=== PATIENT | male | born 1955 | race Caucasian/White ===

== ENCOUNTER → 2017-01-14 | Outpatient (CLI) | payer BC ==
--- NOTE | 2017-01-14 11:40 | MR ---
MR lumbar spine wo/w con multiple myeloma , back pain MultiHance Multiplanar, multiecho imaging of the lumbar spine was obtained with and without intravenous administ ration of 15 cc of MultiHance on a 3 Kelly magnet. REFERENCE: Previous study dated 04/28/2016. FINDINGS: Prevertebral soft tissues are normal. There is a severe wedge compression fracture of T11, unchanged from previous. There is a wedge compre ssion fracture of L1 which is wedged by approximately 50% and unchanged from previous. There is an in ferior endplate infraction of L4 and this is also unchanged from previous. There is approximately 5.4 mm of retropulsion at T11. No other retropulsion is seen. There are mild retrograde listhesis of L1 on L2 and L4-L5. Alignment is otherwise maintained. Cord signal is maintained. The conus ends normally at the level of the L1-2 disc. At T12-L1, the intervertebral foramina are well maintained. There is no significant compressive disco michael. There is mild degenerative change in the facets. At L1-2, the intervertebral foramina are well maintained. There is a diffuse disc displacement. This hypertrophic change and capsulitis within the facets. At L2-3, there is a diffuse disc displacement. There is mild, bilateral intervertebral foraminal narr owing. There is hypertrophic change and capsulitis within the facets. There is mild trefoiling of the thecal sac. At L3-4, there is mild, bilateral intervertebral foraminal narrowing. There is a diffuse disc displac ement. There is hypertrophic change and capsulitis within the facets. There is mild trefoiling of the thecal sac. At L4-5, there is a broad-based disc protrusion extending into both intervertebral foramina causing m oderate intervertebral foraminal narrowing bilaterally. There is hypertrophic change in the facets. T here is moderate central canal compromise. At L5-S1, the intervertebral foramina appear well maintained. There is a diffuse disc displacement wi th a small central component mildly deforming the thecal sac without definite neural compression. The re is hypertrophic change and capsulitis within the facets. IMPRESSION: 1. STABLE WEDGE COMPRESSION FRACTURES DESCRIBED. THERE IS NO ABNORMAL ENHANCEMENT IN THESE VERTEBR AL BODIES. 2. DIFFUSE DEGENERATIVE DISC DISEASE AND FACET ARTHROPATHY. 3. VARYING DEGREES OF CENTRAL CANAL COMPROMISE MOST MARKED AT L4-5. 4. MULTILEVEL INTERVERTEBRAL FORAMINAL NARROWING.
== END | disposition home or self-care (01) ==
LOC: RADMRIMAIN 07:53
PROVIDERS: ATTEND Internal Medicine Hematology & Oncology
DX: S32.010A Wedge compression fracture of first lumbar vertebra, initial encounter for closed fracture (principal); C90.00 Multiple myeloma not having achieved remission; M51.36 Other intervertebral disc degeneration, lumbar region; M99.73 Connective tissue and disc stenosis of intervertebral foramina of lumbar region; M46.96 Unspecified inflammatory spondylopathy, lumbar region
CPT/HCPCS: 72158; A9577

== ENCOUNTER → 2017-02-24 | Outpatient (CLI) | payer BC ==
--- NOTE | 2017-03-04 15:19 | P.ARTDOP ---
Arterial Doppler LOWER EXTREMITY ARTERIAL DOPPLER: DATE OF SERVICE: 02/24/2017 Reason for study: Right leg pain. Doppler waveforms: Multiphasic bilaterally throughout. Pulse volume recording: Normal configuration. Pressure gradients: None significant. Ankle-brachial indices: Greater than 1 on the right and one on the left. Toe pressures: 83 on the right, 83 on the left Impression: Normal study.
== END | disposition home or self-care (01) ==
LOC: RADUSWWP 13:03
PROVIDERS: ATTEND Internal Medicine Infectious Disease
DX: M79.604 Pain in right leg (principal)
CPT/HCPCS: 93923

== ENCOUNTER → 2017-03-05 | Outpatient (CLI) | payer BC ==
--- NOTE | 2017-03-05 20:56 | MR ---
EXAMINATION TYPE: MR thoracic spine wo con DATE OF EXAM: 03/05/2017 5:58 PM COMPARISON: 04/28/2016 HISTORY: Multiple Myeloma 2015, Upper Back and Middle Back Pain 1 year Multiplanar MultiSpin echo imaging of the thoracic spine was performed. Vertebral segments: Severe T11 at the logic compression fracture is again noted and appears essentially unchanged. Loss o f vertebral body height is greater than 90%. Mild bony retropulsion is again seen and is stable at 4 mm. Mild superior endplate compression fracture of T7 is unchanged with loss of height less than and 15%. Stable moderate L1 compression fracture. No evidence of bony retropulsion identified. Bone marro w signal is heterogenous throughout. There are lesions in noted the largest of which is seen at the T 9 segment and appears unchanged. No definite disease progression is identified with certainty at this time. Disc spaces: Moderate decreased signal and loss of height at multiple levels. No disc herniation or p rotrusion. Mild scattered disc bulging. No evidence for spinal stenosis. Spinal canal: No evidence for canal stenosis. No intrinsic or extrinsic lesion. Thoracic spinal cord: Thoracic spinal cord is of normal caliber and signal. Paraspinal soft tissues: No evidence for paraspinal mass. No destructive lesions seen. IMPRESSION: 1. Stable pathologic compression fractures at T11, T7 and L1. 2. Stable scattered lesions compatible with the provided history of multiple myeloma.
== END | disposition home or self-care (01) ==
LOC: RADMRIMAIN 17:13
PROVIDERS: ATTEND Orthopaedic Surgery
DX: S22.060A Wedge compression fracture of T7-T8 vertebra, initial encounter for closed fracture (principal); S22.080A Wedge compression fracture of T11-T12 vertebra, initial encounter for closed fracture; M89.8X0 Other specified disorders of bone, multiple sites
CPT/HCPCS: 72146

== ENCOUNTER 2018-03-08 20:41 | Inpatient (IN) | payer BC ==
[2018-03-08] MEDS ORDERED: NITROGLYCERIN OINT 1 INCH/GM PACKET TOPICAL STA (21:05)
[2018-03-08] MEDS ORDERED: ASPIRIN 81 MG PO STA (21:05)
[2018-03-08] MEDS ORDERED: SODIUM CHLORIDE 0.9% 1,000 ML IV STA (21:05)
[2018-03-08] MEDS ORDERED: MAG HYDROX/AL HYDROX/SIMETH 30 ML, HYOSCYAMINE ELIXIR 10 ML, CIMETIDINE HCL 300 MG, LID... PO STA ×4 (21:06)
[2018-03-08 21:25] LABS: Basophils % (A) 1 %; Eosinophils # (A) 0.4 k/uL (0-0.7); Eosinophils % (A) 9 %; HCT 34.4 % (39.0-53.0); HGB 11.1 gm/dL (13.0-17.5); Lymphocytes # (A) 1.6 k/uL (1.0-4.8); Lymphocytes % (A) 42 %; MCH 28.3 pg (25.0-35.0); MCHC 32.3 g/dL (31.0-37.0); MCV 87.5 fL (80.0-100.0); Mean Platelet Volume 7.3; Monocytes # (A) 0.3 k/uL (0-1.0); Monocytes % (A) 8 %; Neutrophils # (A) 1.5 k/uL (1.3-7.7); Neutrophils % (A) 39 %; Platelet Count 126 k/uL (150-450); RBC 3.93 m/uL (4.30-5.90); RDW 15.8 % (11.5-15.5); WBC 3.9 k/uL (3.8-10.6)
--- NOTE | 2018-03-08 21:29 | XR ---
EXAMINATION TYPE: XR chest 2V DATE OF EXAM: 03/08/2018 COMPARISON: 07/15/2016 HISTORY: Chest pain TECHNIQUE: Frontal and lateral views of the chest are obtained. FINDINGS: Heart and mediastinum are within normal limits. Lungs are clear. Diaphragm is normal. Ther e is anterior wedging of T11 vertebra with 50% loss of height. IMPRESSION: No active cardiopulmonary disease. Old T11 compression fracture. No change.
[2018-03-08 21:34] LABS: ALT 45 U/L (21-72); AST 73 U/L (17-59); Albumin 3.2 g/dL (3.5-5.0); Alkaline Phosphatase 70 U/L (38-126); Amylase 47 U/L (30-110); Anion Gap 10 mmol/L; Blood Urea Nitrogen 15 mg/dL (9-20); Calcium 8.2 mg/dL (8.4-10.2); Carbon Dioxide 26 mmol/L (22-30); Chloride 103 mmol/L (98-107); Glucose 100 mg/dL (74-99); Lipase 115 U/L (23-300); Magnesium 1.9 mg/dL (1.6-2.3); Potassium 3.3 mmol/L (3.5-5.1); Sodium 139 mmol/L (137-145); Total Bilirubin 0.7 mg/dL (0.2-1.3); Total Protein 5.3 g/dL (6.3-8.2)
--- NOTE | 2018-03-08 21:37 | ED ---
Chest Pain HPI - General Chief Complaint: Chest Pain Stated Complaint: Chest Pain Time Seen by Provider: 03/08/18 20:56 Source: patient Mode of arrival: ambulatory Limitations: no limitations - History of Present Illness Initial Comments: This 61-year-old white male presents with a complaint of some lower sternal chest/upper abdominal pain. He states that it is pressure-like in nature. He states that it just came on shortly prior to arrival. He relates to the nurses that he had some difficulty in breathing but denies any to myself. He denies any cough or fever. He denies any leg pain or swelling. He denies any history of DVT or PE. He denies any history of cardiac disease or myocardial infarction. He does relate that he has a history of multiple myeloma which is currently in remission. He did have a bone marrow transplant in the past. He sees Dr. Browning for this. He denies any other complaints or modifying factors. There is no radiation of the pain. - Related Data Home Medications Medication Instructions Recorded Confirmed Aspirin 325 mg PO DAILY 04/03/16 03/08/18 Calcium Carbonate [Calcium] 600 mg PO DAILY 07/23/16 03/08/18 Lenalidomide [Revlimid] 5 mg PO DAILY 02/05/17 03/08/18 oxyCODONE HCL [Oxyir] 5 mg PO Q6H PRN 02/05/17 03/08/18 Potassium Bicarbonate/Cit AC 25 meq PO TID 03/08/18 03/08/18 [Klor-Con 25 (Effer. Tab)] Allergies Allergy/AdvReac Type Severity Reaction Status Date / Time sulfamethoxazole AdvReac Rash/Hives Verified 03/08/18 21:17 [From Bactrim] trimethoprim [From Bactrim] AdvReac Rash/Hives Verified 03/08/18 21:17 Review of Systems ROS Statement: Those systems with pertinent positive or pertinent negative responses have been documented in the HPI. ROS Other: All systems not noted in ROS Statement are negative. Past Medical History Past Medical History: Cancer, Hyperlipidemia Additional Past Medical History / Comment(s): Hx. vertebral stress fx. shingles 2013, multiple myeloma-dx. 2015 finished chem jul 2016, stem cell transplant 09/03, wound rt heel History of Any Multi-Drug Resistant Organisms: None Reported Past Surgical History: Orthopedic Surgery Additional Past Surgical History / Comment(s): excision of uvular lesion(benign ) 2010, colonoscopy, dave knee arthroscopy, rt rotator cuff sx, moles removed from back(benign) Past Anesthesia/Blood Transfusion Reactions: No Reported Reaction Past Psychological History: No Psychological Hx Reported Smoking Status: Former smoker Past Alcohol Use History: None Reported Past Drug Use History: None Reported - Past Family History Father Family Medical History: Renal Disease Additional Family Medical History / Comment(s): aaa, Mother Family Medical History: No Reported History Additional Family Medical History / Comment(s): mom is healthy General Exam - General Exam Comments Initial Comments: GENERAL: The patient is well nourished and well hydrated. VITAL SIGNS: Heart rate, blood pressure, respiratory rate reviewed as recorded in nurse's notes. EYES: Pupils are round and reactive. Extraocular movements are intact. No conjunctival / lid redness or swelling. ENT: No external evidence of injury, swelling, or ecchymosis. Airway is patent. Throat is clear. NECK: Nontender. No swelling or evidence of injury. No subcutaneous emphysema. Trachea is midline. No thyroid mass. HEART: Regular rate and rhythm. Good peripheral pulses. LUNGS/CHEST: Breath sounds clear and equal bilaterally. No rales, rhonchi, or wheezes. No ecchymosis, subcutaneous emphysema, or tenderness. ABDOMEN: There is mild tenderness noted into the midepigastric region. No palpable masses or organomegaly. No peritoneal signs. No abdominal wall swelling or ecchymosis. EXTREMITIES: No extremity tenderness. Normal muscle tone and function. No thoracolumbar tenderness. NEUROLOGIC: Sensation is grossly intact. Cranial nerve exam reveals face is symmetrical, tongue is midline, speech is clear. SKIN: No abrasions or ecchymosis is noted. No induration or masses noted. PSYCHIATRIC: Alert and oriented. Appropriate behavior and judgment. Limitations: no limitations Course Vital Signs 03/08/18 03/08/18 03/08/18 20:42 21:21 21:32 Temperature 98.1 F Pulse Rate 91 50 L Respiratory 20 18 18 Rate Blood Pressure 128/70 126/76 O2 Sat by Pulse 100 Oximetry 03/08/18 03/08/18 22:48 23:36 Temperature Pulse Rate 52 L 55 L Respiratory 18 18 Rate Blood Pressure 139/68 126/75 O2 Sat by Pulse 99 100 Oximetry Chest Pain MDM - MDM The patient was seen and examined. All diagnostics are reviewed. An IV is established. He does have an EKG completed which shows a sinus bradycardia at a rate of 56. There is no acute ST elevation. There is some nonspecific ST-T wave changes in the anterolateral leads. There is a MI interval of 220, QRS duration of 90, and QTc interval 465. He does receive aspirin as well as some Nitropaste. The laboratory showed a mild hypokalemia and elevation of the d- dimer. The chest x-ray did not show any acute processes. The patient had a computed tomography scan of the thorax which did show some atelectasis but no evidence of pulmonary embolism. Is felt as though his current pain symptoms are much improved on recheck. Nevertheless, it is felt as though he would require admission to the hospital for further evaluation to rule out the possibility of acute coronary syndrome. Case will be discussed with internal medicine shortly. He will be admitted to Dr. Ferro as he has been admitted to him several times in the past. Disposition Clinical Impression: Chest pain, Midepigastric pain, History of multiple myeloma, Unstable angina pectoris, Atelectasis, Hypokalemia Disposition: ADMITTED IP TO THIS HOSP Condition: Fair Is patient prescribed a controlled substance at d/c from ED?: No Time of Disposition: 23:50 Decision Date: 03/08/18 Decision Time: 23:50
[2018-03-08 21:44] LABS: Creatine Kinase 126 U/L (55-170)
[2018-03-08 21:45] LABS: Partial Thromboplastin Time 24.9 sec (22.0-30.0)
[2018-03-08 21:53] LABS: D-Dimer 1.12 mg/L FEU (<0.60)
[2018-03-08] MEDS ORDERED: RX INFO: IV CONTRAST WAS GIVEN 1 EACH MISC MISCELLANE PRN (21:55)
[2018-03-08 21:58] LABS: Creatine Kinase MB 1.6 ng/mL (0.0-2.4); Troponin I <0.012 ng/mL (0.000-0.034)
[2018-03-08] MEDS ORDERED: POTASSIUM CHLORIDE ER 20 MEQ TAB.ER PO STA (22:10)
--- NOTE | 2018-03-08 23:15 | CT ---
EXAMINATION TYPE: CT angio chest DATE OF EXAM: 03/08/2018 10:32 PM COMPARISON: NONE HISTORY: Chest pain and elevated D-dimer. CT DLP: 327.5 mGycm Automated exposure control for dose reduction was used. CONTRAST: CTA scan of the thorax is performed with IV Contrast, patient injected with 70ml mL of Isovue 370, pu lmonary embolism protocol. There are 3-D post processed images.. FINDINGS: There is some subpleural interstitial density at the posterior lung bases. There is no pleural effusi on. There is no pericardial effusion. There is normal contrast opacification of the pulmonary arteries. I see no filling defect. There is n o evidence of aortic aneurysm or dissection. There is no mediastinal adenopathy. Heart size is normal . IMPRESSION: SUBPLEURAL INTERSTITIAL DENSITY AT THE POSTERIOR LUNG BASES PROBABLY DUE TO ATELECTASIS. NO EVIDENCE OF PULMONARY EMBOLISM. OLD T11 COMPRESSION FRACTURE NOTED. OLD T7 COMPRESSION FRACTURE. THESE ARE STA BLE COMPARED TO OLD MR SCAN OF 04/28/2016.
[2018-03-08] MEDS ORDERED: HEPARIN SODIUM,PORCINE 5,000 UNIT/ML 1 ML VIAL IV ONE (23:52)
[2018-03-08] MEDS ORDERED: NITROGLYCERIN SL TABS 0.4 MG TAB SUBLINGUAL PRN (23:52)
[2018-03-08] MEDS ORDERED: HEPARIN SODIUM,PORCINE 5,000 UNIT/ML 1 ML VIAL IV PRN (23:52)
[2018-03-09] MEDS: NITROGLYCERIN OINT 1 INCH/GM PACKET TOPICAL SCH ×2 (00:24→06:57)
[2018-03-09] MEDS ORDERED: HEPARIN SODIUM,PORCINE/D5W PMX 25,000 UNIT in DEXTROSE/WATER 1 500ML.BAG IV SCH (00:30)
[2018-03-09 03:47] LABS: Cholesterol 131 mg/dL (<200); HDL Cholesterol 45 mg/dL (40-60); LDL Cholesterol,Calculated 80 mg/dL (0-99); Triglycerides 31 mg/dL (<150)
[2018-03-09 03:59] LABS: Creatine Kinase 104 U/L (55-170)
[2018-03-09 04:13] LABS: Creatine Kinase MB 1.3 ng/mL (0.0-2.4); Troponin I <0.012 ng/mL (0.000-0.034)
[2018-03-09] MEDS: POTASSIUM BICARBONATE/CIT AC 20 MEQ TABLET.EFF PO SCH ×3 (08:50→20:46)
[2018-03-09] MEDS: Lenalidomide [Revlimid] 5 MG PO SCH (08:51)
[2018-03-09] MEDS: CALCIUM CARBONATE 500 MG CHEWABLE PO SCH (08:51)
[2018-03-09] MEDS ORDERED: ASPIRIN 325 MG TAB PO SCH (09:00)
[2018-03-09 10:35] LABS: Creatine Kinase MB 1.6 ng/mL (0.0-2.4); Troponin I 0.014 ng/mL (0.000-0.034)
--- NOTE | 2018-03-09 11:25 | ECHOF ---
Referral Reason:cp MEASUREMENTS -------- HEIGHT: 162.6 cm WEIGHT: 68.0 kg BP: IVSd: 0.9 cm (0.6 - 1.1) LVIDd: 4.6 cm (3.9 - 5.3) LVPWd: 1.0 cm (0.6 - 1.1) IVSs: 1.0 cm LVIDs: 3.6 cm LVPWs: 1.1 cm Ao Diam: 3.8 cm (2.0 - 3.7) AV Cusp: 2.0 cm (1.5 - 2.6) LA Diam: 2.9 cm (2.7 - 3.8) MV EXCURSION: 19.176 mm (> 18.000) MV EF SLOPE: 107 mm/s (70 - 150) EPSS: 0.7 cm MV E Keven: 0.54 m/s MV DecT: 208 ms MV A Keven: 0.49 m/s MV E/A Ratio: 1.10 RAP: 5.00 mmHg RVSP: 12.14 mmHg FINDINGS -------- Sinus rhythm. This was a technically good study. LV size, wall thickness and systolic function are normal, with an EF greater than 55%. The left garcia tricular size is normal. The right ventricle is normal in size. The left atrial size is normal. The right atrial size is normal. The aortic valve is trileaflet, and appears structurally normal. No aortic stenosis or regurgitation. Mild mitral regurgitation is present. Mild tricuspid regurgitation present. There is no evidence of pulmonary hypertension. The right v entricular systolic pressure, as measured by Doppler, is 12.14mmHg. There is no pulmonic regurgitation present. The aortic root size is normal. There is no pericardial effusion. CONCLUSIONS -------- 1. LV size, wall thickness and systolic function are normal, with an EF greater than 55%. 2. The left ventricular size is normal. 3. The left atrial size is normal. 4. The right atrial size is normal. 5. The aortic valve is trileaflet, and appears structurally normal. No aortic stenosis or regurgitati on. 6. Mild mitral regurgitation is present. 7. Mild tricuspid regurgitation present. 8. There is no evidence of pulmonary hypertension. 9. The right ventricular systolic pressure, as measured by Doppler, is 12.14mmHg. 10. There is no pulmonic regurgitation present. 11. The aortic root size is normal. 12. There is no pericardial effusion. [employer]ER [employer]ER SCIENCE: Farnaz Sullivan RDCS
--- NOTE | 2018-03-09 15:27 | P.CRDCN ---
History of Present Illness History of present illness: Mr. Paul is a pleasant 62-year-old male past medical history significant for dyslipidemia and multiple myeloma s/p stem cell transplant and chemotherapy. He finished his treatments in July 2016 and has been maintained on Revlimid since. He denies history of coronary artery disease. We have been asked to see him in consultation for chest pain. He states yesterday after waking from a nap he felt a burning sensation in his chest in the mid- sternal region He states the discomfort radiates across his upper abdomen and is sometimes burning and sometimes tightness. Denies radiation to the arm, back , neck or jaw. Denies associated shortness of breath, nausea, vomiting, dizziness, palpitations or diaphoresis. The symptoms persisted for approximately an hour prior to coming to ED and seemed to subside after arriving here and receiving a GI cocktail, nitropaste and aspirin. He has had no further symptoms of chest pain. EKG reveals sinus bradycardia with first degree AVB with ST depression in anterior leads. This ST abnormality is seen on an EKG from 2016 as well. Chest xray negative for an acute cardiopulmonary process. CT angios chest reveals subpleural interstitial density at the posterior lung bases probably due to atelectasis and no evidence of pulmonary embolism. Laboratory data reviewed, hemoglobin 11.1, platelets 126, d-dimer 1.12, potassium 3.3, magnesium 1.9, creatinine 0.9, cardiac enzymes negative 3, LDL 80, HDL 45, triglycerides 31, total cholesterol 131. Current cardiac medications include aspirin 325 mg daily. Other medications include potassium supplementation, oxycodone, Revlimid and calcium. Most recent echocardiogram performed 2016 reveals preserved left ventricular systolic function with ejection fraction 55-60%, mild aortic valve sclerosis without stenosis, mild MR and mild TR. Review of Systems At the time of my exam: CONSTITUTIONAL: Denies fever. Denies chills. EYES: Denies blurred vision. Denies vision changes. Denies eye pain. EARS, NOSE, MOUTH & THROAT: Denies headache. Denies sore throat. Denies ear pain. CARDIOVASCULAR: Denies chest pain. Denies shortness of breath. Denies orthopnea. Denies PND. Denies palpitations. RESPIRATORY: Denies cough. GASTROINTESTINAL: Denies abdominal pain. Denies diarrhea. Denies constipation. Denies nausea. Denies vomiting. MUSCULOSKELETAL: Denies myalgias. INTEGUMENTARY: Denies pruitis. Denies rash. NEUROLOGIC: Denies numbness. Denies tingling. Denies weakness. PSYCHIATRIC: Denies anxiety. Denies depression. ENDOCRINE: Denies fatigue. Denies weight change. Denies polydipsia. Denies polyurina. GENITOURINARY: Denies burning, hematuria or urgency with micturation. HEMATOLOGIC: Denies history of anemia. Denies bleeding. Past Medical History Past Medical History: Cancer, Hyperlipidemia Additional Past Medical History / Comment(s): Hx. vertebral stress fx. shingles 2013, multiple myeloma-dx. 2015 finished chem jul 2016, stem cell transplant 09/03, wound rt heel History of Any Multi-Drug Resistant Organisms: None Reported Past Surgical History: Orthopedic Surgery Additional Past Surgical History / Comment(s): excision of uvular lesion(benign ) 2009, colonoscopy, dave knee arthroscopy, rt rotator cuff sx, moles removed from back(benign) Past Anesthesia/Blood Transfusion Reactions: No Reported Reaction Past Psychological History: No Psychological Hx Reported Smoking Status: Former smoker Past Alcohol Use History: None Reported Past Drug Use History: None Reported - Past Family History Father Family Medical History: Renal Disease Additional Family Medical History / Comment(s): aaa, Mother Family Medical History: No Reported History Additional Family Medical History / Comment(s): mom is healthy Medications and Allergies Home Medications Medication Instructions Recorded Confirmed Type Aspirin 325 mg PO DAILY 04/03/16 03/08/18 History Calcium Carbonate [Calcium] 600 mg PO DAILY 07/23/16 03/08/18 History Lenalidomide [Revlimid] 5 mg PO DAILY 02/05/17 03/08/18 History oxyCODONE HCL [Oxyir] 5 mg PO Q6H PRN 02/05/17 03/08/18 History Potassium Bicarbonate/Cit AC 25 meq PO TID 03/08/18 03/08/18 History [Klor-Con 25 (Effer. Tab)] Allergies Allergy/AdvReac Type Severity Reaction Status Date / Time sulfamethoxazole AdvReac Rash/Hives Verified 03/08/18 21:17 [From Bactrim] trimethoprim [From Bactrim] AdvReac Rash/Hives Verified 03/08/18 21:17 Physical Exam Vitals: Vital Signs Temp Pulse Resp BP Pulse Ox 03/09/18 13:08 60 18 94/63 100 03/09/18 11:20 63 16 85/58 100 03/09/18 08:54 55 L 16 94/55 100 03/09/18 07:00 62 16 91/55 98 03/09/18 06:26 73 18 82/58 97 03/09/18 04:13 62 18 92/57 100 03/09/18 03:22 53 L 18 99/62 100 03/09/18 01:44 53 L 18 104/63 100 03/09/18 00:30 50 L 18 126/75 99 03/08/18 23:36 55 L 18 126/75 100 03/08/18 22:48 52 L 18 139/68 99 03/08/18 21:32 50 L 18 126/76 100 03/08/18 21:21 18 03/08/18 20:42 98.1 F 91 20 128/70 Intake and Output 03/08/18 03/09/18 03/09/18 22:59 06:59 14:59 Other: Weight 68.039 kg Blood pressure 94/63 heart rate 60 afebrile maintaining oxygen saturation on room air GENERAL: This is a 62-year-old male in no apparent distress at the time of my examination. Frail appearance. HEENT: Head is atraumatic, normocephalic. Pupils are equal, round. Sclerae anicteric. Conjunctivae are clear. Mucous membranes of the mouth are moist. Neck is supple. There is no jugular venous distention. No carotid bruit is heard. LUNGS: Clear to auscultation no wheezes, rales or rhonchi. No chest wall tenderness is noted on palpation or with deep breathing. HEART: Regular rate and rhythm without murmurs, rubs or gallops. S1 and S2 heard. ABDOMEN: Soft, nontender. Bowel sounds are heard. No organomegaly noted. EXTREMITIES: No evidence of peripheral edema and no calf tenderness noted. VASCULAR: Radial and dorsalis pedis pulses palpated, no evidence of clubbing. NEUROLOGIC: Patient is awake, alert and oriented x3. Results 03/08/18 21:00 03/08/18 21:00 Cardiac Enzymes 03/08/18 03/08/18 03/09/18 Range/Units 21:00 21:00 02:57 AST 73 H (17-59) U/L CK-MB (CK-2) 1.6 1.3 (0.0-2.4) ng/mL Troponin I <0.012 <0.012 (0.000-0.034) ng/mL 03/09/18 Range/Units 09:23 AST (17-59) U/L CK-MB (CK-2) 1.6 (0.0-2.4) ng/mL Troponin I 0.014 (0.000-0.034) ng/mL Coagulation 18 03/09/18 Range/Units 21:00 06:39 PT 10.0 (9.0-12.0) sec APTT 24.9 62.6 H (22.0-30.0) sec Lipids 03/09/18 Range/Units 02:57 Triglycerides 31 (<150) mg/dL Cholesterol 131 (<200) mg/dL HDL Cholesterol 45 (40-60) mg/dL CBC 03/08/18 Range/Units 21:00 WBC 3.9 (3.8-10.6) k/uL RBC 3.93 L (4.30-5.90) m/uL Hgb 11.1 L (13.0-17.5) gm/dL Hct 34.4 L (39.0-53.0) % Plt Count 126 L (150-450) k/uL Comprehensive Metabolic Panel 03/08/18 Range/Units 21:00 Sodium 139 (137-145) mmol/L Potassium 3.3 L (3.5-5.1) mmol/L Chloride 103 (98-107) mmol/L Carbon Dioxide 26 (22-30) mmol/L BUN 15 (9-20) mg/dL Creatinine 0.90 (0.66-1.25) mg/dL Glucose 100 H (74-99) mg/dL Calcium 8.2 L (8.4-10.2) mg/dL AST 73 H (17-59) U/L ALT 45 (21-72) U/L Alkaline Phosphatase 70 (38-126) U/L Total Protein 5.3 L (6.3-8.2) g/dL Albumin 3.2 L (3.5-5.0) g/dL Current Medications Generic Name Dose Route Start Last Admin Trade Name Freq PRN Reason Stop Dose Admin Aspirin 325 mg 03/09/18 09:00 03/09/18 08:51 Aspirin PO 325 mg DAILY NNAMDI Administration Calcium Carbonate/Glycine 500 mg 03/09/18 09:00 03/09/18 08:51 Tums PO 500 mg DAILY NNADMI Administration Heparin Sodium (Porcine) 0 unit 03/08/18 23:52 Heparin IV Q6HR PRN Low PTT Protocol Heparin Sodium/Dextrose 25,000 500 mls @ 16.32 mls/hr 03/09/18 00:30 00:29 unit/ IV Solution IV 12 units/kg/hr .Q24H NNAMDI 16.32 mls/hr Protocol Administration 12 UNITS/KG/HR Miscellaneous Information 1 each 03/08/18 21:55 03/08/18 22:00 Rx Info: Iv Contrast Was Given MISCELLANE 03/10/18 21:55 1 each DAILY PRN Administration Per Protocol Nitroglycerin 1 inch 03/09/18 00:00 03/09/18 06:57 Nitro-Bid Oint TOPICAL 1 inch Q6HR NNAMDI Administration Nitroglycerin 0.4 mg 03/08/18 23:52 Nitrostat SUBLINGUAL Q5M PRN Chest Pain Lenalidomide [ 5 mg 03/09/18 09:00 03/09/18 08:51 Revlimid] 5 Mg PO Not Given DAILY NNAMDI Oxycodone HCl 5 mg 03/08/18 23:55 03/09/18 13:18 Oxyir PO 5 mg Q6H PRN Administration Pain Potassium Bicarbonate 20 meq 03/09/18 09:00 03/09/18 08:50 K-Lyte PO Not Given TID NNAMDI Intake and Output 03/08/18 03/09/18 03/09/18 22:59 06:59 14:59 Other: Weight 68.039 kg 03/08/18 21:00 03/08/18 21:00 Assessment and Plan Assessment: ASSESSMENT 1. Chest pain, atypical. An acute coronary event has been ruled out with negative cardiac enzymes and no EKG evidence of acute ischemia. 2. History of multiple myeloma, maintained on revlimid. s/p stem cell transplant 3. Elevated d-dimer with negative CT of chest for PE 4. Hypokalemia on daily supplementation PLAN 2D echocardiogram and doppler study have been obtained and reviewed. An acute coronary event has been ruled out. Discontinue heparin infusion and nitropaste for hypotension. NPO after midnight for possible stress testing in the am. Ongoing telemetry monitoring and SL nitroglycerin for chest pain. Thank you kindly for this consultation. Nurse Practitioner note has been reviewed, I agree with a documented findings and plan of care. Patient was seen and examined.
[2018-03-09] MEDS: ASPIRIN 81 MG PO SCH (18:03)
--- NOTE | 2018-03-09 18:53 | HP ---
HISTORY AND PHYSICAL DATE OF ADMISSION: 03/08/2018 DATE OF SERVICE: 03/09/2018 PRESENTING COMPLAINT: Chest pain. HISTORY OF PRESENTING COMPLAINT: This is a very pleasant 62-year-old patient who is here with his family. He was diagnosed with multiple myeloma in 2016. Patient did get treated with chemotherapy and that finished in July 2016. Patient is on Revlimid. Patient normally uses a walker to get about. Patient does have neuropathy from treatment as well as chronic low back pain and vertebral fracture. He also has hyperlipidemia. Patient started having pain in the lower chest, localized; felt like a tightness and dullness. It lasted for a good 2 to 3 hours and then it ebbed away. There was no shortness of breath, no dizziness, lightheadedness. No radiation. No perspiration. Because of concern about a cardiac cause, patient decided to come in. No prior cardiac history. REVIEW OF SYSTEMS: CONSTITUTIONAL: None. HEENT: None. RESPIRATORY: None. CARDIOVASCULAR: As above. GASTROINTESTINAL: Mild heartburn. GENITOURINARY: None. MUSCULOSKELETAL: Aches and pains in different joints, especially lower back. DERMATOLOGICAL: None. HEMATOLOGICAL: None. LYMPHATICS: None. PSYCHIATRY: None. NEUROLOGICAL: Numbness and tingling in the feet. PAST MEDICAL HISTORY: 1. Multiple myeloma. 2. Hyperlipidemia. 3. Vertebral fracture. 4. Peripheral neuropathy. PAST SURGICAL HISTORY: 1. Excision of uvula. 2. Bilateral knee arthroscopy. 3. Right rotator cuff surgery. 4. Mole removed from the back. 5. Stem cell transplant in 2016. SOCIAL HISTORY: Lives with his Blossom and 2 sons. 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 Patient smoked for 10 years, stopped at the age of 27. Did smoke marijuana in the '70s. FAMILY HISTORY: Renal disease and abdominal aortic aneurysm. HOME MEDICATIONS: 1. Potassium 20 mEq p.o. t.i.d. 2. Oxycodone 5 mg q.6 p.r.n. 3. Revlimid 5 mg p.o. daily. 4. Calcium 600 mg p.o. daily. 5. Aspirin 325 p.o. daily. ALLERGIES: BACTRIM. PHYSICAL EXAMINATION: Temperature 98.1, pulse 91, respiration 20, blood pressure 128/70, pulse ox 100% on 2 L. GENERAL APPEARANCE: Thin build. Sitting up on bed. Comfortable. EYES: Pupils equal. Conjunctivae normal. HEENT: External appearance of nose and ears normal. Oral cavity normal. NECK: JVD not raised. Mass not palpable. RESPIRATORY: Effort normal. Lungs are clear. CARDIOVASCULAR: First and second sounds normal. No edema. ABDOMEN: Soft, non-tender. Liver and spleen not palpable. LYMPHATIC: No lymph node palpable in neck or axillae. PSYCHIATRY: Alert and oriented x3. Mood and affect normal. NEUROLOGICAL: Pupils equal.. Cranial nerves grossly intact. Power and sensation grossly intact, though patient has some decreased sensation in the feet. Patient does use a walker at baseline. INVESTIGATIONS: White count 3.9, hemoglobin 11.1, platelets 126, potassium 3.3. BUN and creatinine are normal. Troponin x3 negative. EKG shows some slight ST-segment changes in V2 to V5 and some flipped T-waves in inferior leads. ASSESSMENT: 1. Anterior chest wall pain. Rule out a cardiac cause in a patient who is on Revlimid. 2. Multiple myeloma, currently in remission. 3. Hyperlipidemia. 4. Chronic gait dysfunction; uses a walker. 5. Peripheral neuropathy from side effect of medications. 6. Osteoarthritis. PLAN: Cardiology was consulted, who ordered a 2-D echocardiogram that showed EF of 55%. There was no wall motion abnormality. The plan is to proceed with a stress test tomorrow. Care was discussed with the patient and family at the bedside. MILTONL / TRINIDADN: [id number] /
[2018-03-10] MEDS ORDERED: REGADENOSON 0.4 MG/5 ML SYRINGE IV ONE (08:06)
[2018-03-10] MEDS ORDERED: AMINOPHYLLINE 500 MG/20 ML VIAL IV PRN (08:06)
--- NOTE | 2018-03-10 10:56 | P.PN ---
Subjective Mr. Paul is a pleasant 62-year-old male past medical history significant for dyslipidemia and multiple myeloma s/p stem cell transplant and chemotherapy. He finished his treatments in July 2016 and has been maintained on Revlimid since. He denies history of coronary artery disease. We have been asked to see him in consultation for chest pain. He states yesterday after waking from a nap he felt a burning sensation in his chest in the mid- sternal region He states the discomfort radiates across his upper abdomen and is sometimes burning and sometimes tightness. Denies radiation to the arm, back , neck or jaw. Denies associated shortness of breath, nausea, vomiting, dizziness, palpitations or diaphoresis. The symptoms persisted for approximately an hour prior to coming to ED and seemed to subside after arriving here and receiving a GI cocktail, nitropaste and aspirin. He has had no further symptoms of chest pain. EKG reveals sinus bradycardia with first degree AVB with ST depression in anterior leads. This ST abnormality is seen on an EKG from 2016 as well. Chest xray negative for an acute cardiopulmonary process. CT angios chest reveals subpleural interstitial density at the posterior lung bases probably due to atelectasis and no evidence of pulmonary embolism. Laboratory data reviewed, hemoglobin 11.1, platelets 126, d-dimer 1.12, potassium 3.3, magnesium 1.9, creatinine 0.9, cardiac enzymes negative 3, LDL 80, HDL 45, triglycerides 31, total cholesterol 131. Current cardiac medications include aspirin 325 mg daily. Other medications include potassium supplementation, oxycodone, Revlimid and calcium. Most recent echocardiogram performed 2016 reveals preserved left ventricular systolic function with ejection fraction 55-60%, mild aortic valve sclerosis without stenosis, mild MR and mild TR. 03/10/2018 Mr. Paul is seen and examined in no acute distress. He denies any further symptoms of chest discomfort. Blood pressure 118/69 heart rate 71 afebrile and maintaining oxygen saturation on room air. An acute coronary event has been ruled out. Objective - Vital Signs Vital signs: Vital Signs Temp 98.4 F 03/10/18 08:00 Pulse 71 03/10/18 08:00 Resp 18 03/10/18 08:00 BP 118/69 03/10/18 08:00 Pulse Ox 96 03/10/18 08:00 Intake & Output 03/09/18 03/10/18 03/10/18 18:59 06:59 18:59 Weight 73 kg Other: Voiding Method Toilet Toilet # Voids 2 1 - Exam GENERAL: Well-appearing, well-nourished and in no acute distress. NECK: Supple without JVD or thyromegaly. LUNGS: Breath sounds clear to auscultation bilaterally. Respiration equal and unlabored. No wheezes, rales or rhonchi. HEART: Regular rate and rhythm without murmurs, rubs or gallops. S1 and S2 heard. EXTREMITIES: Normal range of motion, no edema. No clubbing or cyanosis. Peripheral pulses intact and strong. - Labs CBC & Chem 7: 03/08/18 21:00 03/08/18 21:00 Assessment and Plan Assessment: ASSESSMENT 1. Chest pain, atypical. An acute coronary event has been ruled out with negative cardiac enzymes and no EKG evidence of acute ischemia. 2. History of multiple myeloma, maintained on revlimid. s/p stem cell transplant 3. Elevated d-dimer with negative CT of chest for PE 4. Hypokalemia on daily supplementation PLAN Perform Lexiscan stress test to assess for reversible cardiac ischemia. If this is negative he is stable from a cardiac perspective. Follow up with Dr. Ellis in 2-3 weeks. Nurse Practitioner note has been reviewed, I agree with a documented findings and plan of care. Patient was seen and examined.
[2018-03-10] MEDS: ASPIRIN 81 MG PO SCH (11:01)
[2018-03-10] MEDS: POTASSIUM BICARBONATE/CIT AC 20 MEQ TABLET.EFF PO SCH ×3 (11:01→21:27)
[2018-03-10] MEDS: CALCIUM CARBONATE 500 MG CHEWABLE PO SCH (11:01)
[2018-03-10] MEDS: Lenalidomide [Revlimid] 5 MG PO SCH (11:16)
--- NOTE | 2018-03-10 11:47 | NM ---
EXAMINATION TYPE: NM stress lexiscan cardiolite DATE OF EXAM: 03/10/2018 COMPARISON: NONE HISTORY: Chest pain TECHNIQUE: After the intravenous administration of 10.3 mCi Tc 99m Sestamibi - Cardiolite resting SP ECT images acquired 45 minutes post injection. The patient received 0.4mg Lexiscan, 26.7 mCi Tc 99m Sestamibi - Stress images obtained [address] injection FINDINGS: Review of stress and rest SPECT images demonstrates decreased radio pharmaceutical uptake on stress a nd rest images along the inferolateral left ventricle, the lateral ventricles show some decreased rad iopharmaceutical uptake on stress as compared to rest images. Gated analysis shows normal wall motion with an estimated left ventricular ejection fraction of 68 %. IMPRESSION: Findings suggest pharmacologically induced left ventricular myocardial ischemia, possible prior infar ct as described. Consider echocardiographic correlation for elevated ejection fraction.
[2018-03-10] MEDS ORDERED: ALPRAZolam 0.25 MG TAB PO PRN (12:16)
[2018-03-10] MEDS ORDERED: SODIUM CHLORIDE 0.9% 1,000 ML in EMPTY BAG 1 BAG IV ONE (12:16)
[2018-03-10] MEDS ORDERED: ALPRAZolam 0.5 MG TAB PO PRN (12:16)
--- NOTE | 2018-03-10 12:40 | EST ---
EXERCISE STRESS DATE OF SERVICE: 03/10/2018 AGE: 62 SEX: Male HT: 5'11" WT: 155 pounds PROTOCOL: Lexiscan Cardiolite STAGE: DURATION OF EXERCISE: HEART RATE REST: 59 BLOOD PRESSURE REST: 107/82 MAXIMUM HEART RATE ACHIEVED: 84 MAXIMUM BLOOD PRESSURE: 119/77 85% MPHR: 133 100% MPHR: 157 METS: INDICATION: Chest pain. CLINICAL INFORMATION: STRESS DATA: Pretesting physical examination showed a heart rate of 59, pressure is 107/82 mmHg. Baseline EKG showed sinus mechanism. A 0.4 mg of Lexiscan was given to the patient over 15 seconds per protocol. Max heart rate was 84 beats per minute and maximum pressure was 119/77 mmHg. Clinically the patient did not have symptoms of any chest pain or discomfort and the EKG did not show any ischemic changes. CONCLUSION: 1. Nondiagnostic electrocardiogram stress testing in response to Lexiscan. 2. Please follow up on the Cardiolite portion on separate report from radiology department. MMODL / IJN: [id number] /
--- NOTE | 2018-03-10 14:31 | P.PN ---
Subjective Lexiscan stress was positive for possible reversible cardiac ischemia. We recommend cardiac catheterization be performed to further evaluate. I have discussed the risks, benefits and alternative therapies for the above-mentioned procedure and for both sedation/analgesia as well as necessary blood product administration, if indicated, as they pertain to this patient. The patient has indicated understanding and acceptance of the risks and procedures discussed. Questions have been answered appropriately and he is agreeable to move forward with above stated procedure. Case has been boarded and he will be NPO after midnight. Objective - Vital Signs Vital signs: Vital Signs Temp 97.8 F 03/10/18 12:00 Pulse 57 L 03/10/18 12:00 Resp 16 03/10/18 12:00 BP 108/74 03/10/18 12:00 Pulse Ox 100 03/10/18 12:00 Intake & Output 03/09/18 03/10/18 03/10/18 18:59 06:59 18:59 Weight 73 kg Other: Voiding Method Toilet Toilet # Voids 2 1 - Labs CBC & Chem 7: 03/08/18 21:00 03/10/18 11:43
--- NOTE | 2018-03-11 05:37 | PN ---
PROGRESS NOTE DATE OF SERVICE: 03/10/2018 PRESENTING COMPLAINT: Chest pain. INTERVAL HISTORY: This patient presented with chest pain. Today had a stress test that has come back positive. No further chest pain. Awaiting a cardiac cath. Comfortable. at the bedside. REVIEW OF SYSTEMS: Review of system done for constitutional, cardiovascular, GI, pulmonary; relevant findings as above. CURRENT MEDICATIONS: Current medications are reviewed that include aspirin, Lipitor. PHYSICAL EXAMINATION: On examination, temperature 97.9, pulse 63, respiratory 18, blood pressure 112/71, pulse ox 100% on room air. GENERAL APPEARANCE: Sitting up, comfortable. EYES: Pupils equal. Conjunctivae normal. HEENT: External appearance of the nose and ears normal. Oral cavity normal. NECK: JVD not raised. Mass not palpable. RESPIRATORY: Effort normal. LUNGS: Clear. CARDIOVASCULAR: First and second sounds normal. No edema. ABDOMEN: Soft, nontender. Liver and spleen not palpable. PSYCHIATRY: Alert and oriented x3. Mood and affect normal. INVESTIGATIONS: LDL 80. Nuclear stress test positive. ASSESSMENT: 1. Anterior chest wall pain with a positive nuclear stress test. 2. Multiple myeloma, currently in remission. 3. Hyperlipidemia. 4. Chronic gait dysfunction, uses a walker. 5. Peripheral neuropathy from side effects of medications. 6. Osteoarthritis. PLAN: Await cardiac catheterization. Care was discussed with the patient and . MMODL / IJN: [id number] /
[2018-03-11] MEDS ORDERED: ASPIRIN 325 MG TAB PO ONE (06:00)
[2018-03-11] MEDS ORDERED: ATORVASTATIN 80 MG TAB PO ONE (06:00)
[2018-03-11 07:59] LABS: Anion Gap 9 mmol/L; Blood Urea Nitrogen 10 mg/dL (9-20); Calcium 8.3 mg/dL (8.4-10.2); Carbon Dioxide 24 mmol/L (22-30); Chloride 104 mmol/L (98-107); Glucose 79 mg/dL (74-99); Potassium 4.4 mmol/L (3.5-5.1); Sodium 137 mmol/L (137-145)
[2018-03-11] MEDS ORDERED: MIDAZOLAM 2 MG/2 ML VIAL ONE (11:45)
[2018-03-11] MEDS ORDERED: HEPARIN SODIUM 1,000 UN/ML (10ML VL) ONE (11:45)
[2018-03-11] MEDS ORDERED: LIDOCAINE 2% INJ 20 MG/ML (20 ML MDV) ONE (11:45)
[2018-03-11] MEDS ORDERED: VERAPAMIL 2.5 MG/ML 2 ML AMP ONE (11:45)
[2018-03-11] MEDS ORDERED: IV FLUID CONTINUATION 1,000 ML IV ONE (12:15)
[2018-03-11] MEDS ORDERED: MIDAZOLAM 2 MG/2 ML VIAL IV ONE (12:20)
[2018-03-11] MEDS ORDERED: LIDOCAINE 2% INJ 20 MG/ML SQ ONE (12:26)
[2018-03-11] MEDS: VERAPAMIL SYRINGE (5 MG/10 ML) INTRAARTER ONE ×2 (12:27→12:34)
[2018-03-11] MEDS ORDERED: HEPARIN SODIUM 1,000 UN/ML (10ML VL) IV ONE (12:29)
[2018-03-11] MEDS ORDERED: IOPAMIDOL-370 125ML BTL INJ ONE (12:34)
[2018-03-11] MEDS ORDERED: RX INFO: IV CONTRAST WAS GIVEN 1 EACH MISC MISCELLANE PRN (12:38)
[2018-03-11] MEDS ORDERED: SODIUM CHLORIDE 0.9% 1,000 ML IV SCH (12:45)
[2018-03-11 12:52] VITALS: RESP 16; TEMP 97.7
[2018-03-11] MEDS: POTASSIUM BICARBONATE/CIT AC 20 MEQ TABLET.EFF PO SCH ×2 (12:59→17:22)
[2018-03-11] MEDS: Lenalidomide [Revlimid] 5 MG PO SCH (12:59)
--- NOTE | 2018-03-11 13:11 | CC ---
CARDIAC CATHETERIZATION REPORT DATE OF SERVICE: 03/11/2018 PERFORMING PHYSICIAN: Keith Ellis MD, apartment groundskeeper. PROCEDURE PERFORMED: 1. Selective right and left coronary angiogram. 2. Left heart catheterization. INDICATION: This is a pleasant 62-year-old gentleman who was admitted to the hospital with chest discomfort and underwent myocardial perfusion imaging stress test and that showed inferolateral ischemia. Because of that, a heart catheterization was recommended. APPROACH: Right radial artery. COMPLICATION: None. LEVEL OF SEDATION: Moderate sedation with length of 10 minutes. PROCEDURE DESCRIPTION: After obtaining an informed consent, the patient was brought to cardiac center medical and lab director. The right radial artery was cannulated using micropuncture technique and a micropuncture wire passed easily then I placed a 6-Korean sheath in the right radial artery. After that, I did selective right and left coronary angiogram using JR4 and JL3.5 catheters. Left heart catheterization was performed using the JR4 catheter, which flipped into the LV then I did pullback across aortic valve. The procedure was completed without any complication. SELECTIVE CORONARY ANGIOGRAM: 1. The RCA is a large caliber vessel and it is a dominant vessel and it is angiographically normal. 2. The left main is angiographically normal. It bifurcates into the left circumflex and left anterior descending artery. 3. The circumflex is a large caliber vessel and it is a nondominant vessel. The left circumflex is angiographically normal. 4. The LAD; the proximal LAD appeared to have eccentric lesion in the range of 30%. The mid LAD has mild disease only and the LAD distally is angiographically normal. HEMODYNAMICS: The left ventricular end-diastolic pressure was 10 mmHg and no gradient was identified across the aortic valve. CONCLUSION: 1. Mild disease involving the proximal left anterior descending artery, appeared to be in the range of 30%. 2. Normal left ventricular end-diastolic pressure. POSTPROCEDURE MANAGEMENT: Medical treatment and follow up with the patient. MMODL / IJN: [id number] /
[2018-03-11] MEDS: CALCIUM CARBONATE 500 MG CHEWABLE PO SCH (14:00)
[2018-03-11 16:01] VITALS: BP 95/59; PULSE 61
--- NOTE | 2018-03-11 22:50 | DS ---
DISCHARGE SUMMARY DATE OF ADMISSION: 03/10/2018. DATE OF DISCHARGE: 03/11/2018 FINAL DIAGNOSES: 1. Anterior chest wall pain, possibly musculoskeletal. 2. Multiple myeloma, currently in remission. 3. Hyperlipidemia. 4. Chronic gait dysfunction uses a walker. 5. Peripheral neuropathy from the side effects of medications. 6. Secondary/primary osteoarthritis. HOSPITAL COURSE: This patient with multiple myeloma on Revlimid presented with chest pain, did have a stress test that showed some reversibility; hence, a cardiac catheterization was done that showed mild coronary artery disease with 30% lesions. The patient is already on aspirin. EXAM: Lungs are clear. CARDIOVASCULAR: First and second sounds normal. CONSULTATIONS: Dr. Ellis from Cardiology. DISCHARGE MEDICATIONS: 1. Aspirin 325 mg a day. 2. Calcium 600 mg a day. 3. Revlimid 5 mg p.o. daily. 4. Oxycodone 5 mg every 6 hours p.r.n. 5. Klor-Con 25 mg p.o. t.i.d. FOLLOW UP: With Dr. Ellis on 03/25/2018. Follow up with Dr. Browning in 1 week. Care was discussed the patient. MMODL / IJN: [id number] /
== END 2018-03-11 17:55 | disposition home or self-care (01) | DRG 287 ==
LOC: EC 20:41 → 3OBS 23:55 → OBSVTOIN 03-10 13:45
PROVIDERS: ADMIT Hospitalist; ATTEND Hospitalist
PROC: B211YZZ Fluoroscopy of Multiple Coronary Arteries using Other Contrast (ICD-10-PCS; 2018-03-11)
PROC: 4A023N7 Measurement of Cardiac Sampling and Pressure, Left Heart, Percutaneous Approach (ICD-10-PCS; principal; 2018-03-11 12:00)
DX: R07.89 Other chest pain (principal); C90.01 Multiple myeloma in remission; Z94.84 Stem cells transplant status; J98.11 Atelectasis; I08.3 Combined rheumatic disorders of mitral, aortic and tricuspid valves; G62.0 Drug-induced polyneuropathy; T50.905A Adverse effect of unspecified drugs, medicaments and biological substances, initial encounter; E87.6 Hypokalemia; E78.5 Hyperlipidemia, unspecified; R26.9 Unspecified abnormalities of gait and mobility; M19.91 Primary osteoarthritis, unspecified site; I44.0 Atrioventricular block, first degree; I25.10 Atherosclerotic heart disease of native coronary artery without angina pectoris; G89.29 Other chronic pain; M54.5 Low back pain; Z79.82 Long term (current) use of aspirin; Z79.899 Other long term (current) drug therapy; Z92.21 Personal history of antineoplastic chemotherapy; Z86.19 Personal history of other infectious and parasitic diseases; Z87.312 Personal history of (healed) stress fracture; Z87.891 Personal history of nicotine dependence; Z88.2 Allergy status to sulfonamides; Z84.1 Family history of disorders of kidney and ureter; Z82.49 Family history of ischemic heart disease and other diseases of the circulatory system
CPT/HCPCS: 36415; 71046; 71275; 78452; 80048; 80053; 80061; 82150; 82550; 82553; 83690; 83735; 84132; 84484; 85025; 85379; 85610; 85730; 93005; 93017; 93306; 93458; 96361; 96374; 99285

== ENCOUNTER 2019-01-11 21:38 | Observation (INO) | payer MEDICARE ==
[2019-01-11 22:19] LABS: Basophils % (A) 1 %; Eosinophils # (A) 0.4 k/uL (0-0.7); Eosinophils % (A) 13 %; HCT 40.2 % (39.0-53.0); HGB 13.1 gm/dL (13.0-17.5); Hypochromasia Slight; Lymphocytes # (A) 1.6 k/uL (1.0-4.8); Lymphocytes % (A) 56 %; MCH 29.3 pg (25.0-35.0); MCHC 32.5 g/dL (31.0-37.0); MCV 90.2 fL (80.0-100.0); Mean Platelet Volume 7.6; Monocytes # (A) 0.2 k/uL (0-1.0); Monocytes % (A) 7 %; Neutrophils # (A) 0.6 k/uL (1.3-7.7); Neutrophils % (A) 20 %; Platelet Count 144 k/uL (150-450); RBC 4.45 m/uL (4.30-5.90); RDW 15.5 % (11.5-15.5); WBC 2.8 k/uL (3.8-10.6)
--- NOTE | 2019-01-11 22:20 | XR ---
EXAM: XR Chest, 2 Views CLINICAL HISTORY: Chest pain TECHNIQUE: Frontal and lateral views of the chest. COMPARISON: Chest x-ray dated 03/08/2018 FINDINGS: Lungs: Unremarkable. No consolidation. Pleural space: Unremarkable. No pneumothorax. Heart: Unremarkable. No cardiomegaly. Mediastinum: Unremarkable. Bones/joints: Unremarkable. IMPRESSION: Normal chest x-rays.
--- NOTE | 2019-01-11 22:23 | ED ---
Chest Pain HPI - General Chief Complaint: Chest Pain Stated Complaint: Chest pain Time Seen by Provider: 01/11/19 22:04 Source: patient Mode of arrival: wheelchair Limitations: no limitations - History of Present Illness Initial Comments: Hernan is a 63-year-old gentleman with a past medical history of multiple myeloma who presents the emergency department today for evaluation of sudden onset of retrosternal chest pressure lightheadedness and diaphoresis. Patient reports that around 8:30 PM he developed this chest pressure a be related to his heart so he chewed on to full dose aspirin the discomfort persisted for approximately 90 minutes which prompted him come to the ER for evaluation. Patient reports that the discomfort improved slightly with aspirin however it is persistent. Patient was admitted last February 2018 for cardiac evaluation which time he had multiple tests including a cardiac catheterization which revealed 20% blockage of some of his vessels but nothing significant and he d did not get any stents placed. Patient is on daily aspirin. The patient has no history of hypertension or hyperlipidemia he has not diabetic. He is not aware of any significant family cardiac history. - Related Data Home Medications Medication Instructions Recorded Confirmed Aspirin 325 mg PO DAILY 04/03/16 01/11/19 Calcium Carbonate [Calcium] 600 mg PO DAILY 07/23/16 01/11/19 Lenalidomide [Revlimid] 5 mg PO DAILY 02/05/17 01/11/19 oxyCODONE HCL [OxyIR] 5 mg PO Q6H PRN 02/05/17 01/11/19 Potassium Bicarbonate/Cit AC 25 meq PO DAILY 03/08/18 01/11/19 [Klor-Con 25 (Effer. Tab)] Allergies Allergy/AdvReac Type Severity Reaction Status Date / Time sulfamethoxazole AdvReac Rash/Hives Verified 01/11/19 22:20 [From Bactrim] trimethoprim [From Bactrim] AdvReac Rash/Hives Verified 01/11/19 22:20 Review of Systems ROS Statement: Those systems with pertinent positive or pertinent negative responses have been documented in the HPI. ROS Other: All systems not noted in ROS Statement are negative. EKG Findings - EKG Comments: EKG Findings:: KG obtained at 2154, rate is 55 there is a P-wave before each QRS, rhythm is sinus bradycardia, there is a normal axis, there are normal intervals IN 200, QRS 100, QTC 434 there are no acute ST elevations or depressions no evidence of acute ischemia or infarction Past Medical History Past Medical History: Cancer, Hyperlipidemia Additional Past Medical History / Comment(s): Hx. vertebral stress fx. shingles 2013, multiple myeloma-dx. 2015 finished chem jul 2016, stem cell transplant 09/03, wound rt heel- healed, neuropathy, chronic back, knee and lt hip pain, History of Any Multi-Drug Resistant Organisms: None Reported Past Surgical History: Orthopedic Surgery Additional Past Surgical History / Comment(s): excision of uvular lesion(benign) 2009, colonoscopy, dave knee arthroscopy, rt rotator cuff sx, moles removed from back(benign)bone maroow aspiration/bx,stem cell transplant 2015, Past Anesthesia/Blood Transfusion Reactions: No Reported Reaction Past Psychological History: No Psychological Hx Reported Smoking Status: Former smoker Past Alcohol Use History: None Reported Past Drug Use History: None Reported - Past Family History Father Family Medical History: Renal Disease Additional Family Medical History / Comment(s): aaa, Mother Family Medical History: No Reported History Additional Family Medical History / Comment(s): mom is healthy General Exam - General Exam Comments Initial Comments: Physical Exam GENERAL: Patient is well-developed and well-nourished. Patient is nontoxic and well- hydrated and is in no distress. HENT: Normocephalic, Atraumatic. EYES: PERRL, EOMI PULMONARY: Unlabored respirations. No audible rales rhonchi or wheezing was noted. CARDIOVASCULAR: There is a regular rate and rhythm without any murmurs gallops or rubs. ABDOMEN: Soft and nontender with normal bowel sounds. SKIN: Skin is clear with no lesions or rashes and otherwise unremarkable. : Deferred NEUROLOGIC: Patient is alert and oriented x3. Moving all extremities spontaneously MUSCULOSKELETAL: Normal extremities with adequate strength and full range of motion. No lower extremity swelling or edema. No calf tenderness. PSYCHIATRIC: Normal psychiatric evaluation. Limitations: no limitations Limitations: no limitations Course Vital Signs 01/11/19 01/11/19 01/11/19 21:46 22:14 23:03 Temperature 98.2 F Pulse Rate 56 L 58 L Pulse Rate [ 56 L Clerk Entry Level ] Respiratory 18 19 Rate Blood Pressure 132/79 124/80 O2 Sat by Pulse 100 11 L Oximetry Chest Pain MDM - Core Measures AMI Core Measures Followed: Yes - MDM Patient was seen and evaluated history was obtained from patient and at bedside This 63-year-old gentleman with a history of multiple myeloma presenting with chest pain that sounds suspicious for cardiac etiology EKG is nonischemic with bradycardia Labs were unremarkable HEART score 3 - suspicious history and age Patient with persistent chest pain after an initial dose of nitro, nitro paste was ordered Given the patient's age and the suspicious nature of the chest pain I do feel he would warrant further evaluation by cardiology. Patient is agreeable to plan for remaining in the hospital observation unit for further cardiology evalu ation. Admission orders repeat trending tropes and a consult cardiology were ordered. Disposition Clinical Impression: Chest pain Disposition: ADMITTED IP TO THIS HOSP Condition: Stable Referrals: Elkin Pierson MD [Primary Care Provider] - 1-2 days
[2019-01-11 22:32] LABS: Albumin 3.5 g/dL (3.5-5.0); Calcium 8.7 mg/dL (8.4-10.2); Magnesium 2.2 mg/dL (1.6-2.3); Potassium 3.7 mmol/L (3.5-5.1); Total Bilirubin 0.4 mg/dL (0.2-1.3); Total Protein 6.6 g/dL (6.3-8.2)
[2019-01-11 22:38] LABS: INR 0.8 (<1.2); Prothrombin Time 9.3 sec (9.0-12.0)
[2019-01-11 22:44] LABS: Partial Thromboplastin Time 21.5 sec (22.0-30.0)
[2019-01-11] MEDS ORDERED: NITROGLYCERIN SL TABS 0.4 MG TAB SUBLINGUAL STA (23:00)
[2019-01-11] MEDS ORDERED: MORPHINE SULFATE 4 MG/ML SYRINGE IVP STA (23:16)
[2019-01-11] MEDS ORDERED: NITROGLYCERIN OINT 1 INCH/GM PACKET TOPICAL STA (23:16)
[2019-01-11] MEDS ORDERED: NITROGLYCERIN SL TABS 0.4 MG TAB SUBLINGUAL PRN (23:26)
[2019-01-12] MEDS: NITROGLYCERIN OINT 1 INCH/GM PACKET TOPICAL SCH ×2 (01:17→05:58)
[2019-01-12 03:00] LABS: Cholesterol 148 mg/dL (<200); HDL Cholesterol 54 mg/dL (40-60); LDL Cholesterol,Calculated 74 mg/dL (0-99); Triglycerides 102 mg/dL (<150)
[2019-01-12 07:50] VITALS: RESP 18
[2019-01-12] MEDS ORDERED: ASPIRIN 325 MG TAB PO SCH (09:00)
[2019-01-12] MEDS ORDERED: ATORVASTATIN 40 MG TAB PO SCH (10:00)
--- NOTE | 2019-01-12 10:46 | US ---
EXAMINATION TYPE: US gallbladder DATE OF EXAM: 01/12/2019 COMPARISON: NONE CLINICAL HISTORY: epi pain. Epigastric pain x 1 day. EXAM MEASUREMENTS: Liver Length: 15.1 cm Gallbladder Wall: 0.26 cm CBD: 0.33 cm Right Kidney: 8.8 x 4.8 x 4.4 cm Pt gassy. Pancreas: Limited by overlying bowel gas Liver: wnl Gallbladder: Limited due to gas. Internal echoes visualized; ?sludge vs artifact. Echogenic areas seen near wall, larger: 0.4 x 0.4 x 0.2 cm Evidence for sonographic Francisco's sign: No CBD: wnl Right Kidney: No hydronephrosis or masses seen IMPRESSION: Limited exam is suggestive of gallbladder sludge and probable tiny gallbladder polyp.
--- NOTE | 2019-01-12 12:22 | P.CRDCN ---
History of Present Illness History of present illness: This is a pleasant 63-year-old male past medical history significant for multiple myeloma status post stem cell transplant, mild nonobstructive coronary artery disease as seen by cath performed in February 2018 and dyslipidemia. He follows in the office with Dr. Ellis. We've been asked to see him in consultation secondary to chest pain. He states last evening while he was sitting down on the couch watching television he started feeling a pressure sensation in the epigastric midsternal region as he describes as a balloon pumping up. There is no radiation through to the back, into the left precordial region, down the arm, into the neck or jaw. He denies associated shortness of breath, dizziness, nausea, vomiting or diaphoresis. He denies having palpitations, PND or orthopnea. He states the intensity of his discomfort has subsided but he continues to feel vague discomfort in the epigastric region that is not reproducible on palpation. EKG reveals sinus bradycardia heart rate of [address] or T wave abnormalities noted. Chest x-ray is negative for an acute cardiopulmonary process. Laboratory data reviewed, WBC 2.8, hemoglobin 13.1, platelets 144, sodium 137, potassium 3.7, creatinine 1.02, magnesium 2.2, cardiac enzymes negative 3, proBNP 286, LDL 74. He takes no daily cardiac medications. Most recent cardiac catheterization performed in February 2018 revealed a mild 30% plaque noted in the mid LAD otherwise normal coronary arteries. At the time of my exam: CONSTITUTIONAL: Denies fever. Denies chills. EYES: Denies blurred vision. Denies vision changes. Denies eye pain. EARS, NOSE, MOUTH & THROAT: Denies headache. Denies sore throat. Denies ear pain. CARDIOVASCULAR: Denies chest pain. Denies shortness of breath. Denies orthopnea. Denies PND. Denies palpitations. RESPIRATORY: Denies cough. GASTROINTESTINAL: Complains of epigastric discomfort. Denies abdominal pain. Denies diarrhea. Denies constipation. Denies nausea. Denies vomiting. MUSCULOSKELETAL: Denies myalgias. INTEGUMENTARY: Denies pruitis. Denies rash. NEUROLOGIC: Denies numbness. Denies tingling. Denies weakness. PSYCHIATRIC: Denies anxiety. Denies depression. ENDOCRINE: Denies fatigue. Denies weight change. Denies polydipsia. Denies polyurina. GENITOURINARY: Denies burning, hematuria or urgency with micturation. HEMATOLOGIC: Denies history of anemia. Denies bleeding. Blood pressure 104/68 heart rate 52 afebrile maintaining oxygen saturation on nasal cannula GENERAL: This is a 63-year-old male in no apparent distress at the time of my examination. HEENT: Head is atraumatic, normocephalic. Pupils are equal, round. Sclerae anicteric. Conjunctivae are clear. Mucous membranes of the mouth are moist. Neck is supple. There is no jugular venous distention. No carotid bruit is heard. LUNGS: Clear to auscultation no wheezes, rales or rhonchi. No chest wall tenderness is noted on palpation or with deep breathing. HEART: Regular rate and rhythm without murmurs, rubs or gallops. S1 and S2 heard. ABDOMEN: Soft, nontender. Bowel sounds are heard. No organomegaly noted. EXTREMITIES: No evidence of peripheral edema and no calf tenderness noted. VASCULAR: Radial and dorsalis pedis pulses palpated, no evidence of clubbing. NEUROLOGIC: Patient is awake, alert and oriented x3. ASSESSMENT Epigastric pain History of multiple myeloma status post stem cell transplant History of mild nonobstructive coronary artery disease PLAN An acute coronary event has been ruled out with no EKG evidence of ischemia and negative cardiac enzymes. Obtain ultrasound of the gallbladder. Recommend he undergo exercise stress echocardiogram to assess for stress-induced ischemia. Initiate on atorvastatin 40 mg daily. If stress test is normal he is stable from a cardiac perspective. Thank you kindly for this consultation. Nurse Practitioner note has been reviewed, I agree with a documented findings and plan of care. Patient was seen and examined. Past Medical History Past Medical History: Cancer, Hyperlipidemia Additional Past Medical History / Comment(s): Hx. vertebral stress fx. shingles 2013, multiple myeloma-dx. 2015 finished chem jul 2016, stem cell transplant 09/03, wound rt heel- healed, neuropathy, chronic back, knee and lt hip pain,. Currently on oral chemo- 3 weeks on, 2 off. Just finished 3 week cycle. 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 Smoking Status: Former smoker Past Alcohol Use History: None Reported Additional Past Alcohol Use History / Comment(s): started smoking age 17 and ivonne t age 27, smoked 1ppd Past Drug Use History: None Reported, Marijuana Additional Drug Use History / Comment(s): Pt states that he occasionally smokes marijuana to help with pain - Past Family History Father Family Medical History: Renal Disease Additional Family Medical History / Comment(s): aaa, Mother Family Medical History: No Reported History Additional Family Medical History / Comment(s): mom is healthy Medications and Allergies Home Medications Medication Instructions Recorded Confirmed Type Aspirin 325 mg PO DAILY 04/03/16 01/11/19 History Calcium Carbonate [Calcium] 600 mg PO DAILY 07/23/16 01/11/19 History Lenalidomide [Revlimid] 5 mg PO DAILY 02/05/17 01/11/19 History oxyCODONE HCL [OxyIR] 5 mg PO Q6H PRN 02/05/17 01/11/19 History Potassium Bicarbonate/Cit AC 25 meq PO DAILY 03/08/18 01/11/19 History [Klor-Con 25 (Effer. Tab)] Allergies Allergy/AdvReac Type Severity Reaction Status Date / Time sulfamethoxazole AdvReac Rash/Hives Verified 01/11/19 22:20 [From Bactrim] trimethoprim [From Bactrim] AdvReac Rash/Hives Verified 01/11/19 22:20 Physical Exam Vitals: Vital Signs Temp Pulse Pulse Pulse Resp BP BP 01/12/19 07:20 97.6 F 57 L 18 90/53 01/12/19 04:00 97.8 F 61 16 88/54 01/12/19 03:41 16 01/12/19 01:18 61 16 01/12/19 00:48 98.3 F 57 L 16 90/55 01/12/19 00:24 19 01/11/19 23:03 58 L 19 124/80 01/11/19 22:14 56 L 01/11/19 21:46 98.2 F 56 L 18 132/79 Pulse Ox 01/12/19 07:20 99 01/12/19 04:00 99 01/12/19 03:41 01/12/19 01:18 01/12/19 00:48 100 01/12/19 00:24 01/11/19 23:03 11 L 01/11/19 22:14 01/11/19 21:46 100 Intake and Output 01/11/19 01/12/19 01/12/19 22:59 06:59 14:59 Other: Voiding Method Toilet Weight 77.111 kg Results 01/11/19 22:05 01/11/19 22:05 Cardiac Enzymes 01/11/19 01/11/19 01/12/19 Range/Units 22:05 22:05 04:08 AST 65 H (17-59) U/L Troponin I <0.012 <0.012 (0.000-0.034) ng/mL Coagulation 01/11/19 Range/Units 22:05 PT 9.3 (9.0-12.0) sec APTT 21.5 L (22.0-30.0) sec Lipids 01/11/19 Range/Units 22:05 Triglycerides 102 (<150) mg/dL Cholesterol 148 (<200) mg/dL HDL Cholesterol 54 (40-60) mg/dL CBC 01/11/19 Range/Units 22:05 WBC 2.8 L (3.8-10.6) k/uL RBC 4.45 (4.30-5.90) m/uL Hgb 13.1 (13.0-17.5) gm/dL Hct 40.2 (39.0-53.0) % Plt Count 144 L (150-450) k/uL Comprehensive Metabolic Panel 01/11/19 Range/Units 22:05 Sodium 137 (137-145) mmol/L Potassium 3.7 (3.5-5.1) mmol/L Chloride 102 (98-107) mmol/L Carbon Dioxide 28 (22-30) mmol/L BUN 24 H (9-20) mg/dL Creatinine 1.02 (0.66-1.25) mg/dL Glucose 123 H (74-99) mg/dL Calcium 8.7 (8.4-10.2) mg/dL AST 65 H (17-59) U/L ALT 42 (21-72) U/L Alkaline Phosphatase 61 (38-126) U/L Total Protein 6.6 (6.3-8.2) g/dL Albumin 3.5 (3.5-5.0) g/dL Current Medications Generic Name Dose Route Start Last Admin Trade Name Freq PRN Reason Stop Dose Admin Aspirin 325 mg 01/12/19 09:00 Aspirin PO DAILY NNAMDI Nitroglycerin 0.4 mg 01/11/19 23:26 Nitrostat SUBLINGUAL Q5M PRN Chest Pain Intake and Output 01/11/19 01/12/19 01/12/19 22:59 06:59 14:59 Other: Voiding Method Toilet Weight 77.111 kg 01/11/19 22:05 01/11/19 22:05
--- NOTE | 2019-01-12 12:22 | ECHOF ---
Referral Reason:chest pain MEASUREMENTS -------- HEIGHT: 180.3 cm WEIGHT: 77.1 kg BP: 88/54 RVIDd: 3.2 cm (< 3.3) IVSd: 1.1 cm (0.6 - 1.1) LVIDd: 3.7 cm (3.9 - 5.3) LVPWd: 1.1 cm (0.6 - 1.1) IVSs: 1.4 cm LVIDs: 2.6 cm LVPWs: 1.5 cm LA Diam: 3.4 cm (2.7 - 3.8) LAESV Index (A-L): 30.85 ml/m Ao Diam: 3.9 cm (2.0 - 3.7) AV Cusp: 2.6 cm (1.5 - 2.6) MV EXCURSION: 11.714 mm (> 18.000) MV EF SLOPE: 69 mm/s (70 - 150) EPSS: 0.6 cm MV E Keven: 0.70 m/s MV DecT: 243 ms MV A Keven: 0.53 m/s MV E/A Ratio: 1.30 FINDINGS -------- Resting bradycardia (HR<60bpm). This was a technically adequate study. The left ventricular size is normal. There is borderline concentric left ventricular hypertrophy. Overall left ventricular systolic function is normal with, an EF between 60 - 65 %. The right ventricle is normal in size. LA is midly dilated 29-33ml/m2. The right atrium is normal in size. The aortic valve is trileaflet and appears structurally normal. The mitral valve is normal. There is trace mitral regurgitation. The tricuspid valve appears structurally normal. The pulmonic valve was not well visualized. The aortic root is dilated measuring 3.9cm. Normal inferior vena cava with normal inspiratory collapse consistent with estimated right atrial pre ssure of 5 mmHg. There is no pericardial effusion. CONCLUSIONS -------- 1. Resting bradycardia (HR<60bpm). 2. This was a technically adequate study. 3. The left ventricular size is normal. 4. There is borderline concentric left ventricular hypertrophy. 5. Overall left ventricular systolic function is normal with, an EF between 60 - 65 %. 6. The right ventricle is normal in size. 7. LA is midly dilated 29-33ml/m2. 8. The right atrium is normal in size. 9. The aortic valve is trileaflet and appears structurally normal. 10. The mitral valve is normal. 11. There is trace mitral regurgitation. 12. The tricuspid valve appears structurally normal. 13. The pulmonic valve was not well visualized. 14. The aortic root is dilated measuring 3.9cm. 15. Normal inferior vena cava with normal inspiratory collapse consistent with estimated right atrial pressure of 5 mmHg. 16. There is no pericardial effusion. SET UP MECHANIC AUTOMATIC LINE: Marya Ávlarez RDCS
[2019-01-12] MEDS ORDERED: DOBUTamine DRIP for NUC MED 500 MG in DEXTROSE/WATER 1 250ML.BAG IV ONE (12:45)
--- NOTE | 2019-01-12 14:30 | ECHOS ---
STRESS ECHOCARDIOGRAM INDICATIONS: Chest pressure. BASELINE HEART RATE: 53 BASELINE BLOOD PRESSURE: 103/65 MAXIMUM HEART RATE: 137 MAXIMUM BLOOD PRESSURE: 125/71 85% MPHR: 133 100% MPHR: 156 MAXIMUM STAGE REACHED: IV TOTAL EXERCISE TIME: 10:45 CLINICAL INFORMATION: A dobutamine echocardiographic study was performed. Peak heart rate of 137 was achieved. Maximum blood pressure of 125/71 mmHg was noted. Resting EKG shows normal sinus rhythm with normal MT interval and QRS duration and normal ST-T waves. Occasional PVCs were noted. During dobutamine infusion J-point depression with upsloping ST segments are noted. The baseline echocardiographic images reveal normal left ventricular chamber size with normal left ventricular systolic function. At the peak dose of dobutamine infusion, normal increase in the wall thickness and contractility is noted. FINAL IMPRESSION: 1. This dobutamine stress echocardiographic study is negative for stress-induced ischemia. 2. EKG portion of the stress test is not suggestive of ischemia. 3. Occasional premature ventricular contractions were noted. MMODL / IJN: [id number] /
[2019-01-12 15:56] VITALS: BP 115/76; PULSE 63; TEMP 98.1
[2019-01-12] MEDS ORDERED: PATIENT'S OWN MED (Lenalidomide [Revlimid] 5 MG) PO SCH (16:00)
--- NOTE | 2019-01-12 16:34 | P.CONS ---
History of Present Illness - Reason for Consult Consult date: 01/12/19 multiple myeloma - Chief Complaint chest pain - History of Present Illness We are actually not consulted on pt but, I saw him and figured a brief note is applicable Pt admitted for substernal chest pain, < 1 day, feels like an "inflated balloon", currently he is not having any chest pain, SOB, diaphoresis, nausea, he is boing worked up by Cardiology and being checked for possible choleycystitis. Pt has multiple myeloma diagnosed back in 2015. 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 He was treated with Revlimid, dexamethasone and velcade 01/11/16. He underwent autologous stem cell transplant on 08/27/16. He started maintenance revlimid 5 mg/day end of December 2016. He has had adjustments in his cycles (currently he is 3 weeks on, completed cycle Thursday, and 2 weeks off) but continues to do well on it, no significant SE. Review of Systems 10 point ROS is as stated in HPI Past Medical History Past Medical History: Cancer, Hyperlipidemia Additional Past Medical History / Comment(s): Hx. vertebral stress fx. shingles 2013, multiple myeloma-dx. 2015 finished chem jul 2016, stem cell transplant 09/03, wound rt heel- healed, neuropathy, chronic back, knee and lt hip pain,. Currently on oral chemo- 3 weeks on, 2 off. Just finished 3 week cycle. 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 Smoking Status: Former smoker Past Alcohol Use History: None Reported Additional Past Alcohol Use History / Comment(s): started smoking age 17 and quit age 27, smoked 1ppd Past Drug Use History: None Reported, Marijuana Additional Drug Use History / Comment(s): Pt states that he occasionally smokes marijuana to help with pain - Past Family History Father Family Medical History: Renal Disease Additional Family Medical History / Comment(s): aaa, Mother Family Medical History: No Reported History Additional Family Medical History / Comment(s): mom is healthy Medications and Allergies Home Medications Medication Instructions Recorded Confirmed Type Calcium Carbonate [Calcium] 600 mg PO DAILY 07/23/16 01/11/19 History Lenalidomide [Revlimid] 5 mg PO DAILY 02/05/17 01/11/19 History oxyCODONE HCL [OxyIR] 5 mg PO Q6H PRN 02/05/17 01/11/19 History Potassium Bicarbonate/Cit AC 25 meq PO DAILY 03/08/18 01/11/19 History [Klor-Con 25 (Effer. Tab)] Aspirin 81 mg PO DAILY #1 chewable 01/12/19 Rx Atorvastatin [Lipitor] 40 mg PO DAILY #90 tab 01/12/19 Rx Famotidine [Pepcid] 20 mg PO BID #60 tablet 01/12/19 Rx Allergies Allergy/AdvReac Type Severity Reaction Status Date / Time sulfamethoxazole AdvReac Rash/Hives Verified 01/11/19 22:20 [From Bactrim] trimethoprim [From Bactrim] AdvReac Rash/Hives Verified 01/11/19 22:20 Physical Exam Vitals: Vital Signs Temp Pulse Pulse Pulse Resp BP BP 01/12/19 11:25 98.2 F 52 L 18 104/68 01/12/19 07:20 97.6 F 57 L 18 90/53 01/12/19 04:00 97.8 F 61 16 88/54 01/12/19 03:41 16 01/12/19 01:18 61 16 01/12/19 00:48 98.3 F 57 L 16 90/55 01/12/19 00:24 19 01/11/19 23:03 58 L 19 124/80 01/11/19 22:14 56 L 01/11/19 21:46 98.2 F 56 L 18 132/79 Pulse Ox 01/12/19 11:25 100 01/12/19 07:20 99 01/12/19 04:00 99 01/12/19 03:41 01/12/19 01:18 01/12/19 00:48 100 01/12/19 00:24 01/11/19 23:03 11 L 01/11/19 22:14 01/11/19 21:46 100 Intake and Output 01/11/19 01/12/19 01/12/19 22:59 06:59 14:59 Other: Voiding Method Toilet Weight 77.111 kg 77.111 kg - Constitutional General appearance: average body habitus, cooperative, no acute distress - EENT Eyes: anicteric sclerae, EOMI ENT: hearing grossly normal, normal oropharynx - Neck Neck: no lymphadenopathy - Respiratory Respiratory: bilateral: CTA - Cardiovascular Heart sounds: normal: S1, S2 leg Peripheral Edema: bilateral: None - Gastrointestinal General gastrointestinal: normal bowel sounds, soft - Integumentary Integumentary: pale - Neurologic Neurologic: CNII-XII intact - Musculoskeletal Musculoskeletal: strength equal bilaterally - Psychiatric Psychiatric: A&O x's 3, appropriate affect, intact judgment & insight Results CBC & Chem 7: 01/11/19 22:05 01/11/19 22:05 Labs: Abnormal Lab Results - Last 24 Hours (Table) 01/11/19 01/11/19 01/11/19 Range/Units 22:05 22:05 22:05 WBC 2.8 L (3.8-10.6) k/uL Plt Count 144 L (150-450) k/uL Neutrophils # 0.6 L (1.3-7.7) k/uL APTT 21.5 L (22.0-30.0) sec BUN 24 H (9-20) mg/dL Glucose 123 H (74-99) mg/dL AST 65 H (17-59) U/L Assessment and Plan (1) History of multiple myeloma Narrative/Plan: Pt is currently on his 2 weeks off of revlimid. His myeloma is controlled on his regimen. He follows with Dr. Browning regularly Revlimid is a mild VEGF antagonist but, surgery is not contraindicated on maintenance revlimid, per pkg insert. Current Visit: No Status: Chronic Priority: Medium Code(s): Z85.79 - PRSNL HX OF MALIG NEOPLM OF LYMPHOID, HEMATPOETC & REL TISS SNOMED Code(s): 1204 [id number]
--- NOTE | 2019-01-12 17:15 | DS ---
DISCHARGE SUMMARY HISTORY AND PHYSICAL AND DISCHARGE SUMMARY: DATE OF ADMISSION: 01/11/2019 DATE OF DISCHARGE: 01/12/2019 PRESENTING COMPLAINT: Chest pressure. HISTORY OF PRESENTING COMPLAINT: This is a pleasant 63-year-old patient who was diagnosed with multiple myeloma back in 2016, was given chemotherapy same time. Patient was also on Revlimid. The patient has neuropathy from the treatment of chronic low back pain from vertebral fractures as well as hyperlipidemia. The patient had [employer] yesterday and consumed a taco with cheese; after 2 hours felt a really bloating sensation in the lower part of the chest. He became more uncomfortable. There was no sweating, no dizziness, no lightheadedness. He decided to come in. In February of last year patient did have a cardiac catheterization that did not show any significant disease. REVIEW OF SYSTEMS: CONSTITUTIONAL: None. HEENT: None. RESPIRATORY: None. CARDIOVASCULAR: As above. GASTROINTESTINAL: As above, with heartburn. GENITOURINARY: None. MUSCULOSKELETAL: Aches and pains in different joints and lower back. DERMATOLOGICAL: None. HEMATOLOGICAL: None. LYMPHATICS: None. PSYCHIATRY: None. NEUROLOGICAL: Numbness and tingling in the feet. PAST MEDICAL HISTORY: 1. Multiple myeloma. 2. Hyperlipidemia. 3. Vertebral fracture. 4. Peripheral neuropathy. PAST SURGICAL HISTORY: 1. Uvula excision. 2. Bilateral knee arthroscopy. 3. Right rotator cuff surgery. 4. Mole removed from the back. 5. Stem cell transplant in 2015. 6. Cardiac catheterization in February of last year that showed mild disease showing about 30%. SOCIAL HISTORY: Lives with Blossom and 2 sons. 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 Patient smoked for 10 years, stopped at the age of 27. Did smoke marijuana in the remote past. FAMILY HISTORY: Renal disease, abdominal aortic aneurysm. HOME MEDICATIONS: 1. Revlimid 5 mg p.o. daily. 2. Oxycodone immediate-release 5 mg q.6 p.r.n. 3. Potassium 25 mEq p.o. daily. 4. Calcium 600 mg p.o. daily. 5. Aspirin 325 p.o. daily. 6. Lipitor 40 mg p.o. daily. ALLERGIES: BACTRIM. PHYSICAL EXAMINATION: Temperature 98.1, pulse 53, respiration 18, blood pressure 115/76, pulse ox 100% on 2 L. GENERAL APPEARANCE: Average build. Lying in bed, comfortable. EYES: Pupils equal. Conjunctivae normal. HEENT: External appearance of nose and ears normal. Oral cavity normal. NECK: JVD not raised. Mass not palpable. RESPIRATORY: Effort normal. Lungs are clear. CARDIOVASCULAR: First and second sounds normal. No edema. ABDOMEN: Soft, non-tender. Liver and spleen not palpable. LYMPHATIC: No lymph node palpable in neck or axillae. PSYCHIATRY: Alert and oriented x3. Mood and affect normal. NEUROLOGICAL: Pupils equal. Cranial nerves grossly intact. Power and sensation grossly intact. INVESTIGATIONS: White count 2.8, hemoglobin 13.1, platelets 144, potassium 3.7, BUN 24, creatinine 1.02. Troponin x3 negative. LDL 74. EKG tracing, personally reviewed by me, shows normal sinus rhythm. Chest x-ray film, personally reviewed by me, shows normal x-ray. Gallbladder ultrasound is limited, showing some gallbladder sludge. Troponin is negative. ASSESSMENT: 1. Low anterior chest wall pain and bloating sensation, likely from esophageal spasm in a patient who has reflux. 2. Multiple myeloma, currently in remission, on Revlimid. 3. Hyperlipidemia. 4. Chronic gait dysfunction. Uses a walker. 5. Peripheral neuropathy from side effects of medications. 6. Minimal coronary artery disease per prior cardiac catheterization last year showing 30% disease. PLAN: Patient did undergo a stress dobutamine echocardiogram. Nurse called to tell me that per Cardiology patient is okay to be discharged. The patient was told these are most likely from reflux symptoms. We will put the patient on Pepcid. If symptoms recur, then patient will have to have gallbladder disease further evaluated. CONSULTATION: Dr. Hayden Jenkins from Cardiology. DISCHARGE MEDICATIONS: 1. Will reduce the dose of aspirin to 81 mg a day. 2. Lipitor was added by Cardiology. 3. Pepcid 20 mg twice a day is being added. Follow up with Dr. Pierson in 3 days. Follow up with Dr. Ellis in 2 weeks. MMODL / IJN: [id number] /
== END 2019-01-12 16:54 | disposition home or self-care (01) ==
LOC: EC 21:38 → 1SOBS 23:26
PROVIDERS: ADMIT Hospitalist; ATTEND Hospitalist
DX: R07.89 Other chest pain (principal); C90.01 Multiple myeloma in remission; G62.9 Polyneuropathy, unspecified; E78.5 Hyperlipidemia, unspecified; Z94.84 Stem cells transplant status; I25.10 Atherosclerotic heart disease of native coronary artery without angina pectoris; K21.9 Gastro-esophageal reflux disease without esophagitis; M80.00XA Age-related osteoporosis with current pathological fracture, unspecified site, initial encounter for fracture; Z87.891 Personal history of nicotine dependence; Z79.82 Long term (current) use of aspirin; Z79.899 Other long term (current) drug therapy; Z88.2 Allergy status to sulfonamides; Z82.49 Family history of ischemic heart disease and other diseases of the circulatory system; R26.9 Unspecified abnormalities of gait and mobility
CPT/HCPCS: 96374; 99285; 36415; 93005; 93306; 93351; 83880; 80061; 80053; 83735; 84484 ×2; 85025; 85610; 85730; 71046; 76705; G0378 ×2; J1250; J2270

== ENCOUNTER → 2019-03-08 | Outpatient (CLI) | payer MEDICARE ==
--- NOTE | 2019-03-08 14:17 | XR ---
EXAMINATION TYPE: XR bone survey complete DATE OF EXAM: 03/08/2019 Correlation to prior chest x-ray 01/11/2019, prior bone survey 07/15/2016 HISTORY: C 90.00, M 54.5, D 70.2, G3 89.3 Frontal view of the chest, frontal and lateral views of the spine, frontal views of the proximal uppe r and lower extremities, 2 views of the calvarium, frontal view of the pelvis are submitted. Multiple lytic lucencies are again noted within the calvarium, proximal upper and lower extremities. Bones are osteopenic. Compression deformities are again noted in the spine and lumbar region as well as near-complete collapse of T11. Some lytic foci are stable within the ischium bilaterally. IMPRESSION: Findings compatible with multiple myeloma are stable compared to prior exam.
== END | disposition home or self-care (01) ==
LOC: RADXRMAIN 13:19
PROVIDERS: ATTEND Internal Medicine Hematology & Oncology
DX: C90.00 Multiple myeloma not having achieved remission (principal); G89.3 Neoplasm related pain (acute) (chronic); M54.5 Low back pain; D70.2 Other drug-induced agranulocytosis
CPT/HCPCS: 77075

== ENCOUNTER 2019-04-15 14:53 | Inpatient (IN) | payer MEDICARE, BC ==
[2019-04-15] MEDS ORDERED: ACETAMINOPHEN TAB 500 MG TAB PO STA (15:59)
[2019-04-15] MEDS ORDERED: FLUORESCEIN STRIPS 1 MG STRIP LEFT EYE ONE (17:16)
[2019-04-15 17:42] LABS: ALT 29 U/L (21-72); AST 36 U/L (17-59); African American GFR (CKD) >90 (>60 ml/min/1.73 sqM); Albumin 3.3 g/dL (3.5-5.0); Alkaline Phosphatase 45 U/L (38-126); Anion Gap 8 mmol/L; Blood Urea Nitrogen 26 mg/dL (9-20); Calcium 7.9 mg/dL (8.4-10.2); Carbon Dioxide 25 mmol/L (22-30); Chloride 100 mmol/L (98-107); Glucose 93 mg/dL (74-99); Potassium 4.2 mmol/L (3.5-5.1); Sodium 133 mmol/L (137-145); Total Bilirubin 0.6 mg/dL (0.2-1.3); Total Protein 6.7 g/dL (6.3-8.2)
[2019-04-15 17:44] LABS: Anisocytosis Slight; Basophils % (A) 0 %; Eosinophils # (A) 0.1 k/uL (0-0.7); Eosinophils % (A) 3 %; HCT 32.9 % (39.0-53.0); HGB 11.2 gm/dL (13.0-17.5); Lymphocytes # (A) 0.1 k/uL (1.0-4.8); Lymphocytes % (A) 3 %; MCH 30.7 pg (25.0-35.0); MCHC 33.9 g/dL (31.0-37.0); MCV 90.5 fL (80.0-100.0); Mean Platelet Volume 8.1; Monocytes # (A) 0.2 k/uL (0-1.0); Monocytes % (A) 5 %; Neutrophils # (A) 2.8 k/uL (1.3-7.7); Neutrophils % (A) 87 %; RBC 3.64 m/uL (4.30-5.90); RDW 18.4 % (11.5-15.5); WBC 3.2 k/uL (3.8-10.6)
[2019-04-15] MEDS ORDERED: ACYCLOVIR SODIUM 800 MG in SODIUM CHLORIDE 0.9% 250 ML IV ONE (18:00)
[2019-04-15] MEDS ORDERED: VANCOMYCIN IV PER PHARMACY 1 EACH MISC MISCELLANE PRN (18:00)
--- NOTE | 2019-04-15 18:06 | ED ---
General Adult HPI - General Chief complaint: Skin/Abscess/Foreign Body Stated complaint: Possible shingles on face, CA PT Time Seen by Provider: 04/15/19 16:36 Source: patient Mode of arrival: ambulatory Limitations: no limitations - History of Present Illness Initial comments: C4-year-old male with history of multiple myeloma currently undergoing infusions presenting with rash to his left groin and face. Patient states yesterday we'll getting an infusion they notices rash. He was started on acyclovir. He woke this morning and had lesions on his face as well as a feeling of his subjective fevers. He denies any eye pain, cough, chest pain, shortness of breath, abdominal pain. He does admit to a sore throat. Patient states he called Dr. Mensah, his oncologist, and was instructed to come to the emergency department. - Related Data Home Medications Medication Instructions Recorded Confirmed oxyCODONE HCL [OxyIR] 5 mg PO Q6H 02/05/17 04/15/19 Potassium Bicarbonate/Cit AC 25 meq PO DAILY 03/08/18 04/15/19 [Klor-Con 25 (Effer. Tab)] Dexamethasone 20 mg PO WE 04/15/19 04/15/19 Famotidine [Pepcid] 20 mg PO BID PRN 04/15/19 04/15/19 Gabapentin [Neurontin] 300 mg PO TID 04/15/19 04/15/19 Nitroglycerin 0.3mg Sl Tab 0.3 mg SL Q5M PRN 04/15/19 04/15/19 Ondansetron HCl [Zofran] 4 mg PO Q4H PRN 04/15/19 04/15/19 Pomalyst 4mg Cap 4 mg PO HS 04/15/19 04/15/19 valACYclovir [Valtrex] 1,000 mg PO TID 04/15/19 04/15/19 Allergies Allergy/AdvReac Type Severity Reaction Status Date / Time sulfamethoxazole AdvReac Rash/Hives Verified 04/15/19 18:07 [From Bactrim] trimethoprim [From Bactrim] AdvReac Rash/Hives Verified 04/15/19 18:07 Review of Systems ROS Statement: Those systems with pertinent positive or pertinent negative responses have been documented in the HPI. Review of Systems Constitutional: Positive fever, chills Eyes: Denies change in vision, Denies pain Ears, nose, mouth, throat: Denies headaches, Denies sore throat Cardiovascular: Denies chest pain. Denies palpitations Respiratory: Denies shortness of breath, Denies cough Gastrointestinal: Denies abdominal pain. Denies nausea, vomiting, diarrhea. Genitourinary: Denies hematuria, Denies infections Musculoskeletal: Denies pain, Denies swelling Integumentary: Positive rash Neurological: Denies headache, focal weakness, focal numbness Psychiatric: Denies anxiety, Denies depression Hematologic/Lymphatic: Denies easy bleeding or bruising ROS Other: All systems not noted in ROS Statement are negative. Past Medical History Past Medical History: Cancer, Hyperlipidemia Additional Past Medical History / Comment(s): Hx. vertebral stress fx. shingles 2013, multiple myeloma-dx. 2015 finished chem jul 2016, stem cell transplant 09/03, wound rt heel- healed, neuropathy, chronic back, knee and lt hip pain,. Currently on oral chemo- 3 weeks on, 2 off. Just finished 3 week cycle. History of Any Multi-Drug Resistant Organisms: None Reported Past Surgical History: Orthopedic Surgery Additional Past Surgical History / Comment(s): excision of uvular lesion(benign) 2009, colonoscopy, dave knee arthroscopy, rt rotator cuff sx, moles removed from back(benign)bone maroow aspiration/bx,stem cell transplant 2015, Past Anesthesia/Blood Transfusion Reactions: No Reported Reaction Past Psychological History: No Psychological Hx Reported Smoking Status: Former smoker Past Alcohol Use History: None Reported Past Drug Use History: None Reported, Marijuana - Past Family History Father Family Medical History: Renal Disease Additional Family Medical History / Comment(s): aaa, Mother Family Medical History: No Reported History Additional Family Medical History / Comment(s): mom is healthy General Exam - General Exam Comments Initial Comments: General: Awake, alert, No acute Distress HENT: Normocephalic. Atraumatic. No oropharyngeal lesions. Eyes: PERRL. EOMI. No scleral icterus. No injected conjunctiva. Dendritic lesion of left eye with staining. Right eye showed no lesions. Neck: Full ROM Chest/Lungs: Clear to auscultation bilaterally. No wheezing, rhonchi, or rales Cardiac: Regular rate, rhythm. No murmurs or rubs Abdomen/GI: Soft, nontender, nondistended. No rebound, guarding, or rigidity. Musculoskeletal: Full ROM Skin: Warm, dry.. Shingles present in V1 dermatome on the left with positive Marrero sign. Shingles also present and L1 dermatome on the left. Neurologic: A/Ox3, no weakness, no sensory deficit, no abnormal gait, no coordination deficit Limitations: no limitations Course Vital Signs 04/15/19 04/15/19 15:52 18:38 Temperature 102.9 F H 99.2 F Pulse Rate 78 63 Respiratory 18 18 Rate Blood Pressure 122/83 122/79 O2 Sat by Pulse 98 99 Oximetry Medical Decision Making - Medical Decision Making 64-year-old male presenting with shingles. Initial exam the patient is febrile but his vital signs are otherwise stable. Patient found to be septic secondary to disseminated herpes zoster. He has no mental status changes or headache to warrant an LP. He was started on acyclovir IV as well as vancomycin for secondary bacterial infection. Patient placed on neutropenic precautions. He was found to have left eye involvement of his zoster. There are optic drops as well as erythromycin were ordered. I spoke with Dr. Ferro was agreeable to admission with ophthalmology and infectious disease on consult. - Lab Data Result diagrams: 04/15/19 17:10 04/15/19 17:10 Lab Results 04/15/19 04/15/19 04/15/19 Range/Units 17:10 17:10 17:10 WBC 3.2 L (3.8-10.6) k/uL RBC 3.64 L (4.30-5.90) m/uL Hgb 11.2 L (13.0-17.5) gm/dL Hct 32.9 L (39.0-53.0) % MCV 90.5 (80.0-100.0) fL MCH 30.7 (25.0-35.0) pg MCHC 33.9 (31.0-37.0) g/dL RDW 18.4 H (11.5-15.5) % Plt Count 56 L (150-450) k/uL Neutrophils % 87 % Lymphocytes % 3 % Monocytes % 5 % Eosinophils % 3 % Basophils % 0 % Neutrophils # 2.8 (1.3-7.7) k/uL Lymphocytes # 0.1 L (1.0-4.8) k/uL Monocytes # 0.2 (0-1.0) k/uL Eosinophils # 0.1 (0-0.7) k/uL Basophils # 0.0 (0-0.2) k/uL Manual Slide Review Performed Large Platelets Present Polychromasia Present Anisocytosis Slight Sodium 133 L (137-145) mmol/L Potassium 4.2 (3.5-5.1) mmol/L Chloride 100 (98-107) mmol/L Carbon Dioxide 25 (22-30) mmol/L Anion Gap 8 mmol/L BUN 26 H (9-20) mg/dL Creatinine 0.88 (0.66-1.25) mg/dL Est GFR (CKD-EPI)AfAm >90 (>60 ml/min/1.73 sqM) Est GFR (CKD-EPI)NonAf >90 (>60 ml/min/1.73 sqM) Glucose 93 (74-99) mg/dL Plasma Lactic Acid Jeromy 1.8 (0.7-2.0) mmol/L Calcium 7.9 L (8.4-10.2) mg/dL Total Bilirubin 0.6 (0.2-1.3) mg/dL AST 36 (17-59) U/L ALT 29 (21-72) U/L Alkaline Phosphatase 45 (38-126) U/L Total Protein 6.7 (6.3-8.2) g/dL Albumin 3.3 L (3.5-5.0) g/dL Disposition Clinical Impression: Disseminated herpes zoster, Sepsis, Cellulitis, Neutropenic fever, Multiple myeloma, Herpes zoster ophthalmicus of left eye Disposition: ADMITTED IP TO THIS [facility] Referrals: Elkin Pierson MD [Primary Care Provider] - 1-2 days Decision to Admit Reason: Admit from EC Decision Date: 04/15/19 Decision Time: 18:46
[2019-04-15] MEDS ORDERED: VANCOMYCIN 1,500 MG in SODIUM CHLORIDE 0.9% 250 ML IVPB STA (18:09)
--- NOTE | 2019-04-15 18:15 | XR ---
EXAMINATION: XR chest 2V DATE AND TIME: 04/15/2019 6:11 PM CLINICAL INDICATION: PHH; Pain TECHNIQUE: Departmental protocol COMPARISON: 01/11/2019 FINDINGS: The lungs are clear. The pleural spaces are negative. The cardiac silhouette is not enlarged. Aortic tortuosity redemonstrated. The skeletal structures and soft tissues are negative for acute findings. IMPRESSION: NO ACUTE PROCESS.
[2019-04-15 18:35] LABS: Large Platelets Present; Platelet Count 56 k/uL (150-450); Polychromasia Present
[2019-04-15] MEDS ORDERED: ONDANSETRON 4 MG/2 ML VIAL IVP PRN (18:38)
[2019-04-15] MEDS ORDERED: NALOXONE 0.4 MG/ML 1 ML VIAL IV PRN (18:38)
[2019-04-15] MEDS ORDERED: NITROGLYCERIN SL TABS 0.4 MG TAB SUBLINGUAL PRN (18:45)
[2019-04-15 18:50] LABS: Appearance,Urine Clear (Clear); Bilirubin,Urine Negative (Negative); Blood,Urine Small (Negative); Color,Urine Yellow; Glucose,Urine (UA) Negative (Negative); Ketones,Urine Negative (Negative); Leukocyte Esterase,Urine Negative (Negative); Mucus,Urine Rare /hpf; Nitrite,Urine Negative (Negative); Protein,Urine 1+ (Negative); RBC,Urine 15 /hpf (0-5); Specific Gravity,Urine 1.024 (1.001-1.035); Urobilinogen,Urine <2.0 mg/dL (<2.0)
[2019-04-15] MEDS: SODIUM CHLORIDE 0.9% 1,000 ML IV SCH (19:43)
[2019-04-15] MEDS: GABAPENTIN 300 MG CAP PO SCH (20:20)
[2019-04-15] MEDS ORDERED: POMALYST PO SCH (21:00)
[2019-04-15] MEDS ORDERED: GABAPENTIN 300 MG CAP PO SCH (22:00)
[2019-04-15] MEDS: ERYTHROMYCIN 5 MG/GM OPHTH OINT 3.5 GM TUBE LEFT EYE SCH (23:15)
[2019-04-15] MEDS: TRIFLURIDINE 1% OPHTH DROPS 7.5 ML BTL LEFT EYE SCH (23:15)
[2019-04-16] MEDS: TRIFLURIDINE 1% OPHTH DROPS 7.5 ML BTL LEFT EYE SCH ×13 (00:15→22:11)
[2019-04-16] MEDS: ACYCLOVIR SODIUM 800 MG in SODIUM CHLORIDE 0.9% 250 ML IV SCH ×3 (01:00→16:32)
[2019-04-16] MEDS: ERYTHROMYCIN 5 MG/GM OPHTH OINT 3.5 GM TUBE LEFT EYE SCH ×6 (01:01→20:24)
[2019-04-16] MEDS: ACETAMINOPHEN TAB 325 MG TAB PO PRN ×2 (02:04→20:34)
[2019-04-16 05:47] VITALS: BMI 25.8
[2019-04-16] MEDS: VANCOMYCIN 1,500 MG in SODIUM CHLORIDE 0.9% 250 ML IVPB SCH ×2 (06:56→18:21)
[2019-04-16 07:48] LABS: Anisocytosis Slight; Basophils % (A) 0 %; Eosinophils # (A) 0.1 k/uL (0-0.7); Eosinophils % (A) 5 %; Lymphocytes # (A) 0.1 k/uL (1.0-4.8); Lymphocytes % (A) 6 %; MCH 29.4 pg (25.0-35.0); MCHC 31.1 g/dL (31.0-37.0); MCV 94.5 fL (80.0-100.0); Mean Platelet Volume 7.6; Monocytes # (A) 0.1 k/uL (0-1.0); Monocytes % (A) 5 %; Neutrophils # (A) 1.5 k/uL (1.3-7.7); Neutrophils % (A) 82 %; RBC 3.39 m/uL (4.30-5.90); RDW 17.9 % (11.5-15.5); WBC 1.8 k/uL (3.8-10.6)
[2019-04-16 08:16] LABS: Platelet Count 37 k/uL (150-450)
[2019-04-16 08:17] LABS: African American GFR (CKD) >90 (>60 ml/min/1.73 sqM)
[2019-04-16] MEDS: POTASSIUM CHLORIDE ER 10 MEQ TAB.ER.PRT PO SCH (08:20)
[2019-04-16] MEDS: FAMOTIDINE 20 MG TAB PO PRN (08:20)
[2019-04-16] MEDS: GABAPENTIN 300 MG CAP PO SCH ×3 (08:21→20:22)
[2019-04-16] MEDS: SODIUM CHLORIDE 0.9% 1,000 ML IV SCH ×2 (14:49→20:25)
--- NOTE | 2019-04-16 18:07 | P.HPIM ---
History of Present Illness H&P Date: 04/16/19 Chief Complaint: Painful rash History of presenting complaint: This is a very pleasant 64-year-old patient of Dr. Pierson. Patient's chronic stable medical conditions include hyperlipidemia, kidney dysfunction is a walker, peripheral neuropathy, minimal coronary artery disease per headache catheterization 30%. Patient had his first dose of chemotherapy a week ago. Second was given 2 days ago. Patient started out with a rash that started in the groin area went to the back and a little scattered all over the body but predominantly in that dermatome in the left groin area.'s painful itchy red. Patient had some fever and chills. Decreased appetite. Rundown and tired. Clinical picture was compatible with herpes zoster and patient started on IV acyclovir. For secondary infection also on vancomycin. Admitted for the same and put him contact precautions. Patient's is at the bedside. Review of systems: GEN.: Tired fever chills EYES: None HEENT: None NECK: None RESPIRATORY: None CARDIOVASCULAR: None GASTROINTESTINAL: None GENITOURINARY: None MUSCULOSKELETAL: None LYMPHATICS: None HEMATOLOGICAL: None PSYCHIATRY: None NEUROLOGICAL: None Past medical history: Multiple myeloma, hyperlipidemia, chronic kidney dysfunction uses a walker, peripheral neuropathy, minimal coronary artery disease 30% disease, vertebral stress fracture patient had shingles in 2013. I will stem cell transplant in 2059 patient's was diagnosed with multiple myeloma in November 2015 Social history: Visit his Blossom and 2 sons. 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 Smoked for 10 years and stopped at the age of 27. Did smoke marijuana in the remote past. Family history: renal disease, abdominal aortic aneurysm Physical examination: VITAL SIGNS: 102.9, 78, 18, 122/83, 98% room air GENERAL: Average built, sitting up on a chair uncomfortable,. EYES: Pupils equal. Conjunctiva normal. HEENT: External appearance of nose and ears normal, oral cavity grossly normal. NECK: JVD not raised; masses not palpable. HEART: First and second heart sounds are normal; no edema. LUNGS: Respiratory rate normal; clear to auscultation. ABDOMEN: Soft, nontender, liver spleen not palpable, no masses palpable. PSYCH: [Alert and oriented x3; mood and affect anxious l. DERMATOLOGICAL: There is reddish patches with a raised center green color with some papules, in the lumbar distribution. Also's somebody's as his rashes are present in the torso and the forehead also in the limbs NEUROLOGICAL: Cranial nerves grossly intact; no facial asymmetry, power and sensation grossly intact. LYMPHATICS: No lymph nodes palpable in the axilla and neck Investigations reviewed in the clinical context: White count 3.2, repeat 1.8 hemoglobin 11.2 platelets 56, repeat 37 potassium 4.22 and 26 creatinine 0.88 Assessment: -Generalized herpes zoster, in a patient who is immunosuppressed getting treatment for his multiple myeloma with secondary fever could be from secondary infection or could be from the herpes zoster infection itself -Multiple myeloma getting chemotherapy plan -hyperlipidemia -chronic gait dysfunction uses a walker and even -peripheral neuropathy side effect of chemotherapy -Minimal coronary artery disease per cardiac catheterization 30% disease in - Plan: Patient started on IV acyclovir. Also in IV vancomycin. Home medications were resumed. We'll consult on oncology to determine some of his other medications can be given or not. Also ID was consulted for the same. Care was discussed the patient his and questions were answered Past Medical History Past Medical History: Cancer, Hyperlipidemia Additional Past Medical History / Comment(s): Hx. vertebral stress fx. shingles 2013, multiple myeloma-dx. 2015 finished chem jul 2016, stem cell transplant 09/03, wound rt heel- healed, neuropathy, chronic back, knee and lt hip pain,. Currently on oral chemo- 3 weeks on, 2 off. 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 Smoking Status: Former smoker Past Alcohol Use History: None Reported Additional Past Alcohol Use History / Comment(s): started smoking age 17 and quit age 27, smoked 1ppd Past Drug Use History: None Reported, Marijuana Additional Drug Use History / Comment(s): Pt states that he occasionally smokes marijuana to help with pain - Past Family History Father Family Medical History: Renal Disease Additional Family Medical History / Comment(s): aaa, Mother Family Medical History: No Reported History Additional Family Medical History / Comment(s): mom is healthy Medications and Allergies Home Medications Medication Instructions Recorded Confirmed Type oxyCODONE HCL [OxyIR] 5 mg PO Q6H 02/05/17 04/15/19 History Potassium Bicarbonate/Cit AC 25 meq PO DAILY 03/08/18 04/15/19 History [Klor-Con 25 (Effer. Tab)] Dexamethasone 20 mg PO WE 04/15/19 04/15/19 History Famotidine [Pepcid] 20 mg PO BID PRN 04/15/19 04/15/19 History Gabapentin [Neurontin] 300 mg PO TID 04/15/19 04/15/19 History Nitroglycerin 0.3mg Sl Tab 0.3 mg SL Q5M PRN 04/15/19 04/15/19 History Ondansetron HCl [Zofran] 4 mg PO Q4H PRN 04/15/19 04/15/19 History Pomalyst 4mg Cap 4 mg PO HS 04/15/19 04/15/19 History valACYclovir [Valtrex] 1,000 mg PO TID 04/15/19 04/15/19 History Allergies Allergy/AdvReac Type Severity Reaction Status Date / Time sulfamethoxazole AdvReac Rash/Hives Verified 04/15/19 18:07 [From Bactrim] trimethoprim [From Bactrim] AdvReac Rash/Hives Verified 04/15/19 18:07 Physical Exam Vitals: Vital Signs Temp Pulse Pulse Resp BP BP Pulse Ox 04/16/19 07:33 16 04/16/19 05:38 99.3 F 70 16 118/86 96 04/15/19 23:00 99.2 F 76 20 125/70 95 04/15/19 21:33 98.9 F 74 18 108/72 99 04/15/19 19:35 77 18 129/82 99 04/15/19 18:38 99.2 F 63 18 122/79 99 04/15/19 15:52 102.9 F H 78 18 122/83 98 Intake and Output 06/28/19 06/29/19 06/29/19 22:59 06:59 14:59 Intake Total 1220 Balance 1220 Intake: Intake, IV Titration 1100 Amount Acyclovir Sodium 800 mg 250 In Sodium Chloride 0.9% 250 ml @ 266 mls/hr IV ONCE ONE Rx#:[id number] Sodium Chloride 0.9% 1, 600 000 ml @ 75 mls/hr IV . [id number] Rx#:[id number] Vancomycin 1,500 mg In 250 Sodium Chloride 0.9% 250 ml @ 125 mls/hr IVPB ONCE STA Rx#:[id number] Oral 120 Other: Voiding Method Toilet # Voids 3 3 Weight 81.647 kg Results CBC & Chem 7: 04/16/19 07:04 04/16/19 07:04 Labs: Abnormal Lab Results - Last 24 Hours (Table) 04/15/19 04/15/19 04/15/19 Range/Units 17:10 17:10 18:35 WBC 3.2 L (3.8-10.6) k/uL RBC 3.64 L (4.30-5.90) m/uL Hgb 11.2 L (13.0-17.5) gm/dL Hct 32.9 L (39.0-53.0) % RDW 18.4 H (11.5-15.5) % Plt Count 56 L (150-450) k/uL Lymphocytes # 0.1 L (1.0-4.8) k/uL Sodium 133 L (137-145) mmol/L BUN 26 H (9-20) mg/dL Calcium 7.9 L (8.4-10.2) mg/dL Albumin 3.3 L (3.5-5.0) g/dL Urine Protein 1+ H (Negative) Urine Blood Small H (Negative) Urine RBC 15 H (0-5) /hpf Urine Mucus Rare H (None) /hpf 04/16/19 Range/Units 07:04 WBC 1.8 L (3.8-10.6) k/uL RBC 3.39 L (4.30-5.90) m/uL Hgb 10.0 L (13.0-17.5) gm/dL Hct 32.0 L (39.0-53.0) % RDW 17.9 H (11.5-15.5) % Plt Count 37 L (150-450) k/uL Lymphocytes # 0.1 L (1.0-4.8) k/uL Sodium (137-145) mmol/L BUN (9-20) mg/dL Calcium (8.4-10.2) mg/dL Albumin (3.5-5.0) g/dL Urine Protein (Negative) Urine Blood (Negative) Urine RBC (0-5) /hpf Urine Mucus (None) /hpf Thrombosis Risk Factor Assmnt - Choose All That Apply Any of the Below Risk Factors Present?: Yes Each Factor Represents 1 point: Sepsis (< 1month) Other Risk Factors: Yes Each Risk Factor Represents 2 Points: Age 61-74 years, Malignancy Other congenital or acquired thrombophilia - If yes, enter type in comment: No Thrombosis Risk Factor Assessment Total Risk Factor Score: 5 Thrombosis Risk Factor Assessment Level: High Risk
--- NOTE | 2019-04-17 00:22 | P.CONS ---
History of Present Illness - Reason for Consult Consult date: 04/16/19 - Chief Complaint Painful rash - History of Present Illness Pleasant 64-year-old male Pt has multiple myeloma diagnosed back in 2016. 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 He was treated with Revlimid, dexamethasone and velcade 01/11/16. He underwent autologous stem cell transplant on 08/27/16. He started maintenance revlimid 5 mg/day end of December 2016. He has had adjustments in his cycles (currently he is 3 weeks on, completed cycle Thursday, and 2 weeks off) but continues to do well on it, no significant side effects. Relates that he has developed a significant painful rash to his left groin area he developed some fever and noticed that there were some lesions in other parts including his face and arms because he presented to Hospital. There is evidence of disseminated zoster because the patient was brought in the hospital started IV antiviral therapy given his immunocompromised status and placed in a [facility] negative pressure room. Patient is really quite uncomfortable with pain medication has been helping. He had a fever which is now improving. He does not have serious headache, visual change or confusion. Review of Systems HEENT:Denies headache or acute visual change. Denies sinus or mouth discomforts. Denies neck stiffness or pain. Denies significant oral cavity pain. Denies difficulty on swallowing. Lungs: Denies significant shortness of breath, cough, sputum production, or hemoptysis. Cardiovascular: Denies significant shortness of breath, chest pain, chest wall pain, orthopnea, dyspnea on exertion, syncope Gastrointestinal:Denies nausea, vomiting, diarrhea, constipation, hematemesis, melena, hematochezia. No no significant change of bowel habit noticed. Musculoskeletal: denies significant myalgias or arthralgias. No new joint swelling. Denies new back pain. Skin: Very painful rash left groin area as well as other areas including face s calp upper arms and leg Neuro: Denies headache or visual change. Denies any new onset weakness or difficulty with ambulation. Denies falls or seizures. Psychiatric:Denies anxiety or depression. Endocrine: Routinely has fatigue but has been able to gain some weight after his last significant illness Past Medical History Past Medical History: Cancer, Hyperlipidemia Additional Past Medical History / Comment(s): Hx. vertebral stress fx. shingles 2013, multiple myeloma-dx. 2015 finished chem jul 2016, stem cell transpla nt 09/03, wound rt heel- healed, neuropathy, chronic back, knee and lt hip pain,. Currently on oral chemo- 3 weeks on, 2 off. 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 Smoking Status: Former smoker Past Alcohol Use History: None Reported Additional Past Alcohol Use History / Comment(s): started smoking age 17 and quit age 27, smoked 1ppd Past Drug Use History: None Reported, Marijuana Additional Drug Use History / Comment(s): Pt states that he occasionally smokes marijuana to help with pain - Past Family History Father Family Medical History: Renal Disease Additional Family Medical History / Comment(s): aaa, Mother Family Medical History: No Reported History Additional Family Medical History / Comment(s): mom is healthy Medications and Allergies Home Medications and Allergies Comment(s): Current Medications Acetaminophen (Tylenol Tab) 650 mg PO Q6HR PRN PRN Reason: Mild Pain or Fever > 100.5 Last Admin: 04/16/19 20:34 Dose: 650 mg Documented by: Erythromycin (Romycin Ophth Oint) 1 applic LEFT EYE Q4HR NNAMDI Last Admin: 04/16/19 20:24 Dose: 1 applic Documented by: Famotidine (Pepcid) 20 mg PO BID PRN PRN Reason: Heartburn Last Admin: 04/16/19 08:20 Dose: 20 mg Documented by: Gabapentin (Neurontin) 300 mg PO TID [facility] Last Admin: 04/16/19 20:22 Dose: 300 mg Documented by: Acyclovir Sodium 800 mg/ (Sodium Chloride) 266 mls @ 266 mls/hr IV Q8HR [facility] Last Admin: 04/16/19 16:32 Dose: 266 mls/hr Documented by: Vancomycin HCl 1,500 mg/ (Sodium Chloride) 250 mls @ 125 mls/hr IVPB Q12H [facility] Last Admin: 04/16/19 18:21 Dose: 125 mls/hr Documented by: Sodium Chloride (Saline 0.9%) 1,000 mls @ 75 mls/hr IV .[id number] [facility] Last Admin: 04/16/19 20:25 Dose: 75 mls/hr Documented by: Ibuprofen (Motrin) 400 mg PO Q6HR PRN PRN Reason: Mild Pain or Fever > 100.5 Miscellaneous Information (Vancomycin Trough Due) 1 each MISCELLANE ONCE ONE Stop: 04/17/19 06:01 Naloxone HCl (Narcan) 0.2 mg IV Q2M PRN PRN Reason: Opioid Reversal Nitroglycerin (Nitrostat) 0.4 mg SUBLINGUAL Q5M PRN PRN Reason: Chest Pain Ondansetron HCl (Zofran) 4 mg IVP Q8HR PRN PRN Reason: Nausea And Vomiting Oxycodone HCl (Oxyir) 5 mg PO Q6H PRN PRN Reason: Pain Last Admin: 04/16/19 20:22 Dose: 5 mg Documented by: Potassium Chloride (K-Dur 10) 25 meq PO DAILY [facility] Last Admin: 04/16/19 08:20 Dose: 25 meq Documented by: Trifluridine (Viroptic) 1 drops LEFT EYE Q2HR [facility] Last Admin: 04/16/19 22:11 Dose: 1 drops Documented by: Home Medications Medication Instructions Recorded Confirmed Type oxyCODONE HCL [OxyIR] 5 mg PO Q6H 02/05/17 04/15/19 History Potassium Bicarbonate/Cit AC 25 meq PO DAILY 03/08/18 04/15/19 History [Klor-Con 25 (Effer. Tab)] Dexamethasone 20 mg PO WE 04/15/19 04/15/19 History Famotidine [Pepcid] 20 mg PO BID PRN 04/15/19 04/15/19 History Gabapentin [Neurontin] 300 mg PO TID 04/15/19 04/15/19 History Nitroglycerin 0.3mg Sl Tab 0.3 mg SL Q5M PRN 04/15/19 04/15/19 History Ondansetron HCl [Zofran] 4 mg PO Q4H PRN 04/15/19 04/15/19 History Pomalyst 4mg Cap 4 mg PO HS 04/15/19 04/15/19 History valACYclovir [Valtrex] 1,000 mg PO TID 04/15/19 04/15/19 History Allergies Allergy/AdvReac Type Severity Reaction Status Date / Time sulfamethoxazole AdvReac Rash/Hives Verified 04/15/19 18:07 [From Bactrim] trimethoprim [From Bactrim] AdvReac Rash/Hives Verified 04/15/19 18:07 Physical Exam Vitals: Vital Signs Temp Pulse Resp BP Pulse Ox 04/16/19 21:30 99.9 F H 04/16/19 20:33 102.1 F H 76 16 117/67 04/16/19 16:22 16 04/16/19 07:33 16 04/16/19 05:38 99.3 F 70 16 118/86 96 Intake and Output 04/16/19 04/16/19 04/17/19 14:59 22:59 06:59 Intake Total 1750 Balance 1750 Intake: Intake, IV Titration 1300 Amount Acyclovir Sodium 800 mg 200 In Sodium Chloride 0.9% 250 ml @ 266 mls/hr IV ONCE ONE Rx#:[id number] Sodium Chloride 0.9% 1, 850 000 ml @ 75 mls/hr IV . [id number] [facility] Rx#:[id number] Vancomycin 1,500 mg In 250 Sodium Chloride 0.9% 250 ml @ 125 mls/hr IVPB Q12H [facility] Rx#:[id number] Oral 450 Other: Voiding Method Toilet Toilet # Voids 3 1 Pleasant 64-year-old male quite uncomfortable HEENT: Anicteric conjunctiva are pink and moist nasal mucosa grossly intact without significant lesions, there is no thrush. No significant oral lesions are visualized yet at this time Neck: The neck is supple without significant lymphadenopathy or thyromegaly. Lungs: Good bilateral air entry without significant crackles or wheezing. There is no significant bronchial sounds. There is no egophony or dullness. Heart: Regular rate and rhythm with an audible S1-S2, no S3 no S4. There is no significant murmur click or rub, PMI was nondisplaced. Abdomen: Positive bowel sounds soft and nontender without palpable masses or organomegaly. There was no guarding or rebound. Extremities: The upper extremities have excellent pulses they are symmetric, no significant petechiae or telangiectasia. No splinter hemorrhages were noted. The lower extremities are free from significant edema. The peripheral pulses were 2+ and symmetric. Neuro: Awake alert oriented to person place and time. There are no acute new gross focal sensory motor deficits. Skin: Evidence of the extensive blistering rash to the left groin area with dense erythema is quite confluent with scattered vesicles on the face scalp upper arms and upper legs, palms and soles are spared at this time. Believes he may be having a lesion starting on the roof of his mouth. Results CBC & Chem 7: 04/16/19 07:04 04/16/19 07:04 Labs: Abnormal Lab Results - Last 24 Hours (Table) 04/16/19 Range/Units 07:04 WBC 1.8 L (3.8-10.6) k/uL RBC 3.39 L (4.30-5.90) m/uL Hgb 10.0 L (13.0-17.5) gm/dL Hct 32.0 L (39.0-53.0) % RDW 17.9 H (11.5-15.5) % Plt Count 37 L (150-450) k/uL Lymphocytes # 0.1 L (1.0-4.8) k/uL Microbiology - Last 24 Hours (Table) 04/15/19 17:10 Blood Culture - Preliminary Blood No Growth after 24 hours Laboratory Results WBC 1.8 k/uL (3.8-10.6) L 04/16/19 07:04 RBC 3.39 m/uL (4.30-5.90) L 04/16/19 07:04 Hgb 10.0 gm/dL (13.0-17.5) L 04/16/19 07:04 Hct 32.0 % (39.0-53.0) L 04/16/19 07:04 MCV 94.5 fL (80.0-100.0) 04/16/19 07:04 MCH 29.4 pg (25.0-35.0) 04/16/19 07:04 MCHC 31.1 g/dL (31.0-37.0) 04/16/19 07:04 RDW 17.9 % (11.5-15.5) H 04/16/19 07:04 Plt Count 37 k/uL (150-450) L 04/16/19 07:04 Neutrophils % 82 % 04/16/19 07:04 Lymphocytes % 6 % 04/16/19 07:04 Monocytes % 5 % 04/16/19 07:04 Eosinophils % 5 % 04/16/19 07:04 Basophils % 0 % 04/16/19 07:04 Neutrophils # 1.5 k/uL (1.3-7.7) 04/16/19 07:04 Lymphocytes # 0.1 k/uL (1.0-4.8) L 04/16/19 07:04 Monocytes # 0.1 k/uL (0-1.0) 04/16/19 07:04 Eosinophils # 0.1 k/uL (0-0.7) 04/16/19 07:04 Basophils # 0.0 k/uL (0-0.2) 04/16/19 07:04 Manual Slide Review Performed 04/15/19 17:10 Large Platelets Present 04/15/19 17:10 Polychromasia Present 04/15/19 17:10 Anisocytosis Slight 04/16/19 07:04 Sodium 133 mmol/L (137-145) L 04/15/19 17:10 Potassium 4.2 mmol/L (3.5-5.1) 04/15/19 17:10 Chloride 100 mmol/L (98-107) 04/15/19 17:10 Carbon Dioxide 25 mmol/L (22-30) 04/15/19 17:10 Anion Gap 8 mmol/L 04/15/19 17:10 BUN 26 mg/dL (9-20) H 04/15/19 17:10 Creatinine 0.86 mg/dL (0.66-1.25) 04/16/19 07:04 Est GFR (CKD-EPI)AfAm >90 (>60 ml/min/1.73 sqM) 04/16/19 07:04 Est GFR (CKD-EPI)NonAf >90 (>60 ml/min/1.73 sqM) 04/16/19 07:04 Glucose 93 mg/dL (74-99) 04/15/19 17:10 Plasma Lactic Acid [place] 1.8 mmol/L (0.7-2.0) 04/15/19 17:10 Calcium 7.9 mg/dL (8.4-10.2) L 04/15/19 17:10 Phosphorus 3.0 mg/dL (2.5-4.5) 04/16/19 07:04 Total Bilirubin 0.6 mg/dL (0.2-1.3) 04/15/19 17:10 AST 36 U/L (17-59) 04/15/19 17:10 ALT 29 U/L (21-72) 04/15/19 17:10 Alkaline Phosphatase 45 U/L (38-126) 04/15/19 17:10 Total Protein 6.7 g/dL (6.3-8.2) 04/15/19 17:10 Albumin 3.3 g/dL (3.5-5.0) L 04/15/19 17:10 Urine Color Yellow 04/15/19 18:35 Urine Appearance Clear (Clear) 04/15/19 18:35 Urine pH 7.0 (5.0-8.0) 04/15/19 18:35 Ur Specific [place] 1.024 (1.001-1.035) 04/15/19 18:35 Urine Protein 1+ (Negative) H 04/15/19 18:35 Urine Glucose (UA) Negative (Negative) 04/15/19 18:35 Urine Ketones Negative (Negative) 04/15/19 18:35 Urine Blood Small (Negative) H 04/15/19 18:35 Urine Nitrite Negative (Negative) 04/15/19 18:35 Urine Bilirubin Negative (Negative) 04/15/19 18:35 Urine Urobilinogen <2.0 mg/dL (<2.0) 04/15/19 18:35 Ur Leukocyte Esterase Negative (Negative) 04/15/19 18:35 Urine RBC 15 /hpf (0-5) H 04/15/19 18:35 Urine WBC 2 /hpf (0-5) 04/15/19 18:35 Urine Mucus Rare /hpf (None) H 04/15/19 18:35 Microbiology 04/15/19 17:10 Blood Blood Culture - Preliminary No Growth after 24 hours Assessment and Plan (1) Disseminated herpes zoster Narrative/Plan: 64-year-old male presents to Hospital feeling poorly has evidence of a fever at the time of his admission 102.9 with chills in the distinct fascicular rash becoming confluent in the left groin area with scattered vesicles on the face scalp arms and legs CONSISTENT with disseminated zoster in this immunocompromised host. He is appropriate negative pressure therapy room. Patient is acyclovir has been initiated 800 mg every 8 hours. With the immunocompromised status in the extensive involvement vancomycin therapy has been initiated and will be monitored while he is in hospital. Some topical Silvadene to be applied to the area see if this cannot improve how the groin is feeling. Some calamine can be applied to the lesions on the face and scalp to help the discomfort. Oral chemotherapy is on hold until he has recovered from this viral infection. Current Visit: Yes Status: Acute Code(s): B02.7 - DISSEMINATED ZOSTER SNOMED Code(s): 52650302 (2) Herpes zoster ophthalmicus of left eye Current Visit: Yes Status: Acute Code(s): B02.30 - ZOSTER OCULAR DISEASE, UNSPECIFIED SNOMED Code(s): 71713571 (3) Multiple myeloma Current Visit: Yes Status: Acute Code(s): C90.00 - MULTIPLE MYELOMA NOT HAVING ACHIEVED REMISSION SNOMED Code(s): 489613653 (4) Fever Current Visit: Yes Status: Acute Code(s): R50.9 - FEVER, UNSPECIFIED SNOMED Code(s): 926601165
[2019-04-17] MEDS: ERYTHROMYCIN 5 MG/GM OPHTH OINT 3.5 GM TUBE LEFT EYE SCH ×4 (00:27→14:06)
[2019-04-17] MEDS: ACYCLOVIR SODIUM 800 MG in SODIUM CHLORIDE 0.9% 250 ML IV SCH ×4 (00:27→23:20)
[2019-04-17] MEDS: TRIFLURIDINE 1% OPHTH DROPS 7.5 ML BTL LEFT EYE SCH ×7 (00:27→14:06)
[2019-04-17] MEDS ORDERED: CALAMINE/ZINC OXIDE LOTION 177 ML BTL TOPICAL PRN (00:30)
[2019-04-17] MEDS ORDERED: VANCOMYCIN TROUGH DUE 1 EACH MISC MISCELLANE ONE (06:00)
[2019-04-17 08:09] LABS: African American GFR (CKD) >90 (>60 ml/min/1.73 sqM)
[2019-04-17] MEDS: POTASSIUM CHLORIDE ER 10 MEQ TAB.ER.PRT PO SCH (08:14)
[2019-04-17] MEDS: FAMOTIDINE 20 MG TAB PO PRN (08:14)
[2019-04-17] MEDS: GABAPENTIN 300 MG CAP PO SCH ×3 (08:14→21:01)
[2019-04-17] MEDS: SODIUM CHLORIDE 0.9% 1,000 ML IV SCH (08:27)
[2019-04-17] MEDS: VANCOMYCIN 1,500 MG in SODIUM CHLORIDE 0.9% 250 ML IVPB SCH (10:12)
--- NOTE | 2019-04-17 10:28 | P.CONS ---
History of Present Illness - Reason for Consult Consult date: 04/16/19 MM Requesting physician: Devon Ferro - Chief Complaint Groin/back rash - History of Present Illness Mr. Paul is a very pleasant 64 yo male with history of MM, recently started on darzalex/pomalyst/dex due to recent disease progression, who is here for groin and low back rash. Associated fevers. Also with some lesions on his face and arms. Rash felt to be due to shingles with superimposed cellulitis. On IV acyclovir and vancomycin, with ID following. CBC with pancytopenia from underlying MM and chemotherapy. Cancer History: He follows with Dr. Browning This is a very nice patient who presented with progressive back pain,started around ,he was evaluated by orthopedic,had XR of the spine which revealed compression fracture. On 11/28/2015,limited bone scan revealed osteoporotic compression fracture at L1-L2. On 12/17/2015,CMP revealed significantly elevated total protein (11.4dm/dl),calcium level 10.2,creatinine 1.18,CBC revealed hemoglobin of 9.4gm/dl,PSA 0.5,SPEP and immunofixation revealed IgG lambda monoclonal protein,M-protein of 6.8gm/d,serum lambda level 4.14mg/dl,kappa/lambda ratio 0.04. On 12/27/2015,CT scan of lumbar spine revealed demineralization and compression fracture at L1. On 12/29/2015,MRI of thoracic and lumbar spine multiple lytic lesions,compression at L1,no soft tissue component or mass effects (It was reviewed by myself and Dr Jackson in radiology). He was admitted to [facility] on 12/27/2015,for back pain and discharged with supportive brace,he also received a dose of pamidronate. On 01/01/2016,SPEP and immunofixation revealed IgG Lambda M-protein of 4.8gm/dl,IgG 7191mg/dl,CMP revealed normal calcium and creatinine,normal Ashmore/lambda ratio,B2 microglobin level 2.8,serum albumin 2.6. 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 He started RVD on 01/11/2016. On 01/31/2016,M-spike was 0.88gm/dl,IgG level 1410 mg/dl.Normal calcium and creatinine. On 02/20/2016,M-spike was down to 0.4,IgG 692mg/dl,normal calcium and creatinine. He completed 4 cycles on 03/28/2016. Repeat bone marrow biopsy on 05/04/2016 revealed no evidence of myeloma mor phologically,however,flowcytometry revealed minimal residual disease. He was in process of proceeding with autologous stem cell transplant,however,he developed numbness in his feet,then significant weakness in both legs,right worse than left,he was [facility] on 04/[facility]/2016 due to hyponatremia,which resolved. Repeat MRI of thoracic and lumbar spine on 04/28/2016 revealed new compression fracture at T11,he was seen by Dr Oneil on 04/29/2016 and physical therapy was recommended. On 04/28/2016,M-protein was 0.3gm/dl,sodium was 137. On 06/03/2016,M-protein was 0.27gm/dl. On 06/09/2016,EGD/Colonoscopy revealed mild gastritis. Subsequently,he underwent autologous stem cell transplant on 08/27/2016. On 11/04/2016,M-protein was 0.2gm/dl On 01/02/2017,SPEP and immunofixation revealed no M-protein,normal kappa/lambda ratio and normal CBC,CMP. On 01/14/2017,repeat MRI of spine revealed old compression fracture and arthrtic changes. He started maintenance revlimid 5 mg/day by the end of . On 01/28/2017,SPEP and immunofixation did not reveal any obvious monoclonal protein, On 03/12/2017,SPEP and immunofixation revealed 0.3gm/dl M protein,normal CMP (except for slightly low K),normal kappa/lambda ratio. On 06/03/2017,SPEP,immunofixation did not reveal any obvious monoclonal protein,kappa/lambda ratio was normal. On 06/02/2017,maintenance revlimid was held due to progressing pancytopenia On 07/30/2017,SPEP and immunofixation did not reveal any monoclonal protein,normal CMP and normal kappa/lambda. On 09/01/2017,SPEP and immunofixation revealed small IgG kappa monoclonal protein (M-spike 0.06 and 0.09gm/dl) On 09/01/2017,he resumed revlimid at 5 mg po daily day1-21 every 28 days cycle. On 10/26/2017,SPEP and immunofixation did not reveal any obvious monoclonal protein,normal kappa/lambda ratio,normal CMP On 12/15/2017,SPEP revealed M-protein of 0.19gm/dl,CMP unremarkable except for slightly low K+ On 03/16/2018,SPEP,immunofixation revealed no obvious monoclonal protein,normal kappa/lambda ratio and normal CMP. On 03/16/2018,SPEP and immunofixation did not reveal any obvious monoclonal protein,IgG was 736mg/dl,normal Ashmore/lambda ratio,unremarkable CMP On 03/16/2018,revlimid was held due to neutropenia which then improved and was r esumed on 04/12/2018 (5mg/day,3 weeks on/2 weeks off) On 09/09/2019,myeloma work up revealed a very small M-protein of 0.1,normal kappa/lambda ratio,CMP and CBC. On 12/14/2018,SPEP and immunofixation revealed very small M-protein,normal kappa/lambda ratio,CMP He started to have worsening back pain in January/2019,he was referred to have MRI of his lumbar spine,which was done on 03/10/2019 which revealed progressing soft tissue mass at L2 causing compression of the thecal sac and L3 nerve root and new paraspinal soft tissue mass at L4-L5. On 03/08/2019,M-protein was up to 2.2gm/dl,Ig level up to 3-19mg/dl,free lambda level 148.9mg/L,ratio of 0.04,normal creatinine and calcium,repeat skeletal bone survey revealed no changes. 03/15/19: He continues to have back pain,radiating to right leg,no change in bowel habits or urinary symptoms,he was started on neurontin by Dr Arciniega,,he is taking double the dose of his oxycodon,he saw rad/onc earlier today and plan to start XRT on Thursday/.he is ambulating okay,no constipation,has his stable mild neuropathy. Due to progression on maintenance revlimid, plan to start darzalex/pomalyst/dex combination after completing palliative XRT to L spine. 04/07/19: C1D1 of darzalex/pomalyst/dex Review of Systems All systems: negative Constitutional: Reports as per HPI Past Medical History Past Medical History: Cancer, Hyperlipidemia Additional Past Medical History / Comment(s): Hx. vertebral stress fx. shingles 2013, multiple myeloma-dx. 2015 finished chem jul 2016, stem cell transplant 09/03, wound rt heel- healed, neuropathy, chronic back, knee and lt hip pain,. Currently on oral chemo- 3 weeks on, 2 off. 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 Smoking Status: Former smoker Past Alcohol Use History: None Reported Additional Past Alcohol Use History / Comment(s): started smoking age 17 and quit age 27, smoked 1ppd Past Drug Use History: None Reported, Marijuana Additional Drug Use History / Comment(s): Pt states that he occasionally smokes marijuana to help with pain - Past Family History Father Family Medical History: Renal Disease Additional Family Medical History / Comment(s): aaa, Mother Family Medical History: No Reported History Additional Family Medical History / Comment(s): mom is healthy Medications and Allergies Home Medications Medication Instructions Recorded Confirmed Type oxyCODONE HCL [OxyIR] 5 mg PO Q6H 02/05/17 04/15/19 History Potassium Bicarbonate/Cit AC 25 meq PO DAILY 03/08/18 04/15/19 History [Klor-Con 25 (Effer. Tab)] Dexamethasone 20 mg PO WE 04/15/19 04/15/19 History Famotidine [Pepcid] 20 mg PO BID PRN 04/15/19 04/15/19 History Gabapentin [Neurontin] 300 mg PO TID 04/15/19 04/15/19 History Nitroglycerin 0.3mg Sl Tab 0.3 mg SL Q5M PRN 04/15/19 04/15/19 History Ondansetron HCl [Zofran] 4 mg PO Q4H PRN 04/15/19 04/15/19 History Pomalyst 4mg Cap 4 mg PO HS 04/15/19 04/15/19 History valACYclovir [Valtrex] 1,000 mg PO TID 04/15/19 04/15/19 History Allergies Allergy/AdvReac Type Severity Reaction Status Date / Time sulfamethoxazole AdvReac Rash/Hives Verified 04/15/19 18:07 [From Bactrim] trimethoprim [From Bactrim] AdvReac Rash/Hives Verified 04/15/19 18:07 Physical Exam Vitals: Vital Signs Temp Pulse Pulse Resp BP BP Pulse Ox 04/16/19 16:22 16 04/16/19 07:33 16 04/16/19 05:38 99.3 F 70 16 118/86 96 04/15/19 23:00 99.2 F 76 20 125/70 95 04/15/19 21:33 98.9 F 74 18 108/72 99 04/15/19 19:35 77 18 129/82 99 Intake and Output 04/16/19 04/16/19 04/16/19 06:59 14:59 22:59 Intake Total 1220 1750 Balance 1220 1750 Intake: Intake, IV Titration 1100 1300 Amount Acyclovir Sodium 800 mg 250 200 In Sodium Chloride 0.9% 250 ml @ 266 mls/hr IV ONCE ONE Rx#:[id number] Sodium Chloride 0.9% 1, 600 850 000 ml @ 75 mls/hr IV . [id number] NNAMDI Rx#:[id number] Vancomycin 1,500 mg In 250 Sodium Chloride 0.9% 250 ml @ 125 mls/hr IVPB ONCE STA Rx#:[id number] Vancomycin 1,500 mg In 250 Sodium Chloride 0.9% 250 ml @ 125 mls/hr IVPB Q12H NNAMDI Rx#:[id number] Oral 120 450 Other: Voiding Method Toilet Toilet # Voids 3 3 1 General: In no acute distress. HEENT: Mucosa moist. Neck: Neck supple. Lungs: CTA-B Heart:Regular rate. Abdomen: Soft. MSK: 4/4 strength in all 4 extremities. Neuro: Alert and oriented 3. No obvious gross neurologic deficits. Skin: No jaundice. Psych: Appropriate affect. Results CBC & Chem 7: 04/16/19 07:04 04/17/19 07:25 Labs: Abnormal Lab Results - Last 24 Hours (Table) 04/16/19 Range/Units 07:04 WBC 1.8 L (3.8-10.6) k/uL RBC 3.39 L (4.30-5.90) m/uL Hgb 10.0 L (13.0-17.5) gm/dL Hct 32.0 L (39.0-53.0) % RDW 17.9 H (11.5-15.5) % Plt Count 37 L (150-450) k/uL Lymphocytes # 0.1 L (1.0-4.8) k/uL Microbiology - Last 24 Hours (Table) 04/15/19 17:10 Blood Culture - Preliminary Blood No Growth after 24 hours Chest x-ray: report reviewed Assessment and Plan Assessment: 1. Shingles affecting > 1 dermatome 2. Possible superimposed cellulitis 3. MM 4. Pancytopenia, due to MM and chemotherapy Plan: Mr. Paul is a very pleasant 64 yo male with history of recently progressed MM, started on darzalex/pomalyst/decadron, who is here for disseminated shingles with superimposed infection. Shingles and cellulitis being managed by ID with IV acyclovir and Vancomycin. For now, will hold pomalyst until infection improves. Likely will need to hold next dose of darzalex due as well, however will monitor pt's progress and determine this when infusion due. He also has pancytopenia due to MM and infe ction. For now, recommend supportive transfusion with pRBC and plt for Hgb <7 or plt <15. No neutropenic and no need for G-CSF at this time. Will continue to monitor CBCD. Discussed with pt and family at bedside and they are agreeable to the plan. All questions answered.
[2019-04-17] MEDS ORDERED: PROPARACAINE 0.5% OPHTH DROPS 15 ML BTL BOTH EYES STA (11:46)
[2019-04-17] MEDS ORDERED: TROPICAMIDE 1% OPHTH DROPS 2 ML BTL BOTH EYES ONE (11:55)
[2019-04-17] MEDS ORDERED: ARTIFICIAL TEARS-HYPROMELLOSE DROPS 15 ML BTL BOTH EYES PRN (13:15)
[2019-04-17] MEDS: PHENYLEPHRINE 2.5% OPHTH DRP 2ML BOTH EYES SCH (13:21)
--- NOTE | 2019-04-17 13:58 | P.CON ---
Consult Note - . Consult date: 04/17/19 Assessment/Plan:: 64 y/o male with recent history of recurrence of multiple myeloma who is presenting with disseminated HZV for the last 3 days. He has been admitted for aggressive systemic treatment. There is a concern of ophthalmic involvement and therefore an ophthalmology consultation has been placed. Discussion with patient reveals no specific complaints of involvement of the eyes. He denies photophobia, physical irritation or pain of the eye, blurring of the vision or other specific eye complaints. He states his last eye exam was approximately 2 years ago, and he currently only uses reading glasses for near vision. He has had no previous known herpes involvement of the eyes or trauma. He also denies any previous surgery or eye problems, e.g., glaucoma. He is currently on erythromycin ointment and Viroptic drops for the eyes. PE: Va w/o nick: 20/30 OD, 20/30 OS CF: full OU Pupils: -APD IOP TP @ 1255: 12 mm Hg OD, 10 mm Hg OS EXT: no open lesions on eyelid or adnexa Conj: white and quiet, no staining Coats: clear without herpetic staining, some mild SPK OU AC: deep & quiet OU Iris: no lesions or increased vascularity Dilated Jaden/trop @ 1300 Lens: trace NS OD>OS, 1-2+ CS OD Vitreous: clear, normal syneresis Optic nerve: sharp, flat, pink OU: C:D 0.25 OU Mac: quiet, normal foveolar light reflex, Vasc: normal 0.67 throughout Periph: retina intact 360, single heme aneurysm inferior, OS. A: 1) recurrent multiple myeloma with new onset disseminated HZV withOUT ophthalmic involvement OU 2) early cataract OU P: recommend artificial tears alone for the eyes continue with planned systemic treatment as dictated by ID I have stopped the Viroptic & erythromycin ointment for the eyes and started artificial tears as lubricating drops Would like to see in a few weeks after discharge for follow up after release, recommend at least annual exam. Thank you for consultation and will return on your request while still in-house, as needed.
[2019-04-17] MEDS: ACETAMINOPHEN TAB 325 MG TAB PO PRN (14:42)
[2019-04-17] MEDS: VANCOMYCIN 1,250 MG in SODIUM CHLORIDE 0.9% 250 ML IVPB SCH (19:37)
--- NOTE | 2019-04-17 23:06 | P.PN ---
Progress Note - Text Progress Note Date: 04/17/19 Chief Complaint: Painful rash Interval history: This is a very pleasant 64-year-old patient of Dr. Pierson. Patient's chronic stable medical conditions include hyperlipidemia, kidney dysfunction is a walker, peripheral neuropathy, minimal coronary artery disease per headache catheterization 30%. Patient had his first dose of chemotherapy a week ago. Second was given 2 days ago. Patient started out with a rash that started in the groin area went to the back and a little scattered all over the body but predominantly in that dermatome in the left groin area.'s painful itchy red. Patient had some fever and chills. Decreased appetite. Rundown and tired. Clinical picture was compatible with herpes zoster and patient started on IV acyclovir. For secondary infection also on vancomycin. Admitted for the same and put him contact precautions. Patient's is at the bedside. Today-feels a bit better.. Despite fever this morning,. Appetite is better. The herpes rash is more prominent. Less painful though. Review of systems: Was done for constitutional, cardiovascular, GI, pulmonary. relevant finding as above Current medications reviewed that included: IV acyclovir, vancomycin, calamine lotion Physical examination: VITAL SIGNS: 102.6, 76, 16, 117/67, GENERAL: sitting up on a chair looks issued better EYES: Pupils equal. Conjunctiva normal. HEENT: External appearance of nose and ears normal, oral cavity grossly normal. NECK: JVD not raised; masses not palpable. HEART: First and second heart sounds are normal; no edema. LUNGS: Respiratory rate normal; clear to auscultation. ABDOMEN: Soft, nontender, liver spleen not palpable, no masses palpable. PSYCH: [Alert and oriented x3; mood and affect anxious l. DERMATOLOGICAL: There is reddish patches with a raised center green color with some papules, in the lumbar distribution. Also's somebody's as his rashes are present in the torso and the forehead also in the limbs Investigations reviewed in the clinical context: Creatinine 0.87 Assessment: -Generalized herpes zoster, in a patient who is immunosuppressed getting treatment for his multiple myeloma with secondary fever could be from secondary infection or could be from the herpes zoster infection itself, since spiking fevers -Multiple myeloma getting chemotherapy -hyperlipidemia -chronic gait dysfunction uses a walker -peripheral neuropathy side effect of chemotherapy -Minimal coronary artery disease per cardiac catheterization 30% disease -Pancytopenia from chemotherapy - Plan: Continue with IV acyclovir and IV vancomycin. Care was discussed with the patient. Clinically appears to be a bit better. Appetite is picking up. Repeat labs in the morning.
[2019-04-18] MEDS: SODIUM CHLORIDE 0.9% 1,000 ML IV SCH ×2 (00:13→15:56)
[2019-04-18] MEDS: ACETAMINOPHEN TAB 325 MG TAB PO PRN (00:14)
[2019-04-18] MEDS: VANCOMYCIN 1,250 MG in SODIUM CHLORIDE 0.9% 250 ML IVPB SCH ×4 (02:06→18:33)
[2019-04-18] MEDS: IBUPROFEN 400 MG TAB PO PRN ×2 (05:07→20:28)
[2019-04-18] MEDS: ACYCLOVIR SODIUM 800 MG in SODIUM CHLORIDE 0.9% 250 ML IV SCH ×2 (08:43→17:38)
[2019-04-18] MEDS: POTASSIUM CHLORIDE ER 10 MEQ TAB.ER.PRT PO SCH (08:44)
[2019-04-18] MEDS: GABAPENTIN 300 MG CAP PO SCH ×2 (08:45→17:25)
[2019-04-18] MEDS: PHENYLEPHRINE 2.5% OPHTH DRP 2ML BOTH EYES SCH ×2 (10:36→15:45)
[2019-04-18 11:07] LABS: Anisocytosis Slight; HCT 29.1 % (39.0-53.0); HGB 9.5 gm/dL (13.0-17.5); MCH 30.7 pg (25.0-35.0); MCHC 32.7 g/dL (31.0-37.0); MCV 93.7 fL (80.0-100.0); Platelet Count 30 k/uL (150-450); RDW 17.7 % (11.5-15.5)
[2019-04-18 11:15] LABS: WBC 1.3 k/uL (3.8-10.6)
[2019-04-18 11:28] LABS: African American GFR (CKD) >90 (>60 ml/min/1.73 sqM); Anion Gap 7 mmol/L; Blood Urea Nitrogen 15 mg/dL (9-20); Calcium 6.7 mg/dL (8.4-10.2); Carbon Dioxide 20 mmol/L (22-30); Chloride 106 mmol/L (98-107); Glucose 103 mg/dL (74-99); Potassium 3.3 mmol/L (3.5-5.1); Sodium 133 mmol/L (137-145)
[2019-04-18 13:27] LABS: Band Neutrophils % 1 %; Eosinophils # (M) 0.05 k/uL (0-0.7); Lymphocytes # (M) 0.38 k/uL (1.0-4.8); Monocytes # (M) 0.05 k/uL (0-1.0); Neutrophils % (M) 62 %; Nucleated Red Blood Cells 0 /100 WBC (0-0); Total Cells Counted 100
[2019-04-18 13:28] LABS: Poikilocytosis (M) Present
--- NOTE | 2019-04-18 13:55 | P.PN ---
Subjective Progress Note Date: 04/18/19 Principal diagnosis: Disseminated Shingles and Pancytopenia Neutrophils have dropped will initiate GCSF. 102 t max yesterday. Objective - Vital Signs Vital signs: Vital Signs Temp 98.6 F 04/18/19 12:14 Pulse 78 04/18/19 12:14 Resp 18 04/18/19 12:14 BP 90/53 04/17/19 23:00 Pulse Ox 99 04/18/19 12:14 Intake & Output 04/17/19 04/18/19 04/18/19 18:59 06:59 18:59 Intake Total 600 1575 Balance 600 1575 Intake: Intake, IV Titration 500 1575 Amount Acyclovir Sodium 800 mg 250 In Sodium Chloride 0.9% 250 ml @ 266 mls/hr IV Q8HR NNAMDI Rx#:[id number] Sodium Chloride 0.9% 1, 825 000 ml @ 75 mls/hr IV . [id number] NNAMDI Rx#:[id number] Vancomycin 1,250 mg In 250 250 Sodium Chloride 0.9% 250 ml @ 125 mls/hr IVPB Q8H NNAMDI Rx#:[id number] Vancomycin 1,500 mg In 500 Sodium Chloride 0.9% 250 ml @ 125 mls/hr IVPB Q12H NNAMDI Rx#:[id number] Oral 100 Other: Voiding Method Toilet Toilet Urinal # Voids 2 1 - Exam General: Alert and Oriented x3, No Acute Distress Head: Normocytic, Atraumatic Neck: Supple Mouth: No Lesions, No Thrush Eyes: Non-sclerotic No Palpable cervical, supraclavicular, axillary adenopathy Heart: Regular Rate, Regular Rhythm Lungs: Clear to Ausculations, No Wheeze, No Rhonchi, Diminishe bilateral lower lobes, No increased respiratory effort noted Abdomen: Soft, Non-Distended, Non-Tended, BSx4 Extremities: No Edema, Equal Strength Neurological: No Focal Defects: No sensory or motor deficits noted Psych: Calm and cooperative Skin lesions groin area went to the back mainly left side, associated erythema and evidence of probable secondary infection - Labs CBC & Chem 7: 04/18/19 10:29 04/18/19 09:57 Labs: Abnormal Lab Results - Last 24 Hours (Table) 04/18/19 04/18/19 Range/Units 09:57 10:29 WBC 1.3 L* (3.8-10.6) k/uL RBC 3.10 L (4.30-5.90) m/uL Hgb 9.5 L (13.0-17.5) gm/dL Hct 29.1 L (39.0-53.0) % RDW 17.7 H (11.5-15.5) % Plt Count 30 L (150-450) k/uL Neutrophils # (Manual) 0.80 L (1.3-7.7) k/uL Lymphocytes # (Manual) 0.38 L (1.0-4.8) k/uL Sodium 133 L (137-145) mmol/L Potassium 3.3 L (3.5-5.1) mmol/L Carbon Dioxide 20 L (22-30) mmol/L Glucose 103 H (74-99) mg/dL Calcium 6.7 L (8.4-10.2) mg/dL Microbiology - Last 24 Hours (Table) 04/15/19 17:10 Blood Culture - Preliminary Blood No Growth after 48 hours Assessment and Plan Plan: Assessment and recommendations: Multiple Myeloma: - Treatment with Darzalex, Zometa, dex - On hold until acute infectious process improves Fevers with Hypotension: - Secondary to Viral and secondary bacterial infection Disseminated Shingles with Secondary Cellulitis Features: - Agree with Antiviral and anti-bacterial - Infectious disease following Pancytopenia with Neutropenia: - Initiate GCSF today. Fever and Neutrophils 0.80 - Daily CBC - Continue Supportive Care
[2019-04-18 15:22] LABS: Partial Thromboplastin Time 26.2 sec (22.0-30.0); Prothrombin Time 10.6 sec (9.0-12.0)
[2019-04-18] MEDS: FILGRASTIM-SNDZ 480 MCG/0.8 ML SYRINGE SQ SCH (17:24)
--- NOTE | 2019-04-18 18:20 | P.PN ---
Subjective very pleasant 64 gentleman with history significant for multiple myeloma. Patient is on chemotherapy for multiple myeloma. He finished his second chemotherapy session. 2 days after he developed painful rash in the left groin area and lesions in the face arms. He does comes to the hospital. He was diagnosed with dizziness is zoster. He was started on IV Cipro and IV vancomycin. Patient is in isolation. Patient says that the lesions are healing but still painful . He does not otherwise complain of any new lesions, no fever no chills, No abdominal pain, nausea and vomiting, or diarrhea constipation,. He does not complain of any visual changes or confusion. No chest pain or racing heart Objective - Vital Signs Vital signs: Vital Signs Temp 98.6 F 04/18/19 12:14 Pulse 80 04/18/19 12:14 Resp 18 04/18/19 12:14 BP 94/60 04/18/19 12:14 Pulse Ox 99 04/18/19 12:14 Intake & Output 04/17/19 04/18/19 04/18/19 18:59 06:59 18:59 Intake Total 600 1575 590 Balance 600 1575 590 Intake: Intake, IV Titration 500 1575 Amount Acyclovir Sodium 800 mg 250 In Sodium Chloride 0.9% 250 ml @ 266 mls/hr IV Q8HR NNAMDI Rx#:[id number] Sodium Chloride 0.9% 1, 825 000 ml @ 75 mls/hr IV . [id number] NNAMDI Rx#:[id number] Vancomycin 1,250 mg In 250 250 Sodium Chloride 0.9% 250 ml @ 125 mls/hr IVPB Q8H NNAMDI Rx#:[id number] Vancomycin 1,500 mg In 500 Sodium Chloride 0.9% 250 ml @ 125 mls/hr IVPB Q12H NNAMDI Rx#:[id number] Oral 100 590 Other: Voiding Method Toilet Toilet Urinal # Voids 2 1 3 - Exam On exam, alert and oriented x3. HEENT: Conjunctivae normal. eyes normal. NECK: No JVD. No thyroid enlargement. No LNs CARDIOVASCULAR: S1-S2 positive RESPIRATION: Breath sounds diminished in the bases. No rhonchi or crackles. No bronchial breathing. ABDOMEN: Soft, nontender . No guarding. no masses palpable. No ascites, No hepatosplenomegaly.Bowel sounds heard. LEGS: No edema. no swelling NERVOUS SYSTEM: Cranial N 2-12 grossly normal. Moves all 4 limbs. No focal deficits. No sensory deficit. No signs of cerebellar dysfucntion. Skin: patient has rash in his left groin which is blistering with dense erythema. Patient is also having cycles. He also has a rash in the face upper arms and upper legs. - Labs CBC & Chem 7: 04/18/19 10:29 04/18/19 09:57 Labs: Abnormal Lab Results - Last 24 Hours (Table) 04/18/19 04/18/19 Range/Units 09:57 10:29 WBC 1.3 L* (3.8-10.6) k/uL RBC 3.10 L (4.30-5.90) m/uL Hgb 9.5 L (13.0-17.5) gm/dL Hct 29.1 L (39.0-53.0) % RDW 17.7 H (11.5-15.5) % Plt Count 30 L (150-450) k/uL Neutrophils # (Manual) 0.80 L (1.3-7.7) k/uL Lymphocytes # (Manual) 0.38 L (1.0-4.8) k/uL Sodium 133 L (137-145) mmol/L Potassium 3.3 L (3.5-5.1) mmol/L Carbon Dioxide 20 L (22-30) mmol/L Glucose 103 H (74-99) mg/dL Calcium 6.7 L (8.4-10.2) mg/dL Microbiology - Last 24 Hours (Table) 04/15/19 17:10 Blood Culture - Preliminary Blood No Growth after 48 hours Assessment and Plan Plan: - disseminated zoster - Multiple myeloma on chemo - Leukopenia - Hyperlipidemia - Peripheral neuropathy - Mild CAD Plan - Continue antibiotics and antivirals as per ID recommendations - patient was givenGCSF FOR NEUTROPENIA - We'll continue rest of the medical care - Continue isolation protocol - We'll follow the patient
[2019-04-19] MEDS: ACETAMINOPHEN TAB 325 MG TAB PO PRN (00:01)
[2019-04-19] MEDS: GABAPENTIN 300 MG CAP PO SCH ×4 (00:02→22:09)
[2019-04-19] MEDS: ACYCLOVIR SODIUM 800 MG in SODIUM CHLORIDE 0.9% 250 ML IV SCH ×3 (00:02→17:09)
[2019-04-19] MEDS: SODIUM CHLORIDE 0.9% 1,000 ML IV SCH ×2 (00:07→17:09)
[2019-04-19] MEDS: VANCOMYCIN 1,250 MG in SODIUM CHLORIDE 0.9% 250 ML IVPB SCH ×3 (01:31→17:10)
[2019-04-19] MEDS: POTASSIUM CHLORIDE ER 10 MEQ TAB.ER.PRT PO SCH (08:48)
[2019-04-19 08:59] LABS: Anisocytosis Slight; HCT 30.8 % (39.0-53.0); HGB 9.9 gm/dL (13.0-17.5); MCH 30.3 pg (25.0-35.0); MCHC 32.1 g/dL (31.0-37.0); MCV 94.4 fL (80.0-100.0); Mean Platelet Volume 8.3; RBC 3.26 m/uL (4.30-5.90); RDW 17.9 % (11.5-15.5)
[2019-04-19 09:06] LABS: Platelet Count 25 k/uL (150-450)
[2019-04-19 09:34] LABS: ALT 32 U/L (21-72); AST 28 U/L (17-59); African American GFR (CKD) >90 (>60 ml/min/1.73 sqM); Albumin 2.4 g/dL (3.5-5.0); Alkaline Phosphatase 65 U/L (38-126); Anion Gap 8 mmol/L; Blood Urea Nitrogen 12 mg/dL (9-20); Carbon Dioxide 19 mmol/L (22-30); Chloride 110 mmol/L (98-107); Glucose 83 mg/dL (74-99); Potassium 3.6 mmol/L (3.5-5.1); Sodium 137 mmol/L (137-145); Total Bilirubin 0.8 mg/dL (0.2-1.3)
[2019-04-19 09:39] LABS: Neutrophils % (M) 48 %
[2019-04-19 09:40] LABS: Band Neutrophils % 5 %; Eosinophils # (M) 0.02 k/uL (0-0.7); Monocytes # (M) 0.05 k/uL (0-1.0); Nucleated Red Blood Cells 0 /100 WBC (0-0); Poikilocytosis (M) Present; Total Cells Counted 100
--- NOTE | 2019-04-19 14:11 | P.PN ---
Subjective Progress Note Date: 04/19/19 Principal diagnosis: Disseminated Shingles and Pancytopenia Still febrile Neutropenia on Vancomycin and Acyclovir. Infectious Disease is following. He is scheduled to receive weekly Dexamethasone 40mg, PO today or tomorrow. In his current state it is resonable to hold as he is already immunosuppressed. Objective - Vital Signs Vital signs: Vital Signs Temp 98.4 F 04/19/19 12:18 Pulse 74 04/19/19 12:18 Resp 16 04/19/19 12:18 BP 103/67 04/19/19 12:18 Pulse Ox 98 04/19/19 12:18 Intake & Output 04/18/19 04/19/19 04/19/19 18:59 06:59 18:59 Intake Total 590 800 Balance 590 800 Intake: Intake, IV Titration 800 Amount Acyclovir Sodium 800 mg 250 In Sodium Chloride 0.9% 250 ml @ 266 mls/hr IV Q8HR [facility] Rx#:[id number] Sodium Chloride 0.9% 1, 300 000 ml @ 75 mls/hr IV . [id number] [facility] Rx#:[id number] Vancomycin 1,250 mg In 250 Sodium Chloride 0.9% 250 ml @ 125 mls/hr IVPB Q8H [facility] Rx#:[id number] Oral 590 Other: Voiding Method Toilet Urinal # Voids 3 2 - Exam General: Alert and Oriented x3, No Acute Distress Head: Normocytic, Atraumatic Neck: Supple Mouth: No Lesions, No Thrush Eyes: Non-sclerotic No Palpable cervical, supraclavicular, axillary adenopathy Heart: Regular Rate, Regular Rhythm Lungs: Clear to Ausculations, No Wheeze, No Rhonchi, Diminishe bilateral lower lobes, No increased respiratory effort noted Abdomen: Soft, Non-Distended, Non-Tended, BSx4 Extremities: No Edema, Equal Strength Neurological: No Focal Defects: No sensory or motor deficits noted Psych: Calm and cooperative Skin lesions groin area went to the back mainly left side, associated erythema and evidence of probable secondary infection - Labs CBC & Chem 7: 04/19/19 08:26 04/19/19 08:26 Labs: Abnormal Lab Results - Last 24 Hours (Table) 04/19/19 04/19/19 Range/Units 08:26 08:26 WBC 1.0 L* (3.8-10.6) k/uL RBC 3.26 L (4.30-5.90) m/uL Hgb 9.9 L (13.0-17.5) gm/dL Hct 30.8 L (39.0-53.0) % RDW 17.9 H (11.5-15.5) % Plt Count 25 L (150-450) k/uL Neutrophils # (Manual) 0.50 L (1.3-7.7) k/uL Lymphocytes # (Manual) 0.40 L (1.0-4.8) k/uL Chloride 110 H (98-107) mmol/L Carbon Dioxide 19 L (22-30) mmol/L Calcium 7.0 L (8.4-10.2) mg/dL Total Protein 5.0 L (6.3-8.2) g/dL Albumin 2.4 L (3.5-5.0) g/dL Microbiology - Last 24 Hours (Table) 04/15/19 17:10 Blood Culture - Preliminary Blood No Growth after 72 hours Assessment and Plan Plan: Assessment and recommendations: Multiple Myeloma: - Treatment with Darzalex, Zometa, dex - On hold until acute infectious process improves Fevers with Hypotension: - Secondary to Viral and secondary bacterial infection Disseminated Shingles with Secondary Cellulitis Features: - Agree with Antiviral and anti-bacterial - Infectious disease following Pancytopenia with Neutropenia: - Continue Fever and Neutrophils 0.50 - Daily CBC - Continue Supportive Care Plan: - Discussed with Primary Team and will hold his weekly dexamethasone until his overall fevers and immunosuppression improves - With now appearing febrile neutropenic, will discuss with Infectious disease related to adding additional gram negative coverage (i.e. zosyn or Cefepime), defer to ID. - Continue GSCF and Aggressive supportive care Nicolasa BARRIENTOS
--- NOTE | 2019-04-19 15:46 | P.PN ---
Subjective very pleasant 64 gentleman with history significant for multiple myeloma. Patient is on chemotherapy for multiple myeloma. He finished his second chemotherapy session. 2 days after he developed painful rash in the left groin area and lesions in the face arms. He does comes to the hospital. He was diagnosed with dizziness is zoster. He was started on IV Cipro and IV vancomycin. 04/18/2019 Patient is in isolation. Patient says that the lesions are healing but still painful . He does not otherwise complain of any new lesions, no fever no chills, No abdominal pain, nausea and vomiting, or diarrhea constipation,. He does not complain of any visual changes or confusion. No chest pain or racing heart 04/19/2019 Patient says that he still has pain in the left groin due to lesions He has fevers on and off still No chest pain or racing heart no visual changes no confusion Objective - Vital Signs Vital signs: Vital Signs Temp 98.4 F 04/19/19 12:18 Pulse 74 04/19/19 12:18 Resp 16 04/19/19 12:18 BP 103/67 04/19/19 12:18 Pulse Ox 98 04/19/19 12:18 Intake & Output 04/18/19 04/19/19 04/19/19 18:59 06:59 18:59 Intake Total 590 800 Balance 590 800 Intake: Intake, IV Titration 800 Amount Acyclovir Sodium 800 mg 250 In Sodium Chloride 0.9% 250 ml @ 266 mls/hr IV Q8HR [facility] Rx#:[id number] Sodium Chloride 0.9% 1, 300 000 ml @ 75 mls/hr IV . [id number] [facility] Rx#:[id number] Vancomycin 1,250 mg In 250 Sodium Chloride 0.9% 250 ml @ 125 mls/hr IVPB Q8H [facility] Rx#:[id number] Oral 590 Other: Voiding Method Toilet Urinal # Voids 3 2 - Exam On exam, alert and oriented x3. HEENT: Conjunctivae normal. eyes normal. NECK: No JVD. No thyroid enlargement. No LNs CARDIOVASCULAR: S1-S2 positive RESPIRATION: Breath sounds diminished in the bases. No rhonchi or crackles. No bronchial breathing. ABDOMEN: Soft, nontender . No guarding. no masses palpable. No ascites, No hepatosplenomegaly.Bowel sounds heard. LEGS: No edema. no swelling NERVOUS SYSTEM: Cranial N 2-12 grossly normal. Moves all 4 limbs. No focal deficits. No sensory deficit. No signs of cerebellar dysfucntion. Skin: patient has rash in his left groin which is blistering with dense erythema. Patient is also having cycles. He also has a rash in the face upper arms and upper legs. - Labs CBC & Chem 7: 04/19/19 08:26 04/19/19 08:26 Labs: Abnormal Lab Results - Last 24 Hours (Table) 04/19/19 04/19/19 Range/Units 08:26 08:26 WBC 1.0 L* (3.8-10.6) k/uL RBC 3.26 L (4.30-5.90) m/uL Hgb 9.9 L (13.0-17.5) gm/dL Hct 30.8 L (39.0-53.0) % RDW 17.9 H (11.5-15.5) % Plt Count 25 L (150-450) k/uL Neutrophils # (Manual) 0.50 L (1.3-7.7) k/uL Lymphocytes # (Manual) 0.40 L (1.0-4.8) k/uL Chloride 110 H (98-107) mmol/L Carbon Dioxide 19 L (22-30) mmol/L Calcium 7.0 L (8.4-10.2) mg/dL Total Protein 5.0 L (6.3-8.2) g/dL Albumin 2.4 L (3.5-5.0) g/dL Microbiology - Last 24 Hours (Table) 04/15/19 17:10 Blood Culture - Preliminary Blood No Growth after 72 hours Assessment and Plan Plan: - disseminated zoster - Multiple myeloma on chemo - Leukopenia - Hyperlipidemia - Peripheral neuropathy - Mild CAD Plan 04/18/2019 - Continue antibiotics and antivirals as per ID recommendations - patient was givenGCSF FOR NEUTROPENIA - We'll continue rest of the medical care - Continue isolation protocol - We'll follow the patient 04/19/2019- - Continue antivirals as per ID recommendations. We'll discuss with infectious disease if he needs gram-negative coverage as he is neutropenic - Discussed with hematology oncology. We'll hold off on the patient's dexamethasone tomorrow as he is immunosuppressed - Continue rest of the medical care - Continue isolation protocol - We'll follow the patient
[2019-04-19] MEDS: FILGRASTIM-SNDZ 480 MCG/0.8 ML SYRINGE SQ SCH (17:08)
[2019-04-20] MEDS: ACYCLOVIR SODIUM 800 MG in SODIUM CHLORIDE 0.9% 250 ML IV SCH ×4 (00:06→23:47)
[2019-04-20] MEDS: SODIUM CHLORIDE 0.9% 1,000 ML IV SCH ×2 (00:07→18:49)
[2019-04-20] MEDS: VANCOMYCIN 1,250 MG in SODIUM CHLORIDE 0.9% 250 ML IVPB SCH ×2 (02:23→18:49)
[2019-04-20] MEDS: GABAPENTIN 300 MG CAP PO SCH ×3 (08:06→21:34)
[2019-04-20] MEDS: POTASSIUM CHLORIDE ER 10 MEQ TAB.ER.PRT PO SCH (08:06)
[2019-04-20] MEDS ORDERED: VANCOMYCIN TROUGH DUE 1 EACH MISC MISCELLANE ONE (09:00)
[2019-04-20 09:48] LABS: Anisocytosis Slight; HCT 29.9 % (39.0-53.0); HGB 9.5 gm/dL (13.0-17.5); MCH 29.8 pg (25.0-35.0); MCHC 31.8 g/dL (31.0-37.0); MCV 93.8 fL (80.0-100.0); Mean Platelet Volume 9.2; RBC 3.19 m/uL (4.30-5.90); RDW 17.9 % (11.5-15.5)
[2019-04-20 09:52] LABS: Platelet Count 53 k/uL (150-450)
[2019-04-20 09:57] LABS: African American GFR (CKD) >90 (>60 ml/min/1.73 sqM); Anion Gap 9 mmol/L; Blood Urea Nitrogen 10 mg/dL (9-20); Calcium 7.2 mg/dL (8.4-10.2); Carbon Dioxide 19 mmol/L (22-30); Chloride 107 mmol/L (98-107); Glucose 107 mg/dL (74-99); Sodium 135 mmol/L (137-145)
[2019-04-20 10:02] LABS: Potassium 3.6 mmol/L (3.5-5.1)
--- NOTE | 2019-04-20 13:40 | P.PN ---
Subjective very pleasant 64 gentleman with history significant for multiple myeloma. Patient is on chemotherapy for multiple myeloma. He finished his second chemotherapy session. 2 days after he developed painful rash in the left groin area and lesions in the face arms. He does comes to the hospital. He was diagnosed with dizziness is zoster. He was started on IV Cipro and IV vancomycin. 04/18/2019 Patient is in isolation. Patient says that the lesions are healing but still painful . He does not otherwise complain of any new lesions, no fever no chills, No abdominal pain, nausea and vomiting, or diarrhea constipation,. He does not complain of any visual changes or confusion. No chest pain or racing heart 04/19/2019 Patient says that he still has pain in the left groin due to lesions He has fevers on and off still No chest pain or racing heart no visual changes no confusion 04/20/2019 Patient was sitting in the chair. Says that he's feeling better No fever since yesterday No chest pain racing heart Still has some pain in the left groin due to lesions Objective - Vital Signs Vital signs: Vital Signs Temp 99.3 F 04/20/19 05:00 Pulse 67 04/20/19 05:00 Resp 16 04/20/19 05:00 BP 95/69 04/20/19 05:00 Pulse Ox 94 L 04/20/19 05:00 Intake & Output 04/19/19 04/20/19 04/20/19 18:59 06:59 18:59 Intake Total 1170 1020 Output Total 200 Balance 1170 820 Intake: Intake, IV Titration 250 300 Amount Sodium Chloride 0.9% 1, 300 000 ml @ 75 mls/hr IV . [id number] [facility] Rx#:[id number] Vancomycin 1,250 mg In 250 Sodium Chloride 0.9% 250 ml @ 125 mls/hr IVPB Q8H [facility] Rx#:[id number] Oral 920 720 Output: Urine 200 Other: Voiding Method Toilet Toilet Urinal Urinal # Voids 5 1 - Exam On exam, alert and oriented x3. HEENT: Conjunctivae normal. eyes normal. NECK: No JVD. No thyroid enlargement. No LNs CARDIOVASCULAR: S1-S2 positive RESPIRATION: Breath sounds diminished in the bases. No rhonchi or crackles. No bronchial breathing. ABDOMEN: Soft, nontender . No guarding. no masses palpable. No ascites, No hepatosplenomegaly.Bowel sounds heard. LEGS: No edema. no swelling NERVOUS SYSTEM: Cranial N 2-12 grossly normal. Moves all 4 limbs. No focal deficits. No sensory deficit. No signs of cerebellar dysfucntion. Skin: patient has rash in his left groin which is blistering with dense erythema. Patient is also having cycles. He also has a rash in the face upper arms and upper legs. - Labs CBC & Chem 7: 04/20/19 09:29 04/20/19 09:29 Labs: Abnormal Lab Results - Last 24 Hours (Table) 04/20/19 04/20/19 Range/Units 09:29 09:29 WBC 1.0 L* (3.8-10.6) k/uL RBC 3.19 L (4.30-5.90) m/uL Hgb 9.5 L (13.0-17.5) gm/dL Hct 29.9 L (39.0-53.0) % RDW 17.9 H (11.5-15.5) % Plt Count 53 L D (150-450) k/uL Sodium 135 L (137-145) mmol/L Carbon Dioxide 19 L (22-30) mmol/L Glucose 107 H (74-99) mg/dL Calcium 7.2 L (8.4-10.2) mg/dL Microbiology - Last 24 Hours (Table) 04/15/19 17:10 Blood Culture - Preliminary Blood No Growth after 96 hours Assessment and Plan Plan: - disseminated zoster - Multiple myeloma on chemo - Leukopenia - Hyperlipidemia - Peripheral neuropathy - Mild CAD Plan 04/18/2019 - Continue antibiotics and antivirals as per ID recommendations - patient was givenGCSF FOR NEUTROPENIA - We'll continue rest of the medical care - Continue isolation protocol - We'll follow the patient 04/19/2019- - Continue antivirals as per ID recommendations. We'll discuss with infectious disease if he needs gram-negative coverage as he is neutropenic - Discussed with hematology oncology. We'll hold off on the patient's dexamethasone tomorrow as he is immunosuppressed - Continue rest of the medical care - Continue isolation protocol - We'll follow the patient 04/20/2019 - Discussed with Dr. Miranda regarding antibiotics. He was to continue the current antibiotics vancomycin and antiviral acyclovir for now and see how he does. - Spoke with hematology oncology. The plan is to hold off on the dexamethasone for now - Continue isolation protocol - Continue current antibiotics as per ID recommendations - We'll follow up with the patient
[2019-04-20] MEDS: FILGRASTIM-SNDZ 480 MCG/0.8 ML SYRINGE SQ SCH (16:23)
[2019-04-20] MEDS: SILVER sulfADIAZINE Cream 400 GM 1 APPLIC APPLIC TOPICAL SCH (21:35)
[2019-04-21] MEDS: VANCOMYCIN 1,250 MG in SODIUM CHLORIDE 0.9% 250 ML IVPB SCH ×2 (05:53→18:35)
[2019-04-21] MEDS: POTASSIUM CHLORIDE ER 10 MEQ TAB.ER.PRT PO SCH (09:49)
[2019-04-21] MEDS: GABAPENTIN 300 MG CAP PO SCH ×3 (09:50→21:40)
[2019-04-21] MEDS: ACYCLOVIR SODIUM 800 MG in SODIUM CHLORIDE 0.9% 250 ML IV SCH ×2 (09:50→17:18)
[2019-04-21] MEDS: SODIUM CHLORIDE 0.9% 1,000 ML IV SCH (09:57)
[2019-04-21] MEDS: SILVER sulfADIAZINE Cream 400 GM 1 APPLIC APPLIC TOPICAL SCH ×2 (10:15→21:39)
[2019-04-21 10:17] LABS: Anisocytosis Slight; HCT 25.5 % (39.0-53.0); HGB 8.2 gm/dL (13.0-17.5); MCH 29.9 pg (25.0-35.0); MCHC 32.2 g/dL (31.0-37.0); MCV 92.9 fL (80.0-100.0); Mean Platelet Volume 9.5; RBC 2.75 m/uL (4.30-5.90); RDW 17.9 % (11.5-15.5)
[2019-04-21 10:32] LABS: WBC 0.8 k/uL (3.8-10.6)
[2019-04-21 10:44] LABS: African American GFR (CKD) >90 (>60 ml/min/1.73 sqM); Anion Gap 5 mmol/L; Blood Urea Nitrogen 9 mg/dL (9-20); Calcium 7.3 mg/dL (8.4-10.2); Carbon Dioxide 23 mmol/L (22-30); Chloride 108 mmol/L (98-107); Glucose 90 mg/dL (74-99); Potassium 3.5 mmol/L (3.5-5.1); Sodium 136 mmol/L (137-145)
[2019-04-21 10:55] LABS: Platelet Count 23 k/uL (150-450)
[2019-04-21] MEDS ORDERED: SENNOSIDES-DOCUSATE SODIUM 1 EACH TAB PO PRN (11:11)
--- NOTE | 2019-04-21 11:28 | PN ---
PROGRESS NOTE DATE OF SERVICE: April 21, 2019. CHIEF COMPLAINT: Tired. Hernan is seen today as followup. He feels a little tired but overall doing well. No nausea or vomiting. He has some pain in his left groin from his shingle, but no fever or chills and overall is doing better. MEDICATION: Reviewed in his electronic medical record. PHYSICAL EXAMINATION: Alert and oriented x3. He does not appear to be in acute distress. Vital signs: Temperature 98, afebrile, pulse 61 regular, respirations 16, blood pressure 104/59. HEENT: Normocephalic, atraumatic. NECK: Supple. CHEST equal expansion bilaterally. LUNGS: Clear to auscultation. HEART is regular rate and rhythm. ABDOMEN: Soft. No tenderness. EXTREMITIES: No edema. SKIN: There are multiple areas in the left groin extending toward his back consistent with shingles, but the lesions have dried up. LABORATORY DATA: WBC are 0.8, hemoglobin 8.2, hematocrit 25.5. Sodium 136, potassium 3.5, chloride 23, BUN is 9, creatinine 0.8. IMPRESSION: 1. Disseminated zoster. The patient clinically is doing much better. 2. Multiple relapse multiple myeloma. He was recently started on treatment with Darzalex and Pomalyst and Decadron. 3. Pancytopenia likely related to Pomalyst. RECOMMENDATIONS: 1. Overall, the patient's shingles, disseminated Zosyn have improved. 2. We will await ID recommendation in regard to antiviral therapy. 3. Monitor blood count for now. 4. Systemic treatment from relapse multiple myeloma is on hold now until the patient and his blood counts improve. MMODL / IJN: [id number] /
--- NOTE | 2019-04-21 15:17 | P.PN ---
Subjective very pleasant 64 gentleman with history significant for multiple myeloma. Patient is on chemotherapy for multiple myeloma. He finished his second chemotherapy session. 2 days after he developed painful rash in the left groin area and lesions in the face arms. He does comes to the hospital. He was diagnosed with dizziness is zoster. He was started on IV Cipro and IV vancomycin. 04/18/2019 Patient is in isolation. Patient says that the lesions are healing but still painful . He does not otherwise complain of any new lesions, no fever no chills, No abdominal pain, nausea and vomiting, or diarrhea constipation,. He does not complain of any visual changes or confusion. No chest pain or racing heart 04/19/2019 Patient says that he still has pain in the left groin due to lesions He has fevers on and off still No chest pain or racing heart no visual changes no confusion 04/20/2019 Patient was sitting in the chair. Says that he's feeling better No fever since yesterday No chest pain racing heart Still has some pain in the left groin due to lesions 04/21/2019 Patient still complaining of pain in the left groin due to the lesions No fevers still No chest pain racing heart No cough no shortness of breath. No blurry vision Objective - Vital Signs Vital signs: Vital Signs Temp 98 F 04/21/19 05:00 Pulse 61 04/21/19 05:00 Resp 16 04/21/19 05:00 BP 104/59 04/21/19 05:00 Pulse Ox 97 04/21/19 05:00 Intake & Output 04/20/19 04/21/19 04/21/19 18:59 06:59 18:59 Intake Total 1490 1840 Balance 1490 1840 Intake: Intake, IV Titration 890 1300 Amount Acyclovir Sodium 800 mg 250 In Sodium Chloride 0.9% 250 ml @ 266 mls/hr IV Q8HR [facility] Rx#:[id number] Sodium Chloride 0.9% 1, 640 1050 000 ml @ 75 mls/hr IV . [id number] [facility] Rx#:[id number] Vancomycin 1,250 mg In 250 Sodium Chloride 0.9% 250 ml @ 125 mls/hr IVPB Q12HR@0600,1800 [facility] Rx#: [id number] Oral 600 540 Other: Voiding Method Toilet Toilet Toilet Urinal Urinal Urinal # Voids 2 1 - Exam On exam, alert and oriented x3. HEENT: Conjunctivae normal. eyes normal. NECK: No JVD. No thyroid enlargement. No LNs CARDIOVASCULAR: S1-S2 positive RESPIRATION: Breath sounds diminished in the bases. No rhonchi or crackles. No bronchial breathing. ABDOMEN: Soft, nontender . No guarding. no masses palpable. No ascites, No hepatosplenomegaly.Bowel sounds heard. LEGS: No edema. no swelling NERVOUS SYSTEM: Cranial N 2-12 grossly normal. Moves all 4 limbs. No focal deficits. No sensory deficit. No signs of cerebellar dysfucntion. Skin: patient has rash in his left groin which is blistering with dense erythema. Patient is also having cycles. He also has a rash in the face upper arms and upper legs. - Labs CBC & Chem 7: 04/21/19 10:05 04/21/19 10:05 Labs: Abnormal Lab Results - Last 24 Hours (Table) 04/21/19 04/21/19 Range/Units 10:05 10:05 WBC 0.8 L* (3.8-10.6) k/uL RBC 2.75 L (4.30-5.90) m/uL Hgb 8.2 L (13.0-17.5) gm/dL Hct 25.5 L (39.0-53.0) % RDW 17.9 H (11.5-15.5) % Plt Count 23 L D (150-450) k/uL Sodium 136 L (137-145) mmol/L Chloride 108 H (98-107) mmol/L Calcium 7.3 L (8.4-10.2) mg/dL Microbiology - Last 24 Hours (Table) 04/15/19 17:10 Blood Culture - Preliminary Blood No Growth after 120 hours Assessment and Plan Plan: - disseminated zoster - Multiple myeloma on chemo - Leukopenia - Hyperlipidemia - Peripheral neuropathy - Mild CAD Plan 04/18/2019 - Continue antibiotics and antivirals as per ID recommendations - patient was givenGCSF FOR NEUTROPENIA - We'll continue rest of the medical care - Continue isolation protocol - We'll follow the patient 04/19/2019- - Continue antivirals as per ID recommendations. We'll discuss with infectious disease if he needs gram-negative coverage as he is neutropenic - Discussed with hematology oncology. We'll hold off on the patient's dexamethasone tomorrow as he is immunosuppressed - Continue rest of the medical care - Continue isolation protocol - We'll follow the patient 04/20/2019 - Discussed with Dr. Miranda regarding antibiotics. He was to continue the current antibiotics vancomycin and antiviral acyclovir for now and see how he does. - Spoke with hematology oncology. The plan is to hold off on the dexamethasone for now - Continue isolation protocol - Continue current antibiotics as per ID recommendations - We'll follow up with the patient 04/21/2019 - Continue IV antibiotics as per ID recommendations - Patient's WBC is still low. - Continue isolation protocol - Possible discharge in the next 24-48 hours depending upon how he does
[2019-04-21] MEDS: FILGRASTIM-SNDZ 480 MCG/0.8 ML SYRINGE SQ SCH (17:17)
--- NOTE | 2019-04-22 | P.PN ---
Subjective Progress Note Date: 04/21/19 Principal diagnosis: Left L1 dermatome shingles and question of possible disseminated shingles Patient is a 64-year-old male with a past medical history significant for multiple myeloma status post bone marrow transplant and chemo patient has been admitted to the hospital with a painful rash mostly to his left groin area and has been diagnosed with shingles, apparently the patient also has some rash to the periorbital area with concern for possible disseminated shingles in this patient also have fever with concern for possible cellulitis patient currently be treated with IV acyclovir and IV vancomycin. I was asked to see the patient today for recommendations regarding discharge antibiotics/antibiotics On today's evaluation that is 04/21/2019, patient has been afebrile for the last few days, patient currently with no rash or the face or the periorbital area the rash to the left groin he is currently crusting up did have some burning pain to the area but no worsening no surrounding redness no chest pain shortness of breath or cough no abdominal pain no diarrhea ROS: Positive points has been mentioned in HPI. Rest of the systems negative Past medical and surgical history reviewed Medication reviewed Objective - Vital Signs Vital signs: Vital Signs Temp 98.2 F 04/21/19 12:35 Pulse 86 04/21/19 12:35 Resp 14 04/21/19 12:35 BP 112/72 04/21/19 12:35 Pulse Ox 96 04/21/19 12:35 Intake & Output 04/21/19 04/21/19 04/22/19 06:59 18:59 06:59 Intake Total 1840 875 250 Output Total 600 Balance 1840 275 250 Intake: Intake, IV Titration 1300 875 250 Amount Acyclovir Sodium 800 mg 250 250 In Sodium Chloride 0.9% 250 ml @ 266 mls/hr IV Q8HR [facility] Rx#:[id number] Sodium Chloride 0.9% 1, 1050 375 000 ml @ 75 mls/hr IV . [id number] [facility] Rx#:[id number] Vancomycin 1,250 mg In 250 250 Sodium Chloride 0.9% 250 ml @ 125 mls/hr IVPB Q12HR@0600,1800 [facility] Rx#: [id number] Oral 540 Output: Urine 600 Other: Voiding Method Toilet Toilet Urinal Urinal # Voids 1 - Exam GENERAL DESCRIPTION:[ Patient is awake and alert in no distress] HEENT: [Oral mucosa is dry and no pharyngeal erythema] EYES : [No pallor or scleral icterus] RESPIRATORY SYSTEM: [Unlabored breathing clear to auscultation] CARDIA VASCULAR SYSTEM: [S1-S2 regular rate and rhythm no murmur] GI: [Abdominal soft there's no tenderness no organomegaly] EXTREMITIES: [No edema feet] SKIN: Rash to the left groin area crusting out no rash on the face or the part of the body - Labs CBC & Chem 7: 04/21/19 10:05 04/21/19 10:05 Labs: Abnormal Lab Results - Last 24 Hours (Table) 04/21/19 04/21/19 Range/Units 10:05 10:05 WBC 0.8 L* (3.8-10.6) k/uL RBC 2.75 L (4.30-5.90) m/uL Hgb 8.2 L (13.0-17.5) gm/dL Hct 25.5 L (39.0-53.0) % RDW 17.9 H (11.5-15.5) % Plt Count 23 L D (150-450) k/uL Sodium 136 L (137-145) mmol/L Chloride 108 H (98-107) mmol/L Calcium 7.3 L (8.4-10.2) mg/dL Microbiology - Last 24 Hours (Table) 04/15/19 17:10 Blood Culture - Final Blood No Growth after 144 hours Assessment and Plan Assessment: 1-patient and the hospital predominantly at rash to the left groin following the distribution off the L1 dermatome also of some rash to the periorbital facial area which is currently completely resolved and concern for possible disseminated shingles, and concern for possible secondary cellulitis patient currently fever has resolved with no evidence of any redness or induration diarrhea and the patient rash to the L1 dermatome on the left side is crusting out and no evidence of any new rash Plan: 1-patient is currently on IV acyclovir and vancomycin to continue while inpat ient 2-recommend to switch him over to Valtrex 1 g 3 times a day for [id number] days to finish course of therapy on discharge 3-no need for systemic antibiotic therapy on discharge the patient currently with no evidence of any cellulitis and cultures has been negative Time with Patient: Greater than 30
[2019-04-22] MEDS: ACYCLOVIR SODIUM 800 MG in SODIUM CHLORIDE 0.9% 250 ML IV SCH ×3 (00:08→16:42)
[2019-04-22 01:57] VITALS: RESP 18
[2019-04-22 05:39] VITALS: BP 106/63; TEMP 97.2
[2019-04-22] MEDS: SODIUM CHLORIDE 0.9% 1,000 ML IV SCH ×2 (05:49→08:00)
[2019-04-22] MEDS: VANCOMYCIN 1,250 MG in SODIUM CHLORIDE 0.9% 250 ML IVPB SCH (05:49)
[2019-04-22] MEDS: GABAPENTIN 300 MG CAP PO SCH ×2 (08:00→17:22)
[2019-04-22] MEDS: POTASSIUM CHLORIDE ER 10 MEQ TAB.ER.PRT PO SCH (08:00)
[2019-04-22 10:40] VITALS: PULSE 70
[2019-04-22 10:56] LABS: Anisocytosis Slight; HCT 28.3 % (39.0-53.0); HGB 8.9 gm/dL (13.0-17.5); MCH 29.3 pg (25.0-35.0); MCHC 31.5 g/dL (31.0-37.0); MCV 93.1 fL (80.0-100.0); RBC 3.04 m/uL (4.30-5.90); RDW 18.6 % (11.5-15.5)
[2019-04-22] MEDS: SILVER sulfADIAZINE Cream 400 GM 1 APPLIC APPLIC TOPICAL SCH (11:00)
[2019-04-22 11:03] LABS: Platelet Count 28 k/uL (150-450)
[2019-04-22 11:05] LABS: WBC 1.1 k/uL (3.8-10.6)
--- NOTE | 2019-04-22 13:33 | P.PN ---
Subjective Feels Ok Pain well controlled with MS-IR No fever or chills Maintaining good oral intake Objective - Vital Signs Vital signs: Vital Signs Temp 97.2 F L 04/22/19 05:00 Pulse 70 04/22/19 08:00 Resp 18 04/22/19 08:00 BP 106/63 04/22/19 05:00 Pulse Ox 97 04/22/19 05:00 Intake & Output 04/21/19 04/22/19 04/22/19 18:59 06:59 18:59 Intake Total 875 1040 Output Total 600 Balance 275 1040 Intake: Intake, IV Titration 875 500 Amount Acyclovir Sodium 800 mg 250 250 In Sodium Chloride 0.9% 250 ml @ 266 mls/hr IV Q8HR [facility] Rx#:[id number] Sodium Chloride 0.9% 1, 375 000 ml @ 75 mls/hr IV . [id number] [facility] Rx#:[id number] Vancomycin 1,250 mg In 250 250 Sodium Chloride 0.9% 250 ml @ 125 mls/hr IVPB Q12HR@0600,1800 [facility] Rx#: [id number] Oral 540 Output: Urine 600 Other: Voiding Method Toilet Toilet Toilet Urinal Urinal Urinal # Voids 1 - EENT Eyes: Present: EOMI, PERRLA - Respiratory Respiratory: bilateral: CTA - Cardiovascular Rhythm: regular Heart sounds: normal: S1, S2 - Gastrointestinal General gastrointestinal: Present: soft - Musculoskeletal Musculoskeletal Comment(s): All skin lesions healing well, no new lesions seen Musculoskeletal: Present: gait normal - Psychiatric Psychiatric: Present: A&O x's 3 - Labs CBC & Chem 7: 04/22/19 09:47 04/21/19 10:05 Labs: Abnormal Lab Results - Last 24 Hours (Table) 04/22/19 Range/Units 09:47 WBC 1.1 L* (3.8-10.6) k/uL RBC 3.04 L (4.30-5.90) m/uL Hgb 8.9 L (13.0-17.5) gm/dL Hct 28.3 L (39.0-53.0) % RDW 18.6 H (11.5-15.5) % Plt Count 28 L (150-450) k/uL Microbiology - Last 24 Hours (Table) 04/15/19 17:10 Blood Culture - Final Blood No Growth after 144 hours Assessment and Plan (1) Pancytopenia due to antineoplastic chemotherapy Current Visit: Yes Status: Acute Code(s): D61.810 - ANTINEOPLASTIC CHEMOTHERAPY INDUCED PANCYTOPENIA; T45.1X5A - ADVERSE EFFECT OF ANTINEOPLASTIC AND IMMUNOSUP DRUGS, INIT SNOMED Code(s): 326805841773756 (2) Disseminated herpes zoster Current Visit: Yes Status: Acute Code(s): B02.7 - DISSEMINATED ZOSTER SNOMED Code(s): 71450956 (3) Fever Current Visit: Yes Status: Acute Code(s): R50.9 - FEVER, UNSPECIFIED SNOMED Code(s): 860833806 (4) Multiple myeloma Current Visit: Yes Status: Acute Code(s): C90.00 - MULTIPLE MYELOMA NOT HAVING ACHIEVED REMISSION SNOMED Code(s): 403012313 (5) Neutropenic fever Current Visit: Yes Status: Acute Code(s): D70.9 - NEUTROPENIA, UNSPECIFIED; R50.81 - FEVER PRESENTING WITH CONDITIONS CLASSIFIED ELSEWHERE SNOMED Code(s): 803496508 Plan: 1- Reviewed CBC results with patient & > stable Pancytopenia 2- Discussed stable zoster lesions 3- Ok to discharge home from Hematology/Oncology stand point 4- Anti-viral therapy course per ID 5- Re-evaluate in office in 1 weeks Answered all questions/concerns D/W nursing staff and Internal medicine attending
--- NOTE | 2019-04-22 15:03 | P.DS ---
Providers Date of admission: 04/15/19 18:38 Expected date of discharge: 04/22/19 Attending physician: Devon Ferro Consults: 04/15/19 18:39 Consult Physician Routine Consulting Provider: Abner Hull Consult Reason/Comments: Zoster ophtho Do you want consulting provider notified?: Yes 04/15/19 18:43 Consult Physician Routine Consulting Provider: Jean Carlos Meehan Consult Reason/Comments: Disseminated zoster Do you want consulting provider notified?: Yes 04/16/19 12:44 Consult Physician Routine Consulting Provider: Luis A Mcgowan Consult Reason/Comments: multiple myeloma decreased immunity Do you want consulting provider notified?: Yes Primary care physician: Denton Pierson Plan - Discharge Summary New Discharge Prescriptions: New Acetaminophen Tab [Tylenol] 650 mg PO Q6HR PRN #30 tab PRN Reason: Mild Pain Or Fever > 100.5 Continue oxyCODONE HCL [OxyIR] 5 mg PO Q6H Potassium Bicarbonate/Cit AC [Klor-Con 25 (Effer. Tab)] 25 meq PO DAILY Famotidine [Pepcid] 20 mg PO BID PRN PRN Reason: Heartburn valACYclovir [Valtrex] 1,000 mg PO TID Pomalyst 4mg Cap 4 mg PO HS Ondansetron HCl [Zofran] 4 mg PO Q4H PRN PRN Reason: Nausea Nitroglycerin 0.3mg Sl Tab 0.3 mg SL Q5M PRN PRN Reason: Chest Pain Gabapentin [Neurontin] 300 mg PO TID Dexamethasone 20 mg PO WE Discharge Medication List oxyCODONE HCL [OxyIR] 5 mg PO Q6H 02/05/17 [History] Potassium Bicarbonate/Cit AC [Klor-Con 25 (Effer. Tab)] 25 meq PO DAILY 03/08/18 [History] Dexamethasone 20 mg PO WE 04/15/19 [History] Famotidine [Pepcid] 20 mg PO BID PRN 04/15/19 [History] Gabapentin [Neurontin] 300 mg PO TID 04/15/19 [History] Nitroglycerin 0.3mg Sl Tab 0.3 mg SL Q5M PRN 04/15/19 [History] Ondansetron HCl [Zofran] 4 mg PO Q4H PRN 04/15/19 [History] Pomalyst 4mg Cap 4 mg PO HS 04/15/19 [History] valACYclovir [Valtrex] 1,000 mg PO TID 04/15/19 [History] Acetaminophen Tab [Tylenol] 650 mg PO Q6HR PRN #30 tab 04/22/19 [Rx] Follow up Appointment(s)/Referral(s): Elkin Pierson MD [Primary Care Provider] - 1-2 days
--- NOTE | 2019-04-22 15:07 | P.DS ---
Providers Date of admission: 04/15/19 18:38 Expected date of discharge: 04/22/19 Attending physician: Devon Ferro Consults: 04/15/19 18:39 Consult Physician Routine Consulting Provider: Abner Hull Consult Reason/Comments: Zoster ophtho Do you want consulting provider notified?: Yes 04/15/19 18:43 Consult Physician Routine Consulting Provider: Jean Carlos Meehan Consult Reason/Comments: Disseminated zoster Do you want consulting provider notified?: Yes 04/16/19 12:44 Consult Physician Routine Consulting Provider: Luis A Mcgowan Consult Reason/Comments: multiple myeloma decreased immunity Do you want consulting provider notified?: Yes Primary care physician: [facility] Course: very pleasant 64 gentleman with history significant for multiple myeloma. Patient is on chemotherapy for multiple myeloma. He finished his second chemotherapy session. 2 days after he developed painful rash in the left groin area and lesions in the face arms. He does comes to the hospital. He was diagnosed with dizziness is zoster. He was started on IV Cipro and IV vancomycin. Patient's lesions started to crust and his pain was also controlled better. His WBC counts were low so he was given G-CSF to stimulate WBCs. He was followed by infectious disease and hematology oncology group. Patient was initially having fevers but later on his fever subsided. He was continued on vancomycin and acyclovir IV. On 04/22/2019 Patient still was not complaining of any fever or chills, he was complaining of better pain control in his left groin on narcotics, gabapentin and Tylenol. On exam, alert and oriented x3. HEENT: Conjunctivae normal. eyes normal. NECK: No JVD. No thyroid enlargement. No LNs CARDIOVASCULAR: S1-S2 positive RESPIRATION: Breath sounds diminished in the bases. No rhonchi or crackles. No bronchial breathing. ABDOMEN: Soft, nontender . No guarding. no masses palpable. No ascites, No hepatosplenomegaly.Bowel sounds heard. LEGS: No edema. no swelling NERVOUS SYSTEM: Cranial N 2-12 grossly normal. Moves all 4 limbs. No focal deficits. No sensory deficit. No signs of cerebellar dysfucntion. Skin: patient has rash in his left groin which is blistering with dense erythema. Patient is also having cycles. He also has a rash in the face upper arms and upper legs. Patient was cleared by infectious disease to be discharged and continue the Valtrex for the duration of 45 days patient was also cleared by hematology oncology to be discharged and follow up in the clinic in 1 week. Patient Condition at Discharge: Stable Plan - Discharge Summary New Discharge Prescriptions: New Acetaminophen Tab [Tylenol] 650 mg PO Q6HR PRN #30 tab PRN Reason: Mild Pain Or Fever > 100.5 Continue oxyCODONE HCL [OxyIR] 5 mg PO Q6H Potassium Bicarbonate/Cit AC [Klor-Con 25 (Effer. Tab)] 25 meq PO DAILY Famotidine [Pepcid] 20 mg PO BID PRN PRN Reason: Heartburn valACYclovir [Valtrex] 1,000 mg PO TID Pomalyst 4mg Cap 4 mg PO HS Ondansetron HCl [Zofran] 4 mg PO Q4H PRN PRN Reason: Nausea Nitroglycerin 0.3mg Sl Tab 0.3 mg SL Q5M PRN PRN Reason: Chest Pain Gabapentin [Neurontin] 300 mg PO TID Dexamethasone 20 mg PO WE Discharge Medication List oxyCODONE HCL [OxyIR] 5 mg PO Q6H 02/05/17 [History] Potassium Bicarbonate/Cit AC [Klor-Con 25 (Effer. Tab)] 25 meq PO DAILY 03/08/18 [History] Dexamethasone 20 mg PO WE 04/15/19 [History] Famotidine [Pepcid] 20 mg PO BID PRN 04/15/19 [History] Gabapentin [Neurontin] 300 mg PO TID 04/15/19 [History] Nitroglycerin 0.3mg Sl Tab 0.3 mg SL Q5M PRN 04/15/19 [History] Ondansetron HCl [Zofran] 4 mg PO Q4H PRN 04/15/19 [History] Pomalyst 4mg Cap 4 mg PO HS 04/15/19 [History] valACYclovir [Valtrex] 1,000 mg PO TID 04/15/19 [History] Acetaminophen Tab [Tylenol] 650 mg PO Q6HR PRN #30 tab 04/22/19 [Rx] Follow up Appointment(s)/Referral(s): Elkin Pierson MD [Primary Care Provider] - 1-2 days
[2019-04-22] MEDS: FILGRASTIM-SNDZ 480 MCG/0.8 ML SYRINGE SQ SCH (17:22)
[2019-04-23] MEDS ORDERED: VANCOMYCIN TROUGH DUE 1 EACH MISC MISCELLANE ONE (05:00)
== END 2019-04-22 18:25 | disposition home or self-care (01) | DRG 865 ==
LOC: EC 14:53 → 3NMEDONC 18:38
PROVIDERS: ADMIT Hospitalist; ATTEND Hospitalist
DX: B02.7 Disseminated zoster (principal); D61.810 Antineoplastic chemotherapy induced pancytopenia; C90.00 Multiple myeloma not having achieved remission; L03.90 Cellulitis, unspecified; M80.00XA Age-related osteoporosis with current pathological fracture, unspecified site, initial encounter for fracture; Z94.81 Bone marrow transplant status; Z94.84 Stem cells transplant status; E78.5 Hyperlipidemia, unspecified; G62.9 Polyneuropathy, unspecified; H26.9 Unspecified cataract; N28.9 Disorder of kidney and ureter, unspecified; R50.81 Fever presenting with conditions classified elsewhere; T45.1X5A Adverse effect of antineoplastic and immunosuppressive drugs, initial encounter; Z79.899 Other long term (current) drug therapy; Z87.310 Personal history of (healed) osteoporosis fracture; Z87.891 Personal history of nicotine dependence; Z88.2 Allergy status to sulfonamides; G89.29 Other chronic pain; M54.9 Dorsalgia, unspecified
CPT/HCPCS: 36415; 71046; 80048; 80053; 80202; 81001; 82565; 83605; 84100; 85025; 85027; 85610; 85730; 87040; 96365; 96366; 96367; 99284

== ENCOUNTER 2019-08-24 17:17 | Inpatient (IN) | payer MEDICARE, BC ==
[2019-08-24] MEDS ORDERED: ACETAMINOPHEN TAB 500 MG TAB PO STA (17:58)
[2019-08-24] MEDS ORDERED: SODIUM CHLORIDE 0.9% 500 ML 500 ML IV STA (17:58)
--- NOTE | 2019-08-24 18:02 | ED ---
General Adult HPI - General Chief complaint: Fever Stated complaint: Fever Time Seen by Provider: 08/24/19 17:40 Source: patient, family, RN notes reviewed Mode of arrival: wheelchair Limitations: no limitations - History of Present Illness Initial comments: Patient is a pleasant 64-year-old male presenting to the emergency department with concerns for fever. Onset of symptoms was this morning. Patient does have history of multiple myeloma, last chemotherapy was just over 1 week ago. Patient saw his doctor today and urine was concerning for infection in the office and patient was advised come the emergency department. Patient states he has had some symptoms since yesterday. Patient feels fatigued and generally achy. Patient took Tylenol, 325 mg at 10:30 AM. Patient states he does have some discomfort right lateral lower ribs. No significant cough. Patient denies abdominal pain. - Related Data Home Medications Medication Instructions Recorded Confirmed oxyCODONE HCL [OxyIR] 5 mg PO QID PRN 02/05/17 08/24/19 Dexamethasone 20 mg PO WE 04/15/19 08/24/19 Famotidine [Pepcid] 20 mg PO DAILY PRN 04/15/19 08/24/19 Gabapentin [Neurontin] 300 mg PO TID@0900,1830,2330 04/15/19 08/24/19 Nitroglycerin 0.3mg Sl Tab 0.3 mg SL Q5M PRN 04/15/19 08/24/19 Ondansetron HCl [Zofran] 4 mg PO Q4H PRN 04/15/19 08/24/19 Acyclovir 400 mg PO BID 08/24/19 08/24/19 Aspirin EC [Ecotrin] 325 mg PO DAILY 08/24/19 08/24/19 Calcium Carbonate [Calcium] 600 mg PO BID 08/24/19 08/24/19 Pomalyst 3mg 3 mg PO HS 08/24/19 08/24/19 Potassium Bicarbonate/Cit AC 25 meq PO AC-LUNCH 08/24/19 08/24/19 [Potassium 25 Meq Tablet Eff] Previous Rx's Medication Instructions Recorded Acetaminophen Tab [Tylenol] 650 mg PO Q6HR PRN #30 tab 04/22/19 Allergies Allergy/AdvReac Type Severity Reaction Status Date / Time sulfamethoxazole Allergy Rash/Hives Verified 08/24/19 18:32 [From Bactrim] trimethoprim [From Bactrim] Allergy Rash/Hives Verified 08/24/19 18:32 Review of Systems ROS Statement: Those systems with pertinent positive or pertinent negative responses have been documented in the HPI. ROS Other: All systems not noted in ROS Statement are negative. Constitutional: Reports: fever Eyes: Denies: eye pain ENT: Denies: ear pain Respiratory: Denies: cough Cardiovascular: Reports: as per HPI Endocrine: Reports: fatigue Gastrointestinal: Denies: abdominal pain Genitourinary: Reports: as per HPI Musculoskeletal: Denies: back pain Skin: Denies: rash Neurological: Denies: weakness Past Medical History Past Medical History: Cancer, Hyperlipidemia Additional Past Medical History / Comment(s): Hx. vertebral stress fx. shingles 2013, multiple myeloma-dx. 2015 finished chem jul 2016, stem cell transplant 09/03, wound rt heel- healed, neuropathy, chronic back, knee and lt hip pain,. Currently on oral chemo- 3 weeks on, 2 off. History of Any Multi-Drug Resistant Organisms: None Reported Past Surgical History: Orthopedic Surgery Additional Past Surgical History / Comment(s): excision of uvular lesion(benign) 2009, colonoscopy, dave knee arthroscopy, rt rotator cuff sx, moles removed from back(benign)bone marrow aspiration/bx,stem cell transplant 2015, Past Anesthesia/Blood Transfusion Reactions: No Reported Reaction Past Psychological History: No Psychological Hx Reported Smoking Status: Former smoker Past Alcohol Use History: None Reported Past Drug Use History: None Reported - Past Family History Father Family Medical History: Renal Disease Additional Family Medical History / Comment(s): aaa, Mother Family Medical History: No Reported History Additional Family Medical History / Comment(s): mom is healthy General Exam Limitations: no limitations General appearance: alert, in no apparent distress Head exam: Present: normocephalic Eye exam: Present: normal appearance, PERRL ENT exam: Present: normal oropharynx Neck exam: Present: normal inspection Respiratory exam: Present: chest wall tenderness (Mild tenderness right lateral lower ribs.) Cardiovascular Exam: Present: regular rate, normal rhythm GI/Abdominal exam: Present: soft. Absent: distended, tenderness, guarding Extremities exam: Present: normal inspection. Absent: pedal edema, calf tenderness Neurological exam: Present: alert Psychiatric exam: Present: normal affect, normal mood Skin exam: Present: normal color Course Vital Signs 08/24/19 17:28 Temperature 102.6 F H Pulse Rate 93 Respiratory 22 Rate Blood Pressure 99/61 O2 Sat by Pulse 97 Oximetry Medical Decision Making - Medical Decision Making Patient reevaluated and updated. Case was discussed with Dr. carter Mcgowan. - Lab Data Result diagrams: 08/24/19 18:35 08/24/19 18:35 Lab Results 08/24/19 08/24/19 08/24/19 Range/Units 18:35 18:35 18:35 WBC 2.8 L (3.8-10.6) k/uL RBC 3.55 L (4.30-5.90) m/uL Hgb 11.4 L (13.0-17.5) gm/dL Hct 34.6 L (39.0-53.0) % MCV 97.7 (80.0-100.0) fL MCH 32.1 (25.0-35.0) pg MCHC 32.8 (31.0-37.0) g/dL RDW 16.5 H (11.5-15.5) % Plt Count 170 (150-450) k/uL Neutrophils % (Manual) 49 % Band Neutrophils % 1 % Lymphocytes % (Manual) 25 % Monocytes % (Manual) 17 % Eosinophils % (Manual) 8 % Neutrophils # (Manual) 1.40 (1.3-7.7) k/uL Lymphocytes # (Manual) 0.70 L (1.0-4.8) k/uL Monocytes # (Manual) 0.48 (0-1.0) k/uL Eosinophils # (Manual) 0.22 (0-0.7) k/uL Nucleated RBCs 0 (0-0) /100 WBC Manual Slide Review Performed Anisocytosis Slight Macrocytosis Slight PT (9.0-12.0) sec INR (<1.2) APTT (22.0-30.0) sec Sodium 132 L (137-145) mmol/L Potassium 3.7 (3.5-5.1) mmol/L Chloride 98 (98-107) mmol/L Carbon Dioxide 27 (22-30) mmol/L Anion Gap 7 mmol/L BUN 20 (9-20) mg/dL Creatinine 0.97 (0.66-1.25) mg/dL Est GFR (CKD-EPI)AfAm >90 (>60 ml/min/1.73 sqM) Est GFR (CKD-EPI)NonAf 82 (>60 ml/min/1.73 sqM) Glucose 148 H (74-99) mg/dL Plasma Lactic Acid Jeromy 2.6 H* (0.7-2.0) mmol/L Calcium 8.5 (8.4-10.2) mg/dL Total Bilirubin 0.6 (0.2-1.3) mg/dL AST 21 (17-59) U/L ALT 25 (21-72) U/L Alkaline Phosphatase 54 (38-126) U/L Total Protein 5.3 L (6.3-8.2) g/dL Albumin 3.1 L (3.5-5.0) g/dL Urine Color Urine Appearance (Clear) Urine pH (5.0-8.0) Ur Specific [place] (1.001-1.035) Urine Protein (Negative) Urine Glucose (UA) (Negative) Urine Ketones (Negative) Urine Blood (Negative) Urine Nitrite (Negative) Urine Bilirubin (Negative) Urine Urobilinogen (<2.0) mg/dL Ur Leukocyte Esterase (Negative) Urine RBC (0-5) /hpf Urine WBC (0-5) /hpf Urine Bacteria (None) /hpf Urine Mucus (None) /hpf Urine Yeast (Budding) (None) /hpf 08/24/19 08/24/19 Range/Units 18:35 19:05 WBC (3.8-10.6) k/uL RBC (4.30-5.90) m/uL Hgb (13.0-17.5) gm/dL Hct (39.0-53.0) % MCV (80.0-100.0) fL MCH (25.0-35.0) pg MCHC (31.0-37.0) g/dL RDW (11.5-15.5) % Plt Count (150-450) k/uL Neutrophils % (Manual) % Band Neutrophils % % Lymphocytes % (Manual) % Monocytes % (Manual) % Eosinophils % (Manual) % Neutrophils # (Manual) (1.3-7.7) k/uL Lymphocytes # (Manual) (1.0-4.8) k/uL Monocytes # (Manual) (0-1.0) k/uL Eosinophils # (Manual) (0-0.7) k/uL Nucleated RBCs (0-0) /100 WBC Manual Slide Review Anisocytosis Macrocytosis PT 9.6 (9.0-12.0) sec INR 0.9 (<1.2) APTT 25.5 (22.0-30.0) sec Sodium (137-145) mmol/L Potassium (3.5-5.1) mmol/L Chloride (98-107) mmol/L Carbon Dioxide (22-30) mmol/L Anion Gap mmol/L BUN (9-20) mg/dL Creatinine (0.66-1.25) mg/dL Est GFR (CKD-EPI)AfAm (>60 ml/min/1.73 sqM) Est GFR (CKD-EPI)NonAf (>60 ml/min/1.73 sqM) Glucose (74-99) mg/dL Plasma Lactic Acid Jeromy (0.7-2.0) mmol/L Calcium (8.4-10.2) mg/dL Total Bilirubin (0.2-1.3) mg/dL AST (17-59) U/L ALT (21-72) U/L Alkaline Phosphatase (38-126) U/L Total Protein (6.3-8.2) g/dL Albumin (3.5-5.0) g/dL Urine Color Yellow Urine Appearance Cloudy (Clear) Urine pH 7.0 (5.0-8.0) Ur Specific [place] 1.020 (1.001-1.035) Urine Protein Trace H (Negative) Urine Glucose (UA) Trace H (Negative) Urine Ketones Negative (Negative) Urine Blood Negative (Negative) Urine Nitrite Negative (Negative) Urine Bilirubin Negative (Negative) Urine Urobilinogen <2.0 (<2.0) mg/dL Ur Leukocyte Esterase Negative (Negative) Urine RBC 4 (0-5) /hpf Urine WBC 2 (0-5) /hpf Urine Bacteria Rare H (None) /hpf Urine Mucus Occasional H (None) /hpf Urine Yeast (Budding) Few H (None) /hpf - Radiology Data Radiology results: report reviewed (As discussed with radiologist there is concern for pulmonary embolism right lower lobe.) Disposition Clinical Impression: Pulmonary embolism Disposition: ADMITTED IP TO THIS HOSP Is patient prescribed a controlled substance at d/c from ED?: No Referrals: Elkin Pierson MD [Primary Care Provider] - 1-2 days Decision Time: 21:19
[2019-08-24 19:01] LABS: ALT 25 U/L (21-72); AST 21 U/L (17-59); African American GFR (CKD) >90 (>60 ml/min/1.73 sqM); Albumin 3.1 g/dL (3.5-5.0); Alkaline Phosphatase 54 U/L (38-126); Anion Gap 7 mmol/L; Blood Urea Nitrogen 20 mg/dL (9-20); Calcium 8.5 mg/dL (8.4-10.2); Carbon Dioxide 27 mmol/L (22-30); Chloride 98 mmol/L (98-107); Glucose 148 mg/dL (74-99); INR 0.9 (<1.2); Partial Thromboplastin Time 25.5 sec (22.0-30.0); Potassium 3.7 mmol/L (3.5-5.1); Prothrombin Time 9.6 sec (9.0-12.0); Sodium 132 mmol/L (137-145); Total Bilirubin 0.6 mg/dL (0.2-1.3); Total Protein 5.3 g/dL (6.3-8.2)
[2019-08-24] MEDS: SODIUM CHLORIDE 0.9% 1,000 ML IV SCH (19:03)
--- NOTE | 2019-08-24 19:09 | XR ---
EXAMINATION TYPE: XR chest 2V DATE OF EXAM: 08/24/2019 COMPARISON: 04/15/2019 INDICATION: Fever TECHNIQUE: Frontal and lateral views of the chest are obtained. FINDINGS: The heart size is normal. The pulmonary vasculature is normal. There is some mild posterior linear opacities which could be some mild plate atelectasis. Lungs are o therwise clear. IMPRESSION: 1. Suggestion of minimal posterior plate atelectasis.
[2019-08-24 19:14] LABS: Anisocytosis Slight; HCT 34.6 % (39.0-53.0); HGB 11.4 gm/dL (13.0-17.5); MCH 32.1 pg (25.0-35.0); MCHC 32.8 g/dL (31.0-37.0); MCV 97.7 fL (80.0-100.0); Macrocytosis Slight; Mean Platelet Volume 7.2; Platelet Count 170 k/uL (150-450); RBC 3.55 m/uL (4.30-5.90); RDW 16.5 % (11.5-15.5); WBC 2.8 k/uL (3.8-10.6)
[2019-08-24 19:24] LABS: Appearance,Urine Cloudy (Clear); Bacteria,Urine Rare /hpf; Bilirubin,Urine Negative (Negative); Blood,Urine Negative (Negative); Budding Yeast,Urine Few /hpf; Color,Urine Yellow; Glucose,Urine (UA) Trace (Negative); Ketones,Urine Negative (Negative); Leukocyte Esterase,Urine Negative (Negative); Mucus,Urine Occasional /hpf; Nitrite,Urine Negative (Negative); Protein,Urine Trace (Negative); RBC,Urine 4 /hpf (0-5); Urobilinogen,Urine <2.0 mg/dL (<2.0); WBC,Urine 2 /hpf (0-5)
[2019-08-24 19:26] LABS: Band Neutrophils % 1 %; Eosinophils # (M) 0.22 k/uL (0-0.7); Monocytes # (M) 0.48 k/uL (0-1.0); Neutrophils % (M) 49 %; Nucleated Red Blood Cells 0 /100 WBC (0-0); Total Cells Counted 100
--- NOTE | 2019-08-24 21:05 | CT ---
CT CHEST FOR PULMONARY EMBOLISM. EXAMINATION TYPE: CT angio chest DATE OF EXAM: 08/24/2019 INDICATION: chest pain, fever CT DLP: 644.1 mGycm, Automated exposure control for dose reduction was used. CONTRAST: Patient injected with 83cc mL of Isovue 370. COMPARISON: 03/08/2018 TECHNIQUE: CT of the chest is performed on a spiral scan at 2 mm thick sections. Study is performed with intravenous contrast timed for evaluation for pulmonary embolism. This will limit additional po rtions of the evaluation. 3-D MIP images reconstructed by the technologist are reviewed on the compu ter in the coronal and sagittal planes. FINDINGS: There is a large filling defect within the right lower lobe arterial branches. No mediastinal or hilar adenopathy enlarged by CT criteria is evident. The ascending aorta diameter at the level of the main pulmonary artery is 3.3 cm. The main pulmonary artery diameter at the bifur cation is 2.8 cm. There is a 0.6 cm density within the right midlung. Series 401 image 75 lung windows posterior right lower lobe consolidation is present. This could be associated with the pulmonary embolism, atelectasi s or pneumonia. Minimal right pleural effusion is present. Limited CT section through the upper abdomen are unremarkable. IMPRESSIONS: 1. Right lower lobe pulmonary embolism. 2. Right lower lobe consolidation, pneumonia, atelectasis, or associated with the patient's pulmonary embolism. 3. Small nodule within the right lower lung field. 4. Report was called to Dr. Wong by Dr. Ruiz by telephone [phone] hours 08/24/2019.
[2019-08-24] MEDS ORDERED: HEPARIN SODIUM,PORCINE 5,000 UNIT/ML 1 ML VIAL IV PRN (21:17)
[2019-08-24] MEDS ORDERED: HEPARIN SODIUM,PORCINE 10,000 UNIT/ML 1 ML VIAL IV ONE (21:17)
[2019-08-24] MEDS ORDERED: NALOXONE 0.4 MG/ML 1 ML VIAL IV PRN (21:19)
[2019-08-24] MEDS ORDERED: ACETAMINOPHEN TAB 325 MG TAB PO PRN (21:19)
[2019-08-24] MEDS: HEPARIN SOD,PORK IN 0.45% NACL 25,000 UNIT in 0.45% NACL 1 250ML.BAG IV SCH (21:49)
[2019-08-24] MEDS ORDERED: ONDANSETRON 4 MG TAB PO PRN (23:21)
[2019-08-24] MEDS ORDERED: FAMOTIDINE 20 MG TAB PO PRN (23:21)
[2019-08-25] MEDS: GABAPENTIN 300 MG CAP PO SCH ×3 (00:14→20:25)
[2019-08-25] MEDS: ACYCLOVIR 200 MG CAP PO SCH ×3 (00:14→20:25)
[2019-08-25] MEDS: PANTOPRAZOLE 40 MG/10 ML VIAL IV SCH ×2 (00:16→09:26)
[2019-08-25] MEDS: SODIUM CHLORIDE 0.9% 1,000 ML IV SCH ×3 (01:51→21:44)
[2019-08-25 03:23] LABS: Anisocytosis Slight; HCT 34.1 % (39.0-53.0); Hypochromasia Slight; MCH 32.1 pg (25.0-35.0); MCHC 32.3 g/dL (31.0-37.0); MCV 99.3 fL (80.0-100.0); Macrocytosis Slight; Mean Platelet Volume 6.2; Platelet Count 166 k/uL (150-450); RBC 3.44 m/uL (4.30-5.90); RDW 16.3 % (11.5-15.5); WBC 3.6 k/uL (3.8-10.6)
[2019-08-25 04:40] LABS: Eosinophils # (M) 0.25 k/uL (0-0.7); Lymphocytes # (M) 0.76 k/uL (1.0-4.8); Neutrophils % (M) 36 %; Nucleated Red Blood Cells 0 /100 WBC (0-0); Total Cells Counted 100
[2019-08-25] MEDS ORDERED: ACYCLOVIR 200 MG CAP PO SCH (09:00)
[2019-08-25] MEDS: ASPIRIN 325 MG TAB PO SCH (09:01)
[2019-08-25] MEDS: CALCIUM CARBONATE 500 MG CHEWABLE PO SCH ×2 (09:01→20:23)
[2019-08-25] MEDS ORDERED: ACETAMINOPHEN TAB 325 MG TAB PO PRN (10:58)
--- NOTE | 2019-08-25 14:08 | US ---
EXAMINATION TYPE: US venous doppler duplex LE DATE OF EXAM: 08/25/2019 1:50 PM COMPARISON: US 2016 CLINICAL HISTORY: PE. PE, bilateral leg swelling with left greater than right, exam done portable. SIDE PERFORMED: Bilateral TECHNIQUE: The lower extremity deep venous system is examined utilizing real time linear array sonog lisseth with graded compression, doppler sonography and color-flow sonography. VESSELS IMAGED: External Iliac Vein (EIV) Common Femoral Vein Deep Femoral Vein Greater Saphenous Vein * Femoral Vein Popliteal Vein Small Saphenous Vein * Proximal Calf Veins (* superficial vessels) There is normal flow, compressibility, vascular waveforms. Right Leg: Appears negative for DVT Left Leg: Appears negative for DVT IMPRESSION: No evident deep venous thrombosis at or above the knees.
[2019-08-25] MEDS ORDERED: DEXAMETHASONE 4 MG TAB PO SCH (14:30)
--- NOTE | 2019-08-25 15:39 | P.CNPUL ---
History of Present Illness Consult date: 08/25/19 Reason for consult: chest pain Chief complaint: Right-sided chest wall pain History of present illness: This is a 64-year-old white male patient of Dr. Pierson, with past medical history of multiple myeloma with last chemotherapy treatment was just over one week ago. Patient follows with Dr. Browning and is currently on P omalyst/Dexamethasone. Patient is also on a cyclic urine for episode of disseminated herpes zoster. Patient was seen in Dr. Browning's office yesterday on 08/24/2019, where he went for evaluation of right-sided chest wall discomfort in the morning, patient states he woke up with the soreness in his right lower chest anterior and lateral segment, and then experienced some fever. But no hemoptysis, no lightheadedness dizziness or syncopal episodes. Patient was evaluated by Dr. Browning, and sent to the emergency department, chest x-ray showed minimal posterior plate atelectasis. Lab work showed white blood cell count of 2.8, hemoglobin was 11.4, serum sodium was 132, dressing electrolytes and renal profile were within normal limits, plasma lactic acid was 2.6, urinalysis was negative for leuks, negative for white blood cell count, rare bacteria, and a few budding yeast. She was febrile with a temp of 102.6F. Oxygenation was stable on room air, with a pulse ox of 96-100%, patient was complaining of being short of breath on exertion. She did have some mild swelling and warmth to touch in his left lower extremity, CT chest was completed showing right lower lobe pulmonary embolism, and right lower lobe consolidation, small nodule within the right lower lung field. Patient was started on heparin infusion for anticoagulation. No signs of hypotension or tachycardia. Review of Systems All systems: negative Constitutional: Denies chills, Denies fever Eyes: denies blurred vision, denies pain Ears, nose, mouth and throat: Denies headache, Denies sore throat Cardiovascular: Reports chest pain, Denies shortness of breath Respiratory: Denies cough Gastrointestinal: Denies abdominal pain, Denies diarrhea, Denies nausea, Denies vomiting Musculoskeletal: Denies myalgias Integumentary: Denies pruritus, Denies rash Neurological: Denies numbness, Denies weakness Psychiatric: Denies anxiety, Denies depression Endocrine: Denies fatigue, Denies weight change Past Medical History Past Medical History: Cancer, Hyperlipidemia Additional Past Medical History / Comment(s): Hx. vertebral stress fx. shingles 2013, multiple myeloma-dx. 2015 finished chem jul 2016, stem cell transplant 09/03, wound rt heel- healed, neuropathy, chronic back, knee and lt hip pain,. Currently on oral chemo- 3 weeks on, 2 off. 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 Smoking Status: Former smoker Past Alcohol Use History: None Reported Additional Past Alcohol Use History / Comment(s): started smoking age 17 and quit age 27, smoked 1ppd Past Drug Use History: None Reported Additional Drug Use History / Comment(s): Pt states that he occasionally smokes marijuana to help with pain - Past Family History Father Family Medical History: Renal Disease Additional Family Medical History / Comment(s): aaa, Mother Family Medical History: No Reported History Additional Family Medical History / Comment(s): mom is healthy Medications and Allergies Home Medications Medication Instructions Recorded Confirmed Type oxyCODONE HCL [OxyIR] 5 mg PO QID PRN 02/05/17 08/24/19 History Dexamethasone 20 mg PO WE 04/15/19 08/24/19 History Famotidine [Pepcid] 20 mg PO DAILY PRN 04/15/19 08/24/19 History Gabapentin [Neurontin] 300 mg PO TID@0900,1830,2330 04/15/19 08/24/19 History Nitroglycerin 0.3mg Sl Tab 0.3 mg SL Q5M PRN 04/15/19 08/24/19 History Ondansetron HCl [Zofran] 4 mg PO Q4H PRN 04/15/19 08/24/19 History Acetaminophen Tab [Tylenol] 650 mg PO Q6HR PRN #30 tab 04/22/19 08/24/19 Rx Acyclovir 400 mg PO BID 08/24/19 08/24/19 History Aspirin EC [Ecotrin] 325 mg PO DAILY 08/24/19 08/24/19 History Calcium Carbonate [Calcium] 600 mg PO BID 08/24/19 08/24/19 History Pomalyst 3mg 3 mg PO HS 08/24/19 08/24/19 History Potassium Bicarbonate/Cit AC 25 meq PO AC-LUNCH 08/24/19 08/24/19 History [Potassium 25 Meq Tablet Eff] Allergies Allergy/AdvReac Type Severity Reaction Status Date / Time sulfamethoxazole Allergy Rash/Hives Verified 08/24/19 18:32 [From Bactrim] trimethoprim [From Bactrim] Allergy Rash/Hives Verified 08/24/19 18:32 Physical Exam Vitals: Vital Signs Temp Pulse Pulse Resp BP BP Pulse Ox 08/25/19 11:55 91 20 08/25/19 11:23 99.3 F 91 20 89/54 100 08/25/19 08:00 20 08/25/19 07:41 100.4 F H 82 17 121/70 93 L 08/25/19 04:00 99.1 F 65 16 121/79 96 08/25/19 00:00 98.9 F 74 18 126/75 98 08/24/19 22:00 74 20 94/64 100 08/24/19 21:51 98.8 F 75 18 94/64 100 08/24/19 21:00 77 22 132/82 99 08/24/19 20:00 80 10 L 132/82 100 08/24/19 17:28 102.6 F H 93 22 99/61 97 Intake and Output 08/25/19 08/25/19 08/25/19 06:59 14:59 22:59 Intake Total 108.316 200 Balance 108.316 200 Intake: Intake, IV Titration 108.316 Amount Heparin Sod,Pork in 0.45% 108.316 NaCl 25,000 unit In 0.45 % NaCl 1 250ml.bag @ 18 UNITS/KG/HR 16.329 mls/hr IV .[id number] [facility] Rx#: [id number] Oral 200 Other: Voiding Method Urinal Urinal # Voids 1 1 Weight 91 kg GENERAL EXAM: Alert, pleasant, 64-year-old white male patient on room air, with a pulse ox of 100% comfortable in no apparent distress. HEAD: Normocephalic/atraumatic. EYES: Normal reaction of pupils, equal size. Conjunctiva pink, sclera white. NOSE: Clear with pink turbinates. THROAT: No erythema or exudates. NECK: No masses, no JVD, no thyroid enlargement, no adenopathy. CHEST: No chest wall deformity. Symmetrical expansion. LUNGS: Equal air entry with a few bibasilar crackles, wheeze, rhonchi or dullness. CVS: Regular rate and rhythm, normal S1 and S2, no gallops, no murmurs, no rubs ABDOMEN: Soft, nontender. No hepatosplenomegaly, normal bowel sounds, no guarding or rigidity. EXTREMITIES: No clubbing, no edema, no cyanosis, 2+ pulses and upper and lower extremities. MUSCULOSKELETAL: Muscle strength and tone normal. SPINE: No scoliosis or deformity SKIN: No rashes CENTRAL NERVOUS SYSTEM: Alert and oriented -3. No focal deficits, tone is normal in all 4 extremities. PSYCHIATRIC: Alert and oriented -3. Appropriate affect. Intact judgment and insight. Results - Laboratory Findings CBC and BMP: 08/25/19 03:10 08/24/19 18:35 PT/INR, D-dimer PT 9.6 sec (9.0-12.0) 08/24/19 18:35 INR 0.9 (<1.2) 08/24/19 18:35 Abnormal lab findings: Abnormal Labs 08/24/19 08/24/19 08/24/19 18:35 18:35 18:35 WBC 2.8 L RBC 3.55 L Hgb 11.4 L Hct 34.6 L RDW 16.5 H Lymphocytes # (Manual) 0.70 L Monocytes # (Manual) APTT Sodium 132 L Glucose 148 H Plasma Lactic Acid Jeromy 2.6 H* Total Protein 5.3 L Albumin 3.1 L Urine Protein Urine Glucose (UA) Urine Bacteria Urine Mucus Urine Yeast (Budding) 08/24/19 08/24/19 08/25/19 19:05 22:26 03:10 WBC RBC Hgb Hct RDW Lymphocytes # (Manual) Monocytes # (Manual) APTT 131.0 H* Sodium Glucose Plasma Lactic Acid Jeromy 0.6 L Total Protein Albumin Urine Protein Trace H Urine Glucose (UA) Trace H Urine Bacteria Rare H Urine Mucus Occasional H Urine Yeast (Budding) Few H 08/25/19 03:10 WBC 3.6 L RBC 3.44 L Hgb 11.0 L Hct 34.1 L RDW 16.3 H Lymphocytes # (Manual) 0.76 L Monocytes # (Manual) 1.30 H APTT Sodium Glucose Plasma Lactic Acid Jeromy Total Protein Albumin Urine Protein Urine Glucose (UA) Urine Bacteria Urine Mucus Urine Yeast (Budding) - Diagnostic Findings Chest x-ray: report reviewed, image reviewed CT scan - chest: report reviewed, image reviewed Assessment and Plan Plan: Assessment: #1. Pleuritic right-sided chest pain related to acute pulmonary embolism, CTA chest showed right lower lobe pulmonary embolism and right lower lobe consolidation likely related to pulmonary infarction #2. Mild lactic acidosis improved with IV hydration #3. History of multiple myeloma diagnosed in November 2015, status post patrizia motherapy and stem cell transplant in August 2016 with multiple relapses, currently on chemotherapy, and Pomelyst and dexamethasone #4. History of shingles, currently on acyclovir #5. Chronic pain syndrome #6. Hyperlipidemia #7. Former smoker #8. Compression deformities of the lumbar spine Plan: Continue with heparin infusion, check patient's eligibility for Xarelto or Eliquis, we'll probably switch the IV anticoagulation to oral tomorrow. Check echocardiogram Ultrasound of lower extremities did not reveal any evidence of DVT. Hemodynamically patient is stable, oxygenation is stable, chest x-ray and CTA chest have been reviewed. Right lower lobe consolidation likely related to pulmonary infarction, rather than pneumonia. Currently afebrile, no cough, no hemoptysis. Clinically stable, continue to monitor I performed a history & physical examination of the patient and discussed their management with my nurse practitioner, Gail Dai. I reviewed the nurse practitioner's note and agree with the documented findings and plan of care. Lung sounds are positive for diminished breath sounds at the bases. The findings and the impression was discussed with the patient. I attest to the documentation by the nurse practitioner. Time with Patient: Greater than 30
[2019-08-25] MEDS: HEPARIN SOD,PORK IN 0.45% NACL 25,000 UNIT in 0.45% NACL 1 250ML.BAG IV SCH (20:17)
--- NOTE | 2019-08-25 21:08 | P.HPIM ---
History of Present Illness H&P Date: 08/25/19 Chief Complaint: Right lower chest abdomen pain History of presenting complaint: This is a very pleasant 64-year-old patient of Dr. Pierson. Patient's chronic stable medical conditions include hyperlipidemia, multiple myeloma, gait dysfunction uses a walker, peripheral neuropathy, minimal coronary artery disease per cardiac catheterization 30%. Patient had a prior to presentation's started out with pain in the right part of the abdomen no chest pressure was progressively getting much worse. Patient also has some fever. No cough. No urinary symptoms. Presented to ER. Computed tomography scan of the chest revealed a acute pulmonary embolism and possibly acute pulmonary infarction.. Pain started on IV heparin. Patient feels better this morning. Appetite is fair. Slight shortness of breath. Pain was worse with deep breathing. Review of systems: GEN.: Fever EYES: None HEENT: None NECK: None RESPIRATORY: As above CARDIOVASCULAR: None GASTROINTESTINAL: None GENITOURINARY: None MUSCULOSKELETAL: None LYMPHATICS: None HEMATOLOGICAL: None PSYCHIATRY: None NEUROLOGICAL: None Past medical history: Multiple myeloma, hyperlipidemia, chronic gait dysfunction uses a walker, peripheral neuropathy, minimal coronary artery disease 30% disease, vertebral stress fracture patient had shingles in 2013. 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 Smoked for 10 years and stopped at the age of 27. Did smoke marijuana in the remote past. Family history: renal disease, abdominal aortic aneurysm Physical examination: VITAL SIGNS: 102.6, 93, 22, 99/61, 97% on 2 L GENERAL: BMI 28., Laying in bed not in distress EYES: Pupils equal. Conjunctiva normal. HEENT: External appearance of nose and ears normal, oral cavity grossly normal. NECK: JVD not raised; masses not palpable. HEART: First and second heart sounds are normal; no edema. LUNGS: Respiratory rate normal; clear to auscultation. ABDOMEN: Soft, nontender, liver spleen not palpable, no masses palpable. PSYCH: [Alert and oriented x3; mood and affect anxious l. NEUROLOGICAL: Cranial nerves grossly intact; no facial asymmetry, power and sensation grossly intact. LYMPHATICS: No lymph nodes palpable in the axilla and neck Investigations reviewed in the clinical context: White count 0.8 hemoglobin 11.4 platelets 170 depression. 04/18/2015 0.97 Lactic acid 2. 6 repeat 0.6 Venous Doppler-negative for DVT CT chest-right lower lobe pulmonary embolism with associated area of consolidation Chest x-ray film personally reviewed by me-right lower lobe area of infiltrate Assessment: -Acute right pulmonary embolism -Acute right pulmonary infarction secondary pulmonary embolism possibly responsible for the fever. No other source of infection. -Multiple myeloma -hyperlipidemia -chronic gait dysfunction uses a walker -peripheral neuropathy side effect of chemotherapy -Minimal coronary artery disease per cardiac catheterization 30% disease -IV heparin monitoring - Plan: Care was discussed with the patient. Question were also. Pulmonary was consulted. So was oncology. Patient was switched over to normal anticoagulant some the morning. Coverage will be checked. Home medications will be resumed. Past Medical History Past Medical History: Cancer, Hyperlipidemia Additional Past Medical History / Comment(s): Hx. vertebral stress fx. shingles 2013, multiple myeloma-dx. 2015 finished chem jul 2016, stem cell transplant 09/03, wound rt heel- healed, neuropathy, chronic back, knee and lt hip pain,. Currently on oral chemo- 3 weeks on, 2 off. 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 Smoking Status: Former smoker Past Alcohol Use History: None Reported Additional Past Alcohol Use History / Comment(s): started smoking age 17 and quit age 27, smoked 1ppd Past Drug Use History: None Reported Additional Drug Use History / Comment(s): Pt states that he occasionally smokes marijuana to help with pain - Past Family History Father Family Medical History: Renal Disease Additional Family Medical History / Comment(s): aaa, Mother Family Medical History: No Reported History Additional Family Medical History / Comment(s): mom is healthy Medications and Allergies Home Medications Medication Instructions Recorded Confirmed Type oxyCODONE HCL [OxyIR] 5 mg PO QID PRN 02/05/17 08/24/19 History Dexamethasone 20 mg PO WE 04/15/19 08/24/19 History Famotidine [Pepcid] 20 mg PO DAILY PRN 04/15/19 08/24/19 History Gabapentin [Neurontin] 300 mg PO TID@0900,1830,2330 04/15/19 08/24/19 History Nitroglycerin 0.3mg Sl Tab 0.3 mg SL Q5M PRN 04/15/19 08/24/19 History Ondansetron HCl [Zofran] 4 mg PO Q4H PRN 04/15/19 08/24/19 History Acetaminophen Tab [Tylenol] 650 mg PO Q6HR PRN #30 tab 04/22/19 08/24/19 Rx Acyclovir 400 mg PO BID 08/24/19 08/24/19 History Aspirin EC [Ecotrin] 325 mg PO DAILY 08/24/19 08/24/19 History Calcium Carbonate [Calcium] 600 mg PO BID 08/24/19 08/24/19 History Pomalyst 3mg 3 mg PO HS 08/24/19 08/24/19 History Potassium Bicarbonate/Cit AC 25 meq PO AC-LUNCH 08/24/19 08/24/19 History [Potassium 25 Meq Tablet Eff] Apixaban [Eliquis Starter Pack 1 mg PO DIRECTED 30 Days #1 pack 08/25/19 Rx (for VTE)] Allergies Allergy/AdvReac Type Severity Reaction Status Date / Time sulfamethoxazole Allergy Rash/Hives Verified 08/24/19 18:32 [From Bactrim] trimethoprim [From Bactrim] Allergy Rash/Hives Verified 08/24/19 18:32 Physical Exam Vitals: Vital Signs Temp Pulse Pulse Resp BP BP Pulse Ox 08/25/19 07:41 100.4 F H 82 17 121/70 93 L 08/25/19 04:00 99.1 F 65 16 121/79 96 08/25/19 00:00 98.9 F 74 18 126/75 98 08/24/19 22:00 74 20 94/64 100 08/24/19 21:51 98.8 F 75 18 94/64 100 08/24/19 21:00 77 22 132/82 99 08/24/19 20:00 80 10 L 132/82 100 08/24/19 17:28 102.6 F H 93 22 99/61 97 Intake and Output 08/24/19 08/25/19 08/25/19 22:59 06:59 14:59 Intake Total 1100 108.316 Balance 1100 108.316 Intake: Amount of Fluid Infused ( 1100 ml) Intake, IV Titration 108.316 Amount Heparin Sod,Pork in 0.45% 108.316 NaCl 25,000 unit In 0.45 % NaCl 1 250ml.bag @ 18 UNITS/KG/HR 16.329 mls/hr IV .[id number] [facility] Rx#: [id number] Other: Voiding Method Urinal # Voids 1 Weight 90.718 kg 91 kg Results CBC & Chem 7: 08/25/19 03:10 08/24/19 18:35 Labs: Abnormal Lab Results - Last 24 Hours (Table) 08/24/19 08/24/19 08/24/19 Range/Units 18:35 18:35 18:35 WBC 2.8 L (3.8-10.6) k/uL RBC 3.55 L (4.30-5.90) m/uL Hgb 11.4 L (13.0-17.5) gm/dL Hct 34.6 L (39.0-53.0) % RDW 16.5 H (11.5-15.5) % Lymphocytes # (Manual) 0.70 L (1.0-4.8) k/uL Monocytes # (Manual) (0-1.0) k/uL APTT (22.0-30.0) sec Sodium 132 L (137-145) mmol/L Glucose 148 H (74-99) mg/dL Plasma Lactic Acid Jeromy 2.6 H* (0.7-2.0) mmol/L Total Protein 5.3 L (6.3-8.2) g/dL Albumin 3.1 L (3.5-5.0) g/dL Urine Protein (Negative) Urine Glucose (UA) (Negative) Urine Bacteria (None) /hpf Urine Mucus (None) /hpf Urine Yeast (Budding) (None) /hpf 08/24/19 08/24/19 08/25/19 Range/Units 19:05 22:26 03:10 WBC (3.8-10.6) k/uL RBC (4.30-5.90) m/uL Hgb (13.0-17.5) gm/dL Hct (39.0-53.0) % RDW (11.5-15.5) % Lymphocytes # (Manual) (1.0-4.8) k/uL Monocytes # (Manual) (0-1.0) k/uL APTT 131.0 H* (22.0-30.0) sec Sodium (137-145) mmol/L Glucose (74-99) mg/dL Plasma Lactic Acid Jeromy 0.6 L (0.7-2.0) mmol/L Total Protein (6.3-8.2) g/dL Albumin (3.5-5.0) g/dL Urine Protein Trace H (Negative) Urine Glucose (UA) Trace H (Negative) Urine Bacteria Rare H (None) /hpf Urine Mucus Occasional H (None) /hpf Urine Yeast (Budding) Few H (None) /hpf 08/25/19 Range/Units 03:10 WBC 3.6 L (3.8-10.6) k/uL RBC 3.44 L (4.30-5.90) m/uL Hgb 11.0 L (13.0-17.5) gm/dL Hct 34.1 L (39.0-53.0) % RDW 16.3 H (11.5-15.5) % Lymphocytes # (Manual) 0.76 L (1.0-4.8) k/uL Monocytes # (Manual) 1.30 H (0-1.0) k/uL APTT (22.0-30.0) sec Sodium (137-145) mmol/L Glucose (74-99) mg/dL Plasma Lactic Acid Jeromy (0.7-2.0) mmol/L Total Protein (6.3-8.2) g/dL Albumin (3.5-5.0) g/dL Urine Protein (Negative) Urine Glucose (UA) (Negative) Urine Bacteria (None) /hpf Urine Mucus (None) /hpf Urine Yeast (Budding) (None) /hpf Microbiology - Last 24 Hours (Table) 08/24/19 19:05 Urine Culture - Preliminary Urine,Voided Thrombosis Risk Factor Assmnt - Choose All That Apply Other Risk Factors: Yes Each Risk Factor Represents 2 Points: Age 61-74 years Each Risk Factor Represents 3 Points: History of DVT/PE Thrombosis Risk Factor Assessment Total Risk Factor Score: 5 Thrombosis Risk Factor Assessment Level: High Risk
[2019-08-26] MEDS: SODIUM CHLORIDE 0.9% 1,000 ML IV SCH ×2 (03:20→07:12)
[2019-08-26] MEDS: HEPARIN SOD,PORK IN 0.45% NACL 25,000 UNIT in 0.45% NACL 1 250ML.BAG IV SCH (04:24)
[2019-08-26] MEDS: GABAPENTIN 300 MG CAP PO SCH ×2 (04:24→09:59)
[2019-08-26 07:15] LABS: Anisocytosis Slight; Basophils % (A) 0 %; Eosinophils % (A) 0 %; HCT 33.3 % (39.0-53.0); HGB 10.7 gm/dL (13.0-17.5); Hypochromasia Slight; Lymphocytes # (A) 0.3 k/uL (1.0-4.8); Lymphocytes % (A) 9 %; MCH 31.8 pg (25.0-35.0); MCHC 32.2 g/dL (31.0-37.0); MCV 98.7 fL (80.0-100.0); Macrocytosis Slight; Mean Platelet Volume 6.7; Monocytes # (A) 0.2 k/uL (0-1.0); Monocytes % (A) 8 %; Neutrophils # (A) 2.2 k/uL (1.3-7.7); Neutrophils % (A) 81 %; Platelet Count 179 k/uL (150-450); RBC 3.37 m/uL (4.30-5.90); RDW 16.1 % (11.5-15.5); WBC 2.7 k/uL (3.8-10.6)
[2019-08-26] MEDS ORDERED: RIVAROXABAN 15 MG TAB PO SCH (07:30)
[2019-08-26] MEDS ORDERED: PANTOPRAZOLE 40 MG TABLET PO SCH (09:00)
[2019-08-26] MEDS: ASPIRIN 325 MG TAB PO SCH (09:51)
[2019-08-26] MEDS: CALCIUM CARBONATE 500 MG CHEWABLE PO SCH (09:51)
[2019-08-26] MEDS: ACYCLOVIR 200 MG CAP PO SCH (09:52)
[2019-08-26 11:31] VITALS: BP 121/71; PULSE 67; RESP 16; TEMP 96.8
--- NOTE | 2019-08-26 12:00 | ECHOF ---
Referral Reason:acute PE MEASUREMENTS -------- HEIGHT: 177.8 cm WEIGHT: 90.7 kg BP: 89/54 RVIDd: 3.2 cm (< 3.3) IVSd: 1.2 cm (0.6 - 1.1) LVIDd: 4.7 cm (3.9 - 5.3) LVPWd: 1.3 cm (0.6 - 1.1) IVSs: 2.1 cm LVIDs: 2.9 cm LVPWs: 1.7 cm LA Diam: 3.5 cm (2.7 - 3.8) LAESV Index (A-L): 20.66 ml/m Ao Diam: 3.8 cm (2.0 - 3.7) AV Cusp: 2.6 cm (1.5 - 2.6) MV EXCURSION: 13.883 mm (> 18.000) MV EF SLOPE: 44 mm/s (70 - 150) EPSS: 0.6 cm MV E Keven: 0.63 m/s MV DecT: 229 ms MV A Keven: 0.83 m/s MV E/A Ratio: 0.75 RAP: 5.00 mmHg RVSP: 27.98 mmHg TAPSE: 20.65 mm FINDINGS -------- Sinus rhythm. This was a technically adequate study. The left ventricular size is normal. There is mild concentric left ventricular hypertrophy. Overa ll left ventricular systolic function is normal with, an EF between 60 - 65 %. The diastolic fillin g pattern is normal for the age of the patient 8.44. The right ventricle is normal in size. Normal LA size by volume 22+/-6 ml/m2. The right atrium is normal in size. Interatrial and interventricular septum intact. The aortic valve is trileaflet and appears structurally normal. The mitral valve is normal. Mild tricuspid regurgitation present. Right ventricular systolic pressure is normal at < 35 mmHg. The pulmonic valve was not well visualized. The aortic root is dilated measuring 3.8cm. IVC Not well visulized. There is no pericardial effusion. CONCLUSIONS -------- 1. Sinus rhythm. 2. This was a technically adequate study. 3. The left ventricular size is normal. 4. There is mild concentric left ventricular hypertrophy. 5. Overall left ventricular systolic function is normal with, an EF between 60 - 65 %. 6. The diastolic filling pattern is normal for the age of the patient 8.44 7. The right ventricle is normal in size. 8. Normal LA size by volume 22+/-6 ml/m2. 9. The right atrium is normal in size. 10. Interatrial and interventricular septum intact. 11. The aortic valve is trileaflet and appears structurally normal. 12. The mitral valve is normal. 13. Mild tricuspid regurgitation present. 14. Right ventricular systolic pressure is normal at < 35 mmHg. 15. The pulmonic valve was not well visualized. 16. The aortic root is dilated measuring 3.8cm. 17. IVC Not well visulized. 18. There is no pericardial effusion. RAILROAD SIGNAL TECHNICIAN: Marya Álvarez RDCS
--- NOTE | 2019-08-26 13:51 | P.PN ---
Subjective Progress Note Date: 08/26/19 Principal diagnosis: Right-sided pleuritic chest pain secondary to right lower lobe pulmonary emboli with right lower lobe consolidation suspect pulmonary infarction This is a 64-year-old white male patient of Dr. Pierson, with past medical history of multiple myeloma with last chemotherapy treatment was just over one week ago. Patient follows with Dr. Browning and is currently on Pomalyst/Dexamethasone. Patient is also on a cyclic urine for episode of disseminated herpes zoster. Patient was seen in Dr. Browning's office yesterday on 08/24/2019, where he went for evaluation of right-sided chest wall discomfort in the morning, patient states he woke up with the soreness in his right lower chest anterior and lateral segment, and then experienced some fever. But no hemoptysis, no lightheadedness dizziness or syncopal episodes. Patient was evaluated by Dr. Browning, and sent to the emergency department, chest x-ray showed minimal posterior plate atelectasis. Lab work showed white blood cell count of 2.8, hemoglobin was 11.4, serum sodium was 132, dressing electrolytes and renal profile were within normal limits, plasma lactic acid was 2.6, urinalysis was negative for leuks, negative for white blood cell count, rare bacteria, and a few budding yeast. She was febrile with a temp of 102.6F. Oxygenation was stable on room air, with a pulse ox of 96-100%, patient was complaining of being short of breath on exertion. She did have some mild swelling and warmth to t ouch in his left lower extremity, CT chest was completed showing right lower lobe pulmonary embolism, and right lower lobe consolidation, small nodule within the right lower lung field. Patient was started on heparin infusion for anticoagulation. No signs of hypotension or tachycardia. The patient is seen today 08/26/2019 in follow-up on the selective care unit. He is awake and alert in no acute distress. His right-sided chest discomfort has improved. He denies any worsening shortness of breath, cough or congestion. No hemoptysis. Maintaining good O2 saturations in the upper 90s on room air. He is afebrile. Hemodynamically stable. Dopplers of the lower extremities were negative. Blood culture reveals no growth. Urine culture reveals no growth. White count 2.7. Hemoglobin 10.7. He has been transitioned to Xarelto. Objective - Vital Signs Vital signs: Vital Signs Temp 96.8 F L 08/26/19 11:25 Pulse 67 08/26/19 11:25 Resp 16 08/26/19 11:25 BP 121/71 08/26/19 11:25 Pulse Ox 99 08/26/19 11:25 Intake & Output 08/25/19 08/26/19 08/26/19 18:59 06:59 18:59 Intake Total 200 1110 Output Total 200 Balance 200 910 Weight 91 kg Intake: Intake, IV Titration 0 990 Amount Heparin Sod,Pork in 0.45% 0 NaCl 25,000 unit In 0.45 % NaCl 1 250ml.bag @ 18 UNITS/KG/HR 16.329 mls/hr IV .[id number] NNAMDI Rx#: [id number] Sodium Chloride 0.9% 1, 990 000 ml @ 130 mls/hr IV . [id number] NNAMDI Rx#:[id number] Oral 200 120 Output: Urine 200 Other: Voiding Method Urinal Urinal # Voids 1 - Exam GENERAL EXAM: Alert, pleasant, 64-year-old male patient on room air, with a pulse ox of 99% comfortable in no apparent distress. HEAD: Normocephalic/atraumatic. EYES: Normal reaction of pupils, equal size. Conjunctiva pink, sclera white. NOSE: Clear with pink turbinates. THROAT: No erythema or exudates. NECK: No masses, no JVD, no thyroid enlargement, no adenopathy. CHEST: No chest wall deformity. Symmetrical expansion. LUNGS: Equal air entry with a few crackles in the right base. CVS: Regular rate and rhythm, normal S1 and S2, no gallops, no murmurs, no rubs ABDOMEN: Soft, nontender. No hepatosplenomegaly, normal bowel sounds, no guardi ng or rigidity. EXTREMITIES: No clubbing, no edema, no cyanosis, 2+ pulses and upper and lower extremities. MUSCULOSKELETAL: Muscle strength and tone normal. SPINE: No scoliosis or deformity SKIN: No rashes CENTRAL NERVOUS SYSTEM: No focal deficits, tone is normal in all 4 extremities. PSYCHIATRIC: Alert and oriented -3. Appropriate affect. Intact judgment and insight. - Labs CBC & Chem 7: 08/26/19 06:36 08/24/19 18:35 Labs: Abnormal Lab Results - Last 24 Hours (Table) 08/25/19 08/26/19 08/26/19 Range/Units 15:45 06:36 06:36 WBC 2.7 L (3.8-10.6) k/uL RBC 3.37 L (4.30-5.90) m/uL Hgb 10.7 L (13.0-17.5) gm/dL Hct 33.3 L (39.0-53.0) % RDW 16.1 H (11.5-15.5) % Lymphocytes # 0.3 L (1.0-4.8) k/uL APTT 61.5 H 85.5 H (22.0-30.0) sec Microbiology - Last 24 Hours (Table) 08/24/19 19:05 Urine Culture - Final Urine,Voided 08/24/19 18:35 Blood Culture - Preliminary Blood No Growth after 24 hours Assessment and Plan Assessment: #1. Pleuritic right-sided chest pain related to acute pulmonary embolism, CTA chest showed right lower lobe pulmonary embolism and right lower lobe conso lidation likely related to pulmonary infarction #2. Mild lactic acidosis improved with IV hydration #3. History of multiple myeloma diagnosed in November 2015, status post chemotherapy and stem cell transplant in August 2016 with multiple relapses, currently on chemotherapy, and Pomelyst and dexamethasone #4. History of shingles, currently on acyclovir #5. Chronic pain syndrome #6. Hyperlipidemia #7. 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 Alvarez. He has been transitioned to relto. Cleared for discharge from the pulmonary standpoint. He will follow- up in our office in 1-2 weeks' time. He is encouraged to call sooner with any recurrence of symptoms or other questions or concerns. I, the cosigning physician, performed a history & physical examination of the patient. Lungs sounds with faint crackles in the right base. Maintaining good O2 saturations in the 90s on room air. I discussed the assessment and plan of care with my nurse practitioner, Barbara Monroy. I attest to the above note as dictated by her.
--- NOTE | 2019-08-26 18:08 | P.DS ---
Providers Date of admission: 08/24/19 21:19 Expected date of discharge: 08/26/19 Attending physician: Devon Ferro Consults: 08/24/19 21:20 Consult Physician Urgent Consulting Provider: Lisa Alvarez Consult Reason/Comments: PE Do you want consulting provider notified?: Yes Consult Physician Urgent Consulting Provider: Luis A Mcgowan Consult Reason/Comments: Oncological Do you want consulting provider notified?: Already Contacted Primary care physician: Denton Pierson [facility] Course: Chief Complaint: Right lower chest abdomen pain History of presenting complaint: This is a very pleasant 64-year-old patient of Dr. Pierson. Patient's chronic stable medical conditions include hyperlipidemia, multiple myeloma, gait dysfunction uses a walker, peripheral neuropathy, minimal coronary artery disease per cardiac catheterization 30%. Patient had a prior to presentation's started out with pain in the right part of the abdomen no chest pressure was progressively getting much worse. Patient also has some fever. No cough. No urinary symptoms. Presented to ER. Computed tomography scan of the chest revealed a acute pulmonary embolism and possibly acute pulmonary infarction.. Pain started on IV heparin. Patient feels better this morning. Appetite is fair. Slight shortness of breath. Pain was worse with deep breathing. Today-patient doing better. Switched over to [facility] to go home. Patient was okayed by pulmonary to be discharged. Questions were answered. Patient's venous Doppler was negative for DVT. 2-D echo showed to right heart pressure to be normal Consultation: Dr. Alvarez from pulmonary Physical examination: VITAL SIGNS: 96.8, 67, 16, 121/71, platelet percent room air GENERAL: Laying in bed, comfortable EYES: Pupils equal. Conjunctiva normal. HEENT: External appearance of nose and ears normal, oral cavity grossly normal. NECK: JVD not raised; masses not palpable. HEART: First and second heart sounds are normal; no edema. LUNGS: Respiratory rate normal; clear to auscultation. ABDOMEN: Soft, nontender, liver spleen not palpable, no masses palpable. PSYCH: [Alert and oriented x3; mood and affect anxious l. Investigations reviewed in the clinical context: White count 2.7 hemoglobin 10.7 White count 0.8 hemoglobin 11.4 platelets 170 Lactic acid 2. 6 repeat 0.6 Venous Doppler-negative for DVT CT chest-right lower lobe pulmonary embolism with associated area of consolidation Chest x-ray film personally reviewed by me-right lower lobe area of infiltrate Assessment: -Acute right pulmonary embolism -Acute right pulmonary infarction secondary pulmonary embolism possibly responsible for the fever. No other source of infection. -Multiple myeloma -hyperlipidemia -chronic gait dysfunction uses a walker -peripheral neuropathy side effect of chemotherapy -Minimal coronary artery disease per cardiac catheterization 30% disease -IV heparin monitoring - Disposition: Home Patient Condition at Discharge: Stable Plan - Discharge Summary New Discharge Prescriptions: New Apixaban [Eliquis Starter Pack (for VTE)] 1 mg PO DIRECTED 30 Days #1 pack Aspirin 81 mg PO DAILY #30 chewable Continue oxyCODONE HCL [OxyIR] 5 mg PO QID PRN PRN Reason: Pain Famotidine [Pepcid] 20 mg PO DAILY PRN PRN Reason: Heartburn Ondansetron HCl [Zofran] 4 mg PO Q4H PRN PRN Reason: Nausea Nitroglycerin 0.3mg Sl Tab 0.3 mg SL Q5M PRN PRN Reason: Chest Pain Gabapentin [Neurontin] 300 mg PO TID@0900,1830,2330 Dexamethasone 20 mg PO WE Acetaminophen Tab [Tylenol] 650 mg PO Q6HR PRN #30 tab PRN Reason: Mild Pain Or Fever > 100.5 Acyclovir 400 mg PO BID Calcium Carbonate [Calcium] 600 mg PO BID Pomalyst 3mg 3 mg PO HS Potassium Bicarbonate/Cit AC [Potassium 25 Meq Tablet Eff] 25 meq PO AC-LUNCH Discontinued Aspirin EC [Ecotrin] 325 mg PO DAILY Discharge Medication List oxyCODONE HCL [OxyIR] 5 mg PO QID PRN 02/05/17 [History] Dexamethasone 20 mg PO WE 04/15/19 [History] Famotidine [Pepcid] 20 mg PO DAILY PRN 04/15/19 [History] Gabapentin [Neurontin] 300 mg PO TID@0900,1830,2330 04/15/19 [History] Nitroglycerin 0.3mg Sl Tab 0.3 mg SL Q5M PRN 04/15/19 [History] Ondansetron HCl [Zofran] 4 mg PO Q4H PRN 04/15/19 [History] Acetaminophen Tab [Tylenol] 650 mg PO Q6HR PRN #30 tab 04/22/19 [Rx] Acyclovir 400 mg PO BID 08/24/19 [History] Calcium Carbonate [Calcium] 600 mg PO BID 08/24/19 [History] Pomalyst 3mg 3 mg PO HS 08/24/19 [History] Potassium Bicarbonate/Cit AC [Potassium 25 Meq Tablet Eff] 25 meq PO AC-LUNCH 08/24/19 [History] Apixaban [Eliquis Starter Pack (for VTE)] 1 mg PO DIRECTED 30 Days #1 pack 08/25/19 [Rx] Aspirin 81 mg PO DAILY #30 chewable 08/26/19 [Rx] Follow up Appointment(s)/Referral(s): Elkin Pierson MD [Primary Care Provider] - 1 Week (Office will call with follow up appointment. ) Lisa Alvarez MD [STAFF PHYSICIAN] - 09/09/19 2:30 pm (With Barbara FALK.) Patient Instructions/Handouts: Pulmonary Embolism (DC), Safe Use of Anticoagulants (DC) Activity/Diet/Wound Care/Special Instructions: pts Eliquis starter pack is filled in [facility] pharmacy (it was pulled from ). Free coupon applied. Pts 30 day copay would be $27/mo thereafter Discharge Disposition: HOME SELF-CARE
[2019-08-31] MEDS ORDERED: DEXAMETHASONE 4 MG TAB PO SCH (09:00)
== END 2019-08-26 13:50 | disposition home or self-care (01) | DRG 176 ==
LOC: EC 17:17 → 3SCARD 21:19
PROVIDERS: ADMIT Hospitalist; ATTEND Hospitalist
DX: I26.99 Other pulmonary embolism without acute cor pulmonale (principal); C90.00 Multiple myeloma not having achieved remission; Z94.84 Stem cells transplant status; E87.2 Acidosis; G62.0 Drug-induced polyneuropathy; T45.1X5A Adverse effect of antineoplastic and immunosuppressive drugs, initial encounter; E78.5 Hyperlipidemia, unspecified; G89.4 Chronic pain syndrome; M25.552 Pain in left hip; I25.10 Atherosclerotic heart disease of native coronary artery without angina pectoris; M54.9 Dorsalgia, unspecified; M25.569 Pain in unspecified knee; R26.9 Unspecified abnormalities of gait and mobility; Z79.82 Long term (current) use of aspirin; Z79.52 Long term (current) use of systemic steroids; Z79.899 Other long term (current) drug therapy; Z87.891 Personal history of nicotine dependence; Z86.19 Personal history of other infectious and parasitic diseases; Z98.890 Other specified postprocedural states; Z87.312 Personal history of (healed) stress fracture; Z88.2 Allergy status to sulfonamides; Z82.49 Family history of ischemic heart disease and other diseases of the circulatory system; Z84.1 Family history of disorders of kidney and ureter
CPT/HCPCS: 36415; 71046; 71275; 80053; 81001; 83605; 85025; 85610; 85730; 87040; 87086; 93306; 93970; 96361; 96365; 96376; 99285

== ENCOUNTER 2019-10-03 21:20 | Inpatient (IN) | payer MEDICARE, BC ==
[2019-10-03] MEDS ORDERED: SODIUM CHLORIDE 0.9% 1,000 ML IV ONE (21:55)
[2019-10-03] MEDS ORDERED: ALBUTEROL NEBULIZED 2.5 MG/3 ML INHALATION STA (22:01)
--- NOTE | 2019-10-03 22:11 | ED ---
General Adult HPI - General Chief complaint: Upper Respiratory Infection Stated complaint: Fever,Cough-CA Pt Time Seen by Provider: 10/03/19 21:48 Source: patient, RN notes reviewed, old records reviewed Mode of arrival: ambulatory Limitations: no limitations - History of Present Illness Initial comments: 64-year-old male history of multiple myelomacurrently on chemotherapy presenting with cough and fever. Patient has had productive cough for the past 24 hours. He's had fever at home. He does report some URI symptoms and sick contact in his with similar symptoms. His last chemotherapy was one week ago. Denies significant abdominal pain. Denies dysuria or hematuria. Denies rash. No history of COPD. No associated chest pain. Recent diagnosis of PE currently anticoagulated on oral anticoagulants. - Related Data Home Medications Medication Instructions Recorded Confirmed oxyCODONE HCL [OxyIR] 5 mg PO QID PRN 02/05/17 10/03/19 Dexamethasone 20 mg PO WE 04/15/19 10/03/19 Famotidine [Pepcid] 20 mg PO DAILY PRN 04/15/19 10/03/19 Gabapentin [Neurontin] 300 mg PO TID@0900,1830,2330 04/15/19 10/03/19 Ondansetron HCl [Zofran] 4 mg PO Q4H PRN 04/15/19 10/03/19 Acyclovir 400 mg PO BID 08/24/19 10/03/19 Calcium Carbonate [Calcium] 600 mg PO BID 08/24/19 10/03/19 Pomalyst 3mg 3 mg PO HS 08/24/19 10/03/19 Potassium Bicarbonate/Cit AC 25 meq PO AC-LUNCH 08/24/19 10/03/19 [Potassium 25 Meq Tablet Eff] Apixaban [Eliquis] 5 mg PO BID 10/03/19 10/03/19 Nitroglycerin Sl Tabs [Nitrostat] 0.4 mg SUBLINGUAL Q5M PRN 10/03/19 10/03/19 Previous Rx's Medication Instructions Recorded Aspirin 81 mg PO DAILY #30 chewable 08/26/19 Allergies Allergy/AdvReac Type Severity Reaction Status Date / Time sulfamethoxazole Allergy Rash/Hives Verified 10/03/19 23:40 [From Bactrim] trimethoprim [From Bactrim] Allergy Rash/Hives Verified 10/03/19 23:40 Review of Systems ROS Statement: Those systems with pertinent positive or pertinent negative responses have been documented in the HPI. ROS Other: All systems not noted in ROS Statement are negative. Past Medical History Past Medical History: Cancer, Hyperlipidemia Additional Past Medical History / Comment(s): Hx. vertebral stress fx. shingles 2013, multiple myeloma-dx. 2015 finished chem jul 2016, stem cell transpla nt 09/03, wound rt heel- healed, neuropathy, chronic back, knee and lt hip pain,. Currently on oral chemo- 3 weeks on, 2 off. History of Any Multi-Drug Resistant Organisms: None Reported Past Surgical History: Orthopedic Surgery Additional Past Surgical History / Comment(s): excision of uvular lesion(benign) 2009, colonoscopy, dave knee arthroscopy, rt rotator cuff sx, moles removed from back(benign)bone marrow aspiration/bx,stem cell transplant 2015, Past Anesthesia/Blood Transfusion Reactions: No Reported Reaction Past Psychological History: No Psychological Hx Reported Smoking Status: Former smoker Past Alcohol Use History: None Reported Past Drug Use History: None Reported - Past Family History Father Family Medical History: Renal Disease Additional Family Medical History / Comment(s): aaa, Mother Family Medical History: No Reported History Additional Family Medical History / Comment(s): mom is healthy General Exam Limitations: no limitations General appearance: alert, in no apparent distress Head exam: Present: atraumatic, normocephalic Eye exam: Present: normal appearance, PERRL ENT exam: Present: mucous membranes dry, other (mild pharyngeal erythema) Neck exam: Present: normal inspection. Absent: tenderness, meningismus Respiratory exam: Present: wheezes, rhonchi. Absent: respiratory distress Cardiovascular Exam: Present: regular rate, normal rhythm GI/Abdominal exam: Present: soft. Absent: distended, tenderness Extremities exam: Present: normal inspection, normal capillary refill. Absent: pedal edema, calf tenderness Neurological exam: Present: alert, oriented X3 Psychiatric exam: Present: normal affect, normal mood Skin exam: Present: warm, dry, intact. Absent: cyanosis, diaphoretic Course Vital Signs 10/03/19 10/03/19 10/03/19 21:29 23:00 23:10 Temperature 102.1 F H Pulse Rate 59 L 82 82 Respiratory 16 17 14 Rate Blood Pressure 88/56 84/62 86/60 O2 Sat by Pulse 88 L 100 99 Oximetry 10/03/19 10/03/19 10/03/19 23:25 23:33 23:40 Temperature Pulse Rate 75 81 80 Respiratory 22 Rate Blood Pressure 98/62 O2 Sat by Pulse 99 Oximetry EKG Findings - EKG Comments: EKG Findings:: EKG: Normal sinus rhythm, rate 92, CT interval 154, QRS duration 90, QTC 440, no ST segment elevation Medical Decision Making - Medical Decision Making 64-year-old male history of multiple myeloma on chemotherapy presents for evaluation of cough, URI symptoms, fever. Patient is initially tachycardic with a low blood pressure in the 80s systolic. He is febrile to 102. Fever workup is initiated. Patient has chest x-ray which is negative for focal pneumonia. He has a CBC showing a normal white blood cell count 5.0, stable hemoglobin at 12. Has a normal CMP. Influenza is negative. Urinalysis and urine culture are pending. Blood culture has been obtained. Lactic acid is normal 1.5. Patient's given IV hydration with improvement in blood pressure. He will be a dmitted for close monitoring, IV antibiotics with concern for bacteremia or developing sepsis. Case is discussed with admitting physician. - Lab Data Result diagrams: 10/03/19 21:50 10/03/19 21:50 Lab Results 10/03/19 10/03/19 10/03/19 Range/Units 21:50 21:50 21:50 WBC 5.0 (3.8-10.6) k/uL RBC 3.77 L (4.30-5.90) m/uL Hgb 12.0 L (13.0-17.5) gm/dL Hct 36.5 L (39.0-53.0) % MCV 97.0 (80.0-100.0) fL MCH 31.8 (25.0-35.0) pg MCHC 32.8 (31.0-37.0) g/dL RDW 16.7 H (11.5-15.5) % Plt Count 276 (150-450) k/uL Neutrophils % 81 % Lymphocytes % 8 % Monocytes % 6 % Eosinophils % 2 % Basophils % 2 % Neutrophils # 4.1 (1.3-7.7) k/uL Lymphocytes # 0.4 L (1.0-4.8) k/uL Monocytes # 0.3 (0-1.0) k/uL Eosinophils # 0.1 (0-0.7) k/uL Basophils # 0.1 (0-0.2) k/uL Hypochromasia Slight Anisocytosis Slight Macrocytosis Slight PT (9.0-12.0) sec INR (<1.2) APTT (22.0-30.0) sec Sodium 131 L (137-145) mmol/L Potassium 4.2 (3.5-5.1) mmol/L Chloride 99 (98-107) mmol/L Carbon Dioxide 25 (22-30) mmol/L Anion Gap 7 mmol/L BUN 20 (9-20) mg/dL Creatinine 1.09 (0.66-1.25) mg/dL Est GFR (CKD-EPI)AfAm 82 (>60 ml/min/1.73 sqM) Est GFR (CKD-EPI)NonAf 71 (>60 ml/min/1.73 sqM) Glucose 110 H (74-99) mg/dL Plasma Lactic Acid Jeromy 1.5 (0.7-2.0) mmol/L Calcium 8.5 (8.4-10.2) mg/dL Total Bilirubin 1.1 (0.2-1.3) mg/dL AST 24 (17-59) U/L ALT 18 (4-49) U/L Alkaline Phosphatase 50 (38-126) U/L Total Protein 5.5 L (6.3-8.2) g/dL Albumin 3.3 L (3.5-5.0) g/dL Influenza Type A RNA (Not Detectd) Influenza Type B (PCR) (Not Detectd) 10/03/19 10/03/19 Range/Units 21:50 22:50 WBC (3.8-10.6) k/uL RBC (4.30-5.90) m/uL Hgb (13.0-17.5) gm/dL Hct (39.0-53.0) % MCV (80.0-100.0) fL MCH (25.0-35.0) pg MCHC (31.0-37.0) g/dL RDW (11.5-15.5) % Plt Count (150-450) k/uL Neutrophils % % Lymphocytes % % Monocytes % % Eosinophils % % Basophils % % Neutrophils # (1.3-7.7) k/uL Lymphocytes # (1.0-4.8) k/uL Monocytes # (0-1.0) k/uL Eosinophils # (0-0.7) k/uL Basophils # (0-0.2) k/uL Hypochromasia Anisocytosis Macrocytosis PT 10.0 (9.0-12.0) sec INR 0.9 (<1.2) APTT 25.3 (22.0-30.0) sec Sodium (137-145) mmol/L Potassium (3.5-5.1) mmol/L Chloride (98-107) mmol/L Carbon Dioxide (22-30) mmol/L Anion Gap mmol/L BUN (9-20) mg/dL Creatinine (0.66-1.25) mg/dL Est GFR (CKD-EPI)AfAm (>60 ml/min/1.73 sqM) Est GFR (CKD-EPI)NonAf (>60 ml/min/1.73 sqM) Glucose (74-99) mg/dL Plasma Lactic Acid Jeromy (0.7-2.0) mmol/L Calcium (8.4-10.2) mg/dL Total Bilirubin (0.2-1.3) mg/dL AST (17-59) U/L ALT (4-49) U/L Alkaline Phosphatase (38-126) U/L Total Protein (6.3-8.2) g/dL Albumin (3.5-5.0) g/dL Influenza Type A RNA Not Detected (Not Detectd) Influenza Type B (PCR) Not Detected (Not Detectd) Disposition Clinical Impression: Sepsis, Fever, Dehydration, Multiple myeloma Disposition: ADMITTED IP TO THIS HOSP Condition: Stable Is patient prescribed a controlled substance at d/c from ED?: No Referrals: Elkin Pierson MD [Primary Care Provider] - 1-2 days Decision to Admit Reason: Admit from EC Decision Date: 10/04/19 Decision Time: 00:13
[2019-10-03 22:39] LABS: Anisocytosis Slight; Basophils # (A) 0.1 k/uL (0-0.2); Basophils % (A) 2 %; Eosinophils # (A) 0.1 k/uL (0-0.7); Eosinophils % (A) 2 %; HCT 36.5 % (39.0-53.0); Hypochromasia Slight; Lymphocytes # (A) 0.4 k/uL (1.0-4.8); Lymphocytes % (A) 8 %; MCH 31.8 pg (25.0-35.0); MCHC 32.8 g/dL (31.0-37.0); Macrocytosis Slight; Mean Platelet Volume 7.5; Monocytes # (A) 0.3 k/uL (0-1.0); Monocytes % (A) 6 %; Neutrophils # (A) 4.1 k/uL (1.3-7.7); Neutrophils % (A) 81 %; Platelet Count 276 k/uL (150-450); RBC 3.77 m/uL (4.30-5.90); RDW 16.7 % (11.5-15.5)
[2019-10-03 22:46] LABS: Albumin 3.3 g/dL (3.5-5.0); Calcium 8.5 mg/dL (8.4-10.2); Potassium 4.2 mmol/L (3.5-5.1); Total Bilirubin 1.1 mg/dL (0.2-1.3); Total Protein 5.5 g/dL (6.3-8.2)
[2019-10-03] MEDS ORDERED: APIXABAN 5 MG TAB PO STA (22:57)
[2019-10-03 22:58] LABS: INR 0.9 (<1.2)
[2019-10-03 22:59] LABS: Partial Thromboplastin Time 25.3 sec (22.0-30.0)
--- NOTE | 2019-10-03 23:00 | XR ---
EXAMINATION TYPE: XR chest 2V DATE OF EXAM: 10/03/2019 COMPARISON: 08/24/2019 HISTORY: Fever TECHNIQUE: 2 views FINDINGS: Heart is normal. Lungs are clear of infiltrate. Thoracic aorta is atheromatous. There is no pleural effusion. Bony thorax is intact. IMPRESSION: No definite active cardiopulmonary disease. There is clearing of the minimal atelectasis left lung base compared to last exam.
[2019-10-03] MEDS ORDERED: SODIUM CHLORIDE 0.9% 500 ML 500 ML IV ONE (23:43)
[2019-10-03] MEDS ORDERED: VANCOMYCIN IV PER PHARMACY 1 EACH MISC MISCELLANE PRN (23:43)
[2019-10-03] MEDS ORDERED: CEFEPIME 2 GM in SODIUM CHLORIDE 0.9% 100 ML IVPB STA (23:43)
[2019-10-03] MEDS ORDERED: VANCOMYCIN 1,500 MG in SODIUM CHLORIDE 0.9% 250 ML IVPB STA (23:44)
[2019-10-04] MEDS: SODIUM CHLORIDE 0.9% 1,000 ML IV SCH ×3 (00:06→22:38)
[2019-10-04] MEDS ORDERED: NALOXONE 0.4 MG/ML 1 ML VIAL IV PRN (00:09)
[2019-10-04] MEDS ORDERED: HYDROmorphone 0.5 MG/0.5 ML SYRINGE IVP PRN (00:09)
[2019-10-04] MEDS ORDERED: ACETAMINOPHEN TAB 325 MG TAB PO PRN (00:09)
[2019-10-04] MEDS ORDERED: SODIUM CHLORIDE 0.9% 500 ML 500 ML IV ONE ×2 (00:13→15:00)
[2019-10-04 00:28] LABS: Appearance,Urine Clear (Clear); Bilirubin,Urine Negative (Negative); Blood,Urine Negative (Negative); Color,Urine Light Yellow; Glucose,Urine (UA) Negative (Negative); Ketones,Urine Negative (Negative); Leukocyte Esterase,Urine Negative (Negative); Nitrite,Urine Negative (Negative); PH, Urine 6.5 (5.0-8.0); Protein,Urine Negative (Negative); Specific Gravity,Urine 1.006 (1.001-1.035); Urobilinogen,Urine <2.0 mg/dL (<2.0)
[2019-10-04 01:42] LABS: Glucose,Whole Blood 117 mg/dL (75-99)
[2019-10-04] MEDS: GABAPENTIN 300 MG CAP PO SCH ×3 (08:58→22:37)
[2019-10-04] MEDS: CEFEPIME 2 GM in SODIUM CHLORIDE 0.9% 100 ML IVPB SCH ×2 (08:59→15:56)
[2019-10-04] MEDS: ACYCLOVIR 200 MG CAP PO SCH ×2 (08:59→22:37)
[2019-10-04] MEDS ORDERED: GABAPENTIN 400 MG CAP PO SCH (09:00)
[2019-10-04] MEDS ORDERED: ONDANSETRON 4 MG TAB PO PRN (10:10)
[2019-10-04] MEDS: VANCOMYCIN 1,500 MG in SODIUM CHLORIDE 0.9% 250 ML IVPB SCH ×2 (10:21→22:38)
[2019-10-04] MEDS: APIXABAN 5 MG TAB PO SCH ×2 (10:21→22:37)
[2019-10-04] MEDS: ASPIRIN 81 MG PO SCH (10:22)
[2019-10-04] MEDS: CALCIUM CARBONATE 500 MG CHEWABLE PO SCH ×2 (10:22→22:38)
[2019-10-04] MEDS: POTASSIUM BICARBONATE/CIT AC 20 MEQ TABLET.EFF PO SCH (10:23)
[2019-10-04] MEDS: oxyCODONE-APAP 5-325MG 1 EACH TAB PO PRN ×3 (10:56→22:36)
[2019-10-04] MEDS ORDERED: VANCOMYCIN 1,500 MG in SODIUM CHLORIDE 0.9% 250 ML IVPB SCH (13:00)
--- NOTE | 2019-10-04 15:51 | P.CONS ---
History of Present Illness - Reason for Consult Consult date: 10/04/19 multiple myeloma Requesting physician: Zacarias Villarreal - Chief Complaint fever, cough - History of Present Illness Mr. Paul is a very pleasant 64-year-old male patient of Dr. Browning with a long history of multiple myeloma. He initially presented with pr ogressive back pain that started in August 2015. Workup ultimately revealed elevated calcium, protein, creatinine, decreased hemoglobin, IgG lambda monoclonal protein, M protein 6.8 g/dL normal kappa lambda ratio. He also had osteoporotic compression fractures. 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 Started RVD 01/11/16, completed 4 cycles, repeat bone marrow revealed minimal residual disease. Underwent autologous stem cell transplant 08/27/16. Started maintenance revlimid end of December 2016, withg doses held and reduced for pancytopenia over the years he was on. He started to have worsening back pain in January 2019, MRI of his lumbar spine 03/10/19 revealed progressing soft tissue mass at L2 causing compression of the thecal sac and L3 nerve root and new paraspinal soft tissue mass at L4-L5, M-protein was up to 2.2gm/dl, Ig level up to 3019mg/dl, free lambda level 148.9mg/L, ratio of 0.04, normal creatinine and calcium, repeat skeletal bone survey revealed no changes. 04/07/19 he started darzalex/pomalyst/decadron. April 2019 he ad disseminated zoster. Most recent myeloma labs 07/05/19, SPEP and immunofixation revealed IgG monoclonal protein, M-spike 0.04gm/dl, serum IgG 362mg/dl, serum free lambda 0.9 mg/dl. He was admitted early Aug 2019 for shortness of breath, chest pain, hypotension and mild tachycardia. CT of the chest was performed revealing pulmonary embolism, he continues on eliquis. Patient is currently admitted for fever, symptoms of upper respiratory tract infection. Patient states shortness of breath, cough, scant amount of thick, yellowish sputum, he had fever, greater than 102F at home, hypotensive on arri mikaela. He is in the ICU when seen. Patient feels much better than he did on admit. He denied ear pain, sore throat, sinus symptoms, pleuritic type chest pain, palpitations, nausea, vomiting, diarrhea or pain. Review of Systems 14 point ROS is negative except as stated in HPI Past Medical History Past Medical History: Cancer, Hyperlipidemia Additional Past Medical History / Comment(s): Hx. vertebral stress fx. shingles 2013, multiple myeloma-dx. 2015 finished chem jul 2016, stem cell transplant 09/03, wound rt heel- healed, neuropathy, chronic back, knee and lt hip pain,. Currently on oral chemo- 3 weeks on, 2 off. 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 Smoking Status: Former smoker Past Alcohol Use History: None Reported Additional Past Alcohol Use History / Comment(s): started smoking age 17 and quit age 27, smoked 1ppd Past Drug Use History: None Reported Additional Drug Use History / Comment(s): Pt states that he occasionally smokes marijuana to help with pain - Past Family History Father Family Medical History: Renal Disease Additional Family Medical History / Comment(s): aaa, Mother Family Medical History: No Reported History Additional Family Medical History / Comment(s): mom is healthy Medications and Allergies Home Medications Medication Instructions Recorded Confirmed Type oxyCODONE HCL [OxyIR] 5 mg PO QID PRN 02/05/17 10/03/19 History Dexamethasone 20 mg PO WE 04/15/19 10/03/19 History Famotidine [Pepcid] 20 mg PO DAILY PRN 04/15/19 10/03/19 History Gabapentin [Neurontin] 300 mg PO TID@0900,1830,2330 04/15/19 10/03/19 History Ondansetron HCl [Zofran] 4 mg PO Q4H PRN 04/15/19 10/03/19 History Acyclovir 400 mg PO BID 08/24/19 10/03/19 History Calcium Carbonate [Calcium] 600 mg PO BID 08/24/19 10/03/19 History Pomalyst 3mg 3 mg PO HS 08/24/19 10/03/19 History Potassium Bicarbonate/Cit AC 25 meq PO AC-LUNCH 08/24/19 10/03/19 History [Potassium 25 Meq Tablet Eff] Aspirin 81 mg PO DAILY #30 chewable 08/26/19 10/03/19 Rx Apixaban [Eliquis] 5 mg PO BID 10/03/19 10/03/19 History Nitroglycerin Sl Tabs [Nitrostat] 0.4 mg SUBLINGUAL Q5M PRN 10/03/19 10/03/19 History Allergies Allergy/AdvReac Type Severity Reaction Status Date / Time sulfamethoxazole Allergy Rash/Hives Verified 10/03/19 23:40 [From Bactrim] trimethoprim [From Bactrim] Allergy Rash/Hives Verified 10/03/19 23:40 Physical Exam Vitals: Vital Signs Temp Pulse Pulse Resp BP BP Pulse Ox 10/04/19 12:10 81 26 H 87/55 10/04/19 12:05 80 13 87/55 10/04/19 12:00 78 84 19 92/76 10/04/19 11:55 85 25 H 92/76 10/04/19 11:50 77 14 92/76 10/04/19 11:45 77 14 92/76 10/04/19 11:40 78 10 L 92/76 10/04/19 11:35 79 8 L 92/76 10/04/19 11:30 78 19 92/76 10/04/19 11:25 79 20 92/76 10/04/19 11:20 79 22 92/76 10/04/19 11:15 77 21 92/76 10/04/19 11:10 75 24 92/76 10/04/19 11:05 81 10 L 92/76 10/04/19 11:00 76 14 92/76 95 10/04/19 10:40 72 20 95 10/04/19 10:20 64 20 99 10/04/19 10:10 70 20 112/71 99 10/04/19 09:10 72 21 110/69 99 10/04/19 08:10 78 22 109/63 95 10/04/19 08:00 65 14 10/04/19 04:00 98.2 F 65 16 93/64 99 10/04/19 02:07 98 10/04/19 01:12 98.5 F 76 13 95/76 97 10/04/19 00:10 99.7 F H 87 17 108/68 97 10/03/19 23:40 80 22 98/62 99 10/03/19 23:33 81 10/03/19 23:25 75 10/03/19 23:10 82 14 86/60 99 10/03/19 23:00 82 17 84/62 100 10/03/19 21:29 102.1 F H 59 L 16 88/56 88 L Intake and Output 10/03/19 10/04/19 10/04/19 22:59 06:59 14:59 Intake Total 450 Output Total 450 Balance 0 Intake: IV 450 Sodium Chloride 0.9% 1, 200 000 ml @ 100 mls/hr IV . Q10H [facility] Rx#:[id number] Vancomycin 1,500 mg In 250 Sodium Chloride 0.9% 250 ml @ 125 mls/hr IVPB ONCE STA Rx#:[id number] Output: Urine 450 Other: Voiding Method Urinal Urinal # Voids 11 Weight 95.254 kg 96.1 kg - Constitutional General appearance: average body habitus, cooperative, no acute distress - EENT Eyes: anicteric sclerae, EOMI ENT: hearing grossly normal, normal oropharynx - Neck Neck: no lymphadenopathy - Respiratory Respiratory: bilateral: CTA - Cardiovascular Rhythm: regular Heart sounds: normal: S1, S2 Abnormal Heart Sounds: no systolic murmur, no diastolic murmur, no rub, no S3 Gallop, no S4 Gallop, no click, no other leg Peripheral Edema: bilateral: 2+, Pitting - Gastrointestinal General gastrointestinal: no absent bowel sounds, no decreased bowel sounds, no distended, no hepatomegaly, no hyperactive bowel sounds, normal bowel sounds, no organomegaly, no rigid, no scaphoid, soft, no splenomegaly, no tenderness, no umbilical hernia, no ventral hernia - Neurologic Neurologic: CNII-XII intact - Musculoskeletal Musculoskeletal: strength equal bilaterally - Psychiatric Psychiatric: A&O x's 3, appropriate affect, intact judgment & insight Results CBC & Chem 7: 10/03/19 21:50 10/03/19 21:50 Labs: Abnormal Lab Results - Last 24 Hours (Table) 10/03/19 10/03/19 10/04/19 Range/Units 21:50 21:50 01:40 RBC 3.77 L (4.30-5.90) m/uL Hgb 12.0 L (13.0-17.5) gm/dL Hct 36.5 L (39.0-53.0) % RDW 16.7 H (11.5-15.5) % Lymphocytes # 0.4 L (1.0-4.8) k/uL Sodium 131 L (137-145) mmol/L Glucose 110 H (74-99) mg/dL POC Glucose (mg/dL) 117 H (75-99) mg/dL Total Protein 5.5 L (6.3-8.2) g/dL Albumin 3.3 L (3.5-5.0) g/dL Chest x-ray: report reviewed Assessment and Plan (1) Fever Narrative/Plan: Flu negative. CXR no impression of pneumonia, UA is not suspicious. Symptoms most likely r/t bronchitis/upper resp viral infection. Pt is on antiviral and antibiotics. Pt has been on prophylactic bactrim for increased risk of PCP pneumonia. Making mention of this in case pt does not improve with treatment. Cultures pending Current Visit: Yes Status: Acute Priority: High Code(s): R50.9 - FEVER, UNSPECIFIED SNOMED Code(s): 869587023 (2) Multiple myeloma Narrative/Plan: Pt is on oral pomalyst and dex, he has completed part 2 of darzalex and will move forward with part 3 on discharge. Reviewed pt case with Dr. Browning, pt to continue on meds as prescribed Current Visit: Yes Status: Chronic Priority: Medium Code(s): C90.00 - MULTIPLE MYELOMA NOT HAVING ACHIEVED REMISSION SNOMED Code(s): 583272033
[2019-10-04] MEDS: LACTATED RINGERS 500 ML IV SCH ×5 (15:54→20:36)
[2019-10-04] MEDS: FAMOTIDINE 20 MG TAB PO SCH (15:56)
[2019-10-04] MEDS: POMALYST 3 MG PO SCH (22:36)
--- NOTE | 2019-10-05 00:07 | P.HPIM ---
History of Present Illness H&P Date: 10/04/19 Chief Complaint: Fever History of presenting complaint: This is a very pleasant 64-year-old patient of Dr. Pierson. Patient's chronic stable medical conditions include hyperlipidemia, multiple myeloma, gait dysfunction uses a walker, peripheral neuropathy, minimal coronary artery disease per cardiac catheterization 30%. A month ago was admitted with acute pulmonary embolism was sent home with rakeshannie. On this occasion patient presents with getting congested, but the wet cough bringing up some yellow mucousy phlegm. No fever. No diarrhea. No urinary symptoms. Given the history of multiple myeloma patient was empirically started on antibiotics in the ER. Admitted. Appetite had gone down. Feeling tired and rundown. at the bedside. Review of systems: GEN.: Fever EYES: None HEENT: None NECK: None RESPIRATORY: As above CARDIOVASCULAR: None GASTROINTESTINAL: None GENITOURINARY: None MUSCULOSKELETAL: None LYMPHATICS: None HEMATOLOGICAL: None PSYCHIATRY: None NEUROLOGICAL: None Past medical history: Multiple myeloma, hyperlipidemia, chronic gait dysfunction uses a walker, peripheral neuropathy, minimal coronary artery disease 30% disease, vertebral stress fracture patient had shingles in 2013. I will stem cell transplant in 2059 patient's was diagnosed with multiple myeloma in November 2015, pulmonary embolism August 2019 Social history: Used to work as a [employer] and served with the [employer] Sm[employer] k[employer] for 10 years and stopped at the age of 27. Did smoke marijuana in the remote past. Family history: renal disease, abdominal aortic aneurysm Physical examination: VITAL SIGNS: On and 2.1, 59, 16, 88/56, 88% room air GENERAL: Propped up in bed, tired EYES: Pupils equal. Conjunctiva normal. HEENT: External appearance of nose and ears normal, oral cavity grossly normal. NECK: JVD not raised; masses not palpable. HEART: First and second heart sounds are normal; no edema. LUNGS: Decreased breath sounds some mild wheezing ABDOMEN: Soft, nontender, liver spleen not palpable, no masses palpable. PSYCH: [Alert and oriented x3; mood and affect anxious l. Investigations reviewed in the clinical context: White count 5 hemoglobin 12 potassium 4.2 creatinine 1.09 UA negative. Influenza both a and B both negative EKG tracing personally reviewed by me-no sinus rhythm Chest x-ray film personally reviewed by me-interstitial pattern prominence and a normal vascular pattern Assessment: -Acute pneumonitis likely viral, given immunosuppression cannot rule out a secondary bacterial infection -Recent right pulmonary embolism August 2019,, on eliquis -Multiple myeloma -hyperlipidemia -chronic gait dysfunction uses a walker -peripheral neuropathy side effect of chemotherapy -Minimal coronary artery disease per cardiac catheterization 30% disease Plan: Patient started empirically on IV cefepime and vancomycin. Home medications resumed. Care was discussed with the patient and the . Questions were answered. Also also bronchodilators. Past Medical History Past Medical History: Cancer, Hyperlipidemia Additional Past Medical History / Comment(s): Hx. vertebral stress fx. shingles 2013, multiple myeloma-dx. 2015 finished chem jul 2016, stem cell transplant 09/03, wound rt heel- healed, neuropathy, chronic back, knee and lt hip pain,. Currently on oral chemo- 3 weeks on, 2 off. 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 Smoking Status: Former smoker Past Alcohol Use History: None Reported Additional Past Alcohol Use History / Comment(s): started smoking age 17 and quit age 27, smoked 1ppd Past Drug Use History: None Reported Additional Drug Use History / Comment(s): Pt states that he occasionally smokes marijuana to help with pain - Past Family History Father Family Medical History: Renal Disease Additional Family Medical History / Comment(s): aaa, Mother Family Medical History: No Reported History Additional Family Medical History / Comment(s): mom is healthy Medications and Allergies Home Medications Medication Instructions Recorded Confirmed Type oxyCODONE HCL [OxyIR] 5 mg PO QID PRN 02/05/17 10/03/19 History Dexamethasone 20 mg PO WE 04/15/19 10/03/19 History Famotidine [Pepcid] 20 mg PO DAILY PRN 04/15/19 10/03/19 History Gabapentin [Neurontin] 300 mg PO TID@0900,1830,2330 04/15/19 10/03/19 History Ondansetron HCl [Zofran] 4 mg PO Q4H PRN 04/15/19 10/03/19 History Acyclovir 400 mg PO BID 08/24/19 10/03/19 History Calcium Carbonate [Calcium] 600 mg PO BID 08/24/19 10/03/19 History Pomalyst 3mg 3 mg PO HS 08/24/19 10/03/19 History Potassium Bicarbonate/Cit AC 25 meq PO AC-LUNCH 08/24/19 10/03/19 History [Potassium 25 Meq Tablet Eff] Aspirin 81 mg PO DAILY #30 chewable 08/26/19 10/03/19 Rx Apixaban [Eliquis] 5 mg PO BID 10/03/19 10/03/19 History Nitroglycerin Sl Tabs [Nitrostat] 0.4 mg SUBLINGUAL Q5M PRN 10/03/19 10/03/19 History Allergies Allergy/AdvReac Type Severity Reaction Status Date / Time sulfamethoxazole Allergy Rash/Hives Verified 10/03/19 23:40 [From Bactrim] trimethoprim [From Bactrim] Allergy Rash/Hives Verified 10/03/19 23:40 Physical Exam Vitals: Vital Signs Temp Pulse Pulse Resp BP BP Pulse Ox 10/04/19 11:00 76 14 92/76 95 10/04/19 10:40 72 20 95 10/04/19 10:20 64 20 99 10/04/19 10:10 70 20 112/71 99 10/04/19 09:10 72 21 110/69 99 10/04/19 08:10 78 22 109/63 95 10/04/19 04:00 98.2 F 65 16 93/64 99 10/04/19 02:07 98 10/04/19 01:12 98.5 F 76 13 95/76 97 10/04/19 00:10 99.7 F H 87 17 108/68 97 10/03/19 23:40 80 22 98/62 99 10/03/19 23:33 81 10/03/19 23:25 75 10/03/19 23:10 82 14 86/60 99 10/03/19 23:00 82 17 84/62 100 10/03/19 21:29 102.1 F H 59 L 16 88/56 88 L Intake and Output 10/03/19 10/04/19 10/04/19 22:59 06:59 14:59 Intake Total 450 Output Total 450 Balance 0 Intake: IV 450 Sodium Chloride 0.9% 1, 200 000 ml @ 100 mls/hr IV . Q10H [facility] Rx#:[id number] Vancomycin 1,500 mg In 250 Sodium Chloride 0.9% 250 ml @ 125 mls/hr IVPB ONCE STA Rx#:[id number] Output: Urine 450 Other: Voiding Method Urinal # Voids 11 Weight 95.254 kg 96.1 kg Results CBC & Chem 7: 10/03/19 21:50 10/03/19 21:50 Labs: Abnormal Lab Results - Last 24 Hours (Table) 10/03/19 10/03/19 10/04/19 Range/Units 21:50 21:50 01:40 RBC 3.77 L (4.30-5.90) m/uL Hgb 12.0 L (13.0-17.5) gm/dL Hct 36.5 L (39.0-53.0) % RDW 16.7 H (11.5-15.5) % Lymphocytes # 0.4 L (1.0-4.8) k/uL Sodium 131 L (137-145) mmol/L Glucose 110 H (74-99) mg/dL POC Glucose (mg/dL) 117 H (75-99) mg/dL Total Protein 5.5 L (6.3-8.2) g/dL Albumin 3.3 L (3.5-5.0) g/dL Thrombosis Risk Factor Assmnt - Choose All That Apply Each Risk Factor Represents 2 Points: Age 61-74 years, Malignancy Each Risk Factor Represents 3 Points: History of DVT/PE Thrombosis Risk Factor Assessment Total Risk Factor Score: 7 Thrombosis Risk Factor Assessment Level: High Risk
[2019-10-05] MEDS: CEFEPIME 2 GM in SODIUM CHLORIDE 0.9% 100 ML IVPB SCH ×3 (01:41→16:44)
[2019-10-05 05:12] LABS: Anisocytosis Slight; Basophils % (A) 2 %; Eosinophils # (A) 0.2 k/uL (0-0.7); Eosinophils % (A) 7 %; HCT 29.4 % (39.0-53.0); Hypochromasia Moderate; Lymphocytes # (A) 0.2 k/uL (1.0-4.8); Lymphocytes % (A) 10 %; MCH 31.3 pg (25.0-35.0); MCHC 31.5 g/dL (31.0-37.0); MCV 99.4 fL (80.0-100.0); Macrocytosis Slight; Mean Platelet Volume 7.8; Monocytes # (A) 0.2 k/uL (0-1.0); Monocytes % (A) 10 %; Neutrophils # (A) 1.6 k/uL (1.3-7.7); Neutrophils % (A) 70 %; Platelet Count 217 k/uL (150-450); RBC 2.96 m/uL (4.30-5.90); RDW 16.9 % (11.5-15.5); WBC 2.2 k/uL (3.8-10.6)
[2019-10-05 05:22] LABS: African American GFR (CKD) >90 (>60 ml/min/1.73 sqM); Anion Gap 3 mmol/L; Blood Urea Nitrogen 11 mg/dL (9-20); Calcium 7.3 mg/dL (8.4-10.2); Carbon Dioxide 22 mmol/L (22-30); Chloride 109 mmol/L (98-107); Glucose 86 mg/dL (74-99); Non-African American GFR(CKD) >90 (>60 ml/min/1.73 sqM); Potassium 3.6 mmol/L (3.5-5.1); Sodium 134 mmol/L (137-145)
[2019-10-05 05:25] LABS: HGB 9.3 gm/dL (13.0-17.5)
[2019-10-05] MEDS: SODIUM CHLORIDE 0.9% 1,000 ML IV SCH ×2 (06:31→09:30)
[2019-10-05] MEDS ORDERED: Potassium Replacement Protocol 1 EACH MISC MISCELLANE PRN ×2 (06:54→07:08)
[2019-10-05] MEDS ORDERED: POTASSIUM CHLORIDE ER 20 MEQ TAB.ER PO SCH (07:00)
[2019-10-05] MEDS: IPRATROPIUM-ALBUTEROL 3 ML NEB INHALATION SCH ×4 (08:30→19:28)
[2019-10-05] MEDS ORDERED: DEXAMETHASONE 4 MG TAB PO SCH (09:00)
[2019-10-05] MEDS: VANCOMYCIN 1,500 MG in SODIUM CHLORIDE 0.9% 250 ML IVPB SCH ×2 (09:30→22:47)
[2019-10-05] MEDS: POTASSIUM BICARBONATE/CIT AC 20 MEQ TABLET.EFF NG-TUBE SCH ×2 (09:31→10:30)
[2019-10-05] MEDS: FAMOTIDINE 20 MG TAB PO SCH (09:31)
[2019-10-05] MEDS: GABAPENTIN 300 MG CAP PO SCH ×3 (09:31→22:47)
[2019-10-05] MEDS: APIXABAN 5 MG TAB PO SCH ×2 (09:31→21:32)
[2019-10-05] MEDS: ASPIRIN 81 MG PO SCH (09:31)
[2019-10-05] MEDS: ACYCLOVIR 200 MG CAP PO SCH ×2 (09:31→21:33)
[2019-10-05] MEDS: CALCIUM CARBONATE 500 MG CHEWABLE PO SCH ×2 (09:31→21:32)
[2019-10-05] MEDS: oxyCODONE-APAP 5-325MG 1 EACH TAB PO PRN ×3 (09:37→22:47)
[2019-10-05] MEDS: POTASSIUM BICARBONATE/CIT AC 20 MEQ TABLET.EFF PO SCH (15:19)
[2019-10-05] MEDS ORDERED: VANCOMYCIN TROUGH DUE 1 EACH MISC MISCELLANE ONE (21:00)
[2019-10-05] MEDS: POMALYST 3 MG PO SCH (22:47)
--- NOTE | 2019-10-05 22:55 | P.PN ---
Progress Note - Text Progress Note Date: 10/05/19 Chief Complaint: Fever History of presenting complaint: This is a very pleasant 64-year-old patient of Dr. Pierson. Patient's chronic stable medical conditions include hyperlipidemia, multiple myeloma, gait dysfunction uses a walker, peripheral neuropathy, minimal coronary artery disease per cardiac catheterization 30%. A month ago was admitted with acute pulmonary embolism was sent home with greg. On this occasion patient presents with getting congested, but the wet cough bringing up some yellow mucousy phlegm. No fever. No diarrhea. No urinary symptoms. Given the history of multiple myeloma patient was empirically started on antibiotics in the ER. Admitted. Appetite had gone down. Feeling tired and rundown. at the bedside. admitted with acute pneumonitis, could be viral with possible secondary bacterial infection though less likely. Today-feeling better. Less congested. Appetite is getting better. Fevers are down. Up to the bathroom. Progress review of systems Active Medications Acetaminophen (Tylenol Tab) 650 mg PO Q6HR PRN PRN Reason: Mild Pain or Fever > 100.5 Acyclovir (Zovirax) 400 mg PO BID [facility] Last Admin: 10/05/19 21:33 Dose: 400 mg Documented by: Albuterol/Ipratropium (Duoneb 0.5 Mg-3 Mg/3 Ml Soln) 3 ml INHALATION QID [facility] Last Admin: 10/05/19 19:28 Dose: 3 ml Documented by: Apixaban (Eliquis) 5 mg PO BID [facility] Last Admin: 10/05/19 21:32 Dose: 5 mg Documented by: Aspirin (Aspirin) 81 mg PO DAILY [facility] Last Admin: 10/05/19 09:31 Dose: 81 mg Documented by: Calcium Carbonate/Glycine (Tums) 500 mg PO BID [facility] Last Admin: 10/05/19 21:32 Dose: 500 mg Documented by: Dexamethasone (Hexadrol) 20 mg PO WE [facility] Last Admin: 10/05/19 09:31 Dose: 20 mg Documented by: Famotidine (Pepcid) 20 mg PO DAILY [facility] Last Admin: 10/05/19 09:31 Dose: 20 mg Documented by: Gabapentin (Neurontin) 300 mg PO TID [facility] Last Admin: 10/05/19 22:47 Dose: 300 mg Documented by: Hydromorphone HCl (Dilaudid) 0.5 mg IVP Q3HR PRN PRN Reason: Moderate Pain Last Admin: 10/04/19 02:37 Dose: 0.5 mg Documented by: Cefepime HCl 2 gm/ Sodium (Chloride) 100 mls @ 200 mls/hr IVPB Q8H [facility] Last Admin: 10/05/19 16:44 Dose: 200 mls/hr Documented by: Sodium Chloride (Saline 0.9%) 1,000 mls @ 100 mls/hr IV .Q10H [facility] Last Admin: 10/05/19 09:30 Dose: 100 mls/hr Documented by: Vancomycin HCl 1,500 mg/ (Sodium Chloride) 250 mls @ 125 mls/hr IVPB Q12H [facility] Last Admin: 10/05/19 22:47 Dose: 125 mls/hr Documented by: Miscellaneous Information (Potassium Per Protocol) 1 each MISCELLANE DAILY PRN; Protocol PRN Reason: Per Protocol Naloxone HCl (Narcan) 0.2 mg IV Q2M PRN PRN Reason: Opioid Reversal Pomalyst 3mg Capsule 3 mg PO 0 [facility] Stop: 10/16/19 22:31 Last Admin: 10/05/19 22:47 Dose: 3 mg Documented by: Ondansetron HCl (Zofran) 4 mg PO Q4H PRN PRN Reason: Nausea Oxycodone/Acetaminophen (Percocet 5-325) 1 each PO Q6HR PRN PRN Reason: Pain Last Admin: 10/05/19 22:47 Dose: 1 each Documented by: Potassium Bicarbonate (K-Lyte) 20 meq PO AC-LUNCH [facility] Last Admin: 10/05/19 15:19 Dose: Not Given Documented by: Physical examination: VITAL SIGNS: 97.9, 80, 20, 103/67, 95% room air GENERAL: Propped up in bed, appears better EYES: Pupils equal. Conjunctiva normal. HEENT: External appearance of nose and ears normal, oral cavity grossly normal. NECK: JVD not raised; masses not palpable. HEART: First and second heart sounds are normal; no edema. LUNGS: Decreased breath sounds some improvedwheezing ABDOMEN: Soft, nontender, liver spleen not palpable, no masses palpable. PSYCH: [Alert and oriented x3; mood and affect anxious l. Investigations reviewed in the clinical context: White count 2.2 hemoglobin 9.3 creatinine 0.84 pro calcitonin 0.12 blood cultures negative Previous testing White count 5 hemoglobin 12 potassium 4.2 creatinine 1.09 UA negative. Influenza both a and B both negative EKG tracing personally reviewed by me-no sinus rhythm Chest x-ray film personally reviewed by me-interstitial pattern prominence and a normal vascular pattern Assessment: -Acute pneumonitis likely viral, given immunosuppression cannot rule out a secondary bacterial infection, clinical improvement -Bicytopenia likely secondary to infection in the setting of multiple myeloma -Recent right pulmonary embolism August 2019,, on eliquis -Multiple myeloma -hyperlipidemia -chronic gait dysfunction uses a walker -peripheral neuropathy side effect of chemotherapy -Minimal coronary artery disease per cardiac catheterization 30% disease Plan: patient clinically looking better. Still some congestion. We'll add Claritin- D. Patient has been afebrile. Continue with other the day of IV antibiotic. Oral looking muchbetter.
[2019-10-06 00:01] VITALS: RESP 16
[2019-10-06] MEDS: CEFEPIME 2 GM in SODIUM CHLORIDE 0.9% 100 ML IVPB SCH ×2 (01:44→09:14)
[2019-10-06] MEDS: SODIUM CHLORIDE 0.9% 1,000 ML IV SCH ×2 (01:44→15:26)
[2019-10-06 05:27] LABS: Anisocytosis Slight; Basophils % (A) 0 %; Eosinophils % (A) 0 %; HCT 31.1 % (39.0-53.0); HGB 9.6 gm/dL (13.0-17.5); Hypochromasia Slight; Lymphocytes # (A) 0.3 k/uL (1.0-4.8); Lymphocytes % (A) 8 %; MCH 30.3 pg (25.0-35.0); MCHC 30.8 g/dL (31.0-37.0); MCV 98.5 fL (80.0-100.0); Macrocytosis Slight; Mean Platelet Volume 8.4; Monocytes # (A) 0.2 k/uL (0-1.0); Monocytes % (A) 4 %; Neutrophils # (A) 3.2 k/uL (1.3-7.7); Neutrophils % (A) 87 %; Platelet Count 203 k/uL (150-450); RBC 3.15 m/uL (4.30-5.90); RDW 16.7 % (11.5-15.5); WBC 3.7 k/uL (3.8-10.6)
[2019-10-06 05:43] LABS: African American GFR (CKD) >90 (>60 ml/min/1.73 sqM); Anion Gap 5 mmol/L; Blood Urea Nitrogen 10 mg/dL (9-20); Calcium 7.9 mg/dL (8.4-10.2); Carbon Dioxide 20 mmol/L (22-30); Chloride 112 mmol/L (98-107); Glucose 144 mg/dL (74-99); Non-African American GFR(CKD) >90 (>60 ml/min/1.73 sqM); Potassium 3.7 mmol/L (3.5-5.1); Sodium 137 mmol/L (137-145)
[2019-10-06] MEDS ORDERED: Potassium Replacement Protocol 1 EACH MISC MISCELLANE PRN (06:25)
[2019-10-06] MEDS ORDERED: POTASSIUM BICARBONATE/CIT AC 20 MEQ TABLET.EFF NG-TUBE SCH (07:00)
[2019-10-06] MEDS: IPRATROPIUM-ALBUTEROL 3 ML NEB INHALATION SCH ×3 (08:53→15:08)
[2019-10-06] MEDS: APIXABAN 5 MG TAB PO SCH (09:22)
[2019-10-06] MEDS: ACYCLOVIR 200 MG CAP PO SCH (09:22)
[2019-10-06] MEDS: GABAPENTIN 300 MG CAP PO SCH (09:22)
[2019-10-06] MEDS: CALCIUM CARBONATE 500 MG CHEWABLE PO SCH (09:22)
[2019-10-06] MEDS: ASPIRIN 81 MG PO SCH (09:22)
[2019-10-06] MEDS: FAMOTIDINE 20 MG TAB PO SCH (09:23)
[2019-10-06] MEDS: oxyCODONE-APAP 5-325MG 1 EACH TAB PO PRN (09:50)
[2019-10-06] MEDS: VANCOMYCIN 1,500 MG in SODIUM CHLORIDE 0.9% 250 ML IVPB SCH (11:45)
[2019-10-06] MEDS ORDERED: LORATADINE-PSEUDOEPH 5-120 MG 1 EACH TAB.ER.12H PO SCH (12:00)
[2019-10-06 13:03] VITALS: BP 112/68; TEMP 98.2
[2019-10-06 15:19] VITALS: PULSE 74
--- NOTE | 2019-10-09 23:22 | P.DS ---
Providers Date of admission: 10/04/19 00:09 Expected date of discharge: 10/06/19 Attending physician: Devon Ferro Consults: 10/04/19 00:10 Consult Physician Routine Consulting Provider: Shawn Browning Consult Reason/Comments: Multiple myeloma on chemotherapy febrile illness Do you want consulting provider notified?: Yes Primary care physician: Denton [facility] Course: Chief Complaint: Fever History of presenting complaint: This is a very pleasant 64-year-old patient of Dr. Pierson. Patient's chronic stable medical conditions include hyperlipidemia, multiple myeloma, gait dysfunction uses a walker, peripheral neuropathy, minimal coronary artery disease per cardiac catheterization 30%. A month ago was admitted with acute pulmonary embolism was sent home with greg. On this occasion patient presents with getting congested, but the wet cough bringing up some yellow mucousy phlegm. No fever. No diarrhea. No urinary symptoms. Given the history of multiple myeloma patient was empirically started on antibiotics in the ER. Admitted. Appetite had gone down. Feeling tired and rundown. at the bedside Hospital course: admitted with acute pneumonitis, could be viral with possible secondary bacterial infection though less likely.was empirically given IV cefepime, vancomycin, decongestants. Responded well. Today-feeling much better. Symptoms greatly improved. Eating well. Ambulatory Physical examination: VITAL SIGNS: 98.2, 90, 16, 122/68, 96% room air GENERAL: Propped up in bed, comfortable EYES: Pupils equal. Conjunctiva normal. HEENT: External appearance of nose and ears normal, oral cavity grossly normal. NECK: JVD not raised; masses not palpable. HEART: First and second heart sounds are normal; no edema. LUNGS: Decreased breath sounds , improved air entry ABDOMEN: Soft, nontender, liver spleen not palpable, no masses palpable. PSYCH: [Alert and oriented x3; mood and affect anxious l. Investigations reviewed in the clinical context: white count 3.7 hemoglobin 9.6 potassium 3.7 creatinine 0.7 blood cultures negative Previous testing White count 5 hemoglobin 12 potassium 4.2 creatinine 1.09 UA negative. Influenza both a and B both negative EKG tracing personally reviewed by me-no sinus rhythm Chest x-ray film personally reviewed by me-interstitial pattern prominence and a normal vascular pattern Assessment: -Acute pneumonitis likely viral, given immunosuppression cannot rule out a secondary bacterial infection, improved -Bicytopenia likely secondary to infection in the setting of multiple myeloma -Recent right pulmonary embolism August 2019,, on eliquis -Multiple myeloma -hyperlipidemia -chronic gait dysfunction uses a walker -peripheral neuropathy side effect of chemotherapy -Minimal coronary artery disease per cardiac catheterization 30% disease disposition: Home Patient Condition at Discharge: Stable Plan - Discharge Summary Discharge Rx Participant: No New Discharge Prescriptions: New Cefuroxime Axetil [Ceftin] 500 mg PO BID 3 Days #6 tab Loratadine-Pseudoeph 5-120 mg [Claritin-D 12 Hour] 1 each PO Q12HR #10 tab.er.12h Continue oxyCODONE HCL [OxyIR] 5 mg PO QID PRN PRN Reason: Pain Famotidine [Pepcid] 20 mg PO DAILY PRN PRN Reason: Heartburn Ondansetron HCl [Zofran] 4 mg PO Q4H PRN PRN Reason: Nausea Gabapentin [Neurontin] 300 mg PO TID@0900,1830,2330 Dexamethasone 20 mg PO WE Acyclovir 400 mg PO BID Calcium Carbonate [Calcium] 600 mg PO BID Pomalyst 3mg 3 mg PO HS Potassium Bicarbonate/Cit AC [Potassium 25 Meq Tablet Eff] 25 meq PO AC-LUNCH Aspirin 81 mg PO DAILY #30 chewable Apixaban [Eliquis] 5 mg PO BID Nitroglycerin Sl Tabs [Nitrostat] 0.4 mg SUBLINGUAL Q5M PRN PRN Reason: Chest Pain Discharge Medication List oxyCODONE HCL [OxyIR] 5 mg PO QID PRN 02/05/17 [History] Dexamethasone 20 mg PO WE 04/15/19 [History] Famotidine [Pepcid] 20 mg PO DAILY PRN 04/15/19 [History] Gabapentin [Neurontin] 300 mg PO TID@0900,1830,2330 04/15/19 [History] Ondansetron HCl [Zofran] 4 mg PO Q4H PRN 04/15/19 [History] Acyclovir 400 mg PO BID 08/24/19 [History] Calcium Carbonate [Calcium] 600 mg PO BID 08/24/19 [History] Pomalyst 3mg 3 mg PO HS 08/24/19 [History] Potassium Bicarbonate/Cit AC [Potassium 25 Meq Tablet Eff] 25 meq PO AC-LUNCH 08/24/19 [History] Aspirin 81 mg PO DAILY #30 chewable 08/26/19 [Rx] Apixaban [Eliquis] 5 mg PO BID 10/03/19 [History] Nitroglycerin Sl Tabs [Nitrostat] 0.4 mg SUBLINGUAL Q5M PRN 10/03/19 [History] Cefuroxime Axetil [Ceftin] 500 mg PO BID 3 Days #6 tab 10/06/19 [Rx] Loratadine-Pseudoeph 5-120 mg [Claritin-D 12 Hour] 1 each PO Q12HR #10 tab.er.12h 10/06/19 [Rx] Follow up Appointment(s)/Referral(s): Elkin Pierson MD [Primary Care Provider] - 10/31/19 2:40 pm Shawn Browning MD [STAFF PHYSICIAN] - 10/10/19 1:30 pm (This is for chemo. Dr. Browning said ok to continue on schedule) Ambulatory/Diagnostic Orders: Complete Blood Count w/diff [LAB.AMB] Time Frame: 10/10/19, Location: None Selected Discharge Disposition: HOME SELF-CARE
== END 2019-10-06 17:00 | disposition home or self-care (01) | DRG 194 ==
LOC: EC 21:20 → 3SCARD 10-04 00:09 → 2SICU 10-04 01:01 → 5NMEDONC 10-06 12:45
PROVIDERS: ADMIT Hospitalist; ATTEND Hospitalist
DX: J12.9 Viral pneumonia, unspecified (principal); Z94.84 Stem cells transplant status; C90.00 Multiple myeloma not having achieved remission; G62.0 Drug-induced polyneuropathy; T45.1X5A Adverse effect of antineoplastic and immunosuppressive drugs, initial encounter; E78.5 Hyperlipidemia, unspecified; R26.9 Unspecified abnormalities of gait and mobility; I25.10 Atherosclerotic heart disease of native coronary artery without angina pectoris; E86.0 Dehydration; Z79.01 Long term (current) use of anticoagulants; Z79.52 Long term (current) use of systemic steroids; Z79.82 Long term (current) use of aspirin; Z79.899 Other long term (current) drug therapy; Z87.310 Personal history of (healed) osteoporosis fracture; Z86.19 Personal history of other infectious and parasitic diseases; Z87.891 Personal history of nicotine dependence; Z86.711 Personal history of pulmonary embolism; Z88.2 Allergy status to sulfonamides; Z82.49 Family history of ischemic heart disease and other diseases of the circulatory system; Z84.1 Family history of disorders of kidney and ureter
CPT/HCPCS: 36415; 71046; 80048; 80053; 80202; 81003; 83605; 84145; 85025; 85610; 85730; 87040; 87086; 87502; 93005; 94640; 96361; 96365; 99285

== ENCOUNTER 2020-01-10 05:55 | Inpatient (IN) | payer MEDICARE, BC ==
[2020-01-10 06:22] LABS: Glucose,Whole Blood 132 mg/dL (75-99)
[2020-01-10] MEDS ORDERED: ACETAMINOPHEN TAB 500 MG TAB PO STA (06:24)
[2020-01-10] MEDS ORDERED: SODIUM CHLORIDE 0.9% 1,000 ML IV STA (06:24)
--- NOTE | 2020-01-10 06:29 | ED ---
Fever HPI <Ganga Wong - Last Filed: 01/10/20 08:55> - General Source: patient, family, RN notes reviewed Mode of arrival: ambulatory Limitations: no limitations <Rj Dickinson - Last Filed: 01/10/20 09:04> - General Chief Complaint: Fever Stated Complaint: fever Time Seen by Provider: 01/10/20 06:04 - History of Present Illness Initial Comments: This a 64-year-old male presents emergency Department chief complaint of nausea vomiting diarrhea fever. Patient states symptoms started around 2 AM this morning. Patient states that he feels slightly better at this time states he felt very miserable earlier. He states that he had extensive diarrhea and vomiting. Patient does complain of mild diffuse abdominal discomfort. Denies any sick contacts. Patient does admit that he has multiple myeloma does take chemotherapy infusions a daily immunologic's. Patient denies any current chest pain, URI symptoms including cough, sore throat, ear pain, headache or dizziness. He has no dysuria no hematuria. (Rj Dickinson) - Related Data Home Medications Medication Instructions Recorded Confirmed oxyCODONE HCL [OxyIR] 5 mg PO QID PRN 02/05/17 01/10/20 Dexamethasone 20 mg PO WE 04/15/19 01/10/20 Famotidine [Pepcid] 20 mg PO DAILY PRN 04/15/19 01/10/20 Gabapentin [Neurontin] 300 mg PO TID@0900,1830,2330 04/15/19 01/10/20 Acyclovir 400 mg PO BID 08/24/19 01/10/20 Pomalyst 3mg 3 mg PO HS 08/24/19 01/10/20 Apixaban [Eliquis] 5 mg PO BID 10/03/19 01/10/20 Nitroglycerin Sl Tabs [Nitrostat] 0.4 mg SUBLINGUAL Q5M PRN 10/03/19 01/10/20 Calcium Carbonate/Vitamin D3 2 cap PO BID 01/10/20 01/10/20 [Calcium 600-Vit D3 800 Caplet] Potassium Chloride ER [K-Dur 20] 20 meq PO DAILY 01/10/20 01/10/20 Previous Rx's Medication Instructions Recorded Aspirin 81 mg PO DAILY #30 chewable 08/26/19 Allergies Allergy/AdvReac Type Severity Reaction Status Date / Time sulfamethoxazole Allergy Rash/Hives Verified 01/10/20 08:48 [From Bactrim] trimethoprim [From Bactrim] Allergy Rash/Hives Verified 01/10/20 08:48 Review of Systems ROS Other: All systems not noted in ROS Statement are negative. <Ganga Wong - Last Filed: 01/10/20 08:55> ROS Other: All systems not noted in ROS Statement are negative. <Rj Dickinson - Last Filed: 01/10/20 09:04> ROS Statement: Those systems with pertinent positive or pertinent negative responses have been documented in the HPI. Past Medical History Past Medical History: Cancer, Hyperlipidemia Additional Past Medical History / Comment(s): Hx. vertebral stress fx. shingles 2013, multiple myeloma-dx. 2015 finished chem jul 2016, stem cell transplant 09/03, wound rt heel- healed, neuropathy, chronic back, knee and lt h ip pain,. Currently on oral chemo- 3 weeks on, 2 off. History of Any Multi-Drug Resistant Organisms: None Reported Past Surgical History: Orthopedic Surgery Additional Past Surgical History / Comment(s): excision of uvular lesion(benign) 2009, colonoscopy, dave knee arthroscopy, rt rotator cuff sx, moles removed from back(benign)bone marrow aspiration/bx,stem cell transplant 2015, Past Anesthesia/Blood Transfusion Reactions: No Reported Reaction Past Psychological History: No Psychological Hx Reported Smoking Status: Former smoker Past Alcohol Use History: None Reported Past Drug Use History: None Reported - Past Family History Father Family Medical History: Renal Disease Additional Family Medical History / Comment(s): aaa, Mother Family Medical History: No Reported History Additional Family Medical History / Comment(s): mom is healthy <Rj Dickinson - Last Filed: 01/10/20 09:04> General Exam Limitations: no limitations General appearance: alert, in no apparent distress Head exam: Present: atraumatic, normocephalic, normal inspection Eye exam: Present: normal appearance, PERRL, EOMI. Absent: scleral icterus, conjunctival injection, periorbital swelling ENT exam: Present: normal exam, normal oropharynx, mucous membranes moist, TM's normal bilaterally Neck exam: Present: normal inspection, full ROM. Absent: tenderness, meningismus, lymphadenopathy Respiratory exam: Present: normal lung sounds bilaterally. Absent: respiratory distress, wheezes, rales, rhonchi, stridor Cardiovascular Exam: Present: normal rhythm, tachycardia, normal heart sounds. Absent: systolic murmur, diastolic murmur, rubs, gallop, clicks GI/Abdominal exam: Present: soft, tenderness, normal bowel sounds. Absent: distended, guarding, rebound, rigid Back exam: Absent: CVA tenderness (R), CVA tenderness (L) Neurological exam: Present: alert, oriented X3 Skin exam: Present: warm, dry, intact, normal color. Absent: rash <Rj Dickinson - Last Filed: 01/10/20 09:04> Course <Ganga Wong - Last Filed: 01/10/20 08:55> Vital Signs 01/10/20 01/10/20 01/10/20 05:59 06:14 07:20 Temperature 103 F H Pulse Rate 104 H 89 Respiratory 20 22 18 Rate Blood Pressure 117/80 102/56 O2 Sat by Pulse 96 95 Oximetry 01/10/20 08:26 Temperature 101.2 F H Pulse Rate Respiratory Rate Blood Pressure O2 Sat by Pulse Oximetry - Reevaluation(s) Reevaluation #1: 01/10/20 08:55 Patient reevaluated and reexamined by myself, Dr. Wong. Patient resting comfortably in bed. Abdomen soft with mild tenderness on the right side. Patient states he is feeling much better at this time. Onset of symptoms was 2 AM. Patient had fever nausea vomiting diarrhea. Patient has history of multiple myeloma on chemotherapy. Case discussed in detail with Dr. Mcgowan who recommends admission and will consult. He recommends flu swab and treatment with cefepime. He also requests clear liquids only and cultures. Case also discussed with Dr. Ferro, who will admit covering for Dr. Pierson. He also requests infectious disease consult. (Ganga Wong) Procedures - Sepsis Sepsis Focused Exam #1 Time Sepsis Criteria Met: 08:45 Sepsis Focused Exam Date: 01/10/20 Sepsis Focused Exam Time: 09:10 Sepsis Focused Exam Complete: Yes Vital Signs & RN Notes Reviewed: Yes Capillary Refill: < 2 Seconds: Fingers, Toes Peripheral Pulses: Normal: Radial (R), Radial (L), Posterior Tibialis (R), Posterior Tibialis (L), Dorsalis Pedis (R), Dorsalis Pedis (L) Skin Color: Normal for Patient Respiratory Exam: normal lung sounds Cardiovascular Exam: regular rate <Rj Dickinson - Last Filed: 01/10/20 09:04> Medical Decision Making - Lab Data Result diagrams: 01/10/20 06:19 01/10/20 06:19 <WongGanga - Last Filed: 01/10/20 08:55> - Lab Data Result diagrams: 01/10/20 06:19 01/10/20 06:19 - EKG Data -: EKG Interpreted by Me <Rj Dickinson - Last Filed: 01/10/20 09:04> - Medical Decision Making Patient was found have neutropenic fever, associated nausea vomiting diarrhea. Patient is improved at this time. Patient's case discussed with Dr. Ferro, Dr. erazo. Patient will be admitted with IV antiemetics and IV fluids and further evaluation. (Rj Dickinson) - Lab Data Lab Results 01/10/20 01/10/20 01/10/20 Range/Units 06:18 06:19 06:19 WBC 1.5 L (3.8-10.6) k/uL RBC 4.08 L (4.30-5.90) m/uL Hgb 12.4 L (13.0-17.5) gm/dL Hct 38.3 L (39.0-53.0) % MCV 93.8 (80.0-100.0) fL MCH 30.4 (25.0-35.0) pg MCHC 32.4 (31.0-37.0) g/dL RDW 17.5 H (11.5-15.5) % Plt Count 184 (150-450) k/uL Neutrophils % 52 % Lymphocytes % 19 % Monocytes % 16 % Eosinophils % 9 % Basophils % 0 % Neutrophils # 0.8 L (1.3-7.7) k/uL Lymphocytes # 0.3 L (1.0-4.8) k/uL Monocytes # 0.3 (0-1.0) k/uL Eosinophils # 0.1 (0-0.7) k/uL Basophils # 0.0 (0-0.2) k/uL Manual Slide Review Performed Poikilocytosis (manual Present Anisocytosis Slight Sodium 132 L (137-145) mmol/L Potassium 3.5 (3.5-5.1) mmol/L Chloride 100 (98-107) mmol/L Carbon Dioxide 23 (22-30) mmol/L Anion Gap 9 mmol/L BUN 17 (9-20) mg/dL Creatinine 0.77 (0.66-1.25) mg/dL Est GFR (CKD-EPI)AfAm >90 (>60 ml/min/1.73 sqM) Est GFR (CKD-EPI)NonAf >90 (>60 ml/min/1.73 sqM) Glucose 122 H (74-99) mg/dL POC Glucose (mg/dL) 132 H (75-99) mg/dL POC Glu Financial Intern ID Vazquez, Dia Plasma Lactic Acid Jeromy (0.7-2.0) mmol/L Calcium 8.4 (8.4-10.2) mg/dL Total Bilirubin 0.8 (0.2-1.3) mg/dL AST 27 (17-59) U/L ALT 25 (4-49) U/L Alkaline Phosphatase 51 (38-126) U/L Total Protein 5.5 L (6.3-8.2) g/dL Albumin 3.3 L (3.5-5.0) g/dL Lipase 105 (23-300) U/L Urine Color Urine Appearance (Clear) Urine pH (5.0-8.0) Ur Specific [place] (1.001-1.035) Urine Protein (Negative) Urine Glucose (UA) (Negative) Urine Ketones (Negative) Urine Blood (Negative) Urine Nitrite (Negative) Urine Bilirubin (Negative) Urine Urobilinogen (<2.0) mg/dL Ur Leukocyte Esterase (Negative) 01/10/20 01/10/20 Range/Units 06:19 08:16 WBC (3.8-10.6) k/uL RBC (4.30-5.90) m/uL Hgb (13.0-17.5) gm/dL Hct (39.0-53.0) % MCV (80.0-100.0) fL MCH (25.0-35.0) pg MCHC (31.0-37.0) g/dL RDW (11.5-15.5) % Plt Count (150-450) k/uL Neutrophils % % Lymphocytes % % Monocytes % % Eosinophils % % Basophils % % Neutrophils # (1.3-7.7) k/uL Lymphocytes # (1.0-4.8) k/uL Monocytes # (0-1.0) k/uL Eosinophils # (0-0.7) k/uL Basophils # (0-0.2) k/uL Manual Slide Review Poikilocytosis (manual Anisocytosis Sodium (137-145) mmol/L Potassium (3.5-5.1) mmol/L Chloride (98-107) mmol/L Carbon Dioxide (22-30) mmol/L Anion Gap mmol/L BUN (9-20) mg/dL Creatinine (0.66-1.25) mg/dL Est GFR (CKD-EPI)AfAm (>60 ml/min/1.73 sqM) Est GFR (CKD-EPI)NonAf (>60 ml/min/1.73 sqM) Glucose (74-99) mg/dL POC Glucose (mg/dL) (75-99) mg/dL POC Glu Financial Intern ID Plasma Lactic Acid Jeromy 4.2 H* (0.7-2.0) mmol/L Calcium (8.4-10.2) mg/dL Total Bilirubin (0.2-1.3) mg/dL AST (17-59) U/L ALT (4-49) U/L Alkaline Phosphatase (38-126) U/L Total Protein (6.3-8.2) g/dL Albumin (3.5-5.0) g/dL Lipase (23-300) U/L Urine Color Light Yellow Urine Appearance Clear (Clear) Urine pH 8.0 (5.0-8.0) Ur Specific [place] 1.027 (1.001-1.035) Urine Protein Negative (Negative) Urine Glucose (UA) Negative (Negative) Urine Ketones Negative (Negative) Urine Blood Negative (Negative) Urine Nitrite Negative (Negative) Urine Bilirubin Negative (Negative) Urine Urobilinogen <2.0 (<2.0) mg/dL Ur Leukocyte Esterase Negative (Negative) - EKG Data EKG Comments: EKG performed at 6:10 normal sinus rhythm rate of 98 [place] 150 QRS 90 QT/QTC 346/441 (Rj Dickinson) Critical Care Time Critical Care Time: Yes Total Critical Care Time: 35 <Rj Dickinson - Last Filed: 01/10/20 09:04> Critical Care Time: Total of 35 minutes of critical care time were used to initially evaluated the patient, reviewed past medical history, according of labs and imaging. Patient's found to have neutropenic fever with a leukopenia 1.5, neutrophil 0.8. Patient's lactic is elevated at 4.2. Patient was given fluid bolus based on his ideal body weight of 75 kg. Patient's case discussed with oncology Dr. caldwell who recommended influenza swab, IV fluids, cefepime, clear liquid diet. Patient will be admitted to Dr. Tate case discussed with Dr. Ferro patient will have consult to infectious disease. (Rj Dickinson) Disposition <Gagna Wong - Last Filed: 01/10/20 08:55> Time of Disposition: 09:04 <Rj Dickinson - Last Filed: 01/10/20 09:04> Clinical Impression: Neutropenic fever, Nausea vomiting and diarrhea, Sepsis, Multiple myeloma Disposition: ADMITTED IP TO THIS HOSP Condition: Serious Referrals: Elkin Pierson MD [Primary Care Provider] - 1-2 days
--- NOTE | 2020-01-10 06:44 | XR ---
EXAMINATION TYPE: XR chest 2V DATE OF EXAM: 01/10/2020 COMPARISON: Chest x-ray October 03, 2019. HISTORY: Fever. TECHNIQUE: Frontal and lateral views of the chest are obtained. FINDINGS: There are low lung volumes with elevated left hemidiaphragm. There is no suspicious new fo eliecer air space opacity, pleural effusion, or pneumothorax seen. The cardiac silhouette size is stable and upper limits of normal. The osseous structures are intact. IMPRESSION: Low lung volumes without definitive new acute pulmonary process.
[2020-01-10 06:45] LABS: African American GFR (CKD) >90 (>60 ml/min/1.73 sqM); Albumin 3.3 g/dL (3.5-5.0); Anion Gap 9 mmol/L; Blood Urea Nitrogen 17 mg/dL (9-20); Carbon Dioxide 23 mmol/L (22-30); Chloride 100 mmol/L (98-107); Glucose 122 mg/dL (74-99); Non-African American GFR(CKD) >90 (>60 ml/min/1.73 sqM); Potassium 3.5 mmol/L (3.5-5.1); Sodium 132 mmol/L (137-145); Total Protein 5.5 g/dL (6.3-8.2)
[2020-01-10 06:46] LABS: AST 27 U/L (17-59); Alkaline Phosphatase 51 U/L (38-126); Calcium 8.4 mg/dL (8.4-10.2); Total Bilirubin 0.8 mg/dL (0.2-1.3)
[2020-01-10 06:53] LABS: ALT 25 U/L (4-49)
[2020-01-10 06:58] LABS: Anisocytosis Slight; Basophils % (A) 0 %; Eosinophils # (A) 0.1 k/uL (0-0.7); Eosinophils % (A) 9 %; HCT 38.3 % (39.0-53.0); HGB 12.4 gm/dL (13.0-17.5); Lymphocytes # (A) 0.3 k/uL (1.0-4.8); Lymphocytes % (A) 19 %; MCH 30.4 pg (25.0-35.0); MCHC 32.4 g/dL (31.0-37.0); MCV 93.8 fL (80.0-100.0); Mean Platelet Volume 7.9; Monocytes # (A) 0.3 k/uL (0-1.0); Monocytes % (A) 16 %; Neutrophils # (A) 0.8 k/uL (1.3-7.7); Neutrophils % (A) 52 %; Platelet Count 184 k/uL (150-450); RBC 4.08 m/uL (4.30-5.90); RDW 17.5 % (11.5-15.5); WBC 1.5 k/uL (3.8-10.6)
--- NOTE | 2020-01-10 07:42 | CT ---
EXAMINATION TYPE: CT abdomen pelvis w con DATE OF EXAM: 01/10/2020 COMPARISON: None. HISTORY: Fever, diarrhea, and vomiting. History of multiple myeloma completed chemotherapy last week. CT DLP: 1648.1 mGycm, Automated Exposure Control for Dose Reduction was Utilized. CONTRAST: CT scan of the abdomen and pelvis is performed without oral but with IV Contrast, patient injected wi th 100 mL of Isovue 300. FINDINGS: LUNG BASES: No significant abnormality is appreciated. LIVER/GB: Tiny dependent calcified gallstones axial image 21. PANCREAS: No significant abnormality is seen. SPLEEN: No significant abnormality is seen. ADRENALS: No significant abnormality is seen. KIDNEYS: No significant abnormality is seen. BOWEL: Suboptimal evaluation of bowel without enteric contrast. No suspicious small or large bowel di latation. Mild wall thickening is present in the colon from the distal left colon through the rectum. Findings could reflect products of poor distention versus a mild uncomplicated acute colitis, correl ate clinically. PROSTATE/SEMINAL VESICLES:. Scattered pelvic phleboliths. Prostate gland noted nonenlarged. LYMPH NODES: No greater than 1cm abdominal or pelvic lymph nodes are appreciated. OSSEOUS STRUCTURES: Osseous structures are demineralized. There is sclerotic mild to moderate chronic compression L5 level. Prominent Schmorl node inferior L2 level. Mild to moderate chronic compression fracture L1 level. Severe chronic compression T11 level. Areas of lucency throughout the osseous str uctures could reflect myeloma deposits involving the pelvis and visualized spine. Correlate clinicall y. OTHER: Moderate calcified plaque infrarenal abdominal aorta. Moderate sized fat-containing left ingui nal hernia. IMPRESSION: 1. Suboptimal study. No bowel obstruction. Perhaps mild uncomplicated acute distal colitis versus pro duct of poor distention. Correlate clinically.
[2020-01-10] MEDS ORDERED: SODIUM CHLORIDE 0.9% 500 ML 500 ML IV ONE (08:00)
[2020-01-10 08:07] LABS: Poikilocytosis (M) Present
[2020-01-10 08:23] LABS: Appearance,Urine Clear (Clear); Bilirubin,Urine Negative (Negative); Blood,Urine Negative (Negative); Color,Urine Light Yellow; Glucose,Urine (UA) Negative (Negative); Ketones,Urine Negative (Negative); Leukocyte Esterase,Urine Negative (Negative); Nitrite,Urine Negative (Negative); Protein,Urine Negative (Negative); Specific Gravity,Urine 1.027 (1.001-1.035); Urobilinogen,Urine <2.0 mg/dL (<2.0)
[2020-01-10] MEDS ORDERED: CEFEPIME 2 GM in SODIUM CHLORIDE 0.9% 100 ML IVPB STA (08:48)
[2020-01-10] MEDS ORDERED: ACETAMINOPHEN TAB 325 MG TAB PO PRN (08:51)
[2020-01-10] MEDS ORDERED: IBUPROFEN 400 MG TAB PO PRN (08:51)
[2020-01-10] MEDS ORDERED: NALOXONE 0.4 MG/ML 1 ML VIAL IV PRN (08:51)
[2020-01-10] MEDS ORDERED: ONDANSETRON 4 MG/2 ML VIAL IVP PRN (08:51)
[2020-01-10] MEDS: SODIUM CHLORIDE 0.9% 1,000 ML IV SCH ×2 (09:44→23:40)
[2020-01-10] MEDS ORDERED: FAMOTIDINE 20 MG TAB PO PRN (11:20)
[2020-01-10] MEDS ORDERED: NITROGLYCERIN SL TABS 0.4 MG TAB SUBLINGUAL PRN (11:20)
[2020-01-10] MEDS: GABAPENTIN 300 MG CAP PO SCH ×3 (12:50→21:13)
[2020-01-10] MEDS: ACYCLOVIR 200 MG CAP PO SCH ×2 (12:50→21:13)
[2020-01-10] MEDS: APIXABAN 5 MG TAB PO SCH ×2 (12:51→21:13)
[2020-01-10] MEDS: ASPIRIN 81 MG PO SCH (12:51)
--- NOTE | 2020-01-10 13:31 | P.CONS ---
History of Present Illness - Reason for Consult Consult date: 01/10/20 fever Requesting physician: Rj Dickinson - Chief Complaint fever - History of Present Illness This is a very nice patient who presented with progressive back pain,started around ,he was evaluated by orthopedic,had XR of the spine which revealed compression fracture. On 11/28/2015,limited bone scan revealed osteoporotic compression fracture at L1-L2. On 12/17/2015,CMP revealed significantly elevated total protein (11.4dm/dl),calcium level 10.2,creatinine 1.18,CBC revealed hemoglobin of 9.4gm/dl,PSA 0.5,SPEP and immunofixation revealed IgG lambda monoclonal protein,M-protein of 6.8gm/d,serum lambda level 4.14mg/dl,kappa/lambda ratio 0.04. On 12/27/2015,CT scan of lumbar spine revealed demineralization and compression fracture at L1. On 12/29/2015,MRI of thoracic and lumbar spine multiple lytic lesions,compression at L1,no soft tissue component or mass effects (It was reviewed by myself and Dr Jackson in radiology). He was admitted to [facility] on 12/27/2015,for back pain and discharged with supportive brace,he also received a dose of pamidronate. On 01/01/2016,SPEP and immunofixation revealed IgG Lambda M-protein of 4.8gm/dl,IgG 7191mg/dl,CMP revealed normal calcium and creatinine,normal Dickey/lambda ratio,B2 microglobin level 2.8,serum albumin 2.6. 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 He started RVD on 01/11/2016. On 01/31/2016,M-spike was 0.88gm/dl,IgG level 1410 mg/dl.Normal calcium and creatinine. On 02/20/2016,M-spike was down to 0.4,IgG 692mg/dl,normal calcium and creatinine. He completed 4 cycles on 03/28/2016. Repeat bone marrow biopsy on 05/04/2016 revealed no evidence of myeloma morphologically,however,flowcytometry revealed minimal residual disease. He was in process of proceeding with autologous stem cell transplant,however,he developed numbness in his feet,then significant weakness in both legs,right worse than left,he was admitted to [facility] on 04/20/2016 due to hyponatremia,which resolved. Repeat MRI of thoracic and lumbar spine on 04/28/2016 revealed new compression fracture at T11,he was seen by Dr Oneil on 04/29/2016 and physical therapy was recommended. On 04/28/2016,M-protein was 0.3gm/dl,sodium was 137. On 06/03/2016,M-protein was 0.27gm/dl. On 06/09/2016,EGD/Colonoscopy revealed mild gastritis. Subsequently,he underwent autologous stem cell transplant on 08/27/2016. On 11/04/2016,M-protein was 0.2gm/dl On 01/02/2017,SPEP and immunofixation revealed no M-protein,normal kappa/lambda ratio and normal CBC,CMP. On 01/14/2017,repeat MRI of spine revealed old compression fracture and arthrtic changes. He started maintenance revlimid 5 mg/day by the end of . He started to have worsening back pain in January/2019,he was referred to have MRI of his lumbar spine,which was done on 03/10/2019 which revealed progressing soft tissue mass at L2 causing compression of the thecal sac and L3 nerve root and new paraspinal soft tissue mass at L4-L5 for which he had palliative XRT On 03/08/2019,M-protein was up to 2.2gm/dl,Ig level up to 3019mg/dl,free lambda level 148.9mg/L,ratio of 0.04,normal creatinine and calcium,repeat skeletal bone survey revealed no changes. On 04/07/2019,he started darzalex/pomalyst/decadron However,he was admitted to hospital in early April/2019,for disseminated zoster On 10/25/2019,SPEP and immunofixation revealed 2 small spike,M-protein was 0.09 gm/dl,serum IgG 282mg/dl.serum free lambda 0.65,kappa/lambda ratio 0.04 He continues to have back pain but controlled and stable,ambulating well,he is tired,has mild stable peripheral neuropathy,active and gained weight,had swelli ng in his feet,no diarrhea or rash ,he is tolerating eliquis well. He has now presented to emergency with s/s fever, nausea, vomiting, and diarrhea. Fever. His last Darzalex was 01/02/20. He is also oon dex 40mg weekly and pomalyst. With the current picture of febrile neutropenia, hold pomalyst at this time. This is his week off. He states in the middle of the night he felt nauseated and had simultaneous vomiting and diarrhea. He has not had any episodes since early this morning and feeling much better today. 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, gait dysfunction-uses walker, bilateral pedal/ankle edema, PE 08/2019, chronic low back pain, past vertebral fractures, minimal CAD, shingelles twice, past R heel wound, elevated lipids in the past, History of Any Multi-Drug Resistant Organisms: None Reported Past Surgical History: Heart Catheterization, Orthopedic Surgery Additional Past Surgical History / Comment(s): excision of uvular lesion(benign) 2009, colonoscopy, dave knee arthroscopy, rt rotator cuff sx, moles removed from back(benign), bone marrow aspiration/bx, stem cell transplant 2015, Past Anesthesia/Blood Transfusion Reactions: No Reported Reaction Smoking Status: Former smoker - Past Family History Father Family Medical History: Renal Disease, Vascular Disorder Additional Family Medical History / Comment(s): aaa. Father is . Mother Family Medical History: No Reported History Additional Family Medical History / Comment(s): mom is healthy Medications and Allergies Home Medications Medication Instructions Recorded Confirmed Type oxyCODONE HCL [OxyIR] 5 mg PO QID PRN 02/05/17 01/10/20 History Dexamethasone 20 mg PO WE 04/15/19 01/10/20 History Famotidine [Pepcid] 20 mg PO DAILY PRN 04/15/19 01/10/20 History Gabapentin [Neurontin] 300 mg PO TID@0900,1830,2330 04/15/19 01/10/20 History Acyclovir 400 mg PO BID 08/24/19 01/10/20 History Pomalyst 3mg 3 mg PO HS 08/24/19 01/10/20 History Aspirin 81 mg PO DAILY #30 chewable 08/26/19 01/10/20 Rx Apixaban [Eliquis] 5 mg PO BID 10/03/19 01/10/20 History Nitroglycerin Sl Tabs [Nitrostat] 0.4 mg SUBLINGUAL Q5M PRN 10/03/19 01/10/20 History Calcium Carbonate/Vitamin D3 2 cap PO BID 01/10/20 01/10/20 History [Calcium 600-Vit D3 800 Caplet] Potassium Chloride ER [K-Dur 20] 20 meq PO DAILY 01/10/20 01/10/20 History Allergies Allergy/AdvReac Type Severity Reaction Status Date / Time sulfamethoxazole Allergy Rash/Hives Verified 01/10/20 08:48 [From Bactrim] trimethoprim [From Bactrim] Allergy Rash/Hives Verified 01/10/20 08:48 Physical Exam Vitals: Vital Signs Temp Pulse Pulse Resp BP BP Pulse Ox 01/10/20 10:38 98.7 F 75 18 98/72 98 01/10/20 09:59 98.9 F 82 18 101/60 96 01/10/20 08:26 101.2 F H 01/10/20 07:20 89 18 102/56 95 01/10/20 06:14 22 01/10/20 05:59 103 F H 104 H 20 117/80 96 Intake and Output 01/09/20 01/10/20 01/10/20 22:59 06:59 14:59 Other: Weight 99.79 kg 99.79 kg Gen: Alert and oriented, NAD HEad: NCAT Neck: Supple Lungs: Diminished bibasilar, no wheezes Heart: tachycardia Abdomen: Tender, non distended Ext: Pedal edema or rash Neuro: non-focal Results CBC & Chem 7: 01/10/20 06:19 01/10/20 06:19 Labs: Abnormal Lab Results - Last 24 Hours (Table) 01/10/20 01/10/20 01/10/20 Range/Units 06:18 06:19 06:19 WBC 1.5 L (3.8-10.6) k/uL RBC 4.08 L (4.30-5.90) m/uL Hgb 12.4 L (13.0-17.5) gm/dL Hct 38.3 L (39.0-53.0) % RDW 17.5 H (11.5-15.5) % Neutrophils # 0.8 L (1.3-7.7) k/uL Lymphocytes # 0.3 L (1.0-4.8) k/uL Sodium 132 L (137-145) mmol/L Glucose 122 H (74-99) mg/dL POC Glucose (mg/dL) 132 H (75-99) mg/dL Plasma Lactic Acid Jeromy (0.7-2.0) mmol/L Total Protein 5.5 L (6.3-8.2) g/dL Albumin 3.3 L (3.5-5.0) g/dL 01/10/20 Range/Units 06:19 WBC (3.8-10.6) k/uL RBC (4.30-5.90) m/uL Hgb (13.0-17.5) gm/dL Hct (39.0-53.0) % RDW (11.5-15.5) % Neutrophils # (1.3-7.7) k/uL Lymphocytes # (1.0-4.8) k/uL Sodium (137-145) mmol/L Glucose (74-99) mg/dL POC Glucose (mg/dL) (75-99) mg/dL Plasma Lactic Acid Jeromy 4.2 H* (0.7-2.0) mmol/L Total Protein (6.3-8.2) g/dL Albumin (3.5-5.0) g/dL Chest x-ray: report reviewed Assessment and Plan Plan: Assessment and Recommendations: 1. Neutropenic Fever: - Conley Cultures in progress - Cdiff and Stool - IV antibiotics ordered and ID following - Will add growth factor at this time with neutrophils less than 1000 2. Multiple Myeloma: - Darzalex phase 3 q28 days, pomalyst and Dex - Hold chemotherapy at his time until infectious process resolves and Neutrophils are increased 3. Nausea, Vomting, Diarrhea: - Continue supportive care - Monitor electrolytes - IV Hydration Thank you for allowing us to participate in the care of this patient we will follow along with you. Nicolasa GARCIAP
[2020-01-10] MEDS: FILGRASTIM-SNDZ 480 MCG/0.8 ML SYRINGE SQ SCH (13:52)
--- NOTE | 2020-01-10 15:15 | P.HPIM ---
History of Present Illness H&P Date: 01/10/20 Chief Complaint: Nausea vomiting diarrhea Chief Complaint: Fever History of presenting complaint: This is a very pleasant 64-year-old patient of Dr. Pierson. Patient's chronic stable medical conditions include hyperlipidemia, multiple myeloma, gait dysfunction uses a walker, peripheral neuropathy, minimal coronary artery disease per cardiac catheterization 30%, pulmonary embolism on eliquis. Yesterday evening patient started of with profuse nausea vomiting diarrhea. Fever. Slight abdominal pain. At eating home cooked food. did not get sick. Was started on cefepime in the ER. Feeling somewhat better this morning. Review of systems: GEN.: Fever EYES: None HEENT: None NECK: None RESPIRATORY: None CARDIOVASCULAR: None GASTROINTESTINAL: As above GENITOURINARY: None MUSCULOSKELETAL: None LYMPHATICS: None HEMATOLOGICAL: None PSYCHIATRY: None NEUROLOGICAL: None Past medical history: Multiple myeloma, hyperlipidemia, chronic gait dysfunction uses a walker, peripheral neuropathy, minimal coronary artery disease 30% disease, vertebral stress fracture patient had shingles in 2013. 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 Smoked for 10 years and stopped at the age of 27. Did smoke marijuana in the remote past. Family history: renal disease, abdominal aortic aneurysm Physical examination: VITAL SIGNS: 103, 104, 20, 117/80, 96% on room air GENERAL: Propped up in bed, tired EYES: Pupils equal. Conjunctiva normal. HEENT: External appearance of nose and ears normal, oral cavity grossly normal. NECK: JVD not raised; masses not palpable. HEART: First and second heart sounds are normal; no edema. LUNGS: Decreased breath sounds some mild wheezing ABDOMEN: Soft, nontender, liver spleen not palpable, no masses palpable. PSYCH: [Alert and oriented x3; mood and affect anxious l. NEUROLOGICAL: Cranial nerves grossly intact. Power sensation grossly intact. Investigations reviewed in the clinical context: White count 1.5 hemoglobin 12.4 platelets 184 potassium 3.5 creatinine 0.77 Influenza type A and type B both negative Assessment: -Likely acute bacterial gastroenteritis. Patient does denies any respiratory urinary symptoms. -Chronic pulmonary embolism August 2019,, on eliquis -Multiple myeloma -hyperlipidemia -chronic gait dysfunction uses a walker -peripheral neuropathy side effect of chemotherapy -Minimal coronary artery disease per cardiac catheterization 30% disease Plan: We'll DC IV cefepime. We'll start the patient on Cipro and Flagyl. Other medications to continue. Patient is put on a clear liquid diet. 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, gait dysfunction-uses walker, bilateral pedal/ankle edema, PE 08/2019, chronic low back pain, past vertebral fractures, minimal CAD, shingelles twice, past R heel wound, elevated lipids in the past, History of Any Multi-Drug Resistant Organisms: None Reported Past Surgical History: Heart Catheterization, Orthopedic Surgery Additional Past Surgical History / Comment(s): excision of uvular lesion(benign) 2009, colonoscopy, dave knee arthroscopy, rt rotator cuff sx, moles removed from back(benign), bone marrow aspiration/bx, stem cell transplant 2015, Past Anesthesia/Blood Transfusion Reactions: No Reported Reaction Smoking Status: Former smoker - Past Family History Father Family Medical History: Renal Disease, Vascular Disorder Additional Family Medical History / Comment(s): aaa. Father is . Mother Family Medical History: No Reported History Additional Family Medical History / Comment(s): mom is healthy Medications and Allergies Home Medications Medication Instructions Recorded Confirmed Type oxyCODONE HCL [OxyIR] 5 mg PO QID PRN 02/05/17 01/10/20 History Dexamethasone 20 mg PO WE 04/15/19 01/10/20 History Famotidine [Pepcid] 20 mg PO DAILY PRN 04/15/19 01/10/20 History Gabapentin [Neurontin] 300 mg PO TID@0900,1830,2330 04/15/19 01/10/20 History Acyclovir 400 mg PO BID 08/24/19 01/10/20 History Pomalyst 3mg 3 mg PO HS 08/24/19 01/10/20 History Aspirin 81 mg PO DAILY #30 chewable 08/26/19 01/10/20 Rx Apixaban [Eliquis] 5 mg PO BID 10/03/19 01/10/20 History Nitroglycerin Sl Tabs [Nitrostat] 0.4 mg SUBLINGUAL Q5M PRN 10/03/19 01/10/20 History Calcium Carbonate/Vitamin D3 2 cap PO BID 01/10/20 01/10/20 History [Calcium 600-Vit D3 800 Caplet] Potassium Chloride ER [K-Dur ] 20 meq PO DAILY 01/10/20 01/10/20 History Allergies Allergy/AdvReac Type Severity Reaction Status Date / Time sulfamethoxazole Allergy Rash/Hives Verified 01/10/20 08:48 [From Bactrim] trimethoprim [From Bactrim] Allergy Rash/Hives Verified 01/10/20 08:48 Physical Exam Vitals: Vital Signs Temp Pulse Pulse Resp BP BP Pulse Ox 01/10/20 10:38 98.7 F 75 18 98/72 98 01/10/20 09:59 98.9 F 82 18 101/60 96 01/10/20 08:26 101.2 F H 01/10/20 07:20 89 18 102/56 95 01/10/20 06:14 22 01/10/20 05:59 103 F H 104 H 20 117/80 96 Intake and Output 01/09/20 01/10/20 01/10/20 22:59 06:59 14:59 Other: Weight 99.79 kg 99.79 kg Results CBC & Chem 7: 01/10/20 06:19 01/10/20 06:19 Labs: Abnormal Lab Results - Last 24 Hours (Table) 01/10/20 01/10/20 01/10/20 Range/Units 06:18 06:19 06:19 WBC 1.5 L (3.8-10.6) k/uL RBC 4.08 L (4.30-5.90) m/uL Hgb 12.4 L (13.0-17.5) gm/dL Hct 38.3 L (39.0-53.0) % RDW 17.5 H (11.5-15.5) % Neutrophils # 0.8 L (1.3-7.7) k/uL Lymphocytes # 0.3 L (1.0-4.8) k/uL Sodium 132 L (137-145) mmol/L Glucose 122 H (74-99) mg/dL POC Glucose (mg/dL) 132 H (75-99) mg/dL Plasma Lactic Acid Jeromy (0.7-2.0) mmol/L Total Protein 5.5 L (6.3-8.2) g/dL Albumin 3.3 L (3.5-5.0) g/dL 01/10/20 Range/Units 06:19 WBC (3.8-10.6) k/uL RBC (4.30-5.90) m/uL Hgb (13.0-17.5) gm/dL Hct (39.0-53.0) % RDW (11.5-15.5) % Neutrophils # (1.3-7.7) k/uL Lymphocytes # (1.0-4.8) k/uL Sodium (137-145) mmol/L Glucose (74-99) mg/dL POC Glucose (mg/dL) (75-99) mg/dL Plasma Lactic Acid Jeromy 4.2 H* (0.7-2.0) mmol/L Total Protein (6.3-8.2) g/dL Albumin (3.5-5.0) g/dL Thrombosis Risk Factor Assmnt - Choose All That Apply Any of the Below Risk Factors Present?: Yes Each Factor Represents 1 point: Obesity (BMI >25), Swollen legs (current) Other Risk Factors: Yes Each Risk Factor Represents 2 Points: Age 61-74 years, Malignancy Each Risk Factor Represents 3 Points: History of DVT/PE Other congenital or acquired thrombophilia - If yes, enter type in comment: No Thrombosis Risk Factor Assessment Total Risk Factor Score: 9 Thrombosis Risk Factor Assessment Level: High Risk
[2020-01-10] MEDS: CEFEPIME 2 GM in SODIUM CHLORIDE 0.9% 100 ML IVPB SCH ×2 (16:57→23:41)
[2020-01-10] MEDS: metroNIDAZOLE-NS PMX 500 MG in SALINE 1 100ML.BAG IVPB SCH (17:57)
[2020-01-10] MEDS ORDERED: POMALYST 3 MG PO SCH (21:00)
--- NOTE | 2020-01-10 21:43 | P.CONS ---
History of Present Illness - Reason for Consult Consult date: 01/10/20 Fever Requesting physician: Devon Ferro - Chief Complaint vomiting and diarrhea since 2 am - History of Present Illness Patient is a 64-year-old male with a past medical history significant for multiple myeloma for the patient is currently on oral chemotherapy patient presenting to the ER early this morning with a chief complaints of acute nausea vomiting and diarrhea that started around 2 in the morning patient started with the vomiting and subsequently started having diarrhea with multiple loose stools and throwing up the patient also complaining of some lower abdominal discomfort more for diffuse a dull aching pain at some colicky characteristic patient denies anybody else sick at home on arrival to the ER the patient did have a fever of 103 F patient was tachycardic with heart rate of 104 white count 1.5 lactic acid 4.2 UA negative influenza PCR was negative patient did have a chest x-ray low lung volumes and no acute definite process patient did have a CT of abdominal pelvis completed suboptimal study mild uncomplicated acute distal colitis versus poor distention patient was admitted to hospital he was started on cefepime and Flagyl he was consulted for further recommendation regarding antibiotic therapy. 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, gait dysfunction-uses walker, bilateral pedal/ankle edema, PE 08/2019, chronic low back pain, past vertebral fractures, minimal CAD, shingelles twice, past R heel wound, elevated lipids in the past, History of Any Multi-Drug Resistant Organisms: None Reported Past Surgical History: Heart Catheterization, Orthopedic Surgery Additional Past Surgical History / Comment(s): excision of uvular lesion(benign) 2009, colonoscopy, dave knee arthroscopy, rt rotator cuff sx, moles removed from back(benign), bone marrow aspiration/bx, stem cell transplant 2015, Past Anesthesia/Blood Transfusion Reactions: No Reported Reaction Smoking Status: Former smoker - Past Family History Father Family Medical History: Renal Disease, Vascular Disorder Additional Family Medical History / Comment(s): aaa. Father is . Mother Family Medical History: No Reported History Additional Family Medical History / Comment(s): mom is healthy Medications and Allergies Home Medications Medication Instructions Recorded Confirmed Type oxyCODONE HCL [OxyIR] 5 mg PO QID PRN 02/05/17 01/10/20 History Dexamethasone 20 mg PO WE 04/15/19 01/10/20 History Famotidine [Pepcid] 20 mg PO DAILY PRN 04/15/19 01/10/20 History Gabapentin [Neurontin] 300 mg PO TID@0900,1830,2330 04/15/19 01/10/20 History Acyclovir 400 mg PO BID 08/24/19 01/10/20 History Pomalyst 3mg 3 mg PO HS 08/24/19 01/10/20 History Aspirin 81 mg PO DAILY #30 chewable 08/26/19 01/10/20 Rx Apixaban [Eliquis] 5 mg PO BID 10/03/19 01/10/20 History Nitroglycerin Sl Tabs [Nitrostat] 0.4 mg SUBLINGUAL Q5M PRN 10/03/19 01/10/20 History Calcium Carbonate/Vitamin D3 2 cap PO BID 01/10/20 01/10/20 History [Calcium 600-Vit D3 800 Caplet] Potassium Chloride ER [K-Dur 20] 20 meq PO DAILY 01/10/20 01/10/20 History Allergies Allergy/AdvReac Type Severity Reaction Status Date / Time sulfamethoxazole Allergy Rash/Hives Verified 01/10/20 08:48 [From Bactrim] trimethoprim [From Bactrim] Allergy Rash/Hives Verified 01/10/20 08:48 Physical Exam Vitals: Vital Signs Temp Pulse Pulse Resp BP BP Pulse Ox 01/10/20 10:38 98.7 F 75 18 98/72 98 01/10/20 09:59 98.9 F 82 18 101/60 96 01/10/20 08:26 101.2 F H 01/10/20 07:20 89 18 102/56 95 01/10/20 06:14 22 01/10/20 05:59 103 F H 104 H 20 117/80 96 Intake and Output 01/09/20 01/10/20 01/10/20 22:59 06:59 14:59 Other: Weight 99.79 kg 99.79 kg GENERAL DESCRIPTION: Elderly male lying in bed, no distress. No tachypnea or accessory muscle of respiration use. HEENT: Shows Pallor , no scleral icterus. Oral mucous membrane is dry. NECK: Trachea central, no thyromegaly. LUNGS: Unlabored breathing. Clear to auscultation anteriorly. No wheeze or crackle. HEART: S1, S2, regular rate and rhythm. ABDOMEN: Soft, no tenderness , guarding or rigidity EXTREMITIES: No edema of feet. SKIN: No rash, no masses palpable. NEUROLOGICAL: The patient is awake, alert, oriented x3, mood and affect normal Results CBC & Chem 7: 01/10/20 06:19 01/10/20 06:19 Labs: Abnormal Lab Results - Last 24 Hours (Table) 01/10/20 01/10/20 01/10/20 Range/Units 06:18 06:19 06:19 WBC 1.5 L (3.8-10.6) k/uL RBC 4.08 L (4.30-5.90) m/uL Hgb 12.4 L (13.0-17.5) gm/dL Hct 38.3 L (39.0-53.0) % RDW 17.5 H (11.5-15.5) % Neutrophils # 0.8 L (1.3-7.7) k/uL Lymphocytes # 0.3 L (1.0-4.8) k/uL Sodium 132 L (137-145) mmol/L Glucose 122 H (74-99) mg/dL POC Glucose (mg/dL) 132 H (75-99) mg/dL Plasma Lactic Acid Jeromy (0.7-2.0) mmol/L Total Protein 5.5 L (6.3-8.2) g/dL Albumin 3.3 L (3.5-5.0) g/dL 01/10/20 Range/Units 06:19 WBC (3.8-10.6) k/uL RBC (4.30-5.90) m/uL Hgb (13.0-17.5) gm/dL Hct (39.0-53.0) % RDW (11.5-15.5) % Neutrophils # (1.3-7.7) k/uL Lymphocytes # (1.0-4.8) k/uL Sodium (137-145) mmol/L Glucose (74-99) mg/dL POC Glucose (mg/dL) (75-99) mg/dL Plasma Lactic Acid Jeromy 4.2 H* (0.7-2.0) mmol/L Total Protein (6.3-8.2) g/dL Albumin (3.5-5.0) g/dL Assessment and Plan Assessment: Patient presented to the hospital with sepsis in this patient who did have fever leukocytosis leukopenia the patient with a history of her multiple myeloma on chemotherapy with predominantly GI symptom concern for possible viral versus bacterial gastroenteritis with a CT did shows evidence of some distal colitis, will need to cover for enteric gram-negative with a likely pathogen at this point (1) Gastroenteritis Current Visit: Yes Status: Acute Code(s): K52.9 - NONINFECTIVE GASTROENTERITIS AND COLITIS, UNSPECIFIED SNOMED Code(s): 57072836 (2) Sepsis Current Visit: Yes Status: Acute Code(s): A41.9 - SEPSIS, UNSPECIFIED ORGANISM SNOMED Code(s): 38156729 Plan: 1-cefepime 2 g every 12 hours 2-we will add Flagyl 500 every 8 hour 3-stool for C. difficile and stool culture 4- IV fluids We will follow on clinical condition and cultures to further adjust medication if needed Thank you for this consultation we will follow the patient along with you Time with Patient: Greater than 30
[2020-01-11] MEDS: metroNIDAZOLE-NS PMX 500 MG in SALINE 1 100ML.BAG IVPB SCH ×3 (00:33→19:09)
[2020-01-11 08:14] LABS: Anisocytosis Slight; HCT 33.4 % (39.0-53.0); HGB 10.6 gm/dL (13.0-17.5); Hypochromasia Slight; MCH 30.7 pg (25.0-35.0); MCHC 31.7 g/dL (31.0-37.0); MCV 96.7 fL (80.0-100.0); Macrocytosis Slight; Mean Platelet Volume 8.3; Platelet Count 154 k/uL (150-450); RBC 3.45 m/uL (4.30-5.90); RDW 17.5 % (11.5-15.5); WBC 3.5 k/uL (3.8-10.6)
[2020-01-11] MEDS: ACYCLOVIR 200 MG CAP PO SCH ×2 (08:38→20:42)
[2020-01-11] MEDS: ASPIRIN 81 MG PO SCH (08:38)
[2020-01-11] MEDS: APIXABAN 5 MG TAB PO SCH ×2 (08:38→20:42)
[2020-01-11] MEDS: GABAPENTIN 300 MG CAP PO SCH ×3 (08:38→23:22)
[2020-01-11] MEDS: FILGRASTIM-SNDZ 480 MCG/0.8 ML SYRINGE SQ SCH (08:39)
[2020-01-11] MEDS: CEFEPIME 2 GM in SODIUM CHLORIDE 0.9% 100 ML IVPB SCH ×3 (08:41→23:27)
[2020-01-11 08:59] LABS: Band Neutrophils % 4 %; Basophils # (M) 0.04 k/uL (0-0.2); Eosinophils # (M) 0.32 k/uL (0-0.7); Lymphocytes # (M) 0.18 k/uL (1.0-4.8); Monocytes # (M) 0.63 k/uL (0-1.0); Neutrophils % (M) 63 %; Nucleated Red Blood Cells 0 /100 WBC (0-0); Total Cells Counted 100
[2020-01-11] MEDS ORDERED: DEXAMETHASONE 4 MG TAB PO SCH (09:00)
[2020-01-11 09:01] LABS: Anisocytosis (M) Present; Poikilocytosis (M) Present
[2020-01-11] MEDS: SODIUM CHLORIDE 0.9% 1,000 ML IV SCH (12:06)
--- NOTE | 2020-01-11 13:35 | P.PN ---
Subjective Progress Note Date: 01/11/20 Principal diagnosis: nausea, Vomiting, Diarrhea, Febrile Neutropenia no further episodes of diarrhea or fevers. CBC is improved. Objective - Vital Signs Vital signs: Vital Signs Temp 99 F 01/11/20 11:43 Pulse 77 01/11/20 11:43 Resp 17 01/11/20 11:43 BP 98/61 01/11/20 11:43 Pulse Ox 94 L 01/11/20 11:43 Intake & Output 01/10/20 01/11/20 01/11/20 18:59 06:59 18:59 Intake Total 400 1850 Balance 400 1850 Weight 99.79 kg Intake: Intake, IV Titration 400 900 Amount Cefepime 2 gm In Sodium 100 Chloride 0.9% 100 ml @ 200 mls/hr IVPB Q8HR [facility] Rx#:[id number] Sodium Chloride 0.9% 1, 300 900 000 ml @ 75 mls/hr IV . [id number] [facility] Rx#:[id number] Oral 950 Other: Voiding Method Toilet # Voids 1 2 - Exam Gen: Alert and oriented, NAD HEad: NCAT Neck: Supple Lungs: Diminished bibasilar, no wheezes Heart: tachycardia Abdomen: Tender, non distended Ext: Pedal edema or rash Neuro: non-focal - Labs CBC & Chem 7: 01/11/20 07:29 01/10/20 06:19 Labs: Abnormal Lab Results - Last 24 Hours (Table) 01/11/20 Range/Units 07:29 WBC 3.5 L (3.8-10.6) k/uL RBC 3.45 L (4.30-5.90) m/uL Hgb 10.6 L (13.0-17.5) gm/dL Hct 33.4 L (39.0-53.0) % RDW 17.5 H (11.5-15.5) % Lymphocytes # (Manual) 0.18 L (1.0-4.8) k/uL Microbiology - Last 24 Hours (Table) 01/10/20 06:50 Blood Culture - Preliminary Blood No Growth after 24 hours Assessment and Plan Plan: Assessment and Recommendations: 1. Neutropenic Fever:Resolved - Conley Cultures in progress - Cdiff and Stool - IV antibiotics ordered and ID following - Will add growth factor at this time with neutrophils less than 1000 2. Multiple Myeloma: - Darzalex phase 3 q28 days, pomalyst and Dex - Hold chemotherapy at his time until infectious process resolves and Neutrophils are increased 3. Nausea, Vomting, Diarrhea:resolved - Continue supportive care - Monitor electrolytes - IV Hydration Follow-up: - I patient is discharged he can be set up for CBC outpatient and Follow-up - he can plan to restart pomalyst as expected next week if continues to improve and cultures and stool studies negative. - Go forward with growth factor today, likely discontinue tomorrow Nicolasa BARRIENTOS Physician Attestation: I have performed the full physical examination and reviewed the full history of this patient, as well as pertinent findings. I have created the compled impression and recommendations. I agree with the above dictation by ILIANA Spencer. This dictation has been written as a scribe.
--- NOTE | 2020-01-11 15:35 | P.PN ---
Progress Note - Text Progress Note Date: 01/11/20 Chief Complaint: Fever History of presenting complaint: This is a very pleasant 64-year-old patient of Dr. Pierson. Patient's chronic stable medical conditions include hyperlipidemia, multiple myeloma, gait dysfunction uses a walker, peripheral neuropathy, minimal coronary artery disease per cardiac catheterization 30%, pulmonary embolism on eliquis. Yesterday evening patient started of with profuse nausea vomiting diarrhea. Fever. Slight abdominal pain. At eating home cooked food. did not get sick. Was started on cefepime in the ER. Feeling somewhat better this morning. Admitted with acute gastroenteritis possible bacterial. Sepsis picture. Put on IV cefepime and IV Flagyl. Today-feeling better. Did tolerate a clear liquid diet. No fever. Diarrhea settled down. A bit tired. Review of systems: Was done for constitutional, cardiovascular, GI, pulmonary. relevant finding as above Active Medications Acetaminophen (Tylenol Tab) 650 mg PO Q6HR PRN PRN Reason: Mild Pain or Fever > 100.5 Acyclovir (Zovirax) 400 mg PO BID [facility] Last Admin: 01/11/20 08:38 Dose: 400 mg Documented by: Apixaban (Eliquis) 5 mg PO BID [facility] Last Admin: 01/11/20 08:38 Dose: 5 mg Documented by: Aspirin (Aspirin) 81 mg PO DAILY [facility] Last Admin: 01/11/20 08:38 Dose: 81 mg Documented by: Dexamethasone (Hexadrol) 20 mg PO WE [facility] Last Admin: 01/11/20 08:38 Dose: 20 mg Documented by: Famotidine (Pepcid) 20 mg PO DAILY PRN PRN Reason: Heartburn Filgrastim (Zarxio) 480 mcg SQ DAILY [facility] Last Admin: 01/11/20 08:39 Dose: 480 mcg Documented by: Gabapentin (Neurontin) 300 mg PO TID@0900,1830,2330 [facility] Last Admin: 01/11/20 08:38 Dose: 300 mg Documented by: Cefepime HCl 2 gm/ Sodium (Chloride) 100 mls @ 200 mls/hr IVPB Q8HR [facility] Last Admin: 01/11/20 08:41 Dose: 200 mls/hr Documented by: Sodium Chloride (Saline 0.9%) 1,000 mls @ 75 mls/hr IV .[id number] [facility] Last Admin: 01/11/20 12:06 Dose: Not Given Documented by: Metronidazole 500 mg/ IV (Solution) 100 mls @ 100 mls/hr IVPB Q8HR [facility] Last Admin: 01/11/20 09:25 Dose: 100 mls/hr Documented by: Ibuprofen (Motrin) 400 mg PO Q6HR PRN PRN Reason: Mild Pain or Fever > 100.5 Naloxone HCl (Narcan) 0.2 mg IV Q2M PRN PRN Reason: Opioid Reversal Nitroglycerin (Nitrostat) 0.4 mg SUBLINGUAL Q5M PRN PRN Reason: Chest Pain Ondansetron HCl (Zofran) 4 mg IVP Q8HR PRN PRN Reason: Nausea And Vomiting Oxycodone HCl (Oxyir) 5 mg PO QID PRN PRN Reason: Pain Last Admin: 01/11/20 08:53 Dose: 5 mg Documented by: Physical examination: VITAL SIGNS: 97.3, 76, 16, 104/65, 94% on room air GENERAL: Sitting up, comfortable EYES: Pupils equal. Conjunctiva normal. HEENT: External appearance of nose and ears normal, oral cavity grossly normal. NECK: JVD not raised; masses not palpable. HEART: First and second heart sounds are normal; no edema. LUNGS: Decreased breath sounds some mild wheezing ABDOMEN: Soft, nontender, liver spleen not palpable, no masses palpable. PSYCH: [Alert and oriented x3; mood and affect anxious l. NEUROLOGICAL: Cranial nerves grossly intact. Power sensation grossly intact. Investigations reviewed in the clinical context: White count 3.5 hemoglobin 10.6 platelets 154 Blood culture pending Previous testing White count 1.5 hemoglobin 12.4 platelets 184 potassium 3.5 creatinine 0.77 Influenza type A and type B both negative EKG tracing personally reviewed by me-essential Computedtomographyscanabdomenandpelvis-unremarkable Assessment: -Likely acute bacterial gastroenteritis causing sepsis.. -Improving. -Chronic pulmonary embolism August 2019,, on eliquis -Multiple myeloma -hyperlipidemia -chronic gait dysfunction uses a walker -peripheral neuropathy side effect of chemotherapy -Minimal coronary artery disease per cardiac catheterization 30% disease Plan: Continue with IV cefepime and Flagyl. Clinically patient much improved. Advance diet to full liquids and a soft palate this evening. No further diarrhea. Blood culture pending. Discussed with patient.
--- NOTE | 2020-01-11 17:20 | PN ---
PROGRESS NOTE DATE OF SERVICE: 01/11/2020 REASON FOR FOLLOWUP: Sepsis and gastroenteritis. INTERVAL HISTORY: The patient is currently afebrile. The patient has been breathing comfortably. The patient denies having any chest pain or shortness of breath or cough. No further nausea or vomiting. He has been tolerating his diet. No diarrhea. PHYSICAL EXAMINATION: Blood pressure is 98/61, pulse of 77, temperature 99. He is 94% on room air. General description is an elderly male lying in bed in no distress. RESPIRATORY SYSTEM: Unlabored breathing. Clear to auscultation anteriorly. HEART: S1, S2. Regular rate and rhythm. ABDOMEN: Soft. No tenderness. LABS: Hemoglobin is 10.3, white count 3.5. Blood culture negative. Stool studies were not collected. DIAGNOSTIC IMPRESSION AND PLAN: Patient admitted to hospital with sepsis in this patient who did have a fever, tachycardia, leukopenia with predominantly gastrointestinal symptoms. Concern for gastroenteritis; question viral versus bacterial. The patient is clinically responding to cefepime and Flagyl. If he continues to improve, he may finish with a short course of oral antibiotics. Continue with supportive care. MMODL / IJN: [id number] /
[2020-01-12] MEDS: metroNIDAZOLE-NS PMX 500 MG in SALINE 1 100ML.BAG IVPB SCH ×2 (00:25→11:23)
[2020-01-12 04:50] VITALS: RESP 16
[2020-01-12 09:21] LABS: Anisocytosis Slight; Basophils % (A) 0 %; Eosinophils % (A) 0 %; HCT 36.3 % (39.0-53.0); HGB 11.8 gm/dL (13.0-17.5); Hypochromasia Moderate; Lymphocytes # (A) 0.3 k/uL (1.0-4.8); Lymphocytes % (A) 4 %; MCH 31.5 pg (25.0-35.0); MCHC 32.5 g/dL (31.0-37.0); MCV 97.1 fL (80.0-100.0); Macrocytosis Slight; Mean Platelet Volume 7.9; Monocytes # (A) 0.6 k/uL (0-1.0); Monocytes % (A) 9 %; Neutrophils # (A) 6.1 k/uL (1.3-7.7); Neutrophils % (A) 86 %; Platelet Count 210 k/uL (150-450); RBC 3.74 m/uL (4.30-5.90); RDW 17.6 % (11.5-15.5); WBC 7.1 k/uL (3.8-10.6)
[2020-01-12] MEDS: SODIUM CHLORIDE 0.9% 1,000 ML IV SCH (10:29)
[2020-01-12] MEDS: APIXABAN 5 MG TAB PO SCH (10:35)
[2020-01-12] MEDS: GABAPENTIN 300 MG CAP PO SCH (10:35)
[2020-01-12] MEDS: ACYCLOVIR 200 MG CAP PO SCH (10:35)
[2020-01-12] MEDS: ASPIRIN 81 MG PO SCH (10:35)
[2020-01-12] MEDS: CEFEPIME 2 GM in SODIUM CHLORIDE 0.9% 100 ML IVPB SCH (10:35)
--- NOTE | 2020-01-12 11:18 | P.PN ---
Subjective Progress Note Date: 01/12/20 Principal diagnosis: nausea, Vomiting, Diarrhea, Febrile Neutropenia CBC is safe range and stable. Objective - Vital Signs Vital signs: Vital Signs Temp 97.3 F L 01/12/20 04:49 Pulse 51 L 01/12/20 04:49 Resp 16 01/12/20 04:49 BP 109/64 01/12/20 04:49 Pulse Ox 97 01/12/20 04:49 Intake & Output 01/11/20 01/12/20 01/12/20 18:59 06:59 18:59 Intake Total 1880 1550 Balance 1880 1550 Intake: Intake, IV Titration 800 950 Amount Cefepime 2 gm In Sodium 100 100 Chloride 0.9% 100 ml @ 200 mls/hr IVPB Q8HR [facility] Rx#:[id number] Sodium Chloride 0.9% 1, 600 750 000 ml @ 75 mls/hr IV . [id number] [facility] Rx#:[id number] metroNIDAZOLE-NS PMX 500 100 100 mg In Saline 1 100ml.bag @ 100 mls/hr IVPB Q8HR [facility] Rx#:[id number] Oral 1080 600 Other: Voiding Method Toilet Toilet Toilet # Voids 4 1 - Exam Gen: Alert and oriented, NAD HEad: NCAT Neck: Supple Lungs: Diminished bibasilar, no wheezes Heart: tachycardia Abdomen: Tender, non distended Ext: Pedal edema or rash Neuro: non-focal - Labs CBC & Chem 7: 01/12/20 08:39 01/10/20 06:19 Labs: Abnormal Lab Results - Last 24 Hours (Table) 01/12/20 Range/Units 08:39 RBC 3.74 L (4.30-5.90) m/uL Hgb 11.8 L (13.0-17.5) gm/dL Hct 36.3 L (39.0-53.0) % RDW 17.6 H (11.5-15.5) % Lymphocytes # 0.3 L (1.0-4.8) k/uL Microbiology - Last 24 Hours (Table) 01/10/20 06:50 Blood Culture - Preliminary Blood No Growth after 48 hours Assessment and Plan Plan: Assessment and Recommendations: 1. Neutropenic Fever:Resolved - Conley Cultures in progress - Cdiff and Stool - IV antibiotics ordered and ID following - Will add growth factor at this time with neutrophils less than 1000 2. Multiple Myeloma: - Darzalex phase 3 q28 days, pomalyst and Dex - Hold chemotherapy at his time until infectious process resolves and Ne utrophils are increased 3. Nausea, Vomting, Diarrhea:resolved - Continue supportive care - Monitor electrolytes - IV Hydration Follow-up: - I patient is discharged he can be set up for CBC outpatient and Follow-up - he can plan to restart pomalyst as expected next week if continues to improve and cultures and stool studies negative. -Discontinue growth factor as counts recovered - Follow-up after discharge Nicolasa Hendricks AOP
[2020-01-12] MEDS: FILGRASTIM-SNDZ 480 MCG/0.8 ML SYRINGE SQ SCH (11:30)
[2020-01-12 11:44] VITALS: BP 138/80; PULSE 72; TEMP 97.7
--- NOTE | 2020-01-12 14:25 | PN ---
PROGRESS NOTE DATE OF SERVICE: 01/12/2020. REASON FOR FOLLOWUP: Acute gastroenteritis. INTERVAL HISTORY: The patient is currently afebrile. The patient is breathing comfortably. Denies having any further nausea. No vomiting. No abdominal pain. No diarrhea. PHYSICAL EXAMINATION: Blood pressure 132/80 with a pulse of 72, temperature 97.7. He is 98% on room air. General description is an elderly male lying in bed in no distress. RESPIRATORY SYSTEM: Unlabored breathing. Clear to auscultation anteriorly. HEART: S1, S2. Regular rate and rhythm. ABDOMEN: Soft. No tenderness. LABS: Hemoglobin is 11.8, white count 7.1. Blood culture has been negative. DIAGNOSTIC IMPRESSION AND PLAN: Patient admitted to the hospital with sepsis, predominantly gastrointestinal symptoms with concern for gastroenteritis, possibly bacterial. Clinically responding to cefepime and Flagyl. Finish therapy with oral Levaquin and Flagyl for about a week. This has been discussed in detail with the admitting team. Work on discharge. Continue with supportive care. MMODL / IJN: [id number] /
--- NOTE | 2020-01-12 18:28 | P.DS ---
Providers Date of admission: 01/10/20 08:49 Expected date of discharge: 01/12/20 Attending physician: Devon Ferro Consults: 01/10/20 08:52 Consult Physician Urgent Consulting Provider: Luis A Mcgowan Consult Reason/Comments: Neutropenic fever Do you want consulting provider notified?: Already Contacted Consult Physician Urgent Consulting Provider: Francois Miranda Consult Reason/Comments: Neutropenic fever Do you want consulting provider notified?: Yes Primary care physician: Denton Championernst [facility] Course: Chief Complaint: Fever History of presenting complaint: This is a very pleasant 64-year-old patient of Dr. Pierson. Patient's chronic stable medical conditions include hyperlipidemia, multiple myeloma, gait dysfunction uses a walker, peripheral neuropathy, minimal coronary artery disease per cardiac catheterization 30%, pulmonary embolism on eliquis. Yesterday evening patient started of with profuse nausea vomiting diarrhea. Fever. Slight abdominal pain. At eating home cooked food. did not get sick. Was started on cefepime in the ER. Feeling somewhat better this morning. Admitted with acute gastroenteritis possible bacterial. Sepsis picture. Put on IV cefepime and IV Flagyl. Today-doing well. Diuretics completely resolved. Tolerating diet. Up and about. No fever no chills. Care was discussed with the patient. Discussed with Dr. De Santiago from [place] to [place]. Oral-Levaquin and Flagyl Discussion and discharge planning more than 35 minutes Consultation: Dr. Kushal Miranda from ID Dr. Mcgowan from oncology Physical examination: VITAL SIGNS: 97.7, 72, 16, 138/80, 98% on room air GENERAL: Sitting up, comfortable EYES: Pupils equal. Conjunctiva normal. HEENT: External appearance of nose and ears normal, oral cavity grossly normal. NECK: JVD not raised; masses not palpable. HEART: First and second heart sounds are normal; no edema. LUNGS: Decreased breath sounds some mild wheezing ABDOMEN: Soft, nontender, liver spleen not palpable, no masses palpable. PSYCH: [Alert and oriented x3; mood and affect anxious l. NEUROLOGICAL: Cranial nerves grossly intact. Power sensation grossly intact. Investigations reviewed in the clinical context: White count 7.1 hemoglobin 11.8 Blood culture negative Previous testing White count 1.5 hemoglobin 12.4 platelets 184 potassium 3.5 creatinine 0.77 Influenza type A and type B both negative EKG tracing personally reviewed by me-essential Computedtomographyscanabdomenandpelvis-unremarkable Assessment: -Likely acute bacterial gastroenteritis causing sepsis., POA. -Chronic pulmonary embolism August 2019,, on eliquis -Multiple myeloma -hyperlipidemia -chronic gait dysfunction uses a walker -peripheral neuropathy side effect of chemotherapy -Minimal coronary artery disease per cardiac catheterization 30% disease Disposition: Home Patient Condition at Discharge: Stable Plan - Discharge Summary Discharge Rx Participant: No New Discharge Prescriptions: New metroNIDAZOLE [Flagyl] 500 mg PO TID #15 tab Levofloxacin [Levaquin] 500 mg PO DAILY #5 tab Continue oxyCODONE HCL [OxyIR] 5 mg PO QID PRN PRN Reason: Pain Famotidine [Pepcid] 20 mg PO DAILY PRN PRN Reason: Heartburn Gabapentin [Neurontin] 300 mg PO TID@0900,1830,2330 Dexamethasone 20 mg PO WE Acyclovir 400 mg PO BID Pomalyst 3mg 3 mg PO HS Aspirin 81 mg PO DAILY #30 chewable Apixaban [Eliquis] 5 mg PO BID Nitroglycerin Sl Tabs [Nitrostat] 0.4 mg SUBLINGUAL Q5M PRN PRN Reason: Chest Pain Potassium Chloride ER [K-Dur 20] 20 meq PO DAILY Calcium Carbonate/Vitamin D3 [Calcium 600-Vit D3 800 Caplet] 2 cap PO BID Discharge Medication List oxyCODONE HCL [OxyIR] 5 mg PO QID PRN 02/05/17 [History] Dexamethasone 20 mg PO WE 04/15/19 [History] Famotidine [Pepcid] 20 mg PO DAILY PRN 04/15/19 [History] Gabapentin [Neurontin] 300 mg PO TID@0900,1830,2330 04/15/19 [History] Acyclovir 400 mg PO BID 08/24/19 [History] Pomalyst 3mg 3 mg PO HS 08/24/19 [History] Aspirin 81 mg PO DAILY #30 chewable 08/26/19 [Rx] Apixaban [Eliquis] 5 mg PO BID 10/03/19 [History] Nitroglycerin Sl Tabs [Nitrostat] 0.4 mg SUBLINGUAL Q5M PRN 10/03/19 [History] Calcium Carbonate/Vitamin D3 [Calcium 600-Vit D3 800 Caplet] 2 cap PO BID 01/10/20 [History] Potassium Chloride ER [K-Dur 20] 20 meq PO DAILY 01/10/20 [History] Levofloxacin [Levaquin] 500 mg PO DAILY #5 tab 01/12/20 [Rx] metroNIDAZOLE [Flagyl] 500 mg PO TID #15 tab 01/12/20 [Rx] Follow up Appointment(s)/Referral(s): Elkin Pierson MD [Primary Care Provider] - 01/16/20 2:40 pm () Patient Instructions/Handouts: Metronidazole (By mouth), Levofloxacin (By mouth), Neutropenia (DC) Discharge Disposition: HOME SELF-CARE
== END 2020-01-12 13:50 | disposition home or self-care (01) | DRG 872 ==
LOC: EC 05:55 → 5NMEDONC 08:49
PROVIDERS: ADMIT Hospitalist; ATTEND Hospitalist
DX: A41.9 Sepsis, unspecified organism (principal); A04.9 Bacterial intestinal infection, unspecified; C90.00 Multiple myeloma not having achieved remission; Z94.84 Stem cells transplant status; E78.5 Hyperlipidemia, unspecified; G62.9 Polyneuropathy, unspecified; I25.10 Atherosclerotic heart disease of native coronary artery without angina pectoris; T45.1X5A Adverse effect of antineoplastic and immunosuppressive drugs, initial encounter; Z79.01 Long term (current) use of anticoagulants; Z79.82 Long term (current) use of aspirin; Z79.899 Other long term (current) drug therapy; Z86.711 Personal history of pulmonary embolism; Z87.310 Personal history of (healed) osteoporosis fracture; Z87.891 Personal history of nicotine dependence
CPT/HCPCS: 36415; 71046; 74177; 80053; 81003; 83605; 83690; 85025; 87040; 87502; 93005; 96361; 96365; 99291

== ENCOUNTER 2021-05-31 21:08 | Inpatient (IN) | payer MEDICARE, BC ==
[2021-05-31] MEDS ORDERED: ONDANSETRON 4 MG/2 ML VIAL IVP STA (21:35)
[2021-05-31] MEDS ORDERED: SODIUM CHLORIDE 0.9% 1,000 ML IV STA ×2 (21:35)
[2021-05-31] MEDS ORDERED: MORPHINE SULFATE 4 MG/ML SYRINGE IVP STA (21:47)
--- NOTE | 2021-05-31 22:01 | ED ---
Nausea/Vomiting/Diarrhea HPI - General Chief complaint: Nausea/Vomiting/Diarrhea Stated complaint: Chills,diarrhea Time Seen by Provider: 05/31/21 21:35 Source: patient, RN notes reviewed, old records reviewed Mode of arrival: ambulatory Limitations: no limitations - History of Present Illness Initial comments: This is a 66-year-old male DF for evaluation patient has history of multiple myeloma coming in with abdominal pain nausea vomiting diarrhea. No blood in either. Patient has history of same. Patient has no recent travel history or sick contacts. Patient does have improvement just not feeling well. No sick contacts no travel history no fevers MD complaint: nausea, vomiting, diarrhea, abdominal pain -: days(s) Description of Vomiting: watery Description of Diarrhea: water, mucous Associated Abdominal Pain: Yes Location: diffuse Radiation: none Severity: moderate Severity scale (1-10): 5 Quality: cramping, aching Consistency: constant Improves with: none Worsens with: none Context: other (none) Associated Symptoms: myalgias, loss of appetite, nausea/vomiting, weakness - Related Data Home Medications Medication Instructions Recorded Confirmed oxyCODONE HCL [OxyIR] 5 mg PO QID PRN 02/05/17 05/31/21 Famotidine [Pepcid] 20 mg PO DAILY PRN 04/15/19 05/31/21 Gabapentin [Neurontin] 300 mg PO TID@0900,1830,2330 04/15/19 05/31/21 dexAMETHasone [Dexamethasone] 8 mg PO DIRECTED 04/15/19 05/31/21 Acyclovir 400 mg PO BID 08/24/19 05/31/21 Pomalyst 3mg 3 mg PO DIRECTED 08/24/19 05/31/21 Apixaban [Eliquis] 5 mg PO BID 10/03/19 05/31/21 Nitroglycerin Sl Tabs [Nitrostat] 0.4 mg SUBLINGUAL Q5M PRN 10/03/19 05/31/21 Calcium Carbonate/Vitamin D3 1 cap PO DAILY 01/10/20 05/31/21 [Calcium 600-Vit D3 20 Mcg (800 Iu)] Potassium Chloride ER [K-Dur 20] 20 meq PO DAILY 01/10/20 05/31/21 Furosemide [Lasix] 20 mg PO DAILY PRN 05/31/21 05/31/21 Ondansetron [Zofran] 4 mg PO Q4H PRN 05/31/21 05/31/21 Previous Rx's Medication Instructions Recorded Aspirin 81 mg PO DAILY #30 chewable 08/26/19 Allergies Allergy/AdvReac Type Severity Reaction Status Date / Time sulfamethoxazole Allergy Rash/Hives Verified 05/31/21 21:21 [From Bactrim] trimethoprim [From Bactrim] Allergy Rash/Hives Verified 05/31/21 21:21 Review of Systems ROS Statement: Those systems with pertinent positive or pertinent negative responses have been documented in the HPI. ROS Other: All systems not noted in ROS Statement are negative. 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, gait dysfunction-uses walker, bilateral pedal/ankle edema, PE 08/2019, chronic low back pain, past vertebral fractures, minimal CAD, shingelles twice, past R heel wound, elevated lipids in the past, History of Any Multi-Drug Resistant Organisms: None Reported Past Surgical History: Heart Catheterization, Orthopedic Surgery Additional Past Surgical History / Comment(s): excision of uvular lesion(benign) 2009, colonoscopy, dave knee arthroscopy, rt rotator cuff sx, moles removed from back(benign), bone marrow aspiration/bx, stem cell transplant 2015, Past Anesthesia/Blood Transfusion Reactions: No Reported Reaction Past Psychological History: No Psychological Hx Reported Smoking Status: Never smoker Past Alcohol Use History: None Reported Past Drug Use History: None Reported - Past Family History Father Family Medical History: Renal Disease, Vascular Disorder Additional Family Medical History / Comment(s): aaa. Father is . Mother Family Medical History: No Reported History Additional Family Medical History / Comment(s): mom is healthy General Exam Limitations: no limitations General appearance: alert, in no apparent distress Head exam: Present: atraumatic, normocephalic, normal inspection Eye exam: Present: normal appearance, PERRL, EOMI. Absent: scleral icterus, conjunctival injection, periorbital swelling ENT exam: Present: normal exam, mucous membranes moist Neck exam: Present: normal inspection. Absent: tenderness, meningismus, lymphadenopathy Respiratory exam: Present: normal lung sounds bilaterally. Absent: respiratory distress, wheezes, rales, rhonchi, stridor Cardiovascular Exam: Present: regular rate, normal rhythm, normal heart sounds. Absent: systolic murmur, diastolic murmur, rubs, gallop, clicks GI/Abdominal exam: Present: soft, normal bowel sounds. Absent: distended, tenderness, guarding, rebound, rigid Extremities exam: Present: normal inspection, full ROM, normal capillary refill. Absent: tenderness, pedal edema, joint swelling, calf tenderness Back exam: Present: normal inspection Neurological exam: Present: alert, oriented X3, CN II-XII intact Psychiatric exam: Present: normal affect, normal mood Skin exam: Present: warm, dry, intact, normal color. Absent: rash Course Vital Signs 05/31/21 05/31/21 21:15 23:00 Temperature 99.5 F Pulse Rate 98 87 Respiratory 20 18 Rate Blood Pressure 132/78 128/86 O2 Sat by Pulse 98 97 Oximetry - Reevaluation(s) Reevaluation #1: 05/31/21 23:14 Medical record is reviewed Reevaluation #2: 06/01/21 00:18 Patient does not feel any better currently. Feels weak and chills all symptoms mildly improved - Consultations Consultation #1: Spoke with patient's oncologist who agrees to obstipation Medical Decision Making - Medical Decision Making 83 male to the ER F for evaluation of weakness and chills abdominal pain nausea vomiting and diarrhea. Patient is leukopenic with chills, patient be admitted rule out bacteremia - Lab Data Result diagrams: 05/31/21 21:39 05/31/21 21:39 Lab Results 05/31/21 05/31/21 05/31/21 Range/Units 21:39 21:39 21:39 WBC 1.4 L* (3.8-10.6) k/uL RBC 4.46 (4.30-5.90) m/uL Hgb 13.8 (13.0-17.5) gm/dL Hct 41.8 (39.0-53.0) % MCV 93.6 (80.0-100.0) fL MCH 31.0 (25.0-35.0) pg MCHC 33.1 (31.0-37.0) g/dL RDW 17.1 H (11.5-15.5) % Plt Count 243 (150-450) k/uL MPV 7.3 Neutrophils % (Manual) 25 % Band Neuts % (Manual) 2 % Lymphocytes % (Manual) 57 % Monocytes % (Manual) 14 % Eosinophils % (Manual) 2 % Neutrophils # (Manual) 0.30 L* (1.3-7.7) k/uL Lymphocytes # (Manual) 0.80 L (1.0-4.8) k/uL Monocytes # (Manual) 0.20 (0-1.0) k/uL Eosinophils # (Manual) 0.03 (0-0.7) k/uL Nucleated RBCs 0 (0-0) /100 WBC Manual Slide Review Performed Anisocytosis Slight PT 10.0 (9.0-12.0) sec INR 0.9 (<1.2) APTT 22.0 (22.0-30.0) sec Sodium (137-145) mmol/L Potassium (3.5-5.1) mmol/L Chloride (98-107) mmol/L Carbon Dioxide (22-30) mmol/L Anion Gap mmol/L BUN (9-20) mg/dL Creatinine (0.66-1.25) mg/dL Est GFR (CKD-EPI)AfAm (>60 ml/min/1.73 sqM) Est GFR (CKD-EPI)NonAf (>60 ml/min/1.73 sqM) Glucose (74-99) mg/dL Plasma Lactic Acid Jeromy (0.7-2.0) mmol/L Calcium (8.4-10.2) mg/dL Phosphorus (2.5-4.5) mg/dL Magnesium (1.6-2.3) mg/dL Total Bilirubin (0.2-1.3) mg/dL AST (17-59) U/L ALT (4-49) U/L Alkaline Phosphatase (38-126) U/L Creatine Kinase (55-170) U/L Troponin I (0.000-0.034) ng/mL Total Protein (6.3-8.2) g/dL Albumin (3.5-5.0) g/dL Lipase (23-300) U/L Urine Color Yellow Urine Appearance Clear (Clear) Urine pH 6.0 (5.0-8.0) Ur Specific Brule 1.024 (1.001-1.035) Urine Protein Trace H (Negative) Urine Glucose (UA) Negative (Negative) Urine Ketones Negative (Negative) Urine Blood Trace H (Negative) Urine Nitrite Negative (Negative) Urine Bilirubin Negative (Negative) Urine Urobilinogen <2.0 (<2.0) mg/dL Ur Leukocyte Esterase Negative (Negative) Urine RBC 2 (0-5) /hpf Urine WBC 2 (0-5) /hpf Urine Mucus Occasional H (None) /hpf 05/31/21 05/31/21 05/31/21 Range/Units 21:39 21:39 21:39 WBC (3.8-10.6) k/uL RBC (4.30-5.90) m/uL Hgb (13.0-17.5) gm/dL Hct (39.0-53.0) % MCV (80.0-100.0) fL MCH (25.0-35.0) pg MCHC (31.0-37.0) g/dL RDW (11.5-15.5) % Plt Count (150-450) k/uL MPV Neutrophils % (Manual) % Band Neuts % (Manual) % Lymphocytes % (Manual) % Monocytes % (Manual) % Eosinophils % (Manual) % Neutrophils # (Manual) (1.3-7.7) k/uL Lymphocytes # (Manual) (1.0-4.8) k/uL Monocytes # (Manual) (0-1.0) k/uL Eosinophils # (Manual) (0-0.7) k/uL Nucleated RBCs (0-0) /100 WBC Manual Slide Review Anisocytosis PT (9.0-12.0) sec INR (<1.2) APTT (22.0-30.0) sec Sodium 135 L (137-145) mmol/L Potassium 3.7 (3.5-5.1) mmol/L Chloride 109 H (98-107) mmol/L Carbon Dioxide 18 L (22-30) mmol/L Anion Gap 8 mmol/L BUN 24 H (9-20) mg/dL Creatinine 0.85 (0.66-1.25) mg/dL Est GFR (CKD-EPI)AfAm >90 (>60 ml/min/1.73 sqM) Est GFR (CKD-EPI)NonAf >90 (>60 ml/min/1.73 sqM) Glucose 122 H (74-99) mg/dL Plasma Lactic Acid Jeromy 2.4 H* (0.7-2.0) mmol/L Calcium 8.2 L (8.4-10.2) mg/dL Phosphorus 2.2 L (2.5-4.5) mg/dL Magnesium 1.8 (1.6-2.3) mg/dL Total Bilirubin 0.4 (0.2-1.3) mg/dL AST 23 (17-59) U/L ALT 14 (4-49) U/L Alkaline Phosphatase 49 (38-126) U/L Creatine Kinase 27 L (55-170) U/L Troponin I <0.012 (0.000-0.034) ng/mL Total Protein 5.4 L (6.3-8.2) g/dL Albumin 3.3 L (3.5-5.0) g/dL Lipase 77 (23-300) U/L Urine Color Urine Appearance (Clear) Urine pH (5.0-8.0) Ur Specific Brule (1.001-1.035) Urine Protein (Negative) Urine Glucose (UA) (Negative) Urine Ketones (Negative) Urine Blood (Negative) Urine Nitrite (Negative) Urine Bilirubin (Negative) Urine Urobilinogen (<2.0) mg/dL Ur Leukocyte Esterase (Negative) Urine RBC (0-5) /hpf Urine WBC (0-5) /hpf Urine Mucus (None) /hpf - EKG Data -: EKG Interpreted by Me (EKG shows sinus rhythm 78 OH 164 QRS 84 QTc 437) - Radiology Data Radiology results: report reviewed (CT abdomen and pelvis negative for acute disease chest x-ray is pending), image reviewed Disposition Clinical Impression: Dehydration, History of multiple myeloma, Leukopenia Disposition: ADMITTED IP TO THIS HOSP Condition: Fair Is patient prescribed a controlled substance at d/c from ED?: No Referrals: Elkin Pierson MD [Primary Care Provider] - 1-2 days
[2021-05-31 22:17] LABS: Anisocytosis Slight; HCT 41.8 % (39.0-53.0); HGB 13.8 gm/dL (13.0-17.5); MCHC 33.1 g/dL (31.0-37.0); MCV 93.6 fL (80.0-100.0); Mean Platelet Volume 7.3; Platelet Count 243 k/uL (150-450); RBC 4.46 m/uL (4.30-5.90); RDW 17.1 % (11.5-15.5)
[2021-05-31 22:20] LABS: INR 0.9 (<1.2); WBC 1.4 k/uL (3.8-10.6)
[2021-05-31 22:22] LABS: ALT 14 U/L (4-49); AST 23 U/L (17-59); African American GFR (CKD) >90 (>60 ml/min/1.73 sqM); Albumin 3.3 g/dL (3.5-5.0); Alkaline Phosphatase 49 U/L (38-126); Anion Gap 8 mmol/L; Blood Urea Nitrogen 24 mg/dL (9-20); Calcium 8.2 mg/dL (8.4-10.2); Carbon Dioxide 18 mmol/L (22-30); Chloride 109 mmol/L (98-107); Creatine Kinase 27 U/L (55-170); Glucose 122 mg/dL (74-99); Lipase 77 U/L (23-300); Magnesium 1.8 mg/dL (1.6-2.3); Non-African American GFR(CKD) >90 (>60 ml/min/1.73 sqM); Phosphorus 2.2 mg/dL (2.5-4.5); Potassium 3.7 mmol/L (3.5-5.1); Sodium 135 mmol/L (137-145); Total Bilirubin 0.4 mg/dL (0.2-1.3); Total Protein 5.4 g/dL (6.3-8.2)
[2021-05-31 22:39] LABS: Neutrophils % (M) 25 %
[2021-05-31 22:41] LABS: Band Neutrophils % 2 %; Eosinophils # (M) 0.03 k/uL (0-0.7); Nucleated Red Blood Cells 0 /100 WBC (0-0); Total Cells Counted 100
[2021-05-31 22:53] LABS: Appearance,Urine Clear (Clear); Bilirubin,Urine Negative (Negative); Blood,Urine Trace (Negative); Color,Urine Yellow; Glucose,Urine (UA) Negative (Negative); Ketones,Urine Negative (Negative); Leukocyte Esterase,Urine Negative (Negative); Mucus,Urine Occasional /hpf; Nitrite,Urine Negative (Negative); Protein,Urine Trace (Negative); RBC,Urine 2 /hpf (0-5); Specific Gravity,Urine 1.024 (1.001-1.035); Urobilinogen,Urine <2.0 mg/dL (<2.0); WBC,Urine 2 /hpf (0-5)
--- NOTE | 2021-05-31 23:23 | CT ---
EXAMINATION TYPE: CT abdomen pelvis w con DATE OF EXAM: 05/31/2021 COMPARISON: 01/10/2020 HISTORY: pain CT DLP: 1413.2 mGycm Automated exposure control for dose reduction was used. CONTRAST: Performed with IV Contrast, patient injected with 100 mL of Isovue 300. Images obtained from the diaphragm to the floor the pelvis with IV contrast. There is some mild atelectasis at the lung bases. Heart size is normal. There is no pericardial effus ion. Liver and spleen appear intact. Bile ducts are not dilated. There is no pancreatic mass. Stomach is i ntact. Gallbladder shows a single small calcified gallstone. There is no adrenal mass. Kidneys show satisfactory contrast opacification. There is no hydronephrosi s. Delayed images show normal renal excretion. There is 1 cm cortical cyst posterior left kidney. The re is no retroperitoneal adenopathy. Ureters are not dilated. Bladder distends smoothly. There is no inguinal hernia. There is no free fluid in the pelvis. The appendix is posterior and appears normal. There is no mesenteric edema. There is no ascites or fr ee air. There is no bowel obstruction. There is osteopenia with compression deformity of numerous lumbar and thoracic vertebra. Lumbar verte bra show compression of 235%. There is 70% compression deformity of T11. There is some osteosclerosis in the right ilium near the acetabulum. There are some osteolytic areas in the medial left acetabula r region. There is lucency also in the medial left acetabular region. IMPRESSION: There is some mild subsegmental atelectasis at the lung bases not significantly different than old ex am. Small calcified gallstone unchanged. No acute abnormality within the abdomen pelvis. There are multiple compression fractures and osteolytic changes in the bony pelvis that are consisten t with multiple myeloma. This appears not significantly different than old exam.
[2021-06-01] MEDS ORDERED: NALOXONE 0.4 MG/ML 1 ML VIAL IV PRN (00:12)
[2021-06-01] MEDS ORDERED: MORPHINE SULFATE 4 MG/ML SYRINGE IV PRN (00:12)
[2021-06-01] MEDS ORDERED: IBUPROFEN 400 MG TAB PO PRN (00:12)
[2021-06-01] MEDS ORDERED: ONDANSETRON 4 MG/2 ML VIAL IVP PRN (00:12)
[2021-06-01] MEDS ORDERED: ACETAMINOPHEN TAB 325 MG TAB PO PRN (00:12)
[2021-06-01] MEDS ORDERED: FAMOTIDINE 20 MG TAB PO PRN (00:20)
[2021-06-01] MEDS ORDERED: NITROGLYCERIN SL TABS 0.4 MG TAB SUBLINGUAL PRN (00:20)
[2021-06-01] MEDS ORDERED: ONDANSETRON 4 MG TAB PO PRN (00:20)
[2021-06-01] MEDS ORDERED: FUROSEMIDE 20 MG TAB PO PRN (00:20)
[2021-06-01] MEDS: SODIUM CHLORIDE 0.9% 1,000 ML IV SCH ×3 (00:26→15:17)
--- NOTE | 2021-06-01 00:43 | XR ---
EXAMINATION TYPE: XR chest 1V portable DATE OF EXAM: 06/01/2021 COMPARISON: 01/10/2020 HISTORY: Fever TECHNIQUE: Single view FINDINGS: Heart and mediastinum are normal. Lungs are clear. Diaphragm is normal. Bony thorax is inta ct. IMPRESSION: Normal chest. No change.
[2021-06-01] MEDS: APIXABAN 5 MG TAB PO SCH ×3 (02:15→21:40)
[2021-06-01] MEDS: ACYCLOVIR 200 MG CAP PO SCH ×3 (02:15→21:40)
[2021-06-01] MEDS: ASPIRIN 81 MG PO SCH (08:28)
[2021-06-01] MEDS: GABAPENTIN 300 MG CAP PO SCH ×3 (08:29→23:43)
[2021-06-01] MEDS: PANTOPRAZOLE 40 MG/10 ML VIAL IV SCH (08:30)
[2021-06-01] MEDS ORDERED: dexAMETHasone 4 MG TAB PO PRN (09:00)
[2021-06-01] MEDS ORDERED: CALCIUM CARB-VIT D 500 MG-5 MCG TAB PO SCH (09:00)
[2021-06-01] MEDS ORDERED: POTASSIUM CHLORIDE ER 20 MEQ TAB.ER PO SCH (09:00)
[2021-06-01] MEDS: CEFEPIME 2 GM in SODIUM CHLORIDE 0.9% 100 ML IVPB SCH ×2 (10:40→17:53)
[2021-06-01 12:04] LABS: Anisocytosis Slight; Basophils % (A) 1 %; Eosinophils # (A) 0.1 k/uL (0-0.7); Eosinophils % (A) 7 %; HCT 34.1 % (39.0-53.0); Hypochromasia Slight; Lymphocytes # (A) 0.2 k/uL (1.0-4.8); Lymphocytes % (A) 14 %; MCH 31.1 pg (25.0-35.0); MCHC 32.2 g/dL (31.0-37.0); MCV 96.6 fL (80.0-100.0); Macrocytosis Slight; Mean Platelet Volume 7.9; Monocytes # (A) 0.4 k/uL (0-1.0); Monocytes % (A) 26 %; Neutrophils # (A) 0.7 k/uL (1.3-7.7); Neutrophils % (A) 46 %; Platelet Count 202 k/uL (150-450); RBC 3.54 m/uL (4.30-5.90); RDW 17.3 % (11.5-15.5); WBC 1.6 k/uL (3.8-10.6)
[2021-06-01 12:04] LABS: ALT 11 U/L (4-49); AST 16 U/L (17-59); African American GFR (CKD) >90 (>60 ml/min/1.73 sqM); Albumin 2.4 g/dL (3.5-5.0); Albumin/Globulin Ratio 1.2; Alkaline Phosphatase 33 U/L (38-126); Anion Gap 2 mmol/L; Blood Urea Nitrogen 22 mg/dL (9-20); Carbon Dioxide 21 mmol/L (22-30); Chloride 113 mmol/L (98-107); Glucose 90 mg/dL (74-99); Magnesium 1.9 mg/dL (1.6-2.3); Non-African American GFR(CKD) >90 (>60 ml/min/1.73 sqM); Potassium 3.6 mmol/L (3.5-5.1); Sodium 136 mmol/L (137-145); Total Bilirubin 0.1 mg/dL (0.2-1.3); Total Protein 4.4 g/dL (6.3-8.2)
[2021-06-01 12:59] LABS: Band Neutrophils % 4 %; Eosinophils # (M) 0.08 k/uL (0-0.7); Lymphocytes # (M) 0.51 k/uL (1.0-4.8); Monocytes # (M) 0.13 k/uL (0-1.0); Neutrophils % (M) 51 %; Nucleated Red Blood Cells 0 /100 WBC (0-0); Polychromasia Present; Total Cells Counted 100
--- NOTE | 2021-06-01 13:02 | P.CONS ---
<Nicolasa Hendricks - Last Filed: 06/01/21 15:01> History of Present Illness - Reason for Consult Consult date: 06/01/21 Multiple Myeloma Requesting physician: Elkin Nuñez - Chief Complaint N/V - History of Present Illness This is a very nice patient who presented with progressive back pain,started around ,he was evaluated by orthopedic,had XR of the spine which revealed compression fracture. On 11/28/2015,limited bone scan revealed osteoporotic compression fracture at L1-L2. On 12/17/2015,CMP revealed significantly elevated total protein (11.4dm/dl),calcium level 10.2,creatinine 1.18,CBC revealed hemoglobin of 9.4gm/dl,PSA 0.5,SPEP and immunofixation revealed IgG lambda monoclonal protein,M-protein of 6.8gm/d,serum lambda level 4.14mg/dl,kappa/lambda ratio 0.04. On 12/27/2015,CT scan of lumbar spine revealed demineralization and compression fracture at L1. On 12/29/2015,MRI of thoracic and lumbar spine multiple lytic lesions,compression at L1,no soft tissue component or mass effects (It was reviewed by myself and Dr Jackson in radiology). He was admitted to [facility] on 12/27/2015,for back pain and discharged with supportive brace,he also received a dose of pamidronate. On 01/01/2016,SPEP and immunofixation revealed IgG Lambda M-protein of 4.8gm/dl,IgG 7191mg/dl,CMP revealed normal calcium and creatinine,normal [place]/lambda ratio,B2 microglobin level 2.8,serum albumin 2.6. 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 He started RVD on 01/11/2016. On 01/31/2016,M-spike was 0.88gm/dl,IgG level 1410 mg/dl.Normal calcium and creatinine. On 02/20/2016,M-spike was down to 0.4,IgG 692mg/dl,normal calcium and creatinine. He completed 4 cycles on 03/28/2016. Repeat bone marrow biopsy on 05/04/2016 revealed no evidence of myeloma morphologically,however,flowcytometry revealed minimal residual disease. He was in process of proceeding with autologous stem cell transplant,however,he developed numbness in his feet,then significant weakness in both legs,right worse than left,he was admitted [facility] on 04/20/2016 due to hyponatremia,which resolved. Repeat MRI of thoracic and lumbar spine on 04/28/2016 revealed new compression fracture at T11,he was seen by Dr Oneil on 04/29/2016 and physical therapy was recommended. On 04/28/2016,M-protein was 0.3gm/dl,sodium was 137. On 06/03/2016,M-protein was 0.27gm/dl. On 06/09/2016,EGD/Colonoscopy revealed mild gastritis. Subsequently,he underwent autologous stem cell transplant on 08/27/2016. On 11/04/2016,M-protein was 0.2gm/dl On 01/02/2017,SPEP and immunofixation revealed no M-protein,normal kappa/lambda ratio and normal CBC,CMP. On 01/14/2017,repeat MRI of spine revealed old compression fracture and arthrtic changes. He started maintenance revlimid 5 mg/day by the end of . He started to have worsening back pain in January/2019,he was referred to have MRI of his lumbar spine,which was done on 03/10/2019 which revealed progressing soft tissue mass at L2 causing compression of the thecal sac and L3 nerve root and new paraspinal soft tissue mass at L4-L5 for which he had palliative XRT On 03/08/2019,M-protein was up to 2.2gm/dl,Ig level up to 3019mg/dl,free lambda level 148.9mg/L,ratio of 0.04,normal creatinine and calcium,repeat skeletal bone survey revealed no changes. On 04/07/2019,he started darzalex/pomalyst/decadron However,he was admitted to hospital in early April/2019,for disseminated zoster On 10/25/2019,SPEP and immunofixation revealed 2 small spike,M-protein was 0.09 gm/dl,serum IgG 282mg/dl.serum free lambda 0.65,kappa/lambda ratio 0.04 He continues to have back pain but controlled and stable,ambulating well,he is tired,has mild stable peripheral neuropathy,active and gained weight,had swelling in Unfortunetly I am unable to connect to our office chart to find the most recent treatment and clinical status of Mr. Paul. He is on Pomalyst, and with his current neutropenia we will hold at this time. 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, gait dysfunction-uses walker, bilateral pedal/ankle edema, PE 08/2019, chronic low back pain, past vertebral fractures, minimal CAD, shingelles twice, past R heel wound, elevated lipids in the past, History of Any Multi-Drug Resistant Organisms: None Reported Past Surgical History: Heart Catheterization, Orthopedic Surgery Additional Past Surgical History / Comment(s): excision of uvular lesion(benign) 2009, colonoscopy, dave knee arthroscopy, rt rotator cuff sx, moles removed from back(benign), bone marrow aspiration/bx, stem cell transplant 2015, Past Anesthesia/Blood Transfusion Reactions: No Reported Reaction Past Psychological History: No Psychological Hx Reported Additional Psychological History / Comment(s): lives at home with his Blossom and 1 adult son. 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 He has a rollator walker. Smoking Status: Never smoker Past Alcohol Use History: None Reported Additional Past Alcohol Use History / Comment(s): started smoking age 17 and quit age 27, smoked 1ppd Past Drug Use History: None Reported Additional Drug Use History / Comment(s): Pt states that he occasionally smokes marijuana to help with pain - Past Family History Father Family Medical History: Renal Disease, Vascular Disorder Additional Family Medical History / Comment(s): aaa. Father is . Mother Family Medical History: No Reported History Additional Family Medical History / Comment(s): mom is healthy Medications and Allergies Home Medications Medication Instructions Recorded Confirmed Type oxyCODONE HCL [OxyIR] 5 mg PO QID PRN 02/05/17 05/31/21 History Famotidine [Pepcid] 20 mg PO DAILY PRN 04/15/19 05/31/21 History Gabapentin [Neurontin] 300 mg PO TID@0900,1830,2330 04/15/19 05/31/21 History dexAMETHasone [Dexamethasone] 8 mg PO DIRECTED 04/15/19 05/31/21 History Acyclovir 400 mg PO BID 08/24/19 05/31/21 History Pomalyst 3mg 3 mg PO DIRECTED 08/24/19 05/31/21 History Aspirin 81 mg PO DAILY #30 chewable 08/26/19 05/31/21 Rx Apixaban [Eliquis] 5 mg PO BID 10/03/19 05/31/21 History Nitroglycerin Sl Tabs [Nitrostat] 0.4 mg SUBLINGUAL Q5M PRN 10/03/19 05/31/21 History Calcium Carbonate/Vitamin D3 1 cap PO DAILY 01/10/20 05/31/21 History [Calcium 600-Vit D3 20 Mcg (800 Iu)] Potassium Chloride ER [K-Dur 20] 20 meq PO DAILY 01/10/20 05/31/21 History Furosemide [Lasix] 20 mg PO DAILY PRN 05/31/21 05/31/21 History Ondansetron [Zofran] 4 mg PO Q4H PRN 05/31/21 05/31/21 History Allergies Allergy/AdvReac Type Severity Reaction Status Date / Time sulfamethoxazole Allergy Rash/Hives Verified 05/31/21 21:21 [From Bactrim] trimethoprim [From Bactrim] Allergy Rash/Hives Verified 05/31/21 21:21 Physical Exam Vitals: Vital Signs Temp Pulse Pulse Resp BP BP BP 06/01/21 05:39 98 F 61 20 91/53 06/01/21 01:55 98.3 F 66 20 113/75 06/01/21 01:15 86 18 118/76 05/31/21 23:00 87 18 128/86 05/31/21 21:15 99.5 F 98 20 132/78 Pulse Ox 06/01/21 05:39 96 06/01/21 01:55 95 06/01/21 01:15 97 05/31/21 23:00 97 05/31/21 21:15 98 Intake and Output 05/31/21 06/01/21 06/01/21 22:59 06:59 14:59 Intake Total 100 Balance 100 Intake: Oral 100 Other: # Voids 1 Weight 102.058 kg 102.058 kg Gen: Alert and oriented, NAD HEad: NCAT Neck: Supple Lungs: Diminished bibasilar, no wheezes Heart: tachycardia Abdomen: Tender, non distended Ext: Pedal edema or rash Neuro: non-focal Results CBC & Chem 7: 06/01/21 11:17 06/01/21 11:22 Labs: Abnormal Lab Results - Last 24 Hours (Table) 05/31/21 05/31/21 05/31/21 Range/Units 21:39 21:39 21:39 WBC 1.4 L* (3.8-10.6) k/uL RDW 17.1 H (11.5-15.5) % Neutrophils # (Manual) 0.30 L* (1.3-7.7) k/uL Lymphocytes # (Manual) 0.80 L (1.0-4.8) k/uL Sodium 135 L (137-145) mmol/L Chloride 109 H (98-107) mmol/L Carbon Dioxide 18 L (22-30) mmol/L BUN 24 H (9-20) mg/dL Glucose 122 H (74-99) mg/dL Plasma Lactic Acid Jeromy (0.7-2.0) mmol/L Calcium 8.2 L (8.4-10.2) mg/dL Phosphorus 2.2 L (2.5-4.5) mg/dL Creatine Kinase 27 L (55-170) U/L Total Protein 5.4 L (6.3-8.2) g/dL Albumin 3.3 L (3.5-5.0) g/dL Urine Protein Trace H (Negative) Urine Blood Trace H (Negative) Urine Mucus Occasional H (None) /hpf 05/31/21 Range/Units 21:39 WBC (3.8-10.6) k/uL RDW (11.5-15.5) % Neutrophils # (Manual) (1.3-7.7) k/uL Lymphocytes # (Manual) (1.0-4.8) k/uL Sodium (137-145) mmol/L Chloride (98-107) mmol/L Carbon Dioxide (22-30) mmol/L BUN (9-20) mg/dL Glucose (74-99) mg/dL Plasma Lactic Acid Jeromy 2.4 H* (0.7-2.0) mmol/L Calcium (8.4-10.2) mg/dL Phosphorus (2.5-4.5) mg/dL Creatine Kinase (55-170) U/L Total Protein (6.3-8.2) g/dL Albumin (3.5-5.0) g/dL Urine Protein (Negative) Urine Blood (Negative) Urine Mucus (None) /hpf Assessment and Plan (1) Multiple myeloma Current Visit: Yes Status: Acute Code(s): C90.00 - MULTIPLE MYELOMA NOT HAVING ACHIEVED REMISSION SNOMED Code(s): 246224006 (2) Leukopenia Current Visit: Yes Status: Acute Code(s): D72.819 - DECREASED WHITE BLOOD CELL COUNT, UNSPECIFIED SNOMED Code(s): 53284021 (3) Anemia Current Visit: No Status: Acute Priority: High Code(s): D64.9 - ANEMIA, UNSPECIFIED SNOMED Code(s): 304882860 Plan: Assessment and Recommendations: Neutropenia: - Secondary to treatment of Myeloma and likely exacerbated with infectious or inflammatory acute event - Hold Pomalyst until recovery of counts and treatment of underlying acute hospitalizatized concern - Full Patino Cultures Pending Multiple Myeloma: - Hold Treatment at this time until blood counts and clinical improvements seen Normocytic Anemia: - Secondary to myeloma and Chemotherapy Await full patino cultures (Blood cultures ordered today, therefore since he likely received antibiotics first may not provide additional information) ID consultation Unable confirm current status in office MAR (Unable to access the system is undergoing updates this weekend), I did speak with his primary oncologist Dr. Browning and ok to move forward with growth factor and agrees to hold POmalyst. <Jackie Gilbert - Last Filed: 06/01/21 15:52> History of Present Illness - History of Present Illness Pt comes into ED for chills and fatigue. Work up with neutropenia, ANC 0.3, hemoglobin 13 which is above his baseline. No fevers in ED. Hydrated and admitted for monitoring. Cultures obtained and he was started on broad-spectrum antibiotics. Infectious disease consulted. He is feeling better since being on hydration today. He has been having diarrhea and having increased weakness for the past week or so. Under Darzalex as well as, listed and Decadron. Last her Darzalex was around Thursday05/20/21. Physical Exam Vitals: Vital Signs Temp Pulse Pulse Resp BP BP BP 06/01/21 12:16 98.3 F 57 L 17 108/72 06/01/21 05:39 98 F 61 20 91/53 06/01/21 01:55 98.3 F 66 20 113/75 06/01/21 01:15 86 18 118/76 05/31/21 23:00 87 18 128/86 05/31/21 21:15 99.5 F 98 20 132/78 Pulse Ox 06/01/21 12:16 99 06/01/21 05:39 96 06/01/21 01:55 95 06/01/21 01:15 97 05/31/21 23:00 97 05/31/21 21:15 98 Intake and Output 05/31/21 06/01/21 06/01/21 22:59 06:59 14:59 Intake Total 100 Balance 100 Intake: Oral 100 Other: # Voids 1 Weight 102.058 kg 102.058 kg Gen: Alert and oriented, NAD Head: NCAT Neck: Supple Lungs: No respiratory distress. Heart: normal rate. Abdomen: Soft, non distended Ext: Pedal edema Neuro: non-focal, alert/oriented Psych: appropriate affect Results CBC & Chem 7: 06/01/21 11:17 06/01/21 11:22 Labs: Abnormal Lab Results - Last 24 Hours (Table) 05/31/21 05/31/21 05/31/21 Range/Units 21:39 21:39 21:39 WBC 1.4 L* (3.8-10.6) k/uL RBC (4.30-5.90) m/uL Hgb (13.0-17.5) gm/dL Hct (39.0-53.0) % RDW 17.1 H (11.5-15.5) % Neutrophils # (1.3-7.7) k/uL Neutrophils # (Manual) 0.30 L* (1.3-7.7) k/uL Lymphocytes # (1.0-4.8) k/uL Lymphocytes # (Manual) 0.80 L (1.0-4.8) k/uL Sodium 135 L (137-145) mmol/L Chloride 109 H (98-107) mmol/L Carbon Dioxide 18 L (22-30) mmol/L BUN 24 H (9-20) mg/dL Glucose 122 H (74-99) mg/dL Plasma Lactic Acid Jeromy (0.7-2.0) mmol/L Calcium 8.2 L (8.4-10.2) mg/dL Phosphorus 2.2 L (2.5-4.5) mg/dL Total Bilirubin (0.2-1.3) mg/dL AST (17-59) U/L Alkaline Phosphatase (38-126) U/L Creatine Kinase 27 L (55-170) U/L Total Protein 5.4 L (6.3-8.2) g/dL Albumin 3.3 L (3.5-5.0) g/dL Urine Protein Trace H (Negative) Urine Blood Trace H (Negative) Urine Mucus Occasional H (None) /hpf 05/31/21 06/01/21 06/01/21 Range/Units 21:39 11:17 11:22 WBC 1.6 L (3.8-10.6) k/uL RBC 3.54 L (4.30-5.90) m/uL Hgb 11.0 L (13.0-17.5) gm/dL Hct 34.1 L (39.0-53.0) % RDW 17.3 H (11.5-15.5) % Neutrophils # 0.7 L (1.3-7.7) k/uL Neutrophils # (Manual) 0.80 L (1.3-7.7) k/uL Lymphocytes # 0.2 L (1.0-4.8) k/uL Lymphocytes # (Manual) 0.51 L (1.0-4.8) k/uL Sodium 136 L (137-145) mmol/L Chloride 113 H (98-107) mmol/L Carbon Dioxide 21 L (22-30) mmol/L BUN 22 H (9-20) mg/dL Glucose (74-99) mg/dL Plasma Lactic Acid Jeromy 2.4 H* (0.7-2.0) mmol/L Calcium 7.0 L (8.4-10.2) mg/dL Phosphorus (2.5-4.5) mg/dL Total Bilirubin 0.1 L (0.2-1.3) mg/dL AST 16 L (17-59) U/L Alkaline Phosphatase 33 L (38-126) U/L Creatine Kinase (55-170) U/L Total Protein 4.4 L (6.3-8.2) g/dL Albumin 2.4 L (3.5-5.0) g/dL Urine Protein (Negative) Urine Blood (Negative) Urine Mucus (None) /hpf Chest x-ray: report reviewed CT scan - abdomen: report reviewed CT scan - pelvis: report reviewed Assessment and Plan Assessment: 1. Neutropenia due to chemotherapy 2. Chills 3. MM 4. Stable anemia Plan: Mr. Paul is a very pleasant 66 yo male with history of MM on treatment with pomalyst/dex who is here for chills and lethargy, found to be dehydrated and with ANC 0.3. Hgb 13 on presentation, decreased to what appears to be his baseline of 11's after hydration. No fevers since presentation, however with his symptoms and severe neutropenia, needs to be treated for febrile neutropenia with broad spectrum antibiotics abd ID consultation. Patino culture pending. Although no fevers he did have rigors at home prior to presenation. No G-CSF for now as his ANC is improved today as compared to yesterday. Hold pomalyst until cytopenia's improve. Discussed with pt and family at [facility] and they are agreeable to the plan.
[2021-06-01] MEDS: MULTIVITAMINS, THERA 1 EACH TAB PO SCH (13:30)
[2021-06-01] MEDS: POTASSIUM CHLORIDE ER 20 MEQ TAB.ER PO SCH (13:30)
[2021-06-01] MEDS: CALCIUM CARB-VIT D 500 MG-5 MCG TAB PO SCH (13:30)
--- NOTE | 2021-06-01 15:40 | HP ---
HISTORY AND PHYSICAL DATE OF SERVICE: 06/01/2021 CHIEF COMPLAINTS: Weakness, abdominal pain, leukopenia and diarrhea. HISTORY OF PRESENT ILLNESS: This 66-year-old gentleman with a past medical history of CAD, history of hyperlipidemia, history of pulmonary embolism, recently diagnosed multiple myeloma, was treated with chemotherapy and immunotherapy. The patient had a stem cell transplant in 2016. Last chemo was on 05/20/2021. The patient also has bilateral peripheral neuropathy. The patient is followed by Dr. Avelar as well as Dr. Pierson in the outpatient setting. Patient had abdominal discomfort, some diarrhea, pain, weakness. The patient [facility] and was admitted for evaluation and treatment. The patient had leukopenia. Abdominal and pelvis CT scan was done which I reviewed personally which showed evidence of subsegmental atelectasis as well as calcified gallstones and multiple compression fractures, osteolytic changes in the bone suggestive of multiple myeloma. No other acute findings are noted. There is no history of any fever, rigors or chills. No history of headache, loss of consciousness, seizures. PAST MEDICAL HISTORY: History of CAD, history of multiple myeloma, pulmonary embolism, history of cardiac catheterization. HOME MEDICATIONS: Home medications are Oxy-IR 5 mg q.i.d. p.r.n., dexamethasone, potassium chloride, Pomalyst, Zofran, Nitrostat, Neurontin, Lasix, Pepcid, calcium carbonate, aspirin, Eliquis, acyclovir. Doses are reviewed. ALLERGIES: BACTRIM. FAMILY HISTORY: History of renal disease, vascular disease, abdominal aortic aneurysm. SOCIAL HISTORY: Previous history of smoking. No history of alcohol intake. REVIEW OF SYSTEMS: ENT: No diminished hearing. No diminished vision. CARDIOVASCULAR SYSTEM: No angina, palpitations. RESPIRATORY SYSTEM: As mentioned earlier. GI: As mentioned earlier. : As mentioned earlier. NERVOUS SYSTEM: No numbness, weakness. ALLERGY/IMMUNOLOGY: No asthma or hay fever. MUSCULOSKELETAL: As mentioned earlier. HEMATOLOGY/ONCOLOGY: As mentioned earlier. ENDOCRINE: No history of diabetes or hypothyroidism. CONSTITUTIONAL: As mentioned earlier. DERMATOLOGY: Negative. RHEUMATOLOGY: Negative. PSYCHIATRY: As mentioned earlier. PHYSICAL EXAMINATION: Patient is alert and oriented x3. Pulse is 57, blood pressure 108/72, respiration 17, temperature 98.3, pulse ox 99% on room air. HEENT: Conjunctivae normal. Oral mucosa moist. NECK: No jugular venous distention. No carotid bruit. No lymph node enlargement. CARDIOVASCULAR SYSTEM: S1, S2 muffled. No S3. No S4. RESPIRATORY: Breath sounds diminished at the bases. A few rhonchi. No crackles. ABDOMEN: Soft, obese. Mild diffuse discomfort. No mass palpable. No guarding. No rigidity. LEGS: No edema. No swelling. NERVOUS SYSTEM: Higher functions as mentioned earlier. Moves all 4 limbs. No focal motor or sensory deficit. LYMPHATICS: No lymph node palpable in neck, axillae or groin. SKIN: No ulcer, rash, bleeding. JOINTS: No active deforming arthropathy. LABS: WBC was 1.4, currently 1.6. Hemoglobin is 11 and plasma lactic acid is 2.4. Sodium 135. ASSESSMENT: 1. Abdominal pain and diarrhea; possible acute neutropenic sepsis, present on admission. 2. Multiple myeloma, on chemotherapy. 3. Neutropenia and anemia secondary to malignancy or chemotherapy. 4. Hyponatremia. 5. Decreased carbon dioxide. 6. Elevated lactic acid, possibly secondary to sepsis, present on admission. 7. History of coronary artery disease. 8. History of pulmonary embolism. 9. Hyperlipidemia. 10.History of stem cell transplant. 11.History of bilateral peripheral neuropathy. 12.History of gait dysfunction. 13.History of degenerative joint disease and chronic low back pain. 14.Obesity with body mass index of 36.9. 15.FULL CODE. RECOMMENDATIONS AND DISCUSSION: In this 66-year-old gentleman who presented with multiple complex medical issues, we will monitor the patient closely, continue the current medications, continue with symptomatic treatment. Will initiate broad-spectrum IV antibiotics. Obtain cultures. Resume the home medications. Hematology/oncology evaluation. IV fluids cautiously. Guarded prognosis because of multiple complex medical issues. Further recommendations to follow. MMODL / IJN: [id number] /
[2021-06-01] MEDS ORDERED: FILGRASTIM-SNDZ 480 MCG/0.8 ML SYRINGE SQ SCH (18:00)
--- NOTE | 2021-06-01 23:30 | P.CONS ---
History of Present Illness - Reason for Consult Consult date: 06/01/21 febrile neutropenia Requesting physician: Nicolasa Hendricks - Chief Complaint vomiting and diarrhea x few days - History of Present Illness History of present illness : Patient is 66-year-old male with a past medical history significant for multiple myeloma patient presenting to the ER last night for evaluation of nausea vomiting and diarrhea the symptom has been going on for for 2 days before presentation to the hospital patient did have a multiple episodes of loose stools no blood or mucus in the stools he did have some crampy abdominal pain and did have nausea and vomiting patient did not recall eating anything unusual and none of the other family member having similar symptoms on presentation to the hospital the patient did have low-grade fever of 99.5 F patient did have a leukopenia with a white count of 1.4 and neutropenia kidney function was normal he did have elevated lactic acid level exams are normal urine was negative sutton PCR was negative patient did have a CT of abdominal pelvis no acute abnormality patient has been admitted to the hospital he was started on cefepime infectious disease was consulted for further management Review of system: Positive point has been mentioned in HPI rest of the systems are negative Past medical history : Reviewed, documented below Past surgical history : Reviewed, documented below Social history: Reviewed, documented below Medications: Reviewed, as documented below GENERAL DESCRIPTION: Elderly male lying in bed, no distress. No tachypnea or accessory muscle of respiration use. HEENT: Shows Pallor , no scleral icterus. Oral mucous membrane is dry. NECK: Trachea central, no thyromegaly. LUNGS: Unlabored breathing. Clear to auscultation anteriorly. No wheeze or crackle. HEART: S1, S2, regular rate and rhythm. ABDOMEN: Soft, no tenderness , guarding or rigidity EXTREMITIES: No edema of feet. SKIN: No rash, no masses palpable. NEUROLOGICAL: The patient is awake, alert, oriented x3, mood and affect normal. LABS AND RADIOLOGY: Reviewed results see below Assessment : Patient presented to hospital with intractable diarrhea vomiting as of gastric upset in this patient who did have underlying multiple myeloma with evidence of leukopenia and did have low-grade fever likely from enteric gram- negative pathogen, CT was negative for any intra-abdominal abscess or significant colitis Plan: 1-we will wait for stool culture and stool for C. difficile 2-patient to continue with the cefepime while waiting for the culture to finalize 3-Questran for symptomatic relief and avoid antimotility agent We will follow on clinical condition and cultures to further adjust medication if needed Thank you for this consultation we will follow the patient along with you 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, gait dysfunction-uses walker, bilateral pedal/ankle edema, PE 08/2019, chronic low back pain, past vertebral fractures, minimal CAD, shingelles twice, past R heel wound, elevated lipids in the past, History of Any Multi-Drug Resistant Organisms: None Reported Past Surgical History: Heart Catheterization, Orthopedic Surgery Additional Past Surgical History / Comment(s): excision of uvular lesion(benign) 2009, colonoscopy, dave knee arthroscopy, rt rotator cuff sx, moles removed from back(benign), bone marrow aspiration/bx, stem cell transplant 2015, Past Anesthesia/Blood Transfusion Reactions: No Reported Reaction Past Psychological History: No Psychological Hx Reported Additional Psychological History / Comment(s): lives at home with his Blossom and 1 adult son. 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 He has a rollator walker. Smoking Status: Never smoker Past Alcohol Use History: None Reported Additional Past Alcohol Use History / Comment(s): started smoking age 17 and quit age 27, smoked 1ppd Past Drug Use History: None Reported Additional Drug Use History / Comment(s): Pt states that he occasionally smokes marijuana to help with pain - Past Family History Father Family Medical History: Renal Disease, Vascular Disorder Additional Family Medical History / Comment(s): aaa. Father is . Mother Family Medical History: No Reported History Additional Family Medical History / Comment(s): mom is healthy Medications and Allergies Home Medications Medication Instructions Recorded Confirmed Type oxyCODONE HCL [OxyIR] 5 mg PO QID PRN 02/05/17 05/31/21 History Famotidine [Pepcid] 20 mg PO DAILY PRN 04/15/19 05/31/21 History Gabapentin [Neurontin] 300 mg PO TID@0900,1830,2330 04/15/19 05/31/21 History dexAMETHasone [Dexamethasone] 8 mg PO DIRECTED 04/15/19 05/31/21 History Acyclovir 400 mg PO BID 08/24/19 05/31/21 History Pomalyst 3mg 3 mg PO DIRECTED 08/24/19 05/31/21 History Aspirin 81 mg PO DAILY #30 chewable 08/26/19 05/31/21 Rx Apixaban [Eliquis] 5 mg PO BID 10/03/19 05/31/21 History Nitroglycerin Sl Tabs [Nitrostat] 0.4 mg SUBLINGUAL Q5M PRN 10/03/19 05/31/21 History Calcium Carbonate/Vitamin D3 1 cap PO DAILY 01/10/20 05/31/21 History [Calcium 600-Vit D3 20 Mcg (800 Iu)] Potassium Chloride ER [K-Dur 20] 20 meq PO DAILY 01/10/20 05/31/21 History Furosemide [Lasix] 20 mg PO DAILY PRN 05/31/21 05/31/21 History Ondansetron [Zofran] 4 mg PO Q4H PRN 05/31/21 05/31/21 History Allergies Allergy/AdvReac Type Severity Reaction Status Date / Time sulfamethoxazole Allergy Rash/Hives Verified 05/31/21 21:21 [From Bactrim] trimethoprim [From Bactrim] Allergy Rash/Hives Verified 05/31/21 21:21 Physical Exam Vitals: Vital Signs Temp Pulse Pulse Resp BP BP BP 06/01/21 12:16 98.3 F 57 L 17 108/72 06/01/21 05:39 98 F 61 20 91/53 06/01/21 01:55 98.3 F 66 20 113/75 06/01/21 01:15 86 18 118/76 05/31/21 23:00 87 18 128/86 05/31/21 21:15 99.5 F 98 20 132/78 Pulse Ox 06/01/21 12:16 99 06/01/21 05:39 96 06/01/21 01:55 95 06/01/21 01:15 97 05/31/21 23:00 97 05/31/21 21:15 98 Intake and Output 05/31/21 06/01/21 06/01/21 22:59 06:59 14:59 Intake Total 100 Balance 100 Intake: Oral 100 Other: # Voids 1 Weight 102.058 kg 102.058 kg Results CBC & Chem 7: 06/01/21 11:17 06/01/21 11:22 Labs: Abnormal Lab Results - Last 24 Hours (Table) 05/31/21 05/31/21 05/31/21 Range/Units 21:39 21:39 21:39 WBC 1.4 L* (3.8-10.6) k/uL RBC (4.30-5.90) m/uL Hgb (13.0-17.5) gm/dL Hct (39.0-53.0) % RDW 17.1 H (11.5-15.5) % Neutrophils # (1.3-7.7) k/uL Neutrophils # (Manual) 0.30 L* (1.3-7.7) k/uL Lymphocytes # (1.0-4.8) k/uL Lymphocytes # (Manual) 0.80 L (1.0-4.8) k/uL Sodium 135 L (137-145) mmol/L Chloride 109 H (98-107) mmol/L Carbon Dioxide 18 L (22-30) mmol/L BUN 24 H (9-20) mg/dL Glucose 122 H (74-99) mg/dL Plasma Lactic Acid Jeromy (0.7-2.0) mmol/L Calcium 8.2 L (8.4-10.2) mg/dL Phosphorus 2.2 L (2.5-4.5) mg/dL Total Bilirubin (0.2-1.3) mg/dL AST (17-59) U/L Alkaline Phosphatase (38-126) U/L Creatine Kinase 27 L (55-170) U/L Total Protein 5.4 L (6.3-8.2) g/dL Albumin 3.3 L (3.5-5.0) g/dL Urine Protein Trace H (Negative) Urine Blood Trace H (Negative) Urine Mucus Occasional H (None) /hpf 05/31/21 06/01/21 06/01/21 Range/Units 21:39 11:17 11:22 WBC 1.6 L (3.8-10.6) k/uL RBC 3.54 L (4.30-5.90) m/uL Hgb 11.0 L (13.0-17.5) gm/dL Hct 34.1 L (39.0-53.0) % RDW 17.3 H (11.5-15.5) % Neutrophils # 0.7 L (1.3-7.7) k/uL Neutrophils # (Manual) 0.80 L (1.3-7.7) k/uL Lymphocytes # 0.2 L (1.0-4.8) k/uL Lymphocytes # (Manual) 0.51 L (1.0-4.8) k/uL Sodium 136 L (137-145) mmol/L Chloride 113 H (98-107) mmol/L Carbon Dioxide 21 L (22-30) mmol/L BUN 22 H (9-20) mg/dL Glucose (74-99) mg/dL Plasma Lactic Acid Jeromy 2.4 H* (0.7-2.0) mmol/L Calcium 7.0 L (8.4-10.2) mg/dL Phosphorus (2.5-4.5) mg/dL Total Bilirubin 0.1 L (0.2-1.3) mg/dL AST 16 L (17-59) U/L Alkaline Phosphatase 33 L (38-126) U/L Creatine Kinase (55-170) U/L Total Protein 4.4 L (6.3-8.2) g/dL Albumin 2.4 L (3.5-5.0) g/dL Urine Protein (Negative) Urine Blood (Negative) Urine Mucus (None) /hpf
[2021-06-02 00:58] LABS: Appearance,Urine Clear (Clear); Bilirubin,Urine Negative (Negative); Blood,Urine Negative (Negative); Color,Urine Yellow; Glucose,Urine (UA) Negative (Negative); Ketones,Urine Negative (Negative); Leukocyte Esterase,Urine Negative (Negative); Nitrite,Urine Negative (Negative); Protein,Urine Trace (Negative); Urobilinogen,Urine <2.0 mg/dL (<2.0)
[2021-06-02] MEDS: CEFEPIME 2 GM in SODIUM CHLORIDE 0.9% 100 ML IVPB SCH ×3 (02:04→17:04)
[2021-06-02] MEDS: ACYCLOVIR 200 MG CAP PO SCH ×2 (08:37→20:05)
[2021-06-02] MEDS: APIXABAN 5 MG TAB PO SCH ×2 (08:37→20:05)
[2021-06-02] MEDS: ASPIRIN 81 MG PO SCH (08:38)
[2021-06-02] MEDS: GABAPENTIN 300 MG CAP PO SCH ×3 (08:38→23:05)
[2021-06-02] MEDS: PANTOPRAZOLE 40 MG/10 ML VIAL IV SCH (08:38)
[2021-06-02] MEDS: SODIUM CHLORIDE 0.9% 1,000 ML IV SCH ×2 (08:49→17:05)
[2021-06-02 09:08] LABS: Anisocytosis Slight; HCT 36.2 % (39.0-53.0); HGB 11.7 gm/dL (13.0-17.5); Hypochromasia Slight; MCH 31.1 pg (25.0-35.0); MCHC 32.3 g/dL (31.0-37.0); MCV 96.2 fL (80.0-100.0); Macrocytosis Slight; Mean Platelet Volume 7.9; Platelet Count 223 k/uL (150-450); RBC 3.76 m/uL (4.30-5.90); RDW 17.2 % (11.5-15.5)
[2021-06-02 09:48] LABS: Band Neutrophils % 1 %; Lymphocytes # (M) 0.46 k/uL (1.0-4.8); Metamyelocytes # (M) 0.02 k/uL (0); Metamyelocytes % 1 %; Monocytes # (M) 0.18 k/uL (0-1.0); Neutrophils % (M) 56 %; Nucleated Red Blood Cells 0 /100 WBC (0-0); Poikilocytosis (M) Present; Polychromasia Present; Total Cells Counted 100
[2021-06-02 13:02] LABS: African American GFR (CKD) 102.1 (60.0-200.0); Albumin 3.3 g/dL (3.80-4.90); Albumin/Globulin Ratio 2.54 (1.60-3.17); Anion Gap 4.8 mmol/L (4.00-12.00); BUN/Creat Ratio 13.33 Ratio (12.00-20.00); Calcium 6.9 mg/dL (8.7-10.3); Carbon Dioxide 26.2 mmol/L (21.6-31.8); Globulin 1.3 g/dL (1.6-3.3); Magnesium 1.9 mg/dL (1.5-2.4); Non-African American GFR(CKD) 88.1 (60.0-200.0); Phosphorus 1.8 mg/dL (2.4-5.1); Potassium 3.6 mmol/L (3.5-5.5); Total Bilirubin 0.3 mg/dL (0.3-1.2); Total Protein 4.6 g/dL (6.2-8.2)
--- NOTE | 2021-06-02 13:58 | PN ---
PROGRESS NOTE DATE OF SERVICE: 06/02/2021 This 66-year-old gentleman admitted with weakness and abdominal pain also had possibly neutropenic sepsis. The patient is feeling better today. The patient was started on empiric antibiotics. No chest pain. No palpitations. No fever. Infectious Disease is evaluating. Cultures are negative so far. Past medical history reviewed. REVIEW OF SYSTEMS: CARDIOVASCULAR SYSTEM: No angina, palpitations. RESPIRATORY SYSTEM: As mentioned earlier. GI: As mentioned earlier. : No dysuria. NERVOUS SYSTEM: No numbness, weakness. CURRENT MEDICATIONS: Current medications are reviewed and include Tylenol,, Eliquis, aspirin, Os-Khanh with vitamin D, cefepime, Pepcid. Doses are reviewed. PHYSICAL EXAMINATION: Patient is alert and oriented x3. Pulse is 57, blood pressure 99/62, respiration 20, temperature 97.9, pulse ox 97% on room air. HEENT: Conjunctivae normal. Oral mucosa moist. NECK: No jugular venous distention. CARDIOVASCULAR SYSTEM: S1, S2 muffled. RESPIRATORY: Breath sounds diminished at the bases. ABDOMEN: Soft, obese. Minimal tenderness and discomfort in the right upper quadrant present. LEGS: No edema. No swelling. NERVOUS SYSTEM: No focal deficit. LABS: WBC 2, hemoglobin 11.7. Sodium 135. Other labs are noted. Abdominal and pelvis CT scan reviewed; shows mainly bony abnormalities. ASSESSMENT: 1. Abdominal pain and diarrhea; possible acute neutropenic sepsis, present on admission. On empiric IV antibiotics. 2. Rule out cholecystitis, cholelithiasis. 3. Multiple myeloma. On chemotherapy. 4. Neutropenia and anemia secondary to malignancy and chemotherapy. 5. Hyponatremia. 6. Decreased carbon dioxide. 7. Elevated lactic acid, possibly secondary to sepsis, present on admission. 8. History of coronary artery disease. 9. History of pulmonary embolism. 10.Hyperlipidemia. 11.History of stem cell transplant. 12.History of bilateral peripheral neuropathy. 13.History of gait dysfunction. 14.History of degenerative joint disease as well as chronic low back pain. 15.Obesity with body mass index of 36.9. 16.FULL CODE. RECOMMENDATIONS AND DISCUSSION: I recommend to continue current medications, continue with symptomatic treatment. Continue with empiric antibiotics. Ultrasound of the gallbladder to rule out the possibility of cholelithiasis and cholecystitis in this immunosuppressed individual. Otherwise, closely monitor. Repeat labs will be ordered. Prognosis is guarded because of the multiple complex medical issues. Further recommendations to follow. MMODL / IJN: [id number] / MTDTameka
[2021-06-02] MEDS: CALCIUM CARB-VIT D 500 MG-5 MCG TAB PO SCH (16:30)
[2021-06-02] MEDS: POTASSIUM CHLORIDE ER 20 MEQ TAB.ER PO SCH (16:30)
[2021-06-02] MEDS: MULTIVITAMINS, THERA 1 EACH TAB PO SCH (16:30)
--- NOTE | 2021-06-02 17:05 | US ---
EXAMINATION TYPE: US gallbladder DATE OF EXAM: 06/02/2021 COMPARISON: NONE CLINICAL HISTORY: Abdominal pain. RUQ tenderness when you touch EXAM MEASUREMENTS: Liver Length: 15.4 cm Gallbladder Wall: 0.2 cm CBD: 0.4 cm Right Kidney: 9.1 x 4.1 x 4.9 cm Pancreas: bowel gas mostly obscures Liver: intercostal imaging due to bowel gas Gallbladder: small GB stones noted on CT were not appreciated by US, no wall thickening Evidence for sonographic Francisco's sign: no CBD: wnl Right Kidney: wnl IMPRESSION: No gallstones seen. No dilated ducts.
--- NOTE | 2021-06-02 19:10 | PN ---
PROGRESS NOTE DATE OF SERVICE: 06/02/2021 REASON FOR FOLLOWUP: Fever, ? gallbladder disease. INTERVAL HISTORY: Patient is afebrile. The patient is feeling better. No further nausea or vomiting and diarrhea seems to have resolved as well. Complaints of some pain in the right upper quadrant area. No chest pain, shortness of breath or cough. PHYSICAL EXAMINATION: Blood pressure 116/80 with a pulse of 71, temperature 98.3. He is 99% on room air. General description is an elderly male lying in bed in no distress. Respiratory system: Unlabored breathing, clear to auscultation anteriorly. Heart S1, S2. Regular rate and rhythm. Abdomen: Soft, no tenderness. LABS: Hemoglobin 11.7, white count 2.0, BUN of 12, creatinine 0.9. Blood cultures negative. Stool cultures currently pending. DIAGNOSTIC IMPRESSION AND PLAN: Patient with fever, leukopenia, in this patient, with history of multiple myeloma. Patient responding to cefepime to continue. Gallbladder ultrasound was negative for any stones. Continue supportive care. MMODL / IJN: [id number] / MTDD
[2021-06-03] MEDS: CEFEPIME 2 GM in SODIUM CHLORIDE 0.9% 100 ML IVPB SCH ×2 (02:38→09:59)
[2021-06-03 04:51] VITALS: RESP 16
[2021-06-03 07:02] LABS: Anisocytosis Slight; HGB 12.4 gm/dL (13.0-17.5); Hypochromasia Slight; MCH 30.9 pg (25.0-35.0); MCHC 32.7 g/dL (31.0-37.0); MCV 94.5 fL (80.0-100.0); Mean Platelet Volume 7.4; Platelet Count 278 k/uL (150-450); RBC 4.02 m/uL (4.30-5.90); RDW 17.3 % (11.5-15.5); WBC 2.3 k/uL (3.8-10.6)
[2021-06-03 07:13] LABS: Band Neutrophils % 1 %; Basophils # (M) 0.02 k/uL (0-0.2); Eosinophils # (M) 0.21 k/uL (0-0.7); Lymphocytes # (M) 0.44 k/uL (1.0-4.8); Monocytes # (M) 0.51 k/uL (0-1.0); Neutrophils % (M) 48 %; Nucleated Red Blood Cells 0 /100 WBC (0-0); Total Cells Counted 100
[2021-06-03] MEDS: PANTOPRAZOLE 40 MG/10 ML VIAL IV SCH (07:55)
[2021-06-03] MEDS: ASPIRIN 81 MG PO SCH (07:56)
[2021-06-03] MEDS: ACYCLOVIR 200 MG CAP PO SCH (07:56)
[2021-06-03] MEDS: APIXABAN 5 MG TAB PO SCH (07:57)
[2021-06-03] MEDS: SODIUM CHLORIDE 0.9% 1,000 ML IV SCH (07:57)
[2021-06-03] MEDS: GABAPENTIN 300 MG CAP PO SCH (07:57)
[2021-06-03 09:43] LABS: African American GFR (CKD) 102.1 (60.0-200.0); Albumin 3.4 g/dL (3.80-4.90); Albumin/Globulin Ratio 2.62 (1.60-3.17); Anion Gap 5.9 mmol/L (4.00-12.00); BUN/Creat Ratio 8.89 Ratio (12.00-20.00); Calcium 6.9 mg/dL (8.7-10.3); Carbon Dioxide 26.1 mmol/L (21.6-31.8); Globulin 1.3 g/dL (1.6-3.3); Magnesium 1.8 mg/dL (1.5-2.4); Non-African American GFR(CKD) 88.1 (60.0-200.0); Potassium 3.6 mmol/L (3.5-5.5); Total Bilirubin 0.3 mg/dL (0.3-1.2); Total Protein 4.7 g/dL (6.2-8.2)
[2021-06-03] MEDS: CALCIUM CARB-VIT D 500 MG-5 MCG TAB PO SCH (11:13)
[2021-06-03] MEDS: POTASSIUM CHLORIDE ER 20 MEQ TAB.ER PO SCH (11:13)
[2021-06-03] MEDS: MULTIVITAMINS, THERA 1 EACH TAB PO SCH (11:13)
[2021-06-03 12:38] VITALS: BP 103/67; PULSE 64; TEMP 98.2
--- NOTE | 2021-06-03 12:48 | P.PN ---
Subjective Progress Note Date: 06/03/21 No further diarrhea or subjective fevers. Planning for discharge today. He will hold his pomalyst one week and see RESOURCE RECOVERY ENGINEER in office Thursday prior to restarting to ensure blood count recovery Objective - Vital Signs Vital signs: Vital Signs Temp 98.2 F 06/03/21 11:28 Pulse 64 06/03/21 11:28 Resp 16 06/03/21 11:28 BP 103/67 06/03/21 11:28 Pulse Ox 98 06/03/21 11:28 Intake & Output 06/02/21 06/03/21 06/03/21 18:59 06:59 18:59 Intake Total 1820 Balance 1820 Intake: Intake, IV Titration 1100 Amount Cefepime 2 gm In Sodium 200 Chloride 0.9% 100 ml @ 25 mls/hr IVPB Q8H NNAMDI Rx#: [id number] Sodium Chloride 0.9% 1, 900 000 ml @ 75 mls/hr IV . [id number] NNAMDI Rx#:[id number] Oral 720 Other: # Voids 4 2 - Exam Gen: Alert and oriented, NAD HEad: NCAT Neck: Supple Lungs: Diminished bibasilar, no wheezes Heart: tachycardia Abdomen: Tender, non distended Ext: Pedal edema or rash Neuro: non-focal - Labs CBC & Chem 7: 06/03/21 06:14 06/03/21 06:14 Labs: Abnormal Lab Results - Last 24 Hours (Table) 06/01/21 06/02/21 06/03/21 Range/Units 16:48 07:46 06:14 WBC (3.8-10.6) k/uL RBC (4.30-5.90) m/uL Hgb (13.0-17.5) gm/dL Hct (39.0-53.0) % RDW (11.5-15.5) % Neutrophils # (Manual) (1.3-7.7) k/uL Lymphocytes # (Manual) (1.0-4.8) k/uL Sodium 147 H (135-145) mmol/L Chloride 116 H 112 H (96-109) mmol/L BUN 8.0 L (9.0-27.0) mg/dL BUN/Creatinine Ratio 8.89 L (12.00-20.00) Ratio Calcium 6.9 L 6.9 L (8.7-10.3) mg/dL Phosphorus 1.8 L (2.4-5.1) mg/dL Total Protein 4.6 L 4.7 L (6.2-8.2) g/dL Albumin 3.30 L 3.40 L (3.80-4.90) g/dL Globulin 1.3 L 1.3 L (1.6-3.3) g/dL Stool Lactoferrin POSITIVE A (NEGATIVE) 06/03/21 Range/Units 06:14 WBC 2.3 L (3.8-10.6) k/uL RBC 4.02 L (4.30-5.90) m/uL Hgb 12.4 L (13.0-17.5) gm/dL Hct 38.0 L (39.0-53.0) % RDW 17.3 H (11.5-15.5) % Neutrophils # (Manual) 1.10 L (1.3-7.7) k/uL Lymphocytes # (Manual) 0.44 L (1.0-4.8) k/uL Sodium (135-145) mmol/L Chloride (96-109) mmol/L BUN (9.0-27.0) mg/dL BUN/Creatinine Ratio (12.00-20.00) Ratio Calcium (8.7-10.3) mg/dL Phosphorus (2.4-5.1) mg/dL Total Protein (6.2-8.2) g/dL Albumin (3.80-4.90) g/dL Globulin (1.6-3.3) g/dL Stool Lactoferrin (NEGATIVE) Microbiology - Last 24 Hours (Table) 06/01/21 13:30 Blood Culture - Preliminary Blood No Growth after 24 hours 06/01/21 13:30 Blood Culture - Preliminary Blood No Growth after 24 hours Assessment and Plan (1) Multiple myeloma Status: Acute Code(s): C90.00 - MULTIPLE MYELOMA NOT HAVING ACHIEVED REMISSION SNOMED Code(s): 636168066 (2) Leukopenia Status: Acute Code(s): D72.819 - DECREASED WHITE BLOOD CELL COUNT, UNSPECIFIED SNOMED Code(s): 89989284 (3) Anemia Status: Acute Priority: High Code(s): D64.9 - ANEMIA, UNSPECIFIED SNOMED Code(s): 402521870 Plan: Assessment and Recommendations: Neutropenia: - Secondary to treatment of Myeloma and likely exacerbated with infectious or inflammatory acute event - Hold Pomalyst until recovery of counts and treatment of underlying acute hospitalizatized concern - Full Conley Cultures Pending Multiple Myeloma: - Hold Treatment at this time until blood counts and clinical improvements seen Normocytic Anemia: - Secondary to myeloma and Chemotherapy Blood counts stable today Stool Positive for underlying inflammatory process If diarrhea continues may add questran No further diarrhea or subjective fevers. Planning for discharge today. He will hold his pomalyst one week and see RESOURCE RECOVERY ENGINEER in office Thursday prior to restarting to ensure blood count recovery. Discussed with patient, and primary team
--- NOTE | 2021-06-03 17:09 | P.PN ---
Progress Note - Text Progress Note Date: 06/03/21 REASON FOR FOLLOWUP: Fever, ? Gastroenteritis INTERVAL HISTORY: Patient remains to be afebrile. The patient is feeling better. No further nausea or vomiting and diarrhea has resolved the patient right upper quadrant pain has improved as well. Denies any chest pain shortness of breath or cough overall feeling better PHYSICAL EXAMINATION: Blood pressure 110/82 with a pulse of 70, temperature 98.3. He is 99% on room air. General description is an elderly male lying in bed in no distress. Respiratory system: Unlabored breathing, clear to auscultation anteriorly. Heart S1, S2. Regular rate and rhythm. Abdomen: Soft, no tenderness. LABS:Blood cultures negative. Stool cultures currently pending. DIAGNOSTIC IMPRESSION AND PLAN: Patient with fever, leukopenia, in this patient predominant symptom has been diarrhea no vomiting patient diarrhea has resolved and gallbladder ultrasound was negative with overall improvement on cefepime plan to finish therapy short course of oral Ceftin to close outpatient follow-up discussed with nurse potential for admitting team
[2021-06-03] MEDS ORDERED: POMALYST 3 MG PO SCH (21:00)
--- NOTE | 2021-06-03 22:22 | DS ---
DISCHARGE SUMMARY DATE OF SERVICE: 06/03/2021 FINAL DIAGNOSES: 1. Abdominal pain, diarrhea, possibly acute neutropenic sepsis, possible acute colitis, improved with empiric IV antibiotics. 2. No evidence of cholecystitis, cholelithiasis in the ultrasound of the abdomen. 3. Multiple myeloma on chemotherapy. 4. Neutropenia anemia secondary to malignancy and chemotherapy. 5. Hyponatremia. 6. Decreased CO2. 7. Elevated lactic acid, possibly secondary to sepsis, present on admission. 8. History of coronary artery disease. 9. History of pulmonary embolism. 10.Hyperlipidemia. 11.History of stem cell transplant. 12.History of bilateral peripheral neuropathy. 13.History of gait dysfunction. 14.History of degenerative joint disease as well as chronic back pain. 15.Chest pain. 16.Obesity with body mass index of 36.9. 17.FULL CODE. DISCHARGE DISPOSITION: The patient will be discharged in stable condition with guarded prognosis. Discharge cleared by Dr. Miranda and Hematology/Oncology. HISTORY OF PRESENT ILLNESS: This 66-year-old gentleman with past medical history of multiple medical problems admitted with possibly neutropenic sepsis and features of possible colitis. Treated empirically with IV antibiotics. Patient improved significantly. Cultures are negative. On exam, vitals stable. Cardiovascular: S1, S2. Abdomen soft. Nervous system: No focal deficit. Dr. Miranda recommended complete the outpatient course of antibiotic. Discharge diet is cardiac diet. Activity limited until followup. DISCHARGE MEDICATIONS: 1. Acyclovir 400 mg p.o. b.i.d. 2. Calcium 1 p.o. daily. 3. Dexamethasone 8 mg p.r.n. 4. Eliquis 5 mg p.o. b.i.d. 5. K-Dur 20 mEq p.o. daily. 6. Lasix 20 mg daily p.r.n. 7. Neurontin 300 mg p.o. t.i.d. 8. Nitrostat p.r.n. 9. Oxy IR 5 mg p.o. q.i.d. p.r.n. 10.Pepcid 20 mg p.o. daily. 11.Zofran 4 mg q.4h p.r.n. 12.Aspirin 81 mg p.o. daily. 13.Ceftin 500 mg p.o. b.i.d. for 1 week. 14.Multivitamins 1 p.o. daily. 15.Tylenol 650 q.6h p.r.n. Follow up with Dr. Pierson in 2-3 days. Follow up with Hematology/oncology and as recommended. MMODL / IJN: [id number] / MTDD
== END 2021-06-03 14:57 | disposition home or self-care (01) | DRG 872 ==
LOC: EC 21:08 → 5NMEDONC 06-01 00:14
PROVIDERS: ADMIT Hospitalist; ATTEND Hospitalist
DX: A41.9 Sepsis, unspecified organism (principal); C90.00 Multiple myeloma not having achieved remission; E87.1 Hypo-osmolality and hyponatremia; Z94.84 Stem cells transplant status; D63.0 Anemia in neoplastic disease; D64.81 Anemia due to antineoplastic chemotherapy; D70.1 Agranulocytosis secondary to cancer chemotherapy; E66.9 Obesity, unspecified; E78.5 Hyperlipidemia, unspecified; E86.0 Dehydration; I25.10 Atherosclerotic heart disease of native coronary artery without angina pectoris; K52.9 Noninfective gastroenteritis and colitis, unspecified; K80.20 Calculus of gallbladder without cholecystitis without obstruction; R50.81 Fever presenting with conditions classified elsewhere; T45.1X5A Adverse effect of antineoplastic and immunosuppressive drugs, initial encounter; Z68.36 Body mass index [BMI] 36.0-36.9, adult; Z79.01 Long term (current) use of anticoagulants; Z79.82 Long term (current) use of aspirin; Z79.899 Other long term (current) drug therapy; Z86.711 Personal history of pulmonary embolism; Z87.891 Personal history of nicotine dependence; G89.29 Other chronic pain; K29.70 Gastritis, unspecified, without bleeding
CPT/HCPCS: 36415; 71045; 74177; 76705; 80053; 81001; 81003; 82550; 83605; 83630; 83690; 83735; 84100; 84484; 85025; 85610; 85730; 87040; 87045; 87046; 87635; 93005

== ENCOUNTER 2021-12-16 16:57 | Emergency (ER) | payer MEDICARE, BC ==
--- NOTE | 2021-12-16 17:37 | ED ---
Chest Pain HPI - General Chief Complaint: Chest Pain Stated Complaint: Right Sided Chest Pain Time Seen by Provider: 12/16/21 17:33 Source: patient, family Mode of arrival: wheelchair Limitations: no limitations - History of Present Illness Initial Comments: 66-year-old male with past medical history of PE, multiple myeloma presents emergency room with reported right chest wall pain. States that symptoms started approximately 2 hours prior to hospital arrival. He felt a pop in his right lateral chest wall and began having excruciating pain. Symptoms are worse with palpation and movement. States he can't take a deep breath without it being painful. He feels as this pain is consistent with when he was diagnosed with pulmonary embolism. He is on [place] has been taking the medications as directed. Patient currently on chemotherapy for his multiple myeloma. No lower extremity swelling. No fevers. Denies productive cough. Denies any chest pressure. No history of coronary disease. Had a heart cath 3 years ago. Patient believes that his pain may be attributed to him participitating in yoga today. No other alleviating, precipitating or modifying factors - Related Data Home Medications Medication Instructions Recorded Confirmed oxyCODONE HCL [OxyIR] 5 mg PO QID PRN 02/05/17 12/16/21 Famotidine [Pepcid] 20 mg PO DAILY PRN 04/15/19 12/16/21 Gabapentin [Neurontin] 300 mg PO TID 04/15/19 12/16/21 dexAMETHasone 8 mg PO WE 04/15/19 12/16/21 Acyclovir 400 mg PO BID 08/24/19 12/16/21 Pomalyst 3mg 3 mg PO DIRECTED 08/24/19 12/16/21 Apixaban [Eliquis] 5 mg PO BID 10/03/19 12/16/21 Nitroglycerin Sl Tabs [Nitrostat] 0.4 mg SUBLINGUAL Q5M PRN 10/03/19 12/16/21 Calcium Carbonate/Vitamin D3 1 cap PO DAILY@1200 01/10/20 12/16/21 [Calcium 600-Vit D3 20 Mcg (800 Iu)] Potassium Chloride ER [K-Dur 20] 20 meq PO DAILY@1200 01/10/20 12/16/21 Furosemide [Lasix] 20 mg PO DAILY PRN 05/31/21 12/16/21 Multivitamins, Thera [Multivitamin 1 tab PO DAILY 12/16/21 12/16/21 (formulary)] Previous Rx's Medication Instructions Recorded Aspirin 81 mg PO DAILY #30 chewable 08/26/19 Acetaminophen Tab [Tylenol] 650 mg PO Q6HR PRN tab 06/03/21 Lidocaine [Lidoderm 5% Patch] 1 patch TRANSDERM DAILY #25 patch 12/16/21 Allergies Allergy/AdvReac Type Severity Reaction Status Date / Time sulfamethoxazole Allergy Rash/Hives Verified 12/16/21 19:19 [From Bactrim] trimethoprim [From Bactrim] Allergy Rash/Hives Verified 12/16/21 19:19 Review of Systems ROS Statement: Those systems with pertinent positive or pertinent negative responses have been documented in the HPI. ROS Other: All systems not noted in ROS Statement are negative. EKG Findings - EKG Comments: EKG Findings:: EKG demonstrates sinus rhythm with a rate of 66. MO interval 186. QRS 101. QTC of 422. 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, gait dysfunction-uses walker, bilateral pedal/ankle edema, PE 08/2019, chronic low back pain, past vertebral fractures, minimal CAD, shingelles twice, past R heel wound, elevated lipids in the past, History of Any Multi-Drug Resistant Organisms: None Reported Past Surgical History: Heart Catheterization, Orthopedic Surgery Additional Past Surgical History / Comment(s): excision of uvular lesion(benign) 2009, colonoscopy, dave knee arthroscopy, rt rotator cuff sx, moles removed from back(benign), bone marrow aspiration/bx, stem cell transplant 2015, Past Anesthesia/Blood Transfusion Reactions: No Reported Reaction Past Psychological History: No Psychological Hx Reported Smoking Status: Never smoker Past Alcohol Use History: None Reported Past Drug Use History: None Reported - Past Family History Father Family Medical History: Renal Disease, Vascular Disorder Additional Family Medical History / Comment(s): aaa. Father is . Mother Family Medical History: No Reported History Additional Family Medical History / Comment(s): mom is healthy General Exam Limitations: no limitations Course Vital Signs 12/16/21 12/16/21 12/16/21 17:01 17:50 18:02 Temperature 98.8 F Pulse Rate 77 74 Respiratory 16 22 22 Rate Blood Pressure 142/91 138/88 O2 Sat by Pulse 96 98 Oximetry 12/16/21 21:03 Temperature 98.1 F Pulse Rate 62 Respiratory 16 Rate Blood Pressure 146/99 O2 Sat by Pulse 99 Oximetry Chest Pain MDM - MDM Upon arrival patient is placed into room 16. A thorough history and physical exam was performed. 12-lead EKG is obtained. IV access established and the patient is a given 1 mg of Dilaudid for pain control. Laboratory studies are reviewed. Creatinine 1.5 which is near the patient's baseline. Troponin is negative. Patient is sent for a CT of his chest because of his reported history of PE. CT L-spine demonstrate any acute process. The results are discussed the patient. Concern for possible strain. Patient will be discharged home. He is in a pain contract and therefore he will take his home pain medications as needed. I will write the patient prescription for Lidoderm patches. Follow-up with primary care doctor in 2-4 days and return for any worsening symptoms. Patient was discharged home in stable condition Disposition Clinical Impression: Chest wall pain Disposition: HOME SELF-CARE Condition: Stable Instructions (If sedation given, give patient instructions): Chest Wall Pain (ED) Additional Instructions: Take your home medications as described. May additionally use the Lidoderm patches. Follow-up with the primary care doctor. Return for any new or worsening symptoms Prescriptions: Lidocaine [Lidoderm 5% Patch] 1 patch TRANSDERM DAILY #25 patch Is patient prescribed a controlled substance at d/c from ED?: No Referrals: Elkin Pierson MD [Primary Care Provider] - 1-2 days Time of Disposition: 20:23
[2021-12-16 17:57] LABS: Anisocytosis Slight; Basophils # (A) 0.1 k/uL (0-0.2); Basophils % (A) 1 %; Eosinophils # (A) 0.4 k/uL (0-0.7); Eosinophils % (A) 8 %; HCT 38.6 % (39.0-53.0); HGB 12.4 gm/dL (13.0-17.5); Hypochromasia Slight; Lymphocytes # (A) 0.4 k/uL (1.0-4.8); Lymphocytes % (A) 7 %; MCHC 32.1 g/dL (31.0-37.0); MCV 96.6 fL (80.0-100.0); Mean Platelet Volume 7.9; Monocytes # (A) 0.6 k/uL (0-1.0); Monocytes % (A) 11 %; Neutrophils # (A) 3.5 k/uL (1.3-7.7); Neutrophils % (A) 71 %; Platelet Count 223 k/uL (150-450); RDW 16.4 % (11.5-15.5)
[2021-12-16 18:06] LABS: Albumin 3.5 g/dL (3.5-5.0); Calcium 8.7 mg/dL (8.4-10.2); Potassium 3.8 mmol/L (3.5-5.1); Total Bilirubin 0.5 mg/dL (0.2-1.3); Total Protein 5.9 g/dL (6.3-8.2)
[2021-12-16 18:11] LABS: INR 0.9 (<1.2); Prothrombin Time 10.3 sec (9.0-12.0)
[2021-12-16 18:12] LABS: Partial Thromboplastin Time 25.2 sec (22.0-30.0)
[2021-12-16] MEDS ORDERED: HYDROmorphone 1 MG/ML 1 ML SYRINGE IVP STA (19:16)
--- NOTE | 2021-12-16 19:34 | CT ---
EXAMINATION TYPE: CT chest angio for PE DATE OF EXAM: 12/16/2021 COMPARISON: 08/24/2019 HISTORY: Chest pain, RT side pain. Hx PE. CT DLP: 485.4 mGycm Automated exposure control for dose reduction was used. CONTRAST: Performed with IV Contrast, patient injected with 80 mL of Isovue 370. Images obtained from the thoracic inlet to the diaphragm with IV contrast. There are Three-D postproc essed images. There is some mild pleural thickening and atelectasis at the lung bases. There is no mediastinal antony opathy. There are no hilar masses. Heart size is normal. Thoracic aorta is atheromatous. There is no aneurysm or dissection. There is no pericardial effusion. There is no evidence of filling defect in the pulmonary arteries. There are spondylotic mild changes in the thoracic spine. There is 75% compression deformity of T11. There is 50% wedging of L1. There is wedging of T7 30%. Unchanged. IMPRESSION: No evidence of pulmonary embolism. Scarring or atelectasis at the lung bases with improvement compare d to old exam. No suspicious pulmonary mass. There is clearing of the right-sided pulmonary emboli co mpared to old exam.
[2021-12-16 21:04] VITALS: BP 146/99; PULSE 62; RESP 16; TEMP 98.1
== END 2021-12-16 21:03 | disposition home or self-care (01) ==
LOC: EC 16:57
DX: R07.89 Other chest pain (principal); I25.10 Atherosclerotic heart disease of native coronary artery without angina pectoris; E78.5 Hyperlipidemia, unspecified; Z79.01 Long term (current) use of anticoagulants; Z79.82 Long term (current) use of aspirin; Z88.1 Allergy status to other antibiotic agents; Z88.2 Allergy status to sulfonamides; Z86.711 Personal history of pulmonary embolism
CPT/HCPCS: 99285; 96374; 36415; 93005; 85379; 83880; 80053; 83690; 83735; 84484; 85025; 85610; 85730; 71275; J1170; Q9967

== ENCOUNTER → 2022-01-20 | Outpatient (CLI) | payer MEDICARE, BC ==
--- NOTE | 2022-01-20 11:34 | US ---
EXAMINATION TYPE: US kidneys/renal and bladder DATE OF EXAM: 01/20/2022 COMPARISON: NONE CLINICAL HISTORY: 66-year-old male R94.4 Abnormal Renal Function Test. TECHNIQUE: Multiple sonographic images of the kidneys and bladder are obtained. FINDINGS: EXAM MEASUREMENTS: Right Kidney: 10.0 x 5.1 x 5.1 cm Left Kidney: 10.3 x 5.6 x 5.1 cm Medical Technologist Chemistry notes: Patient of large body habitus. Right Kidney: No hydronephrosis or masses seen Left Kidney: No hydronephrosis or masses seen Bladder: wnl IMPRESSION: Limitations due to large patient body habitus. No hydronephrosis seen.
== END | disposition home or self-care (01) ==
LOC: RADUSWWP 07:25
PROVIDERS: ATTEND Internal Medicine Hematology & Oncology
DX: R94.4 Abnormal results of kidney function studies (principal)
CPT/HCPCS: 76770

== ENCOUNTER 2022-02-10 15:07 | Emergency (ER) | payer MEDICARE, BC ==
[2022-02-10 16:51] LABS: Anisocytosis Slight; Basophils % (A) 1 %; Eosinophils # (A) 0.4 k/uL (0-0.7); Eosinophils % (A) 10 %; Hypochromasia Slight; Lymphocytes # (A) 0.4 k/uL (1.0-4.8); Lymphocytes % (A) 9 %; MCH 29.7 pg (25.0-35.0); MCHC 31.6 g/dL (31.0-37.0); Mean Platelet Volume 7.6; Monocytes # (A) 0.6 k/uL (0-1.0); Monocytes % (A) 15 %; Neutrophils # (A) 2.7 k/uL (1.3-7.7); Neutrophils % (A) 64 %; Platelet Count 219 k/uL (150-450); RBC 4.04 m/uL (4.30-5.90); RDW 16.4 % (11.5-15.5); WBC 4.2 k/uL (3.8-10.6)
[2022-02-10 17:01] LABS: Albumin 3.4 g/dL (3.5-5.0); Calcium 8.7 mg/dL (8.4-10.2); Potassium 3.9 mmol/L (3.5-5.1); Total Bilirubin 0.6 mg/dL (0.2-1.3)
[2022-02-10 17:12] LABS: Appearance,Urine Clear (Clear); Bilirubin,Urine Negative (Negative); Blood,Urine Trace (Negative); Color,Urine Light Yellow; Glucose,Urine (UA) Negative (Negative); Ketones,Urine Negative (Negative); Leukocyte Esterase,Urine Negative (Negative); Nitrite,Urine Negative (Negative); PH, Urine 6.5 (5.0-8.0); Protein,Urine 1+ (Negative); RBC,Urine 2 /hpf (0-5); Specific Gravity,Urine 1.009 (1.001-1.035); Squamous Epithelial Cell,Urine <1 /hpf (0-4); Urobilinogen,Urine <2.0 mg/dL (<2.0); WBC,Urine 2 /hpf (0-5)
[2022-02-11] MEDS ORDERED: ONDANSETRON 4 MG/2 ML VIAL IVP STA (00:17)
[2022-02-11] MEDS ORDERED: HYDROmorphone 0.5 MG/0.5 ML SYRINGE IVP STA ×2 (00:17→05:30)
[2022-02-11] MEDS ORDERED: APIXABAN 5 MG TAB PO STA (00:18)
[2022-02-11 02:57] VITALS: RESP 16
--- NOTE | 2022-02-11 02:59 | ED ---
General Adult HPI <SamEmma P - Last Filed: 02/11/22 07:17> - General Source: patient, RN notes reviewed Mode of arrival: ambulatory Limitations: no limitations <BhaktiEsha - Last Filed: 02/11/22 21:54> - General Chief complaint: Abdominal Pain Stated complaint: Abdominal pain Time Seen by Provider: 02/10/22 23:45 - History of Present Illness Initial comments: 66-year-old male presents to the emergency department for evaluation of right lower abdominal pain, onset this morning. Patient states he has had intermittent ongoing right-sided flank pain for the past few weeks but states th at this discomfort is more persistent today. Patient states he has to brace himself on his walker while weightbearing or upright due to the right-sided pain. Pain is also worsened with palpation. Patient states he does know that he has some kidney problems that he acquired after having a CT scan with contrast. States he is supposed to see a roof painter in early March, though is uncertain why. Patient reports a history of multiple myeloma for which he follows with his oncologist regularly; denies any recent medication changes. No fever, chills, headache, chest pain, shortness of breath, nausea, vomiting, constipation, diarrhea, dysuria, or hematuria. (Esha Ya) - Related Data Home Medications Medication Instructions Recorded Confirmed oxyCODONE HCL [OxyIR] 5 mg PO QID PRN 02/05/17 12/16/21 Famotidine [Pepcid] 20 mg PO DAILY PRN 04/15/19 12/16/21 Gabapentin [Neurontin] 300 mg PO TID 04/15/19 12/16/21 dexAMETHasone 8 mg PO WE 04/15/19 12/16/21 Acyclovir 400 mg PO BID 08/24/19 12/16/21 Pomalyst 3mg 3 mg PO DIRECTED 08/24/19 12/16/21 Apixaban [Eliquis] 5 mg PO BID 10/03/19 12/16/21 Nitroglycerin Sl Tabs [Nitrostat] 0.4 mg SUBLINGUAL Q5M PRN 10/03/19 12/16/21 Calcium Carbonate/Vitamin D3 1 cap PO DAILY@1200 01/10/20 12/16/21 [Calcium 600-Vit D3 20 Mcg (800 Iu)] Potassium Chloride ER [K-Dur 20] 20 meq PO DAILY@1200 01/10/20 12/16/21 Furosemide [Lasix] 20 mg PO DAILY PRN 05/31/21 12/16/21 Multivitamins, Thera [Multivitamin 1 tab PO DAILY 12/16/21 12/16/21 (formulary)] Previous Rx's Medication Instructions Recorded Aspirin 81 mg PO DAILY #30 chewable 08/26/19 Acetaminophen Tab [Tylenol] 650 mg PO Q6HR PRN tab 06/03/21 Lidocaine [Lidoderm 5% Patch] 1 patch TRANSDERM DAILY #25 patch 12/16/21 Allergies Allergy/AdvReac Type Severity Reaction Status Date / Time sulfamethoxazole Allergy Rash/Hives Verified 02/10/22 16:14 [From Bactrim] trimethoprim [From Bactrim] Allergy Rash/Hives Verified 02/10/22 16:14 Review of Systems ROS Other: All systems not noted in ROS Statement are negative. <Emma Vargas - Last Filed: 02/11/22 07:17> ROS Other: All systems not noted in ROS Statement are negative. <Esha Ya - Last Filed: 02/11/22 21:54> ROS Statement: Those systems with pertinent positive or pertinent negative responses have been documented in the HPI. 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, gait dysfunction-uses walker, bilateral pedal/ankle edema, PE 08/2019, chronic low back pain, past vertebral f ractures, minimal CAD, shingelles twice, past R heel wound, elevated lipids in the past, History of Any Multi-Drug Resistant Organisms: None Reported Past Surgical History: Heart Catheterization, Orthopedic Surgery Additional Past Surgical History / Comment(s): excision of uvular lesion(benign) 2009, colonoscopy, dave knee arthroscopy, rt rotator cuff sx, moles removed from back(benign), bone marrow aspiration/bx, stem cell transplant 2015, Past Anesthesia/Blood Transfusion Reactions: No Reported Reaction Past Psychological History: No Psychological Hx Reported Smoking Status: Never smoker Past Alcohol Use History: None Reported Past Drug Use History: None Reported - Past Family History Father Family Medical History: Renal Disease, Vascular Disorder Additional Family Medical History / Comment(s): aaa. Father is . Mother Family Medical History: No Reported History Additional Family Medical History / Comment(s): mom is healthy <Esha Ya - Last Filed: 02/11/22 21:54> General Exam Limitations: physical limitation (Ambulates with a wheeled walker) General appearance: alert, in no apparent distress ENT exam: Present: normal exam, normal oropharynx, mucous membranes moist Respiratory exam: Present: normal lung sounds bilaterally. Absent: respiratory distress, wheezes, rales, rhonchi, stridor, chest wall tenderness Cardiovascular Exam: Present: regular rate, normal rhythm, normal heart sounds. Absent: systolic murmur, diastolic murmur, rubs, gallop, clicks GI/Abdominal exam: Present: soft, tenderness (Right lower quadrant abdominal tenderness upon palpation), normal bowel sounds, other (protuberant abdomen). Absent: distended, guarding, rebound, rigid Extremities exam: Present: normal inspection, normal capillary refill. Absent: pedal edema Back exam: Present: normal inspection. Absent: CVA tenderness (R), CVA tenderness (L) Neurological exam: Present: alert, oriented X3 Psychiatric exam: Present: normal affect, normal mood Skin exam: Present: warm, dry, intact <Esha Ya - Last Filed: 02/11/22 21:54> Course <Esha Ya - Last Filed: 02/11/22 21:54> Vital Signs 02/10/22 02/11/22 02/11/22 16:14 00:18 05:28 Temperature 98.4 F 98.1 F 97.8 F Pulse Rate 79 60 55 L Respiratory 18 16 16 Rate Blood Pressure 132/87 138/79 136/74 O2 Sat by Pulse 96 97 98 Oximetry 02/11/22 07:04 Temperature 97.8 F Pulse Rate 56 L Respiratory 16 Rate Blood Pressure 134/80 O2 Sat by Pulse 95 Oximetry - Reevaluation(s) Reevaluation #1: 02/11/22 03:00 Patient's pain level improved and he is moving freely. Spoke with Dr. Tomlinson regarding diagnostic imaging for RLQ pain and concerns with IV contrast/ renal function; he suggests CT abdomen and pelvis with oral contrast only. 02/11/22 04:30 Patient is resting comfortably at this time. Tolerating oral intake (contrast) without difficulty. Awaiting CT. (Esha Ya) Medical Decision Making - Lab Data Result diagrams: 02/10/22 16:25 02/10/22 16:25 <Emma Vargas - Last Filed: 02/11/22 07:17> - Lab Data Result diagrams: 02/10/22 16:25 02/10/22 16:25 - Radiology Data Radiology results: report reviewed, image reviewed <Esha Ya - Last Filed: 02/11/22 21:54> - Medical Decision Making This is a 66-year-old male with a past medical history of multiple myeloma and prostate cancer who presents to the emergency department for evaluation of right lower quadrant abdominal pain and right flank pain. Upon exam, patient appears to be resting comfortably but does have mild to moderate tenderness upon palpation of the right lower quadrant. States ambulation worsens pain significantly. Pain improved with IV medication. Patient has a recent history of impaired renal function. Current laboratory studies were reviewed; BUN 30, creatinine 2, GFR 34. CRP 8. Due to patient's decreased GFR, he did not receive IV contrast for CT, however was given oral contrast for CT of the abdomen and pelvis which had no acute findings. Patient was discharged home to follow up with his PCP. Encouraged to keep all scheduled appointments. Return parameters discussed in detail. Patient verbalizes understanding and agrees with this plan. This patient's care was provided along with my supervising physician, Dr. Vargas. (Esha Ya) - Lab Data Lab Results 02/10/22 02/10/22 02/10/22 Range/Units 16:25 16:25 16:28 WBC 4.2 (3.8-10.6) k/uL RBC 4.04 L (4.30-5.90) m/uL Hgb 12.0 L (13.0-17.5) gm/dL Hct 38.0 L (39.0-53.0) % MCV 94.0 (80.0-100.0) fL MCH 29.7 (25.0-35.0) pg MCHC 31.6 (31.0-37.0) g/dL RDW 16.4 H (11.5-15.5) % Plt Count 219 (150-450) k/uL MPV 7.6 Neutrophils % 64 % Lymphocytes % 9 % Monocytes % 15 % Eosinophils % 10 % Basophils % 1 % Neutrophils # 2.7 (1.3-7.7) k/uL Lymphocytes # 0.4 L (1.0-4.8) k/uL Monocytes # 0.6 (0-1.0) k/uL Eosinophils # 0.4 (0-0.7) k/uL Basophils # 0.0 (0-0.2) k/uL Hypochromasia Slight Anisocytosis Slight Sodium 137 (137-145) mmol/L Potassium 3.9 (3.5-5.1) mmol/L Chloride 103 (98-107) mmol/L Carbon Dioxide 25 (22-30) mmol/L Anion Gap 9 mmol/L BUN 30 H (9-20) mg/dL Creatinine 2.00 H (0.66-1.25) mg/dL Est GFR (CKD-EPI)AfAm 39 (>60 ml/min/1.73 sqM) Est GFR (CKD-EPI)NonAf 34 (>60 ml/min/1.73 sqM) Glucose 91 (74-99) mg/dL Calcium 8.7 (8.4-10.2) mg/dL Total Bilirubin 0.6 (0.2-1.3) mg/dL AST 24 (17-59) U/L ALT 12 (4-49) U/L Alkaline Phosphatase 69 (38-126) U/L C-Reactive Protein (<1.0) mg/dL Total Protein 6.0 L (6.3-8.2) g/dL Albumin 3.4 L (3.5-5.0) g/dL Amylase 80 (30-110) U/L Lipase 146 (23-300) U/L Urine Color Light Yellow Urine Appearance Clear (Clear) Urine pH 6.5 (5.0-8.0) Ur Specific [place] 1.009 (1.001-1.035) Urine Protein 1+ H (Negative) Urine Glucose (UA) Negative (Negative) Urine Ketones Negative (Negative) Urine Blood Trace H (Negative) Urine Nitrite Negative (Negative) Urine Bilirubin Negative (Negative) Urine Urobilinogen <2.0 (<2.0) mg/dL Ur Leukocyte Esterase Negative (Negative) Urine RBC 2 (0-5) /hpf Urine WBC 2 (0-5) /hpf Ur Squamous Epith Cells <1 (0-4) /hpf 02/11/22 Range/Units 00:00 WBC (3.8-10.6) k/uL RBC (4.30-5.90) m/uL Hgb (13.0-17.5) gm/dL Hct (39.0-53.0) % MCV (80.0-100.0) fL MCH (25.0-35.0) pg MCHC (31.0-37.0) g/dL RDW (11.5-15.5) % Plt Count (150-450) k/uL MPV Neutrophils % % Lymphocytes % % Monocytes % % Eosinophils % % Basophils % % Neutrophils # (1.3-7.7) k/uL Lymphocytes # (1.0-4.8) k/uL Monocytes # (0-1.0) k/uL Eosinophils # (0-0.7) k/uL Basophils # (0-0.2) k/uL Hypochromasia Anisocytosis Sodium (137-145) mmol/L Potassium (3.5-5.1) mmol/L Chloride (98-107) mmol/L Carbon Dioxide (22-30) mmol/L Anion Gap mmol/L BUN (9-20) mg/dL Creatinine (0.66-1.25) mg/dL Est GFR (CKD-EPI)AfAm (>60 ml/min/1.73 sqM) Est GFR (CKD-EPI)NonAf (>60 ml/min/1.73 sqM) Glucose (74-99) mg/dL Calcium (8.4-10.2) mg/dL Total Bilirubin (0.2-1.3) mg/dL AST (17-59) U/L ALT (4-49) U/L Alkaline Phosphatase (38-126) U/L C-Reactive Protein 8.0 H (<1.0) mg/dL Total Protein (6.3-8.2) g/dL Albumin (3.5-5.0) g/dL Amylase (30-110) U/L Lipase (23-300) U/L Urine Color Urine Appearance (Clear) Urine pH (5.0-8.0) Ur Specific [place] (1.001-1.035) Urine Protein (Negative) Urine Glucose (UA) (Negative) Urine Ketones (Negative) Urine Blood (Negative) Urine Nitrite (Negative) Urine Bilirubin (Negative) Urine Urobilinogen (<2.0) mg/dL Ur Leukocyte Esterase (Negative) Urine RBC (0-5) /hpf Urine WBC (0-5) /hpf Ur Squamous Epith Cells (0-4) /hpf - Radiology Data CT of the abdomen and pelvis with oral contrast was obtained. Report was reviewed in its entirety. Impression per Dr. Galvin is mild scarring or subsegmental atelectasis at the lung bases. Osteolytic areas of the spine and pelvis consistent with myeloma. Compression fracture similar to old exam. No acute abnormality within the abdomen and pelvis. Normal appendix. (Esha Rogel) Disposition Is patient prescribed a controlled substance at d/c from ED?: No <Emma Vargas - Last Filed: 02/11/22 07:17> Is patient prescribed a controlled substance at d/c from ED?: No <Esha Ya - Last Filed: 02/11/22 21:54> Clinical Impression: Muscular abdominal pain in right lower quadrant Disposition: HOME SELF-CARE Instructions (If sedation given, give patient instructions): Abdominal Pain (ED) Referrals: Elkin Pierson MD [Primary Care Provider] - 1-2 days
[2022-02-11] MEDS ORDERED: IOPAMIDOL CONTRAST (ORAL USE) VIAL PO PRN (03:18)
[2022-02-11 05:29] VITALS: TEMP 97.8
--- NOTE | 2022-02-11 06:17 | CT ---
EXAMINATION TYPE: CT abdomen pelvis wo con DATE OF EXAM: 02/11/2022 COMPARISON: 05/31/2021 HISTORY: RLQ pain CT DLP: 807.8 mGycm Automated exposure control for dose reduction was used. Images obtained from the diaphragm to the floor the pelvis without contrast. There is oral contrast only. There is some mild subsegmental atelectasis at the lung bases. Heart size is normal. No pericardial e ffusion. Liver spleen pancreas and gallbladder appear intact. The stomach is intact. The bile ducts are not di lated. There is no retroperitoneal adenopathy. There is no adrenal mass. Kidneys show normal size. Th ere is no hydronephrosis. Ureters are not dilated. Abdominal aorta is atheromatous. Bladder distends smoothly. There is no inguinal hernia. There is no mesenteric edema. No ascites or free air. No bowel obstruction. There are a few large bow el diverticula. No diverticulitis. Appendix is posterior and appears normal. There is multilevel lumbar spondylotic changes. There is multilevel thoracic and lumbar compression f ractures. There is compression deformities up to 75%. There is osteopenia. There are multiple osteoly tic foci in the bony pelvis. There are lytic areas in the thoracic and lumbar vertebral bodies. No pe lvic fracture. The proximal femurs are intact. IMPRESSION: Mild scarring or subsegmental atelectasis at the lung bases. Osteolytic areas in the spine and pelvis consistent with myeloma. Compression fracture similar to old exam. No acute abnormality within the abdomen and pelvis. Normal appendix.
[2022-02-11 07:05] VITALS: BP 134/80; PULSE 56
== END 2022-02-11 07:42 | disposition home or self-care (01) ==
LOC: EC 15:07
DX: R10.31 Right lower quadrant pain (principal); Z88.2 Allergy status to sulfonamides; Z88.1 Allergy status to other antibiotic agents
CPT/HCPCS: 36415 ×2; 80053; 82150; 83690; 85025; 86140; 81001; 74176; 99284; 96375; 96376; 96374; J2405; J1170

== ENCOUNTER → 2022-02-19 | Outpatient (CLI) | payer MEDICARE, BC ==
--- NOTE | 2022-02-20 02:08 | MR ---
EXAMINATION TYPE: MR lumbar spine wo/w con DATE OF EXAM: 02/19/2022 COMPARISON: 01/14/2017 HISTORY: LBP radiates into buttocks, wedge compression fx T11-T12. Hx multiple myeloma. CONTRAST: Standard multiplanar, multisequence MRI departmental protocol images were obtained without contrast a nd with 10 mL intravenous Gadavist gadolinium contrast. Lumbar vertebrae have normal alignment. There is biconcave compression fracture of L5 vertebra with u p to 50% loss of height. There is similar change at L4 and L3 with up to 40% loss of height. There is depression of the inferior endplate of L2 vertebra with 25% loss of height. There is anterior wedgin g of L1 vertebra with 70% loss of height. There is severe anterior wedging of T11 vertebra with 85% l oss of height. There is significant enhancement on the contrast images in the T12 and L1 vertebral lisa dies. The enhancement extends into the right-sided pedicle of T12. There is no lumbar paraspinal mass. The sacroiliac joints appear intact. There is overall not a signi ficant lumbar spinal stenosis. IMPRESSION: Numerous compression fractures as above. There is pathologic enhancement at T12 and L1. Metastatic di sease is likely. There is progression of the L2 fracture compared to old exam. There is mild progress ion of the L5 fracture.
== END | disposition home or self-care (01) ==
LOC: RADMRIMAIN 19:26
PROVIDERS: ATTEND Internal Medicine Hematology & Oncology
DX: M48.56XA Collapsed vertebra, not elsewhere classified, lumbar region, initial encounter for fracture (principal)
CPT/HCPCS: 72158; A9585

== ENCOUNTER → 2022-02-28 | Outpatient (CLI) | payer MEDICARE, BC ==
--- NOTE | 2022-03-03 06:35 | PE ---
EXAMINATION TYPE: PET CT fusion skull to thigh DATE OF EXAM: 02/28/2022 COMPARISON: CT abdomen and pelvis February 11, 2022 HISTORY: Multiple myeloma. TECHNIQUE: Following the intravenous administration of 10.67 mCi of F-18 FDG, whole body images are performed from the skull base to the midthigh. Images are reviewed on the computer in the coronal, a xial, and sagittal planes. Reconstructed rotating images are created on independent workstation and reviewed on the computer. A localization and attenuation correction CT is performed in conjunction with the PET scan. Blood glucose level was 96 SCAN: Initial Scan FINDINGS: SKULL BASE AND NECK: Increased uptake in the inferior tongue base presumed physiologic. No suspiciou s hypermetabolic soft tissue masses or lymph nodes. CHEST, MEDIASTINUM, AND HILAR REGION: No areas of abnormal hypermetabolic uptake. ABDOMEN AND PELVIS: No areas of abnormal hypermetabolic uptake. OSSEOUS STRUCTURES: Increased hypermetabolic uptake involving the lytic right T12 lesion axial image 154, max SUV is 10.9. Mild Increased uptake involving posterior right sixth rib axial image 116 corre sponding to healing fracture favored posttraumatic. Multiple additional scattered lytic and sclerotic lesions do not show definitive abnormal hypermetabolic uptake, lytic lesions however are much smalle r in size versus the right T12 vertebra lesion Lower extremities: No areas of abnormal hypermetabolic uptake. OTHER CT: Mild calcified plaque carotid bulb level. Low lung volumes. Moderate to large sized fat-con taining left inguinal hernia. IMPRESSION: Abnormal hypermetabolic uptake in the lytic T12 lesion. Additional smaller lytic lesions show no definitive abnormal hypermetabolic uptake. No hypermetabolic nodules or masses.
== END | disposition home or self-care (01) ==
LOC: RADPETMAIN 16:30
PROVIDERS: ATTEND Internal Medicine Hematology & Oncology
DX: C90.00 Multiple myeloma not having achieved remission (principal)
CPT/HCPCS: 78815; A9552

== ENCOUNTER → 2022-03-18 | Outpatient (CLI) | payer MEDICARE, BC ==
--- NOTE | 2022-03-18 10:23 | US ---
EXAMINATION TYPE: US venous doppler duplex LE LT DATE OF EXAM: 03/18/2022 9:21 AM COMPARISON: 08/25/2019 CLINICAL HISTORY: 66-year-old male R60.0 LOCALIZED EDEMA. SIDE PERFORMED: Left TECHNIQUE: The lower extremity deep venous system is examined utilizing real time linear array sonog lisseth with graded compression, doppler sonography and color-flow sonography. FINDINGS: VESSELS IMAGED: Common Femoral Vein Deep Femoral Vein Greater Saphenous Vein * Femoral Vein Popliteal Vein Small Saphenous Vein * Proximal Calf Veins (* superficial vessels) Left Leg: Negative for DVT IMPRESSION: No evidence for DVT within the left lower extremity imaged from the groin to the upper calf.
== END | disposition home or self-care (01) ==
LOC: RADUSWWP 09:18
PROVIDERS: ATTEND Radiology Radiation Oncology
DX: R60.0 Localized edema (principal)

== ENCOUNTER 2022-03-24 22:47 | Inpatient (IN) | payer MEDICARE, BC ==
--- NOTE | 2022-03-24 23:29 | ED ---
General Adult HPI - General Source: patient, family Mode of arrival: wheelchair Limitations: no limitations <Trung Marquez - Last Filed: 03/25/22 00:35> <Elkin Nuñez - Last Filed: 03/25/22 02:46> - General Chief complaint: Fever Stated complaint: Fever, Weakness, Cancer patient Time Seen by Provider: 03/24/22 23:07 - History of Present Illness Initial comments: Dictation was produced using [employer] dictation software. please excuse any grammatical, word or spelling errors. Chief Complaint: 66-year-old male with past medical history of multiple myeloma presents to the emergency department for generalized weakness, worsening thrush symptoms and persistent left lower extremity cellulitis History of Present Illness: 66-year-old male is accompanied by and son. Patient was switched to new chemotherapy today. He went for his new chemotherapy infusion with Dr. Hill. After the infusion patient started to show signs of lethargy, malaise. 10 days ago he was diagnosed with oral thrush and no started on fluconazole. Patient was also recently diagnosed with left lower extremity cellulitis. He completed a 5 day course of antibiotics. Patient complains oral pain. He states that his symptoms are not improving with antifungal medications. Patient also with a left lower extremity pain that did not improve after course of antibiotics. seems to think that patient's symptoms are from the new chemotherapy and patient has been getting hemotherapy infusions weekly since 2016. Denies any constitutional symptoms. No abdominal pain. No chest pain. The ROS documented in this emergency department record has been reviewed and confirmed by me. Those systems with pertinent positive or negative responses have been documented in the HPI. All other systems are other negative and/or noncontributory. PHYSICAL EXAM: General Impression: Alert and oriented x3, not in acute distress HEENT: Normocephalic atraumatic, extra-ocular movements intact, pupils equal and reactive to light bilaterally, mucous membranes moist, oral thrush affecting the tongue, buccal mucosa and posterior oropharynx Cardiovascular: Heart regular rate and rhythm Chest: Able to complete full sentences, no retractions, no tachypnea Abdomen: abdomen soft, non-tender, non-distended, no organomegaly Musculoskeletal: Pulses present and equal in all extremities, no peripheral edema Motor: no focal deficits noted Neurological: CN II-XII grossly intact, no focal motor or sensory deficits noted Skin: Warm, edema and erythema to the left lower extremity Psych: Normal affect and mood ED course: 6-3-kumm-old multiple myeloma patient presents to the emergency department for worsening malaise, persistent thrush and cellulitis resistant to outpatient treatment. Vital signs upon arrival are within acceptable limits. Patient care is signed out to Dr. Nuñez ([facility]) - Related Data Home Medications Medication Instructions Recorded Confirmed oxyCODONE HCL [OxyIR] 5 mg PO QID PRN 02/05/17 12/16/21 Famotidine [Pepcid] 20 mg PO DAILY PRN 04/15/19 12/16/21 Gabapentin [Neurontin] 300 mg PO TID 04/15/19 12/16/21 dexAMETHasone 8 mg PO WE 04/15/19 12/16/21 Acyclovir 400 mg PO BID 08/24/19 12/16/21 Pomalyst 3mg 3 mg PO DIRECTED 08/24/19 12/16/21 Apixaban [Eliquis] 5 mg PO BID 10/03/19 12/16/21 Nitroglycerin Sl Tabs [Nitrostat] 0.4 mg SUBLINGUAL Q5M PRN 10/03/19 12/16/21 Calcium Carbonate/Vitamin D3 1 cap PO DAILY@1200 01/10/20 12/16/21 [Calcium 600-Vit D3 20 Mcg (800 Iu)] Potassium Chloride ER [K-Dur 20] 20 meq PO DAILY@1200 01/10/20 12/16/21 Furosemide [Lasix] 20 mg PO DAILY PRN 05/31/21 12/16/21 Multivitamins, Thera [Multivitamin 1 tab PO DAILY 12/16/21 12/16/21 (formulary)] Previous Rx's Medication Instructions Recorded Aspirin 81 mg PO DAILY #30 chewable 08/26/19 Acetaminophen Tab [Tylenol] 650 mg PO Q6HR PRN tab 06/03/21 Lidocaine [Lidoderm 5% Patch] 1 patch TRANSDERM DAILY #25 patch 12/16/21 Allergies Allergy/AdvReac Type Severity Reaction Status Date / Time sulfamethoxazole Allergy Rash/Hives Verified 03/24/22 23:01 [From Bactrim] trimethoprim [From Bactrim] Allergy Rash/Hives Verified 03/24/22 23:01 Review of Systems ROS Other: All systems not noted in ROS Statement are negative. <Trung Marquez - Last Filed: 03/25/22 00:35> ROS Other: All systems not noted in ROS Statement are negative. <Elkin Nuñez - Last Filed: 03/25/22 02:46> ROS Statement: Those systems with pertinent positive or pertinent negative responses have been documented in the HPI. 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, gait dysfunction-uses walker, bilateral pedal/ankle edema, PE 08/2019, chronic low back pain, past vertebral fractures, minimal CAD, shingelles twice, past R heel wound, elevated lipids in the past, History of Any Multi-Drug Resistant Organisms: None Reported Past Surgical History: Heart Catheterization, Orthopedic Surgery Additional Past Surgical History / Comment(s): excision of uvular lesion(benign) 2009, colonoscopy, dave knee arthroscopy, rt rotator cuff sx, moles removed from back(benign), bone marrow aspiration/bx, stem cell transplant 2015, Past Anesthesia/Blood Transfusion Reactions: No Reported Reaction Past Psychological History: No Psychological Hx Reported Smoking Status: Never smoker Past Alcohol Use History: None Reported Past Drug Use History: None Reported - Past Family History Father Family Medical History: Renal Disease, Vascular Disorder Additional Family Medical History / Comment(s): aaa. Father is . Mother Family Medical History: No Reported History Additional Family Medical History / Comment(s): mom is healthy <Trung Marquez - Last Filed: 03/25/22 00:35> General Exam Limitations: no limitations <Trung Marquez - Last Filed: 03/25/22 00:35> Course <Elkin Nuñez - Last Filed: 03/25/22 02:46> Vital Signs 03/24/22 03/25/22 22:55 02:35 Temperature 98.3 F Pulse Rate 102 H 70 Respiratory 22 18 Rate Blood Pressure 129/88 157/94 O2 Sat by Pulse 100 99 Oximetry - Reevaluation(s) Reevaluation #1: 03/25/22 02:45 medical record is reviewed (Elkin Nuñez) Reevaluation #2: 03/25/22 02:45 patient has no new complaints 03/25/22 02:45 still with occasional pain (Elkin Nuñez) Reevaluation #3: 03/25/22 02:45 A patient and nd family informed of results, questions have been answered (Elkin Nuñez) - Consultations Consultation #1: Spoke with sound regarding admission there agreeable (Elkin Nuñez) Medical Decision Making - Lab Data Result diagrams: 03/25/22 00:44 03/25/22 00:44 - Radiology Data Radiology results: report reviewed (Chest x-rays negative for acute disease), image reviewed <Elkin Nuñez - Last Filed: 03/25/22 02:46> - Medical Decision Making 66 male to the ER for evaluation patient will be admitted for dehydration uremia medication reaction and cancer pain. Pain control. Patient also has oral thrush. (Elkin Nuñez) - Lab Data Lab Results 03/25/22 03/25/22 03/25/22 Range/Units 00:15 00:15 00:44 WBC 7.2 (3.8-10.6) k/uL RBC 4.37 (4.30-5.90) m/uL Hgb 13.4 (13.0-17.5) gm/dL Hct 42.3 (39.0-53.0) % MCV 96.8 (80.0-100.0) fL MCH 30.6 (25.0-35.0) pg MCHC 31.6 (31.0-37.0) g/dL RDW 19.5 H (11.5-15.5) % Plt Count 136 L (150-450) k/uL MPV 10.0 Neutrophils % (Manual) 86 % Band Neuts % (Manual) 9 % Lymphocytes % (Manual) 2 % Monocytes % (Manual) 3 % Neutrophils # (Manual) 6.80 (1.3-7.7) k/uL Lymphocytes # (Manual) 0.14 L (1.0-4.8) k/uL Monocytes # (Manual) 0.22 (0-1.0) k/uL Nucleated RBCs 2 H (0-0) /100 WBC Manual Slide Review Performed Hypochromasia Slight Anisocytosis Slight Macrocytosis Slight PT (9.0-12.0) sec INR (<1.2) APTT (22.0-30.0) sec Sodium (137-145) mmol/L Potassium (3.5-5.1) mmol/L Chloride (98-107) mmol/L Carbon Dioxide (22-30) mmol/L Anion Gap mmol/L BUN (9-20) mg/dL Creatinine (0.66-1.25) mg/dL Est GFR (CKD-EPI)AfAm (>60 ml/min/1.73 sqM) Est GFR (CKD-EPI)NonAf (>60 ml/min/1.73 sqM) Glucose (74-99) mg/dL Plasma Lactic Acid Jeromy (0.7-2.0) mmol/L Calcium (8.4-10.2) mg/dL Magnesium (1.6-2.3) mg/dL Total Bilirubin (0.2-1.3) mg/dL AST (17-59) U/L ALT (4-49) U/L Alkaline Phosphatase (38-126) U/L Total Protein (6.3-8.2) g/dL Albumin (3.5-5.0) g/dL Influenza Type A (PCR) Not Detected (Not Detectd) Influenza Type B (PCR) Not Detected (Not Detectd) RSV (PCR) Not Detected (Not Detectd) SARS-CoV-2 (PCR) Not Detected (Not Detectd) Blood Type Recheck No Previous Record Bld Type Recheck Status CABO Indicated Spec Expiration Date 03/28/2022 - 6 03/25/22 03/25/22 03/25/22 Range/Units 00:44 00:44 00:44 WBC (3.8-10.6) k/uL RBC (4.30-5.90) m/uL Hgb (13.0-17.5) gm/dL Hct (39.0-53.0) % MCV (80.0-100.0) fL MCH (25.0-35.0) pg MCHC (31.0-37.0) g/dL RDW (11.5-15.5) % Plt Count (150-450) k/uL MPV Neutrophils % (Manual) % Band Neuts % (Manual) % Lymphocytes % (Manual) % Monocytes % (Manual) % Neutrophils # (Manual) (1.3-7.7) k/uL Lymphocytes # (Manual) (1.0-4.8) k/uL Monocytes # (Manual) (0-1.0) k/uL Nucleated RBCs (0-0) /100 WBC Manual Slide Review Hypochromasia Anisocytosis Macrocytosis PT 9.9 (9.0-12.0) sec INR 0.9 (<1.2) APTT 20.6 L (22.0-30.0) sec Sodium 138 (137-145) mmol/L Potassium 4.3 (3.5-5.1) mmol/L Chloride 101 (98-107) mmol/L Carbon Dioxide 27 (22-30) mmol/L Anion Gap 10 mmol/L BUN 61 H (9-20) mg/dL Creatinine 1.66 H (0.66-1.25) mg/dL Est GFR (CKD-EPI)AfAm 49 (>60 ml/min/1.73 sqM) Est GFR (CKD-EPI)NonAf 42 (>60 ml/min/1.73 sqM) Glucose 144 H (74-99) mg/dL Plasma Lactic Acid Jeromy 3.8 H* (0.7-2.0) mmol/L Calcium 9.2 (8.4-10.2) mg/dL Magnesium 2.1 (1.6-2.3) mg/dL Total Bilirubin 0.6 (0.2-1.3) mg/dL AST 28 (17-59) U/L ALT 30 (4-49) U/L Alkaline Phosphatase 71 (38-126) U/L Total Protein 5.4 L (6.3-8.2) g/dL Albumin 3.0 L (3.5-5.0) g/dL Influenza Type A (PCR) (Not Detectd) Influenza Type B (PCR) (Not Detectd) RSV (PCR) (Not Detectd) SARS-CoV-2 (PCR) (Not Detectd) Blood Type Recheck Bld Type Recheck Status Spec Expiration Date Disposition <Bayudan,Trung D - Last Filed: 03/25/22 00:35> Is patient prescribed a controlled substance at d/c from ED?: No <Elkin Nuñez - Last Filed: 03/25/22 02:46> Clinical Impression: Dehydration, Uremia, DUNCAN (acute kidney injury), Medication reaction, Oral thrush, Myalgia, Protein calorie malnutrition Disposition: ADMITTED IP TO THIS HOSP Condition: Fair Referrals: Elkin Pierson MD [Primary Care Provider] - 1-2 days
[2022-03-25] MEDS ORDERED: FLUCONAZOLE 100 MG TAB PO ONE (00:36)
[2022-03-25] MEDS ORDERED: VANCOMYCIN IV PER PHARMACY 1 EACH MISC MISCELLANE PRN (00:37)
[2022-03-25] MEDS ORDERED: VANCOMYCIN 1,750 MG in SODIUM CHLORIDE 0.9% 500 ML 500 ML IVPB STA (00:44)
[2022-03-25 00:55] LABS: Anisocytosis Slight; HCT 42.3 % (39.0-53.0); HGB 13.4 gm/dL (13.0-17.5); Hypochromasia Slight; MCH 30.6 pg (25.0-35.0); MCHC 31.6 g/dL (31.0-37.0); MCV 96.8 fL (80.0-100.0); Macrocytosis Slight; Platelet Count 136 k/uL (150-450); RBC 4.37 m/uL (4.30-5.90); RDW 19.5 % (11.5-15.5)
[2022-03-25 01:06] LABS: Calcium 9.2 mg/dL (8.4-10.2); Magnesium 2.1 mg/dL (1.6-2.3); Potassium 4.3 mmol/L (3.5-5.1); Total Bilirubin 0.6 mg/dL (0.2-1.3); Total Protein 5.4 g/dL (6.3-8.2)
[2022-03-25 01:10] LABS: INR 0.9 (<1.2); Partial Thromboplastin Time 20.6 sec (22.0-30.0); Prothrombin Time 9.9 sec (9.0-12.0)
--- NOTE | 2022-03-25 01:40 | XR ---
EXAMINATION TYPE: XR chest 1V DATE OF EXAM: 03/25/2022 COMPARISON: 06/01/2021 HISTORY: Fever TECHNIQUE: Single view FINDINGS: Heart is normal. Lungs are clear of infiltrate. No heart failure. There are no hilar masses . IMPRESSION: No active cardiopulmonary disease. Normal heart. No change.
[2022-03-25 01:55] LABS: Band Neutrophils % 9 %; Lymphocytes # (M) 0.14 k/uL (1.0-4.8); Monocytes # (M) 0.22 k/uL (0-1.0); Neutrophils % (M) 86 %; Nucleated Red Blood Cells 2 /100 WBC (0-0); Total Cells Counted 100; WBC 7.2 k/uL (3.8-10.6)
[2022-03-25] MEDS ORDERED: LORazepam 2 MG/ML INJ IV PRN (02:43)
[2022-03-25] MEDS ORDERED: ONDANSETRON 4 MG/2 ML VIAL IVP PRN (02:43)
[2022-03-25] MEDS ORDERED: NALOXONE 0.4 MG/ML 1 ML VIAL IV PRN ×2 (02:43→15:17)
[2022-03-25] MEDS: SODIUM CHLORIDE 0.9% 1,000 ML IV SCH ×3 (03:34→15:28)
--- NOTE | 2022-03-25 04:47 | P.HPIM ---
History of Present Illness H&P Date: 03/25/22 Patient is a 66-year-old male with a PMH of multiple myeloma currently undergoing chemotherapy who presented to the emergency room with complaints of lethargy and left lower extremity cellulitis. Patient reports that he recently started a new chemotherapeutic agent which the first dose he received yesterday with Dr. Mensah. He reports developing lethargy shortly after the infusion. Reports being diagnosed with oral thrush 10 days ago and currently taking fluconazole. Also reports completing a 5 day course of oral antibiotics for left lower extremity cellulitis. Notes however that despite the antibiotics, he continues to have left lower extremity pain and swelling. The patient and his w leonardo are adamant that his symptoms are likely caused by his new chemotherapeutic agent. The patient denied experiencing chest discomfort or shortness of breath. Also denied focal weakness, fever, chills, abdominal pain, nausea, vomiting, diarrhea. Chest x-ray in the emergency room was unremarkable. Laboratory evaluation was remarkable for lactic acid 3.8, BUN 61, creatinine 1.6 (similar to baseline) and platelet count 136 (down from 219 in 01/2022). Review of systems: Pertinent positives and negatives as discussed in HPI, a complete review of systems was performed and all other systems are negative. Physical examination: General: non toxic, no distress, appears at stated age, obese Derm: no unusual ecchymoses, warm, dry Head: atraumatic, normocephalic, symmetric Eyes: EOMI, no lid lag, anicteric sclera, pupils equal round reactive to light ENT: Nose and ears atraumatic, thrush noted, no pharyngeal erythema Neck: No thyromegaly, no cervical lymphadenopathy, trachea midline, supple Mouth: no lip lesion, mucus membranes moist Cardiovascular: S1S2 reg, no murmur, positive posterior tibial pulse bilateral, left lower extremity 2+ pitting edema with erythema of the foot extending to mention, right lower extremity 1+ pitting edema without erythema or tenderness, capillary refill less than 2 seconds Lungs: CTA bilateral, no rhonchi, no rales , no accessory muscle use Abdominal: soft, nontender to palpation, no guarding, no appreciable organomegaly, normal bowel sounds Ext: no gross muscle atrophy, muscle strength 5 out of 5 in all 4 extremities grossly, no contractures, Neuro: CN II-XI grossly intact, light touch intact all 4 extremities, finger to nose within normal limits, Psych: Alert, oriented, appropriate affect Assessment/plan Left lower extremities cellulitis with significant edema -Obtain Doppler -Continue with IV vancomycin -F/u cultures Lethargy in setting of new chemotherapeutic agent for multiple myeloma -Hematology consult Lactic acidosis -Monitor for resolution Thrush -Continue Diflucan Thrombocytopenia, may be due to new chemotherapeutic agent -Monitor for now -Hematology consulted DVT prophylaxis -Damaris The patient is admitted with an anticipated less than 2 midnight stay for evaluation of LLE cellulitis CODE STATUS: Full Code Discussed with: Patient Anticipated discharge date: in am Anticipated discharge place: Home 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, gait dysfunction-uses walker, bilateral pedal/ankle edema, PE 08/2019, chronic low back pain, past vertebral fractures, minimal CAD, shingelles twice, past R heel wound, elevated lipids in the past, History of Any Multi-Drug Resistant Organisms: None Reported Past Surgical History: Heart Catheterization, Orthopedic Surgery Additional Past Surgical History / Comment(s): excision of uvular lesion(benign) 2009, colonoscopy, dave knee arthroscopy, rt rotator cuff sx, moles removed from back(benign), bone marrow aspiration/bx, stem cell transplant 2015, Past Anesthesia/Blood Transfusion Reactions: No Reported Reaction Past Psychological History: No Psychological Hx Reported Smoking Status: Never smoker Past Alcohol Use History: None Reported Past Drug Use History: None Reported - Past Family History Father Family Medical History: Renal Disease, Vascular Disorder Additional Family Medical History / Comment(s): aaa. Father is . Mother Family Medical History: No Reported History Additional Family Medical History / Comment(s): mom is healthy Medications and Allergies Home Medications Medication Instructions Recorded Confirmed Type oxyCODONE HCL [OxyIR] 5 mg PO QID PRN 02/05/17 12/16/21 History Famotidine [Pepcid] 20 mg PO DAILY PRN 04/15/19 12/16/21 History Gabapentin [Neurontin] 300 mg PO TID 04/15/19 12/16/21 History dexAMETHasone 8 mg PO WE 04/15/19 12/16/21 History Acyclovir 400 mg PO BID 08/24/19 12/16/21 History Pomalyst 3mg 3 mg PO DIRECTED 08/24/19 12/16/21 History Aspirin 81 mg PO DAILY #30 chewable 08/26/19 12/16/21 Rx Apixaban [Eliquis] 5 mg PO BID 10/03/19 12/16/21 History Nitroglycerin Sl Tabs [Nitrostat] 0.4 mg SUBLINGUAL Q5M PRN 10/03/19 12/16/21 History Calcium Carbonate/Vitamin D3 1 cap PO DAILY@1200 01/10/20 12/16/21 History [Calcium 600-Vit D3 20 Mcg (800 Iu)] Potassium Chloride ER [K-Dur 20] 20 meq PO DAILY@1200 01/10/20 12/16/21 History Furosemide [Lasix] 20 mg PO DAILY PRN 05/31/21 12/16/21 History Acetaminophen Tab [Tylenol] 650 mg PO Q6HR PRN tab 06/03/21 12/16/21 Rx Lidocaine [Lidoderm 5% Patch] 1 patch TRANSDERM DAILY #25 patch 12/16/21 Rx Multivitamins, Thera [Multivitamin 1 tab PO DAILY 12/16/21 12/16/21 History (formulary)] Allergies Allergy/AdvReac Type Severity Reaction Status Date / Time sulfamethoxazole Allergy Rash/Hives Verified 03/24/22 23:01 [From Bactrim] trimethoprim [From Bactrim] Allergy Rash/Hives Verified 03/24/22 23:01 Physical Exam Vitals: Vital Signs Temp Pulse Resp BP Pulse Ox 03/25/22 02:35 70 18 157/94 99 03/24/22 22:55 98.3 F 102 H 22 129/88 100 Intake and Output 03/24/22 03/24/22 03/25/22 14:59 22:59 06:59 Other: Weight 99.79 kg Results CBC & Chem 7: 03/25/22 00:44 03/25/22 00:44 Labs: Abnormal Lab Results - Last 24 Hours (Table) 03/25/22 03/25/22 03/25/22 Range/Units 00:44 00:44 00:44 RDW 19.5 H (11.5-15.5) % Plt Count 136 L (150-450) k/uL Lymphocytes # (Manual) 0.14 L (1.0-4.8) k/uL Nucleated RBCs 2 H (0-0) /100 WBC APTT 20.6 L (22.0-30.0) sec BUN 61 H (9-20) mg/dL Creatinine 1.66 H (0.66-1.25) mg/dL Glucose 144 H (74-99) mg/dL Plasma Lactic Acid Jeromy (0.7-2.0) mmol/L Total Protein 5.4 L (6.3-8.2) g/dL Albumin 3.0 L (3.5-5.0) g/dL 03/25/22 Range/Units 00:44 RDW (11.5-15.5) % Plt Count (150-450) k/uL Lymphocytes # (Manual) (1.0-4.8) k/uL Nucleated RBCs (0-0) /100 WBC APTT (22.0-30.0) sec BUN (9-20) mg/dL Creatinine (0.66-1.25) mg/dL Glucose (74-99) mg/dL Plasma Lactic Acid Jeromy 3.8 H* (0.7-2.0) mmol/L Total Protein (6.3-8.2) g/dL Albumin (3.5-5.0) g/dL
[2022-03-25 06:40] LABS: Appearance,Urine Clear (Clear); Bilirubin,Urine Negative (Negative); Blood,Urine Negative (Negative); Color,Urine Light Yellow; Glucose,Urine (UA) Negative (Negative); Ketones,Urine Negative (Negative); Leukocyte Esterase,Urine Negative (Negative); Nitrite,Urine Negative (Negative); PH, Urine 6.5 (5.0-8.0); Protein,Urine Trace (Negative); Urobilinogen,Urine <2.0 mg/dL (<2.0)
--- NOTE | 2022-03-25 08:00 | US ---
EXAMINATION TYPE: US venous doppler duplex LE LT DATE OF EXAM: 03/25/2022 7:43 AM COMPARISON: US 2021 CLINICAL HISTORY: DVT. Left leg swelling, patient on blood thinners SIDE PERFORMED: Left TECHNIQUE: The lower extremity deep venous system is examined utilizing real time linear array sonog lisseth with graded compression, doppler sonography and color-flow sonography. VESSELS IMAGED: Common Femoral Vein Deep Femoral Vein Greater Saphenous Vein * Femoral Vein Popliteal Vein Small Saphenous Vein * Proximal Calf Veins (* superficial vessels) Left Leg: Appears negative for DVT IMPRESSION: Grayscale, color doppler, spectral doppler imaging performed of the deep veins of the lo wer extremities. There is normal flow, compressibility, vascular waveforms.
[2022-03-25] MEDS: FLUCONAZOLE 100 MG TAB PO SCH (09:56)
[2022-03-25] MEDS: MORPHINE SULFATE 4 MG/ML SYRINGE IV PRN ×2 (11:36→15:35)
[2022-03-25] MEDS ORDERED: FUROSEMIDE 20 MG TAB PO PRN (15:03)
[2022-03-25] MEDS ORDERED: CHEMO INFUSION IV SCH (15:15)
[2022-03-25] MEDS ORDERED: LOPERAMIDE 2 MG CAP PO PRN (15:17)
[2022-03-25] MEDS ORDERED: ACETAMINOPHEN TAB 325 MG TAB PO PRN (15:17)
[2022-03-25] MEDS: ASPIRIN 81 MG PO SCH (15:27)
[2022-03-25] MEDS: GABAPENTIN 300 MG CAP PO SCH ×2 (15:27→20:35)
[2022-03-25] MEDS ORDERED: SODIUM CHLORIDE 0.9% 1,000 ML IV ONE (18:07)
[2022-03-25] MEDS: APIXABAN 5 MG TAB PO SCH (20:35)
[2022-03-25] MEDS: ACYCLOVIR 200 MG CAP PO SCH (20:44)
[2022-03-25] MEDS: VANCOMYCIN 1,750 MG in SODIUM CHLORIDE 0.9% 500 ML 500 ML IVPB SCH (21:13)
[2022-03-25] MEDS: FAMOTIDINE 20 MG TAB PO PRN (22:36)
[2022-03-26] MEDS: SODIUM CHLORIDE 0.9% 1,000 ML IV SCH ×3 (04:42→23:39)
[2022-03-26] MEDS: APIXABAN 5 MG TAB PO SCH ×2 (08:38→19:49)
[2022-03-26] MEDS: GABAPENTIN 300 MG CAP PO SCH ×3 (08:38→20:49)
[2022-03-26] MEDS: ASPIRIN 81 MG PO SCH (08:38)
[2022-03-26] MEDS: MORPHINE SULFATE 4 MG/ML SYRINGE IV PRN (08:38)
[2022-03-26] MEDS: FLUCONAZOLE 100 MG TAB PO SCH (08:38)
[2022-03-26] MEDS: ACYCLOVIR 200 MG CAP PO SCH ×2 (08:42→19:48)
[2022-03-26] MEDS ORDERED: dexAMETHasone 4 MG TAB PO SCH (09:00)
[2022-03-26 10:17] LABS: Albumin 2.3 g/dL (3.5-5.0); Calcium 7.2 mg/dL (8.4-10.2); Magnesium 1.9 mg/dL (1.6-2.3); Phosphorus 3.1 mg/dL (2.5-4.5); Potassium 3.9 mmol/L (3.5-5.1); Total Bilirubin 0.5 mg/dL (0.2-1.3); Total Protein 4.5 g/dL (6.3-8.2)
[2022-03-26 10:23] LABS: Anisocytosis Slight; Basophils # (A) 0.1 k/uL (0-0.2); Basophils % (A) 1 %; Eosinophils % (A) 0 %; HCT 38.4 % (39.0-53.0); HGB 11.8 gm/dL (13.0-17.5); Hypochromasia Marked; Lymphocytes # (A) 0.1 k/uL (1.0-4.8); Lymphocytes % (A) 1 %; MCH 30.8 pg (25.0-35.0); MCHC 30.7 g/dL (31.0-37.0); MCV 100.5 fL (80.0-100.0); Macrocytosis Moderate; Mean Platelet Volume 11.1; Monocytes # (A) 0.2 k/uL (0-1.0); Monocytes % (A) 2 %; Neutrophils % (A) 95 %; RBC 3.82 m/uL (4.30-5.90); RDW 19.4 % (11.5-15.5); WBC 8.3 k/uL (3.8-10.6)
--- NOTE | 2022-03-26 11:42 | P.PN ---
Subjective Progress Note Date: 03/26/22 Patient is a 66-year-old male with a PMH of multiple myeloma currently undergoing chemotherapy who presented to the emergency room with complaints of lethargy and left lower extremity cellulitis. Patient reports that he recently started a new chemotherapeutic agent which the first dose he received yesterday with Dr. Mensah. He reports developing lethargy shortly after the infusion. Reports being diagnosed with oral thrush 10 days ago and currently taking fluconazole. Also reports completing a 5 day course of oral antibiotics for left lower extremity cellulitis. Notes however that despite the antibiotics, he continues to have left lower extremity pain and swelling. The patient and his are adamant that his symptoms are likely caused by his new chemotherapeutic agent. The patient denied experiencing chest discomfort or shortness of breath. Also denied focal weakness, fever, chills, abdominal pain, nausea, vomiting, diarrhea. Chest x-ray in the emergency room was unremarkable. Laboratory evaluation was remarkable for lactic acid 3.8, BUN 61, creatinine 1.6 (similar to baseline) and platelet count 136 (down from 219 in 01/2022). Review of systems: Pertinent positives and negatives as discussed in HPI, a complete review of systems was performed and all other systems are negative. Physical examination: General: non toxic, no distress, appears at stated age, obese Derm: no unusual ecchymoses, warm, dry Head: atraumatic, normocephalic, symmetric Eyes: EOMI, no lid lag, anicteric sclera, pupils equal round reactive to light ENT: Nose and ears atraumatic, thrush noted, no pharyngeal erythema Neck: No thyromegaly, no cervical lymphadenopathy, trachea midline, supple Mouth: no lip lesion, mucus membranes moist Cardiovascular: S1S2 reg, no murmur, positive posterior tibial pulse bilateral, left lower extremity 2+ pitting edema with erythema of the foot extending to mention, right lower extremity 1+ pitting edema without erythema or tenderness, capillary refill less than 2 seconds Lungs: CTA bilateral, no rhonchi, no rales , no accessory muscle use Abdominal: soft, nontender to palpation, no guarding, no appreciable organomegaly, normal bowel sounds Ext: no gross muscle atrophy, muscle strength 5 out of 5 in all 4 extremities grossly, no contractures, Neuro: CN II-XI grossly intact, light touch intact all 4 extremities, finger to nose within normal limits, Psych: Alert, oriented, appropriate affect Assessment/plan Patient is likely septic from cellulitis we will add cefepime and continue patient on vancomycin and monitor closely Left lower extremities cellulitis with significant edema -Obtain Doppler -Continue with IV vancomycin -F/u cultures Lethargy in setting of new chemotherapeutic agent for multiple myeloma -Hematology consult Lactic acidosis -Monitor for resolution Thrush -Continue Diflucan Thrombocytopenia, may be due to new chemotherapeutic agent -Monitor for now -Hematology consulted DVT prophylaxis -Damaris The patient is admitted with an anticipated less than 2 midnight stay for evaluation of LLE cellulitis CODE STATUS: Full Code Discussed with: Patient Anticipated discharge date: in am Anticipated discharge place: Home Objective - Vital Signs Vital signs: Vital Signs Temp 98.0 F 03/26/22 08:17 Pulse 70 03/26/22 08:17 Resp 18 03/26/22 08:17 BP 149/97 03/26/22 08:17 Pulse Ox 97 03/26/22 08:17 FiO2 Intake & Output 03/25/22 03/26/22 03/26/22 18:59 06:59 18:59 Intake Total 240 240 Balance 240 240 Weight 99.79 kg Intake: Oral 240 240 Other: Voiding Method Urinal Urinal # Voids 3 - Labs CBC & Chem 7: 03/26/22 08:58 03/26/22 08:58 Labs: Abnormal Lab Results - Last 24 Hours (Table) 03/25/22 03/25/22 03/25/22 Range/Units 03:20 11:38 15:27 RBC (4.30-5.90) m/uL Hgb (13.0-17.5) gm/dL Hct (39.0-53.0) % MCV (80.0-100.0) fL MCHC (31.0-37.0) g/dL RDW (11.5-15.5) % Chloride (98-107) mmol/L Carbon Dioxide (22-30) mmol/L BUN (9-20) mg/dL Creatinine (0.66-1.25) mg/dL Plasma Lactic Acid Jeromy 5.9 H* 5.0 H* (0.7-2.0) mmol/L Calcium (8.4-10.2) mg/dL Total Protein (6.3-8.2) g/dL Albumin (3.5-5.0) g/dL Blood Bank Comment Sent to [facility] A Reference Lab Result See [facility] REF Reports A 03/25/22 03/25/22 03/26/22 Range/Units 18:21 21:53 00:40 RBC (4.30-5.90) m/uL Hgb (13.0-17.5) gm/dL Hct (39.0-53.0) % MCV (80.0-100.0) fL MCHC (31.0-37.0) g/dL RDW (11.5-15.5) % Chloride (98-107) mmol/L Carbon Dioxide (22-30) mmol/L BUN (9-20) mg/dL Creatinine (0.66-1.25) mg/dL Plasma Lactic Acid Jeromy 2.6 H* 2.2 H* 2.3 H* (0.7-2.0) mmol/L Calcium (8.4-10.2) mg/dL Total Protein (6.3-8.2) g/dL Albumin (3.5-5.0) g/dL Blood Bank Comment Reference Lab Result 03/26/22 03/26/22 03/26/22 Range/Units 08:29 08:58 08:58 RBC 3.82 L (4.30-5.90) m/uL Hgb 11.8 L (13.0-17.5) gm/dL Hct 38.4 L (39.0-53.0) % MCV 100.5 H (80.0-100.0) fL MCHC 30.7 L (31.0-37.0) g/dL RDW 19.4 H (11.5-15.5) % Chloride 111 H (98-107) mmol/L Carbon Dioxide 19 L (22-30) mmol/L BUN 44 H (9-20) mg/dL Creatinine 1.56 H (0.66-1.25) mg/dL Plasma Lactic Acid Jeromy 3.6 H* (0.7-2.0) mmol/L Calcium 7.2 L (8.4-10.2) mg/dL Total Protein 4.5 L (6.3-8.2) g/dL Albumin 2.3 L (3.5-5.0) g/dL Blood Bank Comment Reference Lab Result Microbiology - Last 24 Hours (Table) 03/25/22 00:15 Blood Culture - Preliminary Blood No Growth after 24 hours
[2022-03-26] MEDS: CEFEPIME 2 GM in SODIUM CHLORIDE 0.9% 100 ML IVPB SCH ×2 (12:24→19:49)
[2022-03-26 13:28] LABS: Platelet Count 90 k/uL (150-450)
[2022-03-26 13:29] LABS: Toxic Granulation Present
--- NOTE | 2022-03-26 14:15 | P.PN ---
Subjective Progress Note Date: 03/26/22 Principal diagnosis: Patient feels okay continues to be weak did have an episode of hypotension last night Patient is a 66-year-old male with a PMH of multiple myeloma currently und ergoing chemotherapy who presented to the emergency room with complaints of lethargy and left lower extremity cellulitis. Patient reports that he recently started a new chemotherapeutic agent which the first dose he received yesterday with Dr. Mensah. He reports developing lethargy shortly after the infusion. Reports being diagnosed with oral thrush 10 days ago and currently taking fluconazole. Also reports completing a 5 day course of oral antibiotics for left lower extremity cellulitis. Notes however that despite the antibiotics, he continues to have left lower extremity pain and swelling. The patient and his are adamant that his symptoms are likely caused by his new chemotherapeutic agent. The patient denied experiencing chest discomfort or shortness of breath. Also denied focal weakness, fever, chills, abdominal pain, nausea, vomiting, diarrhea. Chest x-ray in the emergency room was unremarkable. Laboratory evaluation was remarkable for lactic acid 3.8, BUN 61, creatinine 1.6 (similar to baseline) and platelet count 136 (down from 219 in 01/2022). Review of systems: Pertinent positives and negatives as discussed in HPI, a complete review of systems was performed and all other systems are negative. Physical examination: General: non toxic, no distress, appears at stated age, obese Derm: no unusual ecchymoses, warm, dry Head: atraumatic, normocephalic, symmetric Eyes: EOMI, no lid lag, anicteric sclera, pupils equal round reactive to light ENT: Nose and ears atraumatic, thrush noted, no pharyngeal erythema Neck: No thyromegaly, no cervical lymphadenopathy, trachea midline, supple Mouth: no lip lesion, mucus membranes moist Cardiovascular: S1S2 reg, no murmur, positive posterior tibial pulse bilateral, left lower extremity 2+ pitting edema with erythema of the foot extending to mention, right lower extremity 1+ pitting edema without erythema or tenderness, capillary refill less than 2 seconds Lungs: CTA bilateral, no rhonchi, no rales , no accessory muscle use Abdominal: soft, nontender to palpation, no guarding, no appreciable organomegaly, normal bowel sounds Ext: no gross muscle atrophy, muscle strength 5 out of 5 in all 4 extremities grossly, no contractures, Neuro: CN II-XI grossly intact, light touch intact all 4 extremities, finger to nose within normal limits, Psych: Alert, oriented, appropriate affect Assessment/plan Sepsis due to cellulitis overall slowly improving patient is on Vanco and cefepime monitor closely Left lower extremities cellulitis with significant edema -Obtain Doppler -Continue with IV vancomycin -F/u cultures Lethargy in setting of new chemotherapeutic agent for multiple myeloma -Hematology consult Lactic acidosis -Monitor for resolution Thrush -Continue Diflucan Thrombocytopenia, may be due to new chemotherapeutic agent -Monitor for now -Hematology consulted DVT prophylaxis -Eliquis The patient is admitted with an anticipated less than 2 midnight stay for evaluation of LLE cellulitis CODE STATUS: Full Code Discussed with: Patient Anticipated discharge date: in am Anticipated discharge place: Home 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, gait dysfunction-uses walker, bilateral pedal/ankle edema, PE 08/2019, chronic low back pain, past vertebral fractures, minimal CAD, shingelles twice, past R heel wound, elevated lipids in the past, History of Any Multi-Drug Resistant Organisms: None Reported Past Surgical History: Heart Catheterization, Orthopedic Surgery Additional Past Surgical History / Comment(s): excision of uvular lesion(benign) 2009, colonoscopy, dave knee arthroscopy, rt rotator cuff sx, moles removed from back(benign), bone marrow aspiration/bx, stem cell transplant 2015, Past Anesthesia/Blood Transfusion Reactions: No Reported Reaction Past Psychological History: No Psychological Hx Reported Smoking Status: Never smoker Past Alcohol Use History: None Reported Past Drug Use History: None Reported - Past Family History Father Family Medical History: Renal Disease, Vascular Disorder Additional Family Medical History / Comment(s): aaa. Father is . Mother Family Medical History: No Reported History Additional Family Medical History / Comment(s): mom is healthy Objective - Vital Signs Vital signs: Vital Signs Temp 98.0 F 03/26/22 08:17 Pulse 70 03/26/22 08:17 Resp 18 03/26/22 08:17 BP 149/97 03/26/22 08:17 Pulse Ox 97 03/26/22 08:17 FiO2 Intake & Output 03/25/22 03/26/22 03/26/22 18:59 06:59 18:59 Intake Total 240 240 Balance 240 240 Weight 99.79 kg Intake: Oral 240 240 Other: Voiding Method Urinal Urinal # Voids 3 - Labs CBC & Chem 7: 03/26/22 08:58 03/26/22 08:58 Labs: Abnormal Lab Results - Last 24 Hours (Table) 03/25/22 03/25/22 03/25/22 Range/Units 03:20 15:27 18:21 RBC (4.30-5.90) m/uL Hgb (13.0-17.5) gm/dL Hct (39.0-53.0) % MCV (80.0-100.0) fL MCHC (31.0-37.0) g/dL RDW (11.5-15.5) % Plt Count (150-450) k/uL Neutrophils # (1.3-7.7) k/uL Lymphocytes # (1.0-4.8) k/uL Chloride (98-107) mmol/L Carbon Dioxide (22-30) mmol/L BUN (9-20) mg/dL Creatinine (0.66-1.25) mg/dL Plasma Lactic Acid Jeromy 5.0 H* 2.6 H* (0.7-2.0) mmol/L Calcium (8.4-10.2) mg/dL Total Protein (6.3-8.2) g/dL Albumin (3.5-5.0) g/dL Blood Bank Comment Sent to [facility] A Reference Lab Result See [facility] REF Reports A 03/25/22 03/26/22 03/26/22 Range/Units 21:53 00:40 08:29 RBC (4.30-5.90) m/uL Hgb (13.0-17.5) gm/dL Hct (39.0-53.0) % MCV (80.0-100.0) fL MCHC (31.0-37.0) g/dL RDW (11.5-15.5) % Plt Count (150-450) k/uL Neutrophils # (1.3-7.7) k/uL Lymphocytes # (1.0-4.8) k/uL Chloride (98-107) mmol/L Carbon Dioxide (22-30) mmol/L BUN (9-20) mg/dL Creatinine (0.66-1.25) mg/dL Plasma Lactic Acid Jeromy 2.2 H* 2.3 H* 3.6 H* (0.7-2.0) mmol/L Calcium (8.4-10.2) mg/dL Total Protein (6.3-8.2) g/dL Albumin (3.5-5.0) g/dL Blood Bank Comment Reference Lab Result 03/26/22 03/26/22 Range/Units 08:58 08:58 RBC 3.82 L (4.30-5.90) m/uL Hgb 11.8 L (13.0-17.5) gm/dL Hct 38.4 L (39.0-53.0) % MCV 100.5 H (80.0-100.0) fL MCHC 30.7 L (31.0-37.0) g/dL RDW 19.4 H (11.5-15.5) % Plt Count 90 L (150-450) k/uL Neutrophils # 8.0 H (1.3-7.7) k/uL Lymphocytes # 0.1 L (1.0-4.8) k/uL Chloride 111 H (98-107) mmol/L Carbon Dioxide 19 L (22-30) mmol/L BUN 44 H (9-20) mg/dL Creatinine 1.56 H (0.66-1.25) mg/dL Plasma Lactic Acid Jeromy (0.7-2.0) mmol/L Calcium 7.2 L (8.4-10.2) mg/dL Total Protein 4.5 L (6.3-8.2) g/dL Albumin 2.3 L (3.5-5.0) g/dL Blood Bank Comment Reference Lab Result Microbiology - Last 24 Hours (Table) 03/25/22 00:15 Blood Culture - Preliminary Blood No Growth after 24 hours
--- NOTE | 2022-03-26 16:51 | P.CONS ---
History of Present Illness - Reason for Consult Consult date: 03/26/22 multiple myeloma Requesting physician: Rui Coronel - Chief Complaint lower extremity swelling, lethargy - History of Present Illness Mr Paul is a very pleasant patient of Dr. Browning, well-known to the practice, he presents to ER with c/o persistent lethargy and progressive LLE pain, swelling, redness. Lethargy started shortly after receiving his first kyprolils infusion. He was on oral antibiotics for the LLE cellulitis, no alleviation of symptoms. He was diagnosed with oral thrush 10 days ago, on fluconazole. Pt denies fever, chills, oral irritation and thrush persist, no nausea, vomiting, chest pain, cough, sore throat, abd pain, diarrhea, or constipation. He has chronic low back pain 2/2 myeloma lesion on spine, not progressive, no other c/o. Chest x-ray unremarkable. Lactic acid elevated, pt is on abx. Baseline renal function. CBC mostly normal, no concerning values requiring intervention. Malignancy history: Mr. Paul has a long history of treatment for multiple myeloma. Initially presented with progressive back pain that started in August 2015. Workup ultimately revealed elevated calcium, protein, creatinine, decreased hemoglobin, IgG lambda monoclonal protein, M protein 6.8 g/dL normal kappa lambda ratio. He also had osteoporotic compression fractures. 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 Started RVD 01/11/16, completed 4 cycles, repeat bone marrow revealed minimal residual disease. Underwent autologous stem cell transplant 08/27/16. Started maintenance revlimid end of December 2016, with doses held and reduced for pancytopenia over the years he was on it. He started to have worsening back pain in January 2019, MRI of his lumbar spine 03/10/19 revealed progressing soft tissue mass at L2 c ausing compression of the thecal sac and L3 nerve root and new paraspinal soft tissue mass at L4-L5, M-protein was up to 2.2gm/dl, Ig level up to 3019mg/dl, free lambda level 148.9mg/L, ratio of 0.04, normal creatinine and calcium, repeat skeletal bone survey revealed no changes. 04/07/19 he started darzalex/pomalyst/decadron. April 2019 he had disseminated zoster and requires viral prophylaxis/suppression medication on active MM treatment. He was admitted early Aug 2019 for shortness of breath, chest pain, hypotension and mild tachycardia. CT of the chest was performed revealing pulmonary embolism, he continues on eliquis to current. Patient followed up with Dr. Browning in early March, c/o progressive back pain, imaging revealed some progression in vertebral bony lesions. IV regimen changed to kyrpolis, cont on pomalyst and dex as prescribed. S/P C1 D1. 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, gait dysfunction-uses walker, bilateral pedal/ankle edema, PE 08/2019, chronic low back pain, past vertebral fractures, minimal CAD, shingelles twice, past R heel wound, elevated lipids in the past, History of Any Multi-Drug Resistant Organisms: None Reported Past Surgical History: Heart Catheterization, Orthopedic Surgery Additional Past Surgical History / Comment(s): excision of uvular lesion(benign) 2009, colonoscopy, dave knee arthroscopy, rt rotator cuff sx, moles removed from back(benign), bone marrow aspiration/bx, stem cell transplant 2015, Past Anesthesia/Blood Transfusion Reactions: No Reported Reaction Smoking Status: Never smoker - Past Family History Father Family Medical History: Renal Disease, Vascular Disorder Additional Family Medical History / Comment(s): aaa. Father is . Mother Family Medical History: No Reported History Additional Family Medical History / Comment(s): mom is healthy Medications and Allergies Home Medications Medication Instructions Recorded Confirmed Type Famotidine [Pepcid] 20 mg PO DAILY PRN 04/15/19 03/25/22 History Gabapentin [Neurontin] 300 mg PO TID 04/15/19 03/25/22 History dexAMETHasone 8 mg PO WE 04/15/19 03/25/22 History Acyclovir 400 mg PO BID 08/24/19 03/25/22 History Pomalyst 3mg 3 mg PO DIRECTED 08/24/19 03/25/22 History Aspirin 81 mg PO DAILY #30 chewable 08/26/19 03/25/22 Rx Apixaban [Eliquis] 5 mg PO BID 10/03/19 03/25/22 History Nitroglycerin Sl Tabs [Nitrostat] 0.4 mg SUBLINGUAL Q5M PRN 10/03/19 03/25/22 History Calcium Carbonate/Vitamin D3 1 cap PO DAILY 01/10/20 03/25/22 History [Calcium 600-Vit D3 20 Mcg (800 Iu)] Potassium Chloride ER [K-Dur 20] 20 meq PO DAILY 01/10/20 03/25/22 History Furosemide [Lasix] 20 mg PO DAILY PRN 05/31/21 03/25/22 History Acetaminophen Tab [Tylenol] 650 mg PO Q6HR PRN tab 06/03/21 03/25/22 Rx Multivitamins, Thera [Multivitamin 1 tab PO DAILY 12/16/21 03/25/22 History (formulary)] Chemo Infusion (Unknown) 1 dose IV DIRECTED 03/25/22 03/25/22 History oxyCODONE HCL [oxyCODONE HCL (IR)] 10 - 20 mg PO Q4H PRN 03/25/22 03/25/22 History Allergies Allergy/AdvReac Type Severity Reaction Status Date / Time sulfamethoxazole Allergy Rash/Hives Verified 03/25/22 07:10 [From Bactrim] trimethoprim [From Bactrim] Allergy Rash/Hives Verified 03/25/22 07:10 Physical Exam Vitals: Vital Signs Temp Pulse Pulse Resp BP BP Pulse Ox 03/26/22 04:20 97.8 F 72 18 130/79 99 03/25/22 23:25 98.1 F 80 17 109/70 94 L 03/25/22 20:30 98.2 F 89 18 105/72 98 03/25/22 18:06 98.5 F 94 16 76/42 97 03/25/22 17:01 99 F 03/25/22 15:09 100 F H 104 H 103/60 98 03/25/22 13:34 98.4 F 75 19 138/84 100 03/25/22 11:00 98.8 F 81 16 114/76 95 03/25/22 09:00 88 18 168/87 97 Intake and Output 03/25/22 03/26/22 03/26/22 22:59 06:59 14:59 Intake Total 240 240 Balance 240 240 Intake: Oral 240 240 Other: Voiding Method Urinal Urinal # Voids 3 Weight 99.79 kg - Constitutional General appearance: average body habitus, cooperative, no acute distress - EENT Eyes: anicteric sclerae, EOMI ENT: hearing grossly normal, thrush - Neck Neck: no lymphadenopathy - Respiratory Respiratory: bilateral: CTA - Cardiovascular Rhythm: regular Heart sounds: normal: S1, S2 Abnormal Heart Sounds: no systolic murmur, no diastolic murmur, no rub, no S3 Gallop, no S4 Gallop, no click, no other leg Peripheral Edema: right: Trace, left: 2+ dorsalis pedis Peripheral Pulses: bilateral: Normal - Gastrointestinal General gastrointestinal: no absent bowel sounds, no decreased bowel sounds, no distended, no hepatomegaly, no hyperactive bowel sounds, normal bowel sounds, no organomegaly, no rigid, no scaphoid, soft, no splenomegaly, no tenderness, no umbilical hernia, no ventral hernia - Integumentary left lower extremity redness, warm to the touch, painful to the touch,there are 3 lesions on the lower extremity, about a half a centimeter each, look bruised, no blisters, no weeping - Neurologic Neurologic: CNII-XII intact - Musculoskeletal Musculoskeletal: generalized weakness, strength equal bilaterally - Psychiatric Psychiatric: A&O x's 3, appropriate affect, intact judgment & insight Results CBC & Chem 7: 03/26/22 08:58 03/26/22 08:58 Labs: Abnormal Lab Results - Last 24 Hours (Table) 03/25/22 03/25/22 03/25/22 Range/Units 08:30 11:38 15:27 Plasma Lactic Acid Jeromy 2.6 H* 5.9 H* 5.0 H* (0.7-2.0) mmol/L 03/25/22 03/25/22 03/26/22 Range/Units 18:21 21:53 00:40 Plasma Lactic Acid Jeromy 2.6 H* 2.2 H* 2.3 H* (0.7-2.0) mmol/L Microbiology - Last 24 Hours (Table) 03/25/22 00:15 Blood Culture - Preliminary Blood No Growth after 24 hours Chest x-ray: report reviewed Venous US: report reviewed Assessment and Plan (1) Cellulitis Current Visit: Yes Status: Acute Code(s): L03.90 - CELLULITIS, UNSPECIFIED SNOMED Code(s): 266222335 (2) Oral thrush Current Visit: Yes Status: Acute Priority: High Code(s): B37.0 - CANDIDAL STOMATITIS SNOMED Code(s): 09730611 (3) Multiple myeloma Current Visit: No Status: Chronic Priority: Medium Code(s): C90.00 - MULTIPLE MYELOMA NOT HAVING ACHIEVED REMISSION SNOMED Code(s): 350662473 Plan: left lower extremity cellulitis. Lactic acid elevated on admission.Doppler of the left lower he was negative for DVT. Blood cultures are currently negative at 24 hours. Chest x-ray negative. patient is receiving IV antibiotics. Continue to monitor the leg closely. Oral thrush persists. Patient is on antifungal medication. Patient had cycle 1, day 1 of IV Kyprolis. This will be on hold until his infection has cleared. Hold oral Pomalyst and dexamethasone
[2022-03-26] MEDS: FAMOTIDINE 20 MG TAB PO PRN (19:49)
[2022-03-26] MEDS: VANCOMYCIN 1,750 MG in SODIUM CHLORIDE 0.9% 500 ML 500 ML IVPB SCH (20:49)
[2022-03-27] MEDS: SODIUM CHLORIDE 0.9% 1,000 ML IV SCH ×2 (01:16→12:38)
[2022-03-27 04:52] VITALS: TEMP 98.2
[2022-03-27] MEDS: ACYCLOVIR 200 MG CAP PO SCH (08:44)
[2022-03-27] MEDS: CEFEPIME 2 GM in SODIUM CHLORIDE 0.9% 100 ML IVPB SCH (08:45)
[2022-03-27] MEDS: APIXABAN 5 MG TAB PO SCH (08:45)
[2022-03-27] MEDS: FLUCONAZOLE 100 MG TAB PO SCH (08:45)
[2022-03-27] MEDS: ASPIRIN 81 MG PO SCH (08:45)
[2022-03-27] MEDS: GABAPENTIN 300 MG CAP PO SCH (08:45)
[2022-03-27] MEDS: FAMOTIDINE 20 MG TAB PO PRN (08:55)
[2022-03-27 09:04] VITALS: RESP 16
[2022-03-27 11:43] LABS: Albumin 2.2 g/dL (3.5-5.0); Calcium 6.8 mg/dL (8.4-10.2); Potassium 3.7 mmol/L (3.5-5.1); Total Bilirubin 0.3 mg/dL (0.2-1.3); Total Protein 4.3 g/dL (6.3-8.2)
[2022-03-27 12:50] VITALS: BP 159/98; PULSE 68
--- NOTE | 2022-03-27 13:51 | P.DS ---
Providers Date of admission: 03/26/22 12:30 Expected date of discharge: 03/27/22 Attending physician: Day Choudhury MD Consults: 03/25/22 15:06 Consult Physician Routine Consulting Provider: Luis A Mcgowan Consult Reason/Comments: MM Do you want consulting provider notified?: Yes Primary care physician: [facility] Course: Sepsis due to cellulitis overall slowly improving patient is on Vanco and cefepime monitor closely Left lower extremities cellulitis with significant edema Lethargy in setting of new chemotherapeutic agent for multiple myeloma Lactic acidosis Thrush Thrombocytopenia, may be due to new chemotherapeutic agent Patient is a 66-year-old male with a PMH of multiple myeloma currently undergoing chemotherapy who presented to the emergency room with complaints of lethargy and left lower extremity cellulitis. Chest x-ray in the emergency room was unremarkable. Laboratory evaluation was remarkable for lactic acid 3.8, BUN 61, creatinine 1.6 (similar to baseline) and platelet count 136 (down from 219 in 01/2022). Venous doppler ruled out DVT. Pt was treated with vanc/cefepime, and blood cultures were followed. Noted that they were NGTD at 48 hours, and patient's cellulitis and pain profile had improved. Pt was subsequently discharged on oral clindamycin 300mg q6h for a total 10 day course with instructions to f/u with PCP early next week for cellulitis and hospital follow up. Pt was counseled on alarm symptoms to return to the ER such as: worsening pain, erythema; new fevers, chills, sweats, or any other concerning symptoms such as profuse diarrhea or other. I spent 36 minutes coordinating this discharge, dated 03/27. Gen: awake, alert HEENT: normocephalic, atraumatic, good hearing acuity, moist mucous membranes Resp: good air exchange, breathing comfortably with no accessory muscle use CVS: good distal perfusion x 4, GI: soft, NTTP, ND : no SPT, no CVAT, hernandez catheter not present MSK: Left leg pitting edema and nonpitting edema, no clubbing, area of erythema on the dorsal aspect of left foot Neuro: non-focal, moving all extremities Psych: cooperative, euthymic mood Patient Condition at Discharge: Good Plan - Discharge Summary New Discharge Prescriptions: New clindamycin HCL 300 mg PO Q6H #24 capsule Terbinafine 1% Cream [LamISIL] 1 applic TOPICAL TID 90 Days #15 gm Fluconazole [Diflucan] 100 mg PO DAILY #14 tab Continue Famotidine [Pepcid] 20 mg PO DAILY PRN PRN Reason: Heartburn Gabapentin [Neurontin] 300 mg PO TID dexAMETHasone 8 mg PO WE Acyclovir 400 mg PO BID Pomalyst 3mg 3 mg PO DIRECTED Aspirin 81 mg PO DAILY #30 chewable Apixaban [Eliquis] 5 mg PO BID Nitroglycerin Sl Tabs [Nitrostat] 0.4 mg SUBLINGUAL Q5M PRN PRN Reason: Chest Pain Potassium Chloride ER [K-Dur 20] 20 meq PO DAILY Calcium Carbonate/Vitamin D3 [Calcium 600-Vit D3 20 Mcg (800 Iu)] 1 cap PO DAILY Acetaminophen Tab [Tylenol] 650 mg PO Q6HR PRN tab PRN Reason: Mild Pain Or Fever > 100.5 Furosemide [Lasix] 20 mg PO DAILY PRN PRN Reason: Edema Multivitamins, Thera [Multivitamin (formulary)] 1 tab PO DAILY oxyCODONE HCL [oxyCODONE HCL (IR)] 10 - 20 mg PO Q4H PRN PRN Reason: Pain Chemo Infusion (Unknown) 1 dose IV DIRECTED Discharge Medication List Famotidine [Pepcid] 20 mg PO DAILY PRN 04/15/19 [History] Gabapentin [Neurontin] 300 mg PO TID 04/15/19 [History] dexAMETHasone 8 mg PO WE 04/15/19 [History] Acyclovir 400 mg PO BID 08/24/19 [History] Pomalyst 3mg 3 mg PO DIRECTED 08/24/19 [History] Aspirin 81 mg PO DAILY #30 chewable 08/26/19 [Rx] Apixaban [Eliquis] 5 mg PO BID 10/03/19 [History] Nitroglycerin Sl Tabs [Nitrostat] 0.4 mg SUBLINGUAL Q5M PRN 10/03/19 [History] Calcium Carbonate/Vitamin D3 [Calcium 600-Vit D3 20 Mcg (800 Iu)] 1 cap PO DAILY 01/10/20 [History] Potassium Chloride ER [K-Dur 20] 20 meq PO DAILY 01/10/20 [History] Furosemide [Lasix] 20 mg PO DAILY PRN 05/31/21 [History] Acetaminophen Tab [Tylenol] 650 mg PO Q6HR PRN tab 06/03/21 [Rx] Multivitamins, Thera [Multivitamin (formulary)] 1 tab PO DAILY 12/16/21 [History] Chemo Infusion (Unknown) 1 dose IV DIRECTED 03/25/22 [History] oxyCODONE HCL [oxyCODONE HCL (IR)] 10 - 20 mg PO Q4H PRN 03/25/22 [History] Fluconazole [Diflucan] 100 mg PO DAILY #14 tab 03/27/22 [Rx] Terbinafine 1% Cream [LamISIL] 1 applic TOPICAL TID 90 Days #15 gm 03/27/22 [Rx] clindamycin HCL 300 mg PO Q6H #24 capsule 03/27/22 [Rx] Follow up Appointment(s)/Referral(s): Elkin Pierson MD [Primary Care Provider] - 1-2 days Activity/Diet/Wound Care/Special Instructions: Per Dr. Browning, hold oral Pomalyst and dexamethasone until further notice. Oncology office will contact patient to resume pomalyst and dexamethasone and the Oncology office will reschedule IV kyprolis. Discharge Disposition: HOME SELF-CARE
[2022-03-27 13:55] LABS: Anisocytosis Slight; Basophils # (A) 0.1 k/uL (0-0.2); Basophils % (A) 1 %; Eosinophils % (A) 0 %; HCT 33.8 % (39.0-53.0); Hypochromasia Marked; Lymphocytes # (A) 0.1 k/uL (1.0-4.8); Lymphocytes % (A) 1 %; MCH 29.8 pg (25.0-35.0); MCHC 29.6 g/dL (31.0-37.0); MCV 100.4 fL (80.0-100.0); Macrocytosis Moderate; Mean Platelet Volume 11.8; Monocytes # (A) 0.2 k/uL (0-1.0); Monocytes % (A) 3 %; Neutrophils # (A) 7.3 k/uL (1.3-7.7); Neutrophils % (A) 95 %; RBC 3.37 m/uL (4.30-5.90); RDW 18.9 % (11.5-15.5); WBC 7.7 k/uL (3.8-10.6)
[2022-03-27 13:56] LABS: Platelet Count 79 k/uL (150-450)
[2022-03-27 14:46] LABS: Large Platelets Present; Poikilocytosis (M) Present; Toxic Granulation Present
--- NOTE | 2022-03-27 17:01 | P.PN ---
Subjective Progress Note Date: 03/27/22 Principal diagnosis: multiple myeloma, LLE cellulitis Pt is doing well today, his leg is less tender, red, no fevers. Objective - Vital Signs Vital signs: Vital Signs Temp 98.2 F 03/27/22 04:00 Pulse 68 03/27/22 12:00 Resp 16 03/27/22 12:00 BP 159/98 03/27/22 12:00 Pulse Ox 100 03/27/22 12:00 FiO2 Intake & Output 03/26/22 03/27/22 03/27/22 18:59 06:59 18:59 Intake Total 490 870 240 Balance 490 870 240 Intake: Intake, IV Titration 750 Amount Cefepime 2 gm In Sodium 100 Chloride 0.9% 100 ml @ 25 mls/hr IVPB Q12HR [facility] Rx #:[id number] Sodium Chloride 0.9% 1, 150 000 ml @ 75 mls/hr IV . [id number] [facility] Rx#:[id number] Vancomycin 1,750 mg In 500 Sodium Chloride 0.9% 500 ml 500 ml @ 167 mls/hr IVPB Q24H [facility] Rx#: [id number] Oral 490 120 240 Other: Voiding Method Urinal Urinal Urinal # Voids 1 # Bowel Movements 1 - Constitutional General appearance: Present: average body habitus, cooperative, no acute distress - EENT Eyes: Present: anicteric sclerae, EOMI ENT: Present: hearing grossly normal, thrush (slightly improved) - Respiratory Details: resp even and unlabored at rest - Integumentary Integumentary Comment(s): LLE swelling is less, redness and heat are gone, there are still 2 lesions on the medial and lateral aspect of the lower leg, purple, about1-1.5 cm, no nodularity palpated - Neurologic Neurologic: Present: CNII-XII intact - Musculoskeletal Musculoskeletal: Present: generalized weakness - Psychiatric Psychiatric: Present: A&O x's 3, appropriate affect, intact judgment & insight - Labs CBC & Chem 7: 03/27/22 10:43 03/27/22 10:43 Labs: Abnormal Lab Results - Last 24 Hours (Table) 03/27/22 03/27/22 Range/Units 10:43 10:43 RBC 3.37 L (4.30-5.90) m/uL Hgb 10.0 L D (13.0-17.5) gm/dL Hct 33.8 L (39.0-53.0) % MCV 100.4 H (80.0-100.0) fL MCHC 29.6 L (31.0-37.0) g/dL RDW 18.9 H (11.5-15.5) % Plt Count 79 L (150-450) k/uL Lymphocytes # 0.1 L (1.0-4.8) k/uL Sodium 135 L (137-145) mmol/L Carbon Dioxide 20 L (22-30) mmol/L BUN 38 H (9-20) mg/dL Creatinine 1.46 H (0.66-1.25) mg/dL Glucose 137 H (74-99) mg/dL Calcium 6.8 L (8.4-10.2) mg/dL Total Protein 4.3 L (6.3-8.2) g/dL Albumin 2.2 L (3.5-5.0) g/dL Microbiology - Last 24 Hours (Table) 03/25/22 00:15 Blood Culture - Preliminary Blood No Growth after 48 hours Assessment and Plan (1) Cellulitis Status: Acute Code(s): L03.90 - CELLULITIS, UNSPECIFIED SNOMED Code(s): 378368731 (2) Oral thrush Status: Acute Priority: High Code(s): B37.0 - CANDIDAL STOMATITIS SNOMED Code(s): 34877646 (3) Multiple myeloma Status: Chronic Priority: Medium Code(s): C90.00 - MULTIPLE MYELOMA NOT HAVING ACHIEVED REMISSION SNOMED Code(s): 899981733 Plan: Left lower extremity cellulitis. Lactic acid elevated on admission. Doppler of the left lower he was negative for DVT. Blood cultures negative. Chest x-ray negative. Patient received IV antibiotics, transition to oral. Continue to monitor the leg closely. Oral thrush, on antifungal medication. Patient had cycle 1, day 1 of IV Kyprolis. This will be on hold until his infection has cleared. Hold oral Pomalyst and dexamethasone. Ofc will contact pt with appts.
[2022-03-27] MEDS ORDERED: VANCOMYCIN TROUGH DUE 1 EACH MISC MISCELLANE ONE (20:00)
== END 2022-03-27 14:56 | disposition home or self-care (01) | DRG 872 ==
LOC: EC 22:47 → 6NMEDSUR 03-25 02:43 → 5NMEDONC 03-25 02:53 → 3SCARD 03-25 17:40 → OBSVTOIN 03-26 12:30
PROVIDERS: ADMIT Internal Medicine; ATTEND Internal Medicine
DX: A41.9 Sepsis, unspecified organism (principal); N17.9 Acute kidney failure, unspecified; C90.00 Multiple myeloma not having achieved remission; D61.818 Other pancytopenia; E87.2 Acidosis; B37.0 Candidal stomatitis; L03.116 Cellulitis of left lower limb; M80.00XA Age-related osteoporosis with current pathological fracture, unspecified site, initial encounter for fracture; Z94.84 Stem cells transplant status; G62.0 Drug-induced polyneuropathy; T45.1X5A Adverse effect of antineoplastic and immunosuppressive drugs, initial encounter; E78.5 Hyperlipidemia, unspecified; E86.0 Dehydration; Z20.822 Contact with and (suspected) exposure to COVID-19; G89.3 Neoplasm related pain (acute) (chronic); I25.10 Atherosclerotic heart disease of native coronary artery without angina pectoris; Z79.01 Long term (current) use of anticoagulants; Z79.82 Long term (current) use of aspirin; Z79.899 Other long term (current) drug therapy; Z88.2 Allergy status to sulfonamides; Z86.711 Personal history of pulmonary embolism
CPT/HCPCS: 36415; 71045; 80053; 81003; 83605; 83735; 84100; 85025; 85610; 85730; 86850; 86870; 86880; 86900; 86901; 86902; 87040; 87636; 93005; 96361; 96365; 96366; 99285

== ENCOUNTER 2022-03-30 04:17 | Inpatient (IN) | payer MEDICARE, BC ==
--- NOTE | 2022-03-30 04:31 | ED ---
Recheck HPI - General Stated Complaint: Left Leg Infection, Back Pain Time Seen by Provider: 03/30/22 04:25 Source: RN notes reviewed, old records reviewed, Caregiver Limitations: altered mental status, physical limitation - History of Present Illness Initial Comments: This is a 59-year-old male who is known to our facility patient is multiple myeloma not currently going to treatment. He does present with left lower extremity significant cellulitis generalized body aches and pains back pain from his myeloma significant history of multiple myeloma again with cancer associated pain. Significant increase in swelling and edema of his left lower extremity as well as redness and warmth. Patient does have recent hospital admission where he was improving on IV antibiotics with since his been GETTING worse. His also lhas had his alertness this is decreasing MD Complaint: wound re-check, needs IV antibiotics -: days(s) Returns Today for: wound recheck, needs IV antibiotics Symptoms Since Prior Visit: worsening pain Context: planned re-check Associated Symptoms: chills, rash, nausea Treatments Prior to Arrival: Given Antibiotics on, Given Pain Meds on - Related Data Home Medications Medication Instructions Recorded Confirmed Famotidine [Pepcid] 20 mg PO DAILY PRN 04/15/19 03/25/22 Gabapentin [Neurontin] 300 mg PO TID 04/15/19 03/25/22 dexAMETHasone 8 mg PO WE 04/15/19 03/25/22 Acyclovir 400 mg PO BID 08/24/19 03/25/22 Pomalyst 3mg 3 mg PO DIRECTED 08/24/19 03/25/22 Apixaban [Eliquis] 5 mg PO BID 10/03/19 03/25/22 Nitroglycerin Sl Tabs [Nitrostat] 0.4 mg SUBLINGUAL Q5M PRN 10/03/19 03/25/22 Calcium Carbonate/Vitamin D3 1 cap PO DAILY 01/10/20 03/25/22 [Calcium 600-Vit D3 20 Mcg (800 Iu)] Potassium Chloride ER [K-Dur 20] 20 meq PO DAILY 01/10/20 03/25/22 Furosemide [Lasix] 20 mg PO DAILY PRN 05/31/21 03/25/22 Multivitamins, Thera [Multivitamin 1 tab PO DAILY 12/16/21 03/25/22 (formulary)] Chemo Infusion (Unknown) 1 dose IV DIRECTED 03/25/22 03/25/22 oxyCODONE HCL [oxyCODONE HCL (IR)] 10 - 20 mg PO Q4H PRN 03/25/22 03/25/22 Previous Rx's Medication Instructions Recorded Aspirin 81 mg PO DAILY #30 chewable 08/26/19 Acetaminophen Tab [Tylenol] 650 mg PO Q6HR PRN tab 06/03/21 Fluconazole [Diflucan] 100 mg PO DAILY #14 tab 03/27/22 Terbinafine 1% Cream [LamISIL] 1 applic TOPICAL TID 90 Days #15 gm 03/27/22 clindamycin HCL 300 mg PO Q6H #24 capsule 03/27/22 Allergies Allergy/AdvReac Type Severity Reaction Status Date / Time sulfamethoxazole Allergy Rash/Hives Verified 03/25/22 07:10 [From Bactrim] trimethoprim [From Bactrim] Allergy Rash/Hives Verified 03/25/22 07:10 Review of Systems ROS Statement: Those systems with pertinent positive or pertinent negative responses have been documented in the HPI. ROS Other: All systems not noted in ROS Statement are negative. 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, gait dysfunction-uses walker, bilateral pedal/ankle edema, PE 08/2019, chronic low back pain, past vertebral fractures, minimal CAD, shingelles twice, past R heel wound, elevated lipids in the past, History of Any Multi-Drug Resistant Organisms: None Reported Past Surgical History: Heart Catheterization, Orthopedic Surgery Additional Past Surgical History / Comment(s): excision of uvular lesion(benign) 2009, colonoscopy, dave knee arthroscopy, rt rotator cuff sx, moles removed from back(benign), bone marrow aspiration/bx, stem cell transplant 2015, Past Anesthesia/Blood Transfusion Reactions: No Reported Reaction Smoking Status: Never smoker - Past Family History Father Family Medical History: Renal Disease, Vascular Disorder Additional Family Medical History / Comment(s): aaa. Father is . Mother Family Medical History: No Reported History Additional Family Medical History / Comment(s): mom is healthy General Exam General appearance: alert, in no apparent distress Head exam: Present: atraumatic, normocephalic, normal inspection Eye exam: Present: normal appearance, PERRL, EOMI. Absent: scleral icterus, conjunctival injection, periorbital swelling ENT exam: Present: normal exam, mucous membranes moist Neck exam: Present: normal inspection. Absent: tenderness, meningismus, lymphadenopathy Respiratory exam: Present: normal lung sounds bilaterally. Absent: respiratory distress, wheezes, rales, rhonchi, stridor Cardiovascular Exam: Present: regular rate, normal rhythm, normal heart sounds. Absent: systolic murmur, diastolic murmur, rubs, gallop, clicks GI/Abdominal exam: Present: soft, normal bowel sounds. Absent: distended, tenderness, guarding, rebound, rigid Extremities exam: Present: tenderness, other (Generalized erythema edema and swelling of left lower extremity with redness and warmth significant). Absent: normal capillary refill, pedal edema, joint swelling, calf tenderness Back exam: Present: normal inspection Neurological exam: Present: alert, oriented X3, CN II-XII intact Psychiatric exam: Present: normal affect, normal mood Skin exam: Present: warm, dry, intact, normal color. Absent: rash Course Vital Signs 03/30/22 03/30/22 04:26 06:00 Temperature 98.2 F Pulse Rate 100 85 Respiratory 18 18 Rate Blood Pressure 113/92 135/86 O2 Sat by Pulse 98 99 Oximetry - Reevaluation(s) Reevaluation #1: 03/30/22 04:31 medical record is reviewed Reevaluation #2: 03/30/22 05:08 Patient has symptom improvement Reevaluation #3: 03/30/22 06:35 Patient family informed of results and questions answered - Consultations Consultation #1: spoke w Sound ok for admission Medical Decision Making - Medical Decision Making 67 male the emergency department for evaluation of weakness recurrent left lower extremity sialitis worsen before. Patient be admitted for IV antibiotics, evaluation of malnutrition, pain control for cancer pain. - Lab Data Result diagrams: 03/30/22 05:40 03/30/22 05:40 - EKG Data -: EKG Interpreted by Me (EKG sinus rhythm 89 NM 158 QRS 92 QTC 374) - Radiology Data Radiology results: report reviewed (Chest x-ray and x-ray of left leg is negative for acute disease), image reviewed Disposition Clinical Impression: Weakness of both legs, Dehydration, History of multiple myeloma, Intractable back pain, Myalgia, Cellulitis, Left leg cellulitis, DUNCAN (acute kidney injury), Severe protein-calorie malnutrition Disposition: ADMITTED IP TO THIS HOSP Condition: Fair Is patient prescribed a controlled substance at d/c from ED?: No Time of Disposition: 06:40
[2022-03-30] MEDS ORDERED: HYDROmorphone 1 MG/ML 1 ML SYRINGE IVP STA (04:43)
[2022-03-30] MEDS ORDERED: VANCOMYCIN IV PER PHARMACY 1 EACH MISC MISCELLANE PRN (05:01)
[2022-03-30] MEDS ORDERED: ACETAMINOPHEN IV (For NPO) 1,000 MG in EMPTY BAG 1 BAG IVPB STA (05:01)
[2022-03-30] MEDS ORDERED: ACETAMINOPHEN TAB 325 MG TAB PO PRN (05:04)
[2022-03-30] MEDS ORDERED: NALOXONE 0.4 MG/ML 1 ML VIAL IV PRN (05:04)
[2022-03-30] MEDS ORDERED: ONDANSETRON 4 MG/2 ML VIAL IVP PRN (05:04)
[2022-03-30] MEDS ORDERED: LORazepam 2 MG/ML INJ IV PRN (05:04)
[2022-03-30] MEDS ORDERED: VANCOMYCIN 1,750 MG in SODIUM CHLORIDE 0.9% 500 ML 500 ML IVPB STA (05:07)
--- NOTE | 2022-03-30 05:42 | XR ---
EXAMINATION TYPE: XR chest 1V DATE OF EXAM: 03/30/2022 COMPARISON: 03/25/2022 HISTORY: Weakness TECHNIQUE: Single view FINDINGS: Heart and mediastinum are normal. Lungs are clear. Diaphragm is normal. Bony thorax is inta ct. IMPRESSION: No active cardiopulmonary disease. No change.
--- NOTE | 2022-03-30 05:47 | XR ---
EXAMINATION TYPE: XR tibia fibula LT DATE OF EXAM: 03/30/2022 COMPARISON: NONE HISTORY: Pain TECHNIQUE: 4 views FINDINGS: Tibia and fibula appear intact. There is Achilles calcaneal spurring. No fracture seen. Kne e joint is intact. IMPRESSION: Calcaneal spurring. No fracture seen.
[2022-03-30] MEDS: SODIUM CHLORIDE 0.9% 1,000 ML IV SCH ×2 (06:24→15:16)
[2022-03-30 06:31] LABS: Albumin 3.2 g/dL (3.5-5.0); Calcium 9.1 mg/dL (8.4-10.2); Potassium 3.9 mmol/L (3.5-5.1); Total Bilirubin 0.5 mg/dL (0.2-1.3); Total Protein 5.7 g/dL (6.3-8.2)
[2022-03-30 06:43] LABS: Appearance,Urine Clear (Clear); Bilirubin,Urine Negative (Negative); Blood,Urine Negative (Negative); Color,Urine Light Yellow; Glucose,Urine (UA) Negative (Negative); Ketones,Urine Negative (Negative); Leukocyte Esterase,Urine Negative (Negative); Nitrite,Urine Negative (Negative); PH, Urine 6.5 (5.0-8.0); Protein,Urine Trace (Negative); Specific Gravity,Urine 1.007 (1.001-1.035); Urobilinogen,Urine <2.0 mg/dL (<2.0)
[2022-03-30 06:45] LABS: INR 0.9 (<1.2); Partial Thromboplastin Time 22.5 sec (22.0-30.0); Prothrombin Time 9.9 sec (9.0-12.0)
[2022-03-30 06:52] LABS: Anisocytosis Slight; Basophils % (A) 1 %; Eosinophils % (A) 1 %; HCT 38.7 % (39.0-53.0); HGB 12.5 gm/dL (13.0-17.5); Hypochromasia Slight; Lymphocytes # (A) 0.2 k/uL (1.0-4.8); Lymphocytes % (A) 4 %; MCHC 32.4 g/dL (31.0-37.0); MCV 95.7 fL (80.0-100.0); Macrocytosis Slight; Mean Platelet Volume 10.7; Monocytes # (A) 0.1 k/uL (0-1.0); Monocytes % (A) 3 %; Neutrophils % (A) 92 %; Platelet Count 107 k/uL (150-450); RBC 4.04 m/uL (4.30-5.90); RDW 19.7 % (11.5-15.5); WBC 4.4 k/uL (3.8-10.6)
[2022-03-30 07:28] LABS: Erythrocyte Sedimentation Rate 60 mm/hr (0-15)
[2022-03-30] MEDS: DEXAMETHASONE SOD PHOSPHATE 4 MG/ML 1 ML VIAL IVP SCH ×2 (12:00→20:17)
[2022-03-30] MEDS ORDERED: FAMOTIDINE 20 MG TAB PO PRN (12:08)
[2022-03-30] MEDS ORDERED: NITROGLYCERIN SL TABS 0.4 MG TAB SUBLINGUAL PRN (12:08)
--- NOTE | 2022-03-30 12:13 | P.HPIM ---
History of Present Illness H&P Date: 03/30/22 History of Presenting Illness: Patient is a 66-year-old male with a past medical history of CAD, hyperlipidemia, history of pulmonary emboli on anticoagulation with Eliquis, and multiple myeloma currently undergoing chemotherapy receiving last dose 03/24/22. He presented to the emergency department for evaluation of left lower extremity wound/cellulitis. Patient recently underwent hospitalization for left lower extremity cellulitis after failing outpatient antibiotic course 5 days and experiencing worsening left lower extremity pain and swelling patient underwent three-day hospitalization receiving vancomycin and cefepime and was discharged home on 03/27/22 with oral clindamycin for an additional 6 days. Patient returned to the emergency department today secondary to continued left lower extremity pain and swelling despite taking antibiotic as directed. Patient reports pain has been so severe he is unable to put any pressure on his left leg and because of this it is now accompanied by uncontrolled cancer pain in his back. Patient denies having any recent fevers, chills, diaphoresis, chest pain, palpitations, shortness of breath or experiencing any numbness/tingling in his extremities. Patient underwent full evaluation in the emergency department. CBC revealing normocytic normochromic anemia with hemoglobin of 12.5 and thrombocytopenia with platelet count of 107. BMP revealing a sodium of 130 and an acute kidney injury with BUN 38, creatinine 2.06 and GFR of 32 with baseline creatinine of 1.4. Liver profile unremarkable. Troponin -0.022. Urinalysis positive for protein and negative for blood or infection. CRP elevated 9.0. Covid 19 PCR, influenza A and influenza B were all negative. Patient has been admitted under our services with consultation to infectious disease and oncology. Review of systems: Pertinent positives and negatives as discussed in HPI, a complete review of systems was performed and all other systems are negative. Physical exam: Vital signs reviewed and stable. General: Nontoxic, no distress and appears stated age. Derm: Skin warm and dry, normal coloration for ethnicity. Head: Atraumatic, normocephalic and symmetric. Eyes: EOMs intact, no lid lag, and anicteric sclera Mouth: no lip lesions, mucus membranes moist Cardiovascular: regular rate and rhythm with normal S1S2, no murmur, positive posterior tibial pulses bilaterally, and cap refill < 2 seconds. Lungs: Respirations even, regular, and unlabored on room air. Lungs CTA bilaterally, no rhonchi, no rales, no wheezing, and no accessory muscle usage. Abdominal: soft, nontender to palpation, no guarding, no appreciable organomegaly Ext: ROM intact. No gross muscle atrophy, left lower extremity 3+ pitting edema, right lower extremity 1+ no contractures. Left lower extremity with significant edema (3+ pitting), erythema, and increased warmth throughout left foot extending up to pts thigh. Neuro: Speech clear, face symmetrical and CN II-XII grossly intact with no noted focal neuro deficits Psych: Alert and oriented to person, place, time, and situation. Appropriate and pleasant affect. Assessment and Plan of Care: Left lower extremity cellulitis, failed outpatient treatment 2 rounds currently undergoing chemotherapy. -Infectious disease consulted. -IV antibiotics vancomycin and Rocephin -X-ray tib/fib: Negative for acute process -CT of Left lower extremity to be completed. -Left lower extremity venous Doppler to be completed -Follow up on blood cultures -IV antibiotics: vancomycin and Rocephin -Symptomatic care and pain management -Fall precautions Multiple myeloma currently undergoing chemotherapy with last treatment 03/24/22 -Oncology consulted History of Pulmonary emboli -Continue anticoagulation with Eliquis, The patient is admitted with an anticipated greater than 2 midnight stay for evaluation of left lower extremity cellulitis after failing outpatient treatment 2 rounds CODE STATUS: Full code DVT prophylaxis: Eliquis Discussed with: Patient and RN Anticipated discharge date: Clinical course to determine Anticipated discharge place: Home versus SNF to receive IV antibiotics A total of 45 minutes was spent on the care of this complex patient more than 50% of the time was spent in counseling and care coordination. I reviewed the documentation as provided by the [place] above, who is the original author of this note. 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, gait dysfunction-uses walker, bilateral pedal/ankle edema, PE 08/2019, chronic low back pain, past vertebral fractures, minimal CAD, shingelles twice, past R heel wound, elevated lipids in the past, History of Any Multi-Drug Resistant Organisms: None Reported Past Surgical History: Heart Catheterization, Orthopedic Surgery Additional Past Surgical History / Comment(s): excision of uvular lesion(benign) 2009, colonoscopy, dave knee arthroscopy, rt rotator cuff sx, moles removed from back(benign), bone marrow aspiration/bx, stem cell transplant 2016, Past Anesthesia/Blood Transfusion Reactions: No Reported Reaction Smoking Status: Never smoker - Past Family History Father Family Medical History: Renal Disease, Vascular Disorder Additional Family Medical History / Comment(s): aaa. Father is . Mother Family Medical History: No Reported History Additional Family Medical History / Comment(s): mom is healthy Medications and Allergies Home Medications Medication Instructions Recorded Confirmed Type Famotidine [Pepcid] 20 mg PO DAILY PRN 04/15/19 03/30/22 History Gabapentin [Neurontin] 300 mg PO TID 04/15/19 03/30/22 History dexAMETHasone 8 mg PO DIRECTED 04/15/19 03/30/22 History Acyclovir 400 mg PO BID 08/24/19 03/30/22 History Pomalyst 3mg 3 mg PO DIRECTED 08/24/19 03/30/22 History Aspirin 81 mg PO DAILY #30 chewable 08/26/19 03/30/22 Rx Apixaban [Eliquis] 5 mg PO BID 10/03/19 03/30/22 History Nitroglycerin Sl Tabs [Nitrostat] 0.4 mg SUBLINGUAL Q5M PRN 10/03/19 03/30/22 History Calcium Carbonate/Vitamin D3 1 cap PO DAILY 01/10/20 03/30/22 History [Calcium 600-Vit D3 20 Mcg (800 Iu)] Potassium Chloride ER [K-Dur 20] 20 meq PO DAILY 01/10/20 03/30/22 History Furosemide [Lasix] 20 mg PO DAILY PRN 05/31/21 03/30/22 History Acetaminophen Tab [Tylenol] 650 mg PO Q6HR PRN tab 06/03/21 03/30/22 Rx Multivitamins, Thera [Multivitamin 1 tab PO DAILY 12/16/21 03/30/22 History (formulary)] oxyCODONE HCL [oxyCODONE HCL (IR)] 10 - 20 mg PO Q4H PRN 03/25/22 03/30/22 History Fluconazole [Diflucan] 100 mg PO DAILY #14 tab 03/27/22 03/30/22 Rx Terbinafine 1% Cream [LamISIL] 1 applic TOPICAL TID 90 Days #15 gm 03/27/22 03/30/22 Rx clindamycin HCL 300 mg PO Q6H #24 capsule 03/27/22 03/30/22 Rx Carfilzomib [Kyprolis] 1 dose IV DIRECTED 03/30/22 03/30/22 History Allergies Allergy/AdvReac Type Severity Reaction Status Date / Time sulfamethoxazole Allergy Rash/Hives Verified 03/30/22 11:35 [From Bactrim] trimethoprim [From Bactrim] Allergy Rash/Hives Verified 03/30/22 11:35 Physical Exam Osteopathic Statement: *. No significant issues noted on an osteopathic structural exam other than those noted in the History and Physical/Consult. Vitals: Vital Signs Temp Pulse Resp BP Pulse Ox 03/30/22 06:00 85 18 135/86 99 03/30/22 04:26 98.2 F 100 18 113/92 98 Intake and Output 03/29/22 03/30/22 03/30/22 22:59 06:59 14:59 Other: Weight 99.79 kg Results CBC & Chem 7: 03/30/22 05:40 03/31/22 05:44 Labs: Abnormal Lab Results - Last 24 Hours (Table) 03/30/22 03/30/22 03/30/22 Range/Units 05:40 05:40 05:40 RBC 4.04 L (4.30-5.90) m/uL Hgb 12.5 L (13.0-17.5) gm/dL Hct 38.7 L (39.0-53.0) % RDW 19.7 H (11.5-15.5) % Plt Count 107 L (150-450) k/uL Lymphocytes # 0.2 L (1.0-4.8) k/uL ESR 60 H (0-15) mm/hr Sodium 130 L (137-145) mmol/L BUN 38 H (9-20) mg/dL Creatinine 2.06 H (0.66-1.25) mg/dL Creatine Kinase 36 L (55-170) U/L C-Reactive Protein 9.0 H (<1.0) mg/dL Total Protein 5.7 L (6.3-8.2) g/dL Albumin 3.2 L (3.5-5.0) g/dL Urine Protein (Negative) 03/30/22 Range/Units 06:10 RBC (4.30-5.90) m/uL Hgb (13.0-17.5) gm/dL Hct (39.0-53.0) % RDW (11.5-15.5) % Plt Count (150-450) k/uL Lymphocytes # (1.0-4.8) k/uL ESR (0-15) mm/hr Sodium (137-145) mmol/L BUN (9-20) mg/dL Creatinine (0.66-1.25) mg/dL Creatine Kinase (55-170) U/L C-Reactive Protein (<1.0) mg/dL Total Protein (6.3-8.2) g/dL Albumin (3.5-5.0) g/dL Urine Protein Trace H (Negative)
--- NOTE | 2022-03-30 12:29 | CT ---
EXAMINATION TYPE: CT lower extremity LT wo con DATE OF EXAM: 03/30/2022 COMPARISON: None HISTORY: Suspected necrotizing fascitiis CT DLP: 1293.00 mGycm Automated exposure control for dose reduction was used. FINDINGS: There is marked diffuse thickening of the deep muscle fascial planes and superficial fascial planes f rom the distal thigh to the foot. There is also marked abnormal subcutaneous soft tissue density like ly reflecting marked diffuse edema. Soft tissue gas is not identified however findings could still re present necrotizing fasciitis. The underlying osseous structures are intact without cortical disruption or periosteal reaction. IMPRESSION: MARKED DIFFUSE SOFT TISSUE ABNORMALITY CONSISTENT WITH SUBCUTANEOUS AND DEEP FASCIAL PLANE EDEMA/INFL AMMATION. THE FINDINGS ARE SUSPICIOUS FOR NECROTIZING FASCIITIS.
--- NOTE | 2022-03-30 12:57 | US ---
EXAMINATION TYPE: US venous doppler duplex LE LT DATE OF EXAM: 03/30/2022 11:35 AM COMPARISON: NONE CLINICAL HISTORY: Swelling LLE. Swelling in left leg SIDE PERFORMED: Left TECHNIQUE: The lower extremity deep venous system is examined utilizing real time linear array sonog lisseth with graded compression, doppler sonography and color-flow sonography. VESSELS IMAGED: Common Femoral Vein Deep Femoral Vein Greater Saphenous Vein * Femoral Vein Popliteal Vein Small Saphenous Vein * Proximal Calf Veins (* superficial vessels) Left Leg: Negative for DVT Deep venous system of the left lower extremity from the proximal calf veins. The common femoral vein is patent and compressible with augmentable flow throughout. IMPRESSION: There is no evidence of left lower extremity DVT in the visualized portion of the deep ve nous system.
--- NOTE | 2022-03-30 14:29 | P.PN ---
Progress Note - Text Progress Note Date: 03/30/[address] Ramirez from [facility] regarding transfer for Necrotizing fasciitis, but the transfer was refused.
[2022-03-30] MEDS: CLINDAMYCIN 900 MG in DEXTROSE 5% IN WATER 50 ML IVPB SCH ×4 (15:16→22:04)
[2022-03-30] MEDS: HYDROmorphone 1 MG/ML 1 ML SYRINGE IVP PRN ×2 (15:21→20:16)
[2022-03-30] MEDS: GABAPENTIN 300 MG CAP PO SCH ×2 (15:21→22:04)
--- NOTE | 2022-03-30 16:26 | P.CON ---
Consult Note - . Consult date: 03/30/22 Assessment/Plan:: Kushal Becerra is a 67M with PMH of MM on chemotherapy who has had a recent history of cellulitis of the left lower leg for the past couple of weeks. He was recently hospitalized for IV ABX and discharged several days ago. Since then, the swelling has gotten worse and a blister formed on the back of his calf. They returned because he is having difficulty ambulating from the pain in his leg paired with the lesions in his back. No fever, chills, or other SOB. Since his admission, the patient and his both agree that his leg looks a lot better. The erythema and swelling have improved. O - AVSS WBC - 4.4, CRP - 9, Hb 12.5, glucose 85, Na 130 LLE - two areas of erythema, one over the dorsum of the foot, another along the anterior aspect of the tibia. No open wounds. Blister on the calf seems to have ruptured but without any deepithelialization. There is pitting edema to midcalf but no crepitus on palpation. Sensation intact to planter/dorsal foot. Able to wiggle toes, Cap refill brisk. XR - no fracture, soft tissue edema CT - soft tissue edema, no gas AP - 1. Left leg cellulitis - there is low clinical suspicion for necrotizing fasciitis. Agree with continued ABX per primary team. - No surgical intervention needed at this point - Will continue to follow closely - edema control with heidi wrap and elevation - NPO p Midnight in case condition deteriorates
[2022-03-30 17:54] LABS: Immunoglobulin A <50.0 mg/dL (60.0-350.0); Immunoglobulin M <25.0 mg/dL (40.0-280.0)
[2022-03-30 18:21] LABS: Protein, Total 5.4 g/dL (6.2-8.2)
[2022-03-30] MEDS: APIXABAN 5 MG TAB PO SCH (20:17)
[2022-03-30] MEDS: ACYCLOVIR 200 MG CAP PO SCH (20:17)
--- NOTE | 2022-03-30 22:40 | P.CONS ---
History of Present Illness - Reason for Consult Consult date: 03/30/22 - History of Present Illness Patient is a 67-year male who was recently admitted to this hospital for acute left lower extremity cellulitis with sepsis, Patient was treated by hospitalist service from 03/25/2022 and was discharged on 03/27/2022 patient apparently was treated with vancomycin and cefepime subsequent discharged home on oral clindamycin 3 mg every 8 hour for 10 days patient presented back to the hospital early this morning for evaluation of continued left lower extremity pain and swelling despite taking oral clindamycin that was prescribed to him patient described the pain to be sharp especially when he stands or walks moderate intensity is almost 8-9 out of 10 and no radiation patient did have associated swelling redness but no open wound or any drainage, patient on presentation to the hospital was afebrile and no fever have been recorded subsequently patient did have a normal white count BUN and creatinine has been elevated liver enzymes are normal urine has been negative sutton influenza PCR was negative patient did have a chest x-ray no active cardiopulmonary disease did have a lower extremity CT concerning for mild diffuse soft tissue abnormality consistent with subcutaneous and deep fascial plane edema and inflammation suspicious for necrotizing fasciitis lower extremity Doppler was negative for DVT patient currently being treated with Rocephin and vancomycin infectious disease was consulted for further management of antibiotic therapy 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, gait dysfunction-uses walker, bilateral pedal/ankle edema, PE 08/2019, chronic low back pain, past vertebral fractures, minimal CAD, shingelles twice, past R heel wound, elevated lipids in the past, History of Any Multi-Drug Resistant Organisms: None Reported Past Surgical History: Heart Catheterization, Orthopedic Surgery Additional Past Surgical History / Comment(s): excision of uvular lesion(benign) 2009, colonoscopy, dave knee arthroscopy, rt rotator cuff sx, moles removed from back(benign), bone marrow aspiration/bx, stem cell transplant 2015, Past Anesthesia/Blood Transfusion Reactions: No Reported Reaction Past Psychological History: No Psychological Hx Reported Additional Psychological History / Comment(s): lives at home with his Blossom and 1 adult son. 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 He has a rollator walker. Smoking Status: Former smoker Past Alcohol Use History: None Reported Additional Past Alcohol Use History / Comment(s): started smoking age 17 and quit age 27, smoked 1ppd Past Drug Use History: None Reported Additional Drug Use History / Comment(s): Pt states that he occasionally smokes marijuana to help with pain - Past Family History Father Family Medical History: Renal Disease, Vascular Disorder Additional Family Medical History / Comment(s): aaa. Father is . Mother Family Medical History: No Reported History Additional Family Medical History / Comment(s): mom is healthy Medications and Allergies Home Medications Medication Instructions Recorded Confirmed Type Famotidine [Pepcid] 20 mg PO DAILY PRN 04/15/19 03/30/22 History Gabapentin [Neurontin] 300 mg PO TID 04/15/19 03/30/22 History dexAMETHasone 8 mg PO DIRECTED 04/15/19 03/30/22 History Acyclovir 400 mg PO BID 08/24/19 03/30/22 History Pomalyst 3mg 3 mg PO DIRECTED 08/24/19 03/30/22 History Aspirin 81 mg PO DAILY #30 chewable 08/26/19 03/30/22 Rx Apixaban [Eliquis] 5 mg PO BID 10/03/19 03/30/22 History Nitroglycerin Sl Tabs [Nitrostat] 0.4 mg SUBLINGUAL Q5M PRN 10/03/19 03/30/22 History Calcium Carbonate/Vitamin D3 1 cap PO DAILY 01/10/20 03/30/22 History [Calcium 600-Vit D3 20 Mcg (800 Iu)] Potassium Chloride ER [K-Dur 20] 20 meq PO DAILY 01/10/20 03/30/22 History Furosemide [Lasix] 20 mg PO DAILY PRN 05/31/21 03/30/22 History Acetaminophen Tab [Tylenol] 650 mg PO Q6HR PRN tab 06/03/21 03/30/22 Rx Multivitamins, Thera [Multivitamin 1 tab PO DAILY 12/16/21 03/30/22 History (formulary)] oxyCODONE HCL [oxyCODONE HCL (IR)] 10 - 20 mg PO Q4H PRN 03/25/22 03/30/22 History Fluconazole [Diflucan] 100 mg PO DAILY #14 tab 03/27/22 03/30/22 Rx Terbinafine 1% Cream [LamISIL] 1 applic TOPICAL TID 90 Days #15 gm 03/27/22 03/30/22 Rx clindamycin HCL 300 mg PO Q6H #24 capsule 03/27/22 03/30/22 Rx Carfilzomib [Kyprolis] 1 dose IV DIRECTED 03/30/22 03/30/22 History Allergies Allergy/AdvReac Type Severity Reaction Status Date / Time sulfamethoxazole Allergy Rash/Hives Verified 03/30/22 11:35 [From Bactrim] trimethoprim [From Bactrim] Allergy Rash/Hives Verified 03/30/22 11:35 Physical Exam Vitals: Vital Signs Temp Pulse Resp BP Pulse Ox 03/30/22 08:00 77 16 110/67 97 03/30/22 06:00 85 18 135/86 99 03/30/22 04:26 98.2 F 100 18 113/92 98 Intake and Output 03/29/22 03/30/22 03/30/22 22:59 06:59 14:59 Other: Voiding Method Urinal Weight 99.79 kg 94.5 kg Results CBC & Chem 7: 03/30/22 05:40 03/30/22 05:40 Labs: Abnormal Lab Results - Last 24 Hours (Table) 03/30/22 03/30/22 03/30/22 Range/Units 05:40 05:40 05:40 RBC 4.04 L (4.30-5.90) m/uL Hgb 12.5 L (13.0-17.5) gm/dL Hct 38.7 L (39.0-53.0) % RDW 19.7 H (11.5-15.5) % Plt Count 107 L (150-450) k/uL Lymphocytes # 0.2 L (1.0-4.8) k/uL ESR 60 H (0-15) mm/hr Sodium 130 L (137-145) mmol/L BUN 38 H (9-20) mg/dL Creatinine 2.06 H (0.66-1.25) mg/dL Creatine Kinase 36 L (55-170) U/L C-Reactive Protein 9.0 H (<1.0) mg/dL Total Protein 5.7 L (6.3-8.2) g/dL Albumin 3.2 L (3.5-5.0) g/dL Urine Protein (Negative) 03/30/22 Range/Units 06:10 RBC (4.30-5.90) m/uL Hgb (13.0-17.5) gm/dL Hct (39.0-53.0) % RDW (11.5-15.5) % Plt Count (150-450) k/uL Lymphocytes # (1.0-4.8) k/uL ESR (0-15) mm/hr Sodium (137-145) mmol/L BUN (9-20) mg/dL Creatinine (0.66-1.25) mg/dL Creatine Kinase (55-170) U/L C-Reactive Protein (<1.0) mg/dL Total Protein (6.3-8.2) g/dL Albumin (3.5-5.0) g/dL Urine Protein Trace H (Negative) Assessment and Plan Plan: 1patient presented to hospital with left lower extremity pain swelling redness in this patient who was recently treated at this facility and discharged about 3 days ago on oral clindamycin presenting with worsening pain and swelling and concern for left lower extremity cellulitis and concern for possible necrotizing infection however the patient declined not behaving as such with no fever no white count and no significant tenderness on local examination. 2patient with a borderline kidney function high risk of nephrotoxicity from vancomycin. 3discontinue vancomycin and Rocephin. 4cefazolin 2 g every 8 hours and clindamycin. 5orthopedics evaluation as per discussion with admitting physician. We will follow on clinical condition and cultures to further adjust medication if needed Thank you for this consultation will follow this patient along with you Time with Patient: Greater than 30
--- NOTE | 2022-03-31 00:22 | P.CONS ---
History of Present Illness - Reason for Consult Consult date: 03/30/22 LLE and back pain, Multiple myeloma - History of Present Illness This is a 67 yr old [facility] patient of Dr. Browning, well-known to the practice. He was admitted last week with c/o persistent lethargy and progressive LLE pain, swelling, redness. Lethargy started shortly after receiving his first kyprolils infusion. He was on oral antibiotics for the LLE cellulitis, no alleviation of symptoms. He was treated with IV antibiotics, with improvement and then discharged home on oral antibiotics. The patient states that he developed progressive swelling and pain in the LLE, which was quite severe to the point where he was unable to bear weight on the left leg. Yesterday he also developed increased back pain in the mid back area, described as a bandlike sensation. He reports associated feeling of some leg weakness and numbness. He denied any loss of control or retention of bowels or urine. He therefore came back to the emergency room, where he was found to have increased lower extremity swelling. X-ray of the tibia and fibula were negative. Chest x-ray was negative. CBC was fairly stable with only mild anemia. Renal function was however worse compared to baseline. He was admitted for further management. Pt denied fever, chills, nausea, vomiting, chest pain, cough, sore throat, abd pain, diarrhea, or constipation. He has chronic low back pain 2/2 myeloma lesion on spine.. CBC mostly normal Malignancy history: Mr. Paul has a long history of treatment for multiple myeloma. Initially presented with progressive back pain that started in August 2015. Workup ultimately revealed elevated calcium, protein, creatinine, decreased hemoglobin, IgG lambda monoclonal protein, M protein 6.8 g/dL normal kappa lambda ratio. He also had osteoporotic compression fractures. 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 Started RVD 01/11/16, completed 4 cycles, repeat bone marrow revealed minimal residual disease. Underwent autologous stem cell transplant 08/27/16. Started maintenance revlimid end of December 2016, with doses held and reduced for pancytopenia over the years he was on it. He started to have worsening back pain in January 2019, MRI of his lumbar spine 03/10/19 revealed progressing soft tissue mass at L2 causing compression of the thecal sac and L3 nerve root and new paraspinal soft tissue mass at L4-L5, M-protein was up to 2.2gm/dl, Ig level up to 3019mg/dl, free lambda level 148.9mg/L, ratio of 0.04, normal creatinine and calcium, repeat skeletal bone survey revealed no changes. 04/07/19 he started darzalex/pomalyst/decadron. April 2019 he had disseminated zoster and requires viral prophylaxis/suppression medication on active MM treatment. He was admitted early Aug 2019 for shortness of breath, chest pain, hypotension and mild tachycardia. CT of the chest was performed revealing pulmonary embolism, he continues on eliquis to current. Patient followed up with Dr. Browning in early March, c/o progressive back pain, imaging revealed some progression in vertebral bony lesions. IV regimen changed to kyrpolis, cont on pomalyst and dex as pre scribed. S/P C1 D1. Review of Systems Constitutional: Reports chronic pain, Reports fatigue, Reports weakness Eyes: denies blurred vision, denies pain Ears: deny: decreased hearing, ear discharge, earache, tinnitus Ears, nose, mouth and throat: Denies headache, Denies sore throat Cardiovascular: Reports decreased exercise tolerance Respiratory: Denies cough Gastrointestinal: Denies abdominal pain, Denies diarrhea, Denies nausea, Denies vomiting Genitourinary: Reports as per HPI Musculoskeletal: Reports as per HPI, Reports shooting leg pain Integumentary: Reports as per HPI, Reports color changes Neurological: Reports weakness Psychiatric: Denies anxiety, Denies depression Endocrine: Reports fatigue Hematologic/Lymphatic: Reports as per HPI 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, gait dysfunction-uses walker, bilateral pedal/ankle edema, PE 08/2019, chronic low back pain, past vertebral fractures, minimal CAD, shingelles twice, past R heel wound, elevated lipids in the past, History of Any Multi-Drug Resistant Organisms: None Reported Past Surgical History: Heart Catheterization, Orthopedic Surgery Additional Past Surgical History / Comment(s): excision of uvular lesion(benign) 2009, colonoscopy, dave knee arthroscopy, rt rotator cuff sx, moles removed from back(benign), bone marrow aspiration/bx, stem cell transplant 2016, Past Anesthesia/Blood Transfusion Reactions: No Reported Reaction Past Psychological History: No Psychological Hx Reported Additional Psychological History / Comment(s): lives at home with his Blossom and 1 adult son. 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 He has a rollator walker. Smoking Status: Former smoker Past Alcohol Use History: None Reported Additional Past Alcohol Use History / Comment(s): started smoking age 17 and quit age 27, smoked 1ppd Past Drug Use History: None Reported Additional Drug Use History / Comment(s): Pt states that he occasionally smokes marijuana to help with pain - Past Family History Father Family Medical History: Renal Disease, Vascular Disorder Additional Family Medical History / Comment(s): aaa. Father is . Mother Family Medical History: No Reported History Additional Family Medical History / Comment(s): mom is healthy Medications and Allergies Home Medications Medication Instructions Recorded Confirmed Type Famotidine [Pepcid] 20 mg PO DAILY PRN 04/15/19 03/30/22 History Gabapentin [Neurontin] 300 mg PO TID 04/15/19 03/30/22 History dexAMETHasone 8 mg PO DIRECTED 04/15/19 03/30/22 History Acyclovir 400 mg PO BID 08/24/19 03/30/22 History Pomalyst 3mg 3 mg PO DIRECTED 08/24/19 03/30/22 History Aspirin 81 mg PO DAILY #30 chewable 08/26/19 03/30/22 Rx Apixaban [Eliquis] 5 mg PO BID 10/03/19 03/30/22 History Nitroglycerin Sl Tabs [Nitrostat] 0.4 mg SUBLINGUAL Q5M PRN 10/03/19 03/30/22 History Calcium Carbonate/Vitamin D3 1 cap PO DAILY 01/10/20 03/30/22 History [Calcium 600-Vit D3 20 Mcg (800 Iu)] Potassium Chloride ER [K-Dur 20] 20 meq PO DAILY 01/10/20 03/30/22 History Furosemide [Lasix] 20 mg PO DAILY PRN 05/31/21 03/30/22 History Acetaminophen Tab [Tylenol] 650 mg PO Q6HR PRN tab 06/03/21 03/30/22 Rx Multivitamins, Thera [Multivitamin 1 tab PO DAILY 12/16/21 03/30/22 History (formulary)] oxyCODONE HCL [oxyCODONE HCL (IR)] 10 - 20 mg PO Q4H PRN 03/25/22 03/30/22 History Fluconazole [Diflucan] 100 mg PO DAILY #14 tab 03/27/22 03/30/22 Rx Terbinafine 1% Cream [LamISIL] 1 applic TOPICAL TID 90 Days #15 gm 03/27/2210/09 Rx clindamycin HCL 300 mg PO Q6H #24 capsule 03/27/22 03/30/22 Rx Carfilzomib [Kyprolis] 1 dose IV DIRECTED 03/30/22 03/30/22 History Allergies Allergy/AdvReac Type Severity Reaction Status Date / Time sulfamethoxazole Allergy Rash/Hives Verified 03/30/22 11:35 [From Bactrim] trimethoprim [From Bactrim] Allergy Rash/Hives Verified 03/30/22 11:35 Physical Exam Vitals: Vital Signs Temp Pulse Pulse Resp BP BP Pulse Ox 03/30/22 11:27 98.5 F 74 20 128/77 96 03/30/22 08:00 77 16 110/67 97 03/30/22 06:00 85 18 135/86 99 03/30/22 04:26 98.2 F 100 18 113/92 98 Intake and Output 03/29/22 03/30/22 03/30/22 22:59 06:59 14:59 Other: Voiding Method Urinal Weight 99.79 kg 94.5 kg - Constitutional General appearance: no acute distress - EENT Eyes: EOMI, PERRLA ENT: hearing grossly normal, normal oropharynx - Neck Neck: no lymphadenopathy Thyroid: bilateral: normal size - Respiratory Respiratory: bilateral: CTA - Cardiovascular Rhythm: regular Heart sounds: normal: S1, S2 - Gastrointestinal General gastrointestinal: normal bowel sounds, soft - Integumentary left lower extremity swelling below knee, with patchy diffuse erythema. One lesion medially, but we between knee and ankle, in 2-3 other lesions posteriorly, slightly raised, hyperpigmented, slightly puffy. Significant tenderness on palpation in these areas Integumentary: calor, cellulitis - Neurologic Neurologic: CNII-XII intact, focal deficits (questionable lower extremity mild weakness) - Musculoskeletal Musculoskeletal: generalized weakness, strength equal bilaterally Results CBC & Chem 7: 03/30/22 05:40 03/30/22 05:40 Labs: Abnormal Lab Results - Last 24 Hours (Table) 03/30/22 03/30/22 03/30/22 Range/Units 05:40 05:40 05:40 RBC 4.04 L (4.30-5.90) m/uL Hgb 12.5 L (13.0-17.5) gm/dL Hct 38.7 L (39.0-53.0) % RDW 19.7 H (11.5-15.5) % Plt Count 107 L (150-450) k/uL Lymphocytes # 0.2 L (1.0-4.8) k/uL ESR 60 H (0-15) mm/hr Sodium 130 L (137-145) mmol/L BUN 38 H (9-20) mg/dL Creatinine 2.06 H (0.66-1.25) mg/dL Creatine Kinase 36 L (55-170) U/L C-Reactive Protein 9.0 H (<1.0) mg/dL Total Protein 5.7 L (6.3-8.2) g/dL Albumin 3.2 L (3.5-5.0) g/dL Urine Protein (Negative) 03/30/22 Range/Units 06:10 RBC (4.30-5.90) m/uL Hgb (13.0-17.5) gm/dL Hct (39.0-53.0) % RDW (11.5-15.5) % Plt Count (150-450) k/uL Lymphocytes # (1.0-4.8) k/uL ESR (0-15) mm/hr Sodium (137-145) mmol/L BUN (9-20) mg/dL Creatinine (0.66-1.25) mg/dL Creatine Kinase (55-170) U/L C-Reactive Protein (<1.0) mg/dL Total Protein (6.3-8.2) g/dL Albumin (3.5-5.0) g/dL Urine Protein Trace H (Negative) Comments: X ray tib/fib reviewed Assessment and Plan (1) Left leg cellulitis Narrative/Plan: the patient had improved at the time of his recent discharge. However, there has been worsening with increased swelling, and pain, despite continuing oral antibiotics. On examination there appeared to be focal areas of markedly increased tenderness. Given the patient's significantly immunocompromise state, CT of the lower extremity. We'll be ordered to check for deeper soft tissue infection including necrotizing fasciitis. I'll also repeat Dopplers Current Visit: Yes Status: Acute Code(s): L03.116 - CELLULITIS OF LEFT LOWER LIMB SNOMED Code(s): 682208582 (2) Intractable back pain Narrative/Plan: the patient reports increase in back pain, and possibly some lower extremity weakness. MRI of the thoracic and lumbar spine will be ordered, and the patient started on Decadron. This can be discontinued if there is no evidence of cord compression. Current Visit: Yes Status: Acute Code(s): M54.9 - DORSALGIA, UNSPECIFIED SNOMED Code(s): 110472277 (3) Multiple myeloma Narrative/Plan: the patient has recently been started on a new regimen. This is currently on hold. This can be resumed, once acute condition resolves in a satisfactory manner. Current Visit: No Status: Chronic Priority: Medium Code(s): C90.00 - MULTIPLE MYELOMA NOT HAVING ACHIEVED REMISSION SNOMED Code(s): 715063577
[2022-03-31] MEDS: HYDROmorphone 1 MG/ML 1 ML SYRINGE IVP PRN ×5 (00:42→23:50)
[2022-03-31] MEDS: CLINDAMYCIN 900 MG in DEXTROSE 5% IN WATER 50 ML IVPB SCH ×8 (03:42→23:10)
[2022-03-31] MEDS: SODIUM CHLORIDE 0.9% 1,000 ML IV SCH ×2 (03:43→20:01)
[2022-03-31] MEDS: DEXAMETHASONE SOD PHOSPHATE 4 MG/ML 1 ML VIAL IVP SCH ×3 (03:43→20:01)
[2022-03-31] MEDS ORDERED: VANCOMYCIN 1,750 MG in SODIUM CHLORIDE 0.9% 500 ML 500 ML IVPB ONE (06:00)
[2022-03-31] MEDS ORDERED: VANCOMYCIN 1,750 MG in SODIUM CHLORIDE 0.9% 500 ML 500 ML IVPB SCH (06:00)
[2022-03-31 06:40] LABS: ALT 20 U/L (4-49); AST 26 U/L (17-59); African American GFR (CKD) 46 (>60 ml/min/1.73 sqM); Albumin 2.2 g/dL (3.5-5.0); Albumin/Globulin Ratio 1.2; Alkaline Phosphatase 57 U/L (38-126); Anion Gap 3 mmol/L; Blood Urea Nitrogen 32 mg/dL (9-20); Calcium 7.5 mg/dL (8.4-10.2); Carbon Dioxide 28 mmol/L (22-30); Chloride 103 mmol/L (98-107); Creatine Kinase 22 U/L (55-170); Globulin 1.8 g/dL; Glucose 159 mg/dL (74-99); Non-African American GFR(CKD) 40 (>60 ml/min/1.73 sqM); Potassium 3.9 mmol/L (3.5-5.1); Sodium 134 mmol/L (137-145); Total Bilirubin 0.1 mg/dL (0.2-1.3)
[2022-03-31 06:56] LABS: C Reactive Protein 14.2 mg/dL (<1.0)
[2022-03-31] MEDS: GABAPENTIN 300 MG CAP PO SCH ×3 (08:07→20:01)
[2022-03-31 10:58] LABS: Basophils # (A) 0.01 X 10*3/uL (0.00-0.10); Basophils % (A) 0.3 %; Eosinophils # (A) 0 X 10*3/uL (0.04-0.35); Eosinophils % (A) 0 %; HCT 26.2 % (39.6-50.0); HGB 8.3 g/dL (13.0-17.0); Immature Grans, Automated 2.5 %; Lymphocytes # (A) 0.03 X 10*3/uL (0.90-5.00); Lymphocytes % (A) 0.8 %; MCH 29.6 pg (27.0-32.0); MCHC 31.7 g/dL (32.0-37.0); MCV 93.6 fL (80.0-97.0); Mean Platelet Volume 13.8 fL (9.5-12.2); Monocytes # (A) 0.05 X 10*3/uL (0.20-1.00); Monocytes % (A) 1.4 %; NRBC Per 100 WBC 0.5 /100 WBCS (0.0-0.0); Neutrophils # (A) 3.47 X 10*3/uL (1.80-7.70); Platelet Count 70 X 10*3/uL (140-440); RDW 20.1 % (11.5-14.5); WBC 3.65 X 10*3/uL (4.50-10.00)
[2022-03-31 10:59] LABS: Immature Platelet Fraction 12.4 % (1.1-6.1)
[2022-03-31] MEDS: MULTIVITAMINS, THERA 1 EACH TAB PO SCH (11:51)
[2022-03-31] MEDS: CALCIUM CARB-VIT D 500 MG-5 MCG TAB PO SCH (11:51)
[2022-03-31] MEDS: ACYCLOVIR 200 MG CAP PO SCH ×2 (11:51→20:01)
[2022-03-31] MEDS: APIXABAN 5 MG TAB PO SCH ×2 (11:51→20:01)
[2022-03-31] MEDS: FLUCONAZOLE 100 MG TAB PO SCH (11:51)
[2022-03-31] MEDS: ASPIRIN 81 MG PO SCH (11:51)
[2022-03-31] MEDS: PANTOPRAZOLE 40 MG/10 ML VIAL IVP SCH (11:51)
--- NOTE | 2022-03-31 12:05 | P.PN ---
Subjective Progress Note Date: 03/31/22 Principal diagnosis: Left lower leg cellulitis The patient is a 67 y/o male that was admitted for left lower leg cellulitis, weakness, and pain. He states his leg is feeling much better than when he was admitted. He denies fever and chills. The patient is currently on IV cefazolin and clindamycin. Objective - Vital Signs Vital signs: Vital Signs Temp 97.6 F 03/31/22 05:00 Pulse 66 03/31/22 05:00 Resp 16 03/31/22 05:00 BP 125/76 03/31/22 05:00 Pulse Ox 97 03/31/22 05:00 FiO2 Intake & Output 03/30/22 03/31/22 03/31/22 18:59 06:59 18:59 Intake Total 400 2390 Balance 400 2390 Weight 94.5 kg Intake: Intake, IV Titration 400 1650 Amount Clindamycin 900 mg In 100 Dextrose 5% in Water 50 ml @ 50 mls/hr IVPB Q6H NNAMDI Rx#:[id number] Sodium Chloride 0.9% 1, 400 1500 000 ml @ 100 mls/hr IV . Q10H NNAMDI Rx#:[id number] ceFAZolin 2 gm In Sodium 50 Chloride 0.9% 50 ml @ 100 mls/hr IVPB Q8HR NNAMDI Rx# :[id number] Oral 740 Other: Voiding Method Urinal Urinal # Voids 2 4 - Exam The patient is a 67 y/o male in no acute distress. He is alert and oriented x3. Exam of the left lower extremity reveals improved swelling and erythema to the lower leg. There is receding of erythema to the marked areas. He is able to wiggle his toes and move his ankle without much difficulty. No area of tenderness today. Circulatory and neurological status is intact. - Labs CBC & Chem 7: 03/31/22 05:44 03/31/22 05:44 Labs: Abnormal Lab Results - Last 24 Hours (Table) 03/30/22 03/31/22 03/31/22 Range/Units 05:40 05:44 05:44 WBC 3.65 L (4.50-10.00) X 10*3/uL RBC 2.80 L (4.40-5.60) X 10*6/uL Hgb 8.3 L (13.0-17.0) g/dL Hct 26.2 L (39.6-50.0) % MCHC 31.7 L (32.0-37.0) g/dL RDW 20.1 H (11.5-14.5) % Plt Count 70 L (140-440) X 10*3/uL MPV 13.8 H (9.5-12.2) fL Absolute Nucleated RBC 0.02 H (0.00-0.00) X 10*3/uL Immature Gran # 0.09 H (0.00-0.04) X 10*3/uL Lymphocytes # 0.03 L (0.90-5.00) X 10*3/uL Monocytes # 0.05 L (0.20-1.00) X 10*3/uL Eosinophils # 0 L (0.04-0.35) X 10*3/uL NRBC/100 WBC Diff 0.5 H (0.0-0.0) /100 WBCS Immature Plt Fraction 12.4 H (1.1-6.1) % Sodium 134 L (137-145) mmol/L BUN 32 H (9-20) mg/dL Creatinine 1.73 H (0.66-1.25) mg/dL Glucose 159 H (74-99) mg/dL Calcium 7.5 L (8.4-10.2) mg/dL Total Bilirubin 0.1 L (0.2-1.3) mg/dL Creatine Kinase 22 L (55-170) U/L C-Reactive Protein 14.2 H (<1.0) mg/dL Total Protein 4.0 L (6.3-8.2) g/dL Total Protein (PEP) 5.4 L (6.2-8.2) g/dL Albumin 2.2 L (3.5-5.0) g/dL IgG 312.0 L (700.0-1600.0) mg/dL IgA <50.0 L (60.0-350.0) mg/dL IgM <25.0 L (40.0-280.0) mg/dL Microbiology - Last 24 Hours (Table) 03/30/22 05:40 Blood Culture - Preliminary Blood No Growth after 24 hours Assessment and Plan (1) Left leg cellulitis Current Visit: Yes Status: Acute Code(s): L03.116 - CELLULITIS OF LEFT LOWER LIMB SNOMED Code(s): 876750755 (2) History of multiple myeloma Current Visit: Yes Status: Chronic Priority: Medium Code(s): Z85.79 - PRSNL HX OF MALIG NEOPLM OF LYMPHOID, HEMATPOETC & REL TISS SNOMED Code(s): 854368231586962 Plan: The clinical findings were discussed with the patient and his . The case was discussed at length with Dr. Valencia. There is much improvement of his cellulitis. Clinical doubt necrotizing fasciitis at this time. No surgical intervention is planned due to clinical improvement of his infection. Continue antibiotics per infectious disease. Continue elevation of the left leg above the heart. The patient is orthopedically stable and we will sign off at this time.
--- NOTE | 2022-03-31 14:09 | P.PN ---
Subjective Progress Note Date: 03/31/22 Hospital course: Patient is a 66-year-old male with a past medical history of CAD, hyperlipidemia, history of pulmonary emboli on anticoagulation with Eliquis, and multiple myeloma currently undergoing chemotherapy receiving last dose 03/24/22. He presented to the emergency department for evaluation of left lower extremity wound/cellulitis. Patient recently underwent hospitalization for left lower extremity cellulitis after failing outpatient antibiotic course 5 days and experiencing worsening left lower extremity pain and swelling patient underwent three-day hospitalization receiving vancomycin and cefepime and was discharged home on 03/27/22 with oral clindamycin for an additional 6 days. Patient returned to the emergency department today secondary to continued left lower extremity pain and swelling despite taking antibiotic as directed. Patient reports pain has been so severe he is unable to put any pressure on his left leg and because of this it is now accompanied by uncontrolled cancer pain in his back. Patient denies having any recent fevers, chills, diaphoresis, chest pain, palpitations, shortness of breath or experiencing any numbness/tingling in his extremities. Patient underwent full evaluation in the emergency department. CBC revealing normocytic normochromic anemia with hemoglobin of 12.5 and thrombocytopenia with platelet count of 107. BMP reveal ing a sodium of 130 and an acute kidney injury with BUN 38, creatinine 2.06 and GFR of 32 with baseline creatinine of 1.4. Liver profile unremarkable. Troponin -0.022. Urinalysis positive for protein and negative for blood or infection. CRP elevated 9.0. Covid 19 PCR, influenza A and influenza B were all negative. Patient has been admitted under our services with consultation to infectious disease and oncology. CT left lower extremity was completed concerning for necrotizing fasciitis. Page sent to orthopedic surgeon, Dr. Galvan whom evaluated CT as well as patient had bedside. Clinically there is doubt that current infection of cellulitis is secondary to necrotizing fasciitis as patient is already showing improvement with IV antibiotics. Physical exam: Patient was seen and fully evaluated at bedside this morning. Left lower extremity cellulitis showing significant improvement with current IV antibiotic regimen. Erythema and edema significantly improved. Patient's condition remained stable. Patient denies having any fevers, chills, diaphoresis, dizziness, lightheadedness or chest. Nausea or vomiting. Morning labs revealed pancytopenia with WBC count of 3.65, hemoglobin 8.3, and platelet count of 70. Repeat CBC to be drawn this afternoon as this is a reported 4.2 g drop in hemoglobin over 24 hour timeframe with no noted signs or symptoms of bleeding. Vital signs reviewed and stable. General: Nontoxic, no distress and appears stated age. Derm: Skin warm and dry, normal coloration for ethnicity. Head: Atraumatic, normocephalic and symmetric. Eyes: EOMs intact, no lid lag, and anicteric sclera Mouth: no lip lesions, mucus membranes moist Cardiovascular: regular rate and rhythm with normal S1S2, no murmur, positive posterior tibial pulses bilaterally, and cap refill < 2 seconds. Lungs: Respirations even, regular, and unlabored on room air. Lungs CTA bilaterally, no rhonchi, no rales, no wheezing, and no accessory muscle usage. Abdominal: soft, nontender to palpation, no guarding, no appreciable organomegaly Ext: ROM intact. No gross muscle atrophy, left lower extremity 2+ pitting edema, right lower extremity 1+ no contractures. Left lower extremity with edema (2+ pitting), 2 small areas of erythema, and increased warmth throughout left foot extending up to pts knee Neuro: Speech clear, face symmetrical and CN II-XII grossly intact with no noted focal neuro deficits Psych: Alert and oriented to person, place, time, and situation. Appropriate and pleasant affect. Assessment and Plan of Care: Left lower extremity cellulitis, failed outpatient treatment 2 rounds currently undergoing chemotherapy. -Infectious disease consulted. -X-ray tib/fib: Negative for acute process -CT of Left lower extremity reported concerns of necrotizing fasciitis -Orthopedic surgeon consulted, she reported that she reviewed CT films personally as well as evaluated patient at bedside and currently doubtful that patient's cellulitis is necrotizing fasciitis. -Left lower extremity venous Doppler was negative for DVT. -Blood cultures negative to date -Continue with IV antibiotics: Cefazolin and clindamycin -Symptomatic care and pain management -Fall precautions -ESR 60 and CRP 14.2. Acute kidney injury, improving with gentle IV fluid hydration. -Improving with gentle IV hydration. -Continue to hold nephrotoxic medications including furosemide. -Continued close monitoring with repeat a.m. labs. Hyponatremia, improving with gentle IV fluid hydration. Multiple myeloma currently undergoing chemotherapy with last treatment 03/24/22 -Oncology consulted History of Pulmonary emboli -Continue anticoagulation with Eliquis, CODE STATUS: Full code DVT prophylaxis: Eliquis Discussed with: Patient and RN Anticipated discharge date: Clinical course to determine Anticipated discharge place: Home versus SNF to receive IV antibiotics A total of 35 minutes was spent on the care of this complex patient more than 50% of the time was spent in counseling and care coordination. I reviewed the documentation as provided by the [place] above, who is the original author of this note. I agree with the documented assessment and plan, with the following changes: none Objective - Vital Signs Vital signs: Vital Signs Temp 97.6 F 03/31/22 05:00 Pulse 66 03/31/22 05:00 Resp 16 03/31/22 05:00 BP 125/76 03/31/22 05:00 Pulse Ox 97 03/31/22 05:00 FiO2 Intake & Output 03/30/22 03/31/22 03/31/22 18:59 06:59 18:59 Intake Total 400 2390 Balance 400 2390 Weight 94.5 kg Intake: Intake, IV Titration 400 1650 Amount Clindamycin 900 mg In 100 Dextrose 5% in Water 50 ml @ 50 mls/hr IVPB Q6H NNAMDI Rx#:[id number] Sodium Chloride 0.9% 1, 400 1500 000 ml @ 100 mls/hr IV . Q10H NNAMDI Rx#:[id number] ceFAZolin 2 gm In Sodium 50 Chloride 0.9% 50 ml @ 100 mls/hr IVPB Q8HR NNAMDI Rx# :[id number] Oral 740 Other: Voiding Method Urinal Urinal # Voids 2 4 - Labs CBC & Chem 7: 03/31/22 05:44 03/31/22 05:44 Labs: Abnormal Lab Results - Last 24 Hours (Table) 03/30/22 03/31/22 Range/Units 05:40 05:44 Sodium 134 L (137-145) mmol/L BUN 32 H (9-20) mg/dL Creatinine 1.73 H (0.66-1.25) mg/dL Glucose 159 H (74-99) mg/dL Calcium 7.5 L (8.4-10.2) mg/dL Total Bilirubin 0.1 L (0.2-1.3) mg/dL Creatine Kinase 22 L (55-170) U/L C-Reactive Protein 14.2 H (<1.0) mg/dL Total Protein 4.0 L (6.3-8.2) g/dL Total Protein (PEP) 5.4 L (6.2-8.2) g/dL Albumin 2.2 L (3.5-5.0) g/dL IgG 312.0 L (700.0-1600.0) mg/dL IgA <50.0 L (60.0-350.0) mg/dL IgM <25.0 L (40.0-280.0) mg/dL Microbiology - Last 24 Hours (Table) 03/30/22 05:40 Blood Culture - Preliminary Blood No Growth after 24 hours
--- NOTE | 2022-03-31 15:46 | P.PN ---
Subjective Progress Note Date: 03/31/22 Principal diagnosis: LLE Abscess IgG low <400 Add PPI with Dex Lower extremity is improved Objective - Vital Signs Vital signs: Vital Signs Temp 97.6 F 03/31/22 05:00 Pulse 66 03/31/22 05:00 Resp 16 03/31/22 05:00 BP 125/76 03/31/22 05:00 Pulse Ox 97 03/31/22 05:00 FiO2 Intake & Output 03/30/22 03/31/22 03/31/22 18:59 06:59 18:59 Intake Total 400 2390 Balance 400 2390 Weight 94.5 kg Intake: Intake, IV Titration 400 1650 Amount Clindamycin 900 mg In 100 Dextrose 5% in Water 50 ml @ 50 mls/hr IVPB Q6H [facility] Rx#:[id number] Sodium Chloride 0.9% 1, 400 1500 000 ml @ 100 mls/hr IV . Q10H [facility] Rx#:[id number] ceFAZolin 2 gm In Sodium 50 Chloride 0.9% 50 ml @ 100 mls/hr IVPB Q8HR [facility] Rx# :[id number] Oral 740 Other: Voiding Method Urinal Urinal # Voids 2 4 - Exam - Constitutional General appearance: no acute distress - EENT Eyes: EOMI, PERRLA ENT: hearing grossly normal, normal oropharynx - Neck Neck: no lymphadenopathy Thyroid: bilateral: normal size - Respiratory Respiratory: bilateral: CTA - Cardiovascular Rhythm: regular Heart sounds: normal: S1, S2 - Gastrointestinal General gastrointestinal: normal bowel sounds, soft - Integumentary left lower extremity swelling below knee, with patchy diffuse erythema. One lesion medially, but we between knee and ankle, in 2-3 other lesions posteriorly, slightly raised, hyperpigmented, slightly puffy. Significant te nderness on palpation in these areas Integumentary: calor, cellulitis - Neurologic Neurologic: CNII-XII intact, focal deficits (questionable lower extremity mild weakness) - Musculoskeletal Musculoskeletal: generalized weakness, strength equal bilaterally - Labs CBC & Chem 7: 03/31/22 05:44 03/31/22 05:44 Labs: Abnormal Lab Results - Last 24 Hours (Table) 03/30/22 03/31/22 Range/Units 05:40 05:44 Sodium 134 L (137-145) mmol/L BUN 32 H (9-20) mg/dL Creatinine 1.73 H (0.66-1.25) mg/dL Glucose 159 H (74-99) mg/dL Calcium 7.5 L (8.4-10.2) mg/dL Total Bilirubin 0.1 L (0.2-1.3) mg/dL Creatine Kinase 22 L (55-170) U/L C-Reactive Protein 14.2 H (<1.0) mg/dL Total Protein 4.0 L (6.3-8.2) g/dL Total Protein (PEP) 5.4 L (6.2-8.2) g/dL Albumin 2.2 L (3.5-5.0) g/dL IgG 312.0 L (700.0-1600.0) mg/dL IgA <50.0 L (60.0-350.0) mg/dL IgM <25.0 L (40.0-280.0) mg/dL Microbiology - Last 24 Hours (Table) 03/30/22 05:40 Blood Culture - Preliminary Blood No Growth after 24 hours Assessment and Plan Plan: Comments: X ray tib/fib reviewed Assessment and Plan (1) Left leg cellulitis Narrative/Plan: the patient had improved at the time of his recent discharge. However, there has been worsening with increased swelling, and pain, despite continuing oral antibiotics. On examination there appeared to be focal areas of markedly increased tenderness. Given the patient's significantly immunocompromise state, CT of the lower extremity. We'll be ordered to check for deeper soft tissue infection including necrotizing fasciitis. I'll also repeat Dopplers Current Visit: Yes Status: Acute Code(s): L03.116 - CELLULITIS OF LEFT LOWER LIMB SNOMED Code(s): 876067082 (2) Intractable back pain Narrative/Plan: the patient reports increase in back pain, and possibly some lower extremity weakness. MRI of the thoracic and lumbar spine will be ordered, and the patient started on Decadron. This can be discontinued if there is no evidence of cord compression. Current Visit: Yes Status: Acute Code(s): M54.9 - DORSALGIA, UNSPECIFIED SNOMED Code(s): 278734084 (3) Multiple myeloma Narrative/Plan: the patient has recently been started on a new regimen. This is currently on hold. This can be resumed, once acute condition resolves in a satisfactory manner. Current Visit: No Status: Chronic Priority: Medium Code(s): C90.00 - MULTIPLE MYELOMA NOT HAVING ACHIEVED REMISSION SNOMED Code(s): 929268124 PLAN: - Await MRU - COntinue Dex and PPI - Continue IV Abx Dr. Dave: I have completed the full history an physical and developed the abov e impression and plan, agree with dictation, dictated as a scribe.
--- NOTE | 2022-03-31 15:50 | MR ---
EXAMINATION TYPE: MR tspine/lspine wo con DATE OF EXAM: 03/31/2022 COMPARISON: Nuclear medicine PET/CT 02/28/2022, MR 02/19/2022 HISTORY: impending cord compression. TECHNIQUE: Multiplanar, multisequence imaging of the right second and and lumbar spine is performed w ithout IV contrast. FINDINGS: Thoracic and lumbar spine MRI: Compression deformity with loss of height of greater than 75% present at T11, there is mild retropulsion similar to prior exam, no significant spinal stenosis is evident. There is facet arthropathy especially in the lower lumbar spine. No sizable disc herniation. T12 show s abnormal signal likely due to marrow replacement, associated lytic lesion is present extending to t he posterior elements, the right pedicle. Inferior endplate of T9 shows possible microtrabecular frac ture or Schmorl's node, small focus of abnormal signal noted within the T8 vertebral body, there is m ild anterior wedging at T7. Multilevel spondylosis noted. Disc spaces are maintained. There is a mild spinal curvature. Posterior rib on the right shows marrow placement correlating with patient's PET/C T, sixth rib, additional rib irregularity noted of the second rib on the right posteriorly. Thoracic cord signal is maintained. Compression deformities in the lumbar spine are again noted, marrow replacement with lytic lesions jean spected at L1, there is similar appearance to the lower spine. No significant spinal stenosis. L5-S1 shows posterior extension endplate disc complex causing anterior mass effect on the thecal sac, there is some associated facet arthropathy, trefoil appearance of the thecal sac is present. Facet a rthropathy encroaches on the lateral recesses. Circumferential extension endplate disc complex encroa ches on the neural foramina bilaterally. Irregularity the L5 vertebral body shows a similar appearance, inferior abnormal appearance of L2 is again seen, compression deformity of L1 shows a similar appearance. Circumferential extension of endp late disc complex L5-S1 encroaches somewhat on the left neural foramen greater than right IMPRESSION: Findings consistent with multiple myeloma as described. No significant progression of pat ient's retropulsion at T11. There are underlying degenerative disc changes, foraminal encroachment.
[2022-03-31 16:06] LABS: Anisocytosis Slight; HCT 29.4 % (39.0-53.0); HGB 9.4 gm/dL (13.0-17.5); Hypochromasia Slight; MCHC 32.1 g/dL (31.0-37.0); MCV 96.7 fL (80.0-100.0); Macrocytosis Slight; Mean Platelet Volume 11.1; Platelet Count 84 k/uL (150-450); RBC 3.04 m/uL (4.30-5.90); RDW 19.8 % (11.5-15.5); WBC 5.1 k/uL (3.8-10.6)
--- NOTE | 2022-03-31 22:30 | P.PN ---
Subjective Progress Note Date: 03/31/22 Principal diagnosis: Left lower extremity cellulitis Patient is a 67-year-old male recently admitted and treated for cellulitis was subsequently readmitted to the hospital with worsening swelling and redness has been diagnosed with left leg cellulitis failing outpatient oral antibiotics patient did have a CT of the leg suspicious for possible necrotizing infection. On today's evaluation that is 03/31/2022, the patient denies having any fever or any chills, patient is feeling much better. Discomfort in the left leg has decreased denies having any open wound or any drainage, denies any chest pain or shortness of breath or cough no abdominal pain or diarrhea Objective - Vital Signs Vital signs: Vital Signs Temp 97.6 F 03/31/22 05:00 Pulse 66 03/31/22 05:00 Resp 16 03/31/22 05:00 BP 125/76 03/31/22 05:00 Pulse Ox 97 03/31/22 05:00 FiO2 Intake & Output 03/30/22 03/31/22 03/31/22 18:59 06:59 18:59 Intake Total 400 2390 Balance 400 2390 Weight 94.5 kg Intake: Intake, IV Titration 400 1650 Amount Clindamycin 900 mg In 100 Dextrose 5% in Water 50 ml @ 50 mls/hr IVPB Q6H [facility] Rx#:[id number] Sodium Chloride 0.9% 1, 400 1500 000 ml @ 100 mls/hr IV . Q10H [facility] Rx#:[id number] ceFAZolin 2 gm In Sodium 50 Chloride 0.9% 50 ml @ 100 mls/hr IVPB Q8HR [facility] Rx# :[id number] Oral 740 Other: Voiding Method Urinal Urinal # Voids 2 4 - Exam GENERAL DESCRIPTION: An elderly male lying in bed in no distress RESPIRATORY SYSTEM: Unlabored breathing , decreased breath sounds at bases HEART: S1 S2 regular rate and rhythm , ABDOMEN: Soft , no tenderness EXTREMITIES: Left leg swelling and redness has decreased no tenderness or drainage - Labs CBC & Chem 7: 03/31/22 15:15 03/31/22 05:44 Labs: Abnormal Lab Results - Last 24 Hours (Table) 03/30/22 03/31/22 03/31/22 Range/Units 05:40 05:44 05:44 WBC 3.65 L (4.50-10.00) X 10*3/uL RBC 2.80 L (4.40-5.60) X 10*6/uL Hgb 8.3 L (13.0-17.0) g/dL Hct 26.2 L (39.6-50.0) % MCHC 31.7 L (32.0-37.0) g/dL RDW 20.1 H (11.5-14.5) % Plt Count 70 L (140-440) X 10*3/uL MPV 13.8 H (9.5-12.2) fL Absolute Nucleated RBC 0.02 H (0.00-0.00) X 10*3/uL Immature Gran # 0.09 H (0.00-0.04) X 10*3/uL Lymphocytes # 0.03 L (0.90-5.00) X 10*3/uL Monocytes # 0.05 L (0.20-1.00) X 10*3/uL Eosinophils # 0 L (0.04-0.35) X 10*3/uL NRBC/100 WBC Diff 0.5 H (0.0-0.0) /100 WBCS Immature Plt Fraction 12.4 H (1.1-6.1) % Sodium 134 L (137-145) mmol/L BUN 32 H (9-20) mg/dL Creatinine 1.73 H (0.66-1.25) mg/dL Glucose 159 H (74-99) mg/dL Calcium 7.5 L (8.4-10.2) mg/dL Total Bilirubin 0.1 L (0.2-1.3) mg/dL Creatine Kinase 22 L (55-170) U/L C-Reactive Protein 14.2 H (<1.0) mg/dL Total Protein 4.0 L (6.3-8.2) g/dL Total Protein (PEP) 5.4 L (6.2-8.2) g/dL Albumin 2.2 L (3.5-5.0) g/dL IgG 312.0 L (700.0-1600.0) mg/dL IgA <50.0 L (60.0-350.0) mg/dL IgM <25.0 L (40.0-280.0) mg/dL Microbiology - Last 24 Hours (Table) 03/30/22 05:40 Blood Culture - Preliminary Blood No Growth after 24 hours Assessment and Plan (1) Left leg cellulitis Current Visit: Yes Status: Acute Code(s): L03.116 - CELLULITIS OF LEFT LOWER LIMB SNOMED Code(s): 225897758 Plan: 1patient presented to hospital with left lower extremity pain swelling redness in this patient who was recently treated at this facility and discharged about 3 days ago on oral clindamycin presenting with worsening pain and swelling and concern for left lower extremity cellulitis and concern for possible necrotizing infection however the patient clinically not behaving as such with no fever no white count and no significant tenderness on local examination. 2 patient to continue cefazolin 2 g every 8 hours and clindamycin in view of clinical response and monitor clinical course closely. Time with Patient: Less than 30
[2022-04-01] MEDS: CLINDAMYCIN 900 MG in DEXTROSE 5% IN WATER 50 ML IVPB SCH ×8 (03:34→21:29)
[2022-04-01] MEDS: DEXAMETHASONE SOD PHOSPHATE 4 MG/ML 1 ML VIAL IVP SCH ×3 (03:34→21:29)
[2022-04-01 06:43] LABS: ALT 10 U/L (4-49); AST 22 U/L (17-59); African American GFR (CKD) 44 (>60 ml/min/1.73 sqM); Albumin 2.2 g/dL (3.5-5.0); Albumin/Globulin Ratio 1.1; Alkaline Phosphatase 50 U/L (38-126); Anion Gap 5 mmol/L; Blood Urea Nitrogen 38 mg/dL (9-20); Calcium 6.8 mg/dL (8.4-10.2); Carbon Dioxide 26 mmol/L (22-30); Chloride 104 mmol/L (98-107); Glucose 122 mg/dL (74-99); Magnesium 1.9 mg/dL (1.6-2.3); Non-African American GFR(CKD) 38 (>60 ml/min/1.73 sqM); Potassium 3.7 mmol/L (3.5-5.1); Sodium 135 mmol/L (137-145); Total Bilirubin 0.2 mg/dL (0.2-1.3); Total Protein 4.2 g/dL (6.3-8.2)
[2022-04-01] MEDS: SODIUM CHLORIDE 0.9% 1,000 ML IV SCH ×2 (08:13→21:28)
[2022-04-01] MEDS: GABAPENTIN 300 MG CAP PO SCH ×3 (08:16→21:29)
[2022-04-01] MEDS: FLUCONAZOLE 100 MG TAB PO SCH (08:16)
[2022-04-01] MEDS: ACYCLOVIR 200 MG CAP PO SCH ×2 (08:16→21:29)
[2022-04-01] MEDS: MULTIVITAMINS, THERA 1 EACH TAB PO SCH (08:16)
[2022-04-01] MEDS: ASPIRIN 81 MG PO SCH (08:16)
[2022-04-01] MEDS: APIXABAN 5 MG TAB PO SCH ×2 (08:16→21:29)
[2022-04-01] MEDS: CALCIUM CARB-VIT D 500 MG-5 MCG TAB PO SCH (08:16)
[2022-04-01] MEDS: PANTOPRAZOLE 40 MG/10 ML VIAL IVP SCH (08:16)
[2022-04-01] MEDS: HYDROmorphone 1 MG/ML 1 ML SYRINGE IVP PRN ×2 (08:25→21:31)
[2022-04-01 09:03] LABS: Vancomycin,Random 11.2 ug/mL
[2022-04-01 10:19] LABS: Basophils # (A) 0 X 10*3/uL (0.00-0.10); Basophils % (A) 0 %; Eosinophils # (A) 0 X 10*3/uL (0.04-0.35); Eosinophils % (A) 0 %; HCT 27.4 % (39.6-50.0); HGB 8.8 g/dL (13.0-17.0); Immature Grans, Automated 1.5 %; Lymphocytes # (A) 0.08 X 10*3/uL (0.90-5.00); Lymphocytes % (A) 1.7 %; MCH 29.5 pg (27.0-32.0); MCHC 32.1 g/dL (32.0-37.0); MCV 91.9 fL (80.0-97.0); Monocytes # (A) 0.16 X 10*3/uL (0.20-1.00); Monocytes % (A) 3.4 %; NRBC Per 100 WBC 0 /100 WBCS (0.0-0.0); Neutrophils # (A) 4.37 X 10*3/uL (1.80-7.70); Neutrophils % (A) 93.4 %; Platelet Count 74 X 10*3/uL (140-440); RBC 2.98 X 10*6/uL (4.40-5.60); RDW 20.2 % (11.5-14.5); WBC 4.68 X 10*3/uL (4.50-10.00)
[2022-04-01 10:38] LABS: Immature Platelet Fraction 14.1 % (1.1-6.1)
--- NOTE | 2022-04-01 11:29 | P.PN ---
Subjective Progress Note Date: 04/01/22 Hospital course: Patient is a 66-year-old male with a past medical history of CAD, hyperlipidemia, history of pulmonary emboli on anticoagulation with Eliquis, and multiple myeloma currently undergoing chemotherapy receiving last dose 03/24/22. He presented to the emergency department for evaluation of left lower extremity wound/cellulitis. Patient recently underwent hospitalization for left lower extremity cellulitis after failing outpatient antibiotic course 5 days and experiencing worsening left lower extremity pain and swelling patient underwent three-day hospitalization receiving vancomycin and cefepime and was discharged home on 03/27/22 with oral clindamycin for an additional 6 days. Patient returned to the emergency department today secondary to continued left lower extremity pain and swelling despite taking antibiotic as directed. Patient reports pain has been so severe he is unable to put any pressure on his left leg and because of this it is now accompanied by uncontrolled cancer pain in his back. Patient denies having any recent fevers, chills, diaphoresis, chest pain, palpitations, shortness of breath or experiencing any numbness/tingling in his extremities. Patient underwent full evaluation in the emergency department. CBC revealing normocytic normochromic anemia with hemoglobin of 12.5 and thrombocytopenia with platelet count of 107. BMP reveal ing a sodium of 130 and an acute kidney injury with BUN 38, creatinine 2.06 and GFR of 32 with baseline creatinine of 1.4. Liver profile unremarkable. Troponin -0.022. Urinalysis positive for protein and negative for blood or infection. CRP elevated 9.0. Covid 19 PCR, influenza A and influenza B were all negative. Patient has been admitted under our services with consultation to infectious disease and oncology. CT left lower extremity was completed concerning for necrotizing fasciitis. Page sent to orthopedic surgeon, Dr. Galvan whom evaluated CT as well as patient had bedside. Clinically there is doubt that current infection of cellulitis is secondary to necrotizing fasciitis as patient is already showing improvement with IV antibiotics. Physical exam: Patient was seen and fully evaluated at bedside this morning. Left lower extremity cellulitis continues to show significant improvement with current IV antibiotic regimen. Erythema and edema significantly improved. Patient's condition stable. He has remained afebrile and denies having any chills, diaphoresis, dizziness, lightheadedness , chest pain, palpitations, SOB, nausea/vomiting, or diarrhea. Hemoglobin stable 8.8. Renal function revealing BUN 38, creatinine 1.80, GFR of 38. Patient to continue with gentle IV fluid hydration and IV antibiotic cefazolin and clindamycin. Likely discharge home on oral antibiotics in the next 24-48 hours. Vital signs reviewed and stable. General: Nontoxic, no distress and appears stated age. Derm: Skin warm and dry, normal coloration for ethnicity. Head: Atraumatic, normocephalic and symmetric. Eyes: EOMs intact, no lid lag, and anicteric sclera Mouth: no lip lesions, mucus membranes moist Cardiovascular: regular rate and rhythm with normal S1S2, no murmur, positive posterior tibial pulses bilaterally, and cap refill < 2 seconds. Lungs: Respirations even, regular, and unlabored on room air. Lungs CTA bilaterally, no rhonchi, no rales, no wheezing, and no accessory muscle usage. Abdominal: soft, nontender to palpation, no guarding, no appreciable organomeg tavon Ext: ROM intact. No gross muscle atrophy, left lower extremity 2+ pitting edema, right lower extremity 1+ no contractures. Left lower extremity with edema (2+ pitting), 2 small areas of erythema siginificantly improving Neuro: Speech clear, face symmetrical and CN II-XII grossly intact with no noted focal neuro deficits Psych: Alert and oriented to person, place, time, and situation. Appropriate and pleasant affect. Assessment and Plan of Care: Left lower extremity cellulitis, failed outpatient treatment 2 rounds currently undergoing chemotherapy. -Infectious disease consulted. -X-ray tib/fib: Negative for acute process -CT of Left lower extremity reported concerns of necrotizing fasciitis -Orthopedic surgeon consulted, she reported that she reviewed CT films personally as well as evaluated patient at bedside and currently doubtful that patient's cellulitis is necrotizing fasciitis. -Left lower extremity venous Doppler was negative for DVT. -Blood cultures negative to date -Continue with IV antibiotics: Cefazolin and clindamycin -Symptomatic care and pain management -Fall precautions -ESR 60 and CRP 14.2. Acute kidney injury, improved with gentle IV fluid hydration. -Improved with gentle IV hydration. -Continue to hold nephrotoxic medications including furosemide. -Continued close monitoring with repeat a.m. labs. Hyponatremia, improving with gentle IV fluid hydration. Multiple myeloma currently undergoing chemotherapy with last treatment 03/24/22 Pancytopenia secondary to above -CBC stable with the RBC count of 4.68, hemoglobin 8.8, and platelet count of 74. -Oncology consulted History of Pulmonary emboli -Continue anticoagulation with Eliquis. CODE STATUS: Full code DVT prophylaxis: Eliquis Discussed with: Patient and RN Anticipated discharge date: Likely tomorrow Anticipated discharge place: Home A total of 35 minutes was spent on the care of this complex patient more than 50% of the time was spent in counseling and care coordination. I reviewed the documentation as provided by the [place] above, who is the original author of this note. I agree with the documented assessment and plan, with the following changes: none Objective - Vital Signs Vital signs: Vital Signs Temp 98.0 F 04/01/22 05:00 Pulse 56 L 04/01/22 05:00 Resp 16 04/01/22 05:00 BP 147/84 04/01/22 05:00 Pulse Ox 97 04/01/22 05:00 FiO2 Intake & Output 03/31/22 04/01/22 04/01/22 18:59 06:59 18:59 Intake Total 200 1070 Output Total 300 Balance 200 770 Intake: Intake, IV Titration 200 Amount Clindamycin 900 mg In 100 Dextrose 5% in Water 50 ml @ 50 mls/hr IVPB Q6H [facility] Rx#:[id number] ceFAZolin 2 gm In Sodium 100 Chloride 0.9% 50 ml @ 100 mls/hr IVPB Q8HR [facility] Rx# :[id number] Oral 1070 Output: Urine 300 Other: Voiding Method Urinal - Labs CBC & Chem 7: 04/01/22 06:01 04/01/22 06:01 Labs: Abnormal Lab Results - Last 24 Hours (Table) 03/31/22 03/31/22 04/01/22 Range/Units 05:44 15:15 06:01 WBC 3.65 L (4.50-10.00) X 10*3/uL RBC 2.80 L 3.04 L (4.40-5.60) X 10*6/uL Hgb 8.3 L 9.4 L D (13.0-17.0) g/dL Hct 26.2 L 29.4 L (39.6-50.0) % MCHC 31.7 L (32.0-37.0) g/dL RDW 20.1 H 19.8 H (11.5-14.5) % Plt Count 70 L 84 L (140-440) X 10*3/uL MPV 13.8 H (9.5-12.2) fL Absolute Nucleated RBC 0.02 H (0.00-0.00) X 10*3/uL Immature Gran # 0.09 H (0.00-0.04) X 10*3/uL Lymphocytes # 0.03 L (0.90-5.00) X 10*3/uL Monocytes # 0.05 L (0.20-1.00) X 10*3/uL Eosinophils # 0 L (0.04-0.35) X 10*3/uL NRBC/100 WBC Diff 0.5 H (0.0-0.0) /100 WBCS Immature Plt Fraction 12.4 H (1.1-6.1) % Sodium 135 L (137-145) mmol/L BUN 38 H (9-20) mg/dL Creatinine 1.80 H (0.66-1.25) mg/dL Glucose 122 H (74-99) mg/dL Calcium 6.8 L (8.4-10.2) mg/dL Total Protein 4.2 L (6.3-8.2) g/dL Albumin 2.2 L (3.5-5.0) g/dL Microbiology - Last 24 Hours (Table) 03/30/22 05:40 Blood Culture - Preliminary Blood No Growth after 48 hours
[2022-04-01 13:07] LABS: Albumin 2.67 g/dL (3.80-4.90); Gamma Globulin 0.28 g/dL (0.70-1.50)
--- NOTE | 2022-04-01 19:45 | P.PN ---
Subjective Progress Note Date: 04/01/22 Principal diagnosis: weakness bilateral lower extremities In follow-up today patient is denying any progression of lower extremity weakness. Maintains bowel and bladder control. Objective - Vital Signs Vital signs: Vital Signs Temp 98.0 F 04/01/22 05:00 Pulse 56 L 04/01/22 05:00 Resp 16 04/01/22 05:00 BP 147/84 04/01/22 05:00 Pulse Ox 97 04/01/22 05:00 FiO2 Intake & Output 03/31/22 04/01/22 04/01/22 18:59 06:59 18:59 Intake Total 200 1070 Output Total 300 Balance 200 770 Intake: Intake, IV Titration 200 Amount Clindamycin 900 mg In 100 Dextrose 5% in Water 50 ml @ 50 mls/hr IVPB Q6H [facility] Rx#:[id number] ceFAZolin 2 gm In Sodium 100 Chloride 0.9% 50 ml @ 100 mls/hr IVPB Q8HR [facility] Rx# :[id number] Oral 1070 Output: Urine 300 Other: Voiding Method Urinal - Constitutional General appearance: Present: average body habitus, cooperative, no acute distress - EENT Eyes: Present: anicteric sclerae, EOMI ENT: Present: hearing grossly normal - Respiratory Respiratory: bilateral: CTA - Cardiovascular Rhythm: regular Heart sounds: normal: S1, S2 Abnormal Heart Sounds: Absent: systolic murmur, diastolic murmur, rub, S3 Gallop, S4 Gallop, click, other - Peripheral edema leg Peripheral Edema: bilateral: Trace - Integumentary Integumentary Comment(s): Dorsal surface of the lt foot, 3cm red, raised lesion, tender to the touch, some peeling of the skin. There is also a 2 cm purplish raised lesion on the medial aspect of the left pineda, tender to the touch. All of the redness and swelling of the lower extremity has otherwise improved - Neurologic Neurologic: Present: CNII-XII intact - Musculoskeletal Musculoskeletal Comment(s): patient is able to move bilateral lower extremity spontaneously. He does need help setting up and standing up currently Musculoskeletal: Present: generalized weakness - Psychiatric Psychiatric: Present: A&O x's 3, appropriate affect, intact judgment & insight - Labs CBC & Chem 7: 04/01/22 06:01 04/01/22 06:01 Labs: Abnormal Lab Results - Last 24 Hours (Table) 03/31/22 04/01/22 04/01/22 Range/Units 15:15 06:01 06:01 RBC 3.04 L 2.98 L (4.30-5.90) m/uL Hgb 9.4 L D 8.8 L (13.0-17.5) gm/dL Hct 29.4 L 27.4 L (39.0-53.0) % RDW 19.8 H 20.2 H (11.5-15.5) % Plt Count 84 L 74 L (150-450) k/uL Plt Count Comment DECREASED A Immature Gran # 0.07 H (0.00-0.04) X 10*3/uL Lymphocytes # 0.08 L (0.90-5.00) X 10*3/uL Monocytes # 0.16 L (0.20-1.00) X 10*3/uL Eosinophils # 0 L (0.04-0.35) X 10*3/uL Immature Plt Fraction 14.1 H (1.1-6.1) % Sodium 135 L (137-145) mmol/L BUN 38 H (9-20) mg/dL Creatinine 1.80 H (0.66-1.25) mg/dL Glucose 122 H (74-99) mg/dL Calcium 6.8 L (8.4-10.2) mg/dL Total Protein 4.2 L (6.3-8.2) g/dL Albumin 2.2 L (3.5-5.0) g/dL Microbiology - Last 24 Hours (Table) 03/30/22 05:40 Blood Culture - Preliminary Blood No Growth after 48 hours - Imaging and Cardiology thoracic and lumbar spine MRI report reviewed Assessment and Plan (1) Weakness of both legs Current Visit: Yes Status: Acute Priority: High Code(s): M62.81 - MUSCLE WEAKNESS (GENERALIZED) SNOMED Code(s): 3408079 (2) Left leg cellulitis Current Visit: Yes Status: Acute Priority: Medium Code(s): L03.116 - CELLU LITIS OF LEFT LOWER LIMB SNOMED Code(s): 434810276 Plan: MRI of the T and L-spine negative for cord compression. We will ask Radiation Oncologist to review report and make recommendations. Continue treatment of cellulitis per Internal Medicine Hold myeloma treatment for now attests: I have seen and examined patient, performed H&P, developed impression and plan of care. Discussed with dictator. Agree with dictation documented as a scribe
[2022-04-02] MEDS: SODIUM CHLORIDE 0.9% 1,000 ML IV SCH ×3 (01:00→22:31)
[2022-04-02] MEDS: DEXAMETHASONE SOD PHOSPHATE 4 MG/ML 1 ML VIAL IVP SCH ×3 (04:40→20:25)
[2022-04-02] MEDS: CLINDAMYCIN 900 MG in DEXTROSE 5% IN WATER 50 ML IVPB SCH ×8 (04:40→21:05)
[2022-04-02 07:10] LABS: ALT 10 U/L (4-49); AST 22 U/L (17-59); African American GFR (CKD) 42 (>60 ml/min/1.73 sqM); Albumin 2.2 g/dL (3.5-5.0); Albumin/Globulin Ratio 1.2; Alkaline Phosphatase 59 U/L (38-126); Anion Gap 7 mmol/L; Blood Urea Nitrogen 36 mg/dL (9-20); Calcium 6.6 mg/dL (8.4-10.2); Carbon Dioxide 22 mmol/L (22-30); Chloride 107 mmol/L (98-107); Globulin 1.9 g/dL; Glucose 114 mg/dL (74-99); Non-African American GFR(CKD) 37 (>60 ml/min/1.73 sqM); Potassium 3.9 mmol/L (3.5-5.1); Sodium 136 mmol/L (137-145); Total Bilirubin <0.1 mg/dL (0.2-1.3); Total Protein 4.1 g/dL (6.3-8.2)
[2022-04-02] MEDS: MULTIVITAMINS, THERA 1 EACH TAB PO SCH (08:31)
[2022-04-02] MEDS: FLUCONAZOLE 100 MG TAB PO SCH (08:31)
[2022-04-02] MEDS: ACYCLOVIR 200 MG CAP PO SCH ×2 (08:31→21:05)
[2022-04-02] MEDS: CALCIUM CARB-VIT D 500 MG-5 MCG TAB PO SCH (08:31)
[2022-04-02] MEDS: APIXABAN 5 MG TAB PO SCH ×2 (08:31→21:05)
[2022-04-02] MEDS: ASPIRIN 81 MG PO SCH (08:31)
[2022-04-02] MEDS: GABAPENTIN 300 MG CAP PO SCH ×3 (08:31→21:05)
[2022-04-02] MEDS: PANTOPRAZOLE 40 MG/10 ML VIAL IVP SCH (08:31)
--- NOTE | 2022-04-02 12:27 | P.PN ---
Subjective Progress Note Date: 04/02/22 Principal diagnosis: LLE Abscess Discussed with Dr. Hill who did see patient yesterday. Overall patients pain is somewhat improved, although with movement he is struggling. Objective - Vital Signs Vital signs: Vital Signs Temp 97.4 F L 04/02/22 05:00 Pulse 62 04/02/22 05:00 Resp 16 04/02/22 05:00 BP 145/87 04/02/22 05:00 Pulse Ox 97 04/02/22 05:00 FiO2 Intake & Output 04/01/22 04/02/22 04/02/22 18:59 06:59 18:59 Intake Total 1350 Balance 1350 Intake: Intake, IV Titration 1350 Amount Clindamycin 900 mg In 50 Dextrose 5% in Water 50 ml @ 50 mls/hr IVPB Q6H [facility] Rx#:[id number] Sodium Chloride 0.9% 1, 1200 000 ml @ 100 mls/hr IV . Q10H [facility] Rx#:[id number] ceFAZolin 2 gm In Sodium 100 Chloride 0.9% 50 ml @ 100 mls/hr IVPB Q8HR [facility] Rx# :[id number] Other: # Voids 2 - Exam - Constitutional General appearance: no acute distress - EENT Eyes: EOMI, PERRLA ENT: hearing grossly normal, normal oropharynx - Neck Neck: no lymphadenopathy Thyroid: bilateral: normal size - Respiratory Respiratory: bilateral: CTA - Cardiovascular Rhythm: regular Heart sounds: normal: S1, S2 - Gastrointestinal General gastrointestinal: normal bowel sounds, soft - Integumentary left lower extremity swelling below knee, with patchy diffuse erythema. One lesion medially, but we between knee and ankle, in 2-3 other lesions posteriorly, slightly raised, hyperpigmented, slightly puffy. Significant tenderness on palpation in these areas Integumentary: calor, cellulitis - Neurologic Neurologic: CNII-XII intact, focal deficits (questionable lower extremity mild weakness) - Musculoskeletal Musculoskeletal: generalized weakness, strength equal bilaterally - Labs CBC & Chem 7: 04/01/22 06:01 04/02/22 05:36 Labs: Abnormal Lab Results - Last 24 Hours (Table) 03/30/22 04/02/22 Range/Units 05:40 05:36 Sodium 136 L (137-145) mmol/L BUN 36 H (9-20) mg/dL Creatinine 1.86 H (0.66-1.25) mg/dL Glucose 114 H (74-99) mg/dL Calcium 6.6 L (8.4-10.2) mg/dL Total Bilirubin <0.1 L (0.2-1.3) mg/dL Total Protein 4.1 L (6.3-8.2) g/dL Albumin 2.2 L (3.5-5.0) g/dL Albumin (PEP) 2.67 L (3.80-4.90) g/dL Bhdhq-1-Xetsdtcrh 0.53 H (0.10-0.40) g/dL Yaygm-9-Zmedristu 1.14 H (0.60-1.00) g/dL Gamma Globulins 0.28 L (0.70-1.50) g/dL Microbiology - Last 24 Hours (Table) 03/30/22 05:40 Blood Culture - Preliminary Blood No Growth after 72 hours Assessment and Plan Plan: Comments: X ray tib/fib reviewed Assessment and Plan (1) Left leg cellulitis Narrative/Plan: the patient had improved at the time of his recent discharge. However, there has been worsening with increased swelling, and pain, despite continuing oral antibiotics. On examination there appeared to be focal areas of markedly incr eased tenderness. Given the patient's significantly immunocompromise state, CT of the lower extremity. We'll be ordered to check for deeper soft tissue infection including necrotizing fasciitis. I'll also repeat Dopplers Current Visit: Yes Status: Acute Code(s): L03.116 - CELLULITIS OF LEFT LOWER LIMB SNOMED Code(s): 509942250 (2) Intractable back pain Narrative/Plan: the patient reports increase in back pain, and possibly some lower extremity weakness. MRI of the thoracic and lumbar spine will be ordered, and the patient started on Decadron. This can be discontinued if there is no evidence of cord compression. Current Visit: Yes Status: Acute Code(s): M54.9 - DORSALGIA, UNSPECIFIED SNOMED Code(s): 924169085 (3) Multiple myeloma Narrative/Plan: the patient has recently been started on a new regimen. This is currently on hold. This can be resumed, once acute condition resolves in a satisfactory manner. Current Visit: No Status: Chronic Priority: Medium Code(s): C90.00 - M ULTIPLE MYELOMA NOT HAVING ACHIEVED REMISSION SNOMED Code(s): 446981089 PLAN: - Await Recommendations from Radiation Oncology, Spoke with Dr. hill who confirmed he did see patient yesterday, confirms no cord compression and dex stopped. Difficult to determine if further radiation would be beneficial and given that he recently completely pallaiitive radiation to low T spine a couple weeks ago this may not haave had time to take full effect. Overall his comfort l evel has improved. - D/C Dex
[2022-04-02 12:44] LABS: HGB 8.4 g/dL (13.0-17.0); MCH 28.9 pg (27.0-32.0); MCHC 31.1 g/dL (32.0-37.0); MCV 92.8 fL (80.0-97.0); NRBC Per 100 WBC 0.7 /100 WBCS (0.0-0.0); Platelet Count 85 X 10*3/uL (140-440); RBC 2.91 X 10*6/uL (4.40-5.60); RDW 20.2 % (11.5-14.5); WBC 4.18 X 10*3/uL (4.50-10.00)
--- NOTE | 2022-04-02 14:09 | P.PN ---
Subjective Progress Note Date: 04/02/22 Hospital course: Patient is a 66-year-old male with a past medical history of CAD, hyperlipidemia, history of pulmonary emboli on anticoagulation with Eliquis, and multiple myeloma currently undergoing chemotherapy receiving last dose 03/24/22. He presented to the emergency department for evaluation of left lower extremity wound/cellulitis. Patient recently underwent hospitalization for left lower extremity cellulitis after failing outpatient antibiotic course 5 days and experiencing worsening left lower extremity pain and swelling patient underwent three-day hospitalization receiving vancomycin and cefepime and was discharged home on 03/27/22 with oral clindamycin for an additional 6 days. Patient returned to the emergency department today secondary to continued left lower extremity pain and swelling despite taking antibiotic as directed. Patient reports pain has been so severe he is unable to put any pressure on his left leg and because of this it is now accompanied by uncontrolled cancer pain in his back. Patient denies having any recent fevers, chills, diaphoresis, chest pain, palpitations, shortness of breath or experiencing any numbness/tingling in his extremities. Patient underwent full evaluation in the emergency department. CBC revealing normocytic normochromic anemia with hemoglobin of 12.5 and thrombocytopenia with platelet count of 107. BMP revea ling a sodium of 130 and an acute kidney injury with BUN 38, creatinine 2.06 and GFR of 32 with baseline creatinine of 1.4. Liver profile unremarkable. Troponin -0.022. Urinalysis positive for protein and negative for blood or infection. CRP elevated 9.0. Covid 19 PCR, influenza A and influenza B were all negative. Patient has been admitted under our services with consultation to infectious disease and oncology. CT left lower extremity was completed concerning for necrotizing fasciitis. Page sent to orthopedic surgeon, Dr. Galvan whom evaluated CT as well as patient had bedside. Clinically there is doubt that current infection of cellulitis is secondary to necrotizing fasciitis as patient is already showing improvement with IV antibiotics. Interval history Patient was seen and fully evaluated at bedside this morning. Left lower extremity cellulitis continues to show significant improvement with current IV antibiotic regimen. Erythema and edema significantly improved. Patient's condition stable. Physical exam: Vital signs reviewed and stable. General: Nontoxic, no distress and appears stated age. Derm: Skin warm and dry, normal coloration for ethnicity. Head: Atraumatic, normocephalic and symmetric. Eyes: EOMs intact, no lid lag, and anicteric sclera Mouth: no lip lesions, mucus membranes moist Cardiovascular: regular rate and rhythm with normal S1S2, no murmur, positive posterior tibial pulses bilaterally, and cap refill < 2 seconds. Lungs: Respirations even, regular, and unlabored on room air. Lungs CTA bilaterally, no rhonchi, no rales, no wheezing, and no accessory muscle usage. Abdominal: soft, nontender to palpation, no guarding, no appreciable organomegaly Ext: ROM intact. No gross muscle atrophy, left lower extremity 2+ pitting edema, right lower extremity 1+ no contractures. Left lower extremity with edema (2+ pitting), 2 small areas of erythema siginificantly improving Neuro: Speech clear, face symmetrical and CN II-XII grossly intact with no noted focal neuro deficits Psych: Alert and oriented to person, place, time, and situation. Appropriate and pleasant affect. Assessment and Plan of Care: Left lower extremity cellulitis, failed outpatient treatment 2 rounds currently undergoing chemotherapy. -Infectious disease consulted. -X-ray tib/fib: Negative for acute process -CT of Left lower extremity reported concerns of necrotizing fasciitis -Orthopedic surgeon consulted, she reported that she reviewed CT films personally as well as evaluated patient at bedside and currently doubtful that patient's cellulitis is necrotizing fasciitis. -Left lower extremity venous Doppler was negative for DVT. -Blood cultures negative to date -Continue with IV antibiotics: Cefazolin and clindamycin -Symptomatic care and pain management -Fall precautions -ESR 60 and CRP 14.2. Acute kidney injury Chronic kidney stage III -Consult nephrology -Improved with gentle IV hydration. -Continue to hold nephrotoxic medications including furosemide. -Continued close monitoring with repeat a.m. labs. Hyponatremia, improving with gentle IV fluid hydration. Multiple myeloma currently undergoing chemotherapy with last treatment 03/24/22 Pancytopenia secondary to above -CBC stable with the RBC count of 4.68, hemoglobin 8.8, and platelet count of 74. -Oncology consulted History of Pulmonary emboli -Continue anticoagulation with Eliquis. CODE STATUS: Full code DVT prophylaxis: Eliquis Discussed with: Patient and RN Anticipated discharge date: Likely tomorrow Anticipated discharge place: Home A total of 35 minutes was spent on the care of this complex patient more than 50% of the time was spent in counseling and care coordination. I reviewed the documentation as provided by the [place] above, who is the original author of this note. I agree with the documented assessment and plan, with the following changes: none Objective - Vital Signs Vital signs: Vital Signs Temp 98.4 F 04/02/22 11:16 Pulse 61 04/02/22 11:16 Resp 18 04/02/22 11:16 BP 157/91 04/02/22 11:16 Pulse Ox 97 04/02/22 11:16 FiO2 Intake & Output 04/01/22 04/02/22 04/02/22 18:59 06:59 18:59 Intake Total 1350 Balance 1350 Intake: Intake, IV Titration 1350 Amount Clindamycin 900 mg In 50 Dextrose 5% in Water 50 ml @ 50 mls/hr IVPB Q6H [facility] Rx#:[id number] Sodium Chloride 0.9% 1, 1200 000 ml @ 100 mls/hr IV . Q10H [facility] Rx#:[id number] ceFAZolin 2 gm In Sodium 100 Chloride 0.9% 50 ml @ 100 mls/hr IVPB Q8HR [facility] Rx# :[id number] Other: # Voids 2 - Labs CBC & Chem 7: 04/02/22 05:36 04/02/22 05:36 Labs: Abnormal Lab Results - Last 24 Hours (Table) 04/02/22 04/02/22 Range/Units 05:36 05:36 WBC 4.18 L (4.50-10.00) X 10*3/uL RBC 2.91 L (4.40-5.60) X 10*6/uL Hgb 8.4 L (13.0-17.0) g/dL Hct 27.0 L (39.6-50.0) % MCHC 31.1 L (32.0-37.0) g/dL RDW 20.2 H (11.5-14.5) % Plt Count 85 L (140-440) X 10*3/uL Absolute Nucleated RBC 0.03 H (0.00-0.00) X 10*3/uL NRBC/100 WBC Diff 0.7 H (0.0-0.0) /100 WBCS Sodium 136 L (137-145) mmol/L BUN 36 H (9-20) mg/dL Creatinine 1.86 H (0.66-1.25) mg/dL Glucose 114 H (74-99) mg/dL Calcium 6.6 L (8.4-10.2) mg/dL Total Bilirubin <0.1 L (0.2-1.3) mg/dL Total Protein 4.1 L (6.3-8.2) g/dL Albumin 2.2 L (3.5-5.0) g/dL Microbiology - Last 24 Hours (Table) 03/30/22 05:40 Blood Culture - Preliminary Blood No Growth after 72 hours
--- NOTE | 2022-04-02 15:16 | US ---
EXAMINATION TYPE: US kidneys/renal and bladder DATE OF EXAM: 04/02/2022 COMPARISON: US dated 01/20/[address] & [address] 2021 CLINICAL HISTORY: [place]. Exam done portable EXAM MEASUREMENTS: Right Kidney: 10.0 x 4.5 x 4.6 cm Left Kidney: 9.1 x 4.5 x 4.5 cm Right Kidney: wnl Left Kidney: inferior pole obscured by overlying bowel gas Bladder: wnl Bilateral Jets seen: no There is no evidence for hydronephrosis at this point in time. Corticomedullary differentiation is ma intained. No nephrolithiasis is seen. No masses are identified. The urinary bladder is anechoic. IMPRESSION: Findings are similar to prior exam. There are some limitations.
[2022-04-02] MEDS ORDERED: TERBINAFINE 1% CREAM 15 GM TUBE TOPICAL SCH (17:30)
[2022-04-02] MEDS: TERBINAFINE 1% CREAM 15 GM TUBE TOPICAL SCH (18:05)
[2022-04-02] MEDS: HYDROmorphone 1 MG/ML 1 ML SYRINGE IVP PRN (23:11)
[2022-04-03] MEDS: DEXAMETHASONE SOD PHOSPHATE 4 MG/ML 1 ML VIAL IVP SCH ×2 (03:41→12:30)
[2022-04-03] MEDS: CLINDAMYCIN 900 MG in DEXTROSE 5% IN WATER 50 ML IVPB SCH ×4 (03:41→12:31)
[2022-04-03] MEDS: ASPIRIN 81 MG PO SCH (08:20)
[2022-04-03] MEDS: ACYCLOVIR 200 MG CAP PO SCH (08:20)
[2022-04-03] MEDS: MULTIVITAMINS, THERA 1 EACH TAB PO SCH (08:20)
[2022-04-03] MEDS: APIXABAN 5 MG TAB PO SCH (08:20)
[2022-04-03] MEDS: CALCIUM CARB-VIT D 500 MG-5 MCG TAB PO SCH (08:20)
[2022-04-03] MEDS: GABAPENTIN 300 MG CAP PO SCH (08:20)
[2022-04-03] MEDS: SODIUM CHLORIDE 0.9% 1,000 ML IV SCH (08:21)
[2022-04-03] MEDS: HYDROmorphone 1 MG/ML 1 ML SYRINGE IVP PRN ×2 (08:21→12:44)
--- NOTE | 2022-04-03 08:22 | P.PN ---
Subjective Progress Note Date: 04/01/22 Principal diagnosis: Left lower extremity cellulitis Patient is a 67-year-old male recently admitted and treated for cellulitis was subsequently readmitted to the hospital with worsening swelling and redness has been diagnosed with left leg cellulitis failing outpatient oral antibiotics patient did have a CT of the leg suspicious for possible necrotizing infection. On today's evaluation that is 04/02/2022, the patient remains to be afebrile, patient is breathing comfortably on room air, the patient pain to left leg has decreased denies having any open wound or any drainage, the patient denies any chest pain or shortness of breath or cough no abdominal pain or diarrhea Objective - Vital Signs Vital signs: Vital Signs Temp 98.0 F 04/01/22 05:00 Pulse 56 L 04/01/22 05:00 Resp 16 04/01/22 05:00 BP 147/84 04/01/22 05:00 Pulse Ox 97 04/01/22 05:00 FiO2 Intake & Output 03/31/22 04/01/22 04/01/22 18:59 06:59 18:59 Intake Total 200 1070 Output Total 300 Balance 200 770 Intake: Intake, IV Titration 200 Amount Clindamycin 900 mg In 100 Dextrose 5% in Water 50 ml @ 50 mls/hr IVPB Q6H [facility] Rx#:[id number] ceFAZolin 2 gm In Sodium 100 Chloride 0.9% 50 ml @ 100 mls/hr IVPB Q8HR [facility] Rx# :[id number] Oral 1070 Output: Urine 300 Other: Voiding Method Urinal - Exam GENERAL DESCRIPTION: An elderly male lying in bed in no distress RESPIRATORY SYSTEM: Unlabored breathing , decreased breath sounds at bases HEART: S1 S2 regular rate and rhythm , ABDOMEN: Soft , no tenderness EXTREMITIES: Left leg swelling and redness has decreased no tenderness or drainage - Labs CBC & Chem 7: 04/02/22 05:36 04/02/22 05:36 Labs: Abnormal Lab Results - Last 24 Hours (Table) 03/31/22 03/31/22 04/01/22 Range/Units 05:44 15:15 06:01 WBC 3.65 L (4.50-10.00) X 10*3/uL RBC 2.80 L 3.04 L (4.40-5.60) X 10*6/uL Hgb 8.3 L 9.4 L D (13.0-17.0) g/dL Hct 26.2 L 29.4 L (39.6-50.0) % MCHC 31.7 L (32.0-37.0) g/dL RDW 20.1 H 19.8 H (11.5-14.5) % Plt Count 70 L 84 L (140-440) X 10*3/uL MPV 13.8 H (9.5-12.2) fL Absolute Nucleated RBC 0.02 H (0.00-0.00) X 10*3/uL Immature Gran # 0.09 H (0.00-0.04) X 10*3/uL Lymphocytes # 0.03 L (0.90-5.00) X 10*3/uL Monocytes # 0.05 L (0.20-1.00) X 10*3/uL Eosinophils # 0 L (0.04-0.35) X 10*3/uL NRBC/100 WBC Diff 0.5 H (0.0-0.0) /100 WBCS Immature Plt Fraction 12.4 H (1.1-6.1) % Sodium 135 L (137-145) mmol/L BUN 38 H (9-20) mg/dL Creatinine 1.80 H (0.66-1.25) mg/dL Glucose 122 H (74-99) mg/dL Calcium 6.8 L (8.4-10.2) mg/dL Total Protein 4.2 L (6.3-8.2) g/dL Albumin 2.2 L (3.5-5.0) g/dL Microbiology - Last 24 Hours (Table) 03/30/22 05:40 Blood Culture - Preliminary Blood No Growth after 48 hours Assessment and Plan (1) Left leg cellulitis Current Visit: Yes Status: Acute Priority: Medium Code(s): L03.116 - CELLULITIS OF LEFT LOWER LIMB SNOMED Code(s): 777971606 Plan: 1patient presented to hospital with left lower extremity pain swelling redness in this patient who was recently treated at this facility and discharged about 3 days ago on oral clindamycin presenting with worsening pain and swelling and concern for left lower extremity cellulitis and concern for possible necrotizing infection however the patient clinically not behaving as such with no fever no white count and no significant tenderness on local examination. 2 patient has had clinical improvement and will continue cefazolin 2 g every 8 hours and clindamycin and monitor clinical course closely Time with Patient: Less than 30
--- NOTE | 2022-04-03 08:23 | P.PN ---
Subjective Progress Note Date: 04/02/22 Principal diagnosis: Left lower extremity cellulitis Patient is a 67-year-old male recently admitted and treated for cellulitis was subsequently readmitted to the hospital with worsening swelling and redness has been diagnosed with left leg cellulitis failing outpatient oral antibiotics patient did have a CT of the leg suspicious for possible necrotizing infection. On today's evaluation that is 04/02/2022, the patient continues to be afebrile, patient is breathing comfortably on room air, the patient denies pain to left leg, the patient denies any chest pain or shortness of breath or cough no abdominal pain or diarrhea Objective - Vital Signs Vital signs: Vital Signs Temp 97.4 F L 04/02/22 05:00 Pulse 62 04/02/22 05:00 Resp 16 04/02/22 05:00 BP 145/87 04/02/22 05:00 Pulse Ox 97 04/02/22 05:00 FiO2 Intake & Output 04/01/22 04/02/22 04/02/22 18:59 06:59 18:59 Intake Total 1350 Balance 1350 Intake: Intake, IV Titration 1350 Amount Clindamycin 900 mg In 50 Dextrose 5% in Water 50 ml @ 50 mls/hr IVPB Q6H [facility] Rx#:[id number] Sodium Chloride 0.9% 1, 1200 000 ml @ 100 mls/hr IV . Q10H [facility] Rx#:[id number] ceFAZolin 2 gm In Sodium 100 Chloride 0.9% 50 ml @ 100 mls/hr IVPB Q8HR [facility] Rx# :[id number] Other: # Voids 2 - Exam GENERAL DESCRIPTION: An elderly male lying in bed in no distress RESPIRATORY SYSTEM: Unlabored breathing , decreased breath sounds at bases HEART: S1 S2 regular rate and rhythm , ABDOMEN: Soft , no tenderness EXTREMITIES: Left leg swelling and redness has significantly improved - Labs CBC & Chem 7: 04/02/22 05:36 04/02/22 05:36 Labs: Abnormal Lab Results - Last 24 Hours (Table) 03/30/22 04/02/22 Range/Units 05:40 05:36 Sodium 136 L (137-145) mmol/L BUN 36 H (9-20) mg/dL Creatinine 1.86 H (0.66-1.25) mg/dL Glucose 114 H (74-99) mg/dL Calcium 6.6 L (8.4-10.2) mg/dL Total Bilirubin <0.1 L (0.2-1.3) mg/dL Total Protein 4.1 L (6.3-8.2) g/dL Albumin 2.2 L (3.5-5.0) g/dL Albumin (PEP) 2.67 L (3.80-4.90) g/dL Uxgfs-5-Fapgyybjq 0.53 H (0.10-0.40) g/dL Mhbrn-8-Apxbacrmb 1.14 H (0.60-1.00) g/dL Gamma Globulins 0.28 L (0.70-1.50) g/dL Microbiology - Last 24 Hours (Table) 03/30/22 05:40 Blood Culture - Preliminary Blood No Growth after 72 hours Assessment and Plan (1) Left leg cellulitis Current Visit: Yes Status: Acute Priority: Medium Code(s): L03.116 - CELLULITIS OF LEFT LOWER LIMB SNOMED Code(s): 782634811 Plan: 1patient presented to hospital with left lower extremity pain swelling redness in this patient who was recently treated at this facility and discharged about 3 days ago on oral clindamycin presenting with worsening pain and swelling and concern for left lower extremity cellulitis and concern for possible necrotizing infection however the patient clinically not behaving as such with no fever no white count and no significant tenderness on local examination. 2 patient has shown clinical improvement on cefazolin 2 g every 8 hours and clindamycin which will be continued for another 24 hour before transitioning to oral antibiotic Time with Patient: Less than 30
[2022-04-03] MEDS: FLUCONAZOLE 100 MG TAB PO SCH (08:44)
[2022-04-03 09:42] LABS: Magnesium 1.8 mg/dL (1.5-2.4)
[2022-04-03 09:49] LABS: ALT 8 U/L (10-49); AST 18 U/L (14-35); African American GFR (CKD) 38.6 (60.0-200.0); Albumin 2.5 g/dL (3.8-4.9); Albumin/Globulin Ratio 1.67 (1.60-3.17); Alkaline Phosphatase 54 U/L (41-126); Blood Urea Nitrogen 30.2 mg/dL (9.0-27.0); Calcium 6.7 mg/dL (8.7-10.3); Chloride 106 mmol/L (96-109); Globulin 1.5 g/dL (1.6-3.3); Glucose 85 mg/dL (70-110); Non-African American GFR(CKD) 33.3 (60.0-200.0); Sodium 140 mmol/L (135-145); Total Bilirubin <0.15 mg/dL (0.30-1.20)
[2022-04-03 10:25] LABS: Basophils # (A) 0 X 10*3/uL (0.00-0.10); Basophils % (A) 0 %; Eosinophils # (A) 0 X 10*3/uL (0.04-0.35); Eosinophils % (A) 0 %; HGB 8.6 g/dL (13.0-17.0); Immature Grans, Automated 0.8 %; Lymphocytes # (A) 0.05 X 10*3/uL (0.90-5.00); Lymphocytes % (A) 0.7 %; MCH 29.5 pg (27.0-32.0); MCHC 31.9 g/dL (32.0-37.0); MCV 92.5 fL (80.0-97.0); Mean Platelet Volume 12.2 fL (9.5-12.2); Monocytes # (A) 0.28 X 10*3/uL (0.20-1.00); Monocytes % (A) 3.9 %; NRBC Per 100 WBC 0.8 /100 WBCS (0.0-0.0); Neutrophils # (A) 6.73 X 10*3/uL (1.80-7.70); Neutrophils % (A) 94.6 %; Platelet Count 72 X 10*3/uL (140-440); RBC 2.92 X 10*6/uL (4.40-5.60); RDW 20.7 % (11.5-14.5); WBC 7.12 X 10*3/uL (4.50-10.00)
[2022-04-03 10:26] LABS: Acanthocytes 2+; Immature Platelet Fraction 12.9 % (1.1-6.1)
[2022-04-03] MEDS: PANTOPRAZOLE 40 MG/10 ML VIAL IVP SCH (11:08)
[2022-04-03] MEDS: TERBINAFINE 1% CREAM 15 GM TUBE TOPICAL SCH (11:08)
[2022-04-03 12:10] VITALS: BP 132/83; PULSE 89; RESP 14; TEMP 98.7
--- NOTE | 2022-04-03 12:24 | P.PN ---
Subjective Progress Note Date: 04/03/22 Principal diagnosis: LLE Abscess Overall feeling a bit better. Renal function has worsened slowly since hospitalization. Objective - Vital Signs Vital signs: Vital Signs Temp 98.7 F 04/03/22 12:09 Pulse 89 04/03/22 12:09 Resp 14 04/03/22 12:09 BP 132/83 04/03/22 12:09 Pulse Ox 96 04/03/22 12:09 FiO2 Intake & Output 04/02/22 04/03/22 04/03/22 18:59 06:59 18:59 Intake Total 1100 2830 Balance 1100 2830 Intake: Intake, IV Titration 1100 1250 Amount Clindamycin 900 mg In 100 100 Dextrose 5% in Water 50 ml @ 50 mls/hr IVPB Q6H [facility] Rx#:[id number] Sodium Chloride 0.9% 1, 900 1100 000 ml @ 100 mls/hr IV . Q10H [facility] Rx#:[id number] ceFAZolin 2 gm In Sodium 100 50 Chloride 0.9% 50 ml @ 100 mls/hr IVPB Q8HR [facility] Rx# :[id number] Oral 1580 Other: Voiding Method Urinal Urinal # Voids 1 - Exam - Constitutional General appearance: no acute distress - EENT Eyes: EOMI, PERRLA ENT: hearing grossly normal, normal oropharynx - Neck Neck: no lymphadenopathy Thyroid: bilateral: normal size - Respiratory Respiratory: bilateral: CTA - Cardiovascular Rhythm: regular Heart sounds: normal: S1, S2 - Gastrointestinal General gastrointestinal: normal bowel sounds, soft - Integumentary left lower extremity swelling below knee, with patchy diffuse erythema. One lesion medially, but we between knee and ankle, in 2-3 other lesions posteriorly, slightly raised, hyperpigmented, slightly puffy. Significant tenderness on palpation in these areas Integumentary: calor, cellulitis - Neurologic Neurologic: CNII-XII intact, focal deficits (questionable lower extremity mild weakness) - Musculoskeletal Musculoskeletal: generalized weakness, strength equal bilaterally - Labs CBC & Chem 7: 04/03/22 06:00 04/03/22 06:00 Labs: Abnormal Lab Results - Last 24 Hours (Table) 04/02/22 04/03/22 04/03/22 Range/Units 05:36 06:00 06:00 WBC 4.18 L (4.50-10.00) X 10*3/uL RBC 2.91 L 2.92 L (4.40-5.60) X 10*6/uL Hgb 8.4 L 8.6 L (13.0-17.0) g/dL Hct 27.0 L 27.0 L (39.6-50.0) % MCHC 31.1 L 31.9 L (32.0-37.0) g/dL RDW 20.2 H 20.7 H (11.5-14.5) % Plt Count 85 L 72 L (140-440) X 10*3/uL Plt Count Comment DECREASED A Absolute Nucleated RBC 0.03 H 0.06 H (0.00-0.00) X 10*3/uL Immature Gran # 0.06 H (0.00-0.04) X 10*3/uL Lymphocytes # 0.05 L (0.90-5.00) X 10*3/uL Eosinophils # 0 L (0.04-0.35) X 10*3/uL NRBC/100 WBC Diff 0.7 H 0.8 H (0.0-0.0) /100 WBCS Immature Plt Fraction 12.9 H (1.1-6.1) % BUN 30.2 H (9.0-27.0) mg/dL Creatinine 2.0 H (0.6-1.5) mg/dL Est GFR (CKD-EPI)AfAm 38.6 L (60.0-200.0) Est GFR (CKD-EPI)NonAf 33.3 L (60.0-200.0) Calcium 6.7 L (8.7-10.3) mg/dL Total Bilirubin <0.15 L (0.30-1.20) mg/dL ALT 8 L (10-49) U/L Total Protein 4.0 L (6.2-8.2) g/dL Albumin 2.5 L (3.8-4.9) g/dL Globulin 1.5 L (1.6-3.3) g/dL Microbiology - Last 24 Hours (Table) 03/30/22 05:40 Blood Culture - Preliminary Blood No Growth after 96 hours Assessment and Plan Plan: Comments: X ray tib/fib reviewed Assessment and Plan (1) Left leg cellulitis Narrative/Plan: the patient had improved at the time of his recent discharge. However, there has been worsening with increased swelling, and pain, despite continuing oral antibiotics. On examination there appeared to be focal areas of markedly increased tenderness. Given the patient's significantly immunocompromise state, CT of the lower extremity. We'll be ordered to check for deeper soft tissue infection including necrotizing fasciitis. I'll also repeat Dopplers Current Visit: Yes Status: Acute Code(s): L03.116 - CELLULITIS OF LEFT LOWER LIMB SNOMED Code(s): 231702194 (2) Intractable back pain Narrative/Plan: Work-up for Cord compression neg and dex discontinued Current Visit: Yes Status: Acute Code(s): M54.9 - DORSALGIA, UNSPECIFIED SNOMED Code(s): 726227074 (3) Multiple myeloma Narrative/Plan: the patient has recently been started on a new regimen. This is currently on hold. This can be resumed, once acute condition resolves in a satisfactory manner. Current Visit: No Status: Chronic Priority: Medium Code(s): C90.00 - MULTIPLE MYELOMA NOT HAVING ACHIEVED REMISSION SNOMED Code(s): 472372695 PLAN: -Monitor renal function - COntinue supportive care and PT/OT Dr. Dave: I have completed the full history and physical and adeveloped the above impression and plan, agree with dictation, dictated as a scribe
--- NOTE | 2022-04-03 12:33 | P.DS ---
Providers Date of admission: 03/30/22 14:06 Expected date of discharge: 04/03/22 Attending physician: Day Choudhury MD Consults: 03/30/22 05:04 Consult Physician Routine Consulting Provider: Shawn Browning Consult Reason/Comments: known Do you want consulting provider notified?: Yes Consult Physician Routine Consulting Provider: Francois Miranda Consult Reason/Comments: cellulitis Do you want consulting provider notified?: Yes 03/30/22 14:55 Consult Physician Stat Consulting Provider: Maria Luz Valencia Consult Reason/Comments: Necrotizing fascitis Do you want consulting provider notified?: Already Contacted 04/01/22 09:36 Consult Physician Routine Consulting Provider: Gagan Hill Consult Reason/Comments: lytic lesions T/L spine, increased pain Do you want consulting provider notified?: Yes 04/02/22 11:15 Consult Physician Routine Consulting Provider: Sienna Aguilar Consult Reason/Comments: DUNCAN Do you want consulting provider notified?: Yes [facility] Course: Hospital course: Patient is a 66-year-old male with a past medical history of CAD, hyperlipidemia, history of pulmonary emboli on anticoagulation with Eliquis, and multiple myeloma currently undergoing chemotherapy receiving last dose 03/24/22. He presented to the emergency department for evaluation of left lower extremity wound/cellulitis. Patient recently underwent hospitalization for left lower extremity cellulitis after failing outpatient antibiotic course 5 days and experiencing worsening left lower extremity pain and swelling patient underwent three-day hospitalization receiving vancomycin and cefepime and was discharged home on 03/27/22 with oral clindamycin for an additional 6 days. Patient returned to the emergency department today secondary to continued left lower extremity pain and swelling despite taking antibiotic as directed. Patient reports pain has been so severe he is unable to put any pressure on his left leg and because of this it is now accompanied by uncontrolled cancer pain in his back. Patient denies having any recent fevers, chills, diaphoresis, chest pain, palpitations, shortness of breath or experiencing any numbness/tingling in his extremities. Patient underwent full evaluation in the emergency department. CBC revealing normocytic normochromic anemia with hemoglobin of 12.5 and thrombocytopenia with platelet count of 107. BMP revealing a sodium of 130 and an acute kidney injury with BUN 38, creatinine 2.06 and GFR of 32 with baseline creatinine of 1.4. Liver profile unremarkable. Troponin -0.022. Urinalysis positive for protein and negative for blood or infection. CRP elevated 9.0. Covid 19 PCR, influenza A and influenza B were all negative. Patient has been admitted under our services with consultation to infectious disease and oncology. CT left lower extremity was completed concerning for necrotizing fasciitis. Page sent to orthopedic surgeon, Dr. Galvan whom evaluated CT as well as patient had bedside. Clinically there is doubt that current infection of cellulitis is secondary to necrotizing fasciitis as patient is already showing improvement with IV antibiotics. Detailed the problem list: Left lower extremity cellulitis, failed outpatient treatment 2 rounds currently undergoing chemotherapy. -Infectious disease cleared the patient for discharge with by mouth Keflex 500 mg every 6 hours for 10 days -X-ray tib/fib: Negative for acute process -CT of Left lower extremity reported concerns of necrotizing fasciitis -Orthopedic surgeon consulted, she reported that she reviewed CT films personally as well as evaluated patient at bedside and currently doubtful that patient's cellulitis is necrotizing fasciitis. -Left lower extremity venous Doppler was negative for DVT. -Blood cultures negative to date -Patient was initiated on IV antibiotics: Cefazolin and clindamycin -Symptomatic care and pain management -ESR 60 and CRP 14.2. 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 Hyponatremia, improving with gentle IV fluid hydration. Multiple myeloma currently undergoing chemotherapy with last treatment 03/24/22 Pancytopenia secondary to above Oncology following History of Pulmonary emboli -Continue anticoagulation with Eliquis. Tinea pedis -Resume antifungal cream Onychomycosis -Patient was advised to follow-up with dermatology as an outpatient Physical examination on discharge: Vital signs reviewed and stable. General: No acute distress. Derm: Skin warm and dry, normal coloration for ethnicity. Head: Atraumatic, normocephalic and symmetric. Eyes: EOMs intact, no lid lag, and anicteric sclera Mouth: no lip lesions, mucus membranes moist Cardiovascular: regular rate and rhythm with normal S1S2, no murmur, positive posterior tibial pulses bilaterally, and cap refill < 2 seconds. Lungs: Respirations even, regular, and unlabored on room air. Lungs CTA bilaterally, no rhonchi, no rales, no wheezing, and no accessory muscle usage. Abdominal: soft, nontender to palpation, no guarding, no appreciable organomegaly Ext: ROM intact. No gross muscle atrophy, left lower extremity 2+ pitting edema, right lower extremity 1+ no contractures. Left lower extremity with edema (2+ pitting), 2 small areas of erythema siginificantly improving Neuro: Speech clear, face symmetrical and CN II-XII grossly intact with no noted focal neuro deficits Psych: Alert and oriented to person, place, time, and situation. Appropriate and pleasant affect. Patient Condition at Discharge: Stable Plan - Discharge Summary Discharge Rx Participant: Yes New Discharge Prescriptions: New Cephalexin [Keflex] 500 mg PO Q6HR 1 Days #40 cap Continue Famotidine [Pepcid] 20 mg PO DAILY PRN PRN Reason: Heartburn Gabapentin [Neurontin] 300 mg PO TID dexAMETHasone 8 mg PO DIRECTED Acyclovir 400 mg PO BID Pomalyst 3mg 3 mg PO DIRECTED Aspirin 81 mg PO DAILY #30 chewable Apixaban [Eliquis] 5 mg PO BID Nitroglycerin Sl Tabs [Nitrostat] 0.4 mg SUBLINGUAL Q5M PRN PRN Reason: Chest Pain Potassium Chloride ER [K-Dur 20] 20 meq PO DAILY Calcium Carbonate/Vitamin D3 [Calcium 600-Vit D3 20 Mcg (800 Iu)] 1 cap PO DAILY Acetaminophen Tab [Tylenol] 650 mg PO Q6HR PRN tab PRN Reason: Mild Pain Or Fever > 100.5 Furosemide [Lasix] 20 mg PO DAILY PRN PRN Reason: Edema Multivitamins, Thera [Multivitamin (formulary)] 1 tab PO DAILY oxyCODONE HCL [oxyCODONE HCL (IR)] 10 - 20 mg PO Q4H PRN PRN Reason: Pain Terbinafine 1% Cream [LamISIL] 1 applic TOPICAL TID 90 Days #15 gm Discontinued clindamycin HCL 300 mg PO Q6H #24 capsule Carfilzomib [Kyprolis] 1 dose IV DIRECTED Fluconazole [Diflucan] 100 mg PO DAILY #14 tab Discharge Medication List Famotidine [Pepcid] 20 mg PO DAILY PRN 04/15/19 [History] Gabapentin [Neurontin] 300 mg PO TID 04/15/19 [History] dexAMETHasone 8 mg PO DIRECTED 04/15/19 [History] Acyclovir 400 mg PO BID 08/24/19 [History] Pomalyst 3mg 3 mg PO DIRECTED 08/24/19 [History] Aspirin 81 mg PO DAILY #30 chewable 08/26/19 [Rx] Apixaban [Eliquis] 5 mg PO BID 10/03/19 [History] Nitroglycerin Sl Tabs [Nitrostat] 0.4 mg SUBLINGUAL Q5M PRN 10/03/19 [History] Calcium Carbonate/Vitamin D3 [Calcium 600-Vit D3 20 Mcg (800 Iu)] 1 cap PO DAILY 01/10/20 [History] Potassium Chloride ER [K-Dur 20] 20 meq PO DAILY 01/10/20 [History] Furosemide [Lasix] 20 mg PO DAILY PRN 05/31/21 [History] Acetaminophen Tab [Tylenol] 650 mg PO Q6HR PRN tab 06/03/21 [Rx] Multivitamins, Thera [Multivitamin (formulary)] 1 tab PO DAILY 12/16/21 [History] oxyCODONE HCL [oxyCODONE HCL (IR)] 10 - 20 mg PO Q4H PRN 03/25/22 [History] Cephalexin [Keflex] 500 mg PO Q6HR 1 Days #40 cap 04/03/22 [Rx] Terbinafine 1% Cream [LamISIL] 1 applic TOPICAL TID 90 Days #15 gm 04/03/22 [Rx] Follow up Appointment(s)/Referral(s): Elkin Pierson MD [Primary Care Provider] - 1-2 days (The office will call you with an appointment time and date.) Patient Instructions/Handouts: Cephalexin (By mouth), Terbinafine (On the skin), Dehydration (DC) Activity/Diet/Wound Care/Special Instructions: Diet as tolerated Activity Limited until seen by the Dr. Discharge Disposition: HOME SELF-CARE
--- NOTE | 2022-04-03 14:23 | P.NPCON ---
History of Present Illness - Reason for Consult acute renal failure - History of Present Illness Patient is a 67-year-old male with history of multiple myeloma status post stem cell transplant in 2014. Patient had been in remission however he had recurrence of the multiple myeloma and is currently maintained on chemotherapy. He does have a spinal lesion and has had chronic back pain. Agent was recently evaluated at our office as outpatient for worsening renal function. There was concern for possible multiple myeloma affecting the kidney. 24 hour urine workup was ordered. Patient also is noted to have cellulitis of his left lower extremity. Concern for possible necrotizing fasciitis. This has progressively worsened over the last few days. Patient has been maintained on antibiotics and he states that it appears to be improved post hospitalization. Serum creatinine was 2.0 on initial admission and did go down to around 1.8 yesterday and it is back up to 2.0 today. Previous creatinine noted at 1.4 and 1.5 on 67 and 03/27/2022. Blood pressure is not low Patient denies use of any nonsteroidal anti-inflammatory agents He was maintained on low dose of Lasix at home on a when necessary basis. No nephrotoxic agents administered during this hospitalization. No obstruction noted on ultrasound. 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, gait dysfunction-uses walker, bilateral pedal/ankle edema, PE 08/2019, chronic low back pain, past vertebral fractures, minimal CAD, shingelles twice, past R heel wound, elevated lipids in the past, History of Any Multi-Drug Resistant Organisms: None Reported Past Surgical History: Heart Catheterization, Orthopedic Surgery Additional Past Surgical History / Comment(s): excision of uvular lesion(benign) 2009, colonoscopy, dave knee arthroscopy, rt rotator cuff sx, moles removed from back(benign), bone marrow aspiration/bx, stem cell transplant 2015, Past Anesthesia/Blood Transfusion Reactions: No Reported Reaction Smoking Status: Never smoker - Past Family History Father Family Medical History: Renal Disease, Vascular Disorder Additional Family Medical History / Comment(s): aaa. Father is . Mother Family Medical History: No Reported History Additional Family Medical History / Comment(s): mom is healthy Medications and Allergies Home Medications Medication Instructions Recorded Confirmed Type Famotidine [Pepcid] 20 mg PO DAILY PRN 04/15/19 03/30/22 History Gabapentin [Neurontin] 300 mg PO TID 04/15/19 03/30/22 History dexAMETHasone 8 mg PO DIRECTED 04/15/19 03/30/22 History Acyclovir 400 mg PO BID 08/24/19 03/30/22 History Pomalyst 3mg 3 mg PO DIRECTED 08/24/19 03/30/22 History Aspirin 81 mg PO DAILY #30 chewable 08/26/19 03/30/22 Rx Apixaban [Eliquis] 5 mg PO BID 10/03/19 03/30/22 History Nitroglycerin Sl Tabs [Nitrostat] 0.4 mg SUBLINGUAL Q5M PRN 10/03/19 03/30/22 History Calcium Carbonate/Vitamin D3 1 cap PO DAILY 01/10/20 03/30/22 History [Calcium 600-Vit D3 20 Mcg (800 Iu)] Potassium Chloride ER [K-Dur 20] 20 meq PO DAILY 01/10/20 03/30/22 History Furosemide [Lasix] 20 mg PO DAILY PRN 05/31/21 03/30/22 History Acetaminophen Tab [Tylenol] 650 mg PO Q6HR PRN tab 06/03/21 03/30/22 Rx Multivitamins, Thera [Multivitamin 1 tab PO DAILY 12/16/21 03/30/22 History (formulary)] oxyCODONE HCL [oxyCODONE HCL (IR)] 10 - 20 mg PO Q4H PRN 03/25/22 03/30/22 History Cephalexin [Keflex] 500 mg PO Q6HR 1 Days #40 cap 04/03/22 Rx Terbinafine 1% Cream [LamISIL] 1 applic TOPICAL TID 90 Days #15 gm 04/03/22 Rx Allergies Allergy/AdvReac Type Severity Reaction Status Date / Time sulfamethoxazole Allergy Rash/Hives Verified 03/30/22 11:35 [From Bactrim] trimethoprim [From Bactrim] Allergy Rash/Hives Verified 03/30/22 11:35 Physical Exam Vitals: Vital Signs Temp Pulse Resp BP Pulse Ox 04/03/22 12:09 98.7 F 89 14 132/83 96 04/03/22 09:04 98.2 F 70 18 150/86 04/03/22 08:40 70 18 04/03/22 04:39 97.3 F L 65 18 160/87 98 04/02/22 21:00 97.9 F 58 L 18 152/95 97 Intake and Output 04/02/22 04/03/22 04/03/22 22:59 06:59 14:59 Intake Total 1700 2230 Balance 1700 2230 Intake: Intake, IV Titration 1100 1250 Amount Clindamycin 900 mg In 100 100 Dextrose 5% in Water 50 ml @ 50 mls/hr IVPB Q6H NNAMDI Rx#:[id number] Sodium Chloride 0.9% 1, 900 1100 000 ml @ 100 mls/hr IV . Q10H NNAMDI Rx#:[id number] ceFAZolin 2 gm In Sodium 100 50 Chloride 0.9% 50 ml @ 100 mls/hr IVPB Q8HR NNAMDI Rx# :[id number] Oral 600 980 Other: Voiding Method Urinal Urinal # Voids 1 Patient is awake, comfortable, not in any acute distress Examination of the heart S1 and S2 Examination lungs bilateral breath sounds are heard Abdomen is soft nontender Examination lower extremity shows no significant edema right leg. Patient has erythema office left lower leg and edema is also noted. MANAGER FRAUD exam grossly intact Results - Lab Results Most recent lab results Calcium 6.7 mg/dL (8.7-10.3) L 04/03/22 06:00 Phosphorus 3.0 mg/dL (2.5-4.5) 03/30/22 05:40 Magnesium 1.8 mg/dL (1.5-2.4) 04/03/22 06:00 04/03/22 06:00 04/03/22 06:00 Assessment and Plan Assessment: 1. Acute kidney injury, ATN, nonoliguric. Rule out urine retention. UA is ivonne te benign with trace protein. Etiology likely underlying infection. There is concern for multiple myeloma possibly affecting the kidney. 24 hour urine for light chains was ordered as outpatient. 2. Chronic kidney disease secondary to nephrosclerosis versus myeloma kidney 3. Cellulitis left lower extremity with concern for necrotizing fasciitis maintained on IV antibiotics, failed outpatient oral antibiotics. Currently improving 4. Multiple myeloma with history of stem cell transplantation in 2014. Patient was in remission but has had relapse and was recently maintained on chemotherapy prior to admission. 5. Anemia and thrombocytopenia associated with underlying myeloma/chemotherapy, being followed by endocrinology Plan: Check bladder scan and rule out urine retention Continue IV antibiotics Continue IV fluids Avoid any other nephrotoxic agents Repeat labs in a.m. Follow-up on results of 24-hour urine done as outpatient.
== END 2022-04-03 14:54 | disposition home or self-care (01) | DRG 602 ==
LOC: EC 04:17 → 5NMEDONC 05:04 → OBSVTOIN 14:06
PROVIDERS: ADMIT Internal Medicine; ATTEND Internal Medicine
DX: L03.116 Cellulitis of left lower limb (principal); D61.810 Antineoplastic chemotherapy induced pancytopenia; N17.0 Acute kidney failure with tubular necrosis; N17.9 Acute kidney failure, unspecified; Z94.84 Stem cells transplant status; C90.00 Multiple myeloma not having achieved remission; E87.1 Hypo-osmolality and hyponatremia; E46 Unspecified protein-calorie malnutrition; T38.6X5A Adverse effect of antigonadotrophins, antiestrogens, antiandrogens, not elsewhere classified, initial encounter; B35.1 Tinea unguium; B35.3 Tinea pedis; D69.59 Other secondary thrombocytopenia; Z20.822 Contact with and (suspected) exposure to COVID-19; E78.5 Hyperlipidemia, unspecified; R53.1 Weakness; N18.30 Chronic kidney disease, stage 3 unspecified; G62.9 Polyneuropathy, unspecified; K11.20 Sialoadenitis, unspecified; Z68.29 Body mass index [BMI] 29.0-29.9, adult; I25.10 Atherosclerotic heart disease of native coronary artery without angina pectoris; G89.3 Neoplasm related pain (acute) (chronic); E86.0 Dehydration; Z87.11 Personal history of peptic ulcer disease; Z87.891 Personal history of nicotine dependence; Z79.01 Long term (current) use of anticoagulants; Z79.82 Long term (current) use of aspirin; Z79.899 Other long term (current) drug therapy; Z86.711 Personal history of pulmonary embolism; Z88.8 Allergy status to other drugs, medicaments and biological substances; Z87.81 Personal history of (healed) traumatic fracture; Z88.2 Allergy status to sulfonamides
CPT/HCPCS: 36415; 71045; 72146; 72148; 76770; 80053; 80202; 81003; 82550; 82784; 83605; 83735; 83880; 84100; 84165; 84484; 85025; 85027; 85610; 85652; 85730; 86140; 87040; 87502; 87635; 93005; 96365; 96366; 96367; 96368; 96375; 99285

== ENCOUNTER 2022-04-05 18:56 | Inpatient (IN) | payer MEDICARE, BC ==
[2022-04-05] MEDS ORDERED: ACETAMINOPHEN TAB 500 MG TAB PO STA (21:39)
[2022-04-05] MEDS ORDERED: HYDROmorphone 1 MG/ML 1 ML SYRINGE IVP STA (21:40)
[2022-04-05] MEDS ORDERED: SODIUM CHLORIDE 0.9% 1,000 ML IV STA (21:40)
--- NOTE | 2022-04-05 23:15 | XR ---
EXAMINATION TYPE: XR chest 2V DATE OF EXAM: 04/05/2022 COMPARISON: 03/30/2022 HISTORY: Cough TECHNIQUE: FINDINGS: Heart and mediastinum are normal. Lungs are clear of infiltrate. No heart failure. There ar e no hilar masses. Bony thorax is intact. IMPRESSION: No active cardiopulmonary disease. No change.
[2022-04-06 00:17] LABS: Anisocytosis Moderate; Basophils % (A) 0 %; Eosinophils # (A) 0.1 k/uL (0-0.7); Eosinophils % (A) 2 %; HCT 31.1 % (39.0-53.0); HGB 10.1 gm/dL (13.0-17.5); Hypochromasia Slight; Lymphocytes # (A) 0.1 k/uL (1.0-4.8); Lymphocytes % (A) 3 %; MCH 31.2 pg (25.0-35.0); MCHC 32.6 g/dL (31.0-37.0); MCV 95.9 fL (80.0-100.0); Macrocytosis Slight; Mean Platelet Volume 10.4; Monocytes # (A) 0.2 k/uL (0-1.0); Monocytes % (A) 4 %; Neutrophils # (A) 4.6 k/uL (1.3-7.7); Neutrophils % (A) 91 %; RBC 3.24 m/uL (4.30-5.90); RDW 20.3 % (11.5-15.5); WBC 5.1 k/uL (3.8-10.6)
[2022-04-06 00:20] LABS: Albumin 2.9 g/dL (3.5-5.0); Calcium 8.7 mg/dL (8.4-10.2); Potassium 5.2 mmol/L (3.5-5.1); Total Bilirubin 0.8 mg/dL (0.2-1.3); Total Protein 5.4 g/dL (6.3-8.2)
[2022-04-06 00:35] LABS: C Reactive Protein 20.9 mg/dL (<1.0)
[2022-04-06 00:41] LABS: Anisocytosis (M) Present; Large Platelets Present; Platelet Count 88 k/uL (150-450); Polychromasia Present
[2022-04-06 00:43] LABS: Appearance,Urine Clear (Clear); Bacteria,Urine Rare /hpf; Bilirubin,Urine Negative (Negative); Blood,Urine Trace (Negative); Color,Urine Light Yellow; Glucose,Urine (UA) Negative (Negative); Ketones,Urine Negative (Negative); Leukocyte Esterase,Urine Negative (Negative); Nitrite,Urine Negative (Negative); PH, Urine 6.5 (5.0-8.0); Protein,Urine 1+ (Negative); RBC,Urine <1 /hpf (0-5); Specific Gravity,Urine 1.007 (1.001-1.035); Urobilinogen,Urine <2.0 mg/dL (<2.0); WBC,Urine 1 /hpf (0-5)
[2022-04-06] MEDS ORDERED: CEFEPIME 2 GM in SODIUM CHLORIDE 0.9% 100 ML IVPB STA (00:55)
--- NOTE | 2022-04-06 00:55 | ED ---
General Adult HPI - General Chief complaint: Fever Stated complaint: Not feeling Well/uncontrolled pain Time Seen by Provider: 04/05/22 21:30 Source: patient Mode of arrival: wheelchair Limitations: no limitations - History of Present Illness Initial comments: 67-year-old male with past history of multiple myeloma on chemotherapy (last 03/24), hyperlipidemia, PE presents to the emergency department with general malaise. He has been recently hospitalized 2 for lower extremity infection. Patient does well on IV antibiotics. Originally was discharged home on clindamycin and failed. After this was recent hospitalization he was discharged home on Keflex. Has been taking the medications as instructed however continues to feel ill. Patient has a fever. Denies cough, abdominal pain, nausea, vomiting. Does admit that his left lower extremity wound has become more swollen and red. Area warm to the touch. Patient has chronic back pain from osseous lesions denies any weakness in his lower extremities or saddle anesthesia. No other alleviating, precipitating or modifying factors - Related Data Home Medications Medication Instructions Recorded Confirmed Famotidine [Pepcid] 20 mg PO DAILY PRN 04/15/19 04/05/22 Gabapentin [Neurontin] 300 mg PO TID 04/15/19 04/05/22 dexAMETHasone 8 mg PO DIRECTED 04/15/19 04/05/22 Acyclovir 400 mg PO BID 08/24/19 04/05/22 Pomalyst 3mg 3 mg PO DIRECTED 08/24/19 04/05/22 Apixaban [Eliquis] 5 mg PO BID 10/03/19 04/05/22 Nitroglycerin Sl Tabs [Nitrostat] 0.4 mg SUBLINGUAL Q5M PRN 10/03/19 04/05/22 Calcium Carbonate/Vitamin D3 1 cap PO DAILY 01/10/20 04/05/22 [Calcium 600-Vit D3 20 Mcg (800 Iu)] Potassium Chloride ER [K-Dur 20] 20 meq PO DAILY 01/10/20 04/05/22 Furosemide [Lasix] 20 mg PO DAILY PRN 05/31/21 04/05/22 Multivitamins, Thera [Multivitamin 1 tab PO DAILY 12/16/21 04/05/22 (formulary)] oxyCODONE HCL [oxyCODONE HCL (IR)] 10 - 20 mg PO Q4H PRN 03/25/22 04/05/22 Previous Rx's Medication Instructions Recorded Aspirin 81 mg PO DAILY #30 chewable 08/26/19 Acetaminophen Tab [Tylenol] 650 mg PO Q6HR PRN tab 06/03/21 Cephalexin [Keflex] 500 mg PO Q6HR 1 Days #40 cap 04/03/22 Terbinafine 1% Cream [LamISIL] 1 applic TOPICAL TID 90 Days #15 gm 04/03/22 Allergies Allergy/AdvReac Type Severity Reaction Status Date / Time sulfamethoxazole Allergy Rash/Hives Verified 04/05/22 21:45 [From Bactrim] trimethoprim [From Bactrim] Allergy Rash/Hives Verified 04/05/22 21:45 Review of Systems ROS Statement: Those systems with pertinent positive or pertinent negative responses have been documented in the HPI. ROS Other: All systems not noted in ROS Statement are negative. 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, gait dysfunction-uses walker, bilateral pedal/ankle edema, PE 08/2019, chronic low back pain, past vertebral fractures, minimal CAD, shingelles twice, past R heel wound, elevated lipids in the past, History of Any Multi-Drug Resistant Organisms: None Reported Past Surgical History: Heart Catheterization, Orthopedic Surgery Additional Past Surgical History / Comment(s): excision of uvular lesion(benign) 2009, colonoscopy, dave knee arthroscopy, rt rotator cuff sx, moles removed from back(benign), bone marrow aspiration/bx, stem cell transplant 2015, Past Anesthesia/Blood Transfusion Reactions: No Reported Reaction Past Psychological History: No Psychological Hx Reported Smoking Status: Never smoker Past Alcohol Use History: None Reported Past Drug Use History: None Reported - Past Family History Father Family Medical History: Renal Disease, Vascular Disorder Additional Family Medical History / Comment(s): aaa. Father is . Mother Family Medical History: No Reported History Additional Family Medical History / Comment(s): mom is healthy General Exam Limitations: no limitations General appearance: alert, in no apparent distress Head exam: Present: atraumatic, normocephalic, normal inspection Eye exam: Present: normal appearance, PERRL, EOMI. Absent: scleral icterus, conjunctival injection, periorbital swelling ENT exam: Present: normal exam, mucous membranes moist Neck exam: Present: normal inspection. Absent: tenderness, meningismus, lymphadenopathy Respiratory exam: Present: normal lung sounds bilaterally. Absent: respiratory distress, wheezes, rales, rhonchi, stridor Cardiovascular Exam: Present: regular rate, normal rhythm, normal heart sounds. Absent: systolic murmur, diastolic murmur, rubs, gallop, clicks GI/Abdominal exam: Present: soft, normal bowel sounds. Absent: distended, tenderness, guarding, rebound, rigid Extremities exam: Present: full ROM, tenderness, normal capillary refill, other (b/l le erythema with chronic wounds, right > left. warmth to lle). Absent: pedal edema, joint swelling, calf tenderness Back exam: Present: normal inspection Neurological exam: Present: alert, oriented X3, CN II-XII intact Psychiatric exam: Present: normal affect, normal mood Skin exam: Present: warm, dry, intact, normal color. Absent: rash Course Vital Signs 04/05/22 04/06/22 04/06/22 19:47 00:14 03:14 Temperature 100.8 F H 99 F Pulse Rate 113 H 99 Respiratory 20 18 19 Rate Blood Pressure 105/75 145/87 132/84 O2 Sat by Pulse 94 L 98 Oximetry 04/06/22 04/06/22 04/06/22 06:25 08:13 12:00 Temperature 98.4 F Pulse Rate 84 91 Respiratory 16 18 18 Rate Blood Pressure 148/75 170/91 178/90 O2 Sat by Pulse 98 98 Oximetry 04/06/22 04/06/22 15:00 18:43 Temperature Pulse Rate 87 89 Respiratory 18 18 Rate Blood Pressure 161/96 136/86 O2 Sat by Pulse 98 98 Oximetry Medical Decision Making - Medical Decision Making Upon arrival the patient is placed into room 8. Thorough history and physical exam is performed. Patient given Tylenol, Dilaudid. Labs are conducted. Chest x-ray performed. Patient was checked for alternative source of infection as feels as if his lower extremity wounds look improved. No additional source of infection found therefore will treat for persistent cellulitis. Patient started on Unasyn and cefepime. Recommended admission for failed outpatient treatment of lower trauma extremity for which the patient did agree to. Spoke with Dr. Devlin who agreed to admit the patient. - Lab Data Result diagrams: 04/16/22 05:26 04/16/22 05:26 Lab Results 04/05/22 04/05/22 04/05/22 Range/Units 22:00 22:00 22:00 WBC 5.1 (3.8-10.6) k/uL RBC 3.24 L (4.30-5.90) m/uL Hgb 10.1 L (13.0-17.5) gm/dL Hct 31.1 L (39.0-53.0) % MCV 95.9 (80.0-100.0) fL MCH 31.2 (25.0-35.0) pg MCHC 32.6 (31.0-37.0) g/dL RDW 20.3 H (11.5-15.5) % Plt Count 88 L (150-450) k/uL MPV 10.4 Neutrophils % 91 % Lymphocytes % 3 % Monocytes % 4 % Eosinophils % 2 % Basophils % 0 % Neutrophils # 4.6 (1.3-7.7) k/uL Lymphocytes # 0.1 L (1.0-4.8) k/uL Monocytes # 0.2 (0-1.0) k/uL Eosinophils # 0.1 (0-0.7) k/uL Basophils # 0.0 (0-0.2) k/uL Manual Slide Review Performed Large Platelets Present Polychromasia Present Hypochromasia Slight Anisocytosis Moderate Anisocytosis (manual) Present Macrocytosis Slight Sodium 133 L (137-145) mmol/L Potassium 5.2 H (3.5-5.1) mmol/L Chloride 104 (98-107) mmol/L Carbon Dioxide 25 (22-30) mmol/L Anion Gap 4 mmol/L BUN 21 H (9-20) mg/dL Creatinine 1.83 H (0.66-1.25) mg/dL Est GFR (CKD-EPI)AfAm 43 (>60 ml/min/1.73 sqM) Est GFR (CKD-EPI)NonAf 37 (>60 ml/min/1.73 sqM) Glucose 88 (74-99) mg/dL Plasma Lactic Acid Jeromy 2.0 (0.7-2.0) mmol/L Calcium 8.7 (8.4-10.2) mg/dL Total Bilirubin 0.8 (0.2-1.3) mg/dL AST 39 (17-59) U/L ALT 6 (4-49) U/L Alkaline Phosphatase 56 (38-126) U/L C-Reactive Protein 20.9 H (<1.0) mg/dL Total Protein 5.4 L (6.3-8.2) g/dL Albumin 2.9 L (3.5-5.0) g/dL Urine Color Urine Appearance (Clear) Urine pH (5.0-8.0) Ur Specific [place] (1.001-1.035) Urine Protein (Negative) Urine Glucose (UA) (Negative) Urine Ketones (Negative) Urine Blood (Negative) Urine Nitrite (Negative) Urine Bilirubin (Negative) Urine Urobilinogen (<2.0) mg/dL Ur Leukocyte Esterase (Negative) Urine RBC (0-5) /hpf Urine WBC (0-5) /hpf Urine Bacteria (None) /hpf Coronavirus (PCR) (Not Detectd) Influenza Type A RNA (Not Detectd) Influenza Type B (PCR) (Not Detectd) 04/06/22 04/06/22 04/06/22 Range/Units 00:30 00:30 00:30 WBC (3.8-10.6) k/uL RBC (4.30-5.90) m/uL Hgb (13.0-17.5) gm/dL Hct (39.0-53.0) % MCV (80.0-100.0) fL MCH (25.0-35.0) pg MCHC (31.0-37.0) g/dL RDW (11.5-15.5) % Plt Count (150-450) k/uL MPV Neutrophils % % Lymphocytes % % Monocytes % % Eosinophils % % Basophils % % Neutrophils # (1.3-7.7) k/uL Lymphocytes # (1.0-4.8) k/uL Monocytes # (0-1.0) k/uL Eosinophils # (0-0.7) k/uL Basophils # (0-0.2) k/uL Manual Slide Review Large Platelets Polychromasia Hypochromasia Anisocytosis Anisocytosis (manual) Macrocytosis Sodium (137-145) mmol/L Potassium (3.5-5.1) mmol/L Chloride (98-107) mmol/L Carbon Dioxide (22-30) mmol/L Anion Gap mmol/L BUN (9-20) mg/dL Creatinine (0.66-1.25) mg/dL Est GFR (CKD-EPI)AfAm (>60 ml/min/1.73 sqM) Est GFR (CKD-EPI)NonAf (>60 ml/min/1.73 sqM) Glucose (74-99) mg/dL Plasma Lactic Acid Jeromy (0.7-2.0) mmol/L Calcium (8.4-10.2) mg/dL Total Bilirubin (0.2-1.3) mg/dL AST (17-59) U/L ALT (4-49) U/L Alkaline Phosphatase (38-126) U/L C-Reactive Protein (<1.0) mg/dL Total Protein (6.3-8.2) g/dL Albumin (3.5-5.0) g/dL Urine Color Light Yellow Urine Appearance Clear (Clear) Urine pH 6.5 (5.0-8.0) Ur Specific [place] 1.007 (1.001-1.035) Urine Protein 1+ H (Negative) Urine Glucose (UA) Negative (Negative) Urine Ketones Negative (Negative) Urine Blood Trace H (Negative) Urine Nitrite Negative (Negative) Urine Bilirubin Negative (Negative) Urine Urobilinogen <2.0 (<2.0) mg/dL Ur Leukocyte Esterase Negative (Negative) Urine RBC <1 (0-5) /hpf Urine WBC 1 (0-5) /hpf Urine Bacteria Rare H (None) /hpf Coronavirus (PCR) Not Detected (Not Detectd) Influenza Type A RNA Not Detected (Not Detectd) Influenza Type B (PCR) Not Detected (Not Detectd) Disposition Clinical Impression: Cellulitis, Neutropenic fever, History of multiple myeloma Disposition: ADMITTED IP TO THIS HOSP Condition: Serious Is patient prescribed a controlled substance at d/c from ED?: No Time of Disposition: 00:55 Decision to Admit Reason: Admit from EC Decision Date: 04/06/22 Decision Time: 00:55
[2022-04-06] MEDS ORDERED: VANCOMYCIN IV PER PHARMACY 1 EACH MISC MISCELLANE PRN (00:56)
[2022-04-06] MEDS ORDERED: VANCOMYCIN 1,500 MG in SODIUM CHLORIDE 0.9% 250 ML IVPB STA (01:00)
[2022-04-06] MEDS ORDERED: APIXABAN 5 MG TAB PO SCH (03:00)
[2022-04-06] MEDS: HYDROmorphone 1 MG/ML 1 ML SYRINGE IVP PRN ×2 (03:03→08:16)
--- NOTE | 2022-04-06 03:11 | P.HPIM ---
History of Present Illness H&P Date: 04/06/22 The patient is a 67-year-old male with a PMH of multiple myeloma following with Dr. Mensah (currently undergoing chemotherapy), history of pulmonary embolism on , and persistent left lower extremity cellulitis with multiple failures of outpatient therapy who presents to the emergency room due to worsening left lower extremity pain, erythema, and swelling. The patient was discharged from the hospital on 04/03 with oral Keflex after a four-day hospital stay for left lower extremity cellulitis. Patient reports that roughly 24-48 hours after arrival at home, he noticed that his left leg began getting increasingly red, swollen, and painful again. He also developed fevers which prompted him to come to the emergency room. Reports that his pain in the left leg is 3 out of 10, and is similar to when he was previously admitted on 03/30. The patient had previously been prescribed oral clindamycin which it also felt. Denied experiencing chest discomfort, shortness of breath, nausea, vomiting, pain, diarrhea. Upon presentation in the ED, the patient's T-max was 100.8F with laboratory evaluation remarkable for CRP of 20.9 (previously 14.2 on 03/31). Chest x-ray was unremarkable. Review of systems: Pertinent positives and negatives as discussed in HPI, a complete review of syst ems was performed and all other systems are negative. Physical examination: General: Chronically ill-appearing male, no distress, appears at stated age, obese Derm: Left lower extremity dorsum scab with surrounding erythema extending to just below the knee, warm Head: atraumatic, normocephalic, symmetric Eyes: EOMI, no lid lag, anicteric sclera, pupils equal round reactive to light ENT: Nose and ears atraumatic Neck: No cervical lymphadenopathy, trachea midline, supple Mouth: no lip lesion, mucus membranes moist Cardiovascular: S1S2 reg, no murmur, positive dorsalis pedis pulse bilateral, 1+ right lower extremity pitting edema, 2+ left lower extremity pitting edema Lungs: CTA bilateral, no rhonchi, no rales, no accessory muscle use Abdominal: soft, nontender to palpation, no guarding Ext: muscle strength 4 out of 5 in all 4 extremities grossly, no gross muscle atrophy, no contractures, Neuro: CN II-XI grossly intact, no gross focal neuro deficits Psych: Alert, oriented, appropriate affect Assessment/plan Left lower extremity cellulitis in setting of chemotherapy for multiple myeloma with failure of outpatient oral treatment 3 -Patient previously responded to cefepime and vancomycin -Continue for now -Infectious disease and oncology consulted -Follow up blood cultures Chronic conditions: History of PE, multiple myeloma currently undergoing chemotherapy -Oncology consulted -Continue with home Eliquis dosing Pancytopenia -At baseline in setting of chemotherapy Chronic kidney disease -At baseline DVT prophylaxis -Eliquis The patient is admitted with an anticipated greater than 2 midnight stay for evaluation of LLE cellulitis CODE STATUS: Full Code Discussed with: Patient Anticipated discharge date: 2-[address]: Home 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, gait dysfunction-uses walker, bilateral pedal/ankle edema, PE 08/2019, chronic low back pain, past vertebral fractures, minimal CAD, shingelles twice, past R heel wound, elevated lipids in the past, History of Any Multi-Drug Resistant Organisms: None Reported Past Surgical History: Heart Catheterization, Orthopedic Surgery Additional Past Surgical History / Comment(s): excision of uvular lesion(benign) 2009, colonoscopy, dave knee arthroscopy, rt rotator cuff sx, moles removed from back(benign), bone marrow aspiration/bx, stem cell transplant 2015, Past Anesthesia/Blood Transfusion Reactions: No Reported Reaction Past Psychological History: No Psychological Hx Reported Smoking Status: Never smoker Past Alcohol Use History: None Reported Past Drug Use History: None Reported - Past Family History Father Family Medical History: Renal Disease, Vascular Disorder Additional Family Medical History / Comment(s): aaa. Father is . Mother Family Medical History: Hypertension Additional Family Medical History / Comment(s): mom is healthy Medications and Allergies Home Medications Medication Instructions Recorded Confirmed Type Famotidine [Pepcid] 20 mg PO DAILY PRN 04/15/19 04/05/22 History Gabapentin [Neurontin] 300 mg PO TID 04/15/19 04/05/22 History dexAMETHasone 8 mg PO DIRECTED 04/15/19 04/05/22 History Acyclovir 400 mg PO BID 08/24/19 04/05/22 History Pomalyst 3mg 3 mg PO DIRECTED 08/24/19 04/05/22 History Aspirin 81 mg PO DAILY #30 chewable 08/26/19 04/05/22 Rx Apixaban [Eliquis] 5 mg PO BID 10/03/19 04/05/22 History Nitroglycerin Sl Tabs [Nitrostat] 0.4 mg SUBLINGUAL Q5M PRN 10/03/19 04/05/22 History Calcium Carbonate/Vitamin D3 1 cap PO DAILY 01/10/20 04/05/22 History [Calcium 600-Vit D3 20 Mcg (800 Iu)] Potassium Chloride ER [K-Dur 20] 20 meq PO DAILY 01/10/20 04/05/22 History Furosemide [Lasix] 20 mg PO DAILY PRN 05/31/21 04/05/22 History Acetaminophen Tab [Tylenol] 650 mg PO Q6HR PRN tab 06/03/21 04/05/22 Rx Multivitamins, Thera [Multivitamin 1 tab PO DAILY 12/16/21 04/05/22 History (formulary)] oxyCODONE HCL [oxyCODONE HCL (IR)] 10 - 20 mg PO Q4H PRN 03/25/22 04/05/22 History Cephalexin [Keflex] 500 mg PO Q6HR 1 Days #40 cap 04/03/22 04/05/22 Rx Terbinafine 1% Cream [LamISIL] 1 applic TOPICAL TID 90 Days #15 gm 04/03/22 04/05/22 Rx Allergies Allergy/AdvReac Type Severity Reaction Status Date / Time sulfamethoxazole Allergy Rash/Hives Verified 04/05/22 21:45 [From Bactrim] trimethoprim [From Bactrim] Allergy Rash/Hives Verified 04/05/22 21:45 Physical Exam Vitals: Vital Signs Temp Pulse Resp BP Pulse Ox 04/06/22 00:14 18 145/87 04/05/22 19:47 100.8 F H 113 H 20 105/75 94 L Intake and Output 04/05/22 04/05/22 04/06/22 14:59 22:59 06:59 Other: Weight 97.522 kg Results CBC & Chem 7: 04/05/22 22:00 04/05/22 22:00 Labs: Abnormal Lab Results - Last 24 Hours (Table) 04/05/22 04/05/22 04/06/22 Range/Units 22:00 22:00 00:30 RBC 3.24 L (4.30-5.90) m/uL Hgb 10.1 L (13.0-17.5) gm/dL Hct 31.1 L (39.0-53.0) % RDW 20.3 H (11.5-15.5) % Plt Count 88 L (150-450) k/uL Lymphocytes # 0.1 L (1.0-4.8) k/uL Sodium 133 L (137-145) mmol/L Potassium 5.2 H (3.5-5.1) mmol/L BUN 21 H (9-20) mg/dL Creatinine 1.83 H (0.66-1.25) mg/dL C-Reactive Protein 20.9 H (<1.0) mg/dL Total Protein 5.4 L (6.3-8.2) g/dL Albumin 2.9 L (3.5-5.0) g/dL Urine Protein 1+ H (Negative) Urine Blood Trace H (Negative) Urine Bacteria Rare H (None) /hpf
[2022-04-06] MEDS: GABAPENTIN 300 MG CAP PO SCH ×4 (03:14→20:32)
[2022-04-06] MEDS ORDERED: ASPIRIN 81 MG PO SCH (09:00)
[2022-04-06] MEDS: ACYCLOVIR 200 MG CAP PO SCH ×2 (09:03→20:32)
[2022-04-06] MEDS: HYDROmorphone 0.5 MG/0.5 ML SYRINGE IVP PRN ×2 (15:52→20:31)
[2022-04-06] MEDS: CEFEPIME 2 GM in SODIUM CHLORIDE 0.9% 100 ML IVPB SCH (15:55)
--- NOTE | 2022-04-06 16:54 | P.PN ---
Subjective This is a 67-year-old male history of multiple myeloma, pulmonary embolism who is admitted for evaluation of left foot cellulitis. Patient was discharged from our institution 3 days ago on antibiotic therapy. However he returns due to worsening swelling and redness in the right foot and lower part of his left leg. Dorsal part of the left foot with swelling and erythema and possibly forming abscesses. Otherwise denies any fever or chills. Has some tenderness over his ankle Objective - Vital Signs Vital signs: Vital Signs Temp 98.4 F 04/06/22 06:25 Pulse 87 04/06/22 15:00 Resp 18 04/06/22 15:00 BP 161/96 04/06/22 15:00 Pulse Ox 98 04/06/22 15:00 FiO2 Intake & Output 04/05/22 04/06/22 04/06/22 18:59 06:59 18:59 Weight 97.522 kg - Exam Awake alert oriented 3, no acute distress Head and neck: Anicteric sclera, extraocular movements intact, no facial asymmetry, oropharyngeal mucosa is moist without any lesions, neck is supple without rigidity, no neck masses or neck vein distention Heart: Regular rhythm and rate, S1, S2; no murmurs rubs or gallops Lungs: Breath sounds present bilateral, no wheezing, rhonchi or crackles Abdomen: Bowel sounds present throughout, abdomen is soft, nontender, nondistended, no involuntary guarding, no hernias or organomegaly, no flank t enderness Extremities: Right lower extremity appears normal with trace edema no erythema or tenderness Left lower extremity: Left foot is swollen, mostly dorsally with circular erythema and central area with complemental fluctuation; there is some tenderness with range of motion over the left ankle, there is a 1+ edema over the [place] area with possibility of abscess forming. - Labs CBC & Chem 7: 04/05/22 22:00 04/06/22 11:14 Labs: Abnormal Lab Results - Last 24 Hours (Table) 04/05/22 04/05/22 04/06/22 Range/Units 22:00 22:00 00:30 RBC 3.24 L (4.30-5.90) m/uL Hgb 10.1 L (13.0-17.5) gm/dL Hct 31.1 L (39.0-53.0) % RDW 20.3 H (11.5-15.5) % Plt Count 88 L (150-450) k/uL Lymphocytes # 0.1 L (1.0-4.8) k/uL Sodium 133 L (137-145) mmol/L Potassium 5.2 H (3.5-5.1) mmol/L BUN 21 H (9-20) mg/dL Creatinine 1.83 H (0.66-1.25) mg/dL C-Reactive Protein 20.9 H (<1.0) mg/dL Total Protein 5.4 L (6.3-8.2) g/dL Albumin 2.9 L (3.5-5.0) g/dL Urine Protein 1+ H (Negative) Urine Blood Trace H (Negative) Urine Bacteria Rare H (None) /hpf Assessment and Plan Assessment: #Left foot cellulitis and abscess In immunocompromised patient Limb threatening infection Continue antibiotics per infectious disease, vancomycin and cefepime CT on the left lower extremity ordered; due to CKD, without contrast We will consult podiatry, likely will need incision and drainage ESR, CRP, blood culture Attention to the left ankle, will discuss with podiatry I will hold his Eliquis for today and put patient on subcu heparin in case he needs incision and drainage #Multiple myeloma Following with hematology Currently undergoing chemotherapy Monitor blood counts, hematology consultation Continue prophylaxis with Acyclovir #CKD stage III Creatinine in the basilar range Avoid nephrotoxins Consultation with nephrology #History of pulmonary embolism Chronically on Eliquis Hold Eliquis today, start subcu heparin May need surgical intervention Venous Doppler 03/30: Negative for DVT #Chronic pain syndrome On oxycodone and gabapentin This was confirmed with the patient and [facility] This can be continued DVT prophylaxis: Will switch to subcu Lovenox, eventually will go back to his Eliquis Plan of care was discussed with the patient and patient's
--- NOTE | 2022-04-06 19:03 | CT ---
EXAMINATION TYPE: CT lower leg LT wo con DATE OF EXAM: 04/06/2022 COMPARISON: None HISTORY: left foot abscess CT DLP: 801.8 mGycm Automated exposure control for dose reduction was used. Images obtained from the proximal tibia to the bottom of the foot with no contrast. There is muscle atrophy with some fatty infiltration of the calf muscles. There is subcutaneous diffu se edema of the lower leg. There is subcutaneous edema around the ankle and the hindfoot. There is a 2.3 x 1.5 cm focal area of fluid over the dorsum of the midfoot. This could be an abscess. I see no bony destructive process. The metatarsals are intact. Hindfoot is intact. The tibia and fibu la show no evidence of a fracture. IMPRESSION: Diffuse subcutaneous edema of the entire lower leg. There is a focal area of fluid on the dorsum of t he midfoot over the second metatarsal that could be an abscess.
[2022-04-06] MEDS: ACETAMINOPHEN TAB 325 MG TAB PO PRN (20:31)
--- NOTE | 2022-04-06 23:06 | P.CONS ---
History of Present Illness - Reason for Consult Consult date: 04/06/22 Lower extremity cellulitis Requesting physician: Ce Pitt - Chief Complaint Weakness and fever 1 day - History of Present Illness Patient is a 67-year male with recent admission to this facility in this patient who did have a left foot and lower extremity cellulitis patient did have a CT that was suspicious for necrotizing infection however the patient was evaluated by orthopedic surgery recommending no surgical intervention patient was treated with cefazolin and clindamycin and did have significant improvement subsequent discharged home on oral Keflex patient mention he was doing okay however since yesterday started having increasing weakness and noticed the left foot becoming more swollen and red and painful patient describing pain to the left foot to be more of a throbbing 7-8 out of 10 and radiation he did have more swelling however no open wound or any drainage denies having any nausea no vomiting or any diarrhea patient on presentation to the hospital did have a fever 100.8 F patient did have a normal white count during her has been mildly elevated CRP was elevated, influenza PCR was negative patient did have a chest x-ray no active cardiopulmonary disease patient was started on cefepime and vancomycin infectious disease was consulted for further management of antibiotic therapy Review of Systems Positive point has been mentioned in the HPI rest of the systems are negative 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, gait dysfunction-uses walker, bilateral pedal/ankle edema, PE 08/2019, chronic low back pain, past vertebral fractures, minimal CAD, shingelles twice, past R heel wound, elevated lipids in the past, History of Any Multi-Drug Resistant Organisms: None Reported Past Surgical History: Heart Catheterization, Orthopedic Surgery Additional Past Surgical History / Comment(s): excision of uvular lesion(benign) 2009, colonoscopy, dave knee arthroscopy, rt rotator cuff sx, moles removed from back(benign), bone marrow aspiration/bx, stem cell transplant 2015, Past Anesthesia/Blood Transfusion Reactions: No Reported Reaction Past Psychological History: No Psychological Hx Reported Smoking Status: Never smoker Past Alcohol Use History: None Reported Past Drug Use History: None Reported - Past Family History Father Family Medical History: Renal Disease, Vascular Disorder Additional Family Medical History / Comment(s): aaa. Father is . Mother Family Medical History: Hypertension Additional Family Medical History / Comment(s): mom is healthy Medications and Allergies Home Medications Medication Instructions Recorded Confirmed Type Famotidine [Pepcid] 20 mg PO DAILY PRN 04/15/19 04/05/22 History Gabapentin [Neurontin] 300 mg PO TID 04/15/19 04/05/22 History dexAMETHasone 8 mg PO DIRECTED 04/15/19 04/05/22 History Acyclovir 400 mg PO BID 08/24/19 04/05/22 History Pomalyst 3mg 3 mg PO DIRECTED 08/24/19 04/05/22 History Aspirin 81 mg PO DAILY #30 chewable 08/26/19 04/05/22 Rx Apixaban [Eliquis] 5 mg PO BID 10/03/19 04/05/22 History Nitroglycerin Sl Tabs [Nitrostat] 0.4 mg SUBLINGUAL Q5M PRN 10/03/19 04/05/22 Hi story Calcium Carbonate/Vitamin D3 1 cap PO DAILY 01/10/20 04/05/22 History [Calcium 600-Vit D3 20 Mcg (800 Iu)] Potassium Chloride ER [K-Dur 20] 20 meq PO DAILY 01/10/20 04/05/22 History Furosemide [Lasix] 20 mg PO DAILY PRN 05/31/21 04/05/22 History Acetaminophen Tab [Tylenol] 650 mg PO Q6HR PRN tab 06/03/21 04/05/22 Rx Multivitamins, Thera [Multivitamin 1 tab PO DAILY 12/16/21 04/05/22 History (formulary)] oxyCODONE HCL [oxyCODONE HCL (IR)] 10 - 20 mg PO Q4H PRN 03/25/22 04/05/22 History Cephalexin [Keflex] 500 mg PO Q6HR 1 Days #40 cap 04/03/22 04/05/22 Rx Terbinafine 1% Cream [LamISIL] 1 applic TOPICAL TID 90 Days #15 gm 04/03/22 04/05/22 Rx Allergies Allergy/AdvReac Type Severity Reaction Status Date / Time sulfamethoxazole Allergy Rash/Hives Verified 04/05/22 21:45 [From Bactrim] trimethoprim [From Bactrim] Allergy Rash/Hives Verified 04/05/22 21:45 Physical Exam Vitals: Vital Signs Temp Pulse Resp BP Pulse Ox 04/06/22 12:00 91 18 178/90 98 04/06/22 08:13 18 170/91 04/06/22 06:25 98.4 F 84 16 148/75 98 04/06/22 03:14 99 F 99 19 132/84 98 04/06/22 00:14 18 145/87 04/05/22 19:47 100.8 F H 113 H 20 105/75 94 L GENERAL DESCRIPTION: And daily male lying in bed, no distress. No tachypnea or accessory muscle of respiration use. HEENT: Shows Pallor , no scleral icterus. Oral mucous membrane is dry. No p haryngeal erythema or thrush NECK: Trachea central, no thyromegaly. LUNGS: Unlabored breathing. Clear to auscultation anteriorly. No wheeze or crackle. HEART: S1, S2, regular rate and rhythm. No loud murmur ABDOMEN: Soft, no tenderness , guarding or rigidity, no organomegaly EXTREMITIES: Swelling and redness to the left leg on the dorsum of the left foot with swelling and fluctuant area SKIN: No rash, no masses palpable. NEUROLOGICAL: The patient is awake, alert, oriented x3, mood and affect normal. Results CBC & Chem 7: 04/05/22 22:00 04/06/22 11:14 Labs: Abnormal Lab Results - Last 24 Hours (Table) 04/05/22 04/05/22 04/06/22 Range/Units 22:00 22:00 00:30 RBC 3.24 L (4.30-5.90) m/uL Hgb 10.1 L (13.0-17.5) gm/dL Hct 31.1 L (39.0-53.0) % RDW 20.3 H (11.5-15.5) % Plt Count 88 L (150-450) k/uL Lymphocytes # 0.1 L (1.0-4.8) k/uL Sodium 133 L (137-145) mmol/L Potassium 5.2 H (3.5-5.1) mmol/L BUN 21 H (9-20) mg/dL Creatinine 1.83 H (0.66-1.25) mg/dL C-Reactive Protein 20.9 H (<1.0) mg/dL Total Protein 5.4 L (6.3-8.2) g/dL Albumin 2.9 L (3.5-5.0) g/dL Urine Protein 1+ H (Negative) Urine Blood Trace H (Negative) Urine Bacteria Rare H (None) /hpf Assessment and Plan (1) Cellulitis Current Visit: Yes Status: Acute Code(s): L03.90 - CELLULITIS, UNSPECIFIED SNOMED Code(s): 838608827 Plan: 1patient presented to hospital with fever weakness increasing pain and swelling to the left foot in this patient recently treated for cellulitis CT at that time did not show any abscess and there is a question of a necrotizing infection however the patient was evaluated by orthopedic and recommended no surgical intervention patient now clinically has evidence of left foot abscess could be responsible for his recurrent symptoms. 2we will obtain a CT of the left foot to confirm the finding and if positive will get vascular surgery evaluation for drainage of this abscess. 3continue with the vancomycin and cefepime however monitor his kidney function closely. We will follow on clinical condition and cultures to further adjust medication if needed Thank you for this consultation will follow this patient along with you Time with Patient: Greater than 30
[2022-04-06] MEDS: HEPARIN SODIUM,PORCINE/PF 5,000 UNIT/0.5 ML SYRINGE SQ SCH (23:13)
[2022-04-07] MEDS: CEFEPIME 2 GM in SODIUM CHLORIDE 0.9% 100 ML IVPB SCH ×2 (03:56→16:44)
[2022-04-07] MEDS ORDERED: VANCOMYCIN 1,500 MG in SODIUM CHLORIDE 0.9% 250 ML IVPB ONE (06:00)
[2022-04-07] MEDS ORDERED: FUROSEMIDE 10 MG/ML 2 ML VIAL IV ONE (08:02)
--- NOTE | 2022-04-07 08:04 | P.NPCON ---
History of Present Illness - Reason for Consult acute renal failure, chronic renal failure - History of Present Illness Reason for consultation: Acute kidney injury on chronic kidney disease History of present illness: Patient is a 67-year-old male seen in renal consultation for acute kidney injury on chronic kidney disease. Patient has chronic kidney disease stage IIIB with baseline creatinine near 1.5. Patient has long-standing history of multiple myeloma and follows with oncology outpatient. Patient presented to the hospital due to feeling weak and worsening swelling in his lower extremity. He is currently being treated for left lower extremity cellulitis with IV antibiotics. No vomiting or diarrhea. Oral intake has been fair. Denies use of nonsteroidals. No history of diabetes. Denies chest pain or shortness of breath. CT of the lower extremity showed diffuse subcutaneous edema of the entire left lower leg with possible abscess. Vascular surgery has been consulted. Vital signs are stable. General: No acute distress. HEENT: Head exam is unremarkable. LUNGS: Breath sounds decreased. HEART: Rate and Rhythm are regular. ABDOMEN: Soft, no distention. EXTREMITITES: 2+ edema lower extremities. 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, gait dysfunction-uses walker, bilateral pedal/ankle edema, PE 08/2019, chronic low back pain, past vertebral fractures, minimal CAD, shingelles twice, past R heel wound, elevated lipids in the past, History of Any Multi-Drug Resistant Organisms: None Reported Past Surgical History: Heart Catheterization, Orthopedic Surgery Additional Past Surgical History / Comment(s): excision of uvular lesion(benign) 2009, colonoscopy, dave knee arthroscopy, rt rotator cuff sx, moles removed from back(benign), bone marrow aspiration/bx, stem cell transplant 2015, Past Anesthesia/Blood Transfusion Reactions: No Reported Reaction Past Psychological History: No Psychological Hx Reported Smoking Status: Never smoker Past Alcohol Use History: None Reported Past Drug Use History: None Reported - Past Family History Father Family Medical History: Renal Disease, Vascular Disorder Additional Family Medical History / Comment(s): aaa. Father is . Mother Family Medical History: Hypertension Additional Family Medical History / Comment(s): mom is healthy Medications and Allergies Home Medications Medication Instructions Recorded Confirmed Type Famotidine [Pepcid] 20 mg PO DAILY PRN 04/15/19 04/05/22 History Gabapentin [Neurontin] 300 mg PO TID 04/15/19 04/05/22 History dexAMETHasone 8 mg PO DIRECTED 04/15/19 04/05/22 History Acyclovir 400 mg PO BID 08/24/19 04/05/22 History Pomalyst 3mg 3 mg PO DIRECTED 08/24/19 04/05/22 History Aspirin 81 mg PO DAILY #30 chewable 08/26/19 04/05/22 Rx Apixaban [Eliquis] 5 mg PO BID 10/03/19 04/05/22 History Nitroglycerin Sl Tabs [Nitrostat] 0.4 mg SUBLINGUAL Q5M PRN 10/03/19 04/05/22 History Calcium Carbonate/Vitamin D3 1 cap PO DAILY 01/10/20 04/05/22 History [Calcium 600-Vit D3 20 Mcg (800 Iu)] Potassium Chloride ER [K-Dur 20] 20 meq PO DAILY 01/10/20 04/05/22 History Furosemide [Lasix] 20 mg PO DAILY PRN 05/31/21 04/05/22 History Acetaminophen Tab [Tylenol] 650 mg PO Q6HR PRN tab 06/03/21 04/05/22 Rx Multivitamins, Thera [Multivitamin 1 tab PO DAILY 12/16/21 04/05/22 History (formulary)] oxyCODONE HCL [oxyCODONE HCL (IR)] 10 - 20 mg PO Q4H PRN 03/25/22 04/05/22 History Cephalexin [Keflex] 500 mg PO Q6HR 1 Days #40 cap 04/03/22 04/05/22 Rx Terbinafine 1% Cream [LamISIL] 1 applic TOPICAL TID 90 Days #15 gm 04/03/22 04/05/22 Rx Allergies Allergy/AdvReac Type Severity Reaction Status Date / Time sulfamethoxazole Allergy Rash/Hives Verified 04/05/22 21:45 [From Bactrim] trimethoprim [From Bactrim] Allergy Rash/Hives Verified 04/05/22 21:45 Physical Exam Vitals: Vital Signs Temp Pulse Pulse Resp BP BP Pulse Ox 04/07/22 04:00 98.3 F 82 16 116/78 98 04/06/22 20:32 100.4 F H 98 18 125/80 97 04/06/22 18:43 89 18 136/86 98 04/06/22 15:00 87 18 161/96 98 04/06/22 12:00 91 18 178/90 98 04/06/22 08:13 18 170/91 Intake and Output 04/06/22 04/07/22 04/07/22 22:59 06:59 14:59 Other: Voiding Method Toilet # Voids 2 Weight 97.522 kg Results - Lab Results Most recent lab results Calcium 8.7 mg/dL (8.4-10.2) 04/05/22 22:00 04/05/22 22:00 04/06/22 11:14 Assessment and Plan Plan: Assessment: 1. Acute kidney injury secondary to ATN secondary to infection. Creatinine 1.83 on admission. Kidney ultrasound from earlier this month showed no evidence of hydronephrosis. 2. Chronic kidney disease stage IIIB with baseline creatinine near 1.5. 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 3. Left lower extremity cellulitis with possible abscess on antibiotics. 4. Multiple myeloma maintained on chemotherapy outpatient. 5. Anemia of chronic kidney disease. Rule out iron deficiency. Also with thrombocytopenia possibly related to therapy for myeloma. 6. Lower extremity edema. Plan: Lasix 20 mg IV once today. Quantify proteinuria. Check serologies. Check iron studies. Avoid nephrotoxins. Monitor vancomycin levels. Dose to be adjusted for renal function. Thank you for the consultation. I will continue to follow the patient with you during his hospital stay.
[2022-04-07] MEDS: HYDROmorphone 0.5 MG/0.5 ML SYRINGE IVP PRN ×3 (08:26→18:45)
[2022-04-07] MEDS: HEPARIN SODIUM,PORCINE/PF 5,000 UNIT/0.5 ML SYRINGE SQ SCH ×3 (08:27→23:22)
[2022-04-07] MEDS: GABAPENTIN 300 MG CAP PO SCH ×3 (08:27→21:24)
[2022-04-07] MEDS: ACYCLOVIR 200 MG CAP PO SCH ×2 (08:27→21:24)
[2022-04-07] MEDS: MULTIVITAMINS, THERA 1 EACH TAB PO SCH (08:27)
[2022-04-07 09:08] LABS: African American GFR (CKD) 41.1 (60.0-200.0); Anion Gap 11.3 mmol/L (10.00-18.00); BUN/Creat Ratio 8.42 Ratio (12.00-20.00); C Reactive Protein 23.8 mg/dL (0.00-0.80); Calcium 8.2 mg/dL (8.7-10.3); Carbon Dioxide 24.7 mmol/L (20.0-27.5); Non-African American GFR(CKD) 35.4 (60.0-200.0); Potassium 3.7 mmol/L (3.5-5.5)
--- NOTE | 2022-04-07 09:39 | P.CONS ---
History of Present Illness - Reason for Consult Consult date: 04/07/22 MM - Chief Complaint Fever - History of Present Illness This is a 67 yr old [facility] patient of Dr. Browning, well-known to the practice. He was admitted last week with c/o persistent lethargy and progressive LLE pain, swelling, redness. Lethargy started shortly after receiving his first kyprolils infusion. He was on oral antibiotics for the LLE cellulitis, no alleviation of symptoms. He was treated with IV antibiotics, with improvement and then discharged home on oral antibiotics. The patient states that he developed progressive swelling and pain in the LLE, which was quite severe to the point where he was unable to bear weight on the left leg. Yesterday he also developed increased back pain in the mid back area, described as a bandlike sensation. He reports associated feeling of some leg weakness and numbness. He denied any loss of control or retention of bowels or urine. He therefore came back to the emergency room, where he was found to have increased lower extremity swelling. X-ray of the tibia and fibula were negative. Chest x-ray was negative. CBC was fairly stable with only mild anemia. Renal function was however worse compared to baseline. He was admitted for further management. Pt denied fever, chills, nausea, vomiting, chest pain, cough, sore throat, abd pain, diarrhea, or constipation. He has chronic low back pain 2/2 myeloma lesion on spine.. CBC mostly normal Malignancy history: Mr. Paul has a long history of treatment for multiple myeloma. Initially presented with progressive back pain that started in August 2015. Workup ultimately revealed elevated calcium, protein, creatinine, decreased hemoglobin, IgG lambda monoclonal protein, M protein 6.8 g/dL normal kappa lambda ratio. He also had osteoporotic compression fractures. 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 Started RVD 01/11/16, completed 4 cycles, repeat bone marrow revealed minimal residual disease. Underwent autologous stem cell transplant 08/27/16. Started maintenance revlimid end of December 2016, with doses held and reduced for pancytopenia over the years he was on it. He started to have worsening back pain in January 2019, MRI of his lumbar spine 03/10/19 revealed progressing soft tissue mass at L2 causing compression of the thecal sac and L3 nerve root and new paraspinal soft tissue mass at L4-L5, M-protein was up to 2.2gm/dl, Ig level up to 3019mg/dl, free lambda level 148.9mg/L, ratio of 0.04, normal creatinine and calcium, re peat skeletal bone survey revealed no changes. 04/07/19 he started darzalex/pomalyst/decadron. April 2019 he had disseminated zoster and requires viral prophylaxis/suppression medication on active MM treatment. He was admitted early Aug 2019 for shortness of breath, chest pain, hypotension and mild tachycardia. CT of the chest was performed revealing pulmonary embolism, he continues on eliquis to current. Patient followed up with Dr. Browning in early March, c/o progressive back pain, imaging revealed some progression in vertebral bony lesions. IV regimen changed to kyrpolis, cont on pomalyst and dex as prescribed. S/P C1 D1. He was recently discharged from hospital after being admitted with LE pain and weakness two weeks post palliaitive radition to spine. 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, gait dysfunction-uses walker, bilateral pedal/ankle edema, PE 08/2019, chronic low back pain, past vertebral fractures, minimal CAD, shingelles twice, past R heel wound, elevated lipids in the past, History of Any Multi-Drug Resistant Organisms: None Reported Past Surgical History: Heart Catheterization, Orthopedic Surgery Additional Past Surgical History / Comment(s): excision of uvular lesion(benign) 2009, colonoscopy, dave knee arthroscopy, rt rotator cuff sx, moles removed from back(benign), bone marrow aspiration/bx, stem cell transplant 2016, Past Anesthesia/Blood Transfusion Reactions: No Reported Reaction Past Psychological History: No Psychological Hx Reported Smoking Status: Never smoker Past Alcohol Use History: None Reported Past Drug Use History: None Reported - Past Family History Father Family Medical History: Renal Disease, Vascular Disorder Additional Family Medical History / Comment(s): aaa. Father is . Mother Family Medical History: Hypertension Additional Family Medical History / Comment(s): mom is healthy Medications and Allergies Home Medications Medication Instructions Recorded Confirmed Type Famotidine [Pepcid] 20 mg PO DAILY PRN 04/15/19 04/05/22 History Gabapentin [Neurontin] 300 mg PO TID 04/15/19 04/05/22 History dexAMETHasone 8 mg PO DIRECTED 04/15/19 04/05/22 History Acyclovir 400 mg PO BID 08/24/19 04/05/22 History Pomalyst 3mg 3 mg PO DIRECTED 08/24/19 04/05/22 History Aspirin 81 mg PO DAILY #30 chewable 08/26/19 04/05/22 Rx Apixaban [Eliquis] 5 mg PO BID 10/03/19 04/05/22 History Nitroglycerin Sl Tabs [Nitrostat] 0.4 mg SUBLINGUAL Q5M PRN 10/03/19 04/05/22 History Calcium Carbonate/Vitamin D3 1 cap PO DAILY 01/10/20 04/05/22 History [Calcium 600-Vit D3 20 Mcg (800 Iu)] Potassium Chloride ER [K-Dur 20] 20 meq PO DAILY 01/10/20 04/05/22 History Furosemide [Lasix] 20 mg PO DAILY PRN 05/31/21 04/05/22 History Acetaminophen Tab [Tylenol] 650 mg PO Q6HR PRN tab 06/03/21 04/05/22 Rx Multivitamins, Thera [Multivitamin 1 tab PO DAILY 12/16/21 04/05/22 History (formulary)] oxyCODONE HCL [oxyCODONE HCL (IR)] 10 - 20 mg PO Q4H PRN 03/25/22 04/05/22 History Cephalexin [Keflex] 500 mg PO Q6HR 1 Days #40 cap 04/03/22 04/05/22 Rx Terbinafine 1% Cream [LamISIL] 1 applic TOPICAL TID 90 Days #15 gm 04/03/22 04/05/22 Rx Allergies Allergy/AdvReac Type Severity Reaction Status Date / Time sulfamethoxazole Allergy Rash/Hives Verified 04/05/22 21:45 [From Bactrim] trimethoprim [From Bactrim] Allergy Rash/Hives Verified 04/05/22 21:45 Physical Exam Vitals: Vital Signs Temp Pulse Pulse Resp BP BP Pulse Ox 04/07/22 04:00 98.3 F 82 16 116/78 98 04/06/22 20:32 100.4 F H 98 18 125/80 97 04/06/22 18:43 89 18 136/86 98 04/06/22 15:00 87 18 161/96 98 04/06/22 12:00 91 18 178/90 98 Intake and Output 04/06/22 04/07/22 04/07/22 22:59 06:59 14:59 Other: Voiding Method Toilet # Voids 2 Weight 97.522 kg - Constitutional General appearance: no acute distress - EENT Eyes: EOMI, PERRLA ENT: hearing grossly normal, normal oropharynx - Neck Neck: no lymphadenopathy Thyroid: bilateral: normal size - Respiratory Respiratory: bilateral: CTA - Cardiovascular Rhythm: regular Heart sounds: normal: S1, S2 - Gastrointestinal General gastrointestinal: normal bowel sounds, soft - Integumentary left lower extremity swelling below knee, with patchy diffuse erythema. One lesion medially, but we between knee and ankle, in 2-3 other lesions poste riorly, slightly raised, hyperpigmented, slightly puffy. Significant tenderness on palpation in these areas Integumentary: calor, cellulitis - Neurologic Neurologic: CNII-XII intact, focal deficits (questionable lower extremity mild w eakness) - Musculoskeletal Musculoskeletal: generalized weakness, strength equal bilaterally Results CBC & Chem 7: 04/07/22 09:49 04/07/22 05:59 Labs: Abnormal Lab Results - Last 24 Hours (Table) 04/07/22 Range/Units 05:59 Creatinine 1.9 H (0.6-1.5) mg/dL Est GFR (CKD-EPI)AfAm 41.1 L (60.0-200.0) Est GFR (CKD-EPI)NonAf 35.4 L (60.0-200.0) BUN/Creatinine Ratio 8.42 L (12.00-20.00) Ratio Calcium 8.2 L (8.7-10.3) mg/dL Creatine Kinase 18 L (35-257) U/L C-Reactive Protein 23.80 H (0.00-0.80) mg/dL Microbiology - Last 24 Hours (Table) 04/05/22 22:00 Blood Culture - Preliminary Blood No Growth after 24 hours 04/05/22 22:40 Blood Culture - Preliminary Blood No Growth after 24 hours Assessment and Plan Plan: Comments: X ray tib/fib reviewed Assessment and Plan (1) Left leg cellulitis Narrative/Plan: The patient had improved at the time of his recent discharge. However, there is still evidence of ongoing issue On examination there appeared to be focal areas of markedly increased tenderness. Last admission a CT of the lower extremity was ordered to check for deeper soft tissue infection including necrotizing fasciitis. as well as repeat Dopplers Current Visit: Yes Status: Acute Code(s): L03.116 - CELLULITIS OF LEFT LOWER LIMB SNOMED Code(s): 482946797 (2) Intractable back pain Narrative/Plan: - Last admission pain improved prior to discharge, was felt radiation was needing more time to kick in - Cord compression was ruled out with MRI Current Visit: Yes Status: Acute Code(s): M54.9 - DORSALGIA, UNSPECIFIED SNOMED Code(s): 038526459 (3) Multiple myeloma Narrative/Plan: the patient has recently been started on a new regimen. This is currently on hold. This can be resumed, once acute condition resolves in a satisfactory manner. Current Visit: No Status: Chronic Priority: Medium Code(s): C90.00 - MULTIPLE MYELOMA NOT HAVING ACHIEVED REMISSION SNOMED Code(s): 724045376 Infectious work-up ordered ID ifollowing labs ordered for am
--- NOTE | 2022-04-07 09:46 | P.GSCN ---
History of Present Illness Consult date: 04/07/22 Reason for Consult: Left foot abscess Requesting physician: Francois Miranda History of present illness: This is a pleasant 67-year-old male with a past medical history including multiple myeloma, history of pulmonary embolism, coronary artery disease, hyperlipidemia, peripheral neuropathy and chronic cellulitis of the left lower extremity. Patient states he's been treated for cellulitis for the last 2 weeks. He has been admitted to the hospital on IV antibiotics and then discharged. His most recent hospitalization was March 30 through April 03, 2022. During that hospitalization he had a CT of the left lower extremity that showed marked diffuse soft tissue abnormality consistent with cutaneous and deep fascial plane edema/inflammation findings are suspicious for necrotizing fasciitis. At that time orthopedics was consulted who reported low clinical suspicion for necrotizing fasciitis recommended continued antibiotics and no surgical intervention. During this admission patient underwent another CT of the left lower extremity without contrast reporting diffuse subcutaneous edema the entire lower leg. There is a focal area of fluid on the dorsum of the midfoot or the second metatarsal that could be an abscess. Vascular surgery was consulted for the above-mentioned. Patient states he has pain in the left lower calf as well as pineda and dorsal aspect of his foot. The redness has been there for the last 2-1/2 weeks. He does not recall any injury to the foot. He states he had hit his bed with his left pineda perhaps during this time. He had a max temp of 100.8 on admission with a temp of 100.4 yesterday evening. He is currently afebrile. He denies any shortness of breath, chest pain, abdominal pain, nausea or vomiting. He is currently on IV cefepime and vancomycin. Infectious disease is following. Review of Systems A 14 point review systems was completed all pertinent positives and negatives as stated in the HPI. 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, gait dysfunction-uses walker, bilateral pedal/ankle edema, PE 08/2019, chronic low back pain, past vertebral fractures, minimal CAD, shingelles twice, past R heel wound, elevated lipids in the past, History of Any Multi-Drug Resistant Organisms: None Reported Past Surgical History: Heart Catheterization, Orthopedic Surgery Additional Past Surgical History / Comment(s): excision of uvular lesion(benign) 2009, colonoscopy, dave knee arthroscopy, rt rotator cuff sx, moles removed from back(benign), bone marrow aspiration/bx, stem cell transplant 2016, Past Anesthesia/Blood Transfusion Reactions: No Reported Reaction Past Psychological History: No Psychological Hx Reported Smoking Status: Never smoker Past Alcohol Use History: None Reported Past Drug Use History: None Reported - Past Family History Father Family Medical History: Renal Disease, Vascular Disorder Additional Family Medical History / Comment(s): aaa. Father is . Mother Family Medical History: Hypertension Additional Family Medical History / Comment(s): mom is healthy Medications and Allergies Home Medications Medication Instructions Recorded Confirmed Type Famotidine [Pepcid] 20 mg PO DAILY PRN 04/15/19 04/05/22 History Gabapentin [Neurontin] 300 mg PO TID 04/15/19 04/05/22 History dexAMETHasone 8 mg PO DIRECTED 04/15/19 04/05/22 History Acyclovir 400 mg PO BID 08/24/19 04/05/22 History Pomalyst 3mg 3 mg PO DIRECTED 08/24/19 04/05/22 History Aspirin 81 mg PO DAILY #30 chewable 08/26/19 04/05/22 Rx Apixaban [Eliquis] 5 mg PO BID 10/03/19 04/05/22 History Nitroglycerin Sl Tabs [Nitrostat] 0.4 mg SUBLINGUAL Q5M PRN 10/03/19 04/05/22 History Calcium Carbonate/Vitamin D3 1 cap PO DAILY 01/10/20 04/05/22 History [Calcium 600-Vit D3 20 Mcg (800 Iu)] Potassium Chloride ER [K-Dur 20] 20 meq PO DAILY 01/10/20 04/05/22 History Furosemide [Lasix] 20 mg PO DAILY PRN 05/31/21 04/05/22 History Acetaminophen Tab [Tylenol] 650 mg PO Q6HR PRN tab 06/03/21 04/05/22 Rx Multivitamins, Thera [Multivitamin 1 tab PO DAILY 12/16/21 04/05/22 History (formulary)] oxyCODONE HCL [oxyCODONE HCL (IR)] 10 - 20 mg PO Q4H PRN 03/25/22 04/05/22 History Cephalexin [Keflex] 500 mg PO Q6HR 1 Days #40 cap 04/03/22 04/05/22 Rx Terbinafine 1% Cream [LamISIL] 1 applic TOPICAL TID 90 Days #15 gm 04/03/22 04/05/22 Rx Allergies Allergy/AdvReac Type Severity Reaction Status Date / Time sulfamethoxazole Allergy Rash/Hives Verified 04/05/22 21:45 [From Bactrim] trimethoprim [From Bactrim] Allergy Rash/Hives Verified 04/05/22 21:45 Surgical - Exam Vital Signs Temp Pulse Resp BP Pulse Ox 100.8 F H 113 H 20 105/75 94 L 04/05/22 19:47 04/05/22 19:47 04/05/22 19:47 04/05/22 19:47 04/05/22 19:47 General appearance: The patient is alert, oriented, appears in no acute distress. HET: Head is normocephalic and atraumatic. Pupils are equal and reactive. Neck: Supple without lymphadenopathy. Trachea midline. Heart: S1 S2. Regular rate and rhythm. Lungs: Clear to auscultation bilaterally. Abdomen: Soft, nontender, nondistended. Extremities: Bilateral lower extremity +1 pitting edema. Left lower extremity with erythema along the dorsal aspect of left foot with induration, erythema extends to just below the knee. Palpable bilateral DP pulses. Neurological: No focal deficits. Alert and oriented 3 Results - Labs 04/07/22 09:49 04/07/22 05:59 Microbiology - Last 24 Hours (Table) 04/05/22 22:00 Blood Culture - Preliminary Blood No Growth after 24 hours 04/05/22 22:40 Blood Culture - Preliminary Blood No Growth after 24 hours Diabetes panel 04/06/22 Range/Units 11:14 Potassium 3.6 (3.5-5.1) mmol/L Pituitary panel 04/06/22 Range/Units 11:14 Potassium 3.6 (3.5-5.1) mmol/L Adrenal panel 04/06/22 Range/Units 11:14 Potassium 3.6 (3.5-5.1) mmol/L - Imaging Comments: CT of the left lower extremity without contrast reporting diffuse subcutaneous edema the entire lower leg. There is a focal area of fluid on the dorsum of the midfoot or the second metatarsal that could be an abscess. Assessment and Plan Assessment: 1. Left foot abscess 2. Cellulitis of the left lower extremity 3. Multiple myeloma 4. History of pulmonary embolism on Eliquis 5. Peripheral neuropathy 6. History of coronary artery disease status post stent 7. History hypertension 8. History hyperlipidemia 9. Obesity Plan: 1. Continue IV antibiotics per recommendations from infectious disease 2. Patient scheduled for incision and drainage with deep tissue cultures this afternoon. Procedure was discussed with patient and his who is at the bedside. They're willing to proceed. 3. Patient may have heart healthy diet 4. Hold Damaris Thank you for this consultation, we will continue to follow. The impression and plan of care has been dictated as directed. Dr. Ryder I performed a history and examination of this patient, discussed the same with the dictator. I agree with the dictator's note ,documented as a scribe. Any additional findings or plans will be noted.
[2022-04-07 09:57] LABS: HGB 8.8 g/dL (13.0-17.0); MCH 29.3 pg (27.0-32.0); MCHC 30.3 g/dL (32.0-37.0); MCV 96.7 fL (80.0-97.0); NRBC Per 100 WBC 0.7 /100 WBCS (0.0-0.0); Platelet Count 75 X 10*3/uL (140-440); RDW 21.4 % (11.5-14.5); WBC 2.87 X 10*3/uL (4.50-10.00)
[2022-04-07 10:28] LABS: Anisocytosis Slight; Basophils % (A) 0 %; Eosinophils # (A) 0.1 k/uL (0-0.7); Eosinophils % (A) 3 %; HCT 30.8 % (39.0-53.0); Hypochromasia Slight; Lymphocytes # (A) 0.1 k/uL (1.0-4.8); Lymphocytes % (A) 4 %; MCH 31.7 pg (25.0-35.0); MCHC 32.5 g/dL (31.0-37.0); MCV 97.6 fL (80.0-100.0); Macrocytosis Slight; Mean Platelet Volume 11.1; Monocytes # (A) 0.1 k/uL (0-1.0); Monocytes % (A) 3 %; Neutrophils # (A) 2.8 k/uL (1.3-7.7); Neutrophils % (A) 89 %; Platelet Count 104 k/uL (150-450); RBC 3.16 m/uL (4.30-5.90); RDW 19.6 % (11.5-15.5); WBC 3.1 k/uL (3.8-10.6)
[2022-04-07 10:37] LABS: Erythrocyte Sedimentation Rate 92 mm/Hr (0-20)
[2022-04-07 11:02] LABS: Prothrombin Time 10.8 sec (9.0-12.0)
[2022-04-07 11:02] LABS: Creatinine,Urine Random 5.2 mg/dL; Protein/Creatinine Ratio,Urine 3.269
--- NOTE | 2022-04-07 11:23 | P.PN ---
Subjective Principal diagnosis: Left foot abscess and cellulitis This is a 67-year-old male history of multiple myeloma, pulmonary embolism who is admitted for evaluation of left foot cellulitis. Patient was discharged from our institution 3 days ago on antibiotic therapy. However he returns due to worsening swelling and redness in the left foot and lower part of his left leg. CT of the left lower extremity showing some swelling and likely abscess in the dorsum of the left foot. Started on vancomycin and cefepime with consultation to infectious diseases and podiatry. Interval history: He is feeling significantly better today. Swelling and redness improved in the left leg and he has been afebrile and feeling more energetic. He is planned for incision and drainage with podiatry Objective - Vital Signs Vital signs: Vital Signs Temp 98.3 F 04/07/22 04:00 Pulse 82 04/07/22 04:00 Resp 16 04/07/22 04:00 BP 116/78 04/07/22 04:00 Pulse Ox 98 04/07/22 04:00 FiO2 Intake & Output 04/06/22 04/07/22 04/07/22 18:59 06:59 18:59 Weight 97.522 kg Other: Voiding Method Toilet # Voids 2 - Exam Awake alert oriented 3, no acute distress Head and neck: Anicteric sclera, extraocular movements intact, no facial asymmetry, oropharyngeal mucosa is moist without any lesions, neck is supple without rigidity, no neck masses or neck vein distention Heart: Regular rhythm and rate, S1, S2; no murmurs rubs or gallops Lungs: Breath sounds present bilateral, no wheezing, rhonchi or crackles Abdomen: Bowel sounds present throughout, abdomen is soft, nontender, non distended, no involuntary guarding, no hernias or organomegaly, no flank tenderness Extremities: Right lower extremity appears normal with trace edema no erythema or tenderness Left lower extremity: Left foot is swollen, mostly dorsally with circular erythema and central area with complemental fluctuation; there is some tenderness with range of motion over the left ankle, there is a 1+ edema over the pineda area with possibility of abscess forming. - Labs CBC & Chem 7: 04/07/22 09:49 04/07/22 05:59 Labs: Abnormal Lab Results - Last 24 Hours (Table) 04/07/22 04/07/22 04/07/22 Range/Units 05:59 05:59 09:49 WBC 2.87 L 3.1 L (4.50-10.00) X 10*3/uL RBC 3.00 L 3.16 L (4.40-5.60) X 10*6/uL Hgb 8.8 L 10.0 L (13.0-17.0) g/dL Hct 29.0 L 30.8 L (39.6-50.0) % MCHC 30.3 L (32.0-37.0) g/dL RDW 21.4 H 19.6 H (11.5-14.5) % Plt Count 75 L 104 L (140-440) X 10*3/uL Absolute Nucleated RBC 0.02 H (0.00-0.00) X 10*3/uL Lymphocytes # 0.1 L (1.0-4.8) k/uL NRBC/100 WBC Diff 0.7 H (0.0-0.0) /100 WBCS Immature Plt Fraction 13.0 H (1.1-6.1) % ESR 92 H (0-20) mm/Hr Creatinine 1.9 H (0.6-1.5) mg/dL Est GFR (CKD-EPI)AfAm 41.1 L (60.0-200.0) Est GFR (CKD-EPI)NonAf 35.4 L (60.0-200.0) BUN/Creatinine Ratio 8.42 L (12.00-20.00) Ratio Calcium 8.2 L (8.7-10.3) mg/dL Creatine Kinase 18 L (35-257) U/L C-Reactive Protein 23.80 H (0.00-0.80) mg/dL Microbiology - Last 24 Hours (Table) 04/05/22 22:00 Blood Culture - Preliminary Blood No Growth after 24 hours 04/05/22 22:40 Blood Culture - Preliminary Blood No Growth after 24 hours Assessment and Plan Assessment: #Left foot cellulitis and abscess In immunocompromised patient Continue antibiotics per infectious disease, vancomycin and cefepime CT on the left lower extremity : Likely abscess in the left foot Incision and drainage with podiatry on 04/08/22 Continue to hold Eliquis #Multiple myeloma Following with hematology Currently undergoing chemotherapy Monitor blood counts, hematology consultation Continue prophylaxis with Acyclovir #CKD stage III Creatinine in the basilar range Avoid nephrotoxins Consultation with nephrology Needs diuresis #History of pulmonary embolism Chronically on Eliquis Hold Eliquis for incision and drainage of 04/08/22 Placed on subcu heparin Venous Doppler 03/30: Negative for DVT #Chronic pain syndrome On oxycodone and gabapentin This was confirmed with the patient and MAPS Continued and tolerating well DVT prophylaxis: Sq Heparin and eventually will go back to his Eliquis Plan of care was discussed with the patient and patient's
[2022-04-07 11:56] LABS: Reticulocyte % 1.8 % (0.5-2.0)
[2022-04-07] MEDS ORDERED: IV FLUID CONTINUATION 990 ML IV ONE (13:53)
--- NOTE | 2022-04-07 14:19 | CDI ---
Documentation Clarification Form Date: 04/07/2022 02:07:30 PM From: Judy Go CCS, CCDS Admit Date: 04/06/2022 02:41:00 AM Patient Name: Hernan Paul Visit Number: [id number] Discharge Date: ATTENTION: The Clinical Documentation Specialists (CDI) and [facility] Coding Staff appreciate your assistance in clarifying documentation. Please respond to the clarification below the line at the bottom and electronically sign. The CDI & [facility] Coding staff will review the response and follow-up if needed. Please note: Queries are made part of the Legal Health Record. If you have any questions, please contact the author of this message via ITS. Dr. Gregor Greene The patient presented with the following clinical indicators: Fever, Uncontrolled pain, recently admit for lower extremity infection twice and discharged home on antibiotics: Clindamycin & Keflex. Would is swollen and red, warm to the touch.. Additional clarification regarding the etiology/cause of the clinical indicators is requested. History/Risk Factors per the 04/06 H/P: CAD, Multiple Myeloma status post Chemotherapy & immunologics and Stem Cell Transplant, Hyperlipidemia, PE, Neuropathy bilateral feet from chemotherapy, Gait dysfunction, Bilateral pedal & ankle edema, Chronic low back pain, Past Vertebral fractures, Shingles twice. Clinical Indicators: Presented to the ED on 04/06 with Fever and uncontrolled pain with chronic lower extremity infection. Admit with Cellulitis, Neutropenic fever with history of Multiple Myeloma. 04/05 VS: T 100.8, P 113, R 20, BP 105/75, PO 94 RA 04/05 LAB: WBC 5.1, RBC 3.24, Hgb 10.1, hct 31.1, Pl Ct 88.1, Lymphocytes 0.1; Na 133, K 5.2, BUN 21, Creatinine 1.83, CRP 20.9, Total Protein 5.4, Albumin 2.9 04/07 LAB: WBC 2.87, RBC 3.00, Hgb 8.8, Hct 29.0, Pl Ct 75, Absolute nucleated RBC 0.02, ESR 92 Treatment 04/05: Blood cultures, IV Dil[place]i 1 mg x1, IV Na Chl 1,000 mls @ 999 mls/hr q1H. 6/19: IV Cefepime 100 mls @ 200 mls/hr x1, IV Dilaudid 1 mg q3H/prn, IV Vancomycin 250 mls @ 125 mls/hr x1 In your professional opinion, please clarify if these findings signify one of the following conditions: [ ] Sepsis POA, please specify cause: [ X] Sepsis, Not POA, please specify cause: [ ] Severe Sepsis with organ failure [ ] Other, please specify Local infection [ ] Unable to determine (Template Last Reviewed: November 2020) MTDD
[2022-04-07] MEDS ORDERED: KETAMINE 10 MG/ML 20 ML VIAL ONE (14:26)
[2022-04-07] MEDS ORDERED: fentaNYL (PF) 50 MCG/ML 2 ML AMP ONE ×2 (14:26)
[2022-04-07] MEDS ORDERED: MIDAZOLAM 2 MG/2 ML VIAL ONE (14:26)
[2022-04-07] MEDS ORDERED: PROPOFOL 10 MG/ML 20 ML VIAL IV ONE (14:26)
[2022-04-07 14:58] LABS: Hepatitis A Antibody IgM Nonreactive (Nonreactive); Hepatitis B Core IgM Nonreactive (Nonreactive); Hepatitis B Surface Antigen Nonreactive (Nonreactive); Hepatitis C IgG Antibody Nonreactive (Nonreactive)
[2022-04-07] MEDS ORDERED: HYDROmorphone 0.5 MG/0.5 ML SYRINGE SQ ONE (15:34)
[2022-04-07] MEDS ORDERED: HYDROmorphone 0.5 MG/0.5 ML SYRINGE IVP ONE ×2 (15:34→15:44)
[2022-04-07 15:49] LABS: Anti-DNA, DS unit <1.0 IU/mL; DNA Double-Stranded NEGATIVE (NEGATIVE)
[2022-04-07 17:36] LABS: Protein, Total 5.3 g/dL (6.2-8.2)
[2022-04-08] MEDS: HYDROmorphone 0.5 MG/0.5 ML SYRINGE IVP PRN ×5 (01:48→21:46)
[2022-04-08] MEDS: CEFEPIME 2 GM in SODIUM CHLORIDE 0.9% 100 ML IVPB SCH ×2 (03:56→14:21)
[2022-04-08 06:49] LABS: ALT <6 U/L (4-49); AST 23 U/L (17-59); African American GFR (CKD) 38 (>60 ml/min/1.73 sqM); Albumin 2.4 g/dL (3.5-5.0); Albumin/Globulin Ratio 1.2; Alkaline Phosphatase 57 U/L (38-126); Anion Gap 5 mmol/L; Blood Urea Nitrogen 17 mg/dL (9-20); Calcium 7.7 mg/dL (8.4-10.2); Carbon Dioxide 29 mmol/L (22-30); Chloride 100 mmol/L (98-107); Glucose 97 mg/dL (74-99); Magnesium 1.6 mg/dL (1.6-2.3); Non-African American GFR(CKD) 33 (>60 ml/min/1.73 sqM); Potassium 3.3 mmol/L (3.5-5.1); Sodium 134 mmol/L (137-145); Total Bilirubin 0.5 mg/dL (0.2-1.3); Total Protein 4.4 g/dL (6.3-8.2)
--- NOTE | 2022-04-08 08:18 | P.PN ---
Subjective Progress Note Date: 04/07/22 Principal diagnosis: Left foot abscess and cellulitis Patient is a 67-year-old male presenting to the hospital with a fever and chills and left foot and leg pain swelling and redness has been diagnosed with a left foot abscess and cellulitis. On today's evaluation that is 04/07/2022, the patient is afebrile the patient pain to the left foot slightly decreased intensity, patient denies having any chest pain or shortness of breath or cough no abdominal pain or diarrhea Objective - Vital Signs Vital signs: Vital Signs Temp 98.3 F 04/07/22 04:00 Pulse 82 04/07/22 04:00 Resp 16 04/07/22 04:00 BP 116/78 04/07/22 04:00 Pulse Ox 98 04/07/22 04:00 FiO2 Intake & Output 04/06/22 04/07/22 04/07/22 18:59 06:59 18:59 Weight 97.522 kg Other: Voiding Method Toilet # Voids 2 - Exam GENERAL DESCRIPTION: An elderly male lying in bed in no distress RESPIRATORY SYSTEM: Unlabored breathing , decreased breath sounds at bases HEART: S1 S2 regular rate and rhythm , ABDOMEN: Soft , no tenderness EXTREMITIES: Left leg swelling however and redness has decreased left foot swelling and redness no drainage - Labs CBC & Chem 7: 04/07/22 09:49 04/08/22 05:42 Labs: Abnormal Lab Results - Last 24 Hours (Table) 04/07/22 04/07/22 Range/Units 05:59 05:59 WBC 2.87 L (4.50-10.00) X 10*3/uL RBC 3.00 L (4.40-5.60) X 10*6/uL Hgb 8.8 L (13.0-17.0) g/dL Hct 29.0 L (39.6-50.0) % MCHC 30.3 L (32.0-37.0) g/dL RDW 21.4 H (11.5-14.5) % Plt Count 75 L (140-440) X 10*3/uL Absolute Nucleated RBC 0.02 H (0.00-0.00) X 10*3/uL NRBC/100 WBC Diff 0.7 H (0.0-0.0) /100 WBCS Immature Plt Fraction 13.0 H (1.1-6.1) % Creatinine 1.9 H (0.6-1.5) mg/dL Est GFR (CKD-EPI)AfAm 41.1 L (60.0-200.0) Est GFR (CKD-EPI)NonAf 35.4 L (60.0-200.0) BUN/Creatinine Ratio 8.42 L (12.00-20.00) Ratio Calcium 8.2 L (8.7-10.3) mg/dL Creatine Kinase 18 L (35-257) U/L C-Reactive Protein 23.80 H (0.00-0.80) mg/dL Microbiology - Last 24 Hours (Table) 04/05/22 22:00 Blood Culture - Preliminary Blood No Growth after 24 hours 04/05/22 22:40 Blood Culture - Preliminary Blood No Growth after 24 hours Assessment and Plan (1) Cellulitis Current Visit: Yes Status: Acute Code(s): L03.90 - CELLULITIS, UNSPECIFIED SNOMED Code(s): 781920117 Plan: 1patient presented to hospital with fever weakness increasing pain and swelling to the left foot in this patient recently treated for cellulitis CT at that time did not show any abscess and there is a question of a necrotizing infection however the patient was evaluated by orthopedic and recommended no surgical intervention patient now clinically has evidence of left foot abscess could be responsible for his recurrent symptoms. 2 CT of the left foot did shows evidence of abscess and vascular surgery has evaluated patient and plan for for drainage of this abscess tomorrow morning. 3patient to continue with the vancomycin and cefepime however monitor his kidney function closely. Time with Patient: Less than 30
[2022-04-08] MEDS: GABAPENTIN 300 MG CAP PO SCH ×3 (08:30→21:46)
[2022-04-08] MEDS: ACYCLOVIR 200 MG CAP PO SCH ×2 (08:30→21:46)
[2022-04-08] MEDS: HEPARIN SODIUM,PORCINE/PF 5,000 UNIT/0.5 ML SYRINGE SQ SCH (08:30)
[2022-04-08] MEDS: MULTIVITAMINS, THERA 1 EACH TAB PO SCH (08:30)
[2022-04-08 08:40] LABS: Vancomycin,Random 18.3 ug/mL
[2022-04-08] MEDS: VANCOMYCIN 1,500 MG in SODIUM CHLORIDE 0.9% 250 ML IVPB SCH (09:58)
[2022-04-08] MEDS ORDERED: MAGNESIUM SULFATE-D5W PMX 1 GM in DEXTROSE/WATER 1 100ML.BAG IVPB ONE (10:02)
[2022-04-08] MEDS ORDERED: POTASSIUM CHLORIDE ER 20 MEQ TAB.ER PO STA (10:02)
--- NOTE | 2022-04-08 10:24 | P.PN ---
Subjective Patient is seen in follow-up for acute kidney injury and chronic kidney disease. Creatinine 2.02 today. On IV Lasix. Edema improved. Hemodynamically stable. No vomiting or diarrhea. Vital signs are stable. General: No acute distress. HEENT: Head exam is unremarkable. LUNGS: Breath sounds decreased. HEART: Rate and Rhythm are regular. ABDOMEN: Soft, no distention. EXTREMITITES: Trace edema right lower extremity. Left lower extremity wrapped. Objective - Vital Signs Vital signs: Vital Signs Temp 98.1 F 04/08/22 04:01 Pulse 86 04/08/22 04:01 Resp 18 04/08/22 04:01 BP 108/67 04/08/22 04:01 Pulse Ox 96 04/08/22 04:01 FiO2 Intake & Output 04/07/22 04/08/22 04/08/22 18:59 06:59 18:59 Intake Total 440 100 Output Total 210 Balance 230 100 Intake: IV 440 Intake, IV Titration 100 Amount Cefepime 2 gm In Sodium 100 Chloride 0.9% 100 ml @ 25 mls/hr IVPB Q12H [facility] Rx# :[id number] Output: Urine 200 Estimated Blood Loss 10 Other: Voiding Method Toilet Toilet # Voids 3 3 - Labs CBC & Chem 7: 04/07/22 09:49 04/08/22 05:42 Labs: Abnormal Lab Results - Last 24 Hours (Table) 04/07/22 04/07/22 04/07/22 Range/Units 05:59 09:43 09:43 WBC (3.8-10.6) k/uL RBC (4.30-5.90) m/uL Hgb (13.0-17.5) gm/dL Hct (39.0-53.0) % RDW (11.5-15.5) % Plt Count (150-450) k/uL Lymphocytes # (1.0-4.8) k/uL ESR 92 H (0-20) mm/Hr Sodium (137-145) mmol/L Potassium (3.5-5.1) mmol/L Creatinine (0.66-1.25) mg/dL Calcium (8.4-10.2) mg/dL Lactate Dehydrogenase 449 H (120-246) U/L Total Protein (6.3-8.2) g/dL Total Protein (PEP) 5.3 L (6.2-8.2) g/dL Albumin (3.5-5.0) g/dL Vitamin B12 1029.0 H (200.0-944.0) pg/mL IgG (700.0-1600.0) mg/dL Complement C3 224.0 H (80.0-207.0) mg/dL 04/07/22 04/07/22 04/08/22 Range/Units 09:43 09:49 05:42 WBC 3.1 L (3.8-10.6) k/uL RBC 3.16 L (4.30-5.90) m/uL Hgb 10.0 L (13.0-17.5) gm/dL Hct 30.8 L (39.0-53.0) % RDW 19.6 H (11.5-15.5) % Plt Count 104 L (150-450) k/uL Lymphocytes # 0.1 L (1.0-4.8) k/uL ESR (0-20) mm/Hr Sodium 134 L (137-145) mmol/L Potassium 3.3 L (3.5-5.1) mmol/L Creatinine 2.02 H (0.66-1.25) mg/dL Calcium 7.7 L (8.4-10.2) mg/dL Lactate Dehydrogenase (120-246) U/L Total Protein 4.4 L (6.3-8.2) g/dL Total Protein (PEP) (6.2-8.2) g/dL Albumin 2.4 L (3.5-5.0) g/dL Vitamin B12 (200.0-944.0) pg/mL IgG 274.0 L (700.0-1600.0) mg/dL Complement C3 (80.0-207.0) mg/dL Microbiology - Last 24 Hours (Table) 04/05/22 22:00 Blood Culture - Preliminary Blood No Growth after 48 hours 04/05/22 22:40 Blood Culture - Preliminary Blood No Growth after 48 hours Assessment and Plan Plan: Assessment: 1. Acute kidney injury secondary to ATN secondary to infection and diuresis. Creatinine 1.83 on admission - 2.02 today. Kidney ultrasound from earlier this month showed no evidence of hydronephrosis. 2. Chronic kidney disease stage IIIB with baseline creatinine near 1.5. 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 UPC 3.2 g. 3. Left lower extremity cellulitis with possible abscess on antibiotics. Scheduled for incision and drainage today. 4. Multiple myeloma maintained on chemotherapy outpatient. 5. Anemia of chronic kidney disease. Rule out iron deficiency. Also with thrombocytopenia possibly related to therapy for myeloma. 6. Lower extremity edema. Improved with diuresis. 7. Hypokalemia secondary to diuresis. 8. Hypomagnesemia secondary to diuresis. Plan: Hold off on diuretics today. Potassium and magnesium being replaced. Follow-up serologies. Negative so far. Follow-up iron studies. Avoid nephrotoxins. Monitor vancomycin levels. Dose to be adjusted for renal function. Discussed with the patient that he may need kidney biopsy for definitive d iagnosis.
--- NOTE | 2022-04-08 10:59 | P.PN ---
Subjective Progress Note Date: 04/08/22 Principal diagnosis: Left foot abscess 59-year-old male who has had cellulitis over the last 2-1/2 weeks in and out of the hospital with IV antibiotics presented back with increased redness pain and swelling to the top of his left foot. He had a CT of the foot with findings sug gestive of abscess. Yesterday he underwent an incision and drainage with deep wound cultures done by Dr. Ryder. Today he states he does have some pain he has an William wrap to the left lower extremity. He denies any other acute changes. He has been afebrile throughout the night. Cultures are currently pending. Objective - Vital Signs Vital signs: Vital Signs Temp 98.1 F 04/08/22 04:01 Pulse 86 04/08/22 04:01 Resp 18 04/08/22 04:01 BP 108/67 04/08/22 04:01 Pulse Ox 96 04/08/22 04:01 FiO2 Intake & Output 04/07/22 04/08/22 04/08/22 18:59 06:59 18:59 Intake Total 440 100 Output Total 210 Balance 230 100 Intake: IV 440 Intake, IV Titration 100 Amount Cefepime 2 gm In Sodium 100 Chloride 0.9% 100 ml @ 25 mls/hr IVPB Q12H [facility] Rx# :[id number] Output: Urine 200 Estimated Blood Loss 10 Other: Voiding Method Toilet Toilet Toilet # Voids 3 3 - Exam General appearance: The patient is alert, oriented, appears in no acute distress. HET: Head is normocephalic and atraumatic. Pupils are equal and reactive. Neck: Supple without lymphadenopathy. Trachea midline. Extremities: Bilateral lower extremities with edema. Left lower extremity with William wrap in place. Good capillary refill. Neurological: No focal deficits. Strength and sensation are grossly intact. - Labs CBC & Chem 7: 04/07/22 09:49 04/08/22 05:42 Labs: Abnormal Lab Results - Last 24 Hours (Table) 04/07/22 04/07/22 04/07/22 Range/Units 09:43 09:43 09:43 Sodium (137-145) mmol/L Potassium (3.5-5.1) mmol/L Creatinine (0.66-1.25) mg/dL Calcium (8.4-10.2) mg/dL Lactate Dehydrogenase 449 H (120-246) U/L Total Protein (6.3-8.2) g/dL Total Protein (PEP) 5.3 L (6.2-8.2) g/dL Albumin (3.5-5.0) g/dL Vitamin B12 1029.0 H (200.0-944.0) pg/mL IgG 274.0 L (700.0-1600.0) mg/dL Complement C3 224.0 H (80.0-207.0) mg/dL 04/08/22 Range/Units 05:42 Sodium 134 L (137-145) mmol/L Potassium 3.3 L (3.5-5.1) mmol/L Creatinine 2.02 H (0.66-1.25) mg/dL Calcium 7.7 L (8.4-10.2) mg/dL Lactate Dehydrogenase (120-246) U/L Total Protein 4.4 L (6.3-8.2) g/dL Total Protein (PEP) (6.2-8.2) g/dL Albumin 2.4 L (3.5-5.0) g/dL Vitamin B12 (200.0-944.0) pg/mL IgG (700.0-1600.0) mg/dL Complement C3 (80.0-207.0) mg/dL Microbiology - Last 24 Hours (Table) 04/05/22 22:00 Blood Culture - Preliminary Blood No Growth after 48 hours 04/05/22 22:40 Blood Culture - Preliminary Blood No Growth after 48 hours Assessment and Plan Assessment: 1. Left foot abscess status post incision and drainage 2. Cellulitis of the left lower extremity 3. Multiple myeloma 4. History of pulmonary embolism on Eliquis 5. Peripheral neuropathy 6. History of coronary artery disease status post stent 7. History hypertension 8. History hyperlipidemia 9. Obesity Plan: 1. Continue IV antibiotics per recommendations from infectious disease 2. Patient is status post I&D with deep tissue cultures pending. 3. Patient may have heart healthy diet 4. May resume Eliquis 5. Daily dressing changes with iodoform, 4 x 4 and Kerlix Thank you for this consultation, we will sign off at this time. The impression and plan of care has been dictated as directed. Dr. Cuppari I performed a history and examination of this patient, discussed the same with the dictator. I agree with the dictator's note ,documented as a scribe. Any additional findings or plans will be noted.
[2022-04-08 11:24] LABS: Basophils # (A) 0.01 X 10*3/uL (0.00-0.10); Basophils % (A) 0.4 %; Eosinophils # (A) 0.09 X 10*3/uL (0.04-0.35); Eosinophils % (A) 3.6 %; HCT 25.5 % (39.6-50.0); HGB 7.7 g/dL (13.0-17.0); Lymphocytes # (A) 0.06 X 10*3/uL (0.90-5.00); Lymphocytes % (A) 2.4 %; MCH 29.1 pg (27.0-32.0); MCHC 30.2 g/dL (32.0-37.0); MCV 96.2 fL (80.0-97.0); Mean Platelet Volume 12.7 fL (9.5-12.2); Monocytes # (A) 0.36 X 10*3/uL (0.20-1.00); Monocytes % (A) 14.2 %; NRBC Per 100 WBC 0.8 /100 WBCS (0.0-0.0); Neutrophils # (A) 1.96 X 10*3/uL (1.80-7.70); Neutrophils % (A) 77.4 %; Platelet Count 73 X 10*3/uL (140-440); RBC 2.65 X 10*6/uL (4.40-5.60); RDW 20.8 % (11.5-14.5); WBC 2.53 X 10*3/uL (4.50-10.00)
[2022-04-08 11:57] LABS: Immature Platelet Fraction 12.6 % (1.1-6.1)
[2022-04-08] MEDS: APIXABAN 5 MG TAB PO SCH ×2 (11:58→21:46)
--- NOTE | 2022-04-08 12:21 | P.PN ---
Subjective Principal diagnosis: Left foot abscess and cellulitis This is a 67-year-old male history of multiple myeloma, pulmonary embolism who is admitted for evaluation of left foot cellulitis. Patient was discharged from our institution 3 days ago on antibiotic therapy. However he returns due to worsening swelling and redness in the left foot and lower part of his left leg. CT of the left lower extremity showing some swelling and likely abscess in the dorsum of the left foot. Started on vancomycin and cefepime with consultation to infectious diseases and podiatry. Interval history: Patient underwent incision and drainage on 04/08/22. Admitted postoperatively he is doing well he has no respiratory or GI complaints. Next and discussed with the patient and patient's son in the room, he is being having some long-standing lower back pain has been getting worse recently. No leg weakness no radiation to the legs. Received radiation to T12 without improvement. Objective - Vital Signs Vital signs: Vital Signs Temp 98.1 F 04/08/22 04:01 Pulse 86 04/08/22 04:01 Resp 18 04/08/22 04:01 BP 108/67 04/08/22 04:01 Pulse Ox 96 04/08/22 04:01 FiO2 Intake & Output 04/07/22 04/08/22 04/08/22 18:59 06:59 18:59 Intake Total 440 100 Output Total 210 Balance 230 100 Intake: IV 440 Intake, IV Titration 100 Amount Cefepime 2 gm In Sodium 100 Chloride 0.9% 100 ml @ 25 mls/hr IVPB Q12H [facility] Rx# :[id number] Output: Urine 200 Estimated Blood Loss 10 Other: Voiding Method Toilet Toilet Toilet # Voids 3 3 - Exam Awake alert oriented 3, no acute distress Head and neck: Anicteric sclera, extraocular movements intact, no facial asymmetry, oropharyngeal mucosa is moist without any lesions, neck is supple without rigidity, no neck masses or neck vein distention Heart: Regular rhythm and rate, S1, S2; no murmurs rubs or gallops Lungs: Breath sounds present bilateral, no wheezing, rhonchi or crackles Abdomen: Bowel sounds present throughout, abdomen is soft, nontender, nondistended, no involuntary guarding, no hernias or organomegaly, no flank tenderness Extremities: Right lower extremity appears normal with trace edema no erythema or tenderness Left lower extremity: Left foot is swollen, mostly dorsally with circular erythema and central area with complemental fluctuation; there is some tenderness with range of motion over the left ankle, there is a 1+ edema over the pineda area with possibility of abscess forming. - Labs CBC & Chem 7: 04/08/22 05:42 04/08/22 05:42 Labs: Abnormal Lab Results - Last 24 Hours (Table) 04/07/22 04/07/22 04/07/22 Range/Units 09:43 09:43 09:43 WBC (4.50-10.00) X 10*3/uL RBC (4.40-5.60) X 10*6/uL Hgb (13.0-17.0) g/dL Hct (39.6-50.0) % MCHC (32.0-37.0) g/dL RDW (11.5-14.5) % Plt Count (140-440) X 10*3/uL MPV (9.5-12.2) fL Absolute Nucleated RBC (0.00-0.00) X 10*3/uL Immature Gran # (0.00-0.04) X 10*3/uL Lymphocytes # (0.90-5.00) X 10*3/uL NRBC/100 WBC Diff (0.0-0.0) /100 WBCS Immature Plt Fraction (1.1-6.1) % Sodium (137-145) mmol/L Potassium (3.5-5.1) mmol/L Creatinine (0.66-1.25) mg/dL Calcium (8.4-10.2) mg/dL Lactate Dehydrogenase 449 H (120-246) U/L Total Protein (6.3-8.2) g/dL Total Protein (PEP) 5.3 L (6.2-8.2) g/dL Albumin (3.5-5.0) g/dL Vitamin B12 1029.0 H (200.0-944.0) pg/mL IgG 274.0 L (700.0-1600.0) mg/dL Complement C3 224.0 H (80.0-207.0) mg/dL 04/08/22 04/08/22 Range/Units 05:42 05:42 WBC 2.53 L (4.50-10.00) X 10*3/uL RBC 2.65 L (4.40-5.60) X 10*6/uL Hgb 7.7 L (13.0-17.0) g/dL Hct 25.5 L (39.6-50.0) % MCHC 30.2 L (32.0-37.0) g/dL RDW 20.8 H (11.5-14.5) % Plt Count 73 L (140-440) X 10*3/uL MPV 12.7 H (9.5-12.2) fL Absolute Nucleated RBC 0.02 H (0.00-0.00) X 10*3/uL Immature Gran # 0.05 H (0.00-0.04) X 10*3/uL Lymphocytes # 0.06 L (0.90-5.00) X 10*3/uL NRBC/100 WBC Diff 0.8 H (0.0-0.0) /100 WBCS Immature Plt Fraction 12.6 H (1.1-6.1) % Sodium 134 L (137-145) mmol/L Potassium 3.3 L (3.5-5.1) mmol/L Creatinine 2.02 H (0.66-1.25) mg/dL Calcium 7.7 L (8.4-10.2) mg/dL Lactate Dehydrogenase (120-246) U/L Total Protein 4.4 L (6.3-8.2) g/dL Total Protein (PEP) (6.2-8.2) g/dL Albumin 2.4 L (3.5-5.0) g/dL Vitamin B12 (200.0-944.0) pg/mL IgG (700.0-1600.0) mg/dL Complement C3 (80.0-207.0) mg/dL Microbiology - Last 24 Hours (Table) 04/05/22 22:00 Blood Culture - Preliminary Blood No Growth after 48 hours 04/05/22 22:40 Blood Culture - Preliminary Blood No Growth after 48 hours Assessment and Plan Assessment: #Left foot cellulitis and abscess In immunocompromised patient Localized infection, nonseptic nontoxic appearing Continue antibiotics per infectious disease, vancomycin and cefepime CT on the left lower extremity : Likely abscess in the left foot Incision and drainage with podiatry on 04/08/22 Wound cultures pending Blood cultures no growth to date #Multiple myeloma Following with hematology Currently undergoing chemotherapy Monitor blood counts, hematology consultation Continue prophylaxis with Acyclovir #CKD stage III Creatinine in the basilar range Avoid nephrotoxins Consultation with nephrology Needs diuresis when necessary #History of pulmonary embolism Chronically on Eliquis Venous Doppler 03/30: Negative for DVT Eliquis restarted postoperatively #Chronic pain syndrome On oxycodone and gabapentin This was confirmed with the patient and MAPS Continued and tolerating well #Acute on chronic anemia Postoperative Repeat hemoglobin this afternoon DVT prophylaxis: Sq Heparin and eventually will go back to his Eliquis Plan of care was discussed with the patient and patient's
[2022-04-08 14:07] LABS: Free Kappa Lt Chain Qnt, Serum 0.38 mg/dL (0.33-1.94); Free Lambda Lt Chain Qnt, Seru 1.14 mg/dL (0.57-2.63)
[2022-04-08 14:11] LABS: Albumin 2.52 g/dL (3.80-4.90); Gamma Globulin 0.24 g/dL (0.70-1.50)
[2022-04-08 14:48] LABS: C-ANCA <1:20 Titer (<1:20)
[2022-04-08 15:39] LABS: Anisocytosis Slight; HCT 25.6 % (39.0-53.0); Hypochromasia Slight; MCH 30.9 pg (25.0-35.0); MCHC 31.8 g/dL (31.0-37.0); MCV 96.9 fL (80.0-100.0); Macrocytosis Slight; Mean Platelet Volume 10.7; RBC 2.64 m/uL (4.30-5.90); RDW 19.3 % (11.5-15.5); WBC 2.1 k/uL (3.8-10.6)
[2022-04-08 16:06] LABS: HGB 8.1 gm/dL (13.0-17.5); Platelet Count 75 k/uL (150-450)
[2022-04-08 16:28] LABS: % Iron Saturation 21.43 (15.00-50.00)
--- NOTE | 2022-04-08 16:59 | P.PN ---
Subjective Progress Note Date: 04/08/22 Principal diagnosis: abscess drainage. Multiple myeloma on treatment. In follow-up today patient has had incision and drainage, lt lower extremity is wrapped, he is on antibiotics. He denies any current fever, no nausea or vomiting. He is interested in seeing if he is a candidate for kyphoplasty for low back pain for compression fractures. Immunoglobulin levels reviewed, rajat limon is a candidate for IVIG. Objective - Vital Signs Vital signs: Vital Signs Temp 98.4 F 04/08/22 12:50 Pulse 82 04/08/22 12:50 Resp 16 04/08/22 12:50 BP 114/76 04/08/22 12:50 Pulse Ox 99 04/08/22 12:50 FiO2 Intake & Output 04/07/22 04/08/22 04/08/22 18:59 06:59 18:59 Intake Total 440 100 Output Total 210 Balance 230 100 Intake: IV 440 Intake, IV Titration 100 Amount Cefepime 2 gm In Sodium 100 Chloride 0.9% 100 ml @ 25 mls/hr IVPB Q12H [facility] Rx# :[id number] Output: Urine 200 Estimated Blood Loss 10 Other: Voiding Method Toilet Toilet Toilet # Voids 3 3 - Constitutional General appearance: Present: average body habitus, cooperative, no acute distress - EENT Eyes: Present: anicteric sclerae, EOMI ENT: Present: hearing grossly normal - Respiratory Respiratory: bilateral: CTA - Cardiovascular Rhythm: regular Heart sounds: normal: S1, S2 Abnormal Heart Sounds: Absent: systolic murmur, diastolic murmur, rub, S3 Gallop, S4 Gallop, click, other - Peripheral edema leg Peripheral Edema: right: None, left: 1+ - Gastrointestinal General gastrointestinal: Present: normal bowel sounds, soft. Absent: absent bowel sounds, decreased bowel sounds, distended, hepatomegaly, hyperactive bowel sounds, organomegaly, rigid, scaphoid, splenomegaly, tenderness, umbilical hernia, ventral hernia - Neurologic Neurologic: Present: CNII-XII intact - Psychiatric Psychiatric: Present: A&O x's 3, appropriate affect, intact judgment & insight - Labs CBC & Chem 7: 04/08/22 14:56 04/08/22 05:42 Labs: Abnormal Lab Results - Last 24 Hours (Table) 04/07/22 04/08/22 04/08/22 Range/Units 09:43 05:42 05:42 WBC 2.53 L (4.50-10.00) X 10*3/uL RBC 2.65 L (4.40-5.60) X 10*6/uL Hgb 7.7 L (13.0-17.0) g/dL Hct 25.5 L (39.6-50.0) % MCHC 30.2 L (32.0-37.0) g/dL RDW 20.8 H (11.5-14.5) % Plt Count 73 L (140-440) X 10*3/uL MPV 12.7 H (9.5-12.2) fL Absolute Nucleated RBC 0.02 H (0.00-0.00) X 10*3/uL Immature Gran # 0.05 H (0.00-0.04) X 10*3/uL Lymphocytes # 0.06 L (0.90-5.00) X 10*3/uL NRBC/100 WBC Diff 0.8 H (0.0-0.0) /100 WBCS Immature Plt Fraction 12.6 H (1.1-6.1) % Sodium 134 L (137-145) mmol/L Potassium 3.3 L (3.5-5.1) mmol/L Creatinine 2.02 H (0.66-1.25) mg/dL Calcium 7.7 L (8.4-10.2) mg/dL Iron (65-175) ug/dL TIBC (228-460) ug/dL Transferrin (204.0-354.0) mg/dL Ferritin (22.0-322.0) ng/mL Total Protein 4.4 L (6.3-8.2) g/dL Total Protein (PEP) 5.3 L (6.2-8.2) g/dL Albumin 2.4 L (3.5-5.0) g/dL Albumin (PEP) 2.52 L (3.80-4.90) g/dL Pdedd-1-Wektyluit 0.61 H (0.10-0.40) g/dL Fjnpt-5-Ndwkwnzcz 1.10 H (0.60-1.00) g/dL Gamma Globulins 0.24 L (0.70-1.50) g/dL 04/08/22 04/08/22 Range/Units 05:42 14:56 WBC 2.1 L (4.50-10.00) X 10*3/uL RBC 2.64 L (4.40-5.60) X 10*6/uL Hgb 8.1 L D (13.0-17.0) g/dL Hct 25.6 L (39.6-50.0) % MCHC (32.0-37.0) g/dL RDW 19.3 H (11.5-14.5) % Plt Count 75 L (140-440) X 10*3/uL MPV (9.5-12.2) fL Absolute Nucleated RBC (0.00-0.00) X 10*3/uL Immature Gran # (0.00-0.04) X 10*3/uL Lymphocytes # (0.90-5.00) X 10*3/uL NRBC/100 WBC Diff (0.0-0.0) /100 WBCS Immature Plt Fraction (1.1-6.1) % Sodium (137-145) mmol/L Potassium (3.5-5.1) mmol/L Creatinine (0.66-1.25) mg/dL Calcium (8.4-10.2) mg/dL Iron 43 L (65-175) ug/dL TIBC 202 L (228-460) ug/dL Transferrin 144.0 L (204.0-354.0) mg/dL Ferritin 688.0 H (22.0-322.0) ng/mL Total Protein (6.3-8.2) g/dL Total Protein (PEP) (6.2-8.2) g/dL Albumin (3.5-5.0) g/dL Albumin (PEP) (3.80-4.90) g/dL Wmzwn-3-Evowhidpc (0.10-0.40) g/dL Vdals-5-Fwiozblgi (0.60-1.00) g/dL Gamma Globulins (0.70-1.50) g/dL Microbiology - Last 24 Hours (Table) 04/07/22 14:51 Anaerobic Culture - Preliminary Foot - Left 04/07/22 14:51 Gram Stain - Preliminary Foot - Left Wound Culture - Preliminary 04/07/22 14:52 Anaerobic Culture - Preliminary Leg - Left 04/07/22 14:52 Gram Stain - Preliminary Leg - Left Wound Culture - Preliminary 04/05/22 22:00 Blood Culture - Preliminary Blood No Growth after 48 hours 04/05/22 22:40 Blood Culture - Preliminary Blood No Growth after 48 hours Assessment and Plan (1) Cellulitis Current Visit: Yes Status: Acute Priority: High Code(s): L03.90 - CELLULITIS, UNSPECIFIED SNOMED Code(s): 231435151 (2) Multiple myeloma Current Visit: No Status: Chronic Priority: Medium Code(s): C90.00 - MULTIPLE MYELOMA NOT HAVING ACHIEVED REMISSION SNOMED Code(s): 728925174 Plan: Patient has had drainage of 2 abscess on the left lower extremity. He is on antibiotics. Defer management of the same. Hypogammaglobulinemia-did speak with Pharm.D. IVIG has been ordered. Discussed case with Radiation Oncologist. Radiation not felt to be modality that can be utilized for the patient's low back pain at this time since the area has been treated before and this last time there was no significant pain relief. Patient and family have inquired about kyphoplasty. I will send a message to the Primary Oncologist regarding the same. If it is an option we will consult Orthopedic Spine Surgeon.
[2022-04-08 22:10] LABS: Glucose,Whole Blood 123 mg/dL (70-110)
[2022-04-09] MEDS: HYDROmorphone 0.5 MG/0.5 ML SYRINGE IVP PRN ×3 (04:59→23:59)
[2022-04-09] MEDS: CEFEPIME 2 GM in SODIUM CHLORIDE 0.9% 100 ML IVPB SCH ×2 (04:59→17:18)
[2022-04-09 07:00] LABS: African American GFR (CKD) 35 (>60 ml/min/1.73 sqM); Anion Gap 6 mmol/L; Blood Urea Nitrogen 15 mg/dL (9-20); Calcium 8.1 mg/dL (8.4-10.2); Carbon Dioxide 26 mmol/L (22-30); Chloride 101 mmol/L (98-107); Glucose 101 mg/dL (74-99); Non-African American GFR(CKD) 30 (>60 ml/min/1.73 sqM); Potassium 3.1 mmol/L (3.5-5.1); Sodium 133 mmol/L (137-145)
--- NOTE | 2022-04-09 07:20 | P.PN ---
Subjective Progress Note Date: 04/08/22 Principal diagnosis: Left foot abscess and cellulitis Patient is a 67-year-old male presenting to the hospital with a fever and chills and left foot and leg pain swelling and redness has been diagnosed with a left foot abscess and cellulitis. Patient is status post surgical drainage of the abscess completed on 04/07/2022 On today's evaluation that is 04/08/2022, the patient remains to be afebrile, the patient pain to the left foot has decreased in intensity, patient denies having any chest pain or shortness of breath or cough no abdominal pain or diarrhea Objective - Vital Signs Vital signs: Vital Signs Temp 98.1 F 04/08/22 04:01 Pulse 86 04/08/22 04:01 Resp 18 04/08/22 04:01 BP 108/67 04/08/22 04:01 Pulse Ox 96 04/08/22 04:01 FiO2 Intake & Output 04/07/22 04/08/22 04/08/22 18:59 06:59 18:59 Intake Total 440 100 Output Total 210 Balance 230 100 Intake: IV 440 Intake, IV Titration 100 Amount Cefepime 2 gm In Sodium 100 Chloride 0.9% 100 ml @ 25 mls/hr IVPB Q12H [facility] Rx# :[id number] Output: Urine 200 Estimated Blood Loss 10 Other: Voiding Method Toilet Toilet # Voids 3 3 - Exam GENERAL DESCRIPTION: An elderly male lying in bed in no distress RESPIRATORY SYSTEM: Unlabored breathing , decreased breath sounds at bases HEART: S1 S2 regular rate and rhythm , ABDOMEN: Soft , no tenderness EXTREMITIES: Left leg and foot is currently No drainage on the dressing - Labs CBC & Chem 7: 04/08/22 14:56 04/09/22 05:54 Labs: Abnormal Lab Results - Last 24 Hours (Table) 04/07/22 04/07/22 04/07/22 Range/Units 05:59 09:43 09:43 WBC (3.8-10.6) k/uL RBC (4.30-5.90) m/uL Hgb (13.0-17.5) gm/dL Hct (39.0-53.0) % RDW (11.5-15.5) % Plt Count (150-450) k/uL Lymphocytes # (1.0-4.8) k/uL ESR 92 H (0-20) mm/Hr Sodium (137-145) mmol/L Potassium (3.5-5.1) mmol/L Creatinine (0.66-1.25) mg/dL Calcium (8.4-10.2) mg/dL Lactate Dehydrogenase 449 H (120-246) U/L Total Protein (6.3-8.2) g/dL Total Protein (PEP) 5.3 L (6.2-8.2) g/dL Albumin (3.5-5.0) g/dL Vitamin B12 1029.0 H (200.0-944.0) pg/mL IgG (700.0-1600.0) mg/dL Complement C3 224.0 H (80.0-207.0) mg/dL 04/07/22 04/07/22 04/08/22 Range/Units 09:43 09:49 05:42 WBC 3.1 L (3.8-10.6) k/uL RBC 3.16 L (4.30-5.90) m/uL Hgb 10.0 L (13.0-17.5) gm/dL Hct 30.8 L (39.0-53.0) % RDW 19.6 H (11.5-15.5) % Plt Count 104 L (150-450) k/uL Lymphocytes # 0.1 L (1.0-4.8) k/uL ESR (0-20) mm/Hr Sodium 134 L (137-145) mmol/L Potassium 3.3 L (3.5-5.1) mmol/L Creatinine 2.02 H (0.66-1.25) mg/dL Calcium 7.7 L (8.4-10.2) mg/dL Lactate Dehydrogenase (120-246) U/L Total Protein 4.4 L (6.3-8.2) g/dL Total Protein (PEP) (6.2-8.2) g/dL Albumin 2.4 L (3.5-5.0) g/dL Vitamin B12 (200.0-944.0) pg/mL IgG 274.0 L (700.0-1600.0) mg/dL Complement C3 (80.0-207.0) mg/dL Microbiology - Last 24 Hours (Table) 04/05/22 22:00 Blood Culture - Preliminary Blood No Growth after 48 hours 04/05/22 22:40 Blood Culture - Preliminary Blood No Growth after 48 hours Assessment and Plan (1) Cellulitis Current Visit: Yes Status: Acute Priority: High Code(s): L03.90 - CELLULITIS, UNSPECIFIED SNOMED Code(s): 483801000 Plan: 1patient presented to hospital with fever weakness increasing pain and swelling to the left foot in this patient recently treated for cellulitis CT at that time did not show any abscess and there is a question of a necrotizing infection however the patient was evaluated by orthopedic and recommended no surgical intervention patient now clinically has evidence of left foot abscess could be responsible for his recurrent symptoms. 2 CT of the left foot did shows evidence of abscess and vascular surgery has evaluated patient and status post drainage of the abscess on 04/07/2022 3patient to continue with the vancomycin and cefepime while waiting for the culture finalized and monitor clinical course closely Time with Patient: Less than 30
--- NOTE | 2022-04-09 08:04 | P.OP ---
Date of Procedure: 04/07/22 Preoperative Diagnosis: Left foot and lower leg abscess Left lower extremity cellulitis Postoperative Diagnosis: same Procedure(s) Performed: Incision and drainage of the left foot and lower leg abscess Anesthesia: MAC Surgeon: Toñito Ryder Estimated Blood Loss (ml): 10 Pathology: other (abscess cultures) Condition: stable Disposition: PACU Indications for Procedure: 67 year old male with history of left lower extremity cellulitis currently on antibiotics for left foot and lower leg abscess presents to the OR for incision and drainage. Operative Findings: large purulence from the dorsal foot and lower leg Description of Procedure: After written and informed consent was obtained and all risks, benefits and complications were described the patient was brought to the operative suite and laid in a supine position. The area of the left lower extremity and foot were prepped and draped in the usual sterile fashion after appropriate anesthetic was performed. A timeout was performed in usual fashion. An incision was created overlying the dorsal aspect of the foot with a 15 blade scalpel and large amount of purulence was expressed. Cultures were obtained. The loculations were fractured with a stat and wound was irrigated. Another small incision was created overlying the lower leg lateral abscess and again purulence was expressed. This was also cultured. The areas were then packed with Iodoform gauze and leg was wrapped. The patient tolerated the procedure well.
[2022-04-09 09:13] LABS: HGB 8.1 g/dL (13.0-17.0); MCH 29.5 pg (27.0-32.0); MCHC 31.2 g/dL (32.0-37.0); MCV 94.5 fL (80.0-97.0); Mean Platelet Volume 12.1 fL (9.5-12.2); Platelet Count 87 X 10*3/uL (140-440); RBC 2.75 X 10*6/uL (4.40-5.60); RDW 20.6 % (11.5-14.5); WBC 2.55 X 10*3/uL (4.50-10.00)
[2022-04-09] MEDS: MULTIVITAMINS, THERA 1 EACH TAB PO SCH (09:18)
[2022-04-09] MEDS: GABAPENTIN 300 MG CAP PO SCH ×4 (09:18→20:20)
[2022-04-09] MEDS: VANCOMYCIN 1,500 MG in SODIUM CHLORIDE 0.9% 250 ML IVPB SCH (09:18)
[2022-04-09] MEDS: APIXABAN 5 MG TAB PO SCH ×2 (09:18→20:20)
[2022-04-09] MEDS: ACYCLOVIR 200 MG CAP PO SCH ×2 (09:18→20:20)
[2022-04-09] MEDS ORDERED: SODIUM FERRIC GLUCONAT-SUCROSE 125 MG in SODIUM CHLORIDE 0.9% 100 ML IVPB ONE (10:48)
[2022-04-09] MEDS ORDERED: POTASSIUM CHLORIDE ER 20 MEQ TAB.ER PO STA (10:48)
--- NOTE | 2022-04-09 10:52 | P.PN ---
Subjective Patient is seen in follow-up for acute kidney injury and chronic kidney disease. Renal function slightly worse. Creatinine 2.19 today. Off diuretics. Edema improved. Hemodynamically stable. No vomiting or diarrhea. Admits to good urine output. Vital signs are stable. General: No acute distress. HEENT: Head exam is unremarkable. LUNGS: Breath sounds decreased. HEART: Rate and Rhythm are regular. ABDOMEN: Soft, no distention. EXTREMITITES: Trace edema right lower extremity. Left lower extremity wrapped. Objective - Vital Signs Vital signs: Vital Signs Temp 99 F 04/09/22 04:57 Pulse 91 04/09/22 04:57 Resp 16 04/09/22 04:57 BP 110/70 04/09/22 04:57 Pulse Ox 96 04/09/22 04:57 FiO2 Intake & Output 04/08/22 04/09/22 04/09/22 18:59 06:59 18:59 Intake Total 100 Balance 100 Intake: Intake, IV Titration 100 Amount Cefepime 2 gm In Sodium 100 Chloride 0.9% 100 ml @ 25 mls/hr IVPB Q12H [facility] Rx# :[id number] Other: Voiding Method Toilet Toilet Urinal # Voids 2 - Labs CBC & Chem 7: 04/09/22 05:54 04/09/22 05:54 Labs: Abnormal Lab Results - Last 24 Hours (Table) 04/07/22 04/08/22 04/08/22 Range/Units 09:43 05:42 05:42 WBC 2.53 L (4.50-10.00) X 10*3/uL RBC 2.65 L (4.40-5.60) X 10*6/uL Hgb 7.7 L (13.0-17.0) g/dL Hct 25.5 L (39.6-50.0) % MCHC 30.2 L (32.0-37.0) g/dL RDW 20.8 H (11.5-14.5) % Plt Count 73 L (140-440) X 10*3/uL MPV 12.7 H (9.5-12.2) fL Absolute Nucleated RBC 0.02 H (0.00-0.00) X 10*3/uL Immature Gran # 0.05 H (0.00-0.04) X 10*3/uL Lymphocytes # 0.06 L (0.90-5.00) X 10*3/uL NRBC/100 WBC Diff 0.8 H (0.0-0.0) /100 WBCS Immature Plt Fraction 12.6 H (1.1-6.1) % Sodium (137-145) mmol/L Potassium (3.5-5.1) mmol/L Creatinine (0.66-1.25) mg/dL Glucose (74-99) mg/dL POC Glucose (mg/dL) (70-110) mg/dL Calcium (8.4-10.2) mg/dL Iron 43 L (65-175) ug/dL TIBC 202 L (228-460) ug/dL Transferrin 144.0 L (204.0-354.0) mg/dL Ferritin 688.0 H (22.0-322.0) ng/mL Albumin (PEP) 2.52 L (3.80-4.90) g/dL Hdffz-9-Msvchamji 0.61 H (0.10-0.40) g/dL Qnvjl-6-Lykydrauc 1.10 H (0.60-1.00) g/dL Gamma Globulins 0.24 L (0.70-1.50) g/dL 04/08/22 04/08/22 04/09/22 Range/Units 14:56 22:09 05:54 WBC 2.1 L 2.55 L (4.50-10.00) X 10*3/uL RBC 2.64 L 2.75 L (4.40-5.60) X 10*6/uL Hgb 8.1 L D 8.1 L (13.0-17.0) g/dL Hct 25.6 L 26.0 L (39.6-50.0) % MCHC 31.2 L (32.0-37.0) g/dL RDW 19.3 H 20.6 H (11.5-14.5) % Plt Count 75 L 87 L (140-440) X 10*3/uL MPV (9.5-12.2) fL Absolute Nucleated RBC 0.05 H (0.00-0.00) X 10*3/uL Immature Gran # (0.00-0.04) X 10*3/uL Lymphocytes # (0.90-5.00) X 10*3/uL NRBC/100 WBC Diff 2.0 H (0.0-0.0) /100 WBCS Immature Plt Fraction (1.1-6.1) % Sodium (137-145) mmol/L Potassium (3.5-5.1) mmol/L Creatinine (0.66-1.25) mg/dL Glucose (74-99) mg/dL POC Glucose (mg/dL) 123 H (70-110) mg/dL Calcium (8.4-10.2) mg/dL Iron (65-175) ug/dL TIBC (228-460) ug/dL Transferrin (204.0-354.0) mg/dL Ferritin (22.0-322.0) ng/mL Albumin (PEP) (3.80-4.90) g/dL Xynxa-1-Hdwyqolxz (0.10-0.40) g/dL Pcdjh-3-Pvpwhdhfa (0.60-1.00) g/dL Gamma Globulins (0.70-1.50) g/dL 04/09/22 Range/Units 05:54 WBC (4.50-10.00) X 10*3/uL RBC (4.40-5.60) X 10*6/uL Hgb (13.0-17.0) g/dL Hct (39.6-50.0) % MCHC (32.0-37.0) g/dL RDW (11.5-14.5) % Plt Count (140-440) X 10*3/uL MPV (9.5-12.2) fL Absolute Nucleated RBC (0.00-0.00) X 10*3/uL Immature Gran # (0.00-0.04) X 10*3/uL Lymphocytes # (0.90-5.00) X 10*3/uL NRBC/100 WBC Diff (0.0-0.0) /100 WBCS Immature Plt Fraction (1.1-6.1) % Sodium 133 L (137-145) mmol/L Potassium 3.1 L (3.5-5.1) mmol/L Creatinine 2.19 H (0.66-1.25) mg/dL Glucose 101 H (74-99) mg/dL POC Glucose (mg/dL) (70-110) mg/dL Calcium 8.1 L (8.4-10.2) mg/dL Iron (65-175) ug/dL TIBC (228-460) ug/dL Transferrin (204.0-354.0) mg/dL Ferritin (22.0-322.0) ng/mL Albumin (PEP) (3.80-4.90) g/dL Syjso-0-Iurntdghu (0.10-0.40) g/dL Dmrap-9-Sslsgxbxm (0.60-1.00) g/dL Gamma Globulins (0.70-1.50) g/dL Microbiology - Last 24 Hours (Table) 04/05/22 22:40 Blood Culture - Preliminary Blood No Growth after 72 hours 04/05/22 22:00 Blood Culture - Preliminary Blood No Growth after 72 hours 04/07/22 14:51 Anaerobic Culture - Preliminary Foot - Left 04/07/22 14:51 Gram Stain - Preliminary Foot - Left Wound Culture - Preliminary 04/07/22 14:52 Anaerobic Culture - Preliminary Leg - Left 04/07/22 14:52 Gram Stain - Preliminary Leg - Left Wound Culture - Preliminary Assessment and Plan Plan: Assessment: 1. Acute kidney injury secondary to ATN secondary to infection and diuresis. Creatinine 1.83 on admission - 2.19 today. Kidney ultrasound from earlier this month showed no evidence of hydronephrosis. 2. Chronic kidney disease stage IIIB with baseline creatinine near 1.5. 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 UPC 3.2 g. 3. Left lower extremity cellulitis with possible abscess on antibiotics. Scheduled for incision and drainage 04/07/2022. 4. Multiple myeloma maintained on chemotherapy outpatient. 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 5. Anemia of chronic kidney disease. Mild iron deficiency noted. Also with thrombocytopenia possibly related to therapy for myeloma. 6. Lower extremity edema. Improved with diuresis. 7. Hypokalemia secondary to diuresis and poor intake. 8. Hypomagnesemia secondary to diuresis. Replaced. Better. Plan: Encouraged oral intake. Continue to hold diuretics. Replace potassium. Follow-up serologies. Negative so far except kappa/lambda ratio 0.33. I will give him a dose of IV iron today. Avoid nephrotoxins. Monitor vancomycin levels. Dose to be adjusted for renal function. Discussed with the patient that he may need kidney biopsy for definitive diagnosis.
--- NOTE | 2022-04-09 11:03 | P.CNOR ---
History of Present Illness - [facility] Consult date: 04/09/22 Requesting physician: Celestina Moreno Consult reason: other (evaluate to see if pt candidate for kyphoplasty) History of present illness: Patient is a 67 -year-old male with a past medical history of multiple myeloma, hypertension, hyperlipidemia, PE who presented to the emergency department at [facility] on 04/06 with worsening left lower extremity pain, swelling and erythema. Patient was in the hospital about 2 weeks ago and was discharged home with Keflex after being admitted for cellulitis of the left lower leg. Patient says once he got home after being discharged on 04/03 for a couple day, he began to develop fevers and increased left lower extremity pain/redness. Pat rodolfo currently rates the pain the leg as 2/10. Patient did have surgery for incisiona and drainage of abscess on left foot and on the left lower extremity by Dr. Ryder on 04/07. Patient was seen at bedside this morning with William bandage/dressing on left lower extremity extending from proximal calf to digits in left foot. Patient says he feels that the swelling has decreased significantly since the surgery was performed on his left lower extremity. Patient also notes decreased pain in the left leg since surgery. Orthopedics has been consulted for possibility of kyphoplasty. Patient was seen at bedside this morning resting comfortably in the semirecumbent position with at bedside throughout the encounter. Patient says he has been having low back pain for several years now. Patient feels that his low back pain has progressed over the past year or so. Patient denies any falls/traumas recently. Patient says he usually ambulates using a walker. Patient says he is not really use a back brace before. Patient denies any radiation of his low back pain. He says it stays localized to low back. Patient notes that the pain does increase in intensity when he changes positions especially from sitting to standing. Patient says he has had previous orthopedic surgery in the form of right rotator cuff surgery and bilateral knee arthroscopies. MRI of thoracic and lumbar spine performed on 03/31 does show multiple vertebra with compression fractures as well as potential lytic lesions at T12 and L1. There is also evident areas of neuroforaminal stenosis and degenerative disc disease throughout the spine. Patient denies any previous orthopedic spine surgery. Patient was diagnosed with multiple myeloma in 2015 and does follow with Dr. Browning. Patient's last chemotherapy treatment was 03/24. Patient denies any saddle anesthesia/loss of bowel/bladder control. Patient denies chest pain, fever, shortness breath, nausea, vomiting, change in vision. 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, gait dysfunction-uses walker, bilateral pedal/ankle edema, PE 08/2019, chronic low back pain, past vertebral fractures, minimal CAD, shingelles twice, past R heel wound, elevated lipids in the past, History of Any Multi-Drug Resistant Organisms: None Reported Past Surgical History: Heart Catheterization, Orthopedic Surgery Additional Past Surgical History / Comment(s): excision of uvular lesion(benign) 2009, colonoscopy, dave knee arthroscopy, rt rotator cuff sx, moles removed from back(benign), bone marrow aspiration/bx, stem cell transplant 2015, Past Anesthesia/Blood Transfusion Reactions: No Reported Reaction Past Psychological History: No Psychological Hx Reported Smoking Status: Never smoker Past Alcohol Use History: None Reported Past Drug Use History: None Reported - Past Family History Father Family Medical History: Renal Disease, Vascular Disorder Additional Family Medical History / Comment(s): aaa. Father is . Mother Family Medical History: Hypertension Additional Family Medical History / Comment(s): mom is healthy Medications and Allergies Home Medications Medication Instructions Recorded Confirmed Type Famotidine [Pepcid] 20 mg PO DAILY PRN 04/15/19 04/05/22 History Gabapentin [Neurontin] 300 mg PO TID 04/15/19 04/05/22 History dexAMETHasone 8 mg PO DIRECTED 04/15/19 04/05/22 History Acyclovir 400 mg PO BID 08/24/19 04/05/22 History Pomalyst 3mg 3 mg PO DIRECTED 08/24/19 04/05/22 History Aspirin 81 mg PO DAILY #30 chewable 08/26/19 04/05/22 Rx Apixaban [Eliquis] 5 mg PO BID 10/03/19 04/05/22 History Nitroglycerin Sl Tabs [Nitrostat] 0.4 mg SUBLINGUAL Q5M PRN 10/03/19 04/05/22 History Calcium Carbonate/Vitamin D3 1 cap PO DAILY 01/10/20 04/05/22 History [Calcium 600-Vit D3 20 Mcg (800 Iu)] Potassium Chloride ER [K-Dur 20] 20 meq PO DAILY 01/10/20 04/05/22 History Furosemide [Lasix] 20 mg PO DAILY PRN 05/31/21 04/05/22 History Acetaminophen Tab [Tylenol] 650 mg PO Q6HR PRN tab 06/03/21 04/05/22 Rx Multivitamins, Thera [Multivitamin 1 tab PO DAILY 12/16/21 04/05/22 History (formulary)] oxyCODONE HCL [oxyCODONE HCL (IR)] 10 - 20 mg PO Q4H PRN 03/25/22 04/05/22 History Cephalexin [Keflex] 500 mg PO Q6HR 1 Days #40 cap 04/03/22 04/05/22 Rx Terbinafine 1% Cream [LamISIL] 1 applic TOPICAL TID 90 Days #15 gm 04/03/22 04/05/22 Rx Allergies Allergy/AdvReac Type Severity Reaction Status Date / Time sulfamethoxazole Allergy Rash/Hives Verified 04/05/22 21:45 [From Bactrim] trimethoprim [From Bactrim] Allergy Rash/Hives Verified 04/05/22 21:45 Physical Examination Inspection: William bandage/dressing present on left lower extremity extending from proximal calf to digits in left foot. Minimal swelling along the left lower extremity. Negative for any open fractures, significant ecchymosis/nodules. Sensation: Sensation is equal, symmetric, by intact throughout the upper and lower extremities. Palpation: Moderate TTP throughout the lumbar spine especially in the midline and paravertebral region. Nontender to palpation throughout rest exam Range of motion: Patient has full range of motion bilateral upper extremities. Patient has full range of motion and right lower extremity and also in left lower extremity hip flexion/extension and knee flexion/extension. Limited range of motion in left ankle dorsi/plantar flexion due to his bandage/dressing on LLE Motor: 5/5 in all major motor groups in bilateral upper extremities. 4+/5 in all motor groups in bilateral lower extremities. Neurovascular: Dorsalis pedis pulse intact, 2+ on the right foot. Radial pulses intact, 2+ bilaterally. Cap refill under 3 seconds in digits of the upper extremities. Special tests: Negative Homans; Negative clonus bilaterally; negative Caterina's bilaterally Results - Labs Labs: Abnormal Lab Results - Last 24 Hours (Table) 04/07/22 04/08/22 04/08/22 Range/Units 09:43 05:42 05:42 WBC 2.53 L (4.50-10.00) X 10*3/uL RBC 2.65 L (4.40-5.60) X 10*6/uL Hgb 7.7 L (13.0-17.0) g/dL Hct 25.5 L (39.6-50.0) % MCHC 30.2 L (32.0-37.0) g/dL RDW 20.8 H (11.5-14.5) % Plt Count 73 L (140-440) X 10*3/uL MPV 12.7 H (9.5-12.2) fL Absolute Nucleated RBC 0.02 H (0.00-0.00) X 10*3/uL Immature Gran # 0.05 H (0.00-0.04) X 10*3/uL Lymphocytes # 0.06 L (0.90-5.00) X 10*3/uL NRBC/100 WBC Diff 0.8 H (0.0-0.0) /100 WBCS Immature Plt Fraction 12.6 H (1.1-6.1) % Sodium (137-145) mmol/L Potassium (3.5-5.1) mmol/L Creatinine (0.66-1.25) mg/dL Glucose (74-99) mg/dL POC Glucose (mg/dL) (70-110) mg/dL Calcium (8.4-10.2) mg/dL Iron 43 L (65-175) ug/dL TIBC 202 L (228-460) ug/dL Transferrin 144.0 L (204.0-354.0) mg/dL Ferritin 688.0 H (22.0-322.0) ng/mL Albumin (PEP) 2.52 L (3.80-4.90) g/dL Cdjhw-9-Aiicorqdp 0.61 H (0.10-0.40) g/dL Ucsom-1-Ozthstjmk 1.10 H (0.60-1.00) g/dL Gamma Globulins 0.24 L (0.70-1.50) g/dL 04/08/22 04/08/22 04/09/22 Range/Units 14:56 22:09 05:54 WBC 2.1 L 2.55 L (4.50-10.00) X 10*3/uL RBC 2.64 L 2.75 L (4.40-5.60) X 10*6/uL Hgb 8.1 L D 8.1 L (13.0-17.0) g/dL Hct 25.6 L 26.0 L (39.6-50.0) % MCHC 31.2 L (32.0-37.0) g/dL RDW 19.3 H 20.6 H (11.5-14.5) % Plt Count 75 L 87 L (140-440) X 10*3/uL MPV (9.5-12.2) fL Absolute Nucleated RBC 0.05 H (0.00-0.00) X 10*3/uL Immature Gran # (0.00-0.04) X 10*3/uL Lymphocytes # (0.90-5.00) X 10*3/uL NRBC/100 WBC Diff 2.0 H (0.0-0.0) /100 WBCS Immature Plt Fraction (1.1-6.1) % Sodium (137-145) mmol/L Potassium (3.5-5.1) mmol/L Creatinine (0.66-1.25) mg/dL Glucose (74-99) mg/dL POC Glucose (mg/dL) 123 H (70-110) mg/dL Calcium (8.4-10.2) mg/dL Iron (65-175) ug/dL TIBC (228-460) ug/dL Transferrin (204.0-354.0) mg/dL Ferritin (22.0-322.0) ng/mL Albumin (PEP) (3.80-4.90) g/dL Waovc-1-Orrewbvcv (0.10-0.40) g/dL Pmyfi-6-Orklyhyen (0.60-1.00) g/dL Gamma Globulins (0.70-1.50) g/dL 04/09/22 Range/Units 05:54 WBC (4.50-10.00) X 10*3/uL RBC (4.40-5.60) X 10*6/uL Hgb (13.0-17.0) g/dL Hct (39.6-50.0) % MCHC (32.0-37.0) g/dL RDW (11.5-14.5) % Plt Count (140-440) X 10*3/uL MPV (9.5-12.2) fL Absolute Nucleated RBC (0.00-0.00) X 10*3/uL Immature Gran # (0.00-0.04) X 10*3/uL Lymphocytes # (0.90-5.00) X 10*3/uL NRBC/100 WBC Diff (0.0-0.0) /100 WBCS Immature Plt Fraction (1.1-6.1) % Sodium 133 L (137-145) mmol/L Potassium 3.1 L (3.5-5.1) mmol/L Creatinine 2.19 H (0.66-1.25) mg/dL Glucose 101 H (74-99) mg/dL POC Glucose (mg/dL) (70-110) mg/dL Calcium 8.1 L (8.4-10.2) mg/dL Iron (65-175) ug/dL TIBC (228-460) ug/dL Transferrin (204.0-354.0) mg/dL Ferritin (22.0-322.0) ng/mL Albumin (PEP) (3.80-4.90) g/dL Ydqur-1-Njmjudxcj (0.10-0.40) g/dL Xejco-3-Tkgtybmvy (0.60-1.00) g/dL Gamma Globulins (0.70-1.50) g/dL Microbiology - Last 24 Hours (Table) 04/05/22 22:40 Blood Culture - Preliminary Blood No Growth after 72 hours 04/05/22 22:00 Blood Culture - Preliminary Blood No Growth after 72 hours 04/07/22 14:51 Anaerobic Culture - Preliminary Foot - Left 04/07/22 14:51 Gram Stain - Preliminary Foot - Left Wound Culture - Preliminary 04/07/22 14:52 Anaerobic Culture - Preliminary Leg - Left 04/07/22 14:52 Gram Stain - Preliminary Leg - Left Wound Culture - Preliminary H & H 04/05/22 04/07/22 04/07/22 Range/Units 22:00 05:59 09:49 Hgb 10.1 L 8.8 L 10.0 L (13.0-17.5) gm/dL Hct 31.1 L 29.0 L 30.8 L (39.0-53.0) % 04/08/22 04/08/22 04/09/22 Range/Units 05:42 14:56 05:54 Hgb 7.7 L 8.1 L D 8.1 L (13.0-17.5) gm/dL Hct 25.5 L 25.6 L 26.0 L (39.0-53.0) % Coagulation 04/07/22 Range/Units 10:10 INR 1.0 (<1.2) Result Diagrams: 04/09/22 05:54 04/09/22 05:54 Assessment and Plan Assessment: 1. Degenerative disc disease; lumbar spine neuroforaminal stenosis; multiple vertebral compression fractures; vertebral body mass/lesion 2. Multiple myeloma 3. Multiple medical comorbidities Plan: 1. Degenerative disc disease; lumbar spine neuroforaminal stenosis; multiple vertebral compression fractures; vertebral body mass/lesion(s) - patient was seen at bedside this morning. I did discuss the findings of previous MRIs with my attending, Dr. Rubio. I then did discuss previous MRI findings with the patient and his at bedside. There are multiple vertebral compression fractures throughout the lower spine and these are chronic in nature. There is also suspicion for lytic lesions at T12 and L1. At this time we are not recomme nding any emergent orthopedic surgical intervention. We are recommending further intervention with dedicated CT scans of the thoracic and lumbar spine as well as lumbar spine MRI for further evaluation. We are recommending continued management of low back pain with pain medicine at this time. We will await results of computed tomography scan of thoracic and lumbar spine before proceeding with any potential orthopedic intervention. We will continue to follow patient while in hospital 2. Multiple myeloma - oncology following 3. Appreciate medical, nephrology, oncology, ID management 4. Pain management - oxycodone; Tylenol; gabapentin; Dilaudid only if necessary 5. DVT prophylaxis - Eliquis 6. GI ppx - Pepcid 7. PT/OT - WBAT w/walker and TLSO brace 8. Appreciate consult Time with Patient: Less than 30
[2022-04-09] MEDS ORDERED: IMMUNE GLOBULIN (GAMMAGARD) 30 GM in EMPTY BAG 1 BAG IV ONE (12:00)
--- NOTE | 2022-04-09 12:35 | CT ---
EXAMINATION TYPE: CT thor lumbar spine wo con DATE OF EXAM: 04/09/2022 COMPARISON: CT dated 02/11/2022 HISTORY: Fracture CT DLP: 1635.9 mGycm Automated exposure control for dose reduction was used. TECHNIQUE: Multiplanar CT scan of the thoracic and lumbar spine without IV contrast administration. FINDINGS: Diffuse osteopenia. Multiple variable-sized lucencies within the visualized bones, likely related to the known multiple myeloma. Vertebral body collapse and fractures as follows: -T7 upper endplate depression without significant retropulsion into the spinal canal, stable. -Complete collapse with sclerotic changes of T11 vertebral body with prominence of the posterior aspe ct into the spinal canal without significant bony spinal canal stenosis, stable. -Multiple fracture lines are seen within T12 vertebral body without significant height reduction or r etropulsion into the spinal canal, likely due to underlying multiple myeloma lesion. This is seen ext ending into the right pedicle of T12. The fractures are more apparent compared to January [address] scan. Surrounding paraspinal fat stranding/hematoma suggestive of acute fractures. -T1 vertebral body collapse with central high reduction without significant retropulsion into the spi nal canal, stable. -L2 lower endplate depression with central height reduction and minimal retropulsion inferiorly into the spinal canal, stable. -Minimal L3 upper endplate depression without retropulsion into the spinal canal, stable. -Mild anterior wedging of L4 vertebral body without retropulsion into the spinal canal, stable. -L5 vertebral body collapse with central height reduction and sclerotic changes without significant r etropulsion into the spinal canal, stable. Mild degenerative changes of the thoracic spine with opposing endplate osteophytosis. No significant thoracic central spinal canal stenosis or significant neuroforaminal stenosis. Multilevel lumbar disc disease, central spinal canal stenosis and neural foraminal stenosis are noted, most evident at L4-5 level. Scattered arterial atherosclerotic calcifications. No paraspinal lesion. IMPRESSION: Known multiple myeloma. Diffuse osteopenia. Multiple vertebral body collapse with suspected acute fra ctures of T12 vertebral body likely secondary to underlying multiple myeloma lesion as detailed above .
--- NOTE | 2022-04-09 19:24 | P.PN ---
Subjective Progress Note Date: 04/09/22 Status post incision and drainage, lt lower extremity is wrapped, he is on antibiotics. He denies any current fever, no nausea or vomiting. He is interested in seeing if he is a candidate for kyphoplasty for low back pain for compression fractures. Immunoglobulin levels reviewed, IVIG ordered Objective - Vital Signs Vital signs: Vital Signs Temp 98.1 F 04/09/22 12:30 Pulse 77 04/09/22 12:30 Resp 16 04/09/22 12:30 BP 132/77 04/09/22 12:30 Pulse Ox 98 04/09/22 12:30 FiO2 Intake & Output 04/09/22 04/09/22 04/10/22 06:59 18:59 06:59 Intake Total 100 148.167 Balance 100 148.167 Intake: Intake, IV Titration 100 148.167 Amount Cefepime 2 gm In Sodium 100 Chloride 0.9% 100 ml @ 25 mls/hr IVPB Q12H [facility] Rx# :[id number] Immune Globulin ( 148.167 Gammagard) 30 gm In Empty Bag 1 bag @ Per Protocol 35 mls/hr IV .Q8H35M ONE Rx#:[id number] Other: Voiding Method Toilet Toilet Urinal Urinal # Voids 3 - Exam - Constitutional General appearance: Present: average body habitus, cooperative, no acute distress - EENT Eyes: Present: anicteric sclerae, EOMI ENT: Present: hearing grossly normal - Respiratory Respiratory: bilateral: CTA - Cardiovascular Rhythm: regular Heart sounds: normal: S1, S2 Abnormal Heart Sounds: Absent: systolic murmur, diastolic murmur, rub, S3 Gallop, S4 Gallop, click, other - Peripheral edema leg Peripheral Edema: right: None, left: 1+ - Gastrointestinal General gastrointestinal: Present: normal bowel sounds, soft. Absent: absent bowel sounds, decreased bowel sounds, distended, hepatomegaly, hyperactive bowel sounds, organomegaly, rigid, scaphoid, splenomegaly, tenderness, umbilical hernia, ventral hernia - Neurologic Neurologic: Present: CNII-XII intact - Psychiatric Psychiatric: Present: A&O x's 3, appropriate affect, intact judgment & insight - Labs CBC & Chem 7: 04/09/22 05:54 04/09/22 05:54 Labs: Abnormal Lab Results - Last 24 Hours (Table) 04/08/22 04/09/22 04/09/22 Range/Units 22:09 05:54 05:54 WBC 2.55 L (4.50-10.00) X 10*3/uL RBC 2.75 L (4.40-5.60) X 10*6/uL Hgb 8.1 L (13.0-17.0) g/dL Hct 26.0 L (39.6-50.0) % MCHC 31.2 L (32.0-37.0) g/dL RDW 20.6 H (11.5-14.5) % Plt Count 87 L (140-440) X 10*3/uL Absolute Nucleated RBC 0.05 H (0.00-0.00) X 10*3/uL NRBC/100 WBC Diff 2.0 H (0.0-0.0) /100 WBCS Sodium 133 L (137-145) mmol/L Potassium 3.1 L (3.5-5.1) mmol/L Creatinine 2.19 H (0.66-1.25) mg/dL Glucose 101 H (74-99) mg/dL POC Glucose (mg/dL) 123 H (70-110) mg/dL Calcium 8.1 L (8.4-10.2) mg/dL Microbiology - Last 24 Hours (Table) 04/05/22 22:40 Blood Culture - Preliminary Blood No Growth after 72 hours 04/05/22 22:00 Blood Culture - Preliminary Blood No Growth after 72 hours Assessment and Plan Plan: Comments: X ray tib/fib reviewed Assessment and Plan (1) Left leg cellulitis Narrative/Plan: The patient had improved at the time of his recent discharge. However, there is still evidence of ongoing issue On examination there appeared to be focal areas of markedly increased tenderness. Last admission a CT of the lower extremity was ordered to check for deeper soft tissue infection including necrotizing fasciitis. as well as repeat Dopplers Current Visit: Yes Status: Acute Code(s): L03.116 - CELLULITIS OF LEFT LOWER LIMB SNOMED Code(s): 418985488 (2) Intractable back pain Narrative/Plan: - Last admission pain improved prior to discharge, was felt radiation was needing more time to kick in - Cord compression was ruled out with MRI Current Visit: Yes Status: Acute Code(s): M54.9 - DORSALGIA, UNSPECIFIED SNOMED Code(s): 120594337 (3) Multiple myeloma Narrative/Plan: the patient has recently been started on a new regimen. This is currently on hold. This can be resumed, once acute condition resolves in a satisfactory man ner. Current Visit: No Status: Chronic Priority: Medium Code(s): C90.00 - MULTIPLE MYELOMA NOT HAVING ACHIEVED REMISSION SNOMED Code(s): 352525895 Infectious work-up ordered ID ifollowing Status post I and D Ortho spine seen and recommended CT scans of the thoracic and lumbar spine as well as lumbar spine MRI for further evaluation. prior to surgical decision
--- NOTE | 2022-04-09 20:45 | P.PN ---
Subjective Progress Note Date: 04/09/22 (delayed charting seen at 1030) Patient is 67-year-old male with multiple myeloma currently undergoing chemotherapy with Dr. Mensah, prior pulmonary embolism, cellulitis, coronary artery disease, and dyslipidemia who presented to the ER with complaints of left lower extremity erythema and pain. Patient had been recently seen at the hospital and discharged on 04/03 with oral Keflex. On arrival to the ER he was febrile to 100.8, CRP was elevated at 20.9. He was admitted for treatment of left lower extremity cellulitis in the setting of chemotherapy and outpatient failure. He was started on cefepime and vancomycin. Infectious disease was consulted. Patient undewent I adn D of left foot abscess on 04/07 with vascular surgery. Nephrology was conuslted due to DUNCAN on CKD 3. Ortho spine was consulted due to worsening back pain. Imaging: Chest x-ray-no acute process CT left lower leg: Diffuse subcutaneous edema entire leg, focal area of fluid on the dorsum of the midfoot over the second metatarsal that could be an abscess Ct thorasic and lumbar spine: known MM, diffuse osteopenia, acute T12 vertebral body fracture likelt due to MM Patient seen and examined at bedside with family present. He complains of back pain, some involuntary muscle jerking his upper extremities, denies any nausea, vomiting, diarrhea. Pain is well-controlled on his foot. General: nontoxic, no distress, appears at stated age Derm: warm, dry, dressing in place over left foot Head: atraumatic, normocephalic, symmetric Eyes: EOMI, no lid lag, anicteric sclera Mouth: no lip lesion, mucus membranes moist Cardiovascular: S1S2 reg, no murmur, positive posterior tibial pulse bilateral, Lungs: CTA bilateral, no rhonchi, no rales , no accessory muscle use Abdominal: soft, nontender to palpation, no guarding, no appreciable organomegaly Ext: no gross muscle atrophy, no edema, no contractures Neuro: CN II-XI grossly intact, no focal neuro deficits, jerking movements noted of bilateral upper extremities Psych: Alert, oriented, appropriate affect Assessment/plan: Left lower extremity cellulitis with abscess - s/p I and D 04/07 - vanco/cefepime - wound care per vascular - ID recs - Await cultures Multiple myeloma Pancytopenia - oncology recs - CBC stable, continue to monitor DUNCAN on CKD 3 due to ATN Hyponatremia - nephro recs apprecaited: may need renal biopsy for definitive diagnosis - hold diuretics - monitor vanco levels closely. Chronic pain - continue on gabapentin, oxy, and Dilaudid. Chronic: Prior pulmonary embolism on Dilantin Dyslipidemia Gait dysfunction Chronic low back pain Coronary artery disease DVT prophylaxis: eliquis Discussed with: patient, family, nursing Anticipated discharge: pending clinical course Anticipated discharge place: home A total of 35 minutes was spent on the care of this complex patient more than 50% of the time was spent in counseling and care coordination. Objective - Vital Signs Vital signs: Vital Signs Temp 98.9 F 04/09/22 20:02 Pulse 86 04/09/22 20:02 Resp 16 04/09/22 20:02 BP 116/71 04/09/22 20:02 Pulse Ox 96 04/09/22 20:02 FiO2 Intake & Output 04/09/22 04/09/22 04/10/22 06:59 18:59 06:59 Intake Total 100 148.167 Balance 100 148.167 Intake: Intake, IV Titration 100 148.167 Amount Cefepime 2 gm In Sodium 100 Chloride 0.9% 100 ml @ 25 mls/hr IVPB Q12H [facility] Rx# :[id number] Immune Globulin ( 148.167 Gammagard) 30 gm In Empty Bag 1 bag @ Per Protocol 35 mls/hr IV .Q8H35M [facility] Rx#:[id number] Other: Voiding Method Toilet Toilet Urinal Urinal # Voids 3 - Labs CBC & Chem 7: 04/09/22 05:54 04/09/22 05:54 Labs: Abnormal Lab Results - Last 24 Hours (Table) 04/08/22 04/09/22 04/09/22 Range/Units 22:09 05:54 05:54 WBC 2.55 L (4.50-10.00) X 10*3/uL RBC 2.75 L (4.40-5.60) X 10*6/uL Hgb 8.1 L (13.0-17.0) g/dL Hct 26.0 L (39.6-50.0) % MCHC 31.2 L (32.0-37.0) g/dL RDW 20.6 H (11.5-14.5) % Plt Count 87 L (140-440) X 10*3/uL Absolute Nucleated RBC 0.05 H (0.00-0.00) X 10*3/uL NRBC/100 WBC Diff 2.0 H (0.0-0.0) /100 WBCS Sodium 133 L (137-145) mmol/L Potassium 3.1 L (3.5-5.1) mmol/L Creatinine 2.19 H (0.66-1.25) mg/dL Glucose 101 H (74-99) mg/dL POC Glucose (mg/dL) 123 H (70-110) mg/dL Calcium 8.1 L (8.4-10.2) mg/dL Microbiology - Last 24 Hours (Table) 04/05/22 22:40 Blood Culture - Preliminary Blood No Growth after 72 hours 04/05/22 22:00 Blood Culture - Preliminary Blood No Growth after 72 hours
[2022-04-10] MEDS: CEFEPIME 2 GM in SODIUM CHLORIDE 0.9% 100 ML IVPB SCH ×2 (04:45→15:39)
[2022-04-10] MEDS: HYDROmorphone 0.5 MG/0.5 ML SYRINGE IVP PRN ×2 (04:45→19:54)
[2022-04-10] MEDS: MULTIVITAMINS, THERA 1 EACH TAB PO SCH (07:58)
[2022-04-10] MEDS: ACYCLOVIR 200 MG CAP PO SCH ×2 (07:58→19:54)
[2022-04-10] MEDS: APIXABAN 5 MG TAB PO SCH ×2 (07:58→19:54)
[2022-04-10] MEDS: GABAPENTIN 300 MG CAP PO SCH ×3 (07:58→19:54)
--- NOTE | 2022-04-10 08:39 | P.PN ---
Subjective Patient is seen in follow-up for acute kidney injury and chronic kidney disease. Morning labs pending. Remains off diuretics. No vomiting or diarrhea. Admits to good urine output. Blood pressure stable. Vital signs are stable. General: No acute distress. HEENT: Head exam is unremarkable. LUNGS: Breath sounds decreased. HEART: Rate and Rhythm are regular. ABDOMEN: Soft, no distention. EXTREMITITES: No edema. Left lower extremity wrapped. Objective - Vital Signs Vital signs: Vital Signs Temp 98.7 F 04/10/22 08:25 Pulse 89 04/10/22 08:25 Resp 16 04/10/22 08:25 BP 110/73 04/10/22 04:51 Pulse Ox 96 04/10/22 08:25 FiO2 Intake & Output 04/09/22 04/10/22 04/10/22 18:59 06:59 18:59 Intake Total 148.167 100 Balance 148.167 100 Intake: Intake, IV Titration 148.167 100 Amount Cefepime 2 gm In Sodium 100 Chloride 0.9% 100 ml @ 25 mls/hr IVPB Q12H [facility] Rx# :[id number] Immune Globulin ( 148.167 Gammagard) 30 gm In Empty Bag 1 bag @ Per Protocol 35 mls/hr IV .Q8H35M [facility] Rx#:[id number] Other: Voiding Method Toilet Toilet Urinal Urinal # Voids 3 - Labs CBC & Chem 7: 04/09/22 05:54 04/09/22 05:54 Labs: Abnormal Lab Results - Last 24 Hours (Table) 04/09/22 Range/Units 05:54 WBC 2.55 L (4.50-10.00) X 10*3/uL RBC 2.75 L (4.40-5.60) X 10*6/uL Hgb 8.1 L (13.0-17.0) g/dL Hct 26.0 L (39.6-50.0) % MCHC 31.2 L (32.0-37.0) g/dL RDW 20.6 H (11.5-14.5) % Plt Count 87 L (140-440) X 10*3/uL Absolute Nucleated RBC 0.05 H (0.00-0.00) X 10*3/uL NRBC/100 WBC Diff 2.0 H (0.0-0.0) /100 WBCS Microbiology - Last 24 Hours (Table) 04/05/22 22:00 Blood Culture - Preliminary Blood No Growth after 96 hours 04/05/22 22:40 Blood Culture - Preliminary Blood No Growth after 96 hours Assessment and Plan Plan: Assessment: 1. Acute kidney injury secondary to ATN secondary to infection and diuresis. Creatinine 1.83 on admission - 2.19 yesterday. Kidney ultrasound from earlier this month showed no evidence of hydronephrosis. 2. Chronic kidney disease stage IIIB with baseline creatinine near 1.5. 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 UPC 3.2 g. 3. Left lower extremity cellulitis with possible abscess on antibiotics. S/p incision and drainage 04/07/2022. 4. Multiple myeloma maintained on chemotherapy outpatient. 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 5. Anemia of chronic kidney disease. Mild iron deficiency noted. Also with thrombocytopenia possibly related to therapy for myeloma. 6. Lower extremity edema. Improved with diuresis. 7. Hypokalemia secondary to diuresis and poor intake. Replaced. 8. Hypomagnesemia secondary to diuresis. Replaced. Better. Plan: Encouraged oral intake. Continue to hold diuretics. Follow-up serologies. Negative so far except kappa/lambda ratio 0.33; Serum IF - IgG lambda paraprotein. I will give him another dose of IV iron today. Avoid nephrotoxins. Monitor vancomycin levels. Dose to be adjusted for renal function. Discussed with the patient that he may need kidney biopsy for definitive diagnosis. F/u AM labs.
[2022-04-10] MEDS ORDERED: VANCOMYCIN TROUGH DUE 1 EACH MISC MISCELLANE ONE (09:00)
[2022-04-10 09:14] LABS: Anisocytosis Slight; HCT 26.7 % (39.0-53.0); HGB 8.6 gm/dL (13.0-17.5); Hypochromasia Moderate; MCH 31.6 pg (25.0-35.0); MCHC 32.1 g/dL (31.0-37.0); MCV 98.5 fL (80.0-100.0); Macrocytosis Moderate; RBC 2.71 m/uL (4.30-5.90); WBC 2.2 k/uL (3.8-10.6)
--- NOTE | 2022-04-10 10:18 | P.PN ---
Subjective Progress Note Date: 04/10/22 Principal diagnosis: Left foot abscess 59-year-old male who has had cellulitis over the last 2-1/2 weeks in and out of the hospital with IV antibiotics presented back with increased redness pain and swelling to the top of his left foot. He is postop day #3 for incision and drai nage of the left foot and left lower extremity. He is been afebrile. States he does have some discomfort in his left lower leg at the I&D site however his foot is feeling well. He has been up and ambulating. Infectious disease is following. Bone cultures are currently pending. Objective - Vital Signs Vital signs: Vital Signs Temp 98.7 F 04/10/22 08:25 Pulse 89 04/10/22 08:25 Resp 16 04/10/22 08:25 BP 110/73 04/10/22 04:51 Pulse Ox 96 04/10/22 08:25 FiO2 Intake & Output 04/09/22 04/10/22 04/10/22 18:59 06:59 18:59 Intake Total 148.167 100 118 Balance 148.167 100 118 Intake: Intake, IV Titration 148.167 100 Amount Cefepime 2 gm In Sodium 100 Chloride 0.9% 100 ml @ 25 mls/hr IVPB Q12H [facility] Rx# :[id number] Immune Globulin ( 148.167 Gammagard) 30 gm In Empty Bag 1 bag @ Per Protocol 35 mls/hr IV .Q8H35M [facility] Rx#:[id number] Oral 118 Other: Voiding Method Toilet Toilet Urinal Urinal # Voids 3 - Exam General appearance: The patient is alert, oriented, appears in no acute distress. HET: Head is normocephalic and atraumatic. Neck: Supple without lymphadenopathy. Trachea midline. Extremities: Bilateral lower extremities with edema. Left lower extremity incision site without any surrounding erythema with bloody drainage, packed with iodoform. Left foot redness improved, incision packed with iodoform. Neurological: No focal deficits. Alert and oriented 3. - Labs CBC & Chem 7: 04/10/22 09:01 04/09/22 05:54 Labs: Abnormal Lab Results - Last 24 Hours (Table) 04/10/22 Range/Units 09:01 WBC 2.2 L (3.8-10.6) k/uL RBC 2.71 L (4.30-5.90) m/uL Hgb 8.6 L (13.0-17.5) gm/dL Hct 26.7 L (39.0-53.0) % RDW 20.0 H (11.5-15.5) % Microbiology - Last 24 Hours (Table) 04/05/22 22:00 Blood Culture - Preliminary Blood No Growth after 96 hours 04/05/22 22:40 Blood Culture - Preliminary Blood No Growth after 96 hours Assessment and Plan Assessment: 1. Left foot abscess status post incision and drainage 2. Cellulitis of the left lower extremity 3. Multiple myeloma 4. History of pulmonary embolism on Eliquis 5. Peripheral neuropathy 6. History of coronary artery disease status post stent 7. History hypertension 8. History hyperlipidemia 9. Obesity Plan: 1. Continue IV antibiotics per recommendations from infectious disease 2. Patient is status post I&D with deep tissue cultures pending. 3. Patient may have heart healthy diet 4. May resume Eliquis 5. Daily dressing changes with iodoform, 4 x 4 and Kerlix Thank you for this consultation. The impression and plan of care has been dictated as directed. Dr. Cobb I performed a history and examination of this patient, discussed the same with the dictator. I agree with the dictator's note ,documented as a scribe. Any additional findings or plans will be noted.
[2022-04-10] MEDS: VANCOMYCIN 1,500 MG in SODIUM CHLORIDE 0.9% 250 ML IVPB SCH (10:22)
[2022-04-10 11:52] LABS: Platelet Count 92 k/uL (150-450)
--- NOTE | 2022-04-10 11:52 | MR ---
EXAMINATION TYPE: MR lumbar spine wo con DATE OF EXAM: 04/10/2022 COMPARISON: 04/09/2022 CT scan HISTORY: Fracture, pathological, Hx multiple myeloma. TECHNIQUE: T1 and T2 axial and sagittal images of the lumbar spine are submitted. FINDINGS: There is no abnormal signal seen within the visualized spinal cord or paraspinal soft tissu es. Simple appearing cyst within the left kidney. There is a complete compression fracture with retropulsion T11 only partially included in the field-o f-view on the axial images. Degree of retropulsion therefore is difficult to assess. Finding likely s ubacute to chronic. Diffuse marrow signal alteration is seen most likely on the basis of osteopenia. Posttherapeutic changes less likely but in the differential diagnosis. At T12 there is diffuse abnormal marrow alteration compatible suspected large intraosseous lesion ext ending into the right pedicle compatible with multiple myeloma or metastasis. Deformity of the right posterior paracentral region spinal canal may represent a degree of retropulsion versus disc material . This could be evaluated with postcontrast imaging. At L1-2 there is compression fractures of moderate degree involving L1 and L2 with a intraosseous les ion of L1 also suggestive of metastasis or multiple myeloma. No canal stenosis. Neural foramina remai n patent At L2-3 there is degenerative disc disease with diffuse disc bulging and mild effacement of thecal sa c. Facet arthropathy and ligamentum flavum result in borderline canal stenosis and bilateral foramina l protrusion. Chronic appearing anterior compression fracture of L2. Mild superior endplate compressi on fracture L3. At L3-4 there is degenerative disc disease with facet arthropathy and circumferential disc bulging wi th bilateral foraminal encroachment. Compression fracture appears chronic of L4 and mild superior end plate compression fracture of L3 appears chronic. At L4-5 there is diffuse disc bulging with facet arthropathy and ligamentum flavum hypertrophy. Moder ate to severe canal stenosis and bilateral foraminal encroachment. Endplate compression fracture of L 4 appears chronic and there is a chronic appearing moderate to severe compression fracture of L5. At L5-S1 there is as noted above without significant compression fracture of L5 with central disc bul ging and mild effacement of thecal sac. Mild bilateral foraminal protrusion. Hypertrophic facet arthr opathy noted. IMPRESSION: 1. Numerous compression fractures throughout the vertebral column as noted by CT scan. Large destruct savana lytic lesion suspected of T12. Cortical step-off posteriorly likely represents an initial finding s of pathologic fracture. This appears to be likely related to metastasis or multiple myeloma. 2. Numerous additional compression fractures most severe at T11. Also likely pathologic.
[2022-04-10] MEDS ORDERED: VANCOMYCIN 1,250 MG in SODIUM CHLORIDE 0.9% 250 ML IVPB SCH (12:00)
[2022-04-10 13:30] LABS: ALT 19 U/L (4-49); AST 25 U/L (17-59); African American GFR (CKD) 39 (>60 ml/min/1.73 sqM); Albumin 2.6 g/dL (3.5-5.0); Albumin/Globulin Ratio 0.9; Alkaline Phosphatase 66 U/L (38-126); Anion Gap 9 mmol/L; Blood Urea Nitrogen 14 mg/dL (9-20); Calcium 8.2 mg/dL (8.4-10.2); Carbon Dioxide 21 mmol/L (22-30); Chloride 106 mmol/L (98-107); Globulin 2.8 g/dL; Glucose 136 mg/dL (74-99); Non-African American GFR(CKD) 34 (>60 ml/min/1.73 sqM); Potassium 3.7 mmol/L (3.5-5.1); Sodium 136 mmol/L (137-145); Total Bilirubin 0.4 mg/dL (0.2-1.3); Total Protein 5.4 g/dL (6.3-8.2)
--- NOTE | 2022-04-10 13:32 | P.PN ---
Subjective Progress Note Date: 04/10/22 Principal diagnosis: Degenerative disc disease; lumbar spine neuroforaminal stenosis; multiple vertebral compression fractures; vertebral body mass/lesion Patient was seen at bedside this afternoon with son. Patient just got back from MRI of lumbar spine. He says he is still having increase in low back pain especially when he goes from sitting to standing. Patient denies increasing chest pain, shortness breath, nausea, vomiting, change in vision, loss of bowel/bladder control. Objective - Vital Signs Vital signs: Vital Signs Temp 98.7 F 04/10/22 12:56 Pulse 79 04/10/22 12:56 Resp 18 04/10/22 12:56 BP 142/89 04/10/22 12:56 Pulse Ox 98 04/10/22 12:56 FiO2 Intake & Output 04/09/22 04/10/22 04/10/22 18:59 06:59 18:59 Intake Total 148.167 100 118 Balance 148.167 100 118 Intake: Intake, IV Titration 148.167 100 Amount Cefepime 2 gm In Sodium 100 Chloride 0.9% 100 ml @ 25 mls/hr IVPB Q12H [facility] Rx# :[id number] Immune Globulin ( 148.167 Gammagard) 30 gm In Empty Bag 1 bag @ Per Protocol 35 mls/hr IV .Q8H35M [facility] Rx#:[id number] Oral 118 Other: Voiding Method Toilet Toilet Toilet Urinal Urinal Urinal # Voids 3 1 - Exam Inspection: William bandage/dressing present on left lower extremity extending from proximal calf to digits in left foot. Minimal swelling along the left lower extremity. Negative for any open fractures, significant ecchymosis/nodules. Sensation: Sensation is equal, symmetric, by intact throughout the upper and lower extremities. Palpation: Moderate TTP throughout the lumbar spine especially in the midline and paravertebral region. Nontender to palpation throughout rest exam Range of motion: Patient has full range of motion bilateral upper extremities. Patient has full range of motion and right lower extremity and also in left lower extremity hip flexion/extension and knee flexion/extension. Limited range of motion in left ankle dorsi/plantar flexion due to his bandage/dressing on LLE Motor: 5/5 in all major motor groups in bilateral upper extremities. 4+/5 in all motor groups in bilateral lower extremities. Neurovascular: Dorsalis pedis pulse intact, 2+ on the right foot. Radial pulses intact, 2+ bilaterally. Cap refill under 3 seconds in digits of the upper extremities. Special tests: Negative Homans; Negative clonus bilaterally; negative Caterina's bilaterally - Labs CBC & Chem 7: 04/10/22 09:01 04/09/22 05:54 Labs: Abnormal Lab Results - Last 24 Hours (Table) 04/10/22 Range/Units 09:01 WBC 2.2 L (3.8-10.6) k/uL RBC 2.71 L (4.30-5.90) m/uL Hgb 8.6 L (13.0-17.5) gm/dL Hct 26.7 L (39.0-53.0) % RDW 20.0 H (11.5-15.5) % Plt Count 92 L (150-450) k/uL Microbiology - Last 24 Hours (Table) 04/05/22 22:00 Blood Culture - Preliminary Blood No Growth after 96 hours 04/05/22 22:40 Blood Culture - Preliminary Blood No Growth after 96 hours Assessment and Plan Assessment: 1. Degenerative disc disease; lumbar spine neuroforaminal stenosis; multiple vertebral compression fractures; vertebral body mass/lesion 2. Multiple myeloma 3. Multiple medical comorbidities Plan: 1. Degenerative disc disease; lumbar spine neuroforaminal stenosis; multiple vertebral compression fractures; vertebral body mass/lesion(s) - patient was seen at bedside this afternoon. I did discuss the findings of spine CTs and MRI with my attending, Dr. Rubio. I then did discuss MRI findings with the patient and his son at bedside. There are multiple vertebral compression fractures throughout the lower spine and these are chronic in nature. There are lytic lesions at T12 and L1. At this time we are not recommending any emergent orthopedic surgical intervention. We are recommending continued management of low back pain with pain medicine at this time as well as TLSO brace. TLSO brace ordered. We will continue to follow patient while in hospital 2. Multiple myeloma - oncology following 3. Appreciate medical, nephrology, oncology, ID management 4. Pain management - oxycodone; Tylenol; gabapentin; Dilaudid only if necessary 5. DVT prophylaxis - Eliquis 6. GI ppx - Pepcid 7. PT/OT - WBAT w/walker and TLSO brace 8. Appreciate consult Time with Patient: Less than 30
--- NOTE | 2022-04-10 15:47 | P.PN ---
Subjective Progress Note Date: 04/10/22 (delayed charting seen at 0845) Patient is 67-year-old male with multiple myeloma currently undergoing chem otherapy with Dr. Mensah, prior pulmonary embolism, cellulitis, coronary artery disease, and dyslipidemia who presented to the ER with complaints of left lower extremity erythema and pain. Patient had been recently seen at the hospital and discharged on 04/03 with oral Keflex. On arrival to the ER he was febrile to 100.8, CRP was elevated at 20.9. He was admitted for treatment of left lower extremity cellulitis in the setting of chemotherapy and outpatient failure. He was started on cefepime and vancomycin. Infectious disease was consulted. Patient undewent I adn D of left foot abscess on 04/07 with vascular surgery. Nephrology was conuslted due to DUNCAN on CKD 3. Ortho spine was consulted due to worsening back pain. He was Degenerative disc disease, lumbar spine neuroforaminal stenosis and multiple vertebral compression fractures with worst one at T 12 Imaging: Chest x-ray-no acute process CT left lower leg: Diffuse subcutaneous edema entire leg, focal area of fluid on the dorsum of the midfoot over the second metatarsal that could be an abscess Ct thorasic and lumbar spine: known MM, diffuse osteopenia, acute T12 vertebral body fracture likelt due to MM Lumbar spine MRI: T12 pathologic fracture. Patient seen and examined at bedside with family present. He continues to have some jerking of bilateral upper extremities. He denies any weakness, numbness or tingling. Denies any nausea or vomiting. Pain is well-controlled on his foot. General: nontoxic, no distress, appears at stated age Derm: warm, dry, dressing in place over left foot Head: atraumatic, normocephalic, symmetric Eyes: EOMI, no lid lag, anicteric sclera Mouth: no lip lesion, mucus membranes moist Cardiovascular: S1S2 reg, no murmur, positive posterior tibial pulse bilateral, Lungs: CTA bilateral, no rhonchi, no rales , no accessory muscle use Abdominal: soft, nontender to palpation, no guarding, no appreciable organomegaly Ext: no gross muscle atrophy, no edema, no contractures Neuro: CN II-XI grossly intact, no focal neuro deficits, jerking movements noted of bilateral upper extremities Psych: Alert, oriented, appropriate affect Assessment/plan:ct Left lower extremity cellulitis with abscess - s/p I and D 04/07 - vanco/cefepime - wound care per vascular - ID recs - Await cultures Multiple myeloma Pancytopenia - oncology recs - CBC stable, continue to monitor T 12 fracture, multiple vertebral fractures due to MM, lumbar spine neuroforaminal stenosis - D/W Dr. Rubio plan at this time due to infection is LSO brace and pain control. D/W Dr. Miranda will need 2 weeks of IV ABX. DUNCAN on CKD 3 due to ATN Hyponatremia - nephro recs appreciated: may need renal biopsy for definitive diagnosis - hold diuretics - monitor vanco levels closely. Chronic pain - continue on gabapentin, oxy, and Dilaudid. Chronic: Prior pulmonary embolism on Dilantin Dyslipidemia Gait dysfunction Chronic low back pain Coronary artery disease DVT prophylaxis: ra[place]ale Discussed with: patient, family, nursing Anticipated discharge: pending clinical course Anticipated discharge place: home A total of 35 minutes was spent on the care of this complex patient more than 50% of the time was spent in counseling and care coordination. Active Medications Acetaminophen (Acetaminophen Tab 325 Mg Tab) 650 mg PO Q6HR PRN PRN Reason: Mild Pain or Fever > 100.5 Last Admin: 04/06/22 20:31 Dose: 650 mg Acyclovir (Acyclovir 200 Mg Cap) 400 mg PO BID [facility] Last Admin: 04/10/22 07:58 Dose: 400 mg Apixaban (Apixaban 5 Mg Tab) 5 mg PO BID [facility]; Protocol Last Admin: 04/10/22 07:58 Dose: 5 mg Famotidine (Famotidine 20 Mg Tab) 20 mg PO DAILY PRN PRN Reason: Heartburn Gabapentin (Gabapentin 300 Mg Cap) 300 mg PO TID [facility] Last Admin: 04/10/22 07:58 Dose: 300 mg Hydromorphone HCl (Hydromorphone 0.5 Mg/0.5 Ml Syringe) 0.5 mg IVP Q4HR PRN PRN Reason: Pain Scale 8 to 10 Last Admin: 04/10/22 04:45 Dose: 0.5 mg Cefepime HCl 2 gm/ Sodium (Chloride) 100 mls @ 25 mls/hr IVPB Q12H [facility]; Protocol Last Admin: 04/10/22 04:45 Dose: 25 mls/hr Vancomycin HCl 1,250 mg/ (Sodium Chloride) 250 mls @ 125 mls/hr IVPB Q24H [facility] Last Admin: 04/10/22 12:54 Dose: 125 mls/hr Multivitamins (Multivitamins, Thera 1 Each Tab) 1 each PO DAILY [facility] Last Admin: 04/10/22 07:58 Dose: 1 each Oxycodone HCl (Oxycodone Hcl 5 Mg Tab) 5 mg PO Q6H PRN PRN Reason: Pain Scale 8 to 10 Last Admin: 04/09/22 12:17 Dose: 5 mg Objective - Vital Signs Vital signs: Vital Signs Temp 98.7 F 04/10/22 12:56 Pulse 79 04/10/22 12:56 Resp 18 04/10/22 12:56 BP 142/89 04/10/22 12:56 Pulse Ox 98 04/10/22 12:56 FiO2 Intake & Output 04/09/22 04/10/22 04/10/22 18:59 06:59 18:59 Intake Total 148.167 100 118 Balance 148.167 100 118 Intake: Intake, IV Titration 148.167 100 Amount Cefepime 2 gm In Sodium 100 Chloride 0.9% 100 ml @ 25 mls/hr IVPB Q12H [facility] Rx# :[id number] Immune Globulin ( 148.167 Gammagard) 30 gm In Empty Bag 1 bag @ Per Protocol 35 mls/hr IV .Q8H35M ONE Rx#:[id number] Oral 118 Other: Voiding Method Toilet Toilet Toilet Urinal Urinal Urinal # Voids 3 1 - Labs CBC & Chem 7: 04/10/22 09:01 04/10/22 09:01 Labs: Abnormal Lab Results - Last 24 Hours (Table) 04/10/22 04/10/22 Range/Units 09:01 09:01 WBC 2.2 L (3.8-10.6) k/uL RBC 2.71 L (4.30-5.90) m/uL Hgb 8.6 L (13.0-17.5) gm/dL Hct 26.7 L (39.0-53.0) % RDW 20.0 H (11.5-15.5) % Plt Count 92 L (150-450) k/uL Sodium 136 L (137-145) mmol/L Carbon Dioxide 21 L (22-30) mmol/L Creatinine 1.98 H (0.66-1.25) mg/dL Glucose 136 H (74-99) mg/dL Calcium 8.2 L (8.4-10.2) mg/dL Total Protein 5.4 L (6.3-8.2) g/dL Albumin 2.6 L (3.5-5.0) g/dL Microbiology - Last 24 Hours (Table) 04/05/22 22:00 Blood Culture - Preliminary Blood No Growth after 96 hours 04/05/22 22:40 Blood Culture - Preliminary Blood No Growth after 96 hours
[2022-04-10 20:27] LABS: Glucose,Whole Blood 161 mg/dL (70-110)
--- NOTE | 2022-04-10 21:33 | P.PN ---
Subjective Progress Note Date: 04/10/22 MRI no cord, siliar to prior with marked spinal disease Objective - Vital Signs Vital signs: Vital Signs Temp 98.7 F 04/10/22 08:25 Pulse 89 04/10/22 08:25 Resp 16 04/10/22 08:25 BP 110/73 04/10/22 04:51 Pulse Ox 96 04/10/22 08:25 FiO2 Intake & Output 04/09/22 04/10/22 04/10/22 18:59 06:59 18:59 Intake Total 148.167 100 118 Balance 148.167 100 118 Intake: Intake, IV Titration 148.167 100 Amount Cefepime 2 gm In Sodium 100 Chloride 0.9% 100 ml @ 25 mls/hr IVPB Q12H [facility] Rx# :[id number] Immune Globulin ( 148.167 Gammagard) 30 gm In Empty Bag 1 bag @ Per Protocol 35 mls/hr IV .Q8H35M ONE Rx#:[id number] Oral 118 Other: Voiding Method Toilet Toilet Toilet Urinal Urinal Urinal # Voids 3 1 - Exam - Constitutional General appearance: Present: average body habitus, cooperative, no acute distress - EENT Eyes: Present: anicteric sclerae, EOMI ENT: Present: hearing grossly normal - Respiratory Respiratory: bilateral: CTA - Cardiovascular Rhythm: regular Heart sounds: normal: S1, S2 Abnormal Heart Sounds: Absent: systolic murmur, diastolic murmur, rub, S3 Gallop, S4 Gallop, click, other - Peripheral edema leg Peripheral Edema: right: None, left: 1+ - Gastrointestinal General gastrointestinal: Present: normal bowel sounds, soft. Absent: absent bowel sounds, decreased bowel sounds, distended, hepatomegaly, hyperactive bowel sounds, organomegaly, rigid, scaphoid, splenomegaly, tenderness, umbilical hernia, ventral hernia - Neurologic Neurologic: Present: CNII-XII intact - Psychiatric Psychiatric: Present: A&O x's 3, appropriate affect, intact judgment & insight - Labs CBC & Chem 7: 04/10/22 09:01 04/10/22 09:01 Labs: Abnormal Lab Results - Last 24 Hours (Table) 04/10/22 Range/Units 09:01 WBC 2.2 L (3.8-10.6) k/uL RBC 2.71 L (4.30-5.90) m/uL Hgb 8.6 L (13.0-17.5) gm/dL Hct 26.7 L (39.0-53.0) % RDW 20.0 H (11.5-15.5) % Plt Count 92 L (150-450) k/uL Microbiology - Last 24 Hours (Table) 04/05/22 22:00 Blood Culture - Preliminary Blood No Growth after 96 hours 04/05/22 22:40 Blood Culture - Preliminary Blood No Growth after 96 hours Assessment and Plan Plan: Comments: X ray tib/fib reviewed Assessment and Plan (1) Left leg cellulitis Narrative/Plan: The patient had improved at the time of his recent discharge. However, there is still evidence of ongoing issue On examination there appeared to be focal areas of markedly increased tenderness. Last admission a CT of the lower extremity was ordered to check for deeper soft tissue infection including necrotizing fasciitis. as well as repeat Dopplers Current Visit: Yes Status: Acute Code(s): L03.116 - CELLULITIS OF LEFT LOWER LIMB SNOMED Code(s): 892870235 (2) Intractable back pain Narrative/Plan: - Last admission pain improved prior to discharge, was felt radiation was needing more time to kick in - Cord compression was ruled out with MRI Current Visit: Yes Status: Acute Code(s): M54.9 - DORSALGIA, UNSPECIFIED SNOMED Code(s): 454554246 (3) Multiple myeloma Narrative/Plan: the patient has recently been started on a new regimen. This is currently on hold. This can be resumed, once acute condition resolves in a satisfactory manner. Current Visit: No Status: Chronic Priority: Medium Code(s): C90.00 - MULTIPLE MYELOMA NOT HAVING ACHIEVED REMISSION SNOMED Code(s): 662466270 Infectious work-up ordered ID ifollowing Status post I and D Ortho spine seen and recommended CT scans of the thoracic and lumbar spine as well as lumbar spine MRI for further evaluation. prior to surgical decision Discussed with primary team and plan for treatment and clearance of infection prior to surgical intervention
--- NOTE | 2022-04-10 23:35 | P.PN ---
Subjective Progress Note Date: 04/09/22 Principal diagnosis: Left foot abscess and cellulitis Patient is a 67-year-old male presenting to the hospital with a fever and chills and left foot and leg pain swelling and redness has been diagnosed with a left foot abscess and cellulitis. Patient is status post surgical drainage of the abscess completed on 04/07/2022 On today's evaluation that is 04/09/2022, the patient continues to be afebrile, the patient pain to the left foot has decreased in intensity, patient denies chest pain or shortness of breath or cough no abdominal pain or diarrhea Objective - Vital Signs Vital signs: Vital Signs Temp 98.1 F 04/09/22 12:30 Pulse 77 04/09/22 12:30 Resp 16 04/09/22 12:30 BP 132/77 04/09/22 12:30 Pulse Ox 98 04/09/22 12:30 FiO2 Intake & Output 04/08/22 04/09/22 04/09/22 18:59 06:59 18:59 Intake Total 100 Balance 100 Intake: Intake, IV Titration 100 Amount Cefepime 2 gm In Sodium 100 Chloride 0.9% 100 ml @ 25 mls/hr IVPB Q12H [facility] Rx# :[id number] Other: Voiding Method Toilet Toilet Toilet Urinal Urinal # Voids 2 - Exam GENERAL DESCRIPTION: An elderly male lying in bed in no distress RESPIRATORY SYSTEM: Unlabored breathing , decreased breath sounds at bases HEART: S1 S2 regular rate and rhythm , ABDOMEN: Soft , no tenderness EXTREMITIES: Left leg and foot is currently No drainage on the dressing - Labs CBC & Chem 7: 04/10/22 09:01 04/10/22 09:01 Labs: Abnormal Lab Results - Last 24 Hours (Table) 04/07/22 04/08/22 04/08/22 Range/Units 09:43 05:42 14:56 WBC 2.1 L (3.8-10.6) k/uL RBC 2.64 L (4.30-5.90) m/uL Hgb 8.1 L D (13.0-17.5) gm/dL Hct 25.6 L (39.0-53.0) % MCHC (32.0-37.0) g/dL RDW 19.3 H (11.5-15.5) % Plt Count 75 L (150-450) k/uL Absolute Nucleated RBC (0.00-0.00) X 10*3/uL NRBC/100 WBC Diff (0.0-0.0) /100 WBCS Sodium (137-145) mmol/L Potassium (3.5-5.1) mmol/L Creatinine (0.66-1.25) mg/dL Glucose (74-99) mg/dL POC Glucose (mg/dL) (70-110) mg/dL Calcium (8.4-10.2) mg/dL Iron 43 L (65-175) ug/dL TIBC 202 L (228-460) ug/dL Transferrin 144.0 L (204.0-354.0) mg/dL Ferritin 688.0 H (22.0-322.0) ng/mL Albumin (PEP) 2.52 L (3.80-4.90) g/dL Vehkb-9-Hjvsmapbw 0.61 H (0.10-0.40) g/dL Zoutm-7-Zvlslepkc 1.10 H (0.60-1.00) g/dL Gamma Globulins 0.24 L (0.70-1.50) g/dL 04/08/22 04/09/22 04/09/22 Range/Units 22:09 05:54 05:54 WBC 2.55 L (3.8-10.6) k/uL RBC 2.75 L (4.30-5.90) m/uL Hgb 8.1 L (13.0-17.5) gm/dL Hct 26.0 L (39.0-53.0) % MCHC 31.2 L (32.0-37.0) g/dL RDW 20.6 H (11.5-15.5) % Plt Count 87 L (150-450) k/uL Absolute Nucleated RBC 0.05 H (0.00-0.00) X 10*3/uL NRBC/100 WBC Diff 2.0 H (0.0-0.0) /100 WBCS Sodium 133 L (137-145) mmol/L Potassium 3.1 L (3.5-5.1) mmol/L Creatinine 2.19 H (0.66-1.25) mg/dL Glucose 101 H (74-99) mg/dL POC Glucose (mg/dL) 123 H (70-110) mg/dL Calcium 8.1 L (8.4-10.2) mg/dL Iron (65-175) ug/dL TIBC (228-460) ug/dL Transferrin (204.0-354.0) mg/dL Ferritin (22.0-322.0) ng/mL Albumin (PEP) (3.80-4.90) g/dL Wpudi-9-Nkfniarol (0.10-0.40) g/dL Gbowb-4-Ixrnbtloq (0.60-1.00) g/dL Gamma Globulins (0.70-1.50) g/dL Microbiology - Last 24 Hours (Table) 04/05/22 22:40 Blood Culture - Preliminary Blood No Growth after 72 hours 04/05/22 22:00 Blood Culture - Preliminary Blood No Growth after 72 hours 04/07/22 14:51 Anaerobic Culture - Preliminary Foot - Left 04/07/22 14:51 Gram Stain - Preliminary Foot - Left Wound Culture - Preliminary 04/07/22 14:52 Anaerobic Culture - Preliminary Leg - Left 04/07/22 14:52 Gram Stain - Preliminary Leg - Left Wound Culture - Preliminary Assessment and Plan (1) Cellulitis Current Visit: Yes Status: Acute Priority: High Code(s): L03.90 - CELLU LITIS, UNSPECIFIED SNOMED Code(s): 921866701 Plan: 1patient presented to hospital with fever weakness increasing pain and swelling to the left foot in this patient recently treated for cellulitis CT at that time did not show any abscess and there is a question of a necrotizing infection however the patient was evaluated by orthopedic and recommended no surgical intervention patient now clinically has evidence of left foot abscess could be responsible for his recurrent symptoms. 2 CT of the left foot did shows evidence of abscess and vascular surgery has evaluated patient and status post drainage of the abscess on 04/07/2022 with a culture is currently pending 3patient to continue with the vancomycin and cefepime while waiting for the culture finalized and continue supportive care Time with Patient: Less than 30
--- NOTE | 2022-04-10 23:37 | P.PN ---
Subjective Progress Note Date: 04/10/22 Principal diagnosis: Left foot abscess and cellulitis Patient is a 67-year-old male presenting to the hospital with a fever and chills and left foot and leg pain swelling and redness has been diagnosed with a left foot abscess and cellulitis. Patient is status post surgical drainage of the abscess completed on 04/07/2022 On today's evaluation that is 04/10/2022, the patient denies any fever or chills, the patient denies any worsening pain to the left foot or left leg, patient denies chest pain or shortness of breath or cough no abdominal pain or diarrhea Objective - Vital Signs Vital signs: Vital Signs Temp 98.7 F 04/10/22 12:56 Pulse 79 04/10/22 12:56 Resp 18 04/10/22 12:56 BP 142/89 04/10/22 12:56 Pulse Ox 98 04/10/22 12:56 FiO2 Intake & Output 04/09/22 04/10/22 04/10/22 18:59 06:59 18:59 Intake Total 148.167 100 118 Balance 148.167 100 118 Intake: Intake, IV Titration 148.167 100 Amount Cefepime 2 gm In Sodium 100 Chloride 0.9% 100 ml @ 25 mls/hr IVPB Q12H [facility] Rx# :[id number] Immune Globulin ( 148.167 Gammagard) 30 gm In Empty Bag 1 bag @ Per Protocol 35 mls/hr IV .Q8H35M ONE Rx#:[id number] Oral 118 Other: Voiding Method Toilet Toilet Toilet Urinal Urinal Urinal # Voids 3 1 - Exam GENERAL DESCRIPTION: An elderly male lying in bed in no distress RESPIRATORY SYSTEM: Unlabored breathing , decreased breath sounds at bases HEART: S1 S2 regular rate and rhythm , ABDOMEN: Soft , no tenderness EXTREMITIES: Left leg and foot is currently No drainage on the dressing - Labs CBC & Chem 7: 04/10/22 09:01 04/10/22 09:01 Labs: Abnormal Lab Results - Last 24 Hours (Table) 04/10/22 04/10/22 Range/Units 09:01 09:01 WBC 2.2 L (3.8-10.6) k/uL RBC 2.71 L (4.30-5.90) m/uL Hgb 8.6 L (13.0-17.5) gm/dL Hct 26.7 L (39.0-53.0) % RDW 20.0 H (11.5-15.5) % Plt Count 92 L (150-450) k/uL Sodium 136 L (137-145) mmol/L Carbon Dioxide 21 L (22-30) mmol/L Creatinine 1.98 H (0.66-1.25) mg/dL Glucose 136 H (74-99) mg/dL Calcium 8.2 L (8.4-10.2) mg/dL Total Protein 5.4 L (6.3-8.2) g/dL Albumin 2.6 L (3.5-5.0) g/dL Microbiology - Last 24 Hours (Table) 04/05/22 22:00 Blood Culture - Preliminary Blood No Growth after 96 hours 04/05/22 22:40 Blood Culture - Preliminary Blood No Growth after 96 hours Assessment and Plan (1) Cellulitis Current Visit: Yes Status: Acute Priority: High Code(s): L03.90 - CELLULITIS, UNSPECIFIED SNOMED Code(s): 933846309 Plan: 1patient presented to hospital with fever weakness increasing pain and swelling to the left foot in this patient recently treated for cellulitis CT at that time did not show any abscess and there is a question of a necrotizing infection however the patient was evaluated by orthopedic and recommended no surgical intervention patient now clinically has evidence of left foot abscess could be responsible for his recurrent symptoms. 2 CT of the left foot did shows evidence of abscess and the patient is status post drainage of the abscess on 04/07/2022 however culture are still pending 3patient is currently being treated with the vancomycin and cefepime with the discharge antibiotics on the basis of culture and at least 2 weeks of IV antibiotic therapy this was discussed with the admitting physician Time with Patient: Less than 30
[2022-04-11] MEDS: CEFEPIME 2 GM in SODIUM CHLORIDE 0.9% 100 ML IVPB SCH (05:06)
[2022-04-11 09:04] LABS: Basophils # (A) 0.01 X 10*3/uL (0.00-0.10); Basophils % (A) 0.4 %; Eosinophils # (A) 0.07 X 10*3/uL (0.04-0.35); Eosinophils % (A) 2.9 %; HCT 25.7 % (39.6-50.0); HGB 7.9 g/dL (13.0-17.0); Immature Grans, Automated 4.5 %; Lymphocytes # (A) 0.12 X 10*3/uL (0.90-5.00); Lymphocytes % (A) 4.9 %; MCH 29.6 pg (27.0-32.0); MCHC 30.7 g/dL (32.0-37.0); MCV 96.3 fL (80.0-97.0); Mean Platelet Volume 11.4 fL (9.5-12.2); Monocytes # (A) 0.51 X 10*3/uL (0.20-1.00); Monocytes % (A) 20.9 %; NRBC Per 100 WBC 3.3 /100 WBCS (0.0-0.0); Neutrophils # (A) 1.62 X 10*3/uL (1.80-7.70); Neutrophils % (A) 66.4 %; Platelet Count 86 X 10*3/uL (140-440); RBC 2.67 X 10*6/uL (4.40-5.60); RDW 20.4 % (11.5-14.5); WBC 2.44 X 10*3/uL (4.50-10.00)
--- NOTE | 2022-04-11 09:15 | P.PN ---
Subjective Patient is seen in follow-up for acute kidney injury and chronic kidney disease. Creatinine 1.98 yesterday. Remains off diuretics. No vomiting or diarrhea. Admits to good urine output. Blood pressure stable. No active complaints except feels weak. MRI done yesterday showed multiple compression fractures as well as a large destructive lytic lesion at T12. Vital signs are stable. General: No acute distress. HEENT: Head exam is unremarkable. LUNGS: Breath sounds decreased. HEART: Rate and Rhythm are regular. ABDOMEN: Soft, no distention. EXTREMITITES: No edema. Left lower extremity wrapped. Objective - Vital Signs Vital signs: Vital Signs Temp 98.5 F 04/11/22 04:38 Pulse 78 04/11/22 04:38 Resp 18 04/11/22 04:38 BP 143/84 04/11/22 04:38 Pulse Ox 96 04/11/22 04:38 FiO2 Intake & Output 04/10/22 04/11/22 04/11/22 18:59 06:59 18:59 Intake Total 118 100 Balance 118 100 Intake: Intake, IV Titration 100 Amount Cefepime 2 gm In Sodium 100 Chloride 0.9% 100 ml @ 25 mls/hr IVPB Q12H [facility] Rx# :[id number] Oral 118 Other: Voiding Method Toilet Urinal Urinal # Voids 1 - Labs CBC & Chem 7: 04/11/22 06:38 04/10/22 09:01 Labs: Abnormal Lab Results - Last 24 Hours (Table) 04/10/22 04/10/22 04/10/22 Range/Units 09:01 09:01 20:25 WBC 2.2 L (3.8-10.6) k/uL RBC 2.71 L (4.30-5.90) m/uL Hgb 8.6 L (13.0-17.5) gm/dL Hct 26.7 L (39.0-53.0) % MCHC (32.0-37.0) g/dL RDW 20.0 H (11.5-15.5) % Plt Count 92 L (150-450) k/uL Absolute Nucleated RBC (0.00-0.00) X 10*3/uL Immature Gran # (0.00-0.04) X 10*3/uL Neutrophils # (1.80-7.70) X 10*3/uL Lymphocytes # (0.90-5.00) X 10*3/uL NRBC/100 WBC Diff (0.0-0.0) /100 WBCS Sodium 136 L (137-145) mmol/L Carbon Dioxide 21 L (22-30) mmol/L Creatinine 1.98 H (0.66-1.25) mg/dL Glucose 136 H (74-99) mg/dL POC Glucose (mg/dL) 161 H (70-110) mg/dL Calcium 8.2 L (8.4-10.2) mg/dL Total Protein 5.4 L (6.3-8.2) g/dL Albumin 2.6 L (3.5-5.0) g/dL 04/11/22 Range/Units 06:38 WBC 2.44 L (3.8-10.6) k/uL RBC 2.67 L (4.30-5.90) m/uL Hgb 7.9 L (13.0-17.5) gm/dL Hct 25.7 L (39.0-53.0) % MCHC 30.7 L (32.0-37.0) g/dL RDW 20.4 H (11.5-15.5) % Plt Count 86 L (150-450) k/uL Absolute Nucleated RBC 0.08 H (0.00-0.00) X 10*3/uL Immature Gran # 0.11 H (0.00-0.04) X 10*3/uL Neutrophils # 1.62 L (1.80-7.70) X 10*3/uL Lymphocytes # 0.12 L (0.90-5.00) X 10*3/uL NRBC/100 WBC Diff 3.3 H (0.0-0.0) /100 WBCS Sodium (137-145) mmol/L Carbon Dioxide (22-30) mmol/L Creatinine (0.66-1.25) mg/dL Glucose (74-99) mg/dL POC Glucose (mg/dL) (70-110) mg/dL Calcium (8.4-10.2) mg/dL Total Protein (6.3-8.2) g/dL Albumin (3.5-5.0) g/dL Microbiology - Last 24 Hours (Table) 06/18/22 22:40 Blood Culture - Preliminary Blood No Growth after 120 hours 04/05/22 22:00 Blood Culture - Preliminary Blood No Growth after 120 hours Assessment and Plan Plan: Assessment: 1. Acute kidney injury secondary to ATN secondary to infection and diuresis. Creatinine 1.98 yesterday. Kidney ultrasound from earlier this month showed no evidence of hydronephrosis. 2. Chronic kidney disease stage IIIB with baseline creatinine near 1.5. Etiology is myeloma kidney. UPC 3.2 g. 3. Left lower extremity cellulitis with possible abscess on antibiotics. S/p incision and drainage 04/07/2022. 4. Multiple myeloma maintained on chemotherapy outpatient. 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 Computed tomography scan showed multiple compression fr actures as well as large destructive lytic lesion at level of T12. 5. Anemia of chronic kidney disease. Mild iron deficiency noted - status post IV iron. Also with thrombocytopenia possibly related to therapy for myeloma. 6. Lower extremity edema. Status post diuresis. Improved. 7. Hypokalemia secondary to diuresis and poor intake. Replaced. 8. Hypomagnesemia secondary to diuresis. Replaced. Better. Plan: Encouraged oral intake. Continue to hold diuretics. 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 Avoid nephrotoxins. Monitor vancomycin levels. Dose to be adjusted for renal function. Discussed with the patient that he may need kidney biopsy for definitive diagnosis in future. F/u AM labs.
[2022-04-11] MEDS: ACYCLOVIR 200 MG CAP PO SCH ×2 (09:43→22:12)
[2022-04-11] MEDS: GABAPENTIN 300 MG CAP PO SCH ×3 (09:43→22:12)
[2022-04-11] MEDS: MULTIVITAMINS, THERA 1 EACH TAB PO SCH (09:43)
[2022-04-11] MEDS: APIXABAN 5 MG TAB PO SCH ×2 (09:43→22:12)
[2022-04-11] MEDS ORDERED: ACETAMINOPHEN IV (For NPO) 1,000 MG in EMPTY BAG 1 BAG IVPB ONE (10:19)
--- NOTE | 2022-04-11 10:25 | P.PN ---
Subjective Progress Note Date: 04/11/22 Principal diagnosis: Degenerative disc disease; lumbar spine neuroforaminal stenosis; multiple vertebral compression fractures; vertebral body mass/lesion -abscess LLE Patient was seen at bedside this morning with at bedside during encounter. Patient is very lethargic/drowsy throughout encounter and gives most of updates. Patient says he is still having low back pain. Patient's says he has not had anything to eat yet today and has not been up out of bed. Patient denies increasing chest pain, shortness breath, nausea, vomiting, change in vision, loss of bowel/bladder control. Objective - Vital Signs Vital signs: Vital Signs Temp 98.5 F 04/11/22 04:38 Pulse 78 04/11/22 04:38 Resp 18 04/11/22 04:38 BP 143/84 04/11/22 04:38 Pulse Ox 96 04/11/22 04:38 FiO2 Intake & Output 04/10/22 04/11/22 04/11/22 18:59 06:59 18:59 Intake Total 118 100 Balance 118 100 Intake: Intake, IV Titration 100 Amount Cefepime 2 gm In Sodium 100 Chloride 0.9% 100 ml @ 25 mls/hr IVPB Q12H [facility] Rx# :[id number] Oral 118 Other: Voiding Method Toilet Urinal Urinal # Voids 1 - Exam Inspection: William bandage/dressing present on left lower extremity extending from proximal calf to digits in left foot. Minimal swelling along the left lower extremity. Negative for any open fractures, significant ecchymosis/nodules. Sensation: Sensation is equal, symmetric, by intact throughout the upper and lower extremities. Palpation: Moderate TTP throughout the lumbar spine especially in the midline and paravertebral region. Nontender to palpation throughout rest exam Range of motion: Patient has full range of motion bilateral upper extremities. Patient has full range of motion and right lower extremity and also in left lower extremity hip flexion/extension and knee flexion/extension. Limited range of motion in left ankle dorsi/plantar flexion due to his bandage/dressing on LLE Motor: 5/5 in all major motor groups in bilateral upper extremities. 4+/5 in al l motor groups in bilateral lower extremities. Neurovascular: Dorsalis pedis pulse intact, 2+ on the right foot. Radial pulses intact, 2+ bilaterally. Cap refill under 3 seconds in digits of the upper extremities. Special tests: Negative Homans; Negative clonus bilaterally; negative Caterina's bilaterally - Labs CBC & Chem 7: 04/11/22 06:38 04/10/22 09:01 Labs: Abnormal Lab Results - Last 24 Hours (Table) 04/10/22 04/10/22 04/10/22 Range/Units 09:01 09:01 20:25 WBC (4.50-10.00) X 10*3/uL RBC (4.40-5.60) X 10*6/uL Hgb (13.0-17.0) g/dL Hct (39.6-50.0) % MCHC (32.0-37.0) g/dL RDW (11.5-14.5) % Plt Count 92 L (150-450) k/uL Absolute Nucleated RBC (0.00-0.00) X 10*3/uL Immature Gran # (0.00-0.04) X 10*3/uL Neutrophils # (1.80-7.70) X 10*3/uL Lymphocytes # (0.90-5.00) X 10*3/uL NRBC/100 WBC Diff (0.0-0.0) /100 WBCS Sodium 136 L (137-145) mmol/L Carbon Dioxide 21 L (22-30) mmol/L Creatinine 1.98 H (0.66-1.25) mg/dL Glucose 136 H (74-99) mg/dL POC Glucose (mg/dL) 161 H (70-110) mg/dL Calcium 8.2 L (8.4-10.2) mg/dL Total Protein 5.4 L (6.3-8.2) g/dL Albumin 2.6 L (3.5-5.0) g/dL 04/11/22 Range/Units 06:38 WBC 2.44 L (4.50-10.00) X 10*3/uL RBC 2.67 L (4.40-5.60) X 10*6/uL Hgb 7.9 L (13.0-17.0) g/dL Hct 25.7 L (39.6-50.0) % MCHC 30.7 L (32.0-37.0) g/dL RDW 20.4 H (11.5-14.5) % Plt Count 86 L (150-450) k/uL Absolute Nucleated RBC 0.08 H (0.00-0.00) X 10*3/uL Immature Gran # 0.11 H (0.00-0.04) X 10*3/uL Neutrophils # 1.62 L (1.80-7.70) X 10*3/uL Lymphocytes # 0.12 L (0.90-5.00) X 10*3/uL NRBC/100 WBC Diff 3.3 H (0.0-0.0) /100 WBCS Sodium (137-145) mmol/L Carbon Dioxide (22-30) mmol/L Creatinine (0.66-1.25) mg/dL Glucose (74-99) mg/dL POC Glucose (mg/dL) (70-110) mg/dL Calcium (8.4-10.2) mg/dL Total Protein (6.3-8.2) g/dL Albumin (3.5-5.0) g/dL Microbiology - Last 24 Hours (Table) 04/05/22 22:40 Blood Culture - Preliminary Blood No Growth after 120 hours 04/05/22 22:00 Blood Culture - Preliminary Blood No Growth after 120 hours Assessment and Plan Assessment: 1. Degenerative disc disease; lumbar spine neuroforaminal stenosis; multiple vertebral compression fractures; vertebral body mass/lesion 2. Multiple myeloma 3. Abscess LLE 4. Multiple medical comorbidities Plan: 1. Degenerative disc disease; lumbar spine neuroforaminal stenosis; multiple vertebral compression fractures; vertebral body mass/lesion(s) - patient was seen at bedside this morning. There are multiple vertebral compression fractures throughout the lower spine and these are chronic in nature. There are lytic lesions at T12 and L1. At this time we are not recommending any emergent orthopedic surgical intervention. Patient does need abscess/LLE to heal before proceeding/discussing any potential orthopedic surgical intervention. We are recommending continued management of low back pain with pain medicine at this time as well as TLSO brace. TLSO brace ordered. We will continue to follow patient while in hospital. We recommend patient to follow up in the outpatient setting with Dr. Rubio for further evaluation. 2. Multiple myeloma - oncology following 3. Appreciate medical, nephrology, oncology, ID management 4. Pain management - oxycodone; Tylenol; gabapentin; Dilaudid only if necessary 5. DVT prophylaxis - Eliquis 6. GI ppx - Pepcid 7. PT/OT - WBAT w/walker and TLSO brace 8. Appreciate consult Time with Patient: Less than 30
--- NOTE | 2022-04-11 11:21 | P.PN ---
Subjective Progress Note Date: 04/11/22 Principal diagnosis: Left foot abscess 59-year-old male who has had cellulitis over the last 2-1/2 weeks in and out of the hospital with IV antibiotics presented back with increased redness pain and swelling to the top of his left foot. He is status post incision and drainage o f the left foot and leg. Overall he is doing well other than chronic pain. Today he seems a little more lethargic. No fevers. Objective - Vital Signs Vital signs: Vital Signs Temp 98.5 F 04/11/22 04:38 Pulse 78 04/11/22 04:38 Resp 18 04/11/22 04:38 BP 143/84 04/11/22 04:38 Pulse Ox 96 04/11/22 04:38 FiO2 Intake & Output 04/10/22 04/11/22 04/11/22 18:59 06:59 18:59 Intake Total 118 100 Balance 118 100 Intake: Intake, IV Titration 100 Amount Cefepime 2 gm In Sodium 100 Chloride 0.9% 100 ml @ 25 mls/hr IVPB Q12H [facility] Rx# :[id number] Oral 118 Other: Voiding Method Toilet Urinal Urinal # Voids 1 - Exam General appearance: The patient is alert, oriented, appears in no acute distress. HET: Head is normocephalic and atraumatic. Neck: Supple without lymphadenopathy. Trachea midline. Extremities: Bilateral lower extremities with edema. Left lower extremity with William wrap intact. Neurological: No focal deficits. Alert and oriented 3. - Labs CBC & Chem 7: 04/11/22 06:38 04/10/22 09:01 Labs: Abnormal Lab Results - Last 24 Hours (Table) 04/10/22 04/10/22 04/10/22 Range/Units 09:01 09:01 20:25 WBC (4.50-10.00) X 10*3/uL RBC (4.40-5.60) X 10*6/uL Hgb (13.0-17.0) g/dL Hct (39.6-50.0) % MCHC (32.0-37.0) g/dL RDW (11.5-14.5) % Plt Count 92 L (150-450) k/uL Absolute Nucleated RBC (0.00-0.00) X 10*3/uL Immature Gran # (0.00-0.04) X 10*3/uL Neutrophils # (1.80-7.70) X 10*3/uL Lymphocytes # (0.90-5.00) X 10*3/uL NRBC/100 WBC Diff (0.0-0.0) /100 WBCS Sodium 136 L (137-145) mmol/L Carbon Dioxide 21 L (22-30) mmol/L Creatinine 1.98 H (0.66-1.25) mg/dL Glucose 136 H (74-99) mg/dL POC Glucose (mg/dL) 161 H (70-110) mg/dL Calcium 8.2 L (8.4-10.2) mg/dL Total Protein 5.4 L (6.3-8.2) g/dL Albumin 2.6 L (3.5-5.0) g/dL 04/11/22 Range/Units 06:38 WBC 2.44 L (4.50-10.00) X 10*3/uL RBC 2.67 L (4.40-5.60) X 10*6/uL Hgb 7.9 L (13.0-17.0) g/dL Hct 25.7 L (39.6-50.0) % MCHC 30.7 L (32.0-37.0) g/dL RDW 20.4 H (11.5-14.5) % Plt Count 86 L (150-450) k/uL Absolute Nucleated RBC 0.08 H (0.00-0.00) X 10*3/uL Immature Gran # 0.11 H (0.00-0.04) X 10*3/uL Neutrophils # 1.62 L (1.80-7.70) X 10*3/uL Lymphocytes # 0.12 L (0.90-5.00) X 10*3/uL NRBC/100 WBC Diff 3.3 H (0.0-0.0) /100 WBCS Sodium (137-145) mmol/L Carbon Dioxide (22-30) mmol/L Creatinine (0.66-1.25) mg/dL Glucose (74-99) mg/dL POC Glucose (mg/dL) (70-110) mg/dL Calcium (8.4-10.2) mg/dL Total Protein (6.3-8.2) g/dL Albumin (3.5-5.0) g/dL Microbiology - Last 24 Hours (Table) 04/05/22 22:40 Blood Culture - Preliminary Blood No Growth after 120 hours 04/05/22 22:00 Blood Culture - Preliminary Blood No Growth after 120 hours Assessment and Plan Assessment: 1. Left foot abscess status post incision and drainage 2. Cellulitis of the left lower extremity 3. Multiple myeloma 4. History of pulmonary embolism on Eliquis 5. Peripheral neuropathy 6. History of coronary artery disease status post stent 7. History hypertension 8. History hyperlipidemia 9. Obesity Plan: 1. Continue IV antibiotics per recommendations from infectious disease 2. Patient is status post I&D with deep tissue cultures pending. 3. Patient may have heart healthy diet 4. May resume Eliquis 5. Daily dressing changes with iodoform, 4 x 4 and Kerlix Thank you for this consultation. We will sign off at this time. The impression and plan of care has been dictated as directed. Dr. Lee I performed a history and examination of this patient, discussed the same with the dictator. I agree with the dictator's note ,documented as a scribe. Any additional findings or plans will be noted.
[2022-04-11 11:40] LABS: Magnesium 1.9 mg/dL (1.5-2.4)
--- NOTE | 2022-04-11 11:41 | CT ---
EXAMINATION TYPE: CT brain wo con DATE OF EXAM: 04/11/2022 COMPARISON: None HISTORY: ams, increased confusion CT DLP: 1110.[address] of the brain was performed. The ventricles, basal cisterns and sulci overlying the cerebral convexities demonstrate mild enlargem ent. There is no evidence for intracranial hemorrhage or sulcal effacement. There is decreased attenuation about the periventricular white matter and deep white matter of both c erebral hemispheres, compatible with chronic small vessel ischemia. Differential diagnosis does inclu de demyelination. No mass effects are seen.No midline shift. Osseous calvarium is intact. If symptoms persist consider MRI. IMPRESSION: 1. Age related atrophic and chronic small vessel ischemic change without acute intracranial process s een at this time.
[2022-04-11 11:54] LABS: African American GFR (CKD) 38.6 (60.0-200.0); Albumin 2.7 g/dL (3.8-4.9); Albumin/Globulin Ratio 1.08 (1.60-3.17); Anion Gap 12.1 mmol/L (10.00-18.00); BUN/Creat Ratio 5.7 Ratio (12.00-20.00); Blood Urea Nitrogen 11.4 mg/dL (9.0-27.0); Calcium 8.4 mg/dL (8.7-10.3); Carbon Dioxide 22.9 mmol/L (20.0-27.5); Globulin 2.5 g/dL (1.6-3.3); Non-African American GFR(CKD) 33.3 (60.0-200.0); Total Bilirubin 0.3 mg/dL (0.30-1.20); Total Protein 5.2 g/dL (6.2-8.2)
[2022-04-11] MEDS ORDERED: POTASSIUM CHLORIDE ER 20 MEQ TAB.ER PO STA (13:18)
--- NOTE | 2022-04-11 15:31 | P.CONS ---
History of Present Illness - Reason for Consult Consult date: 04/11/22 lower back pain, myeloma Requesting physician: Nicolasa Hendricks - Chief Complaint low back pain, leg cellulitis - History of Present Illness The patient is a 66-year-old male with a history of multiple myeloma, initially diagnosed in 2015. He initially underwent RVD chemotherapy followed by ASCT in August 2016. He unfortunately developed progressive disease in 2018, and underwent palliative radiotherapy to a lumbosacral mass by Dr. Williamson. He recently developed painful progression within the lower thoracic spine, and underwent a palliative course of radiation finishing T10-L1 on March 20, 2022. He has subsequently been hospitalized secondary to lower extremity cellulitis/abscess. The patient required incision and drainage on April 07 for abscess involving the left lower extremity. He states that the left leg is no longer painful, and seems to be improving. He has continued however to complain of lower back pain. He underwent repeat CT scan of the thoracic and lumbar spine on April 09. Multiple compression fractures were appreciated, however these were all felt to largely be stable over the past several months. There were some new fracture lines appreciated at T12, and some surrounding fat stranding suggestive of acute fracture. The patient underwent an MRI of the lumbar spine on April 10, this was largely stable compared to his prior exams but is worrisome for developing pathologic fracture at T12. The patient is very tired today. According to his , he slept most of the previous day. This may be secondary to his current pain regimen. He was evaluated by Dr. Rubio and was recommended to use a back brace. He has not yet started this. The patient reports that he does not have significant pain when lying in bed, but the pain can be up to 5 out of 10 with any movement and worse with weightbearing. Review of Systems Constitutional: Denies chills, Denies fever Eyes: denies blurred vision Ears: deny: decreased hearing Ears, nose, mouth and throat: Denies headache Cardiovascular: Denies chest pain, Denies edema Respiratory: Denies cough Gastrointestinal: Denies change in bowel habits Genitourinary: Denies flank pain Musculoskeletal: Reports low back pain Integumentary: Denies rash Neurological: Denies aphasia Psychiatric: Reports hypersomnia 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, gait dysfunction-uses walker, bilateral pedal/ankle edema, PE 08/2019, chronic low back pain, past vertebral fractures, minimal CAD, shingelles twice, past R heel wound, elevated lipids in the past, History of Any Multi-Drug Resistant Organisms: None Reported Past Surgical History: Heart Catheterization, Orthopedic Surgery Additional Past Surgical History / Comment(s): excision of uvular lesion(benign) 2009, colonoscopy, dave knee arthroscopy, rt rotator cuff sx, moles removed from back(benign), bone marrow aspiration/bx, stem cell transplant 2015, Past Anesthesia/Blood Transfusion Reactions: No Reported Reaction Past Psychological History: No Psychological Hx Reported Smoking Status: Never smoker Past Alcohol Use History: None Reported Past Drug Use History: None Reported - Past Family History Father Family Medical History: Renal Disease, Vascular Disorder Additional Family Medical History / Comment(s): aaa. Father is . Mother Family Medical History: Hypertension Additional Family Medical History / Comment(s): mom is healthy Medications and Allergies Home Medications Medication Instructions Recorded Confirmed Type Famotidine [Pepcid] 20 mg PO DAILY PRN 04/15/19 04/05/22 History Gabapentin [Neurontin] 300 mg PO TID 04/15/19 04/05/22 History dexAMETHasone 8 mg PO DIRECTED 04/15/19 04/05/22 History Acyclovir 400 mg PO BID 08/24/19 04/05/22 History Pomalyst 3mg 3 mg PO DIRECTED 08/24/19 04/05/22 History Aspirin 81 mg PO DAILY #30 chewable 08/26/19 04/05/22 Rx Apixaban [Eliquis] 5 mg PO BID 10/03/19 04/05/22 History Nitroglycerin Sl Tabs [Nitrostat] 0.4 mg SUBLINGUAL Q5M PRN 10/03/19 04/05/22 History Calcium Carbonate/Vitamin D3 1 cap PO DAILY 01/10/20 04/05/22 History [Calcium 600-Vit D3 20 Mcg (800 Iu)] Potassium Chloride ER [K-Dur 20] 20 meq PO DAILY 01/10/20 04/05/22 History Furosemide [Lasix] 20 mg PO DAILY PRN 05/31/21 04/05/22 History Acetaminophen Tab [Tylenol] 650 mg PO Q6HR PRN tab 06/03/21 04/05/22 Rx Multivitamins, Thera [Multivitamin 1 tab PO DAILY 12/16/21 04/05/22 History (formulary)] oxyCODONE HCL [oxyCODONE HCL (IR)] 10 - 20 mg PO Q4H PRN 03/25/22 04/05/22 History Cephalexin [Keflex] 500 mg PO Q6HR 1 Days #40 cap 04/03/22 04/05/22 Rx Terbinafine 1% Cream [LamISIL] 1 applic TOPICAL TID 90 Days #15 gm 04/03/22 04/05/22 Rx Allergies Allergy/AdvReac Type Severity Reaction Status Date / Time sulfamethoxazole Allergy Rash/Hives Verified 04/05/22 21:45 [From Bactrim] trimethoprim [From Bactrim] Allergy Rash/Hives Verified 04/05/22 21:45 Physical Exam Vitals: Vital Signs Temp Pulse Pulse Resp BP Pulse Ox 04/11/22 13:00 98.4 F 84 16 152/89 98 04/11/22 04:38 98.5 F 78 18 143/84 96 04/10/22 21:00 98.8 F 93 20 155/92 96 04/10/22 19:52 93 20 Intake and Output 04/11/22 04/11/22 04/11/22 06:59 14:59 22:59 Intake Total 100 Balance 100 Intake: Intake, IV Titration 100 Amount Cefepime 2 gm In Sodium 100 Chloride 0.9% 100 ml @ 25 mls/hr IVPB Q12H [facility] Rx# :[id number] - Constitutional General appearance: no acute distress - EENT Eyes: EOMI, PERRLA ENT: hearing grossly normal - Neck Neck: no lymphadenopathy - Respiratory Respiratory: bilateral: CTA - Cardiovascular Rhythm: regular - Gastrointestinal General gastrointestinal: no distended, no tenderness - Integumentary Integumentary: no calor - Neurologic Neurologic: CNII-XII intact - Musculoskeletal Musculoskeletal: strength equal bilaterally - Psychiatric Psychiatric: A&O x's 3, appropriate affect Results CBC & Chem 7: 04/11/22 06:38 04/11/22 06:38 Labs: Abnormal Lab Results - Last 24 Hours (Table) 04/10/22 04/11/22 04/11/22 Range/Units 20:25 06:38 06:38 WBC 2.44 L (4.50-10.00) X 10*3/uL RBC 2.67 L (4.40-5.60) X 10*6/uL Hgb 7.9 L (13.0-17.0) g/dL Hct 25.7 L (39.6-50.0) % MCHC 30.7 L (32.0-37.0) g/dL RDW 20.4 H (11.5-14.5) % Plt Count 86 L (140-440) X 10*3/uL Absolute Nucleated RBC 0.08 H (0.00-0.00) X 10*3/uL Immature Gran # 0.11 H (0.00-0.04) X 10*3/uL Neutrophils # 1.62 L (1.80-7.70) X 10*3/uL Lymphocytes # 0.12 L (0.90-5.00) X 10*3/uL NRBC/100 WBC Diff 3.3 H (0.0-0.0) /100 WBCS Potassium 3.0 L (3.5-5.5) mmol/L Creatinine 2.0 H (0.6-1.5) mg/dL Est GFR (CKD-EPI)AfAm 38.6 L (60.0-200.0) Est GFR (CKD-EPI)NonAf 33.3 L (60.0-200.0) BUN/Creatinine Ratio 5.70 L (12.00-20.00) Ratio POC Glucose (mg/dL) 161 H (70-110) mg/dL Calcium 8.4 L (8.7-10.3) mg/dL Total Protein 5.2 L (6.2-8.2) g/dL Albumin 2.7 L (3.8-4.9) g/dL Albumin/Globulin Ratio 1.08 L (1.60-3.17) g/dL Microbiology - Last 24 Hours (Table) 04/05/22 22:40 Blood Culture - Preliminary Blood No Growth after 120 hours 04/05/22 22:00 Blood Culture - Preliminary Blood No Growth after 120 hours Assessment and Plan Assessment: The patient is a 66-year-old male with a history of multiple myeloma, initially diagnosed in 2015. He initially underwent RVD chemotherapy followed by ASCT in August 2016. He unfortunately developed progressive disease in 2018, and underwent palliative radiotherapy to a lumbosacral mass by Dr. Williamson. He recently developed painful progression within the lower thoracic spine, and underwent a palliative course of radiation finishing T10-L1 on March 20, 2022. He has subsequently been hospitalized secondary to lower extremity cellulitis/absc ess. Plan: 1. Lower back pain: The patient just completed a course of palliative radiotherapy to the lower back less than one month prior. His MRI and CT imaging does not reveal any other areas of progression. I did not feel he would benefit from additional radiation to this area. I am concerned that his pain is more mechanical, and he may benefit from the back brace recommended by orthopedics. No acute surgical intervention was recommended at this time. 2. Myeloma: The patient has had outpatient chemotherapy with Dr. Browning, but is on hold at this time secondary to his hospitalization and recurrent cellulitis. Time with Patient: Greater than 30
--- NOTE | 2022-04-11 16:02 | P.PN ---
Subjective Progress Note Date: 04/11/22 (delayed charting seen at 0855) Patient is 67-year-old male with multiple myeloma currently undergoing chem otherapy with Dr. Mensah, prior pulmonary embolism, cellulitis, coronary artery disease, and dyslipidemia who presented to the ER with complaints of left lower extremity erythema and pain. Patient had been recently seen at the hospital and discharged on 04/03 with oral Keflex. On arrival to the ER he was febrile to 100.8, CRP was elevated at 20.9. He was admitted for treatment of left lower extremity cellulitis in the setting of chemotherapy and outpatient failure. He was started on cefepime and vancomycin. Infectious disease was consulted. Patient undewent I adn D of left foot abscess on 04/07 with vascular surgery. Nephrology was conuslted due to DUNCAN on CKD 3. Ortho spine was consulted due to worsening back pain. He was Degenerative disc disease, lumbar spine neuroforaminal stenosis and multiple vertebral compression fractures with worst one at T 12 Imaging: Chest x-ray-no acute process CT left lower leg: Diffuse subcutaneous edema entire leg, focal area of fluid on the dorsum of the midfoot over the second metatarsal that could be an abscess Ct thorasic and lumbar spine: known MM, diffuse osteopenia, acute T12 vertebral body fracture likelt due to MM Lumbar spine MRI: T12 pathologic fracture. Patient seen and examined at bedside with family present. is concerned that he is not eating and is sleeping more, we discussed that he required more pain medications yesterday and that those and pain can make you more comfortable. General: nontoxic, no distress, appears at stated age Derm: warm, dry, dressing in place over left foot Head: atraumatic, normocephalic, symmetric Eyes: EOMI, no lid lag, anicteric sclera Mouth: no lip lesion, mucus membranes moist Cardiovascular: S1S2 reg, no murmur, positive posterior tibial pulse bilateral, Lungs: CTA bilateral, no rhonchi, no rales , no accessory muscle use Abdominal: soft, nontender to palpation, no guarding, no appreciable organomegaly Ext: no gross muscle atrophy, no edema, no contractures Neuro: CN II-XI grossly intact, no focal neuro deficits, jerking movements noted of bilateral upper extremities Psych: lethargic, oriented X 3 when awake, appropriate affect Assessment/plan:ct Left lower extremity cellulitis with abscess - s/p I and D 04/07 - vanco/cefepime - wound care per vascular - ID recs - Await cultures Multiple myeloma Pancytopenia - oncology recs - CBC stable, continue to monitor Acute toxic metabolic encephalopathy - check head CT - check stat ammonia level - supportive care T 12 fracture, multiple vertebral fractures due to MM, lumbar spine neuroforaminal stenosis, intractable - start fentanyl patch in hopes to better control pain - D/W Dr. Rubio plan at this time due to infection is LSO brace and pain control. D/W Dr. Miranda will need 2 weeks of IV ABX. - D/W Dr. Hill no indication for repeat radiation. DUNCAN on CKD 3 due to ATN Hyponatremia, resolved - nephro recs appreciated: may need renal biopsy for definitive diagnosis - hold diuretics - monitor vanco levels closely. Chronic pain - continue on gabapentin, oxy, and Dilaudid. Chronic: Prior pulmonary embolism on Dilantin Dyslipidemia Gait dysfunction Chronic low back pain Coronary artery disease DVT prophylaxis: ra[place] Discussed with: patient, family, nursing Anticipated discharge: pending clinical course Anticipated discharge place: home A total of 30 minutes was spent on the care of this complex patient more than 50% of the time was spent in counseling and care coordination. Active Medications Generic Name Dose Route Start Last Admin Trade Name Freq PRN Reason Stop Dose Admin Acetaminophen 650 mg 04/06/22 00:57 04/06/22 20:31 Acetaminophen Tab 325 Mg Tab PO 650 mg Q6HR PRN Administration Mild Pain or Fever > 100.5 Acyclovir 400 mg 04/06/22 09:00 04/11/22 09:43 Acyclovir 200 Mg Cap PO 400 mg BID NNAMDI Administration Apixaban 5 mg 04/08/22 10:30 04/11/22 09:43 Apixaban 5 Mg Tab PO 5 mg BID NNAMDI Administration Protocol Famotidine 20 mg 04/06/22 16:51 Famotidine 20 Mg Tab PO DAILY PRN Heartburn Fentanyl 1 patch 04/11/22 09:00 04/11/22 09:42 Fentanyl 12mcg/Hr Patch TRANSDERM 1 patch Q72H NNAMDI Administration Protocol Gabapentin 300 mg 04/06/22 01:00 04/11/22 15:38 Gabapentin 300 Mg Cap PO 300 mg TID NNAMDI Administration Hydromorphone HCl 0.5 mg 04/06/22 09:23 04/10/22 19:54 Hydromorphone 0.5 Mg/0.5 Ml Syringe IVP 0.5 mg Q4HR PRN Administration Pain Scale 8 to 10 Cefazolin Sodium 2 gm/ Sodium 50 mls @ 100 mls/hr 04/11/22 16:00 Chloride IVPB Q8HR [facility] Protocol Multivitamins 1 each 04/07/22 09:00 04/11/22 09:43 Multivitamins, Thera 1 Each Tab PO 1 each DAILY [facility] Administration Oxycodone HCl 5 mg 04/08/22 18:31 04/09/22 12:17 Oxycodone Hcl 5 Mg Tab PO 5 mg Q6H PRN Administration Pain Scale 8 to 10 Objective - Vital Signs Vital signs: Vital Signs Temp 98.4 F 04/11/22 13:00 Pulse 84 04/11/22 13:00 Resp 16 04/11/22 13:00 BP 152/89 04/11/22 13:00 Pulse Ox 98 04/11/22 13:00 FiO2 Intake & Output 04/10/22 04/11/22 04/11/22 18:59 06:59 18:59 Intake Total 118 100 Balance 118 100 Intake: Intake, IV Titration 100 Amount Cefepime 2 gm In Sodium 100 Chloride 0.9% 100 ml @ 25 mls/hr IVPB Q12H [facility] Rx# :[id number] Oral 118 Other: Voiding Method Toilet Urinal Urinal # Voids 1 - Labs CBC & Chem 7: 04/11/22 06:38 04/11/22 06:38 Labs: Abnormal Lab Results - Last 24 Hours (Table) 04/10/22 04/11/22 04/11/22 Range/Units 20:25 06:38 06:38 WBC 2.44 L (4.50-10.00) X 10*3/uL RBC 2.67 L (4.40-5.60) X 10*6/uL Hgb 7.9 L (13.0-17.0) g/dL Hct 25.7 L (39.6-50.0) % MCHC 30.7 L (32.0-37.0) g/dL RDW 20.4 H (11.5-14.5) % Plt Count 86 L (140-440) X 10*3/uL Absolute Nucleated RBC 0.08 H (0.00-0.00) X 10*3/uL Immature Gran # 0.11 H (0.00-0.04) X 10*3/uL Neutrophils # 1.62 L (1.80-7.70) X 10*3/uL Lymphocytes # 0.12 L (0.90-5.00) X 10*3/uL NRBC/100 WBC Diff 3.3 H (0.0-0.0) /100 WBCS Potassium 3.0 L (3.5-5.5) mmol/L Creatinine 2.0 H (0.6-1.5) mg/dL Est GFR (CKD-EPI)AfAm 38.6 L (60.0-200.0) Est GFR (CKD-EPI)NonAf 33.3 L (60.0-200.0) BUN/Creatinine Ratio 5.70 L (12.00-20.00) Ratio POC Glucose (mg/dL) 161 H (70-110) mg/dL Calcium 8.4 L (8.7-10.3) mg/dL Total Protein 5.2 L (6.2-8.2) g/dL Albumin 2.7 L (3.8-4.9) g/dL Albumin/Globulin Ratio 1.08 L (1.60-3.17) g/dL Microbiology - Last 24 Hours (Table) 04/05/22 22:40 Blood Culture - Preliminary Blood No Growth after 120 hours 04/05/22 22:00 Blood Culture - Preliminary Blood No Growth after 120 hours
--- NOTE | 2022-04-11 20:59 | P.PN ---
Subjective Progress Note Date: 04/11/22 Principal diagnosis: LLE Cellulitits and pathological comfression spine Ortho spine will await recovery of infection prior to invasive intervention, therefore be seen as outpatient. patient understands. Objective - Vital Signs Vital signs: Vital Signs Temp 98.4 F 04/11/22 13:00 Pulse 84 04/11/22 13:00 Resp 16 04/11/22 13:00 BP 152/89 04/11/22 13:00 Pulse Ox 98 04/11/22 13:00 FiO2 Intake & Output 04/10/22 04/11/22 04/11/22 18:59 06:59 18:59 Intake Total 118 100 Balance 118 100 Intake: Intake, IV Titration 100 Amount Cefepime 2 gm In Sodium 100 Chloride 0.9% 100 ml @ 25 mls/hr IVPB Q12H [facility] Rx# :[id number] Oral 118 Other: Voiding Method Toilet Urinal Urinal # Voids 1 - Exam - Constitutional General appearance: Present: average body habitus, cooperative, no acute distress - EENT Eyes: Present: anicteric sclerae, EOMI ENT: Present: hearing grossly normal - Respiratory Respiratory: bilateral: CTA - Cardiovascular Rhythm: regular Heart sounds: normal: S1, S2 Abnormal Heart Sounds: Absent: systolic murmur, diastolic murmur, rub, S3 Gallop, S4 Gallop, click, other - Peripheral edema leg Peripheral Edema: right: None, left: 1+ - Gastrointestinal General gastrointestinal: Present: normal bowel sounds, soft. Absent: absent bowel sounds, decreased bowel sounds, distended, hepatomegaly, hyperactive bowel sounds, organomegaly, rigid, scaphoid, splenomegaly, tenderness, umbilical hernia, ventral hernia - Neurologic Neurologic: Present: CNII-XII intact - Psychiatric Psychiatric: Present: A&O x's 3, appropriate affect, intact judgment & insight - Labs CBC & Chem 7: 04/11/22 06:38 04/11/22 06:38 Labs: Abnormal Lab Results - Last 24 Hours (Table) 04/10/22 04/10/22 04/11/22 Range/Units 09:01 20:25 06:38 WBC (4.50-10.00) X 10*3/uL RBC (4.40-5.60) X 10*6/uL Hgb (13.0-17.0) g/dL Hct (39.6-50.0) % MCHC (32.0-37.0) g/dL RDW (11.5-14.5) % Plt Count (140-440) X 10*3/uL Absolute Nucleated RBC (0.00-0.00) X 10*3/uL Immature Gran # (0.00-0.04) X 10*3/uL Neutrophils # (1.80-7.70) X 10*3/uL Lymphocytes # (0.90-5.00) X 10*3/uL NRBC/100 WBC Diff (0.0-0.0) /100 WBCS Sodium 136 L (137-145) mmol/L Potassium 3.0 L (3.5-5.5) mmol/L Carbon Dioxide 21 L (22-30) mmol/L Creatinine 1.98 H 2.0 H (0.66-1.25) mg/dL Est GFR (CKD-EPI)AfAm 38.6 L (60.0-200.0) Est GFR (CKD-EPI)NonAf 33.3 L (60.0-200.0) BUN/Creatinine Ratio 5.70 L (12.00-20.00) Ratio Glucose 136 H (74-99) mg/dL POC Glucose (mg/dL) 161 H (70-110) mg/dL Calcium 8.2 L 8.4 L (8.4-10.2) mg/dL Total Protein 5.4 L 5.2 L (6.3-8.2) g/dL Albumin 2.6 L 2.7 L (3.5-5.0) g/dL Albumin/Globulin Ratio 1.08 L (1.60-3.17) g/dL 04/11/22 Range/Units 06:38 WBC 2.44 L (4.50-10.00) X 10*3/uL RBC 2.67 L (4.40-5.60) X 10*6/uL Hgb 7.9 L (13.0-17.0) g/dL Hct 25.7 L (39.6-50.0) % MCHC 30.7 L (32.0-37.0) g/dL RDW 20.4 H (11.5-14.5) % Plt Count 86 L (140-440) X 10*3/uL Absolute Nucleated RBC 0.08 H (0.00-0.00) X 10*3/uL Immature Gran # 0.11 H (0.00-0.04) X 10*3/uL Neutrophils # 1.62 L (1.80-7.70) X 10*3/uL Lymphocytes # 0.12 L (0.90-5.00) X 10*3/uL NRBC/100 WBC Diff 3.3 H (0.0-0.0) /100 WBCS Sodium (137-145) mmol/L Potassium (3.5-5.5) mmol/L Carbon Dioxide (22-30) mmol/L Creatinine (0.66-1.25) mg/dL Est GFR (CKD-EPI)AfAm (60.0-200.0) Est GFR (CKD-EPI)NonAf (60.0-200.0) BUN/Creatinine Ratio (12.00-20.00) Ratio Glucose (74-99) mg/dL POC Glucose (mg/dL) (70-110) mg/dL Calcium (8.4-10.2) mg/dL Total Protein (6.3-8.2) g/dL Albumin (3.5-5.0) g/dL Albumin/Globulin Ratio (1.60-3.17) g/dL Microbiology - Last 24 Hours (Table) 04/05/22 22:40 Blood Culture - Preliminary Blood No Growth after 120 hours 04/05/22 22:00 Blood Culture - Preliminary Blood No Growth after 120 hours Assessment and Plan Plan: Comments: X ray tib/fib reviewed Assessment and Plan (1) Left leg cellulitis Narrative/Plan: The patient had improved at the time of his recent discharge. However, there is still evidence of ongoing issue On examination there appeared to be focal areas of markedly increased tenderness. Last admission a CT of the lower extremity was ordered to check for deeper soft tissue infection including necrotizing fasciitis. as well as repeat Dopplers Current Visit: Yes Status: Acute Code(s): L03.116 - CELLULITIS OF LEFT LOWER LIMB SNOMED Code(s): 899939807 (2) Intractable back pain Narrative/Plan: - Last admission pain improved prior to discharge, was felt radiation was needing more time to kick in - Cord compression was ruled out with MRI Current Visit: Yes Status: Acute Code(s): M54.9 - DORSALGIA, UNSPECIFIED SNOMED Code(s): 281283859 (3) Multiple myeloma Narrative/Plan: the patient has recently been started on a new regimen. This is currently on hold. This can be resumed, once acute condition resolves in a [facility]. Current Visit: No Status: Chronic Priority: Medium Code(s): C90.00 - MULTIPLE MYELOMA NOT HAVING ACHIEVED REMISSION SNOMED Code(s): 289444214 Infectious work-up ordered ID ifollowing Status post I and D Ortho spine seen and recommended CT scans of the thoracic and lumbar spine as well as lumbar spine MRI for further evaluation. prior to surgical decision PLAN: FOLLOW up with ortho spine after cellulitis is resolved Discussed with primary team and plan for treatment and clearance of infection prior to surgical intervention
[2022-04-12] MEDS: FAMOTIDINE 20 MG TAB PO PRN (00:07)
[2022-04-12 06:43] LABS: Anisocytosis Slight; HCT 27.9 % (39.0-53.0); HGB 9.1 gm/dL (13.0-17.5); Hypochromasia Moderate; MCH 31.6 pg (25.0-35.0); MCHC 32.4 g/dL (31.0-37.0); MCV 97.4 fL (80.0-100.0); Macrocytosis Slight; Poikilocytosis Slight; RBC 2.87 m/uL (4.30-5.90); RDW 19.7 % (11.5-15.5); WBC 2.8 k/uL (3.8-10.6)
[2022-04-12 06:44] LABS: Platelet Count 93 k/uL (150-450)
[2022-04-12 06:54] LABS: ALT 8 U/L (4-49); AST 38 U/L (17-59); African American GFR (CKD) 46 (>60 ml/min/1.73 sqM); Albumin 2.7 g/dL (3.5-5.0); Albumin/Globulin Ratio 0.9; Alkaline Phosphatase 72 U/L (38-126); Anion Gap 8 mmol/L; Blood Urea Nitrogen 13 mg/dL (9-20); Calcium 8.5 mg/dL (8.4-10.2); Carbon Dioxide 22 mmol/L (22-30); Chloride 108 mmol/L (98-107); Globulin 2.9 g/dL; Glucose 83 mg/dL (74-99); Magnesium 1.7 mg/dL (1.6-2.3); Non-African American GFR(CKD) 39 (>60 ml/min/1.73 sqM); Potassium 3.6 mmol/L (3.5-5.1); Sodium 138 mmol/L (137-145); Total Bilirubin 0.5 mg/dL (0.2-1.3); Total Protein 5.6 g/dL (6.3-8.2)
[2022-04-12] MEDS: GABAPENTIN 300 MG CAP PO SCH (08:09)
[2022-04-12] MEDS: ACYCLOVIR 200 MG CAP PO SCH ×2 (08:09→21:17)
[2022-04-12] MEDS: MULTIVITAMINS, THERA 1 EACH TAB PO SCH (08:10)
[2022-04-12] MEDS: APIXABAN 5 MG TAB PO SCH ×2 (08:10→21:18)
--- NOTE | 2022-04-12 09:17 | P.PN ---
Subjective Progress Note Date: 04/12/22 Principal diagnosis: Degenerative disc disease; lumbar spine neuroforaminal stenosis; multiple vertebral compression fractures; vertebral body mass/lesion -abscess LLE Patient was seen at bedside this morning with at bedside during encounter. Patient is very lethargic/drowsy throughout encounter and gives most of updates. Patient says he is still having low back pain. Patient's says he has not been up out of bed. yet this morning. TLSO brace is at bedisde. Patient denies increasing chest pain, shortness breath, nausea, vomiting, change in vision, loss of bowel/bladder control. Objective - Vital Signs Vital signs: Vital Signs Temp 99.6 F 04/12/22 05:00 Pulse 90 04/12/22 05:00 Resp 16 04/12/22 05:00 BP 124/53 04/12/22 05:00 Pulse Ox 94 L 04/12/22 05:00 FiO2 Intake & Output 04/11/22 04/12/22 04/12/22 18:59 06:59 18:59 Intake Total 200 Balance 200 Intake: Oral 200 Other: Voiding Method Diaper # Voids 2 3 - Exam Inspection: William bandage/dressing present on left lower extremity extending from proximal calf to digits in left foot. Minimal swelling along the left lower extremity. Negative for any open fractures, significant ecchymosis/nodules. Sensation: Sensation is equal, symmetric, by intact throughout the upper and lower extremities. Palpation: Moderate TTP throughout the lumbar spine especially in the midline and paravertebral region. Nontender to palpation throughout rest exam Range of motion: Patient has full range of motion bilateral upper extremities. Patient has full range of motion and right lower extremity and also in left lower extremity hip flexion/extension and knee flexion/extension. Limited range of motion in left ankle dorsi/plantar flexion due to his bandage/dressing on LLE Motor: 5/5 in all major motor groups in bilateral upper extremities. 4+/5 in all motor groups in bilateral lower extremities. Neurovascular: Dorsalis pedis pulse intact, 2+ on the right foot. Radial pulses intact, 2+ bilaterally. Cap refill under 3 seconds in digits of the upper extremities. Special tests: Negative Homans; Negative clonus bilaterally; negative Caterina's bilaterally - Labs CBC & Chem 7: 04/12/22 06:05 04/12/22 06:05 Labs: Abnormal Lab Results - Last 24 Hours (Table) 04/11/22 04/11/22 04/12/22 Range/Units 06:38 06:38 06:05 WBC 2.44 L 2.8 L (4.50-10.00) X 10*3/uL RBC 2.67 L 2.87 L (4.40-5.60) X 10*6/uL Hgb 7.9 L 9.1 L (13.0-17.0) g/dL Hct 25.7 L 27.9 L (39.6-50.0) % MCHC 30.7 L (32.0-37.0) g/dL RDW 20.4 H 19.7 H (11.5-14.5) % Plt Count 86 L 93 L (140-440) X 10*3/uL Absolute Nucleated RBC 0.08 H (0.00-0.00) X 10*3/uL Immature Gran # 0.11 H (0.00-0.04) X 10*3/uL Neutrophils # 1.62 L (1.80-7.70) X 10*3/uL Lymphocytes # 0.12 L (0.90-5.00) X 10*3/uL NRBC/100 WBC Diff 3.3 H (0.0-0.0) /100 WBCS Potassium 3.0 L (3.5-5.5) mmol/L Chloride (98-107) mmol/L Creatinine 2.0 H (0.6-1.5) mg/dL Est GFR (CKD-EPI)AfAm 38.6 L (60.0-200.0) Est GFR (CKD-EPI)NonAf 33.3 L (60.0-200.0) BUN/Creatinine Ratio 5.70 L (12.00-20.00) Ratio Calcium 8.4 L (8.7-10.3) mg/dL Total Protein 5.2 L (6.2-8.2) g/dL Albumin 2.7 L (3.8-4.9) g/dL Albumin/Globulin Ratio 1.08 L (1.60-3.17) g/dL 04/12/22 Range/Units 06:05 WBC (4.50-10.00) X 10*3/uL RBC (4.40-5.60) X 10*6/uL Hgb (13.0-17.0) g/dL Hct (39.6-50.0) % MCHC (32.0-37.0) g/dL RDW (11.5-14.5) % Plt Count (140-440) X 10*3/uL Absolute Nucleated RBC (0.00-0.00) X 10*3/uL Immature Gran # (0.00-0.04) X 10*3/uL Neutrophils # (1.80-7.70) X 10*3/uL Lymphocytes # (0.90-5.00) X 10*3/uL NRBC/100 WBC Diff (0.0-0.0) /100 WBCS Potassium (3.5-5.5) mmol/L Chloride 108 H (98-107) mmol/L Creatinine 1.74 H (0.6-1.5) mg/dL Est GFR (CKD-EPI)AfAm (60.0-200.0) Est GFR (CKD-EPI)NonAf (60.0-200.0) BUN/Creatinine Ratio (12.00-20.00) Ratio Calcium (8.7-10.3) mg/dL Total Protein 5.6 L (6.2-8.2) g/dL Albumin 2.7 L (3.8-4.9) g/dL Albumin/Globulin Ratio (1.60-3.17) g/dL Microbiology - Last 24 Hours (Table) 04/05/22 22:00 Blood Culture - Final Blood No Growth after 144 hours 04/05/22 22:40 Blood Culture - Final Blood No Growth after 144 hours Assessment and Plan Assessment: 1. Degenerative disc disease; lumbar spine neuroforaminal stenosis; multiple vertebral compression fractures; vertebral body mass/lesion 2. Multiple myeloma 3. Abscess LLE 4. Multiple medical comorbidities Plan: 1. Degenerative disc disease; lumbar spine neuroforaminal stenosis; multiple vertebral compression fractures; vertebral body mass/lesion(s) - patient was see n at bedside this morning. There are multiple vertebral compression fractures throughout the lower spine and these are chronic in nature. There are lytic lesions at T12 and L1. At this time we are not recommending any emergent orthopedic surgical intervention. Patient does need abscess/LLE to heal before proceeding/discussing any potential orthopedic surgical intervention. We are recommending continued management of low back pain with pain medicine at this time as well as TLSO brace. TLSO brace in room at bedside. Patient is orthopedically stable for discharge. We recommend patient to follow up in the outpatient setting with Dr. Rubio for further evaluation. Orthopedics is signing off at this time. Please do not hesitate to contact us for any further questions. 2. Multiple myeloma - oncology following 3. Appreciate medical, nephrology, oncology, ID management 4. Pain management - oxycodone; Tylenol; gabapentin; Dilaudid only if necessary 5. DVT prophylaxis - Eliquis 6. GI ppx - Pepcid 7. PT/OT - WBAT w/walker and TLSO brace 8. Appreciate consult Time with Patient: Less than 30
[2022-04-12] MEDS ORDERED: DEXTROSE 5%-0.45% NACL 1,000 ML IV SCH (09:30)
[2022-04-12] MEDS: ACETAMINOPHEN IV (For NPO) 1,000 MG in EMPTY BAG 1 BAG IVPB SCH ×3 (09:37→21:18)
--- NOTE | 2022-04-12 11:10 | P.PN ---
Subjective Progress Note Date: 04/12/22 Principal diagnosis: 67-year-old male seen in consultation because of chronic kidney disease secondary to myeloma, acute kidney injury secondary to sepsis. He came in because of infected left leg cellulitis with abscess status post I&D. This morning is somewhat confused. Although his creatinine is improved. His and son were there he was able to recognize his he was following all commands but was having difficulty verbalizing. While signs are stable blood pressure 124/53 heart rate 90 temp is slightly high 99.6 Re: Intake is not well documented nor the output. On examination He is awake alert follows commands but is having difficulty verbalizing but he is able to recognize his and speak. HEENT exam no JVP neck is supple no facial asymmetry Lungs clear to auscultation good air entry bilaterally Heart sounds unremarkable no murmur rub gallop Abdomen soft nontender Extreme exam was trace edema on the left where he had the cellulitis the right leg has no edema Neurologically as mentioned about awake alert and follows all commands but has difficulty verbalizing. Moves all his extreme it is Impression 1. Acute kidney injury secondary to sepsis improved creatinine is down to 1.74 from 2 yesterday 2. Chronic kidney disease secondary to multiple myeloma and a baseline 1.5 3. Multiple myeloma 4. Admitted with abscess and cellulitis of the left leg status post IND. 5. Anemia hemoglobin is 9.1. Commendations 1. Change IV fluids from D5 half normal saline to lactated Ringer's at 75 an hour 2. Will continue to monitor labs Objective - Vital Signs Vital signs: Vital Signs Temp 99.6 F 04/12/22 05:00 Pulse 90 04/12/22 05:00 Resp 16 04/12/22 05:00 BP 124/53 04/12/22 05:00 Pulse Ox 94 L 04/12/22 05:00 FiO2 Intake & Output 04/11/22 04/12/22 04/12/22 18:59 06:59 18:59 Intake Total 200 Balance 200 Intake: Oral 200 Other: Voiding Method Diaper # Voids 2 3 1 # Bowel Movements 1 - Labs CBC & Chem 7: 04/12/22 06:05 04/12/22 06:05 Labs: Abnormal Lab Results - Last 24 Hours (Table) 04/11/22 04/12/22 04/12/22 Range/Units 06:38 06:05 06:05 WBC 2.8 L (3.8-10.6) k/uL RBC 2.87 L (4.30-5.90) m/uL Hgb 9.1 L (13.0-17.5) gm/dL Hct 27.9 L (39.0-53.0) % RDW 19.7 H (11.5-15.5) % Plt Count 93 L (150-450) k/uL Potassium 3.0 L (3.5-5.5) mmol/L Chloride 108 H (98-107) mmol/L Creatinine 2.0 H 1.74 H (0.6-1.5) mg/dL Est GFR (CKD-EPI)AfAm 38.6 L (60.0-200.0) Est GFR (CKD-EPI)NonAf 33.3 L (60.0-200.0) BUN/Creatinine Ratio 5.70 L (12.00-20.00) Ratio Calcium 8.4 L (8.7-10.3) mg/dL Total Protein 5.2 L 5.6 L (6.2-8.2) g/dL Albumin 2.7 L 2.7 L (3.8-4.9) g/dL Albumin/Globulin Ratio 1.08 L (1.60-3.17) g/dL Microbiology - Last 24 Hours (Table) 04/05/22 22:00 Blood Culture - Final Blood No Growth after 144 hours 04/05/22 22:40 Blood Culture - Final Blood No Growth after 144 hours
[2022-04-12] MEDS: LACTATED RINGERS 1,000 ML IV SCH ×2 (12:36→23:48)
--- NOTE | 2022-04-12 13:56 | P.CNNES ---
History of Present Illness Consult date: 04/12/22 Requesting physician: Esperanza Lynn Reason for Consult: myoclonic jerks History of Present Illness: This is a 67-year-old gentleman with history of multiple myeloma undergoing chemotherapy, pulmonary embolism, coronary artery disease, dyslipidemia, cellulitis, chronic kidney insufficiency who presented to the emergency department complaining of left lower extremity erythema and pain at. Neurology is consulted for myoclonic jerk. Some of the history is obtained from the patient primary attending. Per the primary attending the patient's having myoclonic jerks but the patient has acute kidney injury on chronic kidney insufficiency and kidney function is improving but has these jerks. She had a CT of the head which was unremarkable. Patient is on home medication of gabapentin 300 mg a tablet 3 times a day and was decreased to 200 mg 1 tablet 3 times a day during his hospital visit. Also was felt the patient had the altered mental status due to metabolic encephalopathy. Patient has left lower extremity cellulitis with abscess patient had I&D on 04/07/2022. ID is on board patient was being treated with vancomycin and cefepime Of note also seems that the patient is a having back pain and has lumbar spinal neuroforaminal stenosis at multiple vertebral compression fracture worse at that T12. So orthopedic team was consulted. I also spoke with patient's son and he stated patient is usually oriented X3 and has normal conversation. But his confusion started this past Thursday. It seems patient was on fentanyl patch. He did not see any jerks but felt patient was restless and moving his feet. Also stated patient was on so many medication recently such IV medication but does not know names. Some of the work-up during this hospital visit consisted of: Patient has pancytopenia Sodium is 133 and most current is 138. Most recent calcium is 8.5. Ammonia is less than 9. Vitamin B12 is 1029 Folate is more than 20. Larios virus PCR was not detected that. Hepatitis panel so far is non-reactive. Patient had CT of the head on 04/11/2022 2 reported as age-related atrophy and chronic small vessel ischemic changes without acute intracranial process seen at this time. I personally reviewed the CT of the head and I agree with the impression. Patient also had MRI lumbar spine which is reported as numerous compression fraction throughout the vertebral column is noted on the computed tomography scan. Large disruptive lytic lesion suspected on T12. Cortical step-off posteriorly likely represent initial finding of pathological fracture. This appears to be likely related to metastatic or multiple myeloma. Numerous additional compression fraction most severe at T11 also likely pathological. CT thoracic and lumbar is reported as known multiple myeloma. Diffuse osteopenia. Multiple vertebral body collapse with suspected acute fracture of T12 vertebral body likely secondary due to underlying multiple myeloma lesion. Review of Systems Review of system: The 12 point system was reviewed and apparent positive and negative per HPI. 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, gait dysfunction-uses walker, bilateral pedal/ankle edema, PE 08/2019, chronic low back pain, past vertebral fractures, minimal CAD, shingelles twice, past R heel wound, elevated lipids in the past, History of Any Multi-Drug Resistant Organisms: None Reported Past Surgical History: Heart Catheterization, Orthopedic Surgery Additional Past Surgical History / Comment(s): excision of uvular lesion(benign) 2009, colonoscopy, dave knee arthroscopy, rt rotator cuff sx, moles removed from back(benign), bone marrow aspiration/bx, stem cell transplant 2015, Past Anesthesia/Blood Transfusion Reactions: No Reported Reaction Past Psychological History: No Psychological Hx Reported Smoking Status: Never smoker Past Alcohol Use History: None Reported Past Drug Use History: None Reported - Past Family History Father Family Medical History: Renal Disease, Vascular Disorder Additional Family Medical History / Comment(s): aaa. Father is . Mother Family Medical History: Hypertension Additional Family Medical History / Comment(s): mom is healthy Medications and Allergies Home Medications Medication Instructions Recorded Confirmed Type Famotidine [Pepcid] 20 mg PO DAILY PRN 04/15/19 04/05/22 History Gabapentin [Neurontin] 300 mg PO TID 04/15/19 04/05/22 History dexAMETHasone 8 mg PO DIRECTED 04/15/19 04/05/22 History Acyclovir 400 mg PO BID 08/24/19 04/05/22 History Pomalyst 3mg 3 mg PO DIRECTED 08/24/19 04/05/22 History Aspirin 81 mg PO DAILY #30 chewable 08/26/19 04/05/22 Rx Apixaban [Eliquis] 5 mg PO BID 10/03/19 04/05/22 History Nitroglycerin Sl Tabs [Nitrostat] 0.4 mg SUBLINGUAL Q5M PRN 10/03/19 04/05/22 History Calcium Carbonate/Vitamin D3 1 cap PO DAILY 01/10/20 04/05/22 History [Calcium 600-Vit D3 20 Mcg (800 Iu)] Potassium Chloride ER [K-Dur 20] 20 meq PO DAILY 01/10/20 04/05/22 History Furosemide [Lasix] 20 mg PO DAILY PRN 05/31/21 04/05/22 History Acetaminophen Tab [Tylenol] 650 mg PO Q6HR PRN tab 06/03/21 04/05/22 Rx Multivitamins, Thera [Multivitamin 1 tab PO DAILY 12/16/21 04/05/22 History (formulary)] oxyCODONE HCL [oxyCODONE HCL (IR)] 10 - 20 mg PO Q4H PRN 03/25/22 04/05/22 History Cephalexin [Keflex] 500 mg PO Q6HR 1 Days #40 cap 04/03/22 04/05/22 Rx Terbinafine 1% Cream [LamISIL] 1 applic TOPICAL TID 90 Days #15 gm 04/03/2203/19 Rx Allergies Allergy/AdvReac Type Severity Reaction Status Date / Time sulfamethoxazole Allergy Rash/Hives Verified 04/05/22 21:45 [From Bactrim] trimethoprim [From Bactrim] Allergy Rash/Hives Verified 04/05/22 21:45 Physical Examination - Vital Signs Vital Signs: Vital Signs Temp Pulse Pulse Resp BP Pulse Ox 04/12/22 12:23 98.6 F 92 137/90 96 04/12/22 05:00 99.6 F 90 16 124/53 94 L 04/11/22 21:00 98.3 F 60 16 141/88 94 L Intake and Output 04/11/22 04/12/22 04/12/22 22:59 06:59 14:59 Intake Total 200 Balance 200 Intake: Oral 200 Other: Voiding Method Diaper Diaper # Voids 2 3 1 # Bowel Movements 1 GENERAL: The patient is lying in bed and does not seem in acute distress. CHEST: The heart rate is regular rate rhythm. No murmurs to auscultation. LUNG: Clear to auscultation bilaterally no wheezing noted throughout. Not labored breathing. ABDOMEN/GI: Bowel sounds present in all 4 quadrants. No tenderness to palpation throughout. NEUROLOGICAL: Limited because of his condition/cooperation. Higher mental function: The patient is drowsy but is awakeable to voice. Is oriented to self. Did not respond to place or time. He is able to name objects (pen and watch) but slow in responding. Patient is following simple commands but again slow in performing tasks. Could not assess language. No neglect. , Cranial nerves: The pupils are round, equal and reactive to light. Visual acevedo are full to confrontation throughout. No facial weakness. No dysarthria. Rest limited. Motor: The strength is limited assessment of individual muscles because of cooperations. But moving all uppers and lowers above gravity. Normal tone and bulk. Cerebellum: Unable to assess. Sensation: Unable to assess. Results - Laboratory Findings CBC and BMP: 04/12/22 06:05 04/12/22 06:05 Abnormal Lab Findings: Abnormal Labs 04/05/22 04/05/22 04/06/22 22:00 22:00 00:30 WBC RBC 3.24 L Hgb 10.1 L Hct 31.1 L MCHC RDW 20.3 H Plt Count 88 L MPV Absolute Nucleated RBC Immature Gran # Neutrophils # Lymphocytes # 0.1 L NRBC/100 WBC Diff Immature Plt Fraction ESR Sodium 133 L Potassium 5.2 H Chloride Carbon Dioxide BUN 21 H Creatinine 1.83 H Est GFR (CKD-EPI)AfAm Est GFR (CKD-EPI)NonAf BUN/Creatinine Ratio Glucose POC Glucose (mg/dL) Calcium Iron TIBC Transferrin Ferritin Lactate Dehydrogenase Creatine Kinase C-Reactive Protein 20.9 H Total Protein 5.4 L Total Protein (PEP) Albumin 2.9 L Albumin (PEP) Albumin/Globulin Ratio Clduh-0-Mqxlaovpd Elzmm-2-Frkzgqhku Gamma Globulins Vitamin B12 Urine Protein 1+ H Urine Blood Trace H Urine Bacteria Rare H IgG Complement C3 04/07/22 04/07/22 04/07/22 05:59 05:59 09:43 WBC 2.87 L RBC 3.00 L Hgb 8.8 L Hct 29.0 L MCHC 30.3 L RDW 21.4 H Plt Count 75 L MPV Absolute Nucleated RBC 0.02 H Immature Gran # Neutrophils # Lymphocytes # NRBC/100 WBC Diff 0.7 H Immature Plt Fraction 13.0 H ESR 92 H Sodium Potassium Chloride Carbon Dioxide BUN Creatinine 1.9 H Est GFR (CKD-EPI)AfAm 41.1 L Est GFR (CKD-EPI)NonAf 35.4 L BUN/Creatinine Ratio 8.42 L Glucose POC Glucose (mg/dL) Calcium 8.2 L Iron TIBC Transferrin Ferritin Lactate Dehydrogenase 449 H Creatine Kinase 18 L C-Reactive Protein 23.80 H Total Protein Total Protein (PEP) Albumin Albumin (PEP) Albumin/Globulin Ratio Imgwc-2-Cfvppliic Cypfd-6-Ukmutiaas Gamma Globulins Vitamin B12 1029.0 H Urine Protein Urine Blood Urine Bacteria IgG Complement C3 224.0 H 04/07/22 04/07/22 04/07/22 09:43 09:43 09:49 WBC 3.1 L RBC 3.16 L Hgb 10.0 L Hct 30.8 L MCHC RDW 19.6 H Plt Count 104 L MPV Absolute Nucleated RBC Immature Gran # Neutrophils # Lymphocytes # 0.1 L NRBC/100 WBC Diff Immature Plt Fraction ESR Sodium Potassium Chloride Carbon Dioxide BUN Creatinine Est GFR (CKD-EPI)AfAm Est GFR (CKD-EPI)NonAf BUN/Creatinine Ratio Glucose POC Glucose (mg/dL) Calcium Iron TIBC Transferrin Ferritin Lactate Dehydrogenase Creatine Kinase C-Reactive Protein Total Protein Total Protein (PEP) 5.3 L Albumin Albumin (PEP) 2.52 L Albumin/Globulin Ratio Wmkzw-8-Qtemjpdht 0.61 H Shial-6-Anromelln 1.10 H Gamma Globulins 0.24 L Vitamin B12 Urine Protein Urine Blood Urine Bacteria IgG 274.0 L Complement C3 04/08/22 04/08/22 04/08/22 05:42 05:42 05:42 WBC 2.53 L RBC 2.65 L Hgb 7.7 L Hct 25.5 L MCHC 30.2 L RDW 20.8 H Plt Count 73 L MPV 12.7 H Absolute Nucleated RBC 0.02 H Immature Gran # 0.05 H Neutrophils # Lymphocytes # 0.06 L NRBC/100 WBC Diff 0.8 H Immature Plt Fraction 12.6 H ESR Sodium 134 L Potassium 3.3 L Chloride Carbon Dioxide BUN Creatinine 2.02 H Est GFR (CKD-EPI)AfAm Est GFR (CKD-EPI)NonAf BUN/Creatinine Ratio Glucose POC Glucose (mg/dL) Calcium 7.7 L Iron 43 L TIBC 202 L Transferrin 144.0 L Ferritin 688.0 H Lactate Dehydrogenase Creatine Kinase C-Reactive Protein Total Protein 4.4 L Total Protein (PEP) Albumin 2.4 L Albumin (PEP) Albumin/Globulin Ratio Munes-9-Yhkjyssfl Qrxlk-5-Hintggnsf Gamma Globulins Vitamin B12 Urine Protein Urine Blood Urine Bacteria IgG Complement C3 04/08/22 04/08/22 04/09/22 14:56 22:09 05:54 WBC 2.1 L 2.55 L RBC 2.64 L 2.75 L Hgb 8.1 L D 8.1 L Hct 25.6 L 26.0 L MCHC 31.2 L RDW 19.3 H 20.6 H Plt Count 75 L 87 L MPV Absolute Nucleated RBC 0.05 H Immature Gran # Neutrophils # Lymphocytes # NRBC/100 WBC Diff 2.0 H Immature Plt Fraction ESR Sodium Potassium Chloride Carbon Dioxide BUN Creatinine Est GFR (CKD-EPI)AfAm Est GFR (CKD-EPI)NonAf BUN/Creatinine Ratio Glucose POC Glucose (mg/dL) 123 H Calcium Iron TIBC Transferrin Ferritin Lactate Dehydrogenase Creatine Kinase C-Reactive Protein Total Protein Total Protein (PEP) Albumin Albumin (PEP) Albumin/Globulin Ratio Auwpd-4-Crpqbkojg Kbrfn-4-Jxqqobpex Gamma Globulins Vitamin B12 Urine Protein Urine Blood Urine Bacteria IgG Complement C3 04/09/22 04/10/22 04/10/22 05:54 09:01 09:01 WBC 2.2 L RBC 2.71 L Hgb 8.6 L Hct 26.7 L MCHC RDW 20.0 H Plt Count 92 L MPV Absolute Nucleated RBC Immature Gran # Neutrophils # Lymphocytes # NRBC/100 WBC Diff Immature Plt Fraction ESR Sodium 133 L 136 L Potassium 3.1 L Chloride Carbon Dioxide 21 L BUN Creatinine 2.19 H 1.98 H Est GFR (CKD-EPI)AfAm Est GFR (CKD-EPI)NonAf BUN/Creatinine Ratio Glucose 101 H 136 H POC Glucose (mg/dL) Calcium 8.1 L 8.2 L Iron TIBC Transferrin Ferritin Lactate Dehydrogenase Creatine Kinase C-Reactive Protein Total Protein 5.4 L Total Protein (PEP) Albumin 2.6 L Albumin (PEP) Albumin/Globulin Ratio Tapyn-7-Xkvktbmvu Cslar-5-Gnhqsgece Gamma Globulins Vitamin B12 Urine Protein Urine Blood Urine Bacteria IgG Complement C3 04/10/22 04/11/22 04/11/22 20:25 06:38 06:38 WBC 2.44 L RBC 2.67 L Hgb 7.9 L Hct 25.7 L MCHC 30.7 L RDW 20.4 H Plt Count 86 L MPV Absolute Nucleated RBC 0.08 H Immature Gran # 0.11 H Neutrophils # 1.62 L Lymphocytes # 0.12 L NRBC/100 WBC Diff 3.3 H Immature Plt Fraction ESR Sodium Potassium 3.0 L Chloride Carbon Dioxide BUN Creatinine 2.0 H Est GFR (CKD-EPI)AfAm 38.6 L Est GFR (CKD-EPI)NonAf 33.3 L BUN/Creatinine Ratio 5.70 L Glucose POC Glucose (mg/dL) 161 H Calcium 8.4 L Iron TIBC Transferrin Ferritin Lactate Dehydrogenase Creatine Kinase C-Reactive Protein Total Protein 5.2 L Total Protein (PEP) Albumin 2.7 L Albumin (PEP) Albumin/Globulin Ratio 1.08 L Kvwam-4-Epzibldgn Gvghb-1-Fkijqixqa Gamma Globulins Vitamin B12 Urine Protein Urine Blood Urine Bacteria IgG Complement C3 04/12/22 04/12/22 06:05 06:05 WBC 2.8 L RBC 2.87 L Hgb 9.1 L Hct 27.9 L MCHC RDW 19.7 H Plt Count 93 L MPV Absolute Nucleated RBC Immature Gran # Neutrophils # Lymphocytes # NRBC/100 WBC Diff Immature Plt Fraction ESR Sodium Potassium Chloride 108 H Carbon Dioxide BUN Creatinine 1.74 H Est GFR (CKD-EPI)AfAm Est GFR (CKD-EPI)NonAf BUN/Creatinine Ratio Glucose POC Glucose (mg/dL) Calcium Iron TIBC Transferrin Ferritin Lactate Dehydrogenase Creatine Kinase C-Reactive Protein Total Protein 5.6 L Total Protein (PEP) Albumin 2.7 L Albumin (PEP) Albumin/Globulin Ratio Bwypm-2-Etyhwmmbc Mrcvl-8-Bmzknbmiq Gamma Globulins Vitamin B12 Urine Protein Urine Blood Urine Bacteria IgG Complement C3 Assessment and Plan Assessment: Myoclonic jerk likely due to metabolic abnormality with Gabapentin effect. Rule out true epileptic in nature Metabolic encephalopathy. Also due to underlying cellulitis and medication effect (was recently on fentanyl patch) Multiple myeloma undergoing chemotherapy and has pancytopenia Left lower extremity cellulitis with abscess Acute on chronic kidney insufficiency T12 fracture with multiple vertebral fracture due to multiple myeloma. Lumbar Spondylosis with multiple neuroformainal stenosis. History of pulmonary embolism on eliquis history of coronary artery disease dyslipidemia Plan: I ordered an EEG which will not be performed until this Thursday. Ordered MRI of the brain with and without to rule out any intracranial process. MRI will likely be performed this Thursday but if he improves by Thursday then can discontinue MRI. Ordered TSH. If possible to go down on gabapentin from 200 mg 1 tablet twice a day to 100 mg 1 tablet 3 times a day ID is on board Orthopedic team is on board We'll defer the rest of the medical management to primary team The plan is discussed with the patient's son (who is at bedside) and primary te am. Thank you for the consultation. Harsha Kern M.D. Urologist was Time with Patient: Greater than 30
--- NOTE | 2022-04-12 15:18 | P.PN ---
Subjective Progress Note Date: 04/12/22 (delayed charting seen 0845) Patient is 67-year-old male with multiple myeloma currently undergoing chemoth erapy with Dr. Mensah, prior pulmonary embolism, cellulitis, coronary artery disease, and dyslipidemia who presented to the ER with complaints of left lower extremity erythema and pain. Patient had been recently seen at the hospital and discharged on 04/03 with oral Keflex. On arrival to the ER he was febrile to 100.8, CRP was elevated at 20.9. He was admitted for treatment of left lower extremity cellulitis in the setting of chemotherapy and outpatient failure. He was started on cefepime and vancomycin. Infectious disease was consulted. Patient undewent I adn D of left foot abscess on 04/07 with vascular surgery. Nephrology was conuslted due to DUNCAN on CKD 3. Ortho spine was consulted due to worsening back pain. He was Degenerative disc disease, lumbar spine neuroforaminal stenosis and multiple vertebral compression fractures with worst one at T12. Orthospine recommends bracing at this time. Plan is for 2 weeks of IV ABX Imaging: Chest x-ray-no acute process CT left lower leg: Diffuse subcutaneous edema entire leg, focal area of fluid on the dorsum of the midfoot over the second metatarsal that could be an abscess Ct thorasic and lumbar spine: known MM, diffuse osteopenia, acute T12 vertebral body fracture likelt due to MM Lumbar spine MRI: T12 pathologic fracture. Patient seen and examined at bedside with family present. Very lethargic, not answering questions appropriately at home. General: nontoxic, no distress, appears at stated age Derm: warm, dry, dressing in place over left foot Head: atraumatic, normocephalic, symmetric Eyes: EOMI, no lid lag, anicteric sclera Mouth: no lip lesion, mucus membranes moist Cardiovascular: S1S2 reg, no murmur, positive posterior tibial pulse bilateral, Lungs: CTA bilateral, no rhonchi, no rales , no accessory muscle use Abdominal: soft, nontender to palpation, no guarding, no appreciable organomegaly Ext: no gross muscle atrophy, no edema, no contractures Neuro: CN II-XI grossly intact, no focal neuro deficits, jerking movements noted of bilateral upper extremities Psych: lethargic, oriented X 3 when awake, appropriate affect Assessment/plan:ct Left lower extremity cellulitis with abscess - s/p I and D 04/07 - vanco/cefepime discontinued and stared on cefazolin by ID - Midline ordered, plan is for 2 weeks of IV abx. - wound care per vascular - ID recs - Await final cultures Multiple myeloma Pancytopenia - oncology recs - CBC stable, continue to monitor Acute toxic metabolic encephalopathy - Head CT negative - Ammonia level normal - stop fentanyl, stop oxy, start scheduled IV acetaminophen - decrease gabapentin - consult neurology given monoclonic jerking - supportive care T 12 fracture, multiple vertebral fractures due to MM, lumbar spine neuroforaminal stenosis, intractable pain on chronic pain - medication changes as above. - Dr. Rubio plan at this time due to infection is LSO brace and pain control. D/W Dr. Miranda will need 2 weeks of IV ABX. - Dr. Hill no indication for repeat radiation. DUNCAN on CKD 3 due to ATN Hyponatremia, resolved - nephro recs appreciated: may need renal biopsy for definitive diagnosis - hold diuretics - monitor vanco levels closely. Chronic: Prior pulmonary embolism on Dilantin Dyslipidemia Gait dysfunction Chronic low back pain Coronary artery disease DVT prophylaxis: eliquis Discussed with: patient, family, nursing, Dr. Kern Anticipated discharge: pending clinical course Anticipated discharge place: home A total of 30 minutes was spent on the care of this complex patient more than 50% of the time was spent in counseling and care coordination. Active Medications Acetaminophen (Acetaminophen Tab 325 Mg Tab) 650 mg PO Q6HR PRN PRN Reason: Mild Pain or Fever > 100.5 Last Admin: 04/06/22 20:31 Dose: 650 mg Acyclovir (Acyclovir 200 Mg Cap) 400 mg PO BID [facility] Last Admin: 04/12/22 08:09 Dose: 400 mg Apixaban (Apixaban 5 Mg Tab) 5 mg PO BID [facility]; Protocol Last Admin: 04/12/22 08:10 Dose: 5 mg Famotidine (Famotidine 20 Mg Tab) 20 mg PO DAILY PRN PRN Reason: Heartburn Last Admin: 04/12/22 00:07 Dose: 20 mg Gabapentin (Gabapentin 100 Mg Cap) 200 mg PO TID [facility] Cefazolin Sodium 2 gm/ Sodium (Chloride) 50 mls @ 100 mls/hr IVPB Q8HR [facility]; Protocol Last Admin: 04/12/22 08:10 Dose: 100 mls/hr Acetaminophen 1,000 mg/ IV (Solution) 100 mls @ 400 mls/hr IVPB Q6H [facility] Stop: 04/13/22 04:14 Last Admin: 04/12/22 09:37 Dose: 400 mls/hr Lactated Ringer's (Lactated Ringers) 1,000 mls @ 75 mls/hr IV .[id number] [facility] Last Admin: 04/12/22 12:36 Dose: 75 mls/hr Multivitamins (Multivitamins, Thera 1 Each Tab) 1 each PO DAILY [facility] Last Admin: 04/12/22 08:10 Dose: 1 each Objective - Vital Signs Vital signs: Vital Signs Temp 98.6 F 04/12/22 12:23 Pulse 92 04/12/22 12:23 Resp 16 04/12/22 05:00 BP 137/90 04/12/22 12:23 Pulse Ox 96 04/12/22 12:23 FiO2 Intake & Output 04/11/22 04/12/22 04/12/22 18:59 06:59 18:59 Intake Total 200 Balance 200 Intake: Oral 200 Other: Voiding Method Diaper Diaper # Voids 2 3 1 # Bowel Movements 1 - Labs CBC & Chem 7: 04/12/22 06:05 04/12/22 06:05 Labs: Abnormal Lab Results - Last 24 Hours (Table) 04/12/22 04/12/22 Range/Units 06:05 06:05 WBC 2.8 L (3.8-10.6) k/uL RBC 2.87 L (4.30-5.90) m/uL Hgb 9.1 L (13.0-17.5) gm/dL Hct 27.9 L (39.0-53.0) % RDW 19.7 H (11.5-15.5) % Plt Count 93 L (150-450) k/uL Chloride 108 H (98-107) mmol/L Creatinine 1.74 H (0.66-1.25) mg/dL Total Protein 5.6 L (6.3-8.2) g/dL Albumin 2.7 L (3.5-5.0) g/dL Microbiology - Last 24 Hours (Table) 04/05/22 22:00 Blood Culture - Final Blood No Growth after 144 hours 04/05/22 22:40 Blood Culture - Final Blood No Growth after 144 hours
[2022-04-12] MEDS: GABAPENTIN 100 MG CAP PO SCH ×2 (15:39→21:18)
[2022-04-12 16:49] VITALS: BMI 30.8
[2022-04-12 21:09] LABS: T4, Free (Free Thyroxine) 2.63 ng/dL (0.78-2.19)
--- NOTE | 2022-04-13 00:27 | P.PN ---
Subjective Progress Note Date: 04/11/22 Principal diagnosis: Left foot abscess and cellulitis Patient is a 67-year-old male presenting to the hospital with a fever and chills and left foot and leg pain swelling and redness has been diagnosed with a left foot abscess and cellulitis. Patient is status post surgical drainage of the abscess completed on 04/07/2022 On today's evaluation that is 04/11/2022, the patient remains to be afebrile, the patient pain to the left foot or left leg is currently controlled, patient denies chest pain or shortness of breath or cough no abdominal pain or diarrhea Objective - Vital Signs Vital signs: Vital Signs Temp 98.5 F 04/11/22 04:38 Pulse 78 04/11/22 04:38 Resp 18 04/11/22 04:38 BP 143/84 04/11/22 04:38 Pulse Ox 96 04/11/22 04:38 FiO2 Intake & Output 04/10/22 04/11/22 04/11/22 18:59 06:59 18:59 Intake Total 118 100 Balance 118 100 Intake: Intake, IV Titration 100 Amount Cefepime 2 gm In Sodium 100 Chloride 0.9% 100 ml @ 25 mls/hr IVPB Q12H [facility] Rx# :[id number] Oral 118 Other: Voiding Method Toilet Urinal Urinal # Voids 1 - Exam GENERAL DESCRIPTION: An elderly male lying in bed in no distress RESPIRATORY SYSTEM: Unlabored breathing , decreased breath sounds at bases HEART: S1 S2 regular rate and rhythm , ABDOMEN: Soft , no tenderness EXTREMITIES: Left leg and foot is currently No drainage on the dressing - Labs CBC & Chem 7: 04/12/22 06:05 04/12/22 06:05 Labs: Abnormal Lab Results - Last 24 Hours (Table) 04/10/22 04/10/22 04/10/22 Range/Units 09:01 09:01 20:25 WBC (4.50-10.00) X 10*3/uL RBC (4.40-5.60) X 10*6/uL Hgb (13.0-17.0) g/dL Hct (39.6-50.0) % MCHC (32.0-37.0) g/dL RDW (11.5-14.5) % Plt Count 92 L (150-450) k/uL Absolute Nucleated RBC (0.00-0.00) X 10*3/uL Immature Gran # (0.00-0.04) X 10*3/uL Neutrophils # (1.80-7.70) X 10*3/uL Lymphocytes # (0.90-5.00) X 10*3/uL NRBC/100 WBC Diff (0.0-0.0) /100 WBCS Sodium 136 L (137-145) mmol/L Carbon Dioxide 21 L (22-30) mmol/L Creatinine 1.98 H (0.66-1.25) mg/dL Glucose 136 H (74-99) mg/dL POC Glucose (mg/dL) 161 H (70-110) mg/dL Calcium 8.2 L (8.4-10.2) mg/dL Total Protein 5.4 L (6.3-8.2) g/dL Albumin 2.6 L (3.5-5.0) g/dL 04/11/22 Range/Units 06:38 WBC 2.44 L (4.50-10.00) X 10*3/uL RBC 2.67 L (4.40-5.60) X 10*6/uL Hgb 7.9 L (13.0-17.0) g/dL Hct 25.7 L (39.6-50.0) % MCHC 30.7 L (32.0-37.0) g/dL RDW 20.4 H (11.5-14.5) % Plt Count 86 L (150-450) k/uL Absolute Nucleated RBC 0.08 H (0.00-0.00) X 10*3/uL Immature Gran # 0.11 H (0.00-0.04) X 10*3/uL Neutrophils # 1.62 L (1.80-7.70) X 10*3/uL Lymphocytes # 0.12 L (0.90-5.00) X 10*3/uL NRBC/100 WBC Diff 3.3 H (0.0-0.0) /100 WBCS Sodium (137-145) mmol/L Carbon Dioxide (22-30) mmol/L Creatinine (0.66-1.25) mg/dL Glucose (74-99) mg/dL POC Glucose (mg/dL) (70-110) mg/dL Calcium (8.4-10.2) mg/dL Total Protein (6.3-8.2) g/dL Albumin (3.5-5.0) g/dL Microbiology - Last 24 Hours (Table) 04/05/22 22:40 Blood Culture - Preliminary Blood No Growth after 120 hours 04/05/22 22:00 Blood Culture - Preliminary Blood No Growth after 120 hours Assessment and Plan (1) Cellulitis Current Visit: Yes Status: Acute Priority: High Code(s): L03.90 - CELLULITIS, UNSPECIFIED SNOMED Code(s): 536399176 Plan: 1patient presented to hospital with fever weakness increasing pain and swelling to the left foot in this patient recently treated for cellulitis CT at that time did not show any abscess and there is a question of a necrotizing infection however the patient was evaluated by orthopedic and recommended no surgical intervention patient now clinically has evidence of left foot abscess could be responsible for his recurrent symptoms. 2 CT of the left foot did shows evidence of abscess and the patient is status post drainage of the abscess on 04/07/2022 however culture are so far negative for any resistant pathogen 3we will discontinue vancomycin and cefepime and switch antibiotic therapy to cefazolin 2 g every 8 hours Time with Patient: Less than 30
--- NOTE | 2022-04-13 00:28 | P.PN ---
Subjective Progress Note Date: 04/12/22 Principal diagnosis: Left foot abscess and cellulitis Patient is a 67-year-old male presenting to the hospital with a fever and chills and left foot and leg pain swelling and redness has been diagnosed with a left foot abscess and cellulitis. Patient is status post surgical drainage of the abscess completed on 04/07/2022 On today's evaluation that is 04/12/2022, the patient denies any fever or chills, the patient is complaining of more pain to the back area and pain to the left foot or left leg is currently controlled, patient denies chest pain or shortness of breath or cough no abdominal pain or diarrhea Objective - Vital Signs Vital signs: Vital Signs Temp 98.6 F 04/12/22 12:23 Pulse 92 04/12/22 12:23 Resp 16 04/12/22 05:00 BP 137/90 04/12/22 12:23 Pulse Ox 96 04/12/22 12:23 FiO2 Intake & Output 04/12/22 04/12/22 04/13/22 06:59 18:59 06:59 Weight 97.522 kg Other: Voiding Method Diaper Diaper # Voids 3 4 # Bowel Movements 1 - Exam GENERAL DESCRIPTION: An elderly male lying in bed in no distress RESPIRATORY SYSTEM: Unlabored breathing , decreased breath sounds at bases HEART: S1 S2 regular rate and rhythm , ABDOMEN: Soft , no tenderness EXTREMITIES: Left leg and foot is currently No drainage on the dressing - Labs CBC & Chem 7: 04/12/22 06:05 04/12/22 06:05 Labs: Abnormal Lab Results - Last 24 Hours (Table) 04/12/22 04/12/22 04/12/22 Range/Units 06:05 06:05 13:57 WBC 2.8 L (3.8-10.6) k/uL RBC 2.87 L (4.30-5.90) m/uL Hgb 9.1 L (13.0-17.5) gm/dL Hct 27.9 L (39.0-53.0) % RDW 19.7 H (11.5-15.5) % Plt Count 93 L (150-450) k/uL Chloride 108 H (98-107) mmol/L Creatinine 1.74 H (0.66-1.25) mg/dL Total Protein 5.6 L (6.3-8.2) g/dL Albumin 2.7 L (3.5-5.0) g/dL TSH 7.510 H (0.465-4.680) mIU/L Free T4 2.63 H (0.78-2.19) ng/dL Microbiology - Last 24 Hours (Table) 04/05/22 22:00 Blood Culture - Final Blood No Growth after 144 hours 04/05/22 22:40 Blood Culture - Final Blood No Growth after 144 hours Assessment and Plan (1) Cellulitis Current Visit: Yes Status: Acute Priority: High Code(s): L03.90 - CELLULITIS, UNSPECIFIED SNOMED Code(s): 715803593 Plan: 1patient presented to hospital with fever weakness increasing pain and swelling to the left foot in this patient recently treated for cellulitis CT at that time did not show any abscess and there is a question of a necrotizing infection however the patient was evaluated by orthopedic and recommended no surgical intervention patient now clinically has evidence of left foot abscess could be responsible for his recurrent symptoms. 2 CT of the left foot did shows evidence of abscess and the patient is status post drainage of the abscess on 04/07/2022 however culture are so far negative for any resistant pathogen 3patient to continue with cefazolin 2 g every 8 hours and local wound care to the leg as often Time with Patient: Less than 30
[2022-04-13] MEDS: ACETAMINOPHEN IV (For NPO) 1,000 MG in EMPTY BAG 1 BAG IVPB SCH (04:21)
[2022-04-13 06:57] LABS: Anisocytosis Moderate; HCT 27.3 % (39.0-53.0); HGB 8.7 gm/dL (13.0-17.5); Hypochromasia Moderate; MCH 31.1 pg (25.0-35.0); MCHC 31.9 g/dL (31.0-37.0); MCV 97.4 fL (80.0-100.0); Macrocytosis Slight; Mean Platelet Volume 10.1; Poikilocytosis Slight; RDW 20.4 % (11.5-15.5); WBC 2.3 k/uL (3.8-10.6)
[2022-04-13 07:01] LABS: Platelet Count 94 k/uL (150-450)
[2022-04-13 07:05] LABS: African American GFR (CKD) 43 (>60 ml/min/1.73 sqM); Anion Gap 8 mmol/L; Blood Urea Nitrogen 12 mg/dL (9-20); Calcium 8.4 mg/dL (8.4-10.2); Carbon Dioxide 24 mmol/L (22-30); Chloride 105 mmol/L (98-107); Glucose 80 mg/dL (74-99); Non-African American GFR(CKD) 38 (>60 ml/min/1.73 sqM); Sodium 137 mmol/L (137-145)
[2022-04-13] MEDS ORDERED: Potassium Replacement Protocol 1 EACH MISC MISCELLANE PRN (07:18)
--- NOTE | 2022-04-13 08:21 | P.PN ---
Subjective Progress Note Date: 04/13/22 Saw the patient at bedside and he is accompanied by his . There is somewhat of a language barrier on standing the about clear history but she states that that the patient is showing some improvement compared to initial presentation. She stated she had some right hand upper extremity tremor but m ostly it was distal but no jerk in of his body but she stated that she drastically improved now. She stated that when the patient wasn't home he was on his regular dose of oxycodone for his multiple myeloma. He did not have his patch for pain. Patient is on a chemotherapy for his multiple myeloma. She stated that in the past the patient was on a different chemotherapy as well as steroids and had confusion. It seems that the patient had an episode similar to this years back and he was told he had delirium. Objective - Vital Signs Vital signs: Vital Signs Temp 97.9 F 04/13/22 04:22 Pulse 68 04/13/22 04:22 Resp 16 04/13/22 04:22 BP 150/86 04/13/22 04:22 Pulse Ox 94 L 04/13/22 04:22 FiO2 Intake & Output 04/12/22 04/13/22 04/13/22 18:59 06:59 18:59 Intake Total 1100 Balance 1100 Weight 97.522 kg Intake: Intake, IV Titration 1100 Amount ACETAMINOPHEN IV (For NPO 200 ) 1,000 mg In Empty Bag 1 bag @ 400 mls/hr IVPB Q6H [facility] Rx#:[id number] Lactated Ringers 1,000 ml 900 @ 75 mls/hr IV .[id number] [facility] Rx#:[id number] Other: Voiding Method Diaper Diaper # Voids 4 # Bowel Movements 1 1 - Exam GENERAL: The patient is lying in bed and does not seem in acute distress. INTEGUMENTARY: Has guage wrapped on the left lower extremity distally for his lower extremity cellulitis. NEUROLOGICAL: Limited because of his condition/cooperation. Higher mental function: The patient is drowsy but is awakeable to voice. Is oriented to self, place, stated the year is 2021 but would the repeat answer for the month. He is slow to respond. He is able to name objects correctly (watch and phone). He is able to follow simple commands. No neglect. , Cranial nerves: The pupils are round, equal and reactive to light. Visual acevedo are full to confrontation throughout. No facial weakness. No dysarthria. Rest limited. Motor: The strength is limited assessment of individual muscles because of cooperations. But moving all uppers and lowers above gravity and there does not appear any focality. Normal tone and bulk. No spontaneous movement. No jerks of body. Cerebellum: Normal to finger bilaterally. Sensation: Unable to assess. Some of the work-up during this hospital visit consisted of: Patient has pancytopenia Sodium is 133 and most current is 138. Most recent calcium is 8.5. Ammonia is less than 9. Vitamin B12 is 1029 Folate is more than 20. Larios virus PCR was not detected that. Hepatitis panel so far is non-reactive. Patient had CT of the head on 04/11/2022 2 reported as age-related atrophy and chronic small vessel ischemic changes without acute intracranial process seen at this time. I personally reviewed the CT of the head and I agree with the impression. Patient also had MRI lumbar spine which is reported as numerous compression fraction throughout the vertebral column is noted on the computed tomography scan. Large disruptive lytic lesion suspected on T12. Cortical step-off posteriorly likely represent initial finding of pathological fracture. This appears to be likely related to metastatic or multiple myeloma. Numerous additional compression fraction most severe at T11 also likely pathological. CT thoracic and lumbar is reported as known multiple myeloma. Diffuse osteopenia. Multiple vertebral body collapse with suspected acute fracture of T12 vertebral body likely secondary due to underlying multiple myeloma lesion. TSH: 7.510 and free T4: 2.63 - Labs CBC & Chem 7: 04/13/22 06:16 04/13/22 06:16 Labs: Abnormal Lab Results - Last 24 Hours (Table) 04/12/22 04/13/22 04/13/22 Range/Units 13:57 06:16 06:16 WBC 2.3 L (3.8-10.6) k/uL RBC 2.80 L (4.30-5.90) m/uL Hgb 8.7 L (13.0-17.5) gm/dL Hct 27.3 L (39.0-53.0) % RDW 20.4 H (11.5-15.5) % Plt Count 94 L (150-450) k/uL Potassium (3.5-5.1) mmol/L Creatinine 1.81 H (0.66-1.25) mg/dL TSH 7.510 H (0.465-4.680) mIU/L Free T4 2.63 H (0.78-2.19) ng/dL 04/13/22 Range/Units 06:16 WBC (3.8-10.6) k/uL RBC (4.30-5.90) m/uL Hgb (13.0-17.5) gm/dL Hct (39.0-53.0) % RDW (11.5-15.5) % Plt Count (150-450) k/uL Potassium 3.0 L (3.5-5.1) mmol/L Creatinine 1.81 H (0.66-1.25) mg/dL TSH (0.465-4.680) mIU/L Free T4 (0.78-2.19) ng/dL Assessment and Plan Assessment: Reported Myoclonic jerks (per had tremors of hands)----resolved likely due to metabolic abnormality with Gabapentin effect. Seems less likely seizure Metabolic encephalopathy. Also due to underlying cellulitis and medication effect (pain medication, Abx, and possibly chemotherapy)---improving but not back to baseline Delerium due to above. Multiple myeloma undergoing chemotherapy and has pancytopenia Left lower extremity cellulitis with abscess Acute on chronic kidney insufficiency T12 fracture with multiple vertebral fracture due to multiple myeloma. Lumbar Spondylosis with multiple neuroformainal stenosis. History of pulmonary embolism on eliquis history of coronary artery disease dyslipidemia Plan: Pending EEG which will not be performed until this Thursday. Ordered MRI of the brain with and without to rule out any intracranial process. MRI will likely be performed this Thursday. If possible to go down on gabapentin from 200 mg 1 tablet twice a day to 100 mg 1 tablet 3 times a day if patient condition worsens. If possible try to avoid narcoits, opiates or sedation which can affect patient mentation/neurological examination. Will defer thryorid management to primary team. ID is on board Orthopedic team is on board We'll defer the rest of the medical management to primary team The plan is discussed with the patient's (who is at bedside). Dr. Rivera will start neurology service tomorrow AM. Harsha Kern M.D. Urologist was Time with Patient: Less than 30
[2022-04-13] MEDS: ACYCLOVIR 200 MG CAP PO SCH ×2 (08:22→21:30)
[2022-04-13] MEDS: APIXABAN 5 MG TAB PO SCH ×2 (08:22→21:30)
[2022-04-13] MEDS: GABAPENTIN 100 MG CAP PO SCH ×3 (08:22→21:30)
[2022-04-13] MEDS: POTASSIUM CHLORIDE ER 20 MEQ TAB.ER PO SCH ×3 (08:22→11:35)
[2022-04-13] MEDS: MULTIVITAMINS, THERA 1 EACH TAB PO SCH (08:24)
--- NOTE | 2022-04-13 11:18 | P.PN ---
Subjective Progress Note Date: 04/13/22 Principal diagnosis: 67-year-old male seen in consultation because of chronic kidney disease secondary to myeloma, acute kidney injury secondary to sepsis. He came in because of infected left leg cellulitis with abscess status post I&D. He was confused yesterday but this morning is much better able to eat. No nausea vomiting diarrhea no fever chills. He is able to answer questions and cooperative examined this morning. While signs are stable blood pressure 124/53 heart rate 90 temp is slightly high 99.6 Re: Intake is not well documented nor the output. Creatinine stable 1.8, was 1.74 yesterday On examination He is awake alert follows . HEENT exam no JVP neck is supple no facial asymmetry Lungs clear to auscultation good air entry bilaterally Heart sounds unremarkable no murmur rub gallop Abdomen soft nontender Extreme exam was trace edema on the left where he had the cellulitis the right leg has no edema Neurologically as mentioned about awake alert and follows all commands but has difficulty verbalizing. Moves all his extreme it is Impression 1. Acute kidney injury secondary to sepsis improved creatinine is down to 1.74 and 1.8 2. Chronic kidney disease secondary to multiple myeloma and a baseline 1.5 3. Hypokalemia secondary to low intake 4. Multiple myeloma 4. Admitted with abscess and cellulitis of the left leg status post I and D 5. Anemia hemoglobin is 9.1, down a bit to 8.7. Commendations 1. KCl 20 mEq per hour for 4 doses. 2. Continue lactated Ringer's at 75 an hour 2. Will continue to monitor labs Objective - Vital Signs Vital signs: Vital Signs Temp 97.9 F 04/13/22 04:22 Pulse 68 04/13/22 04:22 Resp 16 04/13/22 04:22 BP 150/86 04/13/22 04:22 Pulse Ox 94 L 04/13/22 04:22 FiO2 Intake & Output 04/12/22 04/13/22 04/13/22 18:59 06:59 18:59 Intake Total 1100 Balance 1100 Weight 97.522 kg Intake: Intake, IV Titration 1100 Amount ACETAMINOPHEN IV (For NPO 200 ) 1,000 mg In Empty Bag 1 bag @ 400 mls/hr IVPB Q6H [facility] Rx#:[id number] Lactated Ringers 1,000 ml 900 @ 75 mls/hr IV .[id number] [facility] Rx#:[id number] Other: Voiding Method Diaper Diaper Diaper # Voids 4 # Bowel Movements 1 1 - Labs CBC & Chem 7: 04/13/22 06:16 04/13/22 06:16 Labs: Abnormal Lab Results - Last 24 Hours (Table) 04/12/22 04/13/22 04/13/22 Range/Units 13:57 06:16 06:16 WBC 2.3 L (3.8-10.6) k/uL RBC 2.80 L (4.30-5.90) m/uL Hgb 8.7 L (13.0-17.5) gm/dL Hct 27.3 L (39.0-53.0) % RDW 20.4 H (11.5-15.5) % Plt Count 94 L (150-450) k/uL Potassium (3.5-5.1) mmol/L Creatinine 1.81 H (0.66-1.25) mg/dL TSH 7.510 H (0.465-4.680) mIU/L Free T4 2.63 H (0.78-2.19) ng/dL 04/13/22 Range/Units 06:16 WBC (3.8-10.6) k/uL RBC (4.30-5.90) m/uL Hgb (13.0-17.5) gm/dL Hct (39.0-53.0) % RDW (11.5-15.5) % Plt Count (150-450) k/uL Potassium 3.0 L (3.5-5.1) mmol/L Creatinine 1.81 H (0.66-1.25) mg/dL TSH (0.465-4.680) mIU/L Free T4 (0.78-2.19) ng/dL
--- NOTE | 2022-04-13 15:03 | P.PN ---
Subjective Progress Note Date: 04/13/22 Principal diagnosis: LLE cellulitis Patient's mentation has significantly improved compared to the last few days. His right leg is still ''bouncing'' if he gets up to the edge of the bed. No fevers. No pain. Appetite is down, not eating much. Objective - Vital Signs Vital signs: Vital Signs Temp 98.7 F 04/13/22 13:00 Pulse 87 04/13/22 13:00 Resp 16 04/13/22 13:00 BP 155/98 04/13/22 13:00 Pulse Ox 98 04/13/22 13:00 FiO2 Intake & Output 04/12/22 04/13/22 04/13/22 18:59 06:59 18:59 Intake Total 1100 Balance 1100 Weight 97.522 kg Intake: Intake, IV Titration 1100 Amount ACETAMINOPHEN IV (For NPO 200 ) 1,000 mg In Empty Bag 1 bag @ 400 mls/hr IVPB Q6H [facility] Rx#:[id number] Lactated Ringers 1,000 ml 900 @ 75 mls/hr IV .[id number] [facility] Rx#:[id number] Other: Voiding Method Diaper Diaper Diaper # Voids 4 # Bowel Movements 1 1 - Labs CBC & Chem 7: 04/13/22 06:16 04/13/22 06:16 Labs: Abnormal Lab Results - Last 24 Hours (Table) 04/12/22 04/13/22 04/13/22 Range/Units 13:57 06:16 06:16 WBC 2.3 L (3.8-10.6) k/uL RBC 2.80 L (4.30-5.90) m/uL Hgb 8.7 L (13.0-17.5) gm/dL Hct 27.3 L (39.0-53.0) % RDW 20.4 H (11.5-15.5) % Plt Count 94 L (150-450) k/uL Potassium (3.5-5.1) mmol/L Creatinine 1.81 H (0.66-1.25) mg/dL TSH 7.510 H (0.465-4.680) mIU/L Free T4 2.63 H (0.78-2.19) ng/dL 04/13/22 Range/Units 06:16 WBC (3.8-10.6) k/uL RBC (4.30-5.90) m/uL Hgb (13.0-17.5) gm/dL Hct (39.0-53.0) % RDW (11.5-15.5) % Plt Count (150-450) k/uL Potassium 3.0 L (3.5-5.1) mmol/L Creatinine 1.81 H (0.66-1.25) mg/dL TSH (0.465-4.680) mIU/L Free T4 (0.78-2.19) ng/dL Assessment and Plan Plan: Left lower extremity cellulitis with abscess - s/p I and D 04/07 - vanco/cefepime discontinued and stared on cefazolin by ID - Midline ordered, plan is for 2 weeks of IV abx. - wound care per vascular - ID following - Await final cultures Multiple myeloma Pancytopenia - oncology recs - CBC stable, continue to monitor Acute toxic metabolic encephalopathy now improved. RLE jerking - Head CT negative - Ammonia level normal - stopped opitates and kept on IV acetaminophen - decrease gabapentin - Neurology following, getting MRI brain and EEG T 12 fracture, multiple vertebral fractures due to MM, lumbar spine neuroforaminal stenosis, intractable pain on chronic pain - medication changes as above. - Dr. Rubio plan at this time due to infection is LSO brace and pain control. D/W Dr. Miranda will need 2 weeks of IV ABX. - Dr. Hill no indication for repeat radiation. DUNCAN on CKD 3 due to ATN Hyponatremia, resolved - On IV fluids per nephro, cr improved, baseline around 1.5 Chronic: Prior pulmonary embolism on Dilantin Dyslipidemia Gait dysfunction Chronic low back pain Coronary artery disease General weakness PT OT DVT prophylaxis: eliquis Discussed with: patient, family, nursing, Dr. Kern Anticipated discharge: pending clinical course Anticipated discharge place: home A total of 30 minutes was spent on the care of this complex patient more than 50% of the time was spent in counseling and care coordination.
[2022-04-13] MEDS: LACTATED RINGERS 1,000 ML IV SCH (15:28)
[2022-04-13] MEDS: ACETAMINOPHEN TAB 325 MG TAB PO PRN (15:28)
[2022-04-13] MEDS: FAMOTIDINE 20 MG TAB PO PRN (17:51)
[2022-04-14] MEDS: LACTATED RINGERS 1,000 ML IV SCH ×2 (03:10→21:36)
[2022-04-14 06:37] LABS: Magnesium 1.6 mg/dL (1.6-2.3); Potassium 3.3 mmol/L (3.5-5.1)
[2022-04-14] MEDS: ACYCLOVIR 200 MG CAP PO SCH ×2 (08:22→20:17)
[2022-04-14] MEDS: APIXABAN 5 MG TAB PO SCH ×2 (08:22→20:17)
[2022-04-14] MEDS: MULTIVITAMINS, THERA 1 EACH TAB PO SCH (08:22)
[2022-04-14] MEDS: GABAPENTIN 100 MG CAP PO SCH ×3 (08:22→21:34)
--- NOTE | 2022-04-14 09:44 | P.PN ---
Subjective Patient is seen for follow-up for acute kidney injury secondary to sepsis and history of chronic kidney disease associated with myeloma Renal function has been stable with creatinine staying at about 1.8 mg/dL. Urine output not accurately charted next No significant complaints today Potassium 3.3, creatinine 1.8 Objective - Vital Signs Vital signs: Vital Signs Temp 97.6 F 04/14/22 05:00 Pulse 92 04/14/22 05:00 Resp 16 04/14/22 05:00 BP 135/81 04/14/22 05:00 Pulse Ox 97 04/14/22 05:00 FiO2 Intake & Output 04/13/22 04/14/22 04/14/22 18:59 06:59 18:59 Output Total 150 Balance -150 Output: Emesis 150 Other: Voiding Method Diaper Diaper # Voids 3 - Exam Awake, comfortable, not in any acute distress Examination of the heart S1 and S2 Examination lungs bilateral breath sounds are heard Abdomen is soft nontender Examination lower extremities shows left lower leg to be wrapped No edema noted in the right leg. - Labs CBC & Chem 7: 04/13/22 06:16 04/14/22 05:37 Labs: Abnormal Lab Results - Last 24 Hours (Table) 04/14/22 Range/Units 05:37 Potassium 3.3 L (3.5-5.1) mmol/L Creatinine 1.83 H (0.66-1.25) mg/dL Assessment and Plan Assessment: 1. Acute kidney injury secondary to sepsis serum creatinine currently staying at about 1.8 mg/dL. Patient is nonoliguric. UA was positive for 1+ blood and protein. Serologies were ordered which were all negative. Urine protein creatinine ratio was 3.2. 2. Chronic kidney disease stage IIIB with baseline creatinine 1.5. Etiology mostly underlying myeloma kidney 3. Multiple myeloma maintained on chemotherapy 4. Anemia of chronic disease and associated with multiple myeloma, multifa ctorial. 5. Thrombocytopenia associated with multiple myeloma/treatment 6. Left lower extremity cellulitis with possible abscess formation, maintained on antibiotics Plan: Continue IV fluids Continue antibiotics Replace potassium
[2022-04-14] MEDS ORDERED: POTASSIUM CHLORIDE ER 20 MEQ TAB.ER PO STA ×2 (09:45→10:04)
[2022-04-14] MEDS ORDERED: Magnesium Replacement Protocol 1 EACH MISC MISCELLANE PRN (09:55)
[2022-04-14] MEDS ORDERED: POTASSIUM CHLORIDE 10 MEQ in WATER FOR INJECTION 1 100ML.BAG IVPB STA (10:04)
--- NOTE | 2022-04-14 11:11 | MR ---
EXAMINATION TYPE: MR brain wo con DATE OF EXAM: 04/14/2022 COMPARISON: CT scan 04/11/2022 HISTORY: Altered mental status TECHNIQUE: T1-weighted sagittal, T2, FLAIR, and diffusion axial, and T2 coronal coronal views of the brain are submitted. FINDINGS: There is no evidence of acute ischemia. There is mild to moderate generalized degenerative change. No nspecific signal in the white matter is most typical of remote ischemia. There is no mass effect. Craniocervical junction maintained. Partially empty sella turcica noted. Orbits are symmetric. Sinuse s are clear. Changes of mild right mastoiditis.. IMPRESSION: 1. No acute ischemia. 2. Degenerative and remote ischemic change as discussed above. 3. Mild right mastoiditis.
[2022-04-14] MEDS: MAGNESIUM SULFATE-D5W PMX 1 GM in DEXTROSE/WATER 1 100ML.BAG IVPB SCH ×2 (12:04→15:16)
--- NOTE | 2022-04-14 14:51 | EEG ---
ELECTROENCEPHALOGRAM REPORT DATE OF SERVICE: 04/14/2022 PREAMBLE: 67-year-old male with altered mental status. Rule out seizure. EEG FINDINGS: A 21 channel digital EEG recorded with video component, utilizing 10/20 international system with referential and bipolar montages. Background consists of well developed, well regulated moderate voltage activity in mixed frequencies of 4-6 hertz theta intermixed with some theta activity seen in bihemispheric region. Background does not seem to be reactive to eye opening or closing. Photic stimulation was not performed. Different stages of sleep were not seen. No focal or generalized epileptiform activity was seen. CONCLUSIONS: Abnormal EEG due to background slowing of mild to moderate degree. This is suggestive of generalized cerebral dysfunction as can be seen with toxic metabolic encephalopathy or due to diffuse structural brain abnormality. Clinical correlation is recommended. No epileptiform activity was seen. MMODL / IJN: [id number] /
--- NOTE | 2022-04-14 15:59 | P.PN ---
Subjective Progress Note Date: 04/14/22 Principal diagnosis: LLE cellulitis 67-year-old male with multiple myeloma currently undergoing chemotherapy with Dr. Mensah, prior pulmonary embolism, cellulitis, coronary artery disease, and dyslipidemia who presented to the ER with complaints of left lower extremity erythema and pain. Patient had been recently seen at the hospital and discharged on 04/03 with oral Keflex. On arrival to the ER he was febrile to 100.8, CRP was elevated at 20.9. He was admitted for treatment of left lower extremity cellulitis in the setting of chemotherapy and outpatient failure. He was started on cefepime and vancomycin. Infectious disease was consulted. Patient undewent I adn D of left foot abscess on 04/07 with vascular surgery. Nephrology was conuslted due to DUNCAN on CKD 3. Ortho spine was consulted due to worsening back pain. He was Degenerative disc disease, lumbar spine neur oforaminal stenosis and multiple vertebral compression fractures with worst one at T12. [facility]ospine recommends bracing at this time. Plan is for 2 weeks of IV ABX Imaging: Chest x-ray-no acute process CT left lower leg: Diffuse subcutaneous edema entire leg, focal area of fluid on the dorsum of the midfoot over the second metatarsal that could be an abscess Ct thorasic and lumbar spine: known MM, diffuse osteopenia, acute T12 vertebral body fracture likelt due to MM Lumbar spine MRI: T12 pathologic fracture. 04/14 Patient's mentation has significantly improved compared to the last few days. Still having jerks in the right leg. No fevers. Still having pain in the back. Objective - Vital Signs Vital signs: Vital Signs Temp 97.6 F 04/14/22 12:00 Pulse 87 04/14/22 12:00 Resp 16 04/14/22 12:00 BP 145/97 04/14/22 12:00 Pulse Ox 98 04/14/22 12:00 FiO2 Intake & Output 04/13/22 04/14/22 04/14/22 18:59 06:59 18:59 Output Total 150 Balance -150 Output: Emesis 150 Other: Voiding Method Diaper Diaper Diaper Incontinent # Voids 3 - Exam General: nontoxic, no distress, appears at stated age Derm: warm, dry, dressing in place over left foot Head: atraumatic, normocephalic, symmetric Eyes: EOMI, no lid lag, anicteric sclera Mouth: no lip lesion, mucus membranes moist Cardiovascular: S1S2 reg, no murmur, positive posterior tibial pulse bilateral, Lungs: CTA bilateral, no rhonchi, no rales , no accessory muscle use Abdominal: soft, nontender to palpation, no guarding, no appreciable organomegaly Ext: no gross muscle atrophy, no edema, no contractures Neuro: CN II-XI grossly intact, no focal neuro deficits, jerking movements noted of bilateral upper extremities Psych: lethargic, oriented X 3 when awake, appropriate affect - Labs CBC & Chem 7: 04/13/22 06:16 04/14/22 05:37 Labs: Abnormal Lab Results - Last 24 Hours (Table) 04/14/22 Range/Units 05:37 Potassium 3.3 L (3.5-5.1) mmol/L Creatinine 1.83 H (0.66-1.25) mg/dL Microbiology - Last 24 Hours (Table) 04/07/22 14:52 Gram Stain - Final Leg - Left Wound Culture - Final Pseudomonas aeruginosa 04/07/22 14:51 Gram Stain - Final Foot - Left Wound Culture - Final Pseudomonas aeruginosa 04/07/22 14:52 Anaerobic Culture - Final Leg - Left 04/07/22 14:51 Anaerobic Culture - Final Foot - Left Assessment and Plan Plan: Left lower extremity cellulitis with abscess - s/p I and D 04/07 - vanco/cefepime discontinued and stared on cefazolin by ID - Midline ordered, plan is for 2 weeks of IV abx. - wound care per vascular - ID following - Growing pseudomonas from wound cx, abx changed to cefepime on 04/14 Multiple myeloma Pancytopenia - oncology recs - CBC stable, continue to monitor Acute toxic metabolic encephalopathy now improved. RLE jerking - Head CT negative - Ammonia level normal - stopped opitates and kept on IV acetaminophen - decrease gabapentin - Neurology following, had brain MRI which was ok, EEG shwoing generalized slowing consistent with toxic metabolic encephalopathy T 12 fracture, multiple vertebral fractures due to MM, lumbar spine neuroforaminal stenosis, intractable pain on chronic pain - medication changes as above. - Dr. Rubio plan at this time due to infection is LSO brace and pain control. - Dr. Hill no indication for repeat radiation. DUNCAN on CKD 3 due to ATN Hyponatremia, resolved - On IV fluids per nephro, cr improved, baseline around 1.5 Chronic: Prior pulmonary embolism on Dilantin Dyslipidemia Gait dysfunction Chronic low back pain Coronary artery disease General weakness PT OT DVT prophylaxis: eliquis Discussed with: patient, family, nursing, Dr. Kern Anticipated discharge: pending clinical course Anticipated discharge place: rehab A total of 30 minutes was spent on the care of this complex patient more than 50% of the time was spent in counseling and care coordination.
[2022-04-14] MEDS ORDERED: CEFEPIME 2 GM in SODIUM CHLORIDE 0.9% 100 ML IVPB SCH (16:00)
[2022-04-14] MEDS: CEFEPIME 2 GM in SODIUM CHLORIDE 0.9% 100 ML IVPB SCH (16:28)
--- NOTE | 2022-04-14 16:57 | P.PN ---
Subjective Progress Note Date: 04/14/22 Principal diagnosis: abscess drainage. Multiple myeloma on treatment. In follow-up today patient going for MRI head and EEG. His reports some improvement in mentation over the last 2 days. Objective - Vital Signs Vital signs: Vital Signs Temp 97.6 F 04/14/22 12:00 Pulse 87 04/14/22 12:00 Resp 16 04/14/22 12:00 BP 145/97 04/14/22 12:00 Pulse Ox 98 04/14/22 12:00 FiO2 Intake & Output 04/13/22 04/14/22 04/14/22 18:59 06:59 18:59 Output Total 150 Balance -150 Output: Emesis 150 Other: Voiding Method Diaper Diaper Diaper Incontinent # Voids 3 - Constitutional General appearance: Present: average body habitus, cooperative, no acute distress - EENT Eyes: Present: anicteric sclerae, EOMI ENT: Present: hearing grossly normal - Musculoskeletal Musculoskeletal: Present: generalized weakness - Labs CBC & Chem 7: 04/13/22 06:16 04/14/22 05:37 Labs: Abnormal Lab Results - Last 24 Hours (Table) 04/14/22 Range/Units 05:37 Potassium 3.3 L (3.5-5.1) mmol/L Creatinine 1.83 H (0.66-1.25) mg/dL Microbiology - Last 24 Hours (Table) 04/07/22 14:52 Gram Stain - Final Leg - Left Wound Culture - Final Pseudomonas aeruginosa 04/07/22 14:51 Gram Stain - Final Foot - Left Wound Culture - Final Pseudomonas aeruginosa 04/07/22 14:52 Anaerobic Culture - Final Leg - Left 04/07/22 14:51 Anaerobic Culture - Final Foot - Left Assessment and Plan (1) Cellulitis Current Visit: Yes Status: Acute Priority: High Code(s): L03.90 - CELLULITIS, UNSPECIFIED SNOMED Code(s): 652555586 (2) Multiple myeloma Current Visit: No Status: Chronic Priority: Medium Code(s): C90.00 - MULTIPLE MYELOMA NOT HAVING ACHIEVED REMISSION SNOMED Code(s): 024897522 Plan: Patient undergoing care of LLE abscess. He is on antibiotics. Defer management of the same. Hypogammaglobulinemia. IVIG given. For back pain, per Rad Onc, Radiation not felt to be modality that can be utilized for the patient's low back pain at this time since the area has been treated before and this last time there was no significant pain relief. Appreciate Ortho Spine eval of pt, TSLO brace recommended. Cont pt pain meds as he tolerates. Hold Myeloma treatment with acute infection. Kyprolis infusion, oral pomalyst and Dex. Will resume treatment once current condition managed
[2022-04-14] MEDS: FAMOTIDINE 20 MG TAB PO PRN (21:34)
[2022-04-15] MEDS: CEFEPIME 2 GM in SODIUM CHLORIDE 0.9% 100 ML IVPB SCH ×2 (04:17→15:41)
--- NOTE | 2022-04-15 07:18 | P.PN ---
Subjective Progress Note Date: 04/13/22 Principal diagnosis: Left foot abscess and cellulitis Patient is a 67-year-old male presenting to the hospital with a fever and chills and left foot and leg pain swelling and redness has been diagnosed with a left foot abscess and cellulitis. Patient is status post surgical drainage of the abscess completed on 04/07/2022 On today's evaluation that is 04/13/2022, the patient continues to be afebrile, the patient pain to the left foot or left leg is currently controlled, patient denies chest pain or shortness of breath or cough no abdominal pain or diarrhea Objective - Vital Signs Vital signs: Vital Signs Temp 98.7 F 04/13/22 13:00 Pulse 87 04/13/22 13:00 Resp 16 04/13/22 13:00 BP 155/98 04/13/22 13:00 Pulse Ox 98 04/13/22 13:00 FiO2 Intake & Output 04/12/22 04/13/22 04/13/22 18:59 06:59 18:59 Intake Total 1100 Balance 1100 Weight 97.522 kg Intake: Intake, IV Titration 1100 Amount ACETAMINOPHEN IV (For NPO 200 ) 1,000 mg In Empty Bag 1 bag @ 400 mls/hr IVPB Q6H NNAMDI Rx#:[id number] Lactated Ringers 1,000 ml 900 @ 75 mls/hr IV .[id number] NNAMDI Rx#:[id number] Other: Voiding Method Diaper Diaper Diaper # Voids 4 # Bowel Movements 1 1 - Exam GENERAL DESCRIPTION: An elderly male lying in bed in no distress RESPIRATORY SYSTEM: Unlabored breathing , decreased breath sounds at bases HEART: S1 S2 regular rate and rhythm , ABDOMEN: Soft , no tenderness EXTREMITIES: Left leg and foot is currently No drainage on the dressing - Labs CBC & Chem 7: 04/13/22 06:16 04/14/22 05:37 Labs: Abnormal Lab Results - Last 24 Hours (Table) 04/12/22 04/13/22 04/13/22 Range/Units 13:57 06:16 06:16 WBC 2.3 L (3.8-10.6) k/uL RBC 2.80 L (4.30-5.90) m/uL Hgb 8.7 L (13.0-17.5) gm/dL Hct 27.3 L (39.0-53.0) % RDW 20.4 H (11.5-15.5) % Plt Count 94 L (150-450) k/uL Potassium (3.5-5.1) mmol/L Creatinine 1.81 H (0.66-1.25) mg/dL TSH 7.510 H (0.465-4.680) mIU/L Free T4 2.63 H (0.78-2.19) ng/dL 04/13/22 Range/Units 06:16 WBC (3.8-10.6) k/uL RBC (4.30-5.90) m/uL Hgb (13.0-17.5) gm/dL Hct (39.0-53.0) % RDW (11.5-15.5) % Plt Count (150-450) k/uL Potassium 3.0 L (3.5-5.1) mmol/L Creatinine 1.81 H (0.66-1.25) mg/dL TSH (0.465-4.680) mIU/L Free T4 (0.78-2.19) ng/dL Assessment and Plan (1) Cellulitis Current Visit: Yes Status: Acute Priority: High Code(s): L03.90 - CELLULITIS, UNSPECIFIED SNOMED Code(s): 543494538 Plan: 1patient presented to hospital with fever weakness increasing pain and swelling to the left foot in this patient recently treated for cellulitis CT at that time did not show any abscess and there is a question of a necrotizing infection however the patient was evaluated by orthopedic and recommended no surgical intervention patient now clinically has evidence of left foot abscess could be responsible for his recurrent symptoms. 2 CT of the left foot did shows evidence of abscess and the patient is status p ost drainage of the abscess on 04/07/2022 however culture are so far negative for any resistant pathogen 3patient is currently being treated with cefazolin 2 g every 8 hours and local wound care to the leg and foot continue with iodoform packing Time with Patient: Less than 30
--- NOTE | 2022-04-15 07:20 | P.PN ---
Subjective Progress Note Date: 04/14/22 Principal diagnosis: Left foot abscess and cellulitis Patient is a 67-year-old male presenting to the hospital with a fever and chills and left foot and leg pain swelling and redness has been diagnosed with a left foot abscess and cellulitis. Patient is status post surgical drainage of the abscess completed on 04/07/2022 On today's evaluation that is 04/14/2022, the patient remains to be afebrile, the patient is more awake and alert today, the patient pain to the left foot or left leg is currently controlled, patient denies chest pain or shortness of breath or cough no abdominal pain or diarrhea Objective - Vital Signs Vital signs: Vital Signs Temp 97.6 F 04/14/22 05:00 Pulse 92 04/14/22 05:00 Resp 16 04/14/22 05:00 BP 135/81 04/14/22 05:00 Pulse Ox 97 04/14/22 05:00 FiO2 Intake & Output 04/13/22 04/14/22 04/14/22 18:59 06:59 18:59 Output Total 150 Balance -150 Output: Emesis 150 Other: Voiding Method Diaper Diaper Diaper Incontinent # Voids 3 - Exam GENERAL DESCRIPTION: An elderly male lying in bed in no distress RESPIRATORY SYSTEM: Unlabored breathing , decreased breath sounds at bases HEART: S1 S2 regular rate and rhythm , ABDOMEN: Soft , no tenderness EXTREMITIES: Left leg and foot is currently No drainage on the dressing - Labs CBC & Chem 7: 04/13/22 06:16 04/14/22 05:37 Labs: Abnormal Lab Results - Last 24 Hours (Table) 04/14/22 Range/Units 05:37 Potassium 3.3 L (3.5-5.1) mmol/L Creatinine 1.83 H (0.66-1.25) mg/dL Microbiology - Last 24 Hours (Table) 04/07/22 14:52 Gram Stain - Final Leg - Left Wound Culture - Final Pseudomonas aeruginosa 04/07/22 14:51 Gram Stain - Final Foot - Left Wound Culture - Final Pseudomonas aeruginosa 04/07/22 14:52 Anaerobic Culture - Final Leg - Left 04/07/22 14:51 Anaerobic Culture - Final Foot - Left Assessment and Plan (1) Cellulitis Current Visit: Yes Status: Acute Priority: High Code(s): L03.90 - CELLULITIS, UNSPECIFIED SNOMED Code(s): 753835043 Plan: 1patient presented to hospital with fever weakness increasing pain and swelling to the left foot in this patient recently treated for cellulitis CT at that time did not show any abscess and there is a question of a necrotizing infection however the patient was evaluated by orthopedic and recommended no surgical inte rvention patient now clinically has evidence of left foot abscess could be responsible for his recurrent symptoms. 2 CT of the left foot did shows evidence of abscess and the patient is status post drainage of the abscess on 04/07/2022 and the cultures were finalized with Pseudomonas after 7 days and reported this morning on 04/14/2022 3we will discontinue cefazolin and start the patient cefepime 2 g every 8 hours local wound care with the iodoform packing of the wound Time with Patient: Less than 30
[2022-04-15] MEDS: APIXABAN 5 MG TAB PO SCH ×2 (09:13→20:15)
[2022-04-15] MEDS: MULTIVITAMINS, THERA 1 EACH TAB PO SCH (09:13)
[2022-04-15] MEDS: ACYCLOVIR 200 MG CAP PO SCH ×2 (09:13→20:15)
[2022-04-15] MEDS: GABAPENTIN 100 MG CAP PO SCH (09:13)
--- NOTE | 2022-04-15 10:52 | P.PN ---
Subjective Progress Note Date: 04/14/22 Patient was seen for a follow-up. Patient initially seen by Dr. Harsha Kern. Please refer to his note for details. Patient is a 67-year-old male with altered mental status. Patient has history of multiple myeloma. He had recent left lower extremity cellulitis. Patient's one of the relative was present. Patient is doing better. No new concerns. Objective - Vital Signs Vital signs: Vital Signs Temp 99.0 F 04/14/22 20:21 Pulse 92 04/14/22 20:21 Resp 20 04/14/22 20:21 BP 147/86 04/14/22 20:21 Pulse Ox 99 04/14/22 20:21 FiO2 Intake & Output 04/14/22 04/14/22 04/15/22 06:59 18:59 06:59 Other: Voiding Method Diaper Diaper Incontinent # Voids 3 - Exam On examination patient is alert and awake, appears encephalopathic. Speech and language functions are normal. He is somewhat slow mentation. Patient knows it is March and the year is 2021. He could not tell what city he is in, although he knows that he lives in [place] in [place]. On cranial nerve examination, pupils are equal, round and reacting, visual acevedo are full on confrontation. Extraocular muscles are intact. Face is symmetric and tongue protrudes the midline. Muscle strength is normal in the upper limbs. There is no pronator drift. Patient does have significant myoclonic jerking of his upper extremities consistent with encephalopathy. - Labs CBC & Chem 7: 04/13/22 06:16 04/14/22 05:37 Labs: Abnormal Lab Results - Last 24 Hours (Table) 04/14/22 Range/Units 05:37 Potassium 3.3 L (3.5-5.1) mmol/L Creatinine 1.83 H (0.66-1.25) mg/dL Microbiology - Last 24 Hours (Table) 04/07/22 14:52 Gram Stain - Final Leg - Left Wound Culture - Final Pseudomonas aeruginosa 04/07/22 14:51 Gram Stain - Final Foot - Left Wound Culture - Final Pseudomonas aeruginosa 04/07/22 14:52 Anaerobic Culture - Final Leg - Left 04/07/22 14:51 Anaerobic Culture - Final Foot - Left Assessment and Plan Assessment: * Altered mental status, likely due to metabolic encephalopathy. Patient's slow mentation, myoclonic jerks of outstretched hands are consistent with encephalopathy. * Cellulitis * Possible medication effect * Multiple myeloma undergoing chemotherapy and has pancytopenia. * Acute on chronic renal insufficiency, improved. * T12 fracture with multiple vertebral fracture due to multiple myeloma. * Lumbar spondylosis with multiple neural foraminal stenosis. * History of pulmonary embolism on Eliquis * History of coronary artery disease * Dyslipidemia Plan: * EEG was performed, which was abnormal due to background slowing of mild to moderate degree, consistent with encephalopathy. No epileptiform activity was seen. * MRI of the brain revealed no acute ischemia. Degenerative and remote ischemic change. Mild right mastoiditis. I personally reviewed MRI of the brain and agree with the findings. * Patient currently on gabapentin 200 mg 3 times a day as recommended by Dr. Kern. * If possible try to avoid narcoits, opiates or sedation which can affect patient mentation/neurological examination. * Will defer thryorid management to primary team. * ID is on board * Orthopedic team is on board * We'll defer the rest of the medical management to primary team * Neurologically, no other workup indicated.
[2022-04-15 11:16] LABS: Magnesium 2.3 mg/dL (1.5-2.4); Potassium 3.6 mmol/L (3.5-5.5)
--- NOTE | 2022-04-15 11:52 | P.PN ---
Subjective Patient is seen for follow-up for acute kidney injury secondary to sepsis and history of chronic kidney disease associated with myeloma Renal function has been stable with creatinine staying at about 1.8 mg/dL. Urine output not accurately charted next No significant complaints today Trying to walk with physical therapy. Mentation is back to baseline. Objective - Vital Signs Vital signs: Vital Signs Temp 98.0 F 04/15/22 04:59 Pulse 85 04/15/22 04:59 Resp 18 04/15/22 04:59 BP 110/71 04/15/22 04:59 Pulse Ox 95 04/15/22 04:59 FiO2 Intake & Output 04/14/22 04/15/22 04/15/22 18:59 06:59 18:59 Intake Total 440 Balance 440 Intake: Oral 440 Other: Voiding Method Diaper Diaper Incontinent Incontinent # Voids 3 - Exam Awake, comfortable, not in any acute distress Examination of the heart S1 and S2 Examination lungs bilateral breath sounds are heard Abdomen is soft nontender Examination lower extremities shows left lower leg to be wrapped No edema noted in the right leg. - Labs CBC & Chem 7: 04/13/22 06:16 04/15/22 07:01 Labs: Microbiology - Last 24 Hours (Table) 04/07/22 14:52 Gram Stain - Final Leg - Left Wound Culture - Final Pseudomonas aeruginosa 04/07/22 14:51 Gram Stain - Final Foot - Left Wound Culture - Final Pseudomonas aeruginosa 04/07/22 14:52 Anaerobic Culture - Final Leg - Left 04/07/22 14:51 Anaerobic Culture - Final Foot - Left Assessment and Plan Assessment: 1. Acute kidney injury secondary to sepsis serum creatinine currently staying at about 1.8 mg/dL. Patient is nonoliguric. UA was positive for 1+ blood and protein. Serologies were ordered which were all negative. Urine protein creatinine ratio was 3.2. 2. Chronic kidney disease stage IIIB with baseline creatinine 1.5. Etiology mostly underlying myeloma kidney 3. Multiple myeloma maintained on chemotherapy 4. Anemia of chronic disease and associated with multiple myeloma, multifactorial. 5. Thrombocytopenia associated with multiple myeloma/treatment 6. Left lower extremity cellulitis with possible abscess formation, maintained on antibiotics Plan: Continue IV fluids Continue antibiotics Replace potassium Check bladder scan and rule out urine retention
--- NOTE | 2022-04-15 15:24 | P.PN ---
Subjective Progress Note Date: 04/15/22 Principal diagnosis: abscess drainage. Multiple myeloma on treatment. In follow-up today patient is difficult to arouse, his reports that he participated with physical therapy earlier today but, this afternoon he is been sleeping heavily, snoring, barely able to keep his eyes open. Objective - Vital Signs Vital signs: Vital Signs Temp 98.3 F 04/15/22 11:44 Pulse 98 04/15/22 11:44 Resp 14 04/15/22 11:44 BP 118/86 04/15/22 11:44 Pulse Ox 96 04/15/22 11:44 FiO2 Intake & Output 04/14/22 04/15/22 04/15/22 18:59 06:59 18:59 Intake Total 440 Balance 440 Intake: Oral 440 Other: Voiding Method Diaper Diaper Diaper Incontinent Incontinent Incontinent # Voids 3 - Constitutional General appearance: Present: average body habitus, no acute distress - EENT Eyes: Present: anicteric sclerae - Respiratory Respiratory: bilateral: diminished, rales - Cardiovascular Rhythm: regular Heart sounds: normal: S1, S2 Abnormal Heart Sounds: Absent: systolic murmur, diastolic murmur, rub, S3 Gallop, S4 Gallop, click, other - Peripheral edema leg Peripheral Edema: bilateral: None - Gastrointestinal General gastrointestinal: Present: normal bowel sounds, soft - Musculoskeletal Musculoskeletal: Present: generalized weakness - Psychiatric Psychiatric: Absent: A&O x's 3, appropriate affect, intact judgment & insight - Labs CBC & Chem 7: 04/13/22 06:16 04/15/22 07:01 Labs: Microbiology - Last 24 Hours (Table) 04/07/22 14:52 Gram Stain - Final Leg - Left Wound Culture - Final Pseudomonas aeruginosa 04/07/22 14:51 Gram Stain - Final Foot - Left Wound Culture - Final Pseudomonas aeruginosa 04/07/22 14:52 Anaerobic Culture - Final Leg - Left 04/07/22 14:51 Anaerobic Culture - Final Foot - Left - Imaging and Cardiology MRI - head: report reviewed EEG-Neurology report reviewed Assessment and Plan (1) Cellulitis Current Visit: Yes Status: Acute Priority: High Code(s): L03.90 - CELLULITIS, UNSPECIFIED SNOMED Code(s): 202171816 (2) Multiple myeloma Current Visit: No Status: Chronic Priority: Medium Code(s): C90.00 - MULTIPLE MYELOMA NOT HAVING ACHIEVED REMISSION SNOMED Code(s): 732520040 Plan: Patient undergoing care of LLE abscess/infection. He is on antibiotics. Defer management of the same. Hypogammaglobulinemia. IVIG given. For back pain, per Rad Onc, Radiation not felt to be modality that can be utilized for the patient's low back pain at this time since the area has been treated before and this last time there was no significant pain relief. Appreciate Ortho Spine eval of pt, TSLO brace recommended. Cont pt pain meds as he tolerates. Hold Myeloma treatment with acute infection. Kyprolis infusion, oral pomalyst and Dex. Will resume treatment once current condition managed. Neurology reports of metabolic encephalopathy, multifactorial underlying causes may be infection, medications, antibiotics, additional stress (3 recent hospit alizations). Patient's neuro condition declined, then seemed to improve but has now declined again. Causes unclear at this time. Patient's medication list has been minimized by internal medicine. Order a chest x-ray for the morning. Spoke with nursing, if any signs or symptoms of infection-fever, tachycardia, hypotension, riders-have asked for patino cultures to be drawn immediately. Encouraged no visitors to allow the patient time to rest. We will reassess in the a.m. Further recommendations/testing to follow.
[2022-04-15] MEDS: LACTATED RINGERS 1,000 ML IV SCH (15:39)
--- NOTE | 2022-04-15 15:51 | P.PN ---
Subjective Progress Note Date: 04/15/22 Principal diagnosis: Lower extremity cellulitis and toxo metabolic encephalopathy Patient this morning was very somnolent. He was difficult to arouse. He did open his eyes with sternal rub. is at bedside. She states that he is likely tired because he worked with physical therapy this morning. She states that they made him stand up and sit in bed 5 times. still still concerned that his mental status is not back to baseline. I discontinue patient's gabapentin Objective - Vital Signs Vital signs: Vital Signs Temp 98.3 F 04/15/22 11:44 Pulse 98 04/15/22 11:44 Resp 14 04/15/22 11:44 BP 118/86 04/15/22 11:44 Pulse Ox 96 04/15/22 11:44 FiO2 Intake & Output 04/14/22 04/15/22 04/15/22 18:59 06:59 18:59 Intake Total 440 Balance 440 Intake: Oral 440 Other: Voiding Method Diaper Diaper Diaper Incontinent Incontinent Incontinent # Voids 3 - Exam General examination -patient difficult to arouse. 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 - wound care per vascular - ID following - Growing pseudomonas from wound cx, abx changed to cefepime on 04/14 Multiple myeloma Pancytopenia - oncology recs - CBC stable, continue to monitor Acute toxic metabolic encephalopathy now improved. RLE jerking - Head CT negative - Ammonia level normal - stopped opitates and gabapentin and resume acetaminophen - Neurology following, had brain MRI which was ok, EEG shwoing generalized slowing consistent with toxic metabolic encephalopathy T 12 fracture, multiple vertebral fractures due to MM, lumbar spine neuroforaminal stenosis, intractable pain on chronic pain - medication changes as above. - Dr. Rubio plan at this time due to infection is LSO brace and pain control. - Dr. Hill no indication for repeat radiation. DUNCAN on CKD 3 due to ATN -Patient currently is stable around 1.8 -Nephrology following Hyponatremia, resolved - On IV fluids per nephro, cr improved, baseline around 1.8 Chronic: Prior pulmonary embolism on Dilantin Dyslipidemia Gait dysfunction Chronic low back pain Coronary artery disease General weakness PT OT -> will likely need rehab DVT prophylaxis: [place] Discussed with: patient, family, nursing, Dr. Kern Anticipated discharge: Patient medically stable for discharge tomorrow if he is more awake and alert. Awaiting placement Anticipated discharge place: rehab
[2022-04-15] MEDS: FAMOTIDINE 20 MG TAB PO PRN (20:15)
[2022-04-15 21:31] LABS: ABG Base Excess 0.9 mmol/L; ABG HCO3 24 mmol/L (21-25); ABG PCO2 33 mmHg (35-45); ABG PH 7.48 (7.35-7.45); ABG PO2 81 mmHg (83-108); ABG TCO2 25 mmol/L (19-24); Allen Test Performed? Yes
[2022-04-16] MEDS: LACTATED RINGERS 1,000 ML IV SCH ×2 (04:31→11:36)
[2022-04-16] MEDS: CEFEPIME 2 GM in SODIUM CHLORIDE 0.9% 100 ML IVPB SCH ×2 (04:32→16:59)
[2022-04-16] MEDS: ACYCLOVIR 200 MG CAP PO SCH ×2 (07:47→20:26)
[2022-04-16] MEDS: MULTIVITAMINS, THERA 1 EACH TAB PO SCH (07:47)
[2022-04-16] MEDS: APIXABAN 5 MG TAB PO SCH ×2 (07:47→20:26)
[2022-04-16] MEDS ORDERED: GABAPENTIN 100 MG CAP PO SCH (09:00)
[2022-04-16 09:15] LABS: African American GFR (CKD) 41.1 (60.0-200.0); Anion Gap 10.7 mmol/L (10.00-18.00); BUN/Creat Ratio 5.26 Ratio (12.00-20.00); Calcium 8.5 mg/dL (8.7-10.3); Carbon Dioxide 21.3 mmol/L (20.0-27.5); Magnesium 1.8 mg/dL (1.5-2.4); Non-African American GFR(CKD) 35.4 (60.0-200.0); Potassium 3.3 mmol/L (3.5-5.5)
--- NOTE | 2022-04-16 10:08 | XR ---
EXAMINATION TYPE: XR chest 2V DATE OF EXAM: 04/16/2022 COMPARISON: 04/05/2022 TECHNIQUE: PA and lateral views submitted. HISTORY: Altered mental status FINDINGS: Limited inspiration with bibasilar subsegmental consolidation. No overt failure or pneumothorax. Hear t size normal. Severe compression deformity thoracolumbar junction appears stable. Suggestion of prev ious rib deformity on the right. IMPRESSION: 1. Basilar atelectasis favored over pneumonia. 2. Complete compression fracture T12 indeterminate age..
[2022-04-16 11:05] LABS: Basophils # (A) 0.01 X 10*3/uL (0.00-0.10); Basophils % (A) 0.4 %; Eosinophils # (A) 0.07 X 10*3/uL (0.04-0.35); HCT 25.6 % (39.6-50.0); HGB 7.8 g/dL (13.0-17.0); Immature Grans, Automated 0.8 %; Lymphocytes # (A) 0.21 X 10*3/uL (0.90-5.00); Lymphocytes % (A) 8.9 %; MCH 30.4 pg (27.0-32.0); MCHC 30.5 g/dL (32.0-37.0); MCV 99.6 fL (80.0-97.0); Monocytes # (A) 0.67 X 10*3/uL (0.20-1.00); Monocytes % (A) 28.4 %; NRBC Per 100 WBC 0.8 /100 WBCS (0.0-0.0); Neutrophils # (A) 1.38 X 10*3/uL (1.80-7.70); Neutrophils % (A) 58.5 %; Platelet Count 72 X 10*3/uL (140-440); RBC 2.57 X 10*6/uL (4.40-5.60); RDW 22.9 % (11.5-14.5); WBC 2.36 X 10*3/uL (4.50-10.00)
[2022-04-16 11:22] LABS: Immature Platelet Fraction 14.3 % (1.1-6.1)
[2022-04-16] MEDS ORDERED: Potassium Replacement Protocol 1 EACH MISC MISCELLANE PRN (11:56)
--- NOTE | 2022-04-16 12:07 | P.PN ---
Subjective Progress Note Date: 04/15/22 04/15/2022: Patient was seen for a follow-up. Patient's was present today. She believes that he is very tired, slept a lot. He has 8 little breakfast. Now more awake. PT has worked with him. They asked him to do stand ups 5 times which he did. 04/14/2022: Patient was seen for a follow-up. Patient initially seen by Dr. Harsha Kern. Please refer to his note for details. Patient is a 67-year-old male with altered mental status. Patient has history of multiple myeloma. He had recent left lower extremity cellulitis. Patient's one of the relative was present. Patient is doing better. No new concerns. Objective - Vital Signs Vital signs: Vital Signs Temp 99.4 F 04/16/22 04:57 Pulse 77 04/16/22 08:00 Resp 16 04/16/22 08:00 BP 143/85 04/16/22 04:57 Pulse Ox 96 04/16/22 04:57 FiO2 Intake & Output 04/15/22 04/16/22 04/16/22 18:59 06:59 18:59 Intake Total 1000 Balance 1000 Intake: Intake, IV Titration 800 Amount Cefepime 2 gm In Sodium 200 Chloride 0.9% 100 ml @ 25 mls/hr IVPB Q12H [facility] Rx# :[id number] Lactated Ringers 1,000 ml 600 @ 75 mls/hr IV .[id number] [facility] Rx#:[id number] Oral 200 Other: Voiding Method Diaper Diaper Diaper Incontinent Incontinent Incontinent # Voids 2 1 # Bowel Movements 1 - Exam On examination patient is alert and awake, appears encephalopathic. Speech and language functions are normal. He is somewhat slow mentation. Patient knows it is March and the year is 2021. He could not tell what city he is in, although he knows that he lives in [place] in [place]. On cranial nerve examination, pupils are equal, round and reacting, visual acevedo are full on confrontation. Extraocular muscles are intact. Face is symmetric and tongue protrudes the midline. Muscle strength is normal in the upper limbs. There is no pronator drift. Patient does have significant myoclonic jerking of his upper extremities consistent with encephalopathy. No changes compared to the examination yesterday. - Labs CBC & Chem 7: 04/16/22 05:26 04/16/22 05:26 Labs: Abnormal Lab Results - Last 24 Hours (Table) 04/15/22 04/16/22 04/16/22 Range/Units 21:25 05:26 05:26 WBC 2.36 L (4.50-10.00) X 10*3/uL RBC 2.57 L (4.40-5.60) X 10*6/uL Hgb 7.8 L (13.0-17.0) g/dL Hct 25.6 L (39.6-50.0) % MCV 99.6 H (80.0-97.0) fL MCHC 30.5 L (32.0-37.0) g/dL RDW 22.9 H (11.5-14.5) % Plt Count 72 L (140-440) X 10*3/uL Plt Count Comment DECREASED A Absolute Nucleated RBC 0.02 H (0.00-0.00) X 10*3/uL Neutrophils # 1.38 L (1.80-7.70) X 10*3/uL Lymphocytes # 0.21 L (0.90-5.00) X 10*3/uL NRBC/100 WBC Diff 0.8 H (0.0-0.0) /100 WBCS Immature Plt Fraction 14.3 H (1.1-6.1) % ABG pH 7.48 H (7.35-7.45) ABG pCO2 33 L (35-45) mmHg ABG pO2 81 L (83-108) mmHg ABG Total CO2 25 H (19-24) mmol/L ABG O2 Saturation 98.0 H (94-97) % Potassium 3.3 L (3.5-5.5) mmol/L Creatinine 1.9 H (0.6-1.5) mg/dL Est GFR (CKD-EPI)AfAm 41.1 L (60.0-200.0) Est GFR (CKD-EPI)NonAf 35.4 L (60.0-200.0) BUN/Creatinine Ratio 5.26 L (12.00-20.00) Ratio Calcium 8.5 L (8.7-10.3) mg/dL Assessment and Plan Assessment: * Altered mental status, likely due to metabolic encephalopathy. Patient's slow mentation, myoclonic jerks of outstretched hands are consistent with encephalopathy. * Cellulitis * Possible medication effect * Multiple myeloma undergoing chemotherapy and has pancytopenia. * Acute on chronic renal insufficiency, improved. * T12 fracture with multiple vertebral fracture due to multiple myeloma. * Lumbar spondylosis with multiple neural foraminal stenosis. * History of pulmonary embolism on Eliquis * History of coronary artery disease * Dyslipidemia Plan: * Patient has been neurologically stable. He has metabolic encephalopathy. * EEG was performed, which was abnormal due to background slowing of mild to moderate degree, consistent with encephalopathy. No epileptiform activity was seen. * MRI of the brain revealed no acute ischemia. Degenerative and remote ischemic change. Mild right mastoiditis. I personally reviewed MRI of the brain and agree with the findings. * Patient currently on gabapentin 200 mg 3 times a day as recommended by Dr. Kern. * If possible try to avoid narcoits, opiates or sedation which can affect patient mentation/neurological examination. * Will defer thryorid management to primary team. * ID is on board * Orthopedic team is on board * We'll defer the rest of the medical management to primary team * Neurologically, no other workup indicated. Neurology will sign off. Please reconsult neurology if any concerns.
[2022-04-16] MEDS: POTASSIUM CHLORIDE ER 20 MEQ TAB.ER PO SCH ×2 (13:03→14:03)
--- NOTE | 2022-04-16 14:10 | P.PN ---
Subjective Progress Note Date: 04/16/22 Principal diagnosis: Lower extremity cellulitis and toxo metabolic encephalopathy Patient mental status was waxing and waning when I went to go see him. At one moment he is able to tell me his name and where he was and also following simple commands. And then a short period later he would not respond. at bedside was concerned. She states that similar event happen at [facility]. Objective - Vital Signs Vital signs: Vital Signs Temp 98.4 F 04/16/22 13:00 Pulse 89 04/16/22 13:00 Resp 13 04/16/22 13:00 BP 143/92 04/16/22 13:00 Pulse Ox 96 04/16/22 13:00 FiO2 Intake & Output 04/15/22 04/16/22 04/16/22 18:59 06:59 18:59 Intake Total 1000 Balance 1000 Intake: Intake, IV Titration 800 Amount Cefepime 2 gm In Sodium 200 Chloride 0.9% 100 ml @ 25 mls/hr IVPB Q12H [facility] Rx# :[id number] Lactated Ringers 1,000 ml 600 @ 75 mls/hr IV .[id number] [facility] Rx#:[id number] Oral 200 Other: Voiding Method Diaper Diaper Diaper Incontinent Incontinent Incontinent # Voids 2 1 # Bowel Movements 1 - Exam General examination -patient somnolent but easily arousable. 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, at times patient is following simple commands Psych -lethargic and somnolent, waxing and waning - Labs CBC & Chem 7: 04/16/22 05:26 04/16/22 05:26 Labs: Abnormal Lab Results - Last 24 Hours (Table) 04/15/22 04/16/22 04/16/22 Range/Units 21:25 05:26 05:26 WBC 2.36 L (4.50-10.00) X 10*3/uL RBC 2.57 L (4.40-5.60) X 10*6/uL Hgb 7.8 L (13.0-17.0) g/dL Hct 25.6 L (39.6-50.0) % MCV 99.6 H (80.0-97.0) fL MCHC 30.5 L (32.0-37.0) g/dL RDW 22.9 H (11.5-14.5) % Plt Count 72 L (140-440) X 10*3/uL Plt Count Comment DECREASED A Absolute Nucleated RBC 0.02 H (0.00-0.00) X 10*3/uL Neutrophils # 1.38 L (1.80-7.70) X 10*3/uL Lymphocytes # 0.21 L (0.90-5.00) X 10*3/uL NRBC/100 WBC Diff 0.8 H (0.0-0.0) /100 WBCS Immature Plt Fraction 14.3 H (1.1-6.1) % ABG pH 7.48 H (7.35-7.45) ABG pCO2 33 L (35-45) mmHg ABG pO2 81 L (83-108) mmHg ABG Total CO2 25 H (19-24) mmol/L ABG O2 Saturation 98.0 H (94-97) % Potassium 3.3 L (3.5-5.5) mmol/L Creatinine 1.9 H (0.6-1.5) mg/dL Est GFR (CKD-EPI)AfAm 41.1 L (60.0-200.0) Est GFR (CKD-EPI)NonAf 35.4 L (60.0-200.0) BUN/Creatinine Ratio 5.26 L (12.00-20.00) Ratio Calcium 8.5 L (8.7-10.3) mg/dL Assessment and Plan Assessment: Left lower extremity cellulitis with abscess - s/p I and D 04/07 - vanco/cefepime discontinued and stared on cefazolin by ID - Midline ordered, plan is for 2 weeks of IV abx. - wound care per vascular - ID following - Growing pseudomonas from wound cx, abx changed to cefepime on 04/14 Multiple myeloma Pancytopenia - oncology recs - CBC stable, continue to monitor Acute toxic metabolic encephalopathy likely due to opioids and gabapentin - Head CT negative - Ammonia level normal - stopped opitates and gabapentin and resume acetaminophen - Neurology following, had brain MRI which was ok, EEG shwoing generalized slowing consistent with toxic metabolic encephalopathy Elevated TSH and free T4 -Likely due to acute illness. Will need repeat labs in 6 weeks T 12 fracture, multiple vertebral fractures due to MM, lumbar spine neuroforaminal stenosis, intractable pain on chronic pain - medication changes as above. - Dr. Rubio plan at this time due to infection is LSO brace and pain control. - Dr. Hill no indication for repeat radiation. DUNCAN on CKD 3 due to ATN -Patient currently is stable around 1.8 -Nephrology following Hyponatremia, resolved - On IV fluids per nephro, cr improved, baseline around 1.8 Chronic: Prior pulmonary embolism on Dilantin Dyslipidemia Gait dysfunction Chronic low back pain Coronary artery disease General weakness PT OT -> will likely need rehab DVT prophylaxis: greg Discussed with: patient, family, nursing, Dr. Kern Anticipated discharge: Patient medically stable for discharge tomorrow if he is more awake and alert. Awaiting placement Anticipated discharge place: rehab
--- NOTE | 2022-04-16 16:20 | P.PN ---
Subjective Progress Note Date: 04/16/22 Principal diagnosis: abscess drainage. Multiple myeloma on treatment. In follow-up today patient is awake, left eye not staying open, twitching at corners of mouth noted, he is non-verbal, when I asked him to raise his left hand he did. Objective - Vital Signs Vital signs: Vital Signs Temp 98.4 F 04/16/22 13:00 Pulse 89 04/16/22 13:00 Resp 13 04/16/22 13:00 BP 143/92 04/16/22 13:00 Pulse Ox 96 04/16/22 13:00 FiO2 Intake & Output 04/15/22 04/16/22 04/16/22 18:59 06:59 18:59 Intake Total 1000 Balance 1000 Intake: Intake, IV Titration 800 Amount Cefepime 2 gm In Sodium 200 Chloride 0.9% 100 ml @ 25 mls/hr IVPB Q12H [facility] Rx# :[id number] Lactated Ringers 1,000 ml 600 @ 75 mls/hr IV .[id number] [facility] Rx#:[id number] Oral 200 Other: Voiding Method Diaper Diaper Diaper Incontinent Incontinent Incontinent # Voids 2 1 # Bowel Movements 1 - Constitutional General appearance: Present: average body habitus, cooperative, no acute distress - EENT Eyes: Present: anicteric sclerae - Respiratory Respiratory: bilateral: CTA - Cardiovascular Rhythm: regular Heart sounds: normal: S1, S2 - Gastrointestinal General gastrointestinal: Present: normal bowel sounds, soft - Neurologic Neurologic Comment(s): facial twitching, left eye tightly closed, non-verbal Neurologic: Present: focal deficits - Psychiatric Psychiatric Comment(s): Non-verbal - Labs CBC & Chem 7: 04/16/22 05:26 04/16/22 05:26 Labs: Abnormal Lab Results - Last 24 Hours (Table) 04/15/22 04/16/22 04/16/22 Range/Units 21:25 05:26 05:26 WBC 2.36 L (4.50-10.00) X 10*3/uL RBC 2.57 L (4.40-5.60) X 10*6/uL Hgb 7.8 L (13.0-17.0) g/dL Hct 25.6 L (39.6-50.0) % MCV 99.6 H (80.0-97.0) fL MCHC 30.5 L (32.0-37.0) g/dL RDW 22.9 H (11.5-14.5) % Plt Count 72 L (140-440) X 10*3/uL Plt Count Comment DECREASED A Absolute Nucleated RBC 0.02 H (0.00-0.00) X 10*3/uL Neutrophils # 1.38 L (1.80-7.70) X 10*3/uL Lymphocytes # 0.21 L (0.90-5.00) X 10*3/uL NRBC/100 WBC Diff 0.8 H (0.0-0.0) /100 WBCS Immature Plt Fraction 14.3 H (1.1-6.1) % ABG pH 7.48 H (7.35-7.45) ABG pCO2 33 L (35-45) mmHg ABG pO2 81 L (83-108) mmHg ABG Total CO2 25 H (19-24) mmol/L ABG O2 Saturation 98.0 H (94-97) % Potassium 3.3 L (3.5-5.5) mmol/L Creatinine 1.9 H (0.6-1.5) mg/dL Est GFR (CKD-EPI)AfAm 41.1 L (60.0-200.0) Est GFR (CKD-EPI)NonAf 35.4 L (60.0-200.0) BUN/Creatinine Ratio 5.26 L (12.00-20.00) Ratio Calcium 8.5 L (8.7-10.3) mg/dL - Imaging and Cardiology Chest x-ray: report reviewed Assessment and Plan (1) Cellulitis Current Visit: Yes Status: Acute Priority: High Code(s): L03.90 - CELLULITIS, UNSPECIFIED SNOMED Code(s): 399533304 (2) Multiple myeloma Current Visit: No Status: Chronic Priority: Medium Code(s): C90.00 - MULTIPLE MYELOMA NOT HAVING ACHIEVED REMISSION SNOMED Code(s): 931127551 Plan: Patient undergoing care of LLE abscess/infection. He is on antibiotics. Defer management of the same. Hypogammaglobulinemia. IVIG given. Will recheck IgG level For back pain, per Rad Onc, Radiation not felt to be modality that can be utilized for the patient's low back pain at this time since the area has been treated before and this last time there was no significant pain relief. Appreciate Ortho Spine eval of pt, TSLO brace recommended. Cont pt pain meds as he tolerates. Hold Myeloma treatment with acute infection. Kyprolis infusion, oral pomalyst and Dex. If pt goes to rehab will hold treatment until discharged and seen by Oncologist for evaluation prior to resuming any treatment. Neurology reports of metabolic encephalopathy, multifactorial underlying causes may be infection, medications, antibiotics, additional stress (3 recent hospitalizations). He is more alert today, is non-verbal and twitching of the face is noted. Patient's medication list has been minimized by Internal Medicine. Chest x-ray report reviewed, atelectasis, from bed rest, lack of activity. IS ordered. Brief discussion with Neuro, no further work up at this time. Daily f/u Labs already ordered for AM Time with Patient: Greater than 30
--- NOTE | 2022-04-16 20:34 | PN ---
PROGRESS NOTE Patient is seen for followup for acute kidney injury. Renal function has been stable with serum creatinine staying at about 1.8 mg/dL. This morning patient is sitting up. Family is trying to feed him. No significant complaints. On examination today, blood pressure was 143/85, heart rate 85 per minute. Patient is afebrile. Examination of the heart S1, S2. Examination of the lungs, bilateral breath sounds are heard. Abdomen is soft, nontender. Examination of lower extremities shows the left lower extremity with an ulcer which seems to be deep on the medial aspect of the left leg. No significant edema noted in his right leg. TRANSPLANT RN exam shows patient does answer simple questions but does not communicate much. LAB: Show hemoglobin 7.8, sodium of 140, potassium 3.3, BUN 10.0, creatinine 1.9. ASSESSMENT: 1. Acute kidney injury, nonoliguric, currently stable. 2. Chronic kidney disease NKF stage 3B with baseline creatinine 1.5. 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 3. Multiple myeloma maintained on chemotherapy. 4. Left lower extremity cellulitis with possible abscess formation, maintained on antibiotics. 5. Anemia of chronic disease and associated with multiple myeloma. 6. Mental status changes seems to have improved. 7. Hypokalemia associated with decreased oral intake. This will be replaced. PLAN: Continue IV fluids. Continue to encourage increased oral intake. Repeat labs in a.m. MMODL / IJN: [id number] /
[2022-04-17] MEDS: LACTATED RINGERS 1,000 ML IV SCH ×3 (02:52→23:55)
[2022-04-17] MEDS: CEFEPIME 2 GM in SODIUM CHLORIDE 0.9% 100 ML IVPB SCH (04:14)
[2022-04-17] MEDS: ACYCLOVIR 200 MG CAP PO SCH ×3 (09:38→20:34)
[2022-04-17] MEDS: MULTIVITAMINS, THERA 1 EACH TAB PO SCH ×2 (09:38→14:22)
[2022-04-17] MEDS: APIXABAN 5 MG TAB PO SCH ×3 (09:38→20:34)
[2022-04-17 10:51] LABS: African American GFR (CKD) 41.1 (60.0-200.0); Anion Gap 9.4 mmol/L (10.00-18.00); BUN/Creat Ratio 5.26 Ratio (12.00-20.00); Calcium 9.1 mg/dL (8.7-10.3); Carbon Dioxide 24.6 mmol/L (20.0-27.5); Non-African American GFR(CKD) 35.4 (60.0-200.0); Potassium 3.3 mmol/L (3.5-5.5)
--- NOTE | 2022-04-17 13:13 | P.GSCN ---
History of Present Illness Consult date: 04/17/22 Reason for Consult: Leg abscess Requesting physician: Francois Miranda History of present illness: This is a pleasant 67-year-old male with a past medical history including multiple myeloma, history of pulmonary embolism, coronary artery disease, hyperlipidemia, peripheral neuropathy and chronic cellulitis of the left lower extremity. Patient states he's been treated for cellulitis for the last 2 weeks. He has been admitted to the hospital on IV antibiotics and then discharged. His most recent hospitalization was March 30 through April 03, 2022. During that hospitalization he had a CT of the left lower extremity that showed marked diffuse soft tissue abnormality consistent with cutaneous and deep fascial plane edema/inflammation findings are suspicious for necrotizing fasciitis. At that time orthopedics was consulted who reported low clinical suspicion for necrotizing fasciitis recommended continued antibiotics and no surgical intervention. During this admission patient underwent another CT of the left lower extremity without contrast reporting diffuse subcutaneous edema the entire lower leg. There is a focal area of fluid on the dorsum of the midfoot or the second metatarsal that could be an abscess. Vascular surgery was consulted for the above-mentioned. He underwent I&D with Dr. Ryder on 0 04/07/2022 of the left foot and lower leg abscess. Apparently the patient has developed another abscess on the posterior aspect of his left lower extremity and vascular surgery was re-consulted by infectious disease to evaluate and treat. His last wound culture came back as Pseudomonas aeruginosa. Patient remains on Zosyn. 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, gait dysfunction-uses walker, bilateral pedal/ankle edema, PE 08/2019, chronic low back pain, past vertebral fractures, minimal CAD, shingelles twice, past R heel wound, elevated lipids in the past, History of Any Multi-Drug Resistant Organisms: None Reported Past Surgical History: Heart Catheterization, Orthopedic Surgery Additional Past Surgical History / Comment(s): excision of uvular lesion(benign) 2009, colonoscopy, dave knee arthroscopy, rt rotator cuff sx, moles removed from back(benign), bone marrow aspiration/bx, stem cell transplant 2016, Past Anesthesia/Blood Transfusion Reactions: No Reported Reaction Past Psychological History: No Psychological Hx Reported Smoking Status: Never smoker Past Alcohol Use History: None Reported Past Drug Use History: None Reported - Past Family History Father Family Medical History: Renal Disease, Vascular Disorder Additional Family Medical History / Comment(s): aaa. Father is . Mother Family Medical History: No Reported History Additional Family Medical History / Comment(s): mom is healthy Medications and Allergies Home Medications Medication Instructions Recorded Confirmed Type Famotidine [Pepcid] 20 mg PO DAILY PRN 04/15/19 04/05/22 History Gabapentin [Neurontin] 300 mg PO TID 04/15/19 04/05/22 History dexAMETHasone 8 mg PO DIRECTED 04/15/19 04/05/22 History Acyclovir 400 mg PO BID 08/24/19 04/05/22 History Pomalyst 3mg 3 mg PO DIRECTED 08/24/19 04/05/22 History Aspirin 81 mg PO DAILY #30 chewable 08/26/19 04/05/22 Rx Apixaban [Eliquis] 5 mg PO BID 10/03/19 04/05/22 History Nitroglycerin Sl Tabs [Nitrostat] 0.4 mg SUBLINGUAL Q5M PRN 10/03/19 04/05/22 History Calcium Carbonate/Vitamin D3 1 cap PO DAILY 01/10/20 04/05/22 History [Calcium 600-Vit D3 20 Mcg (800 Iu)] Potassium Chloride ER [K-Dur 20] 20 meq PO DAILY 01/10/20 04/05/22 History Furosemide [Lasix] 20 mg PO DAILY PRN 05/31/21 04/05/22 History Acetaminophen Tab [Tylenol] 650 mg PO Q6HR PRN tab 06/03/21 04/05/22 Rx Multivitamins, Thera [Multivitamin 1 tab PO DAILY 12/16/21 04/05/22 History (formulary)] oxyCODONE HCL [oxyCODONE HCL (IR)] 10 - 20 mg PO Q4H PRN 03/25/22 04/05/22 History Cephalexin [Keflex] 500 mg PO Q6HR 1 Days #40 cap 04/03/22 04/05/22 Rx Terbinafine 1% Cream [LamISIL] 1 applic TOPICAL TID 90 Days #15 gm 04/03/22 04/05/22 Rx Allergies Allergy/AdvReac Type Severity Reaction Status Date / Time sulfamethoxazole Allergy Rash/Hives Verified 04/05/22 21:45 [From Bactrim] trimethoprim [From Bactrim] Allergy Rash/Hives Verified 04/05/22 21:45 Surgical - Exam Vital Signs Temp Pulse Resp BP Pulse Ox 100.8 F H 113 H 20 105/75 94 L 04/05/22 19:47 04/05/22 19:47 04/05/22 19:47 04/05/22 19:47 04/05/22 19:47 General appearance: The patient is alert, nonverbal, appears in no acute distress. HET: Head is normocephalic and atraumatic. Neck: Supple without lymphadenopathy. Trachea midline. Extremities: Bilateral lower extremities with edema. Left lower extremity I&D site to left foot and left medial lower extremity with iodoform packing. There is a abscess on the posterior aspect of his lower left leg. Neurological: Awake and alert. Results - Labs 04/16/22 05:26 04/17/22 06:58 Abnormal Lab Results - Last 24 Hours (Table) 04/17/22 Range/Units 06:58 Potassium 3.3 L (3.5-5.5) mmol/L Anion Gap 9.40 L (10.00-18.00) mmol/L Creatinine 1.9 H (0.6-1.5) mg/dL Est GFR (CKD-EPI)AfAm 41.1 L (60.0-200.0) Est GFR (CKD-EPI)NonAf 35.4 L (60.0-200.0) BUN/Creatinine Ratio 5.26 L (12.00-20.00) Ratio Diabetes panel 04/17/22 Range/Units 06:58 Sodium 142 (135-145) mmol/L Potassium 3.3 L (3.5-5.5) mmol/L Chloride 108 (96-109) mmol/L Carbon Dioxide 24.6 (20.0-27.5) mmol/L BUN 10.0 (9.0-27.0) mg/dL Creatinine 1.9 H (0.6-1.5) mg/dL Glucose 104 (70-110) mg/dL Calcium 9.1 (8.7-10.3) mg/dL Calcium panel 04/17/22 Range/Units 06:58 Calcium 9.1 (8.7-10.3) mg/dL Pituitary panel 04/17/22 Range/Units 06:58 Sodium 142 (135-145) mmol/L Potassium 3.3 L (3.5-5.5) mmol/L Chloride 108 (96-109) mmol/L Carbon Dioxide 24.6 (20.0-27.5) mmol/L BUN 10.0 (9.0-27.0) mg/dL Creatinine 1.9 H (0.6-1.5) mg/dL Glucose 104 (70-110) mg/dL Calcium 9.1 (8.7-10.3) mg/dL Adrenal panel 04/17/22 Range/Units 06:58 Sodium 142 (135-145) mmol/L Potassium 3.3 L (3.5-5.5) mmol/L Chloride 108 (96-109) mmol/L Carbon Dioxide 24.6 (20.0-27.5) mmol/L BUN 10.0 (9.0-27.0) mg/dL Creatinine 1.9 H (0.6-1.5) mg/dL Glucose 104 (70-110) mg/dL Calcium 9.1 (8.7-10.3) mg/dL Assessment and Plan Assessment: 1. Left lower extremity abscess 2. Left foot/leg abscess status post incision and drainage 3. Positive wound cultures for Pseudomonas aeruginosa 4. Cellulitis of the left lower extremity 5. Multiple myeloma 6. Altered mental status changes 5. History of pulmonary embolism on Eliquis 6. Peripheral neuropathy 7. History of coronary artery disease status post stent 8. History hypertension 9. History hyperlipidemia 10. Obesity Plan: 1. Continue IV antibiotics per recommendations from infectious disease 2. Plan for bedside incision and drainage with cultures, please obtain consent from patient's 3. Daily dressing changes with iodoform, 4 x 4 and Kerlix Thank you for this consultation. The impression and plan of care has been dictated as directed. Dr. Lee I performed a history and examination of this patient, discussed the same with the dictator. I agree with the dictator's note ,documented as a scribe. Any additional findings or plans will be noted.
[2022-04-17] MEDS: PIPERACILLIN-TAZOBACTAM 3.375 GM in SODIUM CHLORIDE 0.9% 100 ML IVPB SCH ×2 (13:14→20:50)
[2022-04-17] MEDS ORDERED: POTASSIUM CHLORIDE ER 20 MEQ TAB.ER PO STA (13:49)
--- NOTE | 2022-04-17 13:51 | P.PN ---
Subjective Patient is seen for follow-up for acute kidney injury secondary to sepsis and history of chronic kidney disease associated with myeloma Renal function has been stable with creatinine staying at about 1.8 mg/dL. Urine output not accurately charted. No urine retention No significant complaints today Mentation is decreased again. Patient is not eating much. Objective - Vital Signs Vital signs: Vital Signs Temp 98.4 F 04/17/22 12:02 Pulse 97 04/17/22 12:02 Resp 18 04/17/22 12:02 BP 158/97 04/17/22 12:02 Pulse Ox 98 04/17/22 12:02 FiO2 Intake & Output 04/16/22 04/17/22 04/17/22 18:59 06:59 18:59 Weight 97.522 kg Other: Voiding Method Diaper Diaper Incontinent Incontinent # Voids 3 2 1 # Bowel Movements 2 1 - Exam Sleeping but arousable comfortable, not in any acute distress Examination of the heart S1 and S2 Examination lungs bilateral breath sounds are heard Abdomen is soft nontender Examination lower extremities shows left lower leg to be wrapped No edema noted in the right leg. - Labs CBC & Chem 7: 04/16/22 05:26 04/17/22 06:58 Labs: Abnormal Lab Results - Last 24 Hours (Table) 04/17/22 Range/Units 06:58 Potassium 3.3 L (3.5-5.5) mmol/L Anion Gap 9.40 L (10.00-18.00) mmol/L Creatinine 1.9 H (0.6-1.5) mg/dL Est GFR (CKD-EPI)AfAm 41.1 L (60.0-200.0) Est GFR (CKD-EPI)NonAf 35.4 L (60.0-200.0) BUN/Creatinine Ratio 5.26 L (12.00-20.00) Ratio Assessment and Plan Assessment: 1. Acute kidney injury secondary to sepsis serum creatinine currently staying at about 1.8 mg/dL. Patient is nonoliguric. UA was positive for 1+ blood and protein. Serologies were ordered which were all negative. Urine protein creatinine ratio was 3.2. 2. Chronic kidney disease stage IIIB with baseline creatinine 1.5. Etiology mostly underlying myeloma kidney 3. Multiple myeloma maintained on chemotherapy 4. Anemia of chronic disease and associated with multiple myeloma, multifactorial. 5. Thrombocytopenia associated with multiple myeloma/treatment 6. Left lower extremity cellulitis with possible abscess formation, maintained on antibiotics 7. Hypokalemia, being replaced Plan: Continue IV fluids Continue antibiotics Replace potassium
--- NOTE | 2022-04-17 13:53 | P.PN ---
Subjective Progress Note Date: 04/17/22 Principal diagnosis: abscess drainage. Multiple myeloma on treatment. In follow-up today patient is agitated, he is not responding to commands today, he is nonverbal. Objective - Vital Signs Vital signs: Vital Signs Temp 98.8 F 04/17/22 04:52 Pulse 90 04/17/22 04:52 Resp 16 04/17/22 04:52 BP 153/87 04/17/22 04:52 Pulse Ox 96 04/17/22 04:52 FiO2 Intake & Output 04/16/22 04/17/22 04/17/22 18:59 06:59 18:59 Weight 97.522 kg Other: Voiding Method Diaper Diaper Incontinent Incontinent # Voids 3 2 1 # Bowel Movements 2 1 - Constitutional General appearance: Present: average body habitus, no acute distress - EENT EENT Comment(s): Patient holding left eye closed, some twitching is noted. Eyes: Present: anicteric sclerae - Respiratory Respiratory: bilateral: CTA - Cardiovascular Rhythm: regular Heart sounds: normal: S1, S2 Abnormal Heart Sounds: Absent: systolic murmur, diastolic murmur, rub, S3 [place] p, S4 Gallop, click, other - Peripheral edema leg Peripheral Edema: bilateral: None - Gastrointestinal General gastrointestinal: Present: normal bowel sounds, soft - Integumentary Integumentary Comment(s): Left lower extremity wounds, leg is currently wrapped Integumentary: Present: pale - Neurologic Neurologic: Present: focal deficits - Psychiatric Psychiatric: Absent: A&O x's 3, appropriate affect, intact judgment & insight - Labs CBC & Chem 7: 04/16/22 05:26 04/17/22 06:58 Labs: Abnormal Lab Results - Last 24 Hours (Table) 04/16/22 04/17/22 Range/Units 05:26 06:58 Immature Plt Fraction 14.3 H (1.1-6.1) % Potassium 3.3 L (3.5-5.5) mmol/L Anion Gap 9.40 L (10.00-18.00) mmol/L Creatinine 1.9 H (0.6-1.5) mg/dL Est GFR (CKD-EPI)AfAm 41.1 L (60.0-200.0) Est GFR (CKD-EPI)NonAf 35.4 L (60.0-200.0) BUN/Creatinine Ratio 5.26 L (12.00-20.00) Ratio Assessment and Plan (1) Cellulitis Current Visit: Yes Status: Acute Priority: High Code(s): L03.90 - CELLULITIS, UNSPECIFIED SNOMED Code(s): 011527382 (2) Multiple myeloma Current Visit: No Status: Chronic Priority: Medium Code(s): C90.00 - MULTIPLE MYELOMA NOT HAVING ACHIEVED REMISSION SNOMED Code(s): 193275769 Plan: Patient undergoing care of LLE abscess/infection. He is on antibiotics. Posterior lt calf lesion is going to be assessed for drainage. Defer management of the same. Hypogammaglobulinemia. IVIG given. Recheck IgG->700, adequate For back pain, per Rad Onc, Radiation not felt to be modality that can be utilized for the patient's low back pain at this time since the area has been treated before and this last time there was no significant pain relief. Appreciate Ortho Spine eval of pt, TSLO brace recommended. Cont pt pain meds as he tolerates. Hold Myeloma treatment with acute infection. Kyprolis infusion, oral pomalyst and Dex. If pt goes to rehab will hold treatment until discharged and seen by Oncologist for evaluation prior to resuming any treatment. Neurology reports of metabolic encephalopathy, multifactorial underlying causes may be infection, medications, antibiotics, additional stress (3 recent hospitalizations). Mental status has declined since Thursday. Patient continues to be non-verbal and twitching of the face is noted. Patient's medication list has been minimized by Internal Medicine. Did review the patient's case with Infectious Disease today, antibiotics adjusted. Chest x-ray report reviewed, atelectasis, from bed rest, lack of activity. IS ordered-unfortunately patient is not alert and cooperative enough to do the same. Daily f/u Labs already ordered for AM Continue supportive care. Spoke with about persistent altered mental status. Encephalopathy may take some time to recuperate from. Continue with supportive care.
--- NOTE | 2022-04-17 14:58 | P.PN ---
Subjective Progress Note Date: 04/17/22 Principal diagnosis: Lower extremity cellulitis and toxo metabolic encephalopathy Patient still remains delirious. He is opening his eyes and moving around in bed. However not responding to any commands. I discussed the case with neurology who said it is toxic metabolic encephalopathy and also likely due to sedation medication. I stop patient gabapentin 2 days ago. Objective - Vital Signs Vital signs: Vital Signs Temp 98.4 F 04/17/22 12:02 Pulse 97 04/17/22 12:02 Resp 18 04/17/22 12:02 BP 158/97 04/17/22 12:02 Pulse Ox 98 04/17/22 12:02 FiO2 Intake & Output 04/16/22 04/17/22 04/17/22 18:59 06:59 18:59 Weight 97.522 kg Other: Voiding Method Diaper Diaper Incontinent Incontinent # Voids 3 2 1 # Bowel Movements 2 1 - Exam General examination -patient somnolent but easily arousable. 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, at times patient is following simple commands Psych -lethargic and somnolent, waxing and waning - Labs CBC & Chem 7: 04/16/22 05:26 04/17/22 06:58 Labs: Abnormal Lab Results - Last 24 Hours (Table) 04/17/22 Range/Units 06:58 Potassium 3.3 L (3.5-5.5) mmol/L Anion Gap 9.40 L (10.00-18.00) mmol/L Creatinine 1.9 H (0.6-1.5) mg/dL Est GFR (CKD-EPI)AfAm 41.1 L (60.0-200.0) Est GFR (CKD-EPI)NonAf 35.4 L (60.0-200.0) BUN/Creatinine Ratio 5.26 L (12.00-20.00) Ratio Assessment and Plan Assessment: Left lower extremity cellulitis with abscess - s/p I and D 04/07 - vanco/cefepime discontinued and stared on cefazolin by ID. Cefazolin discontinued and patient started on IV Zosyn on 04/17/2022 - Midline ordered, plan is for 2 weeks of IV abx. - wound care per vascular - ID following - Growing pseudomonas from wound cx, abx changed to cefepime on 04/14 Multiple myeloma Pancytopenia - oncology recs - CBC stable, continue to monitor Acute toxic metabolic encephalopathy likely due to opioids and gabapentin - Head CT negative - Ammonia level normal - stopped opitates and gabapentin and resume acetaminophen - Neurology following, had brain MRI which was ok, EEG shwoing generalized slowing consistent with toxic metabolic encephalopathy -I'm hoping that with the treatment of the infection about and holding his sedation medicine his mental status will improve soon. -I spoke with the other provider who was taking care of the patient at the beginning of his hospital course who said patient was awake and alert and responding. This is clearly not patient's baseline. Elevated TSH and free T4 -Likely due to acute illness. Will need repeat labs in 6 weeks T 12 fracture, multiple vertebral fractures due to MM, lumbar spine neuroforaminal stenosis, intractable pain on chronic pain - medication changes as above. - Dr. Rubio plan at this time due to infection is LSO brace and pain control. - Dr. Hill no indication for repeat radiation. DUNCAN on CKD 3 due to ATN -Patient currently is stable around 1.8 -Nephrology following Hyponatremia, resolved - On IV fluids per nephro, cr improved, baseline around 1.8 Chronic: Prior pulmonary embolism on Dilantin Dyslipidemia Gait dysfunction Chronic low back pain Coronary artery disease General weakness PT OT -> will likely need rehab DVT prophylaxis: greg Discussed with: patient, family, nursing, Dr. Kern Anticipated discharge: Patient medically stable for discharge tomorrow if he is more awake and alert. Awaiting placement Anticipated discharge place: rehab
--- NOTE | 2022-04-17 15:15 | P.OP ---
Date of Procedure: 04/17/22 Description of Procedure: Preoperative diagnosis: Left lower extremity bullae Postoperative diagnosis: Same, old hematoma versus areas of infection. No obvious significant purulent drainage Procedure: Incision and drainage of multiple fluctuant areas of the left lower extremity Surgeon: Rea Lee D.O EBL: 5 mL IV fluids: None Urine output: None Drains: None Complications: None immediately apparent Condition: Patient tolerated procedure well Operative indication and findings: Patient is a 67-year-old male with neutropenia who has recently had cellulitis and debridement of areas on his left lower extremity. He was started to have more of these areas therefore we are be contacted regarding drainage. He previously had Pseudomonas growing from the wound cultures risks and benefits were discussed with the at the bedside. She seemingly C it is willing to proceed with incision and drainage. Procedure in detail: Areas of fluctuance or prepped with iodine. Drapes were utilized. 1% lidocaine was infiltrated into the superficial tissue and 11 blade scalpel was used to incise the areas. There was thickened material exuded from these wounds, partially apparently old hematoma however some minimal purulence appear to need areas as well. They were irrigated. There were approximate 5 a nd total they were all packed with iodoform gauze. A wrap was placed.
[2022-04-17] MEDS: POTASSIUM CHLORIDE 10 MEQ in WATER FOR INJECTION 1 100ML.BAG IVPB SCH ×4 (17:20→22:00)
[2022-04-18] MEDS: LACTATED RINGERS 1,000 ML IV SCH (00:04)
[2022-04-18] MEDS: PIPERACILLIN-TAZOBACTAM 3.375 GM in SODIUM CHLORIDE 0.9% 100 ML IVPB SCH ×3 (03:16→21:11)
[2022-04-18] MEDS: ACYCLOVIR 200 MG CAP PO SCH ×3 (08:24→21:28)
[2022-04-18] MEDS: MULTIVITAMINS, THERA 1 EACH TAB PO SCH (08:25)
[2022-04-18] MEDS: APIXABAN 5 MG TAB PO SCH ×3 (08:25→21:29)
[2022-04-18 08:53] LABS: African American GFR (CKD) 40.6 (60.0-200.0); Anion Gap 15.2 mmol/L (10.00-18.00); BUN/Creat Ratio 5.83 Ratio (12.00-20.00); Blood Urea Nitrogen 11.2 mg/dL (9.0-27.0); Calcium 8.8 mg/dL (8.7-10.3); Carbon Dioxide 20.4 mmol/L (20.0-27.5)
--- NOTE | 2022-04-18 09:27 | P.PN ---
Subjective Progress Note Date: 04/15/22 Principal diagnosis: Left foot abscess and cellulitis Patient is a 67-year-old male presenting to the hospital with a fever and chills and left foot and leg pain swelling and redness has been diagnosed with a left foot abscess and cellulitis. Patient is status post surgical drainage of the abscess completed on 04/07/2022 On today's evaluation that is 04/15/2022, the patient continues to be afebrile, the patient is breathing comfortably on oxygen, the patient pain to the left foot or left leg is currently controlled, patient denies chest pain or shortness of breath or cough no abdominal pain or diarrhea Objective - Vital Signs Vital signs: Vital Signs Temp 98.3 F 04/15/22 11:44 Pulse 98 04/15/22 11:44 Resp 14 04/15/22 11:44 BP 118/86 04/15/22 11:44 Pulse Ox 96 04/15/22 11:44 FiO2 Intake & Output 04/14/22 04/15/22 04/15/22 18:59 06:59 18:59 Intake Total 440 Balance 440 Intake: Oral 440 Other: Voiding Method Diaper Diaper Incontinent Incontinent # Voids 3 - Exam GENERAL DESCRIPTION: An elderly male lying in bed in no distress RESPIRATORY SYSTEM: Unlabored breathing , decreased breath sounds at bases HEART: S1 S2 regular rate and rhythm , ABDOMEN: Soft , no tenderness EXTREMITIES: Left leg and foot is currently No drainage on the dressing - Labs CBC & Chem 7: 04/16/22 05:26 04/18/22 06:44 Labs: Microbiology - Last 24 Hours (Table) 04/07/22 14:52 Gram Stain - Final Leg - Left Wound Culture - Final Pseudomonas aeruginosa 04/07/22 14:51 Gram Stain - Final Foot - Left Wound Culture - Final Pseudomonas aeruginosa 04/07/22 14:52 Anaerobic Culture - Final Leg - Left 04/07/22 14:51 Anaerobic Culture - Final Foot - Left Assessment and Plan (1) Cellulitis Current Visit: Yes Status: Acute Priority: High Code(s): L03.90 - CELLULITIS, UNSPECIFIED SNOMED Code(s): 671492468 Plan: 1patient presented to hospital with fever weakness increasing pain and swelling to the left foot in this patient recently treated for cellulitis CT at that time did not show any abscess and there is a question of a necrotizing infection however the patient was evaluated by orthopedic and recommended no surgical intervention patient now clinically has evidence of left foot abscess could be responsible for his recurrent symptoms. 2 CT of the left foot did shows evidence of abscess and the patient is status post drainage of the abscess on 04/07/2022 and the cultures were finalized with Pseudomonas 3patient to continue with cefepime 2 g every 8 hours local wound care with the iodoform packing of the wound Time with Patient: Less than 30
[2022-04-18 09:29] LABS: Basophils # (A) 0.01 X 10*3/uL (0.00-0.10); Basophils % (A) 0.3 %; Eosinophils # (A) 0.06 X 10*3/uL (0.04-0.35); Eosinophils % (A) 1.5 %; HCT 31.2 % (39.6-50.0); HGB 9.6 g/dL (13.0-17.0); Immature Grans, Automated 0.8 %; Lymphocytes # (A) 0.29 X 10*3/uL (0.90-5.00); Lymphocytes % (A) 7.3 %; MCH 30.6 pg (27.0-32.0); MCHC 30.8 g/dL (32.0-37.0); MCV 99.4 fL (80.0-97.0); Monocytes # (A) 1.02 X 10*3/uL (0.20-1.00); Monocytes % (A) 25.7 %; NRBC Per 100 WBC 0.5 /100 WBCS (0.0-0.0); Neutrophils # (A) 2.56 X 10*3/uL (1.80-7.70); Neutrophils % (A) 64.4 %; Platelet Count 93 X 10*3/uL (140-440); RBC 3.14 X 10*6/uL (4.40-5.60); RDW 23.3 % (11.5-14.5); WBC 3.97 X 10*3/uL (4.50-10.00)
--- NOTE | 2022-04-18 09:29 | P.PN ---
Subjective Progress Note Date: 04/16/22 Principal diagnosis: Left foot abscess and cellulitis Patient is a 67-year-old male presenting to the hospital with a fever and chills and left foot and leg pain swelling and redness has been diagnosed with a left foot abscess and cellulitis. Patient is status post surgical drainage of the abscess completed on 04/07/2022 On today's evaluation that is 04/16/2022, the patient remains to be afebrile, the patient is breathing comfortably on oxygen, the patient pain to the left foot or left leg is currently controlled, patient noticed small area of swelling to the right posterior leg patient denies any worsening pain to the area though, continue to have problem with some mentation Objective - Vital Signs Vital signs: Vital Signs Temp 98.4 F 04/16/22 13:00 Pulse 89 04/16/22 13:00 Resp 13 04/16/22 13:00 BP 143/92 04/16/22 13:00 Pulse Ox 96 04/16/22 13:00 FiO2 Intake & Output 04/15/22 04/16/22 04/16/22 18:59 06:59 18:59 Intake Total 1000 Balance 1000 Intake: Intake, IV Titration 800 Amount Cefepime 2 gm In Sodium 200 Chloride 0.9% 100 ml @ 25 mls/hr IVPB Q12H NNAMDI Rx# :[id number] Lactated Ringers 1,000 ml 600 @ 75 mls/hr IV .[id number] NNAMDI Rx#:[id number] Oral 200 Other: Voiding Method Diaper Diaper Diaper Incontinent Incontinent Incontinent # Voids 2 1 # Bowel Movements 1 - Exam GENERAL DESCRIPTION: An elderly male lying in bed in no distress RESPIRATORY SYSTEM: Unlabored breathing , decreased breath sounds at bases HEART: S1 S2 regular rate and rhythm , ABDOMEN: Soft , no tenderness EXTREMITIES: Left leg and foot is currently No drainage on the dressing - Labs CBC & Chem 7: 04/16/22 05:26 04/18/22 06:44 Labs: Abnormal Lab Results - Last 24 Hours (Table) 04/15/22 04/16/22 04/16/22 Range/Units 21:25 05:26 05:26 WBC 2.36 L (4.50-10.00) X 10*3/uL RBC 2.57 L (4.40-5.60) X 10*6/uL Hgb 7.8 L (13.0-17.0) g/dL Hct 25.6 L (39.6-50.0) % MCV 99.6 H (80.0-97.0) fL MCHC 30.5 L (32.0-37.0) g/dL RDW 22.9 H (11.5-14.5) % Plt Count 72 L (140-440) X 10*3/uL Plt Count Comment DECREASED A Absolute Nucleated RBC 0.02 H (0.00-0.00) X 10*3/uL Neutrophils # 1.38 L (1.80-7.70) X 10*3/uL Lymphocytes # 0.21 L (0.90-5.00) X 10*3/uL NRBC/100 WBC Diff 0.8 H (0.0-0.0) /100 WBCS Immature Plt Fraction 14.3 H (1.1-6.1) % ABG pH 7.48 H (7.35-7.45) ABG pCO2 33 L (35-45) mmHg ABG pO2 81 L (83-108) mmHg ABG Total CO2 25 H (19-24) mmol/L ABG O2 Saturation 98.0 H (94-97) % Potassium 3.3 L (3.5-5.5) mmol/L Creatinine 1.9 H (0.6-1.5) mg/dL Est GFR (CKD-EPI)AfAm 41.1 L (60.0-200.0) Est GFR (CKD-EPI)NonAf 35.4 L (60.0-200.0) BUN/Creatinine Ratio 5.26 L (12.00-20.00) Ratio Calcium 8.5 L (8.7-10.3) mg/dL Assessment and Plan (1) Cellulitis Current Visit: Yes Status: Acute Priority: High Code(s): L03.90 - CELLULITIS, UNSPECIFIED SNOMED Code(s): 960351263 Plan: 1patient presented to hospital with fever weakness increasing pain and swelling to the left foot in this patient recently treated for cellulitis CT at that time did not show any abscess and there is a question of a necrotizing infection however the patient was evaluated by orthopedic and recommended no surgical intervention patient now clinically has evidence of left foot abscess could be responsible for his recurrent symptoms. 2 CT of the left foot did shows evidence of abscess and the patient is status post drainage of the abscess on 04/07/2022 and the cultures were finalized with Pseudomonas , patient did have another fluctuant area to the right posterior leg which need to be drained discussed with the nursing staff 3patient to continue with cefepime 2 g every 8 hours local wound care with the iodoform packing of the wound Time with Patient: Less than 30
--- NOTE | 2022-04-18 09:31 | P.PN ---
Subjective Progress Note Date: 04/17/22 Principal diagnosis: Left foot abscess and cellulitis Patient is a 67-year-old male presenting to the hospital with a fever and chills and left foot and leg pain swelling and redness has been diagnosed with a left foot abscess and cellulitis. Patient is status post surgical drainage of the abscess completed on 04/07/2022 On today's evaluation that is 04/17/2022, the patient continues to be afebrile, the patient is breathing comfortably on nasal cannula oxygen, the patient pain to the left foot or left leg is currently controlled, patient did have small area of swelling to the right posterior leg patient , patient seemed to have worsening problem with his mentation despite being off the fentanyl patch Objective - Vital Signs Vital signs: Vital Signs Temp 98.4 F 04/17/22 12:02 Pulse 97 04/17/22 12:02 Resp 18 04/17/22 12:02 BP 158/97 04/17/22 12:02 Pulse Ox 98 04/17/22 12:02 FiO2 Intake & Output 04/16/22 04/17/22 04/17/22 18:59 06:59 18:59 Weight 97.522 kg Other: Voiding Method Diaper Diaper Incontinent Incontinent # Voids 3 2 1 # Bowel Movements 2 1 - Exam GENERAL DESCRIPTION: An elderly male lying in bed in no distress RESPIRATORY SYSTEM: Unlabored breathing , decreased breath sounds at bases HEART: S1 S2 regular rate and rhythm , ABDOMEN: Soft , no tenderness EXTREMITIES: Left leg and foot is currently No drainage on the dressing - Labs CBC & Chem 7: 04/18/22 06:52 04/18/22 06:44 Labs: Abnormal Lab Results - Last 24 Hours (Table) 04/17/22 Range/Units 06:58 Potassium 3.3 L (3.5-5.5) mmol/L Anion Gap 9.40 L (10.00-18.00) mmol/L Creatinine 1.9 H (0.6-1.5) mg/dL Est GFR (CKD-EPI)AfAm 41.1 L (60.0-200.0) Est GFR (CKD-EPI)NonAf 35.4 L (60.0-200.0) BUN/Creatinine Ratio 5.26 L (12.00-20.00) Ratio Assessment and Plan (1) Cellulitis Current Visit: Yes Status: Acute Priority: High Code(s): L03.90 - CELLULITIS, UNSPECIFIED SNOMED Code(s): 412140704 Plan: 1patient presented to hospital with fever weakness increasing pain and swelling to the left foot in this patient recently treated for cellulitis CT at that time did not show any abscess and there is a question of a necrotizing infection however the patient was evaluated by orthopedic and recommended no surgical int ervention patient now clinically has evidence of left foot abscess could be responsible for his recurrent symptoms. 2 CT of the left foot did shows evidence of abscess and the patient is status post drainage of the abscess on 04/07/2022 and the cultures were finalized with Pseudomonas , patient did have another fluctuant area to the right posterior leg which need to be drained, vascular surgery to reevaluate the patient 3patient did have significant encephalopathy which could be related to cef epime, cefepime has been discontinued, will start patient on Zosyn and monitor clinical course closely discussed with the SUPERINTENDENT LOCAL for oncology team Time with Patient: Less than 30
--- NOTE | 2022-04-18 10:23 | P.PN ---
Subjective Progress Note Date: 04/18/22 Principal diagnosis: Left foot abscess Patient is seen and examined today as a follow-up. Vascular surgery was read consulted regarding possible abscesses on his left lower extremity. Yesterday he underwent incision and drainage on multiple left lower extremity bullae. There was no obvious significant purulent drainage, old hematoma versus areas of infection. Cultures were taken. He did have some bleeding overnight, which was redressed. The patient continues to be lethargic, nonverbal. He does not appear to be in any pain or distress. He's been afebrile. Objective - Vital Signs Vital signs: Vital Signs Temp 99 F 04/18/22 04:37 Pulse 90 04/18/22 04:37 Resp 16 04/18/22 04:37 BP 116/74 04/18/22 04:37 Pulse Ox 91 L 04/18/22 04:37 FiO2 Intake & Output 04/17/22 04/18/22 04/18/22 18:59 06:59 18:59 Intake Total 0 Balance 0 Intake: Oral 0 Other: Voiding Method Diaper Diaper Diaper Incontinent Incontinent Incontinent # Voids 1 3 # Bowel Movements 1 - Exam General appearance: The patient is alert, oriented, appears in no acute distress. HET: Head is normocephalic and atraumatic. Neck: Supple without lymphadenopathy. Trachea midline. Extremities: Bilateral lower extremities with edema. Left lower extremity with 5 areas that were incised and drained, with iodoform packing in place. Serosanguineous drainage. Neurological: No focal deficits. Alert and oriented 3. - Labs CBC & Chem 7: 04/18/22 06:52 04/18/22 06:44 Labs: Abnormal Lab Results - Last 24 Hours (Table) 04/17/22 04/18/22 04/18/22 Range/Units 06:58 06:44 06:52 WBC 3.97 L (4.50-10.00) X 10*3/uL RBC 3.14 L (4.40-5.60) X 10*6/uL Hgb 9.6 L (13.0-17.0) g/dL Hct 31.2 L (39.6-50.0) % MCV 99.4 H (80.0-97.0) fL MCHC 30.8 L (32.0-37.0) g/dL RDW 23.3 H (11.5-14.5) % Plt Count 93 L (140-440) X 10*3/uL Absolute Nucleated RBC 0.02 H (0.00-0.00) X 10*3/uL Lymphocytes # 0.29 L (0.90-5.00) X 10*3/uL Monocytes # 1.02 H (0.20-1.00) X 10*3/uL NRBC/100 WBC Diff 0.5 H (0.0-0.0) /100 WBCS Potassium 3.3 L (3.5-5.5) mmol/L Anion Gap 9.40 L (10.00-18.00) mmol/L Creatinine 1.9 H 1.9 H (0.6-1.5) mg/dL Est GFR (CKD-EPI)AfAm 41.1 L 40.6 L (60.0-200.0) Est GFR (CKD-EPI)NonAf 35.4 L 35.0 L (60.0-200.0) BUN/Creatinine Ratio 5.26 L 5.83 L (12.00-20.00) Ratio Microbiology - Last 24 Hours (Table) 04/17/22 15:39 Anaerobic Culture - Preliminary Leg - Left Assessment and Plan Assessment: 1. Multiple Left lower extremity bullae status post incision and drainage 2. Left foot/leg abscess status post incision and drainage 3. Positive wound cultures for Pseudomonas aeruginosa 4. Cellulitis of the left lower extremity 5. Multiple myeloma 6. Metabolic encephalopathy 5. History of pulmonary embolism on Eliquis 6. Peripheral neuropathy 7. History of coronary artery disease status post stent 8. History hypertension 9. History hyperlipidemia 10. Obesity Plan: 1. Continue IV antibiotics per recommendations from infectious disease 2. Daily dressing changes with iodoform, 4 x 4 and Kerlix 3. Wound cultures pending Thank you for this consultation, we will be on standby. Please do not hesitate to contact us for any further needs. The impression and plan of care has been dictated as directed. Dr. Lee I performed a history and examination of this patient, discussed the same with the dictator. I agree with the dictator's note ,documented as a scribe. Any additional findings or plans will be noted.
--- NOTE | 2022-04-18 11:33 | P.PN ---
Subjective Progress Note Date: 04/18/22 Principal diagnosis: Lower extremity cellulitis and toxo metabolic encephalopathy Patient unfortunately is still delirious. He is not following any commands. Patient had a poor baseline for the past few days. I feel his mental status is slightly worse today as patient is barely even opening his eyes. Patient was seen by vascular surgery yesterday and had further debridement of his left lower extremity. Infectious disease also adjusted as his antibiotics and cefepime can also cause some encephalopathy. Patient is afebrile. Objective - Vital Signs Vital signs: Vital Signs Temp 99 F 04/18/22 04:37 Pulse 90 04/18/22 04:37 Resp 16 04/18/22 04:37 BP 116/74 04/18/22 04:37 Pulse Ox 91 L 04/18/22 04:37 FiO2 Intake & Output 04/17/22 04/18/22 04/18/22 18:59 06:59 18:59 Intake Total 0 Balance 0 Intake: Oral 0 Other: Voiding Method Diaper Diaper Diaper Incontinent Incontinent Incontinent # Voids 1 3 # Bowel Movements 1 - Exam General examination -patient somnolent and difficult to arouse HEENT: Bilateral pupils dilated Heart - + S1S2 no murmurs Lungs -diminished breath sounds bilaterally Abdomen soft NT ND +ve BS Extremities -+1 pitting edema bilateral lower extremities [employer] -patient moving all 4 extremities spontaneously, patient was not following any commands Psych -lethargic and somnolent, waxing and waning - Labs CBC & Chem 7: 04/18/22 06:52 04/18/22 06:44 Labs: Abnormal Lab Results - Last 24 Hours (Table) 04/18/22 04/18/22 Range/Units 06:44 06:52 WBC 3.97 L (4.50-10.00) X 10*3/uL RBC 3.14 L (4.40-5.60) X 10*6/uL Hgb 9.6 L (13.0-17.0) g/dL Hct 31.2 L (39.6-50.0) % MCV 99.4 H (80.0-97.0) fL MCHC 30.8 L (32.0-37.0) g/dL RDW 23.3 H (11.5-14.5) % Plt Count 93 L (140-440) X 10*3/uL Absolute Nucleated RBC 0.02 H (0.00-0.00) X 10*3/uL Lymphocytes # 0.29 L (0.90-5.00) X 10*3/uL Monocytes # 1.02 H (0.20-1.00) X 10*3/uL NRBC/100 WBC Diff 0.5 H (0.0-0.0) /100 WBCS Creatinine 1.9 H (0.6-1.5) mg/dL Est GFR (CKD-EPI)AfAm 40.6 L (60.0-200.0) Est GFR (CKD-EPI)NonAf 35.0 L (60.0-200.0) BUN/Creatinine Ratio 5.83 L (12.00-20.00) Ratio Microbiology - Last 24 Hours (Table) 04/17/22 15:39 Wound Culture - Preliminary Leg - Left 04/17/22 15:39 Anaerobic Culture - Preliminary Leg - Left Assessment and Plan Assessment: Left lower extremity cellulitis with abscess - s/p I and D 04/07. Patient had further debridement done on 04/17/2020 - vanco/cefepime discontinued and stared on cefepime by ID. cefepime discontinued and patient started on IV Zosyn on 04/17/2022 as it was thought that the cefepime could be contributing to his encephalopathy - Midline ordered, plan is for 2 weeks of IV abx. - wound care per vascular - ID following - Growing pseudomonas from wound cx. Follow-up will repeat wound cultures done on 04/17/2022 Multiple myeloma Pancytopenia - oncology recs - CBC stable, continue to monitor Acute toxic metabolic encephalopathy likely due to opioids and gabapentin -We'll repeat CT had this morning - Ammonia level normal - stopped opitates and gabapentin and resume acetaminophen for pain - Neurology following, had brain MRI which was ok, EEG shwoing generalized slowing consistent with toxic metabolic encephalopathy -I'm hoping that with the treatment of the infection and holding his sedation medicine his mental status will improve soon. -I spoke with the other provider who was taking care of the patient at the beginning of his hospital course who said patient was awake and alert and responding. This is clearly not patient's baseline. Elevated TSH and free T4 -Likely due to acute illness. Will need repeat labs in 6 weeks T 12 fracture, multiple vertebral fractures due to MM, lumbar spine neuroforaminal stenosis, intractable pain on chronic pain - medication changes as above. - Dr. Rubio plan at this time due to infection is LSO brace and pain control. - Dr. Hill no indication for repeat radiation. DUNCAN on CKD 3 due to ATN -Patient currently is stable around 1.8 -Nephrology following Hyponatremia, resolved - On IV fluids per nephro, cr improved, baseline around 1.8 Chronic: Prior pulmonary embolism on Dilantin Dyslipidemia Gait dysfunction Chronic low back pain Coronary artery disease General weakness PT OT -> will likely need rehab DVT prophylaxis: greg Discussed with: patient, family, nursing, Dr. Kern Anticipated discharge: Patient medically stable for discharge tomorrow if he is more awake and alert. Awaiting placement Anticipated discharge place: rehab
--- NOTE | 2022-04-18 12:27 | P.PN ---
Subjective Progress Note Date: 04/18/22 Principal diagnosis: abscess drainage. Multiple myeloma on treatment. In follow-up today patient is not responding to commands, he is nonverbal, slightly less agitation noted today. Objective - Vital Signs Vital signs: Vital Signs Temp 99 F 04/18/22 04:37 Pulse 90 04/18/22 04:37 Resp 16 04/18/22 04:37 BP 116/74 04/18/22 04:37 Pulse Ox 91 L 04/18/22 04:37 FiO2 Intake & Output 04/17/22 04/18/22 04/18/22 18:59 06:59 18:59 Intake Total 0 Balance 0 Intake: Oral 0 Other: Voiding Method Diaper Diaper Diaper Incontinent Incontinent Incontinent # Voids 1 3 # Bowel Movements 1 - Constitutional General appearance: Present: thin - EENT Eyes: Present: anicteric sclerae - Respiratory Respiratory: bilateral: CTA, diminished - Cardiovascular Rhythm: regular Heart sounds: normal: S1, S2 - Musculoskeletal Musculoskeletal: Present: generalized weakness - Psychiatric Psychiatric: Absent: A&O x's 3, appropriate affect, intact judgment & insight - Labs CBC & Chem 7: 04/18/22 06:52 04/18/22 06:44 Labs: Abnormal Lab Results - Last 24 Hours (Table) 04/18/22 04/18/22 Range/Units 06:44 06:52 WBC 3.97 L (4.50-10.00) X 10*3/uL RBC 3.14 L (4.40-5.60) X 10*6/uL Hgb 9.6 L (13.0-17.0) g/dL Hct 31.2 L (39.6-50.0) % MCV 99.4 H (80.0-97.0) fL MCHC 30.8 L (32.0-37.0) g/dL RDW 23.3 H (11.5-14.5) % Plt Count 93 L (140-440) X 10*3/uL Absolute Nucleated RBC 0.02 H (0.00-0.00) X 10*3/uL Lymphocytes # 0.29 L (0.90-5.00) X 10*3/uL Monocytes # 1.02 H (0.20-1.00) X 10*3/uL NRBC/100 WBC Diff 0.5 H (0.0-0.0) /100 WBCS Creatinine 1.9 H (0.6-1.5) mg/dL Est GFR (CKD-EPI)AfAm 40.6 L (60.0-200.0) Est GFR (CKD-EPI)NonAf 35.0 L (60.0-200.0) BUN/Creatinine Ratio 5.83 L (12.00-20.00) Ratio Microbiology - Last 24 Hours (Table) 04/17/22 15:39 Wound Culture - Preliminary Leg - Left 04/17/22 15:39 Anaerobic Culture - Preliminary Leg - Left Assessment and Plan (1) Cellulitis Current Visit: Yes Status: Acute Priority: High Code(s): L03.90 - CELLULITIS, UNSPECIFIED SNOMED Code(s): 613164605 (2) Multiple myeloma Current Visit: No Status: Chronic Priority: Medium Code(s): C90.00 - MULTI PLE MYELOMA NOT HAVING ACHIEVED REMISSION SNOMED Code(s): 587599429 Plan: Patient undergoing care of LLE abscess/infection. Posterior lt calf lesion I&D yesterday. Defer management of the same. Hypogammaglobulinemia. IVIG given. Recheck IgG->700, adequate For back pain, per Rad Onc, Radiation not felt to be modality that can be utili zed for the patient's low back pain at this time since the area has been treated before and this last time there was no significant pain relief. Appreciate Ortho Spine eval of pt, TSLO brace recommended. Cont pt pain meds as he tolerates. Hold Myeloma treatment with acute infection. Kyprolis infusion, oral pomalyst and Dex. If pt goes to rehab will hold treatment until discharged and seen by Oncologist for evaluation prior to resuming any treatment. Neurology reports of metabolic encephalopathy, multifactorial underlying causes may be infection, medications, antibiotics, additional stress (3 recent hospitalizations). Mental status declined since Thursday. Patient continues to be non-verbal but, less twitching of the face today. Patient's medication list has been minimized by Internal Medicine. Antibiotics adjusted 04/17. CBC showed a little improvement today. IS ordered-unfortunately patient is not alert and cooperative enough to do the same. Daily f/u Labs already ordered for AM Continue supportive care. Spoke with about persistent altered mental status. Encephalopathy may take some time to recuperate from. Continue with supportive care.
--- NOTE | 2022-04-18 12:34 | P.PN ---
Subjective Progress Note Date: 04/17/22 04/17/2022: Patient was seen for a follow-up. Patient's was present today. She states patient is not eating, hard to swallow, sometimes chokes. He is moving legs a lot, sometimes stretching, moving arms as well. He is not much communicating. 04/15/2022: Patient was seen for a follow-up. Patient's was present today. She believes that he is very tired, slept a lot. He has 8 little breakfast. Now more awake. PT has worked with him. They asked him to do stand ups 5 times which he did. 04/14/2022: Patient was seen for a follow-up. Patient initially seen by Dr. Harsha Kern. Please refer to his note for details. Patient is a 67-year-old male with altered mental status. Patient has history of multiple myeloma. He had recent left lower extremity cellulitis. Patient's one of the relative was present. Patient is doing better. No new concerns. Objective - Vital Signs Vital signs: Vital Signs Temp 98.4 F 04/17/22 12:02 Pulse 97 04/17/22 12:02 Resp 18 04/17/22 12:02 BP 158/97 04/17/22 12:02 Pulse Ox 98 04/17/22 12:02 FiO2 Intake & Output 04/16/22 04/17/22 04/17/22 18:59 06:59 18:59 Weight 97.522 kg Other: Voiding Method Diaper Diaper Incontinent Incontinent # Voids 3 2 1 # Bowel Movements 2 1 - Exam On examination patient is encephalopathic, slightly groggy but does wake up. Patient did not speak much worse today despite asking multiple times. He is s omewhat slow mentation. On cranial nerve examination, pupils are equal, round and reacting, visual could not be tested. Extraocular muscles are intact. Face is symmetric and he did not protrude his tongue. Patient did not cooperate with muscle strength testing. It appears the myoclonic jerks have much improved. Occasional twitching of the left facial region. - Labs CBC & Chem 7: 04/18/22 06:52 04/18/22 06:44 Labs: Abnormal Lab Results - Last 24 Hours (Table) 04/17/22 Range/Units 06:58 Potassium 3.3 L (3.5-5.5) mmol/L Anion Gap 9.40 L (10.00-18.00) mmol/L Creatinine 1.9 H (0.6-1.5) mg/dL Est GFR (CKD-EPI)AfAm 41.1 L (60.0-200.0) Est GFR (CKD-EPI)NonAf 35.4 L (60.0-200.0) BUN/Creatinine Ratio 5.26 L (12.00-20.00) Ratio Assessment and Plan Assessment: * Altered mental status, likely due to metabolic encephalopathy. Patient con tinues to be encephalopathic. His myoclonic jerks have improved, but mentation has not improved, slightly worse. * Anemia, worse yesterday, with hemoglobin 7.8 * Cellulitis with abscess. * Possible medication effect * Multiple myeloma undergoing chemotherapy and has pancytopenia. * Acute on chronic renal insufficiency, stable. * T12 fracture with multiple vertebral fracture due to multiple myeloma. * Lumbar spondylosis with multiple neural foraminal stenosis. * History of pulmonary embolism on Eliquis * History of coronary artery disease * Dyslipidemia Plan: * Patient continues to be encephalopathic. His mentation has slightly got worse, despite improvement in the metabolic tremors/myoclonic jerks. * Recheck CT head, EEG. Discussed with patient's . * EEG 04/14/2022 was abnormal due to background slowing of mild to moderate degree, consistent with encephalopathy. No epileptiform activity was seen. * MRI of the brain revealed no acute ischemia. Degenerative and remote ischemic change. Mild right mastoiditis. I personally reviewed MRI of the brain and agree with the findings. * Gabapentin has been discontinued, therefore myoclonic jerks have improved. * If possible try to avoid narcoits, opiates or sedation which can affect patient mentation/neurological examination. * Will defer thryorid management to primary team. * ID is on board, patient on Zosyn. * Orthopedic team is on board * We'll defer the rest of the medical management to primary team.
--- NOTE | 2022-04-18 13:18 | CT ---
EXAMINATION TYPE: CT brain wo con DATE OF EXAM: 04/18/2022 COMPARISON: 04/11/2022 HISTORY: 67-year-old male marked confusion, severe Altered mental status TECHNIQUE: Examination was done in axial plane without intravenous contrast. Coronal and sagittal r econstructions performed. The dairy technologist notes that the patient was scanned 3 times due the hilda ent not cooperating. CT DLP: 2191.2 mGycm Automated exposure control for dose reduction was used. FINDINGS: Limited due to motion. Allowing for this limitation, there is no evidence of acute intracranial hemo rrhage, acute ischemic changes, mass, mass-effect, or extra-axial fluid collection. There is no effa cement of cerebral sulci or basal subarachnoid cisterns. There is no hydrocephalus. There is no mid line shift. Hernandez-white matter distinction is preserved. Slight rightward nasal septal deviation. Mild mucosal thickening left maxillary sinus. Mastoid air ce lls well pneumatized. IMPRESSION: Patient was scanned 3 times; they were not cooperating for the scan. Motion limits the exam. No defin ite acute intracranial abnormality seen.
--- NOTE | 2022-04-18 13:37 | P.CONS ---
History of Present Illness - Reason for Consult Consult date: 04/18/22 Goals of care Requesting physician: Rajeev Burnette - Chief Complaint malaise, fever, left foot pain - History of Present Illness The patient is a 67-year-old male with a PMH of multiple myeloma following with Dr. Mensah (currently undergoing chemotherapy), history of pulmonary embolism on Eliquis, and persistent left lower extremity cellulitis with failed outpatient t herapy. He presented to the emergency room on 04/06/22 with worsening left lower extremity pain, erythema, and swelling. The patient was discharged from the hospital on 04/03 with oral Keflex after a four-day hospital stay for left lower extremity cellulitis. Patient reports that roughly 24-48 hours after arrival at home, he noticed that his left leg began getting increasingly red, swollen, and painful again. He also developed fevers which prompted him to come to the emergency room. Reports that his pain in the left leg is 3 out of 10, and is similar to when he was previously admitted on 03/30. The patient had previously been prescribed oral clindamycin which also failed. Denied experiencing chest discomfort, shortness of breath, nausea, vomiting, pain, diarrhea. Upon presentation in the ED, the patient's T-max was 100.8F with laboratory evaluation remarkable for CRP of 20.9 (previously 14.2 on 03/31). Chest x-ray was unremarkable. Mr. Paul has a long history of treatment for multiple myeloma. Initially presented with progressive back pain that started in August 2015. Workup ultimately revealed elevated calcium, protein, creatinine, decreased hemoglobin, IgG lambda monoclonal protein, M protein 6.8 g/dL normal kappa lambda ratio. He also had osteoporotic compression fractures. 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 Started RVD 01/11/16 , completed 4 cycles, repeat bone marrow revealed minimal residual disease. Underwent autologous stem cell transplant 08/27/16. Started maintenance revlimid end of December 2016, with doses held and reduced for pancytopenia over the years he was on it. He started to have worsening back pain in January 2019, MRI of his lumbar spine 03/10/19 revealed progressing soft tissue mass at L2 causing compression of the thecal sac and L3 nerve root and new paraspinal soft tissue mass at L4-L5, M-protein was up to 2.2gm/dl, Ig level up to 3019mg/dl, free lambda level 148.9mg/L, ratio of 0.04, normal creatinine and calcium, repeat skeletal bone survey revealed no changes. 04/07/19 he started darzalex/pomalyst /decadron. April 2019 he had disseminated zoster and requires viral prophylaxis/suppression medication on active MM treatment. He was admitted early Aug 2019 for shortness of breath, chest pain, hypotension and mild tachycardia. CT of the chest was performed revealing pulmonary embolism, he continues on Eliquis to current. Patient followed up with Dr. Browning in early March, c/o progressive back pain, imaging revealed some progression in vertebral bony lesions. IV regimen changed to kyrpolis, cont on pomalyst and dex as prescribed. S/P C1 D1. Patient underwent an I&D with vascular surgery for left foot abscess. Wound cultures positive for pseudomonas. The patient developed another abscess to the posterior aspect of the LLE which required another I&D. Infectious disease following for appropriate antibiotic coverage. Orthopedic team was consulted due to worsening back pain. Imaging showed multiple vertebral compression fractures and body mass/lesions. They recommend pain magagement with medications and use of TLSO brace. The infections to clear and the wounds to heal before any discussion of potential surgical interventions. Patient to follow up as outpatient. Patient was A&O x 3 upon admission. His mental status declined significantly for past [address] of the head on 04/11/2022 that reported age-related atrophy and chronic small vessel ischemic changes without acute intracranial process seen at this time. Neurology reports of metabolic encephalopathy, multifactorial underlying causes may be infection, medications, antibiotics, additional stress (3 recent hospitalizations). Patient continues to be encephalopathic. EEG 04/14/2022 was abnormal due to background slowing of mild to moderate degree, consistent with encephalopathy. No epileptiform activity was seen. MRI of the brain revealed no acute ischemia. Gabapentin has been discontinued. His mentation has slightly got worse, despite improvement in the metabolic tremors/myoclonic jerks. Antibiotics adjusted 04/17. 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, gait dysfunction-uses walker, bilateral pedal/ankle edema, PE 08/2019, chronic low back pain, past vertebral fractures, minimal CAD, shingelles twice, past R heel wound, elevated lipids in the past, History of Any Multi-Drug Resistant Organisms: None Reported Past Surgical History: Heart Catheterization, Orthopedic Surgery Additional Past Surgical History / Comment(s): excision of uvular lesion(benign) 2009, colonoscopy, dave knee arthroscopy, rt rotator cuff sx, moles removed from back(benign), bone marrow aspiration/bx, stem cell transplant 2015, Past Anesthesia/Blood Transfusion Reactions: No Reported Reaction Past Psychological History: No Psychological Hx Reported Smoking Status: Never smoker Past Alcohol Use History: None Reported Past Drug Use History: None Reported - Past Family History Father Family Medical History: Renal Disease, Vascular Disorder Additional Family Medical History / Comment(s): aaa. Father is . Mother Family Medical History: No Reported History Additional Family Medical History / Comment(s): mom is healthy Medications and Allergies Home Medications Medication Instructions Recorded Confirmed Type Famotidine [Pepcid] 20 mg PO DAILY PRN 04/15/19 04/05/22 History Gabapentin [Neurontin] 300 mg PO TID 04/15/19 04/05/22 History dexAMETHasone 8 mg PO DIRECTED 04/15/19 04/05/22 History Acyclovir 400 mg PO BID 08/24/19 04/05/22 History Pomalyst 3mg 3 mg PO DIRECTED 08/24/19 04/05/22 History Aspirin 81 mg PO DAILY #30 chewable 08/26/19 04/05/22 Rx Apixaban [Eliquis] 5 mg PO BID 10/03/19 04/05/22 History Nitroglycerin Sl Tabs [Nitrostat] 0.4 mg SUBLINGUAL Q5M PRN 10/03/19 04/05/22 History Calcium Carbonate/Vitamin D3 1 cap PO DAILY 01/10/20 04/05/22 History [Calcium 600-Vit D3 20 Mcg (800 Iu)] Potassium Chloride ER [K-Dur 20] 20 meq PO DAILY 01/10/20 04/05/22 History Furosemide [Lasix] 20 mg PO DAILY PRN 05/31/21 04/05/22 History Acetaminophen Tab [Tylenol] 650 mg PO Q6HR PRN tab 06/03/21 04/05/22 Rx Multivitamins, Thera [Multivitamin 1 tab PO DAILY 12/16/21 04/05/22 History (formulary)] oxyCODONE HCL [oxyCODONE HCL (IR)] 10 - 20 mg PO Q4H PRN 03/25/22 04/05/22 History Cephalexin [Keflex] 500 mg PO Q6HR 1 Days #40 cap 04/03/22 04/05/22 Rx Terbinafine 1% Cream [LamISIL] 1 applic TOPICAL TID 90 Days #15 gm 04/03/22 04/05/22 Rx Allergies Allergy/AdvReac Type Severity Reaction Status Date / Time sulfamethoxazole Allergy Rash/Hives Verified 04/05/22 21:45 [From Bactrim] trimethoprim [From Bactrim] Allergy Rash/Hives Verified 04/05/22 21:45 Physical Exam Vitals: Vital Signs Temp Pulse Resp BP Pulse Ox 04/18/22 04:37 99 F 90 16 116/74 91 L 04/17/22 20:00 16 04/17/22 19:53 98.2 F 97 16 146/96 92 L Intake and Output 04/17/22 04/18/22 04/18/22 22:59 06:59 14:59 Intake Total 0 0 Balance 0 0 Intake: Oral 0 0 Other: Voiding Method Diaper Diaper Incontinent Incontinent # Voids 1 3 General: Patient restless and difficult to arouse HEENT: Head is atraumatic, normocephalic Sclerae are clear. Pupils equal, round and reactive to light bilaterally. CV: Heart regular in rate and rhythm positive S1 and S2. No clicks, rubs or murmurs. Peripheral pulses equal. 2/4 Lungs: Diminished bases. No wheezes rales or rhonchi. Respirations even and nonlabored. No intercostal retractions. on RA Abdomen/GI: Soft. Bowel sounds present in all 4 quadrants. Bowel sounds normoactive. No abdominal tenderness. : Lee catheter Musculoskeletal/ Extremities: [place], does not follow commands Vascular: Radial pulses equal. 2/4. 1+ pitting edema bilateral LE edema Skin: No rash. multiple bruises to bilateral arms noted Neurologic: Somnolent, barely opens eyes with physical and verbal stimulation. Psychiatric: Unable to assess. Results CBC & Chem 7: 04/18/22 06:52 04/18/22 06:44 Labs: Abnormal Lab Results - Last 24 Hours (Table) 04/18/22 04/18/22 Range/Units 06:44 06:52 WBC 3.97 L (4.50-10.00) X 10*3/uL RBC 3.14 L (4.40-5.60) X 10*6/uL Hgb 9.6 L (13.0-17.0) g/dL Hct 31.2 L (39.6-50.0) % MCV 99.4 H (80.0-97.0) fL MCHC 30.8 L (32.0-37.0) g/dL RDW 23.3 H (11.5-14.5) % Plt Count 93 L (140-440) X 10*3/uL Absolute Nucleated RBC 0.02 H (0.00-0.00) X 10*3/uL Lymphocytes # 0.29 L (0.90-5.00) X 10*3/uL Monocytes # 1.02 H (0.20-1.00) X 10*3/uL NRBC/100 WBC Diff 0.5 H (0.0-0.0) /100 WBCS Creatinine 1.9 H (0.6-1.5) mg/dL Est GFR (CKD-EPI)AfAm 40.6 L (60.0-200.0) Est GFR (CKD-EPI)NonAf 35.0 L (60.0-200.0) BUN/Creatinine Ratio 5.83 L (12.00-20.00) Ratio Microbiology - Last 24 Hours (Table) 04/17/22 15:39 Wound Culture - Preliminary Leg - Left 04/17/22 15:39 Anaerobic Culture - Preliminary Leg - Left Chest x-ray: report reviewed CT Scan - head: report reviewed MRI - head: report reviewed Assessment and Plan Assessment: Reason for consult - Goals of care Social * Occupation - unemployed/on disability. Worked for a [employer] for over 30 years * Marital status - to , Blossom, for 35 years * Children/grandchildren - 2 adult sons, no grandchildren * Residence - one story house * Who do you reside with - and son * ETOH - No * Tobacco - Never smoked * Illicit drugs - No Spiritual/Cultural * A spiritual person - Yes * Bahai - Mu-Ism * Belong to a particular scientology - No * Beliefs a source of comfort and strength - Yes * Shinto or cultural practices restrictions - No * EOL considerations/rituals? No Functional Assessment * Able to walk independently - No * Assistive devices - walker and cane * Able to use the bathroom independently - No, needed assistance to sit and stand * Continent - Yes * Require assistance bathing- Yes, getting in and out of the shower, used a shower chair * Able to feed self - Yes * Who prepares meals - * How many meals a day eaten - 3 * What percentage of meals eaten daily - 75-100% * Able to clean house/do laundry - No * Transportation - Does not drive anymore. and son provide transportation * Able to shop -Yes * Who manages medications - Patient * Who manages finances - Patient Psychological/Emotional * Confusion present - Yes * Insight and judgment - Not intact * Depression - DAMEON, no per * Suicidal thoughts - DAMEON * Good support system - Yes, family * Patients goals - prolonged survival * Frequent hospitalizations - yes, recently * Desire to keep coming back to the hospital for treatment - yes Symptoms * Pain - CPOT 12/26, Continue Tylenol, No narcotic use d/t AMS * Fatigue - Yes, continue MVI * SOB - No, on RA * Insomnia - NO * N/V - No * Anxiety - DAMEON * Depression - DAMEON * Confusion - Yes, 2/2 TME, needs times for toxins/meds to clear * Agitation - No * Hallucinations - DAMEON * Appetite/weight loss - Decreased appetite 2/2 too lethargic to eat * Dysphagia - No * Constipation - No, LBM 04/17 * Incontinence - Yes, has brief on * Itch - No Plan: Summary/Goals - Met with the patient's . Palliative care services and philosophies explained to the . The patient is encephalopathic and barely opens his eyes. The , Blossom, is distressed because the patient was A &O x 3 upon admission. Education provided regarding TME and multiple myeloma. She is uncomfortable making any plan of care until the patient's mental status improves, which may take some time. She stated their original plan was to clear up the infection, go to rehab for a couple of weeks to get stronger, then go home and continue cancer treatments. However, she will not send the patient to a ECF is he is unable to speak. She believes he could be mistreated and unable to tell anyone. She would like to wait and see if the patient's mentation improves to determine his needs and then make plans to move forward. Recommendations - Continue with supportive care and re-evaluate needs when mentation improves Advanced Directives - None on file, information provided Code Status - Full Code Thank you for this consult Samantha Monroy [facility]- Palliative Care [employer] [id number] Email: [email or web address] Time with Patient: Greater than 30
--- NOTE | 2022-04-18 18:33 | EEG ---
ELECTROENCEPHALOGRAM REPORT DATE OF SERVICE: 04/18/2022 PREAMBLE: This is a 67-year-old male with persistent encephalopathy, left facial twitching. EEG FINDINGS: This is a 21 channel digital EEG recorded with video component, utilizing 10/20 international system with referential and bipolar montages. The recording starts and continues with presence of high amplitude diffuse triphasic waves, which are frontally predominant, seen in bihemispheric region. The background is not clearly seen in the entire study. A lot of myogenic activity was seen. Different stages of sleep were not seen. No definitive epileptiform activity was seen. IMPRESSION: This is an abnormal EEG due to background slowing of moderate to severe degree, with presence of diffuse, persistent triphasic waves seen in bihemispheric region. This is suggestive of generalized cerebral dysfunction as can be seen with toxic metabolic encephalopathy. Clinical correlation and followup EEG recommended. The triphasic waves frequently can be seen with hepatic encephalopathy. Clinical correlation is recommended. No definitive epileptiform activity was seen. MMODL / IJN: [id number] / [facility]
[2022-04-18] MEDS: levETIRAcetam IV 500 MG in SODIUM CHLORIDE 0.9% 100 ML IVPB SCH (21:12)
--- NOTE | 2022-04-19 00:58 | P.PN ---
Subjective Progress Note Date: 04/18/22 Principal diagnosis: Left foot abscess and cellulitis Patient is a 67-year-old male presenting to the hospital with a fever and chills and left foot and leg pain swelling and redness has been diagnosed with a left foot abscess and cellulitis. Patient is status post surgical drainage of the abscess completed on 04/07/2022 with a repeat drainage on 04/17/2022 On today's evaluation that is 04/18/2022, the patient remains to be afebrile, the patient is breathing comfortably on nasal cannula oxygen, the patient seemed to have significant mental status changes and restlessness however no vomiting diarrhea or any other changes reported by nursing staff patient could not provide any history Objective - Vital Signs Vital signs: Vital Signs Temp 97.9 F 04/18/22 12:14 Pulse 94 04/18/22 12:14 Resp 16 04/18/22 12:14 BP 135/87 04/18/22 12:14 Pulse Ox 98 04/18/22 12:14 FiO2 Intake & Output 04/17/22 04/18/22 04/18/22 18:59 06:59 18:59 Intake Total 0 Balance 0 Intake: Oral 0 Other: Voiding Method Diaper Diaper Diaper Incontinent Incontinent Incontinent # Voids 1 3 # Bowel Movements 1 - Exam GENERAL DESCRIPTION: An elderly male lying in bed in no distress RESPIRATORY SYSTEM: Unlabored breathing , decreased breath sounds at bases HEART: S1 S2 regular rate and rhythm , ABDOMEN: Soft , no tenderness EXTREMITIES: Left leg and foot is currently No drainage on the dressing - Labs CBC & Chem 7: 04/18/22 06:52 04/18/22 06:44 Labs: Abnormal Lab Results - Last 24 Hours (Table) 04/18/22 04/18/22 Range/Units 06:44 06:52 WBC 3.97 L (4.50-10.00) X 10*3/uL RBC 3.14 L (4.40-5.60) X 10*6/uL Hgb 9.6 L (13.0-17.0) g/dL Hct 31.2 L (39.6-50.0) % MCV 99.4 H (80.0-97.0) fL MCHC 30.8 L (32.0-37.0) g/dL RDW 23.3 H (11.5-14.5) % Plt Count 93 L (140-440) X 10*3/uL Absolute Nucleated RBC 0.02 H (0.00-0.00) X 10*3/uL Lymphocytes # 0.29 L (0.90-5.00) X 10*3/uL Monocytes # 1.02 H (0.20-1.00) X 10*3/uL NRBC/100 WBC Diff 0.5 H (0.0-0.0) /100 WBCS Creatinine 1.9 H (0.6-1.5) mg/dL Est GFR (CKD-EPI)AfAm 40.6 L (60.0-200.0) Est GFR (CKD-EPI)NonAf 35.0 L (60.0-200.0) BUN/Creatinine Ratio 5.83 L (12.00-20.00) Ratio Microbiology - Last 24 Hours (Table) 04/17/22 15:39 Wound Culture - Preliminary Leg - Left 04/17/22 15:39 Anaerobic Culture - Preliminary Leg - Left Assessment and Plan (1) Cellulitis Current Visit: Yes Status: Acute Priority: High Code(s): L03.90 - CELLULITIS, UNSPECIFIED SNOMED Code(s): 935000516 Plan: 1patient presented to hospital with fever weakness increasing pain and swelling to the left foot in this patient recently treated for cellulitis CT at that time did not show any abscess and there is a question of a necrotizing infection however the patient was evaluated by orthopedic and recommended no surgical intervention patient now clinically has evidence of left foot abscess could be responsible for his recurrent symptoms. 2 CT of the left foot did shows evidence of abscess and the patient is status post drainage of the abscess on 04/07/2022 and the cultures were finalized with Pseudomonas , patient did have another fluctuant area to the right posterior leg which has been drained, and repeat cultures are currently pending 3patient did have significant encephalopathy which could be related to cefepime, cefepime was discontinued yesterday and will wait for her clinical response continue with the Kellysyn and discussed with the admitting physician Time with Patient: Less than 30
[2022-04-19] MEDS: LACTATED RINGERS 1,000 ML IV SCH ×2 (01:17→13:21)
[2022-04-19] MEDS: PIPERACILLIN-TAZOBACTAM 3.375 GM in SODIUM CHLORIDE 0.9% 100 ML IVPB SCH ×3 (04:28→21:59)
[2022-04-19] MEDS: ACYCLOVIR 200 MG CAP PO SCH ×2 (07:31→22:07)
[2022-04-19] MEDS: APIXABAN 5 MG TAB PO SCH (07:31)
[2022-04-19] MEDS: MULTIVITAMINS, THERA 1 EACH TAB PO SCH (07:31)
[2022-04-19] MEDS: levETIRAcetam IV 500 MG in SODIUM CHLORIDE 0.9% 100 ML IVPB SCH ×2 (08:42→22:18)
[2022-04-19 09:23] LABS: African American GFR (CKD) 41.1 (60.0-200.0); Anion Gap 11.9 mmol/L (10.00-18.00); BUN/Creat Ratio 5.89 Ratio (12.00-20.00); Blood Urea Nitrogen 11.2 mg/dL (9.0-27.0); Calcium 8.2 mg/dL (8.7-10.3); Carbon Dioxide 22.1 mmol/L (20.0-27.5); Non-African American GFR(CKD) 35.4 (60.0-200.0); Potassium 3.4 mmol/L (3.5-5.5)
[2022-04-19] MEDS ORDERED: POTASSIUM CHLORIDE ER 20 MEQ TAB.ER PO STA (10:13)
--- NOTE | 2022-04-19 10:15 | P.PN ---
Subjective Patient is seen in follow-up for acute kidney injury and chronic kidney disease. Resting in bed. Not responding to verbal commands. Renal function stable the last few days. Has good urine output. Oral intake is poor. Receiving IV fluids. present at bedside. Vital signs are stable. General: No acute distress. HEENT: Head exam is unremarkable. LUNGS: Breath sounds decreased. HEART: Rate and Rhythm are regular. ABDOMEN: Soft, no distention. EXTREMITITES: No edema. Left lower extremity wrapped. No drainage. Objective - Vital Signs Vital signs: Vital Signs Temp 97.0 F L 04/19/22 05:00 Pulse 90 04/19/22 08:49 Resp 20 04/19/22 05:00 BP 148/79 04/19/22 08:49 Pulse Ox 97 04/19/22 05:00 FiO2 Intake & Output 04/18/22 04/19/22 04/19/22 18:59 06:59 18:59 Intake Total 1000 0 Balance 1000 0 Weight 97.522 kg Intake: Intake, IV Titration 1000 Amount Lactated Ringers 1,000 ml 900 @ 75 mls/hr IV .[id number] [facility] Rx#:[id number] Piperacillin-Tazobactam 3 100 .375 gm In Sodium Chloride 0.9% 100 ml @ 25 mls/hr IVPB Q8H [facility] Rx#: [id number] Oral 0 Other: Voiding Method Diaper Diaper Incontinent Incontinent # Voids 4 1 - Labs CBC & Chem 7: 04/18/22 06:52 04/19/22 06:23 Labs: Abnormal Lab Results - Last 24 Hours (Table) 04/19/22 Range/Units 06:23 Potassium 3.4 L (3.5-5.5) mmol/L Creatinine 1.9 H (0.6-1.5) mg/dL Est GFR (CKD-EPI)AfAm 41.1 L (60.0-200.0) Est GFR (CKD-EPI)NonAf 35.4 L (60.0-200.0) BUN/Creatinine Ratio 5.89 L (12.00-20.00) Ratio Calcium 8.2 L (8.7-10.3) mg/dL Microbiology - Last 24 Hours (Table) 04/17/22 15:39 Wound Culture - Preliminary Leg - Left Assessment and Plan Plan: Assessment: 1. Acute kidney injury secondary to ATN secondary to infection and diuresis. Creatinine stable at 1.9 the last few days. Kidney ultrasound from earlier this month showed no evidence of hydronephrosis. 2. Chronic kidney disease stage IIIB with baseline creatinine near 1.5. Etiology is myeloma kidney. UPC 3.2 g. 3. Left lower extremity cellulitis with possible abscess on antibiotics. S/p incision and drainage 04/07/2022. On antibiotics. 4. Multiple myeloma maintained on chemotherapy outpatient. 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 Computed tomography scan showed multiple compression fractures as well as large destructive lytic lesion at level of T12. 5. Anemia of chronic kidney disease. Mild iron deficiency noted - status post IV iron. Also with thrombocytopenia possibly related to therapy for myeloma. 6. Lower extremity edema. Status post diuresis. Improved. 7. Hypokalemia secondary to poor intake. 8. Hypomagnesemia secondary to diuresis. Replaced. Plan: Maintain IV fluids. Encouraged oral intake. Continue to hold diuretics. 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 Avoid nephrotoxins. Discussed with the patient that he may need kidney biopsy for definitive diagnosis in future. Replace potassium.
--- NOTE | 2022-04-19 10:49 | P.PN ---
Subjective Progress Note Date: 04/19/22 Principal diagnosis: Lower extremity cellulitis and toxo metabolic encephalopathy Patient still remains encephalopathic. He is not taking any of his meds. His mental status has not changed much in the last 4 days, infact could be worsening where the patient is less responsive and more difficult to arouse. Objective - Vital Signs Vital signs: Vital Signs Temp 97.0 F L 04/19/22 05:00 Pulse 90 04/19/22 08:49 Resp 20 04/19/22 05:00 BP 148/79 04/19/22 08:49 Pulse Ox 97 04/19/22 05:00 FiO2 Intake & Output 04/18/22 04/19/22 04/19/22 18:59 06:59 18:59 Intake Total 1000 0 Balance 1000 0 Weight 97.522 kg Intake: Intake, IV Titration 1000 Amount Lactated Ringers 1,000 ml 900 @ 75 mls/hr IV .[id number] [facility] Rx#:[id number] Piperacillin-Tazobactam 3 100 .375 gm In Sodium Chloride 0.9% 100 ml @ 25 mls/hr IVPB Q8H [facility] Rx#: [id number] Oral 0 Other: Voiding Method Diaper Diaper Incontinent Incontinent # Voids 4 1 - Exam General examination -patient somnolent and difficult to arouse HEENT: Bilateral pupils dilated Heart - + S1S2 no murmurs Lungs -diminished breath sounds bilaterally Abdomen soft NT ND +ve BS Extremities -+1 pitting edema bilateral lower extremities 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, patient was not following any commands, minimally responsive Psych -lethargic and somnolent - Labs CBC & Chem 7: 04/18/22 06:52 04/19/22 06:23 Labs: Abnormal Lab Results - Last 24 Hours (Table) 04/19/22 Range/Units 06:23 Potassium 3.4 L (3.5-5.5) mmol/L Creatinine 1.9 H (0.6-1.5) mg/dL Est GFR (CKD-EPI)AfAm 41.1 L (60.0-200.0) Est GFR (CKD-EPI)NonAf 35.4 L (60.0-200.0) BUN/Creatinine Ratio 5.89 L (12.00-20.00) Ratio Calcium 8.2 L (8.7-10.3) mg/dL Microbiology - Last 24 Hours (Table) 04/17/22 15:39 Wound Culture - Preliminary Leg - Left Assessment and Plan Assessment: Left lower extremity cellulitis with abscess - s/p I and D 04/07. Patient had further debridement done on 04/17/2020 - vanco/cefepime discontinued and stared on cefepime by ID. cefepime discontinued and patient started on IV Zosyn on 04/17/2022 as it was thought that the cefepime could be contributing to his encephalopathy - Midline ordered, plan is for 2 weeks of IV abx. - wound care per vascular - ID following - Growing pseudomonas from wound cx. Follow-up repeat wound cultures done on 04/17/2022 Multiple myeloma Pancytopenia - oncology recs - CBC stable, continue to monitor Acute toxic metabolic encephalopathy likely due to opioids and gabapentin -Patient had a repeat CT head done yesterday that was limited due to motion artifact but no acute process was seen - Ammonia level normal - stopped opitates and gabapentin and resume acetaminophen for pain - Neurology following, had brain MRI which was ok, EEG shwoing generalized slowing consistent with toxic metabolic encephalopathy. Neurology also started patient on Keppra -I spoke with the other provider who was taking care of the patient at the beginning of his hospital course who said patient was awake and alert and responding. This is clearly not patient's baseline. -We will obtain an LP and send for cytology as well as other routine labs. Patient has not taken Eliquis in 48 hours so okay to proceed with LP as long as platelets from this morning a greater than 50. -I discussed the case with infectious disease and neurology History of pulmonary embolism -Patient not taking any of his meds. We'll start heparin drip after LP is done Elevated TSH and free T4 -Likely due to acute illness. Will need repeat labs in 6 weeks T 12 fracture, multiple vertebral fractures due to MM, lumbar spine n euroforaminal stenosis, intractable pain on chronic pain - medication changes as above. - Dr. Rubio plan at this time due to infection is LSO brace and pain control. - Dr. Hill no indication for repeat radiation. DUNCAN on CKD 3 due to ATN -Patient currently is stable around 1.8 -Nephrology following Hyponatremia, resolved - On IV fluids per nephro, cr improved, baseline around 1.8 Chronic: Prior pulmonary embolism on Dilantin Dyslipidemia Gait dysfunction Chronic low back pain Coronary artery disease General weakness PT OT -> will likely need rehab DVT prophylaxis: greg Discussed with: patient, family, nursing, Dr. Kern Anticipated discharge: Patient medically stable for discharge tomorrow if he is more awake and alert. Awaiting placement Anticipated discharge place: rehab
[2022-04-19 11:29] LABS: Basophils # (A) 0.01 X 10*3/uL (0.00-0.10); Basophils % (A) 0.3 %; Eosinophils # (A) 0.08 X 10*3/uL (0.04-0.35); Eosinophils % (A) 2.3 %; HCT 27.4 % (39.6-50.0); HGB 8.5 g/dL (13.0-17.0); Immature Grans, Automated 0.3 %; Lymphocytes # (A) 0.28 X 10*3/uL (0.90-5.00); Lymphocytes % (A) 8.2 %; MCH 30.7 pg (27.0-32.0); MCV 98.9 fL (80.0-97.0); Monocytes # (A) 0.86 X 10*3/uL (0.20-1.00); Monocytes % (A) 25.1 %; NRBC Per 100 WBC 0.6 /100 WBCS (0.0-0.0); Neutrophils # (A) 2.19 X 10*3/uL (1.80-7.70); Neutrophils % (A) 63.8 %; Platelet Count 95 X 10*3/uL (140-440); RBC 2.77 X 10*6/uL (4.40-5.60); RDW 23.7 % (11.5-14.5); WBC 3.43 X 10*3/uL (4.50-10.00)
[2022-04-19] MEDS: POTASSIUM CHLORIDE 10 MEQ in WATER FOR INJECTION 1 100ML.BAG IVPB SCH ×4 (11:30→15:43)
--- NOTE | 2022-04-19 13:01 | P.PN ---
Subjective Progress Note Date: 04/19/22 I am continuing to follow-up with patient and I personally evaluated the patient last on 04/12/2022. Please refer to Dr. Rivera's notes for further detais. Patient had two routine EEG's and was negative for seizure or epileptiform discharges. His last EEG on 04/18/2022 was reported as abnormal EEG due to background slowing of moderate to severe degree with presence of diffuse, persistent triphasic waves seen in bihemispheric region. This is suggestive of generalized cerebral dysfunction as can be seen with toxic metabolic encephalopathy. Local correlation of follow-up EEG recommended. Triphasic waves are equally and can be seen with hepatic encephalopathy. Clinical correlation is recommended. No definite epileptiform activity seen. It seems the patient had left facial twitching and that is why patient had repeat EEG yesterday. He was started on Keppra 500mg bid. Patient's is at bedside and she denies any further left facial twitching. Objective - Vital Signs Vital signs: Vital Signs Temp 97.0 F L 04/19/22 05:00 Pulse 90 04/19/22 08:49 Resp 20 04/19/22 08:45 BP 148/79 04/19/22 08:49 Pulse Ox 97 04/19/22 05:00 FiO2 Intake & Output 04/18/22 04/19/22 04/19/22 18:59 06:59 18:59 Intake Total 1000 0 Balance 1000 0 Weight 97.522 kg Intake: Intake, IV Titration 1000 Amount Lactated Ringers 1,000 ml 900 @ 75 mls/hr IV .[id number] [facility] Rx#:[id number] Piperacillin-Tazobactam 3 100 .375 gm In Sodium Chloride 0.9% 100 ml @ 25 mls/hr IVPB Q8H [facility] Rx#: [id number] Oral 0 Other: Voiding Method Diaper Diaper Diaper Incontinent Incontinent Incontinent # Voids 4 1 # Bowel Movements 1 - Exam GENERAL: The patient is lying in bed and does not seem in acute distress. NEUROLOGICAL: Limited since somnolent. Higher mental function: The patient briefly opened his eyes once. But then back to asleep. Cranial nerves: The primary gaze is midline. The pupils are round, equal. NO facial weakness. No facial twitching appreciated. Motor: The strength is limited assessment of individual muscles because of coope rations. But moving all uppers and lowers above gravity and hard to appreciate focality but hard to assess. Some of the work-up during this hospital visit consisted of: Patient has pancytopenia Sodium is 133 and most current is 138. Most recent calcium is 8.5. Ammonia is less than 9. Vitamin B12 is 1029 Folate is more than 20. TSH: 7.510 and free T4: 2.63 Larios virus PCR was not detected that. Hepatitis panel so far is non-reactive. Patient had CT of the head on 04/11/2022 2 reported as age-related atrophy and chronic small vessel ischemic changes without acute intracranial process seen at this time. I personally reviewed the CT of the head and I agree with the impression. Patient also had MRI lumbar spine which is reported as numerous compression fraction throughout the vertebral column is noted on the computed tomography scan. Large disruptive lytic lesion suspected on T12. Cortical step-off posteriorly likely represent initial finding of pathological fracture. This appears to be likely related to metastatic or multiple myeloma. Numerous additional compression fraction most severe at T11 also likely pathological. CT thoracic and lumbar is reported as known multiple myeloma. Diffuse osteopenia. Multiple vertebral body collapse with suspected acute fracture of T12 vertebral body likely secondary due to underlying multiple myeloma lesion. MRI of the brain revealed no acute ischemia. Degenerative and remote ischemic change. Mild right mastoiditis. I personally reviewed MRI of the brain and agree with the findings. EEG 04/14/2022 was abnormal due to background slowing of mild to moderate degree, consistent with encephalopathy. No epileptiform activity was seen. EEG on 04/18/2022 was reported as abnormal EEG due to background slowing of moderate to severe degree with presence of diffuse, persistent triphasic waves seen in bihemispheric region. This is suggestive of generalized cerebral dysfunction as can be seen with toxic metabolic encephalopathy. Local correlation of follow-up EEG recommended. Triphasic waves are equally and can be seen with hepatic encephalopathy. Clinical correlation is recommended. No definite epileptiform activity seen. - Labs CBC & Chem 7: 04/19/22 06:23 04/19/22 06:23 Labs: Abnormal Lab Results - Last 24 Hours (Table) 04/19/22 04/19/22 Range/Units 06:23 06:23 WBC 3.43 L (4.50-10.00) X 10*3/uL RBC 2.77 L (4.40-5.60) X 10*6/uL Hgb 8.5 L (13.0-17.0) g/dL Hct 27.4 L (39.6-50.0) % MCV 98.9 H (80.0-97.0) fL MCHC 31.0 L (32.0-37.0) g/dL RDW 23.7 H (11.5-14.5) % Plt Count 95 L (140-440) X 10*3/uL Absolute Nucleated RBC 0.02 H (0.00-0.00) X 10*3/uL Lymphocytes # 0.28 L (0.90-5.00) X 10*3/uL NRBC/100 WBC Diff 0.6 H (0.0-0.0) /100 WBCS Potassium 3.4 L (3.5-5.5) mmol/L Creatinine 1.9 H (0.6-1.5) mg/dL Est GFR (CKD-EPI)AfAm 41.1 L (60.0-200.0) Est GFR (CKD-EPI)NonAf 35.4 L (60.0-200.0) BUN/Creatinine Ratio 5.89 L (12.00-20.00) Ratio Calcium 8.2 L (8.7-10.3) mg/dL Microbiology - Last 24 Hours (Table) 04/17/22 15:39 Wound Culture - Preliminary Leg - Left Assessment and Plan Assessment: Altered mental status, likely due to metabolic encephalopathy. Patient continues to be encephalopathic. Also encephalopathy due (Abx, and possibly chemotherapy)--mentation worse. MRI Brain is negative for stroke. EEG is negative for seizure. Left facial twitching and EEG reported as no seizure---resolved His myoclonic jerks have improved Multiple myeloma undergoing chemotherapy and has pancytopenia Left lower extremity cellulitis with abscess Acute on chronic kidney insufficiency T12 fracture with multiple vertebral fracture due to multiple myeloma. Lumbar Spondylosis with multiple neuroformainal stenosis. History of pulmonary embolism on eliquis history of coronary artery disease Dyslipidemia Plan: * Gabapentin has been discontinued, therefore myoclonic jerks have improved. * Patient had two routine EEG's and negative for reported seizures. If he continues to be altered will consider repeat EEG down the line and consider lumbar puncture to rule of underlying infection or tumor spreading into CSF system. * Patient also had a repeat CT of the head on 04/18/2022 and she reported as patient was scanned 3 times; there are not cooperating for the scan. Motion limits the exam. No definitive acute intracranial abnormality seen. I personally reviewed the CT of the head and I agree with the report. * If possible try to avoid narcoits, opiates or sedation which can affect patient mentation/neurological examination. * Will defer thryorid management to primary team. * ID is on board, patient on Zosyn. * Orthopedic team is on board * We'll defer the rest of the medical management to primary team. The plan is discussed with his (who is at bedside) and his nurse. Harsha Kern M.D. Neuro-Hospitalist. Time with Patient: Less than 30
--- NOTE | 2022-04-19 14:44 | P.PN ---
Subjective Progress Note Date: 04/18/22 04/18/2022: Patient's son and were present today. Patient came to the hospital because of severe low back pain related to fractures from his myeloma. He could barely walk. Patient's has noticed that he is touching his head more often, like in pain. He moves his arms and legs. Patient has history of myeloma, with fractures and lesions in the back. Patient is severely encephal opathic. He is nonverbal at this time. Patient's mentions that in 2015 when he underwent stem cell transplant for his myeloma, he acted the same way, but was much worse at that time when he was delirious for 2 weeks. He was even on a ventilator at that time. Patient had a EEG performed today, which was severely abnormal with evidence of continuous, persistent triphasic-type waves in bihemispheric region. 04/17/2022: Patient was seen for a follow-up. Patient's was present today. She states patient is not eating, hard to swallow, sometimes chokes. He is moving legs a lot, sometimes stretching, moving arms as well. He is not much communicating. 04/15/2022: Patient was seen for a follow-up. Patient's was present today. She believes that he is very tired, slept a lot. He has 8 little breakfast. Now more awake. PT has worked with him. They asked him to do stand ups 5 times which he did. 04/14/2022: Patient was seen for a follow-up. Patient initially seen by Dr. Harsha Kern. Please refer to his note for details. Patient is a 67-year-old male with altered mental status. Patient has history of multiple myeloma. He had recent left lower extremity cellulitis. Patient's one of the relative was present. Patient is doing better. No new concerns. Objective - Vital Signs Vital signs: Vital Signs Temp 98.2 F 04/19/22 12:45 Pulse 98 04/19/22 12:45 Resp 18 04/19/22 12:45 BP 157/93 04/19/22 12:45 Pulse Ox 98 04/19/22 12:45 FiO2 Intake & Output 04/18/22 04/19/22 04/19/22 18:59 06:59 18:59 Intake Total 1000 0 Balance 1000 0 Weight 97.522 kg Intake: Intake, IV Titration 1000 Amount Lactated Ringers 1,000 ml 900 @ 75 mls/hr IV .[id number] [facility] Rx#:[id number] Piperacillin-Tazobactam 3 100 .375 gm In Sodium Chloride 0.9% 100 ml @ 25 mls/hr IVPB Q8H [facility] Rx#: [id number] Oral 0 Other: Voiding Method Diaper Diaper Diaper Incontinent Incontinent Incontinent # Voids 4 1 # Bowel Movements 1 - Exam On examination patient is encephalopathic, slightly worse than yesterday, as he is not communicating. He is not mumbling. He is not following commands. He moves his arms and legs. He puffs up air and blows out from the left corner of the mouth. He is not holding arms up to check for pronator drift. Tone is equal bilaterally. - Labs CBC & Chem 7: 04/19/22 06:23 04/19/22 06:23 Labs: Abnormal Lab Results - Last 24 Hours (Table) 04/19/22 04/19/22 Range/Units 06:23 06:23 WBC 3.43 L (4.50-10.00) X 10*3/uL RBC 2.77 L (4.40-5.60) X 10*6/uL Hgb 8.5 L (13.0-17.0) g/dL Hct 27.4 L (39.6-50.0) % MCV 98.9 H (80.0-97.0) fL MCHC 31.0 L (32.0-37.0) g/dL RDW 23.7 H (11.5-14.5) % Plt Count 95 L (140-440) X 10*3/uL Absolute Nucleated RBC 0.02 H (0.00-0.00) X 10*3/uL Lymphocytes # 0.28 L (0.90-5.00) X 10*3/uL NRBC/100 WBC Diff 0.6 H (0.0-0.0) /100 WBCS Potassium 3.4 L (3.5-5.5) mmol/L Creatinine 1.9 H (0.6-1.5) mg/dL Est GFR (CKD-EPI)AfAm 41.1 L (60.0-200.0) Est GFR (CKD-EPI)NonAf 35.4 L (60.0-200.0) BUN/Creatinine Ratio 5.89 L (12.00-20.00) Ratio Calcium 8.2 L (8.7-10.3) mg/dL Microbiology - Last 24 Hours (Table) 04/17/22 15:39 Wound Culture - Preliminary Leg - Left Assessment and Plan Assessment: * Altered mental status, likely due to metabolic encephalopathy. Patient nader nues to be encephalopathic. His myoclonic jerks have improved, but mentation has not improved, slightly worse. * Abnormal EEG with persistent triphasic waves in bihemispheric region. * Anemia, worse yesterday, with hemoglobin 7.8 * Cellulitis with abscess, status post debridement. * Multiple myeloma undergoing chemotherapy and has pancytopenia. * Acute on chronic renal insufficiency, stable. * T12 fracture with multiple vertebral fracture due to multiple myeloma. * Lumbar spondylosis with multiple neural foraminal stenosis. * History of pulmonary embolism on Eliquis * History of coronary artery disease * Dyslipidemia Plan: * EEG performed today was abnormal due to background slowing of moderate to severe degree, but doesn't some diffuse, persistent triphasic waves seen in bihemispheric region. This is suggestive of generalized cerebral dysfunction as can be seen with toxic metabolic encephalopathy. Clinical correlation and follow-up EEG recommended. The triphasic waves frequently can be seen with hepatic encephalopathy. Clinical correlation recommended. No definitive epileptiform activity seen. * CT head performed today showed no acute process. I personally reviewed CT head, and agree with the findings. * Because of severely abnormal EEG, patient started on Keppra 500 mg twice a day. * May need to repeat EEG over the weekend if mentation does not improve. * EEG 04/14/2022 was abnormal due to background slowing of mild to moderate degree, consistent with encephalopathy. No epileptiform activity was seen. * MRI of the brain revealed no acute ischemia. Degenerative and remote ischemic change. Mild right mastoiditis. I personally reviewed MRI of the brain and agree with the findings. * Gabapentin has been discontinued, therefore myoclonic jerks have improved. Patient may be withdrawing from gabapentin. May consider resuming gabapentin at lower dose perhaps 100 mg twice a day. * If possible try to avoid narcoits, opiates or sedation which can affect patient mentation/neurological examination. * ID is on board, patient on Zosyn. * Orthopedic team is on board * We'll defer the rest of the medical management to primary team. * Dr. Harsha Kern Will resume neurology service from the morning.
--- NOTE | 2022-04-19 15:13 | P.PN ---
Subjective Progress Note Date: 04/19/22 Principal diagnosis: Abscess, MM, immunocompromised Continues to be agitated and nonverbal. Objective - Vital Signs Vital signs: Vital Signs Temp 97.0 F L 04/19/22 05:00 Pulse 90 04/19/22 08:49 Resp 20 04/19/22 08:45 BP 148/79 04/19/22 08:49 Pulse Ox 97 04/19/22 05:00 FiO2 Intake & Output 04/18/22 04/19/22 04/19/22 18:59 06:59 18:59 Intake Total 1000 0 Balance 1000 0 Weight 97.522 kg Intake: Intake, IV Titration 1000 Amount Lactated Ringers 1,000 ml 900 @ 75 mls/hr IV .[id number] [facility] Rx#:[id number] Piperacillin-Tazobactam 3 100 .375 gm In Sodium Chloride 0.9% 100 ml @ 25 mls/hr IVPB Q8H [facility] Rx#: [id number] Oral 0 Other: Voiding Method Diaper Diaper Diaper Incontinent Incontinent Incontinent # Voids 4 1 # Bowel Movements 1 - Exam Gen.: No acute distress. HEENT: No conjunctival pallor or scleral icterus. Mucosa moist. Neck: Supple Lungs: No respiratory distress. Heart: Regular rate. Abdomen: Soft. Neuro: Moving spontaneously but not following commands and nonverbal. Psych: Appropriate affect. Skin: No jaundice. - Labs CBC & Chem 7: 04/19/22 06:23 04/19/22 06:23 Labs: Abnormal Lab Results - Last 24 Hours (Table) 04/19/22 04/19/22 Range/Units 06:23 06:23 WBC 3.43 L (4.50-10.00) X 10*3/uL RBC 2.77 L (4.40-5.60) X 10*6/uL Hgb 8.5 L (13.0-17.0) g/dL Hct 27.4 L (39.6-50.0) % MCV 98.9 H (80.0-97.0) fL MCHC 31.0 L (32.0-37.0) g/dL RDW 23.7 H (11.5-14.5) % Plt Count 95 L (140-440) X 10*3/uL Absolute Nucleated RBC 0.02 H (0.00-0.00) X 10*3/uL Lymphocytes # 0.28 L (0.90-5.00) X 10*3/uL NRBC/100 WBC Diff 0.6 H (0.0-0.0) /100 WBCS Potassium 3.4 L (3.5-5.5) mmol/L Creatinine 1.9 H (0.6-1.5) mg/dL Est GFR (CKD-EPI)AfAm 41.1 L (60.0-200.0) Est GFR (CKD-EPI)NonAf 35.4 L (60.0-200.0) BUN/Creatinine Ratio 5.89 L (12.00-20.00) Ratio Calcium 8.2 L (8.7-10.3) mg/dL Microbiology - Last 24 Hours (Table) 04/17/22 15:39 Wound Culture - Preliminary Leg - Left Assessment and Plan Assessment: 1. LLE abcess s/p I&D and on antibiotics 2. MM, on pomalyst, kyprolis, and dex 3. Pancytopenia due to MM and cancer treatment 4. Encephalopathy Plan: Mr. Paul is a 59-year-old gentleman with a history of multiple myeloma, most recently on Kyprolis, Pomalyst and Dexamethasone, who is here for left lower extremity abscess status post drainage. His myeloma treatment has been on hold for the past month or so due to left lower extremity infection that has not quite cleared and recurrent hospitalizations for this. He is currently on antibiotics as per ID. Course complicated by encephalopathy, felt to be metabolic encephalopathy, likely drug-induced. Discussed his case with neurology. He was started on Keppra due to some changes on most recent EEG however it is not felt that he is having true seizures. From his myeloma standpoint continue to hold myeloma treatment due to infection and acute illness. If he is discharged to subacute rehab we'll hold treatment until he is reevaluated by us in the office. Continue supportive care. He has received IVIG for hypogammaglobulinemia, receiving IgG levels above 700. Supportive transfusion as needed for hemoglobin less than 7 and platelets less than 15. Discussed with patient's at bedside and she is agreeable to the plan. All of her questions were answered.
[2022-04-20] MEDS ORDERED: ACETAMINOPHEN IV (For NPO) 1,000 MG in EMPTY BAG 1 BAG IVPB ONE (05:19)
[2022-04-20] MEDS: PIPERACILLIN-TAZOBACTAM 3.375 GM in SODIUM CHLORIDE 0.9% 100 ML IVPB SCH ×3 (06:06→19:12)
[2022-04-20] MEDS: LACTATED RINGERS 1,000 ML IV SCH ×2 (07:32→07:42)
[2022-04-20] MEDS: ACYCLOVIR 200 MG CAP PO SCH ×2 (07:42→19:08)
[2022-04-20] MEDS: MULTIVITAMINS, THERA 1 EACH TAB PO SCH (07:42)
--- NOTE | 2022-04-20 09:55 | P.PN ---
Subjective Patient is seen in follow-up for acute kidney injury and chronic kidney disease. Resting in bed. Renal function stable the last few days. Has good urine output. Oral intake is poor. Receiving IV fluids. present at bedside. Vital signs are stable. General: No acute distress. HEENT: Head exam is unremarkable. LUNGS: Breath sounds decreased. HEART: Rate and Rhythm are regular. ABDOMEN: Soft, no distention. EXTREMITITES: No edema. Left lower extremity wrapped. No drainage. Objective - Vital Signs Vital signs: Vital Signs Temp 98.2 F 04/20/22 05:06 Pulse 96 04/20/22 05:06 Resp 20 04/20/22 05:06 BP 150/92 04/20/22 05:06 Pulse Ox 97 04/20/22 05:06 FiO2 Intake & Output 04/19/22 04/20/22 04/20/22 18:59 06:59 18:59 Intake Total 0 0 Balance 0 0 Intake: Oral 0 0 Other: Voiding Method Diaper Diaper Incontinent Incontinent # Voids 3 6 # Bowel Movements 1 0 - Labs CBC & Chem 7: 04/19/22 06:23 04/19/22 06:23 Labs: Abnormal Lab Results - Last 24 Hours (Table) 04/19/22 Range/Units 06:23 WBC 3.43 L (4.50-10.00) X 10*3/uL RBC 2.77 L (4.40-5.60) X 10*6/uL Hgb 8.5 L (13.0-17.0) g/dL Hct 27.4 L (39.6-50.0) % MCV 98.9 H (80.0-97.0) fL MCHC 31.0 L (32.0-37.0) g/dL RDW 23.7 H (11.5-14.5) % Plt Count 95 L (140-440) X 10*3/uL Absolute Nucleated RBC 0.02 H (0.00-0.00) X 10*3/uL Lymphocytes # 0.28 L (0.90-5.00) X 10*3/uL NRBC/100 WBC Diff 0.6 H (0.0-0.0) /100 WBCS Microbiology - Last 24 Hours (Table) 04/17/22 15:39 Anaerobic Culture - Preliminary Leg - Left 04/17/22 15:39 Wound Culture - Preliminary Leg - Left Pseudomonas aeruginosa Assessment and Plan Plan: Assessment: 1. Acute kidney injury secondary to ATN secondary to infection and diuresis. Creatinine stable at 1.9 the last few days. Kidney ultrasound from earlier this month showed no evidence of hydronephrosis. 2. Chronic kidney disease stage IIIB with baseline creatinine near 1.5. Etiology is myeloma kidney. UPC 3.2 g. 3. Left lower extremity cellulitis with possible abscess on antibiotics. S/p incision and drainage 04/07/2022. On antibiotics. 4. Multiple myeloma maintained on chemotherapy outpatient. 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 Computed tomography scan showed multiple compression fractures as well as large destructive lytic lesion at level of T12. 5. Anemia of chronic kidney disease. Mild iron deficiency noted - status post IV iron. Also with thrombocytopenia possibly related to therapy for myeloma. 6. Lower extremity edema. Status post diuresis. Improved. 7. Hypokalemia secondary to poor intake. Replaced. 8. Hypomagnesemia secondary to diuresis. Replaced. Plan: Maintain IV fluids - decrease rate to 60 mL an hour. Encouraged oral intake. Continue to hold diuretics. 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 Avoid nephrotoxins. Discussed with the patient that he may need kidney biopsy for definitive d iagnosis in future. Potassium replaced.
[2022-04-20 10:08] LABS: Basophils # (A) 0.02 X 10*3/uL (0.00-0.10); Basophils % (A) 0.5 %; Eosinophils # (A) 0.05 X 10*3/uL (0.04-0.35); Eosinophils % (A) 1.3 %; HCT 26.6 % (39.6-50.0); Immature Grans, Automated 0 %; Lymphocytes # (A) 0.36 X 10*3/uL (0.90-5.00); MCHC 30.1 g/dL (32.0-37.0); MCV 99.6 fL (80.0-97.0); Mean Platelet Volume 13.4 fL (9.5-12.2); Monocytes % (A) 25.1 %; NRBC Per 100 WBC 0 /100 WBCS (0.0-0.0); Neutrophils # (A) 2.55 X 10*3/uL (1.80-7.70); Neutrophils % (A) 64.1 %; Platelet Count 99 X 10*3/uL (140-440); RBC 2.67 X 10*6/uL (4.40-5.60); RDW 23.6 % (11.5-14.5); WBC 3.98 X 10*3/uL (4.50-10.00)
[2022-04-20 10:36] LABS: African American GFR (CKD) 42.1 (60.0-200.0); Anion Gap 12.9 mmol/L (10.00-18.00); BUN/Creat Ratio 5.75 Ratio (12.00-20.00); Blood Urea Nitrogen 10.7 mg/dL (9.0-27.0); Carbon Dioxide 21.2 mmol/L (20.0-27.5); Non-African American GFR(CKD) 36.4 (60.0-200.0); Potassium 3.8 mmol/L (3.5-5.5)
[2022-04-20] MEDS: levETIRAcetam IV 500 MG in SODIUM CHLORIDE 0.9% 100 ML IVPB SCH (10:36)
[2022-04-20] MEDS ORDERED: levETIRAcetam IV 1,000 MG in SALINE 1 100ML.BAG IVPB STA (11:49)
--- NOTE | 2022-04-20 11:56 | P.PN ---
Progress Note - Text Progress Note Date: 04/20/22 (7950) 67-year-old male for lumbar puncture. Ordered foraltered mental status. Coagulopathies: INR normal this admission. Platelets 99 and trending up. Last dose aliquots was 04/08/2022. No other anticoagulation Medications:Nothing significant. Consent obtained and confirmed consent per Timeout performed Sterile protocol was used throughout procedure. L3 4 was identified and patient lying in right lateral decubitus. Chlorhexidine 2 was used to clean the hilda ent's back. Lidocaine 1% 5 mL was used as local and was infiltrated. Spinal needle 20-gauge 3-1/2 inches was used in 2 attempt. CSF was obtained. No heme. Specimens collected 4-2 mL each. Needle was withdrawn and Band-Aid applied. Patient tolerated procedure well without complication. Patient and specimens left and care of nurse
[2022-04-20 12:36] LABS: Glucose,CSF 45 mg/dL (40-70); Total Protein,CSF 91 mg/dL (12-60)
--- NOTE | 2022-04-20 12:58 | P.PN ---
Subjective Progress Note Date: 04/20/22 Principal diagnosis: Lower extremity cellulitis and toxo metabolic encephalopathy Patient this morning would open his eyes to gentle sternal rub. However he is not following any commands. Patient's at bedside and she is concerned about his snoring as well as making gurgling sounds Objective - Vital Signs Vital signs: Vital Signs Temp 98.2 F 04/20/22 05:06 Pulse 96 04/20/22 05:06 Resp 20 04/20/22 05:06 BP 150/92 04/20/22 05:06 Pulse Ox 97 04/20/22 05:06 FiO2 Intake & Output 04/19/22 04/20/22 04/20/22 18:59 06:59 18:59 Intake Total 0 0 Balance 0 0 Intake: Oral 0 0 Other: Voiding Method Diaper Diaper Incontinent Incontinent # Voids 3 6 # Bowel Movements 1 0 - Exam General examination -patient somnolent and snoring. 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, patient was not following any commands, minimally responsive Psych -lethargic and somnolent - Labs CBC & Chem 7: 04/20/22 04:25 04/20/22 04:25 Labs: Abnormal Lab Results - Last 24 Hours (Table) 04/20/22 04/20/22 04/20/22 Range/Units 04:25 04:25 11:45 WBC 3.98 L (4.50-10.00) X 10*3/uL RBC 2.67 L (4.40-5.60) X 10*6/uL Hgb 8.0 L (13.0-17.0) g/dL Hct 26.6 L (39.6-50.0) % MCV 99.6 H (80.0-97.0) fL MCHC 30.1 L (32.0-37.0) g/dL RDW 23.6 H (11.5-14.5) % Plt Count 99 L (140-440) X 10*3/uL MPV 13.4 H (9.5-12.2) fL Lymphocytes # 0.36 L (0.90-5.00) X 10*3/uL Chloride 111 H (96-109) mmol/L Creatinine 1.9 H (0.6-1.5) mg/dL Est GFR (CKD-EPI)AfAm 42.1 L (60.0-200.0) Est GFR (CKD-EPI)NonAf 36.4 L (60.0-200.0) BUN/Creatinine Ratio 5.75 L (12.00-20.00) Ratio Calcium 8.0 L (8.7-10.3) mg/dL CSF Total Protein 91 H (12-60) mg/dL Microbiology - Last 24 Hours (Table) 04/17/22 15:39 Anaerobic Culture - Preliminary Leg - Left 04/17/22 15:39 Wound Culture - Preliminary Leg - Left Pseudomonas aeruginosa Assessment and Plan Assessment: Left lower extremity cellulitis with abscess - s/p I and D 04/07. Patient had further debridement done on 04/17/2020 - vanco/cefepime discontinued and stared on cefepime by ID. cefepime discontinued and patient started on IV Zosyn on 04/17/2022 as it was thought that the cefepime could be contributing to his encephalopathy - s/p midline as patient will likely need prolonged antibiotics - wound care per vascular - ID following - Wound culture from initial debridement grew Pseudomonas. repeat wound cultures done on 04/17/2022 that also grew Pseudomonas Multiple myeloma Pancytopenia - oncology recs - CBC stable, continue to monitor Acute toxic metabolic encephalopathy likely due to opioids and gabapentin versus infection above versus other etiology - Ammonia level normal - stopped opitates and gabapentin and resume acetaminophen for pain - Neurology following, had brain MRI which was ok, EEG shwoing generalized slowing consistent with toxic metabolic encephalopathy. Neurology also started patient on Keppra -I spoke with the other provider who was taking care of the patient at the beginning of his hospital course who said patient was awake and alert and responding. This is clearly not patient's baseline. -S/p LP on 04/20/2022 sent for cytology as well as other routine labs. -I discussed the case with infectious disease and neurology History of pulmonary embolism -Patient not taking Eliquis due encephalopathy. -Will start Lovenox tonight. Elevated TSH and free T4 -Likely due to acute illness. Will need repeat labs in 6 weeks T 12 fracture, multiple vertebral fractures due to MM, lumbar spine neuroforaminal stenosis, intractable pain on chronic pain - medication changes as above. - Dr. Rubio plan at this time due to infection is LSO brace and pain control. - Dr. Hill no indication for repeat radiation. DUNCAN on CKD 3 due to ATN -Patient currently is stable around 1.8 -Nephrology following Hyponatremia, resolved - On IV fluids per nephro, cr improved, baseline around 1.8 Chronic: Prior pulmonary embolism on Eliquis Dyslipidemia Gait dysfunction Chronic low back pain Coronary artery disease General weakness PT OT -> will likely need rehab DVT prophylaxis: eliquis Discussed with: patient, family, nursing Anticipated discharge: Depending on clinical course Anticipated discharge place: rehab
[2022-04-20 13:37] LABS: Appearance,CSF Clear; CSF Tube Number 3; Nucleated Cells, CSF 1 u/L (0-5); Red Blood Cell,CSF 2 u/L (0-10)
--- NOTE | 2022-04-20 13:50 | P.PN ---
Subjective Progress Note Date: 04/20/22 The patient is seen at bedside and per his she feels he is a bit better as in he would open his eyes but otherwise continues to be somnolent. Today he had lumbar puncture. Objective - Vital Signs Vital signs: Vital Signs Temp 97.7 F 04/20/22 12:25 Pulse 93 04/20/22 12:25 Resp 18 04/20/22 12:25 BP 137/91 04/20/22 12:25 Pulse Ox 98 04/20/22 12:25 FiO2 Intake & Output 04/19/22 04/20/22 04/20/22 18:59 06:59 18:59 Intake Total 0 0 Balance 0 0 Intake: Oral 0 0 Other: Voiding Method Diaper Diaper Incontinent Incontinent # Voids 3 6 # Bowel Movements 1 0 - Exam GENERAL: The patient is lying in bed and does not seem in acute distress. NEUROLOGICAL: Limited since somnolent. Higher mental function: The patient briefly open his eyes. But then back to asleep. Cranial nerves: The primary gaze is midline. The pupils are round, equal. No facial weakness. No facial twitching appreciated. Motor: The strength is limited assessment of individual muscles because of cooperations. Some of the work-up during this hospital visit consisted of: Patient has pancytopenia Sodium is 133 and most current is 138. Most recent calcium is 8.5. Ammonia is less than 9. Vitamin B12 is 1029 Folate is more than 20. TSH: 7.510 and free T4: 2.63 Larios virus PCR was not detected that. Hepatitis panel so far is non-reactive. Patient had CT of the head on 04/11/2022 2 reported as age-related atrophy and chronic small vessel ischemic changes without acute intracranial process seen at this time. I personally reviewed the CT of the head and I agree with the impression. Patient also had MRI lumbar spine which is reported as numerous compression fraction throughout the vertebral column is noted on the computed tomography scan. Large disruptive lytic lesion suspected on T12. Cortical step-off posteriorly likely represent initial finding of pathological fracture. This appears to be likely related to metastatic or multiple myeloma. Numerous additional compression fraction most severe at T11 also likely pathological. CT thoracic and lumbar is reported as known multiple myeloma. Diffuse osteopenia. Multiple vertebral body collapse with suspected acute fracture of T12 vertebral body likely secondary due to underlying multiple myeloma lesion. MRI of the brain revealed no acute ischemia. Degenerative and remote ischemic change. Mild right mastoiditis. I personally reviewed MRI of the brain and agree with the findings. EEG 04/14/2022 was abnormal due to background slowing of mild to moderate degree, consistent with encephalopathy. No epileptiform activity was seen. EEG on 04/18/2022 was reported as abnormal EEG due to background slowing of moderate to severe degree with presence of diffuse, persistent triphasic waves seen in bihemispheric region. This is suggestive of generalized cerebral dysfunction as can be seen with toxic metabolic encephalopathy. Local correlation of follow-up EEG recommended. Triphasic waves are equally and can be seen with hepatic encephalopathy. Clinical correlation is recommended. No definite epileptiform activity seen. CSF: clear, colorless, 2 rbc, 1 nucleated cells, glucose is 45, protein is 9 (normal protein is 12-60). - Labs CBC & Chem 7: 04/20/22 04:25 04/20/22 04:25 Labs: Abnormal Lab Results - Last 24 Hours (Table) 04/20/22 04/20/22 04/20/22 Range/Units 04:25 04:25 11:45 WBC 3.98 L (4.50-10.00) X 10*3/uL RBC 2.67 L (4.40-5.60) X 10*6/uL Hgb 8.0 L (13.0-17.0) g/dL Hct 26.6 L (39.6-50.0) % MCV 99.6 H (80.0-97.0) fL MCHC 30.1 L (32.0-37.0) g/dL RDW 23.6 H (11.5-14.5) % Plt Count 99 L (140-440) X 10*3/uL MPV 13.4 H (9.5-12.2) fL Lymphocytes # 0.36 L (0.90-5.00) X 10*3/uL Chloride 111 H (96-109) mmol/L Creatinine 1.9 H (0.6-1.5) mg/dL Est GFR (CKD-EPI)AfAm 42.1 L (60.0-200.0) Est GFR (CKD-EPI)NonAf 36.4 L (60.0-200.0) BUN/Creatinine Ratio 5.75 L (12.00-20.00) Ratio Calcium 8.0 L (8.7-10.3) mg/dL CSF Total Protein 91 H (12-60) mg/dL Microbiology - Last 24 Hours (Table) 04/20/22 11:45 CSF Gram Stain - Preliminary Cerebral Spinal Fluid CSF Culture - Preliminary 04/17/22 15:39 Anaerobic Culture - Preliminary Leg - Left 04/17/22 15:39 Wound Culture - Preliminary Leg - Left Pseudomonas aeruginosa Assessment and Plan Assessment: Encpehalopathy of unknown etiology. His encephalopathy could be component of metabolic encehalopathy and possibly chemotherapy- mentation is worse. MRI Brain is negative for stroke. 2 EEG is negative for seizure. CSF is slightly elevated for protein but otherwise 1 nucleated cell Left facial twitching and EEG reported as no seizure---resolved His myoclonic jerks have improved Multiple myeloma undergoing chemotherapy and has pancytopenia Left lower extremity cellulitis with abscess Acute on chronic kidney insufficiency T12 fracture with multiple vertebral fracture due to multiple myeloma. Lumbar Spondylosis with multiple neuroformainal stenosis. History of pulmonary embolism on eliquis history of coronary artery disease Dyslipidemia Plan: * EEG performed on 04/18/2022 was abnormal due to background slowing of moderate to severe degree, but doesn't some diffuse, persistent triphasic waves seen in bihemispheric region. This is suggestive of generalized cerebral dysfunction as can be seen with toxic metabolic encephalopathy. Clinical correlation and follow-up EEG recommended. The triphasic waves frequently can be seen with hepatic encephalopathy. Clinical correlation recommended. No definitive epileptiform activity seen. * CT head performed 04/18/22 showed no acute process. * Because of severely abnormal EEG, patient started on Keppra 500 mg twice a day by Dr. Rivera on 04/18/2022. Since the patient continues to be encephalopathic, I increased Keppra to 750mg bid and gave loading of Keppra 1gm once. * MRI of the brain revealed no acute ischemia. Degenerative and remote ischemic change. Mild right mastoiditis. I personally reviewed MRI of the brain and agree with the findings. * Gabapentin has been discontinued, therefore myoclonic jerks have improved. It was felt possibly by my colleague that could be withdrawing from Gabapentin (I feel unlikely). Low dose Gabapentin 100mg bid is started (but he currently too encephalopathic to take medications PO). * If possible try to avoid narcoits, opiates or sedation which can affect patient mentation/neurological examination. * ID is on board, patient on Zosyn. * Orthopedic team is on board * We'll defer the rest of the medical management to primary team. 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 Since he continues to be altered and to rule out any seizure not detected on routine EEG. So far, a ll work-up are negative. The plan is discussed with his (who is at bedside) and primary attending. Harsha Kern M.D. Neuro-Hospitalist. Time with Patient: Less than 30
--- NOTE | 2022-04-20 14:03 | XR ---
EXAMINATION TYPE: XR chest 1V portable DATE OF EXAM: 04/20/2022 1:57 PM COMPARISON: Chest radiographs from 04/16/2022 TECHNIQUE: XR chest 1V portable Portable AP radiograph of the chest.. CLINICAL INDICATION:Male, 67 years old with history of shortness of breath; FINDINGS: Lungs/Pleura: There is no evidence of pleural effusion, focal consolidation, or pneumothorax. Pulmonary vascularity: Unremarkable. Heart/mediastinum: Cardiomediastinal silhouette is unremarkable. Musculoskeletal: No acute osseous pathology. IMPRESSION: No acute cardiopulmonary disease/process.
[2022-04-20] MEDS: GABAPENTIN 100 MG CAP PO SCH ×2 (14:07→19:08)
--- NOTE | 2022-04-20 15:17 | P.DS ---
Providers Date of admission: 04/06/22 02:41 Expected date of discharge: 04/20/22 Attending physician: Tato Devlin MD Consults: 04/06/22 01:00 Consult Physician Urgent Consulting Provider: Francois Miranda Consult Reason/Comments: le cellulitis Do you want consulting provider notified?: Yes 04/06/22 03:10 Consult Physician Urgent Consulting Provider: Luis A Mcgowan Consult Reason/Comments: Myeloma Do you want consulting provider notified?: Yes 04/06/22 09:23 Consult Physician Routine Consulting Provider: Sienna Aguilar Consult Reason/Comments: DUNCAN Do you want consulting provider notified?: Yes 04/09/22 08:45 Consult Physician Routine Consulting Provider: José Rubio Consult Reason/Comments: evaluate to see if pt candidate for kyphoplasty Do you want consulting provider notified?: Yes 04/10/22 12:08 Consult Physician Routine Consulting Provider: Gagan Hill Consult Reason/Comments: radiation? Do you want consulting provider notified?: Yes 04/12/22 09:25 Consult Physician Routine Consulting Provider: Harsha Kern Consult Reason/Comments: myoclonic jerking Do you want consulting provider notified?: Yes 04/17/22 11:17 Consult Physician Routine Consulting Provider: Toñito Ryder Consult Reason/Comments: possible new abscess left posterior calf Do you want consulting provider notified?: Already Contacted 04/17/22 14:50 Consult to Palliative Care Routine Consulting Provider: Samantha Monroy Consult Reason/Comments: establish goal of care Do you want consulting provider notified?: Yes 04/19/22 10:31 Consult to Anesthesia Routine Consulting Provider: Anesthesia,Services Consult Reason/Comments: AMS. Send for cytology and other routine labs. No AC in 48h Primary care physician: [facility] Course: Discharge Diagnosis: Left lower extremity cellulitis with abscess Multiple myeloma Pancytopenia due to chemotherapy Acute toxo metabolic encephalopathy with unclear etiology History of pulmonary embolism Elevated TSH and free T4 T 12 fracture, multiple vertebral fractures due to MM, lumbar spine neuroforaminal stenosis, intractable pain on chronic pain DUNCAN on CK D stage III due to ATN Hyponatremia: Resolved History of pulmonary embolism: was on Eliquis at home Dyslipidemia Gait dysfunction Coronary artery disease Hospital Course: Patient is a 67-year-old male with a past medical history of multiple myeloma and pulmonary embolism on Eliquis who presented with persistent left lower extremity cellulitis with multiple failures of outpatient therapy. Patient on admission was awake and alert and 3 and responding to questions appropriately and also able to follow complex commands. Patient was started on broad-spectrum antibiotics. Patient had a computed tomography scan of his left lower extremity that shows subcutaneous edema as well as focal area of fluid on the dorsum of the midfoot. Vascular surgery was consulted and they did debridement and drainage of the abscess on 04/07/2022. Wound cultures from the abscess grew Pseudomonas that was pansensitive so ID narrow down the antibiotics to IV cefepime. Patient had further debridement of his lower leg on 04/17/2022. The wound cultures again grew pseudomonas that was pansensitive. Infectious disease changed antibiotics to IV Zosyn. Unfortunately the patient had a complicated hospital course. Patient's mental status was worsening. It was thought that it was likely due to the pain meds versus toxic metabolic encephalopathy. All patient's sedative medicines were discontinued. Neurology was on board. Patient had MRI that was unremarkable. Patient also had 2 EEGs that were negative for epileptiform activity. Patient did have some twitching of his face as well as myoclonic jerking of his leg which neurology said is likely from toxic metabolic encephalopathy however neurology still started the patient on Keppra. Patient had an LP done on 04/20/2022 that only showed 1 PMN so unlikely to have meningitis. Cultures and cytology from the LP were sent. Since there is no improvement in patient's mental status neurology recommended high level of care for further workup as well as for a prolonged EEG. Patient's family is amenable to the transfer. Patient accepted to [facility] on 04/20/[facility]. Of note patient also had acute kidney injury. Nephrology has been following the patient. His creatinine is around 1.8 and stable. Patient had also been complaining of back pain so had computed tomography scan of his spine which showed multiple vertebral fractures due to multiple myeloma as well as lumbar spine foraminal stenosis. Orthopedic surgery recommended LSO at this time. Oncology also following the patient. Oncology recommended to hold his patrizia motherapy until his infection is fully treated. Please see my progress note from today for physical exam A total of [45] minutes of time were spent preparing this complex discharge summary . Patient Condition at Discharge: Poor Plan - Discharge Summary Discharge Rx Participant: Yes New Discharge Prescriptions: No Action Famotidine [Pepcid] 20 mg PO DAILY PRN PRN Reason: Heartburn Gabapentin [Neurontin] 300 mg PO TID dexAMETHasone 8 mg PO DIRECTED Acyclovir 400 mg PO BID Pomalyst 3mg 3 mg PO DIRECTED Aspirin 81 mg PO DAILY #30 chewable Apixaban [Eliquis] 5 mg PO BID Nitroglycerin Sl Tabs [Nitrostat] 0.4 mg SUBLINGUAL Q5M PRN PRN Reason: Chest Pain Potassium Chloride ER [K-Dur 20] 20 meq PO DAILY Calcium Carbonate/Vitamin D3 [Calcium 600-Vit D3 20 Mcg (800 Iu)] 1 cap PO DAILY Acetaminophen Tab [Tylenol] 650 mg PO Q6HR PRN tab PRN Reason: Mild Pain Or Fever > 100.5 Furosemide [Lasix] 20 mg PO DAILY PRN PRN Reason: Edema Multivitamins, Thera [Multivitamin (formulary)] 1 tab PO DAILY oxyCODONE HCL [oxyCODONE HCL (IR)] 10 - 20 mg PO Q4H PRN PRN Reason: Pain Cephalexin [Keflex] 500 mg PO Q6HR 1 Days #40 cap Terbinafine 1% Cream [LamISIL] 1 applic TOPICAL TID 90 Days #15 gm Discharge Medication List Famotidine [Pepcid] 20 mg PO DAILY PRN 04/15/19 [History] Gabapentin [Neurontin] 300 mg PO TID 04/15/19 [History] dexAMETHasone 8 mg PO DIRECTED 04/15/19 [History] Acyclovir 400 mg PO BID 08/24/19 [History] Pomalyst 3mg 3 mg PO DIRECTED 08/24/19 [History] Aspirin 81 mg PO DAILY #30 chewable 08/26/19 [Rx] Apixaban [Eliquis] 5 mg PO BID 10/03/19 [History] Nitroglycerin Sl Tabs [Nitrostat] 0.4 mg SUBLINGUAL Q5M PRN 10/03/19 [History] Calcium Carbonate/Vitamin D3 [Calcium 600-Vit D3 20 Mcg (800 Iu)] 1 cap PO DAILY 01/10/20 [History] Potassium Chloride ER [K-Dur 20] 20 meq PO DAILY 01/10/20 [History] Furosemide [Lasix] 20 mg PO DAILY PRN 05/31/21 [History] Acetaminophen Tab [Tylenol] 650 mg PO Q6HR PRN tab 06/03/21 [Rx] Multivitamins, Thera [Multivitamin (formulary)] 1 tab PO DAILY 12/16/21 [History] oxyCODONE HCL [oxyCODONE HCL (IR)] 10 - 20 mg PO Q4H PRN 03/25/22 [History] Cephalexin [Keflex] 500 mg PO Q6HR 1 Days #40 cap 04/03/22 [Rx] Terbinafine 1% Cream [LamISIL] 1 applic TOPICAL TID 90 Days #15 gm 04/03/22 [Rx] Follow up Appointment(s)/Referral(s): Elkin Pierson MD [Primary Care Provider] - 1-2 days [facility] [NON-STAFF] - 1 Week José Rubio DO [Doctor of Osteopathic Medicine] - 2 Weeks [facility] Visiting Nurse, [NON-STAFF] - 1 Week Jeff Avalos [NON-STAFF] - As Needed (Supplier of TLSO back brace)
[2022-04-20] MEDS: ENOXAPARIN 100 MG/ML SYRINGE SQ SCH (20:43)
[2022-04-20] MEDS: levETIRAcetam IV 750 MG in SODIUM CHLORIDE 0.9% 100 ML IVPB SCH (20:44)
[2022-04-21 00:05] LABS: Glucose,Whole Blood 98 mg/dL (70-110)
[2022-04-21 00:28] LABS: Anisocytosis Moderate; HCT 31.9 % (39.0-53.0); HGB 9.9 gm/dL (13.0-17.5); Hypochromasia Marked; MCH 32.3 pg (25.0-35.0); Macrocytosis Marked; Mean Platelet Volume 11.1; Poikilocytosis Slight; RBC 3.06 m/uL (4.30-5.90); RDW 21.4 % (11.5-15.5); WBC 6.1 k/uL (3.8-10.6)
[2022-04-21 00:29] LABS: ABG Base Excess -3.8 mmol/L; ABG HCO3 22 mmol/L (21-25); ABG Oxygen Saturation 99.2 % (94-97); ABG PCO2 39 mmHg (35-45); ABG PH 7.36 (7.35-7.45); ABG PO2 122 mmHg (83-108); ABG TCO2 23 mmol/L (19-24); Allen Test Performed? Yes
[2022-04-21 00:29] LABS: MCV 104.2 fL (80.0-100.0)
[2022-04-21 00:30] LABS: Platelet Count 150 k/uL (150-450)
[2022-04-21 00:43] LABS: African American GFR (CKD) 41 (>60 ml/min/1.73 sqM); Anion Gap 9 mmol/L; Blood Urea Nitrogen 11 mg/dL (9-20); Calcium 7.9 mg/dL (8.4-10.2); Carbon Dioxide 20 mmol/L (22-30); Chloride 113 mmol/L (98-107); Glucose 102 mg/dL (74-99); Magnesium 1.6 mg/dL (1.6-2.3); Non-African American GFR(CKD) 35 (>60 ml/min/1.73 sqM); Potassium 3.5 mmol/L (3.5-5.1); Sodium 142 mmol/L (137-145)
[2022-04-21 00:50] LABS: Lactic Acid, Venous 2.6 mmol/L (0.7-2.0)
[2022-04-21] MEDS ORDERED: PROPOFOL 10 MG/ML 20 ML VIAL IV ONE (00:50)
[2022-04-21] MEDS ORDERED: SUCCINYLCHOLINE CHLORIDE 200 MG/10 ML VIAL IV ONE (00:50)
[2022-04-21 00:55] LABS: Glucose,Whole Blood 95 mg/dL (70-110)
[2022-04-21] MEDS ORDERED: propofoL 100 ML IV ONE (00:59)
[2022-04-21] MEDS ORDERED: NOREPINEPHRIN 4 MG-0.9% NS PMX 4 MG/250 ML ML IV ONE (01:00)
[2022-04-21] MEDS ORDERED: NALOXONE 0.4 MG/ML 1 ML VIAL IV PRN (01:07)
[2022-04-21] MEDS: NOREPINEPHRINE 4 MG in SODIUM CHLORIDE 0.9% 250 ML IV SCH ×2 (01:25→13:47)
[2022-04-21 01:35] LABS: ABG Base Excess -5.8 mmol/L; ABG HCO3 19 mmol/L (21-25); ABG Oxygen Saturation 99.7 % (94-97); ABG PCO2 31 mmHg (35-45); ABG PH 7.39 (7.35-7.45); ABG PO2 134 mmHg (83-108); ABG TCO2 20 mmol/L (19-24); Allen Test Performed? Yes
--- NOTE | 2022-04-21 01:41 | P.EN ---
A- team: Indication: Altered mental status Arrived on Scene to find: Patient is comatose, snoring loudly with apneic episodes Vital signs reviewed: BP 162/97, pulse 134, SpO2 98% on 4 L nasal cannula oxygen, temperature 97.4F Patient seen and examined at bedside. The patient has had a prolonged and complicated hospital course with gradually worsening mentation. An extensive workup was performed including MRI, multiple EEGs, and a lumbar puncture without any clear etiology noted. Patient was started on antiepileptics without improvement. The patient was accepted to [facility] for possible 24- hour EEG monitoring. When EMS arrived however, the patient's respiratory status worsened, and he began having apneic episodes. They subsequently refused to take the patient. The case was discussed by the telegraphic typewriter repairer in detail with the pack puller and family members at the bedside. The patient was subsequently transferred to medical ICU where he was intubated by the SECONDARY SCHOOL TEACHER. General: Ill-appearing male, snoring loudly, [appears at stated age] Derm: [warm], [dry] Follow-up times is a 40 is a just a is unremarkable improvement 0.0 thousand and return allowing us emergency room a right tired. Resolved as demonstrated by his is absolutely all Head: [atraumatic], [normocephalic], [symmetric] Eyes: [anicteric sclera] Mouth: [no lip lesion], [mucus membranes moist] Cardiovascular: Tachycardic, no murmur, [positive posterior tibial pulse bilateral], Lungs: [CTA bilateral], [no rhonchi, no rales] , [no accessory muscle use] Abdominal: [soft], [ nontender to palpation], [no guarding], [no appreciable organomegaly] Ext: [no gross muscle atrophy], [no edema], [no contractures] Neuro: Patient unresponsive to noxious stimuli, unable to assess Assessment: Worsening mental status, unclear etiology, with apneic episodes Plan: The patient's apneic episodes quickly became more frequent, from occurring once every minute to occurring once every 10-15 seconds Will contact [facility] again to arrange for transfer to an ICU bed Continue with ventilator bundle Follow-up labs Disposition: Patient transferred to medical ICU Notified: Family members A Total of 45 minutes of critical care time was spent on the complex care of this patient.
--- NOTE | 2022-04-21 01:43 | XR ---
EXAM: XR Chest, 1 View CLINICAL HISTORY: Tube placement TECHNIQUE: Frontal view of the chest. COMPARISON: 04/21/2022 at 00 10 hours FINDINGS: Lungs: Diminished lung volumes. No focal airspace consolidation. The pulmonary vasculature is unremarkable. Pleural space: Unremarkable. No pneumothorax. No large pleural effusion. Heart: The cardiac silhouette is within normal limits. Mediastinum: No appreciable alteration, accounting for accentuated kyphotic technique. No tracheal deviation. Bones/joints: See above. Tubes, lines and devices: The endotracheal tube is identified with the tip approximately 2.3 cm from the rai. The nasogastric tube traverses the mediastinum and terminates in the left upper quadrant. IMPRESSION: 1. The endotracheal tube is identified with the tip approximately 2.3 cm from the rai. 2. The nasogastric tube traverses the mediastinum and terminates in the left upper quadrant, presumably in the proximal stomach.
[2022-04-21 01:49] LABS: Amorphous Sediment,Urine Rare /hpf; Appearance,Urine Clear (Clear); Bilirubin,Urine Negative (Negative); Blood,Urine Moderate (Negative); Color,Urine Light Yellow; Glucose,Urine (UA) Negative (Negative); Granular Casts,Urine 5 /lpf (0); Hyaline Casts,Urine 14 /lpf (0-2); Ketones,Urine 1+ (Negative); Leukocyte Esterase,Urine Negative (Negative); Mucus,Urine Rare /hpf; Nitrite,Urine Negative (Negative); PH, Urine 6.5 (5.0-8.0); Protein,Urine 1+ (Negative); RBC,Urine 6 /hpf (0-5); Specific Gravity,Urine 1.014 (1.001-1.035); Squamous Epithelial Cell,Urine <1 /hpf (0-4); Urobilinogen,Urine <2.0 mg/dL (<2.0); WBC,Urine 3 /hpf (0-5)
--- NOTE | 2022-04-21 01:50 | P.PN ---
Subjective Progress Note Date: 04/19/22 Principal diagnosis: Left foot abscess and cellulitis Patient is a 67-year-old male presenting to the hospital with a fever and chills and left foot and leg pain swelling and redness has been diagnosed with a left foot abscess and cellulitis. Patient is status post surgical drainage of the abscess completed on 04/07/2022 with a repeat drainage on 04/17/2022 On today's evaluation that is 04/19/2022, the patient continues to be afebrile, the patient is breathing comfortably on nasal cannula oxygen, the patient remains to be unresponsive and unable to provide any history and no vomiting no diarrhea was reported by the family at the bedside Objective - Vital Signs Vital signs: Vital Signs Temp 98.2 F 04/19/22 12:45 Pulse 98 04/19/22 12:45 Resp 18 04/19/22 12:45 BP 157/93 04/19/22 12:45 Pulse Ox 98 04/19/22 12:45 FiO2 Intake & Output 04/18/22 04/19/22 04/19/22 18:59 06:59 18:59 Intake Total 1000 0 Balance 1000 0 Weight 97.522 kg Intake: Intake, IV Titration 1000 Amount Lactated Ringers 1,000 ml 900 @ 75 mls/hr IV .[id number] [facility] Rx#:[id number] Piperacillin-Tazobactam 3 100 .375 gm In Sodium Chloride 0.9% 100 ml @ 25 mls/hr IVPB Q8H [facility] Rx#: [id number] Oral 0 Other: Voiding Method Diaper Diaper Diaper Incontinent Incontinent Incontinent # Voids 4 1 # Bowel Movements 1 - Exam GENERAL DESCRIPTION: An elderly male lying in bed in no distress RESPIRATORY SYSTEM: Unlabored breathing , decreased breath sounds at bases HEART: S1 S2 regular rate and rhythm , ABDOMEN: Soft , no tenderness EXTREMITIES: Left leg and foot is currently No drainage on the dressing - Labs CBC & Chem 7: 04/21/22 00:18 04/21/22 00:18 Labs: Abnormal Lab Results - Last 24 Hours (Table) 04/19/22 04/19/22 Range/Units 06:23 06:23 WBC 3.43 L (4.50-10.00) X 10*3/uL RBC 2.77 L (4.40-5.60) X 10*6/uL Hgb 8.5 L (13.0-17.0) g/dL Hct 27.4 L (39.6-50.0) % MCV 98.9 H (80.0-97.0) fL MCHC 31.0 L (32.0-37.0) g/dL RDW 23.7 H (11.5-14.5) % Plt Count 95 L (140-440) X 10*3/uL Absolute Nucleated RBC 0.02 H (0.00-0.00) X 10*3/uL Lymphocytes # 0.28 L (0.90-5.00) X 10*3/uL NRBC/100 WBC Diff 0.6 H (0.0-0.0) /100 WBCS Potassium 3.4 L (3.5-5.5) mmol/L Creatinine 1.9 H (0.6-1.5) mg/dL Est GFR (CKD-EPI)AfAm 41.1 L (60.0-200.0) Est GFR (CKD-EPI)NonAf 35.4 L (60.0-200.0) BUN/Creatinine Ratio 5.89 L (12.00-20.00) Ratio Calcium 8.2 L (8.7-10.3) mg/dL Assessment and Plan (1) Cellulitis Current Visit: Yes Status: Acute Priority: High Code(s): L03.90 - CELLULITIS, UNSPECIFIED SNOMED Code(s): 517352930 Plan: 1patient presented to hospital with fever weakness increasing pain and swelling to the left foot in this patient recently treated for cellulitis CT at that time did not show any abscess and there is a question of a necrotizing infection however the patient was evaluated by orthopedic and recommended no surgical intervention patient now clinically has evidence of left foot abscess could be responsible for his recurrent symptoms. 2 CT of the left foot did shows evidence of abscess and the patient is status post drainage of the abscess on 04/07/2022 and the cultures were finalized with Pseudomonas , patient did have another fluctuant area to the right posterior leg which has been drained, and repeat cultures also grew Pseudomonas 3patient did have significant encephalopathy for which neurology is following the patient and did have extensive workup if no improvement by tomorrow to obtain LP for now Continue with the Zosyn discussed with the medical team Time with Patient: Less than 30
--- NOTE | 2022-04-21 01:52 | P.PN ---
Subjective Progress Note Date: 04/20/22 Principal diagnosis: Left foot abscess and cellulitis Patient is a 67-year-old male presenting to the hospital with a fever and chills and left foot and leg pain swelling and redness has been diagnosed with a left foot abscess and cellulitis. Patient is status post surgical drainage of the abscess completed on 04/07/2022 with a repeat drainage on 04/17/2022 On today's evaluation that is 04/20/2022, the patient continues to be afebrile, the patient is breathing comfortably on nasal cannula oxygen, the patient remains to be unresponsive and unable to provide any history and seem to have loud snoring since morning per the at the bedside, no vomiting no diarrhea was reported by the family at the bedside Objective - Vital Signs Vital signs: Vital Signs Temp 98.9 F 04/20/22 19:54 Pulse 98 04/20/22 19:54 Resp 20 04/20/22 19:54 BP 161/101 04/20/22 19:54 Pulse Ox 97 04/20/22 19:54 FiO2 Intake & Output 04/20/22 04/20/22 04/21/22 06:59 18:59 06:59 Intake Total 0 Balance 0 Intake: Oral 0 Other: Voiding Method Diaper Diaper Incontinent Incontinent # Voids 6 4 # Bowel Movements 0 3 - Exam GENERAL DESCRIPTION: An elderly male lying in bed in no distress RESPIRATORY SYSTEM: Unlabored breathing , decreased breath sounds at bases HEART: S1 S2 regular rate and rhythm , ABDOMEN: Soft , no tenderness EXTREMITIES: Left leg and foot is currently No drainage on the dressing - Labs CBC & Chem 7: 04/21/22 00:18 04/21/22 00:18 Labs: Abnormal Lab Results - Last 24 Hours (Table) 04/20/22 04/20/22 04/20/22 Range/Units 04:25 04:25 11:45 WBC 3.98 L (4.50-10.00) X 10*3/uL RBC 2.67 L (4.40-5.60) X 10*6/uL Hgb 8.0 L (13.0-17.0) g/dL Hct 26.6 L (39.6-50.0) % MCV 99.6 H (80.0-97.0) fL MCHC 30.1 L (32.0-37.0) g/dL RDW 23.6 H (11.5-14.5) % Plt Count 99 L (140-440) X 10*3/uL MPV 13.4 H (9.5-12.2) fL Lymphocytes # 0.36 L (0.90-5.00) X 10*3/uL Chloride 111 H (96-109) mmol/L Creatinine 1.9 H (0.6-1.5) mg/dL Est GFR (CKD-EPI)AfAm 42.1 L (60.0-200.0) Est GFR (CKD-EPI)NonAf 36.4 L (60.0-200.0) BUN/Creatinine Ratio 5.75 L (12.00-20.00) Ratio Calcium 8.0 L (8.7-10.3) mg/dL CSF Total Protein 91 H (12-60) mg/dL Microbiology - Last 24 Hours (Table) 04/17/22 15:39 Gram Stain - Final Leg - Left Wound Culture - Final Pseudomonas aeruginosa 04/20/22 11:45 CSF Gram Stain - Preliminary Cerebral Spinal Fluid CSF Culture - Preliminary 04/17/22 15:39 Anaerobic Culture - Preliminary Leg - Left Assessment and Plan (1) Cellulitis Current Visit: Yes Status: Acute Priority: High Code(s): L03.90 - CELLULITIS, UNSPECIFIED SNOMED Code(s): 810545217 Plan: 1patient presented to hospital with fever weakness increasing pain and swelling to the left foot in this patient recently treated for cellulitis CT at that time did not show any abscess and there is a question of a necrotizing infection however the patient was evaluated by orthopedic and recommended no surgical intervention patient now clinically has evidence of left foot abscess could be responsible for his recurrent symptoms. 2 CT of the left foot did shows evidence of abscess and the patient is status post drainage of the abscess on 04/07/2022 and the cultures were finalized with Pseudomonas , patient did have another fluctuant area to the right posterior leg which has been drained, and repeat cultures also grew Pseudomonas 3patient did have significant encephalopathy for which neurology is following the patient and did have extensive workup and did have LP this morning glucose was normal , protein mild elevated white cells only one , clinically and not behaving meningitis 4- Pt to continue with the syn and possible transfer to [facility] discussed with the medical team Time with Patient: Less than 30
--- NOTE | 2022-04-21 02:00 | XR ---
EXAM: XR Chest, 1 View CLINICAL HISTORY: shortness of breath TECHNIQUE: Frontal view of the chest. COMPARISON: 00 10 hours FINDINGS: Lungs: Diminished lung volumes. No definite focal airspace consolidation. The pulmonary vasculature demonstrates no significant radiographic abnormality. Pleural space: Unremarkable. No pneumothorax. No large pleural effusion. Heart: Unremarkable. No cardiomegaly. Mediastinum: The mediastinal contours are stable, although slightly less prominent. The trachea is midline. Bones/joints: Unremarkable. Tubes, lines and devices: Interval intubation with the endotracheal tube tip approximately 2 cm from the rai. The nasogastric tube is identified traversing the mediastinum with the tip in the left upper quadrant. IMPRESSION: 1. Interval intubation with the endotracheal tube tip approximately 2 cm from the rai. 2. The nasogastric tube is identified traversing the mediastinum with the tip in the left upper quadrant, presumably in the proximal stomach. 3. Diminished lung volumes. No focal airspace consolidation. The pulmonary vasculature demonstrates no significant radiographic abnormality.
[2022-04-21] MEDS: MAGNESIUM SULFATE-D5W PMX 1 GM in DEXTROSE/WATER 1 100ML.BAG IVPB SCH ×2 (02:58→04:08)
[2022-04-21] MEDS: ACYCLOVIR SODIUM 850 MG in SODIUM CHLORIDE 0.9% 250 ML IVPB SCH ×2 (02:59→11:33)
[2022-04-21] MEDS: POTASSIUM BICARBONATE/CIT AC 20 MEQ TABLET.EFF NG-TUBE SCH ×2 (02:59→04:08)
[2022-04-21 03:52] LABS: Anisocytosis Moderate; HGB 9.6 gm/dL (13.0-17.5); Hypochromasia Marked; MCH 32.4 pg (25.0-35.0); MCV 104.5 fL (80.0-100.0); Macrocytosis Marked; Mean Platelet Volume 11.2; Platelet Count 110 k/uL (150-450); Poikilocytosis Slight; RBC 2.97 m/uL (4.30-5.90); RDW 21.8 % (11.5-15.5)
[2022-04-21] MEDS: PIPERACILLIN-TAZOBACTAM 3.375 GM in SODIUM CHLORIDE 0.9% 100 ML IVPB SCH ×3 (04:08→20:30)
[2022-04-21 04:09] LABS: ALT 8 U/L (4-49); AST 44 U/L (17-59); African American GFR (CKD) 42 (>60 ml/min/1.73 sqM); Albumin 2.4 g/dL (3.5-5.0); Alkaline Phosphatase 124 U/L (38-126); Anion Gap 9 mmol/L; Blood Urea Nitrogen 11 mg/dL (9-20); Calcium 7.6 mg/dL (8.4-10.2); Carbon Dioxide 21 mmol/L (22-30); Chloride 114 mmol/L (98-107); Globulin 2.4 g/dL; Glucose 93 mg/dL (74-99); Magnesium 1.5 mg/dL (1.6-2.3); Non-African American GFR(CKD) 36 (>60 ml/min/1.73 sqM); Potassium 3.4 mmol/L (3.5-5.1); Sodium 144 mmol/L (137-145); Total Bilirubin 0.5 mg/dL (0.2-1.3); Total Protein 4.8 g/dL (6.3-8.2)
[2022-04-21 04:35] LABS: Anisocytosis (M) Present; Band Neutrophils % 2 %; Neutrophils % (M) 64 %; Nucleated Red Blood Cells 0 /100 WBC (0-0); Polychromasia Present; Total Cells Counted 100
[2022-04-21] MEDS ORDERED: ACETAMINOPHEN IV (For NPO) 1,000 MG in EMPTY BAG 1 BAG IVPB PRN (04:41)
[2022-04-21 05:26] LABS: ABG Base Excess -2.9 mmol/L; ABG HCO3 21 mmol/L (21-25); ABG Oxygen Saturation 98.5 % (94-97); ABG PCO2 31 mmHg (35-45); ABG PH 7.45 (7.35-7.45); ABG PO2 95 mmHg (83-108); ABG TCO2 22 mmol/L (19-24); Allen Test Performed? Yes
[2022-04-21] MEDS ORDERED: PANTOPRAZOLE 40 MG/10 ML VIAL IV SCH (07:30)
[2022-04-21] MEDS ORDERED: SODIUM CHLORIDE 0.9% 1,000 ML IV SCH (08:15)
[2022-04-21] MEDS: LACTATED RINGERS 1,000 ML IV SCH (08:40)
--- NOTE | 2022-04-21 08:54 | P.PN ---
Subjective Patient is seen in follow-up for acute kidney injury and chronic kidney disease. Renal function stable. Transfer to the ICU last night due to respiratory distress/apneic episodes. Currently intubated. Required Levophed temporarily but now discontinued. Vital signs are stable. HEENT: Intubated. LUNGS: Breath sounds decreased. HEART: Rate and Rhythm are regular. ABDOMEN: Soft, no distention. EXTREMITITES: No edema. Left lower extremity wrapped. No drainage. Objective - Vital Signs Vital signs: Vital Signs Temp 98.4 F 04/21/22 08:00 Pulse 98 04/21/22 08:30 Resp 16 04/21/22 08:30 BP 93/72 04/21/22 08:30 Pulse Ox 99 04/21/22 08:30 FiO2 30 04/21/22 08:00 Intake & Output 04/20/22 04/21/22 04/21/22 18:59 06:59 18:59 Intake Total 765.481 133.3 Output Total 430 80 Balance 335.481 53.3 Intake: IV 750 75 0.9 NaCl- 250 50 Acyclovir 250 Magnesium 200 Piperacillin-Tazobactam 3 50 25 .375 gm In Sodium Chloride 0.9% 100 ml @ 25 mls/hr IVPB Q8H [facility] Rx#: [id number] Intake, IV Titration 15.481 58.3 Amount Norepinephrine 4 mg In 15.481 Sodium Chloride 0.9% 250 ml @ 0.05 MCG/KG/MIN 18. 578 mls/hr IV .[id number] [facility] Rx#:[id number] Sodium Chloride 0.9% 1, 50 000 ml @ 50 mls/hr IV . Q20H [facility] Rx#:[id number] propofoL 1,000 mg In 8.3 Empty Bag 1 bag @ 5 MCG/ KG/MIN 2.926 mls/hr IV . Q24H [facility] Rx#:[id number] Output: Gastric Drainage 70 Urine 360 80 Other: Voiding Method Diaper Indwelling Catheter Incontinent # Voids 4 # Bowel Movements 3 - Labs CBC & Chem 7: 04/21/22 03:11 04/21/22 03:11 Labs: Abnormal Lab Results - Last 24 Hours (Table) 04/20/22 04/20/22 04/20/22 Range/Units 04:25 04:25 11:45 WBC 3.98 L (4.50-10.00) X 10*3/uL RBC 2.67 L (4.40-5.60) X 10*6/uL Hgb 8.0 L (13.0-17.0) g/dL Hct 26.6 L (39.6-50.0) % MCV 99.6 H (80.0-97.0) fL MCHC 30.1 L (32.0-37.0) g/dL RDW 23.6 H (11.5-14.5) % Plt Count 99 L (140-440) X 10*3/uL MPV 13.4 H (9.5-12.2) fL Lymphocytes # 0.36 L (0.90-5.00) X 10*3/uL Lymphocytes # (Manual) (1.0-4.8) k/uL Macrocytosis ABG pCO2 (35-45) mmHg ABG pO2 (83-108) mmHg ABG HCO3 (21-25) mmol/L ABG O2 Saturation (94-97) % Potassium (3.5-5.1) mmol/L Chloride 111 H (96-109) mmol/L Carbon Dioxide (22-30) mmol/L Creatinine 1.9 H (0.6-1.5) mg/dL Est GFR (CKD-EPI)AfAm 42.1 L (60.0-200.0) Est GFR (CKD-EPI)NonAf 36.4 L (60.0-200.0) BUN/Creatinine Ratio 5.75 L (12.00-20.00) Ratio Glucose (74-99) mg/dL Plasma Lactic Acid Jeromy (0.7-2.0) mmol/L Calcium 8.0 L (8.7-10.3) mg/dL Magnesium (1.6-2.3) mg/dL Total Protein (6.3-8.2) g/dL Albumin (3.5-5.0) g/dL Urine Protein (Negative) Urine Ketones (Negative) Urine Blood (Negative) Urine RBC (0-5) /hpf Amorphous Sediment (None) /hpf Hyaline Casts (0-2) /lpf Urine Mucus (None) /hpf CSF Total Protein 91 H (12-60) mg/dL 04/21/22 04/21/22 04/21/22 Range/Units 00:18 00:18 00:18 WBC (4.50-10.00) X 10*3/uL RBC 3.06 L (4.40-5.60) X 10*6/uL Hgb 9.9 L (13.0-17.0) g/dL Hct 31.9 L (39.6-50.0) % MCV 104.2 H D (80.0-97.0) fL MCHC (32.0-37.0) g/dL RDW 21.4 H (11.5-14.5) % Plt Count (140-440) X 10*3/uL MPV (9.5-12.2) fL Lymphocytes # (0.90-5.00) X 10*3/uL Lymphocytes # (Manual) (1.0-4.8) k/uL Macrocytosis Marked A ABG pCO2 (35-45) mmHg ABG pO2 (83-108) mmHg ABG HCO3 (21-25) mmol/L ABG O2 Saturation (94-97) % Potassium (3.5-5.1) mmol/L Chloride 113 H (96-109) mmol/L Carbon Dioxide 20 L (22-30) mmol/L Creatinine 1.91 H (0.6-1.5) mg/dL Est GFR (CKD-EPI)AfAm (60.0-200.0) Est GFR (CKD-EPI)NonAf (60.0-200.0) BUN/Creatinine Ratio (12.00-20.00) Ratio Glucose 102 H (74-99) mg/dL Plasma Lactic Acid Jeromy 2.6 H* (0.7-2.0) mmol/L Calcium 7.9 L (8.7-10.3) mg/dL Magnesium (1.6-2.3) mg/dL Total Protein (6.3-8.2) g/dL Albumin (3.5-5.0) g/dL Urine Protein (Negative) Urine Ketones (Negative) Urine Blood (Negative) Urine RBC (0-5) /hpf Amorphous Sediment (None) /hpf Hyaline Casts (0-2) /lpf Urine Mucus (None) /hpf CSF Total Protein (12-60) mg/dL 04/21/22 04/21/22 04/21/22 Range/Units 00:25 01:12 01:33 WBC (4.50-10.00) X 10*3/uL RBC (4.40-5.60) X 10*6/uL Hgb (13.0-17.0) g/dL Hct (39.6-50.0) % MCV (80.0-97.0) fL MCHC (32.0-37.0) g/dL RDW (11.5-14.5) % Plt Count (140-440) X 10*3/uL MPV (9.5-12.2) fL Lymphocytes # (0.90-5.00) X 10*3/uL Lymphocytes # (Manual) (1.0-4.8) k/uL Macrocytosis ABG pCO2 31 L (35-45) mmHg ABG pO2 122 H 134 H (83-108) mmHg ABG HCO3 19 L (21-25) mmol/L ABG O2 Saturation 99.2 H 99.7 H (94-97) % Potassium (3.5-5.1) mmol/L Chloride (96-109) mmol/L Carbon Dioxide (22-30) mmol/L Creatinine (0.6-1.5) mg/dL Est GFR (CKD-EPI)AfAm (60.0-200.0) Est GFR (CKD-EPI)NonAf (60.0-200.0) BUN/Creatinine Ratio (12.00-20.00) Ratio Glucose (74-99) mg/dL Plasma Lactic Acid Jeromy (0.7-2.0) mmol/L Calcium (8.7-10.3) mg/dL Magnesium (1.6-2.3) mg/dL Total Protein (6.3-8.2) g/dL Albumin (3.5-5.0) g/dL Urine Protein 1+ H (Negative) Urine Ketones 1+ H (Negative) Urine Blood Moderate H (Negative) Urine RBC 6 H (0-5) /hpf Amorphous Sediment Rare H (None) /hpf Hyaline Casts 14 H (0-2) /lpf Urine Mucus Rare H (None) /hpf CSF Total Protein (12-60) mg/dL 04/21/22 04/21/22 04/21/22 Range/Units 03:11 03:11 03:11 WBC (4.50-10.00) X 10*3/uL RBC 2.97 L (4.40-5.60) X 10*6/uL Hgb 9.6 L (13.0-17.0) g/dL Hct 31.0 L (39.6-50.0) % MCV 104.5 H (80.0-97.0) fL MCHC (32.0-37.0) g/dL RDW 21.8 H (11.5-14.5) % Plt Count 110 L (140-440) X 10*3/uL MPV (9.5-12.2) fL Lymphocytes # (0.90-5.00) X 10*3/uL Lymphocytes # (Manual) 0.70 L (1.0-4.8) k/uL Macrocytosis Marked A ABG pCO2 (35-45) mmHg ABG pO2 (83-108) mmHg ABG HCO3 (21-25) mmol/L ABG O2 Saturation (94-97) % Potassium 3.4 L (3.5-5.1) mmol/L Chloride 114 H (96-109) mmol/L Carbon Dioxide 21 L (22-30) mmol/L Creatinine 1.87 H (0.6-1.5) mg/dL Est GFR (CKD-EPI)AfAm (60.0-200.0) Est GFR (CKD-EPI)NonAf (60.0-200.0) BUN/Creatinine Ratio (12.00-20.00) Ratio Glucose (74-99) mg/dL Plasma Lactic Acid Jeromy 2.7 H* (0.7-2.0) mmol/L Calcium 7.6 L (8.7-10.3) mg/dL Magnesium 1.5 L (1.6-2.3) mg/dL Total Protein 4.8 L (6.3-8.2) g/dL Albumin 2.4 L (3.5-5.0) g/dL Urine Protein (Negative) Urine Ketones (Negative) Urine Blood (Negative) Urine RBC (0-5) /hpf Amorphous Sediment (None) /hpf Hyaline Casts (0-2) /lpf Urine Mucus (None) /hpf CSF Total Protein (12-60) mg/dL 04/21/22 04/21/22 Range/Units 05:23 06:43 WBC (4.50-10.00) X 10*3/uL RBC (4.40-5.60) X 10*6/uL Hgb (13.0-17.0) g/dL Hct (39.6-50.0) % MCV (80.0-97.0) fL MCHC (32.0-37.0) g/dL RDW (11.5-14.5) % Plt Count (140-440) X 10*3/uL MPV (9.5-12.2) fL Lymphocytes # (0.90-5.00) X 10*3/uL Lymphocytes # (Manual) (1.0-4.8) k/uL Macrocytosis ABG pCO2 31 L (35-45) mmHg ABG pO2 (83-108) mmHg ABG HCO3 (21-25) mmol/L ABG O2 Saturation 98.5 H (94-97) % Potassium (3.5-5.1) mmol/L Chloride (96-109) mmol/L Carbon Dioxide (22-30) mmol/L Creatinine (0.6-1.5) mg/dL Est GFR (CKD-EPI)AfAm (60.0-200.0) Est GFR (CKD-EPI)NonAf (60.0-200.0) BUN/Creatinine Ratio (12.00-20.00) Ratio Glucose (74-99) mg/dL Plasma Lactic Acid Jeromy 2.2 H* (0.7-2.0) mmol/L Calcium (8.7-10.3) mg/dL Magnesium (1.6-2.3) mg/dL Total Protein (6.3-8.2) g/dL Albumin (3.5-5.0) g/dL Urine Protein (Negative) Urine Ketones (Negative) Urine Blood (Negative) Urine RBC (0-5) /hpf Amorphous Sediment (None) /hpf Hyaline Casts (0-2) /lpf Urine Mucus (None) /hpf CSF Total Protein (12-60) mg/dL Microbiology - Last 24 Hours (Table) 04/20/22 11:45 CSF Gram Stain - Preliminary Cerebral Spinal Fluid CSF Culture - Preliminary 04/17/22 15:39 Gram Stain - Final Leg - Left Wound Culture - Final Pseudomonas aeruginosa Assessment and Plan Plan: Assessment: 1. Acute kidney injury secondary to ATN secondary to infection and diuresis. Creatinine stable near 1.9 the last few days. Kidney ultrasound from earlier this month showed no evidence of hydronephrosis. 2. Chronic kidney disease stage IIIB with baseline creatinine near 1.5. Etiology is myeloma kidney. UPC 3.2 g. 3. Left lower extremity cellulitis with possible abscess on antibiotics. S/p incision and drainage 04/07/2022. On antibiotics. 4. Multiple myeloma maintained on chemotherapy outpatient. 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 Computed tomography scan showed multiple compression fractures as well as large destructive lytic lesion at level of T12. 5. Anemia of chronic kidney disease. Mild iron deficiency noted - status post IV iron. Also with thrombocytopenia possibly related to therapy for myeloma. 6. Lower extremity edema. Status post diuresis. Improved. 7. Hypokalemia secondary to poor intake. 8. Hypomagnesemia secondary to poor intake. Plan: Maintain gentle IV hydration. Potassium and magnesium being replaced. Continue to hold diuretics. 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 Avoid nephrotoxins. Discussed with the patient that he may need kidney biopsy for definitive diagn osis in future. Await transfer to [facility] for continuous EEG monitoring.
[2022-04-21] MEDS: CHLORHEXIDINE GLUCONATE 15 ML CUP MUCOUS MEM SCH ×3 (09:28→20:29)
[2022-04-21] MEDS: MULTIVITAMINS, THERA 1 EACH TAB PO SCH (09:28)
[2022-04-21] MEDS: GABAPENTIN 100 MG CAP PO SCH ×2 (09:28→20:29)
[2022-04-21] MEDS: ENOXAPARIN 100 MG/ML SYRINGE SQ SCH ×2 (09:32→20:31)
[2022-04-21] MEDS: levETIRAcetam IV 750 MG in SODIUM CHLORIDE 0.9% 100 ML IVPB SCH ×2 (09:33→20:29)
--- NOTE | 2022-04-21 10:52 | P.PN ---
Subjective Progress Note Date: 04/21/22 It seems to the patient was about to be transferred yesterday for long-term EEG to [facility] but the patient started having apneic episode which were became more frequent so the patient was unable to be transferred because of his condition as a result the patient was intubated, placed on ventilator and was placed in ICU. It seems that the patient had low fevers overnight with T-max of 101 but most current one is 98.4. His most current white blood cell is 5.0 thousand. His current plasma lactic acid vein is 2.7 and his normalized. Upon seeing the patient ICU for the patient's nurse no clinical seizures and the patient was on a low dose of IV propofol 15mcg/kg/min. Objective - Vital Signs Vital signs: Vital Signs Temp 98.4 F 04/21/22 08:00 Pulse 96 04/21/22 10:00 Resp 16 04/21/22 10:00 BP 101/69 04/21/22 10:00 Pulse Ox 100 04/21/22 10:00 FiO2 30 04/21/22 08:00 Intake & Output 04/20/22 04/21/22 04/21/22 18:59 06:59 18:59 Intake Total 765.481 451.401 Output Total 430 140 Balance 335.481 311.401 Intake: IV 750 75 0.9 NaCl- 250 50 Acyclovir 250 Magnesium 200 Piperacillin-Tazobactam 3 50 25 .375 gm In Sodium Chloride 0.9% 100 ml @ 25 mls/hr IVPB Q8H NNAMDI Rx#: [id number] Intake, IV Titration 15.481 316.401 Amount Norepinephrine 4 mg In 15.481 Sodium Chloride 0.9% 250 ml @ 0.05 MCG/KG/MIN 18. 578 mls/hr IV .[id number] NNAMDI Rx#:[id number] Sodium Chloride 0.9% 1, 150 000 ml @ 50 mls/hr IV . Q20H NNAMDI Rx#:[id number] levETIRAcetam IV 750 mg 100 In Sodium Chloride 0.9% 100 ml @ 400 mls/hr IVPB Q12HR NNAMDI Rx#:[id number] propofoL 1,000 mg In 66.401 Empty Bag 1 bag @ 5 MCG/ KG/MIN 2.926 mls/hr IV . Q24H NNAMDI Rx#:[id number] Other 60 Output: Gastric Drainage 70 Urine 360 140 Other: Voiding Method Diaper Indwelling Catheter Incontinent # Voids 4 # Bowel Movements 3 - Exam GENERAL: The patient is lying in bed and does not seem in acute distress. RESPIRATORY: Intubated on ventilator. NEUROLOGICAL: Limited because of his condition. Is on IV propofol 15mcg/kg/min. Higher mental function: The patient is comatose. GCS 5 (E3, T1, M1) Cranial nerves: He opens his eyes spontaneously. The primary gaze is midline. The pupils are round, equal and seem pinpoint. No facial weakness. No facial twitching appreciated. Is breathing over the vent. Motor: The strength is limited. No spontaneous movement noted. Some of the work-up during this hospital visit consisted of: Patient has pancytopenia Sodium is 133 and most current is 138. Most recent calcium is 8.5. Ammonia is less than 9. Vitamin B12 is 1029 Folate is more than 20. TSH: 7.510 and free T4: 2.63 Larios virus PCR was not detected that. Hepatitis panel so far is non-reactive. Patient had CT of the head on 04/11/2022 2 reported as age-related atrophy and chronic small vessel ischemic changes without acute intracranial process seen at this time. I personally reviewed the CT of the head and I agree with the impression. Patient also had MRI lumbar spine which is reported as numerous compression fraction throughout the vertebral column is noted on the computed tomography scan. Large disruptive lytic lesion suspected on T12. Cortical step-off posteriorly likely represent initial finding of pathological fracture. This appears to be likely related to metastatic or multiple myeloma. Numerous additional compression fraction most severe at T11 also likely pathological. CT thoracic and lumbar is reported as known multiple myeloma. Diffuse osteopenia. Multiple vertebral body collapse with suspected acute fracture of T12 vertebral body likely secondary due to underlying multiple myeloma lesion. MRI of the brain revealed no acute ischemia. Degenerative and remote ischemic change. Mild right mastoiditis. I personally reviewed MRI of the brain and agree with the findings. EEG 04/14/2022 was abnormal due to background slowing of mild to moderate degree, consistent with encephalopathy. No epileptiform activity was seen. EEG on 04/18/2022 was reported as abnormal EEG due to background slowing of moderate to severe degree with presence of diffuse, persistent triphasic waves seen in bihemispheric region. This is suggestive of generalized cerebral dysfunction as can be seen with toxic metabolic encephalopathy. Local correlation of follow-up EEG recommended. Triphasic waves are equally and can be seen with hepatic encephalopathy. Clinical correlation is recommended. No definite epileptiform activity seen. CSF: clear, colorless, 2 rbc, 1 nucleated cells, glucose is 45, protein is 9 (normal protein is 12-60). CSF culture: No growth after 24 hours. - Labs CBC & Chem 7: 04/21/22 03:11 04/21/22 03:11 Labs: Abnormal Lab Results - Last 24 Hours (Table) 04/20/22 04/20/22 04/21/22 Range/Units 04:25 11:45 00:18 RBC 3.06 L (4.30-5.90) m/uL Hgb 9.9 L (13.0-17.5) gm/dL Hct 31.9 L (39.0-53.0) % MCV 104.2 H D (80.0-100.0) fL RDW 21.4 H (11.5-15.5) % Plt Count (150-450) k/uL Lymphocytes # (Manual) (1.0-4.8) k/uL Macrocytosis Marked A ABG pCO2 (35-45) mmHg ABG pO2 (83-108) mmHg ABG HCO3 (21-25) mmol/L ABG O2 Saturation (94-97) % Potassium (3.5-5.1) mmol/L Chloride 111 H (96-109) mmol/L Carbon Dioxide (22-30) mmol/L Creatinine 1.9 H (0.6-1.5) mg/dL Est GFR (CKD-EPI)AfAm 42.1 L (60.0-200.0) Est GFR (CKD-EPI)NonAf 36.4 L (60.0-200.0) BUN/Creatinine Ratio 5.75 L (12.00-20.00) Ratio Glucose (74-99) mg/dL Plasma Lactic Acid Jeromy (0.7-2.0) mmol/L Calcium 8.0 L (8.7-10.3) mg/dL Magnesium (1.6-2.3) mg/dL Total Protein (6.3-8.2) g/dL Albumin (3.5-5.0) g/dL Urine Protein (Negative) Urine Ketones (Negative) Urine Blood (Negative) Urine RBC (0-5) /hpf Amorphous Sediment (None) /hpf Hyaline Casts (0-2) /lpf Urine Mucus (None) /hpf CSF Total Protein 91 H (12-60) mg/dL 04/21/22 04/21/22 04/21/22 Range/Units 00:18 00:18 00:25 RBC (4.30-5.90) m/uL Hgb (13.0-17.5) gm/dL Hct (39.0-53.0) % MCV (80.0-100.0) fL RDW (11.5-15.5) % Plt Count (150-450) k/uL Lymphocytes # (Manual) (1.0-4.8) k/uL Macrocytosis ABG pCO2 (35-45) mmHg ABG pO2 122 H (83-108) mmHg ABG HCO3 (21-25) mmol/L ABG O2 Saturation 99.2 H (94-97) % Potassium (3.5-5.1) mmol/L Chloride 113 H (96-109) mmol/L Carbon Dioxide 20 L (22-30) mmol/L Creatinine 1.91 H (0.6-1.5) mg/dL Est GFR (CKD-EPI)AfAm (60.0-200.0) Est GFR (CKD-EPI)NonAf (60.0-200.0) BUN/Creatinine Ratio (12.00-20.00) Ratio Glucose 102 H (74-99) mg/dL Plasma Lactic Acid Jeromy 2.6 H* (0.7-2.0) mmol/L Calcium 7.9 L (8.7-10.3) mg/dL Magnesium (1.6-2.3) mg/dL Total Protein (6.3-8.2) g/dL Albumin (3.5-5.0) g/dL Urine Protein (Negative) Urine Ketones (Negative) Urine Blood (Negative) Urine RBC (0-5) /hpf Amorphous Sediment (None) /hpf Hyaline Casts (0-2) /lpf Urine Mucus (None) /hpf CSF Total Protein (12-60) mg/dL 04/21/22 04/21/22 04/21/22 Range/Units 01:12 01:33 03:11 RBC (4.30-5.90) m/uL Hgb (13.0-17.5) gm/dL Hct (39.0-53.0) % MCV (80.0-100.0) fL RDW (11.5-15.5) % Plt Count (150-450) k/uL Lymphocytes # (Manual) (1.0-4.8) k/uL Macrocytosis ABG pCO2 31 L (35-45) mmHg ABG pO2 134 H (83-108) mmHg ABG HCO3 19 L (21-25) mmol/L ABG O2 Saturation 99.7 H (94-97) % Potassium 3.4 L (3.5-5.1) mmol/L Chloride 114 H (96-109) mmol/L Carbon Dioxide 21 L (22-30) mmol/L Creatinine 1.87 H (0.6-1.5) mg/dL Est GFR (CKD-EPI)AfAm (60.0-200.0) Est GFR (CKD-EPI)NonAf (60.0-200.0) BUN/Creatinine Ratio (12.00-20.00) Ratio Glucose (74-99) mg/dL Plasma Lactic Acid Jeromy (0.7-2.0) mmol/L Calcium 7.6 L (8.7-10.3) mg/dL Magnesium 1.5 L (1.6-2.3) mg/dL Total Protein 4.8 L (6.3-8.2) g/dL Albumin 2.4 L (3.5-5.0) g/dL Urine Protein 1+ H (Negative) Urine Ketones 1+ H (Negative) Urine Blood Moderate H (Negative) Urine RBC 6 H (0-5) /hpf Amorphous Sediment Rare H (None) /hpf Hyaline Casts 14 H (0-2) /lpf Urine Mucus Rare H (None) /hpf CSF Total Protein (12-60) mg/dL 04/21/22 04/21/22 04/21/22 Range/Units 03:11 03:11 05:23 RBC 2.97 L (4.30-5.90) m/uL Hgb 9.6 L (13.0-17.5) gm/dL Hct 31.0 L (39.0-53.0) % MCV 104.5 H (80.0-100.0) fL RDW 21.8 H (11.5-15.5) % Plt Count 110 L (150-450) k/uL Lymphocytes # (Manual) 0.70 L (1.0-4.8) k/uL Macrocytosis Marked A ABG pCO2 31 L (35-45) mmHg ABG pO2 (83-108) mmHg ABG HCO3 (21-25) mmol/L ABG O2 Saturation 98.5 H (94-97) % Potassium (3.5-5.1) mmol/L Chloride (96-109) mmol/L Carbon Dioxide (22-30) mmol/L Creatinine (0.6-1.5) mg/dL Est GFR (CKD-EPI)AfAm (60.0-200.0) Est GFR (CKD-EPI)NonAf (60.0-200.0) BUN/Creatinine Ratio (12.00-20.00) Ratio Glucose (74-99) mg/dL Plasma Lactic Acid Jeromy 2.7 H* (0.7-2.0) mmol/L Calcium (8.7-10.3) mg/dL Magnesium (1.6-2.3) mg/dL Total Protein (6.3-8.2) g/dL Albumin (3.5-5.0) g/dL Urine Protein (Negative) Urine Ketones (Negative) Urine Blood (Negative) Urine RBC (0-5) /hpf Amorphous Sediment (None) /hpf Hyaline Casts (0-2) /lpf Urine Mucus (None) /hpf CSF Total Protein (12-60) mg/dL 04/21/22 Range/Units 06:43 RBC (4.30-5.90) m/uL Hgb (13.0-17.5) gm/dL Hct (39.0-53.0) % MCV (80.0-100.0) fL RDW (11.5-15.5) % Plt Count (150-450) k/uL Lymphocytes # (Manual) (1.0-4.8) k/uL Macrocytosis ABG pCO2 (35-45) mmHg ABG pO2 (83-108) mmHg ABG HCO3 (21-25) mmol/L ABG O2 Saturation (94-97) % Potassium (3.5-5.1) mmol/L Chloride (96-109) mmol/L Carbon Dioxide (22-30) mmol/L Creatinine (0.6-1.5) mg/dL Est GFR (CKD-EPI)AfAm (60.0-200.0) Est GFR (CKD-EPI)NonAf (60.0-200.0) BUN/Creatinine Ratio (12.00-20.00) Ratio Glucose (74-99) mg/dL Plasma Lactic Acid Jeromy 2.2 H* (0.7-2.0) mmol/L Calcium (8.7-10.3) mg/dL Magnesium (1.6-2.3) mg/dL Total Protein (6.3-8.2) g/dL Albumin (3.5-5.0) g/dL Urine Protein (Negative) Urine Ketones (Negative) Urine Blood (Negative) Urine RBC (0-5) /hpf Amorphous Sediment (None) /hpf Hyaline Casts (0-2) /lpf Urine Mucus (None) /hpf CSF Total Protein (12-60) mg/dL Microbiology - Last 24 Hours (Table) 04/20/22 11:45 CSF Gram Stain - Preliminary Cerebral Spinal Fluid CSF Culture - Preliminary 04/17/22 15:39 Gram Stain - Final Leg - Left Wound Culture - Final Pseudomonas aeruginosa Assessment and Plan Assessment: Encephalopathy of unknown etiology. Mentation is worsening and overnight has worsening of respiratory status. MRI Brain is negative for stroke. 2 EEG is negative for seizure. CSF is slightly elevated for protein but otherwise 1 nucleated cell (but was on antibiotic during this admission prior to CSF study). Cannot rule encephalitis due to multiple myeloma. Left facial twitching and EEG reported as no seizure---resolved His myoclonic jerks have improved Multiple myeloma undergoing chemotherapy and has pancytopenia Left lower extremity cellulitis with abscess Acute on chronic kidney insufficiency T12 fracture with multiple vertebral fracture due to multiple myeloma. Lumbar Spondylosis with multiple neuroformainal stenosis. History of pulmonary embolism on eliquis history of coronary artery disease Dyslipidemia Plan: * CSF cytology is pending. Pending comprehensive viral panel. Ordered Herpes 1/2 PCR. Cryptococal antigen and anti-NMDA are ordered pending. I.D. started the patient on Acylovir 850mg every 8 hours. * Ordered repeat CT head. Cannot get repeat MRI Brain since patient in on ventilator (No MRI Compatible). * MRI of the brain revealed no acute ischemia. Degenerative and remote ischemic change. Mild right mastoiditis. I personally reviewed MRI of the brain and agree with the findings. * EEG performed on 04/18/2022 was abnormal due to background slowing of moderate to severe degree, but doesn't some diffuse, persistent triphasic waves seen in bihemispheric region. This is suggestive of generalized cerebral dysfunction as can be seen with toxic metabolic encephalopathy. Clinical correlation and follow-up EEG recommended. The triphasic waves frequently can be seen with hepatic encephalopathy. Clinical correlation recommended. No definitive epileptiform activity seen. * Because of severely abnormal EEG, patient started on Keppra 500 mg twice a day by Dr. Rivera on 04/18/2022. Since the patient continues to be encephalopathic and cannot rule out underlying seizures his Keppra was increased to 750mg bid. * Gabapentin has been discontinued, therefore myoclonic jerks have improved. It was felt possibly by my colleague that could be withdrawing from Gabapentin (I feel unlikely). Low dose Gabapentin 100mg bid is started * If possible try to avoid narcoits, opiates or sedation which can affect patient mentation/neurological examination. * ID is on board * Orthopedic team is on board * We'll defer the rest of the medical management to primary team. * Condition is very guarded. * Pending to be transferred for detention EEG (since continues to be altered and rule out any seizure not detected on routine EEG's). The plan is discussed with primary team in length and his nurse. I also discussed the plan with his and his son (via phone). Harsha Kern M.D. Neuro-Hospitalist. Time with Patient: Less than 30
--- NOTE | 2022-04-21 11:59 | CT ---
EXAMINATION TYPE: CT brain wo con CT DLP: 1164.4 mGycm, Automated exposure control for dose reduction was used. DATE OF EXAM: 04/21/2022 11:27 AM COMPARISON: None. Prior CT Brain from 04/18/2022. CLINICAL INDICATION:Male, 67 years old with history of altered mental status, TECHNIQUE: Brain: Multiple axial CT images of the brain were obtained without IV contrast. FINDINGS: Brain: Extra-axial spaces: No abnormal extra-axial fluid collections. Ventricular system: Within normal limits Cerebral parenchyma: No acute intraparenchymal hemorrhage or mass effect. The rodriguez-white junction is well differentiated. Scattered hypoattenuating areas are seen within the white matter. Cerebellum: Unremarkable. Mass effect: No evidence of midline shift. Intracranial vasculature: unremarkable Soft tissues: Normal. Calvarium/osseous structures: No depressed skull fracture. Paranasal sinuses and mastoid air cells: Mild scattered paranasal sinus disease. Visualized orbits: Orbital contents are intact. IMPRESSION: 1. No acute intracranial process. 2. Nonspecific white matter changes, likely secondary to chronic small vessel ischemic disease.
--- NOTE | 2022-04-21 12:57 | P.CNPUL ---
History of Present Illness Consult date: 04/21/22 Chief complaint: altered mental status History of present illness: Patient is a 67-year-old male, became profoundly unresponsive yesterday to the point where the patient was unable to protect his airway. I was contacted by the hospital team requesting in ICU transfer was admitted. We also intubated the patient put him on a mechanical ventilator to protect his airway. Note that the patient has been hospital for quite some time. His initial admission was on 04/06/2022. He has a progressive worsening his mentation to the point where the patient became completely unresponsive. In summary, this patient has aa past medical history of multiple myeloma and pulmonary embolism on Eliquis who presented with persistent left lower extremity cellulitis with multiple failures of outpatient therapy. Patient on admission was awake and alert and 3 and responding to questions appropriately and also able to follow complex commands.Patient was started on broad-spectrum antibiotics. Patient had a computed tomography scan of his left lower extremity that shows subcutaneous edema as well as focal area of fluid on the dorsum of the midfoot. Vascular surgery was consulted and they did debridement and drainage of the abscess on 04/07/2022. Wound cultures from the abscess grew Pseudomonas that was pansensitive so ID narrow down the antibiotics to IV cefepime. Patient had further debridement of his lower leg on 04/17/2022. The wound cultures again grew pseudomonas that was pansensitive. Infectious disease changed antibiotics to IV Zosyn.Unfortunately the patient had a complicated hospital course. Patient's mental status was worsening. It was thought that it was likely due to the pain meds versus toxic metabolic encephalopathy. All patient's sedative medicines were discontinued. Neurology was on board. Patient had MRI that was unremarkable. Patient also had 2 EEGs that were negative for epileptiform activity. Patient did have some twitching of his face as well as myoclonic jerking of his leg which neurology said is likely from toxic metabolic encephalopathy however neurology still started the patient on Keppra. Patient had an LP done on 04/20/2022 that only showed 1 PMN so unlikely to have meningitis. Cultures and cytology from the LP were sent. Since there is no improvement in patient's mental status neurology recommended high level of care for further workup as well as for a prolonged EEG. During the course of his illness, the patient also developed an acute kidney injury he was seen by nephrology. In summary, the new work of that the patient had included the following: Patient has pancytopenia Sodium is 133 and most current is 138. Most recent calcium is 8.5. Ammonia is less than 9. Vitamin B12 is 1029 Folate is more than 20. TSH: 7.510 and free T4: 2.63 Larios virus PCR was not detected that. Hepatitis panel so far is non-reactive. Patient had CT of the head on 04/11/2022 2 reported as age-related atrophy and chronic small vessel ischemic changes without acute intracranial process seen at this time. I personally reviewed the CT of the head and I agree with the impression. Patient also had MRI lumbar spine which is reported as numerous compression fraction throughout the vertebral column is noted on the computed tomography scan. Large disruptive lytic lesion suspected on T12. Cortical step-off posteriorly likely represent initial finding of pathological fracture. This appears to be likely related to metastatic or multiple myeloma. Numerous additional compression fraction most severe at T11 also likely pathological. CT thoracic and lumbar is reported as known multiple myeloma. Diffuse osteopenia. Multiple vertebral body collapse with suspected acute fracture of T12 vertebral body likely secondary due to underlying multiple myeloma lesion. MRI of the brain revealed no acute ischemia. Degenerative and remote ischemic change. Mild right mastoiditis. EEG 04/14/2022 was abnormal due to background slowing of mild to moderate degree, consistent with encephalopathy. No epileptiform activity was seen. EEG on 04/18/2022 was reported as abnormal EEG due to background slowing of moderate to severe degree with presence of diffuse, persistent triphasic waves seen in bihemispheric region. This is suggestive of generalized cerebral dysfunction as can be seen with toxic metabolic encephalopathy. Local correlation of follow-up EEG recommended. Triphasic waves are equally and can be seen with hepatic encephalopathy. No definite epileptiform activity seen. CSF: clear, colorless, 2 rbc, 1 nucleated cells, glucose is 45, protein is 9 (normal protein is 12-60). This morning, the patient is in the intensive care unit. The patient is currently intubated on a mechanical ventilator. The patient on a propofol of 50 mcg/kg per minute for sedation. This can be easily weaned off as the patient is unresponsive. The patient currently is on a mechanical ventilator on assist control mode at the rate of 16, tidal volume of 400, FiO2 of 30% with a PEEP of 5. The pH is at 7.45 with a pCO2 of 31 and pO2 of 95. Chest x-ray shows adequate expansion of both lungs. There is no evidence of any pneumothorax. The patient is afebrile. The patient remains hemodynamically stable. The patient is currently on Lovenox regarding his previous history of DVT therapeutic doses. The patient is also on Keppra for seizure prophylaxis. IV Zosyn is still on board. 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, gait dysfunction-uses walker, bilateral pedal/ankle edema, PE 08/2019, chronic low back pain, past vertebral fractures, minimal CAD, shingelles twice, past R heel wound, elevated lipids in the past, History of Any Multi-Drug Resistant Organisms: None Reported Past Surgical History: Heart Catheterization, Orthopedic Surgery Additional Past Surgical History / Comment(s): excision of uvular lesion(benign) 2009, colonoscopy, dave knee arthroscopy, rt rotator cuff sx, moles removed from back(benign), bone marrow aspiration/bx, stem cell transplant 2015, Past Anesthesia/Blood Transfusion Reactions: No Reported Reaction Past Psychological History: No Psychological Hx Reported Smoking Status: Never smoker Past Alcohol Use History: None Reported Past Drug Use History: None Reported - Past Family History Father Family Medical History: Renal Disease, Vascular Disorder Additional Family Medical History / Comment(s): aaa. Father is . Mother Family Medical History: No Reported History Additional Family Medical History / Comment(s): mom is healthy Medications and Allergies Home Medications Medication Instructions Recorded Confirmed Type Famotidine [Pepcid] 20 mg PO DAILY PRN 04/15/19 04/05/22 History Gabapentin [Neurontin] 300 mg PO TID 04/15/19 04/05/22 History dexAMETHasone 8 mg PO DIRECTED 04/15/19 04/05/22 History Acyclovir 400 mg PO BID 08/24/19 04/05/22 History Pomalyst 3mg 3 mg PO DIRECTED 08/24/19 04/05/22 History Aspirin 81 mg PO DAILY #30 chewable 08/26/19 04/05/22 Rx Apixaban [Eliquis] 5 mg PO BID 10/03/19 04/05/22 History Nitroglycerin Sl Tabs [Nitrostat] 0.4 mg SUBLINGUAL Q5M PRN 10/03/19 04/05/22 History Calcium Carbonate/Vitamin D3 1 cap PO DAILY 01/10/20 04/05/22 History [Calcium 600-Vit D3 20 Mcg (800 Iu)] Potassium Chloride ER [K-Dur 20] 20 meq PO DAILY 01/10/20 04/05/22 History Furosemide [Lasix] 20 mg PO DAILY PRN 05/31/21 04/05/22 History Acetaminophen Tab [Tylenol] 650 mg PO Q6HR PRN tab 06/03/21 04/05/22 Rx Multivitamins, Thera [Multivitamin 1 tab PO DAILY 12/16/21 04/05/22 History (formulary)] oxyCODONE HCL [oxyCODONE HCL (IR)] 10 - 20 mg PO Q4H PRN 03/25/22 04/05/22 History Cephalexin [Keflex] 500 mg PO Q6HR 1 Days #40 cap 04/03/22 04/05/22 Rx Terbinafine 1% Cream [LamISIL] 1 applic TOPICAL TID 90 Days #15 gm 04/03/22 04/05/22 Rx Allergies Allergy/AdvReac Type Severity Reaction Status Date / Time sulfamethoxazole Allergy Rash/Hives Verified 04/05/22 21:45 [From Bactrim] trimethoprim [From Bactrim] Allergy Rash/Hives Verified 04/05/22 21:45 Physical Exam Vitals: Vital Signs Temp Pulse Pulse Resp BP BP BP 04/21/22 09:00 100 16 96/71 04/21/22 08:30 98 16 93/72 04/21/22 08:00 98.4 F 101 H 16 86/71 04/21/22 07:35 04/21/22 07:30 103 H 16 87/70 04/21/22 07:00 105 H 16 96/72 04/21/22 06:45 106 H 20 98/76 04/21/22 06:30 108 H 18 104/80 04/21/22 06:15 100 F H 108 H 17 100/79 04/21/22 06:00 109 H 19 98/80 04/21/22 05:45 110 H 16 100/80 04/21/22 05:30 112 H 21 94/75 04/21/22 05:15 112 H 22 97/77 04/21/22 05:00 112 H 20 95/74 04/21/22 04:45 114 H 16 97/78 04/21/22 04:30 114 H 17 97/75 04/21/22 04:15 114 H 20 104/78 04/21/22 04:00 120 H 17 103/76 04/21/22 03:57 04/21/22 03:45 117 H 23 113/83 04/21/22 03:30 115 H 16 106/83 04/21/22 03:15 112 H 21 119/87 04/21/22 03:10 04/21/22 03:00 101 F H 111 H 20 123/89 04/21/22 02:45 110 H 21 120/86 04/21/22 02:30 109 H 19 117/83 04/21/22 02:15 108 H 20 122/88 04/21/22 02:00 105 H 21 141/88 04/21/22 01:45 102 H 20 138/93 04/21/22 01:30 104 H 18 103/84 04/21/22 01:15 109 H 16 72/54 04/21/22 01:05 04/21/22 01:00 100 F H 112 H 16 69/48 04/21/22 00:30 28 H 04/21/22 00:18 115 H 26 H 124/87 04/21/22 00:10 130 H 28 H 166/110 04/20/22 19:54 98.9 F 98 20 161/101 04/20/22 19:50 20 04/20/22 12:25 97.7 F 93 18 BP Pulse Ox FiO2 04/21/22 09:00 99 04/21/22 08:30 99 04/21/22 08:00 99 30 04/21/22 07:35 30 04/21/22 07:30 100 04/21/22 07:00 100 30 04/21/22 06:45 98 30 04/21/22 06:30 97 30 04/21/22 06:15 99 30 04/21/22 06:00 98 30 04/21/22 05:45 99 30 04/21/22 05:30 98 30 04/21/22 05:15 98 30 04/21/22 05:00 100 30 04/21/22 04:45 100 30 04/21/22 04:30 100 30 04/21/22 04:15 100 30 04/21/22 04:00 99 30 04/21/22 03:57 30 04/21/22 03:45 99 30 04/21/22 03:30 99 30 04/21/22 03:15 99 30 04/21/22 03:10 30 04/21/22 03:00 99 30 04/21/22 02:45 99 30 04/21/22 02:30 100 30 04/21/22 02:15 100 30 04/21/22 02:00 100 30 04/21/22 01:45 100 30 04/21/22 01:30 99 50 04/21/22 01:15 100 50 04/21/22 01:05 50 04/21/22 01:00 100 50 04/21/22 00:30 97 04/21/22 00:18 98 04/21/22 00:10 99 04/20/22 19:54 97 04/20/22 19:50 04/20/22 12:25 137/91 98 Intake and Output 04/20/22 04/21/22 04/21/22 22:59 06:59 14:59 Intake Total 765.481 191.6 Output Total 430 110 Balance 335.481 81.6 Intake: IV 750 75 0.9 NaCl- 250 50 Acyclovir 250 Magnesium 200 Piperacillin-Tazobactam 3 50 25 .375 gm In Sodium Chloride 0.9% 100 ml @ 25 mls/hr IVPB Q8H [facility] Rx#: [id number] Intake, IV Titration 15.481 116.6 Amount Norepinephrine 4 mg In 15.481 Sodium Chloride 0.9% 250 ml @ 0.05 MCG/KG/MIN 18. 578 mls/hr IV .[id number] [facility] Rx#:[id number] Sodium Chloride 0.9% 1, 100 000 ml @ 50 mls/hr IV . Q20H [facility] Rx#:[id number] propofoL 1,000 mg In 16.6 Empty Bag 1 bag @ 5 MCG/ KG/MIN 2.926 mls/hr IV . Q24H [facility] Rx#:[id number] Output: Gastric Drainage 70 Urine 360 110 Other: Voiding Method Diaper Indwelling Catheter Incontinent # Voids 4 # Bowel Movements 3 General: Chronically ill-appearing male, no distress, appears at stated age, obese, body mass index of 30.8. Currently on low-dose propofol at 15 mcg/kg per minute. The patient is unresponsive. The patient should be taken off the sedation and his mentation should be reevaluated. Meanwhile, the patient has a orogastric and orotracheal tube are both in place and in good location Derm: Left lower extremity dorsum scab with surrounding erythema extending to just below the knee, warm Head: atraumatic, normocephalic, symmetric Eyes: EOMI, no lid lag, anicteric sclera, pupils equal round reactive to light ENT: Nose and ears atraumatic Neck: No cervical lymphadenopathy, trachea midline, supple Mouth: no lip lesion, mucus membranes moist Cardiovascular: S1S2 reg, no murmur, positive dorsalis pedis pulse bilateral, 1+ right lower extremity pitting edema, 2+ left lower extremity pitting edema Lungs: CTA bilateral, no rhonchi, no rales, no accessory muscle use Abdominal: soft, nontender to palpation, no guarding Ext: muscle strength 4 out of 5 in all 4 extremities grossly, no gross muscle atrophy, no contractures, Neuro: Unable to do a full neurologic exam. Based on my primary examination, pupils are equal and reactive to light, no seizure activity, no facial asymmetry. He does have a positive cough and gag. Motor function is absent. The patient has not demonstrated any painful stimulation. Does not withdraw. Reflexes are equal and symmetrical. No Babinski. No clonus. Psych: Unable to perform Results - Laboratory Findings CBC and BMP: 04/21/22 03:11 04/21/22 03:11 ABG ABG pH 7.45 (7.35-7.45) 04/21/22 05:23 ABG pCO2 31 mmHg (35-45) L 04/21/22 05:23 ABG pO2 95 mmHg (83-108) 04/21/22 05:23 ABG O2 Saturation 98.5 % (94-97) H 04/21/22 05:23 PT/INR, D-dimer PT 10.8 sec (9.0-12.0) 04/07/22 10:10 INR 1.0 (<1.2) 04/07/22 10:10 Abnormal lab findings: Abnormal Labs 04/05/22 04/05/22 04/06/22 22:00 22:00 00:30 WBC RBC 3.24 L Hgb 10.1 L Hct 31.1 L MCV MCHC RDW 20.3 H Plt Count 88 L Plt Count Comment MPV Absolute Nucleated RBC Immature Gran # Neutrophils # Lymphocytes # 0.1 L Lymphocytes # (Manual) Monocytes # NRBC/100 WBC Diff Immature Plt Fraction Macrocytosis ESR ABG pH ABG pCO2 ABG pO2 ABG HCO3 ABG Total CO2 ABG O2 Saturation Sodium 133 L Potassium 5.2 H Chloride Carbon Dioxide Anion Gap BUN 21 H Creatinine 1.83 H Est GFR (CKD-EPI)AfAm Est GFR (CKD-EPI)NonAf BUN/Creatinine Ratio Glucose POC Glucose (mg/dL) Plasma Lactic Acid Jeromy Calcium Magnesium Iron TIBC Transferrin Ferritin Lactate Dehydrogenase Creatine Kinase C-Reactive Protein 20.9 H Total Protein 5.4 L Total Protein (PEP) Albumin 2.9 L Albumin (PEP) Albumin/Globulin Ratio Auaxm-9-Yedrlwnon Lirhz-1-Zrhhhluka Gamma Globulins Vitamin B12 TSH Free T4 Urine Protein 1+ H Urine Ketones Urine Blood Trace H Urine RBC Amorphous Sediment Urine Bacteria Rare H Hyaline Casts Urine Mucus CSF Total Protein IgG Complement C3 04/07/22 04/07/22 04/07/22 05:59 05:59 09:43 WBC 2.87 L RBC 3.00 L Hgb 8.8 L Hct 29.0 L MCV MCHC 30.3 L RDW 21.4 H Plt Count 75 L Plt Count Comment MPV Absolute Nucleated RBC 0.02 H Immature Gran # Neutrophils # Lymphocytes # Lymphocytes # (Manual) Monocytes # NRBC/100 WBC Diff 0.7 H Immature Plt Fraction 13.0 H Macrocytosis ESR 92 H ABG pH ABG pCO2 ABG pO2 ABG HCO3 ABG Total CO2 ABG O2 Saturation Sodium Potassium Chloride Carbon Dioxide Anion Gap BUN Creatinine 1.9 H Est GFR (CKD-EPI)AfAm 41.1 L Est GFR (CKD-EPI)NonAf 35.4 L BUN/Creatinine Ratio 8.42 L Glucose POC Glucose (mg/dL) Plasma Lactic Acid Jeromy Calcium 8.2 L Magnesium Iron TIBC Transferrin Ferritin Lactate Dehydrogenase 449 H Creatine Kinase 18 L C-Reactive Protein 23.80 H Total Protein Total Protein (PEP) Albumin Albumin (PEP) Albumin/Globulin Ratio Qtfqu-1-Rvsogxylt Ficwz-1-Cmaszptwm Gamma Globulins Vitamin B12 1029.0 H TSH Free T4 Urine Protein Urine Ketones Urine Blood Urine RBC Amorphous Sediment Urine Bacteria Hyaline Casts Urine Mucus CSF Total Protein IgG Complement C3 224.0 H 04/07/22 04/07/22 04/07/22 09:43 09:43 09:49 WBC 3.1 L RBC 3.16 L Hgb 10.0 L Hct 30.8 L MCV MCHC RDW 19.6 H Plt Count 104 L Plt Count Comment MPV Absolute Nucleated RBC Immature Gran # Neutrophils # Lymphocytes # 0.1 L Lymphocytes # (Manual) Monocytes # NRBC/100 WBC Diff Immature Plt Fraction Macrocytosis ESR ABG pH ABG pCO2 ABG pO2 ABG HCO3 ABG Total CO2 ABG O2 Saturation Sodium Potassium Chloride Carbon Dioxide Anion Gap BUN Creatinine Est GFR (CKD-EPI)AfAm Est GFR (CKD-EPI)NonAf BUN/Creatinine Ratio Glucose POC Glucose (mg/dL) Plasma Lactic Acid Jeromy Calcium Magnesium Iron TIBC Transferrin Ferritin Lactate Dehydrogenase Creatine Kinase C-Reactive Protein Total Protein Total Protein (PEP) 5.3 L Albumin Albumin (PEP) 2.52 L Albumin/Globulin Ratio Vdoum-8-Jkghfykvy 0.61 H Hztvp-3-Gfstwenld 1.10 H Gamma Globulins 0.24 L Vitamin B12 TSH Free T4 Urine Protein Urine Ketones Urine Blood Urine RBC Amorphous Sediment Urine Bacteria Hyaline Casts Urine Mucus CSF Total Protein IgG 274.0 L Complement C3 04/08/22 04/08/22 04/08/22 05:42 05:42 05:42 WBC 2.53 L RBC 2.65 L Hgb 7.7 L Hct 25.5 L MCV MCHC 30.2 L RDW 20.8 H Plt Count 73 L Plt Count Comment MPV 12.7 H Absolute Nucleated RBC 0.02 H Immature Gran # 0.05 H Neutrophils # Lymphocytes # 0.06 L Lymphocytes # (Manual) Monocytes # NRBC/100 WBC Diff 0.8 H Immature Plt Fraction 12.6 H Macrocytosis ESR ABG pH ABG pCO2 ABG pO2 ABG HCO3 ABG Total CO2 ABG O2 Saturation Sodium 134 L Potassium 3.3 L Chloride Carbon Dioxide Anion Gap BUN Creatinine 2.02 H Est GFR (CKD-EPI)AfAm Est GFR (CKD-EPI)NonAf BUN/Creatinine Ratio Glucose POC Glucose (mg/dL) Plasma Lactic Acid Jeromy Calcium 7.7 L Magnesium Iron 43 L TIBC 202 L Transferrin 144.0 L Ferritin 688.0 H Lactate Dehydrogenase Creatine Kinase C-Reactive Protein Total Protein 4.4 L Total Protein (PEP) Albumin 2.4 L Albumin (PEP) Albumin/Globulin Ratio Npeps-5-Ryznoludg Jdiou-8-Knlgtfwlj Gamma Globulins Vitamin B12 TSH Free T4 Urine Protein Urine Ketones Urine Blood Urine RBC Amorphous Sediment Urine Bacteria Hyaline Casts Urine Mucus CSF Total Protein IgG Complement C3 04/08/22 04/08/22 04/09/22 14:56 22:09 05:54 WBC 2.1 L 2.55 L RBC 2.64 L 2.75 L Hgb 8.1 L D 8.1 L Hct 25.6 L 26.0 L MCV MCHC 31.2 L RDW 19.3 H 20.6 H Plt Count 75 L 87 L Plt Count Comment MPV Absolute Nucleated RBC 0.05 H Immature Gran # Neutrophils # Lymphocytes # Lymphocytes # (Manual) Monocytes # NRBC/100 WBC Diff 2.0 H Immature Plt Fraction Macrocytosis ESR ABG pH ABG pCO2 ABG pO2 ABG HCO3 ABG Total CO2 ABG O2 Saturation Sodium Potassium Chloride Carbon Dioxide Anion Gap BUN Creatinine Est GFR (CKD-EPI)AfAm Est GFR (CKD-EPI)NonAf BUN/Creatinine Ratio Glucose POC Glucose (mg/dL) 123 H Plasma Lactic Acid Jeromy Calcium Magnesium Iron TIBC Transferrin Ferritin Lactate Dehydrogenase Creatine Kinase C-Reactive Protein Total Protein Total Protein (PEP) Albumin Albumin (PEP) Albumin/Globulin Ratio Pchwq-1-Govwjbaxc Sjwnx-6-Tbjjihcdc Gamma Globulins Vitamin B12 TSH Free T4 Urine Protein Urine Ketones Urine Blood Urine RBC Amorphous Sediment Urine Bacteria Hyaline Casts Urine Mucus CSF Total Protein IgG Complement C3 04/09/22 04/10/22 04/10/22 05:54 09:01 09:01 WBC 2.2 L RBC 2.71 L Hgb 8.6 L Hct 26.7 L MCV MCHC RDW 20.0 H Plt Count 92 L Plt Count Comment MPV Absolute Nucleated RBC Immature Gran # Neutrophils # Lymphocytes # Lymphocytes # (Manual) Monocytes # NRBC/100 WBC Diff Immature Plt Fraction Macrocytosis ESR ABG pH ABG pCO2 ABG pO2 ABG HCO3 ABG Total CO2 ABG O2 Saturation Sodium 133 L 136 L Potassium 3.1 L Chloride Carbon Dioxide 21 L Anion Gap BUN Creatinine 2.19 H 1.98 H Est GFR (CKD-EPI)AfAm Est GFR (CKD-EPI)NonAf BUN/Creatinine Ratio Glucose 101 H 136 H POC Glucose (mg/dL) Plasma Lactic Acid Jeromy Calcium 8.1 L 8.2 L Magnesium Iron TIBC Transferrin Ferritin Lactate Dehydrogenase Creatine Kinase C-Reactive Protein Total Protein 5.4 L Total Protein (PEP) Albumin 2.6 L Albumin (PEP) Albumin/Globulin Ratio Zeebu-7-Hjpwbafus Uybpv-9-Qnulunshd Gamma Globulins Vitamin B12 TSH Free T4 Urine Protein Urine Ketones Urine Blood Urine RBC Amorphous Sediment Urine Bacteria Hyaline Casts Urine Mucus CSF Total Protein IgG Complement C3 04/10/22 04/11/22 04/11/22 20:25 06:38 06:38 WBC 2.44 L RBC 2.67 L Hgb 7.9 L Hct 25.7 L MCV MCHC 30.7 L RDW 20.4 H Plt Count 86 L Plt Count Comment MPV Absolute Nucleated RBC 0.08 H Immature Gran # 0.11 H Neutrophils # 1.62 L Lymphocytes # 0.12 L Lymphocytes # (Manual) Monocytes # NRBC/100 WBC Diff 3.3 H Immature Plt Fraction Macrocytosis ESR ABG pH ABG pCO2 ABG pO2 ABG HCO3 ABG Total CO2 ABG O2 Saturation Sodium Potassium 3.0 L Chloride Carbon Dioxide Anion Gap BUN Creatinine 2.0 H Est GFR (CKD-EPI)AfAm 38.6 L Est GFR (CKD-EPI)NonAf 33.3 L BUN/Creatinine Ratio 5.70 L Glucose POC Glucose (mg/dL) 161 H Plasma Lactic Acid Jeromy Calcium 8.4 L Magnesium Iron TIBC Transferrin Ferritin Lactate Dehydrogenase Creatine Kinase C-Reactive Protein Total Protein 5.2 L Total Protein (PEP) Albumin 2.7 L Albumin (PEP) Albumin/Globulin Ratio 1.08 L Nugpq-3-Xlbuzwjmi Axztb-8-Noktpclyu Gamma Globulins Vitamin B12 TSH Free T4 Urine Protein Urine Ketones Urine Blood Urine RBC Amorphous Sediment Urine Bacteria Hyaline Casts Urine Mucus CSF Total Protein IgG Complement C3 04/12/22 04/12/22 04/12/22 06:05 06:05 13:57 WBC 2.8 L RBC 2.87 L Hgb 9.1 L Hct 27.9 L MCV MCHC RDW 19.7 H Plt Count 93 L Plt Count Comment MPV Absolute Nucleated RBC Immature Gran # Neutrophils # Lymphocytes # Lymphocytes # (Manual) Monocytes # NRBC/100 WBC Diff Immature Plt Fraction Macrocytosis ESR ABG pH ABG pCO2 ABG pO2 ABG HCO3 ABG Total CO2 ABG O2 Saturation Sodium Potassium Chloride 108 H Carbon Dioxide Anion Gap BUN Creatinine 1.74 H Est GFR (CKD-EPI)AfAm Est GFR (CKD-EPI)NonAf BUN/Creatinine Ratio Glucose POC Glucose (mg/dL) Plasma Lactic Acid Jeromy Calcium Magnesium Iron TIBC Transferrin Ferritin Lactate Dehydrogenase Creatine Kinase C-Reactive Protein Total Protein 5.6 L Total Protein (PEP) Albumin 2.7 L Albumin (PEP) Albumin/Globulin Ratio Ozzfi-3-Foewmtebh Simjq-5-Nlmhbfrdn Gamma Globulins Vitamin B12 TSH 7.510 H Free T4 2.63 H Urine Protein Urine Ketones Urine Blood Urine RBC Amorphous Sediment Urine Bacteria Hyaline Casts Urine Mucus CSF Total Protein IgG Complement C3 04/13/22 04/13/22 04/13/22 06:16 06:16 06:16 WBC 2.3 L RBC 2.80 L Hgb 8.7 L Hct 27.3 L MCV MCHC RDW 20.4 H Plt Count 94 L Plt Count Comment MPV Absolute Nucleated RBC Immature Gran # Neutrophils # Lymphocytes # Lymphocytes # (Manual) Monocytes # NRBC/100 WBC Diff Immature Plt Fraction Macrocytosis ESR ABG pH ABG pCO2 ABG pO2 ABG HCO3 ABG Total CO2 ABG O2 Saturation Sodium Potassium 3.0 L Chloride Carbon Dioxide Anion Gap BUN Creatinine 1.81 H 1.81 H Est GFR (CKD-EPI)AfAm Est GFR (CKD-EPI)NonAf BUN/Creatinine Ratio Glucose POC Glucose (mg/dL) Plasma Lactic Acid Jeromy Calcium Magnesium Iron TIBC Transferrin Ferritin Lactate Dehydrogenase Creatine Kinase C-Reactive Protein Total Protein Total Protein (PEP) Albumin Albumin (PEP) Albumin/Globulin Ratio Muygk-7-Bwrjblssn Iszrb-2-Yptymlsgn Gamma Globulins Vitamin B12 TSH Free T4 Urine Protein Urine Ketones Urine Blood Urine RBC Amorphous Sediment Urine Bacteria Hyaline Casts Urine Mucus CSF Total Protein IgG Complement C3 04/14/22 04/15/22 04/16/22 05:37 21:25 05:26 WBC 2.36 L RBC 2.57 L Hgb 7.8 L Hct 25.6 L MCV 99.6 H MCHC 30.5 L RDW 22.9 H Plt Count 72 L Plt Count Comment DECREASED A MPV Absolute Nucleated RBC 0.02 H Immature Gran # Neutrophils # 1.38 L Lymphocytes # 0.21 L Lymphocytes # (Manual) Monocytes # NRBC/100 WBC Diff 0.8 H Immature Plt Fraction 14.3 H Macrocytosis ESR ABG pH 7.48 H ABG pCO2 33 L ABG pO2 81 L ABG HCO3 ABG Total CO2 25 H ABG O2 Saturation 98.0 H Sodium Potassium 3.3 L Chloride Carbon Dioxide Anion Gap BUN Creatinine 1.83 H Est GFR (CKD-EPI)AfAm Est GFR (CKD-EPI)NonAf BUN/Creatinine Ratio Glucose POC Glucose (mg/dL) Plasma Lactic Acid Jeromy Calcium Magnesium Iron TIBC Transferrin Ferritin Lactate Dehydrogenase Creatine Kinase C-Reactive Protein Total Protein Total Protein (PEP) Albumin Albumin (PEP) Albumin/Globulin Ratio Eawqa-4-Ghnlvlsus Hwxzh-6-Zpbzdsdog Gamma Globulins Vitamin B12 TSH Free T4 Urine Protein Urine Ketones Urine Blood Urine RBC Amorphous Sediment Urine Bacteria Hyaline Casts Urine Mucus CSF Total Protein IgG Complement C3 04/16/22 04/17/22 04/18/22 05:26 06:58 06:44 WBC RBC Hgb Hct MCV MCHC RDW Plt Count Plt Count Comment MPV Absolute Nucleated RBC Immature Gran # Neutrophils # Lymphocytes # Lymphocytes # (Manual) Monocytes # NRBC/100 WBC Diff Immature Plt Fraction Macrocytosis ESR ABG pH ABG pCO2 ABG pO2 ABG HCO3 ABG Total CO2 ABG O2 Saturation Sodium Potassium 3.3 L 3.3 L Chloride Carbon Dioxide Anion Gap 9.40 L BUN Creatinine 1.9 H 1.9 H 1.9 H Est GFR (CKD-EPI)AfAm 41.1 L 41.1 L 40.6 L Est GFR (CKD-EPI)NonAf 35.4 L 35.4 L 35.0 L BUN/Creatinine Ratio 5.26 L 5.26 L 5.83 L Glucose POC Glucose (mg/dL) Plasma Lactic Acid Jeromy Calcium 8.5 L Magnesium Iron TIBC Transferrin Ferritin Lactate Dehydrogenase Creatine Kinase C-Reactive Protein Total Protein Total Protein (PEP) Albumin Albumin (PEP) Albumin/Globulin Ratio Lnfbf-5-Omaasjycj Fvnbu-1-Eynxmsznq Gamma Globulins Vitamin B12 TSH Free T4 Urine Protein Urine Ketones Urine Blood Urine RBC Amorphous Sediment Urine Bacteria Hyaline Casts Urine Mucus CSF Total Protein IgG Complement C3 04/18/22 04/19/22 04/19/22 06:52 06:23 06:23 WBC 3.97 L 3.43 L RBC 3.14 L 2.77 L Hgb 9.6 L 8.5 L Hct 31.2 L 27.4 L MCV 99.4 H 98.9 H MCHC 30.8 L 31.0 L RDW 23.3 H 23.7 H Plt Count 93 L 95 L Plt Count Comment MPV Absolute Nucleated RBC 0.02 H 0.02 H Immature Gran # Neutrophils # Lymphocytes # 0.29 L 0.28 L Lymphocytes # (Manual) Monocytes # 1.02 H NRBC/100 WBC Diff 0.5 H 0.6 H Immature Plt Fraction Macrocytosis ESR ABG pH ABG pCO2 ABG pO2 ABG HCO3 ABG Total CO2 ABG O2 Saturation Sodium Potassium 3.4 L Chloride Carbon Dioxide Anion Gap BUN Creatinine 1.9 H Est GFR (CKD-EPI)AfAm 41.1 L Est GFR (CKD-EPI)NonAf 35.4 L BUN/Creatinine Ratio 5.89 L Glucose POC Glucose (mg/dL) Plasma Lactic Acid Jeromy Calcium 8.2 L Magnesium Iron TIBC Transferrin Ferritin Lactate Dehydrogenase Creatine Kinase C-Reactive Protein Total Protein Total Protein (PEP) Albumin Albumin (PEP) Albumin/Globulin Ratio Twdfj-4-Eyvogriqg Dnlgt-5-Fvwtycggc Gamma Globulins Vitamin B12 TSH Free T4 Urine Protein Urine Ketones Urine Blood Urine RBC Amorphous Sediment Urine Bacteria Hyaline Casts Urine Mucus CSF Total Protein IgG Complement C3 04/20/22 04/20/22 04/20/22 04:25 04:25 11:45 WBC 3.98 L RBC 2.67 L Hgb 8.0 L Hct 26.6 L MCV 99.6 H MCHC 30.1 L RDW 23.6 H Plt Count 99 L Plt Count Comment MPV 13.4 H Absolute Nucleated RBC Immature Gran # Neutrophils # Lymphocytes # 0.36 L Lymphocytes # (Manual) Monocytes # NRBC/100 WBC Diff Immature Plt Fraction Macrocytosis ESR ABG pH ABG pCO2 ABG pO2 ABG HCO3 ABG Total CO2 ABG O2 Saturation Sodium Potassium Chloride 111 H Carbon Dioxide Anion Gap BUN Creatinine 1.9 H Est GFR (CKD-EPI)AfAm 42.1 L Est GFR (CKD-EPI)NonAf 36.4 L BUN/Creatinine Ratio 5.75 L Glucose POC Glucose (mg/dL) Plasma Lactic Acid Jeromy Calcium 8.0 L Magnesium Iron TIBC Transferrin Ferritin Lactate Dehydrogenase Creatine Kinase C-Reactive Protein Total Protein Total Protein (PEP) Albumin Albumin (PEP) Albumin/Globulin Ratio Ouihd-3-Wygmovdio Uxxdx-1-Xcdrwyfau Gamma Globulins Vitamin B12 TSH Free T4 Urine Protein Urine Ketones Urine Blood Urine RBC Amorphous Sediment Urine Bacteria Hyaline Casts Urine Mucus CSF Total Protein 91 H IgG Complement C3 04/21/22 04/21/22 04/21/22 00:18 00:18 00:18 WBC RBC 3.06 L Hgb 9.9 L Hct 31.9 L MCV 104.2 H D MCHC RDW 21.4 H Plt Count Plt Count Comment MPV Absolute Nucleated RBC Immature Gran # Neutrophils # Lymphocytes # Lymphocytes # (Manual) Monocytes # NRBC/100 WBC Diff Immature Plt Fraction Macrocytosis Marked A ESR ABG pH ABG pCO2 ABG pO2 ABG HCO3 ABG Total CO2 ABG O2 Saturation Sodium Potassium Chloride 113 H Carbon Dioxide 20 L Anion Gap BUN Creatinine 1.91 H Est GFR (CKD-EPI)AfAm Est GFR (CKD-EPI)NonAf BUN/Creatinine Ratio Glucose 102 H POC Glucose (mg/dL) Plasma Lactic Acid Jeromy 2.6 H* Calcium 7.9 L Magnesium Iron TIBC Transferrin Ferritin Lactate Dehydrogenase Creatine Kinase C-Reactive Protein Total Protein Total Protein (PEP) Albumin Albumin (PEP) Albumin/Globulin Ratio Piuwj-2-Lxknwgscc Vyqcw-6-Ljvohvncx Gamma Globulins Vitamin B12 TSH Free T4 Urine Protein Urine Ketones Urine Blood Urine RBC Amorphous Sediment Urine Bacteria Hyaline Casts Urine Mucus CSF Total Protein IgG Complement C3 04/21/22 04/21/22 04/21/22 00:25 01:12 01:33 WBC RBC Hgb Hct MCV MCHC RDW Plt Count Plt Count Comment MPV Absolute Nucleated RBC Immature Gran # Neutrophils # Lymphocytes # Lymphocytes # (Manual) Monocytes # NRBC/100 WBC Diff Immature Plt Fraction Macrocytosis ESR ABG pH ABG pCO2 31 L ABG pO2 122 H 134 H ABG HCO3 19 L ABG Total CO2 ABG O2 Saturation 99.2 H 99.7 H Sodium Potassium Chloride Carbon Dioxide Anion Gap BUN Creatinine Est GFR (CKD-EPI)AfAm Est GFR (CKD-EPI)NonAf BUN/Creatinine Ratio Glucose POC Glucose (mg/dL) Plasma Lactic Acid Jeromy Calcium Magnesium Iron TIBC Transferrin Ferritin Lactate Dehydrogenase Creatine Kinase C-Reactive Protein Total Protein Total Protein (PEP) Albumin Albumin (PEP) Albumin/Globulin Ratio Dcaiu-0-Uvhmandil Bmwbh-1-Jaxjxyiib Gamma Globulins Vitamin B12 TSH Free T4 Urine Protein 1+ H Urine Ketones 1+ H Urine Blood Moderate H Urine RBC 6 H Amorphous Sediment Rare H Urine Bacteria Hyaline Casts 14 H Urine Mucus Rare H CSF Total Protein IgG Complement C3 04/21/22 04/21/22 04/21/22 03:11 03:11 03:11 WBC RBC 2.97 L Hgb 9.6 L Hct 31.0 L MCV 104.5 H MCHC RDW 21.8 H Plt Count 110 L Plt Count Comment MPV Absolute Nucleated RBC Immature Gran # Neutrophils # Lymphocytes # Lymphocytes # (Manual) 0.70 L Monocytes # NRBC/100 WBC Diff Immature Plt Fraction Macrocytosis Marked A ESR ABG pH ABG pCO2 ABG pO2 ABG HCO3 ABG Total CO2 ABG O2 Saturation Sodium Potassium 3.4 L Chloride 114 H Carbon Dioxide 21 L Anion Gap BUN Creatinine 1.87 H Est GFR (CKD-EPI)AfAm Est GFR (CKD-EPI)NonAf BUN/Creatinine Ratio Glucose POC Glucose (mg/dL) Plasma Lactic Acid Jeromy 2.7 H* Calcium 7.6 L Magnesium 1.5 L Iron TIBC Transferrin Ferritin Lactate Dehydrogenase Creatine Kinase C-Reactive Protein Total Protein 4.8 L Total Protein (PEP) Albumin 2.4 L Albumin (PEP) Albumin/Globulin Ratio Uwruc-0-Fdxhdiwds Ohrpx-3-Alrybetli Gamma Globulins Vitamin B12 TSH Free T4 Urine Protein Urine Ketones Urine Blood Urine RBC Amorphous Sediment Urine Bacteria Hyaline Casts Urine Mucus CSF Total Protein IgG Complement C3 04/21/22 04/21/22 05:23 06:43 WBC RBC Hgb Hct MCV MCHC RDW Plt Count Plt Count Comment MPV Absolute Nucleated RBC Immature Gran # Neutrophils # Lymphocytes # Lymphocytes # (Manual) Monocytes # NRBC/100 WBC Diff Immature Plt Fraction Macrocytosis ESR ABG pH ABG pCO2 31 L ABG pO2 ABG HCO3 ABG Total CO2 ABG O2 Saturation 98.5 H Sodium Potassium Chloride Carbon Dioxide Anion Gap BUN Creatinine Est GFR (CKD-EPI)AfAm Est GFR (CKD-EPI)NonAf BUN/Creatinine Ratio Glucose POC Glucose (mg/dL) Plasma Lactic Acid Jeromy 2.2 H* Calcium Magnesium Iron TIBC Transferrin Ferritin Lactate Dehydrogenase Creatine Kinase C-Reactive Protein Total Protein Total Protein (PEP) Albumin Albumin (PEP) Albumin/Globulin Ratio Fnsgp-9-Tcnoopssc Qvbzn-8-Sxdcgdrks Gamma Globulins Vitamin B12 TSH Free T4 Urine Protein Urine Ketones Urine Blood Urine RBC Amorphous Sediment Urine Bacteria Hyaline Casts Urine Mucus CSF Total Protein IgG Complement C3 - Diagnostic Findings Chest x-ray: image reviewed Assessment and Plan Plan: altered mental status, unresponsive, exact etiology is not clear. Extensive workup has been done as mentioned and the patient has had progressive decline in the mentation. The patient was supposed to get transferred to [facility] for long-term EEG monitoring. Unable to transfer yesterday because of concerns of transfers pressure with his inability to protect airway. The patient accordingly was intubated and placed on a mechanical ventilator. Currently, the patient is sedated with a low dose propofol. The patient should be able to come off the propofol and his mental status is to be assessed. I should've the patient is having any seizure activity. There is some left facial twitching and neurologist on the case and the patient is currently on Keppra. Acute respiratory failure , hypoxic in nature and the patient was intubated and placed on mechanical ventilator due to concerns of inability to protect airway. Left lower extremity cellulitis with abscess, post debridement and the patient is currently on IV Zosyn Multiple myeloma Pancytopenia due to chemotherapy History of pulmonary embolism, maintained on Lovenox Elevated TSH and free T4 Thoracic T 12 fracture, multiple vertebral fractures due to MM, lumbar spine neuroforaminal stenosis, intractable pain on chronic pain DUNCAN on CKD stage III due to ATN Dyslipidemia Gait dysfunction Coronary artery disease Plan Keep the patient on acyclovir for any potential HSV infection of the brain. Awaiting HSV by PCR. Also awaiting other blood work including cryptococcal antigens and anti- NMDA anti-bodies Continue acyclovir Keep the patient on Keppra The plan is to transfer this patient again to [facility] for further neuro evaluation Continue ventilator support The patient IV Zosyn Keep the patient on Lovenox Initiate enteral feeding for nutritional support Present medication was reviewed. Everything is appropriate. We'll give the patient sedation holiday and assess the patient's mental status. We'll continue to follow. Time with Patient: Greater than 30
--- NOTE | 2022-04-21 17:29 | P.PN ---
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 A team was called. Patient was intubated and taken to the ICU. Patient currently intubated and on propofol drip. Case was discussed with neurology. Patient had a repeat CT head that was negative for acute bleed. I updated [facility] about the transfer. Now awaiting for ICU to ICU transfer. Objective - Vital Signs Vital signs: Vital Signs Temp 98.5 F 04/21/22 16:00 Pulse 95 04/21/22 17:00 Resp 20 04/21/22 17:00 BP 108/81 04/21/22 17:00 Pulse Ox 98 04/21/22 17:00 FiO2 30 04/21/22 16:00 Intake & Output 04/20/22 04/21/22 04/21/22 18:59 06:59 18:59 Intake Total 844.883 4701.267 Output Total 430 365 Balance 335.481 837.267 Weight 97.522 kg Intake: IV 750 175 0.9 NaCl- 250 50 Acyclovir 250 Magnesium 200 Piperacillin-Tazobactam 3 50 125 .375 gm In Sodium Chloride 0.9% 100 ml @ 25 mls/hr IVPB Q8H NNAMDI Rx#: [id number] Intake, IV Titration 15.481 947.267 Amount Acyclovir Sodium 850 mg 250 In Sodium Chloride 0.9% 250 ml @ 270 mls/hr IVPB Q12H NNAMDI Rx#:[id number] Norepinephrine 4 mg In 15.481 Sodium Chloride 0.9% 250 ml @ 0.05 MCG/KG/MIN 18. 578 mls/hr IV .[id number] NNAMDI Rx#:[id number] Sodium Chloride 0.9% 1, 500 000 ml @ 50 mls/hr IV . Q20H NNAMDI Rx#:[id number] levETIRAcetam IV 750 mg 100 In Sodium Chloride 0.9% 100 ml @ 400 mls/hr IVPB Q12HR NNAMDI Rx#:[id number] propofoL 1,000 mg In 97.267 Empty Bag 1 bag @ 5 MCG/ KG/MIN 2.926 mls/hr IV . 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 as patient is intubated and sedated Psych -unable to assess as patient is intubated and sedated - Labs CBC & Chem 7: 04/21/22 03:11 04/21/22 03:11 Labs: Abnormal Lab Results - Last 24 Hours (Table) 04/21/22 04/21/22 04/21/22 Range/Units 00:18 00:18 00:18 RBC 3.06 L (4.30-5.90) m/uL Hgb 9.9 L (13.0-17.5) gm/dL Hct 31.9 L (39.0-53.0) % MCV 104.2 H D (80.0-100.0) fL RDW 21.4 H (11.5-15.5) % Plt Count (150-450) k/uL Lymphocytes # (Manual) (1.0-4.8) k/uL Macrocytosis Marked A ABG pCO2 (35-45) mmHg ABG pO2 (83-108) mmHg ABG HCO3 (21-25) mmol/L ABG O2 Saturation (94-97) % Potassium (3.5-5.1) mmol/L Chloride 113 H (98-107) mmol/L Carbon Dioxide 20 L (22-30) mmol/L Creatinine 1.91 H (0.66-1.25) mg/dL Glucose 102 H (74-99) mg/dL Plasma Lactic Acid Jeromy 2.6 H* (0.7-2.0) mmol/L Calcium 7.9 L (8.4-10.2) mg/dL Magnesium (1.6-2.3) mg/dL Total Protein (6.3-8.2) g/dL Albumin (3.5-5.0) g/dL Urine Protein (Negative) Urine Ketones (Negative) Urine Blood (Negative) Urine RBC (0-5) /hpf Amorphous Sediment (None) /hpf Hyaline Casts (0-2) /lpf Urine Mucus (None) /hpf 04/21/22 04/21/22 04/21/22 Range/Units 00:25 01:12 01:33 RBC (4.30-5.90) m/uL Hgb (13.0-17.5) gm/dL Hct (39.0-53.0) % MCV (80.0-100.0) fL RDW (11.5-15.5) % Plt Count (150-450) k/uL Lymphocytes # (Manual) (1.0-4.8) k/uL Macrocytosis ABG pCO2 31 L (35-45) mmHg ABG pO2 122 H 134 H (83-108) mmHg ABG HCO3 19 L (21-25) mmol/L ABG O2 Saturation 99.2 H 99.7 H (94-97) % Potassium (3.5-5.1) mmol/L Chloride (98-107) mmol/L Carbon Dioxide (22-30) mmol/L Creatinine (0.66-1.25) mg/dL Glucose (74-99) mg/dL Plasma Lactic Acid Jeromy (0.7-2.0) mmol/L Calcium (8.4-10.2) mg/dL Magnesium (1.6-2.3) mg/dL Total Protein (6.3-8.2) g/dL Albumin (3.5-5.0) g/dL Urine Protein 1+ H (Negative) Urine Ketones 1+ H (Negative) Urine Blood Moderate H (Negative) Urine RBC 6 H (0-5) /hpf Amorphous Sediment Rare H (None) /hpf Hyaline Casts 14 H (0-2) /lpf Urine Mucus Rare H (None) /hpf 04/21/22 04/21/22 04/21/22 Range/Units 03:11 03:11 03:11 RBC 2.97 L (4.30-5.90) m/uL Hgb 9.6 L (13.0-17.5) gm/dL Hct 31.0 L (39.0-53.0) % MCV 104.5 H (80.0-100.0) fL RDW 21.8 H (11.5-15.5) % Plt Count 110 L (150-450) k/uL Lymphocytes # (Manual) 0.70 L (1.0-4.8) k/uL Macrocytosis Marked A ABG pCO2 (35-45) mmHg ABG pO2 (83-108) mmHg ABG HCO3 (21-25) mmol/L ABG O2 Saturation (94-97) % Potassium 3.4 L (3.5-5.1) mmol/L Chloride 114 H (98-107) mmol/L Carbon Dioxide 21 L (22-30) mmol/L Creatinine 1.87 H (0.66-1.25) mg/dL Glucose (74-99) mg/dL Plasma Lactic Acid Jeromy 2.7 H* (0.7-2.0) mmol/L Calcium 7.6 L (8.4-10.2) mg/dL Magnesium 1.5 L (1.6-2.3) mg/dL Total Protein 4.8 L (6.3-8.2) g/dL Albumin 2.4 L (3.5-5.0) g/dL Urine Protein (Negative) Urine Ketones (Negative) Urine Blood (Negative) Urine RBC (0-5) /hpf Amorphous Sediment (None) /hpf Hyaline Casts (0-2) /lpf Urine Mucus (None) /hpf 04/21/22 04/21/22 Range/Units 05:23 06:43 RBC (4.30-5.90) m/uL Hgb (13.0-17.5) gm/dL Hct (39.0-53.0) % MCV (80.0-100.0) fL RDW (11.5-15.5) % Plt Count (150-450) k/uL Lymphocytes # (Manual) (1.0-4.8) k/uL Macrocytosis ABG pCO2 31 L (35-45) mmHg ABG pO2 (83-108) mmHg ABG HCO3 (21-25) mmol/L ABG O2 Saturation 98.5 H (94-97) % Potassium (3.5-5.1) mmol/L Chloride (98-107) mmol/L Carbon Dioxide (22-30) mmol/L Creatinine (0.66-1.25) mg/dL Glucose (74-99) mg/dL Plasma Lactic Acid Jeromy 2.2 H* (0.7-2.0) mmol/L Calcium (8.4-10.2) mg/dL Magnesium (1.6-2.3) mg/dL Total Protein (6.3-8.2) g/dL Albumin (3.5-5.0) g/dL Urine Protein (Negative) Urine Ketones (Negative) Urine Blood (Negative) Urine RBC (0-5) /hpf Amorphous Sediment (None) /hpf Hyaline Casts (0-2) /lpf Urine Mucus (None) /hpf Microbiology - Last 24 Hours (Table) 04/21/22 03:10 Sputum Culture - Preliminary Sputum 04/20/22 11:45 CSF Gram Stain - Preliminary Cerebral Spinal Fluid CSF Culture - Preliminary 04/17/22 15:39 Gram Stain - Final Leg - Left Wound Culture - Final Pseudomonas aeruginosa Assessment and Plan Assessment: Ventilator dependent respiratory failure -Secondary to worsening mental status -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 Patient had further debridement done on 04/17/2020 - vanco/cefepime discontinued and stared on cefepime by ID. cefepime discontinued and patient started on IV Zosyn on 04/17/2022 as it was thought that the cefepime could be contributing to his encephalopathy - s/p midline as patient will likely need prolonged antibiotics - wound care per vascular - ID following - Wound culture from initial debridement grew Pseudomonas. repeat wound cultures done on 04/17/2022 that also grew Pseudomonas Multiple myeloma Pancytopenia - oncology recs - CBC stable, continue to monitor Acute toxic metabolic encephalopathy likely due to opioids and gabapentin versus infection above versus other etiology - Ammonia level normal - stopped opitates and gabapentin and resume acetaminophen for pain. Neurology was started gabapentin to prevent withdrawal. - Neurology following, had brain MRI which was ok, EEG shwoing generalized slowing consistent with toxic metabolic encephalopathy. Neurology also started patient on Keppra -I spoke with the other provider who was taking care of the patient at the beg inning of his hospital course who said patient was awake and alert and responding. This is clearly not patient's baseline. -S/p LP on 04/20/2022 sent for cytology as well as other routine labs. Cytology did show elevated protein. Infectious disease started the patient on acyclovir. We'll send for cryptococcal antigen and also NMDA receptor antigen -I discussed the case with infectious disease and neurology History of pulmonary embolism -Patient not taking Eliquis due encephalopathy. -Will start Lovenox. Elevated TSH and free T4 -Likely due to acute illness. Will need repeat labs in 6 weeks T 12 fracture, multiple vertebral fractures due to MM, lumbar spine neur oforaminal stenosis, intractable pain on chronic pain - medication changes as above. - Dr. Rubio plan at this time due to infection is LSO brace and pain control. - Dr. Hill no indication for repeat radiation. DUNCAN on CKD 3 due to ATN -Patient currently is stable around 1.8 -Nephrology following Hyponatremia, resolved - On IV fluids per nephro, cr improved, baseline around 1.8 Chronic: Prior pulmonary embolism on Eliquis Dyslipidemia Gait dysfunction Chronic low back pain Coronary artery disease General weakness PT OT -> will likely need rehab Patient accepted to him before. Awaiting for transfer DVT prophylaxis: eliquis Discussed with: patient, family, nursing Anticipated discharge: Depending on clinical course Anticipated discharge place: rehab
[2022-04-21 20:53] VITALS: TEMP 98.3
[2022-04-21 21:12] VITALS: RESP 19
[2022-04-21 23:29] VITALS: BP 128/88; PULSE 96
[2022-04-22] MEDS ORDERED: ACYCLOVIR SODIUM 850 MG in SODIUM CHLORIDE 0.9% 250 ML IVPB SCH ×2
[2022-04-22 00:21] LABS: Glucose,Whole Blood 101 mg/dL (70-110)
--- NOTE | 2022-04-22 11:44 | P.DS ---
Providers Date of admission: 04/06/22 02:41 Expected date of discharge: 04/22/22 Attending physician: Tato Devlin MD Consults: 04/06/22 01:00 Consult Physician Urgent Consulting Provider: Francois Miranda Consult Reason/Comments: le cellulitis Do you want consulting provider notified?: Yes 04/06/22 03:10 Consult Physician Urgent Consulting Provider: Luis A Mcgowan Consult Reason/Comments: Myeloma Do you want consulting provider notified?: Yes 04/06/22 09:23 Consult Physician Routine Consulting Provider: Sienna Aguilar Consult Reason/Comments: DUNCAN Do you want consulting provider notified?: Yes 04/09/22 08:45 Consult Physician Routine Consulting Provider: José Rubio Consult Reason/Comments: evaluate to see if pt candidate for kyphoplasty Do you want consulting provider notified?: Yes 04/10/22 12:08 Consult Physician Routine Consulting Provider: Gagan Hill Consult Reason/Comments: radiation? Do you want consulting provider notified?: Yes 04/12/22 09:25 Consult Physician Routine Consulting Provider: Harsha Kern Consult Reason/Comments: myoclonic jerking Do you want consulting provider notified?: Yes 04/17/22 11:17 Consult Physician Routine Consulting Provider: Toñito Ryder Consult Reason/Comments: possible new abscess left posterior calf Do you want consulting provider notified?: Already Contacted 04/17/22 14:50 Consult to Palliative Care Routine Consulting Provider: Samantha Monroy Consult Reason/Comments: establish goal of care Do you want consulting provider notified?: Yes 04/19/22 10:31 Consult to Anesthesia Routine Consulting Provider: Anesthesia,Services Consult Reason/Comments: AMS. Send for cytology and other routine labs. No AC in 48h 04/21/22 01:07 Consult Physician Stat Consulting Provider: Lisa Alvarez Consult Reason/Comments: ICU management Do you want consulting provider notified?: Already Contacted Consult Physician Stat Consulting Provider: Lisa Alvarez Consult Reason/Comments: ICU management Do you want consulting provider notified?: Already Contacted 04/21/22 01:08 Consult Physician Stat Consulting Provider: Lisa Alvarez Consult Reason/Comments: ICU management Do you want consulting provider notified?: Already Contacted [facility] Diagnosis: Left lower extremity cellulitis with abscess Multiple myeloma Pancytopenia Acute toxic metabolic encephalopathy T 12 fracture, multiple vertebral fractures due to MM, lumbar spine neuroforaminal stenosis, intractable pain on chronic pain DUNCAN on CKD 3 due to ATN Hyponatremia, resolved Prior pulmonary embolism on Dilantin Dyslipidemia Gait dysfunction Chronic low back pain Coronary artery disease Hospital Course: Patient is 67-year-old male with multiple myeloma currently undergoing chemotherapy with Dr. Mensah, prior pulmonary embolism, cellulitis, coronary artery disease, and dyslipidemia who presented to the ER with complaints of left lower extremity erythema and pain. Patient had been recently seen at the hospital and discharged on 04/03 with oral Keflex. On arrival to the ER he was febrile to 100.8, CRP was elevated at 20.9. He was admitted for treatment of left lower extremity cellulitis in the setting of chemotherapy and outpatient failure. He was started on cefepime and vancomycin. Infectious disease was consulted. Patient undewent I adn D of left foot abscess on 04/07 with vascular surgery. Nephrology was conuslted due to DUNCAN on CKD 3. Ortho spine was consulted due to worsening back pain. He was Degenerative disc disease, lumbar spine neuroforaminal stenosis and multiple vertebral compression fractures with worst one at T12. Orthospine recommends bracing at this time. Plan was for 2 weeks of IV ABX. After his MRI lumbar spine he developed worsening altered mentation. Initially was felt to be due to narcotics and these were adjusted. CT head was performed which was negative, ammonia level was negative and neurology was consulted. Patient had 2 EEGs which were negative for epileptiform activity. Due to his myoclonic jerking he was started on Keppra by neurology. He had an LP done on 04/20/22 which rules out meningitis. Cytology from LP was sent but not available at time of discharge. MRI brain demonstrated degenerative and remote ischemic changes, right mastoiditis, and no acute ischemia. continued to decline and then started having episodes of apnea. Neurology recommended transfer to a tertiary care center patient was accepted to [facility]. He was transferred on 04/21/22. I did not see this patient on discharge, I just helped create discharge summary. Patient Condition at Discharge: Serious Plan - Discharge Summary Discharge Rx Participant: Yes New Discharge Prescriptions: No Action Famotidine [Pepcid] 20 mg PO DAILY PRN PRN Reason: Heartburn Gabapentin [Neurontin] 300 mg PO TID dexAMETHasone 8 mg PO DIRECTED Acyclovir 400 mg PO BID Pomalyst 3mg 3 mg PO DIRECTED Aspirin 81 mg PO DAILY #30 chewable Apixaban [Eliquis] 5 mg PO BID Nitroglycerin Sl Tabs [Nitrostat] 0.4 mg SUBLINGUAL Q5M PRN PRN Reason: Chest Pain Potassium Chloride ER [K-Dur 20] 20 meq PO DAILY Calcium Carbonate/Vitamin D3 [Calcium 600-Vit D3 20 Mcg (800 Iu)] 1 cap PO DAILY Acetaminophen Tab [Tylenol] 650 mg PO Q6HR PRN tab PRN Reason: Mild Pain Or Fever > 100.5 Furosemide [Lasix] 20 mg PO DAILY PRN PRN Reason: Edema Multivitamins, Thera [Multivitamin (formulary)] 1 tab PO DAILY oxyCODONE HCL [oxyCODONE HCL (IR)] 10 - 20 mg PO Q4H PRN PRN Reason: Pain Cephalexin [Keflex] 500 mg PO Q6HR 1 Days #40 cap Terbinafine 1% Cream [LamISIL] 1 applic TOPICAL TID 90 Days #15 gm Discharge Medication List Famotidine [Pepcid] 20 mg PO DAILY PRN 04/15/19 [History] Gabapentin [Neurontin] 300 mg PO TID 04/15/19 [History] dexAMETHasone 8 mg PO DIRECTED 04/15/19 [History] Acyclovir 400 mg PO BID 08/24/19 [History] Pomalyst 3mg 3 mg PO DIRECTED 08/24/19 [History] Aspirin 81 mg PO DAILY #30 chewable 08/26/19 [Rx] Apixaban [Eliquis] 5 mg PO BID 10/03/19 [History] Nitroglycerin Sl Tabs [Nitrostat] 0.4 mg SUBLINGUAL Q5M PRN 10/03/19 [History] Calcium Carbonate/Vitamin D3 [Calcium 600-Vit D3 20 Mcg (800 Iu)] 1 cap PO DAILY 01/10/20 [History] Potassium Chloride ER [K-Dur 20] 20 meq PO DAILY 01/10/20 [History] Furosemide [Lasix] 20 mg PO DAILY PRN 05/31/21 [History] Acetaminophen Tab [Tylenol] 650 mg PO Q6HR PRN tab 06/03/21 [Rx] Multivitamins, Thera [Multivitamin (formulary)] 1 tab PO DAILY 12/16/21 [History] oxyCODONE HCL [oxyCODONE HCL (IR)] 10 - 20 mg PO Q4H PRN 03/25/22 [History] Cephalexin [Keflex] 500 mg PO Q6HR 1 Days #40 cap 04/03/22 [Rx] Terbinafine 1% Cream [LamISIL] 1 applic TOPICAL TID 90 Days #15 gm 04/03/22 [Rx] Follow up Appointment(s)/Referral(s): Elkin Pierson MD [Primary Care Provider] - 1-2 days [facility] [NON-STAFF] - 1 Week José Rubio DO [Doctor of Osteopathic Medicine] - 2 Weeks [facility] Visiting Nurse, [NON-STAFF] - 1 Week Jeff Avalos [NON-STAFF] - As Needed (Supplier of TLSO back brace) Discharge Disposition: OTHER INSTITUTION NOT DEFINED
[2022-04-23 12:51] LABS: IgG - CSF 4.6 mg/dL (0.0 - 3.4); IgG Synthesis Rate 1.17 mg/day (0.00 - 3.00); IgG/Albumin Index (CSF) 0.52 (0.00 - 0.77); Immunoglobulin G 664 mg/dL (700 - 1600)
--- NOTE | 2022-04-29 22:07 | P.PN ---
Subjective Progress Note Date: 04/21/22 Principal diagnosis: Left foot abscess and cellulitis Patient is a 67-year-old male presenting to the hospital with a fever and chills and left foot and leg pain swelling and redness has been diagnosed with a left foot abscess and cellulitis. Patient is status post surgical drainage of the abscess completed on 04/07/2022 with a repeat drainage on 04/17/2022 On today's evaluation that is 04/21/2022, the patient did have worsening respiratory status and the patient getting intubated, the patient's spike a fever of 101F this morning, the patient is currently on the vent and unable to provide any history no vomiting or diarrhea has been reported by the nursing sta ff Objective - Vital Signs Vital signs: Vital Signs Temp 98.2 F 04/21/22 12:00 Pulse 93 04/21/22 14:00 Resp 16 04/21/22 14:00 BP 96/67 04/21/22 14:00 Pulse Ox 99 04/21/22 14:00 FiO2 30 04/21/22 12:00 Intake & Output 04/20/22 04/21/22 04/21/22 18:59 06:59 18:59 Intake Total 045.953 5027.401 Output Total 430 270 Balance 335.481 731.401 Intake: IV 750 175 0.9 NaCl- 250 50 Acyclovir 250 Magnesium 200 Piperacillin-Tazobactam 3 50 125 .375 gm In Sodium Chloride 0.9% 100 ml @ 25 mls/hr IVPB Q8H [facility] Rx#: [id number] Intake, IV Titration 15.481 766.401 Amount Acyclovir Sodium 850 mg 250 In Sodium Chloride 0.9% 250 ml @ 270 mls/hr IVPB Q12H [facility] Rx#:[id number] Norepinephrine 4 mg In 15.481 Sodium Chloride 0.9% 250 ml @ 0.05 MCG/KG/MIN 18. 578 mls/hr IV .[id number] [facility] Rx#:[id number] Sodium Chloride 0.9% 1, 350 000 ml @ 50 mls/hr IV . Q20H [facility] Rx#:[id number] levETIRAcetam IV 750 mg 100 In Sodium Chloride 0.9% 100 ml @ 400 mls/hr IVPB Q12HR [facility] Rx#:[id number] propofoL 1,000 mg In 66.401 Empty Bag 1 bag @ 5 MCG/ KG/MIN 2.926 mls/hr IV . Q24H [facility] Rx#:[id number] Other 60 Output: Gastric Drainage 70 Urine 360 270 Other: Voiding Method Diaper Indwelling Catheter Indwelling Catheter Incontinent # Voids 4 # Bowel Movements 3 - Exam GENERAL DESCRIPTION: An elderly male intubated on the vent RESPIRATORY SYSTEM: Unlabored breathing , decreased breath sounds at bases HEART: S1 S2 regular rate and rhythm , ABDOMEN: Soft , no tenderness EXTREMITIES: Left leg and foot is currently No drainage on the dressing - Labs CBC & Chem 7: 04/21/22 03:11 04/21/22 03:11 Labs: Abnormal Lab Results - Last 24 Hours (Table) 04/21/22 04/21/22 04/21/22 Range/Units 00:18 00:18 00:18 RBC 3.06 L (4.30-5.90) m/uL Hgb 9.9 L (13.0-17.5) gm/dL Hct 31.9 L (39.0-53.0) % MCV 104.2 H D (80.0-100.0) fL RDW 21.4 H (11.5-15.5) % Plt Count (150-450) k/uL Lymphocytes # (Manual) (1.0-4.8) k/uL Macrocytosis Marked A ABG pCO2 (35-45) mmHg ABG pO2 (83-108) mmHg ABG HCO3 (21-25) mmol/L ABG O2 Saturation (94-97) % Potassium (3.5-5.1) mmol/L Chloride 113 H (98-107) mmol/L Carbon Dioxide 20 L (22-30) mmol/L Creatinine 1.91 H (0.66-1.25) mg/dL Glucose 102 H (74-99) mg/dL Plasma Lactic Acid Jeromy 2.6 H* (0.7-2.0) mmol/L Calcium 7.9 L (8.4-10.2) mg/dL Magnesium (1.6-2.3) mg/dL Total Protein (6.3-8.2) g/dL Albumin (3.5-5.0) g/dL Urine Protein (Negative) Urine Ketones (Negative) Urine Blood (Negative) Urine RBC (0-5) /hpf Amorphous Sediment (None) /hpf Hyaline Casts (0-2) /lpf Urine Mucus (None) /hpf 04/21/22 04/21/22 04/21/22 Range/Units 00:25 01:12 01:33 RBC (4.30-5.90) m/uL Hgb (13.0-17.5) gm/dL Hct (39.0-53.0) % MCV (80.0-100.0) fL RDW (11.5-15.5) % Plt Count (150-450) k/uL Lymphocytes # (Manual) (1.0-4.8) k/uL Macrocytosis ABG pCO2 31 L (35-45) mmHg ABG pO2 122 H 134 H (83-108) mmHg ABG HCO3 19 L (21-25) mmol/L ABG O2 Saturation 99.2 H 99.7 H (94-97) % Potassium (3.5-5.1) mmol/L Chloride (98-107) mmol/L Carbon Dioxide (22-30) mmol/L Creatinine (0.66-1.25) mg/dL Glucose (74-99) mg/dL Plasma Lactic Acid Jeromy (0.7-2.0) mmol/L Calcium (8.4-10.2) mg/dL Magnesium (1.6-2.3) mg/dL Total Protein (6.3-8.2) g/dL Albumin (3.5-5.0) g/dL Urine Protein 1+ H (Negative) Urine Ketones 1+ H (Negative) Urine Blood Moderate H (Negative) Urine RBC 6 H (0-5) /hpf Amorphous Sediment Rare H (None) /hpf Hyaline Casts 14 H (0-2) /lpf Urine Mucus Rare H (None) /hpf 04/21/22 04/21/22 04/21/22 Range/Units 03:11 03:11 03:11 RBC 2.97 L (4.30-5.90) m/uL Hgb 9.6 L (13.0-17.5) gm/dL Hct 31.0 L (39.0-53.0) % MCV 104.5 H (80.0-100.0) fL RDW 21.8 H (11.5-15.5) % Plt Count 110 L (150-450) k/uL Lymphocytes # (Manual) 0.70 L (1.0-4.8) k/uL Macrocytosis Marked A ABG pCO2 (35-45) mmHg ABG pO2 (83-108) mmHg ABG HCO3 (21-25) mmol/L ABG O2 Saturation (94-97) % Potassium 3.4 L (3.5-5.1) mmol/L Chloride 114 H (98-107) mmol/L Carbon Dioxide 21 L (22-30) mmol/L Creatinine 1.87 H (0.66-1.25) mg/dL Glucose (74-99) mg/dL Plasma Lactic Acid Jeromy 2.7 H* (0.7-2.0) mmol/L Calcium 7.6 L (8.4-10.2) mg/dL Magnesium 1.5 L (1.6-2.3) mg/dL Total Protein 4.8 L (6.3-8.2) g/dL Albumin 2.4 L (3.5-5.0) g/dL Urine Protein (Negative) Urine Ketones (Negative) Urine Blood (Negative) Urine RBC (0-5) /hpf Amorphous Sediment (None) /hpf Hyaline Casts (0-2) /lpf Urine Mucus (None) /hpf 04/21/22 04/21/22 Range/Units 05:23 06:43 RBC (4.30-5.90) m/uL Hgb (13.0-17.5) gm/dL Hct (39.0-53.0) % MCV (80.0-100.0) fL RDW (11.5-15.5) % Plt Count (150-450) k/uL Lymphocytes # (Manual) (1.0-4.8) k/uL Macrocytosis ABG pCO2 31 L (35-45) mmHg ABG pO2 (83-108) mmHg ABG HCO3 (21-25) mmol/L ABG O2 Saturation 98.5 H (94-97) % Potassium (3.5-5.1) mmol/L Chloride (98-107) mmol/L Carbon Dioxide (22-30) mmol/L Creatinine (0.66-1.25) mg/dL Glucose (74-99) mg/dL Plasma Lactic Acid Jeromy 2.2 H* (0.7-2.0) mmol/L Calcium (8.4-10.2) mg/dL Magnesium (1.6-2.3) mg/dL Total Protein (6.3-8.2) g/dL Albumin (3.5-5.0) g/dL Urine Protein (Negative) Urine Ketones (Negative) Urine Blood (Negative) Urine RBC (0-5) /hpf Amorphous Sediment (None) /hpf Hyaline Casts (0-2) /lpf Urine Mucus (None) /hpf Microbiology - Last 24 Hours (Table) 04/20/22 11:45 CSF Gram Stain - Preliminary Cerebral Spinal Fluid CSF Culture - Preliminary 04/17/22 15:39 Gram Stain - Final Leg - Left Wound Culture - Final Pseudomonas aeruginosa Assessment and Plan (1) Cellulitis Status: Acute Priority: High Code(s): L03.90 - CELLULITIS, UNSPECIFIED SNOMED Code(s): 538782964 Plan: 1patient presented to hospital with fever weakness increasing pain and swelling to the left foot in this patient recently treated for cellulitis CT at that time did not show any abscess and there is a question of a necrotizing infection however the patient was evaluated by orthopedic and recommended no surgical intervention patient now clinically has evidence of left foot abscess could be responsible for his recurrent symptoms. 2 CT of the left foot did shows evidence of abscess and the patient is status post drainage of the abscess on 04/07/2022 and the cultures were finalized with Pseudomonas , patient did have another fluctuant area to the right posterior leg which has been drained, and repeat cultures also grew Pseudomonas 3patient did have significant encephalopathy for which neurology is following the patient and did have extensive workup and did have LP this morning glucose w as normal , protein mild elevated white cells only one 4- Pt to continue with the Zosyn and acyclovir and yesterday for possible encephalitis while waiting for transfer to tertiary care Family the bedside and multiple questions answered Time with Patient: Less than 30
== END 2022-04-22 00:38 | disposition short-term general hospital (02) | DRG 602 ==
LOC: EC 18:56 → 5NMEDONC 04-06 02:41 → 2SICU 04-21 00:55
PROVIDERS: ADMIT Internal Medicine; ATTEND Internal Medicine
PROC: 0J9P0ZX Drainage of Left Lower Leg Subcutaneous Tissue and Fascia, Open Approach, Diagnostic (ICD-10-PCS; principal; 2022-04-07 10:05)
PROC: 0Y9N0ZX Drainage of Left Foot, Open Approach, Diagnostic (ICD-10-PCS; principal; 2022-04-07 10:05)
PROC: 05HD33Z Insertion of Infusion Device into Right Cephalic Vein, Percutaneous Approach (ICD-10-PCS; 2022-04-17)
PROC: 0J9P0ZZ Drainage of Left Lower Leg Subcutaneous Tissue and Fascia, Open Approach (ICD-10-PCS; 2022-04-17 09:20)
PROC: 009U3ZX Drainage of Spinal Canal, Percutaneous Approach, Diagnostic (ICD-10-PCS; 2022-04-20)
PROC: 0CHY7BZ Insertion of Airway into Mouth and Throat, Via Natural or Artificial Opening (ICD-10-PCS; 2022-04-21)
PROC: 5A1935Z Respiratory Ventilation, Less than 24 Consecutive Hours (ICD-10-PCS; 2022-04-21)
PROC: 0D9670Z Drainage of Stomach with Drainage Device, Via Natural or Artificial Opening (ICD-10-PCS; 2022-04-21)
DX: L03.116 Cellulitis of left lower limb (principal); A41.9 Sepsis, unspecified organism; N17.0 Acute kidney failure with tubular necrosis; D61.810 Antineoplastic chemotherapy induced pancytopenia; G92.8 Other toxic encephalopathy; I26.99 Other pulmonary embolism without acute cor pulmonale; J96.01 Acute respiratory failure with hypoxia; R65.20 Severe sepsis without septic shock; R40.20 Unspecified coma; L02.612 Cutaneous abscess of left foot; M80.08XA Age-related osteoporosis with current pathological fracture, vertebra(e), initial encounter for fracture; M84.58XA Pathological fracture in neoplastic disease, other specified site, initial encounter for fracture; C90.00 Multiple myeloma not having achieved remission; D84.9 Immunodeficiency, unspecified; E87.1 Hypo-osmolality and hyponatremia; Z94.84 Stem cells transplant status; L02.416 Cutaneous abscess of left lower limb; G25.3 Myoclonus; M48.04 Spinal stenosis, thoracic region; F32.A Depression, unspecified; E66.9 Obesity, unspecified; I12.9 Hypertensive chronic kidney disease with stage 1 through stage 4 chronic kidney disease, or unspecified chronic kidney disease; Z68.30 Body mass index [BMI] 30.0-30.9, adult; R56.9 Unspecified convulsions; H70.91 Unspecified mastoiditis, right ear; G62.0 Drug-induced polyneuropathy; D63.1 Anemia in chronic kidney disease; D69.59 Other secondary thrombocytopenia; M47.816 Spondylosis without myelopathy or radiculopathy, lumbar region; N18.32 Chronic kidney disease, stage 3b; G89.3 Neoplasm related pain (acute) (chronic); M48.061 Spinal stenosis, lumbar region without neurogenic claudication; B96.5 Pseudomonas (aeruginosa) (mallei) (pseudomallei) as the cause of diseases classified elsewhere; D50.9 Iron deficiency anemia, unspecified; Z20.822 Contact with and (suspected) exposure to COVID-19; E78.5 Hyperlipidemia, unspecified; E83.42 Hypomagnesemia; M51.36 Other intervertebral disc degeneration, lumbar region; E87.6 Hypokalemia; F41.9 Anxiety disorder, unspecified; T45.1X5A Adverse effect of antineoplastic and immunosuppressive drugs, initial encounter; G89.4 Chronic pain syndrome; R26.9 Unspecified abnormalities of gait and mobility; I25.10 Atherosclerotic heart disease of native coronary artery without angina pectoris; R32 Unspecified urinary incontinence; T40.2X5A Adverse effect of other opioids, initial encounter; T50.2X5A Adverse effect of carbonic-anhydrase inhibitors, benzothiadiazides and other diuretics, initial encounter; Z79.01 Long term (current) use of anticoagulants; Z79.82 Long term (current) use of aspirin; Z79.899 Other long term (current) drug therapy; Z82.49 Family history of ischemic heart disease and other diseases of the circulatory system; Z86.711 Personal history of pulmonary embolism; Z86.718 Personal history of other venous thrombosis and embolism; Z95.5 Presence of coronary angioplasty implant and graft; Z71.3 Dietary counseling and surveillance
CPT/HCPCS: 36410; 36415; 36600; 62270; 70450; 70551; 71045; 71046; 72128; 72131; 72148; 76937; 80048; 80053; 80074; 80202; 81001; 82040; 82042; 82140; 82164; 82550; 82565; 82570; 82607; 82728; 82746; 82784; 82805; 82945; 83540; 83550; 83605; 83615; 83735; 83883; 83916; 84132; 84156; 84157; 84165; 84439; 84443; 85025; 85027; 85045; 85610; 85652; 86038; 86140; 86160; 86162; 86225; 86255; 86334; 86335; 87040; 87070; 87075; 87077; 87186; 87205; 87252; 87327; 87496; 87498; 87502; 87529; 87635; 87798; 88108; 89050; 94002; 95816; 96361; 96365; 96366; 96367; 96375; 96376; 99285

== ENCOUNTER 2022-05-16 13:45 | Observation (INO) | payer MEDICARE, BC ==
[2022-05-16] MEDS ORDERED: SODIUM CHLORIDE 0.9% 1,000 ML IV STA (15:20)
--- NOTE | 2022-05-16 15:23 | ED ---
General Adult HPI - General Chief complaint: Recheck/Abnormal Lab/Rx Stated complaint: Abnormal Labs Time Seen by Provider: 05/16/22 14:00 Source: patient Mode of arrival: EMS Limitations: altered mental status - History of Present Illness Initial comments: 67-year-old male with past history of multiple myeloma presents to the emergency Department with abnormal labs. He is currently at [facility]. They have been completing laboratory studies on the patient found that his kidney function is elevated. Patient's denies any symptoms. He was recently hospitalized and transferred down to [facility] as during his hospitalization he became extremely altered. at bedside reports that it was because of all the medications he was on. Patient presents today with no notable confusion. Cellulitis has improved and he is not currently on any antibiotics. He denies any issues with his urination. States that he uses a brief because they do not get him up as much as they should be at rehab to use the restroom. No fevers. No abdominal pain. No other alleviating, Perceptin or modifying factors - Related Data Home Medications Medication Instructions Recorded Confirmed Famotidine [Pepcid] 20 mg PO DAILY@0600 04/15/19 05/16/22 Apixaban [Eliquis] 5 mg PO BID@0900,2100 10/03/19 05/16/22 Aspirin 81 mg PO DAILY@0900 05/16/22 05/16/22 Atorvastatin Calcium [Lipitor] 40 mg PO HS@2100 05/16/22 05/16/22 Magnesium Oxide 400 mg PO DAILY@0900 05/16/22 05/16/22 Previous Rx's Medication Instructions Recorded Cephalexin [Keflex] 250 mg PO Q6HR #16 cap 05/19/22 Darbepoetin Vj [Aranesp] 40 mcg SQ Q7D each 05/19/22 Ondansetron Odt [Zofran Odt] 4 mg PO Q8HR PRN #30 tab 05/19/22 Sodium Bicarbonate Tab 650 mg PO BID 7 Days tab 05/19/22 Allergies Allergy/AdvReac Type Severity Reaction Status Date / Time sulfamethoxazole Allergy Rash/Hives Verified 05/16/22 19:11 [From Bactrim] trimethoprim [From Bactrim] Allergy Rash/Hives Verified 05/16/22 19:11 Review of Systems ROS Statement: Those systems with pertinent positive or pertinent negative responses have been documented in the HPI. ROS Other: All systems not noted in ROS Statement are negative. 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, gait dysfunction-uses walker, bilateral pedal/ankle edema, PE 08/2019, chronic low back pain, past vertebral fractures, minimal CAD, shingelles twice, past R heel wound, elevated lipids in the past, History of Any Multi-Drug Resistant Organisms: None Reported Past Surgical History: Heart Catheterization, Orthopedic Surgery Additional Past Surgical History / Comment(s): excision of uvular lesion(benign) 2009, colonoscopy, dave knee arthroscopy, rt rotator cuff sx, moles removed from back(benign), bone marrow aspiration/bx, stem cell transplant 2015, Past Anesthesia/Blood Transfusion Reactions: No Reported Reaction Past Psychological History: No Psychological Hx Reported Smoking Status: Never smoker Past Alcohol Use History: None Reported Past Drug Use History: None Reported - Past Family History Father Family Medical History: Renal Disease, Vascular Disorder Additional Family Medical History / Comment(s): aaa. Father is . Mother Family Medical History: No Reported History Additional Family Medical History / Comment(s): mom is healthy General Exam Limitations: no limitations General appearance: alert, in no apparent distress Head exam: Present: atraumatic, normocephalic, normal inspection Eye exam: Present: normal appearance, PERRL, EOMI. Absent: scleral icterus, conjunctival injection, periorbital swelling ENT exam: Present: normal exam, mucous membranes moist Neck exam: Present: normal inspection. Absent: tenderness, meningismus, lymphadenopathy Respiratory exam: Present: normal lung sounds bilaterally. Absent: respiratory distress, wheezes, rales, rhonchi, stridor Cardiovascular Exam: Present: regular rate, normal rhythm, normal heart sounds. Absent: systolic murmur, diastolic murmur, rubs, gallop, clicks GI/Abdominal exam: Present: soft, normal bowel sounds. Absent: distended, tenderness, guarding, rebound, rigid Extremities exam: Present: normal inspection, full ROM, normal capillary refill. Absent: tenderness, pedal edema, joint swelling, calf tenderness Back exam: Present: normal inspection Neurological exam: Present: alert, oriented X3, CN II-XII intact Psychiatric exam: Present: normal affect, normal mood Skin exam: Present: warm, dry, intact, normal color. Absent: rash Course Vital Signs 05/16/22 05/16/22 05/16/22 13:54 16:31 18:13 Temperature 97.6 F 97.9 F Pulse Rate 82 80 78 Respiratory 16 18 18 Rate Blood Pressure 124/86 123/72 125/74 O2 Sat by Pulse 100 100 98 Oximetry EKG Findings - EKG Comments: EKG Findings:: EKG demonstrates sinus rhythm with a rate of 79. [place] interval 190. QRS 99. QTC of 458. Deep inverted T waves in V2 through V5. Medical Decision Making - Medical Decision Making On arrival I did review the patient's packet. I repeated laboratory studies which demonstrated a creatinine of 3.1. Urine is positive for moderate yeast. He is given a dose of Diflucan. Renal ultrasound performed. Patient will be admitted for nephrology consultation - Lab Data Result diagrams: 05/18/22 05:02 05/19/22 09:12 Lab Results 05/16/22 05/16/22 05/16/22 Range/Units 15:37 15:37 15:37 WBC 6.3 (3.8-10.6) k/uL RBC 2.74 L (4.30-5.90) m/uL Hgb 8.5 L (13.0-17.5) gm/dL Hct 27.1 L (39.0-53.0) % MCV 99.0 D (80.0-100.0) fL MCH 31.1 (25.0-35.0) pg MCHC 31.4 (31.0-37.0) g/dL RDW 18.1 H (11.5-15.5) % Plt Count 321 D (150-450) k/uL MPV 8.3 Neutrophils % 77 % Lymphocytes % 8 % Monocytes % 8 % Eosinophils % 5 % Basophils % 0 % Neutrophils # 4.9 (1.3-7.7) k/uL Lymphocytes # 0.5 L (1.0-4.8) k/uL Monocytes # 0.5 (0-1.0) k/uL Eosinophils # 0.3 (0-0.7) k/uL Basophils # 0.0 (0-0.2) k/uL Hypochromasia Marked Poikilocytosis Slight Anisocytosis Slight Macrocytosis Slight PT 12.4 H (9.0-12.0) sec INR 1.2 H (<1.2) APTT 29.4 (22.0-30.0) sec Sodium 134 L (137-145) mmol/L Potassium 4.5 (3.5-5.1) mmol/L Chloride 107 (98-107) mmol/L Carbon Dioxide 21 L (22-30) mmol/L Anion Gap 6 mmol/L BUN 18 (9-20) mg/dL Creatinine 3.17 H (0.66-1.25) mg/dL Est GFR (CKD-EPI)AfAm 22 (>60 ml/min/1.73 sqM) Est GFR (CKD-EPI)NonAf 19 (>60 ml/min/1.73 sqM) Glucose 83 (74-99) mg/dL Calcium 8.4 (8.4-10.2) mg/dL Phosphorus 4.5 (2.5-4.5) mg/dL Magnesium 2.2 (1.6-2.3) mg/dL Iron (65-175) ug/dL TIBC (228-460) ug/dL % Saturation (15.00-50.00) Transferrin (204.0-354.0) mg/dL Total Bilirubin 0.5 (0.2-1.3) mg/dL AST 51 (17-59) U/L ALT 15 (4-49) U/L Alkaline Phosphatase 89 (38-126) U/L Lactate Dehydrogenase (120-246) U/L Troponin I (0.000-0.034) ng/mL NT-Pro-B Natriuret Pep pg/mL Total Protein 5.2 L (6.3-8.2) g/dL Albumin 2.7 L (3.5-5.0) g/dL Vitamin B12 (200.0-944.0) pg/mL Folate (4.40-31.00) ng/mL Urine Color Urine Appearance (Clear) Urine pH (5.0-8.0) Ur Specific [place] (1.001-1.035) Urine Protein (Negative) Urine Glucose (UA) (Negative) Urine Ketones (Negative) Urine Blood (Negative) Urine Nitrite (Negative) Urine Bilirubin (Negative) Urine Urobilinogen (<2.0) mg/dL Ur Leukocyte Esterase (Negative) Urine RBC (0-5) /hpf Urine WBC (0-5) /hpf Urine WBC Clumps (None) /hpf Urine Mucus (None) /hpf Urine Yeast (Budding) (None) /hpf 05/16/22 05/16/22 05/16/22 Range/Units 15:37 15:37 15:37 WBC (3.8-10.6) k/uL RBC (4.30-5.90) m/uL Hgb (13.0-17.5) gm/dL Hct (39.0-53.0) % MCV (80.0-100.0) fL MCH (25.0-35.0) pg MCHC (31.0-37.0) g/dL RDW (11.5-15.5) % Plt Count (150-450) k/uL MPV Neutrophils % % Lymphocytes % % Monocytes % % Eosinophils % % Basophils % % Neutrophils # (1.3-7.7) k/uL Lymphocytes # (1.0-4.8) k/uL Monocytes # (0-1.0) k/uL Eosinophils # (0-0.7) k/uL Basophils # (0-0.2) k/uL Hypochromasia Poikilocytosis Anisocytosis Macrocytosis PT (9.0-12.0) sec INR (<1.2) APTT (22.0-30.0) sec Sodium (137-145) mmol/L Potassium (3.5-5.1) mmol/L Chloride (98-107) mmol/L Carbon Dioxide (22-30) mmol/L Anion Gap mmol/L BUN (9-20) mg/dL Creatinine (0.66-1.25) mg/dL Est GFR (CKD-EPI)AfAm (>60 ml/min/1.73 sqM) Est GFR (CKD-EPI)NonAf (>60 ml/min/1.73 sqM) Glucose (74-99) mg/dL Calcium (8.4-10.2) mg/dL Phosphorus (2.5-4.5) mg/dL Magnesium (1.6-2.3) mg/dL Iron (65-175) ug/dL TIBC (228-460) ug/dL % Saturation (15.00-50.00) Transferrin (204.0-354.0) mg/dL Total Bilirubin (0.2-1.3) mg/dL AST (17-59) U/L ALT (4-49) U/L Alkaline Phosphatase (38-126) U/L Lactate Dehydrogenase (120-246) U/L Troponin I <0.012 (0.000-0.034) ng/mL NT-Pro-B Natriuret Pep 3570 pg/mL Total Protein (6.3-8.2) g/dL Albumin (3.5-5.0) g/dL Vitamin B12 (200.0-944.0) pg/mL Folate (4.40-31.00) ng/mL Urine Color Light Yellow Urine Appearance Cloudy (Clear) Urine pH 6.5 (5.0-8.0) Ur Specific [place] 1.010 (1.001-1.035) Urine Protein 1+ H (Negative) Urine Glucose (UA) Negative (Negative) Urine Ketones Negative (Negative) Urine Blood Trace H (Negative) Urine Nitrite Negative (Negative) Urine Bilirubin Negative (Negative) Urine Urobilinogen <2.0 (<2.0) mg/dL Ur Leukocyte Esterase Large H (Negative) Urine RBC 11 H (0-5) /hpf Urine WBC >182 H (0-5) /hpf Urine WBC Clumps Few H (None) /hpf Urine Mucus Rare H (None) /hpf Urine Yeast (Budding) Moderate H (None) /hpf 05/16/22 05/16/22 Range/Units 15:37 15:37 WBC (3.8-10.6) k/uL RBC (4.30-5.90) m/uL Hgb (13.0-17.5) gm/dL Hct (39.0-53.0) % MCV (80.0-100.0) fL MCH (25.0-35.0) pg MCHC (31.0-37.0) g/dL RDW (11.5-15.5) % Plt Count (150-450) k/uL MPV Neutrophils % % Lymphocytes % % Monocytes % % Eosinophils % % Basophils % % Neutrophils # (1.3-7.7) k/uL Lymphocytes # (1.0-4.8) k/uL Monocytes # (0-1.0) k/uL Eosinophils # (0-0.7) k/uL Basophils # (0-0.2) k/uL Hypochromasia Poikilocytosis Anisocytosis Macrocytosis PT (9.0-12.0) sec INR (<1.2) APTT (22.0-30.0) sec Sodium (137-145) mmol/L Potassium (3.5-5.1) mmol/L Chloride (98-107) mmol/L Carbon Dioxide (22-30) mmol/L Anion Gap mmol/L BUN (9-20) mg/dL Creatinine (0.66-1.25) mg/dL Est GFR (CKD-EPI)AfAm (>60 ml/min/1.73 sqM) Est GFR (CKD-EPI)NonAf (>60 ml/min/1.73 sqM) Glucose (74-99) mg/dL Calcium (8.4-10.2) mg/dL Phosphorus (2.5-4.5) mg/dL Magnesium (1.6-2.3) mg/dL Iron 81 (65-175) ug/dL TIBC 230 (228-460) ug/dL % Saturation 35.19 (15.00-50.00) Transferrin 164.0 L (204.0-354.0) mg/dL Total Bilirubin (0.2-1.3) mg/dL AST (17-59) U/L ALT (4-49) U/L Alkaline Phosphatase (38-126) U/L Lactate Dehydrogenase 412 H (120-246) U/L Troponin I (0.000-0.034) ng/mL NT-Pro-B Natriuret Pep pg/mL Total Protein (6.3-8.2) g/dL Albumin (3.5-5.0) g/dL Vitamin B12 937.0 (200.0-944.0) pg/mL Folate >20.00 (4.40-31.00) ng/mL Urine Color Urine Appearance (Clear) Urine pH (5.0-8.0) Ur Specific [place] (1.001-1.035) Urine Protein (Negative) Urine Glucose (UA) (Negative) Urine Ketones (Negative) Urine Blood (Negative) Urine Nitrite (Negative) Urine Bilirubin (Negative) Urine Urobilinogen (<2.0) mg/dL Ur Leukocyte Esterase (Negative) Urine RBC (0-5) /hpf Urine WBC (0-5) /hpf Urine WBC Clumps (None) /hpf Urine Mucus (None) /hpf Urine Yeast (Budding) (None) /hpf Disposition Clinical Impression: DUNCAN (acute kidney injury), Yeast UTI, History of multiple myeloma Disposition: ADMITTED IP TO THIS HOSP Condition: Stable Is patient prescribed a controlled substance at d/c from ED?: No Time of Disposition: 17:31 Decision to Admit Reason: Admit from EC Decision Date: 05/16/22 Decision Time: 17:31
[2022-05-16 15:49] LABS: Anisocytosis Slight; Basophils % (A) 0 %; Eosinophils # (A) 0.3 k/uL (0-0.7); Eosinophils % (A) 5 %; HCT 27.1 % (39.0-53.0); HGB 8.5 gm/dL (13.0-17.5); Hypochromasia Marked; Lymphocytes # (A) 0.5 k/uL (1.0-4.8); Lymphocytes % (A) 8 %; MCH 31.1 pg (25.0-35.0); MCHC 31.4 g/dL (31.0-37.0); Macrocytosis Slight; Mean Platelet Volume 8.3; Monocytes # (A) 0.5 k/uL (0-1.0); Monocytes % (A) 8 %; Neutrophils # (A) 4.9 k/uL (1.3-7.7); Neutrophils % (A) 77 %; Poikilocytosis Slight; RBC 2.74 m/uL (4.30-5.90); RDW 18.1 % (11.5-15.5); WBC 6.3 k/uL (3.8-10.6)
[2022-05-16 15:51] LABS: Platelet Count 321 k/uL (150-450)
[2022-05-16 15:53] LABS: Albumin 2.7 g/dL (3.5-5.0); Calcium 8.4 mg/dL (8.4-10.2); Magnesium 2.2 mg/dL (1.6-2.3); Phosphorus 4.5 mg/dL (2.5-4.5); Potassium 4.5 mmol/L (3.5-5.1); Total Bilirubin 0.5 mg/dL (0.2-1.3); Total Protein 5.2 g/dL (6.3-8.2)
[2022-05-16 16:02] LABS: INR 1.2 (<1.2); Partial Thromboplastin Time 29.4 sec (22.0-30.0); Prothrombin Time 12.4 sec (9.0-12.0)
[2022-05-16 17:07] LABS: Appearance,Urine Cloudy (Clear); Bilirubin,Urine Negative (Negative); Blood,Urine Trace (Negative); Budding Yeast,Urine Moderate /hpf; Color,Urine Light Yellow; Glucose,Urine (UA) Negative (Negative); Ketones,Urine Negative (Negative); Leukocyte Esterase,Urine Large (Negative); Mucus,Urine Rare /hpf; Nitrite,Urine Negative (Negative); PH, Urine 6.5 (5.0-8.0); Protein,Urine 1+ (Negative); RBC,Urine 11 /hpf (0-5); Urobilinogen,Urine <2.0 mg/dL (<2.0); WBC,Urine >182 /hpf (0-5)
--- NOTE | 2022-05-16 17:07 | US ---
EXAMINATION TYPE: US renals and bladder DATE OF EXAM: 05/16/2022 COMPARISON: NONE CLINICAL HISTORY: 67-year-old male worsening kidney function. Abnormal renal function test. TECHNIQUE: Multiple sonographic images of the kidneys and bladder are obtained. FINDINGS: EXAM MEASUREMENTS: Right Kidney: 8.5 x 4.4 x 4.3 cm Left Kidney: 8.4 x 4.6 x 3.9 cm Limited due to large patient body habitus. There may be some underlying fatty infiltration of the katheryn er. Right Kidney: No hydronephrosis or masses seen Left Kidney: No hydronephrosis or masses seen Bladder: anechoic Bilateral Jets seen: no IMPRESSION: Limited due to body habitus. No apparent hydronephrosis.
[2022-05-16] MEDS ORDERED: FLUCONAZOLE 150 MG TAB PO STA (17:14)
[2022-05-16] MEDS ORDERED: NALOXONE 0.4 MG/ML 1 ML VIAL IV PRN (17:41)
[2022-05-16] MEDS ORDERED: ACETAMINOPHEN TAB 325 MG TAB PO PRN (17:54)
--- NOTE | 2022-05-16 18:06 | P.HPIM ---
History of Present Illness H&P Date: 05/16/22 Chief Complaint: Sent from intermediate facility due to abnormal labs Patient is a 67-year-old male with a past medical history of multiple myeloma who is currently undergoing chemotherapy with Dr. Browning, pulmonary embolism, cellulitis, coronary artery disease, dyslipidemia who was recently admitted for left lower extremity abscess and cellulitis that required multiple debridement and wound cultures grew Pseudomonas was being treated with IV antibiotics. He had a complicated hospital course at that time as patient was getting more confused during the hospital stay. He subsequently required intubation to protect his airways. Patient had extensive workup for his altered mental status. Patient was then transferred to [facility] for further workup. Per at bedside patient had extensive workup done at [facility] and everything came back negative. His mental status did gradually improve while he was at [facility]. She states that the doctors there told him that it was due to pain medications and his infection. Patient was then discharged to intermediate facility. Patient's labs were checked at the intermediate facility and is found to have acute kidney injury on CK D so patient was sent to our emergency room. Patient had a UA that showed possible UTI with yeast so he was given Diflucan. Patient had a renal ultrasound done that was negative for hydronephrosis. Patient will be admitted for further workup of his acute kidney injury. Patient's main complaint currently is when his appointment to eat. states that he did not get any lunch. 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, gait dysfunction-uses walker, bilateral pedal/ankle edema, PE 08/2019, chronic low back pain, past vertebral fractures, minimal CAD, shingelles twice, past R heel wound, elevated lipids in the past, History of Any Multi-Drug Resistant Organisms: None Reported Past Surgical History: Heart Catheterization, Orthopedic Surgery Additional Past Surgical History / Comment(s): excision of uvular lesion(benign) 2009, colonoscopy, dave knee arthroscopy, rt rotator cuff sx, moles removed from back(benign), bone marrow aspiration/bx, stem cell transplant 2016, Past Anesthesia/Blood Transfusion Reactions: No Reported Reaction Past Psychological History: No Psychological Hx Reported Smoking Status: Never smoker Past Alcohol Use History: None Reported Past Drug Use History: None Reported - Past Family History Father Family Medical History: Renal Disease, Vascular Disorder Additional Family Medical History / Comment(s): aaa. Father is . Mother Family Medical History: No Reported History Additional Family Medical History / Comment(s): mom is healthy Medications and Allergies Home Medications Medication Instructions Recorded Confirmed Type Famotidine [Pepcid] 20 mg PO DAILY PRN 04/15/19 04/05/22 History Gabapentin [Neurontin] 300 mg PO TID 04/15/19 04/05/22 History dexAMETHasone 8 mg PO DIRECTED 04/15/19 04/05/22 History Acyclovir 400 mg PO BID 08/24/19 04/05/22 History Pomalyst 3mg 3 mg PO DIRECTED 08/24/19 04/05/22 History Aspirin 81 mg PO DAILY #30 chewable 08/26/19 04/05/22 Rx Apixaban [Eliquis] 5 mg PO BID 10/03/19 04/05/22 History Nitroglycerin Sl Tabs [Nitrostat] 0.4 mg SUBLINGUAL Q5M PRN 10/03/19 04/05/22 History Calcium Carbonate/Vitamin D3 1 cap PO DAILY 01/10/20 04/05/22 History [Calcium 600-Vit D3 20 Mcg (800 Iu)] Potassium Chloride ER [K-Dur 20] 20 meq PO DAILY 01/10/20 04/05/22 History Furosemide [Lasix] 20 mg PO DAILY PRN 05/31/21 04/05/22 History Acetaminophen Tab [Tylenol] 650 mg PO Q6HR PRN tab 06/03/21 04/05/22 Rx Multivitamins, Thera [Multivitamin 1 tab PO DAILY 12/16/21 04/05/22 History (formulary)] oxyCODONE HCL [oxyCODONE HCL (IR)] 10 - 20 mg PO Q4H PRN 03/25/22 04/05/22 History Cephalexin [Keflex] 500 mg PO Q6HR 1 Days #40 cap 04/03/22 04/05/22 Rx Terbinafine 1% Cream [LamISIL] 1 applic TOPICAL TID 90 Days #15 gm 04/03/22 04/05/22 Rx Allergies Allergy/AdvReac Type Severity Reaction Status Date / Time sulfamethoxazole Allergy Rash/Hives Verified 05/16/22 14:04 [From Bactrim] trimethoprim [From Bactrim] Allergy Rash/Hives Verified 05/16/22 14:04 Physical Exam Osteopathic Statement: *. No significant issues noted on an osteopathic structural exam other than those noted in the History and Physical/Consult. Vitals: Vital Signs Temp Pulse Resp BP Pulse Ox 05/16/22 16:31 80 18 123/72 100 05/16/22 13:54 97.6 F 82 16 124/86 100 Intake and Output 05/16/22 05/16/22 05/16/22 06:59 14:59 22:59 Other: Weight 95.254 kg General: [Alert and oriented, well nourished, no acute distress]. Eye: [PERRL, EOMI, normal conjunctiva]. HENT: [Normocephalic, clear tympanic membranes, normal hearing, moist oral mucosa, no scleral icterus, no sinus tenderness]. Neck: [Supple, non-tender, no carotid bruits, no JVD, no lymphadenopathy]. Lungs: [Clear to auscultation and percussion, non-labored respiration]. Heart: [Normal rate, regular rhythm, no murmur, gallop or edema]. Abdomen: [Soft, non-tender, non-distended, normal bowel sounds, no masses]. Musculoskeletal: [Normal range of motion and strength, no tenderness or swelling]. Skin: [Left foot with bandages that are intact and dry and no surrounding erythema]. Neurologic: [Awake, alert, and oriented X3, CN II-XII intact]. Psychiatric: [Cooperative, appropriate mood and affect, mildly confused]. Results CBC & Chem 7: 05/16/22 15:37 05/16/22 15:37 Labs: Abnormal Lab Results - Last 24 Hours (Table) 05/16/22 05/16/22 05/16/22 Range/Units 15:37 15:37 15:37 RBC 2.74 L (4.30-5.90) m/uL Hgb 8.5 L (13.0-17.5) gm/dL Hct 27.1 L (39.0-53.0) % RDW 18.1 H (11.5-15.5) % Lymphocytes # 0.5 L (1.0-4.8) k/uL PT 12.4 H (9.0-12.0) sec INR 1.2 H (<1.2) Sodium 134 L (137-145) mmol/L Carbon Dioxide 21 L (22-30) mmol/L Creatinine 3.17 H (0.66-1.25) mg/dL Total Protein 5.2 L (6.3-8.2) g/dL Albumin 2.7 L (3.5-5.0) g/dL Urine Protein (Negative) Urine Blood (Negative) Ur Leukocyte Esterase (Negative) Urine RBC (0-5) /hpf Urine WBC (0-5) /hpf Urine WBC Clumps (None) /hpf Urine Mucus (None) /hpf Urine Yeast (Budding) (None) /hpf 05/16/22 Range/Units 15:37 RBC (4.30-5.90) m/uL Hgb (13.0-17.5) gm/dL Hct (39.0-53.0) % RDW (11.5-15.5) % Lymphocytes # (1.0-4.8) k/uL PT (9.0-12.0) sec INR (<1.2) Sodium (137-145) mmol/L Carbon Dioxide (22-30) mmol/L Creatinine (0.66-1.25) mg/dL Total Protein (6.3-8.2) g/dL Albumin (3.5-5.0) g/dL Urine Protein 1+ H (Negative) Urine Blood Trace H (Negative) Ur Leukocyte Esterase Large H (Negative) Urine RBC 11 H (0-5) /hpf Urine WBC >182 H (0-5) /hpf Urine WBC Clumps Few H (None) /hpf Urine Mucus Rare H (None) /hpf Urine Yeast (Budding) Moderate H (None) /hpf Assessment and Plan Assessment: Acute kidney injury on CK D stage III -Likely due to multiple myeloma -We'll consult nephrology -IV fluids -Avoid nephrotoxic medication UTI -We'll start patient on IV Rocephin -Follow up urine culture Recent admission for left foot wound and cellulitis that required multiple debridement -Wound with bandages that are intact and dry -There is no surrounding cellulitis. -Continue routine wound care Anemia of chronic kidney disease -Hemoglobin at baseline History of multiple myeloma -Consult hematology History of pulmonary embolism -Resume Eliquis Chronic back pain -Only Tylenol for pain -No opioids as it may have been the etiology of his encephalopathy on previous admission. CODE STATUS:full code DVT prophylaxis: Damaris Discussed with: Patient, ER, rn Anticipated length of stay > than [address]: SNF A total of 75 minutes was spent on the care of this complex patient more than 50% of the time was spent in counseling and care coordination.
[2022-05-16] MEDS: SODIUM CHLORIDE 0.9% 1,000 ML IV SCH (19:37)
[2022-05-16] MEDS: APIXABAN 2.5 MG TABLET PO SCH (21:11)
[2022-05-17] MEDS: APIXABAN 2.5 MG TABLET PO SCH ×2 (08:44→20:00)
[2022-05-17] MEDS: SODIUM CHLORIDE 0.9% 1,000 ML IV SCH ×2 (08:45→20:00)
[2022-05-17 09:11] LABS: Basophils # (A) 0.01 X 10*3/uL (0.00-0.10); Basophils % (A) 0.2 %; Eosinophils % (A) 3.9 %; HCT 26.7 % (39.6-50.0); HGB 7.8 g/dL (13.0-17.0); Immature Grans, Automated 0.4 %; Lymphocytes % (A) 7.9 %; MCH 29.4 pg (27.0-32.0); MCHC 29.2 g/dL (32.0-37.0); MCV 100.8 fL (80.0-97.0); Mean Platelet Volume 10.6 fL (9.5-12.2); Monocytes # (A) 0.68 X 10*3/uL (0.20-1.00); Monocytes % (A) 13.4 %; NRBC Per 100 WBC 0 /100 WBCS (0.0-0.0); Neutrophils # (A) 3.78 X 10*3/uL (1.80-7.70); Neutrophils % (A) 74.2 %; Platelet Count 283 X 10*3/uL (140-440); RBC 2.65 X 10*6/uL (4.40-5.60); RDW 18.5 % (11.5-14.5); WBC 5.09 X 10*3/uL (4.50-10.00)
[2022-05-17 09:16] LABS: African American GFR (CKD) 21.9 (60.0-200.0); Anion Gap 11.5 mmol/L (10.00-18.00); BUN/Creat Ratio 4.97 Ratio (12.00-20.00); Blood Urea Nitrogen 15.9 mg/dL (9.0-27.0); Carbon Dioxide 20.5 mmol/L (20.0-27.5); Non-African American GFR(CKD) 18.9 (60.0-200.0); Potassium 3.9 mmol/L (3.5-5.5)
--- NOTE | 2022-05-17 12:15 | P.PN ---
Subjective Progress Note Date: 05/17/22 Patient is more is denying any acute complaints. Patient's was at bedside and she is asking what his creatinine was. I did tell her that was slightly worse than when he came in. Objective - Vital Signs Vital signs: Vital Signs Temp 98.1 F 05/17/22 11:29 Pulse 83 05/17/22 11:29 Resp 17 05/17/22 11:29 BP 122/79 05/17/22 11:29 Pulse Ox 99 05/17/22 11:29 FiO2 Intake & Output 05/16/22 05/17/22 05/17/22 18:59 06:59 18:59 Intake Total 800 Output Total 2 Balance 800 -2 Weight 95.254 kg 95.254 kg Intake: Intake, IV Titration 800 Amount Sodium Chloride 0.9% 1, 750 000 ml @ 75 mls/hr IV . [id number] [facility] Rx#:[id number] cefTRIAXone 1 gm In 50 Sodium Chloride 0.9% 50 ml @ 100 mls/hr IVPB Q24HR [facility] Rx#:[id number] Output: Urine 1 Stool 1 Other: Voiding Method Urinal # Voids 2 - Exam General examination - Alert and Oriented 3 in NAD, appears chronically debilitated Heart - + S1S2 no murmurs Lungs - Clear to auscultation Abdomen soft NT ND +ve BS Extremities - No edema, bandage on the left foot is intact and dry [employer] - Moving all 4 extremities spontaneously Psych - Calm and cooperative - Labs CBC & Chem 7: 05/17/22 05:20 05/17/22 05:20 Labs: Abnormal Lab Results - Last 24 Hours (Table) 05/16/22 05/16/22 05/16/22 Range/Units 15:37 15:37 15:37 RBC 2.74 L (4.30-5.90) m/uL Hgb 8.5 L (13.0-17.5) gm/dL Hct 27.1 L (39.0-53.0) % MCV (80.0-97.0) fL MCHC (32.0-37.0) g/dL RDW 18.1 H (11.5-15.5) % Lymphocytes # 0.5 L (1.0-4.8) k/uL PT 12.4 H (9.0-12.0) sec INR 1.2 H (<1.2) Sodium 134 L (137-145) mmol/L Carbon Dioxide 21 L (22-30) mmol/L Creatinine 3.17 H (0.66-1.25) mg/dL Est GFR (CKD-EPI)AfAm (60.0-200.0) Est GFR (CKD-EPI)NonAf (60.0-200.0) BUN/Creatinine Ratio (12.00-20.00) Ratio Calcium (8.7-10.3) mg/dL Total Protein 5.2 L (6.3-8.2) g/dL Albumin 2.7 L (3.5-5.0) g/dL Urine Protein (Negative) Urine Blood (Negative) Ur Leukocyte Esterase (Negative) Urine RBC (0-5) /hpf Urine WBC (0-5) /hpf Urine WBC Clumps (None) /hpf Urine Mucus (None) /hpf Urine Yeast (Budding) (None) /hpf 05/16/22 05/17/22 05/17/22 Range/Units 15:37 05:20 05:20 RBC 2.65 L (4.30-5.90) m/uL Hgb 7.8 L (13.0-17.5) gm/dL Hct 26.7 L (39.0-53.0) % MCV 100.8 H (80.0-97.0) fL MCHC 29.2 L (32.0-37.0) g/dL RDW 18.5 H (11.5-15.5) % Lymphocytes # 0.40 L (1.0-4.8) k/uL PT (9.0-12.0) sec INR (<1.2) Sodium (137-145) mmol/L Carbon Dioxide (22-30) mmol/L Creatinine 3.2 H (0.66-1.25) mg/dL Est GFR (CKD-EPI)AfAm 21.9 L (60.0-200.0) Est GFR (CKD-EPI)NonAf 18.9 L (60.0-200.0) BUN/Creatinine Ratio 4.97 L (12.00-20.00) Ratio Calcium 8.0 L (8.7-10.3) mg/dL Total Protein (6.3-8.2) g/dL Albumin (3.5-5.0) g/dL Urine Protein 1+ H (Negative) Urine Blood Trace H (Negative) Ur Leukocyte Esterase Large H (Negative) Urine RBC 11 H (0-5) /hpf Urine WBC >182 H (0-5) /hpf Urine WBC Clumps Few H (None) /hpf Urine Mucus Rare H (None) /hpf Urine Yeast (Budding) Moderate H (None) /hpf Assessment and Plan Assessment: Acute kidney injury on CK D stage III -Likely due to multiple myeloma -We'll consult nephrology -IV fluids -Avoid nephrotoxic medication -Creatinine level is slightly worse today UTI -We'll start patient on IV Rocephin -Follow up urine culture Recent admission for left foot wound and cellulitis that required multiple debridement -Wound with bandages that are intact and dry -There is no surrounding cellulitis. -Continue routine wound care Anemia of chronic kidney disease -Hemoglobin at baseline History of multiple myeloma -Consult hematology History of pulmonary embolism -Resume Eliquis Chronic back pain -Only Tylenol for pain -No opioids as it may have been the etiology of his encephalopathy on previous admission. CODE STATUS:full code DVT prophylaxis: Eliquis Anticipated length of stay > than [address]: SNF
[2022-05-17 12:28] VITALS: BMI 29.2
--- NOTE | 2022-05-17 13:36 | P.NPCON ---
History of Present Illness - Reason for Consult Consult date: 05/17/22 acute renal failure - Chief Complaint Altered mental status - History of Present Illness 67-year-old gentleman coming to the hospital from [facility] with the above complaints. He has history of multiple myeloma diagnosed 6 years ago was on chemotherapy. He was admitted in April with bad infection, altered and was transferred to [facility]. He had workup for altered mental status which was negative and was labeled as delirium/medication induced. He has CK D stage IV with a baseline creatinine of 2.0 MG per DL. While in the hospital his creatinine was 2.7-2.8 MG per DL. He was sent back to the hospital here for altered mental status, family at bedside. He admits dementia but no confusion. No nausea vomiting diarrhea, decreased oral intake. Urine analysis concern for UTI. 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, gait dysfunction-uses walker, bilateral pedal/ankle edema, PE 08/2019, chronic low back pain, past vertebral fractures, minimal CAD, shingelles twice, past R heel wound, elevated lipids in the past, History of Any Multi-Drug Resistant Organisms: None Reported Past Surgical History: Heart Catheterization, Orthopedic Surgery Additional Past Surgical History / Comment(s): excision of uvular lesion(benign) 2009, colonoscopy, dave knee arthroscopy, rt rotator cuff sx, moles removed from back(benign), bone marrow aspiration/bx, stem cell transplant 2015, Past Anesthesia/Blood Transfusion Reactions: No Reported Reaction Past Psychological History: No Psychological Hx Reported Smoking Status: Never smoker Past Alcohol Use History: None Reported Past Drug Use History: None Reported - Past Family History Father Family Medical History: Renal Disease, Vascular Disorder Additional Family Medical History / Comment(s): aaa. Father is . Mother Family Medical History: No Reported History Additional Family Medical History / Comment(s): mom is healthy Medications and Allergies Home Medications Medication Instructions Recorded Confirmed Type Famotidine [Pepcid] 20 mg PO DAILY@0600 04/15/19 05/16/22 History Apixaban [Eliquis] 5 mg PO BID@0900,2100 10/03/19 05/16/22 History Aspirin 81 mg PO DAILY@0900 05/16/22 05/16/22 History Atorvastatin Calcium [Lipitor] 40 mg PO HS@2100 05/16/22 05/16/22 History Magnesium Oxide 400 mg PO DAILY@0900 05/16/22 05/16/22 History Allergies Allergy/AdvReac Type Severity Reaction Status Date / Time sulfamethoxazole Allergy Rash/Hives Verified 05/16/22 19:11 [From Bactrim] trimethoprim [From Bactrim] Allergy Rash/Hives Verified 05/16/22 19:11 Physical Exam Vitals: Vital Signs Temp Pulse Pulse Resp BP BP Pulse Ox 05/17/22 11:29 98.1 F 83 17 122/79 99 05/17/22 05:00 98.3 F 85 18 133/82 98 05/16/22 19:45 98.1 F 80 18 122/72 100 05/16/22 18:13 97.9 F 78 18 125/74 98 05/16/22 16:31 80 18 123/72 100 05/16/22 13:54 97.6 F 82 16 124/86 100 Intake and Output 05/16/22 05/17/22 05/17/22 22:59 06:59 14:59 Intake Total 800 Output Total 2 Balance 800 -2 Intake: Intake, IV Titration 800 Amount Sodium Chloride 0.9% 1, 750 000 ml @ 75 mls/hr IV . [id number] [facility] Rx#:[id number] cefTRIAXone 1 gm In 50 Sodium Chloride 0.9% 50 ml @ 100 mls/hr IVPB Q24HR [facility] Rx#:[id number] Output: Urine 1 Stool 1 Other: Voiding Method Urinal # Voids 2 Weight 95.254 kg 95.254 kg No acute distress S1-S2 heard Decreased breath sounds Abdomen soft No edema Results - Lab Results Most recent lab results Calcium 8.0 mg/dL (8.7-10.3) L 05/17/22 05:20 Phosphorus 4.5 mg/dL (2.5-4.5) 05/16/22 15:37 Magnesium 2.2 mg/dL (1.6-2.3) 05/16/22 15:37 05/17/22 05:20 05/17/22 05:20 Assessment and Plan Assessment: #1 acute kidney injury suspect prerenal physiology with volume depletion secondary to decreased oral intake. #2 CK D stage IV secondary to multiple myeloma. Creatinine used to be around 2.0 MG per DL, lately around 2.7-2.8 MG per DL. #3 multiple myeloma, currently not on chemotherapy #4 complicated UTI #5 metabolic acidosis. Plan: #1 renal function stable. Slightly higher than baseline, DUNCAN/progressive on a kidney disease. #2 continue with IV fluids. #3 encourage oral intake #4 avoid nephrotoxic agents and hypotensive episodes.
--- NOTE | 2022-05-17 14:36 | P.CONS ---
History of Present Illness - Reason for Consult Consult date: 05/17/22 MM Requesting physician: Rajeev Burnette - Chief Complaint DUNCAN on CKD - History of Present Illness Mr. Paul is a very pleasant 67-year-old gentleman, patient of Dr. Browning, with multiple comorbidities including a history of PE, CAD, CKD, and multiple myeloma. Has had recent admissions for persistent left lower extremity infection, most recently couple weeks ago when he was treated with IV antibiotics and course was complicated by confusion and lethargy. He was transferred to [facility] and slowly improved after stopping narcotics and as his infection started to improve. Extensive workup was unremarkable. Now mentation is back to normal. He was discharged from [facility] subacute rehab and presents here now with acute on chronic kidney disease. He otherwise feels well. Creatinine on presentation was 3.13.2 from a baseline of 1. 92. Workup so far with UA suggestive of UTI, started on antibiotics. We were consulted for his underlying multiple myeloma. He has not been on myeloma treatment with Kyprolis, pomalyst, and decadron due to persistent left lower extremity infection. Renal ultrasound was negative for hydronephrosis. Oncologic history: Mr. Paul has a long history of treatment for multiple myeloma. Initially presented with progressive back pain that started in August 2015. Workup ultimately revealed elevated calcium, protein, creatinine, decreased hemoglobin, IgG lambda monoclonal protein, M protein 6.8 g/dL normal kappa lambda ratio. He also had osteoporotic compression fractures. 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 Started RVD 01/11/16, completed 4 cycles, repeat bone marrow revealed minimal residual disease. Underwent autologous stem cell transplant 08/27/16. Started maintenance revlimid end of December 2016, with doses held and reduced for pancytopenia over the years he was on it. He started to have worsening back pain in January 2019, MRI of his lumbar spine 03/10/19 revealed progressing soft tissue mass at L2 causing compression of the thecal sac and L3 nerve root and new paraspinal soft tissue mass at L4-L5, M-protein was up to 2.2gm/dl, Ig level up to 3019mg/dl, free lambda level 148.9mg/L, ratio of 0.04, normal creatinine and calcium, repeat skeletal bone survey revealed no changes. 04/07/19 he started darzalex/pomalyst/decadron. April 2019 he had disseminated zoster and requires viral prophylaxis/suppression medication on active MM treatment. He was admitted early Aug 2019 for shortness of breath, chest pain, hypotension and mild tachycardia. CT of the chest was performed revealing pulmonary embolism, he continues on eliquis to current. Patient followed up with Dr. Browning in early March, c/o progressive back pain, imaging revealed some progression in vertebral bony lesions. IV regimen changed to kyrpolis, cont on pomalyst and dex as prescribed. S/P C1 D1. 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, gait dysfunction-uses walker, bilateral pedal/ankle edema, PE 08/2019, chronic low back pain, past vertebral fractures, minimal CAD, shingelles twice, past R heel wound, elevated lipids in the past, History of Any Multi-Drug Resistant Organisms: None Reported Past Surgical History: Heart Catheterization, Orthopedic Surgery Additional Past Surgical History / Comment(s): excision of uvular lesion(benign) 2009, colonoscopy, dave knee arthroscopy, rt rotator cuff sx, moles removed from back(benign), bone marrow aspiration/bx, stem cell transplant 2015, Past Anesthesia/Blood Transfusion Reactions: No Reported Reaction Past Psychological History: No Psychological Hx Reported Smoking Status: Never smoker Past Alcohol Use History: None Reported Past Drug Use History: None Reported - Past Family History Father Family Medical History: Renal Disease, Vascular Disorder Additional Family Medical History / Comment(s): aaa. Father is . Mother Family Medical History: No Reported History Additional Family Medical History / Comment(s): mom is healthy Medications and Allergies Home Medications Medication Instructions Recorded Confirmed Type Famotidine [Pepcid] 20 mg PO DAILY@0600 04/15/19 05/16/22 History Apixaban [Eliquis] 5 mg PO BID@0900,2100 10/03/19 05/16/22 History Aspirin 81 mg PO DAILY@0900 29/22 07/29/22 History Atorvastatin Calcium [Lipitor] 40 mg PO HS@2100 05/16/22 05/16/22 History Magnesium Oxide 400 mg PO DAILY@89905/16/22 05/16/22 History Allergies Allergy/AdvReac Type Severity Reaction Status Date / Time sulfamethoxazole Allergy Rash/Hives Verified 05/16/22 19:11 [From Bactrim] trimethoprim [From Bactrim] Allergy Rash/Hives Verified 05/16/22 19:11 Physical Exam Vitals: Vital Signs Temp Pulse Pulse Resp BP BP Pulse Ox 05/17/22 05:00 98.3 F 85 18 133/82 98 05/16/22 19:45 98.1 F 80 18 122/72 100 05/16/22 18:13 97.9 F 78 18 125/74 98 05/16/22 16:31 80 18 123/72 100 05/16/22 13:54 97.6 F 82 16 124/86 100 Intake and Output 05/16/22 05/17/22 05/17/22 22:59 06:59 14:59 Intake Total 800 Output Total 2 Balance 800 -2 Intake: Intake, IV Titration 800 Amount Sodium Chloride 0.9% 1, 750 000 ml @ 75 mls/hr IV . [id number] [facility] Rx#:[id number] cefTRIAXone 1 gm In 50 Sodium Chloride 0.9% 50 ml @ 100 mls/hr IVPB Q24HR [facility] Rx#:[id number] Output: Urine 1 Stool 1 Other: Voiding Method Urinal # Voids 2 Weight 95.254 kg General: No acute distress HEENT: No scleral icterus. Conjunctival pallor. Neck: Supple Lungs: No respiratory distress Heart: Regular rate Abdomen: Nondistended Neuro: Alert and oriented 3 Skin: No jaundice. Overall pale. Psych: Appropriate affect Results CBC & Chem 7: 05/17/22 05:20 05/17/22 05:20 Labs: Abnormal Lab Results - Last 24 Hours (Table) 05/16/22 05/16/22 05/16/22 Range/Units 15:37 15:37 15:37 RBC 2.74 L (4.30-5.90) m/uL Hgb 8.5 L (13.0-17.5) gm/dL Hct 27.1 L (39.0-53.0) % MCV (80.0-97.0) fL MCHC (32.0-37.0) g/dL RDW 18.1 H (11.5-15.5) % Lymphocytes # 0.5 L (1.0-4.8) k/uL PT 12.4 H (9.0-12.0) sec INR 1.2 H (<1.2) Sodium 134 L (137-145) mmol/L Carbon Dioxide 21 L (22-30) mmol/L Creatinine 3.17 H (0.66-1.25) mg/dL Est GFR (CKD-EPI)AfAm (60.0-200.0) Est GFR (CKD-EPI)NonAf (60.0-200.0) BUN/Creatinine Ratio (12.00-20.00) Ratio Calcium (8.7-10.3) mg/dL Total Protein 5.2 L (6.3-8.2) g/dL Albumin 2.7 L (3.5-5.0) g/dL Urine Protein (Negative) Urine Blood (Negative) Ur Leukocyte Esterase (Negative) Urine RBC (0-5) /hpf Urine WBC (0-5) /hpf Urine WBC Clumps (None) /hpf Urine Mucus (None) /hpf Urine Yeast (Budding) (None) /hpf 05/16/22 05/17/22 05/17/22 Range/Units 15:37 05:20 05:20 RBC 2.65 L (4.30-5.90) m/uL Hgb 7.8 L (13.0-17.5) gm/dL Hct 26.7 L (39.0-53.0) % MCV 100.8 H (80.0-97.0) fL MCHC 29.2 L (32.0-37.0) g/dL RDW 18.5 H (11.5-15.5) % Lymphocytes # 0.40 L (1.0-4.8) k/uL PT (9.0-12.0) sec INR (<1.2) Sodium (137-145) mmol/L Carbon Dioxide (22-30) mmol/L Creatinine 3.2 H (0.66-1.25) mg/dL Est GFR (CKD-EPI)AfAm 21.9 L (60.0-200.0) Est GFR (CKD-EPI)NonAf 18.9 L (60.0-200.0) BUN/Creatinine Ratio 4.97 L (12.00-20.00) Ratio Calcium 8.0 L (8.7-10.3) mg/dL Total Protein (6.3-8.2) g/dL Albumin (3.5-5.0) g/dL Urine Protein 1+ H (Negative) Urine Blood Trace H (Negative) Ur Leukocyte Esterase Large H (Negative) Urine RBC 11 H (0-5) /hpf Urine WBC >182 H (0-5) /hpf Urine WBC Clumps Few H (None) /hpf Urine Mucus Rare H (None) /hpf Urine Yeast (Budding) Moderate H (None) /hpf Assessment and Plan Assessment: 1. MM 2. DUNCAN on CKD 3. LLE infection 4. Anemia due to chronic disease and MM Plan: Mr. Paul is a very pleasant 67-year-old gentleman with multiple comorbidities including multiple myeloma, off of treatment for a few months due to persistent left lower extremity infection, who is here from subacute rehab for acute on chronic kidney disease. Creatinine 3.2 from a baseline of 1. 92. Continues to have anemia due to chronic disease and myeloma. Being treated for possible UTI. Unclear why he is having renal dysfunction at this point. We'll need to rule out that this is from myeloma as he has been off of treatment for a while. Most recently was on treatment with Kyprolis, pomalyst, and decadron. We will check SPEP, immunoglobulins, and FLC. Complete anemia workup and supplement iron and B12 and folate as needed. Hemoglobin slightly lower than his baseline at 7.8 this morning from a baseline of 9. Supportive transfusion, irradiated blood products for hemoglobin less than 7. We'll continue to follow patient with you. Discussed with patient and his family at bedside and they're agreeable to the plan. All of their questions were answered.
[2022-05-17] MEDS: ATORVASTATIN 40 MG TAB PO SCH (20:00)
[2022-05-18] MEDS: FAMOTIDINE 20 MG TAB PO SCH (05:15)
[2022-05-18 05:35] LABS: Anisocytosis Slight; Basophils % (A) 0 %; Eosinophils # (A) 0.2 k/uL (0-0.7); Eosinophils % (A) 4 %; HCT 24.3 % (39.0-53.0); HGB 7.4 gm/dL (13.0-17.5); Hypochromasia Marked; Lymphocytes # (A) 0.4 k/uL (1.0-4.8); Lymphocytes % (A) 8 %; MCH 31.2 pg (25.0-35.0); MCHC 30.5 g/dL (31.0-37.0); MCV 102.2 fL (80.0-100.0); Macrocytosis Moderate; Mean Platelet Volume 7.8; Monocytes # (A) 0.4 k/uL (0-1.0); Monocytes % (A) 9 %; Neutrophils # (A) 3.7 k/uL (1.3-7.7); Neutrophils % (A) 76 %; Platelet Count 302 k/uL (150-450); RBC 2.38 m/uL (4.30-5.90); RDW 18.2 % (11.5-15.5); WBC 4.9 k/uL (3.8-10.6)
[2022-05-18 05:51] LABS: African American GFR (CKD) 25 (>60 ml/min/1.73 sqM); Anion Gap 6 mmol/L; Blood Urea Nitrogen 14 mg/dL (9-20); Calcium 7.5 mg/dL (8.4-10.2); Carbon Dioxide 18 mmol/L (22-30); Chloride 115 mmol/L (98-107); Glucose 78 mg/dL (74-99); Non-African American GFR(CKD) 22 (>60 ml/min/1.73 sqM); Potassium 3.8 mmol/L (3.5-5.1); Sodium 139 mmol/L (137-145)
[2022-05-18] MEDS: ASPIRIN 81 MG PO SCH (08:14)
[2022-05-18] MEDS: APIXABAN 2.5 MG TABLET PO SCH ×2 (08:14→21:15)
[2022-05-18] MEDS: MAGNESIUM OXIDE 400 MG TAB PO SCH (08:14)
[2022-05-18] MEDS: SODIUM CHLORIDE 0.9% 1,000 ML IV SCH ×2 (08:17→19:06)
[2022-05-18 09:07] LABS: % Iron Saturation 35.19 (15.00-50.00)
[2022-05-18 09:23] LABS: Reticulocyte % 3.14 % (0.10-1.80)
[2022-05-18 10:06] LABS: Immunoglobulin M 42.2 mg/dL (40.0-280.0)
[2022-05-18 10:18] LABS: Immunoglobulin A 8.1 mg/dL (60.0-350.0)
--- NOTE | 2022-05-18 11:39 | P.PN ---
Subjective Progress Note Date: 05/18/22 Patient awake and alert and answering questions. He has no acute complaints. is at bedside and she believes that he is getting stronger. Patient states that he is urinating well. He is denying any dysuria. Objective - Vital Signs Vital signs: Vital Signs Temp 97.9 F 05/18/22 04:52 Pulse 82 05/18/22 04:52 Resp 18 05/18/22 04:52 BP 126/79 05/18/22 04:52 Pulse Ox 100 05/18/22 04:52 FiO2 Intake & Output 05/17/22 05/18/22 05/18/22 18:59 06:59 18:59 Output Total 4 1 Balance -4 -1 Weight 95.254 kg Output: Urine 2 Stool 2 1 Other: Voiding Method Urinal # Voids 2 - Exam General examination - Alert and Oriented 3 in NAD, appears chronically debilitated Heart - + S1S2 no murmurs Lungs - Clear to auscultation Abdomen soft NT ND +ve BS Extremities - No edema, bandage on the left foot is intact and dry [employer]ODUCT DEVELOPMENT - Moving all 4 extremities spontaneously Psych - Calm and cooperative - Labs CBC & Chem 7: 05/18/22 05:02 05/18/22 05:02 Labs: Abnormal Lab Results - Last 24 Hours (Table) 05/16/22 05/18/22 05/18/22 Range/Units 15:37 05:02 05:02 RBC (4.30-5.90) m/uL Hgb (13.0-17.5) gm/dL Hct (39.0-53.0) % MCV (80.0-100.0) fL MCHC (31.0-37.0) g/dL RDW (11.5-15.5) % Lymphocytes # (1.0-4.8) k/uL Retic Count 3.14 H (0.10-1.80) % Haptoglobin 248.0 H (31.2-198.0) mg/dL Chloride (98-107) mmol/L Carbon Dioxide (22-30) mmol/L Creatinine (0.66-1.25) mg/dL Calcium (8.4-10.2) mg/dL Transferrin 164.0 L (204.0-354.0) mg/dL IgG (700.0-1600.0) mg/dL IgA (60.0-350.0) mg/dL 05/18/22 05/18/22 05/18/22 Range/Units 05:02 05:02 05:02 RBC 2.38 L (4.30-5.90) m/uL Hgb 7.4 L (13.0-17.5) gm/dL Hct 24.3 L (39.0-53.0) % MCV 102.2 H (80.0-100.0) fL MCHC 30.5 L (31.0-37.0) g/dL RDW 18.2 H (11.5-15.5) % Lymphocytes # 0.4 L (1.0-4.8) k/uL Retic Count (0.10-1.80) % Haptoglobin (31.2-198.0) mg/dL Chloride 115 H (98-107) mmol/L Carbon Dioxide 18 L (22-30) mmol/L Creatinine 2.86 H (0.66-1.25) mg/dL Calcium 7.5 L (8.4-10.2) mg/dL Transferrin (204.0-354.0) mg/dL IgG 573.0 L (700.0-1600.0) mg/dL IgA 8.1 L (60.0-350.0) mg/dL Microbiology - Last 24 Hours (Table) 05/16/22 18:21 Blood Culture - Preliminary Blood No Growth after 24 hours Assessment and Plan Assessment: Acute kidney injury on CK D stage III -Likely due to multiple myeloma -Nephrology and hematology on board -IV fluids -Avoid nephrotoxic medication -Improving UTI -UA on admission was indicated and UTI. Patient not a good historian so started him on antibiotics. Unfortunately urine culture not sent in the ED -Repeat UA with urine culture reflux -We'll start patient on IV Rocephin Recent admission for left foot wound and cellulitis that required multiple debridement -Wound with bandages that are intact and dry -There is no surrounding cellulitis. -Continue routine wound care -Consult wound care Anemia of chronic kidney disease and multiple myeloma -Hemoglobin is gradually trending down which could be dilutional -No overt signs of bleeding -Hematology on board History of multiple myeloma -Consult hematology History of pulmonary embolism -Resume Eliquis Chronic back pain -Only Tylenol for pain -No opioids as it may have been the etiology of his encephalopathy on previous admission. CODE STATUS:full code DVT prophylaxis: Eliquis Anticipated length of stay: Depending on clinical course Anticipated discharge place: Patient will return back to half-way facility once medically stable
--- NOTE | 2022-05-18 12:51 | P.PN ---
Subjective Progress Note Date: 05/18/22 Follow-up for acute kidney injury. Feeling better today. No nausea vomiting or diarrhea. No acute documented ins and outs. Objective - Vital Signs Vital signs: Vital Signs Temp 97.9 F 05/18/22 11:51 Pulse 77 05/18/22 11:51 Resp 17 05/18/22 11:51 BP 121/77 05/18/22 11:51 Pulse Ox 99 05/18/22 11:51 FiO2 Intake & Output 05/17/22 05/18/22 05/18/22 18:59 06:59 18:59 Output Total 4 1 Balance -4 -1 Weight 95.254 kg Output: Urine 2 Stool 2 1 Other: Voiding Method Urinal # Voids 2 - Exam No acute distress S1-S2 heard Lungs clear No edema - Labs CBC & Chem 7: 05/18/22 05:02 05/18/22 05:02 Labs: Abnormal Lab Results - Last 24 Hours (Table) 05/16/22 05/18/22 05/18/22 Range/Units 15:37 05:02 05:02 RBC (4.30-5.90) m/uL Hgb (13.0-17.5) gm/dL Hct (39.0-53.0) % MCV (80.0-100.0) fL MCHC (31.0-37.0) g/dL RDW (11.5-15.5) % Lymphocytes # (1.0-4.8) k/uL Retic Count 3.14 H (0.10-1.80) % Haptoglobin 248.0 H (31.2-198.0) mg/dL Chloride (98-107) mmol/L Carbon Dioxide (22-30) mmol/L Creatinine (0.66-1.25) mg/dL Calcium (8.4-10.2) mg/dL Transferrin 164.0 L (204.0-354.0) mg/dL Lactate Dehydrogenase 412 H (120-246) U/L IgG (700.0-1600.0) mg/dL IgA (60.0-350.0) mg/dL 05/18/22 05/18/22 05/18/22 Range/Units 05:02 05:02 05:02 RBC 2.38 L (4.30-5.90) m/uL Hgb 7.4 L (13.0-17.5) gm/dL Hct 24.3 L (39.0-53.0) % MCV 102.2 H (80.0-100.0) fL MCHC 30.5 L (31.0-37.0) g/dL RDW 18.2 H (11.5-15.5) % Lymphocytes # 0.4 L (1.0-4.8) k/uL Retic Count (0.10-1.80) % Haptoglobin (31.2-198.0) mg/dL Chloride 115 H (98-107) mmol/L Carbon Dioxide 18 L (22-30) mmol/L Creatinine 2.86 H (0.66-1.25) mg/dL Calcium 7.5 L (8.4-10.2) mg/dL Transferrin (204.0-354.0) mg/dL Lactate Dehydrogenase (120-246) U/L IgG 573.0 L (700.0-1600.0) mg/dL IgA 8.1 L (60.0-350.0) mg/dL Microbiology - Last 24 Hours (Table) 05/16/22 18:21 Blood Culture - Preliminary Blood No Growth after 24 hours Assessment and Plan Assessment: #1 acute kidney injury suspect prerenal physiology with volume depletion secondary to decreased oral intake. #2 CK D stage IV secondary to multiple myeloma. Creatinine used to be around 2.0 MG per DL, lately around 2.7-2.8 MG per DL. #3 multiple myeloma, currently not on chemotherapy #4 complicated UTI #5 metabolic acidosis. Plan: #1 renal function stable and improving, close to baseline. #2 continue with IV fluids. Can be stopped by tomorrow morning #3 encourage oral intake #4 avoid nephrotoxic agents and hypotensive episodes. #5 stable from nephrology point of view for discharge to follow-up in the office in 2-3 weeks
[2022-05-18 13:46] LABS: Appearance,Urine Clear (Clear); Bilirubin,Urine Negative (Negative); Blood,Urine Negative (Negative); Color,Urine Colorless; Glucose,Urine (UA) Negative (Negative); Ketones,Urine Negative (Negative); Leukocyte Esterase,Urine Negative (Negative); Nitrite,Urine Negative (Negative); PH, Urine 6.5 (5.0-8.0); Protein,Urine Negative (Negative); Specific Gravity,Urine 1.005 (1.001-1.035); Urobilinogen,Urine <2.0 mg/dL (<2.0)
[2022-05-18] MEDS: ATORVASTATIN 40 MG TAB PO SCH (21:14)
[2022-05-18 21:46] LABS: Protein, Total 4.4 g/dL (6.2-8.2)
[2022-05-19] MEDS: FAMOTIDINE 20 MG TAB PO SCH (06:29)
[2022-05-19] MEDS: MAGNESIUM OXIDE 400 MG TAB PO SCH (07:47)
[2022-05-19] MEDS: ASPIRIN 81 MG PO SCH (07:47)
[2022-05-19] MEDS: APIXABAN 2.5 MG TABLET PO SCH (07:47)
--- NOTE | 2022-05-19 08:57 | P.PN ---
Subjective Patient is seen in follow-up for acute kidney injury on chronic kidney disease. Creatinine 2.86 yesterday. Has been voiding. Oral intake fair. No vomiting or diarrhea. Blood pressure stable. Vital signs are stable. General: Awake. No acute distress. HEENT: Head exam is unremarkable. LUNGS: Breath sounds decreased. HEART: Rate and Rhythm are regular. ABDOMEN: Soft, no distention. EXTREMITITES: No edema. Objective - Vital Signs Vital signs: Vital Signs Temp 97.9 F 05/19/22 04:26 Pulse 79 05/19/22 04:26 Resp 14 05/19/22 04:26 BP 130/72 05/19/22 04:26 Pulse Ox 97 05/19/22 04:26 FiO2 Intake & Output 05/18/22 05/19/22 05/19/22 18:59 06:59 18:59 Intake Total 900 Output Total 1 1 Balance -1 899 Intake: Intake, IV Titration 900 Amount Sodium Chloride 0.9% 1, 900 000 ml @ 75 mls/hr IV . [id number] [facility] Rx#:[id number] Output: Stool 1 1 Other: Voiding Method Urinal Urinal # Voids 4 3 - Labs CBC & Chem 7: 05/18/22 05:02 05/18/22 05:02 Labs: Abnormal Lab Results - Last 24 Hours (Table) 05/16/22 05/18/22 05/18/22 Range/Units 15:37 05:02 05:02 Retic Count 3.14 H (0.10-1.80) % Haptoglobin 248.0 H (31.2-198.0) mg/dL Transferrin 164.0 L (204.0-354.0) mg/dL Lactate Dehydrogenase 412 H (120-246) U/L Total Protein (PEP) 4.4 L (6.2-8.2) g/dL IgG (700.0-1600.0) mg/dL IgA (60.0-350.0) mg/dL 05/18/22 Range/Units 05:02 Retic Count (0.10-1.80) % Haptoglobin (31.2-198.0) mg/dL Transferrin (204.0-354.0) mg/dL Lactate Dehydrogenase (120-246) U/L Total Protein (PEP) (6.2-8.2) g/dL IgG 573.0 L (700.0-1600.0) mg/dL IgA 8.1 L (60.0-350.0) mg/dL Microbiology - Last 24 Hours (Table) 05/16/22 18:21 Blood Culture - Preliminary Blood No Growth after 48 hours Assessment and Plan Plan: Assessment: 1. Acute kidney injury mostly prerenal secondary to hypovolemia and poor intake. Creatinine was up to 3.2 this admission and was 2.86 yesterday. UA benign. 2. Chronic kidney disease stage IV secondary to multiple myeloma. Baseline creatinine near 2 but recently has been in the range of 2.5-2.8. 3. Multiple myeloma. Follows with hematology. Chemotherapy is currently on hold. 4. Metabolic acidosis secondary to acute kidney injury and IV fluids. 5. Anemia of chronic kidney disease and myeloma. Iron replete. Plan: Maintain IV fluids. Encourage oral intake. Add oral bicarb. Add Aranesp. Avoid nephrotoxins. Continue to monitor renal function and urine output.
[2022-05-19] MEDS ORDERED: SODIUM BICARBONATE TAB 650 MG TAB PO SCH (09:00)
[2022-05-19] MEDS ORDERED: DARBEPOETIN ALFA 40 MCG/0.4 ML SYRINGE SQ SCH (09:00)
[2022-05-19 10:07] LABS: African American GFR (CKD) 29 (>60 ml/min/1.73 sqM); Anion Gap 6 mmol/L; Blood Urea Nitrogen 12 mg/dL (9-20); Calcium 7.3 mg/dL (8.4-10.2); Carbon Dioxide 18 mmol/L (22-30); Chloride 113 mmol/L (98-107); Glucose 92 mg/dL (74-99); Non-African American GFR(CKD) 25 (>60 ml/min/1.73 sqM); Potassium 3.9 mmol/L (3.5-5.1); Sodium 137 mmol/L (137-145)
[2022-05-19] MEDS: SODIUM CHLORIDE 0.9% 1,000 ML IV SCH (10:53)
[2022-05-19] MEDS ORDERED: SODIUM BICARB 8.4% 50 ML SYR (1 MEQ/ML) IV STA (10:54)
[2022-05-19 11:00] LABS: Free Kappa Lt Chain Qnt, Serum 0.75 mg/dL (0.33-1.94); Free Lambda Lt Chain Qnt, Seru 3.41 mg/dL (0.57-2.63)
[2022-05-19 12:03] VITALS: BP 145/87; PULSE 80; RESP 18; TEMP 97.8
--- NOTE | 2022-05-19 14:02 | P.PN ---
Subjective Progress Note Date: 05/19/22 Principal diagnosis: Multiple myeloma. Admitted for acute kidney injury from rehab In follow-up today patient is denying any pain, he is tolerating oral intake, no bleeding to report. He is alert and oriented 2 compared to the encephalopathic and not responsive when he was transferred out of here just late last month. He has been participating in rehab and ambulating with a walker. Objective - Vital Signs Vital signs: Vital Signs Temp 97.8 F 05/19/22 11:30 Pulse 80 05/19/22 11:30 Resp 18 05/19/22 11:30 BP 145/87 05/19/22 11:30 Pulse Ox 99 05/19/22 11:30 FiO2 Intake & Output 05/18/22 05/19/22 05/19/22 18:59 06:59 18:59 Intake Total 900 Output Total 1 1 Balance -1 899 Intake: Intake, IV Titration 900 Amount Sodium Chloride 0.9% 1, 900 000 ml @ 75 mls/hr IV . [id number] [facility] Rx#:[id number] Output: Stool 1 1 Other: Voiding Method Urinal Urinal # Voids 4 3 1 # Bowel Movements 1 - Constitutional General appearance: Present: average body habitus, cooperative, no acute distress - EENT Eyes: Present: anicteric sclerae, EOMI ENT: Present: hearing grossly normal - Respiratory Respiratory: bilateral: CTA - Cardiovascular Rhythm: regular Heart sounds: normal: S1, S2 Abnormal Heart Sounds: Absent: systolic murmur, diastolic murmur, rub, S3 Gallop, S4 Gallop, click, other - Peripheral edema leg Peripheral Edema: bilateral: None - Gastrointestinal General gastrointestinal: Present: normal bowel sounds, soft - Integumentary Integumentary Comment(s): Left lower extremity wounds are much improved, mostly healed except for an area on the dorsal aspect of the foot that is covered in a small dressing - Neurologic Neurologic: Present: CNII-XII intact (Grossly) - Musculoskeletal Musculoskeletal: Present: generalized weakness - Psychiatric Psychiatric: Present: A&O x's 3, appropriate affect, intact judgment & insight - Labs CBC & Chem 7: 05/18/22 05:02 05/19/22 09:12 Labs: Abnormal Lab Results - Last 24 Hours (Table) 07/31/22 08/01/22 Range/Units 05:02 09:12 Chloride 113 H (98-107) mmol/L Carbon Dioxide 18 L (22-30) mmol/L Creatinine 2.54 H (0.66-1.25) mg/dL Calcium 7.3 L (8.4-10.2) mg/dL Total Protein (PEP) 4.4 L (6.2-8.2) g/dL Free Lambda LC, Quant 3.41 H (0.57-2.63) mg/dL Microbiology - Last 24 Hours (Table) 05/16/22 18:21 Blood Culture - Preliminary Blood No Growth after 48 hours - Imaging and Cardiology Renal ultrasound report reviewed Assessment and Plan (1) DUNCAN (acute kidney injury) Current Visit: Yes Status: Acute Priority: High Code(s): N17.9 - ACUTE KIDNEY FAILURE, UNSPECIFIED SNOMED Code(s): 07374723 (2) Multiple myeloma Current Visit: No Status: Chronic Priority: Medium Code(s): C90.00 - MULTIPLE MYELOMA NOT HAVING ACHIEVED REMISSION SNOMED Code(s): 942353762 Plan: Acute kidney injury on admission. Patient has been seen by Nephrology. His creatinine has improved with supportive care. Renal ultrasound no evidence of obstruction or hydronephrosis. He is being treated for UTI. Patient is on Aranesp for anemia of chronic kidney disease Patient is on eliquis for history of PE 08/2019. Patient has been off myeloma treatment for just over a month because of acute illness, severe infection. Myeloma labs have been ordered for evaluation. So far, labs that have resulted are stable. He is participating in rehabilitation. Once he is discharged from rehabilitation he will be able to resume treatment for myeloma.
--- NOTE | 2022-05-19 14:04 | P.DS ---
Providers Date of admission: 05/16/22 17:49 Expected date of discharge: 05/19/22 Attending physician: Rajeev Burnette MD Consults: 05/16/22 17:41 Consult Physician Urgent Consulting Provider: Yoan Heaton Consult Reason/Comments: andrew/ckd, fungal uti, hx multiple myeloma Do you want consulting provider notified?: Yes 05/16/22 21:59 Consult Physician Urgent Consulting Provider: Shawn Browning Consult Reason/Comments: multiple myeloma, worsening kidney fx, family request Do you want consulting provider notified?: Yes Primary care physician: [facility] Course: Patient is a 67-year-old male with a past medical history of multiple myeloma who is currently undergoing chemotherapy with Dr. Browning, pulmonary embolism, cellulitis, coronary artery disease, dyslipidemia who was recently admitted for left lower extremity abscess and cellulitis that required multiple debridement and wound cultures grew Pseudomonas was being treated with IV antibiotics. He had a complicated hospital course at that time as patient was getting more confused during the hospital stay. He subsequently required intubation to protect his airways. Patient had extensive workup for his altered mental status. Patient was then transferred to [facility] for further workup. Per at bedside patient had extensive workup done at [facility] and everything came back negative. His mental status did gradually improve while he was at [facility]. She states that the doctors there told him that it was due to pain medications and his infection. [facility] Patient's labs were checked at the penitentiary facility and is found to have acute kidney injury on CK D so patient was sent to our emergency room. Patient had a UA that showed possible UTI with yeast so he was given Diflucan. Patient had a renal ultrasound done that was negative for hydronephrosis. Patient will be admitted for further workup of his acute kidney injury. Patient's main complaint currently is when his appointment to eat. states that he did not get any lunch. Patient was started on Rocephin for treatment and UTI. Initial urinalysis showed large leukocyte esterase. Unfortunately, urine culture was not collected at that time. Repeat urinalysis was negative. Nephrology was consulted for acute kidney injury on chronic kidney disease. Nephrology recommended IV hydration. His creatinine on admission was 3.17 and 2.54 at the time of discharge. Nephrology recommended adding Aranesp along with sodium bicarb supplementation. His mentation improved during his hospitalization. Patient was seen and examined on 05/19/2022. He reported improvement in his symptoms with complaints of only fatigue and weakness. He was deemed stable for discharge back to [facility]. Advised to complete another 4 days of Keflex for treatment UTI and cellulitis. He was advised to follow-up with his PCP within 1-2 days of discharge. He was advised to follow-up with nephrology within 1 week of discharge. Advised to repeat BMP within 3 days of discharge. Advised to take sodium bicarb for the next 7 days. General: [non toxic], [no distress], [appears at stated age] Derm: [warm], [dry] Head: [atraumatic], [normocephalic], [symmetric] Eyes: [EOMI], [no lid lag], [anicteric sclera] Mouth: [no lip lesion], [mucus membranes moist] Cardiovascular: [S1S2 reg], [no murmur] Lungs: [CTA bilateral], [no rhonchi, no rales] , [no accessory muscle use] Ext: [no gross muscle atrophy], [no edema], [no contractures] Neuro: [no focal neuro deficits] Psych: [Alert], [oriented], [appropriate affect] Discharge diagnosis: Acute kidney injury on chronic kidney disease stage III Metabolic acidosis Urinary tract infection Left foot wound status post debridement Anemia of chronic disease Multiple myeloma History of pulmonary embolus Chronic back pain This complex discharge took over 45 minutes to complete. Pertinent Studies: EKG Renal US Patient Condition at Discharge: Stable Plan - Discharge Summary Discharge Rx Participant: Yes New Discharge Prescriptions: New Darbepoetin Jv [Aranesp] 40 mcg SQ Q7D each Sodium Bicarbonate Tab 650 mg PO BID 7 Days tab Ondansetron Odt [Zofran Odt] 4 mg PO Q8HR PRN #30 tab PRN Reason: Nausea And Vomiting Cephalexin [Keflex] 250 mg PO Q6HR #16 cap Continue Famotidine [Pepcid] 20 mg PO DAILY@0600 Apixaban [Eliquis] 5 mg PO BID@0900,2100 Aspirin 81 mg PO DAILY@0900 Magnesium Oxide 400 mg PO DAILY@0900 Atorvastatin Calcium [Lipitor] 40 mg PO HS@2100 Discharge Medication List Famotidine [Pepcid] 20 mg PO DAILY@0604/15/19 [History] Apixaban [Eliquis] 5 mg PO BID@10/03/19 [History] Aspirin 81 mg PO DAILY@89905/16/22 [History] Atorvastatin Calcium [Lipitor] 40 mg PO HS@209905/16/22 [History] Magnesium Oxide 400 mg PO DAILY@89905/16/22 [History] Cephalexin [Keflex] 250 mg PO Q6HR #16 cap 05/19/22 [Rx] Darbepoetin Vj [Aranesp] 40 mcg SQ Q7D each 05/19/22 [Rx] Ondansetron Odt [Zofran Odt] 4 mg PO Q8HR PRN #30 tab 05/19/22 [Rx] Sodium Bicarbonate Tab 650 mg PO BID 7 Days tab 05/19/22 [Rx] Follow up Appointment(s)/Referral(s): Elkin Pierson MD [Primary Care Provider] - 1-2 days Horacio Alston DO [STAFF PHYSICIAN] - 1 Week Ambulatory/Diagnostic Orders: Basic Metabolic Panel [LAB.AMB] Time Frame: 3 Days, Location: None Selected Patient Instructions/Handouts: Chronic Kidney Disease Diet (DC) Activity/Diet/Wound Care/Special Instructions: Diet: Renal, Cardiac FU PCP within 1-2 days of DC. FU Nephrology within 1 week of DC. Take all medications as advised. Come back to the ED for worsening altered mentation, chest pain, shortness of breath, palpitations, lightheadedness. Discharge Disposition: TRANSFER TO SNF/ECF
[2022-05-19] MEDS ORDERED: APIXABAN 5 MG TAB PO SCH (21:00)
[2022-05-21 14:32] LABS: Albumin 2.25 g/dL (3.80-4.90); Gamma Globulin 0.48 g/dL (0.70-1.50)
== END 2022-05-19 15:20 ==
LOC: EC 13:45 → 5NMEDONC 17:49
PROVIDERS: ADMIT Internal Medicine; ATTEND Internal Medicine
DX: D63.1 Anemia in chronic kidney disease (principal); N18.5 Chronic kidney disease, stage 5; D63.0 Anemia in neoplastic disease; C90.00 Multiple myeloma not having achieved remission; E86.1 Hypovolemia; E87.2 Acidosis; N39.0 Urinary tract infection, site not specified; K21.9 Gastro-esophageal reflux disease without esophagitis; F03.90 Unspecified dementia, unspecified severity, without behavioral disturbance, psychotic disturbance, mood disturbance, and anxiety; R60.9 Edema, unspecified; I25.10 Atherosclerotic heart disease of native coronary artery without angina pectoris; Z94.84 Stem cells transplant status; E78.5 Hyperlipidemia, unspecified; B37.49 Other urogenital candidiasis; G62.9 Polyneuropathy, unspecified; G89.29 Other chronic pain; M54.50 Low back pain, unspecified; R26.9 Unspecified abnormalities of gait and mobility; Z98.890 Other specified postprocedural states; Z86.711 Personal history of pulmonary embolism; Z86.19 Personal history of other infectious and parasitic diseases; Z79.01 Long term (current) use of anticoagulants; Z79.82 Long term (current) use of aspirin; Z79.52 Long term (current) use of systemic steroids; Z79.899 Other long term (current) drug therapy; Z88.2 Allergy status to sulfonamides
CPT/HCPCS: 96361 ×3; 96365; 96372; 96375; 99285; 36415; 93005; 83880; 80053; 80048 ×3; 82607; 82746; 83540; 83550; 83615; 83735; 84100; 84484; 85025 ×3; 85610; 85045; 85730; 81003; 81001; 87040; 82784 ×3; 84165; 83010; 86334; 83883; 76770; G0378 ×4; J0696 ×4; J0881

== ENCOUNTER 2022-07-07 09:14 | Inpatient (IN) | payer MEDICARE, BC ==
[2022-07-07] MEDS ORDERED: SODIUM CHLORIDE 0.9% 1,000 ML IV STA (09:33)
[2022-07-07] MEDS ORDERED: ACETAMINOPHEN TAB 500 MG TAB PO STA (09:34)
[2022-07-07 10:06] LABS: Anisocytosis Slight; HCT 34.1 % (39.0-53.0); Hypochromasia Moderate; MCH 31.7 pg (25.0-35.0); MCHC 30.9 g/dL (31.0-37.0); MCV 102.7 fL (80.0-100.0); Macrocytosis Moderate; Mean Platelet Volume 9.7; Platelet Count 180 k/uL (150-450); RBC 3.32 m/uL (4.30-5.90); RDW 19.5 % (11.5-15.5); WBC 2.3 k/uL (3.8-10.6)
[2022-07-07 10:09] LABS: INR 0.9 (<1.2); Partial Thromboplastin Time 23.3 sec (22.0-30.0); Prothrombin Time 10.2 sec (9.0-12.0)
[2022-07-07 10:12] LABS: Albumin 3.1 g/dL (3.5-5.0); Calcium 7.5 mg/dL (8.4-10.2); Magnesium 1.6 mg/dL (1.6-2.3); Potassium 4.7 mmol/L (3.5-5.1); Total Bilirubin 0.9 mg/dL (0.2-1.3); Total Protein 5.1 g/dL (6.3-8.2)
[2022-07-07 10:18] LABS: Eosinophils # (M) 0.07 k/uL (0-0.7); Lymphocytes # (M) 0.12 k/uL (1.0-4.8); Monocytes # (M) 0.67 k/uL (0-1.0); Neutrophils # (M) 1.45 k/uL (1.3-7.7); Neutrophils % (M) 63 %; Nucleated Red Blood Cells 0 /100 WBC (0-0); Total Cells Counted 100
[2022-07-07 10:19] LABS: Polychromasia Present
--- NOTE | 2022-07-07 11:44 | XR ---
EXAMINATION TYPE: XR chest 2V DATE OF EXAM: 07/07/2022 COMPARISON: Chest x-ray 04/21/2022, chest CT 08/24/2019 HISTORY: Syncope TECHNIQUE: Frontal and lateral views of the chest are obtained. FINDINGS: Endotracheal tube and NG tube have been removed. There is no focal air space opacity, pleu ral effusion, or pneumothorax seen. The cardiac silhouette size is within normal limits. The osseo us structures are remarkable for compression deformities of the lower thoracic spine, upper lumbar sp ine. Lucency in the posterior second right rib is better seen on patient's prior CT. Irregularity of the posterior right sixth rib is again noted and is thought present rather than parenchymal lung dens ity. IMPRESSION: No definite cardiopulmonary disease. Patient with chronic bony deformities, consider meta stasis and myeloma.
--- NOTE | 2022-07-07 11:48 | CT ---
EXAMINATION TYPE: CT abdomen pelvis wo con DATE OF EXAM: 07/07/2022 COMPARISON: None INDICATION: pain, fever DLP: 723.2 mGycm, Automated exposure control for dose reduction was used. CONTRAST: 0 mL of Isovue 300. Study performed without Oral Contrast TECHNIQUE: Axial images were obtained from above the diaphragm to the pubic rami in the axial plane a t 5 mm thick sections. Reconstructed images are reviewed on the computer in the coronal plane. FINDINGS: Limited CT sections are obtained the lung bases. Some minimal posterior pleural thickening and/or at electasis may be at the posterior right lung base. Lung bases are otherwise clear.. CT ABDOMEN: Liver: Normal Spleen: Normal Pancreas: Normal Adrenal glands: The adrenal glands are normal. Gallbladder: Gallstones are present. Kidneys: No masses are evident. No hydronephrosis is present. No cysts are present. No renal stone s are identified. Aorta: Vascular calcification is within the aorta. Inferior vena cava: Normal. CT PELVIS: Loops of bowel within the abdomen and pelvis are normal. Scattered diverticuli within the colon. There are inflammatory changes adjacent to the distal descending colon. Correlate for colitis. There may be a diverticulum more superior and diverticulitis could be considered within the differential. N o free air is identified. No abscess formation is evident. The study is performed without oral contrast causing some limitation. Appendix: Normal as visualized. Urinary bladder: Normal. Genitourinary structures: Prostate is normal Osseous structures: No suspicious lytic or sclerotic lesions. IMPRESSIONS: 1. Inflammatory changes adjacent to the distal descending colon. Differential diagnosis should inclu de colitis or diverticulitis. 2. Cholelithiasis
[2022-07-07] MEDS ORDERED: SODIUM CHLORIDE 0.9% 1,000 ML IV ONE (12:21)
[2022-07-07] MEDS ORDERED: PIPERACILLIN-TAZOBACTAM 3.375 GM in SODIUM CHLORIDE 0.9% 100 ML IVPB ONE (13:15)
[2022-07-07 13:45] LABS: HGB 10.5 gm/dL (13.0-17.5)
[2022-07-07] MEDS ORDERED: ACETAMINOPHEN TAB 325 MG TAB PO PRN (14:05)
[2022-07-07] MEDS ORDERED: ONDANSETRON 4 MG/2 ML VIAL IVP PRN (14:05)
[2022-07-07] MEDS ORDERED: NALOXONE 0.4 MG/ML 1 ML VIAL IV PRN (14:05)
--- NOTE | 2022-07-07 14:05 | ED ---
General Adult HPI - General Chief complaint: Syncope Stated complaint: syncope Time Seen by Provider: 07/07/22 09:16 Source: patient, EMS, RN notes reviewed Mode of arrival: EMS Limitations: no limitations - History of Present Illness Initial comments: 67-year-old male presents emergency Department via EMS after syncopal episode at home. Patient states that he hadn't been feeling well this morning states that his; passed out and called 911. Patient states he does not remember this. Patient states that he feels very warm is complaining of lower abdominal pain. Patient states she's had some nausea vomiting no recent bowel movement no dysuria. Patient states he is foster see chemotherapy today for his multiple myeloma. Patient has a different cough congestion or shortness of breath no clubbing 7 headache or dizziness. - Related Data Home Medications Medication Instructions Recorded Confirmed Apixaban [Eliquis] 5 mg PO BID 10/03/19 07/07/22 Aspirin 81 mg PO DAILY 05/16/22 07/07/22 Acyclovir [Zovirax] 400 mg PO BID 07/07/22 07/07/22 Gabapentin 300 mg PO HS 07/07/22 07/07/22 dexAMETHasone 20 mg PO TU 07/07/22 07/07/22 oxyCODONE HCL [OxyIR] 5 mg PO Q6H PRN 07/07/22 07/07/22 Allergies Allergy/AdvReac Type Severity Reaction Status Date / Time sulfamethoxazole Allergy Rash/Hives Verified 07/07/22 11:00 [From Bactrim] trimethoprim [From Bactrim] Allergy Rash/Hives Verified 07/07/22 11:00 Review of Systems ROS Statement: Those systems with pertinent positive or pertinent negative responses have been documented in the HPI. ROS Other: All systems not noted in ROS Statement are negative. 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, gait dysfunction-uses walker, bilateral pedal/ankle edema, PE 08/2019, chronic low back pain, past vertebral fractures, minimal CAD, shingelles twice, past R heel wound, elevated lipids in the past, History of Any Multi-Drug Resistant Organisms: None Reported Past Surgical History: Heart Catheterization, Orthopedic Surgery Additional Past Surgical History / Comment(s): excision of uvular lesion(benign) 2010, colonoscopy, dave knee arthroscopy, rt rotator cuff sx, moles removed from back(benign), bone marrow aspiration/bx, stem cell transplant 2016, Past Anesthesia/Blood Transfusion Reactions: No Reported Reaction Past Psychological History: No Psychological Hx Reported Smoking Status: Never smoker Past Alcohol Use History: None Reported Past Drug Use History: None Reported - Past Family History Father Family Medical History: Renal Disease, Vascular Disorder Additional Family Medical History / Comment(s): aaa. Father is . Mother Family Medical History: No Reported History Additional Family Medical History / Comment(s): mom is healthy General Exam Limitations: no limitations General appearance: alert, in no apparent distress Head exam: Present: atraumatic, normocephalic, normal inspection Eye exam: Present: normal appearance, PERRL, EOMI. Absent: scleral icterus, conjunctival injection, periorbital swelling ENT exam: Present: normal exam, normal oropharynx, mucous membranes moist Neck exam: Present: normal inspection, full ROM. Absent: tenderness, meningismus, lymphadenopathy Respiratory exam: Present: normal lung sounds bilaterally. Absent: respiratory distress, wheezes, rales, rhonchi, stridor Cardiovascular Exam: Present: regular rate, normal rhythm, normal heart sounds. Absent: systolic murmur, diastolic murmur, rubs, gallop, clicks GI/Abdominal exam: Present: soft, tenderness, normal bowel sounds. Absent: distended, guarding, rebound, rigid Back exam: Absent: CVA tenderness (R), CVA tenderness (L) Neurological exam: Present: alert Skin exam: Present: warm, dry, intact, normal color. Absent: rash Course Vital Signs 07/07/22 07/07/22 07/07/22 09:21 10:00 12:08 Temperature 102.9 F H 102.9 F H 99.8 F H Pulse Rate 95 85 86 Respiratory 16 16 18 Rate Blood Pressure 107/66 92/67 89/62 O2 Sat by Pulse 99 96 98 Oximetry 07/07/22 13:43 Temperature Pulse Rate 75 Respiratory 18 Rate Blood Pressure 96/57 O2 Sat by Pulse 98 Oximetry Medical Decision Making - Medical Decision Making 67-year-old male presented for fever, syncopal episode. Patient found to have acute diverticulitis on CT. Patient was started on broad-spectrum antibiotics. Patient is under current chemotherapy treatment will be admitted for IV antibiotics pending blood cultures. - Lab Data Result diagrams: 07/07/22 09:46 07/07/22 09:46 Lab Results 07/07/22 07/07/22 07/07/22 Range/Units 09:46 09:46 09:46 WBC 2.3 L (3.8-10.6) k/uL RBC 3.32 L (4.30-5.90) m/uL Hgb 10.5 L D (13.0-17.5) gm/dL Hct 34.1 L (39.0-53.0) % MCV 102.7 H (80.0-100.0) fL MCH 31.7 (25.0-35.0) pg MCHC 30.9 L (31.0-37.0) g/dL RDW 19.5 H (11.5-15.5) % Plt Count 180 (150-450) k/uL MPV 9.7 Neutrophils % (Manual) 63 % Lymphocytes % (Manual) 5 % Monocytes % (Manual) 29 % Eosinophils % (Manual) 3 % Neutrophils # (Manual) 1.45 (1.3-7.7) k/uL Lymphocytes # (Manual) 0.12 L (1.0-4.8) k/uL Monocytes # (Manual) 0.67 (0-1.0) k/uL Eosinophils # (Manual) 0.07 (0-0.7) k/uL Nucleated RBCs 0 (0-0) /100 WBC Polychromasia Present Hypochromasia Moderate Anisocytosis Slight Macrocytosis Moderate PT 10.2 (9.0-12.0) sec INR 0.9 (<1.2) APTT 23.3 (22.0-30.0) sec Sodium 135 L (137-145) mmol/L Potassium 4.7 (3.5-5.1) mmol/L Chloride 104 (98-107) mmol/L Carbon Dioxide 21 L (22-30) mmol/L Anion Gap 10 mmol/L BUN 32 H (9-20) mg/dL Creatinine 2.21 H (0.66-1.25) mg/dL Est GFR (CKD-EPI)AfAm 34 (>60 ml/min/1.73 sqM) Est GFR (CKD-EPI)NonAf 30 (>60 ml/min/1.73 sqM) Glucose 110 H (74-99) mg/dL Lactic Ac Sepsis Rflx Plasma Lactic Acid Jeromy (0.7-2.0) mmol/L Calcium 7.5 L (8.4-10.2) mg/dL Magnesium 1.6 (1.6-2.3) mg/dL Total Bilirubin 0.9 (0.2-1.3) mg/dL AST 21 (17-59) U/L ALT 13 (4-49) U/L Alkaline Phosphatase 65 (38-126) U/L Troponin I (0.000-0.034) ng/mL Total Protein 5.1 L (6.3-8.2) g/dL Albumin 3.1 L (3.5-5.0) g/dL 07/07/22 07/07/22 07/07/22 Range/Units 09:46 09:54 10:52 WBC (3.8-10.6) k/uL RBC (4.30-5.90) m/uL Hgb (13.0-17.5) gm/dL Hct (39.0-53.0) % MCV (80.0-100.0) fL MCH (25.0-35.0) pg MCHC (31.0-37.0) g/dL RDW (11.5-15.5) % Plt Count (150-450) k/uL MPV Neutrophils % (Manual) % Lymphocytes % (Manual) % Monocytes % (Manual) % Eosinophils % (Manual) % Neutrophils # (Manual) (1.3-7.7) k/uL Lymphocytes # (Manual) (1.0-4.8) k/uL Monocytes # (Manual) (0-1.0) k/uL Eosinophils # (Manual) (0-0.7) k/uL Nucleated RBCs (0-0) /100 WBC Polychromasia Hypochromasia Anisocytosis Macrocytosis PT (9.0-12.0) sec INR (<1.2) APTT (22.0-30.0) sec Sodium (137-145) mmol/L Potassium (3.5-5.1) mmol/L Chloride (98-107) mmol/L Carbon Dioxide (22-30) mmol/L Anion Gap mmol/L BUN (9-20) mg/dL Creatinine (0.66-1.25) mg/dL Est GFR (CKD-EPI)AfAm (>60 ml/min/1.73 sqM) Est GFR (CKD-EPI)NonAf (>60 ml/min/1.73 sqM) Glucose (74-99) mg/dL Lactic Ac Sepsis Rflx Y Plasma Lactic Acid Jeromy 2.6 H* (0.7-2.0) mmol/L Calcium (8.4-10.2) mg/dL Magnesium (1.6-2.3) mg/dL Total Bilirubin (0.2-1.3) mg/dL AST (17-59) U/L ALT (4-49) U/L Alkaline Phosphatase (38-126) U/L Troponin I <0.012 (0.000-0.034) ng/mL Total Protein (6.3-8.2) g/dL Albumin (3.5-5.0) g/dL Disposition Clinical Impression: Diverticulitis, Multiple myeloma, Fever, Syncope Disposition: ADMITTED IP TO THIS HOSP Condition: Fair Referrals: Elkin Pierson MD [Primary Care Provider] - 1-2 days Time of Disposition: 14:05
[2022-07-07 14:15] LABS: Appearance,Urine Clear (Clear); Bilirubin,Urine Negative (Negative); Blood,Urine Negative (Negative); Color,Urine Colorless; Glucose,Urine (UA) Negative (Negative); Ketones,Urine Negative (Negative); Leukocyte Esterase,Urine Negative (Negative); Nitrite,Urine Negative (Negative); PH, Urine 6.5 (5.0-8.0); Protein,Urine Negative (Negative); Specific Gravity,Urine 1.007 (1.001-1.035); Urobilinogen,Urine <2.0 mg/dL (<2.0)
--- NOTE | 2022-07-07 15:07 | P.HPIM ---
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 Upon presentation to the ER he was complaining of lower abdominal pain. On arrival to the ER he had a fever of 102.9. Laboratory analysis was remarkable for a white blood cell count of 2.3, hemoglobin 10.5, sodium 135, BUN 32, creatinine 2.21 (baseline creatinine 2.5), lactic acid 2.6. CT abdomen and pelvis demonstrated inflammatory changes adjacent to the distal colon possible colitis versus diverticulitis. Patient was also noted to have cholelithiasis. In the ER he was given 2 L of normal saline. He was started on Zosyn. Arrangements are made for admission. Patient seen and examined at bedside. He reports he was in his usual state of health until about 4 this morning. He started to have lower abdominal cramping and pain. He then got up to eat breakfast and felt slightly nauseated. His reports that he had a syncopal episode while sitting in his chair at the breakfast table that lasted less than 5 minutes. When he woke back up and there was no prolonged confusional state. He did have an episode of vomiting just after waking. He denies any prodromal symptoms such as chest pain, SOB, palpitations. He denies any history of diverticulitis or colitis. He is currently receiving chemotherapy for multiple myeloma. They report this as a newer therapy. He was having some rigors at home but was unsure if he had a fever. He was feeling in his normal state of health up until yesterday. Of note patient did have a prolonged hospital stay from 04/06/1937 due to left lower external be cellulitis with abscess, multiple vertebral fractures with intractable chronic pain, and acute kidney injury. He developed worsening episodes of confusion and apnea and therefore urology recommended transfer to tertiary care center. Per they were unsure of the cause of his altered mentation other than possibly related to his antibiotics and pain medications. Pertinent positives and negatives as discussed in HPI, a complete review of systems was performed and all other systems are negative. Vital signs reviewed General: nontoxic, no distress, appears at stated age Derm: warm, dry Head: atraumatic, normocephalic, symmetric Eyes: EOMI, no lid lag, anicteric sclera, pupils equal round reactive to light ENT: Nose and ears atraumatic, no thrush, no pharyngeal erythema Neck: No thyromegaly, no cervical lymphadenopathy, trachea midline, supple Mouth: no lip lesion, mucus membranes moist Cardiovascular: S1S2 reg, no murmur, positive posterior tibial pulse bilateral, trace edema b/l LE, capillary refill less than 2 seconds Lungs: clear to auscultation bilateral, no rhonchi, no rales, no wheeze, no accessory muscle use Abdominal: soft, nontender to palpation, no guarding, no appreciable organomegaly, normal bowel sounds Ext: no gross muscle atrophy, muscle strength 5 out of 5 in all 4 extremities, no contractures Neuro: CN II-XII grossly intact, light touch intact all 4 extremities, finger to nose within normal limits, Psych: Alert, oriented, appropriate affect Assessment/Plan: Syncope - Tele - orthostatics - Echo - fall precautions Colitis with severe sepsis Lactic acidosis - ? related to chemo - zosyn - IV fluids - NPO except sips of water - if worse in AM consult surgery and ID Multiple Myeloma - currently on chemo - consult oncology CKD stage 3/4 - IV fluids - consult nephrology - aviod nephrotoxic agents History of pulmonary embolism -Continue Eliquis Neuropathy - gabapentin The patient is admitted with an anticipated greater than 2 midnight stay for evaluation of Colitis with sepsis. Surrogate decision-maker: CODE STATUS:full DVT prophylaxis: eliquis Discussed with: Patient and Anticipated discharge date: in 3-[address]: home A total of 65 minutes was spent on the care of this complex patient more than 50% of the time was spent in counseling and care coordination. Past Medical History Past Medical History: Coronary Artery Disease (CAD), Cancer, Hyperlipidemia, Pulmonary Embolus (PE) Additional Past Medical History / Comment(s): 2016 diagnosed with multiple myeloma-treated with chemo/immunologics/stem cell transplant in 2016- currently on chemo, 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, gait dysfunction-uses walker, bilateral pedal/ankle edema, PE 08/2019, chronic low back pain, past vertebral fractures, minimal CAD, shingelles twice, past R heel wound, elevated lipids in the past, History of Any Multi-Drug Resistant Organisms: None Reported Past Surgical History: Heart Catheterization, Orthopedic Surgery Additional Past Surgical History / Comment(s): excision of uvular lesion(benign) 2009, colonoscopy, dave knee arthroscopy, rt rotator cuff sx, moles removed from back(benign), bone marrow aspiration/bx, stem cell transplant 2016, Past Anesthesia/Blood Transfusion Reactions: No Reported Reaction Past Psychological History: No Psychological Hx Reported Smoking Status: Never smoker Past Alcohol Use History: None Reported Past Drug Use History: None Reported - Past Family History Father Family Medical History: Renal Disease, Vascular Disorder Additional Family Medical History / Comment(s): aaa. Father is . Mother Family Medical History: No Reported History Additional Family Medical History / Comment(s): mom is healthy Medications and Allergies Home Medications Medication Instructions Recorded Confirmed Type Apixaban [Eliquis] 5 mg PO BID 10/03/19 07/07/22 History Aspirin 81 mg PO DAILY 05/16/22 07/07/22 History Acyclovir [Zovirax] 400 mg PO BID 07/07/22 07/07/22 History Gabapentin 300 mg PO HS 07/07/22 07/07/22 History dexAMETHasone 20 mg PO TU 07/07/22 07/07/22 History oxyCODONE HCL [OxyIR] 5 mg PO Q6H PRN 07/07/22 07/07/22 History Allergies Allergy/AdvReac Type Severity Reaction Status Date / Time sulfamethoxazole Allergy Rash/Hives Verified 07/07/22 11:00 [From Bactrim] trimethoprim [From Bactrim] Allergy Rash/Hives Verified 07/07/22 11:00 Physical Exam Osteopathic Statement: *. No significant issues noted on an osteopathic structural exam other than those noted in the History and Physical/Consult. Vitals: Vital Signs Temp Pulse Resp BP Pulse Ox 07/07/22 13:43 75 18 96/57 98 07/07/22 12:08 99.8 F H 86 18 89/62 98 07/07/22 10:00 102.9 F H 85 16 92/67 96 07/07/22 09:21 102.9 F H 95 16 107/66 99 Intake and Output 07/07/22 07/07/22 07/07/22 06:59 14:59 22:59 Other: Weight 90.718 kg Results CBC & Chem 7: 07/07/22 09:46 07/07/22 09:46 Labs: Abnormal Lab Results - Last 24 Hours (Table) 07/07/22 07/07/22 07/07/22 Range/Units 09:46 09:46 09:54 WBC 2.3 L (3.8-10.6) k/uL RBC 3.32 L (4.30-5.90) m/uL Hgb 10.5 L D (13.0-17.5) gm/dL Hct 34.1 L (39.0-53.0) % MCV 102.7 H (80.0-100.0) fL MCHC 30.9 L (31.0-37.0) g/dL RDW 19.5 H (11.5-15.5) % Lymphocytes # (Manual) 0.12 L (1.0-4.8) k/uL Sodium 135 L (137-145) mmol/L Carbon Dioxide 21 L (22-30) mmol/L BUN 32 H (9-20) mg/dL Creatinine 2.21 H (0.66-1.25) mg/dL Glucose 110 H (74-99) mg/dL Plasma Lactic Acid Jeromy 2.6 H* (0.7-2.0) mmol/L Calcium 7.5 L (8.4-10.2) mg/dL Total Protein 5.1 L (6.3-8.2) g/dL Albumin 3.1 L (3.5-5.0) g/dL
[2022-07-07] MEDS ORDERED: LACTATED RINGERS 1,000 ML IV SCH (16:00)
[2022-07-07] MEDS: SODIUM CHLORIDE 0.9% 1,000 ML IV SCH ×2 (16:23→20:35)
[2022-07-07] MEDS: LACTATED RINGERS 500 ML IV SCH ×2 (17:38→17:39)
[2022-07-07] MEDS: PIPERACILLIN-TAZOBACTAM 3.375 GM in SODIUM CHLORIDE 0.9% 100 ML IVPB SCH (20:35)
[2022-07-07] MEDS: APIXABAN 5 MG TAB PO SCH (23:03)
[2022-07-07] MEDS: ACYCLOVIR 200 MG CAP PO SCH (23:03)
[2022-07-07] MEDS: GABAPENTIN 300 MG CAP PO SCH (23:04)
[2022-07-08] MEDS: PIPERACILLIN-TAZOBACTAM 3.375 GM in SODIUM CHLORIDE 0.9% 100 ML IVPB SCH ×3 (03:23→21:05)
[2022-07-08] MEDS: SODIUM CHLORIDE 0.9% 1,000 ML IV SCH ×3 (05:22→21:10)
[2022-07-08 06:47] LABS: ALT 8 U/L (4-49); AST 19 U/L (17-59); African American GFR (CKD) 40 (>60 ml/min/1.73 sqM); Albumin 2.3 g/dL (3.5-5.0); Albumin/Globulin Ratio 1.3; Alkaline Phosphatase 55 U/L (38-126); Anion Gap 7 mmol/L; Blood Urea Nitrogen 26 mg/dL (9-20); Calcium 6.7 mg/dL (8.4-10.2); Carbon Dioxide 18 mmol/L (22-30); Chloride 111 mmol/L (98-107); Globulin 1.8 g/dL; Glucose 75 mg/dL (74-99); Magnesium 1.7 mg/dL (1.6-2.3); Non-African American GFR(CKD) 34 (>60 ml/min/1.73 sqM); Phosphorus 3.3 mg/dL (2.5-4.5); Potassium 4.1 mmol/L (3.5-5.1); Sodium 136 mmol/L (137-145); Total Bilirubin 0.9 mg/dL (0.2-1.3); Total Protein 4.1 g/dL (6.3-8.2)
[2022-07-08 07:27] LABS: Anisocytosis Slight; HCT 28.3 % (39.0-53.0); Hypochromasia Moderate; MCH 32.6 pg (25.0-35.0); MCHC 31.2 g/dL (31.0-37.0); MCV 104.5 fL (80.0-100.0); Macrocytosis Marked; Mean Platelet Volume 8.9; Platelet Count 169 k/uL (150-450); RDW 19.5 % (11.5-15.5); WBC 2.9 k/uL (3.8-10.6)
[2022-07-08 07:28] LABS: HGB 8.8 gm/dL (13.0-17.5)
[2022-07-08] MEDS: ACYCLOVIR 200 MG CAP PO SCH ×2 (08:29→22:38)
[2022-07-08] MEDS: APIXABAN 5 MG TAB PO SCH ×2 (08:29→22:37)
[2022-07-08 08:53] LABS: Eosinophils # (M) 0.15 k/uL (0-0.7); Lymphocytes # (M) 0.09 k/uL (1.0-4.8); Monocytes # (M) 0.73 k/uL (0-1.0); Neutrophils # (M) 1.94 k/uL (1.3-7.7); Neutrophils % (M) 67 %; Nucleated Red Blood Cells 0 /100 WBC (0-0); Total Cells Counted 100
[2022-07-08] MEDS ORDERED: dexAMETHasone 4 MG TAB PO SCH (09:00)
--- NOTE | 2022-07-08 12:48 | P.NPCON ---
History of Present Illness - Reason for Consult acute renal failure - History of Present Illness Patient is a 67-year-old male with underlying history of multiple myeloma and recent acute kidney injury on top of chronic kidney disease in March and April 2022. Patient had prolonged hospitalization with lower extremity cellulitis and abscess formation and chronic pain and was transferred to [facility] and subsequently to inpatient rehab. Serum creatinine was staying around 2.8-2.5 mg/dL in May 2022 and on this admission it was at 1.9. Patient is admitted to the hospital with syncopal episode. Patient does not remember what happened. He was noted to have a temperature of 102.9F. CT of the abdomen revealed possible colitis/diverticulitis. Blood pressure was low with systolic in the 80s on initial admission. Currently maintained on IV fluids No significant urinary symptoms. Review of Systems As per HPI Past Medical History Past Medical History: Coronary Artery Disease (CAD), Cancer, Hyperlipidemia, Pulmonary Embolus (PE) Additional Past Medical History / Comment(s): 2016 diagnosed with multiple myeloma-treated with chemo/immunologics/stem cell transplant in 2015- currently on chemo, 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, gait dysfunction-uses walker, bilateral pedal/ankle edema, PE 08/2019, chronic low back pain, past vertebral fractures, minimal CAD, shingelles twice, past R heel wound, elevated lipids in the past, History of Any Multi-Drug Resistant Organisms: None Reported Past Surgical History: Heart Catheterization, Orthopedic Surgery Additional Past Surgical History / Comment(s): excision of uvular lesion(benign) 2009, colonoscopy, dave knee arthroscopy, rt rotator cuff sx, moles removed from back(benign), bone marrow aspiration/bx, stem cell transplant 2015, Past Anesthesia/Blood Transfusion Reactions: No Reported Reaction Past Psychological History: No Psychological Hx Reported Smoking Status: Never smoker Past Alcohol Use History: None Reported Past Drug Use History: None Reported - Past Family History Father Family Medical History: Renal Disease, Vascular Disorder Additional Family Medical History / Comment(s): aaa. Father is . Mother Family Medical History: No Reported History Additional Family Medical History / Comment(s): mom is healthy Medications and Allergies Home Medications Medication Instructions Recorded Confirmed Type Apixaban [Eliquis] 5 mg PO BID 10/03/19 07/07/22 History Aspirin 81 mg PO DAILY 05/16/22 07/07/22 History Acyclovir [Zovirax] 400 mg PO BID 07/07/22 07/07/22 History Gabapentin 300 mg PO HS 07/07/22 07/07/22 History dexAMETHasone 20 mg PO TU 07/07/22 07/07/22 History oxyCODONE HCL [OxyIR] 5 mg PO Q6H PRN 07/07/22 07/07/22 History Allergies Allergy/AdvReac Type Severity Reaction Status Date / Time sulfamethoxazole Allergy Rash/Hives Verified 07/07/22 11:00 [From Bactrim] trimethoprim [From Bactrim] Allergy Rash/Hives Verified 07/07/22 11:00 Physical Exam Vitals: Vital Signs Temp Pulse Resp BP Pulse Ox 07/08/22 11:35 99.1 F 65 16 106/70 98 07/08/22 08:33 98.7 F 75 18 136/73 99 07/08/22 06:24 117/73 07/08/22 05:00 76 18 129/78 98 07/07/22 23:07 81 18 119/68 98 07/07/22 21:55 99.1 F 07/07/22 16:24 63 18 112/72 98 07/07/22 13:43 75 18 96/57 98 Patient is awake, comfortable, not in any acute distress Examination of the heart S1 and S2 Examination of the lungs bilateral breath sounds are heard Abdomen is soft nontender Examination of the lower extremities shows no significant edema GIMP TACKER exam grossly intact Results - Lab Results Most recent lab results Calcium 6.7 mg/dL (8.4-10.2) L 07/08/22 06:15 Phosphorus 3.3 mg/dL (2.5-4.5) 07/08/22 06:15 Magnesium 1.7 mg/dL (1.6-2.3) 07/08/22 06:15 07/08/22 06:15 07/08/22 06:15 Assessment and Plan Assessment: 1. Acute kidney injury mostly prerenal currently maintained on IV fluids. UA is completely benign 2. Chronic kidney disease NKF stage IV with serum creatinine around 2.8-2.5 mg/dL in May 2022. Patient has had multiple episodes of acute kidney injury mostly in April and May associated with prolonged hospitalization. Creatinine had peaked to 3.5 mg/dL at that time. 3. Syncope associated with hypotension 4. Sepsis etiology likely underlying diverticulitis. Currently maintained on IV antibiotics 5. History of multiple myeloma maintained on chemotherapy 6. History of PE maintained on a liquid was Plan: Continue with IV fluids Repeat labs in a.m. Avoid nephrotoxic agents Check bladder scan rule out urine retention next Thank you for the consultation. We'll continue to follow the patient with you during his hospitalization.
--- NOTE | 2022-07-08 17:46 | CA ---
Transthoracic Echo Report Name: Hernan Paul Age: 67 Gender: M : 1955 Exam Date: 07/08/2022 10:26 Exam Location: [facility] Echo Ht (in): 71 Wt (lb): 200 Ordering Physician: Esperanza Lynn DO Attending/Referring Phys: [id number], Leah Animal Care Service Worker Erika Pradhan RDCS Procedure CPT: Indications: Syncope Cardiac Hx: Technical Quality: Fair Contrast 1: Total Dose (mL): Contrast 2: Total Dose (mL): MEASUREMENTS (Male / Female) Normal Values 2D ECHO LV Diastolic Diameter PLAX 3.9 cm 4.2 - 5.9 / 3.9 - 5.3 cm LV Systolic Diameter PLAX 2.4 cm IVS Diastolic Thickness 1.3 cm 0.6 - 1.0 / 0.6 - 0.9 cm LVPW Diastolic Thickness 1.4 cm 0.6 - 1.0 / 0.6 - 0.9 cm LV Relative Wall Thickness 0.7 LA Volume 51.5 cm??? 18 - 58 / 22 - 52 cm??? M-MODE Aortic Root Diameter MM 3.8 cm LA Systolic Diameter MM 4.4 cm LA Ao Ratio MM 1.2 AV Cusp Separation MM 2.0 cm DOPPLER AV Peak Velocity 126.2 cm/s AV Peak Gradient 6.4 mmHg LVOT Peak Velocity 118.8 cm/s LVOT Peak Gradient 5.6 mmHg MV Area PHT 3.5 cm??? Mitral E Point Velocity 88.0 cm/s Mitral A Point Velocity 110.1 cm/s Mitral E to A Ratio 0.8 MV Deceleration Time 218.4 ms FINDINGS Left Ventricle Mildly increased left ventricular wall thickness. Normal left ventricular systolic function with no obvious regional wall motion abnormalities. Left ventricular ejection fraction is estimated at 55-60 %. Right Ventricle Normal right ventricular size and function. Right Atrium Normal right atrial size. Left Atrium Mildly increased left atrial area. Mitral Valve Structurally normal mitral valve. Mild mitral regurgitation. Aortic Valve No aortic valve stenosis or regurgitation. Tricuspid Valve Mild tricuspid regurgitation. Pulmonic Valve Pulmonic valve not well visualized. Pericardium No pericardial effusion. Aorta Normal size aortic root and proximal ascending aorta. CONCLUSIONS Normal LV systolic function Mild mitral regurgitation Previewed by: Dr. Forrest Pandya MD (Electronically Signed) Final Date: 08 July 2022 17:45
[2022-07-08] MEDS ORDERED: DARBEPOETIN ALFA 60 MCG/0.3 ML SYRINGE SQ SCH (18:00)
--- NOTE | 2022-07-08 18:50 | P.PN ---
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 Upon presentation to the ER he was complaining of lower abdominal pain. On arrival to the ER he had a fever of 102.9. Laboratory analysis was remarkable for a white blood cell count of 2.3, hemoglobin 10.5, sodium 135, BUN 32, creatinine 2.21 (baseline creatinine 2.5), lactic acid 2.6. CT abdomen and pelvis demonstrated inflammatory changes adjacent to the distal colon possible colitis versus diverticulitis. Patient was also noted to have cholelithiasis. In the ER he was given 2 L of normal saline. He was started on Zosyn. Arrangements were made for admission. ne phrology and oncology were consulted. Seen and examined at bedside with present. He reports his abdominal pain is much improved. He still having some intermittent cramping. He is not feeling hungry. He denies any nausea or vomiting. He denies any shortness of breath. We again discussed indications for echocardiogram. General: nontoxic, no distress, appears at stated age Derm: warm, dry Head: atraumatic, normocephalic, symmetric Eyes: EOMI, no lid lag, anicteric sclera Mouth: no lip lesion, mucus membranes moist Cardiovascular: S1S2 reg, no murmur, positive posterior tibial pulse bilateral, Lungs: Decreased breath sounds bilateral, no rhonchi, no rales , no accessory muscle use Abdominal: soft, tender to palpation left lower quadrant, no guarding, no appreciable organomegaly Ext: no gross muscle atrophy, no edema, no contractures Neuro: CN II-XI grossly intact, no focal neuro deficits Psych: Alert, oriented, appropriate affect Assessment/plan: Syncope, suspect vasovagal - Tele-- unremarkable while in room - orthostatics not done and now has been on IVF fluids, consider once off IVF - Echo normal - fall precautions Colitis with severe sepsis Lactic acidosis - ? related to chemo - zosyn - IV fluids - advanc eto clear liquid diet Multiple Myeloma Anemia - suspect related to chemo - conitnue to monitor and repeat CBC in AM - currently on chemo - await oncology recs DUNCAN on CKD stage 4 - IV fluids - nephrology recs - avoid nephrotoxic agents History of pulmonary embolism -Continue Eliquis Neuropathy - gabapentin DVT prophylaxis: eliquis Discussed with: Patient and Anticipated discharge date: in 2-[address]: home A total of 25 minutes was spent on the care of this complex patient more than 50% of the time was spent in counseling and care coordination. Active Medications Generic Name Dose Route Start Last Admin Trade Name Freq PRN Reason Stop Dose Admin Acetaminophen 650 mg 07/07/22 14:05 07/08/22 08:30 Acetaminophen Tab 325 Mg Tab PO 650 mg Q6HR PRN Administration Mild Pain or Fever > 100.5 Acyclovir 400 mg 07/07/22 21:00 07/08/22 08:29 Acyclovir 200 Mg Cap PO 400 mg BID NNAMDI Administration Apixaban 5 mg 07/07/22 21:00 07/08/22 08:29 Apixaban 5 Mg Tab PO 5 mg BID NNAMDI Administration Protocol Darbepoetin Vj 60 mcg 07/08/22 18:00 07/08/22 18:48 Darbepoetin Vj 60 Mcg/0.3 Ml Syringe SQ 60 mcg Q7D NNAMDI Administration Dexamethasone 20 mg 07/08/22 09:00 07/08/22 08:29 Dexamethasone 4 Mg Tab PO 20 mg TU NNAMDI Administration Gabapentin 300 mg 07/07/22 21:00 07/07/22 23:04 Gabapentin 300 Mg Cap PO 300 mg HS NNAMDI Administration Piperacillin Sod/Tazobactam 100 mls @ 25 mls/hr 07/07/22 20:00 07/08/22 11:31 Sod 3.375 gm/ Sodium Chloride IVPB 25 mls/hr Q8H NNAMDI Administration Protocol Sodium Chloride 1,000 mls @ 130 mls/hr 07/07/22 14:15 07/08/22 16:39 Saline 0.9% IV 130 mls/hr .[id number] NNAMDI Administration Naloxone HCl 0.2 mg 07/07/22 14:05 Naloxone 0.4 Mg/Ml 1 Ml Vial IV Q2M PRN Opioid Reversal Ondansetron HCl 4 mg 07/07/22 14:05 Ondansetron 4 Mg/2 Ml Vial IVP Q8HR PRN Nausea And Vomiting Oxycodone HCl 5 mg 07/07/22 14:06 07/08/22 11:42 Oxycodone Hcl 5 Mg Tab PO 5 mg Q6H PRN Administration Pain Objective - Vital Signs Vital signs: Vital Signs Temp 98.2 F 07/08/22 14:20 Pulse 67 07/08/22 14:20 Resp 17 07/08/22 14:20 BP 105/72 07/08/22 14:20 Pulse Ox 99 07/08/22 14:20 FiO2 Intake & Output 07/07/22 07/08/22 07/08/22 18:59 06:59 18:59 Weight 90.718 kg - Labs CBC & Chem 7: 07/08/22 06:15 07/08/22 06:15 Labs: Abnormal Lab Results - Last 24 Hours (Table) 07/08/22 07/08/22 07/08/22 Range/Units 06:15 06:15 06:15 WBC 2.9 L (3.8-10.6) k/uL RBC 2.70 L (4.30-5.90) m/uL Hgb 8.8 L D (13.0-17.5) gm/dL Hct 28.3 L (39.0-53.0) % MCV 104.5 H (80.0-100.0) fL RDW 19.5 H (11.5-15.5) % Lymphocytes # (Manual) 0.09 L (1.0-4.8) k/uL Macrocytosis Marked A Sodium 136 L (137-145) mmol/L Chloride 111 H (98-107) mmol/L Carbon Dioxide 18 L (22-30) mmol/L BUN 26 H (9-20) mg/dL Creatinine 1.96 H (0.66-1.25) mg/dL Calcium 6.7 L (8.4-10.2) mg/dL Total Protein 4.1 L (6.3-8.2) g/dL Albumin 2.3 L (3.5-5.0) g/dL IgG 366.0 L (700.0-1600.0) mg/dL Microbiology - Last 24 Hours (Table) 07/07/22 09:54 Blood Culture - Preliminary Blood No Growth after 24 hours 07/07/22 09:54 Blood Culture - Preliminary Blood No Growth after 24 hours
--- NOTE | 2022-07-08 19:07 | P.CONS ---
History of Present Illness - Reason for Consult Consult date: 07/08/22 multiple myeloma Requesting physician: Rj Dickinson - Chief Complaint syncope, abdominal pain and fever - History of Present Illness Mr. Paul is a very pleasant 67-year-old male patient of Dr. Browning, well- known to our practice, on treatment for multiple myeloma. Patient's states that he was standing in the kitchen, looked like he was leaning over, and procee ded to continue over. Patient had a syncopal episode yesterday, no recollection of it. Was also accompanied by abdominal pain, then patient experienced fever, 102.9 MAXIMUM TEMPERATURE in the ER. Patient denied any diarrhea, bloody stools or mucus stools. He feels okay since admit, no near syncopal episodes but, patient has not been up and out of bed. CT of the abdomen and pelvis suspicious for diverticulosis/colitis, he is on antibiotics, receiving IV fluids. Chest x- ray, no acute process, bone lesions consistent with multiple myeloma. Patient has no other acute complaints. She has a very complicated past medical history. I will summarize his best as I can: Patient has been on multiple treatments for multiple myeloma, diagnosed in August 2015 when he presented with back pain. 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 he was placed on treatment, had autologous stem cell transplant 09/03. He started on maintenance Revlimid 01/02. He did well until January 2019, progressive back pain, MRI of the lumbar spine showed a soft tissue mass at L2. M protein was elevated, no other skeletal changes. Since that time he has been on several different regimens due to progression. He had a complicated course over the last several months due to lower extremity abscess, leading to prolonged hospitalizations and metabolic encephalopathy. He has recovered. Currently has a has received cycle 1 days 1,2, 8,9, 15 and 16 of kyprolis, was due to start cycle 2 yesterday. He continues on 20 mg weekly of dexamethasone, that is given on Wednesdays, he did receive today. Patient also is taking Pomalyst days 1 through 21 every 28 days, he did not bring the medication with him, have asked him to not to bring it and keep it on hold. He is also due for PAULINE Procrit 20,000 units today will be ordered. 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, gait dysfunction-uses walker, bilateral pedal/ankle edema, PE 08/2019, chronic low back pain, past vertebral fractures, minimal CAD, shingelles twice, past R heel wound, elevated lipids in the past, History of Any Multi-Drug Resistant Organisms: None Reported Past Surgical History: Heart Catheterization, Orthopedic Surgery Additional Past Surgical History / Comment(s): excision of uvular lesion(benign) 2009, colonoscopy, dave knee arthroscopy, rt rotator cuff sx, moles removed from back(benign), bone marrow aspiration/bx, stem cell transplant 2015, Past Anesthesia/Blood Transfusion Reactions: No Reported Reaction Past Psychological History: No Psychological Hx Reported Smoking Status: Never smoker Past Alcohol Use History: None Reported Past Drug Use History: None Reported - Past Family History Father Family Medical History: Renal Disease, Vascular Disorder Additional Family Medical History / Comment(s): aaa. Father is . Mother Family Medical History: No Reported History Additional Family Medical History / Comment(s): mom is healthy Medications and Allergies Home Medications Medication Instructions Recorded Confirmed Type Apixaban [Eliquis] 5 mg PO BID 10/03/19 07/07/22 History Aspirin 81 mg PO DAILY 05/16/22 07/07/22 History Acyclovir [Zovirax] 400 mg PO BID 07/07/22 07/07/22 History Gabapentin 300 mg PO HS 07/07/22 07/07/22 History dexAMETHasone 20 mg PO TU 07/07/22 07/07/22 History oxyCODONE HCL [OxyIR] 5 mg PO Q6H PRN 07/07/22 07/07/22 History Allergies Allergy/AdvReac Type Severity Reaction Status Date / Time sulfamethoxazole Allergy Rash/Hives Verified 07/07/22 11:00 [From Bactrim] trimethoprim [From Bactrim] Allergy Rash/Hives Verified 07/07/22 11:00 Physical Exam Vitals: Vital Signs Temp Pulse Resp BP Pulse Ox 07/08/22 14:20 98.2 F 67 17 105/72 99 07/08/22 11:35 99.1 F 65 16 106/70 98 07/08/22 08:33 98.7 F 75 18 136/73 99 07/08/22 06:24 117/73 07/08/22 05:00 76 18 129/78 98 07/07/22 23:07 81 18 119/68 98 07/07/22 21:55 99.1 F 07/07/22 16:24 63 18 112/72 98 - Constitutional General appearance: average body habitus, cooperative, no acute distress - EENT Eyes: anicteric sclerae, EOMI ENT: hearing grossly normal, normal oropharynx - Neck Neck: no lymphadenopathy - Respiratory Respiratory: bilateral: CTA - Cardiovascular Rhythm: regular Heart sounds: normal: S1, S2 Abnormal Heart Sounds: no systolic murmur, no diastolic murmur, no rub, no S3 Gallop, no S4 Gallop, no click, no other leg Peripheral Edema: bilateral: None - Gastrointestinal General gastrointestinal: no absent bowel sounds, no decreased bowel sounds, distended, no hepatomegaly, no hyperactive bowel sounds, normal bowel sounds, no organomegaly, no rigid, no scaphoid, soft, no splenomegaly, tenderness, no umbilical hernia, no ventral hernia - Integumentary Integumentary: pale - Neurologic Neurologic: CNII-XII intact (grossly) - Musculoskeletal Musculoskeletal: generalized weakness - Psychiatric Psychiatric: A&O x's 3, appropriate affect, intact judgment & insight Results CBC & Chem 7: 07/08/22 06:15 07/08/22 06:15 Labs: Abnormal Lab Results - Last 24 Hours (Table) 07/08/22 07/08/22 Range/Units 06:15 06:15 WBC 2.9 L (3.8-10.6) k/uL RBC 2.70 L (4.30-5.90) m/uL Hgb 8.8 L D (13.0-17.5) gm/dL Hct 28.3 L (39.0-53.0) % MCV 104.5 H (80.0-100.0) fL RDW 19.5 H (11.5-15.5) % Lymphocytes # (Manual) 0.09 L (1.0-4.8) k/uL Macrocytosis Marked A Sodium 136 L (137-145) mmol/L Chloride 111 H (98-107) mmol/L Carbon Dioxide 18 L (22-30) mmol/L BUN 26 H (9-20) mg/dL Creatinine 1.96 H (0.66-1.25) mg/dL Calcium 6.7 L (8.4-10.2) mg/dL Total Protein 4.1 L (6.3-8.2) g/dL Albumin 2.3 L (3.5-5.0) g/dL Microbiology - Last 24 Hours (Table) 07/07/22 09:54 Blood Culture - Preliminary Blood No Growth after 24 hours 07/07/22 09:54 Blood Culture - Preliminary Blood No Growth after [address] scan - abdomen: report reviewed CT scan - pelvis: report reviewed Assessment and Plan (1) Diverticulitis Current Visit: Yes Status: Acute Priority: High Code(s): K57.92 - DVTRCLI OF INTEST, PART UNSP, W/O PERF OR ABSCESS W/O BLEED SNOMED Code(s): 537808484 (2) Syncope Current Visit: Yes Status: Acute Priority: High Code(s): R55 - SYNCOPE AND COLLAPSE SNOMED Code(s): 497382411 (3) Multiple myeloma Current Visit: Yes Status: Chronic Priority: Medium Code(s): C90.00 - MULTIPLE MYELOMA NOT HAVING ACHIEVED REMISSION SNOMED Code(s): 551029002 Plan: Case discussed with Attending. Reviewed CT AP. Agree with treatment of diverticulitis/colitis. Hold pomalyst. Low blood counts secondary to disease and treatment. No intervention for WBC of 2.9. Hemoglobin of 8.8, will order pauline to be given today as it is due. attests: I have seen and examined patient, performed history and physical exam, developed impression and plan of care. Discussed with dictator. Agree with documentation, dictated as a scribe.
[2022-07-08] MEDS: GABAPENTIN 300 MG CAP PO SCH (22:37)
[2022-07-09] MEDS: SODIUM CHLORIDE 0.9% 1,000 ML IV SCH (02:41)
[2022-07-09] MEDS: PIPERACILLIN-TAZOBACTAM 3.375 GM in SODIUM CHLORIDE 0.9% 100 ML IVPB SCH ×3 (05:46→19:28)
[2022-07-09] MEDS: APIXABAN 5 MG TAB PO SCH ×2 (09:03→22:26)
[2022-07-09] MEDS: ACYCLOVIR 200 MG CAP PO SCH ×2 (09:03→22:26)
[2022-07-09 09:07] LABS: HCT 30.5 % (39.6-50.0); HGB 9.1 g/dL (13.0-17.0); MCH 30.8 pg (27.0-32.0); MCHC 29.8 g/dL (32.0-37.0); MCV 103.4 fL (80.0-97.0); Mean Platelet Volume 11.1 fL (9.5-12.2); NRBC Per 100 WBC 0.6 /100 WBCS (0.0-0.0); Platelet Count 194 X 10*3/uL (140-440); RBC 2.95 X 10*6/uL (4.40-5.60); RDW 18.6 % (11.5-14.5); WBC 3.13 X 10*3/uL (4.50-10.00)
[2022-07-09 09:17] LABS: African American GFR (CKD) 42.4 (60.0-200.0); Anion Gap 11.8 mmol/L (10.00-18.00); Blood Urea Nitrogen 22.2 mg/dL (9.0-27.0); Calcium 7.1 mg/dL (8.7-10.3); Carbon Dioxide 14.7 mmol/L (20.0-27.5); Magnesium 1.9 mg/dL (1.5-2.4); Non-African American GFR(CKD) 36.6 (60.0-200.0); Phosphorus 2.6 mg/dL (2.4-5.1); Potassium 4.3 mmol/L (3.5-5.5)
[2022-07-09] MEDS: DEXTROSE 5% IN WATER 1,000 ML with SODIUM BICARB (1 MEQ/ML) 150 ML IV SCH (13:39)
--- NOTE | 2022-07-09 17:07 | P.PN ---
Subjective This is seen and examined at bedside. Patient states that his nausea vomiting and diarrhea has currently resolved. Patient would like to eat. Patient denies chest pain shortness of breath fever or chills. She is currently a liquid diet. Objective - Vital Signs Vital signs: Vital Signs Temp 97.8 F 07/09/22 13:00 Pulse 70 07/09/22 13:00 Resp 18 07/09/22 13:00 BP 119/69 07/09/22 13:00 Pulse Ox 100 07/09/22 13:00 FiO2 Intake & Output 07/08/22 07/09/22 07/09/22 18:59 06:59 18:59 Intake Total 237 296 Output Total 400 Balance -163 296 Weight 80 kg Intake: Oral 237 296 Output: Urine 400 Other: Voiding Method Urinal Urinal # Voids 3 2 - Exam General: [non toxic], [no distress], [appears at stated age] Derm: [warm], [dry] Head: [atraumatic], [normocephalic], [symmetric] Eyes: [EOMI], [no lid lag], [anicteric sclera] Mouth: [no lip lesion], [mucus membranes moist] Cardiovascular: [S1S2 reg], [no murmur], [positive posterior tibial pulse bilateral], Lungs: [CTA bilateral], [no rhonchi, no rales] , [no accessory muscle use] Abdominal: [soft], [ nontender to palpation], [no guarding], [no appreciable organomegaly] Ext: [no gross muscle atrophy], [no edema], [no contractures] Neuro: [ CN II-XI grossly intact], [no focal neuro deficits] Psych: [Alert], [oriented], [appropriate affect] - Labs CBC & Chem 7: 07/09/22 05:13 07/09/22 05:13 Labs: Abnormal Lab Results - Last 24 Hours (Table) 07/09/22 07/09/22 Range/Units 05:13 05:13 WBC 3.13 L (4.50-10.00) X 10*3/uL RBC 2.95 L (4.40-5.60) X 10*6/uL Hgb 9.1 L (13.0-17.0) g/dL Hct 30.5 L (39.6-50.0) % MCV 103.4 H (80.0-97.0) fL MCHC 29.8 L (32.0-37.0) g/dL RDW 18.6 H (11.5-14.5) % Absolute Nucleated RBC 0.02 H (0.00-0.00) X 10*3/uL NRBC/100 WBC Diff 0.6 H (0.0-0.0) /100 WBCS Chloride 113 H (96-109) mmol/L Carbon Dioxide 14.7 L (20.0-27.5) mmol/L Creatinine 1.9 H (0.6-1.5) mg/dL Est GFR (CKD-EPI)AfAm 42.4 L (60.0-200.0) Est GFR (CKD-EPI)NonAf 36.6 L (60.0-200.0) Glucose 141 H (70-110) mg/dL Calcium 7.1 L (8.7-10.3) mg/dL Microbiology - Last 24 Hours (Table) 07/07/22 09:54 Blood Culture - Preliminary Blood No Growth after 48 hours 07/07/22 09:54 Blood Culture - Preliminary Blood No Growth after 48 hours Assessment and Plan Assessment: Syncope, suspect vasovagal - Tele-- unremarkable while in room - orthostatics not done and now has been on IVF fluids, consider once off IVF - Echo normal - fall precautions Colitis with severe sepsis Lactic acidosis - ? related to chemo - zosyn - IV fluids -Advance diet as tolerated Multiple Myeloma Anemia - suspect related to chemo - conitnue to monitor and repeat CBC in AM - currently on chemo - await oncology recs DUNCAN on CKD stage 4 - IV fluids - nephrology recs - avoid nephrotoxic agents History of pulmonary embolism -Continue Eliquis Neuropathy - gabapentin DVT prophylaxis: eliquis Discussed with: Patient and Anticipated discharge date: in 1-2 days if tolerating diet Anticipated discharge place: home A total of 25 minutes was spent on the care of this complex patient more than 50% of the time was spent in counseling and care coordination. Time with Patient: Greater than 30
--- NOTE | 2022-07-09 17:10 | P.PN ---
Subjective Progress Note Date: 07/09/22 Principal diagnosis: MM, colitis/diverticulitis In follow-up today patient continues to feel well, his diet is being advanced, he denies any current abdominal cramping, unusual consistency stools, mucus, blood. Objective - Vital Signs Vital signs: Vital Signs Temp 97.8 F 07/09/22 13:00 Pulse 70 07/09/22 13:00 Resp 18 07/09/22 13:00 BP 119/69 07/09/22 13:00 Pulse Ox 100 07/09/22 13:00 FiO2 Intake & Output 07/08/22 07/09/22 07/09/22 18:59 06:59 18:59 Intake Total 237 296 Output Total 400 Balance -163 296 Weight 80 kg Intake: Oral 237 296 Output: Urine 400 Other: Voiding Method Urinal Urinal # Voids 3 2 - Constitutional General appearance: Present: average body habitus, cooperative, no acute distress - EENT Eyes: Present: anicteric sclerae, EOMI ENT: Present: hearing grossly normal - Respiratory Details: respirations even and unlabored at rest - Gastrointestinal Gastrointestinal Comment(s): only mild tenderness elicited in the left upper quadrant with deep palpation, otherwise patient tolerated exam well General gastrointestinal: Present: normal bowel sounds, soft - Integumentary Integumentary: Present: normal turgor, pale - Neurologic Neurologic: Present: CNII-XII intact - Musculoskeletal Musculoskeletal: Present: generalized weakness - Psychiatric Psychiatric: Present: A&O x's 3, appropriate affect, intact judgment & insight - Labs CBC & Chem 7: 07/09/22 05:13 07/09/22 05:13 Labs: Abnormal Lab Results - Last 24 Hours (Table) 07/09/22 07/09/22 Range/Units 05:13 05:13 WBC 3.13 L (4.50-10.00) X 10*3/uL RBC 2.95 L (4.40-5.60) X 10*6/uL Hgb 9.1 L (13.0-17.0) g/dL Hct 30.5 L (39.6-50.0) % MCV 103.4 H (80.0-97.0) fL MCHC 29.8 L (32.0-37.0) g/dL RDW 18.6 H (11.5-14.5) % Absolute Nucleated RBC 0.02 H (0.00-0.00) X 10*3/uL NRBC/100 WBC Diff 0.6 H (0.0-0.0) /100 WBCS Chloride 113 H (96-109) mmol/L Carbon Dioxide 14.7 L (20.0-27.5) mmol/L Creatinine 1.9 H (0.6-1.5) mg/dL Est GFR (CKD-EPI)AfAm 42.4 L (60.0-200.0) Est GFR (CKD-EPI)NonAf 36.6 L (60.0-200.0) Glucose 141 H (70-110) mg/dL Calcium 7.1 L (8.7-10.3) mg/dL Microbiology - Last 24 Hours (Table) 07/07/22 09:54 Blood Culture - Preliminary Blood No Growth after 48 hours 07/07/22 09:54 Blood Culture - Preliminary Blood No Growth after 48 hours Assessment and Plan (1) Diverticulitis Current Visit: Yes Status: Acute Priority: High Code(s): K57.92 - DVTRCLI OF INTEST, PART UNSP, W/O PERF OR ABSCESS W/O BLEED SNOMED Code(s): 432988911 (2) Syncope Current Visit: Yes Status: Acute Priority: High Code(s): R55 - SYNCOPE AND COLLAPSE SNOMED Code(s): 324509676 (3) Multiple myeloma Current Visit: Yes Status: Chronic Priority: Medium Code(s): C90.00 - MULTIPLE MYELOMA NOT HAVING ACHIEVED REMISSION SNOMED Code(s): 713505337 Plan: Patient is doing very well with treatment of diverticulitis/colitis. Continue with plan as prescribed by Attending. Hold all treatment for myeloma for now. Patient does have a follow-up scheduled for next week, we will keep that appointment. He will be assessed at that time. That assessment will be discussed with Dr. Browning and he will decide if patient will proceed forward. Patient and verbalized understanding the plan and are in agreement with the same. Low blood counts secondary to disease and treatment. CBC stable, no acute interventions. IgG level just below 400. Patient is doing well with current treatment. We will plan for outpatient IVIG.
--- NOTE | 2022-07-09 17:42 | P.PN ---
Subjective Patient is seen for f/u for DUNCAN and CKD stage 4. Renal function has improved since April 2022, was 3.2 on 05/17/22 and cr now stable at 1.9 mg/dL for now. Maintained on IVF No significant complaints today. Objective - Vital Signs Vital signs: Vital Signs Temp 97.8 F 07/09/22 13:00 Pulse 70 07/09/22 13:00 Resp 18 07/09/22 13:00 BP 119/69 07/09/22 13:00 Pulse Ox 100 07/09/22 13:00 FiO2 Intake & Output 07/08/22 07/09/22 07/09/22 18:59 06:59 18:59 Intake Total 237 296 Output Total 400 Balance -163 296 Weight 80 kg Intake: Oral 237 296 Output: Urine 400 Other: Voiding Method Urinal Urinal # Voids 3 2 - Exam Awake, comfortable, no acute distress. Alert and oriented x3 Lungs are clear and decreased breathsounds at bases CVS S1 and S2 Abdomen is soft, non tender Extremities show edema bilateral1+ L > R - Labs CBC & Chem 7: 07/09/22 05:13 07/09/22 05:13 Labs: Abnormal Lab Results - Last 24 Hours (Table) 07/09/22 07/09/22 Range/Units 05:13 05:13 WBC 3.13 L (4.50-10.00) X 10*3/uL RBC 2.95 L (4.40-5.60) X 10*6/uL Hgb 9.1 L (13.0-17.0) g/dL Hct 30.5 L (39.6-50.0) % MCV 103.4 H (80.0-97.0) fL MCHC 29.8 L (32.0-37.0) g/dL RDW 18.6 H (11.5-14.5) % Absolute Nucleated RBC 0.02 H (0.00-0.00) X 10*3/uL NRBC/100 WBC Diff 0.6 H (0.0-0.0) /100 WBCS Chloride 113 H (96-109) mmol/L Carbon Dioxide 14.7 L (20.0-27.5) mmol/L Creatinine 1.9 H (0.6-1.5) mg/dL Est GFR (CKD-EPI)AfAm 42.4 L (60.0-200.0) Est GFR (CKD-EPI)NonAf 36.6 L (60.0-200.0) Glucose 141 H (70-110) mg/dL Calcium 7.1 L (8.7-10.3) mg/dL Microbiology - Last 24 Hours (Table) 07/07/22 09:54 Blood Culture - Preliminary Blood No Growth after 48 hours 07/07/22 09:54 Blood Culture - Preliminary Blood No Growth after 48 hours Assessment and Plan Assessment: 1. Acute kidney injury mostly prerenal currently maintained on IV fluids. UA is completely benign. Improved and cr is stable now 2. Chronic kidney disease NKF stage IV with serum creatinine around 2.8-2.5 mg/dL in May 2022. Patient has had multiple episodes of acute kidney injury mostly in April and May associated with prolonged hospitalization. Creatinine had peaked to 3.5 mg/dL at that time. 3. Syncope associated with hypotension 4. Sepsis etiology likely underlying diverticulitis. Currently maintained on IV antibiotics 5. History of multiple myeloma maintained on chemotherapy 6. History of PE maintained on eliquis 7. Metabolic acidosis associated with DUNCAN and lactic acidosis. Plan: Continue with IV fluids Repeat labs in a.m. Avoid nephrotoxic agents Change IVF to IV bicarb
[2022-07-09] MEDS: GABAPENTIN 300 MG CAP PO SCH (22:26)
[2022-07-10] MEDS: DEXTROSE 5% IN WATER 1,000 ML with SODIUM BICARB (1 MEQ/ML) 150 ML IV SCH (03:35)
[2022-07-10] MEDS: PIPERACILLIN-TAZOBACTAM 3.375 GM in SODIUM CHLORIDE 0.9% 100 ML IVPB SCH ×2 (03:36→11:33)
[2022-07-10] MEDS: APIXABAN 5 MG TAB PO SCH (08:45)
[2022-07-10] MEDS: ACYCLOVIR 200 MG CAP PO SCH (08:45)
[2022-07-10 12:38] VITALS: BP 158/86; PULSE 50; RESP 16; TEMP 98.5
--- NOTE | 2022-07-10 12:46 | P.PN ---
Subjective Patient is seen for f/u for DUNCAN and CKD stage 4. Renal function has improved since April 2022, was 3.2 on 05/17/22 and cr now stable at 1.9 mg/dL for now. Maintained on IVF No significant complaints today. Plans for possible discharge today Objective - Vital Signs Vital signs: Vital Signs Temp 98.5 F 07/10/22 11:31 Pulse 50 L 07/10/22 11:31 Resp 16 07/10/22 11:31 BP 158/86 07/10/22 11:31 Pulse Ox 100 07/10/22 11:31 FiO2 Intake & Output 07/09/22 07/10/22 07/10/22 18:59 06:59 18:59 Intake Total 592 1650 Balance 592 1650 Intake: Intake, IV Titration 1150 Amount Dextrose 5% in Water 1, 950 000 ml @ 80 mls/hr IV . [id number] NNAMDI with Sodium Bicarb (1 Meq/ml) 150 ml Rx#:[id number] Piperacillin-Tazobactam 3 200 .375 gm In Sodium Chloride 0.9% 100 ml @ 25 mls/hr IVPB Q8H NNAMDI Rx#: [id number] Oral 592 500 Other: Voiding Method Urinal Urinal # Voids 2 2 # Bowel Movements 1 - Exam Awake, comfortable, no acute distress. Alert and oriented x3 Lungs are clear and decreased breathsounds at bases CVS S1 and S2 Abdomen is soft, non tender Extremities show edema bilateral1+ L > R - Labs CBC & Chem 7: 07/09/22 05:13 07/09/22 05:13 Labs: Microbiology - Last 24 Hours (Table) 07/07/22 09:54 Blood Culture - Preliminary Blood No Growth after 72 hours 07/07/22 09:54 Blood Culture - Preliminary Blood No Growth after 72 hours Assessment and Plan Assessment: 1. Acute kidney injury mostly prerenal currently maintained on IV fluids. UA is completely benign. Improved and cr is stable now 2. Chronic kidney disease NKF stage IV with serum creatinine around 2.8-2.5 mg/dL in May 2022. Patient has had multiple episodes of acute kidney injury mostly in April and May associated with prolonged hospitalization. Creatinine had peaked to 3.5 mg/dL at that time. 3. Syncope associated with hypotension 4. Sepsis etiology likely underlying diverticulitis. Currently maintained on IV antibiotics 5. History of multiple myeloma maintained on chemotherapy 6. History of PE maintained on eliquis 7. Metabolic acidosis associated with DUNCAN and lactic acidosis. Maintained on IV bicarb. Plan: Check labs today to decide on the dose of oral sodium bicarb if discharged today. Close follow-up as outpatient.
[2022-07-10 14:00] LABS: African American GFR (CKD) 47 (>60 ml/min/1.73 sqM); Anion Gap 7 mmol/L; Blood Urea Nitrogen 22 mg/dL (9-20); Carbon Dioxide 22 mmol/L (22-30); Chloride 110 mmol/L (98-107); Glucose 110 mg/dL (74-99); Non-African American GFR(CKD) 41 (>60 ml/min/1.73 sqM); Potassium 3.9 mmol/L (3.5-5.1); Sodium 139 mmol/L (137-145)
--- NOTE | 2022-07-10 15:28 | P.DS ---
Providers Date of admission: 07/07/22 14:48 Attending physician: Carlos Coronel MD Consults: 07/07/22 14:05 Consult Physician Urgent Consulting Provider: Luis A Mcgowan Consult Reason/Comments: Multiple myeloma, established patient Do you want consulting provider notified?: Yes 07/07/22 14:46 Consult Physician Routine Consulting Provider: Sienna Aguilar Consult Reason/Comments: CKD Do you want consulting provider notified?: Yes Primary care physician: [facility] Course: Admission diagnosis: Abdominal pain Discharge diagnosis: Diverticulitis resolved Syncope Multiple myeloma CK D stage 4 History of PE on anticoagulation. 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 Upon presentation to the ER he was complaining of lower abdominal pain. On arrival to the ER he had a fever of 102.9. Laboratory analysis was remarkable for a white blood cell count of 2.3, hemoglobin 10.5, sodium 135, BUN 32, creatinine 2.21 (baseline creatinine 2.5), lactic acid 2.6. CT abdomen and pelvis demonstrated inflammatory changes adjacent to the distal colon possible colitis versus diverticulitis. Patient was also noted to have cholelithiasis. In the ER he was given 2 L of normal saline. He was started on Zosyn. Arrangements are made for admission. Patient seen and examined at bedside. He reports he was in his usual state of health until about 4 this morning. He started to have lower abdominal cramping and pain. He then got up to eat breakfast and felt slightly nauseated. His reports that he had a syncopal episode while sitting in his chair at the breakfast table that lasted less than 5 minutes. When he woke back up and there was no prolonged confusional state. He did have an episode of vomiting just after waking. He denies any prodromal symptoms such as chest pain, SOB, palpitations. He denies any history of diverticulitis or colitis. He is currently receiving chemotherapy for multiple myeloma. They report this as a newer therapy. He was having some rigors at home but was unsure if he had a fever. He was feeling in his normal state of health up until yesterday. Of note patient did have a prolonged hospital stay from 04/06/1937 due to left lower external be cellulitis with abscess, multiple vertebral fractures with intractable chronic pain, and acute kidney injury. He developed worsening episodes of confusion and apnea and therefore urology recommended transfer to tertiary care center. Per they were unsure of the cause of his altered mentation other than possibly related to his antibiotics and pain medications. Pertinent positives and negatives as discussed in HPI, a complete review of systems was performed and all other systems are negative. Physical exam: General: [non toxic], [no distress], [appears at stated age] Derm: [warm], [dry] Head: [atraumatic], [normocephalic], [symmetric] Eyes: [EOMI], [no lid lag], [anicteric sclera] Mouth: [no lip lesion], [mucus membranes moist] Cardiovascular: [S1S2 reg], [no murmur], [positive posterior tibial pulse bilateral], Lungs: [CTA bilateral], [no rhonchi, no rales] , [no accessory muscle use] Abdominal: [soft], [ nontender to palpation], [no guarding], [no appreciable organomegaly] Ext: [no gross muscle atrophy], [no edema], [no contractures] Neuro: [ CN II-XI grossly intact], [no focal neuro deficits] Psych: [Alert], [oriented], [appropriate affect] Clinical Course: Syncope, suspect vasovagal - Tele-- unremarkable while in room - Echo normal - fall precautions Colitis with severe sepsis Lactic acidosis - ? related to chemo - zosyn IV change to oral Levaquin and Flagyl on discharge -Advanced diet as tolerated -Diarrhea resolved Multiple Myeloma Anemia - suspect related to chemo - currently on chemo - Follow-up with oncology DUNCAN on CKD stage 4 improved - IV fluids discontinued - avoid nephrotoxic agents - Follow up with nephrology as an outpatient History of pulmonary embolism -Continue Eliquis Neuropathy - gabapentin Activity: As tolerated Diet: renal Disposition: Home with home care Condition: Fair Follow-up with PCP in 3-7 days Follow-up with nephrology in 1-2 weeks Follow-up with oncology in 1-2 weeks Plan - Discharge Summary New Discharge Prescriptions: New metroNIDAZOLE [Flagyl] 500 mg PO TID #21 tab Levofloxacin [Levaquin] 500 mg PO Q24H 5 Days #5 tab Continue Apixaban [Eliquis] 5 mg PO BID Aspirin 81 mg PO DAILY oxyCODONE HCL [OxyIR] 5 mg PO Q6H PRN PRN Reason: Pain Gabapentin 300 mg PO HS Acyclovir [Zovirax] 400 mg PO BID dexAMETHasone 20 mg PO TU Discharge Medication List Apixaban [Eliquis] 5 mg PO BID 10/03/19 [History] Aspirin 81 mg PO DAILY 05/16/22 [History] Acyclovir [Zovirax] 400 mg PO BID 07/07/22 [History] Gabapentin 300 mg PO HS 07/07/22 [History] dexAMETHasone 20 mg PO TU 07/07/22 [History] oxyCODONE HCL [OxyIR] 5 mg PO Q6H PRN 07/07/22 [History] Levofloxacin [Levaquin] 500 mg PO Q24H 5 Days #5 tab 07/10/22 [Rx] metroNIDAZOLE [Flagyl] 500 mg PO TID #21 tab 07/10/22 [Rx] Follow up Appointment(s)/Referral(s): Elkin Pierson MD [Primary Care Provider] - 1-2 days Shawn Browning MD [STAFF PHYSICIAN] - 07/14/22 10:30 am Sienna Aguilar MD [STAFF PHYSICIAN] - 1 Week Patient Instructions/Handouts: Diverticulitis (ED), Diverticulitis Diet (ED) Discharge Disposition: HOME WITH HOME HEALTH SERVICES
--- NOTE | 2022-07-10 15:30 | P.PN ---
Subjective Progress Note Date: 07/10/22 Principal diagnosis: MM, colitis/diverticulitis In follow-up today patient reports that he has tolerated diet changes so far, he has regular diet sched for lunch today. Abd pain is resolved, no cramping, fever or abnormal stool colors or consistency. Objective - Vital Signs Vital signs: Vital Signs Temp 97.5 F L 07/10/22 04:29 Pulse 46 L 07/10/22 04:29 Resp 14 07/10/22 04:29 BP 144/68 07/10/22 04:29 Pulse Ox 98 07/10/22 04:29 FiO2 Intake & Output 07/09/22 07/10/22 07/10/22 18:59 06:59 18:59 Intake Total 592 1650 Balance 592 1650 Intake: Intake, IV Titration 1150 Amount Dextrose 5% in Water 1, 950 000 ml @ 80 mls/hr IV . [id number] NNAMDI with Sodium Bicarb (1 Meq/ml) 150 ml Rx#:[id number] Piperacillin-Tazobactam 3 200 .375 gm In Sodium Chloride 0.9% 100 ml @ 25 mls/hr IVPB Q8H NNAMDI Rx#: [id number] Oral 592 500 Other: Voiding Method Urinal Urinal # Voids 2 2 # Bowel Movements 1 - Constitutional General appearance: Present: average body habitus, cooperative, no acute distress - EENT Eyes: Present: anicteric sclerae, EOMI ENT: Present: hearing grossly normal - Respiratory Details: resp even and unlabored at rest - Gastrointestinal General gastrointestinal: Present: normal bowel sounds, soft. Absent: absent bowel sounds, decreased bowel sounds, distended, hepatomegaly, hyperactive bowel sounds, organomegaly, rigid, scaphoid, splenomegaly, tenderness, umbilical hernia, ventral hernia - Integumentary Integumentary: Present: pale - Neurologic Neurologic: Present: CNII-XII intact (grossly) - Musculoskeletal Musculoskeletal: Present: generalized weakness - Psychiatric Psychiatric: Present: A&O x's 3, appropriate affect, intact judgment & insight - Labs CBC & Chem 7: 07/09/22 05:13 07/10/22 13:17 Labs: Microbiology - Last 24 Hours (Table) 07/07/22 09:54 Blood Culture - Preliminary Blood No Growth after 48 hours 07/07/22 09:54 Blood Culture - Preliminary Blood No Growth after 48 hours Assessment and Plan (1) Diverticulitis Current Visit: Yes Status: Acute Priority: High Code(s): K57.92 - DVTRCLI OF INTEST, PART UNSP, W/O PERF OR ABSCESS W/O BLEED SNOMED Code(s): 575168250 (2) Syncope Current Visit: Yes Status: Acute Priority: High Code(s): R55 - SYNCOPE AND COLLAPSE SNOMED Code(s): 027532530 (3) Multiple myeloma Current Visit: Yes Status: Chronic Priority: Medium Code(s): C90.00 - MULTIPLE MYELOMA NOT HAVING ACHIEVED REMISSION SNOMED Code(s): 726085574 Plan: Patient is doing very well with treatment of diverticulitis/colitis, symptoms have resolved, he is increasing diet with no set backs so far. Reg diet sched for lunch. Myeloma treatment held this week. Want pt to keep treatment appt scheduled for next week. He will be assessed at that time. That assessment will be discussed with Dr. Browning and he will decide if patient will proceed with treatment that day. Patient and verbalized understanding the plan and are in agreement with the same. Low blood counts secondary to disease and treatment. CBC stable, no acute interventions. IgG level just below 400. Patient is doing well with current treatment. We will plan for outpatient IVIG. Pt ok from Hem/Onc to be discharged once cleared by IM and Consulting MDs.
[2022-07-10] MEDS ORDERED: LEVOFLOXACIN 500 MG TAB PO SCH (16:00)
[2022-07-10] MEDS ORDERED: metroNIDAZOLE 500 MG TAB PO SCH (16:00)
== END 2022-07-10 17:00 | disposition home or self-care (01) | DRG 872 ==
LOC: EC 09:14 → 5NMEDONC 14:07 → OBSVTOIN 14:48 → 5NMEDONC 19:54
PROVIDERS: ADMIT Family Medicine; ATTEND Family Medicine
DX: A41.9 Sepsis, unspecified organism (principal); Z94.84 Stem cells transplant status; N17.9 Acute kidney failure, unspecified; E87.2 Acidosis; C90.00 Multiple myeloma not having achieved remission; N18.4 Chronic kidney disease, stage 4 (severe); K57.32 Diverticulitis of large intestine without perforation or abscess without bleeding; R65.20 Severe sepsis without septic shock; G62.0 Drug-induced polyneuropathy; I95.9 Hypotension, unspecified; Z20.822 Contact with and (suspected) exposure to COVID-19; D64.81 Anemia due to antineoplastic chemotherapy; K52.9 Noninfective gastroenteritis and colitis, unspecified; K80.20 Calculus of gallbladder without cholecystitis without obstruction; I25.10 Atherosclerotic heart disease of native coronary artery without angina pectoris; T45.1X5A Adverse effect of antineoplastic and immunosuppressive drugs, initial encounter; E78.5 Hyperlipidemia, unspecified; G89.29 Other chronic pain; M54.50 Low back pain, unspecified; R26.9 Unspecified abnormalities of gait and mobility; Z79.01 Long term (current) use of anticoagulants; Z79.82 Long term (current) use of aspirin; Z79.899 Other long term (current) drug therapy; Z86.711 Personal history of pulmonary embolism; Z86.19 Personal history of other infectious and parasitic diseases; Z88.1 Allergy status to other antibiotic agents; Z88.2 Allergy status to sulfonamides
CPT/HCPCS: 36415; 71046; 74176; 80048; 80053; 81003; 82784; 83605; 83735; 84100; 84484; 85025; 85027; 85610; 85730; 87040; 87635; 93005; 93306; 96361; 96365; 96366; 96372; 99285

== ENCOUNTER 2022-07-14 19:56 | Inpatient (IN) | payer MEDICARE, BC ==
--- NOTE | 2022-07-14 20:00 | ED ---
Weakness HPI - General Stated complaint: Weakness, Nausea Time Seen by Provider: 07/14/22 19:59 Source: patient, RN notes reviewed - History of Present Illness Initial comments: This is a pleasant 67-year-old male with a history of multiple trauma undergoing current chemotherapy. Patient also has a history of coronary artery disease and previous pulmonary embolus. Patient admitted last week for diverticulitis. Patient was treated with IV antibiotics and released on Levaquin and metronidazole. Patient states she is still taking the antibiotics. States she had chemotherapy today and then went to eat dinner. Patient took his antibiotics and started having nausea. Patient vomited once. This was watery vomitus with no blood. Patient has had dry heaves since then. Patient really denying any significant pain. Patient also has had several episodes of watery diarrhea since starting the antibiotics last week. Patient noted to have a fever of 100.[address] here today[address] Patient sees Dr. Browning for oncology. , Patient states he feels dehydrated with some lightheadedness, No headache, no fever or chills, no changes in vision or hearing, no sore throat or difficulty with speech, no neck pain, no chest pain or shortness of breath, no abdominal pain,, no changes in urination or bowel movements, no numbness or tingling, no extremity pain, no skin rashes or lesions. Past medical, surgical, social, and family history reviewed. - Related Data Home Medications Medication Instructions Recorded Confirmed Apixaban [Eliquis] 5 mg PO BID 10/03/19 07/14/22 Aspirin 81 mg PO DAILY 05/16/22 07/14/22 Acyclovir [Zovirax] 400 mg PO BID 07/07/22 07/14/22 Gabapentin 300 mg PO HS 07/07/22 07/14/22 dexAMETHasone 20 mg PO TU 07/07/22 07/14/22 oxyCODONE HCL [OxyIR] 5 mg PO Q6H PRN 07/07/22 07/14/22 Previous Rx's Medication Instructions Recorded Levofloxacin [Levaquin] 500 mg PO Q24H 5 Days #5 tab 07/10/22 metroNIDAZOLE [Flagyl] 500 mg PO TID #21 tab 07/10/22 Allergies Allergy/AdvReac Type Severity Reaction Status Date / Time sulfamethoxazole Allergy Rash/Hives Verified 07/14/22 22:42 [From Bactrim] trimethoprim [From Bactrim] Allergy Rash/Hives Verified 07/14/22 22:42 Review of Systems ROS Statement: Those systems with pertinent positive or pertinent negative responses have been documented in the HPI. ROS Other: All systems not noted in ROS Statement are negative. 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, gait dysfunction-uses walker, bilateral pedal/ankle edema, PE 08/2019, chronic low back pain, past vertebral fractures, minimal CAD, shingelles twice, past R heel wound, elevated lipids in the past, History of Any Multi-Drug Resistant Organisms: None Reported Past Surgical History: Heart Catheterization, Orthopedic Surgery Additional Past Surgical History / Comment(s): excision of uvular lesion(benign) 2009, colonoscopy, dave knee arthroscopy, rt rotator cuff sx, moles removed from back(benign), bone marrow aspiration/bx, stem cell transplant 2015, Past Anesthesia/Blood Transfusion Reactions: No Reported Reaction Past Psychological History: No Psychological Hx Reported Additional Psychological History / Comment(s): lives at home with his Blossom and 1 adult son. 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 He has a rollator walker. Smoking Status: Former smoker Past Alcohol Use History: None Reported Additional Past Alcohol Use History / Comment(s): started smoking age 17 and quit age 27, smoked 1ppd Past Drug Use History: Marijuana Additional Drug Use History / Comment(s): Pt states that he occasionally smokes marijuana to help with pain - Past Family History Father Family Medical History: Renal Disease, Vascular Disorder Additional Family Medical History / Comment(s): aaa. Father is . Mother Family Medical History: No Reported History Additional Family Medical History / Comment(s): mom is healthy General Exam - General Exam Comments Initial Comments: Patient appears very mildly ill but not toxic. Capillary refill is less than 3 seconds. There is no mottling. Cranial nerves II through XII grossly intact. Patient is alert and oriented 4. General appearance: in distress Head exam: Present: atraumatic, normocephalic, normal inspection Eye exam: Present: normal appearance, PERRL, EOMI. Absent: scleral icterus, conjunctival injection, periorbital swelling ENT exam: Present: normal exam, mucous membranes dry (Mildly), mucous membranes moist, normal external ear exam Neck exam: Present: normal inspection, full ROM. Absent: tenderness, meningismus, lymphadenopathy Respiratory exam: Present: normal lung sounds bilaterally. Absent: respiratory distress, wheezes, rales, rhonchi, stridor, chest wall tenderness, accessory muscle use Cardiovascular Exam: Present: regular rate, normal rhythm, normal heart sounds. Absent: systolic murmur, diastolic murmur, rubs, gallop, clicks GI/Abdominal exam: Present: distended (Possible mild distention), hyperactive bowel sounds. Absent: tenderness, guarding, rebound, rigid, organomegaly, mass, pulsatile mass Extremities exam: Present: normal inspection, full ROM, normal capillary refill, pedal edema (2+ pitting edema bilaterally, no evidence of erythema. No evidence of infectious process. Pedal pulses intact). Absent: tenderness, joint swelling, calf tenderness Back exam: Present: normal inspection Neurological exam: Present: alert, oriented X3, CN II-XII intact Psychiatric exam: Present: normal affect, normal mood Skin exam: Present: warm, dry, intact, normal color. Absent: rash Course Vital Signs 07/14/22 07/14/22 07/14/22 20:05 20:24 22:29 Temperature 100.3 F H 100.3 F H 99.1 F Pulse Rate 102 H 102 H Respiratory 16 16 Rate Blood Pressure 140/92 O2 Sat by Pulse 99 98 Oximetry - Reevaluation(s) Reevaluation #1: 07/14/22 21:08 Patient reevaluated and is essentially unchanged.Patient's workup this was acute on chronic renal failure. Creatinine 3.06. Last creatinine 1.69. Lactic acid 4.2 and and 16. Sodium 135. Carbon dioxide 17. Note that the patient is not neutropenic. Reevaluation #2: 07/14/22 21:10 Patient really does not meet SIRS criteria. However patient had a temperature of 100.3 on arrival. Given this. Patient may actually have early sepsis as he was tachycardic and had a lactate of 4.3. We'll hydrate the patient. I'm going to order a dose of Zosyn at this time. We'll discuss the case with the patient's oncologist Reevaluation #3: 07/14/22 22:33 Computed tomography scan still showing changes consistent with diverticulitis of the proximal sigmoid colon with fat stranding and some fluid in the left paracolic gutter, fluid slightly increased compared to the old exam. Wall thickening and diverticula seen in the descending colon and proximal sigmoid colon. - Consultations Consultation #1: Case discussed in detail with Dr. Miranda who agreed with the Zosyn treatment EKG Findings - EKG Comments: EKG Findings:: EKG reveals sinus tachycardia with a rate of 102. Normal intervals. Normal axis. Possible left atrial enlargement, nonspecific T-wave abnormalities, baseline artifact, no definitive evidence of acute pathology. Normal QRS morphology otherwise. Medical Decision Making - Medical Decision Making Patient was recently admitted for diverticulitis. Date of discharge 07/10/2022. Patient was sent home on levofloxacin 500 mg daily for 5 days and metronidazole 500 mg 3 times a day for 7 days. Patient had a CT abdomen and pelvis at admission that showed inflammatory changes adjacent to the distal colon possible colitis or diverticulitis. Patient was also noted to have cholelithiasis. Patient undergoing current chemotherapy for multiple myeloma and current treatment for diverticulitis. Patient presents today with vomiting, fever, diarrhea. We'll likely plan for admission. Treatment failure for diverticulitis is possible. The sodium differential colitis also possible. Patient has no tenderness and no pulsatile mass. Does not appear to be consistent with cardiovascular disease. Patient does get chemotherapy on a weekly basis for multiple myeloma. Typhlitis is a possibility. Case was discussed in detail with the admitting provider, Sotero Fletcher patient admitted under [facility] hospitalist group. Consultation for nephrology, infectious disease, and oncology. Patient received Zosyn, 3.375 g IV piggyback here in the ER. Will hold Levaquin and metronidazole this point. C. diff toxin also ordered. Patient has not produced a stool sample as of yet and ER. Computed tomography scan is pending. The case was discussed in detail with ED attending physician. Presentation, findings, treatment plan discussed in detail. Major Account Manager Dr. Villarreal - Lab Data Result diagrams: 07/14/22 20:05 07/14/22 20:05 Lab Results 09/26/22 09/26/22 09/26/22 Range/Units 20:05 20:05 20:05 WBC 8.9 (3.8-10.6) k/uL RBC 3.56 L (4.30-5.90) m/uL Hgb 11.1 L (13.0-17.5) gm/dL Hct 36.4 L (39.0-53.0) % MCV 102.2 H (80.0-100.0) fL MCH 31.3 (25.0-35.0) pg MCHC 30.6 L (31.0-37.0) g/dL RDW 19.2 H (11.5-15.5) % Plt Count 403 D (150-450) k/uL MPV 8.7 Neutrophils % 89 % Lymphocytes % 4 % Monocytes % 4 % Eosinophils % 1 % Basophils % 0 % Neutrophils # 8.0 H (1.3-7.7) k/uL Lymphocytes # 0.3 L (1.0-4.8) k/uL Monocytes # 0.4 (0-1.0) k/uL Eosinophils # 0.1 (0-0.7) k/uL Basophils # 0.0 (0-0.2) k/uL Hypochromasia Marked Anisocytosis Slight Macrocytosis Moderate PT (9.0-12.0) sec INR (<1.2) Sodium 135 L (137-145) mmol/L Potassium 3.9 (3.5-5.1) mmol/L Chloride 102 (98-107) mmol/L Carbon Dioxide 17 L (22-30) mmol/L Anion Gap 16 mmol/L BUN 26 H (9-20) mg/dL Creatinine 3.06 H (0.66-1.25) mg/dL Est GFR (CKD-EPI)AfAm 23 (>60 ml/min/1.73 sqM) Est GFR (CKD-EPI)NonAf 20 (>60 ml/min/1.73 sqM) Glucose 124 H (74-99) mg/dL Lactic Ac Sepsis Rflx Plasma Lactic Acid Jeromy (0.7-2.0) mmol/L Calcium 8.9 (8.4-10.2) mg/dL Total Bilirubin 0.6 (0.2-1.3) mg/dL AST 24 (17-59) U/L ALT 12 (4-49) U/L Alkaline Phosphatase 64 (38-126) U/L Troponin I <0.012 (0.000-0.034) ng/mL Total Protein 5.1 L (6.3-8.2) g/dL Albumin 3.1 L (3.5-5.0) g/dL Lipase 146 (23-300) U/L Coronavirus (PCR) (Not Detectd) Influenza Type A RNA (Not Detectd) Influenza Type B (PCR) (Not Detectd) 07/14/22 07/14/22 07/14/22 Range/Units 20:05 20:05 20:15 WBC (3.8-10.6) k/uL RBC (4.30-5.90) m/uL Hgb (13.0-17.5) gm/dL Hct (39.0-53.0) % MCV (80.0-100.0) fL MCH (25.0-35.0) pg MCHC (31.0-37.0) g/dL RDW (11.5-15.5) % Plt Count (150-450) k/uL MPV Neutrophils % % Lymphocytes % % Monocytes % % Eosinophils % % Basophils % % Neutrophils # (1.3-7.7) k/uL Lymphocytes # (1.0-4.8) k/uL Monocytes # (0-1.0) k/uL Eosinophils # (0-0.7) k/uL Basophils # (0-0.2) k/uL Hypochromasia Anisocytosis Macrocytosis PT 11.8 (9.0-12.0) sec INR 1.1 (<1.2) Sodium (137-145) mmol/L Potassium (3.5-5.1) mmol/L Chloride (98-107) mmol/L Carbon Dioxide (22-30) mmol/L Anion Gap mmol/L BUN (9-20) mg/dL Creatinine (0.66-1.25) mg/dL Est GFR (CKD-EPI)AfAm (>60 ml/min/1.73 sqM) Est GFR (CKD-EPI)NonAf (>60 ml/min/1.73 sqM) Glucose (74-99) mg/dL Lactic Ac Sepsis Rflx Plasma Lactic Acid Jeromy 4.2 H* (0.7-2.0) mmol/L Calcium (8.4-10.2) mg/dL Total Bilirubin (0.2-1.3) mg/dL AST (17-59) U/L ALT (4-49) U/L Alkaline Phosphatase (38-126) U/L Troponin I (0.000-0.034) ng/mL Total Protein (6.3-8.2) g/dL Albumin (3.5-5.0) g/dL Lipase (23-300) U/L Coronavirus (PCR) Not Detected (Not Detectd) Influenza Type A RNA (Not Detectd) Influenza Type B (PCR) (Not Detectd) 07/14/22 07/14/22 Range/Units 20:24 20:50 WBC (3.8-10.6) k/uL RBC (4.30-5.90) m/uL Hgb (13.0-17.5) gm/dL Hct (39.0-53.0) % MCV (80.0-100.0) fL MCH (25.0-35.0) pg MCHC (31.0-37.0) g/dL RDW (11.5-15.5) % Plt Count (150-450) k/uL MPV Neutrophils % % Lymphocytes % % Monocytes % % Eosinophils % % Basophils % % Neutrophils # (1.3-7.7) k/uL Lymphocytes # (1.0-4.8) k/uL Monocytes # (0-1.0) k/uL Eosinophils # (0-0.7) k/uL Basophils # (0-0.2) k/uL Hypochromasia Anisocytosis Macrocytosis PT (9.0-12.0) sec INR (<1.2) Sodium (137-145) mmol/L Potassium (3.5-5.1) mmol/L Chloride (98-107) mmol/L Carbon Dioxide (22-30) mmol/L Anion Gap mmol/L BUN (9-20) mg/dL Creatinine (0.66-1.25) mg/dL Est GFR (CKD-EPI)AfAm (>60 ml/min/1.73 sqM) Est GFR (CKD-EPI)NonAf (>60 ml/min/1.73 sqM) Glucose (74-99) mg/dL Lactic Ac Sepsis Rflx Y Plasma Lactic Acid Jeromy (0.7-2.0) mmol/L Calcium (8.4-10.2) mg/dL Total Bilirubin (0.2-1.3) mg/dL AST (17-59) U/L ALT (4-49) U/L Alkaline Phosphatase (38-126) U/L Troponin I (0.000-0.034) ng/mL Total Protein (6.3-8.2) g/dL Albumin (3.5-5.0) g/dL Lipase (23-300) U/L Coronavirus (PCR) (Not Detectd) Influenza Type A RNA Not Detected (Not Detectd) Influenza Type B (PCR) Not Detected (Not Detectd) Disposition Clinical Impression: Nausea and vomiting, Acute diarrhea, Lactic acidosis, Dehydration, Acute kidney injury superimposed on CKD, Multiple myeloma, Diverticulitis of sigmoid colon Narrative: Current chemotherapeutic treatment for multiple myeloma Disposition: ADMITTED IP TO THIS HOSP Condition: Fair Time of Disposition: 21:12
[2022-07-14] MEDS ORDERED: SODIUM CHLORIDE 0.9% 1,000 ML IV STA (20:08)
[2022-07-14] MEDS ORDERED: ONDANSETRON 4 MG/2 ML VIAL IVP STA (20:08)
[2022-07-14 20:43] LABS: INR 1.1 (<1.2); Prothrombin Time 11.8 sec (9.0-12.0)
[2022-07-14 20:45] LABS: Albumin 3.1 g/dL (3.5-5.0); Calcium 8.9 mg/dL (8.4-10.2); Potassium 3.9 mmol/L (3.5-5.1); Total Bilirubin 0.6 mg/dL (0.2-1.3); Total Protein 5.1 g/dL (6.3-8.2)
[2022-07-14 21:04] LABS: Anisocytosis Slight; Basophils % (A) 0 %; Eosinophils # (A) 0.1 k/uL (0-0.7); Eosinophils % (A) 1 %; HCT 36.4 % (39.0-53.0); HGB 11.1 gm/dL (13.0-17.5); Hypochromasia Marked; Lymphocytes # (A) 0.3 k/uL (1.0-4.8); Lymphocytes % (A) 4 %; MCH 31.3 pg (25.0-35.0); MCHC 30.6 g/dL (31.0-37.0); MCV 102.2 fL (80.0-100.0); Macrocytosis Moderate; Mean Platelet Volume 8.7; Monocytes # (A) 0.4 k/uL (0-1.0); Monocytes % (A) 4 %; Neutrophils % (A) 89 %; RBC 3.56 m/uL (4.30-5.90); RDW 19.2 % (11.5-15.5); WBC 8.9 k/uL (3.8-10.6)
--- NOTE | 2022-07-14 21:04 | XR ---
EXAMINATION TYPE: XR chest 1V portable DATE OF EXAM: 07/14/2022 COMPARISON: 07/07/2022 HISTORY: Nausea and vomiting TECHNIQUE: FINDINGS: Heart is normal. Lungs are clear. Diaphragm is normal. Bony thorax is intact. There are patrizia st leads. IMPRESSION: Normal chest. No change.
[2022-07-14 21:05] LABS: Platelet Count 403 k/uL (150-450)
[2022-07-14] MEDS ORDERED: PIPERACILLIN-TAZOBACTAM 3.375 GM in SODIUM CHLORIDE 0.9% 100 ML IVPB STA (21:11)
[2022-07-14] MEDS ORDERED: ONDANSETRON 4 MG/2 ML VIAL IVP PRN (21:28)
[2022-07-14] MEDS ORDERED: NALOXONE 0.4 MG/ML 1 ML VIAL IV PRN (21:28)
[2022-07-14] MEDS ORDERED: ACETAMINOPHEN TAB 325 MG TAB PO PRN (21:28)
--- NOTE | 2022-07-14 22:05 | CT ---
EXAMINATION TYPE: CT abdomen pelvis wo con DATE OF EXAM: 07/14/2022 COMPARISON: 07/07/2022 HISTORY: Vomiting, diarrhea CT DLP: 836.1 mGycm Automated exposure control for dose reduction was used. Images obtained from the diaphragm to the floor the pelvis with no contrast. There is minimal subsegmental atelectasis left lung base. No pleural effusion. Heart size is normal. No pericardial effusion. Liver and spleen are intact. No pancreatic mass. There are small calcified gallstones. Stomach is int act. There is no adrenal mass. Kidneys have normal size. There is fat stranding around both kidneys. No hy dronephrosis. Ureters are not dilated. No retroperitoneal adenopathy. Bladder distends smoothly. No i nguinal hernia. No free fluid in the pelvis. There is fluid and stranding in the left paracolic gutter. There is some wall thickening and divertic jurgen of the descending colon and the proximal sigmoid colon. The lumbar vertebra have normal alignment. There is compression deformity of the thoracic and lumbar vertebra up to 70 %. There is variable osteopenia. There are multiple areas of lucency in the bony pe lvis. There is some osteolytic changes in the sacrum and the lumbar vertebra. There is a 3 cm lytic a eric in the right side of the sacrum. IMPRESSION: Changes consistent with diverticulitis of the proximal sigmoid colon with fat stranding and some flui d in the left paracolic gutter. Fluid slightly increased compared to the old exam. No drainable fluid collection. Osteolytic changes in the lumbar spine and bony pelvis suggestive of multiple myeloma.
[2022-07-14] MEDS: MORPHINE SULFATE 4 MG/ML SYRINGE IV PRN (23:27)
[2022-07-14] MEDS: SODIUM CHLORIDE 0.9% 1,000 ML IV SCH (23:27)
[2022-07-15 05:22] LABS: Albumin 2.3 g/dL (3.5-5.0); Calcium 7.7 mg/dL (8.4-10.2); Magnesium 1.5 mg/dL (1.6-2.3); Phosphorus 4.5 mg/dL (2.5-4.5); Potassium 4.5 mmol/L (3.5-5.1); Total Bilirubin 0.4 mg/dL (0.2-1.3); Total Protein 3.8 g/dL (6.3-8.2)
[2022-07-15] MEDS: MORPHINE SULFATE 4 MG/ML SYRINGE IV PRN (05:32)
[2022-07-15] MEDS: PIPERACILLIN-TAZOBACTAM 3.375 GM in SODIUM CHLORIDE 0.9% 100 ML IVPB SCH ×3 (05:32→22:05)
[2022-07-15 05:37] LABS: Anisocytosis Slight; Basophils % (A) 0 %; Eosinophils # (A) 0.1 k/uL (0-0.7); Eosinophils % (A) 1 %; HCT 28.5 % (39.0-53.0); Hypochromasia Marked; Lymphocytes # (A) 0.3 k/uL (1.0-4.8); Lymphocytes % (A) 4 %; MCH 30.9 pg (25.0-35.0); MCHC 30.3 g/dL (31.0-37.0); MCV 102.1 fL (80.0-100.0); Macrocytosis Moderate; Mean Platelet Volume 7.8; Monocytes # (A) 0.4 k/uL (0-1.0); Monocytes % (A) 6 %; Neutrophils # (A) 6.1 k/uL (1.3-7.7); Neutrophils % (A) 88 %; Platelet Count 298 k/uL (150-450); RBC 2.79 m/uL (4.30-5.90); WBC 6.9 k/uL (3.8-10.6)
[2022-07-15 05:45] LABS: HGB 8.6 gm/dL (13.0-17.5)
[2022-07-15 07:02] LABS: Appearance,Urine Clear (Clear); Bilirubin,Urine Negative (Negative); Blood,Urine Trace (Negative); Color,Urine Yellow; Glucose,Urine (UA) Negative (Negative); Hyaline Casts,Urine 1 /lpf (0-2); Ketones,Urine Negative (Negative); Leukocyte Esterase,Urine Trace (Negative); Mucus,Urine Rare /hpf; Nitrite,Urine Negative (Negative); Protein,Urine 2+ (Negative); RBC,Urine 3 /hpf (0-5); Specific Gravity,Urine 1.011 (1.001-1.035); Urobilinogen,Urine <2.0 mg/dL (<2.0); WBC,Urine 6 /hpf (0-5)
[2022-07-15] MEDS: SODIUM CHLORIDE 0.9% 1,000 ML IV SCH ×2 (09:07→15:52)
[2022-07-15] MEDS: APIXABAN 5 MG TAB PO SCH ×2 (09:08→22:03)
--- NOTE | 2022-07-15 10:32 | P.NPCON ---
History of Present Illness - Reason for Consult acute renal failure, chronic renal failure - History of Present Illness Reason for consultation: Acute kidney injury on chronic kidney disease History of present illness: Patient is a 67-year-old male seen in renal consultation for acute kidney injury on chronic kidney disease. Patient was seen and evaluated in the emergency room. Patient has chronic kidney disease stage IV secondary to multiple myeloma and is maintained on chemotherapy outpatient. Patient's baseline creatinine is near 2. Patient was admitted at this facility last week for diverticulitis and was subsequently discharged with oral antibiotics. Patient states he's developed diarrhea from the oral antibiotics which began yesterday after he had dinner. He was also complaining of dry heaving. Otherwise oral intake has been good. No chest pain or shortness of breath. Has been voiding. No hematuria or dysuria. Creatinine is 3.2 today. Blood pressure stable. He also complains of a fever and was 100.3F on admission. He is currently receiving IV fluids. Denies history of diabetes. Denies family history of renal disease. Vital signs are stable. General: Awake. No acute distress. HEENT: Head exam is unremarkable. LUNGS: Breath sounds decreased. HEART: Rate and Rhythm are regular. ABDOMEN: Soft, no distention. EXTREMITITES: Trace edema. 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, gait dysfunction-uses walker, bilateral pedal/ankle edema, PE 08/2019, chronic low back pain, past vertebral fractures, minimal CAD, shingelles twice, past R heel wound, elevated lipids in the past, History of Any Multi-Drug Resistant Organisms: None Reported Past Surgical History: Heart Catheterization, Orthopedic Surgery Additional Past Surgical History / Comment(s): excision of uvular lesion(benign) 2009, colonoscopy, dave knee arthroscopy, rt rotator cuff sx, moles removed from back(benign), bone marrow aspiration/bx, stem cell transplant 2016, Past Anesthesia/Blood Transfusion Reactions: No Reported Reaction Past Psychological History: No Psychological Hx Reported Additional Psychological History / Comment(s): lives at home with his Blossom and 1 adult son. 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 He has a rollator walker. Smoking Status: Former smoker Past Alcohol Use History: None Reported Additional Past Alcohol Use History / Comment(s): started smoking age 17 and quit age 27, smoked 1ppd Past Drug Use History: Marijuana Additional Drug Use History / Comment(s): Pt states that he occasionally smokes marijuana to help with pain - Past Family History Father Family Medical History: Renal Disease, Vascular Disorder Additional Family Medical History / Comment(s): aaa. Father is . Mother Family Medical History: No Reported History Additional Family Medical History / Comment(s): mom is healthy Medications and Allergies Home Medications Medication Instructions Recorded Confirmed Type Apixaban [Eliquis] 5 mg PO BID 10/03/19 07/14/22 History Aspirin 81 mg PO DAILY 05/16/22 07/14/22 History Acyclovir [Zovirax] 400 mg PO BID 07/07/22 07/14/22 History Gabapentin 300 mg PO HS 07/07/22 07/14/22 History dexAMETHasone 20 mg PO TU 07/07/22 07/14/22 History oxyCODONE HCL [OxyIR] 5 mg PO Q6H PRN 07/07/22 07/14/22 History Levofloxacin [Levaquin] 500 mg PO Q24H 5 Days #5 tab 07/10/22 07/14/22 Rx metroNIDAZOLE [Flagyl] 500 mg PO TID #21 tab 07/10/22 07/14/22 Rx Allergies Allergy/AdvReac Type Severity Reaction Status Date / Time sulfamethoxazole Allergy Rash/Hives Verified 07/14/22 22:42 [From Bactrim] trimethoprim [From Bactrim] Allergy Rash/Hives Verified 07/14/22 22:42 Physical Exam Vitals: Vital Signs Temp Pulse Resp BP Pulse Ox 07/15/22 09:00 98.3 F 72 18 113/68 99 07/15/22 06:42 98.7 F 74 16 112/70 98 07/15/22 05:36 76 14 104/58 97 07/14/22 22:29 99.1 F 07/14/22 20:24 100.3 F H 102 H 16 98 07/14/22 20:05 100.3 F H 102 H 16 140/92 99 Intake and Output 07/14/22 07/15/22 07/15/22 22:59 06:59 14:59 Other: Weight 89.811 kg Results - Lab Results Most recent lab results Calcium 7.7 mg/dL (8.4-10.2) L 07/15/22 04:45 Phosphorus 4.5 mg/dL (2.5-4.5) 07/15/22 04:45 Magnesium 1.5 mg/dL (1.6-2.3) L 07/15/22 04:45 07/15/22 04:45 07/15/22 04:45 Assessment and Plan Plan: Assessment: 1. Acute kidney injury mostly prerenal secondary to hypovolemia from diarrhea. Currently 3.2 today. 2. Chronic kidney disease stage IIIB with baseline creatinine near 2 secondary to multiple myeloma. 3. Hyponatremia secondary to acute kidney injury. 4. Metabolic acidosis secondary to acute kidney injury and GI losses. 5. Multiple myeloma. Maintain on chemotherapy outpatient. Follows with oncology. 6. Anemia of chronic kidney disease. Also component of chemotherapy and myeloma. Rule out iron deficiency. 7. Fever. Did have diarrhea prior to admission. Unclear source. Did have diverticulitis last week but has been on antibiotics. Infectious disease consulted. 8. Hypomagnesemia from poor intake and GI losses. Plan: Maintain IV fluids. Decrease rate to 75 mL an hour. Check iron studies. Continue to monitor renal function and urine output. Encourage oral intake. Avoid nephrotoxins. Replace magnesium. Follow-up cultures. C. diff also ordered. Thank you for the consultation. I will continue to follow the patient with you during his hospital stay.
[2022-07-15] MEDS: MAGNESIUM SULFATE-D5W PMX 1 GM in DEXTROSE/WATER 1 100ML.BAG IVPB SCH ×2 (13:04→13:46)
[2022-07-15 19:44] LABS: % Iron Saturation 5.35 (15.00-50.00)
--- NOTE | 2022-07-15 21:35 | P.CONS ---
History of Present Illness - Reason for Consult Consult date: 07/15/22 MM Requesting physician: Luke Larson - Chief Complaint Fever, on abx - History of Present Illness Mr. Paul is admitted today day after day 1 cycle 2 of kyprolis. He went out to eat after treatment, he took his abx that he was completing from last week for diverticulitis and he vomited. reports a fever of 101F at home, he cont to have dry heaves and could not keep anything down. He has CKD, with increase in BUN and Cr on admit. He denies any PATEL, difficulty swallowing, chest pain, SOB, cough, dysuria, bleeding, he does have lower extremity swelling. She has a very complicated past medical history. Multiple treatments for multiple myeloma, diagnosed in August 2015 when he presented with back pain. 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 he was placed on treatment, had autologous stem cell transplant 09/03. He started on maintenance Revlimid 01/02. He did well until January 2019, progressive back pain, MRI of the lumbar spine showed a soft tissue mass at L2. M protein was elevated, no other skeletal changes. Since that time he has been on several different regimens due to progression. He had a complicated course over the last several months due to lower extremity abscess, leading to prolonged hospitalizations and metabolic encephalopathy. He has recovered. Currently has a has received cycle 1 days 1,2, 8,9, 15 and 16 of kyprolis, he received day 1 of cycle 2 on Thursday. He continues on 20 mg weekly of dexamethasone, that is given on Wednesdays, will give tomorrow. He is also taking Pomalyst days 1 through 21 every 28 days, he would have started cycle 2 Thu, will hold. He is due for ZACHARIAH Procrit 20,000 units this week, I will check date. He was admitted last week for syncopy, reported that he was standing in the kitchen, looked like he was leaning over, and proceeded to continue over. Patient had no recollection of event. Was also accompanied by abdominal pain, then patient experienced fever, 102.9 MAXIMUM TEMPERATURE in the ER. Patient denied any diarrhea, bloody stools or mucus stools. He feels okay since admit, no near syncopal episodes but, patient has not been up and out of bed. CT of the abdomen and pelvis suspicious for diverticulosis/colitis, he received antibiotics, fluids, diet advanced as tolerated and he was discharged just late last week. 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, gait dysfunction-uses walker, bilateral pedal/ankle edema, PE 08/2019, chronic low back pain, past vertebral fractures, minimal CAD, shingelles twice, past R heel wound, elevated lipids in the past, History of Any Multi-Drug Resistant Organisms: None Reported Past Surgical History: Heart Catheterization, Orthopedic Surgery Additional Past Surgical History / Comment(s): excision of uvular lesion(benign) 2009, colonoscopy, dave knee arthroscopy, rt rotator cuff sx, moles removed from back(benign), bone marrow aspiration/bx, stem cell transplant 2015, Past Anesthesia/Blood Transfusion Reactions: No Reported Reaction Past Psychological History: No Psychological Hx Reported Additional Psychological History / Comment(s): lives at home with his Blossom and 1 adult son. 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 He has a rollator walker. Smoking Status: Former smoker Past Alcohol Use History: None Reported Additional Past Alcohol Use History / Comment(s): started smoking age 17 and quit age 27, smoked 1ppd Past Drug Use History: Marijuana Additional Drug Use History / Comment(s): Pt states that he occasionally smokes marijuana to help with pain - Past Family History Father Family Medical History: Renal Disease, Vascular Disorder Additional Family Medical History / Comment(s): aaa. Father is . Mother Family Medical History: No Reported History Additional Family Medical History / Comment(s): mom is healthy Medications and Allergies Home Medications Medication Instructions Recorded Confirmed Type Apixaban [Eliquis] 5 mg PO BID 10/03/19 07/14/22 History Aspirin 81 mg PO DAILY 05/16/22 07/14/22 History Acyclovir [Zovirax] 400 mg PO BID 07/07/22 07/14/22 History Gabapentin 300 mg PO HS 07/07/22 07/14/22 History dexAMETHasone 20 mg PO TU 07/07/22 07/14/22 History oxyCODONE HCL [OxyIR] 5 mg PO Q6H PRN 07/07/22 07/14/22 History Levofloxacin [Levaquin] 500 mg PO Q24H 5 Days #5 tab 07/10/22 07/14/22 Rx metroNIDAZOLE [Flagyl] 500 mg PO TID #21 tab 07/10/22 07/14/22 Rx Allergies Allergy/AdvReac Type Severity Reaction Status Date / Time sulfamethoxazole Allergy Rash/Hives Verified 07/14/22 22:42 [From Bactrim] trimethoprim [From Bactrim] Allergy Rash/Hives Verified 07/14/22 22:42 Physical Exam Vitals: Vital Signs Temp Pulse Pulse Resp BP BP Pulse Ox 07/15/22 14:11 98.2 F 71 17 131/78 99 07/15/22 12:42 98.6 F 74 17 137/84 99 07/15/22 12:02 98.5 F 96 20 113/68 99 07/15/22 09:00 98.3 F 72 18 113/68 99 07/15/22 06:42 98.7 F 74 16 112/70 98 07/15/22 05:36 76 14 104/58 97 07/14/22 22:29 99.1 F 07/14/22 20:24 100.3 F H 102 H 16 98 07/14/22 20:05 100.3 F H 102 H 16 140/92 99 Intake and Output 07/15/22 07/15/22 07/15/22 06:59 14:59 22:59 Intake Total 1180 Balance 1180 Intake: Intake, IV Titration 600 Amount Magnesium Sulfate-D5w Pmx 200 1 gm In Dextrose/Water 1 100ml.bag @ 100 mls/hr IVPB Q1H [facility] Rx#: [id number] Piperacillin-Tazobactam 3 100 .375 gm In Sodium Chloride 0.9% 100 ml @ 25 mls/hr IVPB Q8H [facility] Rx#: [id number] Sodium Chloride 0.9% 1, 300 000 ml @ 75 mls/hr IV . [id number] [facility] Rx#:[id number] Oral 580 Other: # Voids 2 # Bowel Movements 1 Weight 89.811 kg - Constitutional General appearance: average body habitus, cooperative, no acute distress - EENT Eyes: anicteric sclerae, EOMI ENT: hearing grossly normal, normal oropharynx - Neck Neck: no lymphadenopathy - Respiratory Respiratory: bilateral: CTA - Cardiovascular Rhythm: regular Heart sounds: normal: S1, S2 Abnormal Heart Sounds: no systolic murmur, no diastolic murmur, no rub, no S3 Gallop, no S4 Gallop, no click, no other leg Peripheral Edema: bilateral: 2+, Pitting - Gastrointestinal General gastrointestinal: no absent bowel sounds, no decreased bowel sounds, no distended, no hepatomegaly, no hyperactive bowel sounds, normal bowel sounds, no organomegaly, no rigid, no scaphoid, soft, no splenomegaly, no tenderness, no umbilical hernia, no ventral hernia - Integumentary Integumentary: pale - Neurologic Neurologic: CNII-XII intact - Musculoskeletal Musculoskeletal: generalized weakness, strength equal bilaterally - Psychiatric Psychiatric: A&O x's 3, appropriate affect, intact judgment & insight Results CBC & Chem 7: 07/15/22 04:45 07/15/22 04:45 Labs: Abnormal Lab Results - Last 24 Hours (Table) 07/14/22 07/14/22 07/14/22 Range/Units 20:05 20:05 20:15 RBC 3.56 L (4.30-5.90) m/uL Hgb 11.1 L (13.0-17.5) gm/dL Hct 36.4 L (39.0-53.0) % MCV 102.2 H (80.0-100.0) fL MCHC 30.6 L (31.0-37.0) g/dL RDW 19.2 H (11.5-15.5) % Neutrophils # 8.0 H (1.3-7.7) k/uL Lymphocytes # 0.3 L (1.0-4.8) k/uL Sodium 135 L (137-145) mmol/L Carbon Dioxide 17 L (22-30) mmol/L BUN 26 H (9-20) mg/dL Creatinine 3.06 H (0.66-1.25) mg/dL Glucose 124 H (74-99) mg/dL Plasma Lactic Acid Jeromy 4.2 H* (0.7-2.0) mmol/L Calcium (8.4-10.2) mg/dL Magnesium (1.6-2.3) mg/dL Total Protein 5.1 L (6.3-8.2) g/dL Albumin 3.1 L (3.5-5.0) g/dL Urine Protein (Negative) Urine Blood (Negative) Ur Leukocyte Esterase (Negative) Urine WBC (0-5) /hpf Urine Mucus (None) /hpf 07/15/22 07/15/22 07/15/22 Range/Units 04:45 04:45 06:42 RBC 2.79 L (4.30-5.90) m/uL Hgb 8.6 L D (13.0-17.5) gm/dL Hct 28.5 L (39.0-53.0) % MCV 102.1 H (80.0-100.0) fL MCHC 30.3 L (31.0-37.0) g/dL RDW 19.0 H (11.5-15.5) % Neutrophils # (1.3-7.7) k/uL Lymphocytes # 0.3 L (1.0-4.8) k/uL Sodium 133 L (137-145) mmol/L Carbon Dioxide 21 L (22-30) mmol/L BUN 28 H (9-20) mg/dL Creatinine 3.20 H (0.66-1.25) mg/dL Glucose 107 H (74-99) mg/dL Plasma Lactic Acid Jeromy (0.7-2.0) mmol/L Calcium 7.7 L (8.4-10.2) mg/dL Magnesium 1.5 L (1.6-2.3) mg/dL Total Protein 3.8 L (6.3-8.2) g/dL Albumin 2.3 L (3.5-5.0) g/dL Urine Protein 2+ H (Negative) Urine Blood Trace H (Negative) Ur Leukocyte Esterase Trace H (Negative) Urine WBC 6 H (0-5) /hpf Urine Mucus Rare H (None) /hpf Chest x-ray: report reviewed CT scan - abdomen: report reviewed CT scan - pelvis: report reviewed Assessment and Plan (1) Fever Current Visit: Yes Status: Acute Priority: High Code(s): R50.9 - FEVER, UNSPECIFIED SNOMED Code(s): 643792893 (2) Dehydration Current Visit: Yes Status: Acute Priority: High Code(s): E86.0 - D EHYDRATION SNOMED Code(s): 03454026 (3) Multiple myeloma Current Visit: Yes Status: Chronic Priority: Medium Code(s): C90.00 - MULTIPLE MYELOMA NOT HAVING ACHIEVED REMISSION SNOMED Code(s): 588036284 (4) Nausea vomiting and diarrhea Current Visit: No Status: Acute Code(s): R11.2 - NAUSEA WITH VOMITING, UNSPECIFIED; R19.7 - DIARRHEA, UNSPECIFIED SNOMED Code(s): 2578115 (5) Acute kidney injury superimposed on CKD Current Visit: Yes Status: Acute Code(s): N17.9 - ACUTE KIDNEY FAILURE, UNSPECIFIED; N18.9 - CHRONIC KIDNEY DISEASE, UNSPECIFIED SNOMED Code(s): 53596720 (6) Diverticulitis of sigmoid colon Current Visit: Yes Status: Acute Code(s): K57.32 - DVTRCLI OF LG INT W/O PERFORATION OR ABSCESS W/O BLEEDING SNOMED Code(s): 169360202 Plan: Vomiting. Pt is receiving supportive meds and hydration. Fever on abx. Elevated lactic acid. CTAP impression of proximal sigmoid diverticulitis. Did discuss case with ID who will see pt later today. Multiple myeloma treatment, on hold for right now. Macrocytic anemia, CKD. Pt is on ZACHARIAH. Will check due date and order accordingly. Acute kidney injury on CKD. Nephrology has seen pt.
[2022-07-15] MEDS: GABAPENTIN 300 MG CAP PO SCH (23:12)
--- NOTE | 2022-07-16 00:15 | P.HPIM ---
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 Patient received chemotherapy and after reaching home and took the antibiotics. Patient started having nausea and episodes of vomiting nonbilious and unable to keep down food. No blood in the vomit. Patient has been having dry heaves and no complaints of significant abdominal pain. Patient also had several episodes of watery diarrhea since starting the antibiotic last week. Presents ER for further evaluation. Patient was recently admitted to hospital for diverticulitis and is on antibiotics. Denied any complaints of headache or dizziness. No cough or sputum production. No numbness or tingling. Patient was febrile on admission with T-max 100.3 and pulse ox 99% on room air. Patient was tachycardic on admission. Chest x-ray showed normal chest. No change. CT of abdomen pelvis showed changes consistent with diverticulitis of the proximal sigmoid colon with fat stranding and some fluid in the left paracolic. Fluid slightly increased compared to last exam. No drainable fluid collection. Next and EKG showed sinus tachycardia Laboratory data show WBC 8.9 hemoglobin 11.1 and platelets 403 Surgical wound that her potassium 3.9 chloride 1-2 bicarb is 17 BUN 26 and creatinine 3.06 and lactic acid 4.2 on admission Larios virus PCR and influenza AB-. Review of Systems Constitutional: Does have fever. No chills . Positive for generalized weakness . weight loss. Abdomen: Patient does have nausea vomiting and diarrhea. While abdominal discomfort.. Cardiovascular: Patient denies any chest pain or short of breath no palpitations. Respiratory: patient denied any cough is from production. No shortness of breat h Neurologic: Patient denied any numbness or tingling headache. Musculoskeletal: Patient denies any complaints of joint swelling or deformity. Skin: Negative Psychiatric: Negative Endocrine: No heat or cold intolerance. No recent weight gain. Genitourinary: No dysuria or hematuria. All other 14 point ROS negative except the above 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, gait dysfunction-uses walker, bilateral pedal/ankle edema, PE 08/2019, chronic low back pain, past vertebral fractures, minimal CAD, shingelles twice, past R heel wound, elevated lipids in the past, History of Any Multi-Drug Resistant Organisms: None Reported Past Surgical History: Heart Catheterization, Orthopedic Surgery Additional Past Surgical History / Comment(s): excision of uvular lesion(benign) 2009, colonoscopy, dave knee arthroscopy, rt rotator cuff sx, moles removed from back(benign), bone marrow aspiration/bx, stem cell transplant 2015, Past Anesthesia/Blood Transfusion Reactions: No Reported Reaction Past Psychological History: No Psychological Hx Reported Additional Psychological History / Comment(s): lives at home with his Blossom and 1 adult son. 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 He has a rollator walker. Smoking Status: Former smoker Past Alcohol Use History: None Reported Additional Past Alcohol Use History / Comment(s): started smoking age 17 and quit age 27, smoked 1ppd Past Drug Use History: Marijuana Additional Drug Use History / Comment(s): Pt states that he occasionally smokes marijuana to help with pain - Past Family History Father Family Medical History: Renal Disease, Vascular Disorder Additional Family Medical History / Comment(s): aaa. Father is . Mother Family Medical History: No Reported History Additional Family Medical History / Comment(s): mom is healthy Medications and Allergies Home Medications Medication Instructions Recorded Confirmed Type Apixaban [Eliquis] 5 mg PO BID 10/03/19 07/14/22 History Aspirin 81 mg PO DAILY 05/16/22 07/14/22 History Acyclovir [Zovirax] 400 mg PO BID 07/07/22 07/14/22 History Gabapentin 300 mg PO HS 07/07/22 07/14/22 History dexAMETHasone 20 mg PO TU 07/07/22 07/14/22 History oxyCODONE HCL [OxyIR] 5 mg PO Q6H PRN 07/07/22 07/14/22 History Levofloxacin [Levaquin] 500 mg PO Q24H 5 Days #5 tab 07/10/22 07/14/22 Rx metroNIDAZOLE [Flagyl] 500 mg PO TID #21 tab 07/10/22 07/14/22 Rx Sodium Bicarbonate Tab 650 mg PO DAILY #14 tab 07/19/22 Rx Allergies Allergy/AdvReac Type Severity Reaction Status Date / Time sulfamethoxazole Allergy Rash/Hives Verified 07/14/22 22:42 [From Bactrim] trimethoprim [From Bactrim] Allergy Rash/Hives Verified 07/14/22 22:42 Physical Exam Vitals: Vital Signs Temp Pulse Resp BP Pulse Ox 07/15/22 09:00 98.3 F 72 18 113/68 99 07/15/22 06:42 98.7 F 74 16 112/70 98 07/15/22 05:36 76 14 104/58 97 07/14/22 22:29 99.1 F 07/14/22 20:24 100.3 F H 102 H 16 98 07/14/22 20:05 100.3 F H 102 H 16 140/92 99 Intake and Output 07/14/22 07/15/22 07/15/22 22:59 06:59 14:59 Other: Weight 89.811 kg PHYSICAL EXAMINATION: Patient is lying in the bed comfortably, no acute distress, awake alert and oriented.. HEENT: Normocephalic. Neck is supple. Pupils reactive. Nostrils clear. Oral cavity is moist. Neck reveals no JVD, carotid bruits, or thyromegaly. CHEST EXAMINATION: Trachea is central. Symmetrical expansion. Lung acevedo clear to auscultation and percussion. CARDIAC: Normal S1, S2 with no gallops. No murmurs ABDOMEN: Soft. Bowel sounds normal. No organomegaly. No abdominal bruits. Extremities: reveal no edema. No clubbing or cyanosis Neurologically awake, alert, oriented x3 with well-coordinated movements. No focal deficits noted Skin: No rash or skin lesions. Psychiatric: Coperative. Nonsuicidal Musculoskeletal: No joint swelling or deformity. Normal range of motion. Results CBC & Chem 7: 07/18/22 07:02 07/19/22 03:52 Labs: Abnormal Lab Results - Last 24 Hours (Table) 07/14/22 07/14/22 07/14/22 Range/Units 20:05 20:05 20:15 RBC 3.56 L (4.30-5.90) m/uL Hgb 11.1 L (13.0-17.5) gm/dL Hct 36.4 L (39.0-53.0) % MCV 102.2 H (80.0-100.0) fL MCHC 30.6 L (31.0-37.0) g/dL RDW 19.2 H (11.5-15.5) % Neutrophils # 8.0 H (1.3-7.7) k/uL Lymphocytes # 0.3 L (1.0-4.8) k/uL Sodium 135 L (137-145) mmol/L Carbon Dioxide 17 L (22-30) mmol/L BUN 26 H (9-20) mg/dL Creatinine 3.06 H (0.66-1.25) mg/dL Glucose 124 H (74-99) mg/dL Plasma Lactic Acid Jeromy 4.2 H* (0.7-2.0) mmol/L Calcium (8.4-10.2) mg/dL Magnesium (1.6-2.3) mg/dL Total Protein 5.1 L (6.3-8.2) g/dL Albumin 3.1 L (3.5-5.0) g/dL Urine Protein (Negative) Urine Blood (Negative) Ur Leukocyte Esterase (Negative) Urine WBC (0-5) /hpf Urine Mucus (None) /hpf 07/15/22 07/15/22 07/15/22 Range/Units 04:45 04:45 06:42 RBC 2.79 L (4.30-5.90) m/uL Hgb 8.6 L D (13.0-17.5) gm/dL Hct 28.5 L (39.0-53.0) % MCV 102.1 H (80.0-100.0) fL MCHC 30.3 L (31.0-37.0) g/dL RDW 19.0 H (11.5-15.5) % Neutrophils # (1.3-7.7) k/uL Lymphocytes # 0.3 L (1.0-4.8) k/uL Sodium 133 L (137-145) mmol/L Carbon Dioxide 21 L (22-30) mmol/L BUN 28 H (9-20) mg/dL Creatinine 3.20 H (0.66-1.25) mg/dL Glucose 107 H (74-99) mg/dL Plasma Lactic Acid Jeromy (0.7-2.0) mmol/L Calcium 7.7 L (8.4-10.2) mg/dL Magnesium 1.5 L (1.6-2.3) mg/dL Total Protein 3.8 L (6.3-8.2) g/dL Albumin 2.3 L (3.5-5.0) g/dL Urine Protein 2+ H (Negative) Urine Blood Trace H (Negative) Ur Leukocyte Esterase Trace H (Negative) Urine WBC 6 H (0-5) /hpf Urine Mucus Rare H (None) /hpf Thrombosis Risk Factor Assmnt - DVT/VTE Prophylaxis DVT/VTE Prophylaxis: Pharmacologic Prophylaxis ordered Assessment and Plan Assessment: Acute sigmoid diverticulitis slightly worse from last admission. status post EGD Intractable nausea vomiting and diarrhea and abdominal discomfort Acute kidney injury likely prerenal secondary to nausea vomiting and diarrhea. Creatinine 3.2 on admission. Baseline creatinine was 1.6 Hypovolemic hyponatremia Metabolic acidosis secondary to acute kidney injury Multiple myeloma currently undergoing chemotherapy Hypomagnesemia GI and DVT prophylaxis Plan: Patient be continued on IV hydration with normal saline. Continue with IV antibiotics Zosyn and stool for C. diff toxin was sent due to diarrhea. Continue with symptomatic management for nausea and vomiting. Follow-up renal function and continue with home medications. Avoid nephrotoxins. Oncology nephrology and ID is on board. Time with Patient: Greater than 30
[2022-07-16] MEDS: PIPERACILLIN-TAZOBACTAM 3.375 GM in SODIUM CHLORIDE 0.9% 100 ML IVPB SCH ×3 (05:00→21:50)
[2022-07-16] MEDS: SODIUM CHLORIDE 0.9% 1,000 ML IV SCH (05:04)
[2022-07-16 05:48] LABS: African American GFR (CKD) 23 (>60 ml/min/1.73 sqM); Anion Gap 11 mmol/L; Blood Urea Nitrogen 23 mg/dL (9-20); Calcium 7.4 mg/dL (8.4-10.2); Carbon Dioxide 16 mmol/L (22-30); Chloride 107 mmol/L (98-107); Glucose 84 mg/dL (74-99); Non-African American GFR(CKD) 20 (>60 ml/min/1.73 sqM); Sodium 134 mmol/L (137-145)
--- NOTE | 2022-07-16 07:04 | P.CONS ---
History of Present Illness - Reason for Consult Consult date: 07/15/22 Diverticulitis Requesting physician: Luke Larson - Chief Complaint Fever 1 day - History of Present Illness Patient is a 67-year-old male with a past medical history significant for multiple myeloma initial diagnosis of 2014 and has been on chemotherapy with the last chemo completed yesterday patient was recently admitted at this facility and the patient was discharged on 07/10/2022 with the patient was treated for lactic acidosis and colitis treated with Zosyn and subsequent discharged home on oral Levaquin and Flagyl however the patient did have a episode of fever at home and apparently did have an episode of nausea and vomiting x1 patient having dry heaves since then patient also having episodes of watery diarrhea but no blood or mucus in the stool also complaining of feeling lightheaded but did not have any syncopal episode or any fall on presentation to the hospital patient did have a fever of 100.3 F patient did have a normal white count with some left shift did have elevated BUN and creatinine lactic acid was elevated liver enzymes are normal urine has been negative patient did have a negative COVID and influenza testing blood cultures obtained which are currently pending stool culture has been ordered which are currently pending patient did have a chest x-ray normal chest with no change patient did have a CT of abdominal pelvis changes consistent with diverticulitis of the proximal sigmoid colon with fat stranding and some fluid in the left paracolic gutter fluid slightly increased compared to old exam no drainable fluid collection patient was started back on Zosyn admitted to the hospital infectious disease was consulted for further management of antibiotic therapy Review of Systems Positive point has been mentioned in the HPI rest of the systems are negative 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, gait dysfunction-uses walker, bilateral pedal/ankle edema, PE 08/2019, chronic low back pain, past vertebral fractures, minimal CAD, shingelles twice, past R heel wound, elevated lipids in the past, History of Any Multi-Drug Resistant Organisms: None Reported Past Surgical History: Heart Catheterization, Orthopedic Surgery Additional Past Surgical History / Comment(s): excision of uvular lesion(benign) 2010, colonoscopy, dave knee arthroscopy, rt rotator cuff sx, moles removed from back(benign), bone marrow aspiration/bx, stem cell transplant 2016, Past Anesthesia/Blood Transfusion Reactions: No Reported Reaction Past Psychological History: No Psychological Hx Reported Additional Psychological History / Comment(s): lives at home with his Blossom and 1 adult son. 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 He has a rollator walker. Smoking Status: Former smoker Past Alcohol Use History: None Reported Additional Past Alcohol Use History / Comment(s): started smoking age 17 and quit age 27, smoked 1ppd Past Drug Use History: Marijuana Additional Drug Use History / Comment(s): Pt states that he occasionally smokes marijuana to help with pain - Past Family History Father Family Medical History: Renal Disease, Vascular Disorder Additional Family Medical History / Comment(s): aaa. Father is . Mother Family Medical History: No Reported History Additional Family Medical History / Comment(s): mom is healthy Medications and Allergies Home Medications Medication Instructions Recorded Confirmed Type Apixaban [Eliquis] 5 mg PO BID 10/03/19 07/14/22 History Aspirin 81 mg PO DAILY 05/16/22 07/14/22 History Acyclovir [Zovirax] 400 mg PO BID 07/07/22 07/14/22 History Gabapentin 300 mg PO HS 07/07/22 07/14/22 History dexAMETHasone 20 mg PO TU 07/07/22 07/14/22 History oxyCODONE HCL [OxyIR] 5 mg PO Q6H PRN 07/07/22 07/14/22 History Levofloxacin [Levaquin] 500 mg PO Q24H 5 Days #5 tab 07/10/22 07/14/22 Rx metroNIDAZOLE [Flagyl] 500 mg PO TID #21 tab 07/10/22 07/14/22 Rx Allergies Allergy/AdvReac Type Severity Reaction Status Date / Time sulfamethoxazole Allergy Rash/Hives Verified 07/14/22 22:42 [From Bactrim] trimethoprim [From Bactrim] Allergy Rash/Hives Verified 07/14/22 22:42 Physical Exam Vitals: Vital Signs Temp Pulse Resp BP Pulse Ox 07/15/22 09:00 98.3 F 72 18 113/68 99 07/15/22 06:42 98.7 F 74 16 112/70 98 07/15/22 05:36 76 14 104/58 97 07/14/22 22:29 99.1 F 07/14/22 20:24 100.3 F H 102 H 16 98 07/14/22 20:05 100.3 F H 102 H 16 140/92 99 Intake and Output 07/14/22 07/15/22 07/15/22 22:59 06:59 14:59 Other: Weight 89.811 kg GENERAL DESCRIPTION: Elderly male lying in bed, no distress. No tachypnea or accessory muscle of respiration use. HEENT: Shows Pallor , no scleral icterus. Oral mucous membrane is dry. No pharyngeal erythema or thrush NECK: Trachea central, no thyromegaly. LUNGS: Unlabored breathing. Clear to auscultation anteriorly. No wheeze or crackle. HEART: S1, S2, regular rate and rhythm. No loud murmur ABDOMEN: Soft, mild tenderness , guarding or rigidity, no organomegaly EXTREMITIES: No edema of feet. SKIN: No rash, no masses palpable. NEUROLOGICAL: The patient is awake, alert, oriented x3, mood and affect normal. Results CBC & Chem 7: 07/18/22 07:02 07/18/22 07:02 Labs: Abnormal Lab Results - Last 24 Hours (Table) 07/14/22 07/14/22 07/14/22 Range/Units 20:05 20:05 20:15 RBC 3.56 L (4.30-5.90) m/uL Hgb 11.1 L (13.0-17.5) gm/dL Hct 36.4 L (39.0-53.0) % MCV 102.2 H (80.0-100.0) fL MCHC 30.6 L (31.0-37.0) g/dL RDW 19.2 H (11.5-15.5) % Neutrophils # 8.0 H (1.3-7.7) k/uL Lymphocytes # 0.3 L (1.0-4.8) k/uL Sodium 135 L (137-145) mmol/L Carbon Dioxide 17 L (22-30) mmol/L BUN 26 H (9-20) mg/dL Creatinine 3.06 H (0.66-1.25) mg/dL Glucose 124 H (74-99) mg/dL Plasma Lactic Acid Jeromy 4.2 H* (0.7-2.0) mmol/L Calcium (8.4-10.2) mg/dL Magnesium (1.6-2.3) mg/dL Total Protein 5.1 L (6.3-8.2) g/dL Albumin 3.1 L (3.5-5.0) g/dL Urine Protein (Negative) Urine Blood (Negative) Ur Leukocyte Esterase (Negative) Urine WBC (0-5) /hpf Urine Mucus (None) /hpf 07/15/22 07/15/22 07/15/22 Range/Units 04:45 04:45 06:42 RBC 2.79 L (4.30-5.90) m/uL Hgb 8.6 L D (13.0-17.5) gm/dL Hct 28.5 L (39.0-53.0) % MCV 102.1 H (80.0-100.0) fL MCHC 30.3 L (31.0-37.0) g/dL RDW 19.0 H (11.5-15.5) % Neutrophils # (1.3-7.7) k/uL Lymphocytes # 0.3 L (1.0-4.8) k/uL Sodium 133 L (137-145) mmol/L Carbon Dioxide 21 L (22-30) mmol/L BUN 28 H (9-20) mg/dL Creatinine 3.20 H (0.66-1.25) mg/dL Glucose 107 H (74-99) mg/dL Plasma Lactic Acid Jeromy (0.7-2.0) mmol/L Calcium 7.7 L (8.4-10.2) mg/dL Magnesium 1.5 L (1.6-2.3) mg/dL Total Protein 3.8 L (6.3-8.2) g/dL Albumin 2.3 L (3.5-5.0) g/dL Urine Protein 2+ H (Negative) Urine Blood Trace H (Negative) Ur Leukocyte Esterase Trace H (Negative) Urine WBC 6 H (0-5) /hpf Urine Mucus Rare H (None) /hpf Assessment and Plan (1) Diverticulitis of sigmoid colon Current Visit: Yes Status: Acute Code(s): K57.32 - DVTRCLI OF LG INT W/O PERFORATION OR ABSCESS W/O BLEEDING SNOMED Code(s): 536541245 Plan: 1patient presented to hospital with a fever and did have nausea vomiting diarrhea and some abdominal discomfort with the CT read shows evidence of sigmoid diverticulitis they seem to have slightly worse from recent exam and likely has failed outpatient oral Levaquin and Flagyl therapy 2keeping in mind his antibiotic exposure and loose stools we will check stool for C. difficile antigen positive 3Zosyn 3.375 g. Every 8 hours to continue for now while waiting for the culture to finalize and condition to stabilize 4gentle IV fluid We will follow on clinical condition and cultures to further adjust medication if needed Thank you for this consultation will follow this patient along with you Time with Patient: Greater than 30
[2022-07-16 09:04] LABS: Basophils # (A) 0.01 X 10*3/uL (0.00-0.10); Basophils % (A) 0.2 %; Eosinophils # (A) 0.13 X 10*3/uL (0.04-0.35); Eosinophils % (A) 2.5 %; HCT 27.7 % (39.6-50.0); HGB 8.5 g/dL (13.0-17.0); Lymphocytes # (A) 0.26 X 10*3/uL (0.90-5.00); Lymphocytes % (A) 4.9 %; MCH 31.6 pg (27.0-32.0); MCHC 30.7 g/dL (32.0-37.0); Mean Platelet Volume 10.5 fL (9.5-12.2); Monocytes # (A) 0.57 X 10*3/uL (0.20-1.00); Monocytes % (A) 10.8 %; NRBC Per 100 WBC 0 /100 WBCS (0.0-0.0); Neutrophils # (A) 4.24 X 10*3/uL (1.80-7.70); Neutrophils % (A) 80.6 %; Platelet Count 268 X 10*3/uL (140-440); RBC 2.69 X 10*6/uL (4.40-5.60); WBC 5.26 X 10*3/uL (4.50-10.00)
[2022-07-16 09:17] LABS: Albumin 2.6 g/dL (3.8-4.9); Magnesium 2.1 mg/dL (1.5-2.4)
[2022-07-16] MEDS: APIXABAN 5 MG TAB PO SCH ×2 (09:21→21:51)
[2022-07-16] MEDS ORDERED: FAMOTIDINE 20 MG/2 ML VIAL IV SCH (10:00)
--- NOTE | 2022-07-16 10:56 | P.PN ---
Subjective Patient is seen in follow-up for acute kidney injury on chronic kidney disease. Renal function a little better. Receiving IV fluids. No vomiting or diarrhea. Blood pressure stable. Vital signs are stable. General: Awake. No acute distress. HEENT: Head exam is unremarkable. LUNGS: Breath sounds decreased. HEART: Rate and Rhythm are regular. ABDOMEN: Soft, no distention. EXTREMITITES: No edema. Objective - Vital Signs Vital signs: Vital Signs Temp 99.3 F 07/16/22 07:29 Pulse 75 07/16/22 07:29 Resp 16 07/16/22 07:29 BP 129/75 07/16/22 07:29 Pulse Ox 97 07/16/22 07:29 FiO2 Intake & Output 07/15/22 07/16/22 07/16/22 18:59 06:59 18:59 Intake Total 1180 Balance 1180 Weight 89.811 kg Intake: Intake, IV Titration 600 Amount Magnesium Sulfate-D5w Pmx 200 1 gm In Dextrose/Water 1 100ml.bag @ 100 mls/hr IVPB Q1H [facility]NA[facility] Rx#: [id number] Piperacillin-Tazobactam 3 100 .375 gm In Sodium Chloride 0.9% 100 ml @ 25 mls/hr IVPB Q8H [facility] Rx#: [id number] Sodium Chloride 0.9% 1, 300 000 ml @ 75 mls/hr IV . [id number] [facility] Rx#:[id number] Oral 580 Other: Voiding Method Urinal Toilet # Voids 2 1 # Bowel Movements 1 0 - Labs CBC & Chem 7: 07/16/22 04:54 07/16/22 04:54 Labs: Abnormal Lab Results - Last 24 Hours (Table) 07/15/22 07/16/22 07/16/22 Range/Units 04:45 04:54 04:54 RBC (4.40-5.60) X 10*6/uL Hgb (13.0-17.0) g/dL Hct (39.6-50.0) % MCV (80.0-97.0) fL MCHC (32.0-37.0) g/dL RDW (11.5-14.5) % Immature Gran # (0.00-0.04) X 10*3/uL Lymphocytes # (0.90-5.00) X 10*3/uL Sodium 134 L (137-145) mmol/L Carbon Dioxide 16 L (22-30) mmol/L BUN 23 H (9-20) mg/dL Creatinine 3.04 H (0.66-1.25) mg/dL Calcium 7.4 L (8.4-10.2) mg/dL Iron 12 L (65-175) ug/dL TIBC 217 L (228-460) ug/dL % Saturation 5.35 L (15.00-50.00) Transferrin 155.0 L (204.0-354.0) mg/dL Albumin 2.6 L (3.8-4.9) g/dL 07/16/22 Range/Units 04:54 RBC 2.69 L (4.40-5.60) X 10*6/uL Hgb 8.5 L (13.0-17.0) g/dL Hct 27.7 L (39.6-50.0) % MCV 103.0 H (80.0-97.0) fL MCHC 30.7 L (32.0-37.0) g/dL RDW 19.0 H (11.5-14.5) % Immature Gran # 0.05 H (0.00-0.04) X 10*3/uL Lymphocytes # 0.26 L (0.90-5.00) X 10*3/uL Sodium (137-145) mmol/L Carbon Dioxide (22-30) mmol/L BUN (9-20) mg/dL Creatinine (0.66-1.25) mg/dL Calcium (8.4-10.2) mg/dL Iron (65-175) ug/dL TIBC (228-460) ug/dL % Saturation (15.00-50.00) Transferrin (204.0-354.0) mg/dL Albumin (3.8-4.9) g/dL Microbiology - Last 24 Hours (Table) 07/15/22 15:45 Stool Culture - Preliminary Stool 07/14/22 20:05 Blood Culture - Preliminary Blood No Growth after 24 hours 07/14/22 20:00 Blood Culture - Preliminary Blood No Growth after 24 hours Assessment and Plan Plan: Assessment: 1. Acute kidney injury mostly prerenal secondary to hypovolemia from diarrhea. Renal function is better. Creatinine 3.04 today. 2. Chronic kidney disease stage IIIB with baseline creatinine near 2 secondary to multiple myeloma. 3. Hyponatremia secondary to acute kidney injury. Better. 4. Metabolic acidosis secondary to acute kidney injury and GI losses. 5. Multiple myeloma. Maintained on chemotherapy outpatient. Follows with oncology. 6. Anemia of chronic kidney disease. Also component of chemotherapy and myeloma. Iron deficiency noted. 7. Fever. Did have diarrhea prior to admission. Unclear source. Did have diverticulitis last week but failed outpatient antibiotics. Infectious disease following. 8. Hypomagnesemia from poor intake and GI losses. Replace. Better. Plan: Change normal saline to bicarb drip for 24 hours. Add IV iron. Continue to monitor renal function and urine output. Encourage oral intake. Avoid nephrotoxins. Follow-up cultures.
[2022-07-16] MEDS: FAMOTIDINE 20 MG/2 ML VIAL IV SCH ×2 (11:48→11:49)
[2022-07-16] MEDS: SODIUM FERRIC GLUCONAT-SUCROSE 125 MG in SODIUM CHLORIDE 0.9% 100 ML IVPB SCH (13:29)
[2022-07-16] MEDS: DEXTROSE 5% IN WATER 1,000 ML with SODIUM BICARB (1 MEQ/ML) 150 ML IV SCH (13:30)
[2022-07-16 16:25] VITALS: BMI 27.6
--- NOTE | 2022-07-16 17:08 | P.PN ---
Subjective Progress Note Date: 07/16/22 Principal diagnosis: Diverticulitis Patient is a 67 year old male with a past medical history the confirmed multiple myeloma patient is currently on chemotherapy, with recent admission to the hospital with diverticulitis subsequent discharged on oral Levaquin and Flagyl presented to the hospital with a fever and concern for diverticulitis failing outpatient therapy. On today's evaluation that is 07/16/2022, the patient denies having any fever or chills, the patient is pretty comfortably currently on room air. No chest pain shortness of breath or cough no abdominal pain no vomiting and no diarrhea reported by the nursing staff Objective - Vital Signs Vital signs: Vital Signs Temp 98.7 F 07/16/22 11:15 Pulse 77 07/16/22 11:15 Resp 18 07/16/22 11:15 BP 136/80 07/16/22 11:15 Pulse Ox 99 07/16/22 11:15 FiO2 Intake & Output 07/15/22 07/16/22 07/16/22 18:59 06:59 18:59 Intake Total 1180 Output Total 3 Balance 1180 -3 Weight 89.811 kg Intake: Intake, IV Titration 600 Amount Magnesium Sulfate-D5w Pmx 200 1 gm In Dextrose/Water 1 100ml.bag @ 100 mls/hr IVPB Q1H [facility] Rx#: [id number] Piperacillin-Tazobactam 3 100 .375 gm In Sodium Chloride 0.9% 100 ml @ 25 mls/hr IVPB Q8H [facility] Rx#: [id number] Sodium Chloride 0.9% 1, 300 000 ml @ 75 mls/hr IV . [id number] [facility] Rx#:[id number] Oral 580 Output: Urine 3 Other: Voiding Method Urinal Toilet # Voids 2 1 # Bowel Movements 1 0 - Exam GENERAL DESCRIPTION: An elderly male lying in bed in no distress RESPIRATORY SYSTEM: Unlabored breathing , decreased breath sounds at bases HEART: S1 S2 regular rate and rhythm , ABDOMEN: Soft , no tenderness EXTREMITIES: No edema feet - Labs CBC & Chem 7: 07/16/22 04:54 07/16/22 04:54 Labs: Abnormal Lab Results - Last 24 Hours (Table) 07/15/22 07/16/22 07/16/22 Range/Units 04:45 04:54 04:54 RBC (4.40-5.60) X 10*6/uL Hgb (13.0-17.0) g/dL Hct (39.6-50.0) % MCV (80.0-97.0) fL MCHC (32.0-37.0) g/dL RDW (11.5-14.5) % Immature Gran # (0.00-0.04) X 10*3/uL Lymphocytes # (0.90-5.00) X 10*3/uL Sodium 134 L (137-145) mmol/L Carbon Dioxide 16 L (22-30) mmol/L BUN 23 H (9-20) mg/dL Creatinine 3.04 H (0.66-1.25) mg/dL Calcium 7.4 L (8.4-10.2) mg/dL Iron 12 L (65-175) ug/dL TIBC 217 L (228-460) ug/dL % Saturation 5.35 L (15.00-50.00) Transferrin 155.0 L (204.0-354.0) mg/dL Albumin 2.6 L (3.8-4.9) g/dL 07/16/22 Range/Units 04:54 RBC 2.69 L (4.40-5.60) X 10*6/uL Hgb 8.5 L (13.0-17.0) g/dL Hct 27.7 L (39.6-50.0) % MCV 103.0 H (80.0-97.0) fL MCHC 30.7 L (32.0-37.0) g/dL RDW 19.0 H (11.5-14.5) % Immature Gran # 0.05 H (0.00-0.04) X 10*3/uL Lymphocytes # 0.26 L (0.90-5.00) X 10*3/uL Sodium (137-145) mmol/L Carbon Dioxide (22-30) mmol/L BUN (9-20) mg/dL Creatinine (0.66-1.25) mg/dL Calcium (8.4-10.2) mg/dL Iron (65-175) ug/dL TIBC (228-460) ug/dL % Saturation (15.00-50.00) Transferrin (204.0-354.0) mg/dL Albumin (3.8-4.9) g/dL Microbiology - Last 24 Hours (Table) 07/15/22 15:45 Stool Culture - Preliminary Stool 07/14/22 20:05 Blood Culture - Preliminary Blood No Growth after 24 hours 07/14/22 20:00 Blood Culture - Preliminary Blood No Growth after 24 hours Assessment and Plan (1) Fever Current Visit: Yes Status: Acute Priority: High Code(s): R50.9 - FEVER, UNSPECIFIED SNOMED Code(s): 013000839 (2) Diverticulitis Current Visit: No Status: Acute Priority: High Code(s): K57.92 - DVTRCLI OF INTEST, PART UNSP, W/O PERF OR ABSCESS W/O BLEED SNOMED Code(s): 124389824 Plan: 1patient presented to hospital with a fever and did have nausea vomiting diarrhea and some abdominal discomfort with the CT read shows evidence of sigmoid diverticulitis they seem to have slightly worse from recent exam and likely has failed outpatient oral Levaquin and Flagyl therapy 2patient fever has resolved and seemed to have evidence of clinical improvement we will continue the patient on Zosyn 3.375 g. Every 8 hours and monitor his clinical course closely Time with Patient: Less than 30
[2022-07-16] MEDS: GABAPENTIN 300 MG CAP PO SCH (21:51)
[2022-07-16] MEDS: ACYCLOVIR 200 MG CAP PO SCH (21:51)
[2022-07-17] MEDS: PIPERACILLIN-TAZOBACTAM 3.375 GM in SODIUM CHLORIDE 0.9% 100 ML IVPB SCH ×3 (04:31→20:45)
[2022-07-17] MEDS: DEXTROSE 5% IN WATER 1,000 ML with SODIUM BICARB (1 MEQ/ML) 150 ML IV SCH (05:56)
[2022-07-17 08:55] LABS: Basophils # (A) 0.01 X 10*3/uL (0.00-0.10); Basophils % (A) 0.4 %; Eosinophils # (A) 0.09 X 10*3/uL (0.04-0.35); Eosinophils % (A) 3.3 %; HCT 26.6 % (39.6-50.0); HGB 8.5 g/dL (13.0-17.0); Immature Grans, Automated 0.4 %; Lymphocytes % (A) 7.3 %; MCH 31.7 pg (27.0-32.0); MCV 99.3 fL (80.0-97.0); Mean Platelet Volume 10.4 fL (9.5-12.2); Monocytes # (A) 0.49 X 10*3/uL (0.20-1.00); Monocytes % (A) 17.9 %; NRBC Per 100 WBC 0 /100 WBCS (0.0-0.0); Neutrophils # (A) 1.94 X 10*3/uL (1.80-7.70); Neutrophils % (A) 70.7 %; Platelet Count 239 X 10*3/uL (140-440); RBC 2.68 X 10*6/uL (4.40-5.60); WBC 2.74 X 10*3/uL (4.50-10.00)
[2022-07-17] MEDS: ASPIRIN 81 MG PO SCH (08:56)
[2022-07-17] MEDS: ACYCLOVIR 200 MG CAP PO SCH ×2 (08:56→20:45)
[2022-07-17] MEDS: APIXABAN 5 MG TAB PO SCH ×2 (08:57→20:45)
[2022-07-17] MEDS: SODIUM FERRIC GLUCONAT-SUCROSE 125 MG in SODIUM CHLORIDE 0.9% 100 ML IVPB SCH (08:59)
[2022-07-17] MEDS ORDERED: dexAMETHasone 4 MG TAB PO SCH (09:00)
[2022-07-17 09:15] LABS: African American GFR (CKD) 26.4 (60.0-200.0); Anion Gap 7.9 mmol/L (10.00-18.00); BUN/Creat Ratio 5.66 Ratio (12.00-20.00); Blood Urea Nitrogen 15.5 mg/dL (9.0-27.0); Calcium 7.4 mg/dL (8.7-10.3); Carbon Dioxide 22.6 mmol/L (20.0-27.5); Non-African American GFR(CKD) 22.8 (60.0-200.0); Potassium 3.9 mmol/L (3.5-5.5)
[2022-07-17] MEDS ORDERED: dexAMETHasone 4 MG TAB PO STA (10:07)
--- NOTE | 2022-07-17 10:11 | P.PN ---
Subjective Progress Note Date: 07/16/22 Principal diagnosis: vomiting In f/u pt is doing ok, still some mild abd discomfort, no fevers, vomiting, cough or chest pain. Objective - Vital Signs Vital signs: Vital Signs Temp 98.7 F 07/16/22 11:15 Pulse 77 07/16/22 11:15 Resp 18 07/16/22 11:15 BP 136/80 07/16/22 11:15 Pulse Ox 99 07/16/22 11:15 FiO2 Intake & Output 07/15/22 07/16/22 07/16/22 18:59 06:59 18:59 Intake Total 1180 Output Total 3 Balance 1180 -3 Weight 89.811 kg 89.811 kg Intake: Intake, IV Titration 600 Amount Magnesium Sulfate-D5w Pmx 200 1 gm In Dextrose/Water 1 100ml.bag @ 100 mls/hr IVPB Q1H [facility] Rx#: [id number] Piperacillin-Tazobactam 3 100 .375 gm In Sodium Chloride 0.9% 100 ml @ 25 mls/hr IVPB Q8H [facility] Rx#: [id number] Sodium Chloride 0.9% 1, 300 000 ml @ 75 mls/hr IV . [id number] [facility] Rx#:[id number] Oral 580 Output: Urine 3 Other: Voiding Method Urinal Toilet # Voids 2 1 # Bowel Movements 1 0 - Constitutional General appearance: Present: average body habitus, cooperative, no acute distress - EENT Eyes: Present: anicteric sclerae, EOMI ENT: Present: hearing grossly normal - Respiratory Respiratory: bilateral: CTA - Cardiovascular Rhythm: regular Heart sounds: normal: S1, S2 Abnormal Heart Sounds: Absent: systolic murmur, diastolic murmur, rub, S3 Gallop, S4 Gallop, click, other - Peripheral edema leg Peripheral Edema: bilateral: Trace - Gastrointestinal General gastrointestinal: Present: normal bowel sounds, soft - Integumentary Integumentary: Present: pale - Neurologic Neurologic: Present: CNII-XII intact - Musculoskeletal Musculoskeletal: Present: generalized weakness - Psychiatric Psychiatric: Present: A&O x's 3, appropriate affect, intact judgment & insight - Labs CBC & Chem 7: 07/17/22 05:49 07/17/22 05:49 Labs: Abnormal Lab Results - Last 24 Hours (Table) 07/15/22 07/16/22 07/16/22 Range/Units 04:45 04:54 04:54 RBC (4.40-5.60) X 10*6/uL Hgb (13.0-17.0) g/dL Hct (39.6-50.0) % MCV (80.0-97.0) fL MCHC (32.0-37.0) g/dL RDW (11.5-14.5) % Immature Gran # (0.00-0.04) X 10*3/uL Lymphocytes # (0.90-5.00) X 10*3/uL Sodium 134 L (137-145) mmol/L Carbon Dioxide 16 L (22-30) mmol/L BUN 23 H (9-20) mg/dL Creatinine 3.04 H (0.66-1.25) mg/dL Calcium 7.4 L (8.4-10.2) mg/dL Iron 12 L (65-175) ug/dL TIBC 217 L (228-460) ug/dL % Saturation 5.35 L (15.00-50.00) Transferrin 155.0 L (204.0-354.0) mg/dL Albumin 2.6 L (3.8-4.9) g/dL 07/16/22 Range/Units 04:54 RBC 2.69 L (4.40-5.60) X 10*6/uL Hgb 8.5 L (13.0-17.0) g/dL Hct 27.7 L (39.6-50.0) % MCV 103.0 H (80.0-97.0) fL MCHC 30.7 L (32.0-37.0) g/dL RDW 19.0 H (11.5-14.5) % Immature Gran # 0.05 H (0.00-0.04) X 10*3/uL Lymphocytes # 0.26 L (0.90-5.00) X 10*3/uL Sodium (137-145) mmol/L Carbon Dioxide (22-30) mmol/L BUN (9-20) mg/dL Creatinine (0.66-1.25) mg/dL Calcium (8.4-10.2) mg/dL Iron (65-175) ug/dL TIBC (228-460) ug/dL % Saturation (15.00-50.00) Transferrin (204.0-354.0) mg/dL Albumin (3.8-4.9) g/dL Microbiology - Last 24 Hours (Table) 07/15/22 15:45 Stool Culture - Preliminary Stool 07/14/22 20:05 Blood Culture - Preliminary Blood No Growth after 24 hours 07/14/22 20:00 Blood Culture - Preliminary Blood No Growth after 24 hours Assessment and Plan (1) Fever Current Visit: Yes Status: Acute Priority: High Code(s): R50.9 - FEVER, UNSPECIFIED SNOMED Code(s): 958717245 (2) Dehydration Current Visit: Yes Status: Acute Priority: High Code(s): E86.0 - DEHYDRATION SNOMED Code(s): 12886758 (3) Multiple myeloma Current Visit: Yes Status: Chronic Priority: Medium Code(s): C90.00 - MULTIPLE MYELOMA NOT HAVING ACHIEVED REMISSION SNOMED Code(s): 871033275 (4) Nausea vomiting and diarrhea Current Visit: No Status: Acute Code(s): R11.2 - NAUSEA WITH VOMITING, UNSPECIFIED; R19.7 - DIARRHEA, UNSPECIFIED SNOMED Code(s): 4758681 (5) Acute kidney injury superimposed on CKD Current Visit: Yes Status: Acute Code(s): N17.9 - ACUTE KIDNEY FAILURE, UNSPECIFIED; N18.9 - CHRONIC KIDNEY DISEASE, UNSPECIFIED SNOMED Code(s): 36994055 (6) Diverticulitis of sigmoid colon Current Visit: Yes Status: Acute Code(s): K57.32 - DVTRCLI OF LG INT W/O PERFORATION OR ABSCESS W/O BLEEDING SNOMED Code(s): 856120060 Plan: No vomiting. Pt is receiving supportive meds and hydration. Fever on abx. Elevated lactic acid. CTAP impression of proximal sigmoid diverticulitis. ID saw pt and adjusted abx. Multiple myeloma treatment, on hold for right now. Appt in DC plan Macrocytic anemia, CKD. Nephrology has seen. Pt is on ZACHARIAH, due Thursday. Pt receiving IV iron. Acute kidney injury on CKD. Nephrology has seen pt.
--- NOTE | 2022-07-17 11:37 | P.PN ---
Subjective Patient is seen in follow-up for acute kidney injury on chronic kidney disease. Renal function improving. Acidosis improved. Currently on bicarb drip. No vomiting or diarrhea. Blood pressure stable. Vital signs are stable. General: Awake. No acute distress. HEENT: Head exam is unremarkable. LUNGS: Breath sounds decreased. HEART: Rate and Rhythm are regular. ABDOMEN: Soft, no distention. EXTREMITITES: No edema. Objective - Vital Signs Vital signs: Vital Signs Temp 97.4 F L 07/17/22 04:55 Pulse 63 07/17/22 04:55 Resp 16 07/17/22 04:55 BP 121/72 07/17/22 04:55 Pulse Ox 95 07/17/22 04:55 FiO2 Intake & Output 07/16/22 07/17/22 07/17/22 18:59 06:59 18:59 Intake Total 590 Output Total 5 0 Balance -5 590 Weight 89.811 kg Intake: Oral 590 Output: Urine 4 Stool 1 0 Other: Voiding Method Toilet Toilet # Voids 3 - Labs CBC & Chem 7: 07/17/22 05:49 07/17/22 05:49 Labs: Abnormal Lab Results - Last 24 Hours (Table) 07/17/22 07/17/22 Range/Units 05:49 05:49 WBC 2.74 L (4.50-10.00) X 10*3/uL RBC 2.68 L (4.40-5.60) X 10*6/uL Hgb 8.5 L (13.0-17.0) g/dL Hct 26.6 L (39.6-50.0) % MCV 99.3 H (80.0-97.0) fL RDW 19.0 H (11.5-14.5) % Lymphocytes # 0.20 L (0.90-5.00) X 10*3/uL Anion Gap 7.90 L (10.00-18.00) mmol/L Creatinine 2.7 H (0.6-1.5) mg/dL Est GFR (CKD-EPI)AfAm 26.4 L (60.0-200.0) Est GFR (CKD-EPI)NonAf 22.8 L (60.0-200.0) BUN/Creatinine Ratio 5.66 L (12.00-20.00) Ratio Calcium 7.4 L (8.7-10.3) mg/dL Microbiology - Last 24 Hours (Table) 07/14/22 20:05 Blood Culture - Preliminary Blood No Growth after 48 hours 07/14/22 20:00 Blood Culture - Preliminary Blood No Growth after 48 hours Assessment and Plan Plan: Assessment: 1. Acute kidney injury mostly prerenal secondary to hypovolemia from diarrhea. Renal function is better. Creatinine 2.7 today. 2. Chronic kidney disease stage IIIB with baseline creatinine near 2 secondary to multiple myeloma. 3. Hyponatremia secondary to acute kidney injury. Better. 4. Metabolic acidosis secondary to acute kidney injury and GI losses. Improved post bicarbonate drip. 5. Multiple myeloma. Maintained on chemotherapy outpatient. Follows with oncology. 6. Anemia of chronic kidney disease. Also component of chemotherapy and myeloma. Iron deficiency noted. 7. Fever. Did have diarrhea prior to admission. Unclear source. Did have diverticulitis last week but failed outpatient antibiotics. Infectious disease following. 8. Hypomagnesemia from poor intake and GI losses. Replaced. Better. Plan: Stop bicarb drip. Resume normal saline at 50 mL an hour. Maintain IV iron. Continue to monitor renal function and urine output. Encourage oral intake. Avoid nephrotoxins. Follow-up cultures.
--- NOTE | 2022-07-17 12:16 | CDI ---
Documentation Clarification Form Date: 07/17/2022 11:59:40 AM From: Judy Go CCS, CCDS Admit Date: 07/14/2022 09:17:00 PM Patient Name: Hernan Paul Visit Number: [id number] Discharge Date: ATTENTION: The Clinical Documentation Specialists (CDI) and [facility] Coding Staff appreciate your assistance in clarifying documentation. Please respond to the clarification below the line at the bottom and electronically sign. The CDI & [facility] Coding staff will review the response and follow-up if needed. Please note: Queries are made part of the Legal Health Record. If you have any questions, please contact the author of this message via ITS. Dr. Barbara Lemons: The patient presented with the following clinical indicators. Additional clarification regarding the etiology/cause of the clinical indicators is requested. 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 Clinical Indicators: Presented to the ED on 07/14 with Weakness, Nausea, Vomiting and Diarrhea. Recently treated with antibiotics for Diverticulitis, antibiotics continued. Admit with Nausea & Vomiting, Acute Diarrhea, Lactic Acidosis, Dehydration, Acute Kidney Injury superimposed on CK, Multiple Myeloma an Diverticulitis of Sigmoid Colon. 07/14 VS: T 100.3, P 102, R 16, BP 140/92, PO 99 RA, BMI: 27.6 07/14 LAB: WBC 8.9, RBC 3.56, Hgb 11.1, Hct 36.4, Neutrophils 8.0, Lymphocytes 0.3; Na 135, CO2 17, BUN 26, Creatinine 3.06, Glucose 124, Lactic Acid 4.2, 1.4; Total Protein 5.1, Albumin 3.1. 07/17 LAB: WBC 2.74, Hgb 8.5, Hct 26.6, Lymphocytes 0.20; Anion gap 7.90, Creatinine 2.7 07/14 CT Abdomen/Pelvis: Diverticulitis of the proximal sigmoid colon. Treatment 07/14: Consults: Oncology, Infectious Disease, Nephrology. Blood cultures x1, Stool culture (07/15), IV Zofran 4 mg x1, IV Na Chl 1,000 mls @ 999 mls/hr q1H, IV Zosyn 100 mls @ 200 mls/hr x1, IV Morphine 4 mg q4H/prn, IV Na Chl 1,000 mls @ 75 mls/hr q8H. In your professional opinion, please clarify if these findings signify one of the following conditions: [ x ] Sepsis POA [ ] Sepsis, Not POA [ ] Severe Sepsis with organ failure [ ] Other, please specify [ ] Unable to determine (Template Last Reviewed: November 2020) MTDD
[2022-07-17] MEDS: SODIUM CHLORIDE 0.9% 1,000 ML IV SCH (12:50)
--- NOTE | 2022-07-17 14:26 | P.PN ---
Subjective Progress Note Date: 07/17/22 Principal diagnosis: vomiting In f/u pt is doing well, intermittent abd discomfort, no fevers, vomiting, cough, diarrhea, black or bloody stool. Objective - Vital Signs Vital signs: Vital Signs Temp 97.4 F L 07/17/22 04:55 Pulse 63 07/17/22 04:55 Resp 16 07/17/22 04:55 BP 121/72 07/17/22 04:55 Pulse Ox 95 07/17/22 04:55 FiO2 Intake & Output 07/16/22 07/17/22 07/17/22 18:59 06:59 18:59 Intake Total 590 Output Total 5 0 Balance -5 590 Weight 89.811 kg Intake: Oral 590 Output: Urine 4 Stool 1 0 Other: Voiding Method Toilet Toilet # Voids 3 - Constitutional General appearance: Present: average body habitus, cooperative, no acute distress - EENT Eyes: Present: anicteric sclerae, EOMI ENT: Present: hearing grossly normal - Respiratory Details: resp even and unlabored - Peripheral edema leg Peripheral Edema: bilateral: Trace - Gastrointestinal General gastrointestinal: Present: normal bowel sounds, soft, tenderness - Integumentary Integumentary: Present: pale - Neurologic Neurologic: Present: CNII-XII intact - Musculoskeletal Musculoskeletal: Present: generalized weakness - Psychiatric Psychiatric: Present: A&O x's 3, appropriate affect, intact judgment & insight - Labs CBC & Chem 7: 07/17/22 05:49 07/17/22 05:49 Labs: Abnormal Lab Results - Last 24 Hours (Table) 07/17/22 07/17/22 Range/Units 05:49 05:49 WBC 2.74 L (4.50-10.00) X 10*3/uL RBC 2.68 L (4.40-5.60) X 10*6/uL Hgb 8.5 L (13.0-17.0) g/dL Hct 26.6 L (39.6-50.0) % MCV 99.3 H (80.0-97.0) fL RDW 19.0 H (11.5-14.5) % Lymphocytes # 0.20 L (0.90-5.00) X 10*3/uL Anion Gap 7.90 L (10.00-18.00) mmol/L Creatinine 2.7 H (0.6-1.5) mg/dL Est GFR (CKD-EPI)AfAm 26.4 L (60.0-200.0) Est GFR (CKD-EPI)NonAf 22.8 L (60.0-200.0) BUN/Creatinine Ratio 5.66 L (12.00-20.00) Ratio Calcium 7.4 L (8.7-10.3) mg/dL Microbiology - Last 24 Hours (Table) 07/14/22 20:05 Blood Culture - Preliminary Blood No Growth after 48 hours 07/14/22 20:00 Blood Culture - Preliminary Blood No Growth after 48 hours Assessment and Plan (1) Fever Current Visit: Yes Status: Acute Priority: High Code(s): R50.9 - FEVER, UNSPECIFIED SNOMED Code(s): 036378408 (2) Dehydration Current Visit: Yes Status: Acute Priority: High Code(s): E86.0 - DEHYDRATION SNOMED Code(s): 44651770 (3) Multiple myeloma Current Visit: Yes Status: Chronic Priority: Medium Code(s): C90.00 - MULTIPLE MYELOMA NOT HAVING ACHIEVED REMISSION SNOMED Code(s): 432645241 (4) Nausea vomiting and diarrhea Current Visit: No Status: Acute Code(s): R11.2 - NAUSEA WITH VOMITING, UNSPECIFIED; R19.7 - DIARRHEA, UNSPECIFIED SNOMED Code(s): 5752998 (5) Acute kidney injury superimposed on CKD Current Visit: Yes Status: Acute Code(s): N17.9 - ACUTE KIDNEY FAILURE, UNSPECIFIED; N18.9 - CHRONIC KIDNEY DISEASE, UNSPECIFIED SNOMED Code(s): 81467315 (6) Diverticulitis of sigmoid colon Current Visit: Yes Status: Acute Code(s): K57.32 - DVTRCLI OF LG INT W/O PERFORATION OR ABSCESS W/O BLEEDING SNOMED Code(s): 038048751 Plan: No vomiting. Pt is receiving supportive meds and hydration. Fever on abx. Elevated lactic acid. CTAP impression of proximal sigmoid diverticulitis. ID saw pt and adjusted abx. Pt stable, little better today. Multiple myeloma treatment, on hold for right now. Appt in DC plan. Did get treatment steroid dose ordered. Macrocytic anemia, CKD. Nephrology has seen. Pt is on ZACHARIAH, due Jose Carlos. Pt receiving IV iron. Acute kidney injury on CKD. Nephrology has seen pt. Attests: I have seen and examined pt, perfomred H&P, developed impression and plan of care. Discussed with dictator. Agree with documentation, dictated as a scribe.
[2022-07-17] MEDS: GABAPENTIN 300 MG CAP PO SCH (20:45)
[2022-07-18] MEDS: PIPERACILLIN-TAZOBACTAM 3.375 GM in SODIUM CHLORIDE 0.9% 100 ML IVPB SCH ×3 (04:36→19:39)
[2022-07-18] MEDS: ACYCLOVIR 200 MG CAP PO SCH ×2 (08:43→19:38)
[2022-07-18] MEDS: ASPIRIN 81 MG PO SCH (08:43)
[2022-07-18] MEDS: APIXABAN 5 MG TAB PO SCH ×2 (08:43→19:38)
[2022-07-18] MEDS: FAMOTIDINE 20 MG/2 ML VIAL IV SCH (08:44)
[2022-07-18] MEDS: SODIUM CHLORIDE 0.9% 1,000 ML IV SCH (08:46)
[2022-07-18] MEDS: SODIUM FERRIC GLUCONAT-SUCROSE 125 MG in SODIUM CHLORIDE 0.9% 100 ML IVPB SCH (09:59)
[2022-07-18 10:27] LABS: Basophils # (A) 0.01 X 10*3/uL (0.00-0.10); Basophils % (A) 0.2 %; Eosinophils # (A) 0 X 10*3/uL (0.04-0.35); Eosinophils % (A) 0 %; HCT 30.1 % (39.6-50.0); HGB 9.4 g/dL (13.0-17.0); Immature Grans, Automated 0.6 %; Lymphocytes # (A) 0.15 X 10*3/uL (0.90-5.00); Lymphocytes % (A) 2.9 %; MCH 31.4 pg (27.0-32.0); MCHC 31.2 g/dL (32.0-37.0); MCV 100.7 fL (80.0-97.0); Mean Platelet Volume 10.9 fL (9.5-12.2); Monocytes # (A) 0.07 X 10*3/uL (0.20-1.00); Monocytes % (A) 1.4 %; NRBC Per 100 WBC 0.6 /100 WBCS (0.0-0.0); Neutrophils # (A) 4.87 X 10*3/uL (1.80-7.70); Neutrophils % (A) 94.9 %; Platelet Count 251 X 10*3/uL (140-440); RBC 2.99 X 10*6/uL (4.40-5.60); RDW 18.6 % (11.5-14.5); WBC 5.13 X 10*3/uL (4.50-10.00)
--- NOTE | 2022-07-18 10:33 | P.PN ---
Subjective Patient is seen in follow-up for acute kidney injury on chronic kidney disease. Renal function improving. Morning labs pending. Acidosis improved. On normal saline. No vomiting or diarrhea. On clear liquid diet. Blood pressure on the higher side. Vital signs are stable. General: Awake. No acute distress. HEENT: Head exam is unremarkable. LUNGS: Breath sounds decreased. HEART: Rate and Rhythm are regular. ABDOMEN: Soft, no distention. EXTREMITITES: No edema. Objective - Vital Signs Vital signs: Vital Signs Temp 97.5 F L 07/18/22 04:53 Pulse 53 L 07/18/22 04:53 Resp 16 07/18/22 04:53 BP 140/78 07/18/22 09:00 Pulse Ox 98 07/18/22 04:53 FiO2 Intake & Output 07/17/22 07/18/22 07/18/22 18:59 06:59 18:59 Intake Total 1700 1630 580 Balance 1700 1630 580 Intake: Intake, IV Titration 1700 800 Amount Dextrose 5% in Water 1, 1000 000 ml @ 75 mls/hr IV . [id number] [facility] with Sodium Bicarb (1 Meq/ml) 150 ml Rx#:[id number] Piperacillin-Tazobactam 3 200 200 .375 gm In Sodium Chloride 0.9% 100 ml @ 25 mls/hr IVPB Q8H [facility] Rx#: [id number] Sodium Chloride 0.9% 1, 400 600 000 ml @ 50 mls/hr IV . Q20H [facility] Rx#:[id number] Sodium Ferric Gluconat- 100 Sucrose 125 mg In Sodium Chloride 0.9% 100 ml @ 100 mls/hr IVPB DAILY [facility] Rx#:[id number] Oral 830 580 Other: Voiding Method Toilet # Voids 3 - Labs CBC & Chem 7: 07/18/22 07:02 07/17/22 05:49 Labs: Abnormal Lab Results - Last 24 Hours (Table) 07/18/22 Range/Units 07:02 RBC 2.99 L (4.40-5.60) X 10*6/uL Hgb 9.4 L (13.0-17.0) g/dL Hct 30.1 L (39.6-50.0) % MCV 100.7 H (80.0-97.0) fL MCHC 31.2 L (32.0-37.0) g/dL RDW 18.6 H (11.5-14.5) % Absolute Nucleated RBC 0.03 H (0.00-0.00) X 10*3/uL Lymphocytes # 0.15 L (0.90-5.00) X 10*3/uL Monocytes # 0.07 L (0.20-1.00) X 10*3/uL Eosinophils # 0 L (0.04-0.35) X 10*3/uL NRBC/100 WBC Diff 0.6 H (0.0-0.0) /100 WBCS Microbiology - Last 24 Hours (Table) 07/14/22 20:00 Blood Culture - Preliminary Blood No Growth after 72 hours 07/14/22 20:05 Blood Culture - Preliminary Blood No Growth after 72 hours 07/15/22 15:45 Stool Culture - Preliminary Stool Assessment and Plan Plan: Assessment: 1. Acute kidney injury mostly prerenal secondary to hypovolemia from diarrhea. Renal function is better. Creatinine 2.7 yesterday. 2. Chronic kidney disease stage IIIB with baseline creatinine near 2 secondary to multiple myeloma. 3. Hyponatremia secondary to acute kidney injury. Improved. 4. Metabolic acidosis secondary to acute kidney injury and GI losses. Improved post bicarbonate drip. 5. Multiple myeloma. Maintained on chemotherapy outpatient. Follows with oncology. 6. Anemia of chronic kidney disease. Also component of chemotherapy and myeloma. Iron deficiency noted. 7. Fever. Did have diarrhea prior to admission. Unclear source. Did have diverticulitis last week but failed outpatient antibiotics. Infectious disease following. 8. Hypomagnesemia from poor intake and GI losses. Replaced. Better. Plan: Maintain normal saline at 50 mL an hour. Maintain IV iron. Continue to monitor renal function and urine output. Encourage oral intake. Avoid nephrotoxins. Follow-up cultures. Morning labs pending. Add amlodipine 5 mg once daily. Hold for systolic blood pressure less than 120.
[2022-07-18 11:03] LABS: Anion Gap 11.5 mmol/L (10.00-18.00); BUN/Creat Ratio 6.5 Ratio (12.00-20.00); Blood Urea Nitrogen 15.6 mg/dL (9.0-27.0); Calcium 7.7 mg/dL (8.7-10.3); Carbon Dioxide 19.5 mmol/L (20.0-27.5); Non-African American GFR(CKD) 26.7 (60.0-200.0); Potassium 4.5 mmol/L (3.5-5.5)
[2022-07-18] MEDS: amLODIPine 5 MG TAB PO SCH (11:37)
--- NOTE | 2022-07-18 16:25 | P.PN ---
Subjective Progress Note Date: 07/17/22 Principal diagnosis: Diverticulitis Patient is a 67 year old male with a past medical history the confirmed multiple myeloma patient is currently on chemotherapy, with recent admission to the hospital with diverticulitis subsequent discharged on oral Levaquin and Flagyl presented to the hospital with a fever and concern for diverticulitis failing outpatient therapy. On today's evaluation that is 07/17/2022, the patient continues to be afebrile, the patient is breathing comfortably on room air. No chest pain shortness of breath or cough no abdominal pain no vomiting and no diarrhea reported by the nursing staff Objective - Vital Signs Vital signs: Vital Signs Temp 98.1 F 07/17/22 12:44 Pulse 56 L 07/17/22 12:44 Resp 19 07/17/22 12:44 BP 161/89 07/17/22 12:44 Pulse Ox 98 07/17/22 12:44 FiO2 Intake & Output 07/16/22 07/17/22 07/17/22 18:59 06:59 18:59 Intake Total 590 Output Total 5 0 Balance -5 590 Weight 89.811 kg Intake: Oral 590 Output: Urine 4 Stool 1 0 Other: Voiding Method Toilet Toilet # Voids 3 - Exam GENERAL DESCRIPTION: An elderly male lying in bed in no distress RESPIRATORY SYSTEM: Unlabored breathing , decreased breath sounds at bases HEART: S1 S2 regular rate and rhythm , ABDOMEN: Soft , no tenderness EXTREMITIES: No edema feet - Labs CBC & Chem 7: 07/18/22 07:02 07/18/22 07:02 Labs: Abnormal Lab Results - Last 24 Hours (Table) 07/17/22 07/17/22 Range/Units 05:49 05:49 WBC 2.74 L (4.50-10.00) X 10*3/uL RBC 2.68 L (4.40-5.60) X 10*6/uL Hgb 8.5 L (13.0-17.0) g/dL Hct 26.6 L (39.6-50.0) % MCV 99.3 H (80.0-97.0) fL RDW 19.0 H (11.5-14.5) % Lymphocytes # 0.20 L (0.90-5.00) X 10*3/uL Anion Gap 7.90 L (10.00-18.00) mmol/L Creatinine 2.7 H (0.6-1.5) mg/dL Est GFR (CKD-EPI)AfAm 26.4 L (60.0-200.0) Est GFR (CKD-EPI)NonAf 22.8 L (60.0-200.0) BUN/Creatinine Ratio 5.66 L (12.00-20.00) Ratio Calcium 7.4 L (8.7-10.3) mg/dL Microbiology - Last 24 Hours (Table) 07/14/22 20:05 Blood Culture - Preliminary Blood No Growth after 48 hours 07/14/22 20:00 Blood Culture - Preliminary Blood No Growth after 48 hours Assessment and Plan (1) Fever Current Visit: Yes Status: Acute Priority: High Code(s): R50.9 - FEVER, UNSPECIFIED SNOMED Code(s): 188197324 (2) Diverticulitis Current Visit: No Status: Acute Priority: High Code(s): K57.92 - DVTRCLI OF INTEST, PART UNSP, W/O PERF OR ABSCESS W/O BLEED SNOMED Code(s): 408126602 Plan: 1patient presented to hospital with a fever and did have nausea vomiting diarrhea and some abdominal discomfort with the CT read shows evidence of sigmoid diverticulitis they seem to have slightly worse from recent exam and likely has failed outpatient oral Levaquin and Flagyl therapy 2patient seemed to have show some clinical improvement and will continue wi thZosyn 3.375 g. Every 8 hours along with bowel rest Time with Patient: Less than 30
--- NOTE | 2022-07-18 16:26 | P.PN ---
Subjective Progress Note Date: 07/18/22 Principal diagnosis: Diverticulitis Patient is a 67 year old male with a past medical history the confirmed multiple myeloma patient is currently on chemotherapy, with recent admission to the hospital with diverticulitis subsequent discharged on oral Levaquin and Flagyl presented to the hospital with a fever and concern for diverticulitis failing outpatient therapy. On today's evaluation that is 07/18/2022, the patient remains to be afebrile, the patient is breathing comfortably on room air. The patient denies chest pain shortness of breath or cough , the patient denies any nausea no vomiting and abdominal pain is improved and no diarrhea, patient wants diet to be advanced Objective - Vital Signs Vital signs: Vital Signs Temp 97.5 F L 07/18/22 12:17 Pulse 57 L 07/18/22 12:17 Resp 18 07/18/22 12:17 BP 157/93 07/18/22 12:17 Pulse Ox 100 07/18/22 12:17 FiO2 Intake & Output 07/17/22 07/18/22 07/18/22 18:59 06:59 18:59 Intake Total 1700 1630 580 Balance 1700 1630 580 Weight 89.811 kg Intake: Intake, IV Titration 1700 800 Amount Dextrose 5% in Water 1, 1000 000 ml @ 75 mls/hr IV . [id number] NNAMDI with Sodium Bicarb (1 Meq/ml) 150 ml Rx#:[id number] Piperacillin-Tazobactam 3 200 200 .375 gm In Sodium Chloride 0.9% 100 ml @ 25 mls/hr IVPB Q8H NNAMDI Rx#: [id number] Sodium Chloride 0.9% 1, 400 600 000 ml @ 50 mls/hr IV . Q20H NNAMDI Rx#:[id number] Sodium Ferric Gluconat- 100 Sucrose 125 mg In Sodium Chloride 0.9% 100 ml @ 100 mls/hr IVPB DAILY NNAMDI Rx#:[id number] Oral 830 580 Other: Voiding Method Toilet # Voids 3 - Exam GENERAL DESCRIPTION: An elderly male lying in bed in no distress RESPIRATORY SYSTEM: Unlabored breathing , decreased breath sounds at bases HEART: S1 S2 regular rate and rhythm , ABDOMEN: Soft , no tenderness EXTREMITIES: No edema feet - Labs CBC & Chem 7: 07/18/22 07:02 07/18/22 07:02 Labs: Abnormal Lab Results - Last 24 Hours (Table) 07/18/22 07/18/22 Range/Units 07:02 07:02 RBC 2.99 L (4.40-5.60) X 10*6/uL Hgb 9.4 L (13.0-17.0) g/dL Hct 30.1 L (39.6-50.0) % MCV 100.7 H (80.0-97.0) fL MCHC 31.2 L (32.0-37.0) g/dL RDW 18.6 H (11.5-14.5) % Absolute Nucleated RBC 0.03 H (0.00-0.00) X 10*3/uL Lymphocytes # 0.15 L (0.90-5.00) X 10*3/uL Monocytes # 0.07 L (0.20-1.00) X 10*3/uL Eosinophils # 0 L (0.04-0.35) X 10*3/uL NRBC/100 WBC Diff 0.6 H (0.0-0.0) /100 WBCS Carbon Dioxide 19.5 L (20.0-27.5) mmol/L Creatinine 2.4 H (0.6-1.5) mg/dL Est GFR (CKD-EPI)AfAm 31.0 L (60.0-200.0) Est GFR (CKD-EPI)NonAf 26.7 L (60.0-200.0) BUN/Creatinine Ratio 6.50 L (12.00-20.00) Ratio Glucose 139 H (70-110) mg/dL Calcium 7.7 L (8.7-10.3) mg/dL Microbiology - Last 24 Hours (Table) 07/14/22 20:00 Blood Culture - Preliminary Blood No Growth after 72 hours 07/14/22 20:05 Blood Culture - Preliminary Blood No Growth after 72 hours 07/15/22 15:45 Stool Culture - Preliminary Stool Assessment and Plan (1) Fever Current Visit: Yes Status: Acute Priority: High Code(s): R50.9 - FEVER, UNSPECIFIED SNOMED Code(s): 992890127 (2) Diverticulitis Current Visit: No Status: Acute Priority: High Code(s): K57.92 - DVTRCLI OF INTEST, PART UNSP, W/O PERF OR ABSCESS W/O BLEED SNOMED Code(s): 054634706 Plan: 1patient presented to hospital with a fever and did have nausea vomiting diarrhea and some abdominal discomfort with the CT read shows evidence of sigmoid diverticulitis they seem to have slightly worse from recent exam and likely has failed outpatient oral Levaquin and Flagyl therapy 2patient has shown clinical improvement and will continue withZosyn 3.375 g. Every 8 hours will advance his diet and see clinical response Time with Patient: Less than 30
--- NOTE | 2022-07-18 18:12 | P.PN ---
Subjective Progress Note Date: 07/18/22 Feel ing ok today, Hemoglobin 9.4 Objective - Vital Signs Vital signs: Vital Signs Temp 97.5 F L 07/18/22 12:17 Pulse 57 L 07/18/22 12:17 Resp 18 07/18/22 12:17 BP 157/93 07/18/22 12:17 Pulse Ox 100 07/18/22 12:17 FiO2 Intake & Output 07/17/22 07/18/22 07/18/22 18:59 06:59 18:59 Intake Total 1700 1630 580 Balance 1700 1630 580 Weight 89.811 kg Intake: Intake, IV Titration 1700 800 Amount Dextrose 5% in Water 1, 1000 000 ml @ 75 mls/hr IV . [id number] NNAMDI with Sodium Bicarb (1 Meq/ml) 150 ml Rx#:[id number] Piperacillin-Tazobactam 3 200 200 .375 gm In Sodium Chloride 0.9% 100 ml @ 25 mls/hr IVPB Q8H NNAMDI Rx#: [id number] Sodium Chloride 0.9% 1, 400 600 000 ml @ 50 mls/hr IV . Q20H NNAMDI Rx#:[id number] Sodium Ferric Gluconat- 100 Sucrose 125 mg In Sodium Chloride 0.9% 100 ml @ 100 mls/hr IVPB DAILY [facility] Rx#:[id number] Oral 830 580 Other: Voiding Method Toilet # Voids 3 - Exam - Constitutional General appearance: Present: average body habitus, cooperative, no acute distress - EENT Eyes: Present: anicteric sclerae, EOMI ENT: Present: hearing grossly normal - Respiratory Details: resp even and unlabored - Peripheral edema leg Peripheral Edema: bilateral: Trace - Gastrointestinal General gastrointestinal: Present: normal bowel sounds, soft, tenderness - Integumentary Integumentary: Present: pale - Neurologic Neurologic: Present: CNII-XII intact - Musculoskeletal Musculoskeletal: Present: generalized weakness - Psychiatric Psychiatric: Present: A&O x's 3, appropriate affect, intact judgment & insight - Labs CBC & Chem 7: 07/18/22 07:02 07/18/22 07:02 Labs: Abnormal Lab Results - Last 24 Hours (Table) 07/18/22 07/18/22 Range/Units 07:02 07:02 RBC 2.99 L (4.40-5.60) X 10*6/uL Hgb 9.4 L (13.0-17.0) g/dL Hct 30.1 L (39.6-50.0) % MCV 100.7 H (80.0-97.0) fL MCHC 31.2 L (32.0-37.0) g/dL RDW 18.6 H (11.5-14.5) % Absolute Nucleated RBC 0.03 H (0.00-0.00) X 10*3/uL Lymphocytes # 0.15 L (0.90-5.00) X 10*3/uL Monocytes # 0.07 L (0.20-1.00) X 10*3/uL Eosinophils # 0 L (0.04-0.35) X 10*3/uL NRBC/100 WBC Diff 0.6 H (0.0-0.0) /100 WBCS Carbon Dioxide 19.5 L (20.0-27.5) mmol/L Creatinine 2.4 H (0.6-1.5) mg/dL Est GFR (CKD-EPI)AfAm 31.0 L (60.0-200.0) Est GFR (CKD-EPI)NonAf 26.7 L (60.0-200.0) BUN/Creatinine Ratio 6.50 L (12.00-20.00) Ratio Glucose 139 H (70-110) mg/dL Calcium 7.7 L (8.7-10.3) mg/dL Microbiology - Last 24 Hours (Table) 07/14/22 20:00 Blood Culture - Preliminary Blood No Growth after 72 hours 07/14/22 20:05 Blood Culture - Preliminary Blood No Growth after 72 hours 07/15/22 15:45 Stool Culture - Preliminary Stool Assessment and Plan Plan: Assessment and Plan (1) Fever Current Visit: Yes Status: Acute Priority: High Code(s): R50.9 - FEVER, UNSPECIFIED SNOMED Code(s): 053984406 (2) Dehydration Current Visit: Yes Status: Acute Priority: High Code(s): E86.0 - DEHYDRATION SNOMED Code(s): 09105594 (3) Multiple myeloma Current Visit: Yes Status: Chronic Priority: Medium Code(s): C90.00 - MULTIPLE MYELOMA NOT HAVING ACHIEVED REMISSION SNOMED Code(s): 198244240 (4) Nausea vomiting and diarrhea Current Visit: No Status: Acute Code(s): R11.2 - NAUSEA WITH VOMITING, UNSPECIFIED; R19.7 - DIARRHEA, UNSPECIFIED SNOMED Code(s): 2396594 (5) Acute kidney injury superimposed on CKD Current Visit: Yes Status: Acute Code(s): N17.9 - ACUTE KIDNEY FAILURE, UNSPECIFIED; N18.9 - CHRONIC KIDNEY DISEASE, UNSPECIFIED SNOMED Code(s): 51284358 (6) Diverticulitis of sigmoid colon Current Visit: Yes Status: Acute Code(s): K57.32 - DVTRCLI OF LG INT W/O PERFORATION OR ABSCESS W/O BLEEDING SNOMED Code(s): 896714699 Plan: No vomiting. Pt is receiving supportive meds and hydration. Afebrile 24 hours on abx. Elevated lactic acid. CTAP impression of proximal sigmoid diverticulitis. ID saw pt and adjusted abx. Pt stable, little better today. Dr. Dave: I have completed the full history and physical and developed the above impression and plan, agree with dictation, dictated as a scribe
[2022-07-18] MEDS: GABAPENTIN 300 MG CAP PO SCH (19:39)
[2022-07-19] MEDS: PIPERACILLIN-TAZOBACTAM 3.375 GM in SODIUM CHLORIDE 0.9% 100 ML IVPB SCH ×3 (04:28→19:40)
[2022-07-19] MEDS: SODIUM CHLORIDE 0.9% 1,000 ML IV SCH (04:28)
[2022-07-19] MEDS: FAMOTIDINE 20 MG/2 ML VIAL IV SCH (08:38)
[2022-07-19] MEDS: amLODIPine 5 MG TAB PO SCH (08:39)
[2022-07-19] MEDS: ASPIRIN 81 MG PO SCH (08:39)
[2022-07-19] MEDS: APIXABAN 5 MG TAB PO SCH ×2 (08:39→19:39)
[2022-07-19] MEDS: ACYCLOVIR 200 MG CAP PO SCH ×2 (08:39→19:39)
[2022-07-19] MEDS: SODIUM FERRIC GLUCONAT-SUCROSE 125 MG in SODIUM CHLORIDE 0.9% 100 ML IVPB SCH (09:52)
[2022-07-19 10:00] LABS: African American GFR (CKD) 32.6 (60.0-200.0); Anion Gap 11.4 mmol/L (10.00-18.00); BUN/Creat Ratio 9.26 Ratio (12.00-20.00); Blood Urea Nitrogen 21.3 mg/dL (9.0-27.0); Calcium 7.4 mg/dL (8.7-10.3); Carbon Dioxide 19.6 mmol/L (20.0-27.5); Magnesium 1.9 mg/dL (1.5-2.4); Non-African American GFR(CKD) 28.1 (60.0-200.0); Potassium 4.1 mmol/L (3.5-5.5)
--- NOTE | 2022-07-19 11:37 | P.PN ---
Subjective Patient is seen for follow-up for acute kidney injury mostly prerenal currently improved with IV hydration. He is tolerating oral intake No significant complaints today Objective - Vital Signs Vital signs: Vital Signs Temp 97.5 F L 07/19/22 05:00 Pulse 65 07/19/22 08:33 Resp 16 07/19/22 05:00 BP 157/81 07/19/22 08:33 Pulse Ox 99 07/19/22 08:33 FiO2 Intake & Output 07/18/22 07/19/22 07/19/22 18:59 06:59 18:59 Intake Total 1380 Balance 1380 Weight 89.811 kg Intake: Intake, IV Titration 800 Amount Piperacillin-Tazobactam 3 200 .375 gm In Sodium Chloride 0.9% 100 ml @ 25 mls/hr IVPB Q8H NNAMDI Rx#: [id number] Sodium Chloride 0.9% 1, 600 000 ml @ 50 mls/hr IV . Q20H NNAMDI Rx#:[id number] Oral 580 Other: Voiding Method Toilet Toilet # Voids 2 - Exam Awake, comfortable, not in any acute distress Examination of the heart S1 and S2 Examination lungs bilateral breath sounds are heard Abdomen is soft nontender Examination lower extremity shows no significant edema [employer] exam grossly intact - Labs CBC & Chem 7: 07/18/22 07:02 07/19/22 03:52 Labs: Abnormal Lab Results - Last 24 Hours (Table) 07/19/22 Range/Units 03:52 Chloride 112 H (96-109) mmol/L Carbon Dioxide 19.6 L (20.0-27.5) mmol/L Creatinine 2.3 H (0.6-1.5) mg/dL Est GFR (CKD-EPI)AfAm 32.6 L (60.0-200.0) Est GFR (CKD-EPI)NonAf 28.1 L (60.0-200.0) BUN/Creatinine Ratio 9.26 L (12.00-20.00) Ratio Glucose 156 H (70-110) mg/dL Calcium 7.4 L (8.7-10.3) mg/dL Microbiology - Last 24 Hours (Table) 07/14/22 20:05 Blood Culture - Preliminary Blood No Growth after 96 hours 07/14/22 20:00 Blood Culture - Preliminary Blood No Growth after 96 hours 07/15/22 15:45 Stool Culture - Final Stool Assessment and Plan Assessment: 1. Acute kidney injury mostly prerenal secondary to hypovolemia from diarrhea. Renal function is better. Creatinine down to 2.3 today 2. Chronic kidney disease stage IIIB with baseline creatinine near 2 secondary to multiple myeloma. 3. Hyponatremia secondary to acute kidney injury. Improved. 4. Metabolic acidosis secondary to acute kidney injury and GI losses. Improved post bicarbonate drip. 5. Multiple myeloma. Maintained on chemotherapy outpatient. Follows with oncology. 6. Anemia of chronic kidney disease. Also component of chemotherapy and myeloma. Iron deficiency noted. 7. Fever. Did have diarrhea prior to admission. Unclear source. Did have diverticulitis last week but failed outpatient antibiotics. Infectious disease following. 8. Hypomagnesemia from poor intake and GI losses. Replaced. Better. Plan: Continue to encourage increase oral intake Add oral sodium bicarb Follow-up as outpatient for CK D
[2022-07-19] MEDS: SODIUM BICARBONATE TAB 650 MG TAB PO SCH (14:20)
[2022-07-19] MEDS: GABAPENTIN 300 MG CAP PO SCH (19:39)
[2022-07-20] MEDS: SODIUM CHLORIDE 0.9% 1,000 ML IV SCH (05:25)
[2022-07-20] MEDS: PIPERACILLIN-TAZOBACTAM 3.375 GM in SODIUM CHLORIDE 0.9% 100 ML IVPB SCH ×2 (05:26→13:01)
[2022-07-20] MEDS: ACYCLOVIR 200 MG CAP PO SCH (09:28)
[2022-07-20] MEDS: APIXABAN 5 MG TAB PO SCH (09:28)
[2022-07-20] MEDS: SODIUM BICARBONATE TAB 650 MG TAB PO SCH (09:29)
[2022-07-20] MEDS: ASPIRIN 81 MG PO SCH (09:29)
[2022-07-20] MEDS: amLODIPine 5 MG TAB PO SCH (09:29)
[2022-07-20] MEDS: FAMOTIDINE 20 MG/2 ML VIAL IV SCH (09:50)
--- NOTE | 2022-07-20 11:10 | P.PN ---
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 Patient received chemotherapy and after reaching home and took the antibiotics. Patient started having nausea and episodes of vomiting nonbilious and unable to keep down food. No blood in the vomit. Patient has been having dry heaves and no complaints of significant abdominal pain. Patient also had several episodes of watery diarrhea since starting the antibiotic last week. Presents ER for further evaluation. Patient was recently admitted to hospital for diverticulitis and is on antibiotics. Denied any complaints of headache or dizziness. No cough or sputum production. No numbness or tingling. Patient was febrile on admission with T-max 100.3 and pulse ox 99% on room air. Patient was tachycardic on admission. Chest x-ray showed normal chest. No change. CT of abdomen pelvis showed changes consistent with diverticulitis of the pro ximal sigmoid colon with fat stranding and some fluid in the left paracolic. Fluid slightly increased compared to last exam. No drainable fluid collection. Next and EKG showed sinus tachycardia Laboratory data show WBC 8.9 hemoglobin 11.1 and platelets 403 Surgical wound that her potassium 3.9 chloride 1-2 bicarb is 17 BUN 26 and creatinine 3.06 and lactic acid 4.2 on admission Larios virus PCR and influenza AB-. 07/16/2022 Patient is currently lying in the bed. Awake alert and oriented 3. Abdominal pain is improved. No complaints of fever or chills. Still nauseous. Patient is being continued on antibiotics in the form of Zosyn for colitis. No complaints of diarrhea. No episodes of vomiting. Laboratory data showed WBC 5.2 hemoglobin 8.5 and platelets 268 Sodium 134 potassium 4.0 chloride 107 bicarb is 16 BUN 20. Creatinine 3.04. Nephrology and ID is on board. Current medications reviewed. Objective - Vital Signs Vital signs: Vital Signs Temp 98.3 F 07/16/22 17:45 Pulse 64 07/16/22 17:45 Resp 18 07/16/22 17:45 BP 142/80 07/16/22 17:45 Pulse Ox 100 07/16/22 17:45 FiO2 Intake & Output 07/16/22 07/16/22 07/17/22 06:59 18:59 06:59 Output Total 5 Balance -5 Weight 89.811 kg Output: Urine 4 Stool 1 Other: Voiding Method Urinal Toilet # Voids 1 # Bowel Movements 0 - Exam PHYSICAL EXAMINATION: Patient is lying in the bed comfortably, no acute distress, awake alert and oriented.. HEENT: Normocephalic. Neck is supple. Pupils reactive. Nostrils clear. Oral cavity is moist. Neck reveals no JVD, carotid bruits, or thyromegaly. CHEST EXAMINATION: Trachea is central. Symmetrical expansion. Lung acevedo clear to auscultation and percussion. CARDIAC: Normal S1, S2 with no gallops. No murmurs ABDOMEN: Soft. Bowel sounds normal. No organomegaly. No abdominal bruits. Extremities: reveal no edema. No clubbing or cyanosis Neurologically awake, alert, oriented x3 with well-coordinated movements. No focal deficits noted Skin: No rash or skin lesions. Psychiatric: Coperative. Nonsuicidal Musculoskeletal: No joint swelling or deformity. Normal range of motion. - Labs CBC & Chem 7: 07/18/22 07:02 07/19/22 03:52 Labs: Abnormal Lab Results - Last 24 Hours (Table) 07/16/22 07/16/22 07/16/22 Range/Units 04:54 04:54 04:54 RBC 2.69 L (4.40-5.60) X 10*6/uL Hgb 8.5 L (13.0-17.0) g/dL Hct 27.7 L (39.6-50.0) % MCV 103.0 H (80.0-97.0) fL MCHC 30.7 L (32.0-37.0) g/dL RDW 19.0 H (11.5-14.5) % Immature Gran # 0.05 H (0.00-0.04) X 10*3/uL Lymphocytes # 0.26 L (0.90-5.00) X 10*3/uL Sodium 134 L (137-145) mmol/L Carbon Dioxide 16 L (22-30) mmol/L BUN 23 H (9-20) mg/dL Creatinine 3.04 H (0.66-1.25) mg/dL Calcium 7.4 L (8.4-10.2) mg/dL Albumin 2.6 L (3.8-4.9) g/dL Microbiology - Last 24 Hours (Table) 07/15/22 15:45 Stool Culture - Preliminary Stool 07/14/22 20:05 Blood Culture - Preliminary Blood No Growth after 24 hours 07/14/22 20:00 Blood Culture - Preliminary Blood No Growth after 24 hours Assessment and Plan Assessment: Acute sigmoid diverticulitis slightly worse from last admission and status post antibiotic course. Failed outpatient therapy.. Intractable nausea vomiting and diarrhea and abdominal discomfort Acute kidney injury likely prerenal secondary to nausea vomiting and diarrhea. Creatinine 3.2 on admission. Baseline creatinine was 1.6 Hypovolemic hyponatremia Metabolic acidosis secondary to acute kidney injury Multiple myeloma currently undergoing chemotherapy Anemia of chronic disease Hypomagnesemia. Replaced. GI and DVT prophylaxis Plan: Patient be continued on IV hydration with normal saline. Continue with IV antibiotics Zosyn and stool for C. diff toxin was sent due to diarrhea. Continue with symptomatic management for nausea and vomiting. Follow-up renal function and continue with home medications. Avoid nephrotoxins. Oncology nephrology and ID is on board. Time with Patient: Greater than 30
--- NOTE | 2022-07-20 11:13 | P.PN ---
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 Patient received chemotherapy and after reaching home and took the antibiotics. Patient started having nausea and episodes of vomiting nonbilious and unable to keep down food. No blood in the vomit. Patient has been having dry heaves and no complaints of significant abdominal pain. Patient also had several episodes of watery diarrhea since starting the antibiotic last week. Presents ER for further evaluation. Patient was recently admitted to hospital for diverticulitis and is on antibiotics. Denied any complaints of headache or dizziness. No cough or sputum production. No numbness or tingling. Patient was febrile on admission with T-max 100.3 and pulse ox 99% on room air. Patient was tachycardic on admission. Chest x-ray showed normal chest. No change. CT of abdomen pelvis showed changes consistent with diverticulitis of the pro ximal sigmoid colon with fat stranding and some fluid in the left paracolic. Fluid slightly increased compared to last exam. No drainable fluid collection. Next and EKG showed sinus tachycardia Laboratory data show WBC 8.9 hemoglobin 11.1 and platelets 403 Surgical wound that her potassium 3.9 chloride 1-2 bicarb is 17 BUN 26 and creatinine 3.06 and lactic acid 4.2 on admission Larios virus PCR and influenza AB-. 07/16/2022 Patient is currently lying in the bed. Awake alert and oriented 3. Abdominal pain is improved. No complaints of fever or chills. Still nauseous. Patient is being continued on antibiotics in the form of Zosyn for colitis. No complaints of diarrhea. No episodes of vomiting. Laboratory data showed WBC 5.2 hemoglobin 8.5 and platelets 268 Sodium 134 potassium 4.0 chloride 107 bicarb is 16 BUN 20. Creatinine 3.04. Nephrology and ID is on board. 07/17/2022 Patient is lying in the bed. Awake alert and oriented 3.Of vomiting. Nausea is improving as well. No complaints of chest pain or shortness of breath. No diarrhea. Patient is being continued on antibiotics of Zosyn for colitis. ID and nephrology is on board. Renal function is improving slowly. Patient is on IV iron Laboratory data showed WBC 2.7 hemoglobin 8.5 and platelets 239 Sodium 139 potassium 3.912 9 BUN 15 and creatinine 2.7. Patient is tolerating liquids. No episodes of diarrhea. Current medications reviewed. Objective - Vital Signs Vital signs: Vital Signs Temp 97.7 F 07/17/22 18:49 Pulse 68 07/17/22 18:49 Resp 16 07/17/22 18:49 BP 155/88 07/17/22 18:49 Pulse Ox 100 07/17/22 18:49 FiO2 Intake & Output 07/17/22 07/17/22 07/18/22 06:59 18:59 06:59 Intake Total 590 1700 Output Total 0 Balance 590 1700 Intake: Intake, IV Titration 1700 Amount Dextrose 5% in Water 1, 1000 000 ml @ 75 mls/hr IV . [id number] NNAMDI with Sodium Bicarb (1 Meq/ml) 150 ml Rx#:[id number] Piperacillin-Tazobactam 3 200 .375 gm In Sodium Chloride 0.9% 100 ml @ 25 mls/hr IVPB Q8H [facility] Rx#: [id number] Sodium Chloride 0.9% 1, 400 000 ml @ 50 mls/hr IV . Q20H [facility]NA[facility] Rx#:[id number] Sodium Ferric Gluconat- 100 Sucrose 125 mg In Sodium Chloride 0.9% 100 ml @ 100 mls/hr IVPB DAILY [facility] Rx#:[id number] Oral 590 Output: Stool 0 Other: Voiding Method Toilet # Voids 3 - Exam PHYSICAL EXAMINATION: Patient is lying in the bed comfortably, no acute distress, awake alert and orie nted.. HEENT: Normocephalic. Neck is supple. Pupils reactive. Nostrils clear. Oral cavity is moist. Neck reveals no JVD, carotid bruits, or thyromegaly. CHEST EXAMINATION: Trachea is central. Symmetrical expansion. Lung acevedo clear to auscultation and percussion. CARDIAC: Normal S1, S2 with no gallops. No murmurs ABDOMEN: Soft. Bowel sounds normal. No organomegaly. No abdominal bruits. Extremities: reveal no edema. No clubbing or cyanosis Neurologically awake, alert, oriented x3 with well-coordinated movements. No focal deficits noted Skin: No rash or skin lesions. Psychiatric: Coperative. Nonsuicidal Musculoskeletal: No joint swelling or deformity. Normal range of motion. - Labs CBC & Chem 7: 07/18/22 07:02 07/19/22 03:52 Labs: Abnormal Lab Results - Last 24 Hours (Table) 07/17/22 07/17/22 Range/Units 05:49 05:49 WBC 2.74 L (4.50-10.00) X 10*3/uL RBC 2.68 L (4.40-5.60) X 10*6/uL Hgb 8.5 L (13.0-17.0) g/dL Hct 26.6 L (39.6-50.0) % MCV 99.3 H (80.0-97.0) fL RDW 19.0 H (11.5-14.5) % Lymphocytes # 0.20 L (0.90-5.00) X 10*3/uL Anion Gap 7.90 L (10.00-18.00) mmol/L Creatinine 2.7 H (0.6-1.5) mg/dL Est GFR (CKD-EPI)AfAm 26.4 L (60.0-200.0) Est GFR (CKD-EPI)NonAf 22.8 L (60.0-200.0) BUN/Creatinine Ratio 5.66 L (12.00-20.00) Ratio Calcium 7.4 L (8.7-10.3) mg/dL Microbiology - Last 24 Hours (Table) 07/15/22 15:45 Stool Culture - Preliminary Stool 07/14/22 20:05 Blood Culture - Preliminary Blood No Growth after 48 hours 07/14/22 20:00 Blood Culture - Preliminary Blood No Growth after 48 hours Assessment and Plan Assessment: Acute sigmoid diverticulitis slightly worse from last admission and status post antibiotic course. Failed outpatient therapy.. Intractable nausea vomiting and diarrhea and abdominal discomfort Acute kidney injury likely prerenal secondary to nausea vomiting and diarrhea. Creatinine 3.2 on admission. Baseline creatinine was 1.6 Hypovolemic hyponatremia Metabolic acidosis secondary to acute kidney injury Multiple myeloma currently undergoing chemotherapy Anemia of chronic disease due to CKD and Underlying malignancy. Iron deficiency anemia Hypomagnesemia. Replaced. GI and DVT prophylaxis Plan: Patient be continued on IV hydration with normal saline. Continue with IV antibiotics Zosyn and stool for C. diff toxin was sent due to diarrhea. Continue with symptomatic management for nausea and vomiting. Follow-up renal function and continue with home medications. Avoid nephrotox ins. Oncology nephrology and ID is on board. Time with Patient: Greater than 30
--- NOTE | 2022-07-20 11:15 | P.PN ---
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 Patient received chemotherapy and after reaching home and took the antibiotics. Patient started having nausea and episodes of vomiting nonbilious and unable to keep down food. No blood in the vomit. Patient has been having dry heaves and no complaints of significant abdominal pain. Patient also had several episodes of watery diarrhea since starting the antibiotic last week. Presents ER for further evaluation. Patient was recently admitted to hospital for diverticulitis and is on antibiotics. Denied any complaints of headache or dizziness. No cough or sputum production. No numbness or tingling. Patient was febrile on admission with T-max 100.3 and pulse ox 99% on room air. Patient was tachycardic on admission. Chest x-ray showed normal chest. No change. CT of abdomen pelvis showed changes consistent with diverticulitis of the pro ximal sigmoid colon with fat stranding and some fluid in the left paracolic. Fluid slightly increased compared to last exam. No drainable fluid collection. Next and EKG showed sinus tachycardia Laboratory data show WBC 8.9 hemoglobin 11.1 and platelets 403 Surgical wound that her potassium 3.9 chloride 1-2 bicarb is 17 BUN 26 and creatinine 3.06 and lactic acid 4.2 on admission Larios virus PCR and influenza AB-. 07/16/2022 Patient is currently lying in the bed. Awake alert and oriented 3. Abdominal pain is improved. No complaints of fever or chills. Still nauseous. Patient is being continued on antibiotics in the form of Zosyn for colitis. No complaints of diarrhea. No episodes of vomiting. Laboratory data showed WBC 5.2 hemoglobin 8.5 and platelets 268 Sodium 134 potassium 4.0 chloride 107 bicarb is 16 BUN 20. Creatinine 3.04. Nephrology and ID is on board. 07/17/2022 Patient is lying in the bed. Awake alert and oriented 3.Of vomiting. Nausea is improving as well. No complaints of chest pain or shortness of breath. No diarrhea. Patient is being continued on antibiotics of Zosyn for colitis. ID and nephrology is on board. Renal function is improving slowly. Patient is on IV iron Laboratory data showed WBC 2.7 hemoglobin 8.5 and platelets 239 Sodium 139 potassium 3.912 9 BUN 15 and creatinine 2.7. Patient is tolerating liquids. No episodes of diarrhea. 07/18/2022 Patient is currently resting. Symptomatically improved. Able to tolerate liquids and will be advanced to low-fat diet. No ulcers or diarrhea. No nausea vomiting. No chest pain or shortness of breath. No cough or sputum production. No leg swelling. Patient is being currently IV hydration. Renal function improved with creatinine level II.4 today. Other laboratory data showed WBC 5.1 hemoglobin 9.4 and platelets 251 Patient is currently on Zosyn for diverticulitis and failed outpatient therapy. Patient was started on Norvasc due to elevated blood pressure. Current medications reviewed. Objective - Vital Signs Vital signs: Vital Signs Temp 97.6 F 07/18/22 20:17 Pulse 67 07/18/22 20:17 Resp 16 07/18/22 20:17 BP 135/79 07/18/22 20:17 Pulse Ox 100 07/18/22 20:17 FiO2 Intake & Output 07/18/22 07/18/22 07/19/22 06:59 18:59 06:59 Intake Total 1630 1380 Balance 1630 1380 Weight 89.811 kg Intake: Intake, IV Titration 800 800 Amount Piperacillin-Tazobactam 3 200 200 .375 gm In Sodium Chloride 0.9% 100 ml @ 25 mls/hr IVPB Q8H [facility] Rx#: [id number] Sodium Chloride 0.9% 1, 600 600 000 ml @ 50 mls/hr IV . Q20H [facility] Rx#:[id number] Oral 830 580 Other: Voiding Method Toilet Toilet # Voids 3 - Exam PHYSICAL EXAMINATION: Patient is lying in the bed comfortably, no acute distress, awake alert and oriented.. HEENT: Normocephalic. Neck is supple. Pupils reactive. Nostrils clear. Oral cavity is moist. Neck reveals no JVD, carotid bruits, or thyromegaly. CHEST EXAMINATION: Trachea is central. Symmetrical expansion. Lung acevedo clear to auscultation and percussion. CARDIAC: Normal S1, S2 with no gallops. No murmurs ABDOMEN: Soft. Bowel sounds normal. No organomegaly. No abdominal bruits. Extremities: reveal no edema. No clubbing or cyanosis Neurologically awake, alert, oriented x3 with well-coordinated movements. No focal deficits noted Skin: No rash or skin lesions. Psychiatric: Coperative. Nonsuicidal Musculoskeletal: No joint swelling or deformity. Normal range of motion. - Labs CBC & Chem 7: 07/18/22 07:02 07/19/22 03:52 Labs: Abnormal Lab Results - Last 24 Hours (Table) 07/18/22 07/18/22 Range/Units 07:02 07:02 RBC 2.99 L (4.40-5.60) X 10*6/uL Hgb 9.4 L (13.0-17.0) g/dL Hct 30.1 L (39.6-50.0) % MCV 100.7 H (80.0-97.0) fL MCHC 31.2 L (32.0-37.0) g/dL RDW 18.6 H (11.5-14.5) % Absolute Nucleated RBC 0.03 H (0.00-0.00) X 10*3/uL Lymphocytes # 0.15 L (0.90-5.00) X 10*3/uL Monocytes # 0.07 L (0.20-1.00) X 10*3/uL Eosinophils # 0 L (0.04-0.35) X 10*3/uL NRBC/100 WBC Diff 0.6 H (0.0-0.0) /100 WBCS Carbon Dioxide 19.5 L (20.0-27.5) mmol/L Creatinine 2.4 H (0.6-1.5) mg/dL Est GFR (CKD-EPI)AfAm 31.0 L (60.0-200.0) Est GFR (CKD-EPI)NonAf 26.7 L (60.0-200.0) BUN/Creatinine Ratio 6.50 L (12.00-20.00) Ratio Glucose 139 H (70-110) mg/dL Calcium 7.7 L (8.7-10.3) mg/dL Microbiology - Last 24 Hours (Table) 07/14/22 20:05 Blood Culture - Preliminary Blood No Growth after 96 hours 07/14/22 20:00 Blood Culture - Preliminary Blood No Growth after 96 hours 09/27/22 15:45 Stool Culture - Final Stool Assessment and Plan Assessment: Acute sigmoid diverticulitis slightly worse from last admission and status post antibiotic course. Failed outpatient therapy.. Intractable nausea vomiting and diarrhea and abdominal discomfort Acute kidney injury likely prerenal secondary to nausea vomiting and diarrhea. Creatinine 3.2 on admission. Baseline creatinine was 1.6 Hypovolemic hyponatremia Metabolic acidosis secondary to acute kidney injury Multiple myeloma currently undergoing chemotherapy Anemia of chronic disease due to CKD and Underlying malignancy. Iron deficiency anemia Hypomagnesemia. Replaced. GI and DVT prophylaxis Plan: Patient be continued on IV hydration with normal saline. Patient is tolerating oral liquids and advance to low-fat diet. Continue with IV antibiotics Zosyn and stool for C. diff toxin was sent due to diarrhea. Continue with symptomatic management for nausea and vomiting. Follow-up renal function and continue with home medications. Avoid nephrotoxins. Oncology nephrology and ID is on board. Time with Patient: Greater than 30
--- NOTE | 2022-07-20 11:29 | P.PN ---
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 Patient received chemotherapy and after reaching home and took the antibiotics. Patient started having nausea and episodes of vomiting nonbilious and unable to keep down food. No blood in the vomit. Patient has been having dry heaves and no complaints of significant abdominal pain. Patient also had several episodes of watery diarrhea since starting the antibiotic last week. Presents ER for further evaluation. Patient was recently admitted to hospital for diverticulitis and is on antibiotics. Denied any complaints of headache or dizziness. No cough or sputum production. No numbness or tingling. Patient was febrile on admission with T-max 100.3 and pulse ox 99% on room air. Patient was tachycardic on admission. Chest x-ray showed normal chest. No change. CT of abdomen pelvis showed changes consistent with diverticulitis of the pro ximal sigmoid colon with fat stranding and some fluid in the left paracolic. Fluid slightly increased compared to last exam. No drainable fluid collection. Next and EKG showed sinus tachycardia Laboratory data show WBC 8.9 hemoglobin 11.1 and platelets 403 Surgical wound that her potassium 3.9 chloride 1-2 bicarb is 17 BUN 26 and creatinine 3.06 and lactic acid 4.2 on admission Larios virus PCR and influenza AB-. 07/16/2022 Patient is currently lying in the bed. Awake alert and oriented 3. Abdominal pain is improved. No complaints of fever or chills. Still nauseous. Patient is being continued on antibiotics in the form of Zosyn for colitis. No complaints of diarrhea. No episodes of vomiting. Laboratory data showed WBC 5.2 hemoglobin 8.5 and platelets 268 Sodium 134 potassium 4.0 chloride 107 bicarb is 16 BUN 20. Creatinine 3.04. Nephrology and ID is on board. 07/17/2022 Patient is lying in the bed. Awake alert and oriented 3.Of vomiting. Nausea is improving as well. No complaints of chest pain or shortness of breath. No diarrhea. Patient is being continued on antibiotics of Zosyn for colitis. ID and nephrology is on board. Renal function is improving slowly. Patient is on IV iron Laboratory data showed WBC 2.7 hemoglobin 8.5 and platelets 239 Sodium 139 potassium 3.912 9 BUN 15 and creatinine 2.7. Patient is tolerating liquids. No episodes of diarrhea. 07/18/2022 Patient is currently resting. Symptomatically improved. Able to tolerate liquids and will be advanced to low-fat diet. No ulcers or diarrhea. No nausea vomiting. No chest pain or shortness of breath. No cough or sputum production. No leg swelling. Patient is being currently IV hydration. Renal function improved with creatinine level II.4 today. Other laboratory data showed WBC 5.1 hemoglobin 9.4 and platelets 251 Patient is currently on Zosyn for diverticulitis and failed outpatient therapy. Patient was started on Norvasc due to elevated blood pressure. 07/19/2022 Patient is lying in the bed. Awake alert and oriented 3. Tolerating oral diet. No complaints of chest pain or shortness of breath. No nausea vomiting abdominal pain or diarrhea. Currently on low-fat diet. Renal function improved with creatinine level II.3 today. Continued on IV antibiotics Zosyn. Ant icipate discharge with ID final recommendations. Patient has been afebrile. Current medications reviewed. Objective - Vital Signs Vital signs: Vital Signs Temp 97.7 F 07/19/22 19:04 Pulse 62 07/19/22 19:04 Resp 15 07/19/22 19:04 BP 156/84 07/19/22 19:04 Pulse Ox 100 07/19/22 19:04 FiO2 Intake & Output 07/19/22 07/19/22 07/20/22 06:59 18:59 06:59 Intake Total 500 Balance 500 Intake: Intake, IV Titration 500 Amount Sodium Chloride 0.9% 1, 500 000 ml @ 50 mls/hr IV . Q20H [facility] Rx#:[id number] Other: Voiding Method Toilet Toilet Toilet Urinal # Voids 2 - Exam PHYSICAL EXAMINATION: Patient is lying in the bed comfortably, no acute distress, awake alert and oriented.. HEENT: Normocephalic. Neck is supple. Pupils reactive. Nostrils clear. Oral cavity is moist. Neck reveals no JVD, carotid bruits, or thyromegaly. CHEST EXAMINATION: Trachea is central. Symmetrical expansion. Lung acevedo clear to auscultation and percussion. CARDIAC: Normal S1, S2 with no gallops. No murmurs ABDOMEN: Soft. Bowel sounds normal. No organomegaly. No abdominal bruits. Extremities: reveal no edema. No clubbing or cyanosis Neurologically awake, alert, oriented x3 with well-coordinated movements. No focal deficits noted Skin: No rash or skin lesions. Psychiatric: Coperative. Nonsuicidal Musculoskeletal: No joint swelling or deformity. Normal range of motion. - Labs CBC & Chem 7: 07/18/22 07:02 07/19/22 03:52 Labs: Abnormal Lab Results - Last 24 Hours (Table) 07/19/22 Range/Units 03:52 Chloride 112 H (96-109) mmol/L Carbon Dioxide 19.6 L (20.0-27.5) mmol/L Creatinine 2.3 H (0.6-1.5) mg/dL Est GFR (CKD-EPI)AfAm 32.6 L (60.0-200.0) Est GFR (CKD-EPI)NonAf 28.1 L (60.0-200.0) BUN/Creatinine Ratio 9.26 L (12.00-20.00) Ratio Glucose 156 H (70-110) mg/dL Calcium 7.4 L (8.7-10.3) mg/dL Microbiology - Last 24 Hours (Table) 07/14/22 20:00 Blood Culture - Preliminary Blood No Growth after 120 hours 07/14/22 20:05 Blood Culture - Preliminary Blood No Growth after 120 hours 07/15/22 15:45 Stool Culture - Final Stool Assessment and Plan Assessment: Acute sigmoid diverticulitis slightly worse from last admission and status post antibiotic course. Failed outpatient therapy.. Intractable nausea vomiting and diarrhea and abdominal discomfort Acute kidney injury likely prerenal secondary to nausea vomiting and diarrhea. Creatinine 3.2 on admission. Baseline creatinine was 1.6 Hypovolemic hyponatremia Metabolic acidosis secondary to acute kidney injury Multiple myeloma currently undergoing chemotherapy Anemia of chronic disease due to CKD and Underlying malignancy. Iron deficiency anemia Hypomagnesemia. Replaced. GI and DVT prophylaxis Plan: Patient be continued on IV hydration with normal saline. Patient is tolerating oral liquids and advance to low-fat diet. Continue with IV antibiotics Zosyn and stool for C. diff toxin was sent due to diarrhea. Continue with symptomatic management for nausea and vomiting. Follow-up renal function and continue with home medications. Avoid nephrotoxins. Oncology nephrology and ID is on board. Time with Patient: Greater than 30
[2022-07-20 12:04] VITALS: BP 155/78; PULSE 69; RESP 17; TEMP 97.5
[2022-07-22] MEDS ORDERED: dexAMETHasone 4 MG TAB PO SCH (17:27)
--- NOTE | 2022-07-24 21:58 | P.PN ---
Subjective Progress Note Date: 07/20/22 patient denies any new complaints. He is tolerating his diet. He has not had any recurrence of abdominal pain, or diarrhea. No fever/chills/nausea/vomiting Objective - Vital Signs Vital signs: Vital Signs Temp 97.5 F L 07/20/22 11:30 Pulse 69 07/20/22 11:30 Resp 17 07/20/22 11:30 BP 155/78 07/20/22 11:30 Pulse Ox 100 07/20/22 11:30 FiO2 - Constitutional General appearance: Present: no acute distress - EENT Eyes: Present: EOMI ENT: Present: hearing grossly normal, normal oropharynx - Respiratory Respiratory: bilateral: CTA - Cardiovascular Rhythm: regular Heart sounds: normal: S1, S2 - Gastrointestinal General gastrointestinal: Present: normal bowel sounds, soft - Integumentary Integumentary: Present: normal - Neurologic Neurologic: Present: CNII-XII intact - Musculoskeletal Musculoskeletal: Present: strength equal bilaterally - Psychiatric Psychiatric: Present: A&O x's 3 - Labs CBC & Chem 7: 07/18/22 07:02 07/19/22 03:52 Assessment and Plan (1) Diverticulitis Narrative/Plan: the patient is tolerating his diet well, but 20 minutes with no abdominal pains or diarrhea. The abdominal exam is also quite benign. 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
== END 2022-07-20 16:40 | disposition home or self-care (01) | DRG 872 ==
LOC: EC 19:56 → 5NMEDONC 21:17
PROVIDERS: ADMIT Hospitalist; ATTEND Hospitalist
DX: A41.9 Sepsis, unspecified organism (principal); K57.32 Diverticulitis of large intestine without perforation or abscess without bleeding; N17.9 Acute kidney failure, unspecified; C90.00 Multiple myeloma not having achieved remission; E87.1 Hypo-osmolality and hyponatremia; E87.20 Acidosis, unspecified; L02.419 Cutaneous abscess of limb, unspecified; N18.4 Chronic kidney disease, stage 4 (severe); Z94.84 Stem cells transplant status; T45.1X5A Adverse effect of antineoplastic and immunosuppressive drugs, initial encounter; G62.0 Drug-induced polyneuropathy; Z87.891 Personal history of nicotine dependence; D50.9 Iron deficiency anemia, unspecified; D63.1 Anemia in chronic kidney disease; D64.81 Anemia due to antineoplastic chemotherapy; E78.5 Hyperlipidemia, unspecified; E83.42 Hypomagnesemia; E86.0 Dehydration; E86.1 Hypovolemia; I25.10 Atherosclerotic heart disease of native coronary artery without angina pectoris; K52.9 Noninfective gastroenteritis and colitis, unspecified; K80.20 Calculus of gallbladder without cholecystitis without obstruction; Z79.01 Long term (current) use of anticoagulants; Z79.82 Long term (current) use of aspirin; Z86.711 Personal history of pulmonary embolism; Z87.81 Personal history of (healed) traumatic fracture; Z86.19 Personal history of other infectious and parasitic diseases; Z92.21 Personal history of antineoplastic chemotherapy; Z87.19 Personal history of other diseases of the digestive system; Z86.11 Personal history of tuberculosis; M54.50 Low back pain, unspecified
CPT/HCPCS: 36415; 71045; 74176; 80048; 80053; 81001; 82040; 82728; 83540; 83550; 83605; 83630; 83690; 83735; 84100; 84484; 85025; 85610; 87040; 87045; 87046; 87502; 87635; 93005; 96361; 96365; 96366; 96375; 96376; 99285

== ENCOUNTER → 2022-11-11 | Outpatient (CLI) | payer MEDICARE, BC ==
[2022-11-11 18:25] LABS: HCT 31.1 % (39.6-50.0); HGB 9.6 g/dL (13.0-17.0); MCH 31.5 pg (27.0-32.0); MCHC 30.9 g/dL (32.0-37.0); Mean Platelet Volume 11.4 fL (9.5-12.2); NRBC Per 100 WBC 1.6 /100 WBCS (0.0-0.0); Platelet Count 154 X 10*3/uL (140-440); RBC 3.05 X 10*6/uL (4.40-5.60); RDW 17.3 % (11.5-14.5); WBC 5.61 X 10*3/uL (4.50-10.00)
[2022-11-11 19:32] LABS: % Iron Saturation 27.46 (15.00-50.00); African American GFR (CKD) 27.9 (60.0-200.0); Albumin 3.7 g/dL (3.8-4.9); Albumin/Globulin Ratio 1.26 (1.60-3.17); Anion Gap 16.8 mmol/L (10.00-18.00); BUN/Creat Ratio 24.16 Ratio (12.00-20.00); Blood Urea Nitrogen 63.3 mg/dL (9.0-27.0); Calcium 9.6 mg/dL (8.7-10.3); Carbon Dioxide 18.1 mmol/L (20.0-27.5); Globulin 2.9 g/dL (1.6-3.3); Magnesium 2.2 mg/dL (1.5-2.4); Phosphorus 4.2 mg/dL (2.4-5.1); Potassium 4.9 mmol/L (3.5-5.5); Total Bilirubin 0.3 mg/dL (0.30-1.20); Total Protein 6.6 g/dL (6.2-8.2); Uric Acid 7.6 mg/dL (3.7-8.7)
[2022-11-11 20:09] LABS: Urine Creatinine 79.4 mg/dL (39.0-259.0)
== END | disposition home or self-care (01) ==
LOC: LABWHC1 11:47
PROVIDERS: ATTEND Nurse Practitioner Family
DX: E55.9 Vitamin D deficiency, unspecified (principal); D64.9 Anemia, unspecified; N39.0 Urinary tract infection, site not specified; M10.9 Gout, unspecified; N25.81 Secondary hyperparathyroidism of renal origin; N17.9 Acute kidney failure, unspecified; R80.9 Proteinuria, unspecified
CPT/HCPCS: 36415; 80053; 82043; 82306; 82570; 83540; 83550; 83735; 83970; 84100; 84550; 85027

== ENCOUNTER 2022-12-29 09:22 | Inpatient (IN) | payer MEDICARE, BC ==
[2022-12-29] MEDS ORDERED: SODIUM CHLORIDE 0.9% 1,000 ML IV ONE ×2 (09:35→11:00)
[2022-12-29] MEDS ORDERED: levETIRAcetam IV 2,000 MG in SODIUM CHLORIDE 0.9% 250 ML IVPB ONE (09:38)
[2022-12-29 09:59] LABS: Anisocytosis Slight; Basophils % (A) 0 %; Eosinophils # (A) 0.1 k/uL (0-0.7); Eosinophils % (A) 1 %; HCT 34.2 % (39.0-53.0); HGB 10.8 gm/dL (13.0-17.5); Hypochromasia Slight; Lymphocytes # (A) 1.2 k/uL (1.0-4.8); Lymphocytes % (A) 12 %; MCH 30.8 pg (25.0-35.0); MCHC 31.7 g/dL (31.0-37.0); Macrocytosis Slight; Mean Platelet Volume 8.9; Monocytes # (A) 0.8 k/uL (0-1.0); Monocytes % (A) 8 %; Neutrophils # (A) 8.2 k/uL (1.3-7.7); Neutrophils % (A) 79 %; Platelet Count 168 k/uL (150-450); RBC 3.52 m/uL (4.30-5.90); RDW 17.5 % (11.5-15.5); WBC 10.4 k/uL (3.8-10.6)
--- NOTE | 2022-12-29 09:59 | CT ---
EXAMINATION TYPE: CT brain wo con CT DLP: 1777.1 mGycm, Automated exposure control for dose reduction was used. DATE OF EXAM: 12/29/2022 9:53 AM COMPARISON: CT brain 04/21/2022 CLINICAL INDICATION:Male, 67 years old with history of Altered mental status, TECHNIQUE: Brain: Multiple axial CT images of the brain were obtained without IV contrast. Coronal and sagittal reformats reviewed. FINDINGS: Brain: Extra-axial spaces: No abnormal extra-axial fluid collections. Ventricular system: Within normal limits Cerebral parenchyma: No acute intraparenchymal hemorrhage or mass effect. The rodriguez-white junction is well differentiated. Cerebellum: Unremarkable. Mass effect: No evidence of midline shift. Intracranial vasculature: unremarkable Soft tissues: Normal. Calvarium/osseous structures: No depressed skull fracture. Paranasal sinuses and mastoid air cells: Clear Visualized orbits: Bilateral aphakia IMPRESSION: No acute intracranial process or significant change from prior.
--- NOTE | 2022-12-29 10:00 | XR ---
EXAMINATION TYPE: XR chest 2V DATE OF EXAM: 12/29/2022 9:57 AM COMPARISON: Chest radiographs from 12/09/1943 TECHNIQUE: XR chest 2V Frontal and lateral views of the chest. CLINICAL INDICATION:Male, 67 years old with history of altered mental status; FINDINGS: Lungs/Pleura: Low lung volumes are present. There is no evidence of pleural effusion, focal consolida tion, or pneumothorax. Pulmonary vascularity: Unremarkable. Heart/mediastinum: Cardiomediastinal silhouette is unremarkable. Musculoskeletal: No acute osseous pathology. IMPRESSION: Low lung volumes without evidence for acute process.
[2022-12-29 10:14] LABS: African American GFR (CKD) 9 (>60 ml/min/1.73 sqM); Albumin 3.5 g/dL (3.5-5.0); Alcohol <10 mg/dL; Alkaline Phosphatase 56 U/L (38-126); Anion Gap 30 mmol/L; Blood Urea Nitrogen 98 mg/dL (9-20); Calcium 10.2 mg/dL (8.4-10.2); Chloride 106 mmol/L (98-107); Glucose 184 mg/dL (74-99); Non-African American GFR(CKD) 8 (>60 ml/min/1.73 sqM); Potassium 4.6 mmol/L (3.5-5.1); Sodium 143 mmol/L (137-145); Total Bilirubin 0.5 mg/dL (0.2-1.3); Total Protein 10.6 g/dL (6.3-8.2)
[2022-12-29 10:15] LABS: INR 1.1 (<1.2); Prothrombin Time 11.1 sec (9.0-12.0)
[2022-12-29] MEDS ORDERED: LORazepam 2 MG/ML INJ IV STA (10:18)
[2022-12-29 10:20] LABS: ALT 44 U/L (4-49); AST 50 U/L (17-59)
[2022-12-29 10:27] LABS: Carbon Dioxide 7 mmol/L (22-30)
[2022-12-29 10:28] LABS: Glucose,Whole Blood 201 mg/dL (70-110)
[2022-12-29 10:28] LABS: Partial Thromboplastin Time 18.6 sec (22.0-30.0)
[2022-12-29] MEDS ORDERED: SODIUM CHLORIDE 0.9% 1,000 ML IV STA (10:29)
[2022-12-29] MEDS ORDERED: NALOXONE 0.4 MG/ML 1 ML VIAL IV PRN (11:46)
[2022-12-29 12:05] LABS: Appearance,Urine Clear (Clear); Bilirubin,Urine Negative (Negative); Blood,Urine Trace (Negative); Color,Urine Light Yellow; Glucose,Urine (UA) Negative (Negative); Ketones,Urine Negative (Negative); Leukocyte Esterase,Urine Negative (Negative); Mucus,Urine Rare /hpf; Nitrite,Urine Negative (Negative); Protein,Urine 1+ (Negative); RBC,Urine 3 /hpf (0-5); Specific Gravity,Urine 1.016 (1.001-1.035); Squamous Epithelial Cell,Urine <1 /hpf (0-4); Urobilinogen,Urine <2.0 mg/dL (<2.0); WBC,Urine 1 /hpf (0-5)
[2022-12-29 12:06] LABS: ABG Base Excess -12.4 mmol/L; ABG HCO3 15 mmol/L (21-25); ABG Oxygen Saturation 99.5 % (94-97); ABG PCO2 34 mmHg (35-45); ABG PH 7.25 (7.35-7.45); ABG PO2 172 mmHg (83-108); ABG TCO2 16 mmol/L (19-24); Allen Test Performed? Yes
[2022-12-29 12:17] LABS: Amphetamine Screen,Urine Not Detected (NotDetected); Barbiturate Screen,Urine Not Detected (NotDetected); Benzodiazepines Screen,Urine Not Detected (NotDetected); Cocaine Screen,Urine Not Detected (NotDetected); Methadone Screen, Urine Not Detected (NotDetected); Opiate Screen,Urine Not Detected (NotDetected); Oxycodone Screen, Urine Detected (NotDetected); Phencyclidine Screen,Urine Not Detected (NotDetected); Tricyclic Antidepressant,Urine Not Detected (NotDetected); Urn Cannabinoid Scrn Not Detected (NotDetected)
[2022-12-29 12:50] LABS: Calcium 8.9 mg/dL (8.4-10.2); Potassium 4.2 mmol/L (3.5-5.1)
--- NOTE | 2022-12-29 13:28 | ED ---
General Adult HPI - General Chief complaint: Altered Mental Status Stated complaint: AMS Time Seen by Provider: 12/29/22 09:26 Source: family, EMS, RN notes reviewed, old records reviewed Mode of arrival: EMS Limitations: altered mental status - History of Present Illness Initial comments: Patient is a 67-year-old male with past medical history remarkable for multiple myeloma, cancer, prior PEs on Eliquis, who presents emergency department for new onset seizure. Family is at bedside. States he has never had a seizure before. It occurred this morning. Initially had head turning episode followed by general tonic-clonic movements that lasted less than a minute. Patient's last few days has been more tired it seems. He has been postictal since. Has a history of radiation but no current chemo for his multiple myeloma. No other acute complaints at this time. Presents for EMS for further evaluation. Patient remains to postictal, and is unable to provide any history. No recent falls or trauma to the head per family. - Related Data Home Medications Medication Instructions Recorded Confirmed Acyclovir [Zovirax] 400 mg PO BID 07/07/22 12/29/22 Gabapentin 300 mg PO TID 07/07/22 12/29/22 dexAMETHasone [Decadron] 20 mg PO DIRECTED 07/07/22 12/29/22 Apixaban [Eliquis] 2.5 mg PO BID 11/30/22 12/29/22 Calcium Carbonate [Calcium] 600 mg PO PC-SUPPER 11/30/22 12/29/22 Cholecalciferol [Vitamin D3 (25 25 mcg PO PC-SUPPER 11/30/22 12/29/22 Mcg = 1000 Iu)] Pomalyst 3mg Capsule 3 mg PO DIRECTED 11/30/22 12/29/22 Sodium Bicarbonate Tab 650 mg PO BID 11/30/22 12/29/22 oxyCODONE HCL [oxyCODONE HCL (IR)] 10 mg PO Q4H PRN 11/30/22 12/29/22 Allergies Allergy/AdvReac Type Severity Reaction Status Date / Time sulfamethoxazole Allergy Rash/Hives Verified 12/29/22 10:58 [From Bactrim] trimethoprim [From Bactrim] Allergy Rash/Hives Verified 12/29/22 10:58 Review of Systems ROS Statement: Those systems with pertinent positive or pertinent negative responses have been documented in the HPI. ROS Other: All systems not noted in ROS Statement are negative. 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, gait dysfunction-uses walker, bilateral pedal/ankle edema, PE 08/2019, chronic low back pain, past vertebral fractures, minimal CAD, shingelles twice, past R heel wound, elevated lipids in the past, History of Any Multi-Drug Resistant Organisms: None Reported Past Surgical History: Heart Catheterization, Orthopedic Surgery Additional Past Surgical History / Comment(s): excision of uvular lesion(benign) 2009, colonoscopy, dave knee arthroscopy, rt rotator cuff sx, moles removed from back(benign), bone marrow aspiration/bx, stem cell transplant 2015, Past Anesthesia/Blood Transfusion Reactions: No Reported Reaction Past Psychological History: No Psychological Hx Reported Smoking Status: Former smoker Past Alcohol Use History: None Reported Past Drug Use History: None Reported - Past Family History Father Family Medical History: Renal Disease, Vascular Disorder Additional Family Medical History / Comment(s): aaa. Father is . Mother Family Medical History: No Reported History Additional Family Medical History / Comment(s): mom is healthy General Exam - General Exam Comments Initial Comments: General: Patient appears postictal, tired. Currently snoring HEAD: Normal with no signs of head trauma. EYES: PERRLA, EOMI, conjunctiva normal, no discharge. Pupils are 3 mm and equ al bilaterally. ENT: Hearing grossly intact, normal oropharynx. RESPIRATORY: Clear breath sounds bilaterally. No wheezes, rales, or rhonchi. C/V: Tachycardia with a regular rhythm. S1 and S2 auscultated. Peripheral pulses 2+ and intact throughout. ABD: Abd is soft, nontender, nondistended EXT: Normal range of motion, no obvious deformity SKIN: No rashes or lesions observed on exposed skin. NEURO: No alert or oriented. GCS is approximately 10. Appears postictal. Limitations: altered mental status Course Vital Signs 12/29/22 12/29/22 12/29/22 09:28 10:53 11:57 Temperature 97.9 F Pulse Rate 112 H 129 H 102 H Respiratory 16 18 22 Rate Blood Pressure 159/119 178/114 170/106 O2 Sat by Pulse 96 100 97 Oximetry 12/29/22 12/29/22 13:00 15:00 Temperature Pulse Rate 100 69 Respiratory 22 17 Rate Blood Pressure 137/115 180/117 O2 Sat by Pulse 96 99 Oximetry Medical Decision Making - Medical Decision Making Was pt. sent in by a medical professional or institution (, PA, CUSTOMER CONTACT REPRESENTATIVE, urgent care, hospital, or penitentiary...) When possible be specific @ -No Did you speak to anyone other than the patient for history (EMS, parent, family, police, friend...)? What history was obtained from this source @ -Yes, patient's who provides most the history as well as EMS. Did you review nursing and triage notes (agree or disagree)? Why? @ -I reviewed and agree with nursing and triage notes Were old charts reviewed (outside hosp., previous admission, EMS record, old EKG, old radiological studies, urgent care reports/EKG's, penitentiary records)? Report findings @ -Yes, old charts reviewed from November 2022 Differential Diagnosis (chest pain, altered mental status, abdominal pain women, abdominal pain men, vaginal bleeding, weakness, fever, dyspnea, syncope, headache, dizziness, GI bleed, back pain, seizure, CVA, palpatations, mental health, musculoskeletal)? @ -Differential Seizure: Recurrent seizure disorder, febrile seizure, alcohol withdrawal, stimulants, meningitis, encephalitis, intercranial hemorrhage, intracranial tumor, stroke, eclampsia, thyrotoxicosis, hypocalcemia, hyponatremia, hypernatremia, hypomagnesemia, psychogenic, this is not meant to be an all-inclusive list. EKG interpreted by me (3pts min.). @ -As above X-rays interpreted by me (1pt min.). @ -Chest x-ray reveals no obvious cardio pulmonary process. CT interpreted by me (1pt min.). @ -CT brain without contrast reveals no obvious process, acute intracranial injury. U/S interpreted by me (1pt. min.). @ -None done What testing was considered but not performed or refused? (CT, X-rays, U/S, labs)? Why? @ -None What meds were considered but not given or refused? Why? @ -None Did you discuss the management of the patient with other professionals (professionals i.e. , PA, CUSTOMER CONTACT REPRESENTATIVE, lab, RT, psych nurse, manager social media, divorce lawyer, teacher, special officer, case management specialist)? Give summary @ -Yes, Dr. Kern who agreed to evaluate the patient. Dr. Peck agreed to admit the patient. Was smoking cessation discussed for >3mins.? @ -No Was critical care preformed (if so, how long)? @ -Yes, 35 minutes Were there social determinants of health that impacted care today? How? (Bere elessness, low income, unemployed, alcoholism, drug addiction, transportation, low edu. Level, literacy, decrease access to med. care, retirement, rehab)? @ -No Was there de-escalation of care discussed even if they declined (Discuss DNR or withdrawal of care, Hospice)? DNR status @ -No What co-morbidities impacted this encounter? (DM, HTN, Smoking, COPD, CAD, Cancer, CVA, ARF, Chemo, Hep., AIDS, mental health diagnosis, sleep apnea, morbid obesity)? @ -None Was patient admitted / discharged? Hospital course, mention meds given and route, prescriptions, significant lab abnormalities, going to OR and other pertinent info. @ -Based on the patient's presentation and physical exam, he presents for what appears to be new onset seizure. Has history of cancer. Is on blood thinners. Patient is postictal and cannot cooperate with a normal exam. He is protecting his airway. Vital signs within except for limits. Patient's is at bedside and she was in agreement with the plan for broad workup. This included CT imaging head. CT brain is unremarkable. Chest x-ray is unremarkable. Laboratory studies are remarkable for a lactic acidosis which is likely secondary to seizure at 12.0. Patient has a metabolic acidosis with an elevated anion gap likely secondary to lactic acidosis. Patient has a history of CK D and renal function appears worse than his normal baseline with creatinine of 6.71 and BUN of 98. This is all likely secondary to dehydration as well as acute seizure causing a lactic acidosis. Patient does have chronic pancytopenia, and appears hemoconcentrated as cell counts are elevated. While waiting for labs and imaging, patient had another seizure that lasted approximately 50 seconds. Was generalized tonic-clonic in nature after in itially fixed head position to the right. Patient was given Ativan. I had ordered IV fluids and IV Keppra earlier but due to the request to obtain immediate CT imaging is is delayed and he had not received either. Patient received multiple fluid bolus and started on maintenance fluids. Will be administered and then started on twice a day. We will watch laboratory studies. Seizure precautions were ordered. Pads were placed. Patient's seizure stopped with Ativan. I did the family. Patient will be admitted to the hospital for neurology evaluation. He remains postictal as well as sedated at this time from the Ativan. There were any agreement this plan.Dr. Peck accepted the patient and Dr. kern agreed to consult and the plan. Undiagnosed new problem with uncertain prognosis? @ -No Drug Therapy requiring intensive monitoring for toxicity (Heparin, Nitro, Insulin, Cardizem)? @ -No Were any procedures done? @ -No Diagnosis/symptom? @ -New-onset seizure Acute, or Chronic, or Acute on Chronic? @ -Acute Uncomplicated (without systemic symptoms) or Complicated (systemic symptoms)? @ -Complicated Side effects of treatment? @ -No Exacerbation, Progression, or Severe Exacerbation? @ -No Poses a threat to life or bodily function? How? (Chest pain, USA, NM, pneumonia, PE, COPD, DKA, ARF, appy, cholecystitis, CVA, Diverticulitis, Homicidal, Suicidal, threat to staff... and all critical care pts) @ -Yes, if they do not improve can result in significant morbidity and mortality. Diagnosis/symptom? @ -Elevated anion gap metabolic acidosis secondary to lactic acidosis from seizure activity Acute, or Chronic, or Acute on Chronic? @ -Acute Uncomplicated (without systemic symptoms) or Complicated (systemic symptoms)? @ -Uncomplicated Side effects of treatment? @ -none Exacerbation, Progression, or Severe Exacerbation] @ -no Poses a threat to life or bodily function? @ -Yes, untreated can result in significant morbidity and mortality. Diagnosis/symptom? @ -DUNCAN on CK D likely secondary to dehydration Acute, or Chronic, or Acute on Chronic? @ -Acute Uncomplicated (without systemic symptoms) or Complicated (systemic symptoms)? @ -Complicated Side effects of treatment? @ -none Exacerbation, Progression, or Severe Exacerbation] @ -no Poses a threat to life or bodily function? @ -Yes, untreated can result in significant morbidity and mortality. - Lab Data Result diagrams: 12/29/22 09:42 12/29/22 12:17 Lab Results 12/29/22 12/29/22 12/29/22 Range/Units 09:42 09:42 09:42 WBC 10.4 (3.8-10.6) k/uL RBC 3.52 L (4.30-5.90) m/uL Hgb 10.8 L (13.0-17.5) gm/dL Hct 34.2 L (39.0-53.0) % MCV 97.0 (80.0-100.0) fL MCH 30.8 (25.0-35.0) pg MCHC 31.7 (31.0-37.0) g/dL RDW 17.5 H (11.5-15.5) % Plt Count 168 (150-450) k/uL MPV 8.9 Neutrophils % 79 % Lymphocytes % 12 % Monocytes % 8 % Eosinophils % 1 % Basophils % 0 % Neutrophils # 8.2 H (1.3-7.7) k/uL Lymphocytes # 1.2 (1.0-4.8) k/uL Monocytes # 0.8 (0-1.0) k/uL Eosinophils # 0.1 (0-0.7) k/uL Basophils # 0.0 (0-0.2) k/uL Hypochromasia Slight Anisocytosis Slight Macrocytosis Slight PT 11.1 (9.0-12.0) sec INR 1.1 (<1.2) APTT 18.6 L (22.0-30.0) sec Sodium (137-145) mmol/L Potassium (3.5-5.1) mmol/L Chloride (98-107) mmol/L Carbon Dioxide (22-30) mmol/L Anion Gap mmol/L BUN (9-20) mg/dL Creatinine (0.66-1.25) mg/dL Est GFR (CKD-EPI)AfAm (>60 ml/min/1.73 sqM) Est GFR (CKD-EPI)NonAf (>60 ml/min/1.73 sqM) Glucose (74-99) mg/dL POC Glucose (mg/dL) (70-110) mg/dL POC Glu Well Reactivator Operator ID Lactic Ac Sepsis Rflx Plasma Lactic Acid Jeromy (0.7-2.0) mmol/L Calcium (8.4-10.2) mg/dL Total Bilirubin (0.2-1.3) mg/dL AST (17-59) U/L ALT (4-49) U/L Alkaline Phosphatase (38-126) U/L Ammonia (<30) umol/L Troponin I (0.000-0.034) ng/mL Total Protein (6.3-8.2) g/dL Albumin (3.5-5.0) g/dL Urine Color Urine Appearance (Clear) Urine pH (5.0-8.0) Ur Specific [place] (1.001-1.035) Urine Protein (Negative) Urine Glucose (UA) (Negative) Urine Ketones (Negative) Urine Blood (Negative) Urine Nitrite (Negative) Urine Bilirubin (Negative) Urine Urobilinogen (<2.0) mg/dL Ur Leukocyte Esterase (Negative) Urine RBC (0-5) /hpf Urine WBC (0-5) /hpf Ur Squamous Epith Cells (0-4) /hpf Urine Mucus (None) /hpf Urine Opiates Screen Not Detected (NotDetected) Ur Oxycodone Screen Detected H (NotDetected) Urine Methadone Screen Not Detected (NotDetected) Ur Propoxyphene Screen Not Detected (NotDetected) Ur Barbiturates Screen Not Detected (NotDetected) U Tricyclic Antidepress Not Detected (NotDetected) Ur Phencyclidine Scrn Not Detected (NotDetected) Ur Amphetamines Screen Not Detected (NotDetected) U Methamphetamines Scrn Not Detected (NotDetected) U Benzodiazepines Scrn Not Detected (NotDetected) Urine Cocaine Screen Not Detected (NotDetected) U Marijuana (THC) Screen Not Detected (NotDetected) Serum Alcohol mg/dL Influenza Type A (PCR) (Not Detectd) Influenza Type B (PCR) (Not Detectd) RSV (PCR) (Not Detectd) SARS-CoV-2 (PCR) (Not Detectd) 12/29/22 12/29/22 12/29/22 Range/Units 09:42 09:42 09:42 WBC (3.8-10.6) k/uL RBC (4.30-5.90) m/uL Hgb (13.0-17.5) gm/dL Hct (39.0-53.0) % MCV (80.0-100.0) fL MCH (25.0-35.0) pg MCHC (31.0-37.0) g/dL RDW (11.5-15.5) % Plt Count (150-450) k/uL MPV Neutrophils % % Lymphocytes % % Monocytes % % Eosinophils % % Basophils % % Neutrophils # (1.3-7.7) k/uL Lymphocytes # (1.0-4.8) k/uL Monocytes # (0-1.0) k/uL Eosinophils # (0-0.7) k/uL Basophils # (0-0.2) k/uL Hypochromasia Anisocytosis Macrocytosis PT (9.0-12.0) sec INR (<1.2) APTT (22.0-30.0) sec Sodium 143 (137-145) mmol/L Potassium 4.6 (3.5-5.1) mmol/L Chloride 106 (98-107) mmol/L Carbon Dioxide 7 L* (22-30) mmol/L Anion Gap 30 mmol/L BUN 98 H (9-20) mg/dL Creatinine 6.71 H (0.66-1.25) mg/dL Est GFR (CKD-EPI)AfAm 9 (>60 ml/min/1.73 sqM) Est GFR (CKD-EPI)NonAf 8 (>60 ml/min/1.73 sqM) Glucose 184 H (74-99) mg/dL POC Glucose (mg/dL) (70-110) mg/dL POC Glu Well Reactivator Operator ID Lactic Ac Sepsis Rflx Plasma Lactic Acid Jeromy (0.7-2.0) mmol/L Calcium 10.2 (8.4-10.2) mg/dL Total Bilirubin 0.5 (0.2-1.3) mg/dL AST 50 (17-59) U/L ALT 44 (4-49) U/L Alkaline Phosphatase 56 (38-126) U/L Ammonia (<30) umol/L Troponin I 0.012 (0.000-0.034) ng/mL Total Protein 10.6 H (6.3-8.2) g/dL Albumin 3.5 (3.5-5.0) g/dL Urine Color Light Yellow Urine Appearance Clear (Clear) Urine pH 6.0 (5.0-8.0) Ur Specific [place] 1.016 (1.001-1.035) Urine Protein 1+ H (Negative) Urine Glucose (UA) Negative (Negative) Urine Ketones Negative (Negative) Urine Blood Trace H (Negative) Urine Nitrite Negative (Negative) Urine Bilirubin Negative (Negative) Urine Urobilinogen <2.0 (<2.0) mg/dL Ur Leukocyte Esterase Negative (Negative) Urine RBC 3 (0-5) /hpf Urine WBC 1 (0-5) /hpf Ur Squamous Epith Cells <1 (0-4) /hpf Urine Mucus Rare H (None) /hpf Urine Opiates Screen (NotDetected) Ur Oxycodone Screen (NotDetected) Urine Methadone Screen (NotDetected) Ur Propoxyphene Screen (NotDetected) Ur Barbiturates Screen (NotDetected) U Tricyclic Antidepress (NotDetected) Ur Phencyclidine Scrn (NotDetected) Ur Amphetamines Screen (NotDetected) U Methamphetamines Scrn (NotDetected) U Benzodiazepines Scrn (NotDetected) Urine Cocaine Screen (NotDetected) U Marijuana (THC) Screen (NotDetected) Serum Alcohol <10 mg/dL Influenza Type A (PCR) (Not Detectd) Influenza Type B (PCR) (Not Detectd) RSV (PCR) (Not Detectd) SARS-CoV-2 (PCR) (Not Detectd) 12/29/22 12/29/22 12/29/22 Range/Units 09:42 09:42 10:26 WBC (3.8-10.6) k/uL RBC (4.30-5.90) m/uL Hgb (13.0-17.5) gm/dL Hct (39.0-53.0) % MCV (80.0-100.0) fL MCH (25.0-35.0) pg MCHC (31.0-37.0) g/dL RDW (11.5-15.5) % Plt Count (150-450) k/uL MPV Neutrophils % % Lymphocytes % % Monocytes % % Eosinophils % % Basophils % % Neutrophils # (1.3-7.7) k/uL Lymphocytes # (1.0-4.8) k/uL Monocytes # (0-1.0) k/uL Eosinophils # (0-0.7) k/uL Basophils # (0-0.2) k/uL Hypochromasia Anisocytosis Macrocytosis PT (9.0-12.0) sec INR (<1.2) APTT (22.0-30.0) sec Sodium (137-145) mmol/L Potassium (3.5-5.1) mmol/L Chloride (98-107) mmol/L Carbon Dioxide (22-30) mmol/L Anion Gap mmol/L BUN (9-20) mg/dL Creatinine (0.66-1.25) mg/dL Est GFR (CKD-EPI)AfAm (>60 ml/min/1.73 sqM) Est GFR (CKD-EPI)NonAf (>60 ml/min/1.73 sqM) Glucose (74-99) mg/dL POC Glucose (mg/dL) 201 H (70-110) mg/dL POC Glu Well Reactivator Operator ID Sandi Coleman Lactic Ac Sepsis Rflx Plasma Lactic Acid Jeromy 12.0 H* (0.7-2.0) mmol/L Calcium (8.4-10.2) mg/dL Total Bilirubin (0.2-1.3) mg/dL AST (17-59) U/L ALT (4-49) U/L Alkaline Phosphatase (38-126) U/L Ammonia 11 (<30) umol/L Troponin I (0.000-0.034) ng/mL Total Protein (6.3-8.2) g/dL Albumin (3.5-5.0) g/dL Urine Color Urine Appearance (Clear) Urine pH (5.0-8.0) Ur Specific [place] (1.001-1.035) Urine Protein (Negative) Urine Glucose (UA) (Negative) Urine Ketones (Negative) Urine Blood (Negative) Urine Nitrite (Negative) Urine Bilirubin (Negative) Urine Urobilinogen (<2.0) mg/dL Ur Leukocyte Esterase (Negative) Urine RBC (0-5) /hpf Urine WBC (0-5) /hpf Ur Squamous Epith Cells (0-4) /hpf Urine Mucus (None) /hpf Urine Opiates Screen (NotDetected) Ur Oxycodone Screen (NotDetected) Urine Methadone Screen (NotDetected) Ur Propoxyphene Screen (NotDetected) Ur Barbiturates Screen (NotDetected) U Tricyclic Antidepress (NotDetected) Ur Phencyclidine Scrn (NotDetected) Ur Amphetamines Screen (NotDetected) U Methamphetamines Scrn (NotDetected) U Benzodiazepines Scrn (NotDetected) Urine Cocaine Screen (NotDetected) U Marijuana (THC) Screen (NotDetected) Serum Alcohol mg/dL Influenza Type A (PCR) Not Detected (Not Detectd) Influenza Type B (PCR) Not Detected (Not Detectd) RSV (PCR) Not Detected (Not Detectd) SARS-CoV-2 (PCR) Not Detected (Not Detectd) 12/29/22 Range/Units 10:27 WBC (3.8-10.6) k/uL RBC (4.30-5.90) m/uL Hgb (13.0-17.5) gm/dL Hct (39.0-53.0) % MCV (80.0-100.0) fL MCH (25.0-35.0) pg MCHC (31.0-37.0) g/dL RDW (11.5-15.5) % Plt Count (150-450) k/uL MPV Neutrophils % % Lymphocytes % % Monocytes % % Eosinophils % % Basophils % % Neutrophils # (1.3-7.7) k/uL Lymphocytes # (1.0-4.8) k/uL Monocytes # (0-1.0) k/uL Eosinophils # (0-0.7) k/uL Basophils # (0-0.2) k/uL Hypochromasia Anisocytosis Macrocytosis PT (9.0-12.0) sec INR (<1.2) APTT (22.0-30.0) sec Sodium (137-145) mmol/L Potassium (3.5-5.1) mmol/L Chloride (98-107) mmol/L Carbon Dioxide (22-30) mmol/L Anion Gap mmol/L BUN (9-20) mg/dL Creatinine (0.66-1.25) mg/dL Est GFR (CKD-EPI)AfAm (>60 ml/min/1.73 sqM) Est GFR (CKD-EPI)NonAf (>60 ml/min/1.73 sqM) Glucose (74-99) mg/dL POC Glucose (mg/dL) (70-110) mg/dL POC Glu Well Reactivator Operator ID Lactic Ac Sepsis Rflx Y Plasma Lactic Acid Jeromy (0.7-2.0) mmol/L Calcium (8.4-10.2) mg/dL Total Bilirubin (0.2-1.3) mg/dL AST (17-59) U/L ALT (4-49) U/L Alkaline Phosphatase (38-126) U/L Ammonia (<30) umol/L Troponin I (0.000-0.034) ng/mL Total Protein (6.3-8.2) g/dL Albumin (3.5-5.0) g/dL Urine Color Urine Appearance (Clear) Urine pH (5.0-8.0) Ur Specific [place] (1.001-1.035) Urine Protein (Negative) Urine Glucose (UA) (Negative) Urine Ketones (Negative) Urine Blood (Negative) Urine Nitrite (Negative) Urine Bilirubin (Negative) Urine Urobilinogen (<2.0) mg/dL Ur Leukocyte Esterase (Negative) Urine RBC (0-5) /hpf Urine WBC (0-5) /hpf Ur Squamous Epith Cells (0-4) /hpf Urine Mucus (None) /hpf Urine Opiates Screen (NotDetected) Ur Oxycodone Screen (NotDetected) Urine Methadone Screen (NotDetected) Ur Propoxyphene Screen (NotDetected) Ur Barbiturates Screen (NotDetected) U Tricyclic Antidepress (NotDetected) Ur Phencyclidine Scrn (NotDetected) Ur Amphetamines Screen (NotDetected) U Methamphetamines Scrn (NotDetected) U Benzodiazepines Scrn (NotDetected) Urine Cocaine Screen (NotDetected) U Marijuana (THC) Screen (NotDetected) Serum Alcohol mg/dL Influenza Type A (PCR) (Not Detectd) Influenza Type B (PCR) (Not Detectd) RSV (PCR) (Not Detectd) SARS-CoV-2 (PCR) (Not Detectd) - EKG Data -: EKG Interpreted by Me EKG Comments: 12-lead Electrocardiogram Interpretation Note EKG was reviewed and interpreted by myself. 12-lead ECG performed at 1102 is interpreted by me as revealing sinus tachycardia at a rate of 122 beats per minute. Marshall is normal. MA interval is 175 ms, QRS duration is 101 ms, QTc is 497 ms.. There were no ST or T wave abnormalities to suggest myocardial ischemia or injury. R wave progression across the precordium was satisfactory. By my interpretation this EKG is non-diagnostic for acute ischemia. Critical Care Time Critical Care Time: Yes Total Critical Care Time: 35 Critical Care Time: Upon my evaluation, this patient had a high probability of imminent or life- threatening deterioration due to new-onset seizure, history of multiple myeloma, anion gap metabolic acidosis, dehydration, which required my direct attention, intervention, and personal management. I have personally provided 35 minutes of critical care time exclusive of time spent on separately billable procedures. Time includes review of laboratory data, radiology results, discussion with consultants, and monitoring for potential decompensation. Interventions were performed as documented in my note. Disposition Clinical Impression: New onset seizure, Acute kidney injury superimposed on CKD, Dehydration, Lactic acidosis, High anion gap metabolic acidosis Disposition: ADMITTED IP TO THIS HOSP Condition: Serious Time of Disposition: 11:30
[2022-12-29] MEDS ORDERED: METOPROLOL TARTRATE 5 MG/5 ML VIAL IVP STA (14:08)
[2022-12-29] MEDS: SODIUM BICARBONATE TAB 650 MG TAB PO SCH ×2 (15:12→22:08)
[2022-12-29] MEDS: GABAPENTIN 300 MG CAP PO SCH ×2 (15:16→22:15)
--- NOTE | 2022-12-29 15:41 | P.CNNES ---
History of Present Illness Consult date: 12/29/22 Requesting physician: Damion Trotter Reason for Consult: new onset seizure History of Present Illness: This is a 67-year-old gentleman with history of multiple myeloma, pulmonary embolism on eliquis who presented to the emergency department because of new onset seizure. Some of the history is obtained from the patient's was at bedside as well as the medical record (because of some language barrier from ). According to the today in the morning at home patient had head turning to the left then had the eye rolling back with generalized tonic clonic movement. She did not know duration but per ED notes they were notified lasted <1 minute. She denied that patient had history of seizure and is not on antiepileptic drugs. Per the ED team he has another seizure-like activity while in ED room. According to the the patient does not follow up with a neurologist as outpatient since was not given instructions. According to the the patient is a been feeling unwell the last 2 weeks and was taken to [facility] because the patient was having fevers and there was told he had aspiration pneumonia was given IV antibiotics. She feels patient has been having generalized weakness. she was notified by his oncologist that the patient needs in newer medication for his multiple myeloma and needs to go to [facility] for that. Note in familiar with the patient and I seen him last on 04/21/2022 in which the patient had encephalopathy of unknown etiology and his mentation has been wors ening he had MRI the brain which was negative for stroke. He had 2 EEGs which was negative for seizure. CSF was slightly elevated for 14 otherwise 1 nucleated cell. He had left facial twitching at that time as well as myoclonic jerks in both resolved. Patient was sent to [facility] for long-term EEG according to the he had at least 24-hour long-term EEG and [facility] in the ICU and was notified and no seizure in likely the altered mentation was due to an medication use. Please refer to our notes for further details Some other workup during his hospital visit consisted of So far the patient is afebrile White Blood cell is tempered 10.4K Initial carbon dioxide is 7, Plasma-Lyte acid and vein on initial presentation is 12, BUN is 98 creatinine is 6.71 glucose is 184. The calciums 10.2, AST and ALT is within normal limits. Ammonia is 11. Urine drug screen is positive for oxycodone SARS coV2 PCR, Influenza A/B and RSV is not detected. CT head is reported as no acute intracranial processes or significant change from prior. I personally reviewed CT and agree there is no acute or subacute ischemia. In the ED he was given 2mg Ativan and was given Keppra 2gm once. Review of Systems Review of system is limited but the per positive and negative as per HPI. 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, gait dysfunction-uses walker, bilateral pedal/ankle edema, PE 08/2019, chronic low back pain, past vertebral fractures, minimal CAD, shingelles twice, past R heel wound, elevated lipids in the past, History of Any Multi-Drug Resistant Organisms: None Reported Past Surgical History: Heart Catheterization, Orthopedic Surgery Additional Past Surgical History / Comment(s): excision of uvular lesion(benign) 2009, colonoscopy, dave knee arthroscopy, rt rotator cuff sx, moles removed from back(benign), bone marrow aspiration/bx, stem cell transplant 2015, Past Anesthesia/Blood Transfusion Reactions: No Reported Reaction Past Psychological History: No Psychological Hx Reported Smoking Status: Former smoker Past Alcohol Use History: None Reported Past Drug Use History: None Reported - Past Family History Father Family Medical History: Renal Disease, Vascular Disorder Additional Family Medical History / Comment(s): aaa. Father is . Mother Family Medical History: No Reported History Additional Family Medical History / Comment(s): mom is healthy Medications and Allergies Home Medications Medication Instructions Recorded Confirmed Type Acyclovir [Zovirax] 400 mg PO BID 07/07/22 12/29/22 History Gabapentin 300 mg PO TID 07/07/22 12/29/22 History dexAMETHasone [Decadron] 20 mg PO DIRECTED 07/07/22 12/29/22 History Apixaban [Eliquis] 2.5 mg PO BID 11/30/22 12/29/22 History Calcium Carbonate [Calcium] 600 mg PO PC-SUPPER 11/30/22 12/29/22 History Cholecalciferol [Vitamin D3 (25 25 mcg PO PC-SUPPER 11/30/22 12/29/22 History Mcg = 1000 Iu)] Pomalyst 3mg Capsule 3 mg PO DIRECTED 11/30/22 12/29/22 History Sodium Bicarbonate Tab 650 mg PO BID 11/30/22 12/29/22 History oxyCODONE HCL [oxyCODONE HCL (IR)] 10 mg PO Q4H PRN 11/30/22 12/29/22 History Allergies Allergy/AdvReac Type Severity Reaction Status Date / Time sulfamethoxazole Allergy Rash/Hives Verified 12/29/22 10:58 [From Bactrim] trimethoprim [From Bactrim] Allergy Rash/Hives Verified 12/29/22 10:58 Physical Examination - Vital Signs Vital Signs: Vital Signs Temp Pulse Resp BP Pulse Ox 12/29/22 15:00 69 17 180/117 99 12/29/22 13:00 100 22 137/115 96 12/29/22 11:57 102 H 22 170/106 97 12/29/22 10:53 129 H 18 178/114 100 12/29/22 09:28 97.9 F 112 H 16 159/119 96 Intake and Output 12/29/22 12/29/22 12/29/22 06:59 14:59 22:59 Other: Weight 92.986 kg GENERAL: The patient is lying in bed and does not appear acute distress. CHEST: The heart rate is regular rate rhythm. No edema in lowers. LUNG: Clear to auscultation bilaterally no wheezing noted throughout. Not in labored breathing. ABDOMEN/GI: Bowel sounds present in all 4 quadrants. No tenderness to palpation throughout. NEUROLOGICAL: Very limited since he was given 2mg Ativan and possibly post-ictal. Higher mental function: The patient is severely drowsy. Cranial nerves: I had manually open eyes. Primary gaze is midline. The pupils are round, equal and reactive to light. No facial weakness. Motor: The strength is no movement. Normal bulk. Decrease tone throughout. Cerebellum: Unable to assess. Sensation: Unable to assess light thouch. Reflexes (right/left): 1+ throughout. Plantars are mute bilaterally. Results - Laboratory Findings CBC and BMP: 12/29/22 09:42 12/29/22 12:17 Abnormal Lab Findings: Abnormal Labs 12/29/22 12/29/22 12/29/22 09:42 09:42 09:42 RBC 3.52 L Hgb 10.8 L Hct 34.2 L RDW 17.5 H Neutrophils # 8.2 H APTT 18.6 L ABG pH ABG pCO2 ABG pO2 ABG HCO3 ABG Total CO2 ABG O2 Saturation Chloride Carbon Dioxide BUN Creatinine Glucose POC Glucose (mg/dL) Plasma Lactic Acid Jeromy Total Protein Urine Protein Urine Blood Urine Mucus Ur Oxycodone Screen Detected H 12/29/22 12/29/22 12/29/22 09:42 09:42 09:42 RBC Hgb Hct RDW Neutrophils # APTT ABG pH ABG pCO2 ABG pO2 ABG HCO3 ABG Total CO2 ABG O2 Saturation Chloride Carbon Dioxide 7 L* BUN 98 H Creatinine 6.71 H Glucose 184 H POC Glucose (mg/dL) Plasma Lactic Acid Jeromy 12.0 H* Total Protein 10.6 H Urine Protein 1+ H Urine Blood Trace H Urine Mucus Rare H Ur Oxycodone Screen 12/29/22 12/29/22 12/29/22 10:26 12:01 12:17 RBC Hgb Hct RDW Neutrophils # APTT ABG pH 7.25 L ABG pCO2 34 L ABG pO2 172 H ABG HCO3 15 L ABG Total CO2 16 L ABG O2 Saturation 99.5 H Chloride 113 H Carbon Dioxide 14 L BUN 97 H Creatinine 5.48 H Glucose 152 H POC Glucose (mg/dL) 201 H Plasma Lactic Acid Jeromy Total Protein Urine Protein Urine Blood Urine Mucus Ur Oxycodone Screen 12/29/22 12/29/22 12:17 13:00 RBC Hgb Hct RDW Neutrophils # APTT ABG pH ABG pCO2 ABG pO2 ABG HCO3 ABG Total CO2 ABG O2 Saturation Chloride Carbon Dioxide BUN Creatinine Glucose POC Glucose (mg/dL) Plasma Lactic Acid Jeromy 4.3 H* 2.9 H* Total Protein Urine Protein Urine Blood Urine Mucus Ur Oxycodone Screen Assessment and Plan Assessment: New onset seizure (had two seizures one at home and one in ED. Lactic acidosis why hypocarpnia due to above Recent aspiration pneumonia about 2 weeks ago History of left facial twitching and myoclonic jerks---prior EEG were negative for seizure. As well prior MRI Brain was negative. History of multiple myeloma and has received chemotherapy and pending to receive different chemotherapy History of pulmonary embolism on eliquis History of T12 fracture with multiple vertebral fracture due to multiple myeloma History of coronary artery disease Dyslipidemia Plan: Patient was started on Keppra 1 gm every 12 hours by ED team. EEG and MRI Brain is ordered by primary team. On seizure precaution and pad. Oncology is consulted. Will defer the rest of medical management to primary team. The plan is discussed with patient's (who is at bedside) and son (via phone) as well primary team. Thank you for the consultation. Time with Patient: Greater than 30
--- NOTE | 2022-12-29 17:36 | P.HPIM ---
History of Present Illness H&P Date: 12/29/22 Chief Complaint: Seizure 59-year-old man with medical history multiple myeloma with bone metastases and pancytopenia, chronic kidney disease stage IIIB, history of pulmonary embolism on Apixiban presented for evaluation after witnessed seizure. Patient was recently discharged from [facility] after a seven-day hospital course for aspiration pneumonia, and was doing well at home per his who is at bedside and provides entirety of history. However, starting a couple days ago, patient started becoming more lethargic, today, patient had a witnessed seizure, and notes that patient did not appear to be breathing well on his own, so she initiated some chest compressions and rescue breaths. It is not clear whether patient truly lost his pulse or not, however, this first episode of seizure seemed to resolve while EMS was on the way, then patient had a second episode. Patient subsequently brought into the hospital to be evaluated and had a witnessed seizure in the emergency room as well. Patient could not provide any history and could not produce pain in review of systems due to mental status changes. In the emergency room, patient was afebrile, 159/119, heart rate 112, 96% on room air. CBC showed anemia to 10.8, platelets of 168, white blood cell count 10.4; patient is historically pancytopenic and so these were felt to represent hemoconcentrated labs. Initial basic metabolic panel demonstrated a bicarb of 7 with an anion gap of 30, BUN of 98, creatinine of 6.7, baseline creatinine is 2.5-3. Liver function tests demonstrated a total protein of 10.6. Troponin is 0.012. Lactic acid is 12. UA showed 1+ protein, trace blood, rare mucus. Urine tox screen is positive for oxycodone, otherwise remaining Alesse drugs were undetected. Alcohol level is less than 10. Influenza A, B, RSV, Covid were negative. Coags are unremarkable. Patient was given 2 L of normal saline boluses by the emergency room physician as well as started on 130 mL per hour of normal saline. He was given 2 g of Keppra as well as 4 g of Ativan for seizure-like activity that was witnessed in the emergency room. Arterial blood gas and repeat basic metabolic panel was completed, results showed pH of 7.25, pCO2 of 34, pO2 of 172. Basic metabolic panel results showed improvement of bicarb 14, anion gap improved to 16, creatinine improved to 5.48. CT of the head did not demonstrate any acute pathology. Chest x-ray did not demonstrate any acute pathology, but showed low lung volumes overall. EKG showed sinus tachycardia with left axis deviation, otherwise no evidence of ischemia. Lactic acid improved to 4.3 Case was discussed with our service and patient was admitted to the inpatient floor for further evaluation. Review of systems cannot be completed as above Gen: In moderate distress from dyspnea, abnormal breathing pattern with prolonged expiratory phase Eyes: PERRL, no scleral injection or icterus HENT: normocephalic, atraumatic, good hearing acuity, moist mucous membranes Neck: no tracheal deviation, full range of motion Resp: Coarse breath sounds throughout with rhonchi, no wheezing, diffuse crackles CVS: good distal perfusion x 4, no pitting edema GI: soft, NTTP, ND, no hepatosplenomegaly : no suprapubic tenderness, no CVAT, hernandez catheter not present MSK: no clubbing, no cyanosis, no noted contractures of extremities Skin: no noted rashes, petechiae; temperature of skin is appropriate Neuro: Did not withdraw to pain in the lower extremities, didn't withdraw to pain in the upper extremities CN II-XII intact Labs and imaging as above Assessment: New-onset seizure Metabolic encephalopathy Acute kidney injury superimposed on chronic kidney disease stage IIIB Lactic acidosis with high anion gap metabolic acidosis History multiple myeloma Pancytopenia History of pulmonary embolism Plan: Vital signs reviewed and noted in HPI Labs including CBC, chemistries, liver function tests, troponin, lactic acid, UA, coags, drug screen, urinalysis, alcohol level, respiratory viral panel were reviewed and noted in HPI EKG and chest x-ray were personally interpreted noted in HPI CT of the head was reviewed and noted in HPI Case was discussed with the emergency room physician and decision was made to admit the patient to the inpatient floor for new-onset seizure Case was discussed with the neurologist, who is in agreement with Keppra dosing, EEG, MRI I place orders for EEG I place orders for MRI of the brain with and without contrast I agree with Keppra 1000 mg every 12 hours Continue IV fluids at 130 mL per hour normal saline CBC, basic metabolic panel, magnesium ordered for tomorrow Oncology was consulted I will add on Procalcitonin I consulted palliative care Patient is full code DVT prophylaxis is covered with home Apixiban dosing 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, gait dysfunction-uses walker, bilateral pedal/ankle edema, PE 08/2019, chronic low back pain, past vertebral fractures, minimal CAD, shingelles twice, past R heel wound, elevated lipids in the past, History of Any Multi-Drug Resistant Organisms: None Reported Past Surgical History: Heart Catheterization, Orthopedic Surgery Additional Past Surgical History / Comment(s): excision of uvular lesion(benign) 2009, colonoscopy, dave knee arthroscopy, rt rotator cuff sx, moles removed from back(benign), bone marrow aspiration/bx, stem cell transplant 2015, Past Anesthesia/Blood Transfusion Reactions: No Reported Reaction Past Psychological History: No Psychological Hx Reported Smoking Status: Former smoker Past Alcohol Use History: None Reported Past Drug Use History: None Reported - Past Family History Father Family Medical History: Renal Disease, Vascular Disorder Additional Family Medical History / Comment(s): aaa. Father is . Mother Family Medical History: No Reported History Additional Family Medical History / Comment(s): mom is healthy Medications and Allergies Home Medications Medication Instructions Recorded Confirmed Type Acyclovir [Zovirax] 400 mg PO BID 07/07/22 12/29/22 History Gabapentin 300 mg PO TID 07/07/22 12/29/22 History dexAMETHasone [Decadron] 20 mg PO DIRECTED 07/07/22 12/29/22 History Apixaban [Eliquis] 2.5 mg PO BID 11/30/22 12/29/22 History Calcium Carbonate [Calcium] 600 mg PO PC-SUPPER 11/30/22 12/29/22 History Cholecalciferol [Vitamin D3 (25 25 mcg PO PC-SUPPER 11/30/22 12/29/22 History Mcg = 1000 Iu)] Pomalyst 3mg Capsule 3 mg PO DIRECTED 11/30/22 12/29/22 History Sodium Bicarbonate Tab 650 mg PO BID 11/30/22 12/29/22 History oxyCODONE HCL [oxyCODONE HCL (IR)] 10 mg PO Q4H PRN 11/30/22 12/29/22 History Allergies Allergy/AdvReac Type Severity Reaction Status Date / Time sulfamethoxazole Allergy Rash/Hives Verified 12/29/22 10:58 [From Bactrim] trimethoprim [From Bactrim] Allergy Rash/Hives Verified 12/29/22 10:58 Physical Exam Osteopathic Statement: *. No significant issues noted on an osteopathic structural exam other than those noted in the History and Physical/Consult. Vitals: Vital Signs Temp Pulse Resp BP Pulse Ox 12/29/22 16:00 72 17 178/118 100 12/29/22 15:00 69 17 180/117 99 12/29/22 13:00 100 22 137/115 96 12/29/22 11:57 102 H 22 170/106 97 12/29/22 10:53 129 H 18 178/114 100 12/29/22 09:28 97.9 F 112 H 16 159/119 96 Intake and Output 12/29/22 12/29/22 12/29/22 06:59 14:59 22:59 Other: Weight 92.986 kg Results CBC & Chem 7: 12/29/22 09:42 12/29/22 12:17 Labs: Abnormal Lab Results - Last 24 Hours (Table) 12/29/22 12/29/22 12/29/22 Range/Units 09:42 09:42 09:42 RBC 3.52 L (4.30-5.90) m/uL Hgb 10.8 L (13.0-17.5) gm/dL Hct 34.2 L (39.0-53.0) % RDW 17.5 H (11.5-15.5) % Neutrophils # 8.2 H (1.3-7.7) k/uL APTT 18.6 L (22.0-30.0) sec ABG pH (7.35-7.45) ABG pCO2 (35-45) mmHg ABG pO2 (83-108) mmHg ABG HCO3 (21-25) mmol/L ABG Total CO2 (19-24) mmol/L ABG O2 Saturation (94-97) % Chloride (98-107) mmol/L Carbon Dioxide (22-30) mmol/L BUN (9-20) mg/dL Creatinine (0.66-1.25) mg/dL Glucose (74-99) mg/dL POC Glucose (mg/dL) (70-110) mg/dL Plasma Lactic Acid Jeromy (0.7-2.0) mmol/L Total Protein (6.3-8.2) g/dL Urine Protein (Negative) Urine Blood (Negative) Urine Mucus (None) /hpf Ur Oxycodone Screen Detected H (NotDetected) 12/29/22 12/29/22 12/29/22 Range/Units 09:42 09:42 09:42 RBC (4.30-5.90) m/uL Hgb (13.0-17.5) gm/dL Hct (39.0-53.0) % RDW (11.5-15.5) % Neutrophils # (1.3-7.7) k/uL APTT (22.0-30.0) sec ABG pH (7.35-7.45) ABG pCO2 (35-45) mmHg ABG pO2 (83-108) mmHg ABG HCO3 (21-25) mmol/L ABG Total CO2 (19-24) mmol/L ABG O2 Saturation (94-97) % Chloride (98-107) mmol/L Carbon Dioxide 7 L* (22-30) mmol/L BUN 98 H (9-20) mg/dL Creatinine 6.71 H (0.66-1.25) mg/dL Glucose 184 H (74-99) mg/dL POC Glucose (mg/dL) (70-110) mg/dL Plasma Lactic Acid Jeromy 12.0 H* (0.7-2.0) mmol/L Total Protein 10.6 H (6.3-8.2) g/dL Urine Protein 1+ H (Negative) Urine Blood Trace H (Negative) Urine Mucus Rare H (None) /hpf Ur Oxycodone Screen (NotDetected) 12/29/22 12/29/22 12/29/22 Range/Units 10:26 12:01 12:17 RBC (4.30-5.90) m/uL Hgb (13.0-17.5) gm/dL Hct (39.0-53.0) % RDW (11.5-15.5) % Neutrophils # (1.3-7.7) k/uL APTT (22.0-30.0) sec ABG pH 7.25 L (7.35-7.45) ABG pCO2 34 L (35-45) mmHg ABG pO2 172 H (83-108) mmHg ABG HCO3 15 L (21-25) mmol/L ABG Total CO2 16 L (19-24) mmol/L ABG O2 Saturation 99.5 H (94-97) % Chloride 113 H (98-107) mmol/L Carbon Dioxide 14 L (22-30) mmol/L BUN 97 H (9-20) mg/dL Creatinine 5.48 H (0.66-1.25) mg/dL Glucose 152 H (74-99) mg/dL POC Glucose (mg/dL) 201 H (70-110) mg/dL Plasma Lactic Acid Jeromy (0.7-2.0) mmol/L Total Protein (6.3-8.2) g/dL Urine Protein (Negative) Urine Blood (Negative) Urine Mucus (None) /hpf Ur Oxycodone Screen (NotDetected) 12/29/22 12/29/22 Range/Units 12:17 13:00 RBC (4.30-5.90) m/uL Hgb (13.0-17.5) gm/dL Hct (39.0-53.0) % RDW (11.5-15.5) % Neutrophils # (1.3-7.7) k/uL APTT (22.0-30.0) sec ABG pH (7.35-7.45) ABG pCO2 (35-45) mmHg ABG pO2 (83-108) mmHg ABG HCO3 (21-25) mmol/L ABG Total CO2 (19-24) mmol/L ABG O2 Saturation (94-97) % Chloride (98-107) mmol/L Carbon Dioxide (22-30) mmol/L BUN (9-20) mg/dL Creatinine (0.66-1.25) mg/dL Glucose (74-99) mg/dL POC Glucose (mg/dL) (70-110) mg/dL Plasma Lactic Acid Jeromy 4.3 H* 2.9 H* (0.7-2.0) mmol/L Total Protein (6.3-8.2) g/dL Urine Protein (Negative) Urine Blood (Negative) Urine Mucus (None) /hpf Ur Oxycodone Screen (NotDetected)
[2022-12-29] MEDS: CALCIUM CARB-VIT D 500 MG-5 MCG TAB PO SCH (19:08)
[2022-12-29] MEDS: CHOLECALCIFEROL 25 MCG (1000 IU) TABLET PO SCH (19:09)
[2022-12-29] MEDS: levETIRAcetam IV 1,000 MG in SALINE 1 100ML.BAG IVPB SCH (20:06)
--- NOTE | 2022-12-29 21:48 | EEG ---
ELECTROENCEPHALOGRAM REPORT CLINICAL HISTORY: This is a 67-year-old gentleman with 2 seizure-like episodes on 12/29/2022. The video EEG is obtained to evaluate for seizure epileptiform activity. RELEVANT MEDICATIONS: Ativan and Keppra. EEG TYPE: A routine 21-channel EEG is performed with video using the 10/20 electrode placement system. DESCRIPTION: The background consists of [id number] voltage of 0.5 to 1.5 hertz nonrhythmic delta activity throughout the study. There is no physiological stage 2 sleep architecture. There is no focal slowing. Interictal and ictal is none. ACTIVATION PROCEDURE: Photic stimulation did not evoke a posterior driving response. There is no abnormality during the photic stimulation. Hyperventilation is not performed. CLINICAL INTERPRETATION: This is an abnormal routine EEG. The background slowing is suggestive of severe encephalopathy. Otherwise, there is no focal slowing, epileptiform discharge, or seizure on the EEG. Clinical correlation is recommended. JOSSELYN / ELOY: [id number] /
[2022-12-29] MEDS: APIXABAN 2.5 MG TABLET PO SCH (22:08)
[2022-12-29] MEDS: ACYCLOVIR 200 MG CAP PO SCH (22:08)
[2022-12-30 06:42] LABS: Calcium 8.8 mg/dL (8.4-10.2); Magnesium 2.1 mg/dL (1.6-2.3); Potassium 4.5 mmol/L (3.5-5.1)
[2022-12-30 06:43] LABS: Anisocytosis Slight; Basophils % (A) 0 %; Eosinophils % (A) 0 %; HCT 26.7 % (39.0-53.0); Hypochromasia Slight; Lymphocytes # (A) 0.2 k/uL (1.0-4.8); Lymphocytes % (A) 4 %; MCH 31.5 pg (25.0-35.0); MCHC 32.4 g/dL (31.0-37.0); Macrocytosis Slight; Mean Platelet Volume 8.5; Monocytes # (A) 0.7 k/uL (0-1.0); Monocytes % (A) 12 %; Neutrophils # (A) 4.7 k/uL (1.3-7.7); Neutrophils % (A) 82 %; RBC 2.76 m/uL (4.30-5.90); RDW 17.6 % (11.5-15.5); WBC 5.7 k/uL (3.8-10.6)
[2022-12-30 06:48] LABS: HGB 8.7 gm/dL (13.0-17.5)
[2022-12-30 07:04] LABS: Platelet Count 87 k/uL (150-450); Polychromasia Present
[2022-12-30] MEDS ORDERED: GABAPENTIN 300 MG CAP PO PRN (10:03)
[2022-12-30] MEDS ORDERED: hydrALAZINE HCL 20 MG/ML 1 ML VIAL IVP PRN (10:13)
[2022-12-30] MEDS ORDERED: cloNIDine 0.1 MG/24HR PATCH TRANSDERM SCH (10:15)
--- NOTE | 2022-12-30 10:57 | P.PN ---
Subjective Progress Note Date: 12/30/22 Patient's mentation is significantly improved today. Pending MRI. Kidney function is improving. Gen: awake, alert HEENT: normocephalic, atraumatic, good hearing acuity, moist mucous membranes Resp: good air exchange, breathing comfortably with no accessory muscle use CVS: good distal perfusion x 4, GI: soft, NTTP, ND : no SPT, no CVAT, hernandez catheter is present MSK: no pitting edema, no clubbing Neuro: non-focal, moving all extremities Psych: cooperative, euthymic mood Hospital course: 59-year-old man with medical history multiple myeloma with bone metastases and pancytopenia, chronic kidney disease stage IIIB, history of pulmonary embolism on Apixiban presented for evaluation after witnessed seizure. In the emergency room, patient was afebrile, 159/119, heart rate 112, 96% on room air. CBC showed anemia to 10.8, platelets of 168, white blood cell count 10.4; patient is historically pancytopenic and so these were felt to represent hemoconcentrated labs. Initial basic metabolic panel demonstrated a bicarb of 7 with an anion gap of 30, BUN of 98, creatinine of 6.7, baseline creatinine is 2.5-3. Liver function tests demonstrated a total protein of 10.6. Troponin is 0.012. Lactic acid is 12. UA showed 1+ protein, trace blood, rare mucus. Urine tox screen is positive for oxycodone, otherwise remaining Alesse drugs were undetected. Alcohol level is less than 10. Influenza A, B, RSV, Covid were negative. Coags are unremarkable. Patient was given 2 L of normal saline boluses by the emergency room physician as well as started on 130 mL per hour of normal saline. He was given 2 g of Keppra as well as 4 g of Ativan for seizure-like activity that was witnessed in the emergency room. Arterial blood gas and repeat basic metabolic panel was completed, results showed pH of 7.25, pCO2 of 34, pO2 of 172. Basic metabolic panel results showed improvement of bicarb 14, anion gap improved to 16, creatinine improved to 5.48. CT of the head did not demonstrate any acute pathology. Chest x-ray did not demonstrate any acute pathology, but showed low lung volumes overall. EKG showed sinus tachycardia with left axis deviation, otherwise no evidence of ischemia. Lactic acid improved to 4.3 Case was discussed with our service and patient was admitted to the inpatient floor for further evaluation. Assessment: New-onset seizure Metabolic encephalopathy Acute kidney injury superimposed on chronic kidney disease stage IIIB Lactic acidosis with high anion gap metabolic acidosis History multiple myeloma Pancytopenia History of pulmonary embolism Plan: Today, patient is afebrile, 171/96, heart rate 81, 98% on 2 L nasal cannula CBC shows decrease in hemoglobin to 8.7 from 10.8, platelets are 87 today down from 168, white blood cell count is 5.7, down from 10.4. These labs are closer to his baseline. Chemistries show hypernatremia to 146, chloride of 118, CO2 of 16, anion gap of 12, BUN of 104, creatinine of 4.61, these are improved from admission. Magnesium was 2.1. EEG shows background slowing suggestive of severe encephalopathy, otherwise no focal slowing or epileptiform discharge Procalcitonin is 0.[address] orders for MRI of the brain with and without contrast Continue keppra 1000 mg every 12 hours Normal saline was replaced with D5W with bicarb at 80cc/hr Oncology was consulted, Nephrology was consulted I consulted palliative care Patient is full code DVT prophylaxis is covered with home Apixiban dosing Objective - Vital Signs Vital signs: Vital Signs Temp 98.4 F 12/29/22 23:37 Pulse 81 12/30/22 03:30 Resp 15 12/30/22 03:30 BP 171/96 12/30/22 03:30 Pulse Ox 98 12/30/22 03:30 FiO2 Intake & Output 12/29/22 12/30/22 12/30/22 18:59 06:59 18:59 Intake Total 0 180 Output Total 1100 104 Balance -1100 76 Weight 92.986 kg 88 kg Intake: Oral 0 180 Output: Urine 1100 Post Void Residual 104 Other: Voiding Method Indwelling Catheter External Catheter # Bowel Movements 1 - Labs CBC & Chem 7: 12/30/22 06:19 12/30/22 06:19 Labs: Abnormal Lab Results - Last 24 Hours (Table) 12/29/22 12/29/22 12/29/22 Range/Units 09:42 09:42 12:01 RBC (4.30-5.90) m/uL Hgb (13.0-17.5) gm/dL Hct (39.0-53.0) % RDW (11.5-15.5) % Plt Count (150-450) k/uL Lymphocytes # (1.0-4.8) k/uL ABG pH 7.25 L (7.35-7.45) ABG pCO2 34 L (35-45) mmHg ABG pO2 172 H (83-108) mmHg ABG HCO3 15 L (21-25) mmol/L ABG Total CO2 16 L (19-24) mmol/L ABG O2 Saturation 99.5 H (94-97) % Sodium (137-145) mmol/L Chloride (98-107) mmol/L Carbon Dioxide (22-30) mmol/L BUN (9-20) mg/dL Creatinine (0.66-1.25) mg/dL Glucose (74-99) mg/dL Plasma Lactic Acid Jeromy (0.7-2.0) mmol/L Procalcitonin (0.02-0.09) ng/mL Urine Protein 1+ H (Negative) Urine Blood Trace H (Negative) Urine Mucus Rare H (None) /hpf Ur Oxycodone Screen Detected H (NotDetected) 12/29/22 12/29/22 12/29/22 Range/Units 12:17 12:17 12:17 RBC (4.30-5.90) m/uL Hgb (13.0-17.5) gm/dL Hct (39.0-53.0) % RDW (11.5-15.5) % Plt Count (150-450) k/uL Lymphocytes # (1.0-4.8) k/uL ABG pH (7.35-7.45) ABG pCO2 (35-45) mmHg ABG pO2 (83-108) mmHg ABG HCO3 (21-25) mmol/L ABG Total CO2 (19-24) mmol/L ABG O2 Saturation (94-97) % Sodium (137-145) mmol/L Chloride 113 H (98-107) mmol/L Carbon Dioxide 14 L (22-30) mmol/L BUN 97 H (9-20) mg/dL Creatinine 5.48 H (0.66-1.25) mg/dL Glucose 152 H (74-99) mg/dL Plasma Lactic Acid Jeromy 4.3 H* (0.7-2.0) mmol/L Procalcitonin 0.18 H (0.02-0.09) ng/mL Urine Protein (Negative) Urine Blood (Negative) Urine Mucus (None) /hpf Ur Oxycodone Screen (NotDetected) 12/29/22 12/30/22 12/30/22 Range/Units 13:00 06:19 06:19 RBC 2.76 L (4.30-5.90) m/uL Hgb 8.7 L D (13.0-17.5) gm/dL Hct 26.7 L (39.0-53.0) % RDW 17.6 H (11.5-15.5) % Plt Count 87 L (150-450) k/uL Lymphocytes # 0.2 L (1.0-4.8) k/uL ABG pH (7.35-7.45) ABG pCO2 (35-45) mmHg ABG pO2 (83-108) mmHg ABG HCO3 (21-25) mmol/L ABG Total CO2 (19-24) mmol/L ABG O2 Saturation (94-97) % Sodium 146 H (137-145) mmol/L Chloride 118 H (98-107) mmol/L Carbon Dioxide 16 L (22-30) mmol/L BUN 104 H* (9-20) mg/dL Creatinine 4.61 H (0.66-1.25) mg/dL Glucose (74-99) mg/dL Plasma Lactic Acid Jeromy 2.9 H* (0.7-2.0) mmol/L Procalcitonin (0.02-0.09) ng/mL Urine Protein (Negative) Urine Blood (Negative) Urine Mucus (None) /hpf Ur Oxycodone Screen (NotDetected)
--- NOTE | 2022-12-30 11:11 | P.CONS ---
History of Present Illness - Reason for Consult Consult date: 12/30/22 multiple myeloma Requesting physician: Michael Peck - Chief Complaint AMS - History of Present Illness The patient is a 67 year old male with a past medical history of multiple myeloma with metastasis to bone, s/p chemotherapy, stem cell transplant, and immunotherapy. He also has a history of vertebral fractures,CAD, hyperlipidemia, PE (on Eliquis), and CKD stage IIIB. The patient also has had a recent 7 day admission at [facility] for aspiration pneumonia. He presented to the emergency department on 12/29/22 with altered mental status and new onset seizures. He has been more tired and weak the for the last couple days per his . The patient's witnessed some seizure like activity and states that he did not appear to be breathing well on his own. She initiated CPR. His first episode of seizure seemed to resolve while EMS was on the way, then patient had a second episode. Patient subsequently brought into the hospital to be evaluated and had a witnessed seizure in the emergency room as well. In the emergency room, patient was afebrile, 159/119, heart rate 112, 96% on room air. CBC showed anemia to 10.8, platelets of 168, white blood cell count 10.4; patient is historically pancytopenic and so these were felt to represent hemoconcentrated labs. Initial basic metabolic panel demonstrated a bicarb of 7 with an anion gap of 30, BUN of 98, creatinine of 6.7, baseline creatinine is 2.5-3. Liver function tests demonstrated a total protein of 10.6. Troponin is 0.012. Lactic acid is 12. UA showed 1+ protein, trace blood, rare mucus. Urine tox screen is positive for oxycodone, otherwise remaining illicit drugs were undetected. Alcohol level is less than 10. Influenza A, B, RSV, Covid were negative. Coags are unremarkable. Patient was given 2 L of normal saline boluses by the emergency room physician as well as started on 130 mL per hour of normal saline. He was given 2 g of Keppra as well as 4 g of Ativan for seizure- like activity that was witnessed in the emergency room. Arterial blood gas and repeat basic metabolic panel was completed, results showed pH of 7.25, pCO2 of 34, pO2 of 172. Basic metabolic panel results showed improvement of bicarb 14, anion gap improved to 16, creatinine improved to 5.48. CT of the head did not demonstrate any acute pathology. Chest x-ray did not demonstrate any acute pa thology, but showed low lung volumes overall. EKG showed sinus tachycardia with left axis deviation, otherwise no evidence of ischemia. Lactic acid improved to 4.3. 12/29 and EEG ws completed [facility] was abnormal. The background slowing is suggestive of severe encephalopathy. Otherwise, there is no focal slowing, epileptiform disccharge, or seizure on EEG. MRi of brain pending. 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, gait dysfunction-uses walker, bilateral pedal/ankle edema, PE 08/2019, chronic low back pain, past vertebral fractures, minimal CAD, shingelles twice, past R heel wound, elevated lipids in the past, History of Any Multi-Drug Resistant Organisms: None Reported Past Surgical History: Heart Catheterization, Orthopedic Surgery Additional Past Surgical History / Comment(s): excision of uvular lesion(benign) 2009, colonoscopy, dave knee arthroscopy, rt rotator cuff sx, moles removed from back(benign), bone marrow aspiration/bx, stem cell transplant 2015, Past Anesthesia/Blood Transfusion Reactions: No Reported Reaction Past Psychological History: No Psychological Hx Reported Smoking Status: Former smoker Past Alcohol Use History: None Reported Past Drug Use History: None Reported - Past Family History Father Family Medical History: Renal Disease, Vascular Disorder Additional Family Medical History / Comment(s): aaa. Father is . Mother Family Medical History: No Reported History Additional Family Medical History / Comment(s): mom is healthy Medications and Allergies Home Medications Medication Instructions Recorded Confirmed Type Acyclovir [Zovirax] 400 mg PO BID 07/07/22 12/29/22 History Gabapentin 300 mg PO TID 07/07/22 12/29/22 History dexAMETHasone [Decadron] 20 mg PO DIRECTED 07/07/22 12/29/22 History Apixaban [Eliquis] 2.5 mg PO BID 11/30/22 12/29/22 History Calcium Carbonate [Calcium] 600 mg PO PC-SUPPER 11/30/22 12/29/22 History Cholecalciferol [Vitamin D3 (25 25 mcg PO PC-SUPPER 11/30/22 12/29/22 History Mcg = 1000 Iu)] Pomalyst 3mg Capsule 3 mg PO DIRECTED 11/30/22 12/29/22 History Sodium Bicarbonate Tab 650 mg PO BID 11/30/22 12/29/22 History oxyCODONE HCL [oxyCODONE HCL (IR)] 10 mg PO Q4H PRN 11/30/22 12/29/22 History Allergies Allergy/AdvReac Type Severity Reaction Status Date / Time sulfamethoxazole Allergy Rash/Hives Verified 12/29/22 10:58 [From Bactrim] trimethoprim [From Bactrim] Allergy Rash/Hives Verified 12/29/22 10:58 Physical Exam Vitals: Vital Signs Temp Pulse Pulse Resp BP BP Pulse Ox 12/30/22 03:30 81 15 171/96 98 12/29/22 23:37 98.4 F 72 16 168/86 99 12/29/22 19:45 98.3 F 65 15 158/85 100 12/29/22 18:05 77 18 185/112 100 12/29/22 16:00 72 17 178/118 100 12/29/22 15:00 69 17 180/117 99 12/29/22 13:00 100 22 137/115 96 12/29/22 11:57 102 H 22 170/106 97 12/29/22 10:53 129 H 18 178/114 100 Intake and Output 12/29/22 12/30/22 12/30/22 22:59 06:59 14:59 Intake Total 0 180 Output Total 600 500 Balance -600 -500 180 Intake: Oral 0 180 Output: Urine 600 500 Other: Voiding Method Indwelling Catheter External Catheter # Bowel Movements 1 Weight 88 kg General: Well developed, well nourished. No acute distress. Chronically ill appearing HEENT: Head is atraumatic, normocephalic. Sclera are clear. Mucus membranes dry. CV: Heart regular in rate and rhythm positive S1 and S2. Lungs: Respirations even and nonlabored. On 2L NC. Abdomen/GI: Soft, nondistended, nontender. : No suprapubic tenderness. External catheter in place with clear yellow urine Musculoskeletal/ Extremities: No gross atrophy or contractures. + generalized weakness Vascular: Radial pulses equal. 2/4. ? peripheral edema Skin: Flushed, warm, and dry Neurologic: Lethargic, able to open eyes with physical stimulation and occasionally give one word answers Results CBC & Chem 7: 12/30/22 06:19 12/30/22 06:19 Labs: Abnormal Lab Results - Last 24 Hours (Table) 12/29/22 12/29/22 12/29/22 Range/Units 09:42 09:42 09:42 RBC (4.30-5.90) m/uL Hgb (13.0-17.5) gm/dL Hct (39.0-53.0) % RDW (11.5-15.5) % Plt Count (150-450) k/uL Lymphocytes # (1.0-4.8) k/uL APTT 18.6 L (22.0-30.0) sec ABG pH (7.35-7.45) ABG pCO2 (35-45) mmHg ABG pO2 (83-108) mmHg ABG HCO3 (21-25) mmol/L ABG Total CO2 (19-24) mmol/L ABG O2 Saturation (94-97) % Sodium (137-145) mmol/L Chloride (98-107) mmol/L Carbon Dioxide 7 L* (22-30) mmol/L BUN 98 H (9-20) mg/dL Creatinine 6.71 H (0.66-1.25) mg/dL Glucose 184 H (74-99) mg/dL POC Glucose (mg/dL) (70-110) mg/dL Plasma Lactic Acid Jeromy (0.7-2.0) mmol/L Total Protein 10.6 H (6.3-8.2) g/dL Procalcitonin (0.02-0.09) ng/mL Urine Protein (Negative) Urine Blood (Negative) Urine Mucus (None) /hpf Ur Oxycodone Screen Detected H (NotDetected) 12/29/22 12/29/22 12/29/22 Range/Units 09:42 09:42 10:26 RBC (4.30-5.90) m/uL Hgb (13.0-17.5) gm/dL Hct (39.0-53.0) % RDW (11.5-15.5) % Plt Count (150-450) k/uL Lymphocytes # (1.0-4.8) k/uL APTT (22.0-30.0) sec ABG pH (7.35-7.45) ABG pCO2 (35-45) mmHg ABG pO2 (83-108) mmHg ABG HCO3 (21-25) mmol/L ABG Total CO2 (19-24) mmol/L ABG O2 Saturation (94-97) % Sodium (137-145) mmol/L Chloride (98-107) mmol/L Carbon Dioxide (22-30) mmol/L BUN (9-20) mg/dL Creatinine (0.66-1.25) mg/dL Glucose (74-99) mg/dL POC Glucose (mg/dL) 201 H (70-110) mg/dL Plasma Lactic Acid Jeromy 12.0 H* (0.7-2.0) mmol/L Total Protein (6.3-8.2) g/dL Procalcitonin (0.02-0.09) ng/mL Urine Protein 1+ H (Negative) Urine Blood Trace H (Negative) Urine Mucus Rare H (None) /hpf Ur Oxycodone Screen (NotDetected) 12/29/22 12/29/22 12/29/22 Range/Units 12:01 12:17 12:17 RBC (4.30-5.90) m/uL Hgb (13.0-17.5) gm/dL Hct (39.0-53.0) % RDW (11.5-15.5) % Plt Count (150-450) k/uL Lymphocytes # (1.0-4.8) k/uL APTT (22.0-30.0) sec ABG pH 7.25 L (7.35-7.45) ABG pCO2 34 L (35-45) mmHg ABG pO2 172 H (83-108) mmHg ABG HCO3 15 L (21-25) mmol/L ABG Total CO2 16 L (19-24) mmol/L ABG O2 Saturation 99.5 H (94-97) % Sodium (137-145) mmol/L Chloride 113 H (98-107) mmol/L Carbon Dioxide 14 L (22-30) mmol/L BUN 97 H (9-20) mg/dL Creatinine 5.48 H (0.66-1.25) mg/dL Glucose 152 H (74-99) mg/dL POC Glucose (mg/dL) (70-110) mg/dL Plasma Lactic Acid Jeromy 4.3 H* (0.7-2.0) mmol/L Total Protein (6.3-8.2) g/dL Procalcitonin (0.02-0.09) ng/mL Urine Protein (Negative) Urine Blood (Negative) Urine Mucus (None) /hpf Ur Oxycodone Screen (NotDetected) 12/29/22 12/29/22 12/30/22 Range/Units 12:17 13:00 06:19 RBC 2.76 L (4.30-5.90) m/uL Hgb 8.7 L D (13.0-17.5) gm/dL Hct 26.7 L (39.0-53.0) % RDW 17.6 H (11.5-15.5) % Plt Count 87 L (150-450) k/uL Lymphocytes # 0.2 L (1.0-4.8) k/uL APTT (22.0-30.0) sec ABG pH (7.35-7.45) ABG pCO2 (35-45) mmHg ABG pO2 (83-108) mmHg ABG HCO3 (21-25) mmol/L ABG Total CO2 (19-24) mmol/L ABG O2 Saturation (94-97) % Sodium (137-145) mmol/L Chloride (98-107) mmol/L Carbon Dioxide (22-30) mmol/L BUN (9-20) mg/dL Creatinine (0.66-1.25) mg/dL Glucose (74-99) mg/dL POC Glucose (mg/dL) (70-110) mg/dL Plasma Lactic Acid Jeromy 2.9 H* (0.7-2.0) mmol/L Total Protein (6.3-8.2) g/dL Procalcitonin 0.18 H (0.02-0.09) ng/mL Urine Protein (Negative) Urine Blood (Negative) Urine Mucus (None) /hpf Ur Oxycodone Screen (NotDetected) 12/30/22 Range/Units 06:19 RBC (4.30-5.90) m/uL Hgb (13.0-17.5) gm/dL Hct (39.0-53.0) % RDW (11.5-15.5) % Plt Count (150-450) k/uL Lymphocytes # (1.0-4.8) k/uL APTT (22.0-30.0) sec ABG pH (7.35-7.45) ABG pCO2 (35-45) mmHg ABG pO2 (83-108) mmHg ABG HCO3 (21-25) mmol/L ABG Total CO2 (19-24) mmol/L ABG O2 Saturation (94-97) % Sodium 146 H (137-145) mmol/L Chloride 118 H (98-107) mmol/L Carbon Dioxide 16 L (22-30) mmol/L BUN 104 H* (9-20) mg/dL Creatinine 4.61 H (0.66-1.25) mg/dL Glucose (74-99) mg/dL POC Glucose (mg/dL) (70-110) mg/dL Plasma Lactic Acid Jeromy (0.7-2.0) mmol/L Total Protein (6.3-8.2) g/dL Procalcitonin (0.02-0.09) ng/mL Urine Protein (Negative) Urine Blood (Negative) Urine Mucus (None) /hpf Ur Oxycodone Screen (NotDetected) Abdominal x-ray: report reviewed CT Scan - head: report reviewed Assessment and Plan Assessment: Social * Occupation - unemployed/on disability. Worked for a [employer] for over 30 years * Marital status - to , Blossom, for 35 years * Children/grandchildren - 2 adult sons, no grandchildren * Residence - one story house * Who do you reside with - and son * ETOH - No * Tobacco - Never smoked * Illicit drugs - No Spiritual/Cultural * A spiritual person - Yes * Methodist - Muslim * Belong to a particular sabianist - No * Beliefs a source of comfort and strength - Yes * Religion or cultural practices restrictions - No * EOL considerations/rituals? No Functional Assessment * Able to walk independently - No * Assistive devices - walker * Able to use the bathroom independently - No * Continent - No * Require assistance bathing- Yes * Able to feed self - No * Who prepares meals - * How many meals a day eaten - 1-2 * What percentage of meals eaten daily - < 50% * Able to clean house/do laundry - No * Transportation - Does not drive anymore. and son provide transportation * Able to shop - No * Who manages medications - * Who manages finances - PPS score - 40% Psychological/Emotional * Insight and judgment - Not intact * Depression - Unable to assess at this time * Suicidal thoughts - Unable to assess at this time * Good support system - Yes, and 2 sons * Patients goals - prolonged survival - per * Frequent hospitalizations - Yes * Desire to keep coming back to the hospital for treatment - Yes Symptoms * Pain - CPOT 0/10, Continue PRN Oxycodone and Neurotin * Fatigue - Yes, generalized weakness and fatigue, consider PT * SOB - No * Insomnia - No * N/V - No * Anxiety - [employer] * Depression - DAMEON * Confusion - Yes * Agitation - No * Hallucinations - No * Appetite/weight loss - decreased appetite, on heart healthy diet, added Ensure supplements and magic cups, CMP pending for albumin and protein levels. BMI 27.1 * Dysphagia - Pt has had recent admission with asp pneumonia, REG[facility] SENIOR CARE PROVIDER consulted for swallow eval * Constipation - No * Incontinence - Yes, has external catheter with clear yellow urine present * Itch - No * Cough - Occasional dry cough Plan: Summary/Goals - The patient is lying in bed and is quite lethargic and occasionally restless. He wakes up with physical and verbal stimulation and will answer some questions with one word answers. He has difficulty staying awake. Information regarding palliative care philosophies and services was provided. His , Blossom, is at the bedside. Education provided regarding the patient's metastatic multiple myeloma. The patient is more debilitated than he was in April. He has had a decrease in his function and requires more assistance with his ADL's. His also reports a decrease in appetite, stating he is not eating well. She states he occasionally coughs after eating/drinking. Education provided regarding a swallow evaluation by REG[facility] SENIOR CARE PROVIDER. It was also stressed that the patient must be awake enough to swallow properly. Blossom states that the patient wants to keep fighting. He is a patient of Dr. Browning and was supposed to start a new chemo treatment on . Concern was expressed regarding whether the patient was strong enough to withstand chemo and has a poor prognosis given his functional status. Blossom states that she is aware of her husbands wishes and they are not willing to give up. They hope the patient will get strong enough to go home and start his new chemo regimen to extend his life expectancy. She states their son, Eddi, has quit his job and lives with them to help care for him. Code status addressed and explained in detail. The patient's would like him to remain a full code at this time. Will continue to follow patient and support family. Advanced Directives - No, information provided Code Status - Full Code Thank you for this consultation Samantha Monroy [facility] Palliative [facility] [id number] Email: [email or web address]
[2022-12-30] MEDS: levETIRAcetam IV 1,000 MG in SALINE 1 100ML.BAG IVPB SCH (11:24)
[2022-12-30] MEDS: DEXTROSE 5% IN WATER 1,000 ML with SODIUM BICARB (1 MEQ/ML) 100 ML IV SCH (11:25)
--- NOTE | 2022-12-30 11:48 | P.NPCON ---
History of Present Illness - Reason for Consult acute renal failure - History of Present Illness Patient is a 59-year-old male with history of multiple myeloma and metastases to the bone, status post chemotherapy, stem cell transplant and immunotherapy. Patient has underlying CK D stage III B with serum creatinine around 1.7-1.9 mg/dL. Etiology is multiple myeloma. Patient is admitted to the hospital with history of seizure. Patient's did perform short term. CPR. It is unclear if patient had lost his pulse. Patient's reports increased lethargy over the past few days prior to admission. Recent diarrhea No recent fever Fair urine output according to Serum creatinine was 6.7 on admission and it is now down to 4.6. Patient is currently maintained on IV fluids. He has an external catheter with 1100 mL of urine documented for 24 hours. 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, gait dysfunction-uses walker, bilateral pedal/ankle edema, PE 08/2019, chronic low back pain, past vertebral fractures, minimal CAD, shingelles twice, past R heel wound, elevated lipids in the past, History of Any Multi-Drug Resistant Organisms: None Reported Past Surgical History: Heart Catheterization, Orthopedic Surgery Additional Past Surgical History / Comment(s): excision of uvular lesion(benign) 2009, colonoscopy, dave knee arthroscopy, rt rotator cuff sx, moles removed from back(benign), bone marrow aspiration/bx, stem cell transplant 2015, Past Anesthesia/Blood Transfusion Reactions: No Reported Reaction Past Psychological History: No Psychological Hx Reported Smoking Status: Former smoker Past Alcohol Use History: None Reported Past Drug Use History: None Reported - Past Family History Father Family Medical History: Renal Disease, Vascular Disorder Additional Family Medical History / Comment(s): aaa. Father is . Mother Family Medical History: No Reported History Additional Family Medical History / Comment(s): mom is healthy Medications and Allergies Home Medications Medication Instructions Recorded Confirmed Type Acyclovir [Zovirax] 400 mg PO BID 07/07/22 12/29/22 History Gabapentin 300 mg PO TID 07/07/22 12/29/22 History dexAMETHasone [Decadron] 20 mg PO DIRECTED 07/07/22 12/29/22 History Apixaban [Eliquis] 2.5 mg PO BID 11/30/22 12/29/22 History Calcium Carbonate [Calcium] 600 mg PO PC-SUPPER 11/30/22 12/29/22 History Cholecalciferol [Vitamin D3 (25 25 mcg PO PC-SUPPER 11/30/22 12/29/22 History Mcg = 1000 Iu)] Pomalyst 3mg Capsule 3 mg PO DIRECTED 11/30/22 12/29/22 History Sodium Bicarbonate Tab 650 mg PO BID 11/30/22 12/29/22 History oxyCODONE HCL [oxyCODONE HCL (IR)] 10 mg PO Q4H PRN 11/30/22 12/29/22 History Allergies Allergy/AdvReac Type Severity Reaction Status Date / Time sulfamethoxazole Allergy Rash/Hives Verified 12/29/22 10:58 [From Bactrim] trimethoprim [From Bactrim] Allergy Rash/Hives Verified 12/29/22 10:58 Physical Exam Vitals: Vital Signs Temp Pulse Pulse Resp BP BP Pulse Ox 12/30/22 03:30 81 15 171/96 98 12/29/22 23:37 98.4 F 72 16 168/86 99 12/29/22 19:45 98.3 F 65 15 158/85 100 12/29/22 18:05 77 18 185/112 100 12/29/22 16:00 72 17 178/118 100 12/29/22 15:00 69 17 180/117 99 12/29/22 13:00 100 22 137/115 96 12/29/22 11:57 102 H 22 170/106 97 Intake and Output 12/29/22 12/30/22 12/30/22 22:59 06:59 14:59 Intake Total 0 180 Output Total 600 500 104 Balance -600 -500 76 Intake: Oral 0 180 Output: Urine 600 500 Post Void Residual 104 Other: Voiding Method Indwelling Catheter External Catheter # Bowel Movements 1 Weight 88 kg 88 kg Patient is awake, comfortable, no acute distress. He does recognize me He patient follows commands Examination of the heart S1 and S2 Examination of the lungs bilateral breath sounds are heard Abdomen is soft nontender Examination of lower extremity shows no evidence of edema RELIEF CAPTAIN exam shows patient is moving all 4 extremities. Results - Lab Results Most recent lab results ABG pH 7.25 (7.35-7.45) L 12/29/22 12:01 ABG pCO2 34 mmHg (35-45) L 12/29/22 12:01 ABG pO2 172 mmHg (83-108) H 12/29/22 12:01 ABG HCO3 15 mmol/L (21-25) L 12/29/22 12:01 ABG O2 Saturation 99.5 % (94-97) H 12/29/22 12:01 Calcium 8.8 mg/dL (8.4-10.2) 12/30/22 06:19 Magnesium 2.1 mg/dL (1.6-2.3) 12/30/22 06:19 12/30/22 06:19 12/30/22 06:19 Assessment and Plan Assessment: 1. Acute kidney injury, nonoliguric, most likely ATN currently improving. Element of volume depletion also present. Continue with IV fluids. Since renal function has improved we will hold off on hemodialysis. 2. New onset seizure, Current CAT scan shows no abnormalities. Being followed by neurology 3. CK D stage III be secondary to multiple myeloma with baseline creatinine around 1.7-1.9 mg/dL 4. Anion gap metabolic acidosis associated with acute kidney injury and lactic acidosis currently improved 5. Hypertension, currently not able to take by mouth medications 6. Multiple myeloma with lytic lesions in the rib Plan: Continue IV fluids and change to IV bicarb Add hydralazine IV for blood pressure control and add clonidine patch as patient is not able to take oral medications. No need to proceed with renal replacement therapy Repeat labs in a.m. Avoid nephrotoxic agents
--- NOTE | 2022-12-30 12:06 | P.CONS ---
History of Present Illness - Reason for Consult Consult date: 12/30/22 hx multiple myeloma Requesting physician: Michael Peck - Chief Complaint seizure, hx of multiple myeloma - History of Present Illness Patient is a 67-year-old male with a history of multiple myeloma who follows with Dr. Browning. He is currently off treatment. Last treatment of Kyprolis was on 11/25/22. Kyprolis and pomalyst stopped due to disease progression. Treatment was changed to cytoxan/velcade/dex but has not yet started tx. He is awaiting evaluation by Dr. Gambino at [facility] to discuss bispecific antibody treatment vs CAR-T cell therapy. Patient presented to the emergency room for a witnessed seizure by family. He has no history of known seizures. family states that prior to the seizure he was acting slightly confused. also reports that he has had decreased appetite and hasn't been eating as much. denies any recent illness. patient denies pain at this time. He is lethargic and is responding to verbal stimuli and is answering some questions but is confused. No other reported complaints at this time. CT brain negative for acute intracranial process. EEG showed background slowing, suggestive of severe encephalopathy. Neuro consulted, pt started on keppra Hgb 8.7, platelet count 87,000. Creatinine was 6.7 upon admission, 4.6 today. Hx of CKD, with baseline creatinine typically in 1.7-2.5 range. Oncology History: Patient who presented with progressive back pain,started around August 2015. SPEP and immunofixation revealed IgG lambda monoclonal protein,M-protein of 6.8gm/d,serum lambda level 4.14mg/dl,kappa/lambda ratio 0.04. 12/2015 CT scan of lumbar spine revealed demineralization and compression fracture at L1. MRI of th oracic and lumbar spine multiple lytic lesions, compression at L1, no soft tissue component or mass effects. 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 He started RVD on 01/11/2016. He completed 4 cycles on 03/28/2016. He underwent autologous stem cell transplant on 08/27/2016. 01/02/2017 SPEP and immunofixation revealed no M-protein,normal kappa/lambda ratio and normal CBC,CMP. He started maintenance revlimid 5 mg/day December 2016. He started to have worsening back pain in January 2019, MRI of his lumbar spine 03/10/19 which revealed progressing soft tissue mass at L2 causing compression of the thecal sac and L3 nerve root and new paraspinal soft tissue mass at L4-L5 for which he had palliative XRT. 03/08/2019 M-protein was up to 2.2gm/dl, Ig level up to 3019mg/dl, free lambda level 148.9mg/L, ratio of 0.04, normal creatinine and calcium, repeat skeletal bone survey revealed no changes. 03/2019 he started darzalex/pomalyst/decadron. 03/03/2022 PET scan revealed new soft tissue lesion at T12, he had palliative XRT to it due to pain. 03/2022 he started kyprolis/pomalist/dex. Patient had an admission for GIB, significantly dropped his hemoglobin, underwent transfusion, GI work up was negative and resumed eliquis at lower dose, ASA was held. Then he resumed single agent kyprolis/dex (pomalyst kept on hold). Currently has received 7 cycles of kyprolis, last cycle on 11/25/22. On 07/2022,M protein was 0.2 gm/dl,IgG was 373 mg/dl,kappa/lambda ratio normal. On 09/2022,M protein was 0.5 gm/dl (IgG Lambda),serum IgG was 786 mg/dl,serum free lambda was 49.8 mg/L On 12/13/2022, myeloma panel done at [facility] (was inpatient for fever,unknown origin), serum IgG of 3918 mg/dl,IgG Lmabda M spike of 2.8 gm/dl,serum free lambda was 70 mg/dl,kappa 0.12 Due to evidence of disease progression, and triple refractory disease, plan to start patient on cytoxan/velcade/dex regimen, while awaiting evaluation by Dr. Gambino for possible treatment with bispecific antibodies vs CAR-T cell therapy. 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, gait dysfunction-uses walker, bilateral pedal/ankle edema, PE 08/2019, chronic low back pain, past vertebral fractures, minimal CAD, shingelles twice, past R heel wound, elevated lipids in the past, History of Any Multi-Drug Resistant Organisms: None Reported Past Surgical History: Heart Catheterization, Orthopedic Surgery Additional Past Surgical History / Comment(s): excision of uvular lesion(benign) 2009, colonoscopy, dave knee arthroscopy, rt rotator cuff sx, moles removed from back(benign), bone marrow aspiration/bx, stem cell transplant 2015, Past Anesthesia/Blood Transfusion Reactions: No Reported Reaction Past Psychological History: No Psychological Hx Reported Smoking Status: Former smoker Past Alcohol Use History: None Reported Past Drug Use History: None Reported - Past Family History Father Family Medical History: Renal Disease, Vascular Disorder Additional Family Medical History / Comment(s): aaa. Father is . Mother Family Medical History: No Reported History Additional Family Medical History / Comment(s): mom is healthy Medications and Allergies Home Medications Medication Instructions Recorded Confirmed Type Acyclovir [Zovirax] 400 mg PO BID 07/07/22 12/29/22 History Gabapentin 300 mg PO TID 07/07/22 12/29/22 History dexAMETHasone [Decadron] 20 mg PO DIRECTED 07/07/22 12/29/22 History Apixaban [Eliquis] 2.5 mg PO BID 11/30/22 12/29/22 History Calcium Carbonate [Calcium] 600 mg PO PC-SUPPER 11/30/22 12/29/22 History Cholecalciferol [Vitamin D3 (25 25 mcg PO PC-SUPPER 11/30/22 12/29/22 History Mcg = 1000 Iu)] Pomalyst 3mg Capsule 3 mg PO DIRECTED 11/30/22 12/29/22 History Sodium Bicarbonate Tab 650 mg PO BID 11/30/22 12/29/22 History oxyCODONE HCL [oxyCODONE HCL (IR)] 10 mg PO Q4H PRN 11/30/22 12/29/22 History Allergies Allergy/AdvReac Type Severity Reaction Status Date / Time sulfamethoxazole Allergy Rash/Hives Verified 12/29/22 10:58 [From Bactrim] trimethoprim [From Bactrim] Allergy Rash/Hives Verified 12/29/22 10:58 Physical Exam Vitals: Vital Signs Temp Pulse Pulse Resp BP BP Pulse Ox 12/30/22 03:30 81 15 171/96 98 12/29/22 23:37 98.4 F 72 16 168/86 99 12/29/22 19:45 98.3 F 65 15 158/85 100 12/29/22 18:05 77 18 185/112 100 12/29/22 16:00 72 17 178/118 100 12/29/22 15:00 69 17 180/117 99 12/29/22 13:00 100 22 137/115 96 12/29/22 11:57 102 H 22 170/106 97 12/29/22 10:53 129 H 18 178/114 100 12/29/22 09:28 97.9 F 112 H 16 159/119 96 Intake and Output 12/29/22 12/30/22 12/30/22 22:59 06:59 14:59 Intake Total 0 180 Output Total 600 500 Balance -600 -500 180 Intake: Oral 0 180 Output: Urine 600 500 Other: Voiding Method Indwelling Catheter External Catheter # Bowel Movements 1 Weight 88 kg - Constitutional General appearance: average body habitus, no acute distress - EENT Eyes: anicteric sclerae, EOMI - Neck Neck: no lymphadenopathy - Respiratory Respiratory: bilateral: CTA - Cardiovascular Rhythm: regular Heart sounds: normal: S1, S2 Abnormal Heart Sounds: systolic murmur, diastolic murmur - Gastrointestinal General gastrointestinal: soft, no tenderness - Integumentary Integumentary: normal - Neurologic confused, responsive to verbal stimuli, alert to name - Musculoskeletal Musculoskeletal: generalized weakness Results CBC & Chem 7: 12/30/22 06:19 12/30/22 06:19 Labs: Abnormal Lab Results - Last 24 Hours (Table) 12/29/22 12/29/22 12/29/22 Range/Units 09:42 09:42 09:42 RBC 3.52 L (4.30-5.90) m/uL Hgb 10.8 L (13.0-17.5) gm/dL Hct 34.2 L (39.0-53.0) % RDW 17.5 H (11.5-15.5) % Plt Count (150-450) k/uL Neutrophils # 8.2 H (1.3-7.7) k/uL Lymphocytes # (1.0-4.8) k/uL APTT 18.6 L (22.0-30.0) sec ABG pH (7.35-7.45) ABG pCO2 (35-45) mmHg ABG pO2 (83-108) mmHg ABG HCO3 (21-25) mmol/L ABG Total CO2 (19-24) mmol/L ABG O2 Saturation (94-97) % Sodium (137-145) mmol/L Chloride (98-107) mmol/L Carbon Dioxide (22-30) mmol/L BUN (9-20) mg/dL Creatinine (0.66-1.25) mg/dL Glucose (74-99) mg/dL POC Glucose (mg/dL) (70-110) mg/dL Plasma Lactic Acid Jeromy (0.7-2.0) mmol/L Total Protein (6.3-8.2) g/dL Procalcitonin (0.02-0.09) ng/mL Urine Protein (Negative) Urine Blood (Negative) Urine Mucus (None) /hpf Ur Oxycodone Screen Detected H (NotDetected) 12/29/22 12/29/22 12/29/22 Range/Units 09:42 09:42 09:42 RBC (4.30-5.90) m/uL Hgb (13.0-17.5) gm/dL Hct (39.0-53.0) % RDW (11.5-15.5) % Plt Count (150-450) k/uL Neutrophils # (1.3-7.7) k/uL Lymphocytes # (1.0-4.8) k/uL APTT (22.0-30.0) sec ABG pH (7.35-7.45) ABG pCO2 (35-45) mmHg ABG pO2 (83-108) mmHg ABG HCO3 (21-25) mmol/L ABG Total CO2 (19-24) mmol/L ABG O2 Saturation (94-97) % Sodium (137-145) mmol/L Chloride (98-107) mmol/L Carbon Dioxide 7 L* (22-30) mmol/L BUN 98 H (9-20) mg/dL Creatinine 6.71 H (0.66-1.25) mg/dL Glucose 184 H (74-99) mg/dL POC Glucose (mg/dL) (70-110) mg/dL Plasma Lactic Acid Jeromy 12.0 H* (0.7-2.0) mmol/L Total Protein 10.6 H (6.3-8.2) g/dL Procalcitonin (0.02-0.09) ng/mL Urine Protein 1+ H (Negative) Urine Blood Trace H (Negative) Urine Mucus Rare H (None) /hpf Ur Oxycodone Screen (NotDetected) 12/29/22 12/29/22 12/29/22 Range/Units 10:26 12:01 12:17 RBC (4.30-5.90) m/uL Hgb (13.0-17.5) gm/dL Hct (39.0-53.0) % RDW (11.5-15.5) % Plt Count (150-450) k/uL Neutrophils # (1.3-7.7) k/uL Lymphocytes # (1.0-4.8) k/uL APTT (22.0-30.0) sec ABG pH 7.25 L (7.35-7.45) ABG pCO2 34 L (35-45) mmHg ABG pO2 172 H (83-108) mmHg ABG HCO3 15 L (21-25) mmol/L ABG Total CO2 16 L (19-24) mmol/L ABG O2 Saturation 99.5 H (94-97) % Sodium (137-145) mmol/L Chloride 113 H (98-107) mmol/L Carbon Dioxide 14 L (22-30) mmol/L BUN 97 H (9-20) mg/dL Creatinine 5.48 H (0.66-1.25) mg/dL Glucose 152 H (74-99) mg/dL POC Glucose (mg/dL) 201 H (70-110) mg/dL Plasma Lactic Acid Jeromy (0.7-2.0) mmol/L Total Protein (6.3-8.2) g/dL Procalcitonin (0.02-0.09) ng/mL Urine Protein (Negative) Urine Blood (Negative) Urine Mucus (None) /hpf Ur Oxycodone Screen (NotDetected) 12/29/22 12/29/22 12/29/22 Range/Units 12:17 12:17 13:00 RBC (4.30-5.90) m/uL Hgb (13.0-17.5) gm/dL Hct (39.0-53.0) % RDW (11.5-15.5) % Plt Count (150-450) k/uL Neutrophils # (1.3-7.7) k/uL Lymphocytes # (1.0-4.8) k/uL APTT (22.0-30.0) sec ABG pH (7.35-7.45) ABG pCO2 (35-45) mmHg ABG pO2 (83-108) mmHg ABG HCO3 (21-25) mmol/L ABG Total CO2 (19-24) mmol/L ABG O2 Saturation (94-97) % Sodium (137-145) mmol/L Chloride (98-107) mmol/L Carbon Dioxide (22-30) mmol/L BUN (9-20) mg/dL Creatinine (0.66-1.25) mg/dL Glucose (74-99) mg/dL POC Glucose (mg/dL) (70-110) mg/dL Plasma Lactic Acid Jeromy 4.3 H* 2.9 H* (0.7-2.0) mmol/L Total Protein (6.3-8.2) g/dL Procalcitonin 0.18 H (0.02-0.09) ng/mL Urine Protein (Negative) Urine Blood (Negative) Urine Mucus (None) /hpf Ur Oxycodone Screen (NotDetected) 12/30/22 12/30/22 Range/Units 06:19 06:19 RBC 2.76 L (4.30-5.90) m/uL Hgb 8.7 L D (13.0-17.5) gm/dL Hct 26.7 L (39.0-53.0) % RDW 17.6 H (11.5-15.5) % Plt Count 87 L (150-450) k/uL Neutrophils # (1.3-7.7) k/uL Lymphocytes # 0.2 L (1.0-4.8) k/uL APTT (22.0-30.0) sec ABG pH (7.35-7.45) ABG pCO2 (35-45) mmHg ABG pO2 (83-108) mmHg ABG HCO3 (21-25) mmol/L ABG Total CO2 (19-24) mmol/L ABG O2 Saturation (94-97) % Sodium 146 H (137-145) mmol/L Chloride 118 H (98-107) mmol/L Carbon Dioxide 16 L (22-30) mmol/L BUN 104 H* (9-20) mg/dL Creatinine 4.61 H (0.66-1.25) mg/dL Glucose (74-99) mg/dL POC Glucose (mg/dL) (70-110) mg/dL Plasma Lactic Acid Jeromy (0.7-2.0) mmol/L Total Protein (6.3-8.2) g/dL Procalcitonin (0.02-0.09) ng/mL Urine Protein (Negative) Urine Blood (Negative) Urine Mucus (None) /hpf Ur Oxycodone Screen (NotDetected) Comments: EEG reviewed Chest x-ray: report reviewed CT Scan - head: report reviewed Assessment and Plan (1) New onset seizure Current Visit: Yes Status: Acute Priority: High Code(s): R56.9 - UNSPECIFIED CONVULSIONS SNOMED Code(s): 83865404 (2) DUNCAN (acute kidney injury) Current Visit: Yes Status: Acute Priority: High Code(s): N17.9 - ACUTE KIDNEY FAILURE, UNSPECIFIED SNOMED Code(s): 94811249 (3) Multiple myeloma Current Visit: Yes Status: Chronic Priority: High Code(s): C90.00 - MULTIPLE MYELOMA NOT HAVING ACHIEVED REMISSION SNOMED Code(s): 804802185 Plan: DUNCAN: -Hx of CKD. Baseline creatinine typically in 1.7-2.5 range. Upon admission creat inine 6.7. Today 4.6, gradually improving. DUNCAN likely related to poor oral intake/dehydration with history of known CKD -Nephrology consulted Seizure: -No hx seziures. He was started on keppra. Seizure may have been due to dehydration, DUNCAN with underlying CKD, and progressing myeloma, resulting in a uremic seizure -CT brain negative for acute intracranial process. EEG showed background slowing , suggestive of severe encephalopathy. -Neurology following Multiple Myeloma: -Currently has received 7 cycles of kyprolis, last cycle on 11/25/22. -Due to evidence of disease progression, and triple refractory disease, kyprolis and promalyst was discontinued. Plan for patient to start cytoxan/velcade/dex regimen while awaiting evaluation by Dr. Gambino at [facility] for possible treatment with bispecific antibodies vs CAR-T cell therapy. -24 hour urine lambda/kappa light chains and protein electrophoresis ordered -MRI brain will be obtained to r/o metastasis -Will plan for outpatient reevaluation once patient recovers before starting next chemo regimen attests: I have performed H&P and developed impression and plan of care for patient, discussed with dictator. I agree with dictated note, documented as a scribe.
--- NOTE | 2022-12-30 13:08 | P.PN ---
Subjective Progress Note Date: 12/30/22 The patient is seen at bedside and is accompanied with . feels he is doing better. No further seizures. Objective - Vital Signs Vital signs: Vital Signs Temp 98.4 F 12/29/22 23:37 Pulse 81 12/30/22 03:30 Resp 15 12/30/22 03:30 BP 171/96 12/30/22 03:30 Pulse Ox 98 12/30/22 03:30 FiO2 Intake & Output 12/29/22 12/30/22 12/30/22 18:59 06:59 18:59 Intake Total 0 180 Output Total 1100 104 Balance -1100 76 Weight 92.986 kg 88 kg 88 kg Intake: Oral 0 180 Output: Urine 1100 Post Void Residual 104 Other: Voiding Method Indwelling Catheter External Catheter # Bowel Movements 1 - Exam GENERAL: The patient is lying in bed and is not in acute distress. NEUROLOGICAL: Limited because of cooperation. Higher mental function: The patient is awake, alert, oriented to self. He is slow to respond but seems more awake and responding today better than yesterday. He is following simple commands. Language limited. Cranial nerves: Pupils are round, equal and reactive to light. EOM is tracking throughout the room. No facial weakness. No dyarhtria. Motor: The strength is limited but lifting upper and lowers above gravity. Cerebellum: Unable to assess. Sensation: Unable to assess. Some other workup during his hospital visit consisted of So far the patient is afebrile White Blood cell is tempered 10.4K Ammonia is 11. Urine drug screen is positive for oxycodone SARS coV2 PCR, Influenza A/B and RSV is not detected. CT head is reported as no acute intracranial processes or significant change from prior. I personally reviewed CT and agree there is no acute or subacute ischemia. Routine EEG: Is abnormal. The background slowing is suggestive of severe encephalopathy. Otherwise there is no focal slowing, epileptiform discharges or seizure in the EEG - Labs CBC & Chem 7: 12/30/22 06:19 12/30/22 06:19 Labs: Abnormal Lab Results - Last 24 Hours (Table) 12/29/22 12/29/22 12/30/22 Range/Units 12:17 13:00 06:19 RBC 2.76 L (4.30-5.90) m/uL Hgb 8.7 L D (13.0-17.5) gm/dL Hct 26.7 L (39.0-53.0) % RDW 17.6 H (11.5-15.5) % Plt Count 87 L (150-450) k/uL Lymphocytes # 0.2 L (1.0-4.8) k/uL Sodium (137-145) mmol/L Chloride (98-107) mmol/L Carbon Dioxide (22-30) mmol/L BUN (9-20) mg/dL Creatinine (0.66-1.25) mg/dL Plasma Lactic Acid Jeromy 2.9 H* (0.7-2.0) mmol/L Procalcitonin 0.18 H (0.02-0.09) ng/mL 12/30/22 Range/Units 06:19 RBC (4.30-5.90) m/uL Hgb (13.0-17.5) gm/dL Hct (39.0-53.0) % RDW (11.5-15.5) % Plt Count (150-450) k/uL Lymphocytes # (1.0-4.8) k/uL Sodium 146 H (137-145) mmol/L Chloride 118 H (98-107) mmol/L Carbon Dioxide 16 L (22-30) mmol/L BUN 104 H* (9-20) mg/dL Creatinine 4.61 H (0.66-1.25) mg/dL Plasma Lactic Acid Jeromy (0.7-2.0) mmol/L Procalcitonin (0.02-0.09) ng/mL Assessment and Plan Assessment: New onset seizure (had two seizures one at home and one in ED. Lactic acidosis why hypocarpnia due to above Recent aspiration pneumonia about 2 weeks ago History of left facial twitching and myoclonic jerks---prior EEG were negative for seizure. As well prior MRI Brain was negative. History of multiple myeloma and has received chemotherapy and pending to receive different chemotherapy History of pulmonary embolism on eliquis History of T12 fracture with multiple vertebral fracture due to multiple myeloma History of coronary artery disease Dyslipidemia Plan: I decreased Keppra 1 gm every 12 hours by ED team to 750mg every 12 hours (since feel was on high dose and was not on any antiseizure medication prior). Pending MRI Brain. On seizure precaution and pad. Oncology is consulted. Will defer the rest of medical management to primary team. Palliative care is consulted. The plan is discussed with patient's (who is at bedside) and his mother and sister who are at bedside. Time with Patient: Less than 30
--- NOTE | 2022-12-30 15:06 | MR ---
EXAMINATION TYPE: MR brain wo con DATE OF EXAM: 12/30/2022 COMPARISON: Prior MRI brain April 14, 2022 HISTORY: SEIZURE, HX MULTIPLE MYELOMA, EVALUATE FOR METS TECHNIQUE: Multiplanar, multisequence imaging of the brain and brainstem is performed without IV cont rast. FINDINGS: Exam is suboptimal as patient unable to hold still. Diffusion weighted images demonstrate no evidence of a recent infarct or other diffusion abnormality. There is mild to moderate ventricular and sulcal prominence redemonstrated. There are new areas of jean bcortical T2 hyperintensity fairly symmetric in appearance throughout the bilateral occipital lobes w ith additional smaller areas of involvement the high posterior frontal lobes. Gyral swelling is prese nt. Some areas of T2 hyperintensity throughout the bilateral cerebellar hemispheres are felt present axial image 7 for reference. No evidence of blood products and T2 star weighted images Midline structures redemonstrate somewhat empty sella morphology. The craniocervical junction remain ing within normal limits. Normal vascular flow voids are present. The visualized sinuses are clear an d the globes are intact. IMPRESSION: No MRI evidence for a recent infarct. Ylin-[id number] diffuse cerebral atrophy with nons pecific moderate to severe superiorly symmetric-appearing white matter changes as detailed above. Dif ferential includes posterior reversible encephalopathy syndrome(PRES). Other etiologies are not exclu ded including metabolic processes. PML is in differential. Symmetric appearance would argue against m etastatic involvement on noncontrast study.
[2022-12-30] MEDS: APIXABAN 2.5 MG TABLET PO SCH ×2 (15:55→20:17)
[2022-12-30] MEDS: SODIUM BICARBONATE TAB 650 MG TAB PO SCH ×2 (15:55→20:17)
[2022-12-30] MEDS: ACYCLOVIR 200 MG CAP PO SCH ×2 (15:55→20:17)
[2022-12-30] MEDS ORDERED: ONDANSETRON 4 MG/2 ML VIAL IVP PRN (16:49)
[2022-12-30] MEDS: CALCIUM CARB-VIT D 500 MG-5 MCG TAB PO SCH (17:33)
[2022-12-30] MEDS: CHOLECALCIFEROL 25 MCG (1000 IU) TABLET PO SCH (17:33)
[2022-12-30] MEDS: GABAPENTIN 300 MG CAP PO SCH (18:42)
[2022-12-31] MEDS: DEXTROSE 5% IN WATER 1,000 ML with SODIUM BICARB (1 MEQ/ML) 100 ML IV SCH (00:01)
--- NOTE | 2022-12-31 09:25 | P.PN ---
Subjective Progress Note Date: 12/31/22 Patient's mentation is again significantly improved. Pt reports feeling "100x better". Still feeling generally weak. Gen: awake, alert HEENT: normocephalic, atraumatic, good hearing acuity, moist mucous membranes Resp: good air exchange, breathing comfortably with no accessory muscle use CVS: good distal perfusion x 4, GI: soft, NTTP, ND : no SPT, no CVAT, hernandez catheter is present MSK: no pitting edema, no clubbing Neuro: non-focal, moving all extremities Psych: cooperative, euthymic mood Hospital course: 59-year-old man with medical history multiple myeloma with bone metastases and pancytopenia, chronic kidney disease stage IIIB, history of pulmonary embolism on Apixiban presented for evaluation after witnessed seizure. In the emergency room, patient was afebrile, 159/119, heart rate 112, 96% on room air. CBC showed anemia to 10.8, platelets of 168, white blood cell count 10.4; patient is historically pancytopenic and so these were felt to represent hemoconcentrated labs. Initial basic metabolic panel demonstrated a bicarb of 7 with an anion gap of 30, BUN of 98, creatinine of 6.7, baseline creatinine is 2.5-3. Liver function tests demonstrated a total protein of 10.6. Troponin is 0.012. Lactic acid is 12. UA showed 1+ protein, trace blood, rare mucus. Urine tox screen is positive for oxycodone, otherwise remaining Alesse drugs were undetected. Alcohol level is less than 10. Influenza A, B, RSV, Covid were negative. Coags are unremarkable. Patient was given 2 L of normal saline boluses by the emergency room physician as well as started on 130 mL per hour of normal saline. He was given 2 g of Keppra as well as 4 g of Ativan for seizure-like activity that was witnessed in the emergency room. Arterial blood gas and repeat basic m etabolic panel was completed, results showed pH of 7.25, pCO2 of 34, pO2 of 172. Basic metabolic panel results showed improvement of bicarb 14, anion gap improved to 16, creatinine improved to 5.48. CT of the head did not demonstrate any acute pathology. Chest x-ray did not demonstrate any acute pathology, but showed low lung volumes overall. EKG showed sinus tachycardia with left axis deviation, otherwise no evidence of ischemia. Lactic acid improved to 4.3 Case was discussed with our service and patient was admitted to the inpatient floor for further evaluation. Patient's mentation improved with IVF and improvement in kidney dysfunction as well as with anti-epileptic therapy. EEG showed diffuse slowing with no focal epileptiform activity. MR Brain showed bilateral white matter changes which could represent chronic microvessel ischemia or PRES. Neurology consulted on care and facilitated management. Assessment: New-onset seizure Metabolic encephalopathy Acute kidney injury superimposed on chronic kidney disease stage IIIB Lactic acidosis with high anion gap metabolic acidosis History multiple myeloma Pancytopenia History of pulmonary embolism Plan: Today, patient is afebrile, 100/59, HR 78, 97% on 2L NC CBC, BMP, Mg is pending today. MR Brain shows white matter changes which could represent chronic microvessel ischemia or PRES CBC, BMP, Mg ordered for tomorrow Nephrology note reviewed, placed on bicarb gtt, no need for BUTCHER HELPER, repeat labs, add hydralazine PRN and clonidine for BP control Continue keppra 1000 mg every 12 hours Normal saline was replaced with D5W with bicarb at 80cc/hr Oncology was consulted, pending I consulted palliative care, pending Patient is full code DVT prophylaxis is covered with home Apixiban dosing Objective - Vital Signs Vital signs: Vital Signs Temp 98.0 F 12/30/22 19:57 Pulse 78 12/31/22 03:32 Resp 14 12/31/22 03:32 BP 100/59 12/31/22 03:32 Pulse Ox 97 12/31/22 03:32 FiO2 Intake & Output 12/30/22 12/31/22 12/31/22 18:59 06:59 18:59 Intake Total 360 Output Total 654 400 Balance -294 -400 Weight 88 kg 87.5 kg Intake: Oral 360 Output: Urine 550 400 Post Void Residual 104 Other: Voiding Method External Catheter External Catheter # Voids 1 # Bowel Movements 1 - Labs CBC & Chem 7: 12/30/22 06:19 12/30/22 06:19
[2022-12-31 09:27] LABS: Albumin 2.6 g/dL (3.5-5.0); Calcium 8.6 mg/dL (8.4-10.2); Potassium 3.9 mmol/L (3.5-5.1); Total Bilirubin 0.3 mg/dL (0.2-1.3); Total Protein 8.2 g/dL (6.3-8.2)
--- NOTE | 2022-12-31 10:26 | P.PN ---
Subjective Progress Note Date: 12/31/22 The patient is a 67 year old male with a past medical history of multiple myeloma with metastasis to bone, s/p chemotherapy, stem cell transplant, and immunotherapy. He also has a history of vertebral fractures,CAD, hyperlipidemia, PE (on Eliquis), and CKD stage IIIB. The patient also has had a recent 7 day admission at [facility] for aspiration pneumonia. He presented to the emergency department on 12/29/22 with altered mental status and new onset seizures. He has been more tired and weak the for the last couple days per his . The patient's witnessed some seizure like activity and states that he did not appear to be breathing well on his own. She initiated CPR. His first episode of seizure seemed to resolve while EMS was on the way, then patient had a second episode. Patient subsequently brought into the hospital to be evaluated and had a witnessed seizure in the emergency room as well. In the emergency room, patient was afebrile, 159/119, heart rate 112, 96% on room air. CBC showed anemia to 10.8, platelets of 168, white blood cell count 10.4; patient is historically pancytopenic and so these were felt to represent hemoconcentrated labs. Initial basic metabolic panel demonstrated a bicarb of 7 with an anion gap of 30, BUN of 98, creatinine of 6.7, baseline creatinine is 2.5-3. Liver function tests demonstrated a total protein of 10.6. Troponin is 0.012. Lactic acid is 12. UA showed 1+ protein, trace blood, rare mucus. Urine tox screen is positive for oxycodone, otherwise remaining illicit drugs were undetected. Alcohol level is less than 10. Influenza A, B, RSV, Covid were negative. Coags are unremarkable. Patient was given 2 L of normal saline boluses by the emergency room physician as well as started on 130 mL per hour of normal saline. He was given 2 g of Keppra as well as 4 g of Ativan for seizure- like activity that was witnessed in the emergency room. Arterial blood gas and repeat basic metabolic panel was completed, results showed pH of 7.25, pCO2 of 34, pO2 of 172. Basic metabolic panel results showed improvement of bicarb 14, anion gap improved to 16, creatinine improved to 5.48. CT of the head did not demonstrate any acute pathology. Chest x-ray did not demonstrate any acute pathology, but showed low lung volumes overall. EKG showed sinus tachycardia with left axis deviation, otherwise no evidence of ischemia. Lactic acid improved to 4.3. 12/29 A EEG was completed which was abnormal. The background slowing is s uggestive of severe encephalopathy. Otherwise, there is no focal slowing, epileptiform disccharge, or seizure on EEG. MRi of brain pending. 12/30 The patient is lying in bed and is quite lethargic and occasionally restless. He wakes up with physical and verbal stimulation and will answer some questions with one word answers. He has difficulty staying awake. Information regarding palliative care philosophies and services was provided. His , Blossom, is at the bedside. Education provided regarding the patient's metastatic multiple myeloma. The patient is more debilitated than he was in April. He has had a decrease in his function and requires more assistance with his ADL's. His also reports a decrease in appetite, stating he is not eating well. She states he occasionally coughs after eating/drinking. Education provided regarding a swallow evaluation by [employer]TER[employer] APPLICATIONS MANAGER. It was also stressed that the patient must be awake enough to swallow properly. Blossom states that the patient wants to keep fighting. He is a patient of Dr. Browning and was supposed to start a new chemo treatment on . Concern was expressed regarding whether the patient was strong enough to withstand chemo and has a poor prognosis given his functional status. Blossom states that she is aware of her husbands wishes and they are not willing to give up. They hope the patient will get strong enough to go home and start his new chemo regimen to extend his life expectancy. She states their son, Eddi, has quit his job and lives with them to help care for him. Code status addressed and explained in detail. The patient's would like him to remain a full code at this time. Will continue to follow patient and support family. Objective - Vital Signs Vital signs: Vital Signs Temp 98.0 F 12/30/22 19:57 Pulse 78 12/31/22 03:32 Resp 14 12/31/22 03:32 BP 100/59 12/31/22 03:32 Pulse Ox 97 12/31/22 03:32 FiO2 Intake & Output 12/30/22 12/31/22 12/31/22 18:59 06:59 18:59 Intake Total 360 354 Output Total 654 400 Balance -294 -400 354 Weight 88 kg 87.5 kg Intake: Oral 360 354 Output: Urine 550 400 Post Void Residual 104 Other: Voiding Method External Catheter External Catheter # Voids 1 # Bowel Movements 1 - Exam General: Well developed, well nourished. No acute distress. Chronically ill appearing HEENT: Head is atraumatic, normocephalic. Sclera are clear. Mucus membranes dry. CV: Heart regular in rate and rhythm positive S1 and S2. Lungs: Respirations even and nonlabored. On 2L NC. Abdomen/GI: Soft, nondistended, nontender. : No suprapubic tenderness. External catheter in place with clear yellow urine Musculoskeletal/ Extremities: No gross atrophy or contractures. + generalized weakness Skin: Warm, and dry Neurologic: Awake, alert and oriented times 3. CN II-XII grossly intact. No focal deficits. Psychiatric: Appropriate mood and affect. 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 Patient is a 1:1 fed * Constipation - No * Incontinence - Yes, has external catheter with clear yellow urine present * Itch - No * Cough - Occasional dry cough Plan: Summary/Goals - The patient is awake and alert this morning. He is oriented x 3 and able to answer all questions appropriately. He was able to drink his ensure and eat part of his magic cup this morning. He reports having 8/10 back pain. He was informed that he has pain medication available and was encouraged to ask for it when needed. His , Blossom is present. She spoke to their son last night and decided it would be beneficial for the patient to go to rehab. They realize that he is weaker than he has been in the past. He will get more aggressive PT at rehab. Updated home health care social worker. PT/OT consulted for evaluation and treatment. The patient understands that he is unable to start his new chemotherapy while in rehab. His goal is to get strong enough to go home and continue with aggressive treatment for his multiple myeloma. Recommendation - Rehab with palliative care Advanced Directives - No, information provided Code Status - Full Code Thank you for this consultation Samantha Monroy [facility]- Palliative Care Spectralink [id number] Email: [email or web address]
[2022-12-31] MEDS: ACYCLOVIR 200 MG CAP PO SCH ×2 (10:46→20:23)
[2022-12-31] MEDS: SODIUM BICARBONATE TAB 650 MG TAB PO SCH ×2 (10:46→20:23)
[2022-12-31] MEDS: APIXABAN 2.5 MG TABLET PO SCH ×2 (10:46→20:23)
--- NOTE | 2022-12-31 10:58 | P.PN ---
Subjective Patient is seen for follow-up for acute kidney injury, mostly prerenal currently improving with IV hydration. Serum creatinine has improved to 3.8 from 6.7 on initial admission. Currently maintained on bicarb drip with improvement in metabolic acidosis. Appetite remains poor however oral intake is slightly improved. Objective - Vital Signs Vital signs: Vital Signs Temp 98.0 F 12/31/22 08:00 Pulse 85 12/31/22 08:00 Resp 18 12/31/22 08:00 BP 105/61 12/31/22 08:00 Pulse Ox 99 12/31/22 08:00 FiO2 Intake & Output 12/30/22 12/31/22 12/31/22 18:59 06:59 18:59 Intake Total 360 354 Output Total 654 400 Balance -294 -400 354 Weight 88 kg 87.5 kg Intake: Oral 360 354 Output: Urine 550 400 Post Void Residual 104 Other: Voiding Method External Catheter External Catheter # Voids 1 # Bowel Movements 1 - Exam Patient is awake, comfortable, no acute distress. Alert oriented 3 Examination of the heart S1 and S2 Examination of the lungs bilateral breath sounds are heard Abdomen is soft nontender Examination of lower extremity shows no evidence of edema [employer]PER[employer]MENT[employer]UCATION exam shows patient is moving all 4 extremities. - Labs CBC & Chem 7: 12/30/22 06:19 12/31/22 08:38 Labs: Abnormal Lab Results - Last 24 Hours (Table) 12/31/22 Range/Units 08:38 Chloride 114 H (98-107) mmol/L BUN 96 H (9-20) mg/dL Creatinine 3.84 H (0.66-1.25) mg/dL Glucose 116 H (74-99) mg/dL Albumin 2.6 L (3.5-5.0) g/dL Assessment and Plan Assessment: 1. Acute kidney injury, nonoliguric, most likely ATN currently improving. Element of volume depletion also present. Continue with IV fluids. Since renal function has improved we will hold off on hemodialysis. 2. New onset seizure, Current CAT scan shows no abnormalities. Being followed by neurology 3. CK D stage III be secondary to multiple myeloma with baseline creatinine ar ound 1.7-1.9 mg/dL 4. Anion gap metabolic acidosis associated with acute kidney injury and lactic acidosis currently improved 5. Hypertension, currently not able to take by mouth medications 6. Multiple myeloma with lytic lesions in the rib Plan: Continue IV fluids , switch to Ringer lactate Add hydralazine IV for blood pressure control and add clonidine patch as patient is not able to take oral medications. DC clonidine patch as blood pressure has improved No need to proceed with renal replacement therapy Repeat labs in a.m. Avoid nephrotoxic agents
[2022-12-31 11:14] LABS: Free Kappa Lt Chain Qnt, Urine 0.06 mg/dL (0.00-3.29); Free Lambda Lt Chain Qt, Urine 37.74 mg/dL (0.00-0.38)
--- NOTE | 2022-12-31 12:53 | P.PN ---
Subjective Progress Note Date: 12/31/22 The patient and is sitting in the chair accompanied by his and family members and they feel the patient is doing better compared to initial presentation. No further seizures. Objective - Vital Signs Vital signs: Vital Signs Temp 98.0 F 12/31/22 08:00 Pulse 85 12/31/22 08:00 Resp 18 12/31/22 08:00 BP 105/61 12/31/22 08:00 Pulse Ox 99 12/31/22 08:00 FiO2 Intake & Output 12/30/22 12/31/22 12/31/22 18:59 06:59 18:59 Intake Total 360 354 Output Total 654 400 Balance -294 -400 354 Weight 88 kg 87.5 kg Intake: Oral 360 354 Output: Urine 550 400 Post Void Residual 104 Other: Voiding Method External Catheter External Catheter # Voids 1 # Bowel Movements 1 - Exam GENERAL: The patient is sitting in a recliner chair and is not in acute distress. NEUROLOGICAL: Limited because of cooperation. Higher mental function: The patient is awake, alert, oriented to self. He stated he was at [facility]. He stated the year is 2023 and the month is February. He is following simple commands but some slow. He is able to identify objects (pen and watch). No neglect. Language is limited but no clear aphasia. Cranial nerves: Pupils are round, equal and reactive to light. EOM is tracking throughout the room. No facial weakness. No dyarhtria. Motor: The strength is limited but lifting upper and lowers above gravity and no focality. Some other workup during his hospital visit consisted of So far the patient is afebrile White Blood cell is tempered 10.4K Ammonia is 11. Urine drug screen is positive for oxycodone SARS coV2 PCR, Influenza A/B and RSV is not detected. CT head is reported as no acute intracranial processes or significant change from prior. I personally reviewed CT and agree there is no acute or subacute ischemia. Routine EEG: Is abnormal. The background slowing is suggestive of severe encephalopathy. Otherwise there is no focal slowing, epileptiform discharges or seizure in the EEG MRI the brain is reported as no MRI evidence for recent infarct. Mild to moderate diffuse cerebral atrophy with nonspecific moderate to severe superiorly symmetrical-appearing white matter changes as detailed above. Differential includes posterior reversible encephalopathy syndrome (PRES). Other etiologies are not excluded include metabolic processes. PML is in differential. Symmetrical appearance would argue against metastatic involvement on noncontrast MRI. I personally reviewed MRI Brain and agree with report. Possibly it seems more PRES. - Labs CBC & Chem 7: 12/30/22 06:19 12/31/22 08:38 Labs: Abnormal Lab Results - Last 24 Hours (Table) 12/30/22 12/31/22 Range/Units 16:53 08:38 Chloride 114 H (98-107) mmol/L BUN 96 H (9-20) mg/dL Creatinine 3.84 H (0.66-1.25) mg/dL Glucose 116 H (74-99) mg/dL Albumin 2.6 L (3.5-5.0) g/dL U Free Lambda Light Ch 37.74 H (0.00-0.38) mg/dL Assessment and Plan Assessment: New onset seizure (had two seizures one at home and one in ED. On MRI has possible posterior reversible encephalopathy syndrome (PRES) and I feel due to possible seizure and hypertension. His mentation is improving and no further seizure. I feel unlikely PML since mentation improving. Lactic acidosis why hypocarpnia due to above Recent aspiration pneumonia about 2 weeks ago History of left facial twitching and myoclonic jerks---prior EEG were negative for seizure. As well prior MRI Brain was negative. History of multiple myeloma and has received chemotherapy and pending to receive different chemotherapy History of pulmonary embolism on eliquis History of T12 fracture with multiple vertebral fracture due to multiple myeloma History of coronary artery disease Dyslipidemia Plan: * Continue Keppra 750mg every 12 hours (was not on antiseizure medication prior). * MRI the brain is reported as no MRI evidence for recent infarct. Mild to mo derate diffuse cerebral atrophy with nonspecific moderate to severe superiorly symmetrical-appearing white matter changes as detailed above. Differential includes posterior reversible encephalopathy syndrome (PRES). Other etiologies are not excluded include metabolic processes. PML is in differen tial. Symmetrical appearance would argue against metastatic involvement on noncontrast MRI. I personally reviewed MRI Brain and agree with report. Possibly it seems more PRES. I feel due to possible seizure and hypertension. His mentation is improving and no further seizure. I feel unlikely PML since mentation improving. * Recommend MRI Brain w/ gabbie once kidney improves. Also recommend follow-up MRI Brain as outpatient within 4 weeks to assess if any improvement of PRES changes. * On seizure precaution and pad. * Oncology is consulted. * Will defer the rest of medical management to primary team. * Palliative care is consulted. * Recommend patient to follow-up with neurologist as outpatient within 1-2 weeks The plan is discussed with patient's (who is at bedside) and his mother and sister who are at bedside. Plan is discussed with primary team. Otherwise no other neurological work-up. Time with Patient: Less than 30
--- NOTE | 2022-12-31 15:36 | P.PN ---
Subjective Progress Note Date: 12/31/22 Principal diagnosis: seizure, hx of MM Upon visit today, pt is resting comfortably in bed. at bedside. Pt reports feeling better today. He is more alert today. A & O x 2, disorientated to time. He reports lower back pain. No other reported complaints at this time. Objective - Vital Signs Vital signs: Vital Signs Temp 98.0 F 12/31/22 08:00 Pulse 85 12/31/22 08:00 Resp 18 12/31/22 08:00 BP 105/61 12/31/22 08:00 Pulse Ox 99 12/31/22 08:00 FiO2 Intake & Output 12/30/22 12/31/22 12/31/22 18:59 06:59 18:59 Intake Total 360 591 Output Total 654 400 500 Balance -294 -400 91 Weight 88 kg 87.5 kg Intake: Oral 360 591 Output: Urine 550 400 500 Post Void Residual 104 Other: Voiding Method External Catheter External Catheter # Voids 1 1 # Bowel Movements 1 - Constitutional General appearance: Present: average body habitus, no acute distress - EENT Eyes: Present: anicteric sclerae, EOMI ENT: Present: hearing grossly normal - Respiratory Details: breathing is even and unlabored - Cardiovascular Details: skin is warm and dry - Integumentary Integumentary: Present: pale - Neurologic Neurologic Comment(s): generalized weakness, strength in upper and lower extremities equal, no focal deficits - Musculoskeletal Musculoskeletal: Present: generalized weakness - Psychiatric Psychiatric Comment(s): A&Ox 2, disorientated to time Psychiatric: Present: appropriate affect, intact judgment & insight - Labs CBC & Chem 7: 12/30/22 06:19 12/31/22 08:38 Labs: Abnormal Lab Results - Last 24 Hours (Table) 12/30/22 12/31/22 Range/Units 16:53 08:38 Chloride 114 H (98-107) mmol/L BUN 96 H (9-20) mg/dL Creatinine 3.84 H (0.66-1.25) mg/dL Glucose 116 H (74-99) mg/dL Albumin 2.6 L (3.5-5.0) g/dL U Free Lambda Light Ch 37.74 H (0.00-0.38) mg/dL Assessment and Plan (1) New onset seizure Current Visit: Yes Status: Acute Priority: High Code(s): R56.9 - UNSPECIFIED CONVULSIONS SNOMED Code(s): 31054021 (2) DUNCAN (acute kidney injury) Current Visit: Yes Status: Acute Priority: High Code(s): N17.9 - ACUTE KIDNEY FAILURE, UNSPECIFIED SNOMED Code(s): 13075430 (3) Multiple myeloma Current Visit: Yes Status: Chronic Priority: High Code(s): C90.00 - MULTIPLE MYELOMA NOT HAVING ACHIEVED REMISSION SNOMED Code(s): 090723989 Plan: DUNCAN: -Hx of CKD. Baseline creatinine typically in 1.7-2.5 range. Upon admission creatinine 6.7. Today 3.84, gradually improving. DUNCAN likely related to poor oral intake/dehydration with history of underlying CKD -Nephrology plans for continued hydration. No plan for dialysis at this time, as kidney function continues to improve. Seizure: -No hx seziures. He was started on keppra. Seizure may have been due to dehydration, DUNCAN with underlying CKD, and progressing myeloma, resulting in a uremic seizure -CT brain negative for acute intracranial process. EEG showed background slowing, suggestive of severe encephalopathy. -Showing continued improvement in mentation. More alert today -Neurology following Multiple Myeloma: -Currently has received 7 cycles of kyprolis, last cycle on 11/25/22. -Due to evidence of disease progression, and triple refractory disease, kyprolis and promalyst was discontinued. Plan for patient to start cytoxan/velcade/dex regimen while awaiting evaluation by Dr. Gambino at [facility] for possible treatment with bispecific antibodies vs CAR-T cell therapy. F/u with Dr. Gambino scheduled for 01/07 -24 hour urine lambda/kappa light chains and protein electrophoresis pending -MRI brain showed moderate to severe superior symmetric appearing white matter changes. Symmetric appearance would argue against metastatic involvement. Differential includes PRES, metabolic processes, and PML. -Will plan for outpatient reevaluation once patient recovers before starting next chemo regimen. Plan is for patient to go to rehab upon discharge. states she will call office to make appt once she gets a better idea of timeline of rehab and discharge.
[2022-12-31] MEDS: CHOLECALCIFEROL 25 MCG (1000 IU) TABLET PO SCH ×2 (17:51→17:54)
[2022-12-31] MEDS: CALCIUM CARB-VIT D 500 MG-5 MCG TAB PO SCH ×2 (17:51→17:54)
[2023-01-01] MEDS: DEXTROSE 5% IN WATER 1,000 ML with SODIUM BICARB (1 MEQ/ML) 100 ML IV SCH ×2 (06:38→06:39)
[2023-01-01] MEDS: APIXABAN 2.5 MG TABLET PO SCH ×2 (08:24→21:27)
[2023-01-01] MEDS: ACYCLOVIR 200 MG CAP PO SCH ×2 (08:24→21:27)
[2023-01-01] MEDS: SODIUM BICARBONATE TAB 650 MG TAB PO SCH ×2 (08:24→21:27)
[2023-01-01 09:24] LABS: Anisocytosis Slight; Basophils % (A) 1 %; Eosinophils # (A) 0.1 k/uL (0-0.7); Eosinophils % (A) 5 %; HCT 21.5 % (39.0-53.0); Hypochromasia Slight; Lymphocytes # (A) 0.1 k/uL (1.0-4.8); Lymphocytes % (A) 6 %; MCH 31.9 pg (25.0-35.0); MCHC 33.1 g/dL (31.0-37.0); MCV 96.2 fL (80.0-100.0); Macrocytosis Slight; Mean Platelet Volume 9.3; Monocytes # (A) 0.2 k/uL (0-1.0); Monocytes % (A) 9 %; Neutrophils # (A) 1.8 k/uL (1.3-7.7); Neutrophils % (A) 79 %; RBC 2.23 m/uL (4.30-5.90); RDW 18.1 % (11.5-15.5); WBC 2.3 k/uL (3.8-10.6)
[2023-01-01 09:37] LABS: HGB 7.1 gm/dL (13.0-17.5); Platelet Count 72 k/uL (150-450)
[2023-01-01 09:47] LABS: Calcium 8.3 mg/dL (8.4-10.2); Magnesium 1.7 mg/dL (1.6-2.3)
[2023-01-01 09:49] LABS: Potassium 4.2 mmol/L (3.5-5.1)
[2023-01-01 10:30] VITALS: BMI 26.9
[2023-01-01 14:04] VITALS: RESP 18
--- NOTE | 2023-01-01 14:56 | P.PN ---
Subjective Progress Note Date: 01/01/23 The patient is a 67 year old male with a past medical history of multiple myeloma with metastasis to bone, s/p chemotherapy, stem cell transplant, and immunotherapy. He also has a history of vertebral fractures,CAD, hyperlipidemia, PE (on Eliquis), and CKD stage IIIB. The patient also has had a recent 7 day admission at [facility] for aspiration pneumonia. He presented to the emergency department on 12/29/22 with altered mental status and new onset seizures. He has been more tired and weak the for the last couple days per his . The patient's witnessed some seizure like activity and states that he did not appear to be breathing well on his own. She initiated CPR. His first episode of seizure seemed to resolve while EMS was on the way, then patient had a second episode. Patient subsequently brought into the hospital to be evaluated and had a witnessed seizure in the emergency room as well. In the emergency room, patient was afebrile, 159/119, heart rate 112, 96% on room air. CBC showed anemia to 10.8, platelets of 168, white blood cell count 10.4; patient is historically pancytopenic and so these were felt to represent hemoconcentrated labs. Initial basic metabolic panel demonstrated a bicarb of 7 with an anion gap of 30, BUN of 98, creatinine of 6.7, baseline creatinine is 2.5-3. Liver function tests demonstrated a total protein of 10.6. Troponin is 0.012. Lactic acid is 12. UA showed 1+ protein, trace blood, rare mucus. Urine tox screen is positive for oxycodone, otherwise remaining illicit drugs were undetected. Alcohol level is less than 10. Influenza A, B, RSV, Covid were negative. Coags are unremarkable. Patient was given 2 L of normal saline boluses by the emergency room physician as well as started on 130 mL per hour of normal saline. He was given 2 g of Keppra as well as 4 g of Ativan for seizure- like activity that was witnessed in the emergency room. Arterial blood gas and repeat basic metabolic panel was completed, results showed pH of 7.25, pCO2 of 34, pO2 of 172. Basic metabolic panel results showed improvement of bicarb 14, anion gap improved to 16, creatinine improved to 5.48. CT of the head did not demonstrate any acute pathology. Chest x-ray did not demonstrate any acute pathology, but showed low lung volumes overall. EKG showed sinus tachycardia with left axis deviation, otherwise no evidence of ischemia. Lactic acid improved to 4.3. 12/29 A EEG was completed which was abnormal. The background slowing is s uggestive of severe encephalopathy. Otherwise, there is no focal slowing, epileptiform disccharge, or seizure on EEG. MRi of brain pending. 12/30 The patient is lying in bed and is quite lethargic and occasionally restless. He wakes up with physical and verbal stimulation and will answer some questions with one word answers. He has difficulty staying awake. Information regarding palliative care philosophies and services was provided. His , Blossom, is at the bedside. Education provided regarding the patient's metastatic multiple myeloma. The patient is more debilitated than he was in April. He has had a decrease in his function and requires more assistance with his ADL's. His also reports a decrease in appetite, stating he is not eating well. She states he occasionally coughs after eating/drinking. Education provided regarding a swallow evaluation by NEUROLOGY EPILEPSY PHYSICIAN. It was also stressed that the patient must be awake enough to swallow properly. Blossom states that the patient wants to keep fighting. He is a patient of Dr. Browning and was supposed to start a new chemo treatment on . Concern was expressed regarding whether the patient was strong enough to withstand chemo and has a poor prognosis given his functional status. Blossom states that she is aware of her husbands wishes and they are not willing to give up. They hope the patient will get strong enough to go home and start his new chemo regimen to extend his life expectancy. She states their son, Eddi, has quit his job and lives with them to help care for him. Code status addressed and explained in detail. The patient's would like him to remain a full code at this time. Will continue to follow patient and support family. 12/31 The patient is awake and alert this morning. He is oriented x 3 and able to answer all questions appropriately. He was able to drink his ensure and eat part of his magic cup this morning. He reports having 8/10 back pain. He was informed that he has pain medication available and was encouraged to ask for it when needed. His , Blossom is present. She spoke to their son last night and decided it would be beneficial for the patient to go to rehab. They realize rivka t he is weaker than he has been in the past. He will get more aggressive PT at rehab. Updated care team coordinator scheduler. PT/OT consulted for evaluation and treatment. The patient understands that he is unable to start his new chemotherapy while in rehab. His goal is to get strong enough to go home and continue with aggressive treatment for his multiple myeloma. Objective - Vital Signs Vital signs: Vital Signs Temp 98.0 F 01/01/23 07:57 Pulse 65 01/01/23 12:00 Resp 18 01/01/23 14:00 BP 92/67 01/01/23 12:00 Pulse Ox 95 01/01/23 12:00 FiO2 Intake & Output 12/31/22 01/01/23 01/01/23 18:59 06:59 18:59 Intake Total 828 358 Output Total 500 1100 400 Balance 328 -1100 -42 Weight 87.5 kg Intake: Oral 828 358 Output: Urine 500 1100 400 Other: Voiding Method External Catheter # Voids 1 # Bowel Movements 1 - Exam General: Well developed, well nourished. No acute distress. Chronically ill appearing HEENT: Head is atraumatic, normocephalic. Sclera are clear. Mucus membranes dry. CV: Heart regular in rate and rhythm positive S1 and S2. Lungs: Respirations even and nonlabored. On RA Abdomen/GI: Soft, nondistended, nontender. : No suprapubic tenderness. External catheter in place with clear yellow urine Musculoskeletal/ Extremities: No gross atrophy or contractures. + generalized weakness Skin: Warm, and dry Neurologic: CN II-XII grossly intact. No focal deficits. Psychiatric: Appropriate mood and affect. - Labs CBC & Chem 7: 01/01/23 08:24 01/01/23 08:24 Labs: Abnormal Lab Results - Last 24 Hours (Table) 01/01/23 01/01/23 Range/Units 08:24 08:24 WBC 2.3 L (3.8-10.6) k/uL RBC 2.23 L (4.30-5.90) m/uL Hgb 7.1 L D (13.0-17.5) gm/dL Hct 21.5 L (39.0-53.0) % RDW 18.1 H (11.5-15.5) % Plt Count 72 L (150-450) k/uL Lymphocytes # 0.1 L (1.0-4.8) k/uL BUN 81 H (9-20) mg/dL Creatinine 3.18 H (0.66-1.25) mg/dL Calcium 8.3 L (8.4-10.2) mg/dL Assessment and Plan Assessment: Symptoms * Pain - 6/10 back pain, Continue PRN Oxycodone and Neurotin * Fatigue - Yes, generalized weakness and fatigue, PT/OT eval and treat * SOB - No * Insomnia - No * N/V - No * Anxiety - Licensed Psychologist * Depression - DAMEON * Confusion - Yes - improving * Agitation - No * Hallucinations - No * Appetite/weight loss - decreased appetite, added Ensure supplements and magic cups * Dysphagia -Continue Level dysphagia diet, per NEUROLOGY EPILEPSY PHYSICIAN recommendation. Patient is a 1:1 fed * Constipation - No, LBM 3 * Incontinence - Yes, has external catheter with clear yellow urine present * Itch - No * Cough - Occasional dry cough Plan: Summary/Goals - The patient is sleeping. His is at the bedside. She report that the patient's confusion has almost completely resolved. He is drinking all of his ensure and some of his magic cup. He was able to ambulate out in the hallway with walker and PT. The states the plan is for him to go to rehab for a couple weeks, go home, and then resume chemotherapy. Recommendation - Rehab with palliative care Advanced Directives - No, information provided Code Status - Full Code Thank you for this consultation Samantha Monroy [facility] Palliative [facility] [place]ink [phone] Email: [email or web address]
--- NOTE | 2023-01-01 15:24 | P.PN ---
Subjective Progress Note Date: 01/01/23 59-year-old man with medical history multiple myeloma with bone metastases and pancytopenia, chronic kidney disease stage IIIB, history of pulmonary embolism on Apixiban presented for evaluation after witnessed seizure. In the emergency room, patient was afebrile, 159/119, heart rate 112, 96% on room air. CBC showed anemia to 10.8, platelets of 168, white blood cell count 10.4; patient is historically pancytopenic and so these were felt to represent hemoconcentrated labs. Initial basic metabolic panel demonstrated a bicarb of 7 with an anion gap of 30, BUN of 98, creatinine of 6.7, baseline creatinine is 2.5-3. Liver function tests demonstrated a total protein of 10.6. Troponin is 0.012. Lactic acid is 12. UA showed 1+ protein, trace blood, rare mucus. Urine tox screen is positive for oxycodone, otherwise remaining Alesse drugs were undetected. Alcohol level is less than 10. Influenza A, B, RSV, Covid were negative. Coags are unremarkable. Patient was given 2 L of normal saline boluses by the emergency room physician as well as started on 130 mL per hour of normal saline. He was given 2 g of Keppra as well as 4 g of Ativan for seizure-like activity that was witnessed in the emergency room. Arterial blood gas and repeat basic metabolic panel was completed, results showed pH of 7.25, pCO2 of 34, pO2 of 172. Basic metabolic panel results showed improvement of bicarb 14, anion gap improved to 16, creatinine improved to 5.48. CT of the head did not demonstrate any acute pathology. Chest x-ray did not demonstrate any acute pathology, but showed low lung volumes overall. EKG showed sinus tachycardia with left axis deviation, otherwise no evidence of ischemia. Lactic acid improved to 4.3 Case was discussed with our service and patient was admitted to the inpatient floor for further evaluation. Patient's mentation improved with IVF and improvement in kidney dysfunction as well as with anti-epileptic therapy. EEG showed diffuse slowing with no focal epileptiform activity. MR Brain showed bilateral white matter changes which could represent chronic microvessel ischemia or PRES. Neurology consulted on care and facilitated management. Patient seen and examined this morning. No acute events overnight. Patient reports generally feeling well. His is at bedside. He denies any complaints. General: non toxic, no distress, appears at stated age Derm: warm, dry Head: atraumatic, normocephalic, symmetric Eyes: EOMI, no lid lag, anicteric sclera Mouth: no lip lesion, mucus membranes moist Cardiovascular: S1S2 reg, no murmur Lungs: CTA bilateral, no rhonchi, no rales , no accessory muscle use Ext: no gross muscle atrophy, no edema, no contractures Neuro: no focal neuro deficits Psych: Alert, oriented, appropriate affect , slow to respond #Pancytopenia #New-onset seizure #Metabolic encephalopathy #Acute kidney injury superimposed on chronic kidney disease stage IIIB #Lactic acidosis with high anion gap metabolic acidosis #History multiple myeloma #Pancytopenia #History of pulmonary embolism Based on my assessment of this patient, this patient meets a moderate complexity level of care. I have reviewed the following customer experience consultant notes: Palliative care note 01/01, rehab with palliative care, FULL CODE. I have reviewed the results of the following tests: CBC shows WBC count of 2.3, hemoglobin 7.1, platelet count of 72. BMP shows BUN of 81, creatinine of 3.18, calcium of 8.3. I have ordered the following tests: CBC ordered for tomorrow morning. BMP ordered for tomorrow morning. I have discussed the care of this patient with the following independent historian: Case was discussed with his who stated the patient's mentation is back to baseline. I have independently interpreted the following test below: None. I have discussed the management of this patient with the following physician: None. This patient has a moderate risk of morbidity due to the following reasons: Patient is admitted for new onset seizure likely secondary to uremia from DUNCAN on CKD. His renal function has been improving and is almost at baseline. PT and OT has evaluated the patient and recommends SNF. His hemoglobin has been downtrending from 10.8 on admission to 7.1 today. Due to the acute drop in hemoglobin which I believe is dilutional, I will repeat his CBC tomorrow morning. Anticipated discharge to SNF if hemoglobin remains stable. Objective - Vital Signs Vital signs: Vital Signs Temp 98.0 F 01/01/23 07:57 Pulse 65 01/01/23 12:00 Resp 18 01/01/23 14:00 BP 92/67 01/01/23 12:00 Pulse Ox 95 01/01/23 12:00 FiO2 Intake & Output 12/31/22 01/01/23 01/01/23 18:59 06:59 18:59 Intake Total 828 358 Output Total 500 1100 400 Balance 328 -1100 -42 Weight 87.5 kg Intake: Oral 828 358 Output: Urine 500 1100 400 Other: Voiding Method External Catheter # Voids 1 # Bowel Movements 1 - Labs CBC & Chem 7: 01/01/23 08:24 01/01/23 08:24 Labs: Abnormal Lab Results - Last 24 Hours (Table) 01/01/23 01/01/23 Range/Units 08:24 08:24 WBC 2.3 L (3.8-10.6) k/uL RBC 2.23 L (4.30-5.90) m/uL Hgb 7.1 L D (13.0-17.5) gm/dL Hct 21.5 L (39.0-53.0) % RDW 18.1 H (11.5-15.5) % Plt Count 72 L (150-450) k/uL Lymphocytes # 0.1 L (1.0-4.8) k/uL BUN 81 H (9-20) mg/dL Creatinine 3.18 H (0.66-1.25) mg/dL Calcium 8.3 L (8.4-10.2) mg/dL
--- NOTE | 2023-01-01 17:11 | P.PN ---
Subjective Patient is seen for follow-up for acute kidney injury, mostly prerenal currently improving with IV hydration. Serum creatinine has improved to 3.1 from 6.7 on initial admission. Currently maintained on IVF Appetite is better and oral intake is improved. Sitting up in a chair today. Objective - Vital Signs Vital signs: Vital Signs Temp 98.0 F 01/01/23 07:57 Pulse 65 01/01/23 12:00 Resp 18 01/01/23 14:00 BP 92/67 01/01/23 12:00 Pulse Ox 95 01/01/23 12:00 FiO2 Intake & Output 12/31/22 01/01/23 01/01/23 18:59 06:59 18:59 Intake Total 828 358 Output Total 500 1100 400 Balance 328 -1100 -42 Weight 87.5 kg Intake: Oral 828 358 Output: Urine 500 1100 400 Other: Voiding Method External Catheter # Voids 1 # Bowel Movements 1 - Exam Patient is awake, comfortable, no acute distress. Alert oriented 3 Examination of the heart S1 and S2 Examination of the lungs bilateral breath sounds are heard Abdomen is soft nontender Examination of lower extremity shows no evidence of edema TUNNEL MAN exam shows patient is moving all 4 extremities. - Labs CBC & Chem 7: 01/01/23 08:24 01/01/23 08:24 Labs: Abnormal Lab Results - Last 24 Hours (Table) 01/01/23 01/01/23 Range/Units 08:24 08:24 WBC 2.3 L (3.8-10.6) k/uL RBC 2.23 L (4.30-5.90) m/uL Hgb 7.1 L D (13.0-17.5) gm/dL Hct 21.5 L (39.0-53.0) % RDW 18.1 H (11.5-15.5) % Plt Count 72 L (150-450) k/uL Lymphocytes # 0.1 L (1.0-4.8) k/uL BUN 81 H (9-20) mg/dL Creatinine 3.18 H (0.66-1.25) mg/dL Calcium 8.3 L (8.4-10.2) mg/dL Assessment and Plan Assessment: 1. Acute kidney injury, nonoliguric, most likely ATN currently improving. Element of volume depletion also present. Continue with IV fluids. 2. New onset seizure, Current CAT scan shows no abnormalities. Being followed by neurology 3. CK D stage III be secondary to multiple myeloma with baseline creatinine around 1.7-1.9 mg/dL 4. Anion gap metabolic acidosis associated with acute kidney injury and lactic acidosis currently improved 5. Hypertension, BP has improved, clonidine discontinued. 6. Multiple myeloma with lytic lesions in the rib 7. Anemia, multifactorial, no active bleeding noted. Plan: Continue IV fluids Continue to encourage increased intake. Add aranesp
[2023-01-01] MEDS: CALCIUM CARB-VIT D 500 MG-5 MCG TAB PO SCH (17:41)
[2023-01-01] MEDS: CHOLECALCIFEROL 25 MCG (1000 IU) TABLET PO SCH (17:41)
[2023-01-01] MEDS ORDERED: DARBEPOETIN ALFA 60 MCG/0.3 ML SYRINGE SQ SCH (18:00)
[2023-01-02 07:44] LABS: Anisocytosis Slight; HCT 21.3 % (39.0-53.0); HGB 7.1 gm/dL (13.0-17.5); Hypochromasia Slight; MCH 32.1 pg (25.0-35.0); MCHC 33.3 g/dL (31.0-37.0); MCV 96.3 fL (80.0-100.0); Macrocytosis Slight; Mean Platelet Volume 9.9; RBC 2.21 m/uL (4.30-5.90); RDW 18.2 % (11.5-15.5); WBC 2.5 k/uL (3.8-10.6)
[2023-01-02 07:58] LABS: Platelet Count 72 k/uL (150-450)
[2023-01-02 09:31] VITALS: BP 89/53; PULSE 74; TEMP 97.3
[2023-01-02] MEDS: APIXABAN 2.5 MG TABLET PO SCH (09:32)
[2023-01-02] MEDS: SODIUM BICARBONATE TAB 650 MG TAB PO SCH (09:32)
[2023-01-02] MEDS: ACYCLOVIR 200 MG CAP PO SCH (09:32)
--- NOTE | 2023-01-02 11:15 | P.PN ---
Subjective Progress Note Date: 01/02/23 Principal diagnosis: seizure, hx of MM Upon visit today, pt is resting comfortably in bed. at bedside. Pt reports feeling well today. He is more alert today. A & O x 3. states he has bee working with PT and is ambulate in the hallways. Plan is for inpatient rehab, No reported complaints at this time. Objective - Vital Signs Vital signs: Vital Signs Temp 97.3 F L 01/02/23 08:00 Pulse 74 01/02/23 08:00 Resp 18 01/02/23 08:00 BP 89/53 01/02/23 08:00 Pulse Ox 98 01/02/23 08:00 FiO2 Intake & Output 01/01/23 01/02/23 01/02/23 18:59 06:59 18:59 Intake Total 358 360 Output Total 800 400 750 Balance -442 -400 -390 Weight 87.5 kg Intake: Oral 358 360 Output: Urine 800 400 750 Other: Voiding Method External Catheter # Bowel Movements 1 1 - Constitutional General appearance: Present: average body habitus, no acute distress - EENT Eyes: Present: anicteric sclerae, EOMI ENT: Present: hearing grossly normal - Respiratory Details: breathing is even and unlabored - Cardiovascular Details: skin warm and dry - Integumentary Integumentary: Present: pale - Neurologic Neurologic Comment(s): grossly intact - Musculoskeletal Musculoskeletal: Present: generalized weakness - Psychiatric Psychiatric: Present: A&O x's 3, appropriate affect, intact judgment & insight - Labs CBC & Chem 7: 01/02/23 07:17 01/01/23 08:24 Labs: Abnormal Lab Results - Last 24 Hours (Table) 01/02/23 Range/Units 07:17 WBC 2.5 L (3.8-10.6) k/uL RBC 2.21 L (4.30-5.90) m/uL Hgb 7.1 L (13.0-17.5) gm/dL Hct 21.3 L (39.0-53.0) % RDW 18.2 H (11.5-15.5) % Plt Count 72 L (150-450) k/uL Assessment and Plan (1) New onset seizure Current Visit: Yes Status: Acute Priority: High Code(s): R56.9 - UNSPECIFIED CONVULSIONS SNOMED Code(s): 64342030 (2) DUNCAN (acute kidney injury) Current Visit: Yes Status: Acute Priority: High Code(s): N17.9 - ACUTE KIDNEY FAILURE, UNSPECIFIED SNOMED Code(s): 38137435 (3) Multiple myeloma Current Visit: Yes Status: Chronic Priority: High Code(s): C90.00 - MULTIPLE MYELOMA NOT HAVING ACHIEVED REMISSION SNOMED Code(s): 543261156 Plan: DUNCAN: -Hx of CKD. Baseline creatinine typically in 1.7-2.5 range. Upon admission creatinine 6.7. Improving daily. DUNCAN likely related to poor oral intake/dehydration with history of underlying CKD -Nephrology plans for continued hydration. No plan for dialysis at this time, as kidney function continues to improve. Seizure: -No hx seziures. He was started on keppra. Seizure may have been due to dehydration, DUNCAN with underlying CKD, and progressing myeloma, resulting in a uremic seizure -CT brain negative for acute intracranial process. EEG showed background slowing, suggestive of severe encephalopathy. -Showing continued improvement in mentation. More alert today -Neurology following Multiple Myeloma: -Currently has received 7 cycles of kyprolis, last cycle on 11/25/22. -Due to evidence of disease progression, and triple refractory disease, kyprolis and promalyst was discontinued. Plan for patient to start cytoxan/velcade/dex regimen while awaiting evaluation by Dr. Gambino at [facility] for possible treatment with bispecific antibodies vs CAR-T cell therapy. F/u with Dr. Gambino scheduled for 01/07 -24 hour urine lambda LC 37.74, Scissors 0.06, Urine PEP, monoclonal portein present as IgG lambda and monoclonal Lambda LC. -MRI brain showed moderate to severe superior symmetric appearing white matter changes. Symmetric appearance would argue against metastatic involvement. Differential includes PRES, metabolic processes, and PML. -Will plan for outpatient reevaluation once patient recovers before starting next chemo regimen. Plan is for patient to go to rehab upon discharge. states she will call office to make appt once she gets a better idea of timeline of rehab and discharge.
[2023-01-02 11:17] LABS: Potassium 4.2 mmol/L (3.5-5.1)
[2023-01-02 11:18] LABS: Calcium 8.3 mg/dL (8.4-10.2)
--- NOTE | 2023-01-02 13:23 | P.DS ---
Providers Date of admission: 12/29/22 11:48 Expected date of discharge: 01/02/23 Attending physician: Michael Peck MD Consults: 12/29/22 11:46 Consult Physician Routine Consulting Provider: Lamont Rivera Consult Reason/Comments: new onset seizure Do you want consulting provider notified?: Yes 12/29/22 13:03 Consult Physician Routine Consulting Provider: Shawn Browning Consult Reason/Comments: Multiple myeloma Do you want consulting provider notified?: Yes 12/29/22 13:27 Consult to Palliative Care Routine Consulting Provider: Samantha Monroy Consult Reason/Comments: multiple myeloma Do you want consulting provider notified?: Yes 12/30/22 09:16 Consult Physician Routine Consulting Provider: Sienna Aguilar Consult Reason/Comments: Progressive RI Do you want consulting provider notified?: Yes Primary care physician: [facility] Hospital Course: 67-year-old man with medical history multiple myeloma with bone metastases and pancytopenia, chronic kidney disease stage IIIB, history of pulmonary embolism on Apixiban presented for evaluation after witnessed seizure. In the emergency room, patient was afebrile, 159/119, heart rate 112, 96% on room air. CBC showed anemia to 10.8, platelets of 168, white blood cell count 10.4; patient is historically pancytopenic and so these were felt to represent hemoconcentrated labs. Initial basic metabolic panel demonstrated a bicarb of 7 with an anion gap of 30, BUN of 98, creatinine of 6.7, baseline creatinine is 2.5-3. Liver function tests demonstrated a total protein of 10.6. Troponin is 0.012. Lactic acid is 12. UA showed 1+ protein, trace blood, rare mucus. Urine tox screen is positive for oxycodone, otherwise remaining illicit drugs were undetected. Alcohol level is less than 10. Influenza A, B, RSV, Covid were negative. Coags are unremarkable. Patient was given 2 L of normal saline boluses by the emergency room physician as well as started on 130 mL per hour of normal saline. He was given 2 g of Keppra as well as 4 g of Ativan for seizure-like activity that was witnessed in the emergency room. Arterial blood gas and repeat basic metabolic panel was completed, results showed pH of 7.25, pCO2 of 34, pO2 of 172. Basic metabolic panel results showed improvement of bicarb 14, anion gap improved to 16, creatinine improved to 5.48. CT of the head did not demonstrate any acute pathology. Chest x-ray did not demonstrate any acute pathology, but showed low lung volumes overall. EKG showed sinus tachycardia with left axis deviation, otherwise no evidence of ischemia. Lactic acid improved to 4.3 Case was discussed with our service and patient was admitted to the inpatient floor for further evaluation. Patient's mentation improved with IVF and improvement in kidney dysfunction as well as with anti-epileptic therapy. EEG showed diffuse slowing with no focal epileptiform activity. MR Brain showed bilateral white matter changes which could represent chronic microvessel ischemia or PRES. Neurology consulted on care and facilitated management. Neurology recommended continuing Keppra 750 mg by mouth twice a day. His renal function came back to baseline with IV hydration. He did have a downtrending hemoglobin which is thought to be dilutional. His hemoglobin on the day of discharge was 7.1. Patient seen and examined this morning. No acute events overnight. Patient reports generally feeling well. His is at bedside. He denies any complaints. Patient be discharged home with the following instructions: Diet: NDD3 Chopped with 1:1 supervision Follow up with your Oncologist within 1 week of discharge. Follow up with Nephrology within 1 week of discharge. Follow up with Neurology within 1 week of discharge. Per [place] law, you can not drive or operate heavy machinery for the next 6 months. Repeat CBC and BMP in 3 days. Follow up results with your PCP. He is to hold his chemotherapy medications until he is out of rehab and follow- up with oncology. Pertinent studies include brain CT, chest x-ray, EEG, brain MRI. General: non toxic, no distress, appears at stated age Derm: warm, dry Head: atraumatic, normocephalic, symmetric Eyes: EOMI, no lid lag, anicteric sclera Mouth: no lip lesion, mucus membranes moist Cardiovascular: S1S2 reg, no murmur Lungs: CTA bilateral, no rhonchi, no rales , no accessory muscle use Ext: no gross muscle atrophy, no edema, no contractures Neuro: no focal neuro deficits Psych: Alert, oriented, appropriate affect , slow to respond Discharge diagnosis: #Pancytopenia #New-onset seizure #Metabolic encephalopathy #Acute kidney injury superimposed on chronic kidney disease stage IIIB #Lactic acidosis with high anion gap metabolic acidosis #History multiple myeloma #Pancytopenia #History of pulmonary embolism This complex discharge took 35 minutes to complete. Patient Condition at Discharge: Stable Plan - Discharge Summary Discharge Rx Participant: Yes New Discharge Prescriptions: New levETIRAcetam [Keppra] 750 mg PO Q12HR tab Continue Sodium Bicarbonate Tab 650 mg PO BID Cholecalciferol [Vitamin D3 (25 Mcg = 1000 Iu)] 25 mcg PO PC-SUPPER Calcium Carbonate [Calcium] 600 mg PO PC-SUPPER Acyclovir [Zovirax] 400 mg PO BID Apixaban [Eliquis] 2.5 mg PO BID Gabapentin 300 mg PO TID #9 cap oxyCODONE HCL [oxyCODONE HCL (IR)] 10 mg PO Q4H PRN #18 tab PRN Reason: Pain Discontinued Pomalyst 3mg Capsule 3 mg PO DIRECTED dexAMETHasone [Decadron] 20 mg PO DIRECTED Discharge Medication List Acyclovir [Zovirax] 400 mg PO BID 07/07/22 [History] Apixaban [Eliquis] 2.5 mg PO BID 11/30/22 [History] Calcium Carbonate [Calcium] 600 mg PO PC-SUPPER 11/30/22 [History] Cholecalciferol [Vitamin D3 (25 Mcg = 1000 Iu)] 25 mcg PO PC-SUPPER 11/30/22 [History] Sodium Bicarbonate Tab 650 mg PO BID 11/30/22 [History] Gabapentin 300 mg PO TID #9 cap 01/02/23 [Rx] levETIRAcetam [Keppra] 750 mg PO Q12HR tab 01/02/23 [Rx] oxyCODONE HCL [oxyCODONE HCL (IR)] 10 mg PO Q4H PRN #18 tab 01/02/23 [Rx] Follow up Appointment(s)/Referral(s): Sienna Aguilar MD [STAFF PHYSICIAN] - 1 Week Elkin Pierson MD [Primary Care Provider] - 1 Week Liliana Lopez MD [REFERRING] - 1 Week Shawn Browning MD [STAFF PHYSICIAN] - 1 Week Ambulatory/Diagnostic Orders: Basic Metabolic Panel [LAB.AMB] Time Frame: 3 Days, Location: None Selected Complete Blood Count w/diff [LAB.AMB] Time Frame: 3 Days, Location: None Selected Patient Instructions/Handouts: Seizure/Epilepsy Discharge Instructions & Follow-Up Activity/Diet/Wound Care/Special Instructions: Diet: NDD3 Chopped with 1:1 supervision Follow up with your Oncologist within 1 week of discharge. Follow up with Nephrology within 1 week of discharge. Follow up with Neurology within 1 week of discharge. Per [place] law, you can not drive or operate heavy machinery for the next 6 months. Repeat CBC and BMP in 3 days. Follow up results with your PCP. Discharge Disposition: TRANSFER TO SNF/ECF
--- NOTE | 2023-01-02 15:26 | P.PN ---
Subjective Patient is seen for follow-up for acute kidney injury, mostly prerenal currently improving with IV hydration. Serum creatinine has improved to 3.1 from 6.7 on initial admission. Currently maintained on IVF Appetite is better and oral intake is improved. Objective - Vital Signs Vital signs: Vital Signs Temp 97.3 F L 01/02/23 08:00 Pulse 74 01/02/23 08:00 Resp 18 01/02/23 14:00 BP 89/53 01/02/23 08:00 Pulse Ox 98 01/02/23 08:00 FiO2 Intake & Output 01/01/23 01/02/23 01/02/23 18:59 06:59 18:59 Intake Total 358 840 Output Total 155 862 1090 Balance -442 -400 -210 Weight 87.5 kg Intake: Oral 358 840 Output: Urine 389 723 9640 Other: Voiding Method External Catheter # Bowel Movements 1 1 - Exam Patient is awake, comfortable, no acute distress. Alert oriented 3 Examination of the heart S1 and S2 Examination of the lungs bilateral breath sounds are heard Abdomen is soft nontender Examination of lower extremity shows no evidence of edema [employer] exam shows patient is moving all 4 extremities. - Labs CBC & Chem 7: 01/02/23 07:17 01/02/23 07:17 Labs: Abnormal Lab Results - Last 24 Hours (Table) 01/02/23 01/02/23 Range/Units 07:17 07:17 WBC 2.5 L (3.8-10.6) k/uL RBC 2.21 L (4.30-5.90) m/uL Hgb 7.1 L (13.0-17.5) gm/dL Hct 21.3 L (39.0-53.0) % RDW 18.2 H (11.5-15.5) % Plt Count 72 L (150-450) k/uL Sodium 136 L (137-145) mmol/L BUN 68 H (9-20) mg/dL Creatinine 3.40 H (0.66-1.25) mg/dL Calcium 8.3 L (8.4-10.2) mg/dL Assessment and Plan Assessment: 1. Acute kidney injury, nonoliguric, most likely ATN currently improving. Element of volume depletion also present. 2. New onset seizure, Current CAT scan shows no abnormalities. Being followed by neurology 3. CK D stage III be secondary to multiple myeloma with baseline creatinine around 1.7-1.9 mg/dL 4. Anion gap metabolic acidosis associated with acute kidney injury and lactic acidosis currently improved 5. Hypertension, BP has improved, clonidine discontinued. 6. Multiple myeloma with lytic lesions in the rib 7. Anemia, multifactorial, no active bleeding noted. Plan: OK to discharge patient. Continue to encourage increased oral intake. Repeat labs as op in 2-3 days. F/u in office in 1 week.
== END 2023-01-02 17:20 | DRG 100 ==
LOC: EC 09:22 → 3SCARD 11:48
PROVIDERS: ADMIT Internal Medicine; ATTEND Internal Medicine
PROC: 4A10X4Z Monitoring of Central Nervous Electrical Activity, External Approach (ICD-10-PCS; principal; 2022-12-29)
DX: R56.9 Unspecified convulsions (principal); G93.41 Metabolic encephalopathy; N17.0 Acute kidney failure with tubular necrosis; I67.83 Posterior reversible encephalopathy syndrome; C90.00 Multiple myeloma not having achieved remission; D61.818 Other pancytopenia; E87.20 Acidosis, unspecified; Z94.84 Stem cells transplant status; Z20.822 Contact with and (suspected) exposure to COVID-19; N18.32 Chronic kidney disease, stage 3b; E86.0 Dehydration; F32.A Depression, unspecified; G47.00 Insomnia, unspecified; I25.10 Atherosclerotic heart disease of native coronary artery without angina pectoris; G62.9 Polyneuropathy, unspecified; G89.29 Other chronic pain; I12.9 Hypertensive chronic kidney disease with stage 1 through stage 4 chronic kidney disease, or unspecified chronic kidney disease; M54.50 Low back pain, unspecified; Z86.711 Personal history of pulmonary embolism; Z87.01 Personal history of pneumonia (recurrent); Z79.01 Long term (current) use of anticoagulants; Z79.899 Other long term (current) drug therapy; Z92.3 Personal history of irradiation; Z92.21 Personal history of antineoplastic chemotherapy; Z88.2 Allergy status to sulfonamides; Z88.1 Allergy status to other antibiotic agents; E78.5 Hyperlipidemia, unspecified; Z51.5 Encounter for palliative care
CPT/HCPCS: 36415; 36600; 51702; 70450; 70551; 71046; 80048; 80053; 80306; 80320; 81001; 82140; 82805; 83605; 83735; 83883; 84145; 84166; 84484; 85025; 85027; 85610; 85730; 87636; 93005; 95816; 96361; 96365; 96375; 99291

== ENCOUNTER 2023-01-06 21:58 | Emergency (ER) | payer MEDICARE, BC ==
[2023-01-06 22:08] VITALS: RESP 16; TEMP 98.1
[2023-01-06 22:56] LABS: Anisocytosis Slight; Basophils % (A) 0 %; Eosinophils # (A) 0.1 k/uL (0-0.7); Eosinophils % (A) 2 %; HCT 21.5 % (39.0-53.0); HGB 7.2 gm/dL (13.0-17.5); Lymphocytes # (A) 0.3 k/uL (1.0-4.8); Lymphocytes % (A) 8 %; MCH 31.5 pg (25.0-35.0); MCHC 33.4 g/dL (31.0-37.0); MCV 94.4 fL (80.0-100.0); Macrocytosis Slight; Mean Platelet Volume 8.5; Monocytes # (A) 0.2 k/uL (0-1.0); Monocytes % (A) 4 %; Neutrophils # (A) 3.3 k/uL (1.3-7.7); Neutrophils % (A) 83 %; RBC 2.28 m/uL (4.30-5.90); RDW 18.2 % (11.5-15.5); WBC 3.9 k/uL (3.8-10.6)
[2023-01-06 23:07] LABS: Calcium 9.7 mg/dL (8.4-10.2)
[2023-01-06 23:10] LABS: Total Protein 10.2 g/dL (6.3-8.2)
[2023-01-06 23:11] LABS: Albumin 3.1 g/dL (3.5-5.0); Magnesium 1.8 mg/dL (1.6-2.3); Potassium 4.9 mmol/L (3.5-5.1); Total Bilirubin 0.9 mg/dL (0.2-1.3)
[2023-01-06 23:12] LABS: Platelet Count 70 k/uL (150-450)
--- NOTE | 2023-01-06 23:44 | ED ---
General Adult HPI - General Chief complaint: Recheck/Abnormal Lab/Rx Stated complaint: Anemia Time Seen by Provider: 01/06/23 22:07 Source: patient, EMS Mode of arrival: EMS Limitations: no limitations - History of Present Illness Initial comments: This is a 67-year-old male with a past medical history including multiple myeloma presents emergency department via EMS from his nursing facility for downtrending hemoglobin. The patient was sent in for further evaluation and possible blood transfusion. The patient himself denied any acute pain or distre ss and did state that he had an appointment at 8:30 in the morning for oncology and possible new chemotherapy. The patient stated that he was sent and only to be evaluated for the labs and denied of any acute pain or bleeding noted. The patient was resting in bed comfortably and denied any other acute pain or distress. - Related Data Home Medications Medication Instructions Recorded Confirmed Acyclovir [Zovirax] 400 mg PO BID 07/07/22 12/29/22 Apixaban [Eliquis] 2.5 mg PO BID 11/30/22 12/29/22 Calcium Carbonate [Calcium] 600 mg PO PC-SUPPER 11/30/22 12/29/22 Cholecalciferol [Vitamin D3 (25 25 mcg PO PC-SUPPER 11/30/22 12/29/22 Mcg = 1000 Iu)] Sodium Bicarbonate Tab 650 mg PO BID 11/30/22 12/29/22 Previous Rx's Medication Instructions Recorded Gabapentin 300 mg PO TID #9 cap 01/02/23 levETIRAcetam [Keppra] 750 mg PO Q12HR tab 01/02/23 oxyCODONE HCL [oxyCODONE HCL (IR)] 10 mg PO Q4H PRN #18 tab 01/02/23 Allergies Allergy/AdvReac Type Severity Reaction Status Date / Time sulfamethoxazole Allergy Rash/Hives Verified 12/29/22 10:58 [From Bactrim] trimethoprim [From Bactrim] Allergy Rash/Hives Verified 12/29/22 10:58 Review of Systems ROS Statement: Those systems with pertinent positive or pertinent negative responses have been documented in the HPI. ROS Other: All systems not noted in ROS Statement are negative. 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, gait dysfunction-uses walker, bilateral pedal/ankle edema, PE 08/2019, chronic low back pain, past vertebral fractures, minimal CAD, shingelles twice, past R heel wound, elevated lipids in the past, History of Any Multi-Drug Resistant Organisms: None Reported Past Surgical History: Heart Catheterization, Orthopedic Surgery Additional Past Surgical History / Comment(s): excision of uvular lesion(benign) 2009, colonoscopy, dave knee arthroscopy, rt rotator cuff sx, moles removed from back(benign), bone marrow aspiration/bx, stem cell transplant 2015, Past Anesthesia/Blood Transfusion Reactions: No Reported Reaction Past Psychological History: No Psychological Hx Reported Smoking Status: Former smoker Past Alcohol Use History: None Reported Past Drug Use History: None Reported - Past Family History Father Family Medical History: Renal Disease, Vascular Disorder Additional Family Medical History / Comment(s): aaa. Father is . Mother Family Medical History: No Reported History Additional Family Medical History / Comment(s): mom is healthy General Exam Limitations: no limitations General appearance: alert, in no apparent distress Head exam: Present: atraumatic, normocephalic, normal inspection Eye exam: Present: normal appearance, PERRL Pupils: Present: normal accommodation ENT exam: Present: normal exam, normal oropharynx, mucous membranes moist Neck exam: Present: normal inspection, full ROM Respiratory exam: Present: normal lung sounds bilaterally Cardiovascular Exam: Present: regular rate, normal rhythm, normal heart sounds GI/Abdominal exam: Present: soft, normal bowel sounds Extremities exam: Present: normal inspection, full ROM Back exam: Present: normal inspection, full ROM Neurological exam: Present: alert, oriented X3, CN II-XII intact Psychiatric exam: Present: normal affect, normal mood Skin exam: Present: warm, dry Course Vital Signs 01/06/23 22:03 Temperature 98.1 F Pulse Rate 75 Respiratory 16 Rate Blood Pressure 121/72 O2 Sat by Pulse 99 Oximetry EKG Findings - EKG Comments: EKG Findings:: An EKG was obtained and was interpreted by myself showing a rate of 71, MS interval 197, QRS duration of 107 and QTC of 442. This EKG showed a normal sinus rhythm with no ST segment elevation or depression noted. Medical Decision Making - Medical Decision Making Was pt. sent in by a medical professional or institution (, [facility], [facility]ON[facility]ER, urgent care, hospital, or assisted...) When possible be specific @ -Yes, nursing facility and Dr. Hankins at the facility Did you speak to anyone other than the patient for history (EMS, parent, family, police, friend...)? What history was obtained from this source @ -Yes, patient's at bedside Did you review nursing and triage notes (agree or disagree)? Why? @ -I reviewed and agree with nursing and triage notes Were old charts reviewed (outside hosp., previous admission, EMS record, old EKG, old radiological studies, urgent care reports/EKG's, assisted records)? Report findings @ -Yes, from the rehabilitation Center and labs from there were reviewed Differential Diagnosis (chest pain, altered mental status, abdominal pain women, abdominal pain men, vaginal bleeding, weakness, fever, dyspnea, syncope, headache, dizziness, GI bleed, back pain, seizure, CVA, palpatations, mental health)? @ -Acute anemia, pancytopenia, GI bleed EKG interpreted by me (3pts min.). @ -As above X-rays interpreted by me (1pt min.). @ -None done CT interpreted by me (1pt min.). @ -None done U/S interpreted by me (1pt. min.). @ -None done What testing was considered but not performed or refused? (CT, X-rays, U/S, labs)? Why? @ -Computed tomography scan chest x-ray were considered however the patient was having no pain or distress therefore no further imaging was obtained What meds were considered but not given or refused? Why? @ -None Did you discuss the management of the patient with other professionals (professionals i.e. , [facility]ST[facility], BONDERIZER, lab, RT, psych nurse, secondary social studies teacher, window treatment installer, teacher, senior vice president and chief information officer, upper caser)? Give summary @ -Yes, Latoya Jorgensen, covering for Dr. Hankins, and was informed that the patient will be discharged back to the nursing facility to follow-up with his scheduled appointment tomorrow. Was smoking cessation discussed for >3mins.? @ -No Was critical care preformed (if so, how long)? @ -No Were there social determinants of health that impacted care today? How? (Homelessness, low income, unemployed, alcoholism, drug addiction, transportation, low edu. Level, literacy, decrease access to med. care, retirement, rehab)? @ -No Was there de-escalation of care discussed even if they declined (Discuss DNR or withdrawal of care, Hospice)? DNR status @ -No What co-morbidities impacted this encounter? (DM, HTN, Smoking, COPD, CAD, Cancer, CVA, ARF, Chemo, Hep., AIDS, mental health diagnosis, sleep apnea, morbid obesity)? @ -Chronic anemia and pancytopenia secondary to multiple myeloma Was patient admitted / discharged? Hospital course, mention meds given and route, prescriptions, significant lab abnormalities, going to OR and other pertinent info. @ -The patient was seen and evaluated in the emergency department. Physical exam, the patient was resting in bed without any acute distress. Vital signs admission were stable. Laboratory workup was obtained and showed a hemoglobin of 7.2 which is consistent with his previous hemoglobin levels and was not d owntrending. The nursing facility did state that the patient had multiple blood draws with a hemoglobin of 6.4 and 6.1. Because the patient did not need an active transfusion currently, the patient did not need to be admitted to the hospital at this time. The covering provider for Dr. Hankins was called to relay this message. It was agreed upon between myself, the provider and the patient and his to discharge the patient back to the nursing facility to follow-up with the appointment tomorrow morning at 8:30. The patient, his were agreeable to this plan and all other questions were answered appropriately. The patient was discharged back to his nursing facility via EMS in stable condition. Undiagnosed new problem with uncertain prognosis? @ -No Drug Therapy requiring intensive monitoring for toxicity (Heparin, Nitro, Ins ulin, Cardizem)? @ -No Were any procedures done? @ -No Diagnosis/symptom? @ -Chronic anemia secondary to multiple trauma, at baseline Acute, or Chronic, or Acute on Chronic? @ -Chronic Uncomplicated (without systemic symptoms) or Complicated (systemic symptoms)? @ -Uncomplicated Side effects of treatment? @ -No Exacerbation, Progression, or Severe Exacerbation? @ -No Poses a threat to life or bodily function? How? (Chest pain, USA, MD, pneumonia, PE, COPD, DKA, ARF, appy, cholecystitis, CVA, Diverticulitis, Homicidal, Suicidal, threat to staff... and all critical care pts) @ -No - Lab Data Result diagrams: 01/06/23 22:30 01/06/23 22:30 Lab Results 01/06/23 01/06/23 01/06/23 Range/Units 22:30 22:30 22:30 WBC 3.9 (3.8-10.6) k/uL RBC 2.28 L (4.30-5.90) m/uL Hgb 7.2 L (13.0-17.5) gm/dL Hct 21.5 L (39.0-53.0) % MCV 94.4 (80.0-100.0) fL MCH 31.5 (25.0-35.0) pg MCHC 33.4 (31.0-37.0) g/dL RDW 18.2 H (11.5-15.5) % Plt Count 70 L (150-450) k/uL MPV 8.5 Neutrophils % 83 % Lymphocytes % 8 % Monocytes % 4 % Eosinophils % 2 % Basophils % 0 % Neutrophils # 3.3 (1.3-7.7) k/uL Lymphocytes # 0.3 L (1.0-4.8) k/uL Monocytes # 0.2 (0-1.0) k/uL Eosinophils # 0.1 (0-0.7) k/uL Basophils # 0.0 (0-0.2) k/uL Anisocytosis Slight Macrocytosis Slight Sodium 133 L (137-145) mmol/L Potassium 4.9 (3.5-5.1) mmol/L Chloride 101 (98-107) mmol/L Carbon Dioxide 23 (22-30) mmol/L Anion Gap 9 mmol/L BUN 39 H (9-20) mg/dL Creatinine 3.57 H (0.66-1.25) mg/dL Est GFR (CKD-EPI)AfAm 19 (>60 ml/min/1.73 sqM) Est GFR (CKD-EPI)NonAf 17 (>60 ml/min/1.73 sqM) Glucose 82 (74-99) mg/dL Calcium 9.7 (8.4-10.2) mg/dL Magnesium 1.8 (1.6-2.3) mg/dL Total Bilirubin 0.9 (0.2-1.3) mg/dL AST 62 H (17-59) U/L ALT 29 (4-49) U/L Alkaline Phosphatase 66 (38-126) U/L Total Protein 10.2 H (6.3-8.2) g/dL Albumin 3.1 L (3.5-5.0) g/dL Lipase 179 (23-300) U/L Blood Type A Positive Blood Type Recheck A Pos Bld Type Recheck Status No Antibody Screen NEGATIVE Spec Expiration Date 01/09/20232329 Disposition Clinical Impression: Low hemoglobin, Multiple myeloma Disposition: HOME SELF-CARE Condition: Stable Instructions (If sedation given, give patient instructions): Anemia (ED) Is patient prescribed a controlled substance at d/c from ED?: No Referrals: Anders Hankins MD [Primary Care Provider] - 1-2 days Time of Disposition: 23:30
[2023-01-07 03:59] VITALS: BP 118/78; PULSE 68
== END 2023-01-07 02:00 | disposition home or self-care (01) ==
LOC: EC 21:58
DX: D64.9 Anemia, unspecified (principal); C90.00 Multiple myeloma not having achieved remission; I25.10 Atherosclerotic heart disease of native coronary artery without angina pectoris; Z86.711 Personal history of pulmonary embolism; Z87.891 Personal history of nicotine dependence; Z88.2 Allergy status to sulfonamides; Z79.01 Long term (current) use of anticoagulants; Z79.899 Other long term (current) drug therapy
CPT/HCPCS: 36415; 80053; 83690; 83735; 85025; 86850; 86900; 86901; 99285

== ENCOUNTER 2023-01-08 18:13 | Inpatient (IN) | payer MEDICARE, BC ==
[2023-01-08 19:46] LABS: Anisocytosis Slight; Basophils % (A) 0 %; Eosinophils % (A) 1 %; HCT 21.4 % (39.0-53.0); HGB 7.1 gm/dL (13.0-17.5); Lymphocytes # (A) 0.6 k/uL (1.0-4.8); Lymphocytes % (A) 14 %; MCH 31.4 pg (25.0-35.0); MCHC 33.1 g/dL (31.0-37.0); MCV 94.9 fL (80.0-100.0); Macrocytosis Slight; Mean Platelet Volume 8.1; Monocytes # (A) 0.2 k/uL (0-1.0); Monocytes % (A) 4 %; Neutrophils # (A) 3.1 k/uL (1.3-7.7); Neutrophils % (A) 77 %; RBC 2.25 m/uL (4.30-5.90); RDW 17.8 % (11.5-15.5)
[2023-01-08 19:51] LABS: Albumin 2.9 g/dL (3.5-5.0); Potassium 4.5 mmol/L (3.5-5.1); Total Bilirubin 0.7 mg/dL (0.2-1.3); Total Protein 10.3 g/dL (6.3-8.2)
[2023-01-08] MEDS ORDERED: SODIUM CHLORIDE 0.9% 1,800 ML IV ONE (20:05)
[2023-01-08] MEDS ORDERED: ACETAMINOPHEN TAB 325 MG TAB PO STA (20:05)
--- NOTE | 2023-01-08 20:11 | XR ---
EXAMINATION TYPE: XR chest 2V DATE OF EXAM: 01/08/2023 COMPARISON: 12/29/2022 HISTORY: Fever TECHNIQUE: FINDINGS: There is poor inspiration. There is increased density over the right upper lobe apparently from callus formation and healing fracture of the right sixth rib. The other lung acevedo are clear. N o pleural effusion. Heart size is normal. Thoracic aorta is atheromatous. IMPRESSION: Poor inspiration similar to old exam. Healing rib fracture. No pulmonary consolidation or heart failu re.
[2023-01-08 20:49] LABS: Platelet Count 68 k/uL (150-450); Rouleaux Present
--- NOTE | 2023-01-08 21:14 | ED ---
Fever HPI - General Chief Complaint: Fever Stated Complaint: fever Time Seen by Provider: 01/08/23 18:18 Source: family, EMS Mode of arrival: EMS - History of Present Illness Initial Comments: This patient is a 67-year-old man who arrives here to have evaluation of fever. The patient had been in usual state of health until this morning. He then was noted by his to be having a little bit of shaking tremor. He also developed nausea and vomited after starting to take his lunch. A little after that they noticed that he did have fever and he was transferred here to have evaluation. Patient complaining of fatigue. He denies pain. MD Complaint: fever -: hour(s) Associated Symptoms: rigors - Related Data Home Medications Medication Instructions Recorded Confirmed Acyclovir [Zovirax] 400 mg PO BID 07/07/22 01/08/23 Apixaban [Eliquis] 2.5 mg PO BID 11/30/22 01/08/23 Calcium Carbonate [Calcium] 600 mg PO HS 11/30/22 01/08/23 Cholecalciferol [Vitamin D3 (25 25 mcg PO DAILY 11/30/22 01/08/23 Mcg = 1000 Iu)] Sodium Bicarbonate Tab 650 mg PO BID 11/30/22 01/08/23 Gabapentin 300 mg PO HS 01/08/23 01/08/23 levETIRAcetam [Keppra] 750 mg PO BID 01/08/23 01/08/23 Previous Rx's Medication Instructions Recorded oxyCODONE HCL [oxyCODONE HCL (IR)] 10 mg PO Q4H PRN #18 tab 01/02/23 Allergies Allergy/AdvReac Type Severity Reaction Status Date / Time sulfamethoxazole Allergy Rash/Hives Verified 01/08/23 19:02 [From Bactrim] trimethoprim [From Bactrim] Allergy Rash/Hives Verified 01/08/23 19:02 Review of Systems ROS Statement: Those systems with pertinent positive or pertinent negative responses have been documented in the HPI. ROS Other: All systems not noted in ROS Statement are negative. Constitutional: Reports: fever, chills, weakness Respiratory: Reports: cough. Denies: dyspnea, wheezes Cardiovascular: Denies: chest pain Gastrointestinal: Reports: nausea, vomiting. 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, gait dysfunction-uses walker, bilateral pedal/ankle edema, PE 08/2019, chronic low back pain, past vertebral fractures, minimal CAD, shingelles twice, past R heel wound, elevated lipids in the past, History of Any Multi-Drug Resistant Organisms: None Reported Past Surgical History: Heart Catheterization, Orthopedic Surgery Additional Past Surgical History / Comment(s): excision of uvular lesion(benign) 2009, colonoscopy, dave knee arthroscopy, rt rotator cuff sx, moles removed from back(benign), bone marrow aspiration/bx, stem cell transplant 2015, Past Anesthesia/Blood Transfusion Reactions: No Reported Reaction Past Psychological History: No Psychological Hx Reported Smoking Status: Former smoker Past Alcohol Use History: None Reported Past Drug Use History: None Reported - Past Family History Father Family Medical History: Renal Disease, Vascular Disorder Additional Family Medical History / Comment(s): aaa. Father is . Mother Family Medical History: No Reported History Additional Family Medical History / Comment(s): mom is healthy General Exam General appearance: alert, in no apparent distress Head exam: Present: atraumatic, normocephalic Eye exam: Present: normal appearance. Absent: scleral icterus, conjunctival injection Neck exam: Present: normal inspection, full ROM. Absent: meningismus Respiratory exam: Present: normal lung sounds bilaterally. Absent: respiratory distress, wheezes, rales, rhonchi, stridor Cardiovascular Exam: Present: regular rate, normal rhythm, normal heart sounds. Absent: systolic murmur, diastolic murmur, rubs, gallop GI/Abdominal exam: Present: soft. Absent: distended, tenderness, guarding, rebound, rigid, mass Extremities exam: Present: normal inspection, normal capillary refill. Absent: pedal edema, calf tenderness Back exam: Present: normal inspection. Absent: CVA tenderness (R), CVA tenderness (L) Neurological exam: Present: alert Skin exam: Present: warm, dry, intact, normal color. Absent: rash Course Vital Signs 01/08/23 01/08/23 01/08/23 18:20 19:23 21:16 Temperature 101.8 F H 102.1 F H Pulse Rate 96 101 H Respiratory 20 19 Rate Blood Pressure 166/76 155/76 O2 Sat by Pulse 98 94 L Oximetry 01/08/23 01/09/23 01/09/23 21:48 00:45 01:00 Temperature 99.3 F Pulse Rate 108 H 95 90 Respiratory 20 18 18 Rate Blood Pressure 102/53 106/63 106/63 O2 Sat by Pulse 94 L 96 95 Oximetry 01/09/23 01/09/23 01/09/23 02:00 03:00 04:00 Temperature Pulse Rate 88 81 Respiratory 17 18 Rate Blood Pressure 103/61 96/60 95/62 O2 Sat by Pulse 96 94 L 96 Oximetry 01/09/23 01/09/23 01/09/23 07:26 10:31 14:00 Temperature 97.7 F Pulse Rate 80 78 82 Respiratory 18 18 18 Rate Blood Pressure 122/69 126/69 130/72 O2 Sat by Pulse 97 99 Oximetry Medical Decision Making - Medical Decision Making This patient is a 67-year-old man with history of multiple myeloma, transferred here from assisted after she had an episode of vomiting related to lunch, subsequently developed a fever. The workup here does not reveal a definite source of the fever. Patient is given empiric dose of antibiotic and will be ad mitted overnight to see if the fever does declare itself and to see if culture reveals a source. Chest x-ray obtained which I interpret as not showing acute infiltrate, congestive heart failure or pneumothorax Was pt. sent in by a medical professional or institution (, PA, SUPERVISOR PARTICLEBOARD, urgent care, hospital, or assisted...) When possible be specific @ -Patient sent from assisted to have further evaluation for fever Did you speak to anyone other than the patient for history (EMS, parent, family, police, friend...)? What history was obtained from this source @ -[Family Did you review nursing and triage notes (agree or disagree)? Why? @ -[I reviewed and agree with nursing and triage notes] Were old charts reviewed (outside hosp., previous admission, EMS record, old EKG, old radiological studies, urgent care reports/EKG's, assisted records)? Report findings @ -[No old charts were reviewed] Differential Diagnosis (chest pain, altered mental status, abdominal pain women, abdominal pain men, vaginal bleeding, weakness, fever, dyspnea, syncope, headache, dizziness, GI bleed, back pain, seizure, CVA, palpatations, mental health, musculoskeletal)? @ -[Differential Fever: Pneumonia, viral URI, endocarditis, myocarditis, pericarditis, otitis, sinusitis, peritonsillar Abscess, retropharyngeal Abscess, epiglottitis, peritonitis, appendicitis, Alecia cystitis, diverticulitis, hepatitis, colitis, UTI, PID, TOA, pyelonephritis, prostatitis, epididymitis, meningitis, encephalitis, pulmonary embolism, CVA, thyroid storm, pancreatitis, adrenal crisis, cavernous sinus thrombosis, this is not meant to be an all-inclusive list. EKG interpreted by me (3pts min.). @ -[As above] X-rays interpreted by me (1pt min.). @ -[As above CT interpreted by me (1pt min.). @ -[None done] U/S interpreted by me (1pt. min.). @ -[None done] What testing was considered but not performed or refused? (CT, X-rays, U/S, la bs)? Why? @ -[None] What meds were considered but not given or refused? Why? @ -[None] Did you discuss the management of the patient with other professionals (professionals i.e. , PA, SUPERVISOR [employer], lab, RT, psych nurse, social work coordinator, staff software engineer, teacher, international first officer, welfare case worker)? Give summary @ -[Case discussed with admitting physician Was smoking cessation discussed for >3mins.? @ -[No] Was critical care preformed (if so, how long)? @ -[No] Were there social determinants of health that impacted care today? How? (Homelessness, low income, unemployed, alcoholism, drug addiction, transportation, low edu. Level, literacy, decrease access to med. care, penitentiary, rehab)? @ -[No] Was there de-escalation of care discussed even if they declined (Discuss DNR or withdrawal of care, Hospice)? DNR status @ -[No] What co-morbidities impacted this encounter? (DM, HTN, Smoking, COPD, CAD, Cancer, CVA, ARF, Chemo, Hep., AIDS, mental health diagnosis, sleep apnea, morbid obesity)? @ -[Multiple myeloma Was patient admitted / discharged? Hospital course, mention meds given and route, prescriptions, significant lab abnormalities, going to OR and other pertinent info. @ -[The patient is admitted to have further evaluation and treatment for fever with unknown source. Undiagnosed new problem with uncertain prognosis? @ -[No] Drug Therapy requiring intensive monitoring for toxicity (Heparin, Nitro, Insulin, Cardizem)? @ -[No] Were any procedures done? @ -[No] Diagnosis/symptom? @ -[Fever, source unknown, acute Anemia, chronic Thrombocytopenia, chronic Multiple myeloma, chronic Chronic renal failure Acute, or Chronic, or Acute on Chronic? @ -[default] Uncomplicated (without systemic symptoms) or Complicated (systemic symptoms)? @ -[Complicated Side effects of treatment? @ -[No] Exacerbation, Progression, or Severe Exacerbation? @ -[No] Poses a threat to life or bodily function? How? (Chest pain, USA, OR, pneumonia, PE, COPD, DKA, ARF, appy, cholecystitis, CVA, Diverticulitis, Homicidal, Suicidal, threat to staff... and all critical care pts) @ -[Yes, untreated infection may result in sepsis and - Lab Data Result diagrams: 01/15/23 06:18 01/15/23 06:18 Lab Results 01/08/23 01/08/23 01/08/23 Range/Units 19:15 19:15 19:15 WBC 4.0 (3.8-10.6) k/uL RBC 2.25 L (4.30-5.90) m/uL Hgb 7.1 L (13.0-17.5) gm/dL Hct 21.4 L (39.0-53.0) % MCV 94.9 (80.0-100.0) fL MCH 31.4 (25.0-35.0) pg MCHC 33.1 (31.0-37.0) g/dL RDW 17.8 H (11.5-15.5) % Plt Count 68 L (150-450) k/uL MPV 8.1 Neutrophils % 77 % Lymphocytes % 14 % Monocytes % 4 % Eosinophils % 1 % Basophils % 0 % Neutrophils # 3.1 (1.3-7.7) k/uL Lymphocytes # 0.6 L (1.0-4.8) k/uL Monocytes # 0.2 (0-1.0) k/uL Eosinophils # 0.0 (0-0.7) k/uL Basophils # 0.0 (0-0.2) k/uL Manual Slide Review Performed Anisocytosis Slight Macrocytosis Slight Rouleaux Present Sodium 135 L (137-145) mmol/L Potassium 4.5 (3.5-5.1) mmol/L Chloride 104 (98-107) mmol/L Carbon Dioxide 18 L (22-30) mmol/L Anion Gap 13 mmol/L BUN 32 H (9-20) mg/dL Creatinine 4.07 H (0.66-1.25) mg/dL Est GFR (CKD-EPI)AfAm 16 (>60 ml/min/1.73 sqM) Est GFR (CKD-EPI)NonAf 14 (>60 ml/min/1.73 sqM) Glucose 79 (74-99) mg/dL Plasma Lactic Acid Jeromy 1.3 (0.7-2.0) mmol/L Calcium 10.0 (8.4-10.2) mg/dL Total Bilirubin 0.7 (0.2-1.3) mg/dL AST 49 (17-59) U/L ALT 28 (4-49) U/L Alkaline Phosphatase 81 (38-126) U/L Total Protein 10.3 H (6.3-8.2) g/dL Albumin 2.9 L (3.5-5.0) g/dL IgG (700.0-1600.0) mg/dL IgA (60.0-350.0) mg/dL IgM (40.0-280.0) mg/dL Influenza Type A (PCR) (Not Detectd) Influenza Type B (PCR) (Not Detectd) RSV (PCR) (Not Detectd) SARS-CoV-2 (PCR) (Not Detectd) 01/08/23 01/08/23 Range/Units 19:15 19:15 WBC (3.8-10.6) k/uL RBC (4.30-5.90) m/uL Hgb (13.0-17.5) gm/dL Hct (39.0-53.0) % MCV (80.0-100.0) fL MCH (25.0-35.0) pg MCHC (31.0-37.0) g/dL RDW (11.5-15.5) % Plt Count (150-450) k/uL MPV Neutrophils % % Lymphocytes % % Monocytes % % Eosinophils % % Basophils % % Neutrophils # (1.3-7.7) k/uL Lymphocytes # (1.0-4.8) k/uL Monocytes # (0-1.0) k/uL Eosinophils # (0-0.7) k/uL Basophils # (0-0.2) k/uL Manual Slide Review Anisocytosis Macrocytosis Rouleaux Sodium (137-145) mmol/L Potassium (3.5-5.1) mmol/L Chloride (98-107) mmol/L Carbon Dioxide (22-30) mmol/L Anion Gap mmol/L BUN (9-20) mg/dL Creatinine (0.66-1.25) mg/dL Est GFR (CKD-EPI)AfAm (>60 ml/min/1.73 sqM) Est GFR (CKD-EPI)NonAf (>60 ml/min/1.73 sqM) Glucose (74-99) mg/dL Plasma Lactic Acid Jeromy (0.7-2.0) mmol/L Calcium (8.4-10.2) mg/dL Total Bilirubin (0.2-1.3) mg/dL AST (17-59) U/L ALT (4-49) U/L Alkaline Phosphatase (38-126) U/L Total Protein (6.3-8.2) g/dL Albumin (3.5-5.0) g/dL IgG 7861.0 H (700.0-1600.0) mg/dL IgA 1.7 L (60.0-350.0) mg/dL IgM 3.4 L (40.0-280.0) mg/dL Influenza Type A (PCR) Not Detected (Not Detectd) Influenza Type B (PCR) Not Detected (Not Detectd) RSV (PCR) Not Detected (Not Detectd) SARS-CoV-2 (PCR) Not Detected (Not Detectd) - EKG Data -: EKG Interpreted by [facility] EKG shows normal: sinus rhythm, axis (Normal), intervals (CA interval 221 ms, consistent with first-degree AV block. QRS duration 110, QTC 431, both normal), QRS complexes (Normal) Rate: tachycardia (Rate 103 bpm) Disposition Clinical Impression: Fever, Multiple myeloma, Fever of unknown origin, Anemia, Neutropenia Disposition: ADMITTED IP TO THIS HOSP Condition: Poor Is patient prescribed a controlled substance at d/c from ED?: No
[2023-01-09 00:03] LABS: Appearance,Urine Clear (Clear); Bacteria,Urine Rare /hpf; Bilirubin,Urine Negative (Negative); Blood,Urine Trace (Negative); Color,Urine Light Yellow; Glucose,Urine (UA) Negative (Negative); Ketones,Urine 1+ (Negative); Leukocyte Esterase,Urine Negative (Negative); Nitrite,Urine Negative (Negative); Protein,Urine 1+ (Negative); RBC,Urine 2 /hpf (0-5); Specific Gravity,Urine 1.012 (1.001-1.035); Urobilinogen,Urine <2.0 mg/dL (<2.0); WBC,Urine 2 /hpf (0-5)
[2023-01-09] MEDS: CHOLECALCIFEROL 25 MCG (1000 IU) TABLET PO SCH (09:00)
[2023-01-09] MEDS: APIXABAN 2.5 MG TABLET PO SCH ×2 (09:00→23:09)
[2023-01-09] MEDS: SODIUM BICARBONATE TAB 650 MG TAB PO SCH ×2 (09:00→23:09)
[2023-01-09] MEDS ORDERED: IOPAMIDOL CONTRAST (ORAL USE) VIAL PO PRN (13:04)
[2023-01-09] MEDS ORDERED: ONDANSETRON 4 MG/2 ML VIAL IVP PRN (14:06)
--- NOTE | 2023-01-09 15:06 | CT ---
EXAMINATION TYPE: CT abdomen pelvis wo con CT DLP: 787.3 mGycm, Automated exposure control for dose reduction was used. DATE OF EXAM: 01/09/2023 2:53 PM COMPARISON: CT chest abdomen pelvis 12/01/2022. CLINICAL INDICATION:Male, 67 years old with history of fever, left sided tenderness; Fever and left s ided tenderness. TECHNIQUE: Standard CT of the abdomen and pelvis following the administration of oral contrast. Cor onal and sagittal reformats were performed. FINDINGS: Evaluation is limited due to lack of intravenous contrast. LOWER CHEST: Posterior dependent subsegmental atelectasis is noted. ABDOMEN LIVER: Diffusely hypoattenuating parenchyma. GALLBLADDER AND BILE DUCTS: Layering increased densities within the lumen consistent with gallstones are present. No biliary ductal dilatation. PANCREAS: Mild fatty atrophy of the pancreas. SPLEEN: Unremarkable noncontrast appearance. ADRENAL GLANDS: Unremarkable. KIDNEYS AND URETERS: No evidence of hydronephrosis or renal calculus. Similar nonspecific bilateral p erinephric fat stranding. PELVIS BLADDER: Unremarkable REPRODUCTIVE: Unremarkable. ABDOMEN & PELVIS STOMACH AND BOWEL: Stomach and duodenum are unremarkable. Rectal fecaloma measuring up to 5.1 cm. Few scattered colonic diverticula without evidence for acute diverticulitis. Enteric contrast reaches th e descending colon. No focal wall thickening or surrounding inflammatory changes identified. No evide nce of bowel obstruction. PERITONEUM: No evidence of pneumoperitoneum or free fluid. No organized fluid collections identified. VASCULATURE: Moderate atherosclerotic calcifications are present throughout the abdominal aorta and i ts branches. No evidence of aortic aneurysm. Few pelvic phleboliths identified. MUSCULOSKELETAL: No acute osseous abnormalities. Redemonstration of multilevel compression deformitie s throughout the lumbar spine with coarsened trabeculae related to known pathologic fractures. Simila r lucent or lytic lesions throughout the visualized osseous structures. LYMPH NODES: No gross evidence for lymphadenopathy. SOFT TISSUE/ABDOMINAL WALL: Tiny fat filled umbilical hernia. Bilateral fat filled inguinal hernias w ith left greater than right. IMPRESSION: 1. No acute abdominal/pelvic process. 2. Scattered colonic diverticulosis without evidence for acute diverticulitis. 3. Similar lucent and lytic lesions throughout the osseous structures with multiple compression fract ures redemonstrated. 4. Cholelithiasis. 5. Hepatic steatosis.
[2023-01-09] MEDS: PIPERACILLIN-TAZOBACTAM 3.375 GM in SODIUM CHLORIDE 0.9% 100 ML IVPB SCH (15:10)
--- NOTE | 2023-01-09 16:58 | P.CONS ---
History of Present Illness - Reason for Consult Consult date: 01/09/23 Fever, Multiple Myeloma, Pancytopenia - History of Present Illness The patient is 67-year-old white male, well known to our service. He follows with Dr. Browning in the outpatient setting. The patient has a known diagnosis of multiple myeloma. He has been off myeloma specific treatment since early 12/11, due to progression, as well as multiple admissions for fever of unknown origin. He was most recently admitted to the hospital on 12/29/22 with new-onset seizures. He was found to have acute on chronic renal failure. He improved with anorexia medication, as well as hydration. It was felt that the seizures were possibly due to uremia. He was then discharged to [facility] Most of the history for this admission was obtained by the patient's was at the bedside. The patient was sleepy and somewhat difficult to arouse. She stated that after lunch yesterday the patient developed nausea and vomiting. After that he was lethargic and had some intermittent tremors. She states that the tremors were not like seizures but more like chills with fever. He remained lethargic and drowsy and did not eat as dinner. Physician was therefore contacted and the patient was asked to come to the ER. In the ER he was found to have a temperature of 102.1 though he was afebrile initially. Chest x-ray showed chronic changes. CT of the abdomen and pelvis did not show any obvious source of infection. His CBC revealed a hemoglobin of 7.1, platelets 68 and WBC of 4. The patient was therefore admitted for further management. The patient himself denies any localizing signs of infection. His feels that yesterday afternoon and evening he appeared to be somewhat congested and wheezing. His oncology history is as follows: Patient who presented with progressive back pain,started around August 2015. SPEP and immunofixation revealed IgG lambda monoclonal protein,M-protein of 6.8gm/d,serum lambda level 4.14mg/dl,kappa/lambda ratio 0.04. 12/2015 CT scan of lumbar spine revealed demineralization and compression fracture at L1. MRI of thoracic and lumbar spine multiple lytic lesions, compression at L1, no soft tissue component or mass effects. 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 He started RVD on 01/11/2016. He completed 4 cycles on 03/28/2016. He underwent autologous stem cell transplant on 08/27/2016. 01/02/2017 SPEP and immunofixation revealed no M-protein,normal kappa/lambda ratio and normal CBC,CMP. He started maintenance revlimid 5 mg/day December 2016. He started to have worsening back pain in January 2019, MRI of his lumbar spine 03/10/19 which revealed progressing soft tissue mass at L2 causing compression of the thecal sac and L3 nerve root and new paraspinal soft tissue mass at L4-L5 for which he had palliative XRT. 03/08/2019 M-protein was up to 2.2gm/dl, Ig level up to 3019mg/dl, free lambda level 148.9mg/L, ratio of 0.04, normal creatinine and calcium, repeat skeletal bone survey revealed no changes. 03/2019 he started darzalex/pomalyst/decadron. 03/03/2022 PET scan revealed new soft tissue lesion at T12, he had palliative XRT to it due to pain. 03/2022 he started kyprolis/pomalist/dex. Patient had an admission for GIB, significantly dropped his hemoglobin, underwent transfusion, GI work up was negative and resumed eliquis at lower dose, ASA was held. Then he resumed single agent kyprolis/dex (pomalyst kept on hold). Currently has received 7 cycles of kyprolis, last cycle on 11/25/22. On 07/2022,M protein was 0.2 gm/dl,IgG was 373 mg/dl,kappa/lambda ratio normal. On 09/2022,M protein was 0.5 gm/dl (IgG Lambda),serum IgG was 786 mg/dl,serum free lambda was 49.8 mg/L On 12/13/2022, myeloma panel done at [place] [facility] (was inpatient for fever,unknown origin), serum IgG of 3918 mg/dl,IgG Lmabda M spike of 2.8 gm/dl,serum free lambda was 70 mg/dl,kappa 0.12 Due to evidence of disease progression, and triple refractory disease, plan to start patient on cytoxan/velcade/dex regimen, while awaiting evaluation by Dr. Gambino for possible treatment with bispecific antibodies vs CAR-T cell therapy. He was also on Retacrit and xgeva, receiving last doses on 11/24/22 The patient's acute kidney injury during his recent admission was felt to be also due to progression of myeloma. He has had his visit with Dr. Gambino on 01/07/23. The plan was to start him on salvage treatment as a bridge to possible CAR- T after he got out from rehab. Review of Systems Constitutional: Reports chronic pain, Reports poor appetite, Reports weakness, Reports weight loss Eyes: denies blurred vision, denies pain Ears: deny: decreased hearing, ear discharge, earache, tinnitus Ears, nose, mouth and throat: Denies headache, Denies sore throat Cardiovascular: Reports decreased exercise tolerance Respiratory: Reports as per HPI, Reports congestion Gastrointestinal: Denies abdominal pain, Denies diarrhea, Denies nausea, Denies vomiting Genitourinary: Reports as per HPI Musculoskeletal: Reports low back pain, Reports muscle weakness Integumentary: Denies pruritus, Denies rash Neurological: Reports as per HPI, Reports change in mentation, Reports weakness Psychiatric: Reports as per HPI, Reports difficulty concentrating Endocrine: Reports fatigue, Reports weight change Hematologic/Lymphatic: Reports as per HPI 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, gait dysfunction-uses walker, bilateral pedal/ankle edema, PE 08/2019, chronic low back pain, past vertebral fractures, minimal CAD, shingelles twice, past R heel wound, elevated lipids in the past, History of Any Multi-Drug Resistant Organisms: None Reported Past Surgical History: Heart Catheterization, Orthopedic Surgery Additional Past Surgical History / Comment(s): excision of uvular lesion(benign) 2009, colonoscopy, daev knee arthroscopy, rt rotator cuff sx, moles removed from back(benign), bone marrow aspiration/bx, stem cell transplant 2016, Past Anesthesia/Blood Transfusion Reactions: No Reported Reaction Past Psychological History: No Psychological Hx Reported Smoking Status: Former smoker Past Alcohol Use History: None Reported Past Drug Use History: None Reported - Past Family History Father Family Medical History: Renal Disease, Vascular Disorder Additional Family Medical History / Comment(s): aaa. Father is . Mother Family Medical History: No Reported History Additional Family Medical History / Comment(s): mom is healthy Medications and Allergies Home Medications Medication Instructions Recorded Confirmed Type Acyclovir [Zovirax] 400 mg PO BID 07/07/22 01/08/23 History Apixaban [Eliquis] 2.5 mg PO BID 11/30/22 01/08/23 History Calcium Carbonate [Calcium] 600 mg PO HS 11/30/22 01/08/23 History Cholecalciferol [Vitamin D3 (25 25 mcg PO DAILY 11/30/22 01/08/23 History Mcg = 1000 Iu)] Sodium Bicarbonate Tab 650 mg PO BID 11/30/22 01/08/23 History oxyCODONE HCL [oxyCODONE HCL (IR)] 10 mg PO Q4H PRN #18 tab 01/02/23 01/08/23 Rx Gabapentin 300 mg PO HS 01/08/23 01/08/23 History levETIRAcetam [Keppra] 750 mg PO BID 01/08/23 01/08/23 History Allergies Allergy/AdvReac Type Severity Reaction Status Date / Time sulfamethoxazole Allergy Rash/Hives Verified 01/08/23 19:02 [From Bactrim] trimethoprim [From Bactrim] Allergy Rash/Hives Verified 01/08/23 19:02 Physical Exam Vitals: Vital Signs Temp Pulse Resp BP Pulse Ox 01/09/23 14:00 82 18 130/72 01/09/23 10:31 78 18 126/69 99 01/09/23 07:26 97.7 F 80 18 122/69 97 01/09/23 04:00 81 18 95/62 96 01/09/23 03:00 96/60 94 L 01/09/23 02:00 88 17 103/61 96 01/09/23 01:00 90 18 106/63 95 01/09/23 00:45 95 18 106/63 96 01/08/23 21:48 99.3 F 108 H 20 102/53 94 L 01/08/23 21:16 102.1 F H 01/08/23 19:23 101 H 19 155/76 94 L 01/08/23 18:20 101.8 F H 96 20 166/76 98 Intake and Output 01/09/23 01/09/23 01/09/23 06:59 14:59 22:59 Other: Weight 88.451 kg Sleepy and drowsy. Somewhat difficult to arouse. On waking up, responses are appropriate but slow. - Constitutional General appearance: no acute distress - EENT Eyes: EOMI, PERRLA ENT: hearing grossly normal, normal oropharynx - Neck Neck: no lymphadenopathy Thyroid: bilateral: normal size - Respiratory Respiratory: bilateral: rales (Possible subtle rales left lung base) - Cardiovascular Rhythm: regular Heart sounds: normal: S1, S2 - Gastrointestinal General gastrointestinal: normal bowel sounds, soft - Integumentary Integumentary: normal - Neurologic Neurologic: CNII-XII intact - Musculoskeletal Musculoskeletal: generalized weakness, strength equal bilaterally - Psychiatric Difficult to arouse. Response is appropriate but quite slow. Difficult to assess orientation due to slow affect and response Results CBC & Chem 7: 01/08/23 19:15 01/08/23 19:15 Labs: Abnormal Lab Results - Last 24 Hours (Table) 01/08/23 01/08/23 01/08/23 Range/Units 19:15 19:15 23:40 RBC 2.25 L (4.30-5.90) m/uL Hgb 7.1 L (13.0-17.5) gm/dL Hct 21.4 L (39.0-53.0) % RDW 17.8 H (11.5-15.5) % Plt Count 68 L (150-450) k/uL Lymphocytes # 0.6 L (1.0-4.8) k/uL Sodium 135 L (137-145) mmol/L Carbon Dioxide 18 L (22-30) mmol/L BUN 32 H (9-20) mg/dL Creatinine 4.07 H (0.66-1.25) mg/dL Total Protein 10.3 H (6.3-8.2) g/dL Albumin 2.9 L (3.5-5.0) g/dL Urine Protein 1+ H (Negative) Urine Ketones 1+ H (Negative) Urine Blood Trace H (Negative) Urine Bacteria Rare H (None) /hpf Chest x-ray: report reviewed CT scan - abdomen: report reviewed CT scan - pelvis: report reviewed Assessment and Plan (1) Fever of unknown origin Narrative/Plan: The patient is readmitted with fever. He has had multiple admissions for fever in the past couple of months. He had a prolonged admission at [facility] in the second half of 12/11. He improved with treatment for aspiration pneumonia. During this admission he does not have any specific localizing signs. However given the onset of symptoms after an episode of nausea and vomiting, aspiration is a reasonable differential. His x-ray did not show definite infiltrate, but it could be due to his compromised immune status affecting his ability to initiate a sufficient immune response. On examination there was possibility of some rales in the left lower lobe. - ID consult. The patient has been placed on Zosyn, which would provide reasonable coverage for aspiration pneumonia also. - Await cultures - Check noncontrast CT chest - Check Ig levels. IVIG if indicated Current Visit: Yes Status: Acute Priority: High Code(s): R50.9 - FEVER, UNSPECIFIED SNOMED Code(s): 4448580 (2) Multiple myeloma Narrative/Plan: Diagnostic and therapeutic circumstances as described. At this time the plan is to start salvage treatment once he is able to get out of the [facility]. He has had his consult with BMT at the [facility] recently. Current Visit: Yes Status: Chronic Priority: High Code(s): C90.00 - MULTIPLE MYELOMA NOT HAVING ACHIEVED REMISSION SNOMED Code(s): 077296923 (3) Pancytopenia due to antineoplastic chemotherapy Narrative/Plan: This is also due to underlying myeloma with progression. Currently counts are in a safe range. Continue to monitor and transfuse to keep hemoglobin greater than 7. Okay to anticoagulate as long as platelets are greater than 50,000. Current Visit: No Status: Acute Code(s): D61.810 - ANTINEOPLASTIC CHEMOTHERAPY INDUCED PANCYTOPENIA; T45.1X5A - ADVERSE EFFECT OF ANTINEOPLASTIC AND IMMUNOSUP DRUGS, INIT SNOMED Code(s): 530977077410199
--- NOTE | 2023-01-09 20:56 | P.CONS ---
History of Present Illness - Reason for Consult Consult date: 01/09/23 fever Requesting physician: Toñito Leblanc - Chief Complaint Fever and weakness x 1 day - History of Present Illness Patient is a 67-year-old male with a past medical history significant for multiple myeloma on chemotherapy patient also history of hyperlipidemia c oronary disease PE and jail resident patient was brought into the ER last night for evaluation of fever apparently patient was doing okay at that morning however he did have an episode of vomiting after eating his lunch and later in the evening the patient was noticed to be afebrile and not feeling well complaining of fatigue no headache or URI symptoms no chest pain or shortness with occasional cough some nausea but no further vomiting no diarrhea or constipation with the symptoms the patient was sent to the ER on arrival to the ER the patient did have a fever of 102.1 F patient was not hypoxic or need for supplemental oxygen white count was normal did have elevated BUN/creatinine liver enzymes are normal urine was negative influenza RSV and COVID testing was negative patient did have a chest x-ray poor inspiratory effort no consolidation or heart failure patient was admitted to hospital infectious disease was consulted for further management of antibiotic therapy Review of Systems Positive point has been mentioned in the HPI rest of the systems are negative Past Medical History Past Medical History: Coronary Artery Disease (CAD), Cancer, Hyperlipidemia, Pulmonary Embolus (PE), Syncope Additional Past Medical History / Comment(s): 2016 diagnosed with multiple myeloma-treated with chemo/immunologics/stem cell transplant in 2015- currently on chemo, 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, gait dysfunction-uses walker, bilateral pedal/ankle edema, PE 08/2019, chronic low back pain, past vertebral fractures, minimal CAD, shingelles twice, past R heel wound, elevated lipids in the past, History of Any Multi-Drug Resistant Organisms: None Reported Past Surgical History: Heart Catheterization, Orthopedic Surgery Additional Past Surgical History / Comment(s): excision of uvular lesion(benign) 2009, colonoscopy, dave knee arthroscopy, rt rotator cuff sx, moles removed from back(benign), bone marrow aspiration/bx, stem cell transplant 2015, Past Anesthesia/Blood Transfusion Reactions: No Reported Reaction Past Psychological History: No Psychological Hx Reported Smoking Status: Former smoker Past Alcohol Use History: None Reported Past Drug Use History: None Reported - Past Family History Father Family Medical History: Renal Disease, Vascular Disorder Additional Family Medical History / Comment(s): aaa. Father is . Mother Family Medical History: No Reported History Additional Family Medical History / Comment(s): mom is healthy Medications and Allergies Home Medications Medication Instructions Recorded Confirmed Type Acyclovir [Zovirax] 400 mg PO BID 07/07/22 01/08/23 History Apixaban [Eliquis] 2.5 mg PO BID 11/30/22 01/08/23 History Calcium Carbonate [Calcium] 600 mg PO HS 11/30/22 01/08/23 History Cholecalciferol [Vitamin D3 (25 25 mcg PO DAILY 11/30/22 01/08/23 History Mcg = 1000 Iu)] Sodium Bicarbonate Tab 650 mg PO BID 11/30/22 01/08/23 History oxyCODONE HCL [oxyCODONE HCL (IR)] 10 mg PO Q4H PRN #18 tab 01/02/23 01/08/23 Rx Gabapentin 300 mg PO HS 01/08/23 01/08/23 History levETIRAcetam [Keppra] 750 mg PO BID 01/08/23 01/08/23 History Allergies Allergy/AdvReac Type Severity Reaction Status Date / Time sulfamethoxazole Allergy Rash/Hives Verified 01/08/23 19:02 [From Bactrim] trimethoprim [From Bactrim] Allergy Rash/Hives Verified 01/08/23 19:02 Physical Exam Vitals: Vital Signs Temp Pulse Resp BP Pulse Ox 01/09/23 10:31 78 18 126/69 99 01/09/23 07:26 97.7 F 80 18 122/69 97 01/09/23 04:00 81 18 95/62 96 01/09/23 03:00 96/60 94 L 01/09/23 02:00 88 17 103/61 96 01/09/23 01:00 90 18 106/63 95 01/09/23 00:45 95 18 106/63 96 01/08/23 21:48 99.3 F 108 H 20 102/53 94 L 01/08/23 21:16 102.1 F H 01/08/23 19:23 101 H 19 155/76 94 L 01/08/23 18:20 101.8 F H 96 20 166/76 98 Intake and Output 01/08/23 01/09/23 01/09/23 22:59 06:59 14:59 Other: Weight 88.451 kg GENERAL DESCRIPTION: Elderly male lying in bed, no distress. No tachypnea or accessory muscle of respiration use. HEENT: Shows Pallor , no scleral icterus. Oral mucous membrane is dry. No pharyngeal erythema or thrush NECK: Trachea central, no thyromegaly. LUNGS: Unlabored breathing. Clear to auscultation anteriorly. No wheeze or crackle. HEART: S1, S2, regular rate and rhythm. No loud murmur ABDOMEN: Soft, mild left lower quadrant tenderness EXTREMITIES: No edema of feet. SKIN: No rash, no masses palpable. NEUROLOGICAL: The patient is awake, alert, oriented x3, mood and affect normal. Results CBC & Chem 7: 01/22/23 04:30 01/22/23 04:30 Labs: Abnormal Lab Results - Last 24 Hours (Table) 01/08/23 01/08/23 01/08/23 Range/Units 19:15 19:15 23:40 RBC 2.25 L (4.30-5.90) m/uL Hgb 7.1 L (13.0-17.5) gm/dL Hct 21.4 L (39.0-53.0) % RDW 17.8 H (11.5-15.5) % Plt Count 68 L (150-450) k/uL Lymphocytes # 0.6 L (1.0-4.8) k/uL Sodium 135 L (137-145) mmol/L Carbon Dioxide 18 L (22-30) mmol/L BUN 32 H (9-20) mg/dL Creatinine 4.07 H (0.66-1.25) mg/dL Total Protein 10.3 H (6.3-8.2) g/dL Albumin 2.9 L (3.5-5.0) g/dL Urine Protein 1+ H (Negative) Urine Ketones 1+ H (Negative) Urine Blood Trace H (Negative) Urine Bacteria Rare H (None) /hpf Assessment and Plan (1) Fever Status: Acute Priority: High Code(s): R50.9 - FEVER, UNSPECIFIED SNOMED Code(s): 451511147 Plan: 1patient was in the hospital with a fever and did have an episode of vomiting patient was noted to be slightly tender in the left lower quadrant area concerning for possible intra-abdominal source possible diverticulitis as currently not behaving as pneumonia chest x-ray was negative urine is negative influenza RSV and COVID testing was negative 2-patient with elevated creatinine high risk of nephrotoxicity 3-we will obtain CT of abdominal pelvis with oral contrast only 4-we will empirically add Zosyn while waiting for the work-up to be completed We will follow on clinical condition and cultures to further adjust medication if needed Thank you for this consultation we will follow the patient along with you Time with Patient: Greater than 30
[2023-01-09] MEDS: CALCIUM CARBONATE 500 MG CHEWABLE PO SCH (23:09)
[2023-01-09] MEDS: GABAPENTIN 300 MG CAP PO SCH (23:09)
[2023-01-09 23:11] LABS: Immunoglobulin A 1.7 mg/dL (60.0-350.0); Immunoglobulin M 3.4 mg/dL (40.0-280.0)
[2023-01-10] MEDS: PIPERACILLIN-TAZOBACTAM 3.375 GM in SODIUM CHLORIDE 0.9% 100 ML IVPB SCH ×3 (02:21→23:57)
--- NOTE | 2023-01-10 02:41 | HP ---
HISTORY AND PHYSICAL CHIEF COMPLAINT: Fever and associated nausea and vomiting. HISTORY OF PRESENT ILLNESS: This is a 67-year-old gentleman with past medical history of multiple medical problems including multiple myeloma, was being followed by Dr. Elliott in the [facility]. The patient apparently had vomiting according to the and the patient was having chills and showed some change in mental status. The patient was taken to [facility] and was admitted for further evaluation and treatment. There is no history of any headache, loss of consciousness, seizures. The patient is slightly drowsy. Most of the history taken by discussion with the at the bedside as well as review of the chart and discussion with staff. Hemoglobin 7.1. Hematology/Oncology is being consulted. PAST MEDICAL HISTORY: Reviewed include multiple myeloma. The rest of the history and rest the chart is also reviewed. HOME MEDICATIONS: Reviewed include oxycodone. Doses and rest of medication noted. ALLERGIES: Reviewed include Bactrim. FAMILY HISTORY: Could not be taken because of change in mental status. SOCIAL HISTORY: Could not be taken because of change in mental status. REVIEW OF SYSTEMS: Could not be taken because of change in mental status. PHYSICAL EXAMINATION: VITAL SIGNS: Pulse is 81, blood pressure 90/60, respirations 18. HEENT: Conjunctivae normal. NECK: No JVD. CARDIOVASCULAR: S1 and S2. RESPIRATIONS: Few scattered rhonchi. ABDOMEN: Soft, nontender. LEGS: No edema. NERVOUS SYSTEM: No focal deficits. SKIN: No ulcer, rash, bleeding. JOINTS: No active deforming arthropathy. LABORATORY DATA: Labs are reviewed. WBC 4, hemoglobin 7.1, sodium 135. Rest of the labs are noted. ASSESSMENT: 1. Chills, fever possibly aspiration pneumonia with sepsis. 2. Nausea, vomiting, possible acute gastritis. 3. Multiple myeloma. 4. Anemia. 5. Chronic kidney disease, stage 4. 6. Multiple medical issues. RECOMMENDATIONS: Recommend to continue current medications. We will initiate broad-spectrum IV antibiotics, Infectious Disease evaluation, cultures, and Hematology, Oncology, Nephrology consultations. Resume the home medications once they are confirmed. The prognosis is extremely guarded because of the above-mentioned multiple medical issues, we will treat the patient symptomatically as well and further recommendations to follow. Discussed at length with the , understands and agrees. MMODL / IJN: [id number] /
[2023-01-10] MEDS: APIXABAN 2.5 MG TABLET PO SCH ×2 (08:52→23:26)
[2023-01-10] MEDS: CHOLECALCIFEROL 25 MCG (1000 IU) TABLET PO SCH (08:52)
[2023-01-10] MEDS: SODIUM BICARBONATE TAB 650 MG TAB PO SCH ×3 (08:52→23:26)
--- NOTE | 2023-01-10 13:00 | P.NPCON ---
History of Present Illness - Reason for Consult chronic renal failure - History of Present Illness Patient is a 67-year-old male with history of chronic kidney disease NKF stage IIIB with baseline creatinine around 1.7-1.9 mg/dL secondary to multiple myeloma. Patient has underlying multiple myeloma status post chemotherapy and stem cell transplantation and immunotherapy. Multiple myeloma has progressed with bone metastasis and treatment is currently on hold since November 2022 due to multiple recent admissions and history of fever. Patient had acute kidney injury,mostly prerenal, during his last ho spitalization about 2 weeks ago. Serum creatinine had improved to about 3.1 from 6.7 at peak. Patient received IV hydration. Patient is admitted again with decreased oral intake, nausea and vomiting and increased weakness. Patient also had a fever of 10 2F. Patient had tremors/chills but no seizures according to his . Serum creatinine was 4.0 this admission. Patient has had good urine output. Currently with external catheter. 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, gait dysfunction-uses walker, bilateral pedal/ankle edema, PE 08/2019, chronic low back pain, past vertebral fractures, minimal CAD, shingelles twice, past R heel wound, elevated lipids in the past, History of Any Multi-Drug Resistant Organisms: None Reported Past Surgical History: Heart Catheterization, Orthopedic Surgery Additional Past Surgical History / Comment(s): excision of uvular lesion(benign) 2009, colonoscopy, dave knee arthroscopy, rt rotator cuff sx, moles removed from back(benign), bone marrow aspiration/bx, stem cell transplant 2015, Past Anesthesia/Blood Transfusion Reactions: No Reported Reaction Past Psychological History: No Psychological Hx Reported Smoking Status: Former smoker Past Alcohol Use History: None Reported Past Drug Use History: None Reported - Past Family History Father Family Medical History: Renal Disease, Vascular Disorder Additional Family Medical History / Comment(s): aaa. Father is . Mother Family Medical History: No Reported History Additional Family Medical History / Comment(s): mom is healthy Medications and Allergies Home Medications Medication Instructions Recorded Confirmed Type Acyclovir [Zovirax] 400 mg PO BID 07/07/22 01/08/23 History Apixaban [Eliquis] 2.5 mg PO BID 11/30/22 01/08/23 History Calcium Carbonate [Calcium] 600 mg PO HS 11/30/22 01/08/23 History Cholecalciferol [Vitamin D3 (25 25 mcg PO DAILY 11/30/22 01/08/23 History Mcg = 1000 Iu)] Sodium Bicarbonate Tab 650 mg PO BID 11/30/22 01/08/23 History oxyCODONE HCL [oxyCODONE HCL (IR)] 10 mg PO Q4H PRN #18 tab 01/02/23 01/08/23 Rx Gabapentin 300 mg PO HS 01/08/23 01/08/23 History levETIRAcetam [Keppra] 750 mg PO BID 01/08/23 01/08/23 History Allergies Allergy/AdvReac Type Severity Reaction Status Date / Time sulfamethoxazole Allergy Rash/Hives Verified 01/08/23 19:02 [From Bactrim] trimethoprim [From Bactrim] Allergy Rash/Hives Verified 01/08/23 19:02 Physical Exam Vitals: Vital Signs Temp Pulse Pulse Resp BP BP Pulse Ox 01/10/23 09:03 96 01/10/23 06:55 98.3 F 74 18 99/61 96 01/10/23 02:00 96.9 F L 74 16 96/57 98 01/09/23 19:45 98.4 F 15 96/58 97 01/09/23 14:00 82 18 130/72 Intake and Output 01/09/23 01/10/23 01/10/23 22:59 06:59 14:59 Output Total 300 1250 1 Balance -300 -1250 -1 Output: Urine 300 1250 Stool 1 Other: # Bowel Movements 1 2 Patient is awake, comfortable, no acute distress Examination of the heart S1 and S2 Examination of the lungs bilateral breath sounds are heard Abdomen is soft nontender Examination of lower extremity shows no evidence of edema [employer]IST[employer] PT exam grossly intact Results - Lab Results Most recent lab results Calcium 10.0 mg/dL (8.4-10.2) 01/08/23 19:15 01/08/23 19:15 01/08/23 19:15 Assessment and Plan Assessment: 1. Acute kidney injury, prerenal. Start IV fluids 2. Recent episode of acute kidney injury with serum creatinine was as high as 6.7 but improved to 3.1 with hydration serum creatinine 3.1 on 01/01/2023. 3. CK D stage IV IIIB to 4 with serum creatinine at 2.3-2.4 mg/dL as of November 2022. Etiology is multiple myeloma 4. Progressive multiple myeloma with bony metastasis. History of stem cell transplant and immunotherapy. 5. Anemia, multifactorial 6. Fever with possible aspiration pneumonia maintained on antibiotics. ID has been consulted Plan: Add IV fluids Continue with IV antibiotics Continue oral sodium bicarb, increase dose to 3 times a day Repeat labs in a.m. Thank you for the consultation. We will continue to follow the patient with you during his hospitalization
[2023-01-10 13:15] LABS: African American GFR (CKD) 17 (>60 ml/min/1.73 sqM); Anion Gap 16 mmol/L; Blood Urea Nitrogen 27 mg/dL (9-20); Calcium 9.3 mg/dL (8.4-10.2); Carbon Dioxide 17 mmol/L (22-30); Chloride 104 mmol/L (98-107); Glucose 70 mg/dL (74-99); Non-African American GFR(CKD) 14 (>60 ml/min/1.73 sqM); Sodium 137 mmol/L (137-145)
--- NOTE | 2023-01-10 14:12 | P.PN ---
Subjective Progress Note Date: 01/10/23 -Afebrile, no acute events overnight -CT abdomen/pelvis with no acute process concerning for infectious etiology -IgG 7861 -Notes feeling improved since admission with no confusion -Denies any fevers, chills, or abdominal pain currently. He is seated and eating lunch Objective - Vital Signs Vital signs: Vital Signs Temp 98.6 F 01/10/23 13:52 Pulse 82 01/10/23 13:52 Resp 16 01/10/23 13:52 BP 99/64 01/10/23 13:52 Pulse Ox 97 01/10/23 13:52 FiO2 Intake & Output 01/09/23 01/10/23 01/10/23 18:59 06:59 18:59 Output Total 300 1250 1 Balance -300 -1250 -1 Output: Urine 300 1250 Stool 1 Other: Voiding Method External Catheter # Bowel Movements 1 2 - Constitutional Constitutional Comment(s): Fatigued appearing General appearance: Present: no acute distress - EENT Eyes: Present: EOMI - Respiratory Respiratory: bilateral: CTA - Cardiovascular Rhythm: regular - Gastrointestinal General gastrointestinal: Present: soft. Absent: distended, tenderness - Integumentary Integumentary: Present: pale - Neurologic Neurologic: Absent: focal deficits - Labs CBC & Chem 7: 01/08/23 19:15 01/10/23 12:01 Labs: Abnormal Lab Results - Last 24 Hours (Table) 01/08/23 01/10/23 Range/Units 19:15 12:01 Carbon Dioxide 17 L (22-30) mmol/L BUN 27 H (9-20) mg/dL Creatinine 4.02 H (0.66-1.25) mg/dL Glucose 70 L (74-99) mg/dL IgG 7861.0 H (700.0-1600.0) mg/dL IgA 1.7 L (60.0-350.0) mg/dL IgM 3.4 L (40.0-280.0) mg/dL Microbiology - Last 24 Hours (Table) 01/08/23 19:15 Blood Culture - Preliminary Blood No Growth after 24 hours 01/08/23 19:15 Blood Culture - Preliminary Blood No Growth after 24 hours Assessment and Plan (1) Fever of unknown origin Current Visit: Yes Status: Acute Priority: High Code(s): R50.9 - FEVER, UNSPECIFIED SNOMED Code(s): 9459264 (2) Multiple myeloma Current Visit: Yes Status: Chronic Priority: High Code(s): C90.00 - MULTIPLE MYELOMA NOT HAVING ACHIEVED REMISSION SNOMED Code(s): 876290322 (3) Pancytopenia due to antineoplastic chemotherapy Current Visit: No Status: Acute Code(s): D61.810 - ANTINEOPLASTIC CHEMOTHERAPY INDUCED PANCYTOPENIA; T45.1X5A - ADVERSE EFFECT OF ANTINEOPLASTIC AND IMMUNOSUP DRUGS, INIT SNOMED Code(s): 063575214065913 Plan: Fever of unknown origin -Afebrile since initial presentation on 01/08/2023 -Blood cultures from admission on 01/08/2023 are revealing no growth to date -Chest x-ray and CT abdomen/pelvis revealing no acute infectious process or diverticulitis -Appears to be clinically improved on empiric Zosyn -Continue empiric Zosyn for now pending at least 48 hours of no growth on blood cultures -If he develops additional fevers inpatient, noncontrast CT of the chest can be considered for additional work-up Refractory multiple myeloma -Has noted disease progression on Kyprolis/Pomalyst/dexamethasone -Has been seen by Dr. Gambino of [facility] in [place] to review CAR-T treatment on 01/07/2023 -Plan is to undergo salvage treatment for additional disease control prior to un dergoing CAR-T Chemotherapy-induced pancytopenia -Secondary to treatment from multiple myeloma -Labs on admission did not necessitate transfusion -Transfuse for hemoglobin less than 7 -Transfuse for platelets less than or equal to 10,000 or bleeding
[2023-01-10] MEDS: LACTATED RINGERS 1,000 ML IV SCH (14:20)
--- NOTE | 2023-01-10 15:54 | PN ---
PROGRESS NOTE DATE OF SERVICE: 01/10/2023 SUBJECTIVE: This is a 67-year-old gentleman admitted with fever and chills with nausea, vomiting, also had multiple myeloma. The possibility of sepsis is also considered. Abdomen and pelvis CAT scan was ordered, which I reviewed personally showed no acute abnormality. The patient has cholelithiasis. Today's white count is not available. Yesterday, hemoglobin was 7.1. Creatinine is 4.07. Multiple consultants are following the patient closely. PAST MEDICAL HISTORY: Reviewed. REVIEW OF SYSTEMS: A 14-point review is negative as mentioned earlier. CURRENT MEDICATIONS: Reviewed include Eliquis. Doses and rest of medications noted. Zosyn. Rest of the chart is also reviewed. PHYSICAL EXAMINATION: VITAL SIGNS: Pulse is 74, blood pressure 99/61, respirations 18. HEENT: Conjunctivae normal. NECK: No JVD. CARDIOVASCULAR: S1, S2. RESPIRATIONS: Breath sounds diminished at the bases. A few scattered rhonchi. ABDOMEN: Soft, nontender. LEGS: No edema. NERVOUS SYSTEM: Diffusely weak. LABORATORY DATA: Reviewed. ASSESSMENT: 1. Chills and fever, possible aspiration pneumonia with sepsis. 2. Nausea, vomiting, possible acute gastritis. 3. Multiple myeloma. 4. Anemia. 5. Chronic kidney disease, stage 4. 6. Multiple medical issues. RECOMMENDATIONS AND DISCUSSION: I recommend to continue current medications. Continue symptomatic treatment. The labs are not available today. I will repeat the labs. Continue the antibiotics. Closely follow with multiple consultants. Follow the final cultures. Prognosis is guarded, which I discussed at length with the at the bedside and further recommendations to follow. MMODL / IJN: [id number] /
[2023-01-10 17:18] LABS: Basophils # (A) 0 X 10*3/uL (0.00-0.10); Basophils % (A) 0 %; Eosinophils % (A) 3.5 %; HCT 20.4 % (39.6-50.0); HGB 6.2 g/dL (13.0-17.0); Immature Grans, Automated 1.8 %; Immature Platelet Fraction 3.5 % (1.1-6.1); Lymphocytes # (A) 0.36 X 10*3/uL (0.90-5.00); Lymphocytes % (A) 12.8 %; MCH 30.2 pg (27.0-32.0); MCHC 30.4 g/dL (32.0-37.0); MCV 99.5 fL (80.0-97.0); Mean Platelet Volume 11.2 fL (9.5-12.2); Monocytes % (A) 7.1 %; NRBC Per 100 WBC 0 /100 WBCS (0.0-0.0); Neutrophils # (A) 2.11 X 10*3/uL (1.80-7.70); Neutrophils % (A) 74.8 %; Platelet Count 65 X 10*3/uL (140-440); RBC 2.05 X 10*6/uL (4.40-5.60); WBC 2.82 X 10*3/uL (4.50-10.00)
--- NOTE | 2023-01-10 23:07 | P.PN ---
Subjective Progress Note Date: 01/10/23 Principal diagnosis: Fever Patient is a 67-year-old male with a past medical history significant for multiple myeloma on chemotherapy patient also history of hyperlipidemia coronary disease PE and correction resident patient was brought into the ER for evaluation of fever , Patient also have an episode of vomiting and persistent in the left lower quadrant. On today's evaluation that is 01/10/2023, the patient denies having any fever or any chills he is feeling slightly better today patient did have multiple bowel movement last night no further nausea vomiting no chest pain shortness of breath or cough Objective - Vital Signs Vital signs: Vital Signs Temp 98.6 F 01/10/23 13:52 Pulse 82 01/10/23 13:52 Resp 16 01/10/23 13:52 BP 99/64 01/10/23 13:52 Pulse Ox 97 01/10/23 13:52 FiO2 Intake & Output 01/09/23 01/10/23 01/10/23 18:59 06:59 18:59 Output Total 300 1250 1 Balance -300 -1250 -1 Output: Urine 300 1250 Stool 1 Other: Voiding Method External Catheter # Bowel Movements 1 2 - Exam GENERAL DESCRIPTION: Elderly male lying in bed in no distress RESPIRATORY SYSTEM: Unlabored breathing , decreased breath sounds at bases HEART: S1 S2 regular rate and rhythm ,no loud murmurs ABDOMEN: Soft , no tenderness EXTREMITIES: No edema feet - Labs CBC & Chem 7: 01/10/23 12:01 01/10/23 12:01 Labs: Abnormal Lab Results - Last 24 Hours (Table) 01/08/23 01/10/23 Range/Units 19:15 12:01 Carbon Dioxide 17 L (22-30) mmol/L BUN 27 H (9-20) mg/dL Creatinine 4.02 H (0.66-1.25) mg/dL Glucose 70 L (74-99) mg/dL IgG 7861.0 H (700.0-1600.0) mg/dL IgA 1.7 L (60.0-350.0) mg/dL IgM 3.4 L (40.0-280.0) mg/dL Microbiology - Last 24 Hours (Table) 01/08/23 19:15 Blood Culture - Preliminary Blood No Growth after 24 hours 01/08/23 19:15 Blood Culture - Preliminary Blood No Growth after 24 hours Assessment and Plan (1) Fever Current Visit: Yes Status: Acute Priority: High Code(s): R50.9 - FEVER, UNSPECIFIED SNOMED Code(s): 661299428 Plan: 1patient was in the hospital with a fever and did have an episode of vomiting patient was noted to be slightly tender in the left lower quadrant area concerning for possible intra-abdominal source possible diverticulitis as currently not behaving as pneumonia chest x-ray was negative urine is negative influenza RSV and COVID testing was negative 2-patient with elevated creatinine high risk of nephrotoxicity 3- CT of abdominal pelvis with oral contrast , did not show any acute process but rectal feceloma 4-Pt to continue with Zosyn while waiting for cultures to be finalized Time with Patient: Less than 30
[2023-01-10] MEDS: GABAPENTIN 300 MG CAP PO SCH (23:26)
[2023-01-10] MEDS: ACYCLOVIR 200 MG CAP PO SCH (23:26)
[2023-01-10] MEDS: CALCIUM CARBONATE 500 MG CHEWABLE PO SCH (23:26)
[2023-01-11 05:14] LABS: Anisocytosis Slight; Basophils % (A) 0 %; Eosinophils # (A) 0.1 k/uL (0-0.7); Eosinophils % (A) 5 %; Hypochromasia Slight; Lymphocytes # (A) 0.4 k/uL (1.0-4.8); Lymphocytes % (A) 19 %; MCH 30.7 pg (25.0-35.0); Macrocytosis Slight; Mean Platelet Volume 9.2; Monocytes # (A) 0.1 k/uL (0-1.0); Monocytes % (A) 8 %; Neutrophils # (A) 1.2 k/uL (1.3-7.7); Neutrophils % (A) 64 %; RBC 2.06 m/uL (4.30-5.90); RDW 17.9 % (11.5-15.5); WBC 1.8 k/uL (3.8-10.6)
[2023-01-11] MEDS: LACTATED RINGERS 1,000 ML IV SCH ×2 (05:22→16:30)
[2023-01-11 05:27] LABS: Platelet Count 52 k/uL (150-450)
[2023-01-11 05:28] LABS: HCT 19.8 % (39.0-53.0); HGB 6.3 gm/dL (13.0-17.5)
[2023-01-11] MEDS: PIPERACILLIN-TAZOBACTAM 3.375 GM in SODIUM CHLORIDE 0.9% 100 ML IVPB SCH ×3 (06:07→22:22)
[2023-01-11 09:24] LABS: African American GFR (CKD) 17.8 (60.0-200.0); Anion Gap 12.2 mmol/L (10.00-18.00); BUN/Creat Ratio 6.24 Ratio (12.00-20.00); Blood Urea Nitrogen 23.7 mg/dL (9.0-27.0); Calcium 9.4 mg/dL (8.7-10.3); Carbon Dioxide 18.8 mmol/L (20.0-27.5); Non-African American GFR(CKD) 15.3 (60.0-200.0); Potassium 4.2 mmol/L (3.5-5.5)
[2023-01-11] MEDS: ACYCLOVIR 200 MG CAP PO SCH ×2 (10:46→20:47)
[2023-01-11] MEDS: CHOLECALCIFEROL 25 MCG (1000 IU) TABLET PO SCH (10:46)
[2023-01-11] MEDS: SODIUM BICARBONATE TAB 650 MG TAB PO SCH ×3 (10:46→22:22)
[2023-01-11] MEDS: APIXABAN 2.5 MG TABLET PO SCH ×2 (10:46→20:47)
--- NOTE | 2023-01-11 12:41 | P.PN ---
Subjective Patient is seen for follow-up for acute kidney injury and top of chronic kidney disease. Currently maintained on IV fluids. Renal function has improved with creatinine down to 3.8 from 4.0 yesterday. Hemoglobin was 6.3 today. No active bleeding noted Patient is overall feeling better according to his . Objective - Vital Signs Vital signs: Vital Signs Temp 96.7 F L 01/11/23 12:37 Pulse 68 01/11/23 12:37 Resp 15 01/11/23 12:37 BP 106/67 01/11/23 12:37 Pulse Ox 97 01/11/23 12:37 FiO2 Intake & Output 01/10/23 01/11/23 01/11/23 18:59 06:59 18:59 Intake Total 310 Output Total 601 750 Balance -601 -750 310 Intake: Blood Product 310 Rc Irr As1 Unit 310 [id number] Output: Urine 600 750 Stool 1 Other: Voiding Method External Catheter - Exam Comfortable, sleeping Examination of the heart S1 and S2 Examination of the lungs bilateral breath sounds are heard Abdomen is soft nontender Examination lower extremity shows no evidence of edema. - Labs CBC & Chem 7: 01/11/23 04:40 01/11/23 04:40 Labs: Abnormal Lab Results - Last 24 Hours (Table) 01/10/23 01/10/23 01/10/23 Range/Units 12:01 12:01 18:11 WBC 2.82 L (4.50-10.00) X 10*3/uL RBC 2.05 L (4.40-5.60) X 10*6/uL Hgb 6.2 L* (13.0-17.0) g/dL Hct 20.4 L (39.6-50.0) % MCV 99.5 H (80.0-97.0) fL MCHC 30.4 L (32.0-37.0) g/dL RDW 18.0 H (11.5-14.5) % Plt Count 65 L (140-440) X 10*3/uL Plt Count Comment DECREASED A Immature Gran # 0.05 H (0.00-0.04) X 10*3/uL Neutrophils # (1.3-7.7) k/uL Lymphocytes # 0.36 L (0.90-5.00) X 10*3/uL Sodium (135-145) mmol/L Carbon Dioxide 17 L (22-30) mmol/L BUN 27 H (9-20) mg/dL Creatinine 4.02 H (0.66-1.25) mg/dL Est GFR (CKD-EPI)AfAm (60.0-200.0) Est GFR (CKD-EPI)NonAf (60.0-200.0) BUN/Creatinine Ratio (12.00-20.00) Ratio Glucose 70 L (74-99) mg/dL Crossmatch See Detail 01/11/23 01/11/23 Range/Units 04:40 04:40 WBC 1.8 L (4.50-10.00) X 10*3/uL RBC 2.06 L (4.40-5.60) X 10*6/uL Hgb 6.3 L* (13.0-17.0) g/dL Hct 19.8 L* (39.6-50.0) % MCV (80.0-97.0) fL MCHC (32.0-37.0) g/dL RDW 17.9 H (11.5-14.5) % Plt Count 52 L (140-440) X 10*3/uL Plt Count Comment Immature Gran # (0.00-0.04) X 10*3/uL Neutrophils # 1.2 L (1.3-7.7) k/uL Lymphocytes # 0.4 L (0.90-5.00) X 10*3/uL Sodium 132 L (135-145) mmol/L Carbon Dioxide 18.8 L (22-30) mmol/L BUN (9-20) mg/dL Creatinine 3.8 H (0.66-1.25) mg/dL Est GFR (CKD-EPI)AfAm 17.8 L (60.0-200.0) Est GFR (CKD-EPI)NonAf 15.3 L (60.0-200.0) BUN/Creatinine Ratio 6.24 L (12.00-20.00) Ratio Glucose 65 L (74-99) mg/dL Crossmatch Microbiology - Last 24 Hours (Table) 01/08/23 19:15 Blood Culture - Preliminary Blood No Growth after 48 hours 01/08/23 19:15 Blood Culture - Preliminary Blood No Growth after 48 hours Assessment and Plan Assessment: 1. Acute kidney injury, prerenal. Improving with IV hydration. 2. Recent episode of acute kidney injury with serum creatinine was as high as 6.7 but improved to 3.1 with hydration serum creatinine 3.1 on 01/01/2023. 3. CK D stage IV IIIB to 4 with serum creatinine at 2.3-2.4 mg/dL as of November 2022. Etiology is multiple myeloma 4. Progressive multiple myeloma with bony metastasis. History of stem cell tr ansplant and immunotherapy. 5. Anemia, multifactorial 6. Fever with possible aspiration pneumonia maintained on antibiotics. ID has been consulted Plan: Continue IV fluids Continue with IV antibiotics Continue oral sodium bicarb, increase dose to 3 times a day Repeat labs in a.m.
--- NOTE | 2023-01-11 13:27 | P.PN ---
Subjective Progress Note Date: 01/11/23 Patient is a 67-year-old male with history of chronic kidney disease NKF stage IIIB with baseline creatinine around 1.7-1.9 mg/dL secondary to multiple myeloma. Patient has underlying multiple myeloma status post chemotherapy and stem cell transplantation and immunotherapy. Multiple myeloma has progressed with bone metastasis and treatment is currently on hold since November 2022 due to multiple recent admissions and history of fever. Patient had acute kidney injury,mostly prerenal, during his last h ospitalization about 2 weeks ago. Serum creatinine had improved to about 3.1 from 6.7 at peak. Patient received IV hydration. Patient is admitted again with decreased oral intake, nausea and vomiting and increased weakness. Patient also had a fever of 10 2F. Patient had tremors/chills but no seizures according to his . Serum creatinine was 4.0 this admission. Patient has had good urine output. Currently with external catheter. 01/11/23. Patient seen and examined. Patient is lethargic. at the bedside. Hemoglobin this morning 6.3. Creatinine improved to 3.8 REVIEW OF SYSTEMS: CONSTITUTIONAL: No fever,. Complaining of malaise CARDIOVASCULAR: No chest pain, no palpitations, no syncope. PULMONARY: No shortness of breath, no cough, GASTROINTESTINAL: No diarrhea, no nausea, no vomiting, no abdominal pain. NEUROLOGICAL: No headaches, no weakness, PHYSICAL EXAMINATION: GENERAL: The patient is alert but lethargic, not in any acute distress. Well developed, well nourished. HEENT: Pupils are round and equally reacting to light. EOMI. No scleral icterus. No conjunctival pallor. Normocephalic, atraumatic. No pharyngeal erythema. No thyromegaly. CARDIOVASCULAR: S1 and S2 present. No murmurs, rubs, or gallops. PULMONARY: Chest is clear to auscultation, no wheezing or crackles. ABDOMEN: Soft, nontender, nondistended, normoactive bowel sounds. No palpable organomegaly. MUSCULOSKELETAL: No joint swelling or deformity. EXTREMITIES: No cyanosis, clubbing, or pedal edema. NEUROLOGICAL: Gross neurological examination did not reveal any focal deficits. SKIN: No rashes. Assessment and plan Fever of unknown origin Multiple myeloma Pancytopenia due to antineoplastic chemotherapy Acute kidney injury, prerenal. Start IV fluids CK D stage IV IIIB to 4 with serum creatinine at 2.3-2.4 mg/dL as of November 2022. Etiology is multiple myelom Plan; Monitor vital signs Monitor CBC Monitor CMP Continue telemetry monitoring Follow-up on blood cultures Continue IV Zosyn. Continue IV fluids Continue oral sodium bicarb Follow-up in nephrology recommendations Follow-up in ID recs Follow-up on hematology oncology recommendations, hematology plan for patient to undergo salvage treatment for additional disease control prior to undergoing CAR-T -Transfuse for hemoglobin less than 7, Will transfuse 1 unit of packed red blood cells his hemoglobin is 6.3 -Transfuse for platelets less than or equal to 10,000 or bleeding Objective - Vital Signs Vital signs: Vital Signs Temp 97.4 F L 01/11/23 07:59 Pulse 66 01/11/23 07:59 Resp 17 01/11/23 07:59 BP 101/59 01/11/23 07:59 Pulse Ox 97 01/11/23 09:46 FiO2 Intake & Output 01/10/23 01/11/23 01/11/23 18:59 06:59 18:59 Output Total 601 750 Balance -601 -750 Output: Urine 600 750 Stool 1 Other: Voiding Method External Catheter - Labs CBC & Chem 7: 01/11/23 04:40 01/11/23 04:40 Labs: Abnormal Lab Results - Last 24 Hours (Table) 01/10/23 01/10/23 01/10/23 Range/Units 12:01 12:01 18:11 WBC 2.82 L (4.50-10.00) X 10*3/uL RBC 2.05 L (4.40-5.60) X 10*6/uL Hgb 6.2 L* (13.0-17.0) g/dL Hct 20.4 L (39.6-50.0) % MCV 99.5 H (80.0-97.0) fL MCHC 30.4 L (32.0-37.0) g/dL RDW 18.0 H (11.5-14.5) % Plt Count 65 L (140-440) X 10*3/uL Plt Count Comment DECREASED A Immature Gran # 0.05 H (0.00-0.04) X 10*3/uL Neutrophils # (1.3-7.7) k/uL Lymphocytes # 0.36 L (0.90-5.00) X 10*3/uL Sodium (135-145) mmol/L Carbon Dioxide 17 L (22-30) mmol/L BUN 27 H (9-20) mg/dL Creatinine 4.02 H (0.66-1.25) mg/dL Est GFR (CKD-EPI)AfAm (60.0-200.0) Est GFR (CKD-EPI)NonAf (60.0-200.0) BUN/Creatinine Ratio (12.00-20.00) Ratio Glucose 70 L (74-99) mg/dL Crossmatch See Detail 01/11/23 01/11/23 Range/Units 04:40 04:40 WBC 1.8 L (4.50-10.00) X 10*3/uL RBC 2.06 L (4.40-5.60) X 10*6/uL Hgb 6.3 L* (13.0-17.0) g/dL Hct 19.8 L* (39.6-50.0) % MCV (80.0-97.0) fL MCHC (32.0-37.0) g/dL RDW 17.9 H (11.5-14.5) % Plt Count 52 L (140-440) X 10*3/uL Plt Count Comment Immature Gran # (0.00-0.04) X 10*3/uL Neutrophils # 1.2 L (1.3-7.7) k/uL Lymphocytes # 0.4 L (0.90-5.00) X 10*3/uL Sodium 132 L (135-145) mmol/L Carbon Dioxide 18.8 L (22-30) mmol/L BUN (9-20) mg/dL Creatinine 3.8 H (0.66-1.25) mg/dL Est GFR (CKD-EPI)AfAm 17.8 L (60.0-200.0) Est GFR (CKD-EPI)NonAf 15.3 L (60.0-200.0) BUN/Creatinine Ratio 6.24 L (12.00-20.00) Ratio Glucose 65 L (74-99) mg/dL Crossmatch Microbiology - Last 24 Hours (Table) 01/08/23 19:15 Blood Culture - Preliminary Blood No Growth after 48 hours 01/08/23 19:15 Blood Culture - Preliminary Blood No Growth after 48 hours
[2023-01-11] MEDS: GABAPENTIN 300 MG CAP PO SCH (20:47)
[2023-01-11] MEDS: CALCIUM CARBONATE 500 MG CHEWABLE PO SCH (20:47)
--- NOTE | 2023-01-11 23:00 | P.PN ---
Subjective Progress Note Date: 01/11/23 Principal diagnosis: Fever Patient is a 67-year-old male with a past medical history significant for multiple myeloma on chemotherapy patient also history of hyperlipidemia coronary disease PE and custodial resident patient was brought into the ER for evaluation of fever , Patient also have an episode of vomiting and persistent in the left lower quadrant. On today's evaluation that is 01/11/2023, the patient is afebrile , Pt is slightly sleepy today and not a good historian, pt did have bowel movement last night per , no further nausea vomiting no chest pain shortness of breath or cough Objective - Vital Signs Vital signs: Vital Signs Temp 96.7 F L 01/11/23 12:37 Pulse 68 01/11/23 12:37 Resp 15 01/11/23 12:37 BP 106/67 01/11/23 12:37 Pulse Ox 97 01/11/23 12:37 FiO2 Intake & Output 01/10/23 01/11/23 01/11/23 18:59 06:59 18:59 Intake Total 310 Output Total 601 750 Balance -601 -750 310 Intake: Blood Product 310 Rc Irr As1 Unit 310 [id number] Output: Urine 600 750 Stool 1 Other: Voiding Method External Catheter - Exam GENERAL DESCRIPTION: Elderly male lying in bed in no distress RESPIRATORY SYSTEM: Unlabored breathing , decreased breath sounds at bases HEART: S1 S2 regular rate and rhythm ,no loud murmurs ABDOMEN: Soft , no tenderness EXTREMITIES: No edema feet - Labs CBC & Chem 7: 01/11/23 04:40 01/11/23 04:40 Labs: Abnormal Lab Results - Last 24 Hours (Table) 01/10/23 01/10/23 01/11/23 Range/Units 12:01 18:11 04:40 WBC 2.82 L 1.8 L (4.50-10.00) X 10*3/uL RBC 2.05 L 2.06 L (4.40-5.60) X 10*6/uL Hgb 6.2 L* 6.3 L* (13.0-17.0) g/dL Hct 20.4 L 19.8 L* (39.6-50.0) % MCV 99.5 H (80.0-97.0) fL MCHC 30.4 L (32.0-37.0) g/dL RDW 18.0 H 17.9 H (11.5-14.5) % Plt Count 65 L 52 L (140-440) X 10*3/uL Plt Count Comment DECREASED A Immature Gran # 0.05 H (0.00-0.04) X 10*3/uL Neutrophils # 1.2 L (1.3-7.7) k/uL Lymphocytes # 0.36 L 0.4 L (0.90-5.00) X 10*3/uL Sodium (135-145) mmol/L Carbon Dioxide (20.0-27.5) mmol/L Creatinine (0.6-1.5) mg/dL Est GFR (CKD-EPI)AfAm (60.0-200.0) Est GFR (CKD-EPI)NonAf (60.0-200.0) BUN/Creatinine Ratio (12.00-20.00) Ratio Glucose (70-110) mg/dL Crossmatch See Detail 01/11/23 Range/Units 04:40 WBC (4.50-10.00) X 10*3/uL RBC (4.40-5.60) X 10*6/uL Hgb (13.0-17.0) g/dL Hct (39.6-50.0) % MCV (80.0-97.0) fL MCHC (32.0-37.0) g/dL RDW (11.5-14.5) % Plt Count (140-440) X 10*3/uL Plt Count Comment Immature Gran # (0.00-0.04) X 10*3/uL Neutrophils # (1.3-7.7) k/uL Lymphocytes # (0.90-5.00) X 10*3/uL Sodium 132 L (135-145) mmol/L Carbon Dioxide 18.8 L (20.0-27.5) mmol/L Creatinine 3.8 H (0.6-1.5) mg/dL Est GFR (CKD-EPI)AfAm 17.8 L (60.0-200.0) Est GFR (CKD-EPI)NonAf 15.3 L (60.0-200.0) BUN/Creatinine Ratio 6.24 L (12.00-20.00) Ratio Glucose 65 L (70-110) mg/dL Crossmatch Microbiology - Last 24 Hours (Table) 01/08/23 19:15 Blood Culture - Preliminary Blood No Growth after 48 hours 01/08/23 19:15 Blood Culture - Preliminary Blood No Growth after 48 hours Assessment and Plan (1) Fever Current Visit: Yes Status: Acute Priority: High Code(s): R50.9 - FEVER, UNSPECIFIED SNOMED Code(s): 887652525 Plan: 1patient was in the hospital with a fever and did have an episode of vomiting patient was noted to be slightly tender in the left lower quadrant area concerning for possible intra-abdominal source possible diverticulitis as currently not behaving as pneumonia chest x-ray was negative urine is negative influenza RSV and COVID testing was negative 2-patient with elevated creatinine high risk of nephrotoxicity 3- CT of abdominal pelvis with oral contrast , did not show any acute process but rectal feceloma , pt did have multiple BM since CT 4-Pt fever has resolved and to continue with Zosyn while waiting for cultures to be finalized Time with Patient: Less than 30
[2023-01-12] MEDS: LACTATED RINGERS 1,000 ML IV SCH ×2 (05:50→20:38)
[2023-01-12] MEDS: PIPERACILLIN-TAZOBACTAM 3.375 GM in SODIUM CHLORIDE 0.9% 100 ML IVPB SCH ×3 (05:50→22:45)
[2023-01-12 06:02] LABS: Anisocytosis Slight; HCT 24.6 % (39.0-53.0); HGB 8.4 gm/dL (13.0-17.5); MCH 31.7 pg (25.0-35.0); MCHC 34.2 g/dL (31.0-37.0); MCV 92.7 fL (80.0-100.0); Mean Platelet Volume 8.6; Platelet Count 48 k/uL (150-450); Poikilocytosis Slight; RBC 2.66 m/uL (4.30-5.90); RDW 18.2 % (11.5-15.5)
[2023-01-12 06:49] LABS: Band Neutrophils % 2 %; Eosinophils # (M) 0.08 k/uL (0-0.7); Lymphocytes # (M) 0.26 k/uL (1.0-4.8); Metamyelocytes # (M) 0.02 k/uL (0); Metamyelocytes % 1 %; Monocytes # (M) 0.32 k/uL (0-1.0); Myelocytes # (M) 0.04 k/uL (0); Myelocytes % 2 %; Neutrophils % (M) 62 %; Nucleated Red Blood Cells 0 /100 WBC (0-0); RBC Morphology Normal; Total Cells Counted 100
--- NOTE | 2023-01-12 09:22 | CT ---
EXAMINATION TYPE: CT brain wo con DATE OF EXAM: 01/12/2023 COMPARISON: 12/29/2022 HISTORY: Altered mental status Unenhanced CT of the brain was performed. The ventricles, basal cisterns and sulci overlying the cerebral convexities demonstrate mild enlargem ent. There is no evidence for intracranial hemorrhage or sulcal effacement. There is decreased attenuation about the periventricular white matter and deep white matter of both c erebral hemispheres, compatible with chronic small vessel ischemia. Differential diagnosis does inclu de demyelination. No mass effects are seen.No midline shift. Osseous calvarium is intact. If symptoms persist consider MRI. IMPRESSION: 1. Age related atrophic and chronic small vessel ischemic change without acute intracranial process s een at this time.
[2023-01-12 09:30] LABS: African American GFR (CKD) 18.3 (60.0-200.0); Albumin 1.8 g/dL (3.8-4.9); Albumin/Globulin Ratio 0.24 (1.60-3.17); BUN/Creat Ratio 5.57 Ratio (12.00-20.00); Blood Urea Nitrogen 20.6 mg/dL (9.0-27.0); Calcium 9.5 mg/dL (8.7-10.3); Globulin 7.4 g/dL (1.6-3.3); Non-African American GFR(CKD) 15.8 (60.0-200.0); Potassium 4.3 mmol/L (3.5-5.5); Total Bilirubin 0.6 mg/dL (0.30-1.20); Total Protein 9.2 g/dL (6.2-8.2)
--- NOTE | 2023-01-12 12:23 | P.PN ---
Subjective Progress Note Date: 01/12/23 Principal diagnosis: fever at today's visit patient is resting comfortably in bed, is at bedside. Patient is lethargic today and confused. states this morning patient has become more confused and let nursing staff know at which time his CT head was ordered. CT negative for acute intracranial processes. Patient is A&O 1 Objective - Vital Signs Vital signs: Vital Signs Temp 97.3 F L 01/12/23 08:01 Pulse 71 01/12/23 08:01 Resp 17 01/12/23 08:01 BP 102/66 01/12/23 08:01 Pulse Ox 98 01/12/23 08:01 FiO2 Intake & Output 01/11/23 01/12/23 01/12/23 18:59 06:59 18:59 Intake Total 310 580 Output Total 850 300 Balance -540 280 Intake: Intake, IV Titration 100 Amount Piperacillin-Tazobactam 3 100 .375 gm In Sodium Chloride 0.9% 100 ml @ 25 mls/hr IVPB Q8H [facility] Rx#: [id number] Oral 480 Blood Product 310 Rc Irr As1 Unit 310 [id number] Output: Urine 850 300 Other: Voiding Method Incontinent Incontinent External Catheter External Catheter - Constitutional General appearance: Present: average body habitus, no acute distress - EENT Eyes: Present: anicteric sclerae, EOMI ENT: Present: hearing grossly normal - Respiratory Details: breathing is even and unlabored - Cardiovascular Details: skin is warm and dry - Integumentary Integumentary: Present: pale - Neurologic Neurologic Comment(s): pt is confused, lethargic, A&Ox1, left sided pronator drift noted, no facial droop or slurred speech present - Psychiatric Psychiatric: Present: A&O x's 3 - Labs CBC & Chem 7: 01/12/23 04:55 01/12/23 04:55 Labs: Abnormal Lab Results - Last 24 Hours (Table) 01/10/23 01/12/23 01/12/23 Range/Units 18:11 04:55 04:55 WBC 2.0 L (3.8-10.6) k/uL RBC 2.66 L (4.30-5.90) m/uL Hgb 8.4 L D (13.0-17.5) gm/dL Hct 24.6 L (39.0-53.0) % RDW 18.2 H (11.5-15.5) % Plt Count 48 L (150-450) k/uL Neutrophils # (Manual) 1.20 L (1.3-7.7) k/uL Lymphocytes # (Manual) 0.26 L (1.0-4.8) k/uL Metamyelocytes # (Man) 0.02 H (0) k/uL Myelocytes # (Manual) 0.04 H (0) k/uL Sodium 134 L (135-145) mmol/L Creatinine 3.7 H (0.6-1.5) mg/dL Est GFR (CKD-EPI)AfAm 18.3 L (60.0-200.0) Est GFR (CKD-EPI)NonAf 15.8 L (60.0-200.0) BUN/Creatinine Ratio 5.57 L (12.00-20.00) Ratio AST 48 H (14-35) U/L Total Protein 9.2 H (6.2-8.2) g/dL Albumin 1.8 L (3.8-4.9) g/dL Globulin 7.4 H (1.6-3.3) g/dL Albumin/Globulin Ratio 0.24 L (1.60-3.17) g/dL Crossmatch See Detail Microbiology - Last 24 Hours (Table) 01/08/23 19:15 Blood Culture - Preliminary Blood No Growth after 72 hours 01/08/23 19:15 Blood Culture - Preliminary Blood No Growth after 72 hours Assessment and Plan (1) Pancytopenia Current Visit: Yes Status: Acute Code(s): D61.818 - OTHER PANCYTOPENIA SNOMED Code(s): 088974155 (2) Altered mental status Current Visit: Yes Status: Acute Code(s): R41.82 - ALTERED MENTAL STATUS, UNSPECIFIED SNOMED Code(s): 124830357 (3) Fever of unknown origin Current Visit: Yes Status: Acute Priority: High Code(s): R50.9 - FEVER, UNSPECIFIED SNOMED Code(s): 9160860 (4) Multiple myeloma Current Visit: Yes Status: Chronic Priority: High Code(s): C90.00 - MULTIPLE MYELOMA NOT HAVING ACHIEVED REMISSION SNOMED Code(s): 975055255 Plan: Fever of unknown origin -Afebrile since initial presentation on 01/08/2023 -Blood cultures from admission on 01/08/2023 are revealing no growth to date -Chest x-ray and CT abdomen/pelvis revealing no acute infectious process or diverticulitis -Appears to be clinically improved on empiric Zosyn -Continue empiric Zosyn for now pending at least 48 hours of no growth on blood cultures -If he develops additional fevers inpatient, noncontrast CT of the chest can be considered for additional work-up Refractory multiple myeloma -Has noted disease progression on Kyprolis/Pomalyst/dexamethasone -Has been seen by Dr. Gambino of [facility] in [place] to review CAR-T treatment on 01/07/2023 -Plan is to undergo salvage treatment for additional disease control prior to undergoing CAR-T. Once patient recovers from acute illness, will plan to begin CyBorD treatment inpatient Chemotherapy-induced pancytopenia -Secondary to treatment from multiple myeloma -Labs on admission did not necessitate transfusion. Hemoglobin 8.4 today, platelets 48,000. Received 1 unit PRBCs yesterday -Transfuse for hemoglobin less than 7 -Transfuse for platelets less than or equal to 10,000 or if bleeding Aletered mental status -Pt became confused this morning. CT head negative for acute intracranial processes. Of note pt was admitted 2 weeks ago for acute encephalopathy -MRI brain ordered. Neurology consulted
--- NOTE | 2023-01-12 13:35 | P.PN ---
Subjective Progress Note Date: 01/12/23 Patient is a 67-year-old male with history of chronic kidney disease NKF stage IIIB with baseline creatinine around 1.7-1.9 mg/dL secondary to multiple myeloma. Patient has underlying multiple myeloma status post chemotherapy and stem cell transplantation and immunotherapy. Multiple myeloma has progressed with bone metastasis and treatment is currently on hold since November 2022 due to multiple recent admissions and history of fever. Patient had acute kidney injury,mostly prerenal, during his last h ospitalization about 2 weeks ago. Serum creatinine had improved to about 3.1 from 6.7 at peak. Patient received IV hydration. Patient is admitted again with decreased oral intake, nausea and vomiting and increased weakness. Patient also had a fever of 10 2F. Patient had tremors/chills but no seizures according to his . Serum creatinine was 4.0 this admission. Patient has had good urine output. Currently with external catheter. 01/11/23. Patient seen and examined. Patient is lethargic. at the bedside. Hemoglobin this morning 6.3. Creatinine improved to 3.8 01/12. Patient seen and examined. Patient more confused according to nursing staff and . Able to give me time place and date of and president name. REVIEW OF SYSTEMS: CONSTITUTIONAL: No fever,. Complaining of malaise CARDIOVASCULAR: No chest pain, no palpitations, no syncope. PULMONARY: No shortness of breath, no cough, GASTROINTESTINAL: No diarrhea, no nausea, no vomiting, no abdominal pain. NEUROLOGICAL: No headaches, no weakness, PHYSICAL EXAMINATION: GENERAL: The patient is alert but lethargic, not in any acute distress. Well developed, well nourished. HEENT: Pupils are round and equally reacting to light. EOMI. No scleral icterus. No conjunctival pallor. Normocephalic, atraumatic. No pharyngeal erythema. No thyromegaly. CARDIOVASCULAR: S1 and S2 present. No murmurs, rubs, or gallops. PULMONARY: Chest is clear to auscultation, no wheezing or crackles. ABDOMEN: Soft, nontender, nondistended, normoactive bowel sounds. No palpable organomegaly. MUSCULOSKELETAL: No joint swelling or deformity. EXTREMITIES: No cyanosis, clubbing, or pedal edema. NEUROLOGICAL: Gross neurological examination did not reveal any focal deficits. SKIN: No rashes. Assessment and plan Fever of unknown origin Multiple myeloma Pancytopenia due to antineoplastic chemotherapy Acute kidney injury, prerenal. Start IV fluids CK D stage IV IIIB to 4 with serum creatinine at 2.3-2.4 mg/dL as of November 2022. Etiology is multiple myelom Plan; Monitor vital signs Monitor CBC Monitor CMP Continue telemetry monitoring Follow-up on blood cultures Continue IV Zosyn. Continue IV fluids Continue oral sodium bicarb Follow-up in nephrology recommendations Follow-up in ID recs Follow-up on hematology oncology recommendations, hematology plan for patient to undergo salvage treatment for additional disease control prior to undergoing CAR-T -Transfuse for hemoglobin less than 7, Will transfuse 1 unit of packed red blood cells his hemoglobin is 6.3 -Transfuse for platelets less than or equal to 10,[address] head ordered negative for acute intracranial process. MRI brain ordered. Neurology consulted Objective - Vital Signs Vital signs: Vital Signs Temp 97.3 F L 01/12/23 08:01 Pulse 71 01/12/23 08:01 Resp 17 01/12/23 08:01 BP 102/66 01/12/23 08:01 Pulse Ox 98 01/12/23 08:01 FiO2 Intake & Output 01/11/23 01/12/23 01/12/23 18:59 06:59 18:59 Intake Total 310 580 Output Total 850 300 Balance -540 280 Intake: Intake, IV Titration 100 Amount Piperacillin-Tazobactam 3 100 .375 gm In Sodium Chloride 0.9% 100 ml @ 25 mls/hr IVPB Q8H [facility] Rx#: [id number] Oral 480 Blood Product 310 Rc Irr As1 Unit 310 [id number] Output: Urine 850 300 Other: Voiding Method Incontinent Incontinent External Catheter External Catheter - Labs CBC & Chem 7: 01/12/23 04:55 01/12/23 04:55 Labs: Abnormal Lab Results - Last 24 Hours (Table) 01/10/23 01/12/23 01/12/23 Range/Units 18:11 04:55 04:55 WBC 2.0 L (3.8-10.6) k/uL RBC 2.66 L (4.30-5.90) m/uL Hgb 8.4 L D (13.0-17.5) gm/dL Hct 24.6 L (39.0-53.0) % RDW 18.2 H (11.5-15.5) % Plt Count 48 L (150-450) k/uL Neutrophils # (Manual) 1.20 L (1.3-7.7) k/uL Lymphocytes # (Manual) 0.26 L (1.0-4.8) k/uL Metamyelocytes # (Man) 0.02 H (0) k/uL Myelocytes # (Manual) 0.04 H (0) k/uL Sodium 134 L (135-145) mmol/L Creatinine 3.7 H (0.6-1.5) mg/dL Est GFR (CKD-EPI)AfAm 18.3 L (60.0-200.0) Est GFR (CKD-EPI)NonAf 15.8 L (60.0-200.0) BUN/Creatinine Ratio 5.57 L (12.00-20.00) Ratio AST 48 H (14-35) U/L Total Protein 9.2 H (6.2-8.2) g/dL Albumin 1.8 L (3.8-4.9) g/dL Globulin 7.4 H (1.6-3.3) g/dL Albumin/Globulin Ratio 0.24 L (1.60-3.17) g/dL Crossmatch See Detail Microbiology - Last 24 Hours (Table) 01/08/23 19:15 Blood Culture - Preliminary Blood No Growth after 72 hours 01/08/23 19:15 Blood Culture - Preliminary Blood No Growth after 72 hours
[2023-01-12] MEDS: SODIUM BICARBONATE TAB 650 MG TAB PO SCH ×3 (13:45→20:40)
[2023-01-12] MEDS: ACYCLOVIR 200 MG CAP PO SCH ×2 (13:45→20:40)
[2023-01-12] MEDS: CHOLECALCIFEROL 25 MCG (1000 IU) TABLET PO SCH (13:45)
[2023-01-12] MEDS: APIXABAN 2.5 MG TABLET PO SCH ×2 (13:45→20:40)
[2023-01-12] MEDS: levETIRAcetam IV 750 MG in SODIUM CHLORIDE 0.9% 100 ML IVPB SCH ×2 (13:51→20:56)
--- NOTE | 2023-01-12 14:02 | P.PN ---
Subjective Patient is seen for follow-up for acute kidney injury and top of chronic kidney disease. Currently maintained on IV fluids. Renal function has improved with creatinine down to 3.7 from 4.0 yesterday. Hemoglobin improved to 8.4 from 6.3 after packed RBCs transfusion. No active bleeding noted Patient is overall feeling better according to his . Objective - Vital Signs Vital signs: Vital Signs Temp 97.3 F L 01/12/23 08:01 Pulse 71 01/12/23 08:01 Resp 17 01/12/23 08:01 BP 102/66 01/12/23 08:01 Pulse Ox 98 01/12/23 08:01 FiO2 Intake & Output 01/11/23 01/12/23 01/12/23 18:59 06:59 18:59 Intake Total 310 580 Output Total 850 300 Balance -540 280 Intake: Intake, IV Titration 100 Amount Piperacillin-Tazobactam 3 100 .375 gm In Sodium Chloride 0.9% 100 ml @ 25 mls/hr IVPB Q8H [facility] Rx#: [id number] Oral 480 Blood Product 310 Rc Irr As1 Unit 310 [id number] Output: Urine 850 300 Other: Voiding Method Incontinent Incontinent External Catheter External Catheter - Exam Comfortable, sleeping, but arousable Examination of the heart S1 and S2 Examination of the lungs bilateral breath sounds are heard Abdomen is soft nontender Examination lower extremity shows no evidence of edema. - Labs CBC & Chem 7: 01/12/23 04:55 01/12/23 04:55 Labs: Abnormal Lab Results - Last 24 Hours (Table) 01/12/23 01/12/23 Range/Units 04:55 04:55 WBC 2.0 L (3.8-10.6) k/uL RBC 2.66 L (4.30-5.90) m/uL Hgb 8.4 L D (13.0-17.5) gm/dL Hct 24.6 L (39.0-53.0) % RDW 18.2 H (11.5-15.5) % Plt Count 48 L (150-450) k/uL Neutrophils # (Manual) 1.20 L (1.3-7.7) k/uL Lymphocytes # (Manual) 0.26 L (1.0-4.8) k/uL Metamyelocytes # (Man) 0.02 H (0) k/uL Myelocytes # (Manual) 0.04 H (0) k/uL Sodium 134 L (135-145) mmol/L Creatinine 3.7 H (0.6-1.5) mg/dL Est GFR (CKD-EPI)AfAm 18.3 L (60.0-200.0) Est GFR (CKD-EPI)NonAf 15.8 L (60.0-200.0) BUN/Creatinine Ratio 5.57 L (12.00-20.00) Ratio AST 48 H (14-35) U/L Total Protein 9.2 H (6.2-8.2) g/dL Albumin 1.8 L (3.8-4.9) g/dL Globulin 7.4 H (1.6-3.3) g/dL Albumin/Globulin Ratio 0.24 L (1.60-3.17) g/dL Microbiology - Last 24 Hours (Table) 01/08/23 19:15 Blood Culture - Preliminary Blood No Growth after 72 hours 01/08/23 19:15 Blood Culture - Preliminary Blood No Growth after 72 hours Assessment and Plan Assessment: 1. Acute kidney injury, prerenal. Improving with IV hydration. 2. Recent episode of acute kidney injury with serum creatinine was as high as 6.7 but improved to 3.1 with hydration serum creatinine 3.1 on 01/01/2023. 3. CK D stage IV IIIB to 4 with serum creatinine at 2.3-2.4 mg/dL as of November 2022. Etiology is multiple myeloma 4. Progressive multiple myeloma with bony metastasis. History of stem cell transplant and immunotherapy. 5. Anemia, multifactorial 6. Fever with possible aspiration pneumonia maintained on antibiotics. ID has been consulted Plan: Continue IV fluids Continue with IV antibiotics Continue oral sodium bicarb, increased dose to 3 times a day Repeat labs in a.m.
--- NOTE | 2023-01-12 15:51 | P.CNNES ---
History of Present Illness Consult date: 01/12/23 Requesting physician: Ibrahima Hannah Reason for Consult: altered mental status History of Present Illness: This is a 67-year-old gentleman with history of seizures, pulmonary embolism on eliquis, multiple myeloma postchemotherapy, T12 fracture as well as multiple vertebral fracture due to multiple myeloma, coronary artery disease who presented emergency department for fevers. Camejo consulted for altered mental status Patient is known to our neurology service. Seems the patient has been having fever and fatigue according to the and was felt that he had underlying urinary tract infection area and according to the he still on the same medication of Keppra but did not know the dose but according to my last note on the 12/31/2022 he is on 750 mg every 12 hours. According to the son was also at bedside and the that they felt the patient to have the jerking of the upper extremity due to or several even though he is on the same Keppra medication. Upon reviewing the medical record seems the fever of unknown origin Of note on the 12/31/2022 patient had new onset seizure as well as the patient had the on MRI posterior reversible encephalopathy syndrome. Patient mentation drastically improved on last admission prior to discharge. Please refer to my note for further details. Some of the workup during this hospital visit consisted of: On initial presentation the patient had a fever of 102.1 max currently it's the resolved Hemoglobin was as low as a 6.2 and currently 3.4 His creatinine is 4.07 currently is 2.7 glucose had episodes as low as 65 currently 71. He could've the head ordered by the primary team is reported as age-related atrophy and chronic small vessel ischemic change without acute intracranial process seen at this time. I personally reviewed the CT and I agree there is no acute subacute ischemia, there is no bleed. Review of Systems Review of system is limited by poor positive and negative aspiration. 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, gait dysfunction-uses walker, bilateral pedal/ankle edema, PE 08/2019, chronic low back pain, past vertebral fractures, minimal CAD, shingelles twice, past R heel wound, elevated lipids in the past, History of Any Multi-Drug Resistant Organisms: None Reported Past Surgical History: Heart Catheterization, Orthopedic Surgery Additional Past Surgical History / Comment(s): excision of uvular lesion(benign) 2009, colonoscopy, dave knee arthroscopy, rt rotator cuff sx, moles removed from back(benign), bone marrow aspiration/bx, stem cell transplant 2016, Past Anesthesia/Blood Transfusion Reactions: No Reported Reaction Past Psychological History: No Psychological Hx Reported Smoking Status: Former smoker Past Alcohol Use History: None Reported Past Drug Use History: None Reported - Past Family History Father Family Medical History: Renal Disease, Vascular Disorder Additional Family Medical History / Comment(s): aaa. Father is . Mother Family Medical History: No Reported History Additional Family Medical History / Comment(s): mom is healthy Medications and Allergies Home Medications Medication Instructions Recorded Confirmed Type Acyclovir [Zovirax] 400 mg PO BID 07/07/22 01/08/23 History Apixaban [Eliquis] 2.5 mg PO BID 11/30/22 01/08/23 History Calcium Carbonate [Calcium] 600 mg PO HS 11/30/22 01/08/23 History Cholecalciferol [Vitamin D3 (25 25 mcg PO DAILY 11/30/22 01/08/23 History Mcg = 1000 Iu)] Sodium Bicarbonate Tab 650 mg PO BID 11/30/22 01/08/23 History oxyCODONE HCL [oxyCODONE HCL (IR)] 10 mg PO Q4H PRN #18 tab 01/02/23 01/08/23 Rx Gabapentin 300 mg PO HS 01/08/23 01/08/23 History levETIRAcetam [Keppra] 750 mg PO BID 01/08/23 01/08/23 History Allergies Allergy/AdvReac Type Severity Reaction Status Date / Time sulfamethoxazole Allergy Rash/Hives Verified 01/08/23 19:02 [From Bactrim] trimethoprim [From Bactrim] Allergy Rash/Hives Verified 01/08/23 19:02 Physical Examination - Vital Signs Vital Signs: Vital Signs Temp Pulse Resp BP Pulse Ox 01/12/23 08:01 97.3 F L 71 17 102/66 98 01/12/23 01:58 97.4 F L 73 15 95/58 95 01/11/23 20:00 97.9 F 78 18 100/64 96 Intake and Output 01/12/23 01/12/23 01/12/23 06:59 14:59 22:59 Intake Total 340 Output Total 300 Balance 40 Intake: Intake, IV Titration 100 Amount Piperacillin-Tazobactam 3 100 .375 gm In Sodium Chloride 0.9% 100 ml @ 25 mls/hr IVPB Q8H [facility] Rx#: [id number] Oral 240 Output: Urine 300 GENERAL: The patient is lying in bed and does not appear in acute distress. CHEST: The heart rate is regular rate rhythm. No murmurs to auscultation. LUNG: Clear to auscultation bilaterally no wheezing noted throughout. Not labored breathing. ABDOMEN/GI: Bowel sounds present in all 4 quadrants. No tenderness to palpation throughout. NEUROLOGICAL: Higher mental function: The patient is moderate to severe drowsy but is awakeable to voice. He is oriented to self and stated he was in the hospital. He is able to follow few simple commands (thumbs up and attempts to smile). Language is limited. , Cranial nerves: The pupils are round, equal and reactive to light. No facial weakenss. No dysarthria from limited language. Motor: The strength is limited but lifting bilateral upper above gravity and wiggling toes and no noticeable weakness. Normal bulk. Cerebellum: Unable to assess. Sensation: Unable to assess. Results - Laboratory Findings CBC and BMP: 01/12/23 04:55 01/12/23 04:55 Abnormal Lab Findings: Abnormal Labs 01/08/23 01/08/23 01/08/23 19:15 19:15 19:15 WBC RBC 2.25 L Hgb 7.1 L Hct 21.4 L MCV MCHC RDW 17.8 H Plt Count 68 L Plt Count Comment Immature Gran # Neutrophils # Neutrophils # (Manual) Lymphocytes # 0.6 L Lymphocytes # (Manual) Metamyelocytes # (Man) Myelocytes # (Manual) Sodium 135 L Carbon Dioxide 18 L BUN 32 H Creatinine 4.07 H Est GFR (CKD-EPI)AfAm Est GFR (CKD-EPI)NonAf BUN/Creatinine Ratio Glucose AST Total Protein 10.3 H Albumin 2.9 L Globulin Albumin/Globulin Ratio Urine Protein Urine Ketones Urine Blood Urine Bacteria IgG 7861.0 H IgA 1.7 L IgM 3.4 L Crossmatch 01/08/23 01/10/23 01/10/23 23:40 12:01 12:01 WBC 2.82 L RBC 2.05 L Hgb 6.2 L* Hct 20.4 L MCV 99.5 H MCHC 30.4 L RDW 18.0 H Plt Count 65 L Plt Count Comment DECREASED A Immature Gran # 0.05 H Neutrophils # Neutrophils # (Manual) Lymphocytes # 0.36 L Lymphocytes # (Manual) Metamyelocytes # (Man) Myelocytes # (Manual) Sodium Carbon Dioxide 17 L BUN 27 H Creatinine 4.02 H Est GFR (CKD-EPI)AfAm Est GFR (CKD-EPI)NonAf BUN/Creatinine Ratio Glucose 70 L AST Total Protein Albumin Globulin Albumin/Globulin Ratio Urine Protein 1+ H Urine Ketones 1+ H Urine Blood Trace H Urine Bacteria Rare H IgG IgA IgM Crossmatch 01/10/23 01/11/23 01/11/23 18:11 04:40 04:40 WBC 1.8 L RBC 2.06 L Hgb 6.3 L* Hct 19.8 L* MCV MCHC RDW 17.9 H Plt Count 52 L Plt Count Comment Immature Gran # Neutrophils # 1.2 L Neutrophils # (Manual) Lymphocytes # 0.4 L Lymphocytes # (Manual) Metamyelocytes # (Man) Myelocytes # (Manual) Sodium 132 L Carbon Dioxide 18.8 L BUN Creatinine 3.8 H Est GFR (CKD-EPI)AfAm 17.8 L Est GFR (CKD-EPI)NonAf 15.3 L BUN/Creatinine Ratio 6.24 L Glucose 65 L AST Total Protein Albumin Globulin Albumin/Globulin Ratio Urine Protein Urine Ketones Urine Blood Urine Bacteria IgG IgA IgM Crossmatch See Detail 01/12/23 01/12/23 04:55 04:55 WBC 2.0 L RBC 2.66 L Hgb 8.4 L D Hct 24.6 L MCV MCHC RDW 18.2 H Plt Count 48 L Plt Count Comment Immature Gran # Neutrophils # Neutrophils # (Manual) 1.20 L Lymphocytes # Lymphocytes # (Manual) 0.26 L Metamyelocytes # (Man) 0.02 H Myelocytes # (Manual) 0.04 H Sodium 134 L Carbon Dioxide BUN Creatinine 3.7 H Est GFR (CKD-EPI)AfAm 18.3 L Est GFR (CKD-EPI)NonAf 15.8 L BUN/Creatinine Ratio 5.57 L Glucose AST 48 H Total Protein 9.2 H Albumin 1.8 L Globulin 7.4 H Albumin/Globulin Ratio 0.24 L Urine Protein Urine Ketones Urine Blood Urine Bacteria IgG IgA IgM Crossmatch Assessment and Plan Assessment: Also mental status seems due to metabolic encephalopathy and patient has a fever of unknown origin History of seizures according to the he has subtle jerking of upper extremities (in past had left facial twitching and myoclonic jerks) Posterior reversible encephalopathy syndrome on MRI of the brain of 12/29/2022 admission Acute on chronic kidney insufficiency History of multiple myeloma and had chemotherapy Pancytopenia History of pulmonary embolism on Eliquis History of a T12 fracture with multiple vertebral fracture due to multiple myeloma History of coronary artery disease Dyslipidemia Plan: She is on 750 every 12 hours and cannot go any higher because of his kidney insufficiency so therefore added Vimpat 50 mg tablet twice a day especially since according to the he has subtle jerks of the upper extremity. If any issues with the Keppra 750 twice a day because of the kidney issues more than happy to go down to 500 g every 12 hours and go up on the the Vimpat . MRI of the brain without stat is ordered by the oncology team I ordered EEG. ID team is on board for the fever. If there is still continues to be unknown source for the fever and consider pursuing lumbar puncture. We'll defer the rest of the medical measure the primary team I spoke with the patient's and son who are bedside and answered all the questions. Thank you for the consultation Time with Patient: Greater than 30
--- NOTE | 2023-01-12 18:00 | MR ---
EXAMINATION TYPE: MR brain wo con DATE OF EXAM: 01/12/2023 COMPARISON: 12/30/2022 HISTORY: AMS. Multiplanar multi echo imaging of the brain performed without contrast. Ventricles have normal size. No mass effect or midline shift. The diffusion images show no sign of an acute infarct. On the FLAIR images there is abnormal increased symmetric signal in the white matter both occipital l obes also extending into the cortex. This is also present on the T2 images. The corpus callosum is intact. Sella turcica is intact. No evidence of orbital mass. The brainstem is intact. IMPRESSION: Symmetric abnormal increased signal in the occipital lobes and posterior parietal lobes in the rodriguez a nd white matter. This is predominantly white matter abnormality and could relate to microvascular isc hemia. I do not suspect demyelinating disease.
--- NOTE | 2023-01-12 19:41 | P.PN ---
Subjective Progress Note Date: 01/12/23 Principal diagnosis: Fever Patient is a 67-year-old male with a past medical history significant for multiple myeloma on chemotherapy patient also history of hyperlipidemia coronary disease PE and intermediate resident patient was brought into the ER for evaluation of fever , Patient also have an episode of vomiting and persistent in the left lower quadrant. On today's evaluation that is 01/12/2023, the patient remains to be afebrile , the patient is sleepy today however earlier the mentioned patient was able to answer appropriately, the patient did have bowel movement last night per , no further nausea vomiting no chest pain shortness of breath or cough Objective - Vital Signs Vital signs: Vital Signs Temp 97.3 F L 01/12/23 08:01 Pulse 71 01/12/23 08:01 Resp 17 01/12/23 08:01 BP 102/66 01/12/23 08:01 Pulse Ox 98 01/12/23 08:01 FiO2 Intake & Output 01/11/23 01/12/23 01/12/23 18:59 06:59 18:59 Intake Total 310 580 Output Total 850 300 Balance -540 280 Intake: Intake, IV Titration 100 Amount Piperacillin-Tazobactam 3 100 .375 gm In Sodium Chloride 0.9% 100 ml @ 25 mls/hr IVPB Q8H [facility] Rx#: [id number] Oral 480 Blood Product 310 Rc Irr As1 Unit 310 [id number] Output: Urine 850 300 Other: Voiding Method Incontinent Incontinent External Catheter External Catheter - Exam GENERAL DESCRIPTION: Elderly male lying in bed in no distress RESPIRATORY SYSTEM: Unlabored breathing , decreased breath sounds at bases HEART: S1 S2 regular rate and rhythm ,no loud murmurs ABDOMEN: Soft , no tenderness EXTREMITIES: No edema feet - Labs CBC & Chem 7: 01/12/23 04:55 01/12/23 04:55 Labs: Abnormal Lab Results - Last 24 Hours (Table) 01/12/23 01/12/23 Range/Units 04:55 04:55 WBC 2.0 L (3.8-10.6) k/uL RBC 2.66 L (4.30-5.90) m/uL Hgb 8.4 L D (13.0-17.5) gm/dL Hct 24.6 L (39.0-53.0) % RDW 18.2 H (11.5-15.5) % Plt Count 48 L (150-450) k/uL Neutrophils # (Manual) 1.20 L (1.3-7.7) k/uL Lymphocytes # (Manual) 0.26 L (1.0-4.8) k/uL Metamyelocytes # (Man) 0.02 H (0) k/uL Myelocytes # (Manual) 0.04 H (0) k/uL Sodium 134 L (135-145) mmol/L Creatinine 3.7 H (0.6-1.5) mg/dL Est GFR (CKD-EPI)AfAm 18.3 L (60.0-200.0) Est GFR (CKD-EPI)NonAf 15.8 L (60.0-200.0) BUN/Creatinine Ratio 5.57 L (12.00-20.00) Ratio AST 48 H (14-35) U/L Total Protein 9.2 H (6.2-8.2) g/dL Albumin 1.8 L (3.8-4.9) g/dL Globulin 7.4 H (1.6-3.3) g/dL Albumin/Globulin Ratio 0.24 L (1.60-3.17) g/dL Microbiology - Last 24 Hours (Table) 01/08/23 19:15 Blood Culture - Preliminary Blood No Growth after 72 hours 01/08/23 19:15 Blood Culture - Preliminary Blood No Growth after 72 hours Assessment and Plan (1) Fever Current Visit: Yes Status: Acute Priority: High Code(s): R50.9 - FEVER, UNSPECIFIED SNOMED Code(s): 625778636 Plan: 1patient was in the hospital with a fever and did have an episode of vomiting patient was noted to be slightly tender in the left lower quadrant area con cerning for possible intra-abdominal source possible diverticulitis as currently not behaving as pneumonia chest x-ray was negative urine is negative influenza RSV and COVID testing was negative 2-patient with elevated creatinine high risk of nephrotoxicity 3- CT of abdominal pelvis with oral contrast , did not show any acute process but rectal feceloma , pt did have multiple BM since CT 4-the patient fever has resolved and culture have been negative currently on Zosyn may transition short course of oral antibiotic on discharge Time with Patient: Less than 30
[2023-01-12] MEDS: GABAPENTIN 300 MG CAP PO SCH (20:40)
[2023-01-12] MEDS: CALCIUM CARBONATE 500 MG CHEWABLE PO SCH (20:40)
[2023-01-12] MEDS: LACOSAMIDE IV 50 MG in SODIUM CHLORIDE 0.9% 50 ML IVPB SCH (20:56)
[2023-01-13] MEDS: PIPERACILLIN-TAZOBACTAM 3.375 GM in SODIUM CHLORIDE 0.9% 100 ML IVPB SCH ×3 (05:16→23:59)
[2023-01-13] MEDS: APIXABAN 2.5 MG TABLET PO SCH ×2 (08:19→20:53)
[2023-01-13] MEDS: ACYCLOVIR 200 MG CAP PO SCH ×2 (08:19→21:44)
[2023-01-13] MEDS: levETIRAcetam IV 750 MG in SODIUM CHLORIDE 0.9% 100 ML IVPB SCH ×2 (08:25→20:53)
[2023-01-13] MEDS: CHOLECALCIFEROL 25 MCG (1000 IU) TABLET PO SCH (08:30)
[2023-01-13] MEDS: SODIUM BICARBONATE TAB 650 MG TAB PO SCH ×3 (08:30→20:53)
[2023-01-13 09:43] LABS: Anion Gap 14.1 mmol/L (10.00-18.00); BUN/Creat Ratio 5.14 Ratio (12.00-20.00); Blood Urea Nitrogen 18.5 mg/dL (9.0-27.0); Calcium 9.5 mg/dL (8.7-10.3); Carbon Dioxide 17.9 mmol/L (20.0-27.5); Non-African American GFR(CKD) 16.4 (60.0-200.0); Potassium 4.2 mmol/L (3.5-5.5)
[2023-01-13 11:17] LABS: Basophils # (A) 0 X 10*3/uL (0.00-0.10); Basophils % (A) 0 %; Eosinophils # (A) 0.12 X 10*3/uL (0.04-0.35); Eosinophils % (A) 5.3 %; HCT 22.3 % (39.6-50.0); HGB 7.1 g/dL (13.0-17.0); Immature Grans, Automated 3.1 %; Immature Platelet Fraction 2.3 % (1.1-6.1); Lymphocytes # (A) 0.54 X 10*3/uL (0.90-5.00); Lymphocytes % (A) 23.8 %; MCHC 31.8 g/dL (32.0-37.0); MCV 94.1 fL (80.0-97.0); Mean Platelet Volume 11.6 fL (9.5-12.2); Monocytes # (A) 0.28 X 10*3/uL (0.20-1.00); Monocytes % (A) 12.3 %; NRBC Per 100 WBC 0 /100 WBCS (0.0-0.0); Neutrophils # (A) 1.26 X 10*3/uL (1.80-7.70); Neutrophils % (A) 55.5 %; Platelet Count 43 X 10*3/uL (140-440); RBC 2.37 X 10*6/uL (4.40-5.60); RDW 18.2 % (11.5-14.5); Rouleaux PRESENT; WBC 2.27 X 10*3/uL (4.50-10.00)
[2023-01-13] MEDS: LACOSAMIDE IV 50 MG in SODIUM CHLORIDE 0.9% 50 ML IVPB SCH ×2 (11:54→21:44)
--- NOTE | 2023-01-13 12:16 | P.PN ---
Subjective Patient is seen for follow-up for acute kidney injury and top of chronic kidney disease. Currently maintained on IV fluids. Renal function has improved with creatinine down to 3.6 from 4.0 . Hemoglobin improved to 8.4 from 6.3 after packed RBCs transfusion. No active bleeding noted Patient is overall feeling better according to his . Objective - Vital Signs Vital signs: Vital Signs Temp 98.2 F 01/13/23 08:05 Pulse 78 01/13/23 08:05 Resp 16 01/13/23 08:05 BP 160/81 01/13/23 08:05 Pulse Ox 99 01/13/23 08:05 FiO2 Intake & Output 01/12/23 01/13/23 01/13/23 18:59 06:59 18:59 Intake Total 1075 Output Total 300 1900 Balance -300 -825 Intake: Intake, IV Titration 1075 Amount Lacosamide IV 50 mg In 50 Sodium Chloride 0.9% 50 ml @ 100 mls/hr IVPB BID [facility] Rx#:[id number] Lactated Ringers 1,000 ml 825 @ 75 mls/hr IV .[id number] [facility] Rx#:[id number] Piperacillin-Tazobactam 3 100 .375 gm In Sodium Chloride 0.9% 100 ml @ 25 mls/hr IVPB Q8H [facility] Rx#: [id number] levETIRAcetam IV 750 mg 100 In Sodium Chloride 0.9% 100 ml @ 400 mls/hr IVPB Q12HR [facility] Rx#:[id number] Output: Urine 300 1900 Other: Voiding Method Incontinent External Catheter External Catheter - Exam Patient is awake, in no acute distress. He is resting comfortably with no oxygen. O2 sats 99% on room air Comfortable, Examination lower extremity shows no evidence of edema. - Labs CBC & Chem 7: 01/13/23 04:06 01/13/23 04:06 Labs: Abnormal Lab Results - Last 24 Hours (Table) 01/13/23 01/13/23 Range/Units 04:06 04:06 WBC 2.27 L (4.50-10.00) X 10*3/uL RBC 2.37 L (4.40-5.60) X 10*6/uL Hgb 7.1 L (13.0-17.0) g/dL Hct 22.3 L (39.6-50.0) % MCHC 31.8 L (32.0-37.0) g/dL RDW 18.2 H (11.5-14.5) % Plt Count 43 L (140-440) X 10*3/uL Plt Count Comment A Immature Gran # 0.07 H (0.00-0.04) X 10*3/uL Neutrophils # 1.26 L (1.80-7.70) X 10*3/uL Lymphocytes # 0.54 L (0.90-5.00) X 10*3/uL Carbon Dioxide 17.9 L (20.0-27.5) mmol/L Creatinine 3.6 H (0.6-1.5) mg/dL Est GFR (CKD-EPI)AfAm 19.0 L (60.0-200.0) Est GFR (CKD-EPI)NonAf 16.4 L (60.0-200.0) BUN/Creatinine Ratio 5.14 L (12.00-20.00) Ratio Glucose 51 L (70-110) mg/dL Microbiology - Last 24 Hours (Table) 01/08/23 19:15 Blood Culture - Preliminary Blood No Growth after 96 hours 01/08/23 19:15 Blood Culture - Preliminary Blood No Growth after 96 hours Assessment and Plan Assessment: 1. Acute kidney injury, prerenal. Improving with IV hydration. 2. Recent episode of acute kidney injury with serum creatinine was as high as 6.7 but improved to 3.1 with hydration serum creatinine 3.1 on 01/01/2023. 3. CK D stage IV IIIB to 4 with serum creatinine at 2.3-2.4 mg/dL as of November 2022. Etiology is multiple myeloma. New baseline appears to be around 3.5 mg/dL now 4. Progressive multiple myeloma with bony metastasis. History of stem cell tr ansplant and immunotherapy. 5. Anemia, multifactorial 6. Fever with possible aspiration pneumonia maintained on antibiotics. ID has been consulted Plan: Continue IV fluids Continue with IV antibiotics Continue oral sodium bicarb, increased dose to 3 times a day Repeat labs in a.m.
--- NOTE | 2023-01-13 13:55 | P.PN ---
Subjective Progress Note Date: 01/13/23 Principal diagnosis: fever At today's visit patient is resting comfortably in bed, is at bedside. Patient is still lethargic today and confused. Mentation is same as yesterday. Arousable to verbal stimuli. A&O x 1. states that since yesterday pt has become more alert but this is transient. Objective - Vital Signs Vital signs: Vital Signs Temp 98.2 F 01/13/23 08:05 Pulse 78 01/13/23 08:05 Resp 16 01/13/23 08:05 BP 160/81 01/13/23 08:05 Pulse Ox 99 01/13/23 08:05 FiO2 Intake & Output 01/12/23 01/13/23 01/13/23 18:59 06:59 18:59 Intake Total 1075 Output Total 300 1900 Balance -300 -825 Intake: Intake, IV Titration 1075 Amount Lacosamide IV 50 mg In 50 Sodium Chloride 0.9% 50 ml @ 100 mls/hr IVPB BID [facility] Rx#:[id number] Lactated Ringers 1,000 ml 825 @ 75 mls/hr IV .[id number] [facility] Rx#:[id number] Piperacillin-Tazobactam 3 100 .375 gm In Sodium Chloride 0.9% 100 ml @ 25 mls/hr IVPB Q8H [facility] Rx#: [id number] levETIRAcetam IV 750 mg 100 In Sodium Chloride 0.9% 100 ml @ 400 mls/hr IVPB Q12HR [facility] Rx#:[id number] Output: Urine 300 1900 Other: Voiding Method Incontinent External Catheter External Catheter - Constitutional General appearance: Present: average body habitus, no acute distress - EENT Eyes: Present: anicteric sclerae, EOMI ENT: Present: hearing grossly normal - Respiratory Details: breathing is even and unlabored - Cardiovascular Details: skin is warm and dry - Integumentary Integumentary: Present: pale - Neurologic Neurologic Comment(s): lethargic, confused, A&Ox1 - Musculoskeletal Musculoskeletal: Present: generalized weakness - Psychiatric Psychiatric: Present: A&O x's 3, appropriate affect, intact judgment & insight - Labs CBC & Chem 7: 01/13/23 04:06 01/13/23 04:06 Labs: Abnormal Lab Results - Last 24 Hours (Table) 01/13/23 01/13/23 Range/Units 04:06 04:06 WBC 2.27 L (4.50-10.00) X 10*3/uL RBC 2.37 L (4.40-5.60) X 10*6/uL Hgb 7.1 L (13.0-17.0) g/dL Hct 22.3 L (39.6-50.0) % MCHC 31.8 L (32.0-37.0) g/dL RDW 18.2 H (11.5-14.5) % Plt Count 43 L (140-440) X 10*3/uL Plt Count Comment A Immature Gran # 0.07 H (0.00-0.04) X 10*3/uL Neutrophils # 1.26 L (1.80-7.70) X 10*3/uL Lymphocytes # 0.54 L (0.90-5.00) X 10*3/uL Carbon Dioxide 17.9 L (20.0-27.5) mmol/L Creatinine 3.6 H (0.6-1.5) mg/dL Est GFR (CKD-EPI)AfAm 19.0 L (60.0-200.0) Est GFR (CKD-EPI)NonAf 16.4 L (60.0-200.0) BUN/Creatinine Ratio 5.14 L (12.00-20.00) Ratio Glucose 51 L (70-110) mg/dL Microbiology - Last 24 Hours (Table) 01/08/23 19:15 Blood Culture - Preliminary Blood No Growth after 96 hours 01/08/23 19:15 Blood Culture - Preliminary Blood No Growth after 96 hours Assessment and Plan (1) Pancytopenia Current Visit: Yes Status: Acute Code(s): D61.818 - OTHER PANCYTOPENIA SNOMED Code(s): 635099882 (2) Altered mental status Current Visit: Yes Status: Acute Code(s): R41.82 - ALTERED MENTAL STATUS, UNSPECIFIED SNOMED Code(s): 023191944 (3) Fever of unknown origin Current Visit: Yes Status: Acute Priority: High Code(s): R50.9 - FEVER, UNSPECIFIED SNOMED Code(s): 7030348 (4) Multiple myeloma Current Visit: Yes Status: Chronic Priority: High Code(s): C90.00 - MULTIPLE MYELOMA NOT HAVING ACHIEVED REMISSION SNOMED Code(s): 333762042 Plan: Fever of unknown origin -Afebrile since initial presentation on 01/08/2023 -Blood cultures from admission on 01/08/2023 are revealing no growth to date -Chest x-ray and CT abdomen/pelvis revealing no acute infectious process or diverticulitis -Appears to be clinically improved on empiric Zosyn -Continue empiric Zosyn for now pending at least 48 hours of no growth on blood cultures -If he develops additional fevers inpatient, noncontrast CT of the chest can be considered for additional work-up Refractory multiple myeloma -Has noted disease progression on Kyprolis/Pomalyst/dexamethasone -Has been seen by Dr. Gambino of [facility] in [place] to review CAR-T treatment on 12/18 -Plan is to undergo salvage treatment for additional disease control prior to undergoing CAR-T. Once patient recovers from acute illness, will plan to begin CyBorD treatment or pulse dose dexamethasone depending on patient's progression. -Will consider discharge home with home care and home PT if pt is strong enough, so we are able to continue with treatment and not further delay his chemo therapy. Spoke in depth today with patient in family. agrees with POC. Chemotherapy-induced pancytopenia -Secondary to treatment from multiple myeloma -Labs on admission did not necessitate transfusion. Hemoglobin 7.1 today, platelets 43,000. Received 1 unit PRBCs on 01/11 -Transfuse for hemoglobin less than 7 -Transfuse for platelets less than or equal to 10,000 or if bleeding Aletered mental status -Pt became confused this yesterday. CT head negative for acute intracranial processes. Of note pt was admitted 2 weeks ago for acute encephalopathy -MRI brain revealed symmetric abnormal increased signal in the occipital lobes and posterior parietal lobes in the rodriguez and white matter. This is predominantly white matter abnormality and could related to microvascular ischemia. I do not suspect demyelinating disease. -Neurology consulted. EEG ordered. Patient is continued on Keppra and Vimpat was added per neurology team. If fever persists/returns, they will consider LP. attests: I have performed H&P and developed impression and plan of care for patient, discussed with dictator. I agree with dictated know, documented as a scribe
--- NOTE | 2023-01-13 13:57 | EEG ---
ELECTROENCEPHALOGRAM REPORT CLINICAL HISTORY: This is a 67-year-old gentleman with history of seizure who has altered mental status. The video EEG is obtained to evaluate for seizure epileptiform activity. RELEVANT MEDICATIONS: Keppra and Vimpat. EEG TYPE: A routine 21-channel EEG is performed with video using the 10/20 electrode placement system. DESCRIPTION: Background consists of zin-[id number] voltage of 1-1/2 to 2-1/2 nonrhythmic delta activity intermixed with theta activity. There was no physiological stage 2 sleep architecture. There is no focal slowing. Interictal and ictal: None. ACTIVATION PROCEDURE: Photic stimulation did not evoke a posterior driving response. There is no abnormality during the photic stimulation. Hyperventilation is not performed. CLINICAL INTERPRETATION: This is an abnormal routine EEG. The background slowing is suggestive of moderate-to- severe encephalopathy. Otherwise, there is no focal slowing, epileptiform discharge or seizure on the EEG. Clinical correlation is recommended. MMFELICIA / ELOY: [id number] /
[2023-01-13] MEDS: LACTATED RINGERS 1,000 ML IV SCH ×2 (14:07→23:59)
--- NOTE | 2023-01-13 14:35 | P.PN ---
Subjective Progress Note Date: 01/13/23 Patient is a 67-year-old male with history of chronic kidney disease NKF stage IIIB with baseline creatinine around 1.7-1.9 mg/dL secondary to multiple myeloma. Patient has underlying multiple myeloma status post chemotherapy and stem cell transplantation and immunotherapy. Multiple myeloma has progressed with bone metastasis and treatment is currently on hold since November 2022 due to multiple recent admissions and history of fever. Patient had acute kidney injury,mostly prerenal, during his last h ospitalization about 2 weeks ago. Serum creatinine had improved to about 3.1 from 6.7 at peak. Patient received IV hydration. Patient is admitted again with decreased oral intake, nausea and vomiting and increased weakness. Patient also had a fever of 10 2F. Patient had tremors/chills but no seizures according to his . Serum creatinine was 4.0 this admission. Patient has had good urine output. Currently with external catheter. 01/11/23. Patient seen and examined. Patient is lethargic. at the bedside. Hemoglobin this morning 6.3. Creatinine improved to 3.8 01/12. Patient seen and examined. Patient more confused according to nursing staff and . Able to give me time place and date of and president name. 01/13. Patient seen and examined. Hemoglobin this morning is 7.1, creatinine this morning is 3.6. Patient mental status waxes and wanes. REVIEW OF SYSTEMS: CONSTITUTIONAL: No fever,. Complaining of malaise CARDIOVASCULAR: No chest pain, no palpitations, no syncope. PULMONARY: No shortness of breath, no cough, GASTROINTESTINAL: No diarrhea, no nausea, no vomiting, no abdominal pain. NEUROLOGICAL: No headaches, no weakness, PHYSICAL EXAMINATION: GENERAL: The patient is alert but lethargic, not in any acute distress. Well developed, well nourished. HEENT: Pupils are round and equally reacting to light. EOMI. No scleral icterus. No conjunctival pallor. Normocephalic, atraumatic. No pharyngeal erythema. No thyromegaly. CARDIOVASCULAR: S1 and S2 present. No murmurs, rubs, or gallops. PULMONARY: Chest is clear to auscultation, no wheezing or crackles. ABDOMEN: Soft, nontender, nondistended, normoactive bowel sounds. No palpable organomegaly. MUSCULOSKELETAL: No joint swelling or deformity. EXTREMITIES: No cyanosis, clubbing, or pedal edema. NEUROLOGICAL: Gross neurological examination did not reveal any focal deficits. SKIN: No rashes. Assessment and plan Fever of unknown origin Multiple myeloma Pancytopenia due to antineoplastic chemotherapy Acute kidney injury, prerenal. Start IV fluids CK D stage IV IIIB to 4 with serum creatinine at 2.3-2.4 mg/dL as of November 2022. Etiology is multiple myelom Plan; Monitor vital signs Monitor CBC Monitor CMP Continue telemetry monitoring Follow-up on blood cultures Continue IV Zosyn. Continue IV fluids Continue oral sodium bicarb, does increased to 3 times daily Follow-up in nephrology recommendations Follow-up in ID recs Follow-up on hematology oncology recommendations, hematology plan for patient to undergo salvage treatment for additional disease control prior to undergoing CAR-T -Transfuse for hemoglobin less than 7, Will transfuse 1 unit of packed red blood cells his hemoglobin is 6.3 -Transfuse for platelets less than or equal to 10,[address] head ordered negative for acute intracranial process. Neurology evaluated the patient recommended continuing Keppra and added Vimpat, EEG pending Objective - Vital Signs Vital signs: Vital Signs Temp 98.2 F 01/13/23 08:05 Pulse 78 01/13/23 08:05 Resp 16 01/13/23 08:05 BP 160/81 01/13/23 08:05 Pulse Ox 99 01/13/23 08:05 FiO2 Intake & Output 01/12/23 01/13/23 01/13/23 18:59 06:59 18:59 Intake Total 1075 Output Total 300 1900 Balance -300 -825 Intake: Intake, IV Titration 1075 Amount Lacosamide IV 50 mg In 50 Sodium Chloride 0.9% 50 ml @ 100 mls/hr IVPB BID NNAMDI Rx#:[id number] Lactated Ringers 1,000 ml 825 @ 75 mls/hr IV .[id number] NNAMDI Rx#:[id number] Piperacillin-Tazobactam 3 100 .375 gm In Sodium Chloride 0.9% 100 ml @ 25 mls/hr IVPB Q8H NNAMDI Rx#: [id number] levETIRAcetam IV 750 mg 100 In Sodium Chloride 0.9% 100 ml @ 400 mls/hr IVPB Q12HR NNAMDI Rx#:[id number] Output: Urine 300 1900 Other: Voiding Method Incontinent External Catheter External Catheter - Labs CBC & Chem 7: 01/13/23 04:06 01/13/23 04:06 Labs: Abnormal Lab Results - Last 24 Hours (Table) 01/13/23 01/13/23 Range/Units 04:06 04:06 WBC 2.27 L (4.50-10.00) X 10*3/uL RBC 2.37 L (4.40-5.60) X 10*6/uL Hgb 7.1 L (13.0-17.0) g/dL Hct 22.3 L (39.6-50.0) % MCHC 31.8 L (32.0-37.0) g/dL RDW 18.2 H (11.5-14.5) % Plt Count 43 L (140-440) X 10*3/uL Plt Count Comment A Immature Gran # 0.07 H (0.00-0.04) X 10*3/uL Neutrophils # 1.26 L (1.80-7.70) X 10*3/uL Lymphocytes # 0.54 L (0.90-5.00) X 10*3/uL Carbon Dioxide 17.9 L (20.0-27.5) mmol/L Creatinine 3.6 H (0.6-1.5) mg/dL Est GFR (CKD-EPI)AfAm 19.0 L (60.0-200.0) Est GFR (CKD-EPI)NonAf 16.4 L (60.0-200.0) BUN/Creatinine Ratio 5.14 L (12.00-20.00) Ratio Glucose 51 L (70-110) mg/dL Microbiology - Last 24 Hours (Table) 01/08/23 19:15 Blood Culture - Preliminary Blood No Growth after 96 hours 01/08/23 19:15 Blood Culture - Preliminary Blood No Growth after 96 hours
--- NOTE | 2023-01-13 15:39 | P.PN ---
Subjective Progress Note Date: 01/13/23 The patient seen at bedside and he is accompanied with his and she feels is about the same. No seizure-like activities noted. Objective - Vital Signs Vital signs: Vital Signs Temp 98.2 F 01/13/23 08:05 Pulse 78 01/13/23 08:05 Resp 16 01/13/23 08:15 BP 160/81 01/13/23 08:05 Pulse Ox 99 01/13/23 08:05 FiO2 Intake & Output 01/12/23 01/13/23 01/13/23 18:59 06:59 18:59 Intake Total 1075 Output Total 300 1900 Balance -300 -825 Intake: Intake, IV Titration 1075 Amount Lacosamide IV 50 mg In 50 Sodium Chloride 0.9% 50 ml @ 100 mls/hr IVPB BID NNAMDI Rx#:[id number] Lactated Ringers 1,000 ml 825 @ 75 mls/hr IV .[id number] NNAMDI Rx#:[id number] Piperacillin-Tazobactam 3 100 .375 gm In Sodium Chloride 0.9% 100 ml @ 25 mls/hr IVPB Q8H NNAMDI Rx#: [id number] levETIRAcetam IV 750 mg 100 In Sodium Chloride 0.9% 100 ml @ 400 mls/hr IVPB Q12HR NNAMDI Rx#:[id number] Output: Urine 300 1900 Other: Voiding Method Incontinent External Catheter External Catheter External Catheter - Exam GENERAL: The patient is lying in bed and does not appear in acute distress. NEUROLOGICAL: Higher mental function: The patient is mildly to moderately drowsy but is awakeable to voice. He is oriented to self. He is able to follow few simple commands (thumbs up and and raising extremities to command). Language is limited. Cranial nerves: The pupils are round, equal and reactive to light. No facial weakenss. No dysarthria from limited language. Motor: The strength is limited but lifting bilateral upper above gravity and wiggling toes and no noticeable weakness. Normal bulk. Cerebellum: Unable to assess. Sensation: Unable to assess. Some of the workup during this hospital visit consisted of: On initial presentation the patient had a fever of 102.1 max currently it's the resolved Hemoglobin was as low as a 6.2 and currently 3.4 His creatinine is 4.07 currently is 2.7 glucose had episodes as low as 65 currently 71. He could've the head ordered by the primary team is reported as age-related atrophy and chronic small vessel ischemic change without acute intracranial pr ocess seen at this time. I personally reviewed the CT and I agree there is no acute subacute ischemia, there is no bleed. MR the brain is reported as symmetrical abnormal increased signal in the occi pital lobe and posterior parietal lobe and the rodriguez and white matter. This is predominantly white matter abnormality and could relate to microvascular ischemia. I do not suspect demyelinating disease. I personally reviewed the MRI and the patient has hyperintensity on the flare over the occipital parietal but must drastically improved compared to 12/30/2022 MRI - Labs CBC & Chem 7: 01/13/23 04:06 01/13/23 04:06 Labs: Abnormal Lab Results - Last 24 Hours (Table) 01/13/23 01/13/23 Range/Units 04:06 04:06 WBC 2.27 L (4.50-10.00) X 10*3/uL RBC 2.37 L (4.40-5.60) X 10*6/uL Hgb 7.1 L (13.0-17.0) g/dL Hct 22.3 L (39.6-50.0) % MCHC 31.8 L (32.0-37.0) g/dL RDW 18.2 H (11.5-14.5) % Plt Count 43 L (140-440) X 10*3/uL Plt Count Comment A Immature Gran # 0.07 H (0.00-0.04) X 10*3/uL Neutrophils # 1.26 L (1.80-7.70) X 10*3/uL Lymphocytes # 0.54 L (0.90-5.00) X 10*3/uL Carbon Dioxide 17.9 L (20.0-27.5) mmol/L Creatinine 3.6 H (0.6-1.5) mg/dL Est GFR (CKD-EPI)AfAm 19.0 L (60.0-200.0) Est GFR (CKD-EPI)NonAf 16.4 L (60.0-200.0) BUN/Creatinine Ratio 5.14 L (12.00-20.00) Ratio Glucose 51 L (70-110) mg/dL Microbiology - Last 24 Hours (Table) 01/08/23 19:15 Blood Culture - Preliminary Blood No Growth after 96 hours 01/08/23 19:15 Blood Culture - Preliminary Blood No Growth after 96 hours Assessment and Plan Assessment: Also mental status seems due to metabolic encephalopathy and patient has a fever of unknown origin History of seizures according to the he has subtle jerking of upper extremities (in past had left facial twitching and myoclonic jerks) History of Posterior reversible encephalopathy syndrome on MRI of the brain of 12/29/2022 admission and improving on this current MRI. Acute on chronic kidney insufficiency History of multiple myeloma and had chemotherapy Pancytopenia History of pulmonary embolism on Eliquis History of a T12 fracture with multiple vertebral fracture due to multiple myeloma History of coronary artery disease Dyslipidemia Plan: He is on Keppra 750mg every 12 hours and cannot go any higher because of his kidney insufficiency so therefore added Vimpat 50 mg one tablet twice a day (started on 01/12/23) especially since according to the he has subtle jerks of the upper extremity. If any issues with the Keppra 750 twice a day because of the kidney issues more than happy to go down to 500 g every 12 hours and go up on the the Vimpat . Routine EEG: Is abnormal. The background slowing suggestive of moderate to severe encephalopathy. Otherwise there is no focal slowing, epileptiform discharges or seizure on the EEG. ID team is on board for the fever. If there is still continues to be unknown source for the fever and consider pursuing lumbar puncture. We'll defer the rest of the medical measure the primary team I spoke with the patient's and all her questions were answered. Time with Patient: Less than 30
[2023-01-13] MEDS: CALCIUM CARBONATE 500 MG CHEWABLE PO SCH (20:53)
[2023-01-13] MEDS: GABAPENTIN 300 MG CAP PO SCH (20:53)
--- NOTE | 2023-01-13 21:11 | P.PN ---
Subjective Progress Note Date: 01/13/23 Principal diagnosis: Fever Patient is a 67-year-old male with a past medical history significant for multiple myeloma on chemotherapy patient also history of hyperlipidemia coronary disease PE and skilled nursing resident patient was brought into the ER for evaluation of fever , Patient also have an episode of vomiting and persistent in the left lower quadrant. On today's evaluation that is 01/13/2023, the patient continues to be afebrile , the patient is sleepy however arousable and did offer some simple questions patient remains to be on room air, no coughing vomiting or diarrhea has been reported Objective - Vital Signs Vital signs: Vital Signs Temp 98.2 F 01/13/23 08:05 Pulse 78 01/13/23 08:05 Resp 16 01/13/23 08:05 BP 160/81 01/13/23 08:05 Pulse Ox 99 01/13/23 08:05 FiO2 Intake & Output 01/12/23 01/13/23 01/13/23 18:59 06:59 18:59 Intake Total 1075 Output Total 300 1900 Balance -300 -825 Intake: Intake, IV Titration 1075 Amount Lacosamide IV 50 mg In 50 Sodium Chloride 0.9% 50 ml @ 100 mls/hr IVPB BID NNAMDI Rx#:[id number] Lactated Ringers 1,000 ml 825 @ 75 mls/hr IV .[id number] NNAMDI Rx#:[id number] Piperacillin-Tazobactam 3 100 .375 gm In Sodium Chloride 0.9% 100 ml @ 25 mls/hr IVPB Q8H NNAMDI Rx#: [id number] levETIRAcetam IV 750 mg 100 In Sodium Chloride 0.9% 100 ml @ 400 mls/hr IVPB Q12HR NNAMDI Rx#:[id number] Output: Urine 300 1900 Other: Voiding Method Incontinent External Catheter External Catheter - Exam GENERAL DESCRIPTION: Elderly male lying in bed in no distress RESPIRATORY SYSTEM: Unlabored breathing , decreased breath sounds at bases HEART: S1 S2 regular rate and rhythm ,no loud murmurs ABDOMEN: Soft , no tenderness EXTREMITIES: No edema feet - Labs CBC & Chem 7: 01/13/23 04:06 01/13/23 04:06 Labs: Abnormal Lab Results - Last 24 Hours (Table) 03/28/23 03/28/23 Range/Units 04:06 04:06 WBC 2.27 L (4.50-10.00) X 10*3/uL RBC 2.37 L (4.40-5.60) X 10*6/uL Hgb 7.1 L (13.0-17.0) g/dL Hct 22.3 L (39.6-50.0) % MCHC 31.8 L (32.0-37.0) g/dL RDW 18.2 H (11.5-14.5) % Plt Count 43 L (140-440) X 10*3/uL Plt Count Comment A Immature Gran # 0.07 H (0.00-0.04) X 10*3/uL Neutrophils # 1.26 L (1.80-7.70) X 10*3/uL Lymphocytes # 0.54 L (0.90-5.00) X 10*3/uL Carbon Dioxide 17.9 L (20.0-27.5) mmol/L Creatinine 3.6 H (0.6-1.5) mg/dL Est GFR (CKD-EPI)AfAm 19.0 L (60.0-200.0) Est GFR (CKD-EPI)NonAf 16.4 L (60.0-200.0) BUN/Creatinine Ratio 5.14 L (12.00-20.00) Ratio Glucose 51 L (70-110) mg/dL Microbiology - Last 24 Hours (Table) 01/08/23 19:15 Blood Culture - Preliminary Blood No Growth after 96 hours 01/08/23 19:15 Blood Culture - Preliminary Blood No Growth after 96 hours Assessment and Plan (1) Fever Current Visit: Yes Status: Acute Priority: High Code(s): R50.9 - FEVER, UNSPECIFIED SNOMED Code(s): 060126197 Plan: 1patient was in the hospital with a fever and did have an episode of vomiting patient was noted to be slightly tender in the left lower quadrant area concerning for possible intra-abdominal source possible diverticulitis as currently not behaving as pneumonia chest x-ray was negative urine is negative influenza RSV and COVID testing was negative 2-patient with elevated creatinine high risk of nephrotoxicity 3- CT of abdominal pelvis with oral contrast , did not show any acute process but rectal feceloma , pt did have multiple BM since CT 4-the patient fever has resolved and culture have been negative , continue with the Zosyn and monitor clinical course closely at the bedside questions were answered Time with Patient: Less than 30
[2023-01-14] MEDS: PIPERACILLIN-TAZOBACTAM 3.375 GM in SODIUM CHLORIDE 0.9% 100 ML IVPB SCH ×3 (06:42→22:30)
[2023-01-14 08:01] LABS: African American GFR (CKD) 19 (>60 ml/min/1.73 sqM); Anion Gap 21 mmol/L; Blood Urea Nitrogen 16 mg/dL (9-20); Calcium 9.6 mg/dL (8.4-10.2); Carbon Dioxide 11 mmol/L (22-30); Chloride 112 mmol/L (98-107); Glucose 60 mg/dL (74-99); Magnesium 1.6 mg/dL (1.6-2.3); Non-African American GFR(CKD) 16 (>60 ml/min/1.73 sqM); Potassium 4.1 mmol/L (3.5-5.1); Sodium 144 mmol/L (137-145)
[2023-01-14 08:05] LABS: Anisocytosis Slight; Basophils % (A) 1 %; Eosinophils # (A) 0.1 k/uL (0-0.7); Eosinophils % (A) 5 %; HCT 22.8 % (39.0-53.0); HGB 7.4 gm/dL (13.0-17.5); Hypochromasia Slight; Lymphocytes # (A) 0.6 k/uL (1.0-4.8); Lymphocytes % (A) 24 %; MCH 30.8 pg (25.0-35.0); MCHC 32.5 g/dL (31.0-37.0); MCV 94.9 fL (80.0-100.0); Macrocytosis Slight; Mean Platelet Volume 9.7; Monocytes # (A) 0.2 k/uL (0-1.0); Monocytes % (A) 8 %; Neutrophils # (A) 1.5 k/uL (1.3-7.7); Neutrophils % (A) 60 %; Poikilocytosis Slight; RBC 2.41 m/uL (4.30-5.90); WBC 2.4 k/uL (3.8-10.6)
[2023-01-14 08:06] LABS: Platelet Count 44 k/uL (150-450)
[2023-01-14] MEDS: APIXABAN 2.5 MG TABLET PO SCH ×2 (09:12→22:50)
[2023-01-14] MEDS: ACYCLOVIR 200 MG CAP PO SCH ×2 (09:12→22:50)
[2023-01-14] MEDS: CHOLECALCIFEROL 25 MCG (1000 IU) TABLET PO SCH (09:12)
[2023-01-14] MEDS: SODIUM BICARBONATE TAB 650 MG TAB PO SCH ×3 (09:12→22:30)
[2023-01-14] MEDS: levETIRAcetam IV 750 MG in SODIUM CHLORIDE 0.9% 100 ML IVPB SCH ×2 (09:13→22:29)
[2023-01-14] MEDS: DEXTROSE 5% IN WATER 1,000 ML with SODIUM BICARB (1 MEQ/ML) 150 ML IV SCH ×2 (10:18→23:09)
[2023-01-14] MEDS: LACOSAMIDE IV 50 MG in SODIUM CHLORIDE 0.9% 50 ML IVPB SCH ×2 (10:18→23:09)
--- NOTE | 2023-01-14 11:34 | P.PN ---
Subjective Patient is seen for follow-up for acute kidney injury and top of chronic kidney disease. Currently maintained on IV fluids. Renal function has improved with creatinine down to 3.6 from 4.0 . This morning patient is lethargic. He has not been eating much according to his . Labs show CO2 is down to 11. Serum creatinine staying at 3.6. 24-hour urine output at 2.2 L. Objective - Vital Signs Vital signs: Vital Signs Temp 97.4 F L 01/14/23 07:14 Pulse 86 01/14/23 07:14 Resp 16 01/14/23 07:14 BP 156/83 01/14/23 07:14 Pulse Ox 95 01/14/23 08:50 FiO2 Intake & Output 01/13/23 01/14/23 01/14/23 18:59 06:59 18:59 Intake Total 1050 Output Total 950 1200 Balance -950 -150 Intake: Intake, IV Titration 1050 Amount Lacosamide IV 50 mg In 50 Sodium Chloride 0.9% 50 ml @ 100 mls/hr IVPB BID NNAMDI Rx#:[id number] Lactated Ringers 1,000 ml 900 @ 75 mls/hr IV .[id number] NNAMDI Rx#:[id number] Piperacillin-Tazobactam 3 100 .375 gm In Sodium Chloride 0.9% 100 ml @ 25 mls/hr IVPB Q8H NNAMDI Rx#: [id number] Output: Urine 950 1200 Other: Voiding Method External Catheter External Catheter # Bowel Movements 1 - Exam Patient is sleeping but arousable. Does not follow commands today He is comfortable. O2 sats 95% on room air Examination of the heart S1 and S2 Examination of the lungs bilateral breath sounds are heard Abdomen is soft nontender Examination of lower extremity shows no significant edema - Labs CBC & Chem 7: 01/14/23 07:20 01/14/23 07:20 Labs: Abnormal Lab Results - Last 24 Hours (Table) 01/14/23 01/14/23 01/14/23 Range/Units 07:20 07:20 10:03 WBC 2.4 L (3.8-10.6) k/uL RBC 2.41 L (4.30-5.90) m/uL Hgb 7.4 L (13.0-17.5) gm/dL Hct 22.8 L (39.0-53.0) % RDW 18.0 H (11.5-15.5) % Plt Count 44 L (150-450) k/uL Lymphocytes # 0.6 L (1.0-4.8) k/uL Chloride 112 H (98-107) mmol/L Carbon Dioxide 11 L (22-30) mmol/L Creatinine 3.65 H (0.66-1.25) mg/dL Glucose 60 L (74-99) mg/dL Ionized Calcium Noemí 6.0 H* (4.5-5.3) mg/dL Microbiology - Last 24 Hours (Table) 01/08/23 19:15 Blood Culture - Preliminary Blood No Growth after 120 hours 01/08/23 19:15 Blood Culture - Preliminary Blood No Growth after 120 hours Assessment and Plan Assessment: 1. Acute kidney injury, prerenal. Improved with IV hydration. Serum creatinine staying at about 3.6 with grams per deciliter 2. Recent episode of acute kidney injury with serum creatinine was as high as 6.7 but improved to 3.1 with hydration, serum creatinine 3.1 on 01/01/2023. 3. CK D stage IV IIIB to 4 with serum creatinine at 2.3-2.4 mg/dL as of November 2022. Etiology is multiple myeloma. New baseline appears to be around 3.5 mg/dL now 4. Progressive multiple myeloma with bony metastasis. History of stem cell transplant and immunotherapy. 5. Anemia, multifactorial 6. Fever with possible aspiration pneumonia maintained on antibiotics. ID has been consulted 7. Anion gap metabolic acidosis associated with acute kidney injury however worsened in the last 24 hours. No diarrhea reported. No significant abdominal pain. We'll start IV bicarb Plan: Change IV fluids to IV bicarb Repeat labs in a.m. Continue antibiotics.
--- NOTE | 2023-01-14 12:59 | P.PN ---
Subjective Progress Note Date: 01/14/23 The patient is seen at bedside and he is accompanied with his who states that he is having worsening of his mentation. Objective - Vital Signs Vital signs: Vital Signs Temp 97.4 F L 01/14/23 07:14 Pulse 86 01/14/23 07:14 Resp 16 01/14/23 07:14 BP 156/83 01/14/23 07:14 Pulse Ox 95 01/14/23 08:50 FiO2 Intake & Output 01/13/23 01/14/23 01/14/23 18:59 06:59 18:59 Intake Total 1050 Output Total 950 1200 800 Balance -950 -150 -800 Intake: Intake, IV Titration 1050 Amount Lacosamide IV 50 mg In 50 Sodium Chloride 0.9% 50 ml @ 100 mls/hr IVPB BID NNAMDI Rx#:[id number] Lactated Ringers 1,000 ml 900 @ 75 mls/hr IV .[id number] NNAMDI Rx#:[id number] Piperacillin-Tazobactam 3 100 .375 gm In Sodium Chloride 0.9% 100 ml @ 25 mls/hr IVPB Q8H NNAMDI Rx#: [id number] Output: Urine 950 1200 800 Other: Voiding Method External Catheter External Catheter # Bowel Movements 1 - Exam GENERAL: The patient is lying in bed and does not appear in acute distress. NEUROLOGICAL: Higher mental function: The patient is severely drowsy and minimally awakeable to voice. He followed on simple commands (thumbs up). Otherwise not verbalizing or following commands. Cranial nerves: No facial weakenss. Motor: The strength is limited but spontaneously lifting uppers above gravity on own. Cerebellum: Unable to assess. Sensation: Unable to assess. Some of the workup during this hospital visit consisted of: On initial presentation the patient had a fever of 102.1 max currently it's the resolved Hemoglobin was as low as a 6.2 and currently 3.4 His creatinine is 4.07 currently is 2.7 glucose had episodes as low as 65 currently 71. Then yesterday was low as 51. Ionized calcium is 6.0 He could've the head ordered by the primary team is reported as age-related atrophy and chronic small vessel ischemic change without acute intracranial process seen at this time. I personally reviewed the CT and I agree there is no acute subacute ischemia, there is no bleed. MR the brain is reported as symmetrical abnormal increased signal in the occipital lobe and posterior parietal lobe and the rodriguez and white matter. This is predominantly white matter abnormality and could relate to microvascular ischemia. I do not suspect demyelinating disease. I personally reviewed the MRI and the patient has hyperintensity on the flare over the occipital parietal but must drastically improved compared to 12/30/2022 MRI - Labs CBC & Chem 7: 01/14/23 07:20 01/14/23 07:20 Labs: Abnormal Lab Results - Last 24 Hours (Table) 01/14/23 01/14/23 01/14/23 Range/Units 07:20 07:20 10:03 WBC 2.4 L (3.8-10.6) k/uL RBC 2.41 L (4.30-5.90) m/uL Hgb 7.4 L (13.0-17.5) gm/dL Hct 22.8 L (39.0-53.0) % RDW 18.0 H (11.5-15.5) % Plt Count 44 L (150-450) k/uL Lymphocytes # 0.6 L (1.0-4.8) k/uL Chloride 112 H (98-107) mmol/L Carbon Dioxide 11 L (22-30) mmol/L Creatinine 3.65 H (0.66-1.25) mg/dL Glucose 60 L (74-99) mg/dL Ionized Calcium Noemí 6.0 H* (4.5-5.3) mg/dL Microbiology - Last 24 Hours (Table) 01/08/23 19:15 Blood Culture - Preliminary Blood No Growth after 120 hours 01/08/23 19:15 Blood Culture - Preliminary Blood No Growth after 120 hours Assessment and Plan Assessment: Also mental status seems due to metabolic encephalopathy. Has hypogylecmia (as low as 50's), elevated ionized calcium and patient has a fever of unknown origin History of seizures according to the he has subtle jerking of upper extremities (in past had left facial twitching and myoclonic jerks) History of Posterior reversible encephalopathy syndrome on MRI of the brain of 12/29/2022 admission and improving on this current MRI. Acute on chronic kidney insufficiency History of multiple myeloma and had chemotherapy Pancytopenia History of pulmonary embolism on Eliquis History of a T12 fracture with multiple vertebral fracture due to multiple myeloma History of coronary artery disease Dyslipidemia Plan: He is on Keppra 750mg every 12 hours and cannot go any higher because of his kidney insufficiency so therefore added Vimpat 50 mg one tablet twice a day (st arted on 01/12/23) especially since according to the he has subtle jerks of the upper extremity. If any issues with the Keppra 750 twice a day because of the kidney issues more than happy to go down to 500 g every 12 hours and go up on the the Vimpat . Routine EEG: Is abnormal. The background slowing suggestive of moderate to severe encephalopathy. Otherwise there is no focal slowing, epileptiform discharges or seizure on the EEG. ID team is on board for the fever. Agree with pursuing lumbar puncture to rule out any underlying encephalitis or meningitis. His avoid any hypoglycemia events and we'll defer the elevated calcium management to the primary team We'll defer the rest of the medical measure the primary team I spoke with the patient's in person and son (Eddi) via phone and all questions were answered. I discussed case with primary team. Time with Patient: Less than 30
--- NOTE | 2023-01-14 13:54 | P.PN ---
Subjective Progress Note Date: 01/14/23 Principal diagnosis: fever At today's visit patient his more lethargic and more confused today. Patient was arousable upon sternal rub but fell asleep quickly upon waking up. Speech was confused and he was unable to state who he was and where he was at. Objective - Vital Signs Vital signs: Vital Signs Temp 97.4 F L 01/14/23 07:14 Pulse 86 01/14/23 07:14 Resp 16 01/14/23 07:14 BP 156/83 01/14/23 07:14 Pulse Ox 95 01/14/23 08:50 FiO2 Intake & Output 01/13/23 01/14/23 01/14/23 18:59 06:59 18:59 Intake Total 1050 Output Total 950 1200 800 Balance -950 -150 -800 Intake: Intake, IV Titration 1050 Amount Lacosamide IV 50 mg In 50 Sodium Chloride 0.9% 50 ml @ 100 mls/hr IVPB BID NNAMDI Rx#:[id number] Lactated Ringers 1,000 ml 900 @ 75 mls/hr IV .[id number] NNAMDI Rx#:[id number] Piperacillin-Tazobactam 3 100 .375 gm In Sodium Chloride 0.9% 100 ml @ 25 mls/hr IVPB Q8H NNAMDI Rx#: [id number] Output: Urine 950 1200 800 Other: Voiding Method External Catheter External Catheter # Bowel Movements 1 - Constitutional General appearance: Present: average body habitus, no acute distress - EENT Eyes: Present: anicteric sclerae - Respiratory Details: breathing is even and unlabored - Cardiovascular Details: skin warm and dry - Integumentary Integumentary: Present: pale - Neurologic Neurologic Comment(s): lethargic, A&Ox 0, generalized weakness - Musculoskeletal Musculoskeletal: Present: generalized weakness - Labs CBC & Chem 7: 01/14/23 07:20 01/14/23 07:20 Labs: Abnormal Lab Results - Last 24 Hours (Table) 01/14/23 01/14/23 01/14/23 Range/Units 07:20 07:20 10:03 WBC 2.4 L (3.8-10.6) k/uL RBC 2.41 L (4.30-5.90) m/uL Hgb 7.4 L (13.0-17.5) gm/dL Hct 22.8 L (39.0-53.0) % RDW 18.0 H (11.5-15.5) % Plt Count 44 L (150-450) k/uL Lymphocytes # 0.6 L (1.0-4.8) k/uL Chloride 112 H (98-107) mmol/L Carbon Dioxide 11 L (22-30) mmol/L Creatinine 3.65 H (0.66-1.25) mg/dL Glucose 60 L (74-99) mg/dL Ionized Calcium Noemí 6.0 H* (4.5-5.3) mg/dL Microbiology - Last 24 Hours (Table) 01/08/23 19:15 Blood Culture - Preliminary Blood No Growth after 120 hours 01/08/23 19:15 Blood Culture - Preliminary Blood No Growth after 120 hours - Imaging and Cardiology EEG reviewed Assessment and Plan (1) Pancytopenia Current Visit: Yes Status: Acute Code(s): D61.818 - OTHER PANCYTOPENIA SNOMED Code(s): 784183965 (2) Altered mental status Current Visit: Yes Status: Acute Code(s): R41.82 - ALTERED MENTAL STATUS, UNSPECIFIED SNOMED Code(s): 196544554 (3) Fever of unknown origin Current Visit: Yes Status: Acute Priority: High Code(s): R50.9 - FEVER, UNSPECIFIED SNOMED Code(s): 7465127 (4) Multiple myeloma Current Visit: Yes Status: Chronic Priority: High Code(s): C90.00 - MULTIPLE MYELOMA NOT HAVING ACHIEVED REMISSION SNOMED Code(s): 051501861 Plan: Fever of unknown origin -Afebrile since initial presentation on 01/08/2023 -Blood cultures from admission on 01/08/2023 are revealing no growth to date -Chest x-ray and CT abdomen/pelvis revealing no acute infectious process or diverticulitis -Appears to be clinically improved on empiric Zosyn -Continues on empiric Zosyn -If he develops additional fevers inpatient, noncontrast CT of the chest can be considered for additional work-up Refractory multiple myeloma -Has noted disease progression on Kyprolis/Pomalyst/dexamethasone -Has been seen by Dr. Gambino of [facility] in [place] to review CAR-T treatment on 01/07/2023 -Plan is to undergo salvage treatment for additional disease control prior to undergoing CAR-T. Once patient recovers from acute illness, will plan to begin CyBorD treatment or pulse dose dexamethasone inpatient depending on patient's progression. -Will consider discharge home with home care and home PT if pt is strong enough, so we are able to continue with treatment and not further delay his chemotherapy. Spoke in depth today with patient in family. agrees with POC. Chemotherapy-induced pancytopenia -Secondary to treatment from multiple myeloma -Labs on admission did not necessitate transfusion. Hemoglobin 7.4 today, platelets 44,000. Received 1 unit PRBCs on 01/11 -Transfuse for hemoglobin less than 7 -Transfuse for platelets less than or equal to 10,000 or if bleeding Aletered mental status -CT head negative for acute intracranial processes. Of note pt was admitted 2 weeks ago for acute encephalopathy -MRI brain revealed symmetric abnormal increased signal in the occipital lobes and posterior parietal lobes in the rodriguez and white matter. This is predominantly white matter abnormality and could related to microvascular ischemia. I do not suspect demyelinating disease. -Neurology consulted. EEG revealed moderate to severe encephalopathy, no seizure activitiy noted. Patient is continued on Keppra and Vimpat was added per neurology team. If -Confusion has worsened today. Corrected calcium 11.4, ionized calcium 6.0. Calcium mildly elevated, not convinced at this point confusion is related to hypercalcemia, but will add 1 dose of pamidronate to see if confusion is improved. -Recommend lumbar puncture to r/o other etiologies
[2023-01-14] MEDS ORDERED: SODIUM CHLORIDE 0.9% 250 ML with PAMIDRONATE 60 MG IV ONE ×2 (14:15)
--- NOTE | 2023-01-14 14:39 | P.PN ---
Subjective Progress Note Date: 01/14/23 Principal diagnosis: Fever Patient is a 67-year-old male with a past medical history significant for multiple myeloma on chemotherapy patient also history of hyperlipidemia coronary disease PE and [facility] resident patient was brought into the ER for evaluation of fever , Patient also have an episode of vomiting and persistent in the left lower quadrant. On today's evaluation that is 01/14/2023, the patient remains to be afebrile , the patient is sleepy today and hard to arouse per the at the bedside, patient remains to be on room air, no coughing vomiting or diarrhea has been reported Objective - Vital Signs Vital signs: Vital Signs Temp 97.4 F L 01/14/23 07:14 Pulse 86 01/14/23 07:14 Resp 16 01/14/23 07:14 BP 156/83 01/14/23 07:14 Pulse Ox 95 01/14/23 08:50 FiO2 Intake & Output 01/13/23 01/14/23 01/14/23 18:59 06:59 18:59 Intake Total 1050 Output Total 950 1200 800 Balance -950 -150 -800 Intake: Intake, IV Titration 1050 Amount Lacosamide IV 50 mg In 50 Sodium Chloride 0.9% 50 ml @ 100 mls/hr IVPB BID NNAMDI Rx#:[id number] Lactated Ringers 1,000 ml 900 @ 75 mls/hr IV .[id number] NNAMDI Rx#:[id number] Piperacillin-Tazobactam 3 100 .375 gm In Sodium Chloride 0.9% 100 ml @ 25 mls/hr IVPB Q8H NNAMDI Rx#: [id number] Output: Urine 950 1200 800 Other: Voiding Method External Catheter External Catheter # Bowel Movements 1 - Exam GENERAL DESCRIPTION: Elderly male lying in bed in no distress RESPIRATORY SYSTEM: Unlabored breathing , decreased breath sounds at bases HEART: S1 S2 regular rate and rhythm ,no loud murmurs ABDOMEN: Soft , no tenderness EXTREMITIES: No edema feet - Labs CBC & Chem 7: 01/14/23 07:20 01/14/23 07:20 Labs: Abnormal Lab Results - Last 24 Hours (Table) 01/14/23 01/14/23 01/14/23 Range/Units 07:20 07:20 10:03 WBC 2.4 L (3.8-10.6) k/uL RBC 2.41 L (4.30-5.90) m/uL Hgb 7.4 L (13.0-17.5) gm/dL Hct 22.8 L (39.0-53.0) % RDW 18.0 H (11.5-15.5) % Plt Count 44 L (150-450) k/uL Lymphocytes # 0.6 L (1.0-4.8) k/uL Chloride 112 H (98-107) mmol/L Carbon Dioxide 11 L (22-30) mmol/L Creatinine 3.65 H (0.66-1.25) mg/dL Glucose 60 L (74-99) mg/dL Ionized Calcium Noemí 6.0 H* (4.5-5.3) mg/dL Microbiology - Last 24 Hours (Table) 01/08/23 19:15 Blood Culture - Preliminary Blood No Growth after 120 hours 01/08/23 19:15 Blood Culture - Preliminary Blood No Growth after 120 hours Assessment and Plan (1) Fever Current Visit: Yes Status: Acute Priority: High Code(s): R50.9 - FEVER, UNSPECIFIED SNOMED Code(s): 271342897 Plan: 1patient was in the hospital with a fever and did have an episode of vomiting patient was noted to be slightly tender in the left lower quadrant area concerning for possible intra-abdominal source possible diverticulitis as c urrently not behaving as pneumonia chest x-ray was negative urine is negative influenza RSV and COVID testing was negative 2-patient with elevated creatinine high risk of nephrotoxicity 3- CT of abdominal pelvis with oral contrast , did not show any acute process but rectal feceloma , pt did have multiple BM since CT 4-the patient fever has resolved and culture have been negative, mentation remains too many show an neurologist is considering LP which is appropriate results will be followed, discussed with the at the bedside continue Zosyn Time with Patient: Less than 30
--- NOTE | 2023-01-14 15:10 | P.PN ---
Subjective Progress Note Date: 01/14/23 Patient is a 67-year-old male with history of chronic kidney disease NKF stage IIIB with baseline creatinine around 1.7-1.9 mg/dL secondary to multiple myeloma. Patient has underlying multiple myeloma status post chemotherapy and stem cell transplantation and immunotherapy. Multiple myeloma has progressed with bone metastasis and treatment is currently on hold since November 2022 due to multiple recent admissions and history of fever. Patient had acute kidney injury,mostly prerenal, during his last h ospitalization about 2 weeks ago. Serum creatinine had improved to about 3.1 from 6.7 at peak. Patient received IV hydration. Patient is admitted again with decreased oral intake, nausea and vomiting and increased weakness. Patient also had a fever of 10 2F. Patient had tremors/chills but no seizures according to his . Serum creatinine was 4.0 this admission. Patient has had good urine output. Currently with external catheter. 01/11/23. Patient seen and examined. Patient is lethargic. at the bedside. Hemoglobin this morning 6.3. Creatinine improved to 3.8 01/12. Patient seen and examined. Patient more confused according to nursing staff and . Able to give me time place and date of and president name. 01/13. Patient seen and examined. Hemoglobin this morning is 7.1, creatinine this morning is 3.6. Patient mental status waxes and wanes. 01/14. Patient seen and examined. Patient is very lethargic today, continues to be afebrile. Has poor appetite. at the bedside REVIEW OF SYSTEMS: Cannot be obtained because of patient's lethargy PHYSICAL EXAMINATION: GENERAL: The patient is alert but lethargic, not in any acute distress. Well developed, well nourished. HEENT: Pupils are round and equally reacting to light. EOMI. No scleral icterus. No conjunctival pallor. Normocephalic, atraumatic. No pharyngeal erythema. No thyromegaly. CARDIOVASCULAR: S1 and S2 present. No murmurs, rubs, or gallops. PULMONARY: Chest is clear to auscultation, no wheezing or crackles. ABDOMEN: Soft, nontender, nondistended, normoactive bowel sounds. No palpable organomegaly. MUSCULOSKELETAL: No joint swelling or deformity. EXTREMITIES: No cyanosis, clubbing, or pedal edema. NEUROLOGICAL: Gross neurological examination did not reveal any focal deficits. SKIN: No rashes. Assessment and plan Fever of unknown origin Multiple myeloma Metabolic encephalopathy Pancytopenia due to antineoplastic chemotherapy Acute kidney injury, prerenal. Start IV fluids CK D stage IV IIIB to 4 with serum creatinine at 2.3-2.4 mg/dL as of November 2022. Hypercalcemia Plan; Monitor vital signs Monitor CBC Monitor CMP Continue telemetry monitoring Follow-up on blood cultures Continue IV Zosyn. Continue IV fluids Follow-up on hematology oncology recommendations, hematology plan for patient to undergo salvage treatment for additional disease control prior to undergoing CAR-T -Transfuse for hemoglobin less than 7, Will transfuse 1 unit of packed red blood cells his hemoglobin is 6.3 -Transfuse for platelets less than or equal to 10,[address] head ordered negative for acute intracranial process. Neurology evaluated the patient recommended continuing Keppra and added Vimpat, EEG showed moderate to severe encephalopathy LP being considered For hypercalcemia pamidronate ordered by hematology Follow-up in nephrology recommendations Follow-up in ID recs Objective - Vital Signs Vital signs: Vital Signs Temp 97.7 F 01/14/23 13:24 Pulse 86 01/14/23 13:24 Resp 17 01/14/23 13:24 BP 182/94 01/14/23 13:24 Pulse Ox 96 01/14/23 13:24 FiO2 Intake & Output 01/13/23 01/14/23 01/14/23 18:59 06:59 18:59 Intake Total 1050 Output Total 950 1200 800 Balance -950 -150 -800 Intake: Intake, IV Titration 1050 Amount Lacosamide IV 50 mg In 50 Sodium Chloride 0.9% 50 ml @ 100 mls/hr IVPB BID NNAMDI Rx#:[id number] Lactated Ringers 1,000 ml 900 @ 75 mls/hr IV .[id number] NNAMDI Rx#:[id number] Piperacillin-Tazobactam 3 100 .375 gm In Sodium Chloride 0.9% 100 ml @ 25 mls/hr IVPB Q8H NNAMDI Rx#: [id number] Output: Urine 950 1200 800 Other: Voiding Method External Catheter External Catheter External Catheter # Bowel Movements 1 - Labs CBC & Chem 7: 01/14/23 07:20 01/14/23 07:20 Labs: Abnormal Lab Results - Last 24 Hours (Table) 01/14/23 01/14/23 01/14/23 Range/Units 07:20 07:20 10:03 WBC 2.4 L (3.8-10.6) k/uL RBC 2.41 L (4.30-5.90) m/uL Hgb 7.4 L (13.0-17.5) gm/dL Hct 22.8 L (39.0-53.0) % RDW 18.0 H (11.5-15.5) % Plt Count 44 L (150-450) k/uL Lymphocytes # 0.6 L (1.0-4.8) k/uL Chloride 112 H (98-107) mmol/L Carbon Dioxide 11 L (22-30) mmol/L Creatinine 3.65 H (0.66-1.25) mg/dL Glucose 60 L (74-99) mg/dL Ionized Calcium Noemí 6.0 H* (4.5-5.3) mg/dL Microbiology - Last 24 Hours (Table) 01/08/23 19:15 Blood Culture - Preliminary Blood No Growth after 120 hours 01/08/23 19:15 Blood Culture - Preliminary Blood No Growth after 120 hours
[2023-01-14] MEDS: hydrALAZINE HCL 20 MG/ML 1 ML VIAL IVP PRN (17:00)
[2023-01-14] MEDS: CALCIUM CARBONATE 500 MG CHEWABLE PO SCH (22:50)
[2023-01-14] MEDS: GABAPENTIN 300 MG CAP PO SCH (22:50)
[2023-01-15] MEDS: PIPERACILLIN-TAZOBACTAM 3.375 GM in SODIUM CHLORIDE 0.9% 100 ML IVPB SCH ×2 (08:15→13:25)
[2023-01-15] MEDS ORDERED: SODIUM CHLORIDE 0.9% IVPB SCH ×2 (09:30→10:00)
[2023-01-15] MEDS ORDERED: ACYCLOVIR SODIUM IVPB SCH ×2 (09:30→10:00)
[2023-01-15] MEDS: APIXABAN 2.5 MG TABLET PO SCH (09:34)
[2023-01-15] MEDS: SODIUM BICARBONATE TAB 650 MG TAB PO SCH ×3 (09:44→23:49)
[2023-01-15] MEDS: CHOLECALCIFEROL 25 MCG (1000 IU) TABLET PO SCH (09:44)
[2023-01-15] MEDS: ACYCLOVIR 200 MG CAP PO SCH (09:45)
[2023-01-15] MEDS: levETIRAcetam IV 750 MG in SODIUM CHLORIDE 0.9% 100 ML IVPB SCH (09:46)
[2023-01-15 10:55] LABS: African American GFR (CKD) 20.9 (60.0-200.0); Albumin/Globulin Ratio 0.25 (1.60-3.17); Anion Gap 20.6 mmol/L (10.00-18.00); BUN/Creat Ratio 4.34 Ratio (12.00-20.00); Blood Urea Nitrogen 14.4 mg/dL (9.0-27.0); Calcium 9.3 mg/dL (8.7-10.3); Carbon Dioxide 14.5 mmol/L (20.0-27.5); Non-African American GFR(CKD) 18.1 (60.0-200.0); Potassium 4.1 mmol/L (3.5-5.5); Total Bilirubin 0.8 mg/dL (0.30-1.20)
[2023-01-15] MEDS: LACOSAMIDE IV 50 MG in SODIUM CHLORIDE 0.9% 50 ML IVPB SCH (11:06)
--- NOTE | 2023-01-15 11:18 | CDI ---
Documentation Clarification Form Date: 01/15/2023 11:15:31 AM From: Kath Ceja RN, CCDS Admit Date: 01/08/2023 10:56:00 PM Patient Name: Hernan Paul Visit Number: [id number] Discharge Date: ATTENTION: The Clinical Documentation Specialists (CDI) and [facility] Coding Staff appreciate your assistance in clarifying documentation. Please respond to the clarification below the line at the bottom and electronically sign. The CDI & [facility] Coding staff will review the response and follow-up if needed. Please note: Queries are made part of the Legal Health Record. If you have any questions, please contact the author of this message via ITS. Dr. Alireza Copeland 01/09 possibly aspiration pneumonia with Sepsis is documented in the H/P and subsequent progress notes on 01/10/23 but is not noted in subsequent documentation. Clarification is requested. 01/09 ID consult: Fever and did have an episode of vomiting currently not behaving as pneumonia chest x-ray was negative. 01/10 Nephology-consult note: Fever with possible aspiration pneumonia maintained on antibiotics. History/Risk Factors: Coronary artery disease, multiple myeloma, Hyperlipidemia, PE, Clinical Indicators: 67-year-old male present from [facility] with fever, shakes. He developed nausea and vomiting related to lunch. 01/08 Vital signs: 166/76 96 20 101.8 98% 01/08 Labs: WBC 4.0 HGB 7.1, HCT 21.4, Plt 68 Na+ 135 BUN 32, CR 4.07, Lactic acid 1.3, Influenza, RSV Covid all negative. 01/08 CXR: poor inspiration similar to old exam Healing rib fracture No pulmonary consolidation or heart failure. 01/09 CT abdomen/pelvis: No ac abdomen/pelvic process. Scattered colonic diverticulosis without evidence of acute diverticulitis. Multiple compression fractures redemonstrated. Hepatic steatosis Treatment: Telemetry monitoring .9NS IV 1,800 mls bolus 01/08 Zosyn 3.375 mg IVPB Q 8 HRS 01/09-01/15 Rocephin 2 GM IVPB 01/08 -01/09 Monitor CBC, CMP Please clarify if the sepsis is: [ ] Sepsis, etiology unknown, remains under treatment [ ] Sepsis due to Aspiration pneumonia confirmed, resolved [ ] Sepsis ruled out [ ] Other condition, please specify [ ] Unable to determine (Template Last Revised: December 2020) Possible sepsis with primary, undetermined This is a 67-year-old male who was recently admitted with possible sepsis Dictated By: Emma Bauer Signed By: <Electronically signed by Emma STEWART> 01/24/23 1844 <Electronically signed by Donato Santacruz MD> 01/25/23 1135 <Electronically signed by Donato Santacruz MD> DD/ 1711 TD/TT:01/21/23 0911 MILO
[2023-01-15 11:23] LABS: HCT 20.9 % (39.6-50.0); HGB 6.9 g/dL (13.0-17.0); Immature Platelet Fraction 1.9 % (1.1-6.1); MCH 30.5 pg (27.0-32.0); MCV 92.5 fL (80.0-97.0); NRBC Per 100 WBC 0 /100 WBCS (0.0-0.0); Platelet Count 33 X 10*3/uL (140-440); RBC 2.26 X 10*6/uL (4.40-5.60); RDW 18.2 % (11.5-14.5); WBC 2.17 X 10*3/uL (4.50-10.00)
[2023-01-15 11:52] LABS: INR 1.2 (<1.2); Prothrombin Time 12.1 sec (9.0-12.0)
--- NOTE | 2023-01-15 12:32 | P.PN ---
Subjective Progress Note Date: 01/15/23 The patient seen at bedside and the oncology would like to pursue with a lumbar puncture which I agree. They consulted interventional radiology team. Currently the patient is on Ahlquist is being held as a result. Objective - Vital Signs Vital signs: Vital Signs Temp 96.8 F L 01/15/23 07:04 Pulse 84 01/15/23 07:04 Resp 18 01/15/23 07:04 BP 157/74 01/15/23 07:04 Pulse Ox 97 01/15/23 08:40 FiO2 Intake & Output 01/14/23 01/15/23 01/15/23 18:59 06:59 18:59 Output Total 800 1430 Balance -800 -1430 Output: Urine 800 1430 Other: Voiding Method External Catheter External Catheter External Catheter # Bowel Movements 1 1 - Exam GENERAL: The patient is lying in bed and does not appear in acute distress. NEUROLOGICAL: Higher mental function: The patient is severely drowsy and minimally awakeable to voice. Not following commands or verbalizing. Cranial nerves: No facial weakenss. Motor: The strength is limited but spontaneously lifting uppers above gravity on own. Cerebellum: Unable to assess. Sensation: Unable to assess. Some of the workup during this hospital visit consisted of: On initial presentation the patient had a fever of 102.1 max currently it's the resolved Hemoglobin was as low as a 6.2 and currently 3.4 His creatinine is 4.07 currently is 2.7 glucose had episodes as low as 65 currently 71. Then yesterday was low as 51. Ionized calcium is 6.0 He could've the head ordered by the primary team is reported as age-related atrophy and chronic small vessel ischemic change without acute intracranial process seen at this time. I personally reviewed the CT and I agree there is no acute subacute ischemia, there is no bleed. MR the brain is reported as symmetrical abnormal increased signal in the occipital lobe and posterior parietal lobe and the rodriguez and white matter. This is predominantly white matter abnormality and could relate to microvascular ischemia. I do not suspect demyelinating disease. I personally reviewed the MRI and the patient has hyperintensity on the flare over the occipital parietal but must drastically improved compared to 12/30/2022 MRI - Labs CBC & Chem 7: 01/15/23 06:18 01/15/23 06:18 Labs: Abnormal Lab Results - Last 24 Hours (Table) 01/15/23 01/15/23 01/15/23 Range/Units 06:18 06:18 11:15 WBC 2.17 L (4.50-10.00) X 10*3/uL RBC 2.26 L (4.40-5.60) X 10*6/uL Hgb 6.9 L* (13.0-17.0) g/dL Hct 20.9 L (39.6-50.0) % RDW 18.2 H (11.5-14.5) % Plt Count 33 L (140-440) X 10*3/uL PT 12.1 H (9.0-12.0) sec INR 1.2 H (<1.2) Carbon Dioxide 14.5 L (20.0-27.5) mmol/L Anion Gap 20.60 H (10.00-18.00) mmol/L Creatinine 3.3 H (0.6-1.5) mg/dL Est GFR (CKD-EPI)AfAm 20.9 L (60.0-200.0) Est GFR (CKD-EPI)NonAf 18.1 L (60.0-200.0) BUN/Creatinine Ratio 4.34 L (12.00-20.00) Ratio AST 74 H (14-35) U/L Total Protein 10.0 H (6.2-8.2) g/dL Albumin 2.0 L (3.8-4.9) g/dL Globulin 8.0 H (1.6-3.3) g/dL Albumin/Globulin Ratio 0.25 L (1.60-3.17) g/dL Microbiology - Last 24 Hours (Table) 01/08/23 19:15 Blood Culture - Final Blood No Growth after 144 hours 01/08/23 19:15 Blood Culture - Final Blood No Growth after 144 hours Assessment and Plan Assessment: Also mental status seems due to metabolic encephalopathy. Has hypogylecmia (as low as 50's), elevated ionized calcium and patient has a fever of unknown origin History of seizures according to the he has subtle jerking of upper extremities (in past had left facial twitching and myoclonic jerks) History of Posterior reversible encephalopathy syndrome on MRI of the brain of 12/29/2022 admission and improving on this current MRI. Acute on chronic kidney insufficiency History of multiple myeloma and had chemotherapy Pancytopenia History of pulmonary embolism on Eliquis History of a T12 fracture with multiple vertebral fracture due to multiple myeloma History of coronary artery disease Dyslipidemia Plan: He is on Keppra 750mg every 12 hours and cannot go any higher because of his kidney insufficiency so therefore lowered Keppra to 500mg bid and added Vimpat 50 mg one tablet twice a day (started on 01/12/23) especially since according to the he has subtle jerks of the upper extremity. Routine EEG: Is abnormal. The background slowing suggestive of moderate to severe encephalopathy. Otherwise there is no focal slowing, epileptiform discharges or seizure on the EEG. ID team is on board for the fever. Agree with pursuing lumbar puncture to rule out any underlying encephalitis or meningitis. Is on Acylovir started by primary team and is on Zosyn by I.D. His avoid any hypoglycemia events and we'll defer the elevated calcium management to the primary team We'll defer the rest of the medical measure the primary team The plan is discussed with patient's who is at bedside and Primary team's N.P. Time with Patient: Less than 30
--- NOTE | 2023-01-15 12:32 | P.PN ---
Subjective Patient is seen for follow-up for acute kidney injury and top of chronic kidney disease. Currently maintained on IV fluids. Renal function has improved with creatinine down to 3.3 from 4.0 . Patient was lethargic yesterday and significantly acidotic. He was started on sodium bicarb drip. CO2 is improved with improvement in creatinine as well. This morning patient did respond to his name and opened his eyes but was not following commands. Objective - Vital Signs Vital signs: Vital Signs Temp 96.8 F L 01/15/23 07:04 Pulse 84 01/15/23 07:04 Resp 18 01/15/23 07:04 BP 157/74 01/15/23 07:04 Pulse Ox 97 01/15/23 08:40 FiO2 Intake & Output 01/14/23 01/15/23 01/15/23 18:59 06:59 18:59 Output Total 800 1430 Balance -800 -1430 Output: Urine 800 1430 Other: Voiding Method External Catheter External Catheter External Catheter # Bowel Movements 1 1 - Exam Patient is sleeping but arousable. Does not follow commands today He is comfortable. O2 sats 95% on room air Examination of the heart S1 and S2 Examination of the lungs bilateral breath sounds are heard Abdomen is soft nontender Examination of lower extremity shows no significant edema - Labs CBC & Chem 7: 01/15/23 06:18 01/15/23 06:18 Labs: Abnormal Lab Results - Last 24 Hours (Table) 01/15/23 01/15/23 01/15/23 Range/Units 06:18 06:18 11:15 WBC 2.17 L (4.50-10.00) X 10*3/uL RBC 2.26 L (4.40-5.60) X 10*6/uL Hgb 6.9 L* (13.0-17.0) g/dL Hct 20.9 L (39.6-50.0) % RDW 18.2 H (11.5-14.5) % Plt Count 33 L (140-440) X 10*3/uL PT 12.1 H (9.0-12.0) sec INR 1.2 H (<1.2) Carbon Dioxide 14.5 L (20.0-27.5) mmol/L Anion Gap 20.60 H (10.00-18.00) mmol/L Creatinine 3.3 H (0.6-1.5) mg/dL Est GFR (CKD-EPI)AfAm 20.9 L (60.0-200.0) Est GFR (CKD-EPI)NonAf 18.1 L (60.0-200.0) BUN/Creatinine Ratio 4.34 L (12.00-20.00) Ratio AST 74 H (14-35) U/L Total Protein 10.0 H (6.2-8.2) g/dL Albumin 2.0 L (3.8-4.9) g/dL Globulin 8.0 H (1.6-3.3) g/dL Albumin/Globulin Ratio 0.25 L (1.60-3.17) g/dL Microbiology - Last 24 Hours (Table) 01/08/23 19:15 Blood Culture - Final Blood No Growth after 144 hours 01/08/23 19:15 Blood Culture - Final Blood No Growth after 144 hours Assessment and Plan Assessment: 1. Acute kidney injury, prerenal. Improved with IV hydration. Serum creatinine staying at about 3.6 with grams per deciliter 2. Recent episode of acute kidney injury with serum creatinine was as high as 6.7 but improved to 3.1 with hydration, serum creatinine 3.1 on 01/01/2023. 3. CK D stage IV IIIB to 4 with serum creatinine at 2.3-2.4 mg/dL as of November 2022. Etiology is multiple myeloma. New baseline appears to be around 3.5 mg/dL now 4. Progressive multiple myeloma with bony metastasis. History of stem cell transplant and immunotherapy. 5. Anemia, multifactorial 6. Fever with possible aspiration pneumonia maintained on antibiotics. ID has been consulted 7. Anion gap metabolic acidosis associated with acute kidney injury however worsened in the last 24 hours. No diarrhea reported. No significant abdominal pain. Maintained on sodium bicarb drip Plan: Continue IV sodium bicarb Repeat labs in a.m. Overall prognosis is guarded
[2023-01-15] MEDS: DEXTROSE 5% IN WATER 1,000 ML with SODIUM BICARB (1 MEQ/ML) 150 ML IV SCH (13:20)
--- NOTE | 2023-01-15 14:22 | P.PN ---
Subjective Progress Note Date: 01/15/23 Principal diagnosis: fever At today's visit patient has increased confusion and is obtunded. Pt would open eyes and moan to sternal rub but was not answering questions. reports last night he was able to answer some questions for her. Objective - Vital Signs Vital signs: Vital Signs Temp 96.8 F L 01/15/23 07:04 Pulse 84 01/15/23 07:04 Resp 18 01/15/23 07:04 BP 157/74 01/15/23 07:04 Pulse Ox 97 01/15/23 08:40 FiO2 Intake & Output 01/14/23 01/15/23 01/15/23 18:59 06:59 18:59 Intake Total 10 Output Total 800 1430 500 Balance -800 -1430 -490 Weight 88.451 kg Intake: IV 10 Invasive Line 4 10 Output: Urine 800 1430 500 Other: Voiding Method External Catheter External Catheter External Catheter # Bowel Movements 1 1 - Constitutional General appearance: Present: average body habitus, no acute distress - EENT Eyes: Present: anicteric sclerae - Respiratory Respiratory: bilateral: CTA - Cardiovascular Rhythm: regular Heart sounds: normal: S1, S2 Abnormal Heart Sounds: Absent: systolic murmur, diastolic murmur, rub, S3 Gallop, S4 Gallop, click, other - Integumentary Integumentary: Present: pale - Neurologic Neurologic Comment(s): A&Ox 0. Obtunded, arouses to tactile stimuli, but is not answering questions - Musculoskeletal Musculoskeletal: Present: generalized weakness - Labs CBC & Chem 7: 01/15/23 06:18 01/15/23 06:18 Labs: Abnormal Lab Results - Last 24 Hours (Table) 01/15/23 01/15/23 01/15/23 Range/Units 06:18 06:18 11:15 WBC 2.17 L (4.50-10.00) X 10*3/uL RBC 2.26 L (4.40-5.60) X 10*6/uL Hgb 6.9 L* (13.0-17.0) g/dL Hct 20.9 L (39.6-50.0) % RDW 18.2 H (11.5-14.5) % Plt Count 33 L (140-440) X 10*3/uL PT 12.1 H (9.0-12.0) sec INR 1.2 H (<1.2) Carbon Dioxide 14.5 L (20.0-27.5) mmol/L Anion Gap 20.60 H (10.00-18.00) mmol/L Creatinine 3.3 H (0.6-1.5) mg/dL Est GFR (CKD-EPI)AfAm 20.9 L (60.0-200.0) Est GFR (CKD-EPI)NonAf 18.1 L (60.0-200.0) BUN/Creatinine Ratio 4.34 L (12.00-20.00) Ratio AST 74 H (14-35) U/L Total Protein 10.0 H (6.2-8.2) g/dL Albumin 2.0 L (3.8-4.9) g/dL Globulin 8.0 H (1.6-3.3) g/dL Albumin/Globulin Ratio 0.25 L (1.60-3.17) g/dL Crossmatch 01/15/23 Range/Units 11:52 WBC (4.50-10.00) X 10*3/uL RBC (4.40-5.60) X 10*6/uL Hgb (13.0-17.0) g/dL Hct (39.6-50.0) % RDW (11.5-14.5) % Plt Count (140-440) X 10*3/uL PT (9.0-12.0) sec INR (<1.2) Carbon Dioxide (20.0-27.5) mmol/L Anion Gap (10.00-18.00) mmol/L Creatinine (0.6-1.5) mg/dL Est GFR (CKD-EPI)AfAm (60.0-200.0) Est GFR (CKD-EPI)NonAf (60.0-200.0) BUN/Creatinine Ratio (12.00-20.00) Ratio AST (14-35) U/L Total Protein (6.2-8.2) g/dL Albumin (3.8-4.9) g/dL Globulin (1.6-3.3) g/dL Albumin/Globulin Ratio (1.60-3.17) g/dL Crossmatch See Detail Microbiology - Last 24 Hours (Table) 01/08/23 19:15 Blood Culture - Final Blood No Growth after 144 hours 01/08/23 19:15 Blood Culture - Final Blood No Growth after 144 hours Assessment and Plan (1) Pancytopenia Current Visit: Yes Status: Acute Code(s): D61.818 - OTHER PANCYTOPENIA SNOMED Code(s): 887535253 (2) Altered mental status Current Visit: Yes Status: Acute Code(s): R41.82 - ALTERED MENTAL STATUS, UNSPECIFIED SNOMED Code(s): 436338602 (3) Fever of unknown origin Current Visit: Yes Status: Acute Priority: High Code(s): R50.9 - FEVER, UNSPECIFIED SNOMED Code(s): 7136504 (4) Multiple myeloma Current Visit: Yes Status: Chronic Priority: High Code(s): C90.00 - MULTIPLE MYELOMA NOT HAVING ACHIEVED REMISSION SNOMED Code(s): 447834716 Plan: Fever of unknown origin -Afebrile since initial presentation on 01/08/2023 -Blood cultures from admission on 01/08/2023 are revealing no growth to date -Chest x-ray and CT abdomen/pelvis revealing no acute infectious process or diverticulitis -Continues on empiric Zosyn -If he develops additional fevers inpatient, noncontrast CT of the chest can be considered for additional work-up Refractory multiple myeloma -Has noted disease progression on Kyprolis/Pomalyst/dexamethasone -Has been seen by Dr. Gambino of [facility] in [place] to review CAR-T treatment on 01/07/2023 -Plan is to undergo salvage treatment for additional disease control prior to undergoing CAR-T. Once patient recovers from acute illness, will plan to begin CyBorD treatment or pulse dose dexamethasone inpatient depending on patient's progression. -Will consider discharge home with home care and home PT if pt is strong enough, so we are able to continue with treatment and not further delay his chemotherapy. However, at this point pt will likely need rehab upon discharge Chemotherapy-induced pancytopenia -Secondary to treatment from multiple myeloma -Hemoglobin 6.9 today, platelets 33,000. 1 unit PRBCs ordered -1 unit platelets will be transfused tomorrow during scheduled lumbar puncture. Order placed -Transfuse for hemoglobin less than 7 -Transfuse for platelets less than or equal to 10,000 or if bleeding Aletered mental status -CT head negative for acute intracranial processes. Of note pt was admitted 2 weeks ago for acute encephalopathy -MRI brain revealed symmetric abnormal increased signal in the occipital lobes and posterior parietal lobes in the rodriguez and white matter. This is predominantly white matter abnormality and could related to microvascular ischemia. I do not suspect demyelinating disease. -Neurology consulted. EEG revealed moderate to severe encephalopathy, no seizure activitiy noted. Patient is continued on Keppra and Vimpat was added per neurology team. -Confusion has worsened today. Corrected calcium 11.4 and ionized calcium 6.0 yesterday. 1 dose of pamidronate given. Corrected calcium today 10.9. -Consult placed to IR for lumbar puncture. Labs and cytology ordered on CSF fluid. Ordered 1 unit of platelets to be transfused during procedure, and eliquis has been held. -Defer to neurology for management
[2023-01-15] MEDS: ACYCLOVIR SODIUM 900 MG in SODIUM CHLORIDE 0.9% 250 ML IVPB SCH (17:40)
--- NOTE | 2023-01-15 18:38 | P.PN ---
Subjective Progress Note Date: 01/15/23 Principal diagnosis: Fever Patient is a 67-year-old male with a past medical history significant for multiple myeloma on chemotherapy patient also history of hyperlipidemia coronary disease PE and half-way resident patient was brought into the ER for evaluation of fever , Patient also have an episode of vomiting and persistent in the left lower quadrant. On today's evaluation that is 01/15/2023, the patient continues to be afebrile , the patient is sleepy and lethargic today and did not answer any question, patient remains to be on room air, no coughing vomiting or diarrhea has been reported by the at the bedside Objective - Vital Signs Vital signs: Vital Signs Temp 96.8 F L 01/15/23 07:04 Pulse 84 01/15/23 07:04 Resp 18 01/15/23 07:04 BP 157/74 01/15/23 07:04 Pulse Ox 97 01/15/23 08:40 FiO2 Intake & Output 01/14/23 01/15/23 01/15/23 18:59 06:59 18:59 Output Total 800 1430 Balance -800 -1430 Output: Urine 800 1430 Other: Voiding Method External Catheter External Catheter External Catheter # Bowel Movements 1 1 - Exam GENERAL DESCRIPTION: Elderly male lying in bed in no distress RESPIRATORY SYSTEM: Unlabored breathing , decreased breath sounds at bases HEART: S1 S2 regular rate and rhythm ,no loud murmurs ABDOMEN: Soft , no tenderness EXTREMITIES: No edema feet - Labs CBC & Chem 7: 01/15/23 06:18 01/15/23 06:18 Labs: Abnormal Lab Results - Last 24 Hours (Table) 01/15/23 01/15/23 01/15/23 Range/Units 06:18 06:18 11:15 WBC 2.17 L (4.50-10.00) X 10*3/uL RBC 2.26 L (4.40-5.60) X 10*6/uL Hgb 6.9 L* (13.0-17.0) g/dL Hct 20.9 L (39.6-50.0) % RDW 18.2 H (11.5-14.5) % Plt Count 33 L (140-440) X 10*3/uL PT 12.1 H (9.0-12.0) sec INR 1.2 H (<1.2) Carbon Dioxide 14.5 L (20.0-27.5) mmol/L Anion Gap 20.60 H (10.00-18.00) mmol/L Creatinine 3.3 H (0.6-1.5) mg/dL Est GFR (CKD-EPI)AfAm 20.9 L (60.0-200.0) Est GFR (CKD-EPI)NonAf 18.1 L (60.0-200.0) BUN/Creatinine Ratio 4.34 L (12.00-20.00) Ratio AST 74 H (14-35) U/L Total Protein 10.0 H (6.2-8.2) g/dL Albumin 2.0 L (3.8-4.9) g/dL Globulin 8.0 H (1.6-3.3) g/dL Albumin/Globulin Ratio 0.25 L (1.60-3.17) g/dL Microbiology - Last 24 Hours (Table) 01/08/23 19:15 Blood Culture - Final Blood No Growth after 144 hours 01/08/23 19:15 Blood Culture - Final Blood No Growth after 144 hours Assessment and Plan (1) Fever Current Visit: Yes Status: Acute Priority: High Code(s): R50.9 - FEVER, UNSPECIFIED SNOMED Code(s): 230886968 Plan: 1patient was in the hospital with a fever and did have an episode of vomiting patient was noted to be slightly tender in the left lower quadrant area concerning for possible intra-abdominal source possible diverticulitis as currently not behaving as pneumonia chest x-ray was negative urine is negative influenza RSV and COVID testing was negative 2-patient with elevated creatinine high risk of nephrotoxicity 3- CT of abdominal pelvis with oral contrast , did not show any acute process but rectal feceloma , pt did have multiple BM since CT 4-the patient fever has resolved and culture have been negative, patient did have significant mental status changes currently waiting for LP acyclovir has been added and will monitor his clinical course closely at the bedside questions were answered, we will check HSV serology Time with Patient: Less than 30
[2023-01-15] MEDS: CALCIUM CARBONATE 500 MG CHEWABLE PO SCH (22:11)
[2023-01-15] MEDS: GABAPENTIN 300 MG CAP PO SCH (22:12)
[2023-01-16] MEDS: levETIRAcetam IV 500 MG in SODIUM CHLORIDE 0.9% 100 ML IVPB SCH ×3 (00:15→21:02)
[2023-01-16] MEDS: LACOSAMIDE IV 50 MG in SODIUM CHLORIDE 0.9% 50 ML IVPB SCH ×3 (00:15→21:02)
[2023-01-16] MEDS: PIPERACILLIN-TAZOBACTAM 3.375 GM in SODIUM CHLORIDE 0.9% 100 ML IVPB SCH ×4 (00:15→23:56)
[2023-01-16] MEDS: DEXTROSE 5% IN WATER 1,000 ML with SODIUM BICARB (1 MEQ/ML) 150 ML IV SCH ×2 (01:10→22:24)
[2023-01-16] MEDS: ACYCLOVIR SODIUM 900 MG in SODIUM CHLORIDE 0.9% 250 ML IVPB SCH ×2 (04:55→17:06)
[2023-01-16] MEDS: SODIUM BICARBONATE TAB 650 MG TAB PO SCH ×3 (08:16→23:57)
[2023-01-16] MEDS: CHOLECALCIFEROL 25 MCG (1000 IU) TABLET PO SCH (08:16)
--- NOTE | 2023-01-16 11:02 | P.PN ---
Subjective Progress Note Date: 01/16/23 Principal diagnosis: Fever Patient is a 67-year-old male with a past medical history significant for multiple myeloma on chemotherapy patient also history of hyperlipidemia coronary disease PE and [facility] patient was brought into the ER for evaluation of fever , Patient also have an episode of vomiting and persistent in the left lower quadrant. On today's evaluation that is 01/16/2023, the patient remains to be afebrile , the patient is sleepy and lethargic and unable to provide any history, per the patient patient is scheduled for LP this morning no vomiting or diarrhea has been reported Objective - Vital Signs Vital signs: Vital Signs Temp 97.0 F L 01/16/23 08:50 Pulse 97 01/16/23 08:50 Resp 17 01/16/23 08:50 BP 142/73 01/16/23 08:50 Pulse Ox 95 01/16/23 08:50 FiO2 Intake & Output 01/15/23 01/16/23 01/16/23 18:59 06:59 18:59 Intake Total 10 310 Output Total 1000 500 Balance -990 -190 Weight 88.451 kg Intake: IV 10 Invasive Line 4 10 Blood Product 310 Rc As-1 Unit 310 [id number] Output: Urine 1000 500 Other: Voiding Method External Catheter External Catheter # Bowel Movements 1 - Exam GENERAL DESCRIPTION: Elderly male lying in bed in no distress RESPIRATORY SYSTEM: Unlabored breathing , decreased breath sounds at bases HEART: S1 S2 regular rate and rhythm ,no loud murmurs ABDOMEN: Soft , no tenderness EXTREMITIES: No edema feet - Labs CBC & Chem 7: 01/15/23 06:18 01/15/23 06:18 Labs: Abnormal Lab Results - Last 24 Hours (Table) 01/15/23 01/15/23 01/15/23 Range/Units 06:18 06:18 11:15 WBC 2.17 L (4.50-10.00) X 10*3/uL RBC 2.26 L (4.40-5.60) X 10*6/uL Hgb 6.9 L* (13.0-17.0) g/dL Hct 20.9 L (39.6-50.0) % RDW 18.2 H (11.5-14.5) % Plt Count 33 L (140-440) X 10*3/uL PT 12.1 H (9.0-12.0) sec INR 1.2 H (<1.2) Carbon Dioxide 14.5 L (20.0-27.5) mmol/L Anion Gap 20.60 H (10.00-18.00) mmol/L Creatinine 3.3 H (0.6-1.5) mg/dL Est GFR (CKD-EPI)AfAm 20.9 L (60.0-200.0) Est GFR (CKD-EPI)NonAf 18.1 L (60.0-200.0) BUN/Creatinine Ratio 4.34 L (12.00-20.00) Ratio AST 74 H (14-35) U/L Total Protein 10.0 H (6.2-8.2) g/dL Albumin 2.0 L (3.8-4.9) g/dL Globulin 8.0 H (1.6-3.3) g/dL Albumin/Globulin Ratio 0.25 L (1.60-3.17) g/dL Crossmatch 01/15/23 Range/Units 11:52 WBC (4.50-10.00) X 10*3/uL RBC (4.40-5.60) X 10*6/uL Hgb (13.0-17.0) g/dL Hct (39.6-50.0) % RDW (11.5-14.5) % Plt Count (140-440) X 10*3/uL PT (9.0-12.0) sec INR (<1.2) Carbon Dioxide (20.0-27.5) mmol/L Anion Gap (10.00-18.00) mmol/L Creatinine (0.6-1.5) mg/dL Est GFR (CKD-EPI)AfAm (60.0-200.0) Est GFR (CKD-EPI)NonAf (60.0-200.0) BUN/Creatinine Ratio (12.00-20.00) Ratio AST (14-35) U/L Total Protein (6.2-8.2) g/dL Albumin (3.8-4.9) g/dL Globulin (1.6-3.3) g/dL Albumin/Globulin Ratio (1.60-3.17) g/dL Crossmatch See Detail Assessment and Plan (1) Fever Current Visit: Yes Status: Acute Priority: High Code(s): R50.9 - FEVER, UNSPECIFIED SNOMED Code(s): 438050247 Plan: 1patient was in the hospital with a fever and did have an episode of vomiting patient was noted to be slightly tender in the left lower quadrant area concerning for possible intra-abdominal source possible diverticulitis as currently not behaving as pneumonia chest x-ray was negative urine is negative influenza RSV and COVID testing was negative 2-patient with elevated creatinine high risk of nephrotoxicity 3- CT of abdominal pelvis with oral contrast , did not show any acute process but rectal feceloma , pt did have multiple BM since CT 4-the patient fever has resolved and culture have been negative, patient did have significant mental status changes currently waiting for LP acyclovir has been added , HSV serology was requested and is currently pending at the bedside questions concerned were answered Time with Patient: Less than 30
[2023-01-16 11:31] LABS: HCT 23.7 % (39.6-50.0); HGB 7.9 g/dL (13.0-17.0); MCH 29.9 pg (27.0-32.0); MCHC 33.3 g/dL (32.0-37.0); MCV 89.8 fL (80.0-97.0); Mean Platelet Volume 8.7 fL (9.5-12.2); NRBC Per 100 WBC 0 /100 WBCS (0.0-0.0); Platelet Count 27 X 10*3/uL (140-440); RBC 2.64 X 10*6/uL (4.40-5.60); RDW 17.7 % (11.5-14.5); WBC 2.14 X 10*3/uL (4.50-10.00)
[2023-01-16 11:36] LABS: C Reactive Protein 7.7 mg/dL (0.00-0.80)
[2023-01-16 11:40] LABS: African American GFR (CKD) 24.4 (60.0-200.0); Albumin 1.7 g/dL (3.8-4.9); Albumin/Globulin Ratio 0.22 (1.60-3.17); Anion Gap 14.6 mmol/L (10.00-18.00); BUN/Creat Ratio 3.41 Ratio (12.00-20.00); Calcium 8.4 mg/dL (8.7-10.3); Carbon Dioxide 23.9 mmol/L (20.0-27.5); Globulin 7.6 g/dL (1.6-3.3); Non-African American GFR(CKD) 21.1 (60.0-200.0); Total Bilirubin 0.8 mg/dL (0.30-1.20); Total Protein 9.3 g/dL (6.2-8.2)
--- NOTE | 2023-01-16 12:21 | P.PN ---
Subjective Progress Note Date: 01/16/23 The patient is seen at bedside and is accompanied by his and he feels he is about the same. She feels his jerking has improved. He is still pending to have Lumbar Puncture. Objective - Vital Signs Vital signs: Vital Signs Temp 97.0 F L 01/16/23 08:50 Pulse 97 01/16/23 08:50 Resp 17 01/16/23 08:50 BP 142/73 01/16/23 08:50 Pulse Ox 95 01/16/23 08:50 FiO2 Intake & Output 01/15/23 01/16/23 01/16/23 18:59 06:59 18:59 Intake Total 10 310 0 Output Total 1000 500 Balance -990 -190 0 Weight 88.451 kg Intake: IV 10 Invasive Line 4 10 Blood Product 310 0 Platelet Pheresis Pas 0 Psoralen Unit [id number] Rc As-1 Unit 310 [id number] Output: Urine 1000 500 Other: Voiding Method External Catheter External Catheter # Bowel Movements 1 1 - Exam GENERAL: The patient is lying in bed and does not appear in acute distress. NEUROLOGICAL: Higher mental function: The patient is severely drowsy. Not following commands or verbalizing. Cranial nerves: No facial weakenss. Motor: The strength is limited but spontaneously lifting uppers above gravity on own. Cerebellum: Unable to assess. Sensation: Unable to assess. Some of the workup during this hospital visit consisted of: On initial presentation the patient had a fever of 102.1 max currently it's the resolved Hemoglobin was as low as a 6.2 and currently 3.4 His creatinine is 4.07 currently is 2.7 glucose had episodes as low as 65 currently 71. Then yesterday was low as 51. Ionized calcium is 6.0 He could've the head ordered by the primary team is reported as age-related atrophy and chronic small vessel ischemic change without acute intracranial process seen at this time. I personally reviewed the CT and I agree there is no acute subacute ischemia, there is no bleed. MR the brain is reported as symmetrical abnormal increased signal in the occipital lobe and posterior parietal lobe and the rodriguez and white matter. This is predominantly white matter abnormality and could relate to microvascular ischemia. I do not suspect demyelinating disease. I personally reviewed the MRI and the patient has hyperintensity on the flare over the occipital parietal but must drastically improved compared to 12/30/2022 MRI - Labs CBC & Chem 7: 01/16/23 05:56 01/16/23 05:56 Labs: Abnormal Lab Results - Last 24 Hours (Table) 01/15/23 01/16/23 01/16/23 Range/Units 11:52 05:56 05:56 WBC 2.14 L (4.50-10.00) X 10*3/uL RBC 2.64 L (4.40-5.60) X 10*6/uL Hgb 7.9 L (13.0-17.0) g/dL Hct 23.7 L (39.6-50.0) % RDW 17.7 H (11.5-14.5) % Plt Count 27 L (140-440) X 10*3/uL MPV 8.7 L (9.5-12.2) fL Potassium 3.0 L (3.5-5.5) mmol/L Creatinine 2.9 H (0.6-1.5) mg/dL Est GFR (CKD-EPI)AfAm 24.4 L (60.0-200.0) Est GFR (CKD-EPI)NonAf 21.1 L (60.0-200.0) BUN/Creatinine Ratio 3.41 L (12.00-20.00) Ratio Calcium 8.4 L (8.7-10.3) mg/dL AST 76 H (14-35) U/L C-Reactive Protein 7.70 H (0.00-0.80) mg/dL Total Protein 9.3 H (6.2-8.2) g/dL Albumin 1.7 L (3.8-4.9) g/dL Globulin 7.6 H (1.6-3.3) g/dL Albumin/Globulin Ratio 0.22 L (1.60-3.17) g/dL Crossmatch See Detail Assessment and Plan Assessment: Also mental status seems due to metabolic encephalopathy. Has hypogylecmia (as low as 50's), elevated ionized calcium and patient has a fever of unknown origin. Rule out encephalitis History of seizures according to the he has subtle jerking of upper extremities (in past had left facial twitching and myoclonic jerks) History of Posterior reversible encephalopathy syndrome on MRI of the brain of 12/29/2022 admission and improving on this current MRI. Acute on chronic kidney insufficiency History of multiple myeloma and had chemotherapy Pancytopenia History of pulmonary embolism on Eliquis History of a T12 fracture with multiple vertebral fracture due to multiple myeloma History of coronary artery disease Dyslipidemia Plan: He is on Keppra 750mg every 12 hours and cannot go any higher because of his kidney insufficiency so therefore lowered Keppra to 500mg bid and added Vimpat 50 mg one tablet twice a day (started on 01/12/23) especially since according to the he has subtle jerks of the upper extremity. Routine EEG: Is abnormal. The background slowing suggestive of moderate to severe encephalopathy. Otherwise there is no focal slowing, epileptiform discharges or seizure on the EEG. ID team is on board for the fever. Agree with pursuing lumbar puncture to rule out any underlying encephalitis or meningitis. Is on Acylovir started by primary team and is on Zosyn by I.D. Beside basic CSF studies, I ordered CSF cytology in addition. Please avoid any hypoglycemia events and we'll defer the elevated calcium management to the primary team We'll defer the rest of the medical measure the primary team The plan is discussed with patient's who is at bedside and Primary team's N.P. Time with Patient: Less than 30
--- NOTE | 2023-01-16 13:25 | P.PN ---
Subjective Progress Note Date: 01/16/23 Principal diagnosis: fever At today's visit, patient remains confused and obtunded. Pt would moan upon sternal rub but was not answering questions. reports no acute changes o vernight. No episodes of bleeding. Lumbar puncture scheduled for today. Objective - Vital Signs Vital signs: Vital Signs Temp 98.4 F 01/16/23 12:25 Pulse 107 H 01/16/23 12:25 Resp 17 01/16/23 12:25 BP 103/69 01/16/23 12:25 Pulse Ox 96 01/16/23 12:25 FiO2 Intake & Output 01/15/23 01/16/23 01/16/23 18:59 06:59 18:59 Intake Total 10 310 0 Output Total 1000 500 Balance -990 -190 0 Weight 88.451 kg Intake: IV 10 Invasive Line 4 10 Blood Product 310 0 Platelet Pheresis Pas 0 Psoralen Unit [id number] Rc As-1 Unit 310 [id number] Output: Urine 1000 500 Other: Voiding Method External Catheter External Catheter # Bowel Movements 1 1 - Constitutional General appearance: Present: average body habitus, no acute distress - EENT EENT Comment(s): dried blood on distal tongue. Appears pt bit tongue. No active bleeding Eyes: Present: anicteric sclerae - Respiratory Details: breathing is even and unlabored - Cardiovascular Details: skin warm and dry - Integumentary Integumentary: Present: pale - Neurologic Neurologic Comment(s): confused and obtunded, not answering questions, will moan upon sternal rub - Musculoskeletal Musculoskeletal: Present: generalized weakness - Labs CBC & Chem 7: 01/16/23 05:56 01/16/23 05:56 Labs: Abnormal Lab Results - Last 24 Hours (Table) 01/15/23 01/16/23 01/16/23 Range/Units 11:52 05:56 05:56 WBC 2.14 L (4.50-10.00) X 10*3/uL RBC 2.64 L (4.40-5.60) X 10*6/uL Hgb 7.9 L (13.0-17.0) g/dL Hct 23.7 L (39.6-50.0) % RDW 17.7 H (11.5-14.5) % Plt Count 27 L (140-440) X 10*3/uL MPV 8.7 L (9.5-12.2) fL Potassium 3.0 L (3.5-5.5) mmol/L Creatinine 2.9 H (0.6-1.5) mg/dL Est GFR (CKD-EPI)AfAm 24.4 L (60.0-200.0) Est GFR (CKD-EPI)NonAf 21.1 L (60.0-200.0) BUN/Creatinine Ratio 3.41 L (12.00-20.00) Ratio Calcium 8.4 L (8.7-10.3) mg/dL AST 76 H (14-35) U/L C-Reactive Protein 7.70 H (0.00-0.80) mg/dL Total Protein 9.3 H (6.2-8.2) g/dL Albumin 1.7 L (3.8-4.9) g/dL Globulin 7.6 H (1.6-3.3) g/dL Albumin/Globulin Ratio 0.22 L (1.60-3.17) g/dL Crossmatch See Detail Assessment and Plan (1) Pancytopenia Current Visit: Yes Status: Acute Code(s): D61.818 - OTHER PANCYTOPENIA SNOMED Code(s): 650240370 (2) Altered mental status Current Visit: Yes Status: Acute Code(s): R41.82 - ALTERED MENTAL STATUS, UNSPECIFIED SNOMED Code(s): 420040455 (3) Fever of unknown origin Current Visit: Yes Status: Acute Priority: High Code(s): R50.9 - FEVER, UNSPECIFIED SNOMED Code(s): 5722609 (4) Multiple myeloma Current Visit: Yes Status: Chronic Priority: High Code(s): C90.00 - MULTIPLE MYELOMA NOT HAVING ACHIEVED REMISSION SNOMED Code(s): 660598851 Plan: Fever of unknown origin -Afebrile since initial presentation on 01/08/2023 -Blood cultures from admission on 01/08/2023 are revealing no growth to date -Chest x-ray and CT abdomen/pelvis revealing no acute infectious process or diverticulitis -Continues on empiric Zosyn and acyclovir -If he develops additional fevers inpatient, noncontrast CT of the chest can be considered for additional work-up Refractory multiple myeloma -Has noted disease progression on Kyprolis/Pomalyst/dexamethasone -Has been seen by Dr. Gambino of [facility] in [place] to review CAR-T treatment on 01/07/2023 -Plan is to undergo salvage treatment for additional disease control prior to undergoing CAR-T. Once patient recovers from acute illness, will plan to begin CyBorD treatment or pulse dose dexamethasone inpatient depending on patient's progression. -Will consider discharge home with home care and home PT if pt is strong enough, so we are able to continue with treatment and not further delay his chemotherapy. However, at this point pt will likely need rehab upon discharge Chemotherapy-induced pancytopenia -Secondary to treatment from multiple myeloma -Hemoglobin 7.9 today, after 1 unit PRBC yesterday. Platelets 27,000. -1 unit platelets will be transfused today during scheduled lumbar puncture. Eliquis held -Transfuse for hemoglobin less than 7 -Transfuse for platelets less than or equal to 10,000 or if bleeding Aletered mental status -CT head negative for acute intracranial processes. Of note pt was admitted 2 weeks ago for acute encephalopathy -MRI brain revealed symmetric abnormal increased signal in the occipital lobes and posterior parietal lobes in the rodriguez and white matter. This is p redominantly white matter abnormality and could related to microvascular ischemia. I do not suspect demyelinating disease. -Neurology consulted. EEG revealed moderate to severe encephalopathy, no seizure activitiy noted. Patient is continued on Keppra and Vimpat was added per neurology team. -Confusion has worsened today. Corrected calcium 11.4 and ionized calcium 6.0. 1 dose of pamidronate given. Calcium 8.4 today, with no improvement in mental status -Consult placed to IR for lumbar puncture. Labs and cytology ordered on CSF fluid. Ordered 1 unit of platelets to be transfused during procedure, and eliquis has been held. -Defer to neurology for management
[2023-01-16 13:34] LABS: Basophils # (M) 0.02 X 10*3/uL (0.00-0.10); Eosinophils # (M) 0.09 X 10*3/uL (0.04-0.35); Immature Platelet Fraction 1.8 % (1.1-6.1); Lymphocytes # (M) 0.34 X 10*3/uL (0.90-5.00); Metamyelocytes % 4 % (0-0); Monocytes # (M) 0.13 X 10*3/uL (0.20-1.00); Neutrophils # (M) 1.48 X 10*3/uL (2.00-8.90); Neutrophils % (M) 69 %; RBC Morphology NORMAL
[2023-01-16] MEDS ORDERED: Potassium Replacement Protocol 1 EACH MISC MISCELLANE PRN (13:38)
[2023-01-16] MEDS ORDERED: POTASSIUM CHLORIDE 20 MEQ in WATER FOR INJECTION 1 100ML.BAG IVPB STA (13:38)
[2023-01-16] MEDS ORDERED: MAGNESIUM SULFATE-D5W PMX 1 GM in DEXTROSE/WATER 1 100ML.BAG IVPB ONE (13:39)
[2023-01-16 14:09] LABS: HSV I IgG Interp NEGATIVE (NEGATIVE); HSV II IgG Interp NEGATIVE (NEGATIVE)
--- NOTE | 2023-01-16 14:13 | FL ---
EXAMINATION TYPE: FL guided lumbar puncture LP DATE OF EXAM: 01/16/2023 COMPARISON: CT abdomen pelvis January 09, 2023. HISTORY: History of multiple myeloma with lethargy and confusion. Patient is unresponsive with limite d motion. TECHNIQUE: Fluoroscopy assisted attempted lumbar puncture. FINDINGS: Fluoroscopic guidance was provided during attempted lumbar puncture procedure performed by myself. A total of 2 minutes 1 seconds of fluoroscopic time was utilized during the procedure and 1 spot images was acquired. Review of patient's most recent CT prior to this procedure shows multiple compression type fracture d eformities along with large body habitus and multilevel facet arthropathy and spinous process hypertr ophy, this along with patient's limited mobility will make the procedure extremely difficult. Procedure explained to patient's . She signed consent. The patient was placed in and prone positi on and oblique position on the fluoroscopic table. Overlying skin was cleansed with Betadine. Lidocai ne is used as anesthetic into the skin and deeper tissue. Several attempts were made but were unsucce ssful in accessing the spinal canal because patient could not voluntarily move and because of size is difficult to accurately remove. All attempts kept getting bone despite readjustment. Further attempt s were made to adjust patient for better visualization of a targeted area but were unsuccessful. Afte r approximately 20 minutes of attempts, the attempted procedure was abandoned. Vital signs were monitored before during and after the procedure. Patient was given IV platelets duri ng attempted procedure. Mild bruising at attempted injection sites. No significant bleed during proce dure attempt. Patient returned to the floor in baseline condition. IMPRESSION: Unsuccessful, attempted lumbar puncture for CSF analysis. Limitations as noted above.
[2023-01-16 14:32] LABS: Glucose,Whole Blood 89 mg/dL (70-110)
[2023-01-16 14:42] LABS: ABG Base Excess 2.2 mmol/L; ABG HCO3 26 mmol/L (21-25); ABG Oxygen Saturation 96.6 % (94-97); ABG PCO2 39 mmHg (35-45); ABG PH 7.44 (7.35-7.45); ABG PO2 71 mmHg (83-108); ABG TCO2 28 mmol/L (19-24); Allen Test Performed? Yes
[2023-01-16] MEDS ORDERED: propofoL 100 ML IV ONE (15:05)
[2023-01-16 15:12] LABS: Glucose,Whole Blood 108 mg/dL (70-110)
--- NOTE | 2023-01-16 15:31 | XR ---
EXAMINATION TYPE: XR chest 1V portable DATE OF EXAM: 01/16/2023 HISTORY: Shortness of breath. COMPARISON: 01/08/2023 TECHNIQUE: Single view of the chest is submitted. FINDINGS: Demonstrated are scattered senescent parenchymal change. Stable right upper lobe density. Mass versus infiltrate. Consider CT if felt to be indicated. There m ay be associated rib irregularity. The heart is stable. Hilar and mediastinal structures are within normal limits. Degenerative changes are seen of the dorsal spine. IMPRESSION: 1. Stable right upper lobe density. Mass versus infiltrate. Consider CT if felt to be indicated. The re may be associated rib irregularity.
[2023-01-16] MEDS ORDERED: NALOXONE 0.4 MG/ML 1 ML VIAL IV PRN (15:35)
[2023-01-16] MEDS ORDERED: VANCOMYCIN IV PER PHARMACY 1 EACH MISC MISCELLANE PRN (15:37)
[2023-01-16] MEDS ORDERED: SODIUM CHLORIDE 0.9% 2,000 ML IV ONE (15:37)
[2023-01-16 15:56] LABS: ABG Base Excess 2.4 mmol/L; ABG HCO3 25 mmol/L (21-25); ABG PCO2 30 mmHg (35-45); ABG PH 7.53 (7.35-7.45); ABG PO2 >400 mmHg (83-108); ABG TCO2 26 mmol/L (19-24); Allen Test Performed? Yes
--- NOTE | 2023-01-16 15:58 | XR ---
EXAMINATION TYPE: XR chest 1V portable DATE OF EXAM: 01/16/2023 COMPARISON: 01/16/2023 HISTORY: Tube placement TECHNIQUE: Single frontal view of the chest is obtained. FINDINGS: There is been interval insertion of an ET tube which is 4.6 cm above the rai. There is been interv al placement of an NG tube. Abnormal density in the right midlung is again seen and is unchanged. On the CT of the chest performe d on 12/01/2027 and expansile right rib lesion was seen which appears to correspond to the chest radio graph abnormality.. There is no airspace consolidation or abnormal interstitial density. There are no large pleural effus ions and no pneumothorax. The heart size normal pulmonary vasculature is not congested. IMPRESSION: 1. Interval placement of an ET tube 4.6 cm above the rai. 2. NG tube within the stomach. 3. Right rib lesion as described above. 4. No acute cardiopulmonary disease.
--- NOTE | 2023-01-16 16:05 | P.PN ---
Subjective Patient is seen for follow-up for acute kidney injury and top of chronic kidney disease. Currently maintained on IV fluids. Renal function has improved with creatinine down to 2.9 from 4.0 . Maintained on bicarb drip. Does not respond to verbal stimuli today. Objective - Vital Signs Vital signs: Vital Signs Temp 98.1 F 01/16/23 15:33 Pulse 111 H 01/16/23 15:33 Resp 24 01/16/23 15:33 BP 111/53 01/16/23 15:33 Pulse Ox 99 01/16/23 15:33 FiO2 100 01/16/23 15:31 Intake & Output 01/15/23 01/16/23 01/16/23 18:59 06:59 18:59 Intake Total 10 310 321 Output Total 1000 500 Balance -990 -190 321 Weight 88.451 kg 88.451 kg Intake: IV 10 Invasive Line 4 10 Blood Product 310 321 Platelet Pheresis Pas 321 Psoralen Unit [id number] Rc As-1 Unit 310 [id number] Output: Urine 1000 500 Other: Voiding Method External Catheter External Catheter # Bowel Movements 1 1 - Exam Patient is not responding to verbal stimuli. He is comfortable. O2 sats 99% on room air Examination of the heart S1 and S2 Examination of the lungs bilateral breath sounds are heard Abdomen is soft nontender Examination of lower extremity shows no significant edema - Labs CBC & Chem 7: 01/16/23 05:56 01/16/23 05:56 Labs: Abnormal Lab Results - Last 24 Hours (Table) 01/15/23 01/16/23 01/16/23 Range/Units 11:52 05:56 05:56 WBC 2.14 L (4.50-10.00) X 10*3/uL RBC 2.64 L (4.40-5.60) X 10*6/uL Hgb 7.9 L (13.0-17.0) g/dL Hct 23.7 L (39.6-50.0) % RDW 17.7 H (11.5-14.5) % Plt Count 27 L (140-440) X 10*3/uL Plt Count Comment A MPV 8.7 L (9.5-12.2) fL Metamyelocytes % 4 H (0-0) % Neutrophils # (Manual) 1.48 L (2.00-8.90) X 10*3/uL Lymphocytes # (Manual) 0.34 L (0.90-5.00) X 10*3/uL Monocytes # (Manual) 0.13 L (0.20-1.00) X 10*3/uL ABG pH (7.35-7.45) ABG pCO2 (35-45) mmHg ABG pO2 (83-108) mmHg ABG HCO3 (21-25) mmol/L ABG Total CO2 (19-24) mmol/L ABG O2 Saturation (94-97) % Potassium 3.0 L (3.5-5.5) mmol/L Creatinine 2.9 H (0.6-1.5) mg/dL Est GFR (CKD-EPI)AfAm 24.4 L (60.0-200.0) Est GFR (CKD-EPI)NonAf 21.1 L (60.0-200.0) BUN/Creatinine Ratio 3.41 L (12.00-20.00) Ratio Calcium 8.4 L (8.7-10.3) mg/dL AST 76 H (14-35) U/L C-Reactive Protein 7.70 H (0.00-0.80) mg/dL Total Protein 9.3 H (6.2-8.2) g/dL Albumin 1.7 L (3.8-4.9) g/dL Globulin 7.6 H (1.6-3.3) g/dL Albumin/Globulin Ratio 0.22 L (1.60-3.17) g/dL Crossmatch See Detail 01/16/23 01/16/23 Range/Units 14:39 15:51 WBC (4.50-10.00) X 10*3/uL RBC (4.40-5.60) X 10*6/uL Hgb (13.0-17.0) g/dL Hct (39.6-50.0) % RDW (11.5-14.5) % Plt Count (140-440) X 10*3/uL Plt Count Comment MPV (9.5-12.2) fL Metamyelocytes % (0-0) % Neutrophils # (Manual) (2.00-8.90) X 10*3/uL Lymphocytes # (Manual) (0.90-5.00) X 10*3/uL Monocytes # (Manual) (0.20-1.00) X 10*3/uL ABG pH 7.53 H (7.35-7.45) ABG pCO2 30 L (35-45) mmHg ABG pO2 71 L >400 H (83-108) mmHg ABG HCO3 26 H (21-25) mmol/L ABG Total CO2 28 H 26 H (19-24) mmol/L ABG O2 Saturation 100.0 H (94-97) % Potassium (3.5-5.5) mmol/L Creatinine (0.6-1.5) mg/dL Est GFR (CKD-EPI)AfAm (60.0-200.0) Est GFR (CKD-EPI)NonAf (60.0-200.0) BUN/Creatinine Ratio (12.00-20.00) Ratio Calcium (8.7-10.3) mg/dL AST (14-35) U/L C-Reactive Protein (0.00-0.80) mg/dL Total Protein (6.2-8.2) g/dL Albumin (3.8-4.9) g/dL Globulin (1.6-3.3) g/dL Albumin/Globulin Ratio (1.60-3.17) g/dL Crossmatch Assessment and Plan Assessment: 1. Acute kidney injury, prerenal. Improved with IV hydration. Serum creatinine improved to 2.9 from 4.0 on admission. 2. Recent episode of acute kidney injury with serum creatinine was as high as 6.7 but improved to 3.1 with hydration, serum creatinine 3.1 on 01/01/2023. 3. CK D stage IV IIIB to 4 with serum creatinine at 2.3-2.4 mg/dL as of November 2022. Etiology is multiple myeloma. New baseline appears to be around 3.5 mg/dL now 4. Progressive multiple myeloma with bony metastasis. History of stem cell transplant and immunotherapy. 5. Anemia, multifactorial 6. Fever with possible aspiration pneumonia maintained on antibiotics. ID has been consulted 7. Anion gap metabolic acidosis associated with acute kidney injury however worsened in the last 24 hours. No diarrhea reported. No significant abdominal pain. Maintained on sodium bicarb drip Plan: Continue IVF. Switch to LR Replace potassium Repeat labs in a.m. Overall prognosis is guarded
[2023-01-16 16:06] LABS: Anisocytosis Slight; Basophils % (A) 0 %; Eosinophils # (A) 0.1 k/uL (0-0.7); Eosinophils % (A) 6 %; HCT 21.7 % (39.0-53.0); HGB 7.6 gm/dL (13.0-17.5); Lymphocytes # (A) 0.3 k/uL (1.0-4.8); Lymphocytes % (A) 21 %; MCH 30.7 pg (25.0-35.0); MCHC 34.8 g/dL (31.0-37.0); Mean Platelet Volume 9.7; Monocytes # (A) 0.1 k/uL (0-1.0); Monocytes % (A) 10 %; Neutrophils # (A) 0.9 k/uL (1.3-7.7); Neutrophils % (A) 60 %; Poikilocytosis Slight; RBC 2.46 m/uL (4.30-5.90); RDW 17.9 % (11.5-15.5); WBC 1.5 k/uL (3.8-10.6)
[2023-01-16 16:11] LABS: MCV 88.1 fL (80.0-100.0); Platelet Count 38 k/uL (150-450)
--- NOTE | 2023-01-16 16:14 | P.CNPUL ---
History of Present Illness Consult date: 01/16/23 Chief complaint: Altered mentation, respiratory distress History of present illness: The patient is 67-year-old white male, well known to our service. He follows with Dr. Browning in the outpatient setting. The patient has a known diagnosis of multiple myeloma. He has been off myeloma specific treatment since early 12/11, due to progression, as well as multiple admissions for fever of unknown origin. He was most recently admitted to the hospital on 12/29/22 with new-onset seizures. He was found to have acute on chronic renal failure. He improved with anorexia medication, as well as hydration. It was felt that the seizures were possibly due to uremia. He was then discharged to [facility] Most of the history for this admission was obtained by the patient's was at the bedside. The patient was sleepy and somewhat difficult to arouse. She stated that after lunch yesterday the patient developed nausea and vomiting. After that he was lethargic and had some intermittent tremors. She states that the tremors were not like seizures but more like chills with fever. He remained lethargic and drowsy and did not eat as dinner. Physician was therefore contacted and the patient was asked to come to the ER. In the ER he was found to have a temperature of 102.1 though he was afebrile initially. Chest x-ray showed chronic changes. CT of the abdomen and pelvis did not show any obvious source of infection. His CBC revealed a hemoglobin of 7.1, platelets 68 and WBC of 4. The patient was therefore admitted for further management. The patient himself denies any localizing signs of infection. The patient was initially febrile at time of admission. Since then, the patient has not spiked any temper ature. The patient was seen by various consultants including hematology oncology, nephrology, and neurology. His neurologic functions have been essentially progressing and progressively declining. CAT scan of the brain that was was done on 01/12/2023 showed age-related atrophy with chronic small vessel ischemic changes. MRI of the brain showed symmetrical abnormal increased signal in the occipital lobes and posterior parietal lobes in the rodriguez and white matter. Lumbar puncture was attempted today and was not successful. EEG was done on 01/13/2023 showed abnormal diffuse slowing with moderate to severe encephalopathy. No seizures were noted. The patient subsequently became more unresponsive and this afternoon, the patient was in agonal breathing. The patient got transferred to the intensive care unit. The patient was intubated for airway protection. There was some respiratory secretions and the decubitus were suctioned out. Post intubation chest x-ray showed no significant a bnormalities. No airspace disease. No pleural effusions. The patient had some abnormal ST the right midlung that was unchanged and this was an expansile right rib lesion. The patient was already receiving Zosyn. I added vancomycin. The patient is already on IV acyclovir. Post intubation, he was placed on propofol at 35 mcg/kg/m. He did develop some hypotension is currently receiving a bolus of normal saline. Blood gases post intubation showed a pH of 7.3 with a pCO2 of 30 and pO2 more than 400. Patient is currently on assist control mode at the rate of 24, tidal volume of 450, FiO2 of 100% and a PEEP of 5. The patient is also in acute kidney injury on top of chronic renal failure. His admission creatinine was at 4.07 and dropped down to 2.9. The patient is pancytopenic due to his myeloma with a white second of 2.1, hemoglobin of 7.9 and platelet count of 27. 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, gait dysfunction-uses walker, bilateral pedal/ankle edema, PE 08/2019, chronic low back pain, past vertebral fractures, minimal CAD, shingelles twice, past R heel wound, elevated lipids in the past, History of Any Multi-Drug Resistant Organisms: None Reported Past Surgical History: Heart Catheterization, Orthopedic Surgery Additional Past Surgical History / Comment(s): excision of uvular lesion(benign) 2009, colonoscopy, dave knee arthroscopy, rt rotator cuff sx, moles removed from back(benign), bone marrow aspiration/bx, stem cell transplant 2015, Past Anesthesia/Blood Transfusion Reactions: No Reported Reaction Past Psychological History: No Psychological Hx Reported Smoking Status: Former smoker Past Alcohol Use History: None Reported Past Drug Use History: None Reported - Past Family History Father Family Medical History: Renal Disease, Vascular Disorder Additional Family Medical History / Comment(s): aaa. Father is . Mother Family Medical History: No Reported History Additional Family Medical History / Comment(s): mom is healthy Medications and Allergies Home Medications Medication Instructions Recorded Confirmed Type Acyclovir [Zovirax] 400 mg PO BID 07/07/22 01/08/23 History Apixaban [Eliquis] 2.5 mg PO BID 11/30/22 01/08/23 History Calcium Carbonate [Calcium] 600 mg PO HS 11/30/22 01/08/23 History Cholecalciferol [Vitamin D3 (25 25 mcg PO DAILY 11/30/22 01/08/23 History Mcg = 1000 Iu)] Sodium Bicarbonate Tab 650 mg PO BID 11/30/22 01/08/23 History oxyCODONE HCL [oxyCODONE HCL (IR)] 10 mg PO Q4H PRN #18 tab 01/02/23 01/08/23 Rx Gabapentin 300 mg PO HS 01/08/23 01/08/23 History levETIRAcetam [Keppra] 750 mg PO BID 01/08/23 01/08/23 History Allergies Allergy/AdvReac Type Severity Reaction Status Date / Time sulfamethoxazole Allergy Rash/Hives Verified 01/08/23 19:02 [From Bactrim] trimethoprim [From Bactrim] Allergy Rash/Hives Verified 01/08/23 19:02 Physical Exam Vitals: Vital Signs Temp Pulse Pulse Resp BP BP Pulse Ox 01/16/23 16:00 01/16/23 15:33 98.1 F 111 H 24 111/53 99 01/16/23 15:31 01/16/23 15:27 01/16/23 13:35 104 H 20 118/81 97 01/16/23 13:15 98 16 148/88 97 01/16/23 12:45 98 F 102 H 98 18 109/74 143/86 94 L 01/16/23 12:25 98.4 F 107 H 17 103/69 96 01/16/23 12:16 98.4 F 97 16 100/68 96 01/16/23 08:50 97.0 F L 97 17 142/73 95 01/16/23 02:29 97.2 F L 92 18 151/74 97 01/16/23 02:26 97.2 F L 92 18 151/74 97 01/16/23 02:00 98.6 F 91 15 145/75 96 01/16/23 01:41 91 18 145/75 96 01/16/23 00:41 97.6 F 94 18 153/78 96 01/16/23 00:21 97.2 F L 94 18 142/83 96 01/16/23 00:12 97.4 F L 93 18 143/72 93 L 01/15/23 19:08 97.5 F L 99 15 126/62 95 FiO2 01/16/23 16:00 100 01/16/23 15:33 01/16/23 15:31 100 01/16/23 15:27 100 01/16/23 13:35 01/16/23 13:15 01/16/23 12:45 01/16/23 12:25 01/16/23 12:16 01/16/23 08:50 01/16/23 02:29 01/16/23 02:26 01/16/23 02:00 01/16/23 01:41 01/16/23 00:41 01/16/23 00:21 01/16/23 00:12 01/15/23 19:08 Intake and Output 01/16/23 01/16/23 01/16/23 06:59 14:59 22:59 Intake Total 310 0 321 Output Total 500 Balance -190 0 321 Intake: Blood Product 310 0 321 Platelet Pheresis Pas 0 321 Psoralen Unit [id number] Rc As-1 Unit 310 [id number] Output: Urine 500 Other: Voiding Method External Catheter # Bowel Movements 1 Weight 88.451 kg Unresponsive, currently on sedation with propofol, intubated on a mechanical ventilator Head exam was generally normal. There was no scleral icterus or corneal arcus. Mucous membranes were moist. Neck was supple and without jugular venous distension, thyromegaly, or carotid bruits. Carotids were easily palpable bilaterally. There was no adenopathy. Lungs were clear to auscultation and percussion, and with normal diaphragmatic excursion. No wheezes or rales were noted. Cardiac exam revealed the PMI to be normally situated and sized. The rhythm was regular and no extrasystoles were noted during several minutes of auscultation. The first and second heart sounds were normal and physiologic splitting of the second heart sound was noted. There were no murmurs, rubs, clicks, or gallops. Abdominal exam revealed normal bowel sounds. The abdomen was soft, non-tender, and without masses, organomegaly, or appreciable enlargement of the abdominal aorta. Examination of the extremities revealed easily palpable radial, femoral and pedal pulses. There was no cyanosis, clubbing or edema. Neurologically the patient is around 3 mm pupils, sluggishly reactive to light. Positive cough. Positive gag. Not responsive to any verbal or painful stimulation. No Babinski. No clonus. Reflexes are symmetrical. Results - Laboratory Findings CBC and BMP: 01/16/23 05:56 01/16/23 05:56 ABG ABG pH 7.53 (7.35-7.45) H 01/16/23 15:51 ABG pCO2 30 mmHg (35-45) L 01/16/23 15:51 ABG pO2 >400 mmHg (83-108) H 01/16/23 15:51 ABG O2 Saturation 100.0 % (94-97) H 01/16/23 15:51 PT/INR, D-dimer PT 12.1 sec (9.0-12.0) H 01/15/23 11:15 INR 1.2 (<1.2) H 01/15/23 11:15 Abnormal lab findings: Abnormal Labs 01/08/23 01/08/23 01/08/23 19:15 19:15 19:15 WBC RBC 2.25 L Hgb 7.1 L Hct 21.4 L MCV MCHC RDW 17.8 H Plt Count 68 L Plt Count Comment MPV Metamyelocytes % Immature Gran # Neutrophils # Neutrophils # (Manual) Lymphocytes # 0.6 L Lymphocytes # (Manual) Monocytes # (Manual) Metamyelocytes # (Man) Myelocytes # (Manual) PT INR ABG pH ABG pCO2 ABG pO2 ABG HCO3 ABG Total CO2 ABG O2 Saturation Sodium 135 L Potassium Chloride Carbon Dioxide 18 L Anion Gap BUN 32 H Creatinine 4.07 H Est GFR (CKD-EPI)AfAm Est GFR (CKD-EPI)NonAf BUN/Creatinine Ratio Glucose Calcium Ionized Calcium Noemí AST C-Reactive Protein Total Protein 10.3 H Albumin 2.9 L Globulin Albumin/Globulin Ratio Urine Protein Urine Ketones Urine Blood Urine Bacteria IgG 7861.0 H IgA 1.7 L IgM 3.4 L Crossmatch 01/08/23 01/10/23 01/10/23 23:40 12:01 12:01 WBC 2.82 L RBC 2.05 L Hgb 6.2 L* Hct 20.4 L MCV 99.5 H MCHC 30.4 L RDW 18.0 H Plt Count 65 L Plt Count Comment DECREASED A MPV Metamyelocytes % Immature Gran # 0.05 H Neutrophils # Neutrophils # (Manual) Lymphocytes # 0.36 L Lymphocytes # (Manual) Monocytes # (Manual) Metamyelocytes # (Man) Myelocytes # (Manual) PT INR ABG pH ABG pCO2 ABG pO2 ABG HCO3 ABG Total CO2 ABG O2 Saturation Sodium Potassium Chloride Carbon Dioxide 17 L Anion Gap BUN 27 H Creatinine 4.02 H Est GFR (CKD-EPI)AfAm Est GFR (CKD-EPI)NonAf BUN/Creatinine Ratio Glucose 70 L Calcium Ionized Calcium Noemí AST C-Reactive Protein Total Protein Albumin Globulin Albumin/Globulin Ratio Urine Protein 1+ H Urine Ketones 1+ H Urine Blood Trace H Urine Bacteria Rare H IgG IgA IgM Crossmatch 01/10/23 01/11/23 01/11/23 18:11 04:40 04:40 WBC 1.8 L RBC 2.06 L Hgb 6.3 L* Hct 19.8 L* MCV MCHC RDW 17.9 H Plt Count 52 L Plt Count Comment MPV Metamyelocytes % Immature Gran # Neutrophils # 1.2 L Neutrophils # (Manual) Lymphocytes # 0.4 L Lymphocytes # (Manual) Monocytes # (Manual) Metamyelocytes # (Man) Myelocytes # (Manual) PT INR ABG pH ABG pCO2 ABG pO2 ABG HCO3 ABG Total CO2 ABG O2 Saturation Sodium 132 L Potassium Chloride Carbon Dioxide 18.8 L Anion Gap BUN Creatinine 3.8 H Est GFR (CKD-EPI)AfAm 17.8 L Est GFR (CKD-EPI)NonAf 15.3 L BUN/Creatinine Ratio 6.24 L Glucose 65 L Calcium Ionized Calcium Noemí AST C-Reactive Protein Total Protein Albumin Globulin Albumin/Globulin Ratio Urine Protein Urine Ketones Urine Blood Urine Bacteria IgG IgA IgM Crossmatch See Detail 01/12/23 01/12/23 01/13/23 04:55 04:55 04:06 WBC 2.0 L 2.27 L RBC 2.66 L 2.37 L Hgb 8.4 L D 7.1 L Hct 24.6 L 22.3 L MCV MCHC 31.8 L RDW 18.2 H 18.2 H Plt Count 48 L 43 L Plt Count Comment A MPV Metamyelocytes % Immature Gran # 0.07 H Neutrophils # 1.26 L Neutrophils # (Manual) 1.20 L Lymphocytes # 0.54 L Lymphocytes # (Manual) 0.26 L Monocytes # (Manual) Metamyelocytes # (Man) 0.02 H Myelocytes # (Manual) 0.04 H PT INR ABG pH ABG pCO2 ABG pO2 ABG HCO3 ABG Total CO2 ABG O2 Saturation Sodium 134 L Potassium Chloride Carbon Dioxide Anion Gap BUN Creatinine 3.7 H Est GFR (CKD-EPI)AfAm 18.3 L Est GFR (CKD-EPI)NonAf 15.8 L BUN/Creatinine Ratio 5.57 L Glucose Calcium Ionized Calcium Noemí AST 48 H C-Reactive Protein Total Protein 9.2 H Albumin 1.8 L Globulin 7.4 H Albumin/Globulin Ratio 0.24 L Urine Protein Urine Ketones Urine Blood Urine Bacteria IgG IgA IgM Crossmatch 01/13/23 01/14/23 01/14/23 04:06 07:20 07:20 WBC 2.4 L RBC 2.41 L Hgb 7.4 L Hct 22.8 L MCV MCHC RDW 18.0 H Plt Count 44 L Plt Count Comment MPV Metamyelocytes % Immature Gran # Neutrophils # Neutrophils # (Manual) Lymphocytes # 0.6 L Lymphocytes # (Manual) Monocytes # (Manual) Metamyelocytes # (Man) Myelocytes # (Manual) PT INR ABG pH ABG pCO2 ABG pO2 ABG HCO3 ABG Total CO2 ABG O2 Saturation Sodium Potassium Chloride 112 H Carbon Dioxide 17.9 L 11 L Anion Gap BUN Creatinine 3.6 H 3.65 H Est GFR (CKD-EPI)AfAm 19.0 L Est GFR (CKD-EPI)NonAf 16.4 L BUN/Creatinine Ratio 5.14 L Glucose 51 L 60 L Calcium Ionized Calcium Noemí AST C-Reactive Protein Total Protein Albumin Globulin Albumin/Globulin Ratio Urine Protein Urine Ketones Urine Blood Urine Bacteria IgG IgA IgM Crossmatch 01/14/23 01/15/23 01/15/23 10:03 06:18 06:18 WBC 2.17 L RBC 2.26 L Hgb 6.9 L* Hct 20.9 L MCV MCHC RDW 18.2 H Plt Count 33 L Plt Count Comment MPV Metamyelocytes % Immature Gran # Neutrophils # Neutrophils # (Manual) Lymphocytes # Lymphocytes # (Manual) Monocytes # (Manual) Metamyelocytes # (Man) Myelocytes # (Manual) PT INR ABG pH ABG pCO2 ABG pO2 ABG HCO3 ABG Total CO2 ABG O2 Saturation Sodium Potassium Chloride Carbon Dioxide 14.5 L Anion Gap 20.60 H BUN Creatinine 3.3 H Est GFR (CKD-EPI)AfAm 20.9 L Est GFR (CKD-EPI)NonAf 18.1 L BUN/Creatinine Ratio 4.34 L Glucose Calcium Ionized Calcium Noemí 6.0 H* AST 74 H C-Reactive Protein Total Protein 10.0 H Albumin 2.0 L Globulin 8.0 H Albumin/Globulin Ratio 0.25 L Urine Protein Urine Ketones Urine Blood Urine Bacteria IgG IgA IgM Crossmatch 01/15/23 01/15/23 01/16/23 11:15 11:52 05:56 WBC 2.14 L RBC 2.64 L Hgb 7.9 L Hct 23.7 L MCV MCHC RDW 17.7 H Plt Count 27 L Plt Count Comment A MPV 8.7 L Metamyelocytes % 4 H Immature Gran # Neutrophils # Neutrophils # (Manual) 1.48 L Lymphocytes # Lymphocytes # (Manual) 0.34 L Monocytes # (Manual) 0.13 L Metamyelocytes # (Man) Myelocytes # (Manual) PT 12.1 H INR 1.2 H ABG pH ABG pCO2 ABG pO2 ABG HCO3 ABG Total CO2 ABG O2 Saturation Sodium Potassium Chloride Carbon Dioxide Anion Gap BUN Creatinine Est GFR (CKD-EPI)AfAm Est GFR (CKD-EPI)NonAf BUN/Creatinine Ratio Glucose Calcium Ionized Calcium Noemí AST C-Reactive Protein Total Protein Albumin Globulin Albumin/Globulin Ratio Urine Protein Urine Ketones Urine Blood Urine Bacteria IgG IgA IgM Crossmatch See Detail 01/16/23 01/16/23 01/16/23 05:56 14:39 15:51 WBC RBC Hgb Hct MCV MCHC RDW Plt Count Plt Count Comment MPV Metamyelocytes % Immature Gran # Neutrophils # Neutrophils # (Manual) Lymphocytes # Lymphocytes # (Manual) Monocytes # (Manual) Metamyelocytes # (Man) Myelocytes # (Manual) PT INR ABG pH 7.53 H ABG pCO2 30 L ABG pO2 71 L >400 H ABG HCO3 26 H ABG Total CO2 28 H 26 H ABG O2 Saturation 100.0 H Sodium Potassium 3.0 L Chloride Carbon Dioxide Anion Gap BUN Creatinine 2.9 H Est GFR (CKD-EPI)AfAm 24.4 L Est GFR (CKD-EPI)NonAf 21.1 L BUN/Creatinine Ratio 3.41 L Glucose Calcium 8.4 L Ionized Calcium Noemí AST 76 H C-Reactive Protein 7.70 H Total Protein 9.3 H Albumin 1.7 L Globulin 7.6 H Albumin/Globulin Ratio 0.22 L Urine Protein Urine Ketones Urine Blood Urine Bacteria IgG IgA IgM Crossmatch - Diagnostic Findings Chest x-ray: image reviewed Assessment and Plan Plan: Altered mentation with progressive worsening in her level of consciousness and the patient came into the ICU, unresponsive. Exact cause is not clear. Rule out underlying encephalitis. Rule out metabolic encephalopathy. Acute respiratory failure, hypoxic, and the patient was intubated for airway pr otection. Post intubation, the oxygenation improved and the chest x-ray showed no evidence of any acute pneumonia History of seizures Fever, recovered History of posterior reversible encephalopathy syndrome on MRI based on the one that was done on 12/29/2022 and subsequent improvement on follow-up MRI imaging. Multiple myeloma,noted disease progression on Kyprolis/Pomalyst/dexamethasone. Has been seen by Dr. Gambino of [facility] in [place] to review CAR-T treatment on 01/07/2023 the Plan was to undergo salvage treatment for additional disease control prior to undergoing CAR-T Pancytopenia secondary to above Chronic kidney disease secondary to multiple myeloma, the patient is known to have chronic stage III B kidney disease Acute on top of chronic kidney insufficiency secondary myeloma, improving Previous history of pulmonary embolism Coronary artery disease T12 fracture and multiple vertebral fracture due to multiple myeloma Hyperlipidemia Plan Continue vent support and dropped FiO2 down to 50% and up-to-date on 214 Propofol drip for sedation Obtain sputum Gram stain and culture and blood cultures CAT scan of the brain to be repeated Continue Zosyn and acyclovir Start the patient on IV vancomycin Give the patient L 2 L bolus of IV fluids, normal saline Initiate enteral feeding for nutritional support May need to repeat the lumbar puncture attempt Continue Keppra on Vimpat Neurologic immediately consulted Nephrology consult Hematology oncology consult We will prognosis and will continue to follow.
--- NOTE | 2023-01-16 16:16 | P.PCN ---
Date of Procedure: 01/16/23 Preoperative Diagnosis: Acute hypoxic respiratory failure Postoperative Diagnosis: Acute hypoxic respiratory failure, altered mental status Procedure(s) Performed: Central line insertion, arterial line insertion Anesthesia: local Surgeon: Lisa Alvarez Estimated Blood Loss (ml): 0 Pathology: other Condition: critical Disposition: ICU Operative Findings: Indication: Hemodynamic monitoring. A time-out was completed verifying correct patient, procedure, site, positioning, and implant(s) or special equipment if applicable. Allens test was performed to ensure adequate perfusion. The patients left wrist groin was prepped and draped in sterile fashion. 1% Lidocaine was used to anesthetize the area. An 18G Arrow arterial line was introduced into the left radial artery. The catheter was threaded over the guide wire and the needle was removed with appropriate pulsatile blood return. Blood loss was minimal. The catheter was then sutured in place to the skin and a sterile dressing applied. Perfusion to the extremity distal to the point of catheter insertion was checked and found to be adequate. The patient tolerated the procedure well and there were no complications. Indication: Hemodynamic monitoring/Intravenous access. A time-out was completed verifying correct patient, procedure, site, positioning, and implant(s) or special equipment if applicable. The patient was placed in a dependent position appropriate for central line placement based on the vein to be cannulated. The patients right groin was prepped and draped in sterile fashion. 1% Lidocaine was used to anesthetize the surrounding skin area. A triple lumen 9F Cordis catheter was introduced into the right ommon femoral vein using Seldinger technique. The catheter was threaded smoothly over the guide wire and appropriate blood return was obtained. Each lumen of the catheter was evacuated of air and flushed with sterile saline. The catheter was then sutured in place to the skin and a sterile dressing applied. Perfusion to the extremity distal to the point of catheter insertion was checked and found to be adequate. The patient tolerated the procedure well and there were no complications.
[2023-01-16 16:20] LABS: African American GFR (CKD) 25 (>60 ml/min/1.73 sqM); Anion Gap 10 mmol/L; Blood Urea Nitrogen 10 mg/dL (9-20); Calcium 7.6 mg/dL (8.4-10.2); Carbon Dioxide 23 mmol/L (22-30); Chloride 110 mmol/L (98-107); Glucose 101 mg/dL (74-99); Magnesium 1.4 mg/dL (1.6-2.3); Non-African American GFR(CKD) 21 (>60 ml/min/1.73 sqM); Potassium 3.1 mmol/L (3.5-5.1); Sodium 143 mmol/L (137-145)
[2023-01-16 16:21] LABS: INR 1.2 (<1.2); Partial Thromboplastin Time 33.1 sec (22.0-30.0); Prothrombin Time 12.1 sec (9.0-12.0)
[2023-01-16] MEDS ORDERED: VANCOMYCIN 1,750 MG in SODIUM CHLORIDE 0.9% 500 ML 500 ML IVPB ONE (17:00)
[2023-01-16] MEDS: MAGNESIUM SULFATE-D5W PMX 1 GM in DEXTROSE/WATER 1 100ML.BAG IVPB SCH ×3 (17:06→19:09)
[2023-01-16] MEDS: POTASSIUM BICARBONATE/CIT AC 20 MEQ TABLET.EFF PO SCH ×3 (17:06→18:14)
[2023-01-16] MEDS ORDERED: PHYTONADIONE 10 MG in SODIUM CHLORIDE 0.9% 50 ML IVPB STA (20:37)
[2023-01-16] MEDS: CALCIUM CARBONATE 500 MG CHEWABLE PO SCH (21:02)
[2023-01-16] MEDS: GABAPENTIN 300 MG CAP PO SCH (21:02)
[2023-01-16] MEDS: CHLORHEXIDINE GLUCONATE 15 ML CUP MUCOUS MEM SCH (21:02)
[2023-01-16 21:23] LABS: INR 1.1 (<1.2); Partial Thromboplastin Time 32.7 sec (22.0-30.0); Prothrombin Time 11.8 sec (9.0-12.0)
[2023-01-16 22:05] LABS: Magnesium 2.3 mg/dL (1.6-2.3)
--- NOTE | 2023-01-17 00:10 | P.PN ---
Subjective Progress Note Date: 01/15/23 Patient is a 67-year-old male with history of chronic kidney disease NKF stage IIIB with baseline creatinine around 1.7-1.9 mg/dL secondary to multiple myeloma. Patient has underlying multiple myeloma status post chemotherapy and stem cell transplantation and immunotherapy. Multiple myeloma has progressed with bone metastasis and treatment is currently on hold since November 2022 due to multiple recent admissions and history of fever. Patient had acute kidney injury,mostly prerenal, during his last hospitalization about 2 weeks ago. Serum creatinine had improved to about 3.1 from 6.7 at peak. Patient received IV hydration. Patient is admitted again with decreased oral intake, nausea and vomiting and increased weakness. Patient also had a fever of 10 2F. Patient had tremors/chills but no seizures according to his . Serum creatinine was 4.0 this admission. Patient has had good urine output. Currently with external catheter. 01/11/23. Patient seen and examined. Patient is lethargic. at the bedside. Hemoglobin this morning 6.3. Creatinine improved to 3.8 01/12. Patient seen and examined. Patient more confused according to nursing staff and . Able to give me time place and date of and president name. 01/13. Patient seen and examined. Hemoglobin this morning is 7.1, creatinine this morning is 3.6. Patient mental status waxes and wanes. 01/14. Patient seen and examined. Patient is very lethargic today, continues to be afebrile. Has poor appetite. at the bedside 01/15/2023 Patient is currently lying in the bed. Encephalopathic. Nonverbal. Could not follow commands. Otherwise patient has been afebrile. Saturating at 94% on room air. No cough or sputum production. Laboratory data showed WBC 2.1 hemoglobin 6.9 and platelets 33 Sodium 140 potassium 4.1 chloride 105 BUN 14.4 and creatinine 3.3. Albumin 2.0 Blood cultures negative so far. Patient is being continued on antibiotics in the form of Zosyn. Also on acyclovir IV. Patient is being continued on Keppra. Eliquis is on hold for possible lumbar puncture tomorrow. Current medications reviewed. REVIEW OF SYSTEMS: Cannot be obtained because of patient's lethargy Objective - Vital Signs Vital signs: Vital Signs Temp 96.8 F L 01/15/23 07:04 Pulse 84 01/15/23 07:04 Resp 18 01/15/23 07:04 BP 157/74 01/15/23 07:04 Pulse Ox 97 01/15/23 08:40 FiO2 Intake & Output 01/14/23 01/15/23 01/15/23 18:59 06:59 18:59 Output Total 800 1430 Balance -800 -1430 Output: Urine 800 1430 Other: Voiding Method External Catheter External Catheter External Catheter # Bowel Movements 1 1 - Exam PHYSICAL EXAMINATION: GENERAL: The patient is Encephalopathic. Not responding with verbal stimuli.. Well developed, well nourished. HEENT: Pupils are round and equally reacting to light. EOMI. No scleral icterus. No conjunctival pallor. Normocephalic, atraumatic. No pharyngeal erythema. No thyromegaly. CARDIOVASCULAR: S1 and S2 present. No murmurs, rubs, or gallops. PULMONARY: Chest is clear to auscultation, no wheezing or crackles. ABDOMEN: Soft, nontender, nondistended, normoactive bowel sounds. No palpable organomegaly. MUSCULOSKELETAL: No joint swelling or deformity. EXTREMITIES: No cyanosis, clubbing, or pedal edema. NEUROLOGICAL: Gross neurological examination did not reveal any focal deficits. SKIN: No rashes. - Labs CBC & Chem 7: 01/16/23 16:00 01/16/23 21:26 Labs: Abnormal Lab Results - Last 24 Hours (Table) 01/15/23 01/15/23 Range/Units 06:18 06:18 WBC 2.17 L (4.50-10.00) X 10*3/uL RBC 2.26 L (4.40-5.60) X 10*6/uL Hgb 6.9 L* (13.0-17.0) g/dL Hct 20.9 L (39.6-50.0) % RDW 18.2 H (11.5-14.5) % Plt Count 33 L (140-440) X 10*3/uL Carbon Dioxide 14.5 L (20.0-27.5) mmol/L Anion Gap 20.60 H (10.00-18.00) mmol/L Creatinine 3.3 H (0.6-1.5) mg/dL Est GFR (CKD-EPI)AfAm 20.9 L (60.0-200.0) Est GFR (CKD-EPI)NonAf 18.1 L (60.0-200.0) BUN/Creatinine Ratio 4.34 L (12.00-20.00) Ratio AST 74 H (14-35) U/L Total Protein 10.0 H (6.2-8.2) g/dL Albumin 2.0 L (3.8-4.9) g/dL Globulin 8.0 H (1.6-3.3) g/dL Albumin/Globulin Ratio 0.25 L (1.60-3.17) g/dL Microbiology - Last 24 Hours (Table) 01/08/23 19:15 Blood Culture - Final Blood No Growth after 144 hours 01/08/23 19:15 Blood Culture - Final Blood No Growth after 144 hours Assessment and Plan Assessment: Altered mental status likely due to metabolic encephalopathy. Fever of unknown origin. History of posterior reversible encephalopathy syndrome on MRI of the brain on 12/29/2022 History of multiple myeloma underwent chemotherapy Pancytopenia due to antineoplastic chemotherapy Acute kidney injury, prerenal. Start IV fluids CK D stage IV IIIB to 4 with serum creatinine at 2.3-2.4 mg/dL as of November 2022. Hypercalcemia History of pulmonary embolism. On Eliquis Plan; Patient will be continued on bicarb drip. On antibiotics in the form of Zosyn and also on acyclovir. Continue with Keppra due to history of seizures and twitching movements. Eliquis is on hold due to possible lumbar puncture. Blood cultures have been negative so far. Follow-up on hematology oncology recommendations, hematology plan for patient to undergo salvage treatment for additional disease control prior to undergoing CAR-T -Transfuse for hemoglobin less than 7, Will transfuse 1 unit of packed red blood cells his hemoglobin is 6.3 -Transfuse for platelets less than or equal to 10,[address] head ordered negative for acute intracranial process. Neurology evaluated the patient recommended continuing Keppra and added Vimpat, EEG showed moderate to severe encephalopathy LP being considered For hypercalcemia pamidronate ordered by hematology Follow-up in nephrology recommendations Follow-up in ID recs Time with Patient: Greater than 30
--- NOTE | 2023-01-17 00:19 | P.PN ---
Subjective Progress Note Date: 01/16/23 Patient is a 67-year-old male with history of chronic kidney disease NKF stage IIIB with baseline creatinine around 1.7-1.9 mg/dL secondary to multiple myeloma. Patient has underlying multiple myeloma status post chemotherapy and stem cell transplantation and immunotherapy. Multiple myeloma has progressed with bone metastasis and treatment is currently on hold since November 2022 due to multiple recent admissions and history of fever. Patient had acute kidney injury,mostly prerenal, during his last hospitalization about 2 weeks ago. Serum creatinine had improved to about 3.1 from 6.7 at peak. Patient received IV hydration. Patient is admitted again with decreased oral intake, nausea and vomiting and increased weakness. Patient also had a fever of 10 2F. Patient had tremors/chills but no seizures according to his . Serum creatinine was 4.0 this admission. Patient has had good urine output. Currently with external catheter. 01/11/23. Patient seen and examined. Patient is lethargic. at the bedside. Hemoglobin this morning 6.3. Creatinine improved to 3.8 01/12. Patient seen and examined. Patient more confused according to nursing staff and . Able to give me time place and date of and president name. 01/13. Patient seen and examined. Hemoglobin this morning is 7.1, creatinine this morning is 3.6. Patient mental status waxes and wanes. 01/14. Patient seen and examined. Patient is very lethargic today, continues to be afebrile. Has poor appetite. at the bedside 01/15/2023 Patient is currently lying in the bed. Encephalopathic. Nonverbal. Could not follow commands. Otherwise patient has been afebrile. Saturating at 94% on room air. No cough or sputum production. Laboratory data showed WBC 2.1 hemoglobin 6.9 and platelets 33 Sodium 140 potassium 4.1 chloride 105 BUN 14.4 and creatinine 3.3. Albumin 2.0 Blood cultures negative so far. Patient is being continued on antibiotics in the form of Zosyn. Also on acyclovir IV. Patient is being continued on Keppra. Eliquis is on hold for possible lumbar puncture tomorrow. 01/16/2023 Patient remains confused and does not respond with verbal stimuli. Patient is having difficulty clearing secretions in the throat. Patient had attempted lumbar puncture today but could not be completed. Patient received platelet transfusion. Patient became more lethargic and unresponsive today afternoon. Rapid response team was called and critical care team was consulted. Patient was intubated for airway protection. Chest x-ray showed no acute cardiopulmonary process. Patient remains on antibiotics in the form of Zosyn. Also on acyclovir. Blood cultures have been negative. Laboratory data showed WBC 2.1 hemoglobin 7.9 and platelets 27 ABG showed pH 7.4 PCO2 39 and PO2 71. Sodium 143 potassium 3.0 chloride 104 bicarb is 23.9 BUN 10 and creatinine 2.9 today. Calcium level 8.4. CRP 7.7. HSV serology negative. Neurology and oncology is on board. Current medications reviewed. REVIEW OF SYSTEMS: Cannot be obtained because of patient's lethargy Objective - Vital Signs Vital signs: Vital Signs Temp 98.8 F 01/16/23 20:00 Pulse 90 01/16/23 21:00 Resp 14 01/16/23 21:00 BP 128/99 01/16/23 21:00 Pulse Ox 100 01/16/23 21:00 FiO2 40 01/16/23 21:52 Intake & Output 01/16/23 01/16/23 01/17/23 06:59 18:59 06:59 Intake Total 310 3891 140.988 Output Total 500 370 100 Balance -190 3521 40.988 Weight 88.451 kg Intake: Intake, IV Titration 3570 140.988 Amount Acyclovir Sodium 900 mg 250 In Sodium Chloride 0.9% 250 ml @ 268 mls/hr IVPB Q12H [facility] Rx#:[id number] Dextrose 5% in Water 1, 320 80 000 ml @ 80 mls/hr IV . [id number] [facility] with Sodium Bicarb (1 Meq/ml) 150 ml Rx#:[id number] Magnesium Sulfate-D5w Pmx 300 1 gm In Dextrose/Water 1 100ml.bag @ 100 mls/hr IVPB Q1H [facility] Rx#: [id number] Piperacillin-Tazobactam 3 100 .375 gm In Sodium Chloride 0.9% 100 ml @ 25 mls/hr IVPB Q8H [facility] Rx#: [id number] Potassium Chloride 20 meq 100 In Water For Injection 1 100ml.bag @ 50 mls/hr IVPB ONCE STA Rx#: [id number] Sodium Chloride 0.9% 2, 2000 000 ml @ 999 mls/hr IV . Q2H1M ONE Rx#:[id number] Vancomycin 1,750 mg In 500 Sodium Chloride 0.9% 500 ml 500 ml @ 167 mls/hr IVPB ONCE ONE Rx#: [id number] propofoL 1,000 mg In 60.988 Empty Bag 1 bag @ 15 MCG/ KG/MIN 7.961 mls/hr IV . [id number] [facility] Rx#:[id number] Blood Product 310 321 Platelet Pheresis Pas 321 Psoralen Unit [id number] Rc As-1 Unit 310 [id number] Output: Urine 500 370 100 Other: Voiding Method Indwelling Catheter # Bowel Movements 1 ABP, PAP, CO, CI - Last Documented Arterial Blood Pressure 99/38 - Exam PHYSICAL EXAMINATION: GENERAL: The patient is on vent.. Well developed, well nourished. HEENT: Pupils are round and equally reacting to light. EOMI. No scleral icterus. No conjunctival pallor. Normocephalic, atraumatic. No pharyngeal erythema. No thyromegaly. CARDIOVASCULAR: S1 and S2 present. No murmurs, rubs, or gallops. PULMONARY: Chest is clear to auscultation, no wheezing or crackles. ABDOMEN: Soft, nontender, nondistended, normoactive bowel sounds. No palpable organomegaly. MUSCULOSKELETAL: No joint swelling or deformity. EXTREMITIES: No cyanosis, clubbing, or pedal edema. NEUROLOGICAL: Gross neurological examination did not reveal any focal deficits. SKIN: No rashes. - Labs CBC & Chem 7: 01/16/23 16:00 01/16/23 21:26 Labs: Abnormal Lab Results - Last 24 Hours (Table) 01/15/23 01/16/23 01/16/23 Range/Units 11:52 05:56 05:56 WBC 2.14 L (4.50-10.00) X 10*3/uL RBC 2.64 L (4.40-5.60) X 10*6/uL Hgb 7.9 L (13.0-17.0) g/dL Hct 23.7 L (39.6-50.0) % RDW 17.7 H (11.5-14.5) % Plt Count 27 L (140-440) X 10*3/uL Plt Count Comment A MPV 8.7 L (9.5-12.2) fL Metamyelocytes % 4 H (0-0) % Neutrophils # (1.3-7.7) k/uL Neutrophils # (Manual) 1.48 L (2.00-8.90) X 10*3/uL Lymphocytes # (1.0-4.8) k/uL Lymphocytes # (Manual) 0.34 L (0.90-5.00) X 10*3/uL Monocytes # (Manual) 0.13 L (0.20-1.00) X 10*3/uL PT (9.0-12.0) sec INR (<1.2) APTT (22.0-30.0) sec ABG pH (7.35-7.45) ABG pCO2 (35-45) mmHg ABG pO2 (83-108) mmHg ABG HCO3 (21-25) mmol/L ABG Total CO2 (19-24) mmol/L ABG O2 Saturation (94-97) % Potassium 3.0 L (3.5-5.5) mmol/L Chloride (98-107) mmol/L Creatinine 2.9 H (0.6-1.5) mg/dL Est GFR (CKD-EPI)AfAm 24.4 L (60.0-200.0) Est GFR (CKD-EPI)NonAf 21.1 L (60.0-200.0) BUN/Creatinine Ratio 3.41 L (12.00-20.00) Ratio Glucose (74-99) mg/dL Calcium 8.4 L (8.7-10.3) mg/dL Magnesium (1.6-2.3) mg/dL AST 76 H (14-35) U/L C-Reactive Protein 7.70 H (0.00-0.80) mg/dL Total Protein 9.3 H (6.2-8.2) g/dL Albumin 1.7 L (3.8-4.9) g/dL Globulin 7.6 H (1.6-3.3) g/dL Albumin/Globulin Ratio 0.22 L (1.60-3.17) g/dL Crossmatch See Detail 01/16/23 01/16/23 01/16/23 Range/Units 14:39 15:51 16:00 WBC 1.5 L (4.50-10.00) X 10*3/uL RBC 2.46 L (4.40-5.60) X 10*6/uL Hgb 7.6 L (13.0-17.0) g/dL Hct 21.7 L (39.6-50.0) % RDW 17.9 H (11.5-14.5) % Plt Count 38 L (140-440) X 10*3/uL Plt Count Comment MPV (9.5-12.2) fL Metamyelocytes % (0-0) % Neutrophils # 0.9 L (1.3-7.7) k/uL Neutrophils # (Manual) (2.00-8.90) X 10*3/uL Lymphocytes # 0.3 L (1.0-4.8) k/uL Lymphocytes # (Manual) (0.90-5.00) X 10*3/uL Monocytes # (Manual) (0.20-1.00) X 10*3/uL PT (9.0-12.0) sec INR (<1.2) APTT (22.0-30.0) sec ABG pH 7.53 H (7.35-7.45) ABG pCO2 30 L (35-45) mmHg ABG pO2 71 L >400 H (83-108) mmHg ABG HCO3 26 H (21-25) mmol/L ABG Total CO2 28 H 26 H (19-24) mmol/L ABG O2 Saturation 100.0 H (94-97) % Potassium (3.5-5.5) mmol/L Chloride (98-107) mmol/L Creatinine (0.6-1.5) mg/dL Est GFR (CKD-EPI)AfAm (60.0-200.0) Est GFR (CKD-EPI)NonAf (60.0-200.0) BUN/Creatinine Ratio (12.00-20.00) Ratio Glucose (74-99) mg/dL Calcium (8.7-10.3) mg/dL Magnesium (1.6-2.3) mg/dL AST (14-35) U/L C-Reactive Protein (0.00-0.80) mg/dL Total Protein (6.2-8.2) g/dL Albumin (3.8-4.9) g/dL Globulin (1.6-3.3) g/dL Albumin/Globulin Ratio (1.60-3.17) g/dL Crossmatch 01/16/23 01/16/23 01/16/23 Range/Units 16:00 16:00 20:50 WBC (4.50-10.00) X 10*3/uL RBC (4.40-5.60) X 10*6/uL Hgb (13.0-17.0) g/dL Hct (39.6-50.0) % RDW (11.5-14.5) % Plt Count (140-440) X 10*3/uL Plt Count Comment MPV (9.5-12.2) fL Metamyelocytes % (0-0) % Neutrophils # (1.3-7.7) k/uL Neutrophils # (Manual) (2.00-8.90) X 10*3/uL Lymphocytes # (1.0-4.8) k/uL Lymphocytes # (Manual) (0.90-5.00) X 10*3/uL Monocytes # (Manual) (0.20-1.00) X 10*3/uL PT 12.1 H (9.0-12.0) sec INR 1.2 H (<1.2) APTT 33.1 H 32.7 H (22.0-30.0) sec ABG pH (7.35-7.45) ABG pCO2 (35-45) mmHg ABG pO2 (83-108) mmHg ABG HCO3 (21-25) mmol/L ABG Total CO2 (19-24) mmol/L ABG O2 Saturation (94-97) % Potassium 3.1 L (3.5-5.5) mmol/L Chloride 110 H (98-107) mmol/L Creatinine 2.88 H (0.6-1.5) mg/dL Est GFR (CKD-EPI)AfAm (60.0-200.0) Est GFR (CKD-EPI)NonAf (60.0-200.0) BUN/Creatinine Ratio (12.00-20.00) Ratio Glucose 101 H (74-99) mg/dL Calcium 7.6 L (8.7-10.3) mg/dL Magnesium 1.4 L (1.6-2.3) mg/dL AST (14-35) U/L C-Reactive Protein (0.00-0.80) mg/dL Total Protein (6.2-8.2) g/dL Albumin (3.8-4.9) g/dL Globulin (1.6-3.3) g/dL Albumin/Globulin Ratio (1.60-3.17) g/dL Crossmatch Assessment and Plan Assessment: Altered mental status likely due to metabolic encephalopathy.Possible encephalitis. Patient was intubated for airway protection. Fever of unknown origin. History of posterior reversible encephalopathy syndrome on MRI of the brain on 12/29/2022 History of multiple myeloma underwent chemotherapy Pancytopenia due to antineoplastic chemotherapy T12 fracture and multiple vertebral fracture due to multiple myeloma Acute kidney injury, prerenal. Start IV fluids CK D stage IV IIIB to 4 with serum creatinine at 2.3-2.4 mg/dL as of November 2022. Hypercalcemia History of pulmonary embolism. On Eliquis Plan; Patient will be transferred to MICU. Patient will be continued on bicarb drip. On antibiotics in the form of Zosyn and also on acyclovir. Vancomycin was added. Continue with Keppra due to history of seizures and twitching movements. Eliquis is on hold for lumbar puncture. Blood cultures have been negative so far. Follow-up on hematology oncology recommendations, hematology plan for patient to undergo salvage treatment for additional disease control prior to undergoing CAR-T -Transfuse for hemoglobin less than 7, Will transfuse 1 unit of packed red blood cells his hemoglobin is 6.3 -Transfuse for platelets less than or equal to 10,[address] head ordered negative for acute intracranial process. Neurology evaluated the patient recommended continuing Keppra and added Vimpat, EEG showed moderate to severe encephalopathy For hypercalcemia pamidronate was given by hematology Replace electrolytes. Follow-up in nephrology recommendations Follow-up in ID recs Time with Patient: Greater than 30
--- NOTE | 2023-01-17 03:00 | CT ---
EXAM: CT Head Without Intravenous Contrast CLINICAL HISTORY: ITS.REASON CT Reason: altered mental status TECHNIQUE: Axial computed tomography images of the head/brain without intravenous contrast. CTDI is 45.2 mGy and DLP is 1094.7 mGy-cm. This CT exam was performed using one or more of the following dose reduction techniques: automated exposure control, adjustment of the mA and/or kV according to patient size, and/or use of iterative reconstruction technique. COMPARISON: No relevant prior studies available. FINDINGS: Brain: No hemorrhage or mass effect. Ventricles: No hydrocephalus. Bones/joints: Unremarkable. Soft tissues: Unremarkable. Sinuses: No air fluid level. Mastoid air cells: Clear. IMPRESSION: No acute hemorrhage, hydrocephalus, or mass effect. EXAM: CT Cervical Spine Without Intravenous Contrast CLINICAL HISTORY: ITS.REASON CT Reason: altered mental status TECHNIQUE: Axial computed tomography images of the cervical spine without intravenous contrast. CTDI is 16.9 mGy and DLP is 538.6 mGy-cm. This CT exam was performed using one or more of the following dose reduction techniques: automated exposure control, adjustment of the mA and/or kV according to patient size, and/or use of iterative reconstruction technique. COMPARISON: No relevant prior studies available. FINDINGS: Vertebrae: No acute fracture. 5 mm sclerotic lesion left articular process of C4 Discs/spinal canal/neural foramina: No degenerative changes. Soft tissues: No prevertebral swelling. IMPRESSION: No acute fracture or subluxation. 5 mm sclerotic lesion left articular process of C4, nonspecific. Possibly a bone island.
[2023-01-17 05:29] LABS: Anisocytosis Slight; Basophils % (A) 0 %; Eosinophils # (A) 0.1 k/uL (0-0.7); Eosinophils % (A) 5 %; Lymphocytes # (A) 0.2 k/uL (1.0-4.8); Lymphocytes % (A) 14 %; MCH 31.2 pg (25.0-35.0); MCHC 35.1 g/dL (31.0-37.0); MCV 88.7 fL (80.0-100.0); Mean Platelet Volume 9.4; Monocytes # (A) 0.1 k/uL (0-1.0); Monocytes % (A) 6 %; Neutrophils % (A) 73 %; Poikilocytosis Slight; RBC 2.19 m/uL (4.30-5.90)
[2023-01-17 05:52] LABS: ABG Base Excess 6.1 mmol/L; ABG HCO3 29 mmol/L (21-25); ABG Oxygen Saturation 99.9 % (94-97); ABG PCO2 37 mmHg (35-45); ABG PH 7.51 (7.35-7.45); ABG PO2 160 mmHg (83-108); ABG TCO2 30 mmol/L (19-24); Allen Test Performed? Yes
[2023-01-17 05:58] LABS: HGB 6.8 gm/dL (13.0-17.5); WBC 1.4 k/uL (3.8-10.6)
[2023-01-17 05:59] LABS: HCT 19.4 % (39.0-53.0); Platelet Count 55 k/uL (150-450)
[2023-01-17] MEDS: ACYCLOVIR SODIUM 900 MG in SODIUM CHLORIDE 0.9% 250 ML IVPB SCH ×2 (06:21→17:00)
[2023-01-17 06:25] LABS: Calcium 7.1 mg/dL (8.4-10.2); Magnesium 1.9 mg/dL (1.6-2.3); Potassium 3.3 mmol/L (3.5-5.1)
[2023-01-17] MEDS: POTASSIUM BICARBONATE/CIT AC 20 MEQ TABLET.EFF NG-TUBE SCH ×2 (06:43→09:34)
--- NOTE | 2023-01-17 07:14 | XR ---
EXAMINATION TYPE: XR chest 1V portable DATE OF EXAM: 01/17/2023 CLINICAL HISTORY: Difficulty breathing progress study. TECHNIQUE: Single AP portable semiupright view of the chest is obtained. COMPARISON: Chest x-ray from one day earlier and older studies FINDINGS: Stable endotracheal and orogastric tubes. Mild cardiomegaly redemonstrated. New central vascular congestion and bibasilar opacities on current study. There is old posterior right sixth rib fracture redemonstrated. IMPRESSION: Mild cardiomegaly with new central vascular congestion and small bilateral pleural effusi ons consistent with CHF exacerbation. Correlate clinically.
--- NOTE | 2023-01-17 08:37 | P.PN ---
Subjective Progress Note Date: 01/17/23 The patient is 67-year-old white male, well known to our service. He follows manny Browning in the outpatient setting. The patient has a known diagnosis of multiple myeloma. He has been off myeloma specific treatment since early 12/11, due to progression, as well as multiple admissions for fever of unknown origin. He was most recently admitted to the hospital on 12/29/22 with new-onset seizures. He was found to have acute on chronic renal failure. He improved with anorexia medication, as well as hydration. It was felt that the seizures were possibly due to uremia. [facility] Most of the history for this admission was obtained by the patient's was at the bedside. The patient was sleepy and somewhat difficult to arouse. She stated that after lunch yesterday the patient developed nausea and vomiting. After that he was lethargic and had some intermittent tremors. She states that the tremors were not like seizures but more like chills with fever. He remained lethargic and drowsy and did not eat as dinner. Physician was therefore contacted and the patient was asked to come to the ER. In the ER he was found to have a temperature of 102.1 though he was afebrile initially. Chest x-ray showed chronic changes. CT of the abdomen and pelvis did not show any obvious source of infection. His CBC revealed a hemoglobin of 7.1, platelets 68 and WBC of 4. The patient was therefore admitted for further management. The patient himself denies any localizing signs of infection. The patient was initially febrile at time of admission. Since then, the patient has not spiked any temperature. The patient was seen by various consultants including hematology oncology, nephrology, and neurology. His neurologic functions have been essentially progressing and progressively declining. CAT scan of the brain that was was done on 01/12/2023 showed age-related atrophy with chronic small vessel ischemic changes. MRI of the brain showed symmetrical abnormal increased signal in the occipital lobes and posterior parietal lobes in the rodriguez and white matter. Lumbar puncture was attempted today and was not successful. EEG was done on 01/13/2023 showed abnormal diffuse slowing with moderate to severe encephalopathy. No seizures were noted. The patient subsequently became more unresponsive and this afternoon, the patient was in agonal breathing. The patient got transferred to the intensive care unit. The patient was intubated for airway protection. There was some respiratory secretions and the decubitus were suctioned out. Post intubation chest x-ray showed no significant abnormalities. No airspace disease. No pleural effusions. The patient had some abnormal ST the right midlung that was unchanged and this was an expansile right rib lesion. The patient was already receiving Zosyn. I added vancomycin. The patient is already on IV acyclovir. Post intubation, he was placed on propofol at 35 mcg/kg/m. He did develop some hypotension is currently receiving a bolus of normal saline. Blood gases post intubation showed a pH of 7.3 with a pCO2 of 30 and pO2 more than 400. Patient is currently on assist control mode at the rate of 24, tidal volume of 450, FiO2 of 100% and a PEEP of 5. The patient is also in acute kidney injury on top of chronic renal failure. His admission creatinine was at 4.07 and dropped down to 2.9. The patient is pancytopenic due to his myeloma with a white second of 2.1, hemoglobin of 7.9 and platelet count of 27. This is a unit of platelets today On 01/17/2023, the patient remains intubated on a mechanical ventilator. Today he is on propofol running at 30 mcg/kg/m. He only grimaces to deep painful stimulation. He does not follow any commands. Sedation was started to maintain synchrony with a mechanical ventilator. Noted the patient was quite unresponsive yesterday prior to his intubation. Subsequently, CAT scan of the brain was done that showed no acute abnormalities. The patient remains intubated on a mechanical ventilator. Today, he is on assist-control mode at the rate of 14, tidal volume of 450, FiO2 of 40% and a PEEP of 5. Chest x-ray shows ET tube being in a good location. There is lower lobe pulmonary infiltrates bilaterally. Suspect an underlying aspiration pneumonia. Antibiotic coverage is modified the patient is currently on a combination of Zosyn, vancomycin. He is also 96 acyclovir suspecting an underlying encephalitis. Exact cause for this patient is an underlying deterioration has not been adequately established. EEG has shown diffuse slowing and moderate to severe encephalopathy. Unable to do a lumbar puncture. MRI of the brain was nonrevealing. CAT scan of the brain showed negative abnormalities. He has progressive multiple myeloma. There is obvious hematologic abnormalities with pancytopenia. The white cell count is down to 1.4 and there is a further drop in hemoglobin down to 6.8 and his platelet count is at 55. Encountered some limited bleeding from his puncture sites in his troponin lumen catheter and arterial line site. The patient was given platelets yesterday and the bleeding was controlled. He may benefit from a unit of packed RBC in addition. His blood gases from today shows a pH of 7.51 with a pCO2 of 37 and pO2 of 160. BUN is at 9 with a creatinine of 2.7 and a sodium level is at 143. Hemodynamically, the patient is on no pressors. IV fluids are in the form of bicarb infusion at the rate of 80 mL an hour. Nephrology is on the case. Objective - Vital Signs Vital signs: Vital Signs Temp 97.6 F 01/17/23 04:00 Pulse 75 01/17/23 07:00 Resp 14 01/17/23 07:00 BP 118/65 01/17/23 07:00 Pulse Ox 100 01/17/23 07:00 FiO2 40 01/17/23 07:46 Intake & Output 01/16/23 01/17/23 01/17/23 18:59 06:59 18:59 Intake Total 3891 1684.582 80 Output Total 370 1095 60 Balance 3521 589.582 20 Weight 88.451 kg 91.4 kg Intake: Intake, IV Titration 3570 1122.582 80 Amount Acyclovir Sodium 900 mg 250 In Sodium Chloride 0.9% 250 ml @ 268 mls/hr IVPB Q12H [facility]NA[facility] Rx#:[id number] Dextrose 5% in Water 1, 320 880 80 000 ml @ 80 mls/hr IV . [id number] [facility] with Sodium Bicarb (1 Meq/ml) 150 ml Rx#:[id number] Magnesium Sulfate-D5w Pmx 300 1 gm In Dextrose/Water 1 100ml.bag @ 100 mls/hr IVPB Q1H [facility]NA[facility] Rx#: [id number] Piperacillin-Tazobactam 3 100 .375 gm In Sodium Chloride 0.9% 100 ml @ 25 mls/hr IVPB Q8H [facility] Rx#: [id number] Potassium Chloride 20 meq 100 In Water For Injection 1 100ml.bag @ 50 mls/hr IVPB ONCE STA Rx#: [id number] Sodium Chloride 0.9% 2, 2000 000 ml @ 999 mls/hr IV . Q2H1M ONE Rx#:[id number] Vancomycin 1,750 mg In 500 Sodium Chloride 0.9% 500 ml 500 ml @ 167 mls/hr IVPB ONCE ONE Rx#: [id number] propofoL 1,000 mg In 242.582 Empty Bag 1 bag @ 15 MCG/ KG/MIN 7.961 mls/hr IV . [id number] [facility] Rx#:[id number] Blood Product 321 562 Ffp 24 Pher Acda Unit 221 [id number] Platelet Pheresis Pas 321 Psoralen Unit [id number] Platelet Pheresis Pas 341 Psoralen Unit [id number] Output: Urine 370 1095 60 Other: Voiding Method Indwelling Catheter Indwelling Catheter # Bowel Movements 1 ABP, PAP, CO, CI - Last Documented Arterial Blood Pressure 140/54 - Exam Unresponsive, currently on sedation with propofol, intubated on a mechanical ventilator Head exam was generally normal. There was no scleral icterus or corneal arcus. Mucous membranes were moist. Neck was supple and without jugular venous distension, thyromegaly, or carotid bruits. Carotids were easily palpable bilaterally. There was no adenopathy. Lungs were clear to auscultation and percussion, and with normal diaphragmatic excursion. No wheezes or rales were noted. Cardiac exam revealed the PMI to be normally situated and sized. The rhythm was regular and no extrasystoles were noted during several minutes of auscultation. The first and second heart sounds were normal and physiologic splitting of the second heart sound was noted. There were no murmurs, rubs, clicks, or gallops. Abdominal exam revealed normal bowel sounds. The abdomen was soft, non-tender, and without masses, organomegaly, or appreciable enlargement of the abdominal aorta. Examination of the extremities revealed easily palpable radial, femoral and pedal pulses. There was no cyanosis, clubbing or edema. Neurologically the patient is around 3 mm pupils, sluggishly reactive to light. Positive cough. Positive gag. Not responsive to any verbal or painful stimulation. No Babinski. No clonus. Reflexes are symmetrical. Skin, no evidence of any active bleeding at this triple-lumen catheter and arterial line site. There was some minimal oozing yesterday. The bleeding is not active for today. There may be some limited slow ongoing ooz - Labs CBC & Chem 7: 01/17/23 04:38 01/17/23 04:38 Labs: Abnormal Lab Results - Last 24 Hours (Table) 01/16/23 01/16/23 01/16/23 Range/Units 05:56 05:56 14:39 WBC 2.14 L (4.50-10.00) X 10*3/uL RBC 2.64 L (4.40-5.60) X 10*6/uL Hgb 7.9 L (13.0-17.0) g/dL Hct 23.7 L (39.6-50.0) % RDW 17.7 H (11.5-14.5) % Plt Count 27 L (140-440) X 10*3/uL Plt Count Comment A MPV 8.7 L (9.5-12.2) fL Metamyelocytes % 4 H (0-0) % Neutrophils # (1.3-7.7) k/uL Neutrophils # (Manual) 1.48 L (2.00-8.90) X 10*3/uL Lymphocytes # (1.0-4.8) k/uL Lymphocytes # (Manual) 0.34 L (0.90-5.00) X 10*3/uL Monocytes # (Manual) 0.13 L (0.20-1.00) X 10*3/uL PT (9.0-12.0) sec INR (<1.2) APTT (22.0-30.0) sec ABG pH (7.35-7.45) ABG pCO2 (35-45) mmHg ABG pO2 71 L (83-108) mmHg ABG HCO3 26 H (21-25) mmol/L ABG Total CO2 28 H (19-24) mmol/L ABG O2 Saturation (94-97) % Potassium 3.0 L (3.5-5.5) mmol/L Chloride (98-107) mmol/L Creatinine 2.9 H (0.6-1.5) mg/dL Est GFR (CKD-EPI)AfAm 24.4 L (60.0-200.0) Est GFR (CKD-EPI)NonAf 21.1 L (60.0-200.0) BUN/Creatinine Ratio 3.41 L (12.00-20.00) Ratio Glucose (74-99) mg/dL Calcium 8.4 L (8.7-10.3) mg/dL Magnesium (1.6-2.3) mg/dL AST 76 H (14-35) U/L C-Reactive Protein 7.70 H (0.00-0.80) mg/dL Total Protein 9.3 H (6.2-8.2) g/dL Albumin 1.7 L (3.8-4.9) g/dL Globulin 7.6 H (1.6-3.3) g/dL Albumin/Globulin Ratio 0.22 L (1.60-3.17) g/dL 01/16/23 01/16/23 01/16/23 Range/Units 15:51 16:00 16:00 WBC 1.5 L (4.50-10.00) X 10*3/uL RBC 2.46 L (4.40-5.60) X 10*6/uL Hgb 7.6 L (13.0-17.0) g/dL Hct 21.7 L (39.6-50.0) % RDW 17.9 H (11.5-14.5) % Plt Count 38 L (140-440) X 10*3/uL Plt Count Comment MPV (9.5-12.2) fL Metamyelocytes % (0-0) % Neutrophils # 0.9 L (1.3-7.7) k/uL Neutrophils # (Manual) (2.00-8.90) X 10*3/uL Lymphocytes # 0.3 L (1.0-4.8) k/uL Lymphocytes # (Manual) (0.90-5.00) X 10*3/uL Monocytes # (Manual) (0.20-1.00) X 10*3/uL PT (9.0-12.0) sec INR (<1.2) APTT (22.0-30.0) sec ABG pH 7.53 H (7.35-7.45) ABG pCO2 30 L (35-45) mmHg ABG pO2 >400 H (83-108) mmHg ABG HCO3 (21-25) mmol/L ABG Total CO2 26 H (19-24) mmol/L ABG O2 Saturation 100.0 H (94-97) % Potassium 3.1 L (3.5-5.5) mmol/L Chloride 110 H (98-107) mmol/L Creatinine 2.88 H (0.6-1.5) mg/dL Est GFR (CKD-EPI)AfAm (60.0-200.0) Est GFR (CKD-EPI)NonAf (60.0-200.0) BUN/Creatinine Ratio (12.00-20.00) Ratio Glucose 101 H (74-99) mg/dL Calcium 7.6 L (8.7-10.3) mg/dL Magnesium 1.4 L (1.6-2.3) mg/dL AST (14-35) U/L C-Reactive Protein (0.00-0.80) mg/dL Total Protein (6.2-8.2) g/dL Albumin (3.8-4.9) g/dL Globulin (1.6-3.3) g/dL Albumin/Globulin Ratio (1.60-3.17) g/dL 01/16/23 01/16/23 01/17/23 Range/Units 16:00 20:50 04:38 WBC 1.4 L* (4.50-10.00) X 10*3/uL RBC 2.19 L (4.40-5.60) X 10*6/uL Hgb 6.8 L* (13.0-17.0) g/dL Hct 19.4 L* (39.6-50.0) % RDW 18.0 H (11.5-14.5) % Plt Count 55 L (140-440) X 10*3/uL Plt Count Comment MPV (9.5-12.2) fL Metamyelocytes % (0-0) % Neutrophils # 1.0 L (1.3-7.7) k/uL Neutrophils # (Manual) (2.00-8.90) X 10*3/uL Lymphocytes # 0.2 L (1.0-4.8) k/uL Lymphocytes # (Manual) (0.90-5.00) X 10*3/uL Monocytes # (Manual) (0.20-1.00) X 10*3/uL PT 12.1 H (9.0-12.0) sec INR 1.2 H (<1.2) APTT 33.1 H 32.7 H (22.0-30.0) sec ABG pH (7.35-7.45) ABG pCO2 (35-45) mmHg ABG pO2 (83-108) mmHg ABG HCO3 (21-25) mmol/L ABG Total CO2 (19-24) mmol/L ABG O2 Saturation (94-97) % Potassium (3.5-5.5) mmol/L Chloride (98-107) mmol/L Creatinine (0.6-1.5) mg/dL Est GFR (CKD-EPI)AfAm (60.0-200.0) Est GFR (CKD-EPI)NonAf (60.0-200.0) BUN/Creatinine Ratio (12.00-20.00) Ratio Glucose (74-99) mg/dL Calcium (8.7-10.3) mg/dL Magnesium (1.6-2.3) mg/dL AST (14-35) U/L C-Reactive Protein (0.00-0.80) mg/dL Total Protein (6.2-8.2) g/dL Albumin (3.8-4.9) g/dL Globulin (1.6-3.3) g/dL Albumin/Globulin Ratio (1.60-3.17) g/dL 01/17/23 01/17/23 Range/Units 04:38 05:45 WBC (4.50-10.00) X 10*3/uL RBC (4.40-5.60) X 10*6/uL Hgb (13.0-17.0) g/dL Hct (39.6-50.0) % RDW (11.5-14.5) % Plt Count (140-440) X 10*3/uL Plt Count Comment MPV (9.5-12.2) fL Metamyelocytes % (0-0) % Neutrophils # (1.3-7.7) k/uL Neutrophils # (Manual) (2.00-8.90) X 10*3/uL Lymphocytes # (1.0-4.8) k/uL Lymphocytes # (Manual) (0.90-5.00) X 10*3/uL Monocytes # (Manual) (0.20-1.00) X 10*3/uL PT (9.0-12.0) sec INR (<1.2) APTT (22.0-30.0) sec ABG pH 7.51 H (7.35-7.45) ABG pCO2 (35-45) mmHg ABG pO2 160 H (83-108) mmHg ABG HCO3 29 H (21-25) mmol/L ABG Total CO2 30 H (19-24) mmol/L ABG O2 Saturation 99.9 H (94-97) % Potassium 3.3 L (3.5-5.5) mmol/L Chloride 109 H (98-107) mmol/L Creatinine 2.71 H (0.6-1.5) mg/dL Est GFR (CKD-EPI)AfAm (60.0-200.0) Est GFR (CKD-EPI)NonAf (60.0-200.0) BUN/Creatinine Ratio (12.00-20.00) Ratio Glucose (74-99) mg/dL Calcium 7.1 L (8.7-10.3) mg/dL Magnesium (1.6-2.3) mg/dL AST (14-35) U/L C-Reactive Protein (0.00-0.80) mg/dL Total Protein (6.2-8.2) g/dL Albumin (3.8-4.9) g/dL Globulin (1.6-3.3) g/dL Albumin/Globulin Ratio (1.60-3.17) g/dL Microbiology - Last 24 Hours (Table) 01/16/23 15:23 Sputum Culture - Preliminary Sputum Assessment and Plan Plan: Altered mentation with progressive worsening in her level of consciousness and the patient came into the ICU, unresponsive. Exact cause is not clear. Rule out underlying encephalitis. Rule out metabolic encephalopathy. CAT scan of the brain was done yesterday and showed no acute abnormalities. Would like to get more neurology input regarding his altered mentation. Currently he is on sedation to maintain synchrony with a mechanical ventilator. We'll try to give him a sedation holiday. Acute respiratory failure, hypoxic, and the patient was intubated for airway protection. Post intubation, the oxygenation improved and the chest x-ray showed development of lower lobe pulmonary infiltrates bilaterally, consider as piration pneumonia and the patient is currently on Zosyn and vancomycin History of seizures, currently inactive and stable and the patient is currently on accommodation of Vimpat Fever, recovered History of posterior reversible encephalopathy syndrome on MRI based on the one that was done on 12/29/2022 and subsequent improvement on follow-up MRI imaging. Multiple myeloma,noted disease progression on Kyprolis/Pomalyst/dexamethasone. Has been seen by Dr. Gambino of [facility] in [place] to review CAR-T treatment on 01/07/2023 the Plan was to undergo salvage treatment for additional disease control prior to undergoing CAR-T Pancytopenia secondary to above Chronic kidney disease secondary to multiple myeloma, the patient is known to have chronic stage III B kidney disease Acute on top of chronic kidney insufficiency secondary myeloma, improving Previous history of pulmonary embolism Coronary artery disease T12 fracture and multiple vertebral fracture due to multiple myeloma Hyperlipidemia Plan Continue vent support No vent changes for today Continue same antibiotic coverage Propofol drip for sedation and syncope with a mechanical ventilator. Give the patient has sedation holiday Obtain sputum Gram stain and culture and blood cultures CAT scan of the brain was repeated and nothing acute Continue Zosyn and acyclovir and vancomycin Hemodynamically stable on no pressors Continue enteral feeding for nutritional support May need to repeat the lumbar puncture attempt, a discussion needs to be done with the family and with neurology and hematology oncology regarding his impaired mentation and the exact causes. To me, is not clear why the patient is altered mentally neurologically and I cannot explain his progressive neurologic and physical decline other than progression his multiple myeloma and possibly some HUNTER involvement. As such, ideally, a lumbar puncture will be of value here nevertheless, the patient has significant leukocytopenia the procedure itself was complicated and interventional radiology was unable to obtain the lumbar puncture under fluoroscopy guidance. We'll discuss this with anesthesia and neurology. Continue Keppra on Vimpat Neurologic immediately consulted Nephrology consult appreciated Hematology oncology consult appreciated Given units of packed RBC We will prognosis and will continue to follow. Symbicort prognosis based on the above-mentioned. We'll continue to follow, critical care evaluation >30 min Time with Patient: Greater than 30
[2023-01-17] MEDS: PIPERACILLIN-TAZOBACTAM 3.375 GM in SODIUM CHLORIDE 0.9% 100 ML IVPB SCH ×2 (09:33→15:36)
[2023-01-17] MEDS: SODIUM BICARBONATE TAB 650 MG TAB PO SCH ×3 (09:34→21:50)
[2023-01-17] MEDS: CHOLECALCIFEROL 25 MCG (1000 IU) TABLET PO SCH (09:34)
[2023-01-17] MEDS: CHLORHEXIDINE GLUCONATE 15 ML CUP MUCOUS MEM SCH ×2 (09:34→21:50)
[2023-01-17] MEDS: levETIRAcetam IV 500 MG in SODIUM CHLORIDE 0.9% 100 ML IVPB SCH ×2 (09:35→20:08)
[2023-01-17] MEDS: LACOSAMIDE IV 50 MG in SODIUM CHLORIDE 0.9% 50 ML IVPB SCH ×2 (10:10→21:35)
--- NOTE | 2023-01-17 12:34 | P.PN ---
Subjective Progress Note Date: 01/17/23 Patient seen at bedside and it appears the patient the was taken down for lumbar puncture by our was unsuccessful. She was having worsening of respiratory as a result she was intubated and ventilated was taken to the ICU. He is on IV propofol 15mcg/kg/min. Objective - Vital Signs Vital signs: Vital Signs Temp 97.5 F L 01/17/23 08:00 Pulse 77 01/17/23 09:00 Resp 14 01/17/23 09:00 BP 118/65 01/17/23 07:00 Pulse Ox 100 01/17/23 09:00 FiO2 40 01/17/23 11:41 Intake & Output 01/16/23 01/17/23 01/17/23 18:59 06:59 18:59 Intake Total 3891 1684.582 659.311 Output Total 370 1095 335 Balance 3521 589.582 324.311 Weight 88.451 kg 91.4 kg 91.4 kg Intake: IV 470 0.9 Sodium Chloride 60 Dextrose 5% in Water 1, 160 000 ml @ 80 mls/hr IV . [id number] [facility] with Sodium Bicarb (1 Meq/ml) 150 ml Rx#:[id number] Lacosamide IV 50 mg In 50 Sodium Chloride 0.9% 50 ml @ 100 mls/hr IVPB BID [facility] Rx#:[id number] Piperacillin-Tazobactam 3 100 .375 gm In Sodium Chloride 0.9% 100 ml @ 25 mls/hr IVPB Q8H [facility] Rx#: [id number] levETIRAcetam IV 500 mg 100 In Sodium Chloride 0.9% 100 ml @ 400 mls/hr IVPB Q12HR [facility] Rx#:[id number] Intake, IV Titration 3570 1122.582 129.311 Amount Acyclovir Sodium 900 mg 250 In Sodium Chloride 0.9% 250 ml @ 268 mls/hr IVPB Q12H [facility] Rx#:[id number] Dextrose 5% in Water 1, 320 880 80 000 ml @ 80 mls/hr IV . [id number] [facility] with Sodium Bicarb (1 Meq/ml) 150 ml Rx#:[id number] Magnesium Sulfate-D5w Pmx 300 1 gm In Dextrose/Water 1 100ml.bag @ 100 mls/hr IVPB Q1H [facility] Rx#: [id number] Piperacillin-Tazobactam 3 100 .375 gm In Sodium Chloride 0.9% 100 ml @ 25 mls/hr IVPB Q8H [facility] Rx#: [id number] Potassium Chloride 20 meq 100 In Water For Injection 1 100ml.bag @ 50 mls/hr IVPB ONCE [facility] Rx#: [id number] Sodium Chloride 0.9% 2, 2000 000 ml @ 999 mls/hr IV . Q2H1M [facility] Rx#:[id number] Vancomycin 1,750 mg In 500 Sodium Chloride 0.9% 500 ml 500 ml @ 167 mls/hr IVPB ONCE [facility] Rx#: [id number] propofoL 1,000 mg In 242.582 49.311 Empty Bag 1 bag @ 15 MCG/ KG/MIN 7.961 mls/hr IV . [id number] [facility] Rx#:[id number] Tube Feeding 30 Blood Product 321 562 0 Unit 0 Ffp 24 Pher Acda Unit 221 [id number] Platelet Pheresis Pas 321 Psoralen Unit [id number] Platelet Pheresis Pas 341 Psoralen Unit [id number] Other 30 Output: Urine 370 1095 335 Other: Voiding Method Indwelling Catheter Indwelling Catheter Indwelling Catheter # Bowel Movements 1 ABP, PAP, CO, CI - Last Documented Arterial Blood Pressure 141/57 - Exam GENERAL: The patient is lying in bed and does not appear in acute distress. LUNG: Intubated on ventilator. NEUROLOGICAL: Limited because of his condition. Is on IV Propofol 15mcg/kg/min. Higher mental function: The patient is stupor. Not following commands or verbalizing. Cranial nerves: I had to manually open his eyes and primary gaze is midline. Pupils are round, equal and reactive to light. No facial weakenss. Is breathing over the vent. Motor: The strength is unable to assess. No spontaneous movement. Cerebellum: Unable to assess. Sensation: Unable to assess. Some of the workup during this hospital visit consisted of: On initial presentation the patient had a fever of 102.1 max currently it's the resolved Hemoglobin was as low as a 6.2 and currently 3.4 His creatinine is 4.07 currently is 2.7 glucose had episodes as low as 65 currently 71. Then yesterday was low as 51. Ionized calcium is 6.0 He could've the head ordered by the primary team is reported as age-related atrophy and chronic small vessel ischemic change without acute intracranial process seen at this time. I personally reviewed the CT and I agree there is no acute subacute ischemia, there is no bleed. MR the brain is reported as symmetrical abnormal increased signal in the occipital lobe and posterior parietal lobe and the rodriguez and white matter. This is predominantly white matter abnormality and could relate to microvascular ischemia. I do not suspect demyelinating disease. I personally reviewed the MRI and the patient has hyperintensity on the flare over the occipital parietal but must drastically improved compared to 12/30/[address] of the head is reported as no acute hemorrhage, hydrocephalus or mass effect. CT cervical spine is reported as no acute fracture or subluxation. 5 mm sclerotic lesion left articular process of C4, nonspecific. Possibly a bone island. - Labs CBC & Chem 7: 01/17/23 04:38 01/17/23 04:38 Labs: Abnormal Lab Results - Last 24 Hours (Table) 01/15/23 01/16/23 01/16/23 Range/Units 11:52 05:56 14:39 WBC (3.8-10.6) k/uL RBC (4.30-5.90) m/uL Hgb (13.0-17.5) gm/dL Hct (39.0-53.0) % RDW (11.5-15.5) % Plt Count (150-450) k/uL Plt Count Comment A Metamyelocytes % 4 H (0-0) % Neutrophils # (1.3-7.7) k/uL Neutrophils # (Manual) 1.48 L (2.00-8.90) X 10*3/uL Lymphocytes # (1.0-4.8) k/uL Lymphocytes # (Manual) 0.34 L (0.90-5.00) X 10*3/uL Monocytes # (Manual) 0.13 L (0.20-1.00) X 10*3/uL PT (9.0-12.0) sec INR (<1.2) APTT (22.0-30.0) sec ABG pH (7.35-7.45) ABG pCO2 (35-45) mmHg ABG pO2 71 L (83-108) mmHg ABG HCO3 26 H (21-25) mmol/L ABG Total CO2 28 H (19-24) mmol/L ABG O2 Saturation (94-97) % Potassium (3.5-5.1) mmol/L Chloride (98-107) mmol/L Creatinine (0.66-1.25) mg/dL Glucose (74-99) mg/dL Calcium (8.4-10.2) mg/dL Magnesium (1.6-2.3) mg/dL Crossmatch See Detail 01/16/23 01/16/23 01/16/23 Range/Units 15:51 16:00 16:00 WBC 1.5 L (3.8-10.6) k/uL RBC 2.46 L (4.30-5.90) m/uL Hgb 7.6 L (13.0-17.5) gm/dL Hct 21.7 L (39.0-53.0) % RDW 17.9 H (11.5-15.5) % Plt Count 38 L (150-450) k/uL Plt Count Comment Metamyelocytes % (0-0) % Neutrophils # 0.9 L (1.3-7.7) k/uL Neutrophils # (Manual) (2.00-8.90) X 10*3/uL Lymphocytes # 0.3 L (1.0-4.8) k/uL Lymphocytes # (Manual) (0.90-5.00) X 10*3/uL Monocytes # (Manual) (0.20-1.00) X 10*3/uL PT (9.0-12.0) sec INR (<1.2) APTT (22.0-30.0) sec ABG pH 7.53 H (7.35-7.45) ABG pCO2 30 L (35-45) mmHg ABG pO2 >400 H (83-108) mmHg ABG HCO3 (21-25) mmol/L ABG Total CO2 26 H (19-24) mmol/L ABG O2 Saturation 100.0 H (94-97) % Potassium 3.1 L (3.5-5.1) mmol/L Chloride 110 H (98-107) mmol/L Creatinine 2.88 H (0.66-1.25) mg/dL Glucose 101 H (74-99) mg/dL Calcium 7.6 L (8.4-10.2) mg/dL Magnesium 1.4 L (1.6-2.3) mg/dL Crossmatch 01/16/23 01/16/23 01/17/23 Range/Units 16:00 20:50 04:38 WBC 1.4 L* (3.8-10.6) k/uL RBC 2.19 L (4.30-5.90) m/uL Hgb 6.8 L* (13.0-17.5) gm/dL Hct 19.4 L* (39.0-53.0) % RDW 18.0 H (11.5-15.5) % Plt Count 55 L (150-450) k/uL Plt Count Comment Metamyelocytes % (0-0) % Neutrophils # 1.0 L (1.3-7.7) k/uL Neutrophils # (Manual) (2.00-8.90) X 10*3/uL Lymphocytes # 0.2 L (1.0-4.8) k/uL Lymphocytes # (Manual) (0.90-5.00) X 10*3/uL Monocytes # (Manual) (0.20-1.00) X 10*3/uL PT 12.1 H (9.0-12.0) sec INR 1.2 H (<1.2) APTT 33.1 H 32.7 H (22.0-30.0) sec ABG pH (7.35-7.45) ABG pCO2 (35-45) mmHg ABG pO2 (83-108) mmHg ABG HCO3 (21-25) mmol/L ABG Total CO2 (19-24) mmol/L ABG O2 Saturation (94-97) % Potassium (3.5-5.1) mmol/L Chloride (98-107) mmol/L Creatinine (0.66-1.25) mg/dL Glucose (74-99) mg/dL Calcium (8.4-10.2) mg/dL Magnesium (1.6-2.3) mg/dL Crossmatch 01/17/23 01/17/23 Range/Units 04:38 05:45 WBC (3.8-10.6) k/uL RBC (4.30-5.90) m/uL Hgb (13.0-17.5) gm/dL Hct (39.0-53.0) % RDW (11.5-15.5) % Plt Count (150-450) k/uL Plt Count Comment Metamyelocytes % (0-0) % Neutrophils # (1.3-7.7) k/uL Neutrophils # (Manual) (2.00-8.90) X 10*3/uL Lymphocytes # (1.0-4.8) k/uL Lymphocytes # (Manual) (0.90-5.00) X 10*3/uL Monocytes # (Manual) (0.20-1.00) X 10*3/uL PT (9.0-12.0) sec INR (<1.2) APTT (22.0-30.0) sec ABG pH 7.51 H (7.35-7.45) ABG pCO2 (35-45) mmHg ABG pO2 160 H (83-108) mmHg ABG HCO3 29 H (21-25) mmol/L ABG Total CO2 30 H (19-24) mmol/L ABG O2 Saturation 99.9 H (94-97) % Potassium 3.3 L (3.5-5.1) mmol/L Chloride 109 H (98-107) mmol/L Creatinine 2.71 H (0.66-1.25) mg/dL Glucose (74-99) mg/dL Calcium 7.1 L (8.4-10.2) mg/dL Magnesium (1.6-2.3) mg/dL Crossmatch Microbiology - Last 24 Hours (Table) 01/16/23 15:23 Gram Stain - Preliminary Sputum Sputum Culture - Preliminary Assessment and Plan Assessment: Also mental status seems due to metabolic encephalopathy. Has fever of unknown origin (fever was only at presentation and that resolved). Rule out ?encephalitis. Also has hypogylecmia (as low as 50's), elevated ionized calcium--glucose improved. History of seizures according to the he has subtle jerking of upper extremities (in past had left facial twitching and myoclonic jerks) History of Posterior reversible encephalopathy syndrome on MRI of the brain of 12/29/2022 admission and improving on this current MRI. Acute on chronic kidney insufficiency History of multiple myeloma and had chemotherapy Pancytopenia History of pulmonary embolism on Eliquis History of a T12 fracture with multiple vertebral fracture due to multiple myeloma History of coronary artery disease Dyslipidemia Plan: He is on Keppra Keppra to 500mg bid and added Vimpat 50 mg one tablet twice a day (started on 01/12/23) especially since according to the he has subtle jerks of the upper extremity. Routine EEG: Is abnormal. The background slowing suggestive of moderate to severe encephalopathy. Otherwise there is no focal slowing, epileptiform discharges or seizure on the EEG. Ordered repeat EEG. ID team is on board for the fever. Lumbar puncture is unsuccessful. Is on Acylovir, Acylovir and Zosyn. I.D. is on board. We'll defer the rest of the medical measure the primary team The plan is discussed with patient's nurse. Time with Patient: Less than 30
[2023-01-17] MEDS ORDERED: VANCOMYCIN 1,750 MG in SODIUM CHLORIDE 0.9% 500 ML 500 ML IVPB ONE (13:00)
[2023-01-17 13:55] LABS: Glucose,Whole Blood 91 mg/dL (70-110)
--- NOTE | 2023-01-17 14:39 | P.PN ---
Subjective Progress Note Date: 01/17/23 Follow-up for acute kidney injury. Urine output of 1.4 L in the last 24 hours. Objective - Vital Signs Vital signs: Vital Signs Temp 98.1 F 01/17/23 14:32 Pulse 87 01/17/23 14:32 Resp 14 01/17/23 14:32 BP 159/62 01/17/23 14:32 Pulse Ox 98 01/17/23 14:32 FiO2 40 01/17/23 14:00 Intake & Output 01/16/23 01/17/23 01/17/23 18:59 06:59 18:59 Intake Total 3891 4462.954 9927.607 Output Total 370 1095 650 Balance 3521 589.582 427.607 Weight 88.451 kg 91.4 kg 91.4 kg Intake: IV 526 0.9 Sodium Chloride 110 Dextrose 5% in Water 1, 160 000 ml @ 80 mls/hr IV . [id number] [facility] with Sodium Bicarb (1 Meq/ml) 150 ml Rx#:[id number] Lacosamide IV 50 mg In 50 Sodium Chloride 0.9% 50 ml @ 100 mls/hr IVPB BID [facility] Rx#:[id number] Piperacillin-Tazobactam 3 100 .375 gm In Sodium Chloride 0.9% 100 ml @ 25 mls/hr IVPB Q8H [facility] Rx#: [id number] Pressure Bag (0.9 Sodium 6 Chloride) levETIRAcetam IV 500 mg 100 In Sodium Chloride 0.9% 100 ml @ 400 mls/hr IVPB Q12HR [facility] Rx#:[id number] Intake, IV Titration 3570 1122.582 141.607 Amount Acyclovir Sodium 900 mg 250 In Sodium Chloride 0.9% 250 ml @ 268 mls/hr IVPB Q12H [facility] Rx#:[id number] Dextrose 5% in Water 1, 320 880 80 000 ml @ 80 mls/hr IV . [id number] [facility] with Sodium Bicarb (1 Meq/ml) 150 ml Rx#:[id number] Magnesium Sulfate-D5w Pmx 300 1 gm In Dextrose/Water 1 100ml.bag @ 100 mls/hr IVPB Q1H [facility] Rx#: [id number] Piperacillin-Tazobactam 3 100 .375 gm In Sodium Chloride 0.9% 100 ml @ 25 mls/hr IVPB Q8H [facility] Rx#: [id number] Potassium Chloride 20 meq 100 In Water For Injection 1 100ml.bag @ 50 mls/hr IVPB ONCE ST[facility] Rx#: [id number] Sodium Chloride 0.9% 2, 2000 000 ml @ 999 mls/hr IV . Q2H1M [facility] Rx#:[id number] Vancomycin 1,750 mg In 500 Sodium Chloride 0.9% 500 ml 500 ml @ 167 mls/hr IVPB ONCE [facility] Rx#: [id number] propofoL 1,000 mg In 242.582 61.607 Empty Bag 1 bag @ 15 MCG/ KG/MIN 7.961 mls/hr IV . [id number] [facility] Rx#:[id number] Tube Feeding 70 Blood Product 321 562 310 Unit 310 Ffp 24 Pher Acda Unit 221 [id number] Platelet Pheresis Pas 321 Psoralen Unit [id number] Platelet Pheresis Pas 341 Psoralen Unit [id number] Other 30 Output: Urine 370 1095 650 Other: Voiding Method Indwelling Catheter Indwelling Catheter Indwelling Catheter # Bowel Movements 1 ABP, PAP, CO, CI - Last Documented Arterial Blood Pressure 153/61 - Exam No acute distress, on ventilator. S1-S2 heard Decreased breath No edema - Labs CBC & Chem 7: 01/17/23 04:38 01/17/23 04:38 Labs: Abnormal Lab Results - Last 24 Hours (Table) 01/15/23 01/16/23 01/16/23 Range/Units 11:52 14:39 15:51 WBC (3.8-10.6) k/uL RBC (4.30-5.90) m/uL Hgb (13.0-17.5) gm/dL Hct (39.0-53.0) % RDW (11.5-15.5) % Plt Count (150-450) k/uL Neutrophils # (1.3-7.7) k/uL Lymphocytes # (1.0-4.8) k/uL PT (9.0-12.0) sec INR (<1.2) APTT (22.0-30.0) sec ABG pH 7.53 H (7.35-7.45) ABG pCO2 30 L (35-45) mmHg ABG pO2 71 L >400 H (83-108) mmHg ABG HCO3 26 H (21-25) mmol/L ABG Total CO2 28 H 26 H (19-24) mmol/L ABG O2 Saturation 100.0 H (94-97) % Potassium (3.5-5.1) mmol/L Chloride (98-107) mmol/L Creatinine (0.66-1.25) mg/dL Glucose (74-99) mg/dL Calcium (8.4-10.2) mg/dL Magnesium (1.6-2.3) mg/dL Crossmatch See Detail 01/16/23 01/16/23 01/16/23 Range/Units 16:00 16:00 16:00 WBC 1.5 L (3.8-10.6) k/uL RBC 2.46 L (4.30-5.90) m/uL Hgb 7.6 L (13.0-17.5) gm/dL Hct 21.7 L (39.0-53.0) % RDW 17.9 H (11.5-15.5) % Plt Count 38 L (150-450) k/uL Neutrophils # 0.9 L (1.3-7.7) k/uL Lymphocytes # 0.3 L (1.0-4.8) k/uL PT 12.1 H (9.0-12.0) sec INR 1.2 H (<1.2) APTT 33.1 H (22.0-30.0) sec ABG pH (7.35-7.45) ABG pCO2 (35-45) mmHg ABG pO2 (83-108) mmHg ABG HCO3 (21-25) mmol/L ABG Total CO2 (19-24) mmol/L ABG O2 Saturation (94-97) % Potassium 3.1 L (3.5-5.1) mmol/L Chloride 110 H (98-107) mmol/L Creatinine 2.88 H (0.66-1.25) mg/dL Glucose 101 H (74-99) mg/dL Calcium 7.6 L (8.4-10.2) mg/dL Magnesium 1.4 L (1.6-2.3) mg/dL Crossmatch 01/16/23 01/17/23 01/17/23 Range/Units 20:50 04:38 04:38 WBC 1.4 L* (3.8-10.6) k/uL RBC 2.19 L (4.30-5.90) m/uL Hgb 6.8 L* (13.0-17.5) gm/dL Hct 19.4 L* (39.0-53.0) % RDW 18.0 H (11.5-15.5) % Plt Count 55 L (150-450) k/uL Neutrophils # 1.0 L (1.3-7.7) k/uL Lymphocytes # 0.2 L (1.0-4.8) k/uL PT (9.0-12.0) sec INR (<1.2) APTT 32.7 H (22.0-30.0) sec ABG pH (7.35-7.45) ABG pCO2 (35-45) mmHg ABG pO2 (83-108) mmHg ABG HCO3 (21-25) mmol/L ABG Total CO2 (19-24) mmol/L ABG O2 Saturation (94-97) % Potassium 3.3 L (3.5-5.1) mmol/L Chloride 109 H (98-107) mmol/L Creatinine 2.71 H (0.66-1.25) mg/dL Glucose (74-99) mg/dL Calcium 7.1 L (8.4-10.2) mg/dL Magnesium (1.6-2.3) mg/dL Crossmatch 01/17/23 Range/Units 05:45 WBC (3.8-10.6) k/uL RBC (4.30-5.90) m/uL Hgb (13.0-17.5) gm/dL Hct (39.0-53.0) % RDW (11.5-15.5) % Plt Count (150-450) k/uL Neutrophils # (1.3-7.7) k/uL Lymphocytes # (1.0-4.8) k/uL PT (9.0-12.0) sec INR (<1.2) APTT (22.0-30.0) sec ABG pH 7.51 H (7.35-7.45) ABG pCO2 (35-45) mmHg ABG pO2 160 H (83-108) mmHg ABG HCO3 29 H (21-25) mmol/L ABG Total CO2 30 H (19-24) mmol/L ABG O2 Saturation 99.9 H (94-97) % Potassium (3.5-5.1) mmol/L Chloride (98-107) mmol/L Creatinine (0.66-1.25) mg/dL Glucose (74-99) mg/dL Calcium (8.4-10.2) mg/dL Magnesium (1.6-2.3) mg/dL Crossmatch Microbiology - Last 24 Hours (Table) 01/16/23 15:23 Gram Stain - Preliminary Sputum Sputum Culture - Preliminary Assessment and Plan Assessment: #1 acute kidney injury suspect prerenal physiology. #2 chronic kidney disease stage IV, baseline creatinine 2.3-2.4 MG per DL. #3 progressive multiple myeloma with bony metastases #4 ventilator-dependent respiratory failure #5 anemia multifactorial Plan: #1 bicarb drip was stopped this morning, agree with, as CO2 more than 24 #2 renal function stable. Hold IV fluids. #3 ICU care #4 daily labs.
[2023-01-17] MEDS: DEXTROSE 5% IN WATER 1,000 ML with SODIUM BICARB (1 MEQ/ML) 150 ML IV SCH (15:35)
[2023-01-17 15:46] LABS: Anisocytosis Slight; HCT 24.3 % (39.0-53.0); MCH 29.8 pg (25.0-35.0); MCV 87.6 fL (80.0-100.0); Poikilocytosis Slight; RBC 2.78 m/uL (4.30-5.90); RDW 17.9 % (11.5-15.5)
[2023-01-17 15:48] LABS: HGB 8.3 gm/dL (13.0-17.5)
[2023-01-17 15:49] LABS: Platelet Count 51 k/uL (150-450)
--- NOTE | 2023-01-17 15:51 | P.PN ---
Subjective Progress Note Date: 01/17/23 Principal diagnosis: Fever Patient is a 67-year-old male with a past medical history significant for multiple myeloma on chemotherapy patient also history of hyperlipidemia coronary disease PE and correction resident patient was brought into the ER for evaluation of fever , Patient also have an episode of vomiting and persistent in the left lower quadrant.Patient did have worsening of his respiratory status ended up getting intubated and the patient was transferred to the ICU 01/16/2023. On today's evaluation that is 01/17/2023 the patient remains to be afebrile, the patient is currently hemodynamically stable not requiring any pressor support and no significant purulent secretion through the ET has been reported patient is currently on 40% FiO2, no other changes reported by the at the bedside Objective - Vital Signs Vital signs: Vital Signs Temp 98.1 F 01/17/23 14:32 Pulse 87 01/17/23 14:32 Resp 14 01/17/23 14:32 BP 159/62 01/17/23 14:32 Pulse Ox 98 01/17/23 14:32 FiO2 40 01/17/23 14:00 Intake & Output 01/16/23 01/17/23 01/17/23 18:59 06:59 18:59 Intake Total 3891 1684.582 767.607 Output Total 370 1095 650 Balance 3521 589.582 117.607 Weight 88.451 kg 91.4 kg 91.4 kg Intake: IV 526 0.9 Sodium Chloride 110 Dextrose 5% in Water 1, 160 000 ml @ 80 mls/hr IV . [id number] [facility] with Sodium Bicarb (1 Meq/ml) 150 ml Rx#:[id number] Lacosamide IV 50 mg In 50 Sodium Chloride 0.9% 50 ml @ 100 mls/hr IVPB BID [facility] Rx#:[id number] Piperacillin-Tazobactam 3 100 .375 gm In Sodium Chloride 0.9% 100 ml @ 25 mls/hr IVPB Q8H [facility] Rx#: [id number] Pressure Bag (0.9 Sodium 6 Chloride) levETIRAcetam IV 500 mg 100 In Sodium Chloride 0.9% 100 ml @ 400 mls/hr IVPB Q12HR [facility] Rx#:[id number] Intake, IV Titration 3570 1122.582 141.607 Amount Acyclovir Sodium 900 mg 250 In Sodium Chloride 0.9% 250 ml @ 268 mls/hr IVPB Q12H [facility] Rx#:[id number] Dextrose 5% in Water 1, 320 880 80 000 ml @ 80 mls/hr IV . [id number] [facility] with Sodium Bicarb (1 Meq/ml) 150 ml Rx#:[id number] Magnesium Sulfate-D5w Pmx 300 1 gm In Dextrose/Water 1 100ml.bag @ 100 mls/hr IVPB Q1H [facility] Rx#: [id number] Piperacillin-Tazobactam 3 100 .375 gm In Sodium Chloride 0.9% 100 ml @ 25 mls/hr IVPB Q8H [facility] Rx#: [id number] Potassium Chloride 20 meq 100 In Water For Injection 1 100ml.bag @ 50 mls/hr IVPB ONCE [facility] Rx#: [id number] Sodium Chloride 0.9% 2, 2000 000 ml @ 999 mls/hr IV . Q2H1M [facility] Rx#:[id number] Vancomycin 1,750 mg In 500 Sodium Chloride 0.9% 500 ml 500 ml @ 167 mls/hr IVPB ONCE [facility] Rx#: [id number] propofoL 1,000 mg In 242.582 61.607 Empty Bag 1 bag @ 15 MCG/ KG/MIN 7.961 mls/hr IV . [id number] [facility] Rx#:[id number] Tube Feeding 70 Blood Product 321 562 0 Unit 0 Ffp 24 Pher Acda Unit 221 [id number] Platelet Pheresis Pas 321 Psoralen Unit [id number] Platelet Pheresis Pas 341 Psoralen Unit [id number] Other 30 Output: Urine 370 1095 650 Other: Voiding Method Indwelling Catheter Indwelling Catheter Indwelling Catheter # Bowel Movements 1 ABP, PAP, CO, CI - Last Documented Arterial Blood Pressure 153/61 - Exam GENERAL DESCRIPTION: Elderly male intubated on the vent RESPIRATORY SYSTEM: Unlabored breathing , decreased breath sounds at bases HEART: S1 S2 regular rate and rhythm ABDOMEN: Soft , no tenderness EXTREMITIES: No edema feet - Labs CBC & Chem 7: 01/17/23 15:16 01/17/23 04:38 Labs: Abnormal Lab Results - Last 24 Hours (Table) 01/15/23 01/16/23 01/16/23 Range/Units 11:52 14:39 15:51 WBC (3.8-10.6) k/uL RBC (4.30-5.90) m/uL Hgb (13.0-17.5) gm/dL Hct (39.0-53.0) % RDW (11.5-15.5) % Plt Count (150-450) k/uL Neutrophils # (1.3-7.7) k/uL Lymphocytes # (1.0-4.8) k/uL PT (9.0-12.0) sec INR (<1.2) APTT (22.0-30.0) sec ABG pH 7.53 H (7.35-7.45) ABG pCO2 30 L (35-45) mmHg ABG pO2 71 L >400 H (83-108) mmHg ABG HCO3 26 H (21-25) mmol/L ABG Total CO2 28 H 26 H (19-24) mmol/L ABG O2 Saturation 100.0 H (94-97) % Potassium (3.5-5.1) mmol/L Chloride (98-107) mmol/L Creatinine (0.66-1.25) mg/dL Glucose (74-99) mg/dL Calcium (8.4-10.2) mg/dL Magnesium (1.6-2.3) mg/dL Crossmatch See Detail 01/16/23 01/16/23 01/16/23 Range/Units 16:00 16:00 16:00 WBC 1.5 L (3.8-10.6) k/uL RBC 2.46 L (4.30-5.90) m/uL Hgb 7.6 L (13.0-17.5) gm/dL Hct 21.7 L (39.0-53.0) % RDW 17.9 H (11.5-15.5) % Plt Count 38 L (150-450) k/uL Neutrophils # 0.9 L (1.3-7.7) k/uL Lymphocytes # 0.3 L (1.0-4.8) k/uL PT 12.1 H (9.0-12.0) sec INR 1.2 H (<1.2) APTT 33.1 H (22.0-30.0) sec ABG pH (7.35-7.45) ABG pCO2 (35-45) mmHg ABG pO2 (83-108) mmHg ABG HCO3 (21-25) mmol/L ABG Total CO2 (19-24) mmol/L ABG O2 Saturation (94-97) % Potassium 3.1 L (3.5-5.1) mmol/L Chloride 110 H (98-107) mmol/L Creatinine 2.88 H (0.66-1.25) mg/dL Glucose 101 H (74-99) mg/dL Calcium 7.6 L (8.4-10.2) mg/dL Magnesium 1.4 L (1.6-2.3) mg/dL Crossmatch 01/16/23 01/17/23 01/17/23 Range/Units 20:50 04:38 04:38 WBC 1.4 L* (3.8-10.6) k/uL RBC 2.19 L (4.30-5.90) m/uL Hgb 6.8 L* (13.0-17.5) gm/dL Hct 19.4 L* (39.0-53.0) % RDW 18.0 H (11.5-15.5) % Plt Count 55 L (150-450) k/uL Neutrophils # 1.0 L (1.3-7.7) k/uL Lymphocytes # 0.2 L (1.0-4.8) k/uL PT (9.0-12.0) sec INR (<1.2) APTT 32.7 H (22.0-30.0) sec ABG pH (7.35-7.45) ABG pCO2 (35-45) mmHg ABG pO2 (83-108) mmHg ABG HCO3 (21-25) mmol/L ABG Total CO2 (19-24) mmol/L ABG O2 Saturation (94-97) % Potassium 3.3 L (3.5-5.1) mmol/L Chloride 109 H (98-107) mmol/L Creatinine 2.71 H (0.66-1.25) mg/dL Glucose (74-99) mg/dL Calcium 7.1 L (8.4-10.2) mg/dL Magnesium (1.6-2.3) mg/dL Crossmatch 01/17/23 Range/Units 05:45 WBC (3.8-10.6) k/uL RBC (4.30-5.90) m/uL Hgb (13.0-17.5) gm/dL Hct (39.0-53.0) % RDW (11.5-15.5) % Plt Count (150-450) k/uL Neutrophils # (1.3-7.7) k/uL Lymphocytes # (1.0-4.8) k/uL PT (9.0-12.0) sec INR (<1.2) APTT (22.0-30.0) sec ABG pH 7.51 H (7.35-7.45) ABG pCO2 (35-45) mmHg ABG pO2 160 H (83-108) mmHg ABG HCO3 29 H (21-25) mmol/L ABG Total CO2 30 H (19-24) mmol/L ABG O2 Saturation 99.9 H (94-97) % Potassium (3.5-5.1) mmol/L Chloride (98-107) mmol/L Creatinine (0.66-1.25) mg/dL Glucose (74-99) mg/dL Calcium (8.4-10.2) mg/dL Magnesium (1.6-2.3) mg/dL Crossmatch Microbiology - Last 24 Hours (Table) 01/16/23 15:23 Gram Stain - Preliminary Sputum Sputum Culture - Preliminary Assessment and Plan (1) Fever Current Visit: Yes Status: Acute Priority: High Code(s): R50.9 - FEVER, UNSPECIFIED SNOMED Code(s): 523272559 Plan: 1patient was in the hospital with a fever and did have an episode of vomiting patient was noted to be slightly tender in the left lower quadrant area concerning for possible intra-abdominal source possible diverticulitis as currently not behaving as pneumonia chest x-ray was negative urine is negative influenza RSV and COVID testing was negative 2-patient with elevated creatinine high risk of nephrotoxicity 3- CT of abdominal pelvis with oral contrast , did not show any acute process but rectal feceloma , pt did have multiple BM since CT 4-Patient did have worsening of his respiratory status requiring intubation however no significant purulent secretion vomiting or aspirate was reported by the nurse. Sputum culture had been obtained which are currently pending patient to continue with the Zosyn and will monitor his clinical course closely Time with Patient: Less than 30
[2023-01-17] MEDS: GABAPENTIN 300 MG CAP PO SCH (21:50)
[2023-01-17] MEDS: CALCIUM CARBONATE 500 MG CHEWABLE PO SCH (21:50)
[2023-01-18 00:20] LABS: Glucose,Whole Blood 79 mg/dL (70-110)
[2023-01-18] MEDS: PIPERACILLIN-TAZOBACTAM 3.375 GM in SODIUM CHLORIDE 0.9% 100 ML IVPB SCH ×3 (00:39→15:28)
[2023-01-18] MEDS: NOREPINEPHRINE 8 MG in SODIUM CHLORIDE 0.9% 250 ML IV SCH (00:40)
[2023-01-18 00:50] LABS: Calcium 6.7 mg/dL (8.4-10.2); Magnesium 1.7 mg/dL (1.6-2.3); Potassium 3.4 mmol/L (3.5-5.1)
[2023-01-18 01:17] LABS: Anisocytosis Slight; HCT 22.5 % (39.0-53.0); HGB 7.9 gm/dL (13.0-17.5); MCH 30.5 pg (25.0-35.0); MCHC 34.9 g/dL (31.0-37.0); MCV 87.4 fL (80.0-100.0); Mean Platelet Volume 9.9; Poikilocytosis Slight; RBC 2.58 m/uL (4.30-5.90); RDW 18.5 % (11.5-15.5); WBC 1.7 k/uL (3.8-10.6)
[2023-01-18 01:24] LABS: Platelet Count 50 k/uL (150-450)
[2023-01-18] MEDS ORDERED: Potassium Replacement Protocol 1 EACH MISC MISCELLANE PRN (01:29)
[2023-01-18] MEDS ORDERED: Magnesium Replacement Protocol 1 EACH MISC MISCELLANE PRN (01:34)
[2023-01-18] MEDS ORDERED: MAGNESIUM SULFATE-D5W PMX 1 GM in DEXTROSE/WATER 1 100ML.BAG IVPB ONE (01:34)
[2023-01-18] MEDS: POTASSIUM BICARBONATE/CIT AC 20 MEQ TABLET.EFF NG-TUBE SCH ×2 (01:42→02:48)
[2023-01-18 03:17] LABS: Band Neutrophils % 4 %; Eosinophils # (M) 0.03 k/uL (0-0.7); Lymphocytes # (M) 0.34 k/uL (1.0-4.8); Monocytes # (M) 0.02 k/uL (0-1.0); Neutrophils % (M) 73 %; Nucleated Red Blood Cells 0 /100 WBC (0-0); Total Cells Counted 100
[2023-01-18 04:55] LABS: Anisocytosis Slight; HCT 23.4 % (39.0-53.0); HGB 7.8 gm/dL (13.0-17.5); MCH 29.4 pg (25.0-35.0); MCHC 33.4 g/dL (31.0-37.0); MCV 87.8 fL (80.0-100.0); Poikilocytosis Slight; RBC 2.67 m/uL (4.30-5.90); RDW 18.2 % (11.5-15.5)
[2023-01-18] MEDS: ACYCLOVIR SODIUM 900 MG in SODIUM CHLORIDE 0.9% 250 ML IVPB SCH ×2 (05:13→16:41)
[2023-01-18 05:18] LABS: Platelet Count 49 k/uL (150-450)
[2023-01-18 05:49] LABS: Glucose,Whole Blood 100 mg/dL (70-110)
[2023-01-18 06:00] LABS: ABG Base Excess 2.8 mmol/L; ABG HCO3 27 mmol/L (21-25); ABG PCO2 38 mmHg (35-45); ABG PH 7.45 (7.35-7.45); ABG PO2 134 mmHg (83-108); ABG TCO2 28 mmol/L (19-24); Allen Test Performed? Yes
[2023-01-18 06:36] LABS: Potassium 4.3 mmol/L (3.5-5.1)
--- NOTE | 2023-01-18 06:56 | XR ---
EXAMINATION TYPE: XR chest 1V portable DATE OF EXAM: 01/18/2023 CLINICAL HISTORY: Difficulty breathing progress study. TECHNIQUE: Single AP portable semiupright view of the chest is obtained. COMPARISON: Chest x-ray from one day earlier and older studies FINDINGS: Stable endotracheal and orogastric tubes. Low lung volumes redemonstrated. Mild cardiomegaly redemonstrated with central vascular congestion an d bibasilar opacities again seen. Osseous structures are intact. IMPRESSION: Low lung volumes and Mild cardiomegaly with mild central vascular congestion and small bi lateral pleural effusions consistent with CHF exacerbation redemonstrated. No significant change from one day earlier.
--- NOTE | 2023-01-18 07:32 | P.PN ---
Subjective Progress Note Date: 01/18/23 The patient is 67-year-old white male, well known to our service. He follows manny Browning in the outpatient setting. The patient has a known diagnosis of multiple myeloma. He has been off myeloma specific treatment since early 12/11, due to progression, as well as multiple admissions for fever of unknown origin. He was most recently admitted to the hospital on 12/29/22 with new-onset seizures. He was found to have acute on chronic renal failure. He improved with anorexia medication, as well as hydration. It was felt that the seizures were possibly due to uremia. He was then discharged to [facility] Most of the history for this admission was obtained by the patient's was at the bedside. The patient was sleepy and somewhat difficult to arouse. She stated that after lunch yesterday the patient developed nausea and vomiting. After that he was lethargic and had some intermittent tremors. She states that the tremors were not like seizures but more like chills with fever. He remained lethargic and drowsy and did not eat as dinner. Physician was therefore contacted and the patient was asked to come to the ER. In the ER he was found to have a temperature of 102.1 though he was afebrile initially. Chest x-ray showed chronic changes. CT of the abdomen and pelvis did not show any obvious source of infection. His CBC revealed a hemoglobin of 7.1, platelets 68 and WBC of 4. The patient was therefore admitted for further management. The patient himself denies any localizing signs of infection. The patient was initially febrile at time of admission. Since then, the patient has not spiked any temperature. The patient was seen by various consultants including hematology oncology, nephrology, and neurology. His neurologic functions have been essentially progressing and progressively declining. CAT scan of the brain that was was done on 01/12/2023 showed age-related atrophy with chronic small vessel ischemic changes. MRI of the brain showed symmetrical abnormal increased signal in the occipital lobes and posterior parietal lobes in the rodriguez and white matter. Lumbar puncture was attempted today and was not successful. EEG was done on 01/13/2023 showed abnormal diffuse slowing with moderate to severe encephalopathy. No seizures were noted. The patient subsequently became more unresponsive and this afternoon, the patient was in agonal breathing. The patient got transferred to the intensive care unit. The patient was intubated for airway protection. There was some respiratory secretions and the decubitus were suctioned out. Post intubation chest x-ray showed no significant abnormalities. No airspace disease. No pleural effusions. The patient had some abnormal ST the right midlung that was unchanged and this was an expansile right rib lesion. The patient was already receiving Zosyn. I added vancomycin. The patient is already on IV acyclovir. Post intubation, he was placed on propofol at 35 mcg/kg/m. He did develop some hypotension is currently receiving a bolus of normal saline. Blood gases post intubation showed a pH of 7.3 with a pCO2 of 30 and pO2 more than 400. Patient is currently on assist control mode at the rate of 24, tidal volume of 450, FiO2 of 100% and a PEEP of 5. The patient is also in acute kidney injury on top of chronic renal failure. His admission creatinine was at 4.07 and dropped down to 2.9. The patient is pancytopenic due to his myeloma with a white second of 2.1, hemoglobin of 7.9 and platelet count of 27. This is a unit of platelets today On 01/17/2023, the patient remains intubated on a mechanical ventilator. Today he is on propofol running at 30 mcg/kg/m. He only grimaces to deep painful stimulation. He does not follow any commands. Sedation was started to maintain synchrony with a mechanical ventilator. Noted the patient was quite unresponsive yesterday prior to his intubation. Subsequently, CAT scan of the brain was done that showed no acute abnormalities. The patient remains intubated on a mechanical ventilator. Today, he is on assist-control mode at the rate of 14, tidal volume of 450, FiO2 of 40% and a PEEP of 5. Chest x-ray shows ET tube being in a good location. There is lower lobe pulmonary infiltrates bilaterally. Suspect an underlying aspiration pneumonia. Antibiotic coverage is modified the patient is currently on a combination of Zosyn, vancomycin. He is also 96 acyclovir suspecting an underlying encephalitis. Exact cause for this patient is an underlying deterioration has not been adequately established. EEG has shown diffuse slowing and moderate to severe encephalopathy. Unable to do a lumbar puncture. MRI of the brain was nonrevealing. CAT scan of the brain showed negative abnormalities. He has progressive multiple myeloma. There is obvious hematologic abnormalities with pancytopenia. The white cell count is down to 1.4 and there is a further drop in hemoglobin down to 6.8 and his platelet count is at 55. Encountered some limited bleeding from his puncture sites in his troponin lumen catheter and arterial line site. The patient was given platelets yesterday and the bleeding was controlled. He may benefit from a unit of packed RBC in addition. His blood gases from today shows a pH of 7.51 with a pCO2 of 37 and pO2 of 160. BUN is at 9 with a creatinine of 2.7 and a sodium level is at 143. Hemodynamically, the patient is on no pressors. IV fluids are in the form of bicarb infusion at the rate of 80 mL an hour. Nephrology is on the case. 2022, the patient remains unresponsive. We gave him a sedation holiday for a prolonged period of time yesterday and unfortunately, there was no neurologic response. There was only grimaces to deep painful stimulation. Otherwise, he does not open up his eyes, does not follow any commands, motor and sensory functions cannot be assessed, no seizure activity has been noted an EEG was done that showed moderate to severe encephalopathy without any epileptic foci. The patient is afebrile. No neck stiffness. Unable to do a lumbar puncture. I discussed the case was anesthesia and there were not willing to do his lumbar puncture specially with his underlying thrombocytopenia. Note that interventional radiology try to obtain a lumbar puncture under fluoroscopy earlier and this was not successful. He remains on IV acyclovir. He remains on broad-spectrum antibiotics with a combination of Zosyn and vancomycin. While on a mechanical ventilator, his condition remained stable. Is on assist-control at the rate of 14, tidal volume of 450, FiO2 40% and a PEEP of 5. His chest x-ray remains unchanged. Hemodynamically, he did drop his pressure yesterday and he was started on a low-dose of norepinephrine which is currently running at 0.02 mcg/kg/m. Cardiac rhythm is sinus. He is producing adequate amount of urine output. His hematologic profile from today shows a WBC count of 2, hemoglobin of 7.8, platelet count was 50 from yesterday pending from today. Blood gas shows a pH of 7.45 with a pCO2 of 38 and pO2 of 134. The BUN is at 9 with a creatinine of 2.7 as the patient's chronic kidney disease secondary to multiple myeloma. Sodium is 144 with a potassium level of 4.3. Vancomycin trough was 33. Sputum culture was negative. Blood cultures were negative. Various consultants involved including hematology regarding his progressive myeloma. He is also under the care of neurology to start the patient on Keppra. Is also on Vimpat. Nephrology is also on the case. No major change in his condition at this point in time. Objective - Vital Signs Vital signs: Vital Signs Temp 97.9 F 01/18/23 04:00 Pulse 96 01/18/23 07:00 Resp 14 01/18/23 07:00 BP 120/67 01/18/23 07:00 Pulse Ox 99 01/18/23 07:00 FiO2 40 01/18/23 04:00 Intake & Output 01/17/23 01/18/23 01/18/23 18:59 06:59 18:59 Intake Total 1337.261 980.276 73 Output Total 960 720 85 Balance 377.261 260.276 -12 Weight 91.4 kg 97.9 kg Intake: IV 618 776 73 0.9 Sodium Chloride 190 640 70 Dextrose 5% in Water 1, 160 000 ml @ 80 mls/hr IV . [id number] NNAMDI with Sodium Bicarb (1 Meq/ml) 150 ml Rx#:[id number] Lacosamide IV 50 mg In 50 Sodium Chloride 0.9% 50 ml @ 100 mls/hr IVPB BID [facility] Rx#:[id number] Piperacillin-Tazobactam 3 100 100 .375 gm In Sodium Chloride 0.9% 100 ml @ 25 mls/hr IVPB Q8H [facility] Rx#: [id number] Pressure Bag (0.9 Sodium 18 36 3 Chloride) levETIRAcetam IV 500 mg 100 In Sodium Chloride 0.9% 100 ml @ 400 mls/hr IVPB Q12HR [facility] Rx#:[id number] Intake, IV Titration 139.261 204.276 Amount Dextrose 5% in Water 1, 80 000 ml @ 80 mls/hr IV . [id number] NNAMDI with Sodium Bicarb (1 Meq/ml) 150 ml Rx#:[id number] Norepinephrine 8 mg In 24.495 Sodium Chloride 0.9% 250 ml @ 0.03 MCG/KG/MIN 5. 306 mls/hr IV .Q24H [facility] Rx#:[id number] propofoL 1,000 mg In 59.261 179.781 Empty Bag 1 bag @ 15 MCG/ KG/MIN 7.961 mls/hr IV . [id number] [facility] Rx#:[id number] Tube Feeding 150 Blood Product 310 Rc As-1 Unit 310 [id number] Other 120 Output: Urine 960 720 85 Other: Voiding Method Indwelling Catheter Indwelling Catheter ABP, PAP, CO, CI - Last Documented Arterial Blood Pressure 106/46 - Exam Unresponsive, currently on sedation with propofol, intubated on a mechanical ventilator Head exam was generally normal. There was no scleral icterus or corneal arcus. Mucous membranes were moist. Neck was supple and without jugular venous distension, thyromegaly, or carotid bruits. Carotids were easily palpable bilaterally. There was no adenopathy. Lungs were clear to auscultation and percussion, and with normal diaphragmatic excursion. No wheezes or rales were noted. Cardiac exam revealed the PMI to be normally situated and sized. The rhythm was regular and no extrasystoles were noted during several minutes of auscultation. The first and second heart sounds were normal and physiologic splitting of the second heart sound was noted. There were no murmurs, rubs, clicks, or gallops. Abdominal exam revealed normal bowel sounds. The abdomen was soft, non-tender, and without masses, organomegaly, or appreciable enlargement of the abdominal aorta. Examination of the extremities revealed easily palpable radial, femoral and pedal pulses. There was no cyanosis, clubbing or edema. Neurologically the patient is around 3 mm pupils, sluggishly reactive to light. Positive cough. Positive gag. Not responsive to any verbal or painful stimulation. No Babinski. No clonus. Reflexes are symmetrical. Skin, no evidence of any active bleeding at this triple-lumen catheter and arterial line site. - Labs CBC & Chem 7: 01/18/23 04:46 01/18/23 04:46 Labs: Abnormal Lab Results - Last 24 Hours (Table) 01/15/23 01/17/23 01/18/23 Range/Units 11:52 15:16 00:15 WBC 2.0 L 1.7 L (3.8-10.6) k/uL RBC 2.78 L 2.58 L (4.30-5.90) m/uL Hgb 8.3 L D 7.9 L (13.0-17.5) gm/dL Hct 24.3 L 22.5 L (39.0-53.0) % RDW 17.9 H 18.5 H (11.5-15.5) % Plt Count 51 L 50 L (150-450) k/uL Lymphocytes # (Manual) 0.34 L (1.0-4.8) k/uL ABG pO2 (83-108) mmHg ABG HCO3 (21-25) mmol/L ABG Total CO2 (19-24) mmol/L ABG O2 Saturation (94-97) % Potassium (3.5-5.1) mmol/L Chloride (98-107) mmol/L Creatinine (0.66-1.25) mg/dL Glucose (74-99) mg/dL Calcium (8.4-10.2) mg/dL Crossmatch See Detail 01/18/23 01/18/23 01/18/23 Range/Units 00:15 04:46 04:46 WBC 2.0 L (3.8-10.6) k/uL RBC 2.67 L (4.30-5.90) m/uL Hgb 7.8 L (13.0-17.5) gm/dL Hct 23.4 L (39.0-53.0) % RDW 18.2 H (11.5-15.5) % Plt Count (150-450) k/uL Lymphocytes # (Manual) (1.0-4.8) k/uL ABG pO2 (83-108) mmHg ABG HCO3 (21-25) mmol/L ABG Total CO2 (19-24) mmol/L ABG O2 Saturation (94-97) % Potassium 3.4 L (3.5-5.1) mmol/L Chloride 111 H 113 H (98-107) mmol/L Creatinine 2.78 H 2.73 H (0.66-1.25) mg/dL Glucose 100 H (74-99) mg/dL Calcium 6.7 L 7.0 L (8.4-10.2) mg/dL Crossmatch 01/18/23 Range/Units 05:53 WBC (3.8-10.6) k/uL RBC (4.30-5.90) m/uL Hgb (13.0-17.5) gm/dL Hct (39.0-53.0) % RDW (11.5-15.5) % Plt Count (150-450) k/uL Lymphocytes # (Manual) (1.0-4.8) k/uL ABG pO2 134 H (83-108) mmHg ABG HCO3 27 H (21-25) mmol/L ABG Total CO2 28 H (19-24) mmol/L ABG O2 Saturation 100.0 H (94-97) % Potassium (3.5-5.1) mmol/L Chloride (98-107) mmol/L Creatinine (0.66-1.25) mg/dL Glucose (74-99) mg/dL Calcium (8.4-10.2) mg/dL Crossmatch Microbiology - Last 24 Hours (Table) 01/16/23 15:23 Gram Stain - Preliminary Sputum Sputum Culture - Preliminary Assessment and Plan Plan: Unresponsiveness, altered mentation, progressive worsening over this past 1 week and currently the patient is essentially unresponsive. He is on low degree of sedation with propofol to maintain synchrony with a mechanical ventilator. Once off the propofol, the patient does not show any signs of neurological recovery. CAT scan of the brain was repeated and it was essentially negative for any acute abnormalities. EEG was done consistent with moderate to severe encephalopathy. MRI of the brain was also done that showed abnormal increased signal in the occipital lobes and the posterior parietal lobes and the Greyhound white matter. Acute respiratory failure, hypoxic, and the patient was intubated for airway protection. Post intubation, the oxygenation improved and the chest x-ray showed development of lower lobe pulmonary infiltrates bilaterally, consider aspiration pneumonia and the patient is currently on Zosyn and vancomycin History of seizures, currently inactive and stable and the patient is currently on combination of Keppra and Vimpat Fever, recovered History of posterior reversible encephalopathy syndrome on MRI based on the one that was done on 12/29/2022 and subsequent improvement on follow-up MRI imaging. Multiple myeloma,noted disease progression on Kyprolis/Pomalyst/dexamethasone. Has been seen by Dr. Gambino of [facility] in [place] to review CAR-T treatment on 01/07/2023 the Plan was to undergo salvage treatment for additional disease control prior to undergoing CAR-T Pancytopenia secondary to above Chronic kidney disease secondary to multiple myeloma, the patient is known to have chronic stage III B kidney disease Acute on top of chronic kidney insufficiency secondary myeloma, improving Previous history of pulmonary embolism Coronary artery disease T12 fracture and multiple vertebral fracture due to multiple myeloma Hyperlipidemia Hypotension, currently on norepinephrine, low-dose which could be essentially weaned off and discontinued. Plan Continue vent support No vent changes for today Continue same antibiotic coverage Discontinue the propofol and assess the patient's mentation Obtain sputum Gram stain and culture and blood cultures CAT scan of the brain was repeated and nothing acute Continue Zosyn and acyclovir and vancomycin Continue enteral feeding for nutritional support May need to repeat the lumbar puncture attempt, a discussion needs to be done with the family and with neurology and hematology oncology regarding his impaire d mentation and the exact causes. To me, is not clear why the patient is altered mentally neurologically and I cannot explain his progressive neurologic and physical decline other than progression his multiple myeloma and possibly some DIN[employer] SLATE involvement. As such, ideally, a lumbar puncture will be of value here nevertheless, the patient has significant leukocytopenia the procedure itself was complicated and interventional radiology was unable to obtain the lumbar puncture under fluoroscopy guidance. Anesthesia will not be able also to do this lumbar puncture Continue Jesusita on Vimpat Neurologic immediately consulted, their input is appreciated Nephrology consult appreciated Hematology oncology consult appreciated We will prognosis and will continue to follow. Symbicort prognosis based on the above-mentioned. We'll continue to follow, critical care evaluation >30 min Time with Patient: Greater than 30
[2023-01-18 07:33] LABS: Band Neutrophils % 13 %; Monocytes # (M) 0.06 k/uL (0-1.0); Neutrophils % (M) 59 %; Nucleated Red Blood Cells 0 /100 WBC (0-0); Total Cells Counted 100
[2023-01-18 07:34] LABS: Target Cells Present
--- NOTE | 2023-01-18 07:55 | P.PN ---
Subjective Progress Note Date: 01/17/23 The patient sedated on the vent. Mild oozing at the site of arterial and central venous lines. No overt fevers or chills. Objective - Vital Signs Vital signs: Vital Signs Temp 97.9 F 01/18/23 04:00 Pulse 96 01/18/23 07:00 Resp 14 01/18/23 07:00 BP 120/67 01/18/23 07:00 Pulse Ox 99 01/18/23 07:00 FiO2 40 01/18/23 04:00 Intake & Output 01/17/23 01/18/23 01/18/23 18:59 06:59 18:59 Intake Total 1337.261 980.276 73 Output Total 960 720 85 Balance 377.261 260.276 -12 Weight 91.4 kg 97.9 kg Intake: IV 618 776 73 0.9 Sodium Chloride 190 640 70 Dextrose 5% in Water 1, 160 000 ml @ 80 mls/hr IV . [id number] NNAMDI with Sodium Bicarb (1 Meq/ml) 150 ml Rx#:[id number] Lacosamide IV 50 mg In 50 Sodium Chloride 0.9% 50 ml @ 100 mls/hr IVPB BID [facility] Rx#:[id number] Piperacillin-Tazobactam 3 100 100 .375 gm In Sodium Chloride 0.9% 100 ml @ 25 mls/hr IVPB Q8H [facility] Rx#: [id number] Pressure Bag (0.9 Sodium 18 36 3 Chloride) levETIRAcetam IV 500 mg 100 In Sodium Chloride 0.9% 100 ml @ 400 mls/hr IVPB Q12HR [facility] Rx#:[id number] Intake, IV Titration 139.261 204.276 Amount Dextrose 5% in Water 1, 80 000 ml @ 80 mls/hr IV . [id number] NNAMDI with Sodium Bicarb (1 Meq/ml) 150 ml Rx#:[id number] Norepinephrine 8 mg In 24.495 Sodium Chloride 0.9% 250 ml @ 0.03 MCG/KG/MIN 5. 306 mls/hr IV .Q24H [facility] Rx#:[id number] propofoL 1,000 mg In 59.261 179.781 Empty Bag 1 bag @ 15 MCG/ KG/MIN 7.961 mls/hr IV . [id number] [facility] Rx#:[id number] Tube Feeding 150 Blood Product 310 Rc As-1 Unit 310 [id number] Other 120 Output: Urine 960 720 85 Other: Voiding Method Indwelling Catheter Indwelling Catheter ABP, PAP, CO, CI - Last Documented Arterial Blood Pressure 106/46 - Constitutional General appearance: Present: no acute distress - EENT EENT Comment(s): Sedated, on ventilator. ET tube in situ. No obvious blood in ET tube - Respiratory Respiratory: bilateral: CTA - Cardiovascular Rhythm: regular Heart sounds: normal: S1, S2 - Gastrointestinal General gastrointestinal: Present: decreased bowel sounds, soft - Integumentary Integumentary: Present: normal - Musculoskeletal Musculoskeletal: Present: generalized weakness - Psychiatric Psychiatric Comment(s): Sedated, on ventilator - Labs CBC & Chem 7: 01/18/23 04:46 01/18/23 04:46 Labs: Abnormal Lab Results - Last 24 Hours (Table) 01/15/23 01/17/23 01/18/23 Range/Units 11:52 15:16 00:15 WBC 2.0 L 1.7 L (3.8-10.6) k/uL RBC 2.78 L 2.58 L (4.30-5.90) m/uL Hgb 8.3 L D 7.9 L (13.0-17.5) gm/dL Hct 24.3 L 22.5 L (39.0-53.0) % RDW 17.9 H 18.5 H (11.5-15.5) % Plt Count 51 L 50 L (150-450) k/uL Lymphocytes # (Manual) 0.34 L (1.0-4.8) k/uL ABG pO2 (83-108) mmHg ABG HCO3 (21-25) mmol/L ABG Total CO2 (19-24) mmol/L ABG O2 Saturation (94-97) % Potassium (3.5-5.1) mmol/L Chloride (98-107) mmol/L Creatinine (0.66-1.25) mg/dL Glucose (74-99) mg/dL Calcium (8.4-10.2) mg/dL Crossmatch See Detail 01/18/23 01/18/23 01/18/23 Range/Units 00:15 04:46 04:46 WBC 2.0 L (3.8-10.6) k/uL RBC 2.67 L (4.30-5.90) m/uL Hgb 7.8 L (13.0-17.5) gm/dL Hct 23.4 L (39.0-53.0) % RDW 18.2 H (11.5-15.5) % Plt Count 49 L (150-450) k/uL Lymphocytes # (Manual) 0.40 L (1.0-4.8) k/uL ABG pO2 (83-108) mmHg ABG HCO3 (21-25) mmol/L ABG Total CO2 (19-24) mmol/L ABG O2 Saturation (94-97) % Potassium 3.4 L (3.5-5.1) mmol/L Chloride 111 H 113 H (98-107) mmol/L Creatinine 2.78 H 2.73 H (0.66-1.25) mg/dL Glucose 100 H (74-99) mg/dL Calcium 6.7 L 7.0 L (8.4-10.2) mg/dL Crossmatch 01/18/23 Range/Units 05:53 WBC (3.8-10.6) k/uL RBC (4.30-5.90) m/uL Hgb (13.0-17.5) gm/dL Hct (39.0-53.0) % RDW (11.5-15.5) % Plt Count (150-450) k/uL Lymphocytes # (Manual) (1.0-4.8) k/uL ABG pO2 134 H (83-108) mmHg ABG HCO3 27 H (21-25) mmol/L ABG Total CO2 28 H (19-24) mmol/L ABG O2 Saturation 100.0 H (94-97) % Potassium (3.5-5.1) mmol/L Chloride (98-107) mmol/L Creatinine (0.66-1.25) mg/dL Glucose (74-99) mg/dL Calcium (8.4-10.2) mg/dL Crossmatch Microbiology - Last 24 Hours (Table) 01/16/23 15:23 Gram Stain - Preliminary Sputum Sputum Culture - Preliminary Assessment and Plan (1) Fever of unknown origin Narrative/Plan: This was present on admission, but the patient has been afebrile now for several days. Infection workup is negative so far. Patient continues on broad-spectrum antibiotics. Current Visit: Yes Status: Acute Priority: High Code(s): R50.9 - FEVER, UNSPECIFIED SNOMED Code(s): 3601220 (2) Pancytopenia due to antineoplastic chemotherapy Narrative/Plan: Pancytopenia is also due to underlying progression of multiple myeloma. 1 unit PRBC ordered for hemoglobin less than 7. Monitor and transfuse to keep hemoglobin greater than 7. Platelet counts appear to be adequate around 50,000. Total WBC is low, but ANC is adequate at greater than 1000 - Continue monitoring with supportive care as needed - If there is evidence of active bleeding, transfuse, as needed to keep platelets greater than 40-50,000. Current Visit: No Status: Acute Code(s): D61.810 - ANTINEOPLASTIC CHEMOTHERAPY INDUCED PANCYTOPENIA; T45.1X5A - ADVERSE EFFECT OF ANTINEOPLASTIC AND IMMUNOSUP DRUGS, INIT SNOMED Code(s): 787109994687402 (3) Multiple myeloma Narrative/Plan: Treatment on hold, due to current acute problems Current Visit: Yes Status: Chronic Priority: High Code(s): C90.00 - MULTIPLE MYELOMA NOT HAVING ACHIEVED REMISSION SNOMED Code(s): 997352346 (4) Altered mental status Narrative/Plan: The patient has become increasingly lethargic, ultimately requiring intubation for protection of airway. Etiology of the same as unclear at this time. The patient has been afebrile since soon after admission, And does not appear to be overtly septic. Metabolic parameters are stable with creatinine in the high 2 range. - The case was discussed with neurology. Lumbar puncture was attempted yesterday, but was unfortunately not successful. Process such as PML appears to be much less likely clinically, according to neurology, given the speed of onset. Based on most recent MRI they feel that a PLES is more likely. METER TESTER in volvement with myeloma is not ruled out. - Continue supportive care. - Consider repeat attempt at LP. Anesthesia has been contacted by the admitting service. Current Visit: Yes Status: Acute Code(s): R41.82 - ALTERED MENTAL STATUS, UNSPECIFIED SNOMED Code(s): 043727509
[2023-01-18] MEDS: CHOLECALCIFEROL 25 MCG (1000 IU) TABLET PO SCH (08:29)
[2023-01-18] MEDS: levETIRAcetam IV 500 MG in SODIUM CHLORIDE 0.9% 100 ML IVPB SCH ×2 (08:29→20:15)
[2023-01-18] MEDS: CHLORHEXIDINE GLUCONATE 15 ML CUP MUCOUS MEM SCH ×2 (08:29→20:15)
[2023-01-18] MEDS: SODIUM BICARBONATE TAB 650 MG TAB PO SCH ×3 (08:29→22:36)
[2023-01-18] MEDS: LACOSAMIDE IV 50 MG in SODIUM CHLORIDE 0.9% 50 ML IVPB SCH ×2 (10:05→23:23)
--- NOTE | 2023-01-18 13:50 | P.PN ---
Subjective Progress Note Date: 01/18/23 The patient is seen at bedside and continues to be intubated on ventilator. Is on IV Propofol but was held in morning. He was on 15mcg/kg/min according to nurse. He remains afebrile. Pain specialist did not want to pursue with lumbar puncture because of thrombocytopenia. Objective - Vital Signs Vital signs: Vital Signs Temp 98.0 F 01/18/23 08:00 Pulse 96 01/18/23 11:00 Resp 17 01/18/23 11:00 BP 122/62 01/18/23 08:00 Pulse Ox 99 01/18/23 11:00 FiO2 40 01/18/23 12:00 Intake & Output 01/17/23 01/18/23 01/18/23 18:59 06:59 18:59 Intake Total 1337.261 980.276 769.184 Output Total 960 720 560 Balance 377.261 260.276 209.184 Weight 91.4 kg 97.9 kg Intake: IV 618 776 441 0.9 Sodium Chloride 190 640 170 Dextrose 5% in Water 1, 160 000 ml @ 80 mls/hr IV . [id number] [facility] with Sodium Bicarb (1 Meq/ml) 150 ml Rx#:[id number] Lacosamide IV 50 mg In 50 50 Sodium Chloride 0.9% 50 ml @ 100 mls/hr IVPB BID [facility] Rx#:[id number] Piperacillin-Tazobactam 3 100 100 100 .375 gm In Sodium Chloride 0.9% 100 ml @ 25 mls/hr IVPB Q8H [facility] Rx#: [id number] Pressure Bag (0.9 Sodium 18 36 21 Chloride) levETIRAcetam IV 500 mg 100 100 In Sodium Chloride 0.9% 100 ml @ 400 mls/hr IVPB Q12HR [facility] Rx#:[id number] Intake, IV Titration 139.261 204.276 28.184 Amount Dextrose 5% in Water 1, 80 000 ml @ 80 mls/hr IV . [id number] [facility] with Sodium Bicarb (1 Meq/ml) 150 ml Rx#:[id number] Norepinephrine 8 mg In 24.495 12.262 Sodium Chloride 0.9% 250 ml @ 0.03 MCG/KG/MIN 5. 306 mls/hr IV .Q24H [facility] Rx#:[id number] propofoL 1,000 mg In 59.261 179.781 15.922 Empty Bag 1 bag @ 15 MCG/ KG/MIN 7.961 mls/hr IV . [id number] [facility] Rx#:[id number] Tube Feeding 150 240 Blood Product 310 Rc As-1 Unit 310 [id number] Other 120 60 Output: Urine 960 720 560 Other: Voiding Method Indwelling Catheter Indwelling Catheter Indwelling Catheter ABP, PAP, CO, CI - Last Documented Arterial Blood Pressure 125/54 - Exam GENERAL: The patient is lying in bed and does not appear in acute distress. LUNG: Intubated on ventilator. NEUROLOGICAL: Limited because of his condition. Is on IV Propofol 15mcg/kg/min---held Higher mental function: The patient is stupor. Not following commands or verbalizing. Cranial nerves: I had to manually open his eyes and primary gaze is midline. Pupils are round, equal and reactive to light. No facial weakenss. Is breathing over the vent. Motor: The strength is unable to assess. No spontaneous movement. Cerebellum: Unable to assess. Sensation: Unable to assess. Some of the workup during this hospital visit consisted of: On initial presentation the patient had a fever of 102.1 max currently it's the resolved Hemoglobin was as low as a 6.2 and currently 3.4 His creatinine is 4.07 currently is 2.7 glucose had episodes as low as 65 currently 71. Then yesterday was low as 51. Ionized calcium is 6.0 He could've the head ordered by the primary team is reported as age-related atrophy and chronic small vessel ischemic change without acute intracranial process seen at this time. I personally reviewed the CT and I agree there is no acute subacute ischemia, there is no bleed. MR the brain is reported as symmetrical abnormal increased signal in the occipital lobe and posterior parietal lobe and the rodriguez and white matter. This is predominantly white matter abnormality and could relate to microvascular ischemia. I do not suspect demyelinating disease. I personally reviewed the MRI and the patient has hyperintensity on the flare over the occipital parietal but must drastically improved compared to 12/30/[address] of the head is reported as no acute hemorrhage, hydrocephalus or mass effect. CT cervical spine is reported as no acute fracture or subluxation. 5 mm sclerotic lesion left articular process of C4, nonspecific. Possibly a bone island. - Labs CBC & Chem 7: 04/02/23 04:46 01/18/23 04:46 Labs: Abnormal Lab Results - Last 24 Hours (Table) 01/15/23 01/17/23 01/18/23 Range/Units 11:52 15:16 00:15 WBC 2.0 L 1.7 L (3.8-10.6) k/uL RBC 2.78 L 2.58 L (4.30-5.90) m/uL Hgb 8.3 L D 7.9 L (13.0-17.5) gm/dL Hct 24.3 L 22.5 L (39.0-53.0) % RDW 17.9 H 18.5 H (11.5-15.5) % Plt Count 51 L 50 L (150-450) k/uL Lymphocytes # (Manual) 0.34 L (1.0-4.8) k/uL ABG pO2 (83-108) mmHg ABG HCO3 (21-25) mmol/L ABG Total CO2 (19-24) mmol/L ABG O2 Saturation (94-97) % Potassium (3.5-5.1) mmol/L Chloride (98-107) mmol/L Creatinine (0.66-1.25) mg/dL Glucose (74-99) mg/dL Calcium (8.4-10.2) mg/dL Crossmatch See Detail 01/18/23 01/18/23 01/18/23 Range/Units 00:15 04:46 04:46 WBC 2.0 L (3.8-10.6) k/uL RBC 2.67 L (4.30-5.90) m/uL Hgb 7.8 L (13.0-17.5) gm/dL Hct 23.4 L (39.0-53.0) % RDW 18.2 H (11.5-15.5) % Plt Count 49 L (150-450) k/uL Lymphocytes # (Manual) 0.40 L (1.0-4.8) k/uL ABG pO2 (83-108) mmHg ABG HCO3 (21-25) mmol/L ABG Total CO2 (19-24) mmol/L ABG O2 Saturation (94-97) % Potassium 3.4 L (3.5-5.1) mmol/L Chloride 111 H 113 H (98-107) mmol/L Creatinine 2.78 H 2.73 H (0.66-1.25) mg/dL Glucose 100 H (74-99) mg/dL Calcium 6.7 L 7.0 L (8.4-10.2) mg/dL Crossmatch 01/18/23 Range/Units 05:53 WBC (3.8-10.6) k/uL RBC (4.30-5.90) m/uL Hgb (13.0-17.5) gm/dL Hct (39.0-53.0) % RDW (11.5-15.5) % Plt Count (150-450) k/uL Lymphocytes # (Manual) (1.0-4.8) k/uL ABG pO2 134 H (83-108) mmHg ABG HCO3 27 H (21-25) mmol/L ABG Total CO2 28 H (19-24) mmol/L ABG O2 Saturation 100.0 H (94-97) % Potassium (3.5-5.1) mmol/L Chloride (98-107) mmol/L Creatinine (0.66-1.25) mg/dL Glucose (74-99) mg/dL Calcium (8.4-10.2) mg/dL Crossmatch Microbiology - Last 24 Hours (Table) 01/16/23 15:23 Gram Stain - Preliminary Sputum Sputum Culture - Preliminary Brisa albicans Assessment and Plan Assessment: Also mental status seems due to metabolic encephalopathy. Has fever of unknown origin (fever was only at presentation and that resolved). Rule out ?encephalitis. Also has hypogylecmia (as low as 50's), elevated ionized calcium--glucose improved. History of seizures according to the he has subtle jerking of upper extremities (in past had left facial twitching and myoclonic jerks) History of Posterior reversible encephalopathy syndrome on MRI of the brain of 12/29/2022 admission and improving on this current MRI. Acute on chronic kidney insufficiency History of multiple myeloma and had chemotherapy Pancytopenia History of pulmonary embolism on Eliquis History of a T12 fracture with multiple vertebral fracture due to multiple myeloma History of coronary artery disease Dyslipidemia Plan: He is on Keppra Keppra to 500mg bid and added Vimpat 50 mg one tablet twice a day (started on 01/12/23) especially since according to the he has subtle jerks of the upper extremity. Routine EEG: Is abnormal. The background slowing suggestive of moderate to severe encephalopathy. Otherwise there is no focal slowing, epileptiform discharges or seizure on the EEG. Ordered repeat EEG (to be done tomorrow). ID team is on board for the fever. Lumbar puncture is unsuccessful. Pain specialist will not perform Lumbar Puncture because of thrombocytopenia. Is on Acylovir, Acylovir and Zosyn. I.D. is on board. We'll defer the rest of the medical measure the primary team Condition is very guarded. The plan is discussed with patient's nurse. Then later I updated the patient's son (Eddi) via phone. Dr. Rivera will start neurology service tomorrow A.M. Time with Patient: Less than 30
[2023-01-18 13:52] LABS: Glucose,Whole Blood 125 mg/dL (70-110)
--- NOTE | 2023-01-18 15:12 | P.PN ---
Subjective Progress Note Date: 01/18/23 Follow-up for acute kidney injury. Urine output of 1.6 L in the last 24 hours. Objective - Vital Signs Vital signs: Vital Signs Temp 98.7 F 01/18/23 12:00 Pulse 96 01/18/23 15:00 Resp 14 01/18/23 15:00 BP 143/75 01/18/23 15:00 Pulse Ox 100 01/18/23 15:00 FiO2 40 01/18/23 12:00 Intake & Output 01/17/23 01/18/23 01/18/23 18:59 06:59 18:59 Intake Total 1337.261 980.276 769.184 Output Total 960 720 560 Balance 377.261 260.276 209.184 Weight 91.4 kg 97.9 kg Intake: IV 618 776 441 0.9 Sodium Chloride 190 640 170 Dextrose 5% in Water 1, 160 000 ml @ 80 mls/hr IV . [id number] [facility] with Sodium Bicarb (1 Meq/ml) 150 ml Rx#:[id number] Lacosamide IV 50 mg In 50 50 Sodium Chloride 0.9% 50 ml @ 100 mls/hr IVPB BID [facility] Rx#:[id number] Piperacillin-Tazobactam 3 100 100 100 .375 gm In Sodium Chloride 0.9% 100 ml @ 25 mls/hr IVPB Q8H [facility] Rx#: [id number] Pressure Bag (0.9 Sodium 18 36 21 Chloride) levETIRAcetam IV 500 mg 100 100 In Sodium Chloride 0.9% 100 ml @ 400 mls/hr IVPB Q12HR [facility] Rx#:[id number] Intake, IV Titration 139.261 204.276 28.184 Amount Dextrose 5% in Water 1, 80 000 ml @ 80 mls/hr IV . [id number] [facility] with Sodium Bicarb (1 Meq/ml) 150 ml Rx#:[id number] Norepinephrine 8 mg In 24.495 12.262 Sodium Chloride 0.9% 250 ml @ 0.03 MCG/KG/MIN 5. 306 mls/hr IV .Q24H [facility] Rx#:[id number] propofoL 1,000 mg In 59.261 179.781 15.922 Empty Bag 1 bag @ 15 MCG/ KG/MIN 7.961 mls/hr IV . [id number] [facility] Rx#:[id number] Tube Feeding 150 240 Blood Product 310 Rc As-1 Unit 310 [id number] Other 120 60 Output: Urine 960 720 560 Other: Voiding Method Indwelling Catheter Indwelling Catheter Indwelling Catheter ABP, PAP, CO, CI - Last Documented Arterial Blood Pressure 129/56 - Exam No acute distress, on ventilator. S1-S2 heard Decreased breath No edema - Labs CBC & Chem 7: 01/18/23 04:46 01/18/23 04:46 Labs: Abnormal Lab Results - Last 24 Hours (Table) 01/17/23 01/18/23 01/18/23 Range/Units 15:16 00:15 00:15 WBC 2.0 L 1.7 L (3.8-10.6) k/uL RBC 2.78 L 2.58 L (4.30-5.90) m/uL Hgb 8.3 L D 7.9 L (13.0-17.5) gm/dL Hct 24.3 L 22.5 L (39.0-53.0) % RDW 17.9 H 18.5 H (11.5-15.5) % Plt Count 51 L 50 L (150-450) k/uL Lymphocytes # (Manual) 0.34 L (1.0-4.8) k/uL ABG pO2 (83-108) mmHg ABG HCO3 (21-25) mmol/L ABG Total CO2 (19-24) mmol/L ABG O2 Saturation (94-97) % Potassium 3.4 L (3.5-5.1) mmol/L Chloride 111 H (98-107) mmol/L Creatinine 2.78 H (0.66-1.25) mg/dL Glucose (74-99) mg/dL POC Glucose (mg/dL) (70-110) mg/dL Calcium 6.7 L (8.4-10.2) mg/dL 01/18/23 01/18/23 01/18/23 Range/Units 04:46 04:46 05:53 WBC 2.0 L (3.8-10.6) k/uL RBC 2.67 L (4.30-5.90) m/uL Hgb 7.8 L (13.0-17.5) gm/dL Hct 23.4 L (39.0-53.0) % RDW 18.2 H (11.5-15.5) % Plt Count 49 L (150-450) k/uL Lymphocytes # (Manual) 0.40 L (1.0-4.8) k/uL ABG pO2 134 H (83-108) mmHg ABG HCO3 27 H (21-25) mmol/L ABG Total CO2 28 H (19-24) mmol/L ABG O2 Saturation 100.0 H (94-97) % Potassium (3.5-5.1) mmol/L Chloride 113 H (98-107) mmol/L Creatinine 2.73 H (0.66-1.25) mg/dL Glucose 100 H (74-99) mg/dL POC Glucose (mg/dL) (70-110) mg/dL Calcium 7.0 L (8.4-10.2) mg/dL 01/18/23 Range/Units 13:50 WBC (3.8-10.6) k/uL RBC (4.30-5.90) m/uL Hgb (13.0-17.5) gm/dL Hct (39.0-53.0) % RDW (11.5-15.5) % Plt Count (150-450) k/uL Lymphocytes # (Manual) (1.0-4.8) k/uL ABG pO2 (83-108) mmHg ABG HCO3 (21-25) mmol/L ABG Total CO2 (19-24) mmol/L ABG O2 Saturation (94-97) % Potassium (3.5-5.1) mmol/L Chloride (98-107) mmol/L Creatinine (0.66-1.25) mg/dL Glucose (74-99) mg/dL POC Glucose (mg/dL) 125 H (70-110) mg/dL Calcium (8.4-10.2) mg/dL Microbiology - Last 24 Hours (Table) 01/16/23 15:23 Gram Stain - Preliminary Sputum Sputum Culture - Preliminary Brisa albicans Assessment and Plan Assessment: #1 acute kidney injury suspect prerenal physiology. #2 chronic kidney disease stage IV, baseline creatinine 2.3-2.4 MG per DL. #3 progressive multiple myeloma with bony metastases #4 ventilator-dependent respiratory failure #5 anemia multifactorial Plan: #1 renal function stable. #2 ICU care #3 daily renal labs.
--- NOTE | 2023-01-18 16:28 | P.PN ---
Subjective Progress Note Date: 01/18/23 Principal diagnosis: Fever Patient is a 67-year-old male with a past medical history significant for multiple myeloma on chemotherapy patient also history of hyperlipidemia coronary disease PE and long term resident patient was brought into the ER for evaluation of fever , Patient also have an episode of vomiting and persistent in the left lower quadrant.Patient did have worsening of his respiratory status ended up getting intubated and the patient was transferred to the ICU 01/16/2023. On today's evaluation that is 01/18/2023 the patient continues to be afebrile, the patient is hemodynamically stable not requiring any pressor support and no significant purulent secretion through the ET has been reported patient FiO2 is currently stable at 40%, no other changes reported by the RN as well as at the bedside Objective - Vital Signs Vital signs: Vital Signs Temp 98.7 F 01/18/23 12:00 Pulse 96 01/18/23 15:00 Resp 14 01/18/23 15:00 BP 143/75 01/18/23 15:00 Pulse Ox 100 01/18/23 15:00 FiO2 40 01/18/23 15:24 Intake & Output 01/17/23 01/18/23 01/18/23 18:59 06:59 18:59 Intake Total 1337.261 980.276 769.184 Output Total 960 720 560 Balance 377.261 260.276 209.184 Weight 91.4 kg 97.9 kg Intake: IV 618 776 441 0.9 Sodium Chloride 190 640 170 Dextrose 5% in Water 1, 160 000 ml @ 80 mls/hr IV . [id number] [facility] with Sodium Bicarb (1 Meq/ml) 150 ml Rx#:[id number] Lacosamide IV 50 mg In 50 50 Sodium Chloride 0.9% 50 ml @ 100 mls/hr IVPB BID [facility] Rx#:[id number] Piperacillin-Tazobactam 3 100 100 100 .375 gm In Sodium Chloride 0.9% 100 ml @ 25 mls/hr IVPB Q8H [facility] Rx#: [id number] Pressure Bag (0.9 Sodium 18 36 21 Chloride) levETIRAcetam IV 500 mg 100 100 In Sodium Chloride 0.9% 100 ml @ 400 mls/hr IVPB Q12HR [facility] Rx#:[id number] Intake, IV Titration 139.261 204.276 28.184 Amount Dextrose 5% in Water 1, 80 000 ml @ 80 mls/hr IV . [id number] [facility] with Sodium Bicarb (1 Meq/ml) 150 ml Rx#:[id number] Norepinephrine 8 mg In 24.495 12.262 Sodium Chloride 0.9% 250 ml @ 0.03 MCG/KG/MIN 5. 306 mls/hr IV .Q24H [facility] Rx#:[id number] propofoL 1,000 mg In 59.261 179.781 15.922 Empty Bag 1 bag @ 15 MCG/ KG/MIN 7.961 mls/hr IV . [id number] [facility] Rx#:[id number] Tube Feeding 150 240 Blood Product 310 Rc As-1 Unit 310 [id number] Other 120 60 Output: Urine 960 720 560 Other: Voiding Method Indwelling Catheter Indwelling Catheter Indwelling Catheter ABP, PAP, CO, CI - Last Documented Arterial Blood Pressure 129/56 - Exam GENERAL DESCRIPTION: Elderly male intubated on the vent RESPIRATORY SYSTEM: Unlabored breathing , decreased breath sounds at bases HEART: S1 S2 regular rate and rhythm ABDOMEN: Soft , no tenderness EXTREMITIES: No edema feet - Labs CBC & Chem 7: 01/18/23 04:46 01/18/23 04:46 Labs: Abnormal Lab Results - Last 24 Hours (Table) 01/17/23 01/18/23 01/18/23 Range/Units 15:16 00:15 00:15 WBC 2.0 L 1.7 L (3.8-10.6) k/uL RBC 2.78 L 2.58 L (4.30-5.90) m/uL Hgb 8.3 L D 7.9 L (13.0-17.5) gm/dL Hct 24.3 L 22.5 L (39.0-53.0) % RDW 17.9 H 18.5 H (11.5-15.5) % Plt Count 51 L 50 L (150-450) k/uL Lymphocytes # (Manual) 0.34 L (1.0-4.8) k/uL ABG pO2 (83-108) mmHg ABG HCO3 (21-25) mmol/L ABG Total CO2 (19-24) mmol/L ABG O2 Saturation (94-97) % Potassium 3.4 L (3.5-5.1) mmol/L Chloride 111 H (98-107) mmol/L Creatinine 2.78 H (0.66-1.25) mg/dL Glucose (74-99) mg/dL POC Glucose (mg/dL) (70-110) mg/dL Calcium 6.7 L (8.4-10.2) mg/dL 01/18/23 01/18/23 01/18/23 Range/Units 04:46 04:46 05:53 WBC 2.0 L (3.8-10.6) k/uL RBC 2.67 L (4.30-5.90) m/uL Hgb 7.8 L (13.0-17.5) gm/dL Hct 23.4 L (39.0-53.0) % RDW 18.2 H (11.5-15.5) % Plt Count 49 L (150-450) k/uL Lymphocytes # (Manual) 0.40 L (1.0-4.8) k/uL ABG pO2 134 H (83-108) mmHg ABG HCO3 27 H (21-25) mmol/L ABG Total CO2 28 H (19-24) mmol/L ABG O2 Saturation 100.0 H (94-97) % Potassium (3.5-5.1) mmol/L Chloride 113 H (98-107) mmol/L Creatinine 2.73 H (0.66-1.25) mg/dL Glucose 100 H (74-99) mg/dL POC Glucose (mg/dL) (70-110) mg/dL Calcium 7.0 L (8.4-10.2) mg/dL 01/18/23 Range/Units 13:50 WBC (3.8-10.6) k/uL RBC (4.30-5.90) m/uL Hgb (13.0-17.5) gm/dL Hct (39.0-53.0) % RDW (11.5-15.5) % Plt Count (150-450) k/uL Lymphocytes # (Manual) (1.0-4.8) k/uL ABG pO2 (83-108) mmHg ABG HCO3 (21-25) mmol/L ABG Total CO2 (19-24) mmol/L ABG O2 Saturation (94-97) % Potassium (3.5-5.1) mmol/L Chloride (98-107) mmol/L Creatinine (0.66-1.25) mg/dL Glucose (74-99) mg/dL POC Glucose (mg/dL) 125 H (70-110) mg/dL Calcium (8.4-10.2) mg/dL Microbiology - Last 24 Hours (Table) 01/16/23 15:23 Gram Stain - Preliminary Sputum Sputum Culture - Preliminary Brisa albicans Assessment and Plan (1) Fever Current Visit: Yes Status: Acute Priority: High Code(s): R50.9 - FEVER, UNSPECIFIED SNOMED Code(s): 699641007 Plan: 1patient was in the hospital with a fever and did have an episode of vomiting patient was noted to be slightly tender in the left lower quadrant area concerning for possible intra-abdominal source possible diverticulitis as currently not behaving as pneumonia chest x-ray was negative urine is negative influenza RSV and COVID testing was negative 2-patient with elevated creatinine high risk of nephrotoxicity 3- CT of abdominal pelvis with oral contrast , did not show any acute process but rectal feceloma , pt did have multiple BM since CT 4-Patient did have worsening of his respiratory status requiring intubation sputum is currently growing Brisa which is likely colonizer with no MRSA we would discontinue vancomycin to decrease risk of nephrotoxicity may continue Zosyn questions concerned were answered Time with Patient: Less than 30
[2023-01-18 18:08] LABS: Glucose,Whole Blood 124 mg/dL (70-110)
[2023-01-18] MEDS: GABAPENTIN 300 MG CAP PO SCH (20:15)
[2023-01-18] MEDS: CALCIUM CARBONATE 500 MG CHEWABLE PO SCH (20:15)
[2023-01-19 00:07] LABS: Glucose,Whole Blood 112 mg/dL (70-110)
[2023-01-19] MEDS: PIPERACILLIN-TAZOBACTAM 3.375 GM in SODIUM CHLORIDE 0.9% 100 ML IVPB SCH ×3 (00:17→16:25)
--- NOTE | 2023-01-19 01:50 | P.PN ---
Subjective Progress Note Date: 01/17/23 Patient is a 67-year-old male with history of chronic kidney disease NKF stage IIIB with baseline creatinine around 1.7-1.9 mg/dL secondary to multiple myeloma. Patient has underlying multiple myeloma status post chemotherapy and stem cell transplantation and immunotherapy. Multiple myeloma has progressed with bone metastasis and treatment is currently on hold since November 2022 due to multiple recent admissions and history of fever. Patient had acute kidney injury,mostly prerenal, during his last hospitalization about 2 weeks ago. Serum creatinine had improved to about 3.1 from 6.7 at peak. Patient received IV hydration. Patient is admitted again with decreased oral intake, nausea and vomiting and increased weakness. Patient also had a fever of 10 2F. Patient had tremors/chills but no seizures according to his . Serum creatinine was 4.0 this admission. Patient has had good urine output. Currently with external catheter. 01/11/23. Patient seen and examined. Patient is lethargic. at the bedside. Hemoglobin this morning 6.3. Creatinine improved to 3.8 01/12. Patient seen and examined. Patient more confused according to nursing staff and . Able to give me time place and date of and president name. 01/13. Patient seen and examined. Hemoglobin this morning is 7.1, creatinine this morning is 3.6. Patient mental status waxes and wanes. 01/14. Patient seen and examined. Patient is very lethargic today, continues to be afebrile. Has poor appetite. at the bedside 01/15/2023 Patient is currently lying in the bed. Encephalopathic. Nonverbal. Could not follow commands. Otherwise patient has been afebrile. Saturating at 94% on room air. No cough or sputum production. Laboratory data showed WBC 2.1 hemoglobin 6.9 and platelets 33 Sodium 140 potassium 4.1 chloride 105 BUN 14.4 and creatinine 3.3. Albumin 2.0 Blood cultures negative so far. Patient is being continued on antibiotics in the form of Zosyn. Also on acyclovir IV. Patient is being continued on Keppra. Eliquis is on hold for possible lumbar puncture tomorrow. 01/16/2023 Patient remains confused and does not respond with verbal stimuli. Patient is having difficulty clearing secretions in the throat. Patient had attempted lumbar puncture today but could not be completed. Patient received platelet transfusion. Patient became more lethargic and unresponsive today afternoon. Rapid response team was called and critical care team was consulted. Patient was intubated for airway protection. Chest x-ray showed no acute cardiopulmonary process. Patient remains on antibiotics in the form of Zosyn. Also on acyclovir. Blood cultures have been negative. Laboratory data showed WBC 2.1 hemoglobin 7.9 and platelets 27 ABG showed pH 7.4 PCO2 39 and PO2 71. Sodium 143 potassium 3.0 chloride 104 bicarb is 23.9 BUN 10 and creatinine 2.9 today. Calcium level 8.4. CRP 7.7. HSV serology negative. Neurology and oncology is on board. 01/17/2023 Patient remains on mechanical ventilator. Currently on propofol. Chest x-ray showed lower lobe pulmonary infiltrates bilaterally. Suspect underlying aspiration pneumonia. Currently on antibiotics of vancomycin and Zosyn and also on acyclovir for possible encephalitis. Lumbar puncture was attempted but unable to complete yesterday. Laboratory data showed WBC 2.0, hemoglobin 8.3 and platelets 51 sodium 143 potassium 3.3 chloride 109 bicarb is 29 BUN 9 and creatinine 2.71. Nephrology and pulmonary is on board.. Discussed with his at bedside in detail. Current medications reviewed. REVIEW OF SYSTEMS: Cannot be obtained because of patient's lethargy Objective - Vital Signs Vital signs: Vital Signs Temp 97.6 F 01/17/23 20:00 Pulse 98 01/17/23 21:00 Resp 14 01/17/23 21:00 BP 118/65 01/17/23 21:00 Pulse Ox 99 01/17/23 21:00 FiO2 40 01/17/23 20:00 Intake & Output 01/17/23 01/17/23 01/18/23 06:59 18:59 06:59 Intake Total 1520.930 0358.261 135.337 Output Total 1095 960 95 Balance 589.582 377.261 40.337 Weight 91.4 kg 91.4 kg Intake: IV 618 69 0.9 Sodium Chloride 190 60 Dextrose 5% in Water 1, 160 000 ml @ 80 mls/hr IV . [id number] [facility] with Sodium Bicarb (1 Meq/ml) 150 ml Rx#:[id number] Lacosamide IV 50 mg In 50 Sodium Chloride 0.9% 50 ml @ 100 mls/hr IVPB BID [facility] Rx#:[id number] Piperacillin-Tazobactam 3 100 .375 gm In Sodium Chloride 0.9% 100 ml @ 25 mls/hr IVPB Q8H [facility] Rx#: [id number] Pressure Bag (0.9 Sodium 18 9 Chloride) levETIRAcetam IV 500 mg 100 In Sodium Chloride 0.9% 100 ml @ 400 mls/hr IVPB Q12HR [facility] Rx#:[id number] Intake, IV Titration 1122.582 139.261 66.337 Amount Dextrose 5% in Water 1, 880 80 000 ml @ 80 mls/hr IV . [id number] [facility] with Sodium Bicarb (1 Meq/ml) 150 ml Rx#:[id number] propofoL 1,000 mg In 242.582 59.261 66.337 Empty Bag 1 bag @ 15 MCG/ KG/MIN 7.961 mls/hr IV . [id number] [facility] Rx#:[id number] Tube Feeding 150 Blood Product 562 310 Ffp 24 Pher Acda Unit 221 [id number] Platelet Pheresis Pas 341 Psoralen Unit [id number] Rc As-1 Unit 310 [id number] Other 120 Output: Urine 1095 960 95 Other: Voiding Method Indwelling Catheter Indwelling Catheter ABP, PAP, CO, CI - Last Documented Arterial Blood Pressure 101/43 - Exam PHYSICAL EXAMINATION: GENERAL: The patient is on vent.. Well developed, well nourished. HEENT: Pupils are round and equally reacting to light. EOMI. No scleral icterus. No conjunctival pallor. Normocephalic, atraumatic. No pharyngeal erythema. No t hyromegaly. CARDIOVASCULAR: S1 and S2 present. No murmurs, rubs, or gallops. PULMONARY: Chest is clear to auscultation, no wheezing or crackles. ABDOMEN: Soft, nontender, nondistended, normoactive bowel sounds. No palpable organomegaly. MUSCULOSKELETAL: No joint swelling or deformity. EXTREMITIES: No cyanosis, clubbing, or pedal edema. NEUROLOGICAL: Gross neurological examination did not reveal any focal deficits. SKIN: No rashes. - Labs CBC & Chem 7: 01/18/23 04:46 01/18/23 04:46 Labs: Abnormal Lab Results - Last 24 Hours (Table) 01/15/23 01/17/23 01/17/23 Range/Units 11:52 04:38 04:38 WBC 1.4 L* (3.8-10.6) k/uL RBC 2.19 L (4.30-5.90) m/uL Hgb 6.8 L* (13.0-17.5) gm/dL Hct 19.4 L* (39.0-53.0) % RDW 18.0 H (11.5-15.5) % Plt Count 55 L (150-450) k/uL Neutrophils # 1.0 L (1.3-7.7) k/uL Lymphocytes # 0.2 L (1.0-4.8) k/uL ABG pH (7.35-7.45) ABG pO2 (83-108) mmHg ABG HCO3 (21-25) mmol/L ABG Total CO2 (19-24) mmol/L ABG O2 Saturation (94-97) % Potassium 3.3 L (3.5-5.1) mmol/L Chloride 109 H (98-107) mmol/L Creatinine 2.71 H (0.66-1.25) mg/dL Calcium 7.1 L (8.4-10.2) mg/dL Crossmatch See Detail 01/17/23 01/17/23 Range/Units 05:45 15:16 WBC 2.0 L (3.8-10.6) k/uL RBC 2.78 L (4.30-5.90) m/uL Hgb 8.3 L D (13.0-17.5) gm/dL Hct 24.3 L (39.0-53.0) % RDW 17.9 H (11.5-15.5) % Plt Count 51 L (150-450) k/uL Neutrophils # (1.3-7.7) k/uL Lymphocytes # (1.0-4.8) k/uL ABG pH 7.51 H (7.35-7.45) ABG pO2 160 H (83-108) mmHg ABG HCO3 29 H (21-25) mmol/L ABG Total CO2 30 H (19-24) mmol/L ABG O2 Saturation 99.9 H (94-97) % Potassium (3.5-5.1) mmol/L Chloride (98-107) mmol/L Creatinine (0.66-1.25) mg/dL Calcium (8.4-10.2) mg/dL Crossmatch Microbiology - Last 24 Hours (Table) 01/16/23 15:23 Gram Stain - Preliminary Sputum Sputum Culture - Preliminary Assessment and Plan Assessment: Altered mental status likely due to metabolic encephalopathy.Possible encephalitis. Patient was intubated for airway protection. Fever of unknown origin. History of posterior reversible encephalopathy syndrome on MRI of the brain on 12/29/2022 History of multiple myeloma underwent chemotherapy Pancytopenia due to antineoplastic chemotherapy T12 fracture and multiple vertebral fracture due to multiple myeloma Acute kidney injury, prerenal. Start IV fluids CK D stage IV IIIB to 4 with serum creatinine at 2.3-2.4 mg/dL as of November 2022. Hypercalcemia History of pulmonary embolism. On Eliquis Plan; Patient is currently on mechanical ventilator. On propofol. Bicarb drip has been discontinued. On antibiotics in the form of Zosyn and also on acyclovir. Vancomycin was added. Continue with Keppra due to history of seizures and twitching movements. Eliquis is on hold for lumbar puncture. LP was attempted but could not be completed. Blood cultures have been negative so far. Follow-up on hematology oncology recommendations, hematology plan for patient to undergo salvage treatment for additional disease control prior to undergoing CAR-T -Transfuse for hemoglobin less than 7, Will transfuse 1 unit of packed red blood cells his hemoglobin is 6.3 -Transfuse for platelets less than or equal to 10,[address] head ordered negative for acute intracranial process. Neurology evaluated the patient recommended continuing Keppra and added Vimpat, EEG showed moderate to severe encephalopathy For hypercalcemia pamidronate was given by hematology Replace electrolytes. Follow-up in nephrology recommendations Follow-up in ID recs Time with Patient: Greater than 30
--- NOTE | 2023-01-19 01:53 | P.PN ---
Subjective Progress Note Date: 01/18/23 Patient is a 67-year-old male with history of chronic kidney disease NKF stage IIIB with baseline creatinine around 1.7-1.9 mg/dL secondary to multiple myeloma. Patient has underlying multiple myeloma status post chemotherapy and stem cell transplantation and immunotherapy. Multiple myeloma has progressed with bone metastasis and treatment is currently on hold since November 2022 due to multiple recent admissions and history of fever. Patient had acute kidney injury,mostly prerenal, during his last hospitalization about 2 weeks ago. Serum creatinine had improved to about 3.1 from 6.7 at peak. Patient received IV hydration. Patient is admitted again with decreased oral intake, nausea and vomiting and increased weakness. Patient also had a fever of 10 2F. Patient had tremors/chills but no seizures according to his . Serum creatinine was 4.0 this admission. Patient has had good urine output. Currently with external catheter. 01/11/23. Patient seen and examined. Patient is lethargic. at the bedside. Hemoglobin this morning 6.3. Creatinine improved to 3.8 01/12. Patient seen and examined. Patient more confused according to nursing staff and . Able to give me time place and date of and president name. 01/13. Patient seen and examined. Hemoglobin this morning is 7.1, creatinine this morning is 3.6. Patient mental status waxes and wanes. 01/14. Patient seen and examined. Patient is very lethargic today, continues to be afebrile. Has poor appetite. at the bedside 01/15/2023 Patient is currently lying in the bed. Encephalopathic. Nonverbal. Could not follow commands. Otherwise patient has been afebrile. Saturating at 94% on room air. No cough or sputum production. Laboratory data showed WBC 2.1 hemoglobin 6.9 and platelets 33 Sodium 140 potassium 4.1 chloride 105 BUN 14.4 and creatinine 3.3. Albumin 2.0 Blood cultures negative so far. Patient is being continued on antibiotics in the form of Zosyn. Also on acyclovir IV. Patient is being continued on Keppra. Eliquis is on hold for possible lumbar puncture tomorrow. 01/16/2023 Patient remains confused and does not respond with verbal stimuli. Patient is having difficulty clearing secretions in the throat. Patient had attempted lumbar puncture today but could not be completed. Patient received platelet transfusion. Patient became more lethargic and unresponsive today afternoon. Rapid response team was called and critical care team was consulted. Patient was intubated for airway protection. Chest x-ray showed no acute cardiopulmonary process. Patient remains on antibiotics in the form of Zosyn. Also on acyclovir. Blood cultures have been negative. Laboratory data showed WBC 2.1 hemoglobin 7.9 and platelets 27 ABG showed pH 7.4 PCO2 39 and PO2 71. Sodium 143 potassium 3.0 chloride 104 bicarb is 23.9 BUN 10 and creatinine 2.9 today. Calcium level 8.4. CRP 7.7. HSV serology negative. Neurology and oncology is on board. 01/17/2023 Patient remains on mechanical ventilator. Currently on propofol. Chest x-ray showed lower lobe pulmonary infiltrates bilaterally. Suspect underlying aspiration pneumonia. Currently on antibiotics of vancomycin and Zosyn and also on acyclovir for possible encephalitis. Lumbar puncture was attempted but unable to complete yesterday. Laboratory data showed WBC 2.0, hemoglobin 8.3 and platelets 51 sodium 143 potassium 3.3 chloride 109 bicarb is 29 BUN 9 and creatinine 2.71. Nephrology and pulmonary is on board.. Discussed with his at bedside in detail. 01/18/2023 Patient remains in the MICU. Did have sedation today. Otherwise patient is unable to respond with verbal stimuli and grimaces only to with deep painful stimulation. EEG showed moderate to severe encephalopathy without epileptic foci. Planning to do LP under anesthesia. Patient remains on antibiotics and also on acyclovir.Sputum culture showed Ca ndida albicans. Laboratory showed WBC 2.0 hemoglobin 7.8 and platelets 49 sodium 144 potassium 4.3 chloride 103 bicarb is 24 BUN 9 and creatinine 2.73. Magnesium 2.1. Discussed with the family at bedside in detail. Pulmonary and nephrology is on borad. Current medications reviewed. REVIEW OF SYSTEMS: Cannot be obtained because of patient's lethargy Objective - Vital Signs Vital signs: Vital Signs Temp 98.7 F 01/18/23 20:00 Pulse 102 H 01/18/23 20:00 Resp 16 01/18/23 20:00 BP 140/68 01/18/23 20:00 Pulse Ox 100 01/18/23 20:00 FiO2 40 01/18/23 20:00 Intake & Output 01/18/23 01/18/23 01/19/23 06:59 18:59 06:59 Intake Total 143.165 4824.184 176 Output Total 720 985 210 Balance 260.276 509.184 -34 Weight 97.9 kg Intake: IV 776 886 46 0.9 Sodium Chloride 640 250 40 Acyclovir Sodium 900 mg 250 In Sodium Chloride 0.9% 250 ml @ 268 mls/hr IVPB Q12H [facility] Rx#:[id number] Lacosamide IV 50 mg In 50 Sodium Chloride 0.9% 50 ml @ 100 mls/hr IVPB BID [facility] Rx#:[id number] Piperacillin-Tazobactam 3 100 200 .375 gm In Sodium Chloride 0.9% 100 ml @ 25 mls/hr IVPB Q8H [facility] Rx#: [id number] Pressure Bag (0.9 Sodium 36 36 6 Chloride) levETIRAcetam IV 500 mg 100 In Sodium Chloride 0.9% 100 ml @ 400 mls/hr IVPB Q12HR [facility] Rx#:[id number] Intake, IV Titration 204.276 28.184 Amount Norepinephrine 8 mg In 24.495 12.262 Sodium Chloride 0.9% 250 ml @ 0.03 MCG/KG/MIN 5. 306 mls/hr IV .Q24H [facility] Rx#:[id number] propofoL 1,000 mg In 179.781 15.922 Empty Bag 1 bag @ 15 MCG/ KG/MIN 7.961 mls/hr IV . [id number] [facility] Rx#:[id number] Tube Feeding 490 100 Other 90 30 Output: Urine 720 985 210 Other: Voiding Method Indwelling Catheter Indwelling Catheter ABP, PAP, CO, CI - Last Documented Arterial Blood Pressure 142/64 - Exam PHYSICAL EXAMINATION: GENERAL: The patient is on vent.. Well developed, well nourished. HEENT: Pupils are round and equally reacting to light. EOMI. No scleral icterus. No conjunctival pallor. Normocephalic, atraumatic. No pharyngeal erythema. No thyromegaly. CARDIOVASCULAR: S1 and S2 present. No murmurs, rubs, or gallops. PULMONARY: Chest is clear to auscultation, no wheezing or crackles. ABDOMEN: Soft, nontender, nondistended, normoactive bowel sounds. No palpable organomegaly. MUSCULOSKELETAL: No joint swelling or deformity. EXTREMITIES: No cyanosis, clubbing, or pedal edema. NEUROLOGICAL: Gross neurological examination did not reveal any focal deficits. SKIN: No rashes. - Labs CBC & Chem 7: 01/18/23 04:46 01/18/23 04:46 Labs: Abnormal Lab Results - Last 24 Hours (Table) 01/18/23 01/18/23 01/18/23 Range/Units 00:15 00:15 04:46 WBC 1.7 L 2.0 L (3.8-10.6) k/uL RBC 2.58 L 2.67 L (4.30-5.90) m/uL Hgb 7.9 L 7.8 L (13.0-17.5) gm/dL Hct 22.5 L 23.4 L (39.0-53.0) % RDW 18.5 H 18.2 H (11.5-15.5) % Plt Count 50 L 49 L (150-450) k/uL Lymphocytes # (Manual) 0.34 L 0.40 L (1.0-4.8) k/uL ABG pO2 (83-108) mmHg ABG HCO3 (21-25) mmol/L ABG Total CO2 (19-24) mmol/L ABG O2 Saturation (94-97) % Potassium 3.4 L (3.5-5.1) mmol/L Chloride 111 H (98-107) mmol/L Creatinine 2.78 H (0.66-1.25) mg/dL Glucose (74-99) mg/dL POC Glucose (mg/dL) (70-110) mg/dL Calcium 6.7 L (8.4-10.2) mg/dL 01/18/23 01/18/23 01/18/23 Range/Units 04:46 05:53 13:50 WBC (3.8-10.6) k/uL RBC (4.30-5.90) m/uL Hgb (13.0-17.5) gm/dL Hct (39.0-53.0) % RDW (11.5-15.5) % Plt Count (150-450) k/uL Lymphocytes # (Manual) (1.0-4.8) k/uL ABG pO2 134 H (83-108) mmHg ABG HCO3 27 H (21-25) mmol/L ABG Total CO2 28 H (19-24) mmol/L ABG O2 Saturation 100.0 H (94-97) % Potassium (3.5-5.1) mmol/L Chloride 113 H (98-107) mmol/L Creatinine 2.73 H (0.66-1.25) mg/dL Glucose 100 H (74-99) mg/dL POC Glucose (mg/dL) 125 H (70-110) mg/dL Calcium 7.0 L (8.4-10.2) mg/dL 01/18/23 Range/Units 18:08 WBC (3.8-10.6) k/uL RBC (4.30-5.90) m/uL Hgb (13.0-17.5) gm/dL Hct (39.0-53.0) % RDW (11.5-15.5) % Plt Count (150-450) k/uL Lymphocytes # (Manual) (1.0-4.8) k/uL ABG pO2 (83-108) mmHg ABG HCO3 (21-25) mmol/L ABG Total CO2 (19-24) mmol/L ABG O2 Saturation (94-97) % Potassium (3.5-5.1) mmol/L Chloride (98-107) mmol/L Creatinine (0.66-1.25) mg/dL Glucose (74-99) mg/dL POC Glucose (mg/dL) 124 H (70-110) mg/dL Calcium (8.4-10.2) mg/dL Microbiology - Last 24 Hours (Table) 01/16/23 15:23 Gram Stain - Preliminary Sputum Sputum Culture - Preliminary Brisa albicans Assessment and Plan Assessment: Altered mental status likely due to metabolic encephalopathy. Possible encephalitis. Patient was intubated for airway protection. Fever of unknown origin. History of posterior reversible encephalopathy syndrome on MRI of the brain on 12/29/2022 History of multiple myeloma underwent chemotherapy Pancytopenia due to antineoplastic chemotherapy T12 fracture and multiple vertebral fracture due to multiple myeloma Acute kidney injury, prerenal. Start IV fluids CK D stage IV IIIB to 4 with serum creatinine at 2.3-2.4 mg/dL as of November 2022. Hypercalcemia History of pulmonary embolism. On Eliquis Plan; Patient is currently on mechanical ventilator. off propofol. Bicarb drip has been discontinued. On antibiotics in the form of Zosyn and also on acyclovir. Vancomycin was added. Continue with Keppra due to history of seizures and twitching movements. Eliquis is on hold for lumbar puncture. LP was attempted but could not be completed. Blood cultures have been negative so far. Follow-up on hematology oncology recommendations, hematology plan for patient to undergo salvage treatment for additional disease control prior to undergoing CAR-T -Transfuse for hemoglobin less than 7, Will transfuse 1 unit of packed red blood cells his hemoglobin is 6.3 -Transfuse for platelets less than or equal to 10,[address] head ordered negative for acute intracranial process. Neurology evaluated the patient recommended continuing Keppra and added Vimpat, EEG showed moderate to severe encephalopathy For hypercalcemia pamidronate was given by hematology Replace electrolytes. Follow-up in nephrology recommendations Follow-up in ID recs Time with Patient: Greater than 30
[2023-01-19] MEDS: ACYCLOVIR SODIUM 900 MG in SODIUM CHLORIDE 0.9% 250 ML IVPB SCH ×2 (04:32→16:25)
[2023-01-19 04:35] LABS: Herpes simplex I and/or II IgM 0.02 INDEX (<=0.90); Herpes simplex IgG I Ab 0.07 (< or = 0.90); Herpes simplex IgG II Ab 0.05 (< or = 0.90)
[2023-01-19 06:11] LABS: Glucose,Whole Blood 124 mg/dL (70-110)
[2023-01-19 06:21] LABS: Anisocytosis Slight; HCT 20.4 % (39.0-53.0); MCH 29.7 pg (25.0-35.0); MCHC 33.5 g/dL (31.0-37.0); MCV 88.7 fL (80.0-100.0); Mean Platelet Volume 9.8; Poikilocytosis Slight; RBC 2.31 m/uL (4.30-5.90); RDW 18.5 % (11.5-15.5); WBC 2.3 k/uL (3.8-10.6)
[2023-01-19 06:25] LABS: HGB 6.8 gm/dL (13.0-17.5); Platelet Count 35 k/uL (150-450)
[2023-01-19] MEDS: NOREPINEPHRINE 8 MG in SODIUM CHLORIDE 0.9% 250 ML IV SCH (06:37)
[2023-01-19 06:38] LABS: ABG Base Excess 0.8 mmol/L; ABG HCO3 25 mmol/L (21-25); ABG PCO2 36 mmHg (35-45); ABG PH 7.45 (7.35-7.45); ABG PO2 138 mmHg (83-108); ABG TCO2 26 mmol/L (19-24); Allen Test Performed? Yes
[2023-01-19 06:48] LABS: Band Neutrophils % 14 %; Eosinophils # (M) 0.23 k/uL (0-0.7); Lymphocytes # (M) 0.28 k/uL (1.0-4.8); Metamyelocytes # (M) 0.05 k/uL (0); Metamyelocytes % 2 %; Monocytes # (M) 0.14 k/uL (0-1.0); Neutrophils % (M) 56 %; Nucleated Red Blood Cells 0 /100 WBC (0-0); Total Cells Counted 200
[2023-01-19 06:59] LABS: Calcium 7.3 mg/dL (8.4-10.2); Magnesium 1.8 mg/dL (1.6-2.3); Potassium 3.6 mmol/L (3.5-5.1)
[2023-01-19] MEDS ORDERED: POTASSIUM BICARBONATE/CIT AC 20 MEQ TABLET.EFF NG-TUBE SCH (08:00)
--- NOTE | 2023-01-19 08:47 | XR ---
EXAMINATION TYPE: XR chest 1V portable DATE OF EXAM: 01/19/2023 COMPARISON: 01/18/2023 HISTORY: Tube placement TECHNIQUE: Single frontal view of the chest is obtained. FINDINGS: Low lung volumes redemonstrated. Mild cardiomegaly redemonstrated with central vascular co ngestion and bibasilar opacities again seen. Osseous structures demonstrate hypertrophic and degenera tive change with age-indeterminate compression fractures. IMPRESSION: Correlate for CHF otherwise consider pneumonia. Findings stable.
[2023-01-19] MEDS: levETIRAcetam IV 500 MG in SODIUM CHLORIDE 0.9% 100 ML IVPB SCH ×2 (08:48→21:00)
[2023-01-19] MEDS: CHLORHEXIDINE GLUCONATE 15 ML CUP MUCOUS MEM SCH ×2 (08:50→21:01)
[2023-01-19] MEDS: CHOLECALCIFEROL 25 MCG (1000 IU) TABLET PO SCH (08:51)
[2023-01-19] MEDS: SODIUM BICARBONATE TAB 650 MG TAB PO SCH ×3 (08:51→21:01)
[2023-01-19] MEDS: LACOSAMIDE IV 50 MG in SODIUM CHLORIDE 0.9% 50 ML IVPB SCH ×2 (09:25→21:28)
--- NOTE | 2023-01-19 10:20 | P.PN ---
Subjective Patient is seen in follow-up for acute kidney injury on chronic kidney disease. Renal function slightly worse. Receiving tube feeds. Hemoglobin 6.8 and is awaiting blood transfusion. Off IV fluids. Intubated. Off sedation but still not arousable. Vital signs are stable. HEENT: Intubated. LUNGS: No audible rhonchi or wheezes. HEART: Tachycardic. ABDOMEN: No distention. EXTREMITITES: No edema. Objective - Vital Signs Vital signs: Vital Signs Temp 98.2 F 01/19/23 08:00 Pulse 106 H 01/19/23 08:00 Resp 18 01/19/23 08:00 BP 135/70 01/19/23 08:00 Pulse Ox 99 01/19/23 08:00 FiO2 40 01/19/23 08:45 Intake & Output 01/18/23 01/19/23 01/19/23 18:59 06:59 18:59 Intake Total 6772.678 6204 364 Output Total 985 1000 230 Balance 509.184 516 134 Weight 96.3 kg Intake: IV 886 826 184 0.9 Sodium Chloride 250 240 50 Acyclovir Sodium 900 mg 250 250 In Sodium Chloride 0.9% 250 ml @ 268 mls/hr IVPB Q12H [facility] Rx#:[id number] Lacosamide IV 50 mg In 50 100 Sodium Chloride 0.9% 50 ml @ 100 mls/hr IVPB BID [facility] Rx#:[id number] Piperacillin-Tazobactam 3 200 100 25 .375 gm In Sodium Chloride 0.9% 100 ml @ 25 mls/hr IVPB Q8H [facility] Rx#: [id number] Pressure Bag (0.9 Sodium 36 36 9 Chloride) levETIRAcetam IV 500 mg 100 100 100 In Sodium Chloride 0.9% 100 ml @ 400 mls/hr IVPB Q12HR [facility] Rx#:[id number] Intake, IV Titration 28.184 Amount Norepinephrine 8 mg In 12.262 Sodium Chloride 0.9% 250 ml @ 0.03 MCG/KG/MIN 5. 306 mls/hr IV .Q24H [facility] Rx#:[id number] propofoL 1,000 mg In 15.922 Empty Bag 1 bag @ 15 MCG/ KG/MIN 7.961 mls/hr IV . [id number] [facility] Rx#:[id number] Tube Feeding 490 600 150 Other 90 90 30 Output: Urine 985 1000 230 Other: Voiding Method Indwelling Catheter Indwelling Catheter ABP, PAP, CO, CI - Last Documented Arterial Blood Pressure 164/75 - Labs CBC & Chem 7: 01/19/23 05:37 01/19/23 05:37 Labs: Abnormal Lab Results - Last 24 Hours (Table) 01/18/23 01/18/23 01/19/23 Range/Units 13:50 18:08 00:06 WBC (3.8-10.6) k/uL RBC (4.30-5.90) m/uL Hgb (13.0-17.5) gm/dL Hct (39.0-53.0) % RDW (11.5-15.5) % Plt Count (150-450) k/uL Lymphocytes # (Manual) (1.0-4.8) k/uL Metamyelocytes # (Man) (0) k/uL ABG pO2 (83-108) mmHg ABG Total CO2 (19-24) mmol/L ABG O2 Saturation (94-97) % Sodium (137-145) mmol/L Chloride (98-107) mmol/L Creatinine (0.66-1.25) mg/dL Glucose (74-99) mg/dL POC Glucose (mg/dL) 125 H 124 H 112 H (70-110) mg/dL Calcium (8.4-10.2) mg/dL 01/19/23 01/19/23 01/19/23 Range/Units 05:37 05:37 06:10 WBC 2.3 L (3.8-10.6) k/uL RBC 2.31 L (4.30-5.90) m/uL Hgb 6.8 L* (13.0-17.5) gm/dL Hct 20.4 L (39.0-53.0) % RDW 18.5 H (11.5-15.5) % Plt Count 35 L (150-450) k/uL Lymphocytes # (Manual) 0.28 L (1.0-4.8) k/uL Metamyelocytes # (Man) 0.05 H (0) k/uL ABG pO2 (83-108) mmHg ABG Total CO2 (19-24) mmol/L ABG O2 Saturation (94-97) % Sodium 146 H (137-145) mmol/L Chloride 115 H (98-107) mmol/L Creatinine 2.96 H (0.66-1.25) mg/dL Glucose 117 H (74-99) mg/dL POC Glucose (mg/dL) 124 H (70-110) mg/dL Calcium 7.3 L (8.4-10.2) mg/dL 01/19/23 Range/Units 06:34 WBC (3.8-10.6) k/uL RBC (4.30-5.90) m/uL Hgb (13.0-17.5) gm/dL Hct (39.0-53.0) % RDW (11.5-15.5) % Plt Count (150-450) k/uL Lymphocytes # (Manual) (1.0-4.8) k/uL Metamyelocytes # (Man) (0) k/uL ABG pO2 138 H (83-108) mmHg ABG Total CO2 26 H (19-24) mmol/L ABG O2 Saturation 100.0 H (94-97) % Sodium (137-145) mmol/L Chloride (98-107) mmol/L Creatinine (0.66-1.25) mg/dL Glucose (74-99) mg/dL POC Glucose (mg/dL) (70-110) mg/dL Calcium (8.4-10.2) mg/dL Microbiology - Last 24 Hours (Table) 01/16/23 15:23 Gram Stain - Preliminary Sputum Sputum Culture - Preliminary Brisa albicans Assessment and Plan Plan: Assessment: 1. Acute kidney injury mostly prerenal improved with IV hydration. Creatinine 2.96 today. Nonoliguric. 2. 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 3. Multiple myeloma with bony metastasis. 4. Hypernatremia from lack of oral water intake. 5. Anemia. Multifactorial. Component of myeloma and chronic kidney disease. 6. Metabolic encephalopathy. Concern for encephalitis. ID and neurology following. Plan: Add water flushes 300 mL every 6 hours with tube feeds. Scheduled to receive a unit of blood today. Avoid nephrotoxins. Continue to monitor renal function and urine output. Monitor vancomycin level. Dose to be adjusted for renal function.
[2023-01-19 11:39] LABS: Glucose,Whole Blood 138 mg/dL (70-110)
[2023-01-19 12:23] LABS: Glucose,Whole Blood 134 mg/dL (70-110)
--- NOTE | 2023-01-19 13:28 | P.PN ---
Subjective Progress Note Date: 01/19/23 Principal diagnosis: Encephalopathy. Multiple myeloma, progressive. Seen in ICU, sedated, mechanically ventilated. No acute distress seen, no family was at the bedside this morning Objective - Vital Signs Vital signs: Vital Signs Temp 99.3 F 01/19/23 11:23 Pulse 99 01/19/23 12:00 Resp 18 01/19/23 12:00 BP 152/66 01/19/23 11:23 Pulse Ox 99 01/19/23 12:00 FiO2 35 01/19/23 12:00 Intake & Output 01/18/23 01/19/23 01/19/23 18:59 06:59 18:59 Intake Total 1487.805 0817 746 Output Total 985 1000 610 Balance 509.184 516 136 Weight 96.3 kg Intake: IV 886 826 398 0.9 Sodium Chloride 250 240 80 Acyclovir Sodium 900 mg 250 250 In Sodium Chloride 0.9% 250 ml @ 268 mls/hr IVPB Q12H [facility] Rx#:[id number] Lacosamide IV 50 mg In 50 100 100 Sodium Chloride 0.9% 50 ml @ 100 mls/hr IVPB BID [facility]NA[facility] Rx#:[id number] Piperacillin-Tazobactam 3 200 100 100 .375 gm In Sodium Chloride 0.9% 100 ml @ 25 mls/hr IVPB Q8H [facility] Rx#: [id number] Pressure Bag (0.9 Sodium 36 36 18 Chloride) levETIRAcetam IV 500 mg 100 100 100 In Sodium Chloride 0.9% 100 ml @ 400 mls/hr IVPB Q12HR [facility] Rx#:[id number] Intake, IV Titration 28.184 Amount Norepinephrine 8 mg In 12.262 Sodium Chloride 0.9% 250 ml @ 0.03 MCG/KG/MIN 5. 306 mls/hr IV .Q24H [facility] Rx#:[id number] propofoL 1,000 mg In 15.922 Empty Bag 1 bag @ 15 MCG/ KG/MIN 7.961 mls/hr IV . [id number] [facility] Rx#:[id number] Tube Feeding 490 600 318 Blood Product 0 Unit 0 Other 90 90 30 Output: Urine 985 1000 610 Other: Voiding Method Indwelling Catheter Indwelling Catheter Indwelling Catheter ABP, PAP, CO, CI - Last Documented Arterial Blood Pressure 158/68 - Constitutional General appearance: Present: average body habitus, no acute distress - EENT Eyes: Present: anicteric sclerae - Respiratory Respiratory: bilateral: CTA (On vent) - Cardiovascular Details: Tachycardia, regular rhythm Abnormal Heart Sounds: Absent: systolic murmur, diastolic murmur, rub, S3 Gallop, S4 Gallop, click, other - Peripheral edema leg Peripheral Edema: bilateral: Trace - Gastrointestinal General gastrointestinal: Present: soft - Integumentary Integumentary: Present: pale - Neurologic Neurologic: Absent: CNII-XII intact, focal deficits - Psychiatric Psychiatric: Absent: A&O x's 3, appropriate affect, intact judgment & insight - Labs CBC & Chem 7: 01/19/23 05:37 01/19/23 05:37 Labs: Abnormal Lab Results - Last 24 Hours (Table) 01/18/23 01/18/23 01/19/23 Range/Units 13:50 18:08 00:06 WBC (3.8-10.6) k/uL RBC (4.30-5.90) m/uL Hgb (13.0-17.5) gm/dL Hct (39.0-53.0) % RDW (11.5-15.5) % Plt Count (150-450) k/uL Lymphocytes # (Manual) (1.0-4.8) k/uL Metamyelocytes # (Man) (0) k/uL ABG pO2 (83-108) mmHg ABG Total CO2 (19-24) mmol/L ABG O2 Saturation (94-97) % Sodium (137-145) mmol/L Chloride (98-107) mmol/L Creatinine (0.66-1.25) mg/dL Glucose (74-99) mg/dL POC Glucose (mg/dL) 125 H 124 H 112 H (70-110) mg/dL Calcium (8.4-10.2) mg/dL Crossmatch 01/19/23 01/19/23 01/19/23 Range/Units 05:37 05:37 06:10 WBC 2.3 L (3.8-10.6) k/uL RBC 2.31 L (4.30-5.90) m/uL Hgb 6.8 L* (13.0-17.5) gm/dL Hct 20.4 L (39.0-53.0) % RDW 18.5 H (11.5-15.5) % Plt Count 35 L (150-450) k/uL Lymphocytes # (Manual) 0.28 L (1.0-4.8) k/uL Metamyelocytes # (Man) 0.05 H (0) k/uL ABG pO2 (83-108) mmHg ABG Total CO2 (19-24) mmol/L ABG O2 Saturation (94-97) % Sodium 146 H (137-145) mmol/L Chloride 115 H (98-107) mmol/L Creatinine 2.96 H (0.66-1.25) mg/dL Glucose 117 H (74-99) mg/dL POC Glucose (mg/dL) 124 H (70-110) mg/dL Calcium 7.3 L (8.4-10.2) mg/dL Crossmatch 01/19/23 01/19/23 01/19/23 Range/Units 06:34 06:59 11:38 WBC (3.8-10.6) k/uL RBC (4.30-5.90) m/uL Hgb (13.0-17.5) gm/dL Hct (39.0-53.0) % RDW (11.5-15.5) % Plt Count (150-450) k/uL Lymphocytes # (Manual) (1.0-4.8) k/uL Metamyelocytes # (Man) (0) k/uL ABG pO2 138 H (83-108) mmHg ABG Total CO2 26 H (19-24) mmol/L ABG O2 Saturation 100.0 H (94-97) % Sodium (137-145) mmol/L Chloride (98-107) mmol/L Creatinine (0.66-1.25) mg/dL Glucose (74-99) mg/dL POC Glucose (mg/dL) 138 H (70-110) mg/dL Calcium (8.4-10.2) mg/dL Crossmatch See Detail 01/19/23 Range/Units 12:19 WBC (3.8-10.6) k/uL RBC (4.30-5.90) m/uL Hgb (13.0-17.5) gm/dL Hct (39.0-53.0) % RDW (11.5-15.5) % Plt Count (150-450) k/uL Lymphocytes # (Manual) (1.0-4.8) k/uL Metamyelocytes # (Man) (0) k/uL ABG pO2 (83-108) mmHg ABG Total CO2 (19-24) mmol/L ABG O2 Saturation (94-97) % Sodium (137-145) mmol/L Chloride (98-107) mmol/L Creatinine (0.66-1.25) mg/dL Glucose (74-99) mg/dL POC Glucose (mg/dL) 134 H (70-110) mg/dL Calcium (8.4-10.2) mg/dL Crossmatch Microbiology - Last 24 Hours (Table) 01/16/23 15:23 Gram Stain - Final Sputum Sputum Culture - Final Brisa albicans Assessment and Plan (1) Altered mental status Current Visit: Yes Status: Acute Code(s): R41.82 - ALTERED MENTAL STATUS, UNSPECIFIED SNOMED Code(s): 736857298 (2) Fever of unknown origin Current Visit: Yes Status: Acute Priority: High Code(s): R50.9 - FEVER, UNSPECIFIED SNOMED Code(s): 5376563 (3) Pancytopenia Current Visit: Yes Status: Acute Priority: High Code(s): D61.818 - OTHER PANCYTOPENIA SNOMED Code(s): 410273157 (4) Multiple myeloma Current Visit: Yes Status: Chronic Priority: High Code(s): C90.00 - MULTIPLE MYELOMA NOT HAVING ACHIEVED REMISSION SNOMED Code(s): 981515314 Plan: Altered mental status -Persistent and progressive so, patient airway protected with intubation and mechanical ventilation -Pancultures negative. On empiric antiviral and antibacterial medications. ID following. Fever -Patient has remained afebrile since admission Pancytopenia -Progressive secondary to progressive myeloma. -Transfuse for hemoglobin less than 7, hemoglobin 6.8 today, 1 unit has been ordered. Transfuse for platelet count less than 10,000 or if patient is symptomatic. WBC 2.3, ANC adequate At 1.6, no acute intervention. CBC daily Neurology notes been reviewed. Dr. Avelar and Dr. Chandra discussed the case. Pending LP with CSF evaluation. Despite Interventional Radiology best efforts, LP was not successful. Pending response from anesthesiology, can they perform the LP and obtain CSF for evaluation. We are awaiting their recommendations for platelet level. Patient can be transfused prior and during LP if needed. Multiple myeloma -Diagnosed in 2016. Multiple lines of therapy including bone marrow transplant. Unfortunately, should has progressive disease. He was recently followed up by Hematology at [facility] in [place]. Plan was for salvage therapy and possible Car-T treatment. All treatment will be on hold until patient's current condition has adequately resolved. Dr. Nancy Avelar will contact family and update them. attests: I seen and examined patient, performed H&P, developed impression and plan of care. Discussed with dictator. Agree with documentation, dictated as a scribe
[2023-01-19 13:32] VITALS: BMI 28.0
--- NOTE | 2023-01-19 14:21 | P.PN ---
Subjective Progress Note Date: 01/19/23 Principal diagnosis: Altered mental status The patient is 67-year-old white male, well known to our service. He follows with Dr. Browning in the outpatient setting. The patient has a known diagnosis of multiple myeloma. He has been off myeloma specific treatment since early 12/11, due to progression, as well as multiple admissions for fever of unknown origin. He was most recently admitted to the hospital on 12/29/22 with new-onset seizures. He was found to have acute on chronic renal failure. He improved with anorexia medication, as well as hydration. It was felt that the seizures were possibly due to uremia. He was then discharged to [facility] Most of the history for this admission was obtained by the patient's was at the bedside. The patient was sleepy and somewhat difficult to arouse. She stated that after lunch yesterday the patient developed nausea and vomiting. After that he was lethargic and had some intermittent tremors. She states that the tremors were not like seizures but more like chills with fever. He remained lethargic and drowsy and did not eat as dinner. Physician was therefore contacted and the patient was asked to come to the ER. In the ER he was found to have a temperature of 102.1 though he was afebrile initially. Chest x-ray showed chronic changes. CT of the abdomen and pelvis did not show any obvious source of infection. His CBC revealed a hemoglobin of 7.1, platelets 68 and WBC of 4. The patient was therefore admitted for further management. The patient himself denies any localizing signs of infection. The patient was initially febrile at time of admission. Since then, the patient has not spiked any temperature. The patient was seen by various consultants including hematology oncology, nephrology, and neurology. His neurologic functions have been essentially progressing and progressively declining. CAT scan of the brain that was was done on 01/12/2023 showed age-related atrophy with chronic small vessel ischemic changes. MRI of the brain showed symmetrical abnormal increased signal in the occipital lobes and posterior parietal lobes in the rodriguez and white matter. Lumbar puncture was attempted today and was not successful. EEG was done on 01/13/2023 showed abnormal diffuse slowing with moderate to severe encephalopathy. No seizures were noted. The patient subsequently became more unresponsive and this afternoon, the patient was in agonal breathing. The patient got transferred to the intensive care unit. The patient was intubated for airway protection. There was some respiratory secretions and the decubitus were suctioned out. Post intubation chest x-ray showed no significant abn ormalities. No airspace disease. No pleural effusions. The patient had some abnormal ST the right midlung that was unchanged and this was an expansile right rib lesion. The patient was already receiving Zosyn. I added vancomycin. The patient is already on IV acyclovir. Post intubation, he was placed on propofol at 35 mcg/kg/m. He did develop some hypotension is currently receiving a bolus of normal saline. Blood gases post intubation showed a pH of 7.3 with a pCO2 of 30 and pO2 more than 400. Patient is currently on assist control mode at the rate of 24, tidal volume of 450, FiO2 of 100% and a PEEP of 5. The patient is also in acute kidney injury on top of chronic renal failure. His admission creatinine was at 4.07 and dropped down to 2.9. The patient is pancytopenic due to his myeloma with a white second of 2.1, hemoglobin of 7.9 and platelet count of 27. This is a unit of platelets today On 01/17/2023, the patient remains intubated on a mechanical ventilator. Today he is on propofol running at 30 mcg/kg/m. He only grimaces to deep painful stimulation. He does not follow any commands. Sedation was started to maintain synchrony with a mechanical ventilator. Noted the patient was quite unresponsive yesterday prior to his intubation. Subsequently, CAT scan of the brain was done that showed no acute abnormalities. The patient remains intubated on a mechanical ventilator. Today, he is on assist-control mode at the rate of 14, tidal volume of 450, FiO2 of 40% and a PEEP of 5. Chest x-ray shows ET tube being in a good location. There is lower lobe pulmonary infiltrates bilaterally. Suspect an underlying aspiration pneumonia. Antibiotic coverage is modified the patient is currently on a combination of Zosyn, vancomycin. He is also 96 acyclovir suspecting an underlying encephalitis. Exact cause for this patient is an underlying deterioration has n ot been adequately established. EEG has shown diffuse slowing and moderate to severe encephalopathy. Unable to do a lumbar puncture. MRI of the brain was nonrevealing. CAT scan of the brain showed negative abnormalities. He has progressive multiple myeloma. There is obvious hematologic abnormalities with pancytopenia. The white cell count is down to 1.4 and there is a further drop in hemoglobin down to 6.8 and his platelet count is at 55. Encountered some limited bleeding from his puncture sites in his troponin lumen catheter and arterial line site. The patient was given platelets yesterday and the bleeding was controlled. He may benefit from a unit of packed RBC in addition. His blood gases from today shows a pH of 7.51 with a pCO2 of 37 and pO2 of 160. BUN is at 9 with a creatinine of 2.7 and a sodium level is at 143. Hemodynamically, the patient is on no pressors. IV fluids are in the form of bicarb infusion at the rate of 80 mL an hour. Nephrology is on the case. 2022, the patient remains unresponsive. We gave him a sedation holiday for a prolonged period of time yesterday and unfortunately, there was no neurologic response. There was only grimaces to deep painful stimulation. Otherwise, he does not open up his eyes, does not follow any commands, motor and sensory functions cannot be assessed, no seizure activity has been noted an EEG was done that showed moderate to severe encephalopathy without any epileptic foci. The patient is afebrile. No neck stiffness. Unable to do a lumbar puncture. I discussed the case was anesthesia and there were not willing to do his lumbar puncture specially with his underlying thrombocytopenia. Note that intervent ional radiology try to obtain a lumbar puncture under fluoroscopy earlier and this was not successful. He remains on IV acyclovir. He remains on broad- spectrum antibiotics with a combination of Zosyn and vancomycin. While on a mechanical ventilator, his condition remained stable. Is on assist-control at the rate of 14, tidal volume of 450, FiO2 40% and a PEEP of 5. His chest x-ray remains unchanged. Hemodynamically, he did drop his pressure yesterday and he was started on a low-dose of norepinephrine which is currently running at 0.02 mcg/kg/m. Cardiac rhythm is sinus. He is producing adequate amount of urine output. His hematologic profile from today shows a WBC count of 2, hemoglobin of 7.8, platelet count was 50 from yesterday pending from today. Blood gas shows a pH of 7.45 with a pCO2 of 38 and pO2 of 134. The BUN is at 9 with a creatinine of 2.7 as the patient's chronic kidney disease secondary to multiple myeloma. Sodium is 144 with a potassium level of 4.3. Vancomycin trough was 33. Sputum culture was negative. Blood cultures were negative. Various consultants involved including hematology regarding his progressive myeloma. He is also under the care of neurology to start the patient on Keppra. Is also on Vimpat. Nephrology is also on the case. No major change in his condition at this point in time. Reevaluated today on 01/19/2023, patient remains in the ICU, intubated and mechanically ventilated. Patient is on assist control rate of 14 tidal volume 450 FiO2 35% and PEEP of 5 ABG showed a pO2 of 138 pCO2 36 pH of 7.45. Patient remains empirically on acyclovir, is also on Zosyn, patient is receiving Keppra and Vimpat for possible seizures. Based on EEG. Patient basically required lumbar puncture, but that could not be done mostly because his low platelets, and we will recommend platelet transfusion just before lumbar puncture to be performed by anesthesia. His labs today are quite abnormal including a WBC count of 2.3 hemoglobin 6.8 platelets are 35,000, this is consistent with a picture of pancytopenia. Basic metabolic profile is normal however his BUN is 12 creatinine 2.96. Since admission the patient received 4 units of packed RBCs, 1 unit of fresh frozen plasma and 2 units of platelets. Patient remains unresponsive to any stimuli. And he is being followed closely by multiple consultants including neurology. Chest x-ray today is consistent with bilateral pneumonia right more so than left, although the possibility of underlying pulmonary edema is not entirely ruled out but felt to be less likely. HSV serology is nondiagnostic and basically negative. Objective - Vital Signs Vital signs: Vital Signs Temp 99.3 F 01/19/23 11:23 Pulse 99 01/19/23 13:00 Resp 14 01/19/23 13:00 BP 155/87 01/19/23 13:00 Pulse Ox 99 01/19/23 13:00 FiO2 35 01/19/23 12:00 Intake & Output 01/18/23 01/19/23 01/19/23 18:59 06:59 18:59 Intake Total 7772.207 4078 1118 Output Total 985 1000 835 Balance 509.184 516 283 Weight 96.3 kg 96.3 kg Intake: IV 886 826 411 0.9 Sodium Chloride 250 240 90 Acyclovir Sodium 900 mg 250 250 In Sodium Chloride 0.9% 250 ml @ 268 mls/hr IVPB Q12H [facility] Rx#:[id number] Lacosamide IV 50 mg In 50 100 100 Sodium Chloride 0.9% 50 ml @ 100 mls/hr IVPB BID NNA[facility]I Rx#:[id number] Piperacillin-Tazobactam 3 200 100 100 .375 gm In Sodium Chloride 0.9% 100 ml @ 25 mls/hr IVPB Q8H [facility] Rx#: [id number] Pressure Bag (0.9 Sodium 36 36 21 Chloride) levETIRAcetam IV 500 mg 100 100 100 In Sodium Chloride 0.9% 100 ml @ 400 mls/hr IVPB Q12HR [facility] Rx#:[id number] Intake, IV Titration 28.184 Amount Norepinephrine 8 mg In 12.262 Sodium Chloride 0.9% 250 ml @ 0.03 MCG/KG/MIN 5. 306 mls/hr IV .Q24H [facility] Rx#:[id number] propofoL 1,000 mg In 15.922 Empty Bag 1 bag @ 15 MCG/ KG/MIN 7.961 mls/hr IV . [id number] [facility] Rx#:[id number] Tube Feeding 490 600 377 Blood Product 0 Unit 0 Other 90 90 330 Output: Urine 985 1000 835 Other: Voiding Method Indwelling Catheter Indwelling Catheter Indwelling Catheter ABP, PAP, CO, CI - Last Documented Arterial Blood Pressure 151/66 - Exam Physical Exam: Revealed 67-year-old white male unresponsive to any stimuli. Head: Atraumatic, normocephalic. Endotracheal tube and orogastric tube are int act. HEENT:[Neck is supple.] [No neck masses.] [No thyromegaly.] [No JVD.] Chest: [Symmetrical chest expansion, crackles at the bases. No rhonchi and no wheezes. Cardiac Exam: [Normal S1 and S2, no S3 gallop, no murmur.] Abdomen: [Soft, nontender, no megaly, no rebound, no guarding, normal bowel s ounds.] Extremities: [No clubbing, 1+ bipedal edema, no cyanosis.] Neurological Exam: Pupils are 3 mm and sluggishly reactive to light, patient does have a gag reflex, not responsive to any verbal or painful stimuli, no clonus, no Babinski, reflexes are symmetrical. Skin: Multiple areas of ecchymosis is noted. And areas of purpura. - Labs CBC & Chem 7: 01/19/23 05:37 01/19/23 05:37 Labs: Abnormal Lab Results - Last 24 Hours (Table) 01/18/23 01/19/23 01/19/23 Range/Units 18:08 00:06 05:37 WBC 2.3 L (3.8-10.6) k/uL RBC 2.31 L (4.30-5.90) m/uL Hgb 6.8 L* (13.0-17.5) gm/dL Hct 20.4 L (39.0-53.0) % RDW 18.5 H (11.5-15.5) % Plt Count 35 L (150-450) k/uL Lymphocytes # (Manual) 0.28 L (1.0-4.8) k/uL Metamyelocytes # (Man) 0.05 H (0) k/uL ABG pO2 (83-108) mmHg ABG Total CO2 (19-24) mmol/L ABG O2 Saturation (94-97) % Sodium (137-145) mmol/L Chloride (98-107) mmol/L Creatinine (0.66-1.25) mg/dL Glucose (74-99) mg/dL POC Glucose (mg/dL) 124 H 112 H (70-110) mg/dL Calcium (8.4-10.2) mg/dL Crossmatch 01/19/23 01/19/23 01/19/23 Range/Units 05:37 06:10 06:34 WBC (3.8-10.6) k/uL RBC (4.30-5.90) m/uL Hgb (13.0-17.5) gm/dL Hct (39.0-53.0) % RDW (11.5-15.5) % Plt Count (150-450) k/uL Lymphocytes # (Manual) (1.0-4.8) k/uL Metamyelocytes # (Man) (0) k/uL ABG pO2 138 H (83-108) mmHg ABG Total CO2 26 H (19-24) mmol/L ABG O2 Saturation 100.0 H (94-97) % Sodium 146 H (137-145) mmol/L Chloride 115 H (98-107) mmol/L Creatinine 2.96 H (0.66-1.25) mg/dL Glucose 117 H (74-99) mg/dL POC Glucose (mg/dL) 124 H (70-110) mg/dL Calcium 7.3 L (8.4-10.2) mg/dL Crossmatch 01/19/23 01/19/23 01/19/23 Range/Units 06:59 11:38 12:19 WBC (3.8-10.6) k/uL RBC (4.30-5.90) m/uL Hgb (13.0-17.5) gm/dL Hct (39.0-53.0) % RDW (11.5-15.5) % Plt Count (150-450) k/uL Lymphocytes # (Manual) (1.0-4.8) k/uL Metamyelocytes # (Man) (0) k/uL ABG pO2 (83-108) mmHg ABG Total CO2 (19-24) mmol/L ABG O2 Saturation (94-97) % Sodium (137-145) mmol/L Chloride (98-107) mmol/L Creatinine (0.66-1.25) mg/dL Glucose (74-99) mg/dL POC Glucose (mg/dL) 138 H 134 H (70-110) mg/dL Calcium (8.4-10.2) mg/dL Crossmatch See Detail Microbiology - Last 24 Hours (Table) 01/16/23 15:23 Gram Stain - Final Sputum Sputum Culture - Final Brisa albicans Assessment and Plan Assessment: Impression: Acute hypoxic respiratory failure secondary to altered mental status and acute bilateral pneumonia, possibly aspiration pneumonia. Patient has been on vancomycin and Zosyn. Altered mental status, possible seizures, acute toxic metabolic encephalopathy. History of seizures History of posterior reversible encephalopathy syndrome based on MRI from 12/29/2022, however subsequently the patient had full recovery. Multiple myeloma with progression, possible [employer]ING [employer] involvement with multiple myeloma strongly recommend lumbar puncture. Pancytopenia secondary to above. Chronic kidney disease secondary to multiple myeloma chronic stage IIIB kidney disease. Acute on chronic kidney injury. History of pulmonary embolism Coronary arteriosclerosis History of T12 fracture and multiple vertebral fractures due to multiple myeloma Dyslipidemia Possible sepsis from pneumonia at one point required briefly norepinephrine and fluids. This was addressed by Dr. Alvarez prior to my evaluation Recommendation: Continue ventilatory support Continue antibiotics including Zosyn, acyclovir, and vancomycin Will consult anesthesia for lumbar puncture. Discussed his condition with oncology on the case. Continue seizure medications including Keppra and Vimpat Continue to monitor daily labs including daily CBC and daily metabolic profile Nutritional support to continue with enteral feeding. GI and DVT prophylaxis. Monitor the pancytopenia and address accordingly. Patient is being followed by multiple services including nephrology, oncology, neurology, and infectious disease. Patient is obviously critical. Critical care time is over 30 minutes Time with Patient: Greater than 30
[2023-01-19 16:20] LABS: INR 1.1 (<1.2); Partial Thromboplastin Time 29.3 sec (22.0-30.0); Prothrombin Time 11.2 sec (9.0-12.0)
[2023-01-19] MEDS: hydrALAZINE HCL 20 MG/ML 1 ML VIAL IVP PRN (16:31)
[2023-01-19 17:55] LABS: Glucose,Whole Blood 125 mg/dL (70-110)
--- NOTE | 2023-01-19 18:38 | P.PN ---
Subjective Progress Note Date: 01/19/23 Patient initially seen by Dr. Harsha Kern. Please refer to his note for details. Patient is a 67-year-old male, who has history of multiple myeloma and has been admitted for confusional state. Patient's brain MRI was consistent with PRES. He had an EEG performed, which was negative for any epileptiform activity, but because of worsening confusion, patient had repeat EEG performed today. Lumbar puncture could not be performed because he has thrombocytopenia and fever only at presentation of unknown origin. Patient is on acyclovir, vancomycin. Per nursing report, patient has some movements in both lips. Patient's and patient's sons were present today. They mention that when he is moved for repositioning, he opens his eyes. No other seizure activity noticed. Some of the workup during this hospital visit consisted of: On initial presentation the patient had a fever of 102.1 max currently it's the resolved Hemoglobin was as low as a 6.2 and currently 3.4 His creatinine is 4.07 currently is 2.7 glucose had episodes as low as 65 currently 71. Then yesterday was low as 51. Ionized calcium is 6.0 He could've the head ordered by the primary team is reported as age-related atrophy and chronic small vessel ischemic change without acute intracranial process seen at this time. I personally reviewed the CT and I agree there is no acute subacute ischemia, there is no bleed. MR the brain is reported as symmetrical abnormal increased signal in the occipital lobe and posterior parietal lobe and the rodriguez and white matter. This is predominantly white matter abnormality and could relate to microvascular ischemia. I do not suspect demyelinating disease. I personally reviewed the MRI and the patient has hyperintensity on the flare over the occipital parietal but must drastically improved compared to 12/30/[address] of the head is reported as no acute hemorrhage, hydrocephalus or mass effect. CT cervical spine is reported as no acute fracture or subluxation. 5 mm sclerotic lesion left articular process of C4, nonspecific. Possibly a bone island. Objective - Vital Signs Vital signs: Vital Signs Temp 99.4 F 01/19/23 16:00 Pulse 103 H 01/19/23 17:00 Resp 25 H 01/19/23 17:00 BP 167/93 01/19/23 17:00 Pulse Ox 98 01/19/23 17:00 FiO2 35 04/03/23 16:11 Intake & Output 01/18/23 01/19/23 01/19/23 18:59 06:59 18:59 Intake Total 8273.778 7972 2016 Output Total 985 1000 1610 Balance 509.184 516 406 Weight 96.3 kg 96.3 kg Intake: IV 886 826 463 0.9 Sodium Chloride 250 240 130 Acyclovir Sodium 900 mg 250 250 In Sodium Chloride 0.9% 250 ml @ 268 mls/hr IVPB Q12H NNAMDI Rx#:[id number] Lacosamide IV 50 mg In 50 100 100 Sodium Chloride 0.9% 50 ml @ 100 mls/hr IVPB BID NNAMDI Rx#:[id number] Piperacillin-Tazobactam 3 200 100 100 .375 gm In Sodium Chloride 0.9% 100 ml @ 25 mls/hr IVPB Q8H NNAMDI Rx#: [id number] Pressure Bag (0.9 Sodium 36 36 33 Chloride) levETIRAcetam IV 500 mg 100 100 100 In Sodium Chloride 0.9% 100 ml @ 400 mls/hr IVPB Q12HR [facility]NA[facility]I Rx#:[id number] Intake, IV Titration 28.184 Amount Norepinephrine 8 mg In 12.262 Sodium Chloride 0.9% 250 ml @ 0.03 MCG/KG/MIN 5. 306 mls/hr IV .Q24H [facility]NA[facility] Rx#:[id number] propofoL 1,000 mg In 15.922 Empty Bag 1 bag @ 15 MCG/ KG/MIN 7.961 mls/hr IV . [id number] NNA[facility]I Rx#:[id number] Tube Feeding 490 600 613 Blood Product 310 Rc As-1 Unit 310 [id number] Other 90 90 630 Output: Urine 985 1000 1610 Other: Voiding Method Indwelling Catheter Indwelling Catheter Indwelling Catheter ABP, PAP, CO, CI - Last Documented Arterial Blood Pressure 136/60 - Exam Patient is intubated. His pupils are 4 mm, reacting to 3 mm briskly. Oc ulocephalics are absent. Tone is equal bilaterally. No obvious seizure-like activity noted. Occasional lip twitching was noted. Patient has moderate peripheral edema. He has possible cellulitis left lower [place] region. - Labs CBC & Chem 7: 01/19/23 05:37 01/19/23 05:37 Labs: Abnormal Lab Results - Last 24 Hours (Table) 01/18/23 01/19/23 01/19/23 Range/Units 18:08 00:06 05:37 WBC 2.3 L (3.8-10.6) k/uL RBC 2.31 L (4.30-5.90) m/uL Hgb 6.8 L* (13.0-17.5) gm/dL Hct 20.4 L (39.0-53.0) % RDW 18.5 H (11.5-15.5) % Plt Count 35 L (150-450) k/uL Lymphocytes # (Manual) 0.28 L (1.0-4.8) k/uL Metamyelocytes # (Man) 0.05 H (0) k/uL ABG pO2 (83-108) mmHg ABG Total CO2 (19-24) mmol/L ABG O2 Saturation (94-97) % Sodium (137-145) mmol/L Chloride (98-107) mmol/L Creatinine (0.66-1.25) mg/dL Glucose (74-99) mg/dL POC Glucose (mg/dL) 124 H 112 H (70-110) mg/dL Calcium (8.4-10.2) mg/dL Crossmatch 01/19/23 01/19/23 01/19/23 Range/Units 05:37 06:10 06:34 WBC (3.8-10.6) k/uL RBC (4.30-5.90) m/uL Hgb (13.0-17.5) gm/dL Hct (39.0-53.0) % RDW (11.5-15.5) % Plt Count (150-450) k/uL Lymphocytes # (Manual) (1.0-4.8) k/uL Metamyelocytes # (Man) (0) k/uL ABG pO2 138 H (83-108) mmHg ABG Total CO2 26 H (19-24) mmol/L ABG O2 Saturation 100.0 H (94-97) % Sodium 146 H (137-145) mmol/L Chloride 115 H (98-107) mmol/L Creatinine 2.96 H (0.66-1.25) mg/dL Glucose 117 H (74-99) mg/dL POC Glucose (mg/dL) 124 H (70-110) mg/dL Calcium 7.3 L (8.4-10.2) mg/dL Crossmatch 01/19/23 01/19/23 01/19/23 Range/Units 06:59 11:38 12:19 WBC (3.8-10.6) k/uL RBC (4.30-5.90) m/uL Hgb (13.0-17.5) gm/dL Hct (39.0-53.0) % RDW (11.5-15.5) % Plt Count (150-450) k/uL Lymphocytes # (Manual) (1.0-4.8) k/uL Metamyelocytes # (Man) (0) k/uL ABG pO2 (83-108) mmHg ABG Total CO2 (19-24) mmol/L ABG O2 Saturation (94-97) % Sodium (137-145) mmol/L Chloride (98-107) mmol/L Creatinine (0.66-1.25) mg/dL Glucose (74-99) mg/dL POC Glucose (mg/dL) 138 H 134 H (70-110) mg/dL Calcium (8.4-10.2) mg/dL Crossmatch See Detail Microbiology - Last 24 Hours (Table) 01/16/23 15:23 Gram Stain - Final Sputum Sputum Culture - Final Brisa albicans Assessment and Plan Assessment: Also mental status seems due to metabolic encephalopathy. Has fever of unknown origin (fever was only at presentation and that resolved). Rule out ?encephalitis. Also has hypogylecmia (as low as 50's), elevated ionized calcium--glucose improved. History of seizures according to the he has subtle jerking of upper extremities (in past had left facial twitching and myoclonic jerks) History of Posterior reversible encephalopathy syndrome on MRI of the brain of 12/29/2022 admission and improving on this current MRI. Acute on chronic kidney insufficiency History of multiple myeloma and had chemotherapy Pancytopenia History of pulmonary embolism on Eliquis History of a T12 fracture with multiple vertebral fracture due to multiple myeloma History of coronary artery disease Dyslipidemia Plan: He is on Keppra Keppra to 500mg bid and Dr. Kern has also added Vimpat 50 mg one tablet twice a day (started on 01/12/23) especially since according to the he has subtle jerks of the upper extremity. Routine EEG: Is abnormal. The background slowing suggestive of moderate to severe encephalopathy. Otherwise there is no focal slowing, epileptiform discharges or seizure on the EEG. Repeat EEG performed today was also abnormal, with background slowing of moderate to severe degree. Also presence of frontally predominant high amplitude waves, which appears triphasic. Does not appear clearly epileptiform. Ordered repeat prolonged EEG (to be done tomorrow). Discussed with family members, agreed with that approach. Continue same dose of seizure medications. ID team is on board for the fever. Lumbar puncture is unsuccessful. Pain specialist will not perform Lumbar Puncture because of thrombocytopenia. Is on Acylovir, Acylovir and Zosyn. I.D. is on board. We'll defer the rest of the medical measure the primary team Condition is very guarded.
[2023-01-19] MEDS: CLEVIDIPINE BUTYRATE 25 MG in EMPTY BAG 1 BAG IV SCH (19:56)
[2023-01-19] MEDS: GABAPENTIN 300 MG CAP PO SCH (21:01)
[2023-01-19] MEDS: CALCIUM CARBONATE 500 MG CHEWABLE PO SCH (21:01)
--- NOTE | 2023-01-19 21:15 | XR ---
EXAMINATION TYPE: XR chest 1V portable DATE OF EXAM: 01/19/2023 9:04 PM COMPARISON: Chest radiographs from 01/19/2023 TECHNIQUE: XR chest 1V portable Frontal view of the chest. CLINICAL INDICATION:Male, 67 years old with history of OG Tube placement/ Aspiration; FINDINGS: Lungs/Pleura: Poor positioning the patient with low lung volumes. There is no evidence of pleural eff usion, focal consolidation, or pneumothorax. Pulmonary vascularity: Unremarkable. Heart/mediastinum: Cardiomediastinal silhouette is unremarkable. Musculoskeletal: No acute osseous pathology. Other findings: None Lines/Tubes: Endotracheal tube with distal tip 5.2 cm above the rai. Nasogastric tube with its distal tip and side-port projecting under the diaphragm and projecting over the gastric lumen. IMPRESSION: Nasogastric and endotracheal tube tip in appropriate position.
--- NOTE | 2023-01-19 21:17 | P.PN ---
Subjective Progress Note Date: 01/19/23 Principal diagnosis: Fever Patient is a 67-year-old male with a past medical history significant for multiple myeloma on chemotherapy patient also history of hyperlipidemia coronary disease PE and half-way resident patient was brought into the ER for evaluation of fever , Patient also have an episode of vomiting and persistent in the left lower quadrant.Patient did have worsening of his respiratory status ended up getting intubated and the patient was transferred to the ICU 01/16/2023. On today's evaluation that is 01/19/2023 the patient is afebrile, the patient is hemodynamically stable not requiring any pressor support and no significant purulent secretion through the ET, patient FiO2 is stable at 35%, no other changes reported by the RN , waiting for LP Objective - Vital Signs Vital signs: Vital Signs Temp 99.3 F 01/19/23 11:23 Pulse 99 01/19/23 12:00 Resp 18 01/19/23 12:00 BP 152/66 01/19/23 11:23 Pulse Ox 99 01/19/23 12:00 FiO2 35 01/19/23 12:00 Intake & Output 01/18/23 01/19/23 01/19/23 18:59 06:59 18:59 Intake Total 6648.513 9708 746 Output Total 985 1000 610 Balance 509.184 516 136 Weight 96.3 kg Intake: IV 886 826 398 0.9 Sodium Chloride 250 240 80 Acyclovir Sodium 900 mg 250 250 In Sodium Chloride 0.9% 250 ml @ 268 mls/hr IVPB Q12H [facility] Rx#:[id number] Lacosamide IV 50 mg In 50 100 100 Sodium Chloride 0.9% 50 ml @ 100 mls/hr IVPB BID NNA[facility]I Rx#:[id number] Piperacillin-Tazobactam 3 200 100 100 .375 gm In Sodium Chloride 0.9% 100 ml @ 25 mls/hr IVPB Q8H [facility]NA[facility] Rx#: [id number] Pressure Bag (0.9 Sodium 36 36 18 Chloride) levETIRAcetam IV 500 mg 100 100 100 In Sodium Chloride 0.9% 100 ml @ 400 mls/hr IVPB Q12HR [facility]NA[facility] Rx#:[id number] Intake, IV Titration 28.184 Amount Norepinephrine 8 mg In 12.262 Sodium Chloride 0.9% 250 ml @ 0.03 MCG/KG/MIN 5. 306 mls/hr IV .Q24H [facility] Rx#:[id number] propofoL 1,000 mg In 15.922 Empty Bag 1 bag @ 15 MCG/ KG/MIN 7.961 mls/hr IV . [id number] [facility]NA[facility] Rx#:[id number] Tube Feeding 490 600 318 Blood Product 0 Unit 0 Other 90 90 30 Output: Urine 985 1000 610 Other: Voiding Method Indwelling Catheter Indwelling Catheter Indwelling Catheter ABP, PAP, CO, CI - Last Documented Arterial Blood Pressure 158/68 - Exam GENERAL DESCRIPTION: Elderly male intubated on the vent RESPIRATORY SYSTEM: Unlabored breathing , decreased breath sounds at bases HEART: S1 S2 regular rate and rhythm ABDOMEN: Soft , no tenderness EXTREMITIES: No edema feet - Labs CBC & Chem 7: 01/19/23 05:37 01/19/23 05:37 Labs: Abnormal Lab Results - Last 24 Hours (Table) 01/18/23 01/18/23 01/19/23 Range/Units 13:50 18:08 00:06 WBC (3.8-10.6) k/uL RBC (4.30-5.90) m/uL Hgb (13.0-17.5) gm/dL Hct (39.0-53.0) % RDW (11.5-15.5) % Plt Count (150-450) k/uL Lymphocytes # (Manual) (1.0-4.8) k/uL Metamyelocytes # (Man) (0) k/uL ABG pO2 (83-108) mmHg ABG Total CO2 (19-24) mmol/L ABG O2 Saturation (94-97) % Sodium (137-145) mmol/L Chloride (98-107) mmol/L Creatinine (0.66-1.25) mg/dL Glucose (74-99) mg/dL POC Glucose (mg/dL) 125 H 124 H 112 H (70-110) mg/dL Calcium (8.4-10.2) mg/dL Crossmatch 01/19/23 01/19/23 01/19/23 Range/Units 05:37 05:37 06:10 WBC 2.3 L (3.8-10.6) k/uL RBC 2.31 L (4.30-5.90) m/uL Hgb 6.8 L* (13.0-17.5) gm/dL Hct 20.4 L (39.0-53.0) % RDW 18.5 H (11.5-15.5) % Plt Count 35 L (150-450) k/uL Lymphocytes # (Manual) 0.28 L (1.0-4.8) k/uL Metamyelocytes # (Man) 0.05 H (0) k/uL ABG pO2 (83-108) mmHg ABG Total CO2 (19-24) mmol/L ABG O2 Saturation (94-97) % Sodium 146 H (137-145) mmol/L Chloride 115 H (98-107) mmol/L Creatinine 2.96 H (0.66-1.25) mg/dL Glucose 117 H (74-99) mg/dL POC Glucose (mg/dL) 124 H (70-110) mg/dL Calcium 7.3 L (8.4-10.2) mg/dL Crossmatch 01/19/23 01/19/23 01/19/23 Range/Units 06:34 06:59 11:38 WBC (3.8-10.6) k/uL RBC (4.30-5.90) m/uL Hgb (13.0-17.5) gm/dL Hct (39.0-53.0) % RDW (11.5-15.5) % Plt Count (150-450) k/uL Lymphocytes # (Manual) (1.0-4.8) k/uL Metamyelocytes # (Man) (0) k/uL ABG pO2 138 H (83-108) mmHg ABG Total CO2 26 H (19-24) mmol/L ABG O2 Saturation 100.0 H (94-97) % Sodium (137-145) mmol/L Chloride (98-107) mmol/L Creatinine (0.66-1.25) mg/dL Glucose (74-99) mg/dL POC Glucose (mg/dL) 138 H (70-110) mg/dL Calcium (8.4-10.2) mg/dL Crossmatch See Detail 01/19/23 Range/Units 12:19 WBC (3.8-10.6) k/uL RBC (4.30-5.90) m/uL Hgb (13.0-17.5) gm/dL Hct (39.0-53.0) % RDW (11.5-15.5) % Plt Count (150-450) k/uL Lymphocytes # (Manual) (1.0-4.8) k/uL Metamyelocytes # (Man) (0) k/uL ABG pO2 (83-108) mmHg ABG Total CO2 (19-24) mmol/L ABG O2 Saturation (94-97) % Sodium (137-145) mmol/L Chloride (98-107) mmol/L Creatinine (0.66-1.25) mg/dL Glucose (74-99) mg/dL POC Glucose (mg/dL) 134 H (70-110) mg/dL Calcium (8.4-10.2) mg/dL Crossmatch Microbiology - Last 24 Hours (Table) 01/16/23 15:23 Gram Stain - Final Sputum Sputum Culture - Final Brisa albicans Assessment and Plan (1) Fever Current Visit: Yes Status: Acute Priority: High Code(s): R50.9 - FEVER, UNSPECIFIED SNOMED Code(s): 902996986 Plan: 1patient was in the hospital with a fever and did have an episode of vomiting patient was noted to be slightly tender in the left lower quadrant area concerning for possible intra-abdominal source possible diverticulitis as currently not behaving as pneumonia chest x-ray was negative urine is negative influenza RSV and COVID testing was negative 2-patient with elevated creatinine high risk of nephrotoxicity 3- CT of abdominal pelvis with oral contrast , did not show any acute process but rectal feceloma , pt did have multiple BM since CT 4-Patient did have worsening of his respiratory status requiring intubation sputum is currently growing Brisa which is likely colonizer pt to continue Zosyn , recheck sputum , crp and proclacitonin and monitor clinical course closely Time with Patient: Less than 30
--- NOTE | 2023-01-19 22:50 | EEG ---
DATE OF SERVICE: 01/19/2023 ELECTROENCEPHALOGRAM REPORT PREAMBLE: This is a 67-year-old male with worsening altered mental status, rule out any seizure activity. CURRENT MEDICATIONS: Acyclovir, Neurontin, Vimpat, Keppra, potassium, magnesium, norepinephrine, Zosyn and propofol. EEG FINDINGS: This is a 21-channel digital EEG recorded with video component, utilizing 10/20 international system with referential and bipolar montages. Background consists of poorly developed and regulated, mixed frequencies of theta and delta slowing in bihemispheric region. Frequent higher amplitude, frontal triphasic type waves were seen, some intermittent periods of suppression lasting for 1 to 2 seconds were seen. Different stages of sleep were not seen. No definitive focal or generalized epileptiform activity was seen. IMPRESSION: 1. This is an abnormal EEG due to background slowing of [id number] degree. This is suggestive of generalized cerebral dysfunction as can be seen with toxic metabolic encephalopathy or related to diffuse structural brain abnormality. 2. Presence of frontally predominant high amplitude waves, which appears triphasic in nature. This maybe suggestive of metabolic encephalopathy. Clinical correlation is recommended. No clear-cut epileptiform activity was seen. MMODL / IJN: [id number] / [facility]
--- NOTE | 2023-01-19 23:04 | PN ---
PROGRESS NOTE DATE OF SERVICE: 01/19/2023 SUBJECTIVE: This is a 67-year-old gentleman admitted with possible sepsis. He is on empiric antibiotics. The patient also suspect to have PRES. Neurology is planning lumbar puncture. The patient is on mechanical ventilation, intubated. PAST MEDICAL HISTORY: Reviewed. REVIEW OF SYSTEMS: Could not be taken. CURRENT MEDICATIONS: Reviewed include Peridex. Doses and rest of medication noted. OBJECTIVE: VITAL SIGNS: Pulse is 99, blood pressure 158/62, respirations 18, vent settings are noted. HEENT: Conjunctivae normal. CARDIOVASCULAR: S1, S2. RESPIRATIONS: Bilateral scattered rhonchi and crackles. ABDOMEN: Soft, nontender. NERVOUS SYSTEM: Sedated. LABORATORY DATA: Reviewed. ASSESSMENT: 1. Possible sepsis with primary indeterminate. 2. Change in mental status, rule out posterior reversible encephalopathy syndrome or encephalopathy. 3. Pancytopenia. 4. Brisa albicans from the sputum. 5. History of pulmonary embolism. 6. History of coronary artery disease. 7. Multiple medical issues. RECOMMENDATIONS AND DISCUSSION: This 67-year-old gentleman presented with multiple complex medical issues. We will monitor the patient closely. I would recommend continue with empiric antibiotics. Recommend adding empiric antifungals and patino cultures. Lumbar puncture. Closely follow with Infectious Disease, Pulmonary, and Neurology. Overall prognosis extremely guarded because of multiple complex medical issues. Further recommendations to follow. MMODL / IJN: [id number] /
[2023-01-20] MEDS: PIPERACILLIN-TAZOBACTAM 3.375 GM in SODIUM CHLORIDE 0.9% 100 ML IVPB SCH ×3 (00:30→16:25)
[2023-01-20] MEDS: ACYCLOVIR SODIUM 900 MG in SODIUM CHLORIDE 0.9% 250 ML IVPB SCH ×2 (05:30→17:57)
[2023-01-20] MEDS: CLEVIDIPINE BUTYRATE 25 MG in EMPTY BAG 1 BAG IV SCH (06:00)
[2023-01-20 06:08] LABS: Potassium 3.6 mmol/L (3.5-5.1)
[2023-01-20 06:11] LABS: Albumin 1.8 g/dL (3.5-5.0); C Reactive Protein 6.7 mg/dL (<1.0); Calcium 7.6 mg/dL (8.4-10.2); Total Bilirubin 1.3 mg/dL (0.2-1.3)
[2023-01-20 06:12] LABS: Partial Thromboplastin Time 27.8 sec (22.0-30.0)
[2023-01-20 06:15] LABS: Allen Test Performed? Yes
[2023-01-20 06:16] LABS: ABG Base Excess -2.2 mmol/L; ABG HCO3 23 mmol/L (21-25); ABG PCO2 36 mmHg (35-45); ABG PH 7.41 (7.35-7.45); ABG PO2 121 mmHg (83-108); ABG TCO2 24 mmol/L (19-24)
[2023-01-20] MEDS: NOREPINEPHRINE 8 MG in SODIUM CHLORIDE 0.9% 250 ML IV SCH (06:20)
[2023-01-20 06:37] LABS: Glucose,Whole Blood 132 mg/dL (70-110)
[2023-01-20 06:42] LABS: Anisocytosis Slight; HCT 22.1 % (39.0-53.0); HGB 7.4 gm/dL (13.0-17.5); MCH 29.4 pg (25.0-35.0); MCHC 33.5 g/dL (31.0-37.0); MCV 87.9 fL (80.0-100.0); Mean Platelet Volume 8.8; Platelet Count 26 k/uL (150-450); Poikilocytosis Slight; RBC 2.51 m/uL (4.30-5.90); RDW 18.7 % (11.5-15.5); WBC 2.4 k/uL (3.8-10.6)
[2023-01-20] MEDS ORDERED: POTASSIUM BICARBONATE/CIT AC 20 MEQ TABLET.EFF NG-TUBE SCH ×2 (07:00→13:00)
--- NOTE | 2023-01-20 07:52 | XR ---
EXAMINATION TYPE: XR chest 1V portable DATE OF EXAM: 01/20/2023 COMPARISON: 01/19/2023 HISTORY: Tube placement TECHNIQUE: Single frontal view of the chest is obtained. FINDINGS: ET and NG tube stable. Heart size unchanged. Hypertrophic degenerative change of the spine . There is bilateral infiltrate and pleural effusion. No sizable pneumothorax. IMPRESSION: Stable bilateral pleural-parenchymal changes correlate for CHF otherwise consider pneumo karly.
[2023-01-20] MEDS: levETIRAcetam IV 500 MG in SODIUM CHLORIDE 0.9% 100 ML IVPB SCH ×2 (08:57→22:03)
[2023-01-20] MEDS: CHLORHEXIDINE GLUCONATE 15 ML CUP MUCOUS MEM SCH ×2 (09:00→20:25)
[2023-01-20] MEDS: SODIUM BICARBONATE TAB 650 MG TAB PO SCH ×3 (09:01→20:20)
[2023-01-20] MEDS: CHOLECALCIFEROL 25 MCG (1000 IU) TABLET PO SCH (09:01)
[2023-01-20] MEDS: LACOSAMIDE IV 50 MG in SODIUM CHLORIDE 0.9% 50 ML IVPB SCH ×2 (09:48→22:03)
[2023-01-20] MEDS: PANTOPRAZOLE 40 MG/10 ML VIAL IVP SCH (10:33)
[2023-01-20 11:32] LABS: Band Neutrophils % 2 %; Eosinophils # (M) 0.12 k/uL (0-0.7); Lymphocytes # (M) 0.14 k/uL (1.0-4.8); Myelocytes # (M) 0.02 k/uL (0); Myelocytes % 1 %; Neutrophils % (M) 82 %; Nucleated Red Blood Cells 2 /100 WBC (0-0); Total Cells Counted 100
[2023-01-20 11:33] LABS: Rouleaux Present
[2023-01-20 11:46] LABS: Glucose,Whole Blood 132 mg/dL (70-110)
--- NOTE | 2023-01-20 13:13 | P.PN ---
Subjective Progress Note Date: 01/20/23 Principal diagnosis: Altered mental status The patient is 67-year-old white male, well known to our service. He follows with Dr. Browning in the outpatient setting. The patient has a known diagnosis of multiple myeloma. He has been off myeloma specific treatment since early 12/11, due to progression, as well as multiple admissions for fever of unknown origin. He was most recently admitted to the hospital on 12/29/22 with new-onset seizures. He was found to have acute on chronic renal failure. He improved with anorexia medication, as well as hydration. It was felt that the seizures were possibly due to uremia. He was then discharged to [facility] Most of the history for this admission was obtained by the patient's was at the bedside. The patient was sleepy and somewhat difficult to arouse. She stated that after lunch yesterday the patient developed nausea and vomiting. After that he was lethargic and had some intermittent tremors. She states that the tremors were not like seizures but more like chills with fever. He remained lethargic and drowsy and did not eat as dinner. Physician was therefore contacted and the patient was asked to come to the ER. In the ER he was found to have a temperature of 102.1 though he was afebrile initially. Chest x-ray showed chronic changes. CT of the abdomen and pelvis did not show any obvious source of infection. His CBC revealed a hemoglobin of 7.1, platelets 68 and WBC of 4. The patient was therefore admitted for further management. The patient himself denies any localizing signs of infection. The patient was initially febrile at time of admission. Since then, the patient has not spiked any temperature. The patient was seen by various consultants including hematology oncology, nephrology, and neurology. His neurologic functions have been essentially progressing and progressively declining. CAT scan of the brain that was was done on 01/12/2023 showed age-related atrophy with chronic small vessel ischemic changes. MRI of the brain showed symmetrical abnormal increased signal in the occipital lobes and posterior parietal lobes in the rodriguez and white matter. Lumbar puncture was attempted today and was not successful. EEG was done on 01/13/2023 showed abnormal diffuse slowing with moderate to severe encephalopathy. No seizures were noted. The patient subsequently became more unresponsive and this afternoon, the patient was in agonal breathing. The patient got transferred to the intensive care unit. The patient was intubated for airway protection. There was some respiratory secretions and the decubitus were suctioned out. Post intubation chest x-ray showed no significant abn ormalities. No airspace disease. No pleural effusions. The patient had some abnormal ST the right midlung that was unchanged and this was an expansile right rib lesion. The patient was already receiving Zosyn. I added vancomycin. The patient is already on IV acyclovir. Post intubation, he was placed on propofol at 35 mcg/kg/m. He did develop some hypotension is currently receiving a bolus of normal saline. Blood gases post intubation showed a pH of 7.3 with a pCO2 of 30 and pO2 more than 400. Patient is currently on assist control mode at the rate of 24, tidal volume of 450, FiO2 of 100% and a PEEP of 5. The patient is also in acute kidney injury on top of chronic renal failure. His admission creatinine was at 4.07 and dropped down to 2.9. The patient is pancytopenic due to his myeloma with a white second of 2.1, hemoglobin of 7.9 and platelet count of 27. This is a unit of platelets today On 01/17/2023, the patient remains intubated on a mechanical ventilator. Today he is on propofol running at 30 mcg/kg/m. He only grimaces to deep painful stimulation. He does not follow any commands. Sedation was started to maintain synchrony with a mechanical ventilator. Noted the patient was quite unresponsive yesterday prior to his intubation. Subsequently, CAT scan of the brain was done that showed no acute abnormalities. The patient remains intubated on a mechanical ventilator. Today, he is on assist-control mode at the rate of 14, tidal volume of 450, FiO2 of 40% and a PEEP of 5. Chest x-ray shows ET tube being in a good location. There is lower lobe pulmonary infiltrates bilaterally. Suspect an underlying aspiration pneumonia. Antibiotic coverage is modified the patient is currently on a combination of Zosyn, vancomycin. He is also 96 acyclovir suspecting an underlying encephalitis. Exact cause for this patient is an underlying deterioration has n ot been adequately established. EEG has shown diffuse slowing and moderate to severe encephalopathy. Unable to do a lumbar puncture. MRI of the brain was nonrevealing. CAT scan of the brain showed negative abnormalities. He has progressive multiple myeloma. There is obvious hematologic abnormalities with pancytopenia. The white cell count is down to 1.4 and there is a further drop in hemoglobin down to 6.8 and his platelet count is at 55. Encountered some limited bleeding from his puncture sites in his troponin lumen catheter and arterial line site. The patient was given platelets yesterday and the bleeding was controlled. He may benefit from a unit of packed RBC in addition. His blood gases from today shows a pH of 7.51 with a pCO2 of 37 and pO2 of 160. BUN is at 9 with a creatinine of 2.7 and a sodium level is at 143. Hemodynamically, the patient is on no pressors. IV fluids are in the form of bicarb infusion at the rate of 80 mL an hour. Nephrology is on the case. 2022, the patient remains unresponsive. We gave him a sedation holiday for a prolonged period of time yesterday and unfortunately, there was no neurologic response. There was only grimaces to deep painful stimulation. Otherwise, he does not open up his eyes, does not follow any commands, motor and sensory functions cannot be assessed, no seizure activity has been noted an EEG was done that showed moderate to severe encephalopathy without any epileptic foci. The patient is afebrile. No neck stiffness. Unable to do a lumbar puncture. I discussed the case was anesthesia and there were not willing to do his lumbar puncture specially with his underlying thrombocytopenia. Note that intervent ional radiology try to obtain a lumbar puncture under fluoroscopy earlier and this was not successful. He remains on IV acyclovir. He remains on broad- spectrum antibiotics with a combination of Zosyn and vancomycin. While on a mechanical ventilator, his condition remained stable. Is on assist-control at the rate of 14, tidal volume of 450, FiO2 40% and a PEEP of 5. His chest x-ray remains unchanged. Hemodynamically, he did drop his pressure yesterday and he was started on a low-dose of norepinephrine which is currently running at 0.02 mcg/kg/m. Cardiac rhythm is sinus. He is producing adequate amount of urine output. His hematologic profile from today shows a WBC count of 2, hemoglobin of 7.8, platelet count was 50 from yesterday pending from today. Blood gas shows a pH of 7.45 with a pCO2 of 38 and pO2 of 134. The BUN is at 9 with a creatinine of 2.7 as the patient's chronic kidney disease secondary to multiple myeloma. Sodium is 144 with a potassium level of 4.3. Vancomycin trough was 33. Sputum culture was negative. Blood cultures were negative. Various consultants involved including hematology regarding his progressive myeloma. He is also under the care of neurology to start the patient on Keppra. Is also on Vimpat. Nephrology is also on the case. No major change in his condition at this point in time. Reevaluated today on 01/19/2023, patient remains in the ICU, intubated and mechanically ventilated. Patient is on assist control rate of 14 tidal volume 450 FiO2 35% and PEEP of 5 ABG showed a pO2 of 138 pCO2 36 pH of 7.45. Patient remains empirically on acyclovir, is also on Zosyn, patient is receiving Keppra and Vimpat for possible seizures. Based on EEG. Patient basically required lumbar puncture, but that could not be done mostly because his low platelets, and we will recommend platelet transfusion just before lumbar puncture to be performed by anesthesia. His labs today are quite abnormal including a WBC count of 2.3 hemoglobin 6.8 platelets are 35,000, this is consistent with a picture of pancytopenia. Basic metabolic profile is normal however his BUN is 12 creatinine 2.96. Since admission the patient received 4 units of packed RBCs, 1 unit of fresh frozen plasma and 2 units of platelets. Patient remains unresponsive to any stimuli. And he is being followed closely by multiple consultants including neurology. Chest x-ray today is consistent with bilateral pneumonia right more so than left, although the possibility of underlying pulmonary edema is not entirely ruled out but felt to be less likely. HSV serology is nondiagnostic and basically negative. Reevaluated today on 01/20/2023, patient remains in the ICU intubated mechanically ventilated, unresponsive to any stimuli, remains on assist control rate of 14 tidal volume 450 FiO2 35% and PEEP of 5 ABG showed a pO2 of 121 pCO2 36 pH of 7.41. Anesthesia declined lumbar puncture mostly because it could not be done by interventional radiology and they felt that they would not be able to do it. Patient remains on acyclovir and vancomycin, hardly any change in the last 24 hours in his neurological status. Patient is not requiring any sedation. He is mostly on seizure medications including Keppra and Vimpat. Remains pancytopenic with low WBC count of 2.4, low hemoglobin of 7.4, and low platelets of 26,000. Electrolytes are normal except for slightly elevated sodium of 146. His BUN is 16 creatinine 2.97. Liver enzymes are a bit elevated, ammonia level is pending. Pro-calcitonin level is 1.51. Since admission the patient received a total of 4 units of packed RBCs, and 2 units of platelets he received 1 unit of fresh frozen plasma. Objective - Vital Signs Vital signs: Vital Signs Temp 98.0 F 01/20/23 08:00 Pulse 93 01/20/23 12:00 Resp 19 01/20/23 12:00 BP 111/74 01/20/23 06:00 Pulse Ox 99 01/20/23 12:00 FiO2 35 01/20/23 12:00 Intake & Output 01/19/23 01/20/23 01/20/23 18:59 06:59 18:59 Intake Total 2428 1675.800 932.333 Output Total 1735 1543 1250 Balance 693 132.800 -317.667 Weight 96.3 kg 95.799 kg Intake: IV 816 156 233 0.9 Sodium Chloride 130 120 90 Acyclovir Sodium 900 mg 250 In Sodium Chloride 0.9% 250 ml @ 268 mls/hr IVPB Q12H NNAMDI Rx#:[id number] Lacosamide IV 50 mg In 100 50 Sodium Chloride 0.9% 50 ml @ 100 mls/hr IVPB BID NNAMDI Rx#:[id number] Piperacillin-Tazobactam 3 200 75 .375 gm In Sodium Chloride 0.9% 100 ml @ 25 mls/hr IVPB Q8H NNAMDI Rx#: [id number] Pressure Bag (0.9 Sodium 36 36 18 Chloride) levETIRAcetam IV 500 mg 100 In Sodium Chloride 0.9% 100 ml @ 400 mls/hr IVPB Q12HR NNAMDI Rx#:[id number] Intake, IV Titration 29.800 15.333 Amount Clevidipine Butyrate 25 29.800 15.333 mg In Empty Bag 1 bag @ 1 MG/HR 2 mls/hr IV .Q24H NNAMDI Rx#:[id number] Tube Feeding 672 590 354 Blood Product 310 Rc As-1 Unit 310 [id number] Other 630 900 330 Output: Urine 1735 1540 1250 Stool 3 Other: Voiding Method Indwelling Catheter Indwelling Catheter ABP, PAP, CO, CI - Last Documented Arterial Blood Pressure 165/85 - Exam Physical Exam: Revealed 67-year-old white male unresponsive to any stimuli. Head: Atraumatic, normocephalic. Endotracheal tube and orogastric tube are intact. HEENT:[Neck is supple.] [No neck masses.] [No thyromegaly.] [No JVD.] Chest: [Symmetrical chest expansion, crackles at the bases. No rhonchi and no wheezes. Cardiac Exam: [Normal S1 and S2, no S3 gallop, no murmur.] Abdomen: [Soft, nontender, no megaly, no rebound, no guarding, normal bowel sounds.] Extremities: [No clubbing, 1+ bipedal edema, no cyanosis.] Neurological Exam: Pupils are 3 mm and sluggishly reactive to light, patient does have a gag reflex, not responsive to any verbal or painful stimuli, no clonus, no Babinski, absent reflexes Skin: Multiple areas of ecchymosis is noted. And areas of purpura. - Labs CBC & Chem 7: 01/20/23 05:40 01/20/23 05:40 Labs: Abnormal Lab Results - Last 24 Hours (Table) 01/19/23 01/19/23 01/20/23 Range/Units 06:59 17:53 05:40 WBC (3.8-10.6) k/uL RBC (4.30-5.90) m/uL Hgb (13.0-17.5) gm/dL Hct (39.0-53.0) % RDW (11.5-15.5) % Plt Count (150-450) k/uL Lymphocytes # (Manual) (1.0-4.8) k/uL Myelocytes # (Manual) (0) k/uL Nucleated RBCs (0-0) /100 WBC ABG pO2 (83-108) mmHg ABG O2 Saturation (94-97) % Sodium (137-145) mmol/L Chloride (98-107) mmol/L Carbon Dioxide (22-30) mmol/L Creatinine (0.66-1.25) mg/dL Glucose (74-99) mg/dL POC Glucose (mg/dL) 125 H (70-110) mg/dL Calcium (8.4-10.2) mg/dL AST (17-59) U/L Alkaline Phosphatase (38-126) U/L C-Reactive Protein (<1.0) mg/dL Albumin (3.5-5.0) g/dL Procalcitonin 1.51 H (0.02-0.09) ng/mL Crossmatch See Detail 01/20/23 01/20/23 01/20/23 Range/Units 05:40 05:40 06:09 WBC 2.4 L (3.8-10.6) k/uL RBC 2.51 L (4.30-5.90) m/uL Hgb 7.4 L (13.0-17.5) gm/dL Hct 22.1 L (39.0-53.0) % RDW 18.7 H (11.5-15.5) % Plt Count 26 L (150-450) k/uL Lymphocytes # (Manual) 0.14 L (1.0-4.8) k/uL Myelocytes # (Manual) 0.02 H (0) k/uL Nucleated RBCs 2 H (0-0) /100 WBC ABG pO2 121 H (83-108) mmHg ABG O2 Saturation 99.0 H (94-97) % Sodium 146 H (137-145) mmol/L Chloride 118 H (98-107) mmol/L Carbon Dioxide 21 L (22-30) mmol/L Creatinine 2.97 H (0.66-1.25) mg/dL Glucose 123 H (74-99) mg/dL POC Glucose (mg/dL) (70-110) mg/dL Calcium 7.6 L (8.4-10.2) mg/dL AST 177 H (17-59) U/L Alkaline Phosphatase 261 H (38-126) U/L C-Reactive Protein 6.7 H (<1.0) mg/dL Albumin 1.8 L (3.5-5.0) g/dL Procalcitonin (0.02-0.09) ng/mL Crossmatch 01/20/23 01/20/23 Range/Units 06:35 11:45 WBC (3.8-10.6) k/uL RBC (4.30-5.90) m/uL Hgb (13.0-17.5) gm/dL Hct (39.0-53.0) % RDW (11.5-15.5) % Plt Count (150-450) k/uL Lymphocytes # (Manual) (1.0-4.8) k/uL Myelocytes # (Manual) (0) k/uL Nucleated RBCs (0-0) /100 WBC ABG pO2 (83-108) mmHg ABG O2 Saturation (94-97) % Sodium (137-145) mmol/L Chloride (98-107) mmol/L Carbon Dioxide (22-30) mmol/L Creatinine (0.66-1.25) mg/dL Glucose (74-99) mg/dL POC Glucose (mg/dL) 132 H 132 H (70-110) mg/dL Calcium (8.4-10.2) mg/dL AST (17-59) U/L Alkaline Phosphatase (38-126) U/L C-Reactive Protein (<1.0) mg/dL Albumin (3.5-5.0) g/dL Procalcitonin (0.02-0.09) ng/mL Crossmatch Microbiology - Last 24 Hours (Table) 01/19/23 16:19 Gram Stain - Preliminary Sputum Sputum Culture - Preliminary 01/19/23 14:39 Urine Culture - Preliminary Urine,Catheterized 01/16/23 15:23 Gram Stain - Final Sputum Sputum Culture - Final Brisa albicans Assessment and Plan Assessment: Impression: Acute hypoxic respiratory failure secondary to altered mental status and acute bilateral pneumonia, possibly aspiration pneumonia. Patient has been on vancomycin and Zosyn. Altered mental status, possible seizures, acute toxic metabolic encephalopathy. History of seizures History of posterior reversible encephalopathy syndrome based on MRI from 12/29/2022, however subsequently the patient had full recovery. Multiple myeloma with progression, possible POSTDOCTORAL SCIENTIST involvement with multiple myeloma strongly recommend lumbar puncture. If lumbar puncture could not be performed, I was definitely urge the admitting physician and the different consultants on the case to seriously consider transferring the patient to a [facility] center. Pancytopenia secondary to above. Chronic kidney disease secondary to multiple myeloma chronic stage IIIB kidney disease. Acute on chronic kidney injury. History of pulmonary embolism Coronary arteriosclerosis History of T12 fracture and multiple vertebral fractures due to multiple myeloma Dyslipidemia Possible sepsis from pneumonia at one point required briefly norepinephrine and fluids. This was addressed by Dr. Alvarez prior to my evaluation Recommendation: Considering anesthesia is declining lumbar puncture and considering that this could not be done by interventional radiology I would suggest transfer to a tertiary care center. Continue ventilatory support Continue Zosyn, acyclovir, and vancomycin Continue seizure medications including Keppra and Vimpat Continue to monitor daily labs including daily CBC and daily metabolic profile Nutritional support to continue with enteral feeding. GI and DVT prophylaxis. Patient is being followed by multiple services including nephrology, oncology, neurology, and infectious disease. Condition remains critical Critical care time is over 30 minutes Time with Patient: Greater than 30
[2023-01-20] MEDS ORDERED: LACTULOSE 20 GM/30 ML CUP PO ONE (13:39)
--- NOTE | 2023-01-20 14:41 | PN ---
PROGRESS NOTE DATE OF SERVICE: 01/20/2023 Please consider this as a Discharge Summary. SUBJECTIVE: This 67-year-old gentleman was admitted with possible sepsis, also had PRES in the MRI. The patient is mechanically intubated in the ICU. Lumbar puncture recommended by neurologist could not be done and Dr. Giron is recommending transfer to a tertiary care center. The patient also had pancytopenia related to the multiple myeloma. Patient is immunocompromised. Brisa albicans grown from the sputum. PAST MEDICAL HISTORY: Could not be taken. REVIEW OF SYSTEMS: Could not be taken. CURRENT MEDICATIONS: Medications are reviewed include Keppra, dose and rest of medications noted, Zosyn. PHYSICAL EXAMINATION: VITAL SIGNS: Pulse is 96, blood pressure 150/82, respiration 27. Vent settings are noted. HEENT: Conjunctivae normal. NECK: No jugular venous distention. CARDIOVASCULAR: S1, S2 muffled. RESPIRATIONS: Few scattered rhonchi, no crackles. ABDOMEN: Soft. NERVOUS SYSTEM: Mechanically sedated. LABORATORY DATA: Reviewed, hemoglobin 7.4, rest of labs reviewed. ASSESSMENT: 1. Possible sepsis with primary undetermined. 2. Change in mental status, metabolic, rule out encephalitis. 3. Possible PRES in MRI. 4. Pancytopenia secondary to multiple myeloma. 5. Brisa albicans from the sputum. 6. History of pulmonary embolism. 7. History of coronary artery disease. 8. Multiple medical issues. RECOMMENDATIONS: To continue current management. Continue with empiric antibiotics. Follow with Neurology and Infectious Disease. Otherwise, we will also try to transfer the patient to a tertiary care center for further recommendations. MMODL / IJN: [id number] /
--- NOTE | 2023-01-20 14:49 | P.PN ---
Subjective Patient is seen in follow-up for acute kidney injury on chronic kidney disease. Renal function stable. Receiving tube feeds. Hemoglobin better post blood transfusion. Off IV fluids. Intubated. Off sedation but still not arousable. Receiving tube feeds. Vital signs are stable. HEENT: Intubated. LUNGS: No audible rhonchi or wheezes. HEART: Regular rate and rhythm. ABDOMEN: No distention. EXTREMITITES: No edema. Objective - Vital Signs Vital signs: Vital Signs Temp 97.4 F L 01/20/23 13:00 Pulse 97 01/20/23 13:00 Resp 20 01/20/23 13:00 BP 111/74 01/20/23 06:00 Pulse Ox 98 01/20/23 13:00 FiO2 35 01/20/23 13:00 Intake & Output 01/19/23 01/20/23 01/20/23 18:59 06:59 18:59 Intake Total 2428 9023.637 7609.333 Output Total 1735 1543 1570 Balance 693 132.800 -473.667 Weight 96.3 kg 95.799 kg Intake: IV 816 156 279 0.9 Sodium Chloride 130 120 130 Acyclovir Sodium 900 mg 250 In Sodium Chloride 0.9% 250 ml @ 268 mls/hr IVPB Q12H NNAMDI Rx#:[id number] Lacosamide IV 50 mg In 100 50 Sodium Chloride 0.9% 50 ml @ 100 mls/hr IVPB BID NNAMDI Rx#:[id number] Piperacillin-Tazobactam 3 200 75 .375 gm In Sodium Chloride 0.9% 100 ml @ 25 mls/hr IVPB Q8H NNAMDI Rx#: [id number] Pressure Bag (0.9 Sodium 36 36 24 Chloride) levETIRAcetam IV 500 mg 100 In Sodium Chloride 0.9% 100 ml @ 400 mls/hr IVPB Q12HR NNAMDI Rx#:[id number] Intake, IV Titration 29.800 15.333 Amount Clevidipine Butyrate 25 29.800 15.333 mg In Empty Bag 1 bag @ 1 MG/HR 2 mls/hr IV .Q24H NNAMDI Rx#:[id number] Tube Feeding 672 590 413 Blood Product 310 Rc As-1 Unit 310 [id number] Other 630 900 389 Output: Urine 1735 1540 1570 Stool 3 Other: Voiding Method Indwelling Catheter Indwelling Catheter Indwelling Catheter ABP, PAP, CO, CI - Last Documented Arterial Blood Pressure 127/65 - Labs CBC & Chem 7: 01/20/23 05:40 01/20/23 05:40 Labs: Abnormal Lab Results - Last 24 Hours (Table) 01/19/23 01/20/23 01/20/23 Range/Units 17:53 05:40 05:40 WBC 2.4 L (3.8-10.6) k/uL RBC 2.51 L (4.30-5.90) m/uL Hgb 7.4 L (13.0-17.5) gm/dL Hct 22.1 L (39.0-53.0) % RDW 18.7 H (11.5-15.5) % Plt Count 26 L (150-450) k/uL Lymphocytes # (Manual) 0.14 L (1.0-4.8) k/uL Myelocytes # (Manual) 0.02 H (0) k/uL Nucleated RBCs 2 H (0-0) /100 WBC ABG pO2 (83-108) mmHg ABG O2 Saturation (94-97) % Sodium (137-145) mmol/L Chloride (98-107) mmol/L Carbon Dioxide (22-30) mmol/L Creatinine (0.66-1.25) mg/dL Glucose (74-99) mg/dL POC Glucose (mg/dL) 125 H (70-110) mg/dL Calcium (8.4-10.2) mg/dL AST (17-59) U/L Alkaline Phosphatase (38-126) U/L Ammonia (<30) umol/L C-Reactive Protein (<1.0) mg/dL Albumin (3.5-5.0) g/dL Procalcitonin 1.51 H (0.02-0.09) ng/mL 01/20/23 01/20/23 01/20/23 Range/Units 05:40 06:09 06:35 WBC (3.8-10.6) k/uL RBC (4.30-5.90) m/uL Hgb (13.0-17.5) gm/dL Hct (39.0-53.0) % RDW (11.5-15.5) % Plt Count (150-450) k/uL Lymphocytes # (Manual) (1.0-4.8) k/uL Myelocytes # (Manual) (0) k/uL Nucleated RBCs (0-0) /100 WBC ABG pO2 121 H (83-108) mmHg ABG O2 Saturation 99.0 H (94-97) % Sodium 146 H (137-145) mmol/L Chloride 118 H (98-107) mmol/L Carbon Dioxide 21 L (22-30) mmol/L Creatinine 2.97 H (0.66-1.25) mg/dL Glucose 123 H (74-99) mg/dL POC Glucose (mg/dL) 132 H (70-110) mg/dL Calcium 7.6 L (8.4-10.2) mg/dL AST 177 H (17-59) U/L Alkaline Phosphatase 261 H (38-126) U/L Ammonia (<30) umol/L C-Reactive Protein 6.7 H (<1.0) mg/dL Albumin 1.8 L (3.5-5.0) g/dL Procalcitonin (0.02-0.09) ng/mL 01/20/23 01/20/23 Range/Units 10:45 11:45 WBC (3.8-10.6) k/uL RBC (4.30-5.90) m/uL Hgb (13.0-17.5) gm/dL Hct (39.0-53.0) % RDW (11.5-15.5) % Plt Count (150-450) k/uL Lymphocytes # (Manual) (1.0-4.8) k/uL Myelocytes # (Manual) (0) k/uL Nucleated RBCs (0-0) /100 WBC ABG pO2 (83-108) mmHg ABG O2 Saturation (94-97) % Sodium (137-145) mmol/L Chloride (98-107) mmol/L Carbon Dioxide (22-30) mmol/L Creatinine (0.66-1.25) mg/dL Glucose (74-99) mg/dL POC Glucose (mg/dL) 132 H (70-110) mg/dL Calcium (8.4-10.2) mg/dL AST (17-59) U/L Alkaline Phosphatase (38-126) U/L Ammonia 34 H (<30) umol/L C-Reactive Protein (<1.0) mg/dL Albumin (3.5-5.0) g/dL Procalcitonin (0.02-0.09) ng/mL Microbiology - Last 24 Hours (Table) 01/19/23 16:19 Gram Stain - Preliminary Sputum Sputum Culture - Preliminary Brisa albicans 01/19/23 14:39 Urine Culture - Preliminary Urine,Catheterized 01/16/23 15:23 Gram Stain - Final Sputum Sputum Culture - Final Brisa albicans Assessment and Plan Plan: Assessment: 1. Acute kidney injury mostly prerenal improved with IV hydration. Creatinine stable at 2.97 today. Nonoliguric. 2. 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 3. Multiple myeloma with bony metastasis. 4. Hypernatremia from lack of oral water intake. 5. Anemia. Multifactorial. Component of myeloma and chronic kidney disease. 6. Metabolic encephalopathy. Concern for encephalitis. ID and neurology following. Plan: Increase water flushes to 400 mL every 6 hours with tube feeds. Avoid nephrotoxins. Continue to monitor renal function and urine output. Awaits transfer to another facility to get lumbar puncture done.
--- NOTE | 2023-01-20 15:40 | P.PN ---
Subjective Progress Note Date: 01/20/23 Principal diagnosis: Encephalopathy. Multiple myeloma, progressive. Seen in ICU, sedated, mechanically ventilated. No acute distress seen, no family was at the bedside this morning Objective - Vital Signs Vital signs: Vital Signs Temp 97.4 F L 01/20/23 13:00 Pulse 97 01/20/23 13:00 Resp 20 01/20/23 13:00 BP 111/74 01/20/23 06:00 Pulse Ox 98 01/20/23 13:00 FiO2 35 01/20/23 13:00 Intake & Output 01/19/23 01/20/23 01/20/23 18:59 06:59 18:59 Intake Total 2428 8219.949 6382.333 Output Total 1735 1543 1370 Balance 693 132.800 -355.667 Weight 96.3 kg 95.799 kg Intake: IV 816 156 256 0.9 Sodium Chloride 130 120 110 Acyclovir Sodium 900 mg 250 In Sodium Chloride 0.9% 250 ml @ 268 mls/hr IVPB Q12H [facility] Rx#:[id number] Lacosamide IV 50 mg In 100 50 Sodium Chloride 0.9% 50 ml @ 100 mls/hr IVPB BID [facility] Rx#:[id number] Piperacillin-Tazobactam 3 200 75 .375 gm In Sodium Chloride 0.9% 100 ml @ 25 mls/hr IVPB Q8H [facility] Rx#: [id number] Pressure Bag (0.9 Sodium 36 36 21 Chloride) levETIRAcetam IV 500 mg 100 In Sodium Chloride 0.9% 100 ml @ 400 mls/hr IVPB Q12HR [facility] Rx#:[id number] Intake, IV Titration 29.800 15.333 Amount Clevidipine Butyrate 25 29.800 15.333 mg In Empty Bag 1 bag @ 1 MG/HR 2 mls/hr IV .Q24H [facility] Rx#:[id number] Tube Feeding 672 590 413 Blood Product 310 Rc As-1 Unit 310 [id number] Other 630 900 330 Output: Urine 1735 1540 1370 Stool 3 Other: Voiding Method Indwelling Catheter Indwelling Catheter Indwelling Catheter ABP, PAP, CO, CI - Last Documented Arterial Blood Pressure 127/65 - Constitutional General appearance: Present: average body habitus, no acute distress - EENT Eyes: Present: anicteric sclerae, PERRLA - Respiratory Respiratory: bilateral: CTA (on vent) - Cardiovascular Rhythm: regular Heart sounds: normal: S1, S2 Abnormal Heart Sounds: Absent: systolic murmur, diastolic murmur, rub, S3 Gallop, S4 Gallop, click, other - Peripheral edema leg Peripheral Edema: bilateral: Trace - Gastrointestinal General gastrointestinal: Present: normal bowel sounds, soft - Integumentary Integumentary: Present: pale - Psychiatric Psychiatric Comment(s): sedated Psychiatric: Absent: A&O x's 3, appropriate affect, intact judgment & insight - Labs CBC & Chem 7: 01/20/23 05:40 01/20/23 05:40 Labs: Abnormal Lab Results - Last 24 Hours (Table) 01/19/23 01/19/23 01/20/23 Range/Units 06:59 17:53 05:40 WBC (3.8-10.6) k/uL RBC (4.30-5.90) m/uL Hgb (13.0-17.5) gm/dL Hct (39.0-53.0) % RDW (11.5-15.5) % Plt Count (150-450) k/uL Lymphocytes # (Manual) (1.0-4.8) k/uL Myelocytes # (Manual) (0) k/uL Nucleated RBCs (0-0) /100 WBC ABG pO2 (83-108) mmHg ABG O2 Saturation (94-97) % Sodium (137-145) mmol/L Chloride (98-107) mmol/L Carbon Dioxide (22-30) mmol/L Creatinine (0.66-1.25) mg/dL Glucose (74-99) mg/dL POC Glucose (mg/dL) 125 H (70-110) mg/dL Calcium (8.4-10.2) mg/dL AST (17-59) U/L Alkaline Phosphatase (38-126) U/L Ammonia (<30) umol/L C-Reactive Protein (<1.0) mg/dL Albumin (3.5-5.0) g/dL Procalcitonin 1.51 H (0.02-0.09) ng/mL Crossmatch See Detail 01/20/23 01/20/23 01/20/23 Range/Units 05:40 05:40 06:09 WBC 2.4 L (3.8-10.6) k/uL RBC 2.51 L (4.30-5.90) m/uL Hgb 7.4 L (13.0-17.5) gm/dL Hct 22.1 L (39.0-53.0) % RDW 18.7 H (11.5-15.5) % Plt Count 26 L (150-450) k/uL Lymphocytes # (Manual) 0.14 L (1.0-4.8) k/uL Myelocytes # (Manual) 0.02 H (0) k/uL Nucleated RBCs 2 H (0-0) /100 WBC ABG pO2 121 H (83-108) mmHg ABG O2 Saturation 99.0 H (94-97) % Sodium 146 H (137-145) mmol/L Chloride 118 H (98-107) mmol/L Carbon Dioxide 21 L (22-30) mmol/L Creatinine 2.97 H (0.66-1.25) mg/dL Glucose 123 H (74-99) mg/dL POC Glucose (mg/dL) (70-110) mg/dL Calcium 7.6 L (8.4-10.2) mg/dL AST 177 H (17-59) U/L Alkaline Phosphatase 261 H (38-126) U/L Ammonia (<30) umol/L C-Reactive Protein 6.7 H (<1.0) mg/dL Albumin 1.8 L (3.5-5.0) g/dL Procalcitonin (0.02-0.09) ng/mL Crossmatch 01/20/23 01/20/23 01/20/23 Range/Units 06:35 10:45 11:45 WBC (3.8-10.6) k/uL RBC (4.30-5.90) m/uL Hgb (13.0-17.5) gm/dL Hct (39.0-53.0) % RDW (11.5-15.5) % Plt Count (150-450) k/uL Lymphocytes # (Manual) (1.0-4.8) k/uL Myelocytes # (Manual) (0) k/uL Nucleated RBCs (0-0) /100 WBC ABG pO2 (83-108) mmHg ABG O2 Saturation (94-97) % Sodium (137-145) mmol/L Chloride (98-107) mmol/L Carbon Dioxide (22-30) mmol/L Creatinine (0.66-1.25) mg/dL Glucose (74-99) mg/dL POC Glucose (mg/dL) 132 H 132 H (70-110) mg/dL Calcium (8.4-10.2) mg/dL AST (17-59) U/L Alkaline Phosphatase (38-126) U/L Ammonia 34 H (<30) umol/L C-Reactive Protein (<1.0) mg/dL Albumin (3.5-5.0) g/dL Procalcitonin (0.02-0.09) ng/mL Crossmatch Microbiology - Last 24 Hours (Table) 01/19/23 16:19 Gram Stain - Preliminary Sputum Sputum Culture - Preliminary Brisa albicans 01/19/23 14:39 Urine Culture - Preliminary Urine,Catheterized 01/16/23 15:23 Gram Stain - Final Sputum Sputum Culture - Final Brisa albicans - Imaging and Cardiology Chest x-ray: report reviewed EEG report reviewed Assessment and Plan (1) Altered mental status Current Visit: Yes Status: Acute Code(s): R41.82 - ALTERED MENTAL STATUS, UNSPECIFIED SNOMED Code(s): 233624545 (2) Fever of unknown origin Current Visit: Yes Status: Acute Priority: High Code(s): R50.9 - FEVER, UNSPECIFIED SNOMED Code(s): 3927492 (3) Pancytopenia Current Visit: Yes Status: Acute Priority: High Code(s): D61.818 - OTHER PANCYTOPENIA SNOMED Code(s): 115314650 (4) Multiple myeloma Current Visit: Yes Status: Chronic Priority: High Code(s): C90.00 - MULTIPLE MYELOMA NOT HAVING ACHIEVED REMISSION SNOMED Code(s): 297811660 Plan: Altered mental status -Persistent, progressive, intubated and mechanically ventilated -Pancultures negative, sputum + for brisa. On empiric antiviral and antibacterial medications. ID following. -Pending transfer to [facility] facility, needing LP for CSF evaluation, unable to be performed here Fever -Patient has remained afebrile since admission Pancytopenia -Progressive, secondary to progressive myeloma. -Transfuse for hemoglobin less than 7, hemoglobin 4.4 today s/p 1 unit yesterday. Transfuse for platelet count less than 10,000 or if patient is symptomatic, plt 26,000 today. WBC 2.4, ANC 2000, no acute intervention. CBC daily Multiple myeloma -Diagnosed in 2016. Multiple lines of therapy including bone marrow transplant. Unfortunately, pt recently has had progression of disease. He was recently followed up by Hematology at [facility] in [place]. Plan was for salvage therapy and possible Car-T treatment. All treatment will be on hold until patient's current condition has adequately resolved. Dr. Nancy Avelar called family yesterday, unable to take call. He will contact family through son's cell phone number today at their request and update them. attests: I seen and examined patient, performed H&P, developed impression and plan of care. Discussed with dictator. Agree with documentation, dictated as a scribe
--- NOTE | 2023-01-20 17:04 | P.PN ---
Subjective Progress Note Date: 01/20/23 Principal diagnosis: Fever Patient is a 67-year-old male with a past medical history significant for multiple myeloma on chemotherapy patient also history of hyperlipidemia coronary disease PE and half-way resident patient was brought into the ER for evaluation of fever , Patient also have an episode of vomiting and persistent in the left lower quadrant.Patient did have worsening of his respiratory status ended up getting intubated and the patient was transferred to the ICU 01/16/2023. On today's evaluation that is 01/20/2023 the patient remains to be afebrile, the patient is hemodynamically stable not requiring any pressor support and no significant purulent secretion through the ET, patient FiO2 is stable at 35%, patient has been tolerating his tube feeds and no diarrhea has been reported by the nursing staff Objective - Vital Signs Vital signs: Vital Signs Temp 98.0 F 01/20/23 08:00 Pulse 93 01/20/23 12:00 Resp 19 01/20/23 12:00 BP 111/74 01/20/23 06:00 Pulse Ox 99 01/20/23 12:00 FiO2 35 01/20/23 12:00 Intake & Output 01/19/23 01/20/23 01/20/23 18:59 06:59 18:59 Intake Total 2428 1675.800 932.333 Output Total 1735 1543 1250 Balance 693 132.800 -317.667 Weight 96.3 kg 95.799 kg Intake: IV 816 156 233 0.9 Sodium Chloride 130 120 90 Acyclovir Sodium 900 mg 250 In Sodium Chloride 0.9% 250 ml @ 268 mls/hr IVPB Q12H [facility] Rx#:[id number] Lacosamide IV 50 mg In 100 50 Sodium Chloride 0.9% 50 ml @ 100 mls/hr IVPB BID [facility] Rx#:[id number] Piperacillin-Tazobactam 3 200 75 .375 gm In Sodium Chloride 0.9% 100 ml @ 25 mls/hr IVPB Q8H [facility] Rx#: [id number] Pressure Bag (0.9 Sodium 36 36 18 Chloride) levETIRAcetam IV 500 mg 100 In Sodium Chloride 0.9% 100 ml @ 400 mls/hr IVPB Q12HR [facility] Rx#:[id number] Intake, IV Titration 29.800 15.333 Amount Clevidipine Butyrate 25 29.800 15.333 mg In Empty Bag 1 bag @ 1 MG/HR 2 mls/hr IV .Q24H [facility] Rx#:[id number] Tube Feeding 672 590 354 Blood Product 310 Rc As-1 Unit 310 [id number] Other 630 900 330 Output: Urine 1735 1540 1250 Stool 3 Other: Voiding Method Indwelling Catheter Indwelling Catheter ABP, PAP, CO, CI - Last Documented Arterial Blood Pressure 165/85 - Exam GENERAL DESCRIPTION: Elderly male intubated on the vent RESPIRATORY SYSTEM: Unlabored breathing , decreased breath sounds at bases HEART: S1 S2 regular rate and rhythm ABDOMEN: Soft , no tenderness EXTREMITIES: No edema feet - Labs CBC & Chem 7: 01/20/23 05:40 01/20/23 05:40 Labs: Abnormal Lab Results - Last 24 Hours (Table) 01/19/23 01/19/23 01/20/23 Range/Units 06:59 17:53 05:40 WBC (3.8-10.6) k/uL RBC (4.30-5.90) m/uL Hgb (13.0-17.5) gm/dL Hct (39.0-53.0) % RDW (11.5-15.5) % Plt Count (150-450) k/uL Lymphocytes # (Manual) (1.0-4.8) k/uL Myelocytes # (Manual) (0) k/uL Nucleated RBCs (0-0) /100 WBC ABG pO2 (83-108) mmHg ABG O2 Saturation (94-97) % Sodium (137-145) mmol/L Chloride (98-107) mmol/L Carbon Dioxide (22-30) mmol/L Creatinine (0.66-1.25) mg/dL Glucose (74-99) mg/dL POC Glucose (mg/dL) 125 H (70-110) mg/dL Calcium (8.4-10.2) mg/dL AST (17-59) U/L Alkaline Phosphatase (38-126) U/L C-Reactive Protein (<1.0) mg/dL Albumin (3.5-5.0) g/dL Procalcitonin 1.51 H (0.02-0.09) ng/mL Crossmatch See Detail 01/20/23 01/20/23 01/20/23 Range/Units 05:40 05:40 06:09 WBC 2.4 L (3.8-10.6) k/uL RBC 2.51 L (4.30-5.90) m/uL Hgb 7.4 L (13.0-17.5) gm/dL Hct 22.1 L (39.0-53.0) % RDW 18.7 H (11.5-15.5) % Plt Count 26 L (150-450) k/uL Lymphocytes # (Manual) 0.14 L (1.0-4.8) k/uL Myelocytes # (Manual) 0.02 H (0) k/uL Nucleated RBCs 2 H (0-0) /100 WBC ABG pO2 121 H (83-108) mmHg ABG O2 Saturation 99.0 H (94-97) % Sodium 146 H (137-145) mmol/L Chloride 118 H (98-107) mmol/L Carbon Dioxide 21 L (22-30) mmol/L Creatinine 2.97 H (0.66-1.25) mg/dL Glucose 123 H (74-99) mg/dL POC Glucose (mg/dL) (70-110) mg/dL Calcium 7.6 L (8.4-10.2) mg/dL AST 177 H (17-59) U/L Alkaline Phosphatase 261 H (38-126) U/L C-Reactive Protein 6.7 H (<1.0) mg/dL Albumin 1.8 L (3.5-5.0) g/dL Procalcitonin (0.02-0.09) ng/mL Crossmatch 01/20/23 01/20/23 Range/Units 06:35 11:45 WBC (3.8-10.6) k/uL RBC (4.30-5.90) m/uL Hgb (13.0-17.5) gm/dL Hct (39.0-53.0) % RDW (11.5-15.5) % Plt Count (150-450) k/uL Lymphocytes # (Manual) (1.0-4.8) k/uL Myelocytes # (Manual) (0) k/uL Nucleated RBCs (0-0) /100 WBC ABG pO2 (83-108) mmHg ABG O2 Saturation (94-97) % Sodium (137-145) mmol/L Chloride (98-107) mmol/L Carbon Dioxide (22-30) mmol/L Creatinine (0.66-1.25) mg/dL Glucose (74-99) mg/dL POC Glucose (mg/dL) 132 H 132 H (70-110) mg/dL Calcium (8.4-10.2) mg/dL AST (17-59) U/L Alkaline Phosphatase (38-126) U/L C-Reactive Protein (<1.0) mg/dL Albumin (3.5-5.0) g/dL Procalcitonin (0.02-0.09) ng/mL Crossmatch Microbiology - Last 24 Hours (Table) 01/19/23 16:19 Gram Stain - Preliminary Sputum Sputum Culture - Preliminary Brisa albicans 01/19/23 14:39 Urine Culture - Preliminary Urine,Catheterized 01/16/23 15:23 Gram Stain - Final Sputum Sputum Culture - Final Brisa albicans Assessment and Plan (1) Fever Current Visit: Yes Status: Acute Priority: High Code(s): R50.9 - FEVER, UNSPECIFIED SNOMED Code(s): 253788493 Plan: 1patient was in the hospital with a fever and did have an episode of vomiting patient was noted to be slightly tender in the left lower quadrant area concerning for possible intra-abdominal source possible diverticulitis as currently not behaving as pneumonia chest x-ray was negative urine is negative influenza RSV and COVID testing was negative 2-patient with elevated creatinine high risk of nephrotoxicity 3- CT of abdominal pelvis with oral contrast , did not show any acute process but rectal feceloma , pt did have multiple BM since CT 4-Patient did have worsening of his respiratory status requiring intubation sputum is currently growing Brisa which is likely colonizer , repeat sputums are currently pending the patient is mildly elevated 1.51 to continue with the zosyn, the patient mentation remains to be an issue ,LP could not be completed, patient did have a negative hsv serology that will make hsv encephalitis to be less likely Time with Patient: Less than 30
[2023-01-20] MEDS: ARTIFICIAL TEARS-HYPROMELLOSE DROPS 15 ML BTL BOTH EYES SCH ×3 (17:39→20:20)
[2023-01-20] MEDS: GABAPENTIN 300 MG CAP PO SCH (20:20)
[2023-01-20] MEDS: CALCIUM CARBONATE 500 MG CHEWABLE PO SCH (20:20)
--- NOTE | 2023-01-20 20:33 | EEG ---
ELECTROENCEPHALOGRAM REPORT ELECTROENCEPHALOGRAM (EEG) REPORT: TECHNIQUE: This is a report from a prolonged 2.5-hour video EEG performed using the 10/20 international electrode placement system. HISTORY: Fever, sepsis, encephalopathy. OTHER MEDICAL HISTORY: Includes hyperlipidemia, pulmonary embolus. CURRENT MEDICATIONS: 1. Acyclovir. 2. Vitamin D3. 3. Neurontin. 4. Keppra, and others. FINDINGS: Recording start time: 01/20/2023 at 07:23 a.m. Recording end time: 01/20/2023 at 09:55 a.m. EVENTS: During this 2.5-hour video EEG recording, no clinical or electrographic seizures were recorded. BACKGROUND: A sustained posterior dominant rhythm was not seen. Frequencies of the posterior quadrants consisted of poorly modulated 2-4 Hz waveforms. ACTIVATION: Hyperventilation: Not performed. Photic stimulation: No driving seen. Sleep: Drowsy. ABNORMALITIES: 1. The most prominent feature of this recording was frequent at times semi periodic to periodic 1 hertz moderate to high-voltage generalized triphasic waves. 2. The findings in #1 above were by diffuse synchronous and asynchronous theta delta range slowing with a frequency of 2-5 hertz, more frontally predominant. IMPRESSION: Abnormal 2.5-hour video EEG. No clinical or electrographic seizures were recorded. No epileptiform activity was present. The major finding of this EEG was frequent at times periodic and semi periodic triphasic waves. Triphasic waves in their own right are not epileptiform in nature, but can be seen in the setting of a metabolic or anoxic encephalopathy. The diffuse theta delta range slowing mentioned above is not epileptiform in nature. In combination, these findings indicate [id number] diffuse cerebral dysfunction as may be seen in a toxic-metabolic encephalopathy. These findings were called to the consulting neurologist at 5:36 p.m. on 01/20/2023. Please note that some frontally predominant delta range slowing was seen. This is not epileptiform in nature. MMODL / IJN: [id number] /
[2023-01-20 23:43] LABS: Glucose,Whole Blood 130 mg/dL (70-110)
[2023-01-21] MEDS: PIPERACILLIN-TAZOBACTAM 3.375 GM in SODIUM CHLORIDE 0.9% 100 ML IVPB SCH ×3 (00:30→16:12)
[2023-01-21 01:29] LABS: Glucose,Whole Blood 125 mg/dL (70-110)
[2023-01-21] MEDS: NOREPINEPHRINE 8 MG in SODIUM CHLORIDE 0.9% 250 ML IV SCH (02:26)
[2023-01-21 05:23] LABS: Glucose,Whole Blood 105 mg/dL (70-110)
[2023-01-21 05:54] LABS: Anisocytosis Slight; Basophils % (A) 0 %; Eosinophils # (A) 0.1 k/uL (0-0.7); Eosinophils % (A) 5 %; Lymphocytes # (A) 0.2 k/uL (1.0-4.8); Lymphocytes % (A) 14 %; MCH 30.5 pg (25.0-35.0); MCHC 34.5 g/dL (31.0-37.0); MCV 88.3 fL (80.0-100.0); Mean Platelet Volume 6.4; Monocytes # (A) 0.1 k/uL (0-1.0); Monocytes % (A) 5 %; Neutrophils % (A) 73 %; Poikilocytosis Slight; RBC 2.08 m/uL (4.30-5.90); RDW 18.8 % (11.5-15.5)
[2023-01-21 06:33] LABS: ABG Base Excess -3.9 mmol/L; ABG HCO3 21 mmol/L (21-25); ABG PCO2 35 mmHg (35-45); ABG PH 7.39 (7.35-7.45); ABG PO2 134 mmHg (83-108); ABG TCO2 22 mmol/L (19-24); Allen Test Performed? Yes
[2023-01-21 06:35] LABS: ABG Oxygen Saturation 99.6 % (94-97)
[2023-01-21] MEDS: ACYCLOVIR SODIUM 900 MG in SODIUM CHLORIDE 0.9% 250 ML IVPB SCH ×2 (06:45→17:23)
[2023-01-21 06:56] LABS: HCT 18.4 % (39.0-53.0); HGB 6.3 gm/dL (13.0-17.5); Platelet Count 12 k/uL (150-450); WBC 1.4 k/uL (3.8-10.6)
--- NOTE | 2023-01-21 08:18 | P.PN ---
Subjective Progress Note Date: 01/20/23 01/20/2023: Patient was seen for a follow-up. Patient is intubated, sedated with Precedex 2 mg per hour. Patient continues to be severely encephalopathic. No obvious facial twitching noted. The nurse has noted when patient was repositioned, he slightly opened his eyes but did not track or make any eye contact. As per nurse report, once when he was coughing while suctioning, patient had some decerebrate posturing. 01/19/2023: Patient initially seen by Dr. Harsha Kern. Please refer to his note for details. Patient is a 67-year-old male, who has history of multiple myeloma and has been admitted for confusional state. Patient's brain MRI was consistent with PRES. He had an EEG performed, which was negative for any epileptiform activity, but because of worsening confusion, patient had repeat EEG performed today. Lumbar puncture could not be performed because he has thrombocytopenia and fever only at presentation of unknown origin. Patient is on acyclovir, vancomycin. Per nursing report, patient has some movements in both lips. Patient's and patient's sons were present today. They mention that when he is moved for repositioning, he opens his eyes. No other seizure activity noticed. Some of the workup during this hospital visit consisted of: On initial presentation the patient had a fever of 102.1 max currently it's the resolved Hemoglobin was as low as a 6.2 and currently 3.4 His creatinine is 4.07 currently is 2.7 glucose had episodes as low as 65 currently 71. Then yesterday was low as 51. Ionized calcium is 6.0 He could've the head ordered by the primary team is reported as age-related atrophy and chronic small vessel ischemic change without acute intracranial process seen at this time. I personally reviewed the CT and I agree there is no acute subacute ischemia, there is no bleed. MR the brain is reported as symmetrical abnormal increased signal in the occipital lobe and posterior parietal lobe and the rodriguez and white matter. This is predominantly white matter abnormality and could relate to microvascular ischemia. I do not suspect demyelinating disease. I personally reviewed the MRI and the patient has hyperintensity on the flare over the occipital parietal but must drastically improved compared to 12/30/[address] of the head is reported as no acute hemorrhage, hydrocephalus or mass effect. CT cervical spine is reported as no acute fracture or subluxation. 5 mm sclerotic lesion left articular process of C4, nonspecific. Possibly a bone island. Objective - Vital Signs Vital signs: Vital Signs Temp 98.0 F 01/20/23 08:00 Pulse 93 01/20/23 12:00 Resp 19 01/20/23 12:00 BP 111/74 01/20/23 06:00 Pulse Ox 99 01/20/23 12:00 FiO2 35 01/20/23 12:00 Intake & Output 01/19/23 01/20/23 01/20/23 18:59 06:59 18:59 Intake Total 2428 1675.800 932.333 Output Total 1735 1543 1250 Balance 693 132.800 -317.667 Weight 96.3 kg 95.799 kg Intake: IV 816 156 233 0.9 Sodium Chloride 130 120 90 Acyclovir Sodium 900 mg 250 In Sodium Chloride 0.9% 250 ml @ 268 mls/hr IVPB Q12H [facility] Rx#:[id number] Lacosamide IV 50 mg In 100 50 Sodium Chloride 0.9% 50 ml @ 100 mls/hr IVPB BID [facility] Rx#:[id number] Piperacillin-Tazobactam 3 200 75 .375 gm In Sodium Chloride 0.9% 100 ml @ 25 mls/hr IVPB Q8H [facility] Rx#: [id number] Pressure Bag (0.9 Sodium 36 36 18 Chloride) levETIRAcetam IV 500 mg 100 In Sodium Chloride 0.9% 100 ml @ 400 mls/hr IVPB Q12HR [facility] Rx#:[id number] Intake, IV Titration 29.800 15.333 Amount Clevidipine Butyrate 25 29.800 15.333 mg In Empty Bag 1 bag @ 1 MG/HR 2 mls/hr IV .Q24H [facility] Rx#:[id number] Tube Feeding 672 590 354 Blood Product 310 Rc As-1 Unit 310 [id number] Other 630 900 330 Output: Urine 1735 1540 1250 Stool 3 Other: Voiding Method Indwelling Catheter Indwelling Catheter ABP, PAP, CO, CI - Last Documented Arterial Blood Pressure 165/85 - Exam Patient is intubated. His pupils are 4 mm, reacting to 3 mm briskly. Ocul ocephalics are absent. Tone is equal bilaterally. No obvious seizure-like activity noted. No facial twitching noted. Patient has moderate peripheral edema. He has possible cellulitis left lower pineda region. - Labs CBC & Chem 7: 01/21/23 05:20 01/20/23 05:40 Labs: Abnormal Lab Results - Last 24 Hours (Table) 01/19/23 01/19/23 01/20/23 Range/Units 06:59 17:53 05:40 WBC (3.8-10.6) k/uL RBC (4.30-5.90) m/uL Hgb (13.0-17.5) gm/dL Hct (39.0-53.0) % RDW (11.5-15.5) % Plt Count (150-450) k/uL Lymphocytes # (Manual) (1.0-4.8) k/uL Myelocytes # (Manual) (0) k/uL Nucleated RBCs (0-0) /100 WBC ABG pO2 (83-108) mmHg ABG O2 Saturation (94-97) % Sodium (137-145) mmol/L Chloride (98-107) mmol/L Carbon Dioxide (22-30) mmol/L Creatinine (0.66-1.25) mg/dL Glucose (74-99) mg/dL POC Glucose (mg/dL) 125 H (70-110) mg/dL Calcium (8.4-10.2) mg/dL AST (17-59) U/L Alkaline Phosphatase (38-126) U/L C-Reactive Protein (<1.0) mg/dL Albumin (3.5-5.0) g/dL Procalcitonin 1.51 H (0.02-0.09) ng/mL Crossmatch See Detail 01/20/23 01/20/23 01/20/23 Range/Units 05:40 05:40 06:09 WBC 2.4 L (3.8-10.6) k/uL RBC 2.51 L (4.30-5.90) m/uL Hgb 7.4 L (13.0-17.5) gm/dL Hct 22.1 L (39.0-53.0) % RDW 18.7 H (11.5-15.5) % Plt Count 26 L (150-450) k/uL Lymphocytes # (Manual) 0.14 L (1.0-4.8) k/uL Myelocytes # (Manual) 0.02 H (0) k/uL Nucleated RBCs 2 H (0-0) /100 WBC ABG pO2 121 H (83-108) mmHg ABG O2 Saturation 99.0 H (94-97) % Sodium 146 H (137-145) mmol/L Chloride 118 H (98-107) mmol/L Carbon Dioxide 21 L (22-30) mmol/L Creatinine 2.97 H (0.66-1.25) mg/dL Glucose 123 H (74-99) mg/dL POC Glucose (mg/dL) (70-110) mg/dL Calcium 7.6 L (8.4-10.2) mg/dL AST 177 H (17-59) U/L Alkaline Phosphatase 261 H (38-126) U/L C-Reactive Protein 6.7 H (<1.0) mg/dL Albumin 1.8 L (3.5-5.0) g/dL Procalcitonin (0.02-0.09) ng/mL Crossmatch 01/20/23 01/20/23 Range/Units 06:35 11:45 WBC (3.8-10.6) k/uL RBC (4.30-5.90) m/uL Hgb (13.0-17.5) gm/dL Hct (39.0-53.0) % RDW (11.5-15.5) % Plt Count (150-450) k/uL Lymphocytes # (Manual) (1.0-4.8) k/uL Myelocytes # (Manual) (0) k/uL Nucleated RBCs (0-0) /100 WBC ABG pO2 (83-108) mmHg ABG O2 Saturation (94-97) % Sodium (137-145) mmol/L Chloride (98-107) mmol/L Carbon Dioxide (22-30) mmol/L Creatinine (0.66-1.25) mg/dL Glucose (74-99) mg/dL POC Glucose (mg/dL) 132 H 132 H (70-110) mg/dL Calcium (8.4-10.2) mg/dL AST (17-59) U/L Alkaline Phosphatase (38-126) U/L C-Reactive Protein (<1.0) mg/dL Albumin (3.5-5.0) g/dL Procalcitonin (0.02-0.09) ng/mL Crossmatch Microbiology - Last 24 Hours (Table) 01/19/23 16:19 Gram Stain - Preliminary Sputum Sputum Culture - Preliminary 01/19/23 14:39 Urine Culture - Preliminary Urine,Catheterized 01/16/23 15:23 Gram Stain - Final Sputum Sputum Culture - Final Brisa albicans Assessment and Plan Assessment: Also mental status seems due to metabolic encephalopathy. Has fever of unknown origin (fever was only at presentation and that resolved). Rule out ?encephalitis. Also has transient hypogylecmia (as low as 50's), elevated ionized calcium--glucose improved. History of seizures according to the he has subtle jerking of upper extremities (in past had left facial twitching and myoclonic jerks) History of Posterior reversible encephalopathy syndrome on MRI of the brain of 12/29/2022 admission and improving on this current MRI. Acute on chronic kidney insufficiency History of multiple myeloma and had chemotherapy Pancytopenia History of pulmonary embolism on Eliquis History of a T12 fracture with multiple vertebral fracture due to multiple myeloma History of coronary artery disease Dyslipidemia Plan: Patient is on Keppra Keppra to 500mg bid and Dr. Kern has also added Vimpat 50 mg one tablet twice a day (started on 01/12/23) especially since according to the he has subtle jerks of the upper extremity. Prolonged, 2.5 hour EEG today. It is an abnormal 2.5 hour video EEG. No clinical or electrographic seizures were recorded. No epileptiform activity was present. The major finding of this EEG was frequent at times periodic and semi- periodic triphasic waves. Triphasic waves are not epileptiform in nature, but can be seen in setting of metabolic or anoxic encephalopathy. The diffuse theta delta a brain slowing mentioned above is not epileptiform in nature. In combination, these findings indicate moderate to severe diffuse cerebral dysfunction as may be seen in toxic metabolic encephalopathy. Repeat EEG performed 01/19/2023 was also abnormal, with background slowing of moderate to severe degree. Also presence of frontally predominant high ampl itude waves, which appears triphasic. Does not appear clearly epileptiform. Continue same dose of seizure medications. ID team is on board for the fever. Lumbar puncture is unsuccessful. Pain spec ialist will not perform Lumbar Puncture because of thrombocytopenia. Is on Acylovir, Acylovir and Zosyn. I.D. is on board. We'll defer the rest of the medical measure the primary team ICU staff recommend patient to be transferred to higher level of care. Condition is very guarded. Patient is critically sick.
--- NOTE | 2023-01-21 08:21 | XR ---
EXAMINATION TYPE: XR chest 1V portable DATE OF EXAM: 01/21/2023 COMPARISON: 01/20/2023 HISTORY: Tube placement TECHNIQUE: Single frontal view of the chest is obtained. FINDINGS: ET and NG tube stable. Heart size unchanged. Hypertrophic degenerative change of the spine . There is bilateral infiltrate and pleural effusion. No sizable pneumothorax. Rib deformity on the r ight suspected. There is stable. IMPRESSION: Bilateral consolidation and pleural effusion stable. Borderline CHF versus pneumonia.
[2023-01-21] MEDS: PANTOPRAZOLE 40 MG/10 ML VIAL IVP SCH (08:57)
[2023-01-21] MEDS: SODIUM BICARBONATE TAB 650 MG TAB PO SCH ×3 (08:57→20:11)
[2023-01-21] MEDS: CHLORHEXIDINE GLUCONATE 15 ML CUP MUCOUS MEM SCH ×2 (08:57→20:11)
[2023-01-21] MEDS: CHOLECALCIFEROL 25 MCG (1000 IU) TABLET PO SCH (08:58)
[2023-01-21] MEDS: levETIRAcetam IV 500 MG in SODIUM CHLORIDE 0.9% 100 ML IVPB SCH ×2 (09:07→20:11)
[2023-01-21] MEDS: ARTIFICIAL TEARS-HYPROMELLOSE DROPS 15 ML BTL BOTH EYES SCH ×4 (09:26→22:00)
[2023-01-21 09:32] LABS: Calcium 7.3 mg/dL (8.4-10.2); Potassium 3.9 mmol/L (3.5-5.1)
[2023-01-21] MEDS: LACOSAMIDE IV 50 MG in SODIUM CHLORIDE 0.9% 50 ML IVPB SCH ×2 (10:11→21:05)
--- NOTE | 2023-01-21 10:15 | P.PN ---
Subjective Patient is seen in follow-up for acute kidney injury on chronic kidney disease. Renal function stable. Receiving tube feeds. Scheduled to receive blood and platelets today. Off IV fluids. Intubated. Off sedation but still not arousable. Receiving tube feeds. Vital signs are stable. HEENT: Intubated. LUNGS: No audible rhonchi or wheezes. HEART: Regular rate and rhythm. ABDOMEN: No distention. EXTREMITITES: No edema. Objective - Vital Signs Vital signs: Vital Signs Temp 98.2 F 01/21/23 10:07 Pulse 93 01/21/23 10:07 Resp 18 01/21/23 10:07 BP 153/61 01/21/23 10:07 Pulse Ox 100 01/21/23 10:07 FiO2 35 01/21/23 10:00 Intake & Output 01/20/23 01/21/23 01/21/23 18:59 06:59 18:59 Intake Total 1939.454 7275.667 428 Output Total 2395 1952 500 Balance -570.667 266.667 -72 Weight 95.4 kg Intake: IV 371 276 192 0.9 Sodium Chloride 210 240 80 Lacosamide IV 50 mg In 50 Sodium Chloride 0.9% 50 ml @ 100 mls/hr IVPB BID NNAMDI Rx#:[id number] Piperacillin-Tazobactam 3 75 100 .375 gm In Sodium Chloride 0.9% 100 ml @ 25 mls/hr IVPB Q8H NNAMDI Rx#: [id number] Pressure Bag (0.9 Sodium 36 36 12 Chloride) Intake, IV Titration 15.333 34.667 Amount Clevidipine Butyrate 25 15.333 34.667 mg In Empty Bag 1 bag @ 1 MG/HR 2 mls/hr IV .Q24H NNAMDI Rx#:[id number] Tube Feeding 708 708 236 Blood Product 0 Rc As-1 Unit 0 [id number] Other 730 1200 Output: Urine 2395 1950 500 Stool 2 Other: Voiding Method Indwelling Catheter Indwelling Catheter Indwelling Catheter # Bowel Movements 1 ABP, PAP, CO, CI - Last Documented Arterial Blood Pressure 151/61 - Labs CBC & Chem 7: 01/21/23 05:20 01/21/23 05:20 Labs: Abnormal Lab Results - Last 24 Hours (Table) 01/19/23 01/20/23 01/20/23 Range/Units 06:59 05:40 05:40 WBC (3.8-10.6) k/uL RBC (4.30-5.90) m/uL Hgb (13.0-17.5) gm/dL Hct (39.0-53.0) % RDW (11.5-15.5) % Plt Count (150-450) k/uL Lymphocytes # (Manual) 0.14 L (1.0-4.8) k/uL Myelocytes # (Manual) 0.02 H (0) k/uL Nucleated RBCs 2 H (0-0) /100 WBC ABG pO2 (83-108) mmHg ABG O2 Saturation (94-97) % Chloride (98-107) mmol/L Carbon Dioxide (22-30) mmol/L Creatinine (0.66-1.25) mg/dL Glucose (74-99) mg/dL POC Glucose (mg/dL) (70-110) mg/dL Calcium (8.4-10.2) mg/dL Ammonia (<30) umol/L Procalcitonin 1.51 H (0.02-0.09) ng/mL Crossmatch See Detail 01/20/23 01/20/23 01/20/23 Range/Units 10:45 11:45 23:42 WBC (3.8-10.6) k/uL RBC (4.30-5.90) m/uL Hgb (13.0-17.5) gm/dL Hct (39.0-53.0) % RDW (11.5-15.5) % Plt Count (150-450) k/uL Lymphocytes # (Manual) (1.0-4.8) k/uL Myelocytes # (Manual) (0) k/uL Nucleated RBCs (0-0) /100 WBC ABG pO2 (83-108) mmHg ABG O2 Saturation (94-97) % Chloride (98-107) mmol/L Carbon Dioxide (22-30) mmol/L Creatinine (0.66-1.25) mg/dL Glucose (74-99) mg/dL POC Glucose (mg/dL) 132 H 130 H (70-110) mg/dL Calcium (8.4-10.2) mg/dL Ammonia 34 H (<30) umol/L Procalcitonin (0.02-0.09) ng/mL Crossmatch 01/21/23 01/21/23 01/21/23 Range/Units 01:27 05:20 05:20 WBC 1.4 L* (3.8-10.6) k/uL RBC 2.08 L (4.30-5.90) m/uL Hgb 6.3 L* (13.0-17.5) gm/dL Hct 18.4 L* (39.0-53.0) % RDW 18.8 H (11.5-15.5) % Plt Count 12 L* D (150-450) k/uL Lymphocytes # (Manual) (1.0-4.8) k/uL Myelocytes # (Manual) (0) k/uL Nucleated RBCs (0-0) /100 WBC ABG pO2 (83-108) mmHg ABG O2 Saturation (94-97) % Chloride 116 H (98-107) mmol/L Carbon Dioxide 21 L (22-30) mmol/L Creatinine 2.68 H (0.66-1.25) mg/dL Glucose 103 H (74-99) mg/dL POC Glucose (mg/dL) 125 H (70-110) mg/dL Calcium 7.3 L (8.4-10.2) mg/dL Ammonia (<30) umol/L Procalcitonin (0.02-0.09) ng/mL Crossmatch 01/21/23 Range/Units 06:29 WBC (3.8-10.6) k/uL RBC (4.30-5.90) m/uL Hgb (13.0-17.5) gm/dL Hct (39.0-53.0) % RDW (11.5-15.5) % Plt Count (150-450) k/uL Lymphocytes # (Manual) (1.0-4.8) k/uL Myelocytes # (Manual) (0) k/uL Nucleated RBCs (0-0) /100 WBC ABG pO2 134 H (83-108) mmHg ABG O2 Saturation 99.6 H (94-97) % Chloride (98-107) mmol/L Carbon Dioxide (22-30) mmol/L Creatinine (0.66-1.25) mg/dL Glucose (74-99) mg/dL POC Glucose (mg/dL) (70-110) mg/dL Calcium (8.4-10.2) mg/dL Ammonia (<30) umol/L Procalcitonin (0.02-0.09) ng/mL Crossmatch Microbiology - Last 24 Hours (Table) 01/19/23 16:19 Gram Stain - Final Sputum Sputum Culture - Final Brisa albicans 01/19/23 14:39 Urine Culture - Final Urine,Catheterized 01/19/23 15:05 Blood Culture - Preliminary Blood No Growth after 24 hours Assessment and Plan Plan: Assessment: 1. Acute kidney injury mostly prerenal improved with IV hydration. Creatinine stable at 2.68 today. Nonoliguric. 2. 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 3. Multiple myeloma with bony metastasis. Heme/onc following. 4. Hypernatremia from lack of oral water intake. Improving with water flushes. 5. Anemia. Multifactorial. Component of myeloma and chronic kidney disease. 6. Metabolic encephalopathy. Concern for encephalitis. ID and neurology following. Plan: Maintain water flushes at 400 mL every 6 hours with tube feeds. Avoid nephrotoxins. Continue to monitor renal function and urine output. Awaits transfer to another facility to get lumbar puncture done.
--- NOTE | 2023-01-21 12:49 | P.PN ---
Subjective Progress Note Date: 01/21/23 Principal diagnosis: Altered mental status The patient is 67-year-old white male, well known to our service. He follows with Dr. Browning in the outpatient setting. The patient has a known diagnosis of multiple myeloma. He has been off myeloma specific treatment since early 12/11, due to progression, as well as multiple admissions for fever of unknown origin. He was most recently admitted to the hospital on 12/29/22 with new-onset seizures. He was found to have acute on chronic renal failure. He improved with anorexia medication, as well as hydration. It was felt that the seizures were possibly due to uremia. He was then discharged to [facility] Most of the history for this admission was obtained by the patient's was at the bedside. The patient was sleepy and somewhat difficult to arouse. She stated that after lunch yesterday the patient developed nausea and vomiting. After that he was lethargic and had some intermittent tremors. She states that the tremors were not like seizures but more like chills with fever. He remained lethargic and drowsy and did not eat as dinner. Physician was therefore contacted and the patient was asked to come to the ER. In the ER he was found to have a temperature of 102.1 though he was afebrile initially. Chest x-ray showed chronic changes. CT of the abdomen and pelvis did not show any obvious source of infection. His CBC revealed a hemoglobin of 7.1, platelets 68 and WBC of 4. The patient was therefore admitted for further management. The patient himself denies any localizing signs of infection. The patient was initially febrile at time of admission. Since then, the patient has not spiked any temperature. The patient was seen by various consultants including hematology oncology, nephrology, and neurology. His neurologic functions have been essentially progressing and progressively declining. CAT scan of the brain that was was done on 01/12/2023 showed age-related atrophy with chronic small vessel ischemic changes. MRI of the brain showed symmetrical abnormal increased signal in the occipital lobes and posterior parietal lobes in the rodriguez and white matter. Lumbar puncture was attempted today and was not successful. EEG was done on 01/13/2023 showed abnormal diffuse slowing with moderate to severe encephalopathy. No seizures were noted. The patient subsequently became more unresponsive and this afternoon, the patient was in agonal breathing. The patient got transferred to the intensive care unit. The patient was intubated for airway protection. There was some respiratory secretions and the decubitus were suctioned out. Post intubation chest x-ray showed no significant abn ormalities. No airspace disease. No pleural effusions. The patient had some abnormal ST the right midlung that was unchanged and this was an expansile right rib lesion. The patient was already receiving Zosyn. I added vancomycin. The patient is already on IV acyclovir. Post intubation, he was placed on propofol at 35 mcg/kg/m. He did develop some hypotension is currently receiving a bolus of normal saline. Blood gases post intubation showed a pH of 7.3 with a pCO2 of 30 and pO2 more than 400. Patient is currently on assist control mode at the rate of 24, tidal volume of 450, FiO2 of 100% and a PEEP of 5. The patient is also in acute kidney injury on top of chronic renal failure. His admission creatinine was at 4.07 and dropped down to 2.9. The patient is pancytopenic due to his myeloma with a white second of 2.1, hemoglobin of 7.9 and platelet count of 27. This is a unit of platelets today On 01/17/2023, the patient remains intubated on a mechanical ventilator. Today he is on propofol running at 30 mcg/kg/m. He only grimaces to deep painful stimulation. He does not follow any commands. Sedation was started to maintain synchrony with a mechanical ventilator. Noted the patient was quite unresponsive yesterday prior to his intubation. Subsequently, CAT scan of the brain was done that showed no acute abnormalities. The patient remains intubated on a mechanical ventilator. Today, he is on assist-control mode at the rate of 14, tidal volume of 450, FiO2 of 40% and a PEEP of 5. Chest x-ray shows ET tube being in a good location. There is lower lobe pulmonary infiltrates bilaterally. Suspect an underlying aspiration pneumonia. Antibiotic coverage is modified the patient is currently on a combination of Zosyn, vancomycin. He is also 96 acyclovir suspecting an underlying encephalitis. Exact cause for this patient is an underlying deterioration has n ot been adequately established. EEG has shown diffuse slowing and moderate to severe encephalopathy. Unable to do a lumbar puncture. MRI of the brain was nonrevealing. CAT scan of the brain showed negative abnormalities. He has progressive multiple myeloma. There is obvious hematologic abnormalities with pancytopenia. The white cell count is down to 1.4 and there is a further drop in hemoglobin down to 6.8 and his platelet count is at 55. Encountered some limited bleeding from his puncture sites in his troponin lumen catheter and arterial line site. The patient was given platelets yesterday and the bleeding was controlled. He may benefit from a unit of packed RBC in addition. His blood gases from today shows a pH of 7.51 with a pCO2 of 37 and pO2 of 160. BUN is at 9 with a creatinine of 2.7 and a sodium level is at 143. Hemodynamically, the patient is on no pressors. IV fluids are in the form of bicarb infusion at the rate of 80 mL an hour. Nephrology is on the case. 2022, the patient remains unresponsive. We gave him a sedation holiday for a prolonged period of time yesterday and unfortunately, there was no neurologic response. There was only grimaces to deep painful stimulation. Otherwise, he does not open up his eyes, does not follow any commands, motor and sensory functions cannot be assessed, no seizure activity has been noted an EEG was done that showed moderate to severe encephalopathy without any epileptic foci. The patient is afebrile. No neck stiffness. Unable to do a lumbar puncture. I discussed the case was anesthesia and there were not willing to do his lumbar puncture specially with his underlying thrombocytopenia. Note that intervent ional radiology try to obtain a lumbar puncture under fluoroscopy earlier and this was not successful. He remains on IV acyclovir. He remains on broad- spectrum antibiotics with a combination of Zosyn and vancomycin. While on a mechanical ventilator, his condition remained stable. Is on assist-control at the rate of 14, tidal volume of 450, FiO2 40% and a PEEP of 5. His chest x-ray remains unchanged. Hemodynamically, he did drop his pressure yesterday and he was started on a low-dose of norepinephrine which is currently running at 0.02 mcg/kg/m. Cardiac rhythm is sinus. He is producing adequate amount of urine output. His hematologic profile from today shows a WBC count of 2, hemoglobin of 7.8, platelet count was 50 from yesterday pending from today. Blood gas shows a pH of 7.45 with a pCO2 of 38 and pO2 of 134. The BUN is at 9 with a creatinine of 2.7 as the patient's chronic kidney disease secondary to multiple myeloma. Sodium is 144 with a potassium level of 4.3. Vancomycin trough was 33. Sputum culture was negative. Blood cultures were negative. Various consultants involved including hematology regarding his progressive myeloma. He is also under the care of neurology to start the patient on Keppra. Is also on Vimpat. Nephrology is also on the case. No major change in his condition at this point in time. Reevaluated today on 01/19/2023, patient remains in the ICU, intubated and mechanically ventilated. Patient is on assist control rate of 14 tidal volume 450 FiO2 35% and PEEP of 5 ABG showed a pO2 of 138 pCO2 36 pH of 7.45. Patient remains empirically on acyclovir, is also on Zosyn, patient is receiving Keppra and Vimpat for possible seizures. Based on EEG. Patient basically required lumbar puncture, but that could not be done mostly because his low platelets, and we will recommend platelet transfusion just before lumbar puncture to be performed by anesthesia. His labs today are quite abnormal including a WBC count of 2.3 hemoglobin 6.8 platelets are 35,000, this is consistent with a picture of pancytopenia. Basic metabolic profile is normal however his BUN is 12 creatinine 2.96. Since admission the patient received 4 units of packed RBCs, 1 unit of fresh frozen plasma and 2 units of platelets. Patient remains unresponsive to any stimuli. And he is being followed closely by multiple consultants including neurology. Chest x-ray today is consistent with bilateral pneumonia right more so than left, although the possibility of underlying pulmonary edema is not entirely ruled out but felt to be less likely. HSV serology is nondiagnostic and basically negative. Reevaluated today on 01/20/2023, patient remains in the ICU intubated mechanically ventilated, unresponsive to any stimuli, remains on assist control rate of 14 tidal volume 450 FiO2 35% and PEEP of 5 ABG showed a pO2 of 121 pCO2 36 pH of 7.41. Anesthesia declined lumbar puncture mostly because it could not be done by interventional radiology and they felt that they would not be able to do it. Patient remains on acyclovir and vancomycin, hardly any change in the last 24 hours in his neurological status. Patient is not requiring any sedation. He is mostly on seizure medications including Keppra and Vimpat. Remains pancytopenic with low WBC count of 2.4, low hemoglobin of 7.4, and low platelets of 26,000. Electrolytes are normal except for slightly elevated sodium of 146. His BUN is 16 creatinine 2.97. Liver enzymes are a bit elevated, ammonia level is pending. Pro-calcitonin level is 1.51. Since admission the patient received a total of 4 units of packed RBCs, and 2 units of platelets he received 1 unit of fresh frozen plasma. reevaluated today on 01/21/2023, patient remains in the ICU, intubated and mechanically ventilated, supposedly the patient was accepted as [facility] for transfer, waiting for bed availability. He is on assist control rate of 14 to volume 450 FiO2 35% and PEEP of 5 ABG showed a pO2 of 134 pCO2 of 35 pH of 7.39. Patient remains basically unresponsive to any stimuli, but according to the nurse taking care of the patient he opened his eyes at times on his own but does not seem to comprehend what's going on. Patient has been off sedation since, he is not requiring any pressors, he is on vital AF at 59 mL per hour. Hemoglobin today is 6.3 platelets are 12, and the patient is to receive a unit of packed RBCs and couple units of platelets as ordered by oncology on the case. Again the patient could be transferred sometime later today hopefully to [facility] for his neurological status, and apparently patient will likely have a lumbar puncture done at [facility], chest x-ray showed bilateral consolidations or pleural effusions patient has been receiving Lasix intermittently Objective - Vital Signs Vital signs: Vital Signs Temp 98.5 F 01/21/23 12:11 Pulse 89 01/21/23 12:11 Resp 20 01/21/23 12:11 BP 159/65 01/21/23 12:11 Pulse Ox 99 01/21/23 12:00 FiO2 35 01/21/23 12:00 Intake & Output 01/20/23 01/21/23 01/21/23 18:59 06:59 18:59 Intake Total 2098.838 5271.667 1302 Output Total 2395 1952 740 Balance -570.667 266.667 562 Weight 95.4 kg Intake: IV 371 276 238 0.9 Sodium Chloride 210 240 120 Lacosamide IV 50 mg In 50 Sodium Chloride 0.9% 50 ml @ 100 mls/hr IVPB BID NNAMDI Rx#:[id number] Piperacillin-Tazobactam 3 75 100 .375 gm In Sodium Chloride 0.9% 100 ml @ 25 mls/hr IVPB Q8H NNAMDI Rx#: [id number] Pressure Bag (0.9 Sodium 36 36 18 Chloride) Intake, IV Titration 15.333 34.667 Amount Clevidipine Butyrate 25 15.333 34.667 mg In Empty Bag 1 bag @ 1 MG/HR 2 mls/hr IV .Q24H NNAMDI Rx#:[id number] Tube Feeding 708 708 354 Blood Product 310 Platelet Pheresis Pas 0 Psoralen Unit [id number] Rc As-1 Unit 310 [id number] Other 730 1200 400 Output: Urine 2395 1950 740 Stool 2 Other: Voiding Method Indwelling Catheter Indwelling Catheter Indwelling Catheter # Bowel Movements 1 ABP, PAP, CO, CI - Last Documented Arterial Blood Pressure 160/66 - Exam Physical Exam: Revealed 67-year-old white male unresponsive to any stimuli. Head: Atraumatic, normocephalic. Endotracheal tube and orogastric tube are intact. HEENT:[Neck is supple.] [No neck masses.] [No thyromegaly.] [No JVD.] Chest: [Symmetrical chest expansion, crackles at the bases. No rhonchi and no wheezes. Cardiac Exam: [Normal S1 and S2, no S3 gallop, no murmur.] Abdomen: [Soft, nontender, no megaly, no rebound, no guarding, normal bowel sounds.] Extremities: [No clubbing, 1+ bipedal edema, no cyanosis.] Neurological Exam: Pupils are 3 mm and sluggishly reactive to light, patient does have a gag reflex, not responsive to any verbal or painful stimuli, no clonus, no Babinski, absent reflexes Skin: Multiple areas of ecchymosis is noted. And areas of purpura. - Labs CBC & Chem 7: 01/21/23 05:20 01/21/23 05:20 Labs: Abnormal Lab Results - Last 24 Hours (Table) 01/19/23 01/20/23 01/20/23 Range/Units 06:59 10:45 23:42 WBC (3.8-10.6) k/uL RBC (4.30-5.90) m/uL Hgb (13.0-17.5) gm/dL Hct (39.0-53.0) % RDW (11.5-15.5) % Plt Count (150-450) k/uL ABG pO2 (83-108) mmHg ABG O2 Saturation (94-97) % Chloride (98-107) mmol/L Carbon Dioxide (22-30) mmol/L Creatinine (0.66-1.25) mg/dL Glucose (74-99) mg/dL POC Glucose (mg/dL) 130 H (70-110) mg/dL Calcium (8.4-10.2) mg/dL Ammonia 34 H (<30) umol/L Crossmatch See Detail 01/21/23 01/21/23 01/21/23 Range/Units 01:27 05:20 05:20 WBC 1.4 L* (3.8-10.6) k/uL RBC 2.08 L (4.30-5.90) m/uL Hgb 6.3 L* (13.0-17.5) gm/dL Hct 18.4 L* (39.0-53.0) % RDW 18.8 H (11.5-15.5) % Plt Count 12 L* D (150-450) k/uL ABG pO2 (83-108) mmHg ABG O2 Saturation (94-97) % Chloride 116 H (98-107) mmol/L Carbon Dioxide 21 L (22-30) mmol/L Creatinine 2.68 H (0.66-1.25) mg/dL Glucose 103 H (74-99) mg/dL POC Glucose (mg/dL) 125 H (70-110) mg/dL Calcium 7.3 L (8.4-10.2) mg/dL Ammonia (<30) umol/L Crossmatch 01/21/23 Range/Units 06:29 WBC (3.8-10.6) k/uL RBC (4.30-5.90) m/uL Hgb (13.0-17.5) gm/dL Hct (39.0-53.0) % RDW (11.5-15.5) % Plt Count (150-450) k/uL ABG pO2 134 H (83-108) mmHg ABG O2 Saturation 99.6 H (94-97) % Chloride (98-107) mmol/L Carbon Dioxide (22-30) mmol/L Creatinine (0.66-1.25) mg/dL Glucose (74-99) mg/dL POC Glucose (mg/dL) (70-110) mg/dL Calcium (8.4-10.2) mg/dL Ammonia (<30) umol/L Crossmatch Microbiology - Last 24 Hours (Table) 01/19/23 16:19 Gram Stain - Final Sputum Sputum Culture - Final Brisa albicans 01/19/23 14:39 Urine Culture - Final Urine,Catheterized 01/19/23 15:05 Blood Culture - Preliminary Blood No Growth after 24 hours Assessment and Plan Assessment: Impression: Acute hypoxic respiratory failure secondary to altered mental status and acute bilateral pneumonia, possibly aspiration pneumonia. Patient has been on vancomycin and Zosyn. Altered mental status, possible seizures, acute toxic metabolic encephalopathy. History of seizures History of posterior reversible encephalopathy syndrome based on MRI from 12/29/2022, however subsequently the patient had full recovery. Multiple myeloma with progression, possible [employer] involvement with multiple myeloma strongly recommend lumbar puncture. If lumbar puncture could not be performed, I was definitely urge the admitting physician and the different consultants on the case to seriously consider transferring the patient to a tertiary care center. Pancytopenia secondary to above. Chronic kidney disease secondary to multiple myeloma chronic stage IIIB kidney disease. Acute on chronic kidney injury. History of pulmonary embolism Coronary arteriosclerosis History of T12 fracture and multiple vertebral fractures due to multiple myeloma Dyslipidemia Possible sepsis from pneumonia at one point required briefly norepinephrine and fluids. This was addressed by Dr. Alvarez prior to my evaluation Recommendation: Continue ventilatory support Continue Zosyn, acyclovir, and vancomycin Continue seizure medications including Keppra and Vimpat Continue to monitor daily labs including daily CBC and daily metabolic profile Nutritional support to continue with enteral feeding. GI and DVT prophylaxis. Patient is being followed by multiple services including nephrology, oncology, neurology, and infectious disease. Condition remains critical Critical care time is over 30 minutes Time with Patient: Greater than 30
[2023-01-21 13:12] LABS: Glucose,Whole Blood 115 mg/dL (70-110)
[2023-01-21 14:09] LABS: Rouleaux Present
--- NOTE | 2023-01-21 15:20 | P.PN ---
Subjective Progress Note Date: 01/21/23 Principal diagnosis: Fever Patient is a 67-year-old male with a past medical history significant for multiple myeloma on chemotherapy patient also history of hyperlipidemia coronary disease PE and halfway resident patient was brought into the ER for evaluation of fever , Patient also have an episode of vomiting and persistent in the left lower quadrant.Patient did have worsening of his respiratory status ended up getting intubated and the patient was transferred to the ICU 01/16/2023. On today's evaluation that is 01/21/2023 the patient continues to be afebrile, the patient is hemodynamically stable not requiring any pressor support , no significant purulent secretion through the ET has been reported by the nursing staff, patient FiO2 is stable at 35%, patient has been tolerating his tube feeds and has developed diarrhea requiring fecal management system placement Objective - Vital Signs Vital signs: Vital Signs Temp 98.5 F 01/21/23 12:11 Pulse 91 01/21/23 13:00 Resp 21 01/21/23 13:00 BP 148/85 01/21/23 13:00 Pulse Ox 99 01/21/23 13:00 FiO2 35 01/21/23 13:00 Intake & Output 01/20/23 01/21/23 01/21/23 18:59 06:59 18:59 Intake Total 8945.279 2445.667 1384 Output Total 2395 1952 865 Balance -570.667 266.667 519 Weight 95.4 kg Intake: IV 371 276 261 0.9 Sodium Chloride 210 240 140 Lacosamide IV 50 mg In 50 Sodium Chloride 0.9% 50 ml @ 100 mls/hr IVPB BID [facility] Rx#:[id number] Piperacillin-Tazobactam 3 75 100 .375 gm In Sodium Chloride 0.9% 100 ml @ 25 mls/hr IVPB Q8H [facility] Rx#: [id number] Pressure Bag (0.9 Sodium 36 36 21 Chloride) Intake, IV Titration 15.333 34.667 Amount Clevidipine Butyrate 25 15.333 34.667 mg In Empty Bag 1 bag @ 1 MG/HR 2 mls/hr IV .Q24H [facility] Rx#:[id number] Tube Feeding 708 429 413 Blood Product 310 Platelet Pheresis Pas 0 Psoralen Unit [id number] Rc As-1 Unit 310 [id number] Other 730 1200 400 Output: Urine 2395 1950 865 Stool 2 Other: Voiding Method Indwelling Catheter Indwelling Catheter Indwelling Catheter # Bowel Movements 1 ABP, PAP, CO, CI - Last Documented Arterial Blood Pressure 168/69 - Exam GENERAL DESCRIPTION: Elderly male intubated on the vent RESPIRATORY SYSTEM: Unlabored breathing , decreased breath sounds at bases HEART: S1 S2 regular rate and rhythm ABDOMEN: Soft , no tenderness EXTREMITIES: No edema feet - Labs CBC & Chem 7: 01/21/23 05:20 01/21/23 05:20 Labs: Abnormal Lab Results - Last 24 Hours (Table) 01/19/23 01/20/23 01/20/23 Range/Units 06:59 10:45 23:42 WBC (3.8-10.6) k/uL RBC (4.30-5.90) m/uL Hgb (13.0-17.5) gm/dL Hct (39.0-53.0) % RDW (11.5-15.5) % Plt Count (150-450) k/uL ABG pO2 (83-108) mmHg ABG O2 Saturation (94-97) % Chloride (98-107) mmol/L Carbon Dioxide (22-30) mmol/L Creatinine (0.66-1.25) mg/dL Glucose (74-99) mg/dL POC Glucose (mg/dL) 130 H (70-110) mg/dL Calcium (8.4-10.2) mg/dL Ammonia 34 H (<30) umol/L Crossmatch See Detail 01/21/23 01/21/23 01/21/23 Range/Units 01:27 05:20 05:20 WBC 1.4 L* (3.8-10.6) k/uL RBC 2.08 L (4.30-5.90) m/uL Hgb 6.3 L* (13.0-17.5) gm/dL Hct 18.4 L* (39.0-53.0) % RDW 18.8 H (11.5-15.5) % Plt Count 12 L* D (150-450) k/uL ABG pO2 (83-108) mmHg ABG O2 Saturation (94-97) % Chloride 116 H (98-107) mmol/L Carbon Dioxide 21 L (22-30) mmol/L Creatinine 2.68 H (0.66-1.25) mg/dL Glucose 103 H (74-99) mg/dL POC Glucose (mg/dL) 125 H (70-110) mg/dL Calcium 7.3 L (8.4-10.2) mg/dL Ammonia (<30) umol/L Crossmatch 01/21/23 01/21/23 Range/Units 06:29 13:09 WBC (3.8-10.6) k/uL RBC (4.30-5.90) m/uL Hgb (13.0-17.5) gm/dL Hct (39.0-53.0) % RDW (11.5-15.5) % Plt Count (150-450) k/uL ABG pO2 134 H (83-108) mmHg ABG O2 Saturation 99.6 H (94-97) % Chloride (98-107) mmol/L Carbon Dioxide (22-30) mmol/L Creatinine (0.66-1.25) mg/dL Glucose (74-99) mg/dL POC Glucose (mg/dL) 115 H (70-110) mg/dL Calcium (8.4-10.2) mg/dL Ammonia (<30) umol/L Crossmatch Microbiology - Last 24 Hours (Table) 01/19/23 16:19 Gram Stain - Final Sputum Sputum Culture - Final Brisa albicans 01/19/23 14:39 Urine Culture - Final Urine,Catheterized 01/19/23 15:05 Blood Culture - Preliminary Blood No Growth after 24 hours Assessment and Plan (1) Fever Current Visit: Yes Status: Acute Priority: High Code(s): R50.9 - FEVER, UNSPECIFIED SNOMED Code(s): 788626936 Plan: 1patient was in the hospital with a fever and did have an episode of vomiting patient was noted to be slightly tender in the left lower quadrant area concerning for possible intra-abdominal source possible diverticulitis as currently not behaving as pneumonia chest x-ray was negative urine is negative influenza RSV and COVID testing was negative 2-patient with elevated creatinine high risk of nephrotoxicity 3- CT of abdominal pelvis with oral contrast , did not show any acute process but rectal feceloma , pt did have multiple BM since CT 4-Patient did have worsening of his respiratory status requiring intubation sputum is currently growing Brisa which is likely colonizer , repeat sputums are currently pending the patient is mildly elevated 1.51 to continue with the zosyn, 5- patient has developed diarrhea we will check a stool for C. diff and treat if positive, awaiting transfer to [facility] for his mentation Time with Patient: Less than 30
--- NOTE | 2023-01-21 16:40 | P.PN ---
Subjective Progress Note Date: 01/21/23 This is a 67-year-old male who was recently admitted with possible sepsis also concerned with PRES on the MRI with multiple medical consultations following and patient remains in the ICU being closely monitored on mechanical ventilation. FiO2 is 35% with a PEEP of 5 and also is maintained off of sedation. Patient with multiple attempts at lumbar puncture an unsuccessful with consultations recommending transfer to tertiary treatment center. Patient has been accepted at [facility] by Dr. Gipson as well as Dr. Jluis Lemus of the ICU and currently awaiting a bed assignment. Patient is maintained on antibiotics and cultures thus far have been negative. Review of systems: Constitutional: No reports of fatigue, fever, or chills Cardiovascular: No reports of chest pain or palpitations Respiratory: No reports of shortness of breath or cough GI: reports of nausea, no reports of of vomiting, : No reports of dysuria or retention Neurovascular: reports of generalized weakness, All medications have been reviewed Active Medications PHYSICAL EXAMINATION: GENERAL: The patient is alert and oriented x4, Well developed, well nourished. HEENT: Pupils are round and equally reacting to light. EOMI. no scleral icterus. No conjunctival pallor. Normocephalic, atraumatic. No pharyngeal erythema. No thyromegaly. CARDIOVASCULAR: S1 and S2 muffled PULMONARY: diminished breath sounds bilaterally with no wheezing or rhonchi noted. ABDOMEN: soft. Nontender on exam. obese. non-distended, normoactive bowel sounds. No palpable organomegaly. MUSCULOSKELETAL: No joint swelling or deformity. EXTREMITIES: No cyanosis, clubbing, or pedal edema. NEUROLOGICAL: Gross neurological examination did not reveal any focal deficits. Diffuse weakness SKIN: No rashes. Assessment: Possible sepsis with primary, undetermined Change in mental status, metabolic, rule out encephalitis Possible PRES on the MRI Pancytopenia secondary to multiple myeloma Brisa albicans on the sputum History pulmonary embolism History of coronary artery disease Hyperlipidemia GI prophylaxis DVT prophylaxis Full code Plan: Recommend to continue with current medications and management in the ICU with multiple medical consultations following. Patient is maintained on mechanical ventilation and FiO2 is currently 35% with a PEEP of 8 and maintaining adequate oxygenation. Patient was evaluated by interventional radiology with multiple attempts at LP puncture although unsuccessful and intensive is recommending transfer to tertiary treatment center and has been accepted at [facility] currently awaiting a bed assignment Hemoglobin 6.3 today and will receive a unit of PRBCs as well as platelets being 12 and awaiting receive a unit of platelets as well. Patient does have chronic kidney disease and current creatinine is 2.68 and continues with an indwelling Lee catheter. Patient is maintained on tube feedings and tolerating thus far Overall prognosis remains extremely poor and guarded at this time and CODE STATUS was addressed and family wishing to remain full code. at the bedside and updated on transfer and currently awaiting a bed Due to multiple convex medical issues, prognosis is extremely guarded once again. Discussed with the transfer team at [facility] today and there are no beds available and will call the unit once a bed is available The impression and plan of care has been dictated by Emma Bauer, nurse practitioner as directed. Dr. Noam MD I have performed a history and examination and MDM of this patient, discussed the same with the dictator, and agree with the dictator's assessment and plan as written ,documented as a scribe. Based on total visit time, I have performed more than 50% of the visit. Any additional findings or plans will be noted. Objective - Vital Signs Vital signs: Vital Signs Temp 98.5 F 01/21/23 12:11 Pulse 91 01/21/23 13:00 Resp 21 01/21/23 13:00 BP 148/85 01/21/23 13:00 Pulse Ox 99 01/21/23 13:00 FiO2 35 01/21/23 13:00 Intake & Output 01/20/23 01/21/23 01/21/23 18:59 06:59 18:59 Intake Total 0344.418 9142.667 1384 Output Total 2395 1952 865 Balance -570.667 266.667 519 Weight 95.4 kg Intake: IV 371 276 261 0.9 Sodium Chloride 210 240 140 Lacosamide IV 50 mg In 50 Sodium Chloride 0.9% 50 ml @ 100 mls/hr IVPB BID [facility] Rx#:[id number] Piperacillin-Tazobactam 3 75 100 .375 gm In Sodium Chloride 0.9% 100 ml @ 25 mls/hr IVPB Q8H [facility] Rx#: [id number] Pressure Bag (0.9 Sodium 36 36 21 Chloride) Intake, IV Titration 15.333 34.667 Amount Clevidipine Butyrate 25 15.333 34.667 mg In Empty Bag 1 bag @ 1 MG/HR 2 mls/hr IV .Q24H [facility] Rx#:[id number] Tube Feeding 708 708 413 Blood Product 310 Platelet Pheresis Pas 0 Psoralen Unit [id number] Rc As-1 Unit 310 [id number] Other 730 1200 400 Output: Urine 2395 1950 865 Stool 2 Other: Voiding Method Indwelling Catheter Indwelling Catheter Indwelling Catheter # Bowel Movements 1 ABP, PAP, CO, CI - Last Documented Arterial Blood Pressure 168/69 - Labs CBC & Chem 7: 01/21/23 05:20 01/21/23 05:20 Labs: Abnormal Lab Results - Last 24 Hours (Table) 01/19/23 01/20/23 01/21/23 Range/Units 06:59 23:42 01:27 WBC (3.8-10.6) k/uL RBC (4.30-5.90) m/uL Hgb (13.0-17.5) gm/dL Hct (39.0-53.0) % RDW (11.5-15.5) % Plt Count (150-450) k/uL ABG pO2 (83-108) mmHg ABG O2 Saturation (94-97) % Chloride (98-107) mmol/L Carbon Dioxide (22-30) mmol/L Creatinine (0.66-1.25) mg/dL Glucose (74-99) mg/dL POC Glucose (mg/dL) 130 H 125 H (70-110) mg/dL Calcium (8.4-10.2) mg/dL Crossmatch See Detail 01/21/23 01/21/23 01/21/23 Range/Units 05:20 05:20 06:29 WBC 1.4 L* (3.8-10.6) k/uL RBC 2.08 L (4.30-5.90) m/uL Hgb 6.3 L* (13.0-17.5) gm/dL Hct 18.4 L* (39.0-53.0) % RDW 18.8 H (11.5-15.5) % Plt Count 12 L* D (150-450) k/uL ABG pO2 134 H (83-108) mmHg ABG O2 Saturation 99.6 H (94-97) % Chloride 116 H (98-107) mmol/L Carbon Dioxide 21 L (22-30) mmol/L Creatinine 2.68 H (0.66-1.25) mg/dL Glucose 103 H (74-99) mg/dL POC Glucose (mg/dL) (70-110) mg/dL Calcium 7.3 L (8.4-10.2) mg/dL Crossmatch 01/21/23 Range/Units 13:09 WBC (3.8-10.6) k/uL RBC (4.30-5.90) m/uL Hgb (13.0-17.5) gm/dL Hct (39.0-53.0) % RDW (11.5-15.5) % Plt Count (150-450) k/uL ABG pO2 (83-108) mmHg ABG O2 Saturation (94-97) % Chloride (98-107) mmol/L Carbon Dioxide (22-30) mmol/L Creatinine (0.66-1.25) mg/dL Glucose (74-99) mg/dL POC Glucose (mg/dL) 115 H (70-110) mg/dL Calcium (8.4-10.2) mg/dL Crossmatch Microbiology - Last 24 Hours (Table) 01/19/23 16:19 Gram Stain - Final Sputum Sputum Culture - Final Brisa albicans 01/19/23 14:39 Urine Culture - Final Urine,Catheterized 01/19/23 15:05 Blood Culture - Preliminary Blood No Growth after 24 hours
[2023-01-21 17:46] LABS: Glucose,Whole Blood 116 mg/dL (70-110)
[2023-01-21] MEDS: CALCIUM CARBONATE 500 MG CHEWABLE PO SCH (20:11)
[2023-01-21] MEDS: GABAPENTIN 300 MG CAP PO SCH (20:11)
[2023-01-21] MEDS: CLEVIDIPINE BUTYRATE 25 MG in EMPTY BAG 1 BAG IV SCH (20:12)
[2023-01-21 23:42] LABS: Glucose,Whole Blood 89 mg/dL (70-110)
[2023-01-22] MEDS: PIPERACILLIN-TAZOBACTAM 3.375 GM in SODIUM CHLORIDE 0.9% 100 ML IVPB SCH (00:45)
[2023-01-22 02:58] VITALS: BP 122/69
[2023-01-22] MEDS: NOREPINEPHRINE 8 MG in SODIUM CHLORIDE 0.9% 250 ML IV SCH (04:09)
[2023-01-22 04:37] LABS: Glucose,Whole Blood 105 mg/dL (70-110)
[2023-01-22 05:03] LABS: Anisocytosis Slight; HCT 23.8 % (39.0-53.0); HGB 8.2 gm/dL (13.0-17.5); MCH 30.3 pg (25.0-35.0); MCHC 34.4 g/dL (31.0-37.0); MCV 88.2 fL (80.0-100.0); Mean Platelet Volume 7.4; Poikilocytosis Slight; RDW 18.2 % (11.5-15.5)
[2023-01-22 05:08] LABS: Platelet Count 11 k/uL (150-450); WBC 1.4 k/uL (3.8-10.6)
[2023-01-22] MEDS: ACYCLOVIR SODIUM 900 MG in SODIUM CHLORIDE 0.9% 250 ML IVPB SCH (05:19)
[2023-01-22 05:51] LABS: Potassium 3.8 mmol/L (3.5-5.1)
[2023-01-22 05:57] LABS: ABG Base Excess -8.6 mmol/L; ABG HCO3 16 mmol/L (21-25); ABG PCO2 27 mmHg (35-45); ABG PH 7.39 (7.35-7.45); ABG PO2 113 mmHg (83-108); ABG TCO2 17 mmol/L (19-24); Allen Test Performed? Yes
[2023-01-22 05:59] LABS: Band Neutrophils % 2 %; Eosinophils # (M) 0.15 k/uL (0-0.7); Lymphocytes # (M) 0.22 k/uL (1.0-4.8); Neutrophils % (M) 64 %; Nucleated Red Blood Cells 2 /100 WBC (0-0); RBC Morphology Normal; Total Cells Counted 100
[2023-01-22 06:12] LABS: ABG Oxygen Saturation 99.2 % (94-97)
[2023-01-22 07:10] VITALS: PULSE 82; RESP 14; TEMP 99.2
--- NOTE | 2023-01-22 08:18 | P.PN ---
Subjective Progress Note Date: 01/21/23 01/21/2023: Patient was seen for a follow-up. Patient is currently on Precedex 2 mg per hour. Patient appears severely encephalopathic. Patient not responding to painful stimuli. 01/20/2023: Patient was seen for a follow-up. Patient is intubated, sedated with Precedex 2 mg per hour. Patient continues to be severely encephalopathic. No obvious facial twitching noted. The nurse has noted when patient was repositioned, he slightly opened his eyes but did not track or make any eye contact. As per nurse report, once when he was coughing while suctioning, patient had some decerebrate posturing. 01/19/2023: Patient initially seen by Dr. Harsha Kern. Please refer to his note for details. Patient is a 67-year-old male, who has history of multiple myeloma and has been admitted for confusional state. Patient's brain MRI was consistent with PRES. He had an EEG performed, which was negative for any epileptiform activity, but because of worsening confusion, patient had repeat EEG performed today. Lumbar puncture could not be performed because he has thrombocytopenia and fever only at presentation of unknown origin. Patient is on acyclovir, vancomycin. Per nursing report, patient has some movements in both lips. Patient's and patient's sons were present today. They mention that when he is moved for repositioning, he opens his eyes. No other seizure activity noticed. Some of the workup during this hospital visit consisted of: On initial presentation the patient had a fever of 102.1 max currently it's the resolved Hemoglobin was as low as a 6.2 and currently 3.4 His creatinine is 4.07 currently is 2.7 glucose had episodes as low as 65 currently 71. Then yesterday was low as 51. Ionized calcium is 6.0 He could've the head ordered by the primary team is reported as age-related atrophy and chronic small vessel ischemic change without acute intracranial process seen at this time. I personally reviewed the CT and I agree there is no acute subacute ischemia, there is no bleed. MR the brain is reported as symmetrical abnormal increased signal in the occipital lobe and posterior parietal lobe and the rodriguez and white matter. This is predominantly white matter abnormality and could relate to microvascular ischemia. I do not suspect demyelinating disease. I personally reviewed the MRI and the patient has hyperintensity on the flare over the occipital parietal but must drastically improved compared to 12/30/[address] of the head is reported as no acute hemorrhage, hydrocephalus or mass effect. CT cervical spine is reported as no acute fracture or subluxation. 5 mm sclerotic lesion left articular process of C4, nonspecific. Possibly a bone island. Objective - Vital Signs Vital signs: Vital Signs Temp 98.6 F 01/21/23 16:00 Pulse 95 01/21/23 17:00 Resp 23 01/21/23 17:00 BP 145/80 01/21/23 17:00 Pulse Ox 99 01/21/23 17:00 FiO2 35 01/21/23 17:00 Intake & Output 01/20/23 01/21/23 01/21/23 18:59 06:59 18:59 Intake Total 8038.570 5161.667 2112 Output Total 2395 1952 1315 Balance -570.667 266.667 797 Weight 95.4 kg Intake: IV 371 276 353 0.9 Sodium Chloride 210 240 220 Lacosamide IV 50 mg In 50 Sodium Chloride 0.9% 50 ml @ 100 mls/hr IVPB BID [facility] Rx#:[id number] Piperacillin-Tazobactam 3 75 100 .375 gm In Sodium Chloride 0.9% 100 ml @ 25 mls/hr IVPB Q8H [facility] Rx#: [id number] Pressure Bag (0.9 Sodium 36 36 33 Chloride) Intake, IV Titration 15.333 34.667 Amount Clevidipine Butyrate 25 15.333 34.667 mg In Empty Bag 1 bag @ 1 MG/HR 2 mls/hr IV .Q24H [facility] Rx#:[id number] Tube Feeding 708 708 649 Blood Product 310 Platelet Pheresis Pas 0 Psoralen Unit [id number] Rc As-1 Unit 310 [id number] Other 730 1200 800 Output: Urine 2395 1950 1315 Stool 2 Other: Voiding Method Indwelling Catheter Indwelling Catheter Indwelling Catheter # Bowel Movements 1 ABP, PAP, CO, CI - Last Documented Arterial Blood Pressure 148/62 - Exam Patient is intubated. His pupils are 4 mm, reacting to 3 mm briskly. Oculocephalics are absent. Tone is equal bilaterally. No obvious seizure-like activity noted. No facial twitching noted. Patient has moderate peripheral edema. He has possible cellulitis left lower pineda region, improving. No response to painful stimuli. - Labs CBC & Chem 7: 01/22/23 04:30 01/22/23 04:30 Labs: Abnormal Lab Results - Last 24 Hours (Table) 01/19/23 01/20/23 01/21/23 Range/Units 06:59 23:42 01:27 WBC (3.8-10.6) k/uL RBC (4.30-5.90) m/uL Hgb (13.0-17.5) gm/dL Hct (39.0-53.0) % RDW (11.5-15.5) % Plt Count (150-450) k/uL Neutrophils # (1.3-7.7) k/uL Lymphocytes # (1.0-4.8) k/uL ABG pO2 (83-108) mmHg ABG O2 Saturation (94-97) % Chloride (98-107) mmol/L Carbon Dioxide (22-30) mmol/L Creatinine (0.66-1.25) mg/dL Glucose (74-99) mg/dL POC Glucose (mg/dL) 130 H 125 H (70-110) mg/dL Calcium (8.4-10.2) mg/dL Crossmatch See Detail 01/21/23 01/21/23 01/21/23 Range/Units 05:20 05:20 06:29 WBC 1.4 L* (3.8-10.6) k/uL RBC 2.08 L (4.30-5.90) m/uL Hgb 6.3 L* (13.0-17.5) gm/dL Hct 18.4 L* (39.0-53.0) % RDW 18.8 H (11.5-15.5) % Plt Count 12 L* D (150-450) k/uL Neutrophils # 1.0 L (1.3-7.7) k/uL Lymphocytes # 0.2 L (1.0-4.8) k/uL ABG pO2 134 H (83-108) mmHg ABG O2 Saturation 99.6 H (94-97) % Chloride 116 H (98-107) mmol/L Carbon Dioxide 21 L (22-30) mmol/L Creatinine 2.68 H (0.66-1.25) mg/dL Glucose 103 H (74-99) mg/dL POC Glucose (mg/dL) (70-110) mg/dL Calcium 7.3 L (8.4-10.2) mg/dL Crossmatch 01/21/23 01/21/23 Range/Units 13:09 17:45 WBC (3.8-10.6) k/uL RBC (4.30-5.90) m/uL Hgb (13.0-17.5) gm/dL Hct (39.0-53.0) % RDW (11.5-15.5) % Plt Count (150-450) k/uL Neutrophils # (1.3-7.7) k/uL Lymphocytes # (1.0-4.8) k/uL ABG pO2 (83-108) mmHg ABG O2 Saturation (94-97) % Chloride (98-107) mmol/L Carbon Dioxide (22-30) mmol/L Creatinine (0.66-1.25) mg/dL Glucose (74-99) mg/dL POC Glucose (mg/dL) 115 H 116 H (70-110) mg/dL Calcium (8.4-10.2) mg/dL Crossmatch Microbiology - Last 24 Hours (Table) 01/19/23 15:05 Blood Culture - Preliminary Blood No Growth after 48 hours 01/19/23 16:19 Gram Stain - Final Sputum Sputum Culture - Final Brisa albicans 01/19/23 14:39 Urine Culture - Final Urine,Catheterized Assessment and Plan Assessment: Also mental status seems due to metabolic encephalopathy. Has fever of unknown origin (fever was only at presentation and that resolved). Rule out ?en cephalitis. Also has transient hypogylecmia (as low as 50's), elevated ionized calcium--glucose improved. History of seizures according to the he has subtle jerking of upper extremities (in past had left facial twitching and myoclonic jerks) History of Posterior reversible encephalopathy syndrome on MRI of the brain of 12/29/2022 admission and improving on this current MRI. Acute on chronic kidney insufficiency History of multiple myeloma and had chemotherapy Pancytopenia History of pulmonary embolism on Eliquis History of a T12 fracture with multiple vertebral fracture due to multiple myeloma History of coronary artery disease Dyslipidemia Plan: Patient is on Keppra Keppra to 500mg bid and Dr. Kern has also added Vimpat 50 mg one tablet twice a day (started on 01/12/23) especially since according to the he has subtle jerks of the upper extremity. Prolonged, 2.5 hour EEG today. It is an abnormal 2.5 hour video EEG. No clinical or electrographic seizures were recorded. No epileptiform activity was present. The major finding of this EEG was frequent at times periodic and semi-periodic triphasic waves. Triphasic waves are not epileptiform in nature, but can be seen in setting of metabolic or anoxic encephalopathy. The diffuse theta delta a brain slowing mentioned above is not epileptiform in nature. In combination, these findings indicate moderate to severe diffuse cerebral d ysfunction as may be seen in toxic metabolic encephalopathy. Repeat EEG performed 01/19/2023 was also abnormal, with background slowing of moderate to severe degree. Also presence of frontally predominant high amplitude waves, which appears triphasic. Does not appear clearly epileptiform. Continue same dose of seizure medications. ID team is on board for the fever. Lumbar puncture is unsuccessful. Pain specialist will not perform Lumbar Puncture because of thrombocytopenia. Is on Acylovir, Acylovir and Zosyn. I.D. is on board. We'll defer the rest of the medical measure the primary team ICU staff recommend patient to be transferred to higher level of care. Condition is very guarded. Patient is critically sick. Patient has been accepted at [facility]. Awaiting bed availability. We will check CT head in the morning, if patient does not get transferred overnight. Discussed with patient's nurse and patient's family in detail.
--- NOTE | 2023-01-22 09:24 | XR ---
EXAMINATION TYPE: XR chest 1V portable DATE OF EXAM: 01/22/2023 COMPARISON: 01/22/2020 HISTORY: SOB, Follow Up FINDINGS: Indwelling tubes and catheters are unchanged. No change in bibasilar opacities. Stable appearance of the cardio-mediastinal structures at this time. Pleural effusion unchanged. IMPRESSION: 1. Stable portable chest. Clinical correlation and follow up until resolution is recommended.
--- NOTE | 2023-01-24 18:44 | P.DS ---
Providers Date of admission: 01/08/23 22:56 Expected date of discharge: 01/22/23 Attending physician: Donato Santacruz Consults: 01/09/23 00:24 Consult Physician Routine Consulting Provider: Francois Miranda Consult Reason/Comments: fever, source unknown Do you want consulting provider notified?: Yes 01/09/23 11:54 Consult Physician Routine Consulting Provider: Luis A Mcgowan Consult Reason/Comments: malignancy Do you want consulting provider notified?: Yes 01/09/23 12:12 Consult Physician Routine Consulting Provider: Horacio Alston Consult Reason/Comments: crf Do you want consulting provider notified?: Yes 01/12/23 11:46 Consult Physician Routine Consulting Provider: Harsha Kern Consult Reason/Comments: altered menstal status, recent encephalopathy Do you want consulting provider notified?: Yes Primary care physician: Anders Hankins Hospital Course: Final diagnosis Possible sepsis with primary, undetermined Change in mental status, metabolic, rule out encephalitis Possible PRES on the MRI Pancytopenia secondary to multiple myeloma Brisa albicans on the sputum History pulmonary embolism History of coronary artery disease Hyperlipidemia GI prophylaxis DVT prophylaxis Full code Discharge disposition Patient is being transferred in a stable condition with guarded prognosis to [facility]. Patient will follow-up with in the outpatient set ting upon discharge. Patient is to continue with hemodialysis as scheduled. Total time taken is greater than 35 minutes. Hospital course This is a 67-year-old male who was recently admitted with possible sepsis also concerned with PRES on the MRI with multiple medical consultations following and patient remains in the ICU being closely monitored on mechanical ventilation. FiO2 is 35% with a PEEP of 5 and also is maintained off of sedation. Patient with multiple attempts at lumbar puncture an unsuccessful with consultations recommending transfer to tertiary treatment center. Patient has been accepted at [facility] by Dr. Gipson as well as Dr. Jluis Lemus of the ICU and currently awaiting a bed assignment. Patient is maintained on antibiotics and cultures thus far have been negative. 01/22/2023 Patient has received about at [facility] and will be transferred in critical condition and stable on mechanical ventilation. Please refer to other consultation notes for further HPI including pulmonary data warehousing engineer. Please refer to medication reconciliation sheet for a list of medications. The impression and plan of care has been dictated by Emma Bauer, Nurse Practitioner as directed. Dr. Noam MD I have performed a history and examination and MDM of this patient, discussed the same with the dictator, and agree with the dictator's assessment and plan as written ,documented as a scribe. Based on total visit time, I have performed more than 50% of the visit. Patient Condition at Discharge: Poor Plan - Discharge Summary Discharge Rx Participant: No New Discharge Prescriptions: No Action Sodium Bicarbonate Tab 650 mg PO BID Cholecalciferol [Vitamin D3 (25 Mcg = 1000 Iu)] 25 mcg PO DAILY Calcium Carbonate [Calcium] 600 mg PO HS Gabapentin 300 mg PO HS Acyclovir [Zovirax] 400 mg PO BID Apixaban [Eliquis] 2.5 mg PO BID oxyCODONE HCL [oxyCODONE HCL (IR)] 10 mg PO Q4H PRN #18 tab PRN Reason: Pain levETIRAcetam [Keppra] 750 mg PO BID Discharge Medication List Acyclovir [Zovirax] 400 mg PO BID 07/07/22 [History] Apixaban [Eliquis] 2.5 mg PO BID 11/30/22 [History] Calcium Carbonate [Calcium] 600 mg PO HS 11/30/22 [History] Cholecalciferol [Vitamin D3 (25 Mcg = 1000 Iu)] 25 mcg PO DAILY 11/30/22 [History] Sodium Bicarbonate Tab 650 mg PO BID 11/30/22 [History] oxyCODONE HCL [oxyCODONE HCL (IR)] 10 mg PO Q4H PRN #18 tab 01/02/23 [Rx] Gabapentin 300 mg PO HS 01/08/23 [History] levETIRAcetam [Keppra] 750 mg PO BID 01/08/23 [History] Follow up Appointment(s)/Referral(s): Anders Hankins MD [Primary Care Provider] - 1-2 days Activity/Diet/Wound Care/Special Instructions: Patient will be going to [facility] and has been accepted by Dr. Lemus as well as Dr. Gipson of in the medical ICU once a bed becomes available Discharge Disposition: TRANSFER TO SHORT TERM HOSP
== END 2023-01-22 07:15 | disposition short-term general hospital (02) | DRG 871 ==
LOC: EC 18:13 → 4SSUR 22:56 → 2SICU 01-16 15:24
PROVIDERS: ADMIT Hospitalist; ATTEND Hospitalist
PROC: 30233N1 Transfusion of Nonautologous Red Blood Cells into Peripheral Vein, Percutaneous Approach (ICD-10-PCS; 2023-01-11)
PROC: 02HV33Z Insertion of Infusion Device into Superior Vena Cava, Percutaneous Approach (ICD-10-PCS; principal; 2023-01-16)
PROC: 03HY32Z Insertion of Monitoring Device into Upper Artery, Percutaneous Approach (ICD-10-PCS; 2023-01-16)
PROC: 0BH18EZ Insertion of Endotracheal Airway into Trachea, Via Natural or Artificial Opening Endoscopic (ICD-10-PCS; 2023-01-16)
PROC: 5A1945Z Respiratory Ventilation, 24-96 Consecutive Hours (ICD-10-PCS; 2023-01-16)
PROC: 6A551Z2 Pheresis of Platelets, Multiple (ICD-10-PCS; 2023-01-16)
PROC: 30233R1 Transfusion of Nonautologous Platelets into Peripheral Vein, Percutaneous Approach (ICD-10-PCS; 2023-01-16)
PROC: 30233K1 Transfusion of Nonautologous Frozen Plasma into Peripheral Vein, Percutaneous Approach (ICD-10-PCS; 2023-01-16)
DX: A41.9 Sepsis, unspecified organism (principal); D61.810 Antineoplastic chemotherapy induced pancytopenia; J96.01 Acute respiratory failure with hypoxia; J69.0 Pneumonitis due to inhalation of food and vomit; G93.41 Metabolic encephalopathy; I67.83 Posterior reversible encephalopathy syndrome; D84.9 Immunodeficiency, unspecified; Z94.84 Stem cells transplant status; N17.9 Acute kidney failure, unspecified; Z99.11 Dependence on respirator [ventilator] status; E87.0 Hyperosmolality and hypernatremia; M84.58XA Pathological fracture in neoplastic disease, other specified site, initial encounter for fracture; C90.00 Multiple myeloma not having achieved remission; N18.4 Chronic kidney disease, stage 4 (severe); G62.0 Drug-induced polyneuropathy; I44.0 Atrioventricular block, first degree; E78.5 Hyperlipidemia, unspecified; G89.29 Other chronic pain; M54.50 Low back pain, unspecified; R60.0 Localized edema; R26.9 Unspecified abnormalities of gait and mobility; I25.10 Atherosclerotic heart disease of native coronary artery without angina pectoris; T45.1X5A Adverse effect of antineoplastic and immunosuppressive drugs, initial encounter; K29.00 Acute gastritis without bleeding; B37.9 Candidiasis, unspecified; E83.52 Hypercalcemia; R25.3 Fasciculation; Z53.8 Procedure and treatment not carried out for other reasons; Z20.822 Contact with and (suspected) exposure to COVID-19; Z87.891 Personal history of nicotine dependence; Z86.711 Personal history of pulmonary embolism; Z98.61 Coronary angioplasty status; Z88.1 Allergy status to other antibiotic agents; Z79.899 Other long term (current) drug therapy; Z79.01 Long term (current) use of anticoagulants
CPT/HCPCS: 36415; 62328; 70450; 70551; 71045; 71046; 72125; 74176; 80048; 80053; 80202; 81001; 82140; 82330; 82784; 82805; 83605; 83690; 83735; 84132; 84145; 85025; 85027; 85384; 85610; 85730; 86140; 86694; 86695; 86696; 86850; 86900; 86901; 86920; 87040; 87070; 87086; 87205; 87324; 87635; 87636; 93005; 94002; 94003; 94760; 95713; 95816; 95822; 96361; 96365; 99285